=== PATIENT | female | born 1945 | race Caucasian/White ===

== ENCOUNTER 2017-12-09 14:17 | Emergency (ER) | payer MEDICARE, SELFPAY ==
[2017-12-09 14:19] VITALS: BP 162/78; PULSE 71; RESP 16; TEMP 36.1; O2SAT 98; BMI 29.1
[2017-12-09] MEDS: 0.9% Normal Saline 1,000 ML 1000 ML IV (14:34)
[2017-12-09] MEDS: Ondansetron 4 MG/2 ML Vial IV (14:35)
--- NOTE | 2017-12-09 15:16 | ED.DCSUM_ITS ---
- ER Visit Summary Date of Service: 12/09/17 Chief Complaint: Cramping abdominal pain with nausea History of Present Illness: The patient is a 72 F who states she developed abdominal cramping pain with nausea and vomiting ?1 Tuesday afternoon at work. She mixed chicken with pineapple in a sauce. Shortly after eating the chicken with pineapple she had cramping abdominal pain and vomited once. She states she remained nauseous the entire evening. she felt better had cottage cheese and bland foods. Today she felt better and went to work. When she had lunch she had increased nauseousness without vomiting. Last bowel movement was this morning and normal. She denies fever, chills night sweats. She denies dysuria, frequency, urgency or hematuria. She denies any cardiac or respiratory symptoms. Physical Examination: Blood pressure is elevated 162/78. HEENT exam is remarkable dry mucosa. Heart is regular without murmur, gallop or rub. S1 and S2 are normal. Lungs are clear to auscultation with good movement of air bilaterally. Abdomen soft nontender with no palpable pulsatile mass. There is no abdominal bruit. There is no skin lesions or evidence of trauma. There is no CVA tenderness noted. Neuro exam is nonfocal. Test Results: None Emergency Department Course and Treatment: IV was established and she was hydrated with normal saline. She was given Zofran for her nausea. She was reassessed at 07/15/2004. She reports improvement. She was given Bentyl for her cramping pain. She was reassessed at 1613. She is sitting up smiling in no distress. She is passed p.o. challenge. She reports her nausea and cramping pain is better. Treatment Plan: Prescription for Zofran and Bentyl Disposition: Discharged to home in stable and improved condition Impression: Cramping abdominal pain with nausea and vomiting This note was generated with [employer] dictation software. It may contain incorrect words, spelling, and punctuation that were not noted in review of the chart prior to signing ED Disposition - Plan for ED Patient: Disposition: Home or Assisted Living Chief Complaint: Abd Pain Instructions: ED Nausea Vomiting Prescriptions: Ondansetron [Zofran Odt] 4 mg PO Q8H PRN PRN #5 tab PRN Reason: Nausea Dicyclomine HCl [Bentyl] 20 mg PO TIDAC #10 cap Referrals: Care Physician,No Primary [Primary Care Provider] - Doctor,Your [STAFF PHYSICIAN] - 3-5 Days if not improving
[2017-12-09] MEDS: Dicyclomine 10 MG Capsule 20 MG PO (15:35)
[2017-12-09 16:42] VITALS: BP 154/86; PULSE 69; RESP 18; O2SAT 99
== END 2017-12-09 16:30 | disposition home or self-care (01) ==
PROVIDERS: Emergency Provider Emergency Medicine
DX: R10.9 Unspecified abdominal pain (principal); R11.2 Nausea with vomiting, unspecified; E66.9 Obesity, unspecified; E86.0 Dehydration; I10 Essential (primary) hypertension; E78.00 Pure hypercholesterolemia, unspecified; J44.9 Chronic obstructive pulmonary disease, unspecified; E03.9 Hypothyroidism, unspecified; Z68.29 Body mass index [BMI] 29.0-29.9, adult; Z79.899 Other long term (current) drug therapy
CPT/HCPCS: 96361; 96374; 99283; J7030; A4216; J2405

== ENCOUNTER → 2018-01-03 09:18 | Outpatient (CLI) | payer MEDICARE, OTHER, SELFPAY ==
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
== END ==
PROVIDERS: Visit Provider Anesthesiology Pain Medicine
DX: M54.2 Cervicalgia (principal)
CPT/HCPCS: 72040

== ENCOUNTER → 2018-02-28 13:08 | Outpatient (CLI) | payer MEDICARE, OTHER, SELFPAY ==
[2018-03-01 07:14] LABS: CREATININE FINGERSTICK 0.44 mg/dL (0.55-1.02)
== END ==
DX: R91.1 Solitary pulmonary nodule (principal)
CPT/HCPCS: 71260; Q9967

== ENCOUNTER 2018-03-13 18:09 | Emergency (ER) | payer MEDICARE, OTHER, SELFPAY ==
[2018-03-13 18:10] VITALS: BP 171/86; PULSE 75; RESP 18; TEMP 37.1; O2SAT 95; BMI 29.3
--- NOTE | 2018-03-13 18:28 | ED.VISSUMM ---
- ER Visit Summary Date of Service: 03/13/18 Chief Complaint: Bilateral ankle swelling History of Present Illness: The patient is a 72 F who has bilateral ankle swelling. She has had this for 3 days. 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 She used to wear ADRY hose but she think she is allergic to them so she has been wearing it. She has a rash on the lower parts of the legs were her socks were. She denies any chest pain or shortness of breath. She denies any history of any kidney problems in the past. Denies any fevers. She has been using hydrocortisone cream for the rash on her legs. She states that it is improving. Physical Examination: Vital signs reviewed. HEENT exam unremarkable. Heart is regular rate and rhythm without murmurs. Lungs are clear to auscultation. Abdomen is soft and nontender. Extremities reveal 1+ edema to the lower tibial area. Skin exam reveals areas of dermatitis around the ankles to the mid tibia area where the sock line demarcates the end. Neurologic exam normal. Test Results: [] Emergency Department Course and Treatment: The patient likely has edema from the heat as well as standing on her legs all day. I will give her 5 days of Lasix to help with the edema. She will keep her legs elevated and use ice. She will continue hydrocortisone cream. She was wondering what the substance was in the succinate her allergic. I told her that it is hard to tell when she needs to find a brand that will not irritate her skin. She will follow-up with her PCP next week Treatment Plan: [] Disposition: Discharge Impression: Pedal edema, dermatitis This note was generated with [employer] dictation software. It may contain incorrect words, spelling, and punctuation that were not noted in review of the chart prior to signing ED Disposition - Plan for ED Patient: Chief Complaint: Edema Referrals: [facility] Doctor,Out of [Primary Care Provider] -
--- NOTE | 2018-03-13 18:30 | ED.DEP ---
ED Disposition - Plan for ED Patient: Disposition: Home or Assisted Living Chief Complaint: Edema Instructions: ED Leg Swelling Bilateral Prescriptions: Furosemide [Lasix] 20 mg PO DAILY #4 tab Referrals: [facility] Doctor,Out of [Primary Care Provider] -
[2018-03-13] MEDS: Furosemide 20 MG Tablet PO (18:40)
== END 2018-03-13 18:59 | disposition home or self-care (01) ==
LOC: ED 18:52
PROVIDERS: Emergency Provider Emergency Medicine
DX: R60.9 Edema, unspecified (principal); L30.9 Dermatitis, unspecified; I10 Essential (primary) hypertension; E78.00 Pure hypercholesterolemia, unspecified; J45.909 Unspecified asthma, uncomplicated; E03.9 Hypothyroidism, unspecified
CPT/HCPCS: 99283

== ENCOUNTER 2018-07-18 12:35 | Outpatient (RCR) | payer MEDICARE, SELFPAY ==
--- NOTE | 2018-07-19 13:12 | HP.OTFCE_ITS ---
HP OT Functional Capacity Eval - Task Lift Floor (Occasional 1-33% of Day): 11 Floor (Frequent 34-66% of Day): Negligible Floor (Constant 67-100% of Day): Negligible Floor PDL: Sedentary Knee (Occasional 1-33% of Day): 11 Knee (Frequent 34-66% of Day): Negligible Knee (Constant 67-100% of Day): Negligible Knee PDL: Sedentary Waist (Occasional 1-33% of Day): 11 Waist (Frequent 34-66% of Day): Negligible Waist (Constant 67-100% of Day): Negligible Waist PDL: Sedentary Shoulder (Occasional 1-33% of Day): 11 Shoulder (Frequent 34-66% of Day): Negligible Shoulder (Constant 67-100% of Day): Negligible Shoulder PDL: Sedentary Overhead (Occasional 1-33% of Day): 6 Overhead (Frequent 34-66% of Day): Negligible Overhead (Constant 67-100% of Day): Negligible Overhead PDL: Sedentary Comments: Increased pain with all lifts lower back 04/19. - Work Activity/Posture Bending: Occasional Ability (1-33% of day) Squatting: Occasional Ability (1-33% of day) Kneeling: Occasional Ability (1-33% of day) Reaching out: Frequent Ability (34-66% of day) Reaching up: Frequent Ability (34-66% of day) Sitting: Frequent Ability (34-66% of day) Walking: Occasional Ability (1-33% of day) Standing: Occasional Ability (1-33% of day) - Reference Duration Sedentary Sedentary Light Light Light Medium Medium Medium Heavy Very Heavy Heavy Occasional (0-33% of day) Frequent (34-66% of day) Constant (67-100% of day) 10 # Negligible Negligible 15 # 8 # Negligible 20 # 10# Negli. 35 # 18 # 7 # 50 # 25 # 10 # 75 # 100 # >100 # 38 # 50 # >50 # 15 # 20 # >20 # - Patient Information Height: 5 ft 6 in Weight:: 77.111 kg Hand Dominance: Right - Medical History Medical History Including Restrictions: Pt states the following PMHx: spinal stenosis, unspecified bulged discs, HTN, high blood pressure, thyroid disorder, back sx lower back 2013, back spurs, arthritis in lower back, severe allergiess, asthma, bilateral carpel tunnel releases, pinched nerve in lower back. - Diagnoses Diagnoses: Pt states the following PMHx: spinal stenosis, lumbar bulged disc, HTN, high blood pressure, thyroid disorder, back sx lower back 2013, back spurs, arthritis in lower back, severe allergiess, asthma, bilateral carpel tunnel releases, pinched nerve in lower back. - Symptoms Symptoms: Pt reports: pain lower back aching, throbbing. - Pain Pain: Pt reports, lower back pain ranges from 8-10 . Pt states takes shots to decrease pain in lower back. Pt states has been taking shots to decrease pain in her lower back for years. Pt states takes pain pills 3x/day. - Work History Work History: Work history over the past 10 years= [employer] 2008-present. 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 She states she takes her breaks at the [employer] close to the doors where she works so she doesn't have to walk to the other end of the building where the break room is secondary to difficult and painful to walk all the way to the back without having to sit frequently to take pressure off her back. Pt works 3 days a wk. - ADLS ADLS: Pt lives alone in one [facility] ([facility]) apartment. No [address] eps to enter. Independent with BADLs/IADLs. Bathroom setup includes tub/shower combo, grab bars, HHS. RTS with handles. Drives. Laundry in different building, has to carry laundry basket short distance to building. Pt states uses small laundry basket and only carries smaller loads of laundry to laundromat. Pt states she completes all her meal prep and does her own cleaning, but it hurts her back to run sweeper and dust with extra time needed and many seated breaks needed. No animals to care for. - Physical Examination ROM: BUE WFL, BLE WFL Strength: BUE 4/5 BLE 3+/5, lower back pain 7/10 while completing BLE MMT. Right Gasoline Engine Assembler Strength Average: 47.00 Left Gasoline Engine Assembler Strength Average: 44.33 Right Lateral Pinch Average: 10.00 Left Lateral Pinch Average: 7.33 Right Tripod Pinch Average: 7.66 Left Tripod Pinch Average: 6.00 Sensation: Pt reports bilateral foot tingling ankles down to toes, gets worse around 5pm on daily. Fine Motor: No fine motor concerns per pt. Balance: No falls in the past three months. Pt reports has std canes, quad cane and walker avaialble if needed. Pt demo good righting reactions while standing during evaluation. No loss of balance noted. - Non Material Handling Activities Bending: Pt able to complete bending 3x, 10x with bending 7-8 inches from floor unable to bend all the way down to floor and unable to complete 10 fast seocndary to 9/10 pain lower back, pt had to sit after bending tasks. Squatting: Pt able to complete squats 3x and 5x holding onto desk for support with L hand. Pt increased pain to squat and unable to complete anymore squats secondary to pain in lower back. Kneeling: Pt able to complete partial kneeling 3x, 10x slow pace unable to bring knees down to floor, completed partial kneels while using R arm on desk for support. Declined to complete kneels 10x fast pace secondary to increased lower back pain. Reaching out/up: Pt able to reach out to left side while standing 3x, 10x, 10x fast without loss of balance or difficulty, pt able to reach out to right side while standing 3x, 10x, 10x fast without loss of balance or difficulty, pt able to reach up 3x, 10x, 10x fast pace while standing. Walking: Pt able to complete 2 minutes of the 15 minute walk test and had to sit secondary to pain. Pt states she can only walk short distances due to pain in lower back and has to sit frequently for only a short amount of time to take pressure off her back then she can get back up again. Standing: Pt only able to stand for 2-3 minutes at a time then had to sit. Sitting: Pt able to sit for 32 minutes without s/s of discomfort in beginning of evaluation. Climbing Stairs: Pt able to climb 5 steps up/down using one to two handrails unable to complete entire flight of steps secondary to pain. Had to take short seated rest break after steps due to lower back pain. - Dynamic Occasional Lifting Capacity Floor Lift: 11lb max Knee Lift: 11lb max Waist Lift: 11lb max Shoulder Lift: 11lb max Overhead Lift: 6lb max Carryinlb max Comments: Increased lower back pain with all lifts 10/10 pain.
== END 2018-07-18 19:00 | disposition home or self-care (01) ==
LOC: OT 12:35
PROVIDERS: Referring Provider Anesthesiology Pain Medicine; Visit Provider Anesthesiology Pain Medicine
DX: M54.9 Dorsalgia, unspecified (principal); M79.606 Pain in leg, unspecified
CPT/HCPCS: 97165; 97167

== ENCOUNTER 2018-09-04 08:52 | Emergency (ER) | payer MEDICARE, SELFPAY ==
[2018-09-04 08:53] VITALS: BP 117/59; PULSE 80; RESP 20; TEMP 37.4; O2SAT 96; BMI 29.2
--- NOTE | 2018-09-04 09:10 | RAD_ITS ---
STUDY: X-RAY CHEST REASON FOR EXAM: Female, 73 years old. Cough fever and headaches. TECHNIQUE: PA and lateral views of the chest. COMPARISON: Comparison is made with prior study dated June 02, 2016. FINDINGS: A loop recorder device is seen overlying the left cardiac border. Minimal increased markings are seen at the left lung base suggestive of atelectasis. Stable calcified old granulomatous disease. There is no demonstrated pleural abnormality. Normal size heart. Normal mediastinum and nasrin. Normal visualized pulmonary arteries. There is atherosclerotic calcification of the aortic arch with tortuosity. There are diffuse degenerative changes of the visualized thoracic spine. Normal visualized ribs, clavicles, and shoulders. There is no demonstrated abnormality of the visualized soft tissue structures of the upper abdomen. RAD/Chest PA and Lateral IMPRESSION: Mild increased markings at the left lung base suggestive of atelectasis. Electronically Signed: Gonzalo Jordan MD at 9:59 EST , Service support ,
--- NOTE | 2018-09-04 09:15 | ED.DCSUM_ITS ---
- ER Visit Summary Date of Service: 09/04/18 Chief Complaint: Sore throat and cough History of Present Illness: The patient is a 73 F 3 of hypothyroidism hypertension and asthma. Patient states since Tuesday she is had a sore throat and cough. States a proximal cough is productive but she has inspected the phlegm for color. She denies any nausea vomiting or diarrhea and she denies any fever. Physical Examination: Older female no acute distress. Vital signs are stable and afebrile. Temperature 994. Pulse ox 96% on room air no signs of hypoxia. HEENT exam moist weeks membranes. Posterior pharynx unremarkable. Neck nontender no lymphadenopathy. Lungs dry cough. No rales, rhonchi or wheezing. Equal and symmetrical. Heart regular rate and rhythm no murmur. Abdomen is soft and nontender. Normal bowel sounds no peritoneal signs. Patient is moving all 4 extremities. No edema. No cords. Neurologically she is awake and alert with no focal motor deficits. Back is nontender. Skin is unremarkable. Test Results: Chest x-ray 2 views show shows no acute abnormality read both of myself and the radiologist. Influenza screen was negative. Emergency Department Course and Treatment: Clinically looks good. Check a chest x-ray to evaluate for possible pneumonia and influenza screen. Patient doing well repeat exam at 10:14 AM. I went over test results of both her and the family. Treated symptomatically with Tylenol for fever. Fluids and rest. Follow-up if not improving or return if worse. Treatment Plan: Symptomatic treatment. Disposition: Discharge Impression: Viral respiratory infection This note was generated with [employer] dictation software. It may contain incorrect words, spelling, and punctuation that were not noted in review of the chart prior to signing ED Disposition - Plan for ED Patient: Referrals: [facility] Doctor,Out of [Primary Care Provider] -
--- NOTE | 2018-09-04 10:16 | ED.DEP ---
ED Disposition - Plan for ED Patient: Disposition: Home or Assisted Living Instructions: ED Upper Resp Infec No Abx Tx Referrals: [facility],Out of [Primary Care Provider] - 1 Week if not improving Additional Instructions: Plenty of fluids and rest. Tylenol for fever. Follow-up with your doctor if not improving return to ER feeling worse.
[2018-09-04 10:25] VITALS: PULSE 84; RESP 17; O2SAT 97
== END 2018-09-04 10:26 | disposition home or self-care (01) ==
PROVIDERS: Emergency Provider Emergency Medicine
DX: J06.9 Acute upper respiratory infection, unspecified (principal); I10 Essential (primary) hypertension; J45.909 Unspecified asthma, uncomplicated
CPT/HCPCS: 71046; 87804; 99282

== ENCOUNTER 2018-09-05 05:18 | Observation (INO) | payer MEDICARE, SELFPAY ==
[2018-09-04 08:53] VITALS: BMI 29.2
[2018-09-05] VITALS (17 sets, daily range): BP systolic 134–164; BP diastolic 55–98; PULSE 79–106; RESP 12–18; TEMP 36.6–37.3; O2SAT 96–100; BMI 29.8; BMI 29.2
--- NOTE | 2018-09-05 05:22 | RAD_ITS ---
STUDY: X-RAY CHEST REASON FOR EXAM: Female, 73 years old. Cough. TECHNIQUE: AP portable chest. COMPARISON: September 04, 2018. FINDINGS: The lungs are clear and expanded. There is no demonstrated pleural abnormality. Normal size heart. Normal mediastinum and nasrin. Normal visualized pulmonary arteries. Normal visualized aortic arch and descending thoracic aorta. special effects artist overlies left hemithorax. Normal visualized thoracic spine. Normal visualized ribs, clavicles, and shoulders. There is no demonstrated abnormality of the visualized soft tissue structures of the upper abdomen. RAD/Chest 1 View (Portable) IMPRESSION: No acute cardiopulmonary disease. Electronically Signed: Valdemar Perez MD at 6:18 EST , Service support ,
--- NOTE | 2018-09-05 05:22 | EKG12_ITS ---
Test Reason : SOB Blood Pressure : / mmHG Vent. Rate : 076 BPM Atrial Rate : 076 BPM P-R Int : 138 ms QRS Dur : 078 ms QT Int : 386 ms P-R-T Axes : 058 -18 034 degrees QTc Int : 434 ms Normal sinus rhythm Voltage criteria for left ventricular hypertrophy Nonspecific ST and T wave abnormality Abnormal ECG Confirmed by FELICIA SAUCEDA, CHERISE ([id number]), supervising editor news reel JOSEPH ESPINAL ([id number]) on 09/06/2018 10:10:22 AM Referred By: CLARITA Confirmed By:CHERISE DUARTE MD
--- NOTE | 2018-09-05 05:25 | ED.DCSUM_ITS ---
- ER Visit Summary Date of Service: 09/05/18 Chief Complaint: Cough, shortness of breath History of Present Illness: The patient is a 73 F with history of asthma who is not on oxygen at home presents to the emergency department with cough and shortness of breath. The patient was actually seen here yesterday morning. At that time, she was having scant cough and fever. She had an x-ray done. This was unremarkable. Her rapid flu was negative. Patient was counseled on supportive care. She states that since leaving, her shortness of breath is gotten worse. She feels like she cannot take a deep breath. She feels that she is having a difficult time getting around because of her dyspnea. She is been trying her inhalers with little improvement. She denies fevers. She has had some chest tightness. She cannot recall the last time that she was on prednisone for her breathing. She does not smoke. Physical Examination: Vital signs reviewed General: Well-nourished, well-developed Head: Normocephalic, atraumatic Eyes: Pupils equal and reactive, extraocular muscles intact Neck, supple, no lymphadenopathy Heart: Regular rate and rhythm Respiratory: No distress, diminished with end expiratory wheeze Abdomen: Soft, nontender, nondistended, no peritoneal signs Back: Nontender Extremities: Nontender, no edema, no cords Skin: Normal color no rash Neuro: Alert and oriented, no focal or lateralizing deficits Test Results: [] Emergency Department Course and Treatment: The patient symptoms do seem most consistent with an asthma exacerbation. She did have wheezing in all trivedi. IV was established. She was given fluids and Solu-Medrol. She was given nebulized breathing treatments. She still has persistent wheezing. The patient was more comfortable on oxygen. She states that she cannot ambulate without getting very short of breath and has been having chest tightness with this. I do feel that the patient will benefit from observation for continued breathing treatments and steroids. At this time, I do not see a clear indication for antibiotics. Patient was discussed with the hospitalist. Treatment Plan: [] Disposition: Admission Impression: 1. Acute asthma exacerbation with bronchospasm This note was generated with [employer] software. It may contain incorrect words, spelling, and punctuation that were not noted in review of the chart prior to signing ED Disposition - Plan for ED Patient: Referrals: [facility],Out of [Primary Care Provider] -
[2018-09-05] MEDS: Albuterol 2.5 MG/3 ML VIAL.NEB. INHALATION ×2 (05:31→05:40)
[2018-09-05] MEDS: Ipratropium/Albuterol Sulfate 3 ML AMPUL.NEB INHALATION ×4 (05:32→19:05)
[2018-09-05] MEDS: 0.9% Normal Saline 1,000 ML 150 ML IV (05:32)
[2018-09-05] MEDS: MethylPREDNISolone 125 MG/2 ML Vial IV (05:33)
[2018-09-05 05:42] LABS: Absolute Lymphocyte Count 0.58 X10^3/ul (0.83-4.51); Basophil# 0.02 X10^3/uL; Basophil% 0.3 % (0-1); Hematocrit 39.6 % (37-47); Lymphocyte # 0.58 X10^3/ul (4.0); Lymphocyte % 8.8 % (19-41); Mean Corp Hgb Conc 32.8 g/gl (32-36); Mean Corpuscular Hgb 33.9 pg (27.0-32.0); Mean Corpuscular Volume 103.4 fL (81-99); Mean Platelet Vol. 10.6 fl (6.2-12.0); Monocyte# 0.97 X10^3/uL; Monocyte% 14.7 % (0-10); Neutrophil % 75.9 % (47-70); Platelet Count 183 K/mm3 (150-450); RBC Distribution Width CV 12.9 % (11.6-14.6); RBC Distribution Width SD 48.2 fl (35.1-43.9); Red Blood Count 3.83 M/mm3 (4.2-5.4); White Blood Count 6.6 K/mm3 (4.4-11.0)
[2018-09-05 05:50] LABS: Differential Indicated SCAN CRITERIA MET; POSITIVE COUNT NO; POSITIVE DIFFERENTIAL YES; POSITIVE MORPHOLOGY NO
[2018-09-05 06:03] LABS: Anion Gap 11 (5-15); BUN 10 mg/dL (7-18); BUN/Creat Ratio 15.2 RATIO (10-20); Calcium,Total 8.2 mg/dL (8.5-10.1); Chloride 97 mmol/L (98-107); Creatinine, Serum 0.66 mg/dL (0.55-1.02); EST Glomerular Filtration Rate 93 mL/min (>60); Est Glom Filt Rate - Afr Amer 113 mL/min (>60); Estimated Creatinine Clearance 41.97 ml/min; Glucose 136 mg/dL (74-106); Potassium 3.7 mmol/L (3.5-5.1); Sodium Level 133 mmol/L (136-145)
--- NOTE | 2018-09-05 06:09 | PCM.HP.STD ---
Problem List (1) Acute asthma exacerbation Status: Acute History of Present Illness Date of Admission: 09/05/18 Chief Complaint: shortness of breath The patient is a 73 year old F with a significant history of asthma; hypothyroidism; seasonal allergies; hyperlipidemia; chronic back pain; arrhythmias and hypertension who presented to the emergency department because of progressively worsening shortness of breath that started 2 days ago. Patient was in the emergency department a day before presentation and was discharged with a diagnosis of viral illness. Associated with her symptoms is a congested cough with inability to expectorate. Because she has thick mucus she is unable to inhale her home Qvar. She reports chills. Associated with her symptoms is wheezing. The emergency department doctor on current visit reported that patient was wheezing. Influenza screen on a previous ED visits on 08/25/2018 was negative. Past Medical History Past Medical History (Chronic Problems): Chronic Problems Seasonal allergies (Chronic) Chronic low back pain (Chronic) Hypothyroidism (Chronic) HLD (hyperlipidemia) (Chronic) Benign hypertension (Chronic) Allergies acetaminophen [From Tylenol-Codeine #3] Allergy (Verified 09/04/18 08:54) Nausea codeine phosphate [From Tylenol-Codeine #3] Allergy (Verified 09/04/18 08:54) Nausea Home Medications: Ambulatory Orders Medication Instructions Recorded Montelukast [Singulair] 10 mg PO DAILY 07/12/14 Levothyroxine [Synthroid] 100 mcg PO DAILY 06/02/16 Metoprolol Tartrate [Lopressor 50 mg PO DAILY 06/02/16 (Beta Altaf)] Pravastatin Sodium 80 mg PO DAILY 09/26/16 Ascorbic Acid [Vitamin C] 500 mg PO DAILY@0800 05/06/17 Cetirizine HCl [Allergy Relief] 10 mg PO DAILY 05/06/17 Amlodipine [Norvasc] 5 mg PO DAILY 09/04/18 Gabapentin [Neurontin] 300 mg PO QHS 09/04/18 Hydrocodone/Acetaminophen 1 each PO DAILY 09/04/18 [Hydrocodon-Acetaminoph 7.5-325] Losartan Potassium [Cozaar] 75 mg PO DAILY 09/04/18 Omeprazole [Prilosec] 20 mg PO DAILY 09/04/18 Surgical History: appendectomy, hysterectomy, tonsillectomy Lives: Alone Smoking Status: Never smoker Alcohol: None - *Family History Maternal History Items: Heart Disease Paternal History Items: Heart Disease Review of Systems Constitutional: Reports: Chills. Denies: Fever, Weight Change HEENT: Denies: Head Aches, Sinus Congestion, Sinus Drainage Cardiovascular: Denies: Chest Pain, Palpitations Respiratory: Reports: Cough, Shortness of breath at rest. Denies: Sputum production Gastrointestinal: Reports: Abdominal Pain, Nausea. Denies: Vomiting Genitourinary: Denies: Dysuria Musculoskeletal: Denies: Joint Pain, Joint Tenderness Skin: Denies: Rash, Wounds Neurological: Denies: Numbness, Tingling, Focal weakness Psychiatric: Denies: Anxiety, Depression, Homicidal Ideations, Suicidal Ideations Hematologic/ Lymphatic: Denies: Easy Bruising, Easy Bleeding VTE Information - Inpt Only VTE Present on Admission: No VTE Mechan Device Prophylaxis: None VTE Pharm Prophylaxis ordered?: Yes Patient Problems: Active and Suspected Problems Acute asthma exacerbation (Acute) - Physical Exam General: Alert, Oriented x3, Cooperative HEENT: Atraumatic, PERRLA, EOMI, Normocephalic Neck: Supple, No JVD, Negative Carotid Bruits Lungs: Diminished Cardiovascular: Regular rate, No murmurs Abdomen: Bowel Sounds Present, Soft, Non Tender Extremities: No edema, Capillary Refill Less than 3 Seconds Skin: No rashes, No breakdown Musculoskeletal: No Tenderness to Palpation of Joints or Extremities Neurological: Neuro grossly intact Psych/Mental Status: Anxious Vital Signs Temp Pulse Resp Pulse Ox 97.8 F 95 12 96 09/05/18 05:19 09/05/18 05:40 09/05/18 05:40 09/05/18 05:19 Oxygen Delivery Method Room Air Weight: 78.8 kg Body Mass Index (BMI) 29.8 Finger Stick Blood Glucose 135 Laboratory Tests Past 24 Hrs 09/05/18 09/05/18 05:28 05:28 WBC 6.6 RBC 3.83 L Hgb 13.0 Hct 39.6 MCV 103.4 H MCH 33.9 H MCHC 32.8 RDW 12.9 RDW Differential 48.2 H Plt Count 183 MPV 10.6 Immature Gran % (Auto) 0.300 Neut % (Auto) 75.9 H Lymph % (Auto) 8.8 L [place] % (Auto) 14.7 H Eos % (Auto) 0.0 Baso % (Auto) 0.3 Absolute Neuts (auto) 5.0 Absolute Lymphs (auto) 0.58 L Total Counted Pending Sodium 133 L Potassium 3.7 Chloride 97 L Carbon Dioxide 25.0 Anion Gap 11 BUN 10 Creatinine 0.66 Estim Creat Clear Calc 41.97 Est GFR (MDRD) Af Amer 113 Est GFR (MDRD) Non-Af 93 BUN/Creatinine Ratio 15.2 Glucose 136 H Calcium 8.2 L Troponin I < 0.015 Assessment/Plan All Active Problems Acute asthma exacerbation (Acute) The patient is a 73 year old F with a significant history of asthma; hypothyroidism; seasonal allergies; hyperlipidemia; chronic back pain; arrhythmias and hypertension who presented to the emergency department because of progressively worsening shortness of breath consistent with likely asthma exacerbation. Asthma exacerbation CXR independently reviewed confirms no acute cardia pulmonary disease. Old records reviewed showed that influenza screen on 09/04/2018 at the emergency department was unremarkable. Scheduled DuoNeb Albuterol as needed Received Solu-Medrol 25 mg at the ED. We will continue Solu-Medrol. Mucinex ordered oxygen as needed Receive maintenance IV normal saline at emergency department. Because of chest congestion with difficulty to expectorate we will continue IV maintenance infusion. Seasonal allergies Cetirizine continued Hypertension On presentation her blood pressure was not within goal. Amlodipine: Losartan and metoprolol continued Given hydralazine ordered Dysrhythmia Patient has an implanted loop recorder which she says is not working. At this time will place on MedSur with telemetry GERD Prilosec continued Hypo-thyroidism Synthroid continue Chronic back pain: [place] and Neurontin continued Hyperlipidemia: pravastatin continued DVT prophylaxis Subcutaneous Lovenox ordered Code Visit OBSV E&M: 54995 Initial observation care L3
--- NOTE | 2018-09-05 06:45 | NURSING ---
[address] CROWE ASTHMA EXAC
[2018-09-05] MEDS: 0.9% Normal Saline 1,000 ML 100 ML IV (07:47)
[2018-09-05] MEDS: Levothyroxine 100 MCG Tablet PO (09:07)
[2018-09-05] MEDS: amLODIPine 5 MG Tablet PO (09:07)
[2018-09-05] MEDS: Enoxaparin 40 MG/0.4 ML Syringe SC (09:07)
[2018-09-05] MEDS: guaiFENesin 1,200 MG Tablet 1200 MG PO ×2 (09:07→21:52)
[2018-09-05] MEDS: Ascorbic Acid 500 MG Tablet PO (09:07)
[2018-09-05] MEDS: Losartan Potassium 25 MG Tablet 75 MG PO (10:14)
[2018-09-05] MEDS: Loratadine 10 MG Tablet PO (10:14)
[2018-09-05] MEDS: Pantoprazole Sodium 20 MG Tablet PO (10:15)
[2018-09-05] MEDS: Montelukast 10 MG Tablet PO (10:15)
[2018-09-05] MEDS: Metoprolol(XL)Succ 50 MG Tablet PO (10:36)
--- NOTE | 2018-09-05 12:25 | PCM.PROGNOTE ---
Patient Problems: Active and Suspected Problems Acute asthma exacerbation (Acute) Subjective: The patient is a 73-year-old female with a past medical history of asthma, hypothyroidism, seasonal allergies, hyperlipidemia, chronic back pain(on Gabapentin 300 mg at HS and also [place] TID), arrhythmias and hypertension who presented to the emergency department on 09/03/2018 with complaints of scant cough and fever. She had a chest x-ray at that time that were showed no infiltrates, pleural effusions or pulmonary vascular congestion. Rapid flu was negative and she was discharged home. She returned to the emergency department at [facility] on 09/05/2018 stating her shortness of breath had increased and she felt as though she could not take a deep breath. On physical examination by the emergency room physician the breath sounds were diminished with expiratory wheezing. She was treated with IV steroids and aerosolized bronchodilators and the hospitalist was called for admission. No signs of presentation to the emergency room were temperature 97.8, pulse rate 81, respiratory rate 14 and she was 96% saturated on room air. White blood cell count was normal at 6.6 and there were 76% neutrophils. Hemoglobin and platelets were within normal limits. Sodium was low at 133 and the BUN was 10 with a creatinine of 0.66. Troponin was less than 0.015. Chest x-ray once again showed no acute cardiopulmonary disease. She was admitted to the hospital for observations. Afebrile since admission Respiratory panel is pending 96-97% saturated on room air Respiratory panel is positive for influenza A, subtype H1 she is not having vomiting although she continues to c/o some mild nausea no chest pain - Physical Exam General: Alert, Oriented x3, Cooperative, Well developed, Well nourished, - - appears fatigued and ill HEENT: Atraumatic, PERRLA, EOMI, Normocephalic Oral: Dry Mucosa Neck: Supple, No Nodes Lungs: Clear to auscultation, Normal air movement, No rhonchi, No wheeze, No rales Cardiovascular: Regular rate, Regular Rhythm, Normal S1, Normal S2, No Gallop Abdomen: Bowel Sounds Present, Soft, Non Tender, Non-Distended Extremities: No clubbing, No cyanosis, No edema Skin: No rashes Neurological: Cranial nerves II-XII grossly intact, Neuro grossly intact Psych/Mental Status: Normal Affect, Appropriate Vital Signs Temp Pulse Resp BP Pulse Ox 97.9 F 106 H 16 162/83 H 97 09/05/18 11:23 09/05/18 11:23 09/05/18 11:23 09/05/18 11:23 09/05/18 11:23 Oxygen Flow Rate (L/min) 2 Oxygen Delivery Method Room Air Weight: 170 lb Body Mass Index (BMI) 29.2 Finger Stick Blood Glucose 135 Intake and Output for Last 24 Hours 09/03/18 09/04/18 09/05/18 23:59 23:59 23:59 Intake Total 1585 / 1585 Balance 1585 / 1585 Laboratory Tests Past 24 Hrs 09/05/18 09/05/18 05:28 05:28 WBC 6.6 RBC 3.83 L Hgb 13.0 Hct 39.6 MCV 103.4 H MCH 33.9 H MCHC 32.8 RDW 12.9 RDW Differential 48.2 H Plt Count 183 MPV 10.6 Immature Gran % (Auto) 0.300 Neut % (Auto) 75.9 H Lymph % (Auto) 8.8 L [place] % (Auto) 14.7 H Eos % (Auto) 0.0 Baso % (Auto) 0.3 Absolute Neuts (auto) 5.0 Absolute Lymphs (auto) 0.58 L Total Counted Not Reportable Sodium 133 L Potassium 3.7 Chloride 97 L Carbon Dioxide 25.0 Anion Gap 11 BUN 10 Creatinine 0.66 Estim Creat Clear Calc 41.97 Est GFR (MDRD) Af Amer 113 Est GFR (MDRD) Non-Af 93 BUN/Creatinine Ratio 15.2 Glucose 136 H Calcium 8.2 L Troponin I < 0.015 Medical Necessity - Tobacco Use Smoking Status: Never smoker Assessment/Plan All Active Problems Acute asthma exacerbation (Acute) Impressions 1. Viral URI secondary to influenza A 2. Acute exacerbation asthma secondary to viral URI Continue current orders Ambulatory pulse ox on room air prior to discharge Has been started on Tamiflu
[2018-09-05] MEDS: HYDROcodone Bitartrate/Apap 5/325 Tablet PO (12:55)
[2018-09-05] MEDS: Gabapentin 300 MG Capsule PO (21:52)
[2018-09-05] MEDS: Pravastatin 80 MG Tablet PO (21:52)
[2018-09-05] MEDS: 0.9% NaCl Peripheral Flush Adult/Peds IV (21:53)
[2018-09-05] MEDS: Oseltamivir Phosphate 30 MG Capsule PO (21:54)
[2018-09-06] VITALS (12 sets, daily range): BP systolic 125–153; BP diastolic 57–85; PULSE 61–82; RESP 11–18; TEMP 36.5–36.7; O2SAT 96–97
[2018-09-06] MEDS: 0.9% NaCl Peripheral Flush Adult/Peds IV ×2 (02:10→05:33)
[2018-09-06] MEDS: Ondansetron 4 MG/2 ML Vial IV (02:11)
[2018-09-06] MEDS: Levothyroxine 100 MCG Tablet PO (05:30)
[2018-09-06] MEDS: HYDROcodone Bitartrate/Apap 5/325 Tablet PO ×2 (05:30→14:26)
[2018-09-06] MEDS: Ipratropium/Albuterol Sulfate 3 ML AMPUL.NEB INHALATION ×2 (07:14→15:13)
[2018-09-06] MEDS: Loratadine 10 MG Tablet PO (09:54)
[2018-09-06] MEDS: Montelukast 10 MG Tablet PO (09:54)
[2018-09-06] MEDS: amLODIPine 5 MG Tablet PO (09:55)
[2018-09-06] MEDS: Metoprolol(XL)Succ 50 MG Tablet PO (09:55)
[2018-09-06] MEDS: Losartan Potassium 25 MG Tablet 75 MG PO (09:55)
[2018-09-06] MEDS: Ascorbic Acid 500 MG Tablet PO (09:55)
[2018-09-06] MEDS: Oseltamivir Phosphate 30 MG Capsule PO (09:55)
[2018-09-06] MEDS: Enoxaparin 40 MG/0.4 ML Syringe SC (09:55)
[2018-09-06] MEDS: guaiFENesin 1,200 MG Tablet 1200 MG PO (09:55)
[2018-09-06] MEDS: Pantoprazole Sodium 20 MG Tablet PO (09:56)
--- NOTE | 2018-09-06 14:37 | DCINST_ITS ---
- Discharge Diagnoses Current Active Problems: Current Active and Chronic Problems Acute asthma exacerbation (Acute) You will use the following diet at home:: Other - Resume previous diet Your food should be the consistency of: Regular Your liquids should be the consistency of: Regular/Thin Discharge Activity: - - Avoid exposure to any strong smells such as bleach, cleaning products, strong colognes or perfumes, paint fumes and smoke of any kind. Avoid sudden exposure to cold air because this can cause bronchospasm. You may want to cover your mouth when you go outside in the winter. Avoid exposure to anyone who is sick with a cough or sore throat. Return to work on:: 09/16/18 Call your doctor if you observe: Fever of 101 or Higher, Shortness of breath, Dizziness, Chest pain, - - increased cough, increasing shortness of breath Instructions: Preventing Common Respiratory Infections, Influenza Additional Instructions: 1. You have Influenza A and this is a viral infection. You have been started on an antiviral called Tamiflu. You have had 2 doses and will need to take 8 more doses......you take this medication twice a day until gone. 2. I recommend you use the Albuterol Aerosols every 4 hours while awake for the next 3-4 days and then change to every 4 hours as needed. If any fevers of 101 or greater mark if there has been an increase in the cough or a change in the character of the sputum call your PCP or return to the ED. It is not uncommon for people to develop a bacterial pneumonia after they have had the Fl u. 3. Get plenty of rest over the next week. After the next 4 days you will no longer be contagious. 4. OK to take Tylenol for low grade fevers. 3. OK to restart the QVAR inhaler. 4. Pending Tests on Discharge: none Allergies/Adverse Reactions: Allergies acetaminophen [From Tylenol-Codeine #3] Allergy (Verified 09/04/18 08:54) Nausea codeine phosphate [From Tylenol-Codeine #3] Allergy (Verified 09/04/18 08:54) Nausea Medications to take at Discharge Montelukast [Singulair] 10 mg PO DAILY 07/12/14 Levothyroxine [Synthroid] 100 mcg PO DAILY 06/02/16 Pravastatin Sodium 80 mg PO QHS 09/26/16 Ascorbic Acid [Vitamin C] 500 mg PO DAILY@0800 05/06/17 Cetirizine HCl [Allergy Relief] 10 mg PO DAILY 05/06/17 Amlodipine [Norvasc] 5 mg PO DAILY 09/04/18 Gabapentin [Neurontin] 300 mg PO QHS 09/04/18 Hydrocodone/Acetaminophen [Hydrocodone-Acetamin 7.5-325] 1 each PO TID 09/04/18 Losartan Potassium [Cozaar] 75 mg PO DAILY 09/04/18 Omeprazole [Prilosec] 20 mg PO DAILY 09/04/18 Metoprolol Succinate [Toprol Xl] 50 mg PO DAILY 09/05/18 Oseltamivir Phosphate [Tamiflu] 30 mg PO BID #8 capsule 09/06/18 The following prescriptions were given: Oseltamivir Phosphate [Tamiflu] 30 mg PO BID #8 capsule Primary Care Physician: [facility] Doctor,Out of [Primary Care Provider] - Please follow up with your Primary Care Physician in: 1 week Test Results: Test results from this visit will be discussed in further detail at your follow- up appointment, if applicable. Proposed Discharge Date: 09/06/18
--- NOTE | 2018-09-06 14:46 | NURSING ---
reviewed student nurse Carmen's charting for learning educational purposes by rahul walsh
--- NOTE | 2018-09-06 15:00 | DS.PCM_ITS ---
Discharge Date and Diagnosis - Problem List Patient Problems: Active and Suspected Problems Hyponatremia (Acute) Acute bronchitis (Acute) Influenza A virus subtype H1 present (Acute) Acute asthma exacerbation (Acute) Date of Admission: 09/05/18 Date of Discharge: 09/06/18 - Primary Discharge Diagnosis Active and Suspected Problems Acute viral bronchitis (Acute) Influenza A virus subtype H1 present (Acute) Acute asthma exacerbation (Acute) Hyponatremia (Acute) - Secondary Discharge Diagnosis Chronic Problems Seasonal allergies (Chronic) Chronic low back pain (Chronic) Hypothyroidism (Chronic) HLD (hyperlipidemia) (Chronic) Benign hypertension (Chronic) Hospital Course and Treatment Imaging Results: Clinical Impression(s) from Imaging Studies Chest X-Ray 09/05/18 05:22 IMPRESSION: No acute cardiopulmonary disease. Electronically Signed: Valdemar Perez MD at 6:18 EST , Service support , Microbiology 09/05/18 10:44 Mucosa - Nasopharyngeal Respiratory Panel (PCR) - Final Influenza A (Subtype H1) none Operations: None Procedures: None Summary of Care Provided: The patient is a 73-year-old female with a past medical history of asthma, hypothyroidism, seasonal allergies, hyperlipidemia, chronic back pain(on Gabapentin 300 mg at HS and also [place] TID), arrhythmias and hypertension who presented to the emergency department at [facility] on 09/03/2018 with complaints of cough and fever. She had a chest x-ray that showed no infiltrates, pleural effusions or pulmonary vascular congestion. Rapid flu was negative and she was discharged home. She returned to the emergency department at [facility] on 09/05/2018 stating her shortness of breath had increased and she felt as though she could not take a deep breath. On physical examination by the emergency room physician the breath sounds were diminished with expiratory wheezing. She was treated with IV steroids and aerosolized bronchodilators and the hospitalist was called for admission. Vital signs at presentation to the emergency room were temperature 97.8, pulse rate 81, respiratory rate 14 and she was 96% saturated on room air. White blood cell count was normal at 6.6 and there were 76% neutrophils. Hemoglobin and platelets were within normal limits. Sodium was low at 133 and the BUN was 10 with a creatinine of 0.66. Troponin was less than 0.015. Chest x-ray on 09/05 once again showed no acute cardiopulmonary disease. She was admitted to the hospital for observation and started on IV steroids, aerosolized bronchodilators and IV fluids. A respiratory panel was + for Influenza A subtype H1. She was started on On 09/06/2018 she was afebrile with stable vital signs. The pulse ox on room air was 97%. She denied chest pain and also denied shortness of breath. She had been seen by physical therapy and did well. When I entered her room she was standing up and doing exercises. She was discharged home with prescriptions for Prednisone and Tamiflu. She will use albuterol aerosols every 4 hours while awake for the next 3-4 days and then PRN. She will resume QVAR and Montelukast. she was instructed to stay home from work for 1 week and to follow up with her PCP the end of next week. - Physical Exam General: Alert, Oriented x3, Cooperative, Well developed, Well nourished, looks much better than at admission HEENT: Atraumatic, PERRLA, EOMI, Normocephalic Oral: Moist Mucosa Neck: Supple, No Nodes Lungs: Clear to auscultation, better air movement, No rhonchi, No wheeze, No rales Cardiovascular: Regular rate, Regular Rhythm, Normal S1, Normal S2, No Gallop Abdomen: Bowel Sounds Present, Soft, Non Tender, Non-Distended Extremities: No clubbing, No cyanosis, No edema Skin: No rashes Neurological: Cranial nerves II-XII grossly intact, Neuro grossly intact Psych/Mental Status: Normal Affect, Appropriate This note was generated with [employer]igg[employer] dictation software. It may contain incorrect words, spelling, and punctuation that were not noted in checking the note before signing. Patient Problems: Active and Suspected Problems Hyponatremia (Acute) Acute bronchitis (Acute) Influenza A virus subtype H1 present (Acute) Acute asthma exacerbation (Acute) - Physical Exam Vital Signs Temp Pulse Resp BP Pulse Ox 97.7 F L 78 12 140/72 H 97 09/06/18 13:21 09/06/18 13:21 09/06/18 13:21 09/06/18 13:21 09/06/18 13:21 Oxygen Flow Rate (L/min) 2 Oxygen Delivery Method Room Air Weight: 170 lb Body Mass Index (BMI) 29.2 Finger Stick Blood Glucose 135 Intake and Output for Last 24 Hours 09/04/18 09/05/18 09/06/18 23:59 23:59 23:59 Intake Total 1934 1610 / 1610 Output Total 0 / 0 Balance 1934 1610 / 1610 Microbiology Past 72 Hours 09/05/18 10:44 Respiratory Panel (PCR) - Final Mucosa - Nasopharyngeal Influenza A (Subtype H1) Discharge Activity: - - Avoid exposure to any strong smells such as bleach, cleaning products, strong colognes or perfumes, paint fumes and smoke of any kind. Avoid sudden exposure to cold air because this can cause bronchospasm. You may want to cover your mouth when you go outside in the winter. Avoid exposure to anyone who is sick with a cough or sore throat. Return to work on:: 09/16/18 Call your doctor if you observe: Fever of 101 or Higher, Shortness of breath, Dizziness, Chest pain, - - increased cough, increasing shortness of breath Home Medications: Medications to take at Discharge Montelukast [Singulair] 10 mg PO DAILY 07/12/14 Levothyroxine [Synthroid] 100 mcg PO DAILY 06/02/16 Pravastatin Sodium 80 mg PO QHS 09/26/16 Ascorbic Acid [Vitamin C] 500 mg PO DAILY@0800 05/06/17 Cetirizine HCl [Allergy Relief] 10 mg PO DAILY 05/06/17 Amlodipine [Norvasc] 5 mg PO DAILY 09/04/18 Gabapentin [Neurontin] 300 mg PO QHS 09/04/18 Hydrocodone/Acetaminophen [Hydrocodone-Acetamin 7.5-325] 1 each PO TID 09/04/18 Losartan Potassium [Cozaar] 75 mg PO DAILY 09/04/18 Omeprazole [Prilosec] 20 mg PO DAILY 09/04/18 Metoprolol Succinate [Toprol Xl] 50 mg PO DAILY 09/05/18 Oseltamivir Phosphate [Tamiflu] 30 mg PO BID #8 capsule 09/06/18 Prednisone 10 mg PO UD #30 tab 09/06/18 Following Prescrptions Were Given to Patient: Prednisone 10 mg PO UD #30 tab Oseltamivir Phosphate [Tamiflu] 30 mg PO BID #8 capsule Primary Care Physician: [facility] Doctor,Out of [Primary Care Provider] - Please follow up with your Primary Care Physician in: 1 week Patient Instructions: Preventing Common Respiratory Infections, Influenza Disposition: Home Minutes spent on discharge:: 30 Patient Condition:: Good Medical Necessity - Tobacco Use Smoking Status: Never smoker Tobacco Use: Non-smoker Meaningful Use Info Meaningful Use Diagnoses (Choose all that apply): None applicable Code Visit OBSV E&M: 41657 Observation care discharge
== END 2018-09-06 16:06 | disposition home or self-care (01) ==
LOC: ED 05:42 → MS3 06:53
PROVIDERS: Admitting Provider Hospitalist; Emergency Provider Emergency Medicine; Visit Provider Internal Medicine
DX: J10.1 Influenza due to other identified influenza virus with other respiratory manifestations (principal); J45.901 Unspecified asthma with (acute) exacerbation; Z23 Encounter for immunization; E03.9 Hypothyroidism, unspecified; E78.5 Hyperlipidemia, unspecified; G89.29 Other chronic pain; M54.9 Dorsalgia, unspecified; I10 Essential (primary) hypertension; I49.9 Cardiac arrhythmia, unspecified; Z79.899 Other long term (current) drug therapy; K21.9 Gastro-esophageal reflux disease without esophagitis; E87.1 Hypo-osmolality and hyponatremia; R94.31 Abnormal electrocardiogram [ECG] [EKG]
CPT/HCPCS: 71045; 80048; 84484; 85025; 87633; 93005; 94640; 96361; 96372; 96374; 96375; 96376; 97162; 97165; 97530; 99218; 99281; J7030; 90686; A4216; G0378; J2405

== ENCOUNTER → 2018-11-27 08:59 | Outpatient (CLI) | payer MEDICARE, SELFPAY ==
[2018-09-05 07:30] VITALS: BMI 29.2
[2018-11-27 10:10] LABS: Amphetamine Urine VISTA NEGATIVE (<1000 ng/mL); Barbiturate Urine VISTA NEGATIVE (< 200 ng/mL); Benzodiazepine Urine VISTA NEGATIVE (< 200 ng/mL); Cocaine Urine VISTA NEGATIVE (< 300 ng/mL); Ecstacy Urine VISTA NEGATIVE (< 500 ng/mL); Methadone Urine VISTA NEGATIVE (< 300 ng/mL); PCP Urine VISTA NEGATIVE (< 25 ng/mL); THC Urine VISTA NEGATIVE (< 50 ng/mL)
[2018-11-27 10:39] LABS: Vista UDS pH Range 6
== END ==
PROVIDERS: Referring Provider Anesthesiology Pain Medicine; Visit Provider Anesthesiology Pain Medicine
DX: F11.20 Opioid dependence, uncomplicated (principal)
CPT/HCPCS: 80307

== ENCOUNTER → 2019-01-01 09:51 | Outpatient (CLI) | payer MEDICARE, SELFPAY ==
[2018-09-05 07:30] VITALS: BMI 29.2
--- NOTE | 2019-01-01 09:57 | RAD_ITS ---
STUDY: X-RAY - LUMBAR SPINE REASON FOR EXAM: Female, 73 years old. Back pain radiating to both lower extremities. No known injury. TECHNIQUE: 3 view(s) of the lumbar spine were obtained. COMPARISON: None FINDINGS: Generalized osteopenia. Normal lumbar lordosis. There is no substantial scoliosis. There is a normal alignment of the vertebrae. Laminectomy changes at L4-5. Diffuse intervertebral disc space narrowing most marked L2-3, L3-4 and L5-S1 with osteophyte formation. Diffuse facet sclerosis. Marked vascular calcification. RAD/Lumbar Spine 2 or 3 Views IMPRESSION: Postsurgical changes with lumbar spondylosis as described. No acute finding. Electronically Signed: Shivam Strickland MD at 11:15 EDT , Service support ,
--- NOTE | 2019-01-12 14:49 | NURSING ---
attempted f/u phone call; message left with call back number.
== END ==
PROVIDERS: Referring Provider Anesthesiology Pain Medicine; Visit Provider Anesthesiology Pain Medicine
DX: M54.9 Dorsalgia, unspecified (principal)
CPT/HCPCS: 72100

== ENCOUNTER → 2019-02-20 15:13 | Outpatient (CLI) | payer MEDICARE, SELFPAY ==
[2018-09-05 07:30] VITALS: BMI 29.2
--- NOTE | 2019-02-20 15:17 | BI_ITS ---
MAMMOGRAPHY - BILATERAL SCREENING 3-D TOMOSYNTHESIS REASON FOR EXAM: Female, 73 years old. Bilateral Screening 3-D tomosynthesis PERTINENT HISTORY: No significant family history. TECHNIQUE: 2-D mammograms and 3-D Tomosynthesis of the breast (s) were performed. CAD was performed. COMPARISON: 04/06/2016, and 02/13/2015 FINDINGS: The breast composition is composed of scattered fibroglandular density. A medical technologist is noted on the left side obscuring portion of the breast parenchyma in the upper portion. Scattered benign calcifications are seen. No dense spiculated masses or suspicious microcalcifications are identified. No architectural distortion is identified. There is no skin thickening or retraction. There has been no significant change since the prior study. BI/SCREEN MAMM (CAD) W/WILL BILAT IMPRESSION: No mammographic signs of malignancy. Routine yearly mammograms recommended. ASSESSMENT CATEGORY: BIRADS Category 2: Benign. A letter regarding these results will be sent to the patient by the facility within 30 days. FOLLOW UP RECOMMENDATION: Yearly follow up mammogram recommended. (A) Approximately 10% of breast cancers are not detected by mammography. A normal mammogram should not delay biopsy of a clinically suspicious abnormality. Electronically Signed: Yordan Dugan MD at 11:16 EDT Tel [phone], Service support ,
== END ==
DX: Z12.31 Encounter for screening mammogram for malignant neoplasm of breast (principal)
CPT/HCPCS: 77063; 77067

== ENCOUNTER → 2019-03-06 08:04 | Outpatient (CLI) | payer MEDICARE, SELFPAY ==
[2018-09-05 07:30] VITALS: BMI 29.2
[2019-03-06 08:46] LABS: Mucous, Urine 0 SEEN /hpf (<or=2+); Red Blood Cells-Urine 0 SEEN /hpf (0-5)
[2019-03-06 09:33] LABS: Absolute Lymphocyte Count 1.86 X10^3/uL (0.83-4.51); Absolute Neutrophil Count 4.6 X10^3/uL (2.0-7.7); Basophil# 0.07 X10^3/uL; Basophil% 0.9 % (0-1); Eosinophil# 0.17 X10^3/uL; Eosinophils% 2.3 % (0-5); Hematocrit 41.2 % (37-47); Hemoglobin 13.8 g/dL (12.0-15.0); Lymphocyte # 1.86 X10^3/ul (4.0); Lymphocyte % 24.9 % (19-41); Mean Corp Hgb Conc 33.5 g/dL (32-36); Mean Corpuscular Volume 104.6 fL (81-99); Monocyte# 0.75 X10^3/uL; Monocyte% 10.1 % (0-10); NRBC Flagged by Analyzer 0 % (0-5); Neutrophil # 4.58 X10^3/uL (2.7-7.7); Neutrophil % 61.4 % (47-70); Platelet Count 233 K/mm3 (150-450); RBC Distribution Width CV 12.7 % (11.6-14.6); RBC Distribution Width SD 48.7 fl (35.1-43.9); Red Blood Count 3.94 M/mm3 (4.2-5.4); White Blood Count 7.5 K/mm3 (4.4-11.0)
[2019-03-06 09:35] LABS: Color, Urine Yellow (Yellow); Glucose, Dipstick Normal (Normal); Ketone-Dipstick Negative (Negative); Leukocyte Esterase-Dipstick 500 /ul (Negative); Nitrite-Dipstick Negative (Negative); Occult Blood-Urine 10 /ul (Negative); Protein-Dipstick 15 mg/dl (Negative); Urine Bilirubin Dipstick Negative (Negative); Urine Clarity Sl. Cloudy (Clear); Urine Urobilinogen Normal (Normal)
[2019-03-06 09:40] LABS: Bacteria 1+ /hpf (None Seen); Squamous Epithelial Cells - UA 0-5 SEEN /hpf (5-10); White Blood Cells 5-10 SEEN /hpf (0-5)
[2019-03-06 10:03] LABS: ALB/GLOB Ratio 0.9 RATIO (0.9-2.4); AST(SGOT) 15 U/L (15-37); Alanine Aminotransfer ALT/SGPT 27 U/L (13-56); Albumin, Serum 3.6 g/dL (3.2-5.0); Alkaline Phosphatase 85 U/L (45-117); Anion Gap 4 (5-15); BUN 10 mg/dL (7-18); BUN/Creat Ratio 16.9 RATIO (10-20); Calcium,Total 8.8 mg/dL (8.5-10.1); Chloride 102 mmol/L (98-107); Cholesterol 211 mg/dL (200); Creatinine, Serum 0.59 mg/dL (0.55-1.02); EST Glomerular Filtration Rate 105 mL/min (>60); Est Glom Filt Rate - Afr Amer 127 mL/min (>60); Globulin 3.8 g/dL (2.2-4.2); Glucose 86 mg/dL (74-106); High Density Lipoprotein 55 mg/dL; Iron 173 ug/dL (50-170); Potassium 3.9 mmol/L (3.5-5.1); Protein, Total 7.4 g/dL (6.4-8.2); Sodium Level 136 mmol/L (136-145); T4 Total, Thyroxin 10.2 ug/dL (4.8-13.9); Thyroid Stim Hormone (TSH) 6.22 uIU/mL (0.358-3.74); Triglycerides 130 mg/dL; Very Low Density Lipoprotein 26 mg/dL (5-40)
== END ==
DX: E11.9 Type 2 diabetes mellitus without complications (principal); E03.9 Hypothyroidism, unspecified; E78.2 Mixed hyperlipidemia; D64.9 Anemia, unspecified; N39.0 Urinary tract infection, site not specified; K52.9 Noninfective gastroenteritis and colitis, unspecified
CPT/HCPCS: 36415; 80053; 80061; 81001; 83540; 84436; 84443; 85025

== ENCOUNTER 2019-03-27 11:12 | Emergency (ER) | payer MEDICARE, SELFPAY ==
[2018-09-05 07:30] VITALS: BMI 29.2
[2019-03-27] VITALS (8 sets, daily range): BP systolic 191–209; BP diastolic 75–89; PULSE 60–67; RESP 16–22; TEMP 36.6; O2SAT 98–99; BMI 33.0
--- NOTE | 2019-03-27 11:24 | RAD_ITS ---
STUDY: X-RAY CHEST REASON FOR EXAM: Female, 73 years old. Chest pain. Dyspnea. TECHNIQUE: PA and lateral views of the chest. COMPARISON: Comparison is made with prior study dated September 05, 2018. FINDINGS: EKG electrodes are seen. A loop recording device is seen overlying the left lower hemithorax. The lungs are clear and expanded. There is no demonstrated pleural abnormality. Normal size heart. Normal mediastinum and nasrin. Normal visualized pulmonary arteries. There is atherosclerotic tortuosity of the aortic arch and descending thoracic aorta. There are diffuse degenerative changes of the visualized thoracic spine. Normal visualized ribs, clavicles, and shoulders. There is no demonstrated abnormality of the visualized soft tissue structures of the upper abdomen. RAD/Chest PA and Lateral IMPRESSION: No acute abnormality is seen. Electronically Signed: Gonzalo Jordan, at 12:29 EDT , Service support ,
--- NOTE | 2019-03-27 11:24 | EKG12_ITS ---
Test Reason : CP Blood Pressure : / mmHG Vent. Rate : 065 BPM Atrial Rate : 065 BPM P-R Int : 152 ms QRS Dur : 076 ms QT Int : 384 ms P-R-T Axes : 056 -17 010 degrees QTc Int : 399 ms Normal sinus rhythm Possible Left atrial enlargement Left ventricular hypertrophy Abnormal ECG Confirmed by DAPHNIE SAUCEDA, HANNAH ([id number]), editor farm journal DOROTEO HERNANDEZ ([id number]) on 03/30/2019 1:54:02 PM Referred By: JENNIFER
[2019-03-27 11:32] LABS: Absolute Lymphocyte Count 1.79 X10^3/uL (0.83-4.51); Basophil# 0.07 X10^3/uL; Basophil% 0.7 % (0-1); Eosinophil# 0.11 X10^3/uL; Eosinophils% 1.1 % (0-5); Hematocrit 41.5 % (37-47); Lymphocyte # 1.79 X10^3/ul (4.0); Lymphocyte % 18.3 % (19-41); Mean Corp Hgb Conc 33.7 g/dL (32-36); Mean Corpuscular Hgb 34.9 pg (27.0-32.0); Mean Corpuscular Volume 103.5 fL (81-99); Mean Platelet Vol. 11.2 fl (6.2-12.0); Monocyte# 0.75 X10^3/uL; Monocyte% 7.7 % (0-10); NRBC Flagged by Analyzer 0 % (0-5); Neutrophil # 7.02 X10^3/uL (2.7-7.7); Neutrophil % 71.7 % (47-70); Platelet Count 271 K/mm3 (150-450); RBC Distribution Width CV 12.9 % (11.6-14.6); RBC Distribution Width SD 49.2 fl (35.1-43.9); Red Blood Count 4.01 M/mm3 (4.2-5.4); White Blood Count 9.8 K/mm3 (4.4-11.0)
[2019-03-27] MEDS: Aspirin 81 MG TAB.CHEW 324 MG PO (11:34)
--- NOTE | 2019-03-27 11:37 | ED.VIS.GEN ---
History of Present Illness Chief Complaint: Chest Pain Informant: Patient Onset: Today Narrative: Presents with chest tightness since 6 AM this morning more than 5 hours ago. Symptoms subsiding. No radicular symptoms. States been having dyspnea is worse in the past few days with asthma history. 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 Freeman yesterday for follow-up, was told to monitor it with recheck appointment in a month. Denies any cough. Denies any recent travel, surgeries, or immobilizations. No history of PE or DVT. Denies tobacco history. Denies any wheezing. States since seeing pulmonology yesterday states her shortness of breath was slightly worsening throughout the night. She is taking her inhalers. No oxygen therapy. History of hypertension hypercholesterolemia. No diabetes history. No coronary stents or heart attacks in the past. Prior similar symptoms: Yes Past Medical History - Allergies and Home Meds Allergies/Adverse Reactions: Allergies acetaminophen [From Tylenol-Codeine #3] Allergy (Verified 03/27/19 11:18) Nausea codeine phosphate [From Tylenol-Codeine #3] Allergy (Verified 03/27/19 11:18) Nausea Primary Care Physician: [facility] Doctor,Out of [NON-STAFF] - Surgical History: appendectomy, hysterectomy, tonsillectomy Smoking Status: Never smoker - Family History Maternal Family History: Reports: Heart Disease Paternal Family History: Reports: Heart Disease Review of Systems General: Denies: Chills, Fever, Sweats Eyes: Denies: Visual changes - bilaterally, Diplopia ENT: Denies: Rhinorrhea, Sore throat Cardiovascular: Reports: Chest pain. Denies: Palpitations Respiratory: Reports: Dyspnea. Denies: Cough, Dyspnea on exertion Gastrointestinal: Denies: Abdominal pain, Nausea, Vomiting, Diarrhea, Melena, Hematochezia Genitourinary: Denies: Dysuria, Hematuria, Frequency Musculoskeletal: Denies: Back pain, Extremity Pain Skin: Denies: Rash, Wounds Neurological: Denies: Headache, Weakness, Numbness Physical Exam Vital Signs/Narrative: Vital Signs Temp Pulse Resp BP Pulse Ox 03/27/19 11:27 98 03/27/19 11:21 67 22 H 209/84 H 98 03/27/19 11:13 98 F 65 16 191/83 H 99 Inital Vital Signs reviewed: Yes General: Well nourished, Well developed, No Acute Distress Head: Normocephalic, Atraumatic Eyes: Perrl, EOMI ENT: Moist mucous membranes, No rhinorrhea Neck: Supple, Nontender Cardiovascular: Regular rate, Regular rhythm, No murmurs Respiratory: No distress, CTA bilaterally, Chest nontender Abdomen: Soft, Nontender, Nondistended, Normal bowel sounds Back: Nontender, Normal Inspection Extremities: Nontender, - - 1+ lower extremity edema bilaterally. Skin: Normal color, No rash Neurological: Alert, Oriented x3, Cranial nerves II-XII grossly intact, Normal Strength, Normal Sensation Psychological: Normal affect, Normal Mood Diagnostic/Tx/Re-eval Clinical Impression(s) from Imaging Studies Chest X-Ray 03/27/19 11:24 IMPRESSION: No acute abnormality is seen. Electronically Signed: Gonzalo Jordan, at 12:29 EDT , Service support , Abnormal Lab Results 03/27/19 03/27/19 03/27/19 11:26 11:26 11:26 WBC 9.8 RBC 4.01 L Hgb 14.0 Hct 41.5 MCV 103.5 H MCH 34.9 H MCHC 33.7 RDW Std Deviation 49.2 H RDW Coeff of Taran 12.9 Plt Count 271 MPV 11.2 Immature Gran % (Auto) 0.500 Neut % (Auto) 71.7 H Lymph % (Auto) 18.3 L [place] % (Auto) 7.7 Eos % (Auto) 1.1 Baso % (Auto) 0.7 Absolute Neuts (auto) 7.0 Absolute Lymphs (auto) 1.79 Nucleated RBC % 0 D-Dimer Quant (PE/DVT) Sodium 137 Potassium 4.5 Chloride 102 Carbon Dioxide 30.0 Anion Gap 5 BUN 7 Creatinine 0.74 Estim Creat Clear Calc 34.91 Est GFR (MDRD) Af Amer 98 Est GFR (MDRD) Non-Af 81 BUN/Creatinine Ratio 9.5 L Glucose 105 Calcium 9.4 Troponin I < 0.015 B-Natriuretic Peptide 72.2 03/27/19 03/27/19 11:26 12:25 WBC RBC Hgb Hct MCV MCH MCHC RDW Std Deviation RDW Coeff of Taran Plt Count MPV Immature Gran % (Auto) Neut % (Auto) Lymph % (Auto) [place] % (Auto) Eos % (Auto) Baso % (Auto) Absolute Neuts (auto) Absolute Lymphs (auto) Nucleated RBC % D-Dimer Quant (PE/DVT) Cancelled 0.29 Sodium Potassium Chloride Carbon Dioxide Anion Gap BUN Creatinine Estim Creat Clear Calc Est GFR (MDRD) Af Amer Est GFR (MDRD) Non-Af BUN/Creatinine Ratio Glucose Calcium Troponin I B-Natriuretic Peptide Patient EKG sinus rate of 65 nonspecific T waves inversion in leads III. Cardiac work-up was negative. Given aspirin, symptom-free on reevaluation. Heart score is a 3. For dyspnea, chest x-ray negative I did check a BNP with her lower extremity edema which was normal. With no complaints of cough, d-dimer obtained which also was negative. She was initially placed on oxygen for comfort however removed and was stable she is ambulate with a pulse ox which was also stable. With her asthma history reporting tightness, will place on steroids for 5 days. Strict signs and symptoms discussed with the patient to return otherwise follow-up as an outpatient. She did have a elevated blood pressure on arrival, she has blood pressure cuff at home for monitoring we will keep a log and follow-up with her PCP. Prior to discharge, I did receive a call back from Dr. Springer, agrees with steroids, she will be seen in the office for follow-up. - EKG Initial EKG Interpretation: Sinus Rhythm - Sinus rate of 65, no ST changes. Isolated T wave inversion in leads III. Artifact at baseline precordial leads. ED Disposition - Plan for ED Patient: Disposition: Home or Assisted Living Diagnosis: Atypical chest pain, Dyspnea, Elevated blood pressure reading with diagnosis of hypertension Instructions: CHEST PAIN, Uncertain Cause, ED Dyspnea Prescriptions: Prednisone [Deltasone] 40 mg PO DAILY 4 Days #8 tablet Referrals: [facility] Doctor,Out of [NON-STAFF] - Mathew Freeman MD [STAFF PHYSICIAN] - 1-2 Weeks Additional Instructions: Check your blood pressure in the morning at night and keep a log. Continue medications. Take steroids as prescribed. Follow-up with your PCP at Dr. Freeman.
[2019-03-27 11:51] LABS: Anion Gap 5 (5-15); BUN 7 mg/dL (7-18); BUN/Creat Ratio 9.5 RATIO (10-20); Calcium,Total 9.4 mg/dL (8.5-10.1); Chloride 102 mmol/L (98-107); Creatinine, Serum 0.74 mg/dL (0.55-1.02); EST Glomerular Filtration Rate 81 mL/min (>60); Est Glom Filt Rate - Afr Amer 98 mL/min (>60); Estimated Creatinine Clearance 34.91 ml/min; Glucose 105 mg/dL (74-106); Potassium 4.5 mmol/L (3.5-5.1); Sodium Level 137 mmol/L (136-145)
[2019-03-27 12:00] LABS: BNP,B-Type NATRIURETIC PEPTIDE 72.2 pg/mL (0-100)
[2019-03-27 12:44] LABS: D-Dimer Quantitative (DVT/PE) 0.29 FEU/ug/m (0.27-0.49)
[2019-03-27] MEDS: predniSONE 20 MG Tablet 40 MG PO (14:16)
== END 2019-03-27 14:17 | disposition home or self-care (01) ==
PROVIDERS: Emergency Provider Emergency Medicine
DX: R07.89 Other chest pain (principal); R06.00 Dyspnea, unspecified; I10 Essential (primary) hypertension; E78.00 Pure hypercholesterolemia, unspecified; J45.909 Unspecified asthma, uncomplicated; Z88.5 Allergy status to narcotic agent; Z88.6 Allergy status to analgesic agent; Z90.710 Acquired absence of both cervix and uterus
CPT/HCPCS: 71046; 80048; 83880; 84484; 85025; 85379; 93005; 99285; J7030; A4216

== ENCOUNTER → 2019-04-24 17:09 | Outpatient (CLI) | payer MEDICARE, SELFPAY ==
[2019-03-27 11:13] VITALS: BMI 33.0
[2019-04-24 17:29] LABS: Absolute Lymphocyte Count 2.28 X10^3/uL (0.83-4.51); Basophil# 0.08 X10^3/uL; Basophil% 0.6 % (0-1); Eosinophil# 0.18 X10^3/uL; Eosinophils% 1.4 % (0-5); Hemoglobin 13.5 g/dL (12.0-15.0); Lymphocyte # 2.28 X10^3/ul (4.0); Lymphocyte % 17.6 % (19-41); Mean Corp Hgb Conc 32.1 g/dL (32-36); Mean Corpuscular Hgb 34.3 pg (27.0-32.0); Mean Corpuscular Volume 106.6 fL (81-99); Monocyte# 1.36 X10^3/uL; Monocyte% 10.5 % (0-10); NRBC Flagged by Analyzer 0 % (0-5); Neutrophil # 8.96 X10^3/uL (2.7-7.7); Neutrophil % 69.1 % (47-70); Platelet Count 262 K/mm3 (150-450); RBC Distribution Width CV 13.3 % (11.6-14.6); RBC Distribution Width SD 52.3 fl (35.1-43.9); Red Blood Count 3.94 M/mm3 (4.2-5.4)
[2019-04-24 17:52] LABS: Vitamin D,25 Hydroxy 41.3 ng/mL (29.95-100.01)
[2019-04-24 17:54] LABS: ALB/GLOB Ratio 1.1 RATIO (0.9-2.4); AST(SGOT) 12 U/L (15-37); Alanine Aminotransfer ALT/SGPT 25 U/L (13-56); Albumin, Serum 3.9 g/dL (3.2-5.0); Alkaline Phosphatase 88 U/L (45-117); Anion Gap 5 (5-15); BUN 25 mg/dL (7-18); BUN/Creat Ratio 35.9 RATIO (10-20); Calcium,Total 9.4 mg/dL (8.5-10.1); Chloride 102 mmol/L (98-107); EST Glomerular Filtration Rate 87 mL/min (>60); Est Glom Filt Rate - Afr Amer 105 mL/min (>60); Globulin 3.7 g/dL (2.2-4.2); Glucose 110 mg/dL (74-106); Potassium 4.9 mmol/L (3.5-5.1); Protein, Total 7.6 g/dL (6.4-8.2); Sodium Level 137 mmol/L (136-145); Thyroid Stim Hormone (TSH) 5.17 uIU/mL (0.358-3.74)
== END ==
PROVIDERS: Visit Provider Family Medicine Geriatric Medicine
DX: I10 Essential (primary) hypertension (principal); E55.9 Vitamin D deficiency, unspecified
CPT/HCPCS: 36415; 80053; 82306; 84443; 85025

== ENCOUNTER → 2019-05-07 15:36 | Outpatient (CLI) | payer MEDICARE, SELFPAY ==
[2019-03-27 11:13] VITALS: BMI 33.0
[2019-05-07 18:46] LABS: M R Staph aureus DNA By PCR Negative (Negative); Probe Check PASS; Staph aureus DNA By PCR NEGATIVE (Negative)
== END ==
PROVIDERS: Visit Provider Family Medicine Geriatric Medicine
DX: B95.62 Methicillin resistant Staphylococcus aureus infection as the cause of diseases classified elsewhere (principal)
CPT/HCPCS: 87070; 87205; 87640

== ENCOUNTER → 2019-05-28 15:36 | Outpatient (CLI) | payer MEDICARE, SELFPAY ==
[2019-03-27 11:13] VITALS: BMI 33.0
== END ==
PROVIDERS: Referring Provider Otolaryngology Otolaryngology/Facial Plastic Surgery; Visit Provider Otolaryngology Otolaryngology/Facial Plastic Surgery
DX: J02.9 Acute pharyngitis, unspecified (principal)
CPT/HCPCS: 87070

== ENCOUNTER → 2019-06-04 16:47 | Outpatient (CLI) | payer MEDICARE, SELFPAY ==
[2019-03-27 11:13] VITALS: BMI 33.0
--- NOTE | 2019-06-04 16:55 | RAD_ITS ---
STUDY: X-RAY CHEST REASON FOR EXAM: Female, 73 years old. Cough TECHNIQUE: Two view of the chest were performed COMPARISON: 27 March 2019 FINDINGS: Lungs are clear. There is no pneumothorax, pulmonary edema, pleural effusions or cardiomegaly. Osseous structures are intact. There is no gas under the diaphragms. [ Loop recorder is implanted over the heart.] RAD/Chest PA and Lateral IMPRESSION: 1. No acute cardiorespiratory disease. [ ] Electronically Signed: Marifer Min, at 17:15 EST Tel , Service support ,
== END ==
PROVIDERS: Family Provider Family Medicine Geriatric Medicine; PCP Family Medicine Geriatric Medicine; Referring Provider Family Medicine Geriatric Medicine; Visit Provider Family Medicine Geriatric Medicine
DX: J41.0 Simple chronic bronchitis (principal); R68.83 Chills (without fever)
CPT/HCPCS: 71046; 87633

== ENCOUNTER → 2019-06-18 15:12 | Outpatient (CLI) | payer MEDICARE, SELFPAY ==
[2019-03-27 11:13] VITALS: BMI 33.0
--- NOTE | 2019-06-18 15:15 | RAD_ITS ---
STUDY: X-RAY CHEST REASON FOR EXAM: Female, 73 years old. Bronchitis and cough for 2 weeks. TECHNIQUE: PA and lateral views of the chest. COMPARISON: 06/04/2019. FINDINGS: There is mild right basilar atelectasis, stable. Remainder of the lungs are clear and expanded. There is no demonstrated pleural abnormality. Normal size heart. Normal mediastinum and nasrin. Normal visualized pulmonary arteries. There is atherosclerotic calcification of the aortic arch . There is demineralization of the osseous structures. There is degenerative osteoarthritis of the bilateral shoulders and spine. There is no demonstrated abnormality of the visualized soft tissue structures of the upper abdomen. RAD/Chest PA and Lateral IMPRESSION: No acute cardiopulmonary disease. Electronically Signed: Yoselin Paul MD at 21:26 EST , Service support ,
== END ==
PROVIDERS: Family Provider Family Medicine Geriatric Medicine; PCP Family Medicine Geriatric Medicine; Referring Provider Family Medicine Geriatric Medicine; Visit Provider Family Medicine Geriatric Medicine
DX: J41.0 Simple chronic bronchitis (principal)
CPT/HCPCS: 71046; 87633

== ENCOUNTER 2019-07-02 09:20 | Emergency (ER) | payer MEDICARE, SELFPAY ==
[2019-03-27 11:13] VITALS: BMI 33.0
[2019-07-02 09:21] VITALS: BP 166/87; PULSE 65; RESP 18; TEMP 36.7; O2SAT 99; BMI 29.0
--- NOTE | 2019-07-02 09:36 | CT_ITS ---
STUDY: CT BRAIN WITHOUT CONTRAST REASON FOR EXAM: Female, 73 years old. Fell 4 days ago hitting back of head, nausea, headache, balance issues. RADIATION DOSAGE (If Supplied By Facility): CTDIvol = ( 44.99 ) mGy, DLP = ( 779.24 ) mGycm TECHNIQUE: Transaxial CT imaging of the brain was performed without administration of intravenous contrast material. Individualized dose optimization techniques were used for this CT. COMPARISON: No relevant priors. FINDINGS: Normal soft tissue structures. Normal calvarium. Normal size ventricles and extra-axial spaces for the patient''s age. Normal white matter tracts of the cerebral hemispheres. There are small bilateral basal ganglia chronic lacunar infarcts. Normal brainstem. Normal cerebellum. There is no intracranial hemorrhage. There are no findings of an acute ischemic infarction. Small air-fluid levels in the bilateral maxillary sinuses. There is acute sinusitis in the left frontal and sphenoid sinus. There is marked opacification of the bilateral anterior ethmoid air cells. CT/Brain/Head without Contrast IMPRESSION: No intracranial hemorrhage. The calvarium is intact. Pansinusitis Electronically Signed: Viji Larson, at 10:19 EST Tel , Service support ,
[2019-07-02] MEDS: Ondansetron 8 MG Tablet PO (09:41)
--- NOTE | 2019-07-02 09:42 | ED.DCSUM_ITS ---
- ER Visit Summary Date of Service: 07/02/19 Chief Complaint: Recent fall with head injury History of Present Illness: The patient is a 73 F history of hypertension. Not on any blood thinners. Patient states she was in her closet on June 28. Lost her balance and fell backwards striking her head hard against the wall and floor. She denies any LOC. States she was not evaluated on that day or since that time. But she has developed headaches and nausea. No vomiting. No trouble moving her arms or legs. No numbness or tingling. Physical Examination: Early female no acute distress. Vital signs are stable afebrile. Initial blood pressure 166/87. H EENT exam unremarkable. Atraumatic. She is tender posterior scalp with no hematoma or laceration. Pupils round reactive to light. Extra motions are intact. No facial trauma. C-spine nontender. Trachea midline. Lungs clear to auscultation bilaterally. Heart regular rate and rhythm no murmur. Chest nontender. Abdomen soft nontender. Pelvic girdle intact. Nontender. No shortening or rotation. 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 5 out of 5. Normal dorsi plantar flexion. Able to flex and extend at elbows and shoulders wrist and hands. Also flexion- extension at hips and knees and ankles. No deformity. Back nontender. Neurologically the patient is awake and alert with no focal motor or sensory deficits. NIH is 0. GCS of 15. Test Results: CAT scan of the brain without contrast shows no acute abnormality. No bleed. No skull fracture. Read by radiologist and reviewed by me. Emergency Department Course and Treatment: Patient treated with p.o. Zofran for nausea. Due to her symptoms, fall and head injury a CAT scan to be obtained. Repeat exam doing well at 10:25 AM. Treatment Plan:. Zofran for nausea. Improving. Disposition: Dysuria Impression: Closed head injury This note was generated with [employer]™ dictation software. It may contain incorrect words, spelling, and punctuation that were not noted in review of the chart prior to signing ED Disposition - Plan for ED Patient: Referrals: Jaime Culver Chi, MD [Primary Care Provider] -
--- NOTE | 2019-07-02 10:27 | ED.DEP ---
ED Disposition - Plan for ED Patient: Disposition: Home or Assisted Living Instructions: CONCUSSION, No Wake Up Prescriptions: Ondansetron [Zofran Odt] 4 mg PO Q8H PRN PRN #7 tab PRN Reason: Nausea Prescription Printed Referrals: Jaime Culver Chi, MD [Primary Care Provider] - 1 Week if not improving Additional Instructions: Your CAT scan of your brain looks good today. Zofran as needed for nausea. Tylenol for pain. Follow-up with your doctor if not improving.
== END 2019-07-02 10:36 | disposition home or self-care (01) ==
PROVIDERS: Emergency Provider Emergency Medicine; Family Provider Family Medicine Geriatric Medicine; PCP Family Medicine Geriatric Medicine
DX: S09.90XA Unspecified injury of head, initial encounter (principal); W01.0XXA Fall on same level from slipping, tripping and stumbling without subsequent striking against object, initial encounter; I10 Essential (primary) hypertension
CPT/HCPCS: 70450; 99283

== ENCOUNTER 2019-07-09 06:21 | Observation (INO) | payer MEDICARE, SELFPAY ==
[2019-07-09] VITALS (12 sets, daily range): BP systolic 98–178; BP diastolic 60–82; PULSE 65–79; RESP 15–18; TEMP 36.6–37.3; O2SAT 93–97; BMI 29.6; BMI 28.9
--- NOTE | 2019-07-09 06:30 | EKG12_ITS ---
Test Reason : SYNCOPE Blood Pressure : / mmHG Vent. Rate : 064 BPM Atrial Rate : 064 BPM P-R Int : 156 ms QRS Dur : 084 ms QT Int : 400 ms P-R-T Axes : 052 -19 008 degrees QTc Int : 412 ms Normal sinus rhythm Voltage criteria for left ventricular hypertrophy Abnormal ECG Confirmed by FELICIA SAUCEDA, CHERISE ([id number]), clinical editor SAI WADE ([id number]) on 07/12/2019 11:04:58 AM Referred By: KWASI Confirmed By:CHERISE DUARTE MD
--- NOTE | 2019-07-09 06:31 | ED.VIS.GEN ---
History of Present Illness Chief Complaint: Syncope Informant: Patient Narrative: Patient stated she woke up this morning and felt very nauseated. Is been going on for last 4 mornings. It seems to clear throughout the day. She felt like she may vomit so she walked out to her kitchen. She got lightheaded and passed out. She did hit her head. She stated she is having some worsening soreness in her low back. She has chronic degenerative disc disease in her low back and feels like she may have exacerbated that pain. There is no radicular symptoms. Patient is on multiple different narcotics as well as a sleep bag. This could be contributing. She did strike her head on June 28 and had a negative CT at that time in the emergency department. She does not feel like she has postconcussive symptoms though. - Past Medical History (1) Acute asthma exacerbation Status: Acute (2) Acute bronchitis Status: Acute (3) Hyponatremia Status: Acute (4) Influenza A virus subtype H1 present Status: Acute (5) Benign hypertension Status: Chronic (6) Chronic low back pain Status: Chronic (7) HLD (hyperlipidemia) Status: Chronic (8) Hypothyroidism Status: Chronic (9) Seasonal allergies Status: Chronic Past Medical History - Allergies and Home Meds Allergies/Adverse Reactions: Allergies acetaminophen [From Tylenol-Codeine #3] Allergy (Verified 07/09/19 06:22) Nausea codeine phosphate [From Tylenol-Codeine #3] Allergy (Verified 07/09/19 06:22) Nausea Prior records reviewed: Yes Past Medical History: - - See problem list Surgical History: appendectomy, hysterectomy, tonsillectomy Smoking Status: Never smoker Alcohol: None Drugs: None - Family History Maternal Family History: Reports: Heart Disease Paternal Family History: Reports: Heart Disease Review of Systems General: Denies: Chills, Fever, Sweats Eyes: Denies: Visual changes - bilaterally, Diplopia ENT: Denies: Rhinorrhea, Sore throat Cardiovascular: Denies: Chest pain, Palpitations Respiratory: Denies: Dyspnea, Cough, Dyspnea on exertion Gastrointestinal: Reports: Nausea. Denies: Abdominal pain, Vomiting, Diarrhea, Melena, Hematochezia Genitourinary: Denies: Dysuria, Hematuria, Frequency Musculoskeletal: Reports: Back pain. Denies: Extremity Pain Skin: Denies: Rash, Wounds Neurological: Denies: Headache, Weakness, Numbness Physical Exam Vital Signs/Narrative: Vital Signs Temp Pulse Resp BP Pulse Ox 07/09/19 06:22 98 F 72 17 178/73 H 96 General: Well nourished, Well developed, No Acute Distress Head: Normocephalic, Atraumatic Eyes: Perrl, EOMI ENT: Moist mucous membranes, No rhinorrhea Neck: Supple, Nontender Cardiovascular: Regular rate, Regular rhythm, No murmurs Respiratory: No distress, CTA bilaterally, Chest nontender Abdomen: Soft, Nontender, Nondistended, Normal bowel sounds Back: Nontender, Normal Inspection Extremities: Nontender, No edema Skin: Normal color, No rash Neurological: Alert, Oriented x3, Cranial nerves II-XII grossly intact, Normal Strength, Normal Sensation Psychological: Normal affect, Normal Mood Diagnostic/Tx/Re-eval - Medical Decision Making Patient given IV fluids and Zofran. Lab work and EKG obtained EKG obtained shows normal sinus rhythm at a rate of 64 without acute ischemia or arrhythmia. Her shows a leukocytosis of 18,000 with left shift. Patient stated she has been feeling weak and fatigued with muscle aches. She did get a flu shot. She has had bronchitis symptoms for the last few days. Chest x-ray and urinalysis as well as influenza will be obtained. Signed out to Dr. Ross for further eval and dispo ED Disposition - Plan for ED Patient: Disposition: [facility] Diagnosis: Syncope, Chronic low back pain
[2019-07-09] MEDS: Ondansetron 4 MG/2 ML Vial IV (06:42)
[2019-07-09] MEDS: Acetaminophen 325 MG Tablet 650 MG PO ×2 (06:42→12:03)
[2019-07-09 06:44] LABS: Absolute Lymphocyte Count 1.69 X10^3/uL (0.83-4.51); Absolute Neutrophil Count 15.7 X10^3/uL (2.0-7.7); Basophil# 0.07 X10^3/uL; Basophil% 0.4 % (0-1); Eosinophil# 0.09 X10^3/uL; Eosinophils% 0.5 % (0-5); Hematocrit 41.5 % (37-47); Hemoglobin 13.9 g/dL (12.0-15.0); Lymphocyte # 1.69 X10^3/ul (4.0); Lymphocyte % 9.2 % (19-41); Mean Corp Hgb Conc 33.5 g/dL (32-36); Mean Corpuscular Hgb 34.2 pg (27.0-32.0); Mean Corpuscular Volume 102.2 fL (81-99); Mean Platelet Vol. 10.7 fl (6.2-12.0); Monocyte# 0.82 X10^3/uL; Monocyte% 4.4 % (0-10); NRBC Flagged by Analyzer 0 % (0-5); Neutrophil # 15.67 X10^3/uL (2.7-7.7); Neutrophil % 84.9 % (47-70); Platelet Count 264 K/mm3 (150-450); RBC Distribution Width CV 12.8 % (11.6-14.6); RBC Distribution Width SD 48.6 fl (35.1-43.9); Red Blood Count 4.06 M/mm3 (4.2-5.4); White Blood Count 18.5 K/mm3 (4.4-11.0)
--- NOTE | 2019-07-09 06:49 | RAD_ITS ---
STUDY: X-RAY CHEST REASON FOR EXAM: Female, 73 years old. SYNCOPE, LBP, NAUSEA TECHNIQUE: Frontal and lateral views of the chest. COMPARISON: None. FINDINGS: The lungs are underexpanded. There is no demonstrated pleural abnormality. Normal size heart. Normal mediastinum and nasrin. Normal visualized pulmonary arteries. There is atherosclerotic tortuosity of the aortic arch and descending thoracic aorta. Normal visualized thoracic spine. There is degenerative osteoarthritis of the bilateral shoulders. There is no demonstrated abnormality of the visualized soft tissue structures of the upper abdomen. RAD/Chest PA and Lateral IMPRESSION: Degenerative changes, as described above. No demonstrated acute cardiopulmonary process. Electronically Signed: Keli Felix, at 7:41 EST Tel , Service support ,
[2019-07-09 06:59] LABS: Anion Gap 8 (5-15); BUN 11 mg/dL (7-18); Calcium,Total 8.2 mg/dL (8.5-10.1); Chloride 98 mmol/L (98-107); Creatinine, Serum 0.73 mg/dL (0.55-1.02); EST Glomerular Filtration Rate 82 mL/min (>60); Est Glom Filt Rate - Afr Amer 99 mL/min (>60); Estimated Creatinine Clearance 41.97 ml/min; Glucose 119 mg/dL (74-106); Potassium 4.6 mmol/L (3.5-5.1); Sodium Level 128 mmol/L (136-145)
[2019-07-09 07:45] LABS: Bacteria 0 SEEN /hpf (None Seen); Mucous, Urine 0 SEEN /hpf (<or=2+); Red Blood Cells-Urine 0 SEEN /hpf (0-5)
[2019-07-09] MEDS: 0.9% Normal Saline 1,000 ML 150 ML IV (07:46)
[2019-07-09 07:47] LABS: Color, Urine Yellow (Yellow); Glucose, Dipstick Normal (Normal); Ketone-Dipstick Negative (Negative); Leukocyte Esterase-Dipstick Negative /ul (Negative); Nitrite-Dipstick Negative (Negative); Occult Blood-Urine Negative /ul (Negative); Protein-Dipstick 30 mg/dl (Negative); Urine Bilirubin Dipstick Negative (Negative); Urine Clarity Clear (Clear); Urine Urobilinogen Normal (Normal)
--- NOTE | 2019-07-09 07:48 | RAD_ITS ---
STUDY: X-RAY - LUMBAR SPINE REASON FOR EXAM: Female, 73 years old. fell -- LBP TECHNIQUE: 3 view(s) of the lumbar spine were obtained. COMPARISON: None FINDINGS: There is mild, grade 1 degenerative listhesis at L3-L4 and L2-L3. Moderate to severe diffuse spondylosis is identified. There is severe degenerative disc disease involving L2-L3 and L3-L4. There is no acute fracture lucency, cortical step-off or compression deformity/fracture. Moderate to severe bilateral facet arthrosis is identified throughout the mid and inferior lumbar spine and proximal sacrum. The bowel gas pattern appears unremarkable. Significant diffuse calcified plaque is identified without demonstration of definite aneurysm. The lung bases within the field of view appear unremarkable. RAD/Lumbar Spine 2 or 3 Views IMPRESSION: No evident acute osseous abnormality. Degenerative listhesis, spondylosis and degenerative disc disease as above. Moderate to severe bilateral facet arthrosis as above. Atherosclerotic peripheral vascular disease. Electronically Signed: Tim Reyes MD at 9:12 EST , Service support ,
[2019-07-09 07:54] LABS: Squamous Epithelial Cells - UA 0-5 SEEN /hpf (5-10); White Blood Cells 0-5 SEEN /hpf (0-5)
[2019-07-09] MEDS: proMETHazine 25 MG/ML Syringe 12.5 MG IV (07:56)
--- NOTE | 2019-07-09 07:56 | ED.VISSUMM ---
- ER Visit Summary Date of Service: 07/09/19 Chief Complaint: [Syncope, addendum to initial dictation by Dr. Lonny Valladares] History of Present Illness: The patient is a 73 F [presented with a syncopal episode this morning after waking up and feeling nauseated. Patient states that over the last 4 mornings she has been quite nauseated in the morning. Patient had a syncopal episode on June 28 as well but did not come to the ER for that however eventually she came in for continued headache and had a CT scan of her brain that was unremarkable and she was diagnosed with a concussion. Patient years ago used to have intermittent syncopal episodes but states that she has not had them for many years. She denies any chest pain or shortness of breath out of the ordinary. Her main complaint is nausea. Patient also complaining of pain in her lower back since the fall although she does have chronic back pain issues. Patient also relates history of being treated for bronchitis with cough for several weeks and had been on antibiotics at one point given to her by her primary care physician. Patient denies urinary symptoms.] Physical Examination: [HEENT-PERRLA, EOMI. Cranial nerves II through XII grossly intact. TMs clear. Mucous membranes moist. No adenopathy. Cardiovascular-regular rate and rhythm without murmur or ectopy Lungs-clear to auscultation, chest wall stable without crepitus or subcu emphysema Abdomen-normoactive bowel sounds, soft, nontender, no rebound or rigidity, no peritoneal signs. Back exam-patient has tenderness palpation over the lumbar spine diffusely. Negative straight leg raises. Deep tendon reflexes are +14 bilaterally at the patella Achilles. Extremities-intact ?4, normal range of motion, normal pulses, atraumatic] Test Results: [EKG obtained arrival shows sinus rhythm with a ventricular rate of 64 bpm. CBC with differential obtained showed an elevated white blood cell count of 18,000. Her chemistry showed a depressed sodium of 128. Chest x-ray was unremarkable. Influenza screen was negative. Urinalysis was unremarkable. X-rays of lumbar spine ordered and pending] Emergency Department Course and Treatment: [Patient was medicated with IV fluids and given Phenergan 12.5 mg IV for continued nausea. Patient had initially received Zofran for her nausea which did not seem to help her.] Treatment Plan: [Case was discussed with hospitalist will evaluate patient for admission] Disposition: [Admit] Impression: [Syncope Leukocytosis Hyponatremia] This note was generated with [employer] dictation software. It may contain incorrect words, spelling, and punctuation that were not noted in review of the chart prior to signing ED Disposition - Plan for ED Patient: Diagnosis: Syncope, Chronic low back pain Instructions: SYNCOPE, Vasovagal Prescriptions: Ondansetron [Zofran Odt] 4 mg PO Q8H PRN PRN #10 tab PRN Reason: Nausea Prescription Printed Referrals: Jaime Culver Chi, MD [Primary Care Provider] -
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
--- NOTE | 2019-07-09 10:40 | ECHOD_ITS ---
Reason For Study: SYNCOPE Procedure This was a 2D Doppler, Color Flow transthoracic echocardiogram. Technically difficult- pt supine for exam due to back /neck pain from fall. Exam performed portable in patient room. Left Ventricle Normal LV size. Mild concentric left ventricular hypertrophy. Left ventricular systolic function is normal. Stage 1 diastolic dysfunction. No regional wall motion abnormalities noted. Right Ventricle Normal right ventricle. Normal systolic function. Atria Normal left atrium. Normal right atrium. Mitral Valve Normal mitral valve. Tricuspid Valve The tricuspid valve is not well visualized. Mild tricuspid valve insufficiency. Pulmonary artery systolic pressure is 28 mmHg. Aortic Valve Normal aortic valve. Pulmonic Valve Normal pulmonic valve. Great Vessels Normal aortic root. The pulmonary artery is normal size. Inferior vena cava collapse with respiration. Pericardium/Pleural No pericardial effusion. MMode/2D Measurements & Calculations LVIDd: 4.2 cm IVSd: 1.2 cm Ao root diam: 3.1 cm LVIDs: 2.2 cm LVPWd: 1.2 cm RVDd: 3.3 cm FS: 47.0 % LAV(MOD-bp): 34.7 ml LA A4 area: 13.4 cm2 LA dimension(2D): 3.2 cm LAV(MOD-bp) Indexed: 19.0 ml/m2 LAV(MOD-sp2): 35.6 ml LAV(MOD-sp4): 31.3 ml RA A4 area: 11.4 cm2 Time Measurements MV dec time: 0.28 sec Doppler Measurements & Calculations MV E max jakub: 87.5 cm/sec Lat Peak E' Jakub: 5.6 cm/sec Med Peak E' Jakub: 5.7 cm/sec MV A max jakub: 121.4 cm/sec E/E' lat: 15.6 E/E' med: 15.2 MV E/A: 0.72 Ao V2 max: 169.3 cm/sec LV V1 max: 133.9 cm/sec PA V2 max: 86.5 cm/sec Ao max P.5 mmHg LV V1 max P.2 mmHg TR max jakub: 239.6 cm/sec TR max P.0 mmHg Interpretation Summary Normal LV size. Left ventricular systolic function is normal. Stage 1 diastolic dysfunction. Mild concentric left ventricular hypertrophy. Ordering Physician: Dusty rAana Referring Physician: JOSÉ ROBERTS CHI Performed By: Rain Hernandez RDCS, RVT
[2019-07-09] MEDS: NYSTATIN 500,000 UNIT/5 ML UDC 500000 UNIT PO ×3 (13:49→23:02)
[2019-07-09] MEDS: HYDROcodone Bitartrate/Apap 5/325 Tablet PO (18:15)
[2019-07-09] MEDS: guaiFENesin/Codeine 5 ML UDC 10 ML PO (18:16)
[2019-07-09] MEDS: Budesonide Respules 0.5 MG/2 ML AMPUL.NEB. INHALATION (19:02)
[2019-07-09] MEDS: Pravastatin 80 MG Tablet PO (23:02)
[2019-07-09] MEDS: Gabapentin 300 MG Capsule PO (23:02)
[2019-07-10 02:09] VITALS: PULSE 126
[2019-07-10 03:04] VITALS: PULSE 77
[2019-07-10 05:11] VITALS: BP 158/70; PULSE 77; RESP 15; TEMP 36.9; O2SAT 94
[2019-07-10] MEDS: Levothyroxine 100 MCG Tablet PO (05:37)
[2019-07-10] MEDS: HYDROcodone Bitartrate/Apap 5/325 Tablet PO (05:37)
[2019-07-10 07:01] VITALS: PULSE 67
[2019-07-10] MEDS: Budesonide Respules 0.5 MG/2 ML AMPUL.NEB. INHALATION (07:27)
[2019-07-10 08:07] LABS: Absolute Lymphocyte Count 1.55 X10^3/uL (0.83-4.51); Absolute Neutrophil Count 12.3 X10^3/uL (2.0-7.7); Basophil# 0.06 X10^3/uL; Basophil% 0.4 % (0-1); Eosinophils% 0.7 % (0-5); Hematocrit 37.8 % (37-47); Hemoglobin 12.5 g/dL (12.0-15.0); Lymphocyte # 1.55 X10^3/ul (4.0); Lymphocyte % 10.2 % (19-41); Mean Corp Hgb Conc 33.1 g/dL (32-36); Mean Corpuscular Hgb 34.8 pg (27.0-32.0); Mean Corpuscular Volume 105.3 fL (81-99); Mean Platelet Vol. 10.8 fl (6.2-12.0); Monocyte% 7.2 % (0-10); NRBC Flagged by Analyzer 0 % (0-5); Neutrophil # 12.34 X10^3/uL (2.7-7.7); Neutrophil % 80.9 % (47-70); Platelet Count 223 K/mm3 (150-450); RBC Distribution Width CV 13.2 % (11.6-14.6); RBC Distribution Width SD 50.8 fl (35.1-43.9); Red Blood Count 3.59 M/mm3 (4.2-5.4); White Blood Count 15.2 K/mm3 (4.4-11.0)
[2019-07-10 08:18] LABS: Anion Gap 5 (5-15); BUN 8 mg/dL (7-18); BUN/Creat Ratio 11.9 RATIO (10-20); Calcium,Total 8.8 mg/dL (8.5-10.1); Chloride 103 mmol/L (98-107); Creatinine, Serum 0.67 mg/dL (0.55-1.02); EST Glomerular Filtration Rate 91 mL/min (>60); Est Glom Filt Rate - Afr Amer 110 mL/min (>60); Estimated Creatinine Clearance 41.97 ml/min; Glucose 105 mg/dL (74-106); Potassium 3.9 mmol/L (3.5-5.1); Sodium Level 137 mmol/L (136-145)
[2019-07-10 09:11] VITALS: BP 146/75; BP 152/67; PULSE 101; PULSE 96; RESP 16; TEMP 36.1; O2SAT 94
[2019-07-10] MEDS: Losartan Potassium 50 MG Tablet 75 MG PO (09:22)
[2019-07-10 09:23] VITALS: PULSE 96
[2019-07-10] MEDS: amLODIPine 5 MG Tablet PO (09:23)
[2019-07-10] MEDS: Ascorbic Acid 500 MG Tablet PO (09:23)
[2019-07-10] MEDS: Metoprolol(XL)Succ 50 MG Tablet PO (09:23)
[2019-07-10] MEDS: NYSTATIN 500,000 UNIT/5 ML UDC 500000 UNIT PO (09:23)
[2019-07-10] MEDS: Loratadine 10 MG Tablet PO (09:23)
[2019-07-10] MEDS: Montelukast 10 MG Tablet PO (09:24)
--- NOTE | 2019-07-10 11:37 | DCINST_ITS ---
- Discharge Diagnoses Current Active Problems: Current Active and Chronic Problems (Last Updated 07/09/19 @ 10:09 by Dusty Arana DO) Chronic low back pain (Chronic) Syncope (Acute) You will use the following diet at home:: Cardiac Your food should be the consistency of: Regular Your liquids should be the consistency of: Regular/Thin Discharge Activity: Return to Normal Activity, - - Get up slowly from laying and sitting. Call your doctor if you observe: Fainting spells, - - dizziness Instructions: SYNCOPE, Vasovagal Allergies/Adverse Reactions: Allergies acetaminophen [From Tylenol-Codeine #3] Allergy (Verified 07/09/19 06:22) Nausea codeine phosphate [From Tylenol-Codeine #3] Allergy (Verified 07/09/19 06:22) Nausea Medications to take at Discharge Montelukast [Singulair] 10 mg PO DAILY 07/12/14 Levothyroxine [Synthroid] 100 mcg PO DAILY 06/02/16 Pravastatin Sodium 80 mg PO QHS 09/26/16 Ascorbic Acid [Vitamin C] 500 mg PO DAILY@0800 05/06/17 Cetirizine HCl [Allergy Relief] 10 mg PO DAILY 05/06/17 Amlodipine [Norvasc] 5 mg PO DAILY 09/04/18 Gabapentin [Neurontin] 300 mg PO QHS 09/04/18 Hydrocodone/Acetaminophen [Hydrocodone-Acetamin 7.5-325] 1 each PO TID PRN 09/04/18 Metoprolol Succinate [Toprol Xl] 50 mg PO DAILY 09/05/18 Beclomethasone Dipropionate [Qvar Redihaler] 2 puff INHALATION BID 03/27/19 Ondansetron [Zofran Odt] 4 mg PO Q8H PRN PRN #7 tab 07/02/19 Benzonatate 100 mg PO TID PRN PRN 07/09/19 Codeine Phosphate/Guaifenesin [Codeine-Guaifen 10-100 mg/5 ml] 10 ml PO Q4H PRN PRN 07/09/19 Ondansetron [Zofran Odt] 4 mg PO Q8H PRN PRN #10 tab 07/09/19 Nystatin 500,000 unit PO 4X/DAY #56 udc 07/10/19 The following prescriptions were given: Nystatin 500,000 unit PO 4X/DAY #56 udc Transmission Status: Pending to [id number] Ondansetron [Zofran Odt] 4 mg PO Q8H PRN PRN #10 tab PRN Reason: Nausea Prescription Printed Primary Care Physician: Jaime Culver Chi, MD [Primary Care Provider] - Within 2 Weeks Test Results: Test results from this visit will be discussed in further detail at your follow- up appointment, if applicable. Proposed Discharge Date: 07/10/19
--- NOTE | 2019-07-10 11:39 | DS.PCM_ITS ---
Discharge Date and Diagnosis - Problem List Patient Problems: Active and Suspected Problems (Last Updated 07/09/19 @ 10:09 by Dusty Arana DO) Syncope (Acute) Date of Admission: 07/09/19 Date of Discharge: 07/10/19 - Primary Discharge Diagnosis Active and Suspected Problems (Last Updated 07/09/19 @ 10:09 by Dusty Arana DO) Syncope (Acute) - Secondary Discharge Diagnosis Chronic Problems (Last Updated 07/09/19 @ 10:09 by Dusty Arana DO) Benign hypertension (Chronic) HLD (hyperlipidemia) (Chronic) Hypothyroidism (Chronic) Chronic low back pain (Chronic) Seasonal allergies (Chronic) Hospital Course and Treatment Imaging Results: Clinical Impression(s) from Imaging Studies Chest X-Ray 07/09/19 06:49 IMPRESSION: Degenerative changes, as described above. No demonstrated acute cardiopulmonary process. Electronically Signed: Keli Felix, at 7:41 EST Tel , Service support , Lumbar Spine X-Ray 07/09/19 07:48 IMPRESSION: No evident acute osseous abnormality. Degenerative listhesis, spondylosis and degenerative disc disease as above. Moderate to severe bilateral facet arthrosis as above. Atherosclerotic peripheral vascular disease. Electronically Signed: Tim Reyes MD at 9:12 EST , Service support , Operations: None Procedures: 2-D Echocardiogram Summary of Care Provided: The patient is a 73 year old F presents with syncope. Patient was getting out of bed and then started walking and then started feeling woozy and then went down and was out for a couple minutes before she came to. This is concerning as patient had episode where she was bent over in her closet was straight herself up she was bent over and then passed out and hit her head. Patient was brought in and evaluated. Echocardiogram was performed and was normal, telemetry showed no arrhythmia, and orthostatic vital signs were negative. Patient states that she recently has been discontinued on losartan though still was on her medication reconciliation form. Will discontinue that as it is already been discontinued. Work-up here is been unremarkable. Patient advised to get up slowly from laying or sitting before engaging in her normal routine. No additional recommendations at this time. Patient will be following up with outpatient physical therapy. [] Patient Problems: Active and Suspected Problems (Last Updated 07/09/19 @ 10:09 by Dusty Arana DO) Syncope (Acute) - Physical Exam Vitals/I&O's: Vital Signs Temp Pulse Resp BP Pulse Ox 36.1 C L 96 16 152/67 H 94 07/10/19 09:11 07/10/19 09:23 07/10/19 09:11 07/10/19 09:11 07/10/19 09:11 Oxygen Delivery Method Room Air Weight: 76.8 kg Body Mass Index (BMI) 28.9 Finger Stick Blood Glucose 135 Orthostatic Vital Signs Start: 07/09/19 13:54 Freq: q24h Status: Active Protocol: Activity Type Activity Date Activity User E-Sign Co-Sign Detail Recorded Client Recorded Date Recorded By Document 07/10/19 09:11 [id number] [id number] 07/10/19 09:15 HANK 07/10/19 09:11 Orthostatic Vitals Standing -Blood Pressure (90/60-120/80) 146/75 H -Extremity Use Left Arm -Pulse Rate (60-100) 101 H Sitting -Blood Pressure (90/60-120/80) 152/67 H -Extremity Use Left Arm -Pulse Rate (60-100) 96 Intake and Output for Last 24 Hours 07/08/19 07/09/19 07/10/19 23:59 23:59 23:59 Intake Total 1587.5 / 1587.5 0 / 0 Balance 1587.5 / 1587.5 0 / 0 General: Alert, Cooperative, No apparent distress HEENT: Atraumatic, Normocephalic Oral: Moist Mucosa, No Gingival or Mucosal Lesions/ Ulcerations Neck: No Nodes, Trachea Midline Lungs: Clear to auscultation, Normal air movement, No rhonchi, No wheeze, No rales Cardiovascular: Regular rate, Regular Rhythm, Normal S1, Normal S2, No murmurs Abdomen: Bowel Sounds Present, Soft, Non Tender, Non-Distended, No Hepato- splenomegaly Extremities: No edema, No Calf Tenderness Microbiology Past 72 Hours 07/09/19 07:02 Mucosa - Nose Influenza Types A,B Direct FA (RACH) - Final Laboratory Results 07/10/19 07:50: WBC 15.2 H, RBC 3.59 L, Hgb 12.5, Hct 37.8, MCV 105.3 H, MCH 34.8 H, MCHC 33.1, RDW Std Deviation 50.8 H, RDW Coeff of Taran 13.2, Plt Count 223, MPV 10.8, Immature Gran % (Auto) 0.600, Neut % (Auto) 80.9 H, Lymph % (Auto) 10.2 L, [place] % (Auto) 7.2, Eos % (Auto) 0.7, Baso % (Auto) 0.4, Absolute Neuts (auto) 12.3 H, Absolute Lymphs (auto) 1.55, Nucleated RBC % 0 07/10/19 07:50: Sodium 137, Potassium 3.9, Chloride 103, Carbon Dioxide 29.0, Anion Gap 5, BUN 8, Creatinine 0.67, Estim Creat Clear Calc 41.97, Est GFR (MDRD) Af Amer 110, Est GFR (MDRD) Non-Af 91, BUN/Creatinine Ratio 11.9, Glucose 105, Calcium 8.8 Current Medications Acetaminophen (Tylenol) 650 mg PO Q6H PRN PRN PRN Reason: Pain Score 1-3/Temp > 100.7 F Last Admin: 07/09/19 12:03 Dose: 650 mg Documented by: Hydrocodone Bitart/Acetaminophen ([place] 5mg-325mg) 1 tablet PO TID PRN PRN Reason: PAIN 1-04/19 Last Admin: 07/10/19 05:37 Dose: 1 tablet Documented by: Amlodipine Besylate (Norvasc) 5 mg PO DAILY [facility] Last Admin: 07/10/19 09:23 Dose: 5 mg Documented by: Ascorbic Acid (Vitamin C) 500 mg PO DAILY@0800 [facility] Last Admin: 07/10/19 09:23 Dose: 500 mg Documented by: Benzonatate (Tessalon Perle) 100 mg PO TID PRN PRN PRN Reason: COUGH Budesonide (Pulmicort Aerosol) 0.5 mg INHALATION Q12H.RT [facility] Last Admin: 07/10/19 07:27 Dose: 0.5 mg Documented by: Gabapentin (Neurontin) 300 mg PO QHS [facility] Last Admin: 07/09/19 23:02 Dose: 300 mg Documented by: Glucagon () 1 mg IM .X1 PRN PRN Reason: Hypoglycemia Guaifenesin/Codeine Phosphate (Robitussin Ac) 10 ml PO Q4H PRN PRN Last Admin: 07/09/19 18:16 Dose: 10 ml Documented by: Dextrose (Dextrose 10%-Water) 250 mls @ 999 mls/hr IV .Q16M PRN; Protocol PRN Reason: HYPOGLYCEMIA Levothyroxine Sodium (Synthroid) 100 mcg PO DAILY@0600 [facility] Last Admin: 07/10/19 05:37 Dose: 100 mcg Documented by: Loratadine (Claritin) 10 mg PO DAILY [facility] Last Admin: 07/10/19 09:23 Dose: 10 mg Documented by: Losartan Potassium (Cozaar) 75 mg PO DAILY [facility] Last Admin: 07/10/19 09:22 Dose: 75 mg Documented by: Metoprolol Succinate (Toprol Xl (Beta Altaf)) 50 mg PO DAILY [facility] Last Admin: 07/10/19 09:23 Dose: 50 mg Documented by: Montelukast Sodium (Singulair) 10 mg PO DAILY [facility] Last Admin: 07/10/19 09:24 Dose: 10 mg Documented by: Nutritional Formula (Lactose Free) (Ensure Enlive) 120 ml PO 4X/DAY [facility] Last Admin: 07/10/19 09:27 Dose: 120 ml Documented by: Nystatin (Nystatin) 500,000 unit PO 4X/DAY [facility] Last Admin: 07/10/19 09:23 Dose: 500,000 unit Documented by: Ondansetron HCl (Zofran Odt) 4 mg PO Q8H PRN PRN PRN Reason: NAUSEA Ondansetron HCl (Zofran) 4 mg IV Q8H PRN PRN PRN Reason: NAUSEA/VOMITING Pravastatin Sodium (Pravachol) 80 mg PO QHS [facility] Last Admin: 07/09/19 23:02 Dose: 80 mg Documented by: Discharge Diet: Low fat/ Low Cholesterol Discharge Activity: Return to Normal Activity, - - Get up slowly from laying and sitting. Call your doctor if you observe: Fainting spells, - - dizziness Home Medications: Medications to take at Discharge Montelukast [Singulair] 10 mg PO DAILY 07/12/14 Levothyroxine [Synthroid] 100 mcg PO DAILY 06/02/16 Pravastatin Sodium 80 mg PO QHS 09/26/16 Ascorbic Acid [Vitamin C] 500 mg PO DAILY@0800 05/06/17 Cetirizine HCl [Allergy Relief] 10 mg PO DAILY 05/06/17 Amlodipine [Norvasc] 5 mg PO DAILY 09/04/18 Gabapentin [Neurontin] 300 mg PO QHS 09/04/18 Hydrocodone/Acetaminophen [Hydrocodone-Acetamin 7.5-325] 1 each PO TID PRN 09/04/18 Metoprolol Succinate [Toprol Xl] 50 mg PO DAILY 09/05/18 Beclomethasone Dipropionate [Qvar Redihaler] 2 puff INHALATION BID 03/27/19 Ondansetron [Zofran Odt] 4 mg PO Q8H PRN PRN #7 tab 07/02/19 Benzonatate 100 mg PO TID PRN PRN 07/09/19 Codeine Phosphate/Guaifenesin [Codeine-Guaifen 10-100 mg/5 ml] 10 ml PO Q4H PRN PRN 07/09/19 Ondansetron [Zofran Odt] 4 mg PO Q8H PRN PRN #10 tab 07/09/19 Nystatin 500,000 unit PO 4X/DAY #56 udc 07/10/19 Following Prescrptions Were Given to Patient: Nystatin 500,000 unit PO 4X/DAY #56 udc Transmission Status: [id number] Ondansetron [Zofran Odt] 4 mg PO Q8H PRN PRN #10 tab PRN Reason: Nausea Prescription Printed Primary Care Physician: Jaime Culver Chi, MD [Primary Care Provider] - Within 2 Weeks Patient Instructions: SYNCOPE, Vasovagal Disposition: Home Minutes spent on discharge:: 28 Patient Condition:: Good Medical Necessity - Tobacco Use Smoking Status: Never smoker Meaningful Use Info Meaningful Use Diagnoses (Choose all that apply): None applicable Code Visit OBSV E&M: 31784 Observation care discharge
== END 2019-07-10 11:38 | disposition home or self-care (01) ==
LOC: ED 08:04 → PCU 12:07
PROVIDERS: Emergency Provider Emergency Medicine; Family Provider Family Medicine Geriatric Medicine; PCP Family Medicine Geriatric Medicine
DX: R55 Syncope and collapse (principal); R11.0 Nausea; M51.36 Other intervertebral disc degeneration, lumbar region; E78.5 Hyperlipidemia, unspecified; I10 Essential (primary) hypertension; E03.9 Hypothyroidism, unspecified; G89.29 Other chronic pain; D72.829 Elevated white blood cell count, unspecified; E87.1 Hypo-osmolality and hyponatremia; J45.909 Unspecified asthma, uncomplicated; G25.81 Restless legs syndrome; Z79.899 Other long term (current) drug therapy
CPT/HCPCS: 36415; 71046; 72100; 80048; 81001; 84484; 85025; 87804; 93005; 93306; 94640; 96361; 96374; 96375; 97161; 97166; 97802; 99218; 99285; J7030; A4216; G0378; J2405

== ENCOUNTER → 2019-07-24 14:41 | Outpatient (CLI) | payer MEDICARE, SELFPAY ==
[2019-03-27 11:13] VITALS: BMI 33.0
[2019-07-09 08:59] VITALS: BMI 28.9
[2019-07-24 15:10] LABS: Absolute Lymphocyte Count 1.25 X10^3/uL (0.83-4.51); Absolute Neutrophil Count 12.4 X10^3/uL (2.0-7.7); Basophil# 0.09 X10^3/uL; Basophil% 0.6 % (0-1); Lymphocyte # 1.25 X10^3/ul (4.0); Lymphocyte % 8.4 % (19-41); Mean Corp Hgb Conc 32.5 g/dL (32-36); Mean Corpuscular Hgb 34.3 pg (27.0-32.0); Mean Corpuscular Volume 105.5 fL (81-99); Mean Platelet Vol. 10.8 fl (6.2-12.0); Monocyte# 0.45 X10^3/uL; NRBC Flagged by Analyzer 0 % (0-5); Neutrophil # 12.42 X10^3/uL (2.7-7.7); Neutrophil % 83.5 % (47-70); Platelet Count 366 K/mm3 (150-450); RBC Distribution Width CV 13.1 % (11.6-14.6); RBC Distribution Width SD 50.4 fl (35.1-43.9); Red Blood Count 3.79 M/mm3 (4.2-5.4); White Blood Count 14.9 K/mm3 (4.4-11.0)
[2019-07-24 15:33] LABS: ALB/GLOB Ratio 0.9 RATIO (0.9-2.4); AST(SGOT) 16 U/L (15-37); Alanine Aminotransfer ALT/SGPT 41 U/L (13-56); Albumin, Serum 3.4 g/dL (3.2-5.0); Alkaline Phosphatase 97 U/L (45-117); Anion Gap 8 (5-15); BUN 16 mg/dL (7-18); BUN/Creat Ratio 17.2 RATIO (10-20); Chloride 105 mmol/L (98-107); Creatinine, Serum 0.93 mg/dL (0.55-1.02); EST Glomerular Filtration Rate 62 mL/min (>60); Est Glom Filt Rate - Afr Amer 75 mL/min (>60); Globulin 3.9 g/dL (2.2-4.2); Glucose 210 mg/dL (74-106); Protein, Total 7.3 g/dL (6.4-8.2); Sodium Level 137 mmol/L (136-145); Thyroid Stim Hormone (TSH) 1.53 uIU/mL (0.358-3.74); Vitamin D,25 Hydroxy 27.3 ng/mL (29.95-100.01)
[2019-07-26 10:13] LABS: Hemoglobin A1c 6.3 % (4.2-6.3)
== END ==
PROVIDERS: Visit Provider Family Medicine Geriatric Medicine
DX: E11.9 Type 2 diabetes mellitus without complications (principal); I10 Essential (primary) hypertension; E55.9 Vitamin D deficiency, unspecified; E03.9 Hypothyroidism, unspecified
CPT/HCPCS: 36415; 80053; 82306; 83036; 84443; 85025

== ENCOUNTER → 2019-07-30 16:03 | Outpatient (CLI) | payer MEDICARE, SELFPAY ==
[2019-07-09 08:59] VITALS: BMI 28.9
== END ==
PROVIDERS: PCP Family Medicine Geriatric Medicine; Referring Provider Family Medicine Geriatric Medicine; Visit Provider Family Medicine Geriatric Medicine
DX: R68.83 Chills (without fever) (principal)
CPT/HCPCS: 87633

== ENCOUNTER → 2019-08-08 12:47 | Outpatient (CLI) | payer MEDICARE, SELFPAY ==
[2019-07-09 08:59] VITALS: BMI 28.9
--- NOTE | 2019-08-08 12:51 | VDLE_ITS ---
Reason For Study: EDEMA RIGHT LEFT GSV is normal. GSV is normal. CFV is compressible, spontaneous, phasic, CFV is compressible, spontaneous, phasic, competent and demonstrates normal competent, and demonstrates normal augmentation. augmentation. FV is compressible, spontaneous, phasic, FV is compressible, spontaneous, phasic, competent and demonstrates normal competent and demonstrates normal augmentation. augmentation. POP V is compressible, spontaneous, phasic, POP V is compressible, spontaneous, phasic, competent and demonstrates normal competent and demonstrates normal augmentation. augmentation. PTV is compressible. T/P Trunk is compressible. RT PerV is compressible. PTV is compressible. Rt T/P Trunk not visualized due to bandages. LT PerV is compressible. Procedure Exam performed in department. A preliminary report was called and/or faxed to Dr Culver. Interpretation Summary Deep veins of the lower extremities are bilaterally patent and compressible segmentally. There is no evidence of deep vein thrombosis on either side. Valvular competence appears intact within the proximal deep venous systems bilaterally. The great saphenous veins appear bilaterally patent and compressible segmentally. The right tibio-peroneal trunk was not visualized due to the presence of bandages. Ordering Physician: Jaime Culver Referring Physician: JAIME CULVER CHI Performed By: Rain Hernandez, RDCS, RVT
== END ==
PROVIDERS: PCP Family Medicine Geriatric Medicine; Referring Provider Family Medicine Geriatric Medicine; Visit Provider Family Medicine Geriatric Medicine
DX: R60.0 Localized edema (principal)
CPT/HCPCS: 93970

== ENCOUNTER 2019-08-10 11:21 | Outpatient (RCR) | payer MEDICARE, SELFPAY ==
[2019-07-09 08:59] VITALS: BMI 28.9
[2019-08-10 08:26] VITALS: BP 195/87; PULSE 67; RESP 16; TEMP 36.2; BMI 28.9
--- NOTE | 2019-08-10 10:29 | HP.PCM_ITS ---
(1) Traumatic ulcer of right lower extremity with fat layer exposed Status: Acute Current Visit: Yes Code(s): L97.912 - Non-pressure chronic ulcer of unspecified part of right lower leg with fat layer exposed (2) Bilateral lower extremity edema Status: Acute Current Visit: Yes Code(s): R60.0 - Localized edema (3) Orthostatic hypotension Status: Chronic Current Visit: No Code(s): I95.1 - Orthostatic hypotension (4) Syncope Status: Chronic Current Visit: No Code(s): R55 - Syncope and collapse (5) Benign hypertension Status: Chronic Current Visit: No Code(s): I10 - Essential (primary) hypertension (6) HLD (hyperlipidemia) Status: Chronic Current Visit: No Code(s): E78.5 - Hyperlipidemia, unspecified History of Present Illness Date of Service: 08/10/19 Chief Complaint: right knee wounds History of Wound: Patient is a pleasant 74-year-old female who presents to the wound healing center today, 08/10/2019, for an initial evaluation of right knee wounds s/p traumatic fall. Patient reports an episode of orthostatic hypotension/dizziness on 08/01/2019 which resulted in a fall on cement, landing on her right knee. She was evaluated by her primary care provider, Dr. Culver, a few days later and was started on doxycycline due to concern for infection of right knee wounds. No culture was collected at that time, and no knee x-rays were ordered. She did have bilateral lower extremity venous Doppler studies ordered to evaluate for DVT, which were negative. Patient was instructed to use bacitracin ointment to right knee wounds and cover with Telfa daily. She tried wrapping her right knee with an Gulshan bandage, but was unable to tolerate the compression on her knee due to discomfort. Since her fall, patient has had swelling of her right knee and right lower extremity, as well as mild swelling in her left lower extremity. The patient reports she never has problems with swelling otherwise. The patient denies any fever, chills, nausea, vomiting, or diarrhea. Denies any increasing pain, redness, or purulent/foul-smelling drainage from affected area. Patient significant past medical history includes orthostatic hypotension, syncope, hypertension, hyperlipidemia, hypothyroidism, chronic low back pain, and asthma. She has not had any recent lab work collected, however she is a newer patient of Dr. Culver and anticipates upcoming lab work to be ordered by him. Past Medical History Past Medical History: Chronic Problems (Last Updated 07/09/19 @ 10:09 by Dusty Arana DO) Benign hypertension (Chronic) HLD (hyperlipidemia) (Chronic) Hypothyroidism (Chronic) Chronic low back pain (Chronic) Seasonal allergies (Chronic) Syncope (Chronic) Orthostatic hypotension (Chronic) Surgical History: appendectomy, hysterectomy, tonsillectomy Allergies/Adverse Reactions: Allergies acetaminophen [From Tylenol-Codeine #3] Allergy (Verified 07/09/19 06:22) Nausea codeine phosphate [From Tylenol-Codeine #3] Allergy (Verified 07/09/19 06:22) Nausea Home Medications: Ambulatory Orders Medication Instructions Recorded Montelukast [Singulair] 10 mg PO DAILY 07/12/14 Levothyroxine [Synthroid] 100 mcg PO DAILY 06/02/16 Cetirizine HCl [Allergy Relief] 10 mg PO DAILY 05/06/17 Gabapentin [Neurontin] 300 mg PO QHS 09/04/18 Hydrocodone/Acetaminophen 1 each PO TID PRN 09/04/18 [Hydrocodone-Acetamin 7.5-325] Metoprolol Succinate [Toprol Xl] 50 mg PO DAILY 09/05/18 Beclomethasone Dipropionate [Qvar 2 puff INHALATION BID 03/27/19 Redihaler] Benzonatate 100 mg PO TID PRN PRN 07/09/19 Cetirizine HCl [Zyrtec] 10 mg PO 08/10/19 Doxycycline Hyclate 100 mg PO BID 08/10/19 Varicella-Zoster Ge/As01b/Pf 50 mcg IM X1 08/10/19 [Shingrix Vial Kit] - Family History Maternal Heart Disease Paternal Heart Disease Smoking Status: Never smoker Review of Systems Constitutional: Denies: Anorexia, Chills, Fever, Weight Change Eyes: Denies: Pain, Vision Change HEENT: Denies: Difficulty Hearing, Difficulty Swallowing, Sinus Congestion Cardiovascular: Denies: Chest Pain, Palpitations Respiratory: Denies: Cough, Shortness of Breath Gastrointestinal: Denies: Abdominal Pain, Diarrhea, Nausea, Vomiting Genitourinary: Denies: Dysuria, Hematuria Musculoskeletal: Reports: Joint Pain - Right knee, Joint swelling - Right knee, Joint Tenderness - Right knee Skin: Reports: Wounds - Right knee s/p fall Neurological: Reports: Balance problems - Chronic orthostatic hypotension with syncope Endocrine: Denies: Heat/ Cold Intolerance, Polydipsia, Polyuria Hematologic/ Lymphatic: Denies: Easy Bruising, Easy Bleeding - Physical Exam Vital Signs Temp Pulse Resp BP 97.1 F L 67 16 195/87 H 08/10/19 08:26 08/10/19 08:26 08/10/19 08:26 08/10/19 08:26 General: Alert, Oriented x3, Cooperative, No apparent distress HEENT: Atraumatic, EOMI, Normocephalic Oral: Moist Mucosa Neck: Supple, No JVD, Trachea Midline Lungs: Clear to auscultation, Normal air movement, No rhonchi, No wheeze, No rales Cardiovascular: Regular rate, Regular Rhythm Abdomen: Bowel Sounds Present, Soft, Non Tender, Non-Distended Extremities: No clubbing, No cyanosis, Capillary Refill Less than 3 Seconds, Edema - 2+ pitting edema of right lower extremity; 1+ pitting edema of left lower extremity, Peripheral Pulses Normal, Tenderness - Tenderness to palpation of bilateral lower extremities Skin: Ulcer/ Wound - Traumatic ulcers to right knee x3, with subcutaneous layer exposed. Moderate amounts of slough and devitalized tissue removed from wound bed. Mild arminda-ulcer erythema and swelling. No foul-smelling or purulent drainage. No warmth to palpation. Moderate tenderness to palpation., - - Blister present on right dorsal foot, intact. Wound Measurements and Assessment WC - Nurse 1 - General Ulcer Measurement Start: 08/10/19 08:26 Freq: Status: Active Protocol: Activity Type Activity Date Activity User E-Sign Co-Sign Detail Recorded Client Recorded Date Recorded By Document 08/10/19 08:26 MW [id number] 08/10/19 08:45 MW 08/10/19 08:26 Wound Center Nurse 1 [Ulcer Assessment] #1 right knee cluster -Combined with other wound No -Current Size (cm) - Length 6.9 -Current Size (cm) - Width 6.4 -Current Size (cm) - Depth 0.1 -Total Square Cm 44.16 -Date of Last Picture (Recall this 08/10/19 field) -Photo Taken Yes -Epithelialization None Present -Tunneling No -Undermining/Tunneling No -Circular Undermining No -Exudate Amt Large -Exudate Type Serosanguineous -Wound Margin Flat & Intact -Granulation Amt None Present (0 %) -Granulation Quality N/A -Slough/Fibrin Yes -Necrosis Amt Large (67-100%) -Necrotic Tissue Type Adherent Slough -Structure Exposed N/A -Texture (Arminda-wound Skin Appearance) Assessed, Localized Edema -Moisture (Arminda-wound Skin Appearance No Abnormality, ) Assessed -Color (Arminda-wound Skin Appearance) Assessed,Rubor -Temperature (Arminda-wound Skin No Abnormality Appearance) (Pt Warm) -Tenderness on Palpation (Arminda-wound Yes Skin Appearance) -Ulcer Cleansing Rinsed/ Irrigated with Saline -Foul Odor after Cleansing No -Anesthetic Used 4% Lidocaine Solution [Edema Assessment] -Lower Limb Edema Present No -Right Calf (cm) 33.8 -Right Ankle (cm) 24.8 -Left Calf (cm) 32.1 -Point of Measurement (cm from the 22.2 medial instep) WC - Nurse 2 - General Ulcer CM Notes Start: 08/10/19 08:26 Freq: Status: Active Protocol: Activity Type Activity Date Activity User E-Sign Co-Sign Detail Recorded Client Recorded Date Recorded By Document 08/10/19 09:01 DV [id number] 08/10/19 09:20 DV 08/10/19 09:01 Wound Center Nurse 2 [Procedure/Treatment] #1 right knee cluster -Time 09:02 -Correct Patient Yes -Correct Side, Site, Position Yes -Correct Procedure Yes -Procedure Performed Yes -Type of Procedure Debridement -Clinical Debridement Subcutaneous -Post Debridement Size (cm) - Length 6.6 -Post Debridement Size (cm) - Width 7.2 -Post Debridement Size (cm) - Depth 0.1 -Total Square Cm 47.52 -Wound/Ulcer Outcome Not Healed -Ulcer Cleansing Rinsed/ Irrigated with Saline -Foul Odor after Cleansing No -Bioengineered Tissue No -Bleeding Controlled with Pressure -Offloading No -Treatment Response Procedure Tolerated Well [See Physician Procedure note for Specifics] Pain Scale: 0-10 Numeric [Pain] -Is Patient Pain Free? Yes Neurological: Tongue Deviation - To left, Sensory exam intact to light touch and pain, Coordination normal Psych/Mental Status: Normal Affect, Appropriate, Alert and oriented to time, place, person, mood and affect Debridement Note Post-Debridement Measurements/Treatment WC - Nurse 2 - General Ulcer CM Notes Start: 08/10/19 08:26 Freq: Status: Active Protocol: Activity Type Activity Date Activity User E-Sign Co-Sign Detail Recorded Client Recorded Date Recorded By Document 08/10/19 09:01 DV [id number] 08/10/19 09:20 DV 08/10/19 09:01 Wound Center Nurse 2 #1 right knee cluster -Time 09:02 -Correct Patient Yes -Correct Side, Site, Position Yes -Correct Procedure Yes -Procedure Performed Yes -Type of Procedure Debridement -Clinical Debridement Subcutaneous -Post Debridement Size (cm) - Length 6.6 -Post Debridement Size (cm) - Width 7.2 -Post Debridement Size (cm) - Depth 0.1 -Total Square Cm 47.52 -Wound/Ulcer Outcome Not Healed -Ulcer Cleansing Rinsed/ Irrigated with Saline -Foul Odor after Cleansing No -Bioengineered Tissue No -Bleeding Controlled with Pressure -Offloading No -Treatment Response Procedure Tolerated Well Pain Scale: 0-10 Numeric Is Patient Pain Free? Yes Wound debrided: Right knee cluster Laterality: Right Type of Debridement: Excisional debridement Anesthesia Used: 4% Lidocaine Solution Depth: in the subcutaneous layer Percentage of wound debrided: 100 Instrument Used: 5mm curette Tissue Removed: Slough and devitalized tissue Severity: Fat Layer Exposed Amount of bleeding with debridement: Mild Bleeding Controlled with: Compression and gauze Patient tolerated procedure well Assessment/Plan Active Problems (Last Updated 07/09/19 @ 10:09 by Dusty Arana DO) Traumatic ulcer of right lower extremity with fat layer exposed (Acute) Bilateral lower extremity edema (Acute) Assessment: Traumatic ulcer of RLE with fat layer exposed, acute. Bilateral lower extremity edema, acute Plan: Debridement performed today in clinic. Fibracol applied. At home wound- care instructions: Change Fibracol dressing daily. You may remove dressing to shower. Wash arminda-ulcer area with mild antibacterial soap and water, rinse well and pat dry. Replace with a clean dressing following shower. May use ice to right knee for pain and swelling. Limit application of ice to 20 minutes per application, followed by at least 20 minutes without. Be sure to wrap ice/ice pack in a towel before applying to knee. For any uncontrolled pain, contact primary care provider. Compression: Single-layer Tubigrip applied today in office. Off-loading: Patient instructed to keep feet elevated at or above waist level as much as possible. Avoid prolonged standing or dangling of legs. Diet: Patient encouraged to increase protein and vitamin C intake while taking caution to avoid high carbohydrate and/or sugar intake. Labs/cultures/imaging: Cultures ordered and collected today. Routine baseline labwork ordered. Patient encouraged to contact Dr. Culver's office to see if any additional labs should be ordered by Dr. Culver for his routine monitoring, to avoid having multiple blood draws. Follow-up: Return to clinic in 1 week for re-evaluation. Return sooner or report to the emergency room should symptoms worsen, or new symptoms arise. Note: [employer] speech recognition traffic engineering technician software was used to create portions of this document. Sound-alike and misspelled words, as well as other traffic engineering technician errors may be contained in the documentation. Code Visit Office Visits / Consults: 52180 OV L4 New 111xxx-113xx: [id number] Radhika subq tissue 20 sq cm/<
[2019-08-10 17:56] LABS: M R Staph aureus DNA By PCR Negative (Negative); Probe Check PASS; Staph aureus DNA By PCR NEGATIVE (Negative)
== END 2019-08-10 23:59 ==
LOC: WC 11:21
PROVIDERS: PCP Family Medicine Geriatric Medicine; Visit Provider Nurse Practitioner Family
DX: L97.812 Non-pressure chronic ulcer of other part of right lower leg with fat layer exposed (principal); R60.0 Localized edema; Z91.81 History of falling; I10 Essential (primary) hypertension; E78.5 Hyperlipidemia, unspecified; Z86.19 Personal history of other infectious and parasitic diseases; E03.9 Hypothyroidism, unspecified; G89.29 Other chronic pain; Z79.899 Other long term (current) drug therapy
CPT/HCPCS: 11042; 11045; 87070; 87075; 87077; 87186; 87205; 87640; 99213; G0463

== ENCOUNTER → 2019-08-21 15:01 | Outpatient (CLI) | payer MEDICARE, SELFPAY ==
[2019-08-17 09:52] VITALS: BMI 28.9
[2019-08-21 15:57] LABS: Hematocrit 38.9 % (37-47); Hemoglobin 12.4 g/dL (12.0-15.0); Mean Corp Hgb Conc 31.9 g/dL (32-36); Mean Corpuscular Hgb 33.7 pg (27.0-32.0); Mean Corpuscular Volume 105.7 fL (81-99); Mean Platelet Vol. 10.8 fl (6.2-12.0); Platelet Count 258 K/mm3 (150-450); RBC Distribution Width CV 13.8 % (11.6-14.6); RBC Distribution Width SD 53.7 fl (35.1-43.9); Red Blood Count 3.68 M/mm3 (4.2-5.4); White Blood Count 9.7 K/mm3 (4.4-11.0)
[2019-08-21 16:13] LABS: Erythrocyte Sedimentation Rate 18 mm/hr (0-30)
[2019-08-21 16:52] LABS: AST(SGOT) 17 U/L (15-37); Alanine Aminotransfer ALT/SGPT 32 U/L (13-56); Albumin, Serum 3.6 g/dL (3.2-5.0); Alkaline Phosphatase 79 U/L (45-117); Anion Gap 7 (5-15); BUN 15 mg/dL (7-18); BUN/Creat Ratio 19.4 RATIO (10-20); Chloride 104 mmol/L (98-107); Creatinine, Serum 0.78 mg/dL (0.55-1.02); EST Glomerular Filtration Rate 77 mL/min (>60); Est Glom Filt Rate - Afr Amer 93 mL/min (>60); Globulin 3.6 g/dL (2.2-4.2); Glucose 120 mg/dL (74-106); Potassium 3.8 mmol/L (3.5-5.1); Protein, Total 7.2 g/dL (6.4-8.2); Sodium Level 137 mmol/L (136-145)
== END ==
PROVIDERS: PCP Family Medicine Geriatric Medicine; Referring Provider Family Medicine Geriatric Medicine; Visit Provider Nurse Practitioner Family
DX: I10 Essential (primary) hypertension (principal); L97.819 Non-pressure chronic ulcer of other part of right lower leg with unspecified severity; R55 Syncope and collapse
CPT/HCPCS: 36415; 80053; 84134; 85027; 85652

== ENCOUNTER 2019-08-28 13:30 | Outpatient (RCR) | payer MEDICARE, SELFPAY ==
[2019-08-11 01:18] VITALS: BP 195/87; PULSE 67; RESP 16; TEMP 36.2
[2019-08-17 09:52] VITALS: BP 189/85; PULSE 78; RESP 18; TEMP 36.2; BMI 28.9
--- NOTE | 2019-08-17 11:06 | PN.PCM_ITS ---
(1) Traumatic ulcer of right lower extremity with fat layer exposed Status: Acute Current Visit: Yes Code(s): L97.912 - Non-pressure chronic ulcer of unspecified part of right lower leg with fat layer exposed (2) Bilateral lower extremity edema Status: Chronic Current Visit: Yes Code(s): R60.0 - Localized edema Type of Wound Date of Service: 08/17/19 Chief Complaint: right knee wounds History of Wound: Patient is a pleasant 74-year-old female who presents to the wound healing center 08/10/2019, for an initial evaluation of right knee wounds s/p traumatic fall. Patient reports an episode of orthostatic hypotension/dizziness on 08/01/2019 which resulted in a fall on cement, landing on her right knee. She was evaluated by her primary care provider, Dr. Culver, a few days later and was started on doxycycline due to concern for infection of right knee wounds. No culture was collected at that time, and no knee x-rays were ordered. She did have bilateral lower extremity venous Doppler studies ordered to evaluate for DVT, which were negative. Patient was instructed to use bacitracin ointment to right knee wounds and cover with Telfa daily. She tried wrapping her right knee with an NICK bandage, but was unable to tolerate the compression on her knee due to discomfort. Since her fall, patient has had swelling of her right knee and right lower extremity, as well as mild swelling in her left lower extremity. The patient reports she never has problems with swelling otherwise. The patient denies any fever, chills, nausea, vomiting, or diarrhea. Denies any increasing pain, redness, or purulent/foul-smelling drainage from affected area. Patient significant past medical history includes orthostatic hypotension, syncope, hypertension, hyperlipidemia, hypothyroidism, chronic low back pain, and asthma. She has not had any recent lab work collected, however she is a newer patient of Dr. Culver and anticipates upcoming lab work to be ordered by him. Progress of Wound: Improvement in size and appearance of right knee ulcers today. Patient was prescribed Keflex in addition to doxycycline by Dr. Culver, for increased pain in right knee. She is taking these medications as prescribed. Her wound cultures were positive for rare Staphylococcus epidermidis and rare Corynebacterium species, with negative anaerobic cultures. It is unclear whether she has been compliant with the proper use of well moistened Fibracol and Adaptic to right knee ulcers, as patient demonstrates much confusion at today's visit in regards to wound dressings. She states she is doing well, without fever or chills. She denies any increasing pain, swelling, redness, or foul-smelling/purulent drainage. She does feel her wound has been dry. - Physical Exam Vital Signs Temp Pulse Resp BP 97.1 F L 78 18 189/85 H 08/17/19 09:52 08/17/19 09:52 08/17/19 09:52 08/17/19 09:52 General: Alert, Cooperative, No apparent distress HEENT: Atraumatic, EOMI, Normocephalic Oral: Moist Mucosa Neck: Supple, Trachea Midline Lungs: Normal air movement Cardiovascular: Regular rate Extremities: No clubbing, No cyanosis, Capillary Refill Less than 3 Seconds, No Calf Tenderness, Edema - Trace peripheral edema of right lower extremity., Peripheral Pulses Normal Skin: Ulcer/ Wound - Traumatic ulcers to right knee x3, with subcutaneous layer exposed. Small amounts of slough and devitalized tissue removed from wound bed. Mild arminda-ulcer erythema. Swelling of right knee has greatly improved from last week. No foul-smelling or purulent drainage. No warmth to palpation. Mild tenderness on manipulation of ulcers. Wound Measurements and Assessment WC - Nurse 1 - General Ulcer Measurement Start: 08/17/19 09:52 Freq: Status: Active Protocol: Activity Type Activity Date Activity User E-Sign Co-Sign Detail Recorded Client Recorded Date Recorded By Document 08/17/19 09:52 [id number] 08/17/19 09:54 RB 08/17/19 09:52 Wound Center Nurse 1 [Ulcer Assessment] #1 right knee cluster -Combined with other wound No -Current Size (cm) - Length 6 -Current Size (cm) - Width 6 -Current Size (cm) - Depth 0.1 -Total Square Cm 36 -Tunneling No -Undermining/Tunneling No -Circular Undermining No -Exudate Amt None Present -Wound Margin Flat & Intact -Granulation Amt Small (1-33%) -Granulation Quality [place] -Slough/Fibrin Yes -Necrosis Amt Large (67-100%) -Necrotic Tissue Type Adherent Slough -Structure Exposed N/A -Texture (Arminda-wound Skin Appearance) Assessed -Moisture (Arminda-wound Skin Appearance Dry/Scaly ) -Color (Arminda-wound Skin Appearance) Assessed -Temperature (Arminda-wound Skin No Abnormality Appearance) (Pt Warm) -Tenderness on Palpation (Arminda-wound No Skin Appearance) -Ulcer Cleansing Wound Cleanser -Foul Odor after Cleansing No -Anesthetic Used 4% Lidocaine Solution WC - Nurse 2 - General Ulcer CM Notes Start: 08/17/19 09:52 Freq: Status: Active Protocol: Activity Type Activity Date Activity User E-Sign Co-Sign Detail Recorded Client Recorded Date Recorded By Document 08/17/19 10:57 DV [id number] 08/17/19 10:59 DV 08/17/19 10:57 Wound Center Nurse 2 [Procedure/Treatment] -Time 10:57 -Correct Patient Yes -Correct Side, Site, Position Yes -Correct Procedure Yes -Procedure Performed Yes -Type of Procedure Debridement -Clinical Debridement Subcutaneous -Post Debridement Size (cm) - Length 6.5 -Post Debridement Size (cm) - Width 7.0 -Post Debridement Size (cm) - Depth 0.1 -Total Square Cm 45.50 -Wound/Ulcer Outcome Not Healed -Ulcer Cleansing Rinsed/ Irrigated with Saline -Foul Odor after Cleansing No -Bioengineered Tissue No -Bleeding Controlled with Pressure -Offloading No -Treatment Response Procedure Tolerated Well [See Physician Procedure note for Specifics] Pain Scale: 0-10 Numeric [Pain] -Is Patient Pain Free? Yes Psych/Mental Status: Normal Affect, Appropriate Debridement Note Post-Debridement Measurements/Treatment WC - Nurse 2 - General Ulcer CM Notes Start: 08/17/19 09:52 Freq: Status: Active Protocol: Activity Type Activity Date Activity User E-Sign Co-Sign Detail Recorded Client Recorded Date Recorded By Document 08/17/19 10:57 DV [id number] 08/17/19 10:59 DV 08/17/19 10:57 Wound Center Nurse 2 #1 right knee cluster -Time 10:57 -Correct Patient Yes -Correct Side, Site, Position Yes -Correct Procedure Yes -Procedure Performed Yes -Type of Procedure Debridement -Clinical Debridement Subcutaneous -Post Debridement Size (cm) - Length 6.5 -Post Debridement Size (cm) - Width 7.0 -Post Debridement Size (cm) - Depth 0.1 -Total Square Cm 45.50 -Wound/Ulcer Outcome Not Healed -Ulcer Cleansing Rinsed/ Irrigated with Saline -Foul Odor after Cleansing No -Bioengineered Tissue No -Bleeding Controlled with Pressure -Offloading No -Treatment Response Procedure Tolerated Well Pain Scale: 0-10 Numeric Is Patient Pain Free? Yes Wound debrided: Right knee cluster Laterality: Right Type of Debridement: Excisional debridement Anesthesia Used: 4% Lidocaine Solution Depth: in the subcutaneous layer Percentage of wound debrided: 100 Instrument Used: 7mm curette Tissue Removed: Often devitalized tissue Severity: Fat Layer Exposed Amount of bleeding with debridement: Mild Bleeding Controlled with: Pressure Patient tolerated procedure well Assessment/Plan Active Problems (Last Updated 07/09/19 @ 10:09 by Dusty Arana DO) Traumatic ulcer of right lower extremity with fat layer exposed (Acute) Bilateral lower extremity edema (Chronic) Assessment: Traumatic ulcer of RLE with fat layer exposed, acute. Bilateral lower extremity edema, acute Plan: Debridement performed today in clinic. Well moistened Fibracol applied. Covered with Adaptic and gauze. At home wound-care instructions: Change Fibracol dressing daily. Moisten well with saline solution before applying. You may remove dressing to shower. Wash arminda-ulcer area with mild antibacterial soap and water, rinse well and pat dry. Replace with a clean dressing following shower. May use ice to right knee for pain and swelling. Limit application of ice to 20 minutes per application, followed by at least 20 minutes without. Be sure to wrap ice/ice pack in a towel before applying to knee. For any uncontrolled pain, contact primary care provider. Compression: Single-layer Tubigrip applied today in office. Continue use of single-layer Tubigrip daily. May remove while sleeping. Off-loading: Patient instructed to keep feet elevated at or above waist level as much as possible. Avoid prolonged standing or dangling of legs. Diet: Patient encouraged to increase protein and vitamin C intake while taking caution to avoid high carbohydrate and/or sugar intake. Labs/cultures/imaging: Culture results reviewed with patient. Cultures positive for rare Staphylococcus epidermidis, and rare Corynebacterium species, negative for anaerobic bacteria. Patient is currently on doxycycline and Ke flex prescribed by Dr. Culver. Complete antibiotics as prescribed. Routine baseline labwork reviewed from 07/24/2019: WBC 14.9, absolute neutrophils 12.4, glucose 210, A1c 6.3%, albumin 3.4 (see full report for furhter details). Follow-up: Return to clinic in 1 week for re-evaluation. Return sooner or report to the emergency room should symptoms worsen, or new symptoms arise. Note: [employer] speech recognition playground worker software was used to create portions of this document. Sound-alike and misspelled words, as well as other playground worker errors may be contained in the documentation. Code Visit 111xxx-113xx: [id number] Radhika subq tissue 20 sq cm/<
[2019-08-28 13:42] VITALS: BP 177/71; PULSE 69; RESP 18; TEMP 36.7; BMI 28.9
--- NOTE | 2019-08-28 14:36 | PCM.WC.PN ---
(1) Traumatic ulcer of right lower extremity with fat layer exposed Status: Resolved Current Visit: Yes Code(s): L97.912 - Non-pressure chronic ulcer of unspecified part of right lower leg with fat layer exposed (2) Bilateral lower extremity edema Status: Chronic Current Visit: Yes Code(s): R60.0 - Localized edema Type of Wound Date of Service: 08/28/19 Chief Complaint: right knee wounds History of Wound: Patient is a pleasant 74-year-old female who presents to the wound healing center 08/10/2019, for an initial evaluation of right knee wounds s/p traumatic fall. Patient reports an episode of orthostatic hypotension/dizziness on 08/01/2019 which resulted in a fall on cement, landing on her right knee. She was evaluated by her primary care provider, Dr. Culver, a few days later and was started on doxycycline due to concern for infection of right knee wounds. No culture was collected at that time, and no knee x-rays were ordered. She did have bilateral lower extremity venous Doppler studies ordered to evaluate for DVT, which were negative. Patient was instructed to use bacitracin ointment to right knee wounds and cover with Telfa daily. She tried wrapping her right knee with an NICK bandage, but was unable to tolerate the compression on her knee due to discomfort. Since her fall, patient has had swelling of her right knee and right lower extremity, as well as mild swelling in her left lower extremity. The patient reports she never has problems with swelling otherwise. The patient denies any fever, chills, nausea, vomiting, or diarrhea. Denies any increasing pain, redness, or purulent/foul-smelling drainage from affected area. Patient significant past medical history includes orthostatic hypotension, syncope, hypertension, hyperlipidemia, hypothyroidism, chronic low back pain, and asthma. She has not had any recent lab work collected, however she is a newer patient of Dr. Culver and anticipates upcoming lab work to be ordered by him. Progress of Wound: Right knee ulcerations are healed. Patient states she is doing well, without fever or chills. She denies any increasing pain, swelling, redness, or foul-smelling/purulent drainage. - Physical Exam Vital Signs Temp Pulse Resp BP 98.0 F 69 18 177/71 H 08/28/19 13:42 08/28/19 13:42 08/28/19 13:42 08/28/19 13:42 General: Alert, Cooperative, No apparent distress HEENT: Atraumatic, EOMI, Normocephalic Oral: Moist Mucosa Neck: Supple, Trachea Midline Lungs: Normal air movement Cardiovascular: Regular rate Extremities: No clubbing, No cyanosis, Capillary Refill Less than 3 Seconds, No Calf Tenderness, Edema - 1+ pitting edema of bilateral lower extremities, Peripheral Pulses Normal Skin: No rashes, No breakdown, Ulcer/ Wound - Traumatic ulcers of right knee x3 are healed. Wound Measurements and Assessment WC - Nurse 1 - General Ulcer Measurement Start: 08/17/19 09:52 Freq: Status: Active Protocol: Activity Type Activity Date Activity User E-Sign Co-Sign Detail Recorded Client Recorded Date Recorded By Document 08/28/19 13:42 BS [id number] 08/28/19 13:48 BS 08/28/19 13:42 Wound Center Nurse 1 [Ulcer Assessment] #1 right knee cluster -Combined with other wound No -Current Size (cm) - Length 0.1 -Current Size (cm) - Width 0.1 -Current Size (cm) - Depth 0.1 -Total Square Cm 0.01 -Date of Last Picture (Recall this 08/28/19 field) -Photo Taken Yes -Texture ([place]-wound Skin Appearance) No Abnormality, Assessed -Moisture ([place]-wound Skin Appearance No Abnormality, ) Assessed,Dry/ Scaly -Temperature ([place]-wound Skin No Abnormality Appearance) (Pt Warm) -Tenderness on Palpation ([place]-wound No Skin Appearance) -Ulcer Cleansing Rinsed/ Irrigated with Saline -Foul Odor after Cleansing No -Anesthetic Used 4% Lidocaine Solution WC - Nurse 2 - General Ulcer CM Notes Start: 08/17/19 09:52 Freq: Status: Active Protocol: Activity Type Activity Date Activity User E-Sign Co-Sign Detail Recorded Client Recorded Date Recorded By Document 08/28/19 14:05 DV [id number] 08/28/19 14:06 DV 08/28/19 14:05 Wound Center Nurse 2 [Procedure/Treatment] -Time 14:06 -Correct Patient Yes -Correct Side, Site, Position Yes -Correct Procedure No -Procedure Performed No -Post Debridement Size (cm) - Length 0 -Post Debridement Size (cm) - Width 0 -Post Debridement Size (cm) - Depth 0 -Total Square Cm 0 -Wound/Ulcer Outcome Healed- Epithelialized [See Physician Procedure note for Specifics] Pain Scale: 0-10 Numeric [Pain] -Is Patient Pain Free? Yes Musculoskeletal: No Tenderness to Palpation of Joints or Extremities Psych/Mental Status: Normal Affect, Appropriate Debridement Note Post-Debridement Measurements/Treatment WC - Nurse 2 - General Ulcer CM Notes Start: 08/17/19 09:52 Freq: Status: Active Protocol: Activity Type Activity Date Activity User E-Sign Co-Sign Detail Recorded Client Recorded Date Recorded By Document 08/17/19 10:57 DV [id number] 08/17/19 10:59 DV Document 08/28/19 14:05 DV [id number] 08/28/19 14:06 DV 08/17/19 08/28/19 10:57 14:05 Wound Center Nurse 2 #1 right knee cluster -Time 10:57 14:06 -Correct Patient Yes Yes -Correct Side, Site, Position Yes Yes -Correct Procedure Yes No -Procedure Performed Yes No -Type of Procedure Debridement -Clinical Debridement Subcutaneous -Post Debridement Size (cm) - Length 6.5 0 -Post Debridement Size (cm) - Width 7.0 0 -Post Debridement Size (cm) - Depth 0.1 0 -Total Square Cm 45.50 0 -Wound/Ulcer Outcome Not Healed Healed- Epithelialized -Ulcer Cleansing Rinsed/ Irrigated with Saline -Foul Odor after Cleansing No -Bioengineered Tissue No -Bleeding Controlled with Pressure -Offloading No -Treatment Response Procedure Tolerated Well Pain Scale: 0-10 Numeric Is Patient Pain Free? Yes Yes Assessment/Plan Active Problems (Last Updated 07/09/19 @ 10:09 by Dusty Arana DO) Bilateral lower extremity edema (Chronic) Assessment: Traumatic ulcer of RLE with fat layer exposed, acute--healed. Bilateral lower extremity edema, chronic Plan: Wounds to right knee are healed. Patient is discharged from the [facility]. She is encouraged to continue using daily compression stockings. If swelling in bilateral lower extremities persists, she is instructed to follow-up with her primary care provider. Note: [employer] speech recognition drier take off tender software was used to create portions of this document. Sound-alike and misspelled words, as well as other drier take off tender errors may be contained in the documentation. Code Visit Office Visits / Consults: [id number] OV L3 Est
== END 2019-09-08 23:59 ==
LOC: WC 13:30
PROVIDERS: PCP Family Medicine Geriatric Medicine; Visit Provider Nurse Practitioner Family
DX: L97.812 Non-pressure chronic ulcer of other part of right lower leg with fat layer exposed (principal); R60.0 Localized edema; Z91.81 History of falling; I10 Essential (primary) hypertension; E78.5 Hyperlipidemia, unspecified; J45.909 Unspecified asthma, uncomplicated
CPT/HCPCS: 11042; 11045; 99212; G0463

== ENCOUNTER 2019-09-05 05:34 | Day surgery (SDC) | payer MEDICARE, SELFPAY ==
[2019-08-17 09:52] VITALS: BMI 28.9
[2019-09-05] VITALS (11 sets, daily range): BP systolic 160–215; BP diastolic 70–86; PULSE 63–75; RESP 18–20; TEMP 36.5–37.3; O2SAT 92–97; BMI 29.7
[2019-09-05] MEDS: Lactated Ringers 1,000 ML 100 ML IV (06:44)
[2019-09-05] MEDS: Cefazolin 2 GM in 0.9% Normal Saline 100 ML IV (08:08)
--- NOTE | 2019-09-05 08:32 | SUR.PHASEI ---
ARRIVES TO PACU AFTER SURGERY CANCELLED DUE TO BP ELEVATED IN 200/100'S, RECEIVED FENTANYL 50 MCG IN O.R. PATIENT DENIES HEADACHE, BLURRED VISION, FEELS RELAXED, STATES HAS HAD NO SX AT HOME RECENTLY. DR MORALES ORDERED LABETALOL 10 IV X 1 TO BE GIVEN IN PACU.
== END 2019-09-05 09:44 | disposition home or self-care (01) ==
LOC: SDC 05:35 → AC 05:36
PROVIDERS: PCP Family Medicine Geriatric Medicine; Referring Provider Anesthesiology Pain Medicine; Visit Provider Anesthesiology Pain Medicine
PROC: (CPT 63685; principal; 2019-09-05 07:15)
DX: Z53.09 Procedure and treatment not carried out because of other contraindication (principal); I10 Essential (primary) hypertension; G89.4 Chronic pain syndrome; M46.1 Sacroiliitis, not elsewhere classified; M54.16 Radiculopathy, lumbar region; M54.17 Radiculopathy, lumbosacral region; M96.1 Postlaminectomy syndrome, not elsewhere classified; K21.9 Gastro-esophageal reflux disease without esophagitis; Z91.81 History of falling
CPT/HCPCS: J7120

== ENCOUNTER → 2019-09-19 16:48 | Outpatient (CLI) | payer MEDICARE, SELFPAY ==
[2019-09-05 06:15] VITALS: BMI 29.7
[2019-09-19 17:25] LABS: Amphetamine Urine VISTA NEGATIVE (<1000 ng/mL); Barbiturate Urine VISTA NEGATIVE (< 200 ng/mL); Benzodiazepine Urine VISTA NEGATIVE (< 200 ng/mL); Cocaine Urine VISTA NEGATIVE (< 300 ng/mL); Ecstacy Urine VISTA NEGATIVE (< 500 ng/mL); Methadone Urine VISTA NEGATIVE (< 300 ng/mL); PCP Urine VISTA NEGATIVE (< 25 ng/mL); THC Urine VISTA NEGATIVE (< 50 ng/mL); Vista UDS pH Range 6
== END ==
PROVIDERS: PCP Family Medicine Geriatric Medicine; Referring Provider Anesthesiology Pain Medicine; Visit Provider Anesthesiology Pain Medicine
DX: F11.20 Opioid dependence, uncomplicated (principal)
CPT/HCPCS: 80307

== ENCOUNTER → 2019-09-21 08:54 | Outpatient (CLI) | payer MEDICARE, SELFPAY ==
[2019-09-05 06:15] VITALS: BMI 29.7
[2019-09-21 10:52] LABS: AST(SGOT) 14 U/L (15-37); Alanine Aminotransfer ALT/SGPT 29 U/L (13-56); Albumin, Serum 3.6 g/dL (3.2-5.0); Alkaline Phosphatase 70 U/L (45-117); Anion Gap 8 (5-15); BUN 13 mg/dL (7-18); BUN/Creat Ratio 22.2 RATIO (10-20); Calcium,Total 8.9 mg/dL (8.5-10.1); Chloride 106 mmol/L (98-107); Cholesterol 262 mg/dL (200); Creatinine, Serum 0.59 mg/dL (0.55-1.02); EST Glomerular Filtration Rate 106 mL/min (>60); Est Glom Filt Rate - Afr Amer 128 mL/min (>60); Globulin 3.5 g/dL (2.2-4.2); Glucose 108 mg/dL (74-106); High Density Lipoprotein 46 mg/dL; Potassium 3.4 mmol/L (3.5-5.1); Protein, Total 7.1 g/dL (6.4-8.2); Sodium Level 140 mmol/L (136-145); Thyroid Stim Hormone (TSH) 3.67 uIU/mL (0.358-3.74); Triglycerides 172 mg/dL; Very Low Density Lipoprotein 34 mg/dL (5-40)
== END ==
PROVIDERS: PCP Family Medicine; Visit Provider Family Medicine
DX: E03.9 Hypothyroidism, unspecified (principal); I10 Essential (primary) hypertension
CPT/HCPCS: 36415; 80053; 80061; 84443

== ENCOUNTER → 2019-09-24 14:55 | Outpatient (CLI) | payer MEDICARE, SELFPAY ==
[2019-09-05 06:15] VITALS: BMI 29.7
--- NOTE | 2019-09-24 14:58 | RAD_ITS ---
STUDY: X-RAY - ABDOMEN/PELVIS REASON FOR EXAM: Female, 74 years old. ABD PAIN TECHNIQUE: AP supine and upright views of the abdomen and pelvis. COMPARISON: None. FINDINGS: Normal visualized lung bases. There is a moderate amount of colonic fecal material. No small bowel dilatation to suggest obstruction. There is no demonstrated free abdominal air. The visualized liver, spleen and kidneys are grossly normal in size and morphology. Normal soft tissue structures. There are diffuse degenerative changes of the visualized lumbar spine. RAD/Abd Inc Decub and/or Erect IMPRESSION: Moderate fecal debris otherwise nonspecific gas pattern. Electronically Signed: Yoselin Paul MD at 0:45 EDT , Service support ,
== END ==
PROVIDERS: PCP Family Medicine; Referring Provider Family Medicine Geriatric Medicine; Visit Provider Family Medicine Geriatric Medicine
DX: R10.9 Unspecified abdominal pain (principal)
CPT/HCPCS: 74019

== ENCOUNTER → 2019-10-23 13:50 | Outpatient (CLI) | payer MEDICARE, SELFPAY ==
[2019-09-05 06:15] VITALS: BMI 29.7
[2019-10-23 16:38] LABS: Absolute Lymphocyte Count 1.66 X10^3/uL (0.83-4.51); Absolute Neutrophil Count 8.6 X10^3/uL (2.0-7.7); Basophil# 0.06 X10^3/uL; Basophil% 0.5 % (0-1); Eosinophil# 0.17 X10^3/uL; Eosinophils% 1.4 % (0-5); Hematocrit 41.6 % (37-47); Hemoglobin 13.5 g/dL (12.0-15.0); Lymphocyte # 1.66 X10^3/ul (4.0); Lymphocyte % 13.9 % (19-41); Mean Corp Hgb Conc 32.5 g/dL (32-36); Mean Corpuscular Hgb 34.3 pg (27.0-32.0); Mean Corpuscular Volume 105.6 fL (81-99); Mean Platelet Vol. 11.6 fl (6.2-12.0); Monocyte# 1.38 X10^3/uL; Monocyte% 11.6 % (0-10); NRBC Flagged by Analyzer 0 % (0-5); Neutrophil # 8.57 X10^3/uL (2.7-7.7); Neutrophil % 71.8 % (47-70); Platelet Count 263 K/mm3 (150-450); RBC Distribution Width CV 12.8 % (11.6-14.6); RBC Distribution Width SD 50.2 fl (35.1-43.9); Red Blood Count 3.94 M/mm3 (4.2-5.4); White Blood Count 11.9 K/mm3 (4.4-11.0)
[2019-10-23 17:04] LABS: AST(SGOT) 24 U/L (15-37); Alanine Aminotransfer ALT/SGPT 40 U/L (13-56); Albumin, Serum 3.5 g/dL (3.2-5.0); Alkaline Phosphatase 77 U/L (45-117); Anion Gap 7 (5-15); BUN 13 mg/dL (7-18); BUN/Creat Ratio 17.2 RATIO (10-20); Calcium,Total 8.8 mg/dL (8.5-10.1); Chloride 98 mmol/L (98-107); Creatinine, Serum 0.76 mg/dL (0.55-1.02); EST Glomerular Filtration Rate 79 mL/min (>60); Est Glom Filt Rate - Afr Amer 96 mL/min (>60); Globulin 3.6 g/dL (2.2-4.2); Glucose 95 mg/dL (74-106); Potassium 3.9 mmol/L (3.5-5.1); Protein, Total 7.1 g/dL (6.4-8.2); Sodium Level 132 mmol/L (136-145); Thyroid Stim Hormone (TSH) 3.39 uIU/mL (0.358-3.74)
== END ==
PROVIDERS: PCP Family Medicine; Visit Provider Family Medicine Geriatric Medicine
DX: I10 Essential (primary) hypertension (principal)
CPT/HCPCS: 36415; 80053; 84443; 85025

== ENCOUNTER → 2019-11-12 14:49 | Outpatient (CLI) | payer MEDICARE, SELFPAY ==
[2019-09-05 06:15] VITALS: BMI 29.7
[2019-11-12 15:37] LABS: Absolute Lymphocyte Count 1.85 X10^3/uL (0.83-4.51); Absolute Neutrophil Count 8.4 X10^3/uL (2.0-7.7); Basophil# 0.06 X10^3/uL; Basophil% 0.5 % (0-1); Eosinophils% 1.7 % (0-5); Hematocrit 39.4 % (37-47); Lymphocyte # 1.85 X10^3/ul (4.0); Lymphocyte % 15.8 % (19-41); Mean Corpuscular Hgb 34.4 pg (27.0-32.0); Mean Corpuscular Volume 104.2 fL (81-99); Mean Platelet Vol. 10.7 fl (6.2-12.0); Monocyte# 1.15 X10^3/uL; Monocyte% 9.8 % (0-10); NRBC Flagged by Analyzer 0 % (0-5); Neutrophil # 8.36 X10^3/uL (2.7-7.7); Neutrophil % 71.3 % (47-70); Platelet Count 298 K/mm3 (150-450); RBC Distribution Width CV 12.6 % (11.6-14.6); RBC Distribution Width SD 48.5 fl (35.1-43.9); Red Blood Count 3.78 M/mm3 (4.2-5.4); White Blood Count 11.7 K/mm3 (4.4-11.0)
[2019-11-12 16:15] LABS: Anion Gap 5 (5-15); BUN 9 mg/dL (7-18); BUN/Creat Ratio 11.9 RATIO (10-20); Calcium,Total 8.7 mg/dL (8.5-10.1); Chloride 104 mmol/L (98-107); Creatinine, Serum 0.76 mg/dL (0.55-1.02); EST Glomerular Filtration Rate 79 mL/min (>60); Est Glom Filt Rate - Afr Amer 95 mL/min (>60); Glucose 105 mg/dL (74-106); Potassium 3.5 mmol/L (3.5-5.1); Sodium Level 139 mmol/L (136-145); Thyroid Stim Hormone (TSH) 4.86 uIU/mL (0.358-3.74)
== END ==
PROVIDERS: PCP Family Medicine Geriatric Medicine; Referring Provider Family Medicine Geriatric Medicine; Visit Provider Family Medicine Geriatric Medicine
DX: E03.9 Hypothyroidism, unspecified (principal); M79.609 Pain in unspecified limb; R60.9 Edema, unspecified
CPT/HCPCS: 36415; 80048; 84443; 85025

== ENCOUNTER → 2019-11-26 14:37 | Outpatient (CLI) | payer MEDICARE, SELFPAY ==
[2019-09-05 06:15] VITALS: BMI 29.7
[2019-11-26 16:46] LABS: Anion Gap 6 (5-15); BUN 20 mg/dL (7-18); BUN/Creat Ratio 20.2 RATIO (10-20); Chloride 103 mmol/L (98-107); Creatinine, Serum 0.99 mg/dL (0.55-1.02); EST Glomerular Filtration Rate 58 mL/min (>60); Est Glom Filt Rate - Afr Amer 70 mL/min (>60); Glucose 114 mg/dL (74-106); Potassium 4.1 mmol/L (3.5-5.1); Sodium Level 138 mmol/L (136-145)
== END ==
PROVIDERS: PCP Family Medicine Geriatric Medicine; Visit Provider Family Medicine Geriatric Medicine
DX: E87.6 Hypokalemia (principal)
CPT/HCPCS: 36415; 80048

== ENCOUNTER → 2019-12-07 12:09 | Outpatient (CLI) | payer MEDICARE, SELFPAY ==
[2019-09-05 06:15] VITALS: BMI 29.7
== END ==
PROVIDERS: PCP Family Medicine Geriatric Medicine; Visit Provider Internal Medicine Pulmonary Disease
DX: J45.909 Unspecified asthma, uncomplicated (principal); R05 Cough; R06.02 Shortness of breath
CPT/HCPCS: 87635; 87804; 94799; G2023; U0003

== ENCOUNTER → 2019-12-20 14:38 | Outpatient (CLI) | payer MEDICARE, SELFPAY ==
[2019-09-05 06:15] VITALS: BMI 29.7
[2019-12-20 15:43] LABS: Absolute Lymphocyte Count 2.32 X10^3/uL (0.83-4.51); Absolute Neutrophil Count 14.7 X10^3/uL (2.0-7.7); Basophil# 0.08 X10^3/uL; Basophil% 0.4 % (0-1); Eosinophil# 0.18 X10^3/uL; Eosinophils% 0.9 % (0-5); Hematocrit 41.4 % (37-47); Hemoglobin 13.3 g/dL (12.0-15.0); Lymphocyte # 2.32 X10^3/ul (4.0); Mean Corp Hgb Conc 32.1 g/dL (32-36); Mean Corpuscular Hgb 34.5 pg (27.0-32.0); Mean Corpuscular Volume 107.3 fL (81-99); Mean Platelet Vol. 11.4 fl (6.2-12.0); Monocyte# 1.72 X10^3/uL; Monocyte% 8.9 % (0-10); NRBC Flagged by Analyzer 0 % (0-5); Neutrophil # 14.74 X10^3/uL (2.7-7.7); Neutrophil % 76.6 % (47-70); POSITIVE DIFFERENTIAL YES; Platelet Count 281 K/mm3 (150-450); RBC Distribution Width SD 51.4 fl (35.1-43.9); Red Blood Count 3.86 M/mm3 (4.2-5.4); White Blood Count 19.3 K/mm3 (4.4-11.0)
--- NOTE | 2019-12-20 15:44 | CT_ITS ---
STUDY: CT ABDOMEN AND PELVIS WITH CONTRAST REASON FOR EXAM: Female, 74 years old. Umbilical pain RADIATION DOSAGE (If Supplied By Facility): CTDIvol = ( 19.34 ) mGy, DLP = ( 927.10 ) mGycm TECHNIQUE: CT images were obtained from the dome of the diaphragm to the symphysis pubis without oral contrast. Oral and amp; IV Gastrografin and amp; 100mL Isovue-300 was administered. Sagittal and coronal images were reconstructed. Individualized dose optimization techniques were used for this CT. COMPARISON: None. FINDINGS: There is advanced coronary artery disease with stents in the RCA. There is increased mediastinal fat. Otherwise inferior mediastinal contents are normal. The liver is fatty infiltrated without biliary dilation. Portal and hepatic veins are patent. Gallbladder is normal. Kidneys, adrenals, pancreas and spleen are normal. There is no intestinal obstruction. There is sigmoid diverticulosis without diverticulitis. Appendix is surgically removed. Uterus is surgically removed. Bladder is normal. BMI is severely elevated with intra-abdominal atherogenic lipomatosis. Osseous structures are intact with laminectomy decompression of L4-L5 and L5-S1 and age-related degenerative change with mild to moderate spondylotic thecal sac stenosis at L2-L3 and L3-L4. CT/Abdomen/Pelvis WITH Contrast IMPRESSION: 1. No acute abdominal findings. 2. Hepatic steatosis. Hepatology referral is advised. 3. Severe abdominal atherogenic lipomatosis. Bariatric referral is advised. 4. Severe coronary artery disease. Cardiology referral is advised. 5. Spondylotic thecal sac stenosis. Neurosurgical referral is advised. Electronically Signed: Marifer Min, at 18:47 EDT Tel , Service support ,
[2019-12-20 16:17] LABS: AST(SGOT) 20 U/L (15-37); Alanine Aminotransfer ALT/SGPT 37 U/L (13-56); Albumin, Serum 3.6 g/dL (3.2-5.0); Alkaline Phosphatase 76 U/L (45-117); Anion Gap 8 (5-15); BUN 22 mg/dL (7-18); BUN/Creat Ratio 25.3 RATIO (10-20); Calcium,Total 9.2 mg/dL (8.5-10.1); Chloride 102 mmol/L (98-107); Creatinine, Serum 0.87 mg/dL (0.55-1.02); EST Glomerular Filtration Rate 67 mL/min (>60); Est Glom Filt Rate - Afr Amer 81 mL/min (>60); Globulin 3.6 g/dL (2.2-4.2); Glucose 103 mg/dL (74-106); Protein, Total 7.2 g/dL (6.4-8.2); Sodium Level 138 mmol/L (136-145); Thyroid Stim Hormone (TSH) 0.39 uIU/mL (0.358-3.74)
[2019-12-20 16:26] LABS: Differential Indicated SCAN CRITERIA MET
[2019-12-20 16:57] LABS: Anisocytosis 1+; Macrocytosis 1+; Platelet Estimate ADEQUATE (ADEQ); Red Cell Morphology N CHROM NORMAL (NORM C&C)
[2019-12-21 11:48] LABS: Pathologist Review Reviewed
== END ==
PROVIDERS: PCP Family Medicine Geriatric Medicine; Referring Provider Family Medicine Geriatric Medicine; Visit Provider Family Medicine Geriatric Medicine
DX: E03.9 Hypothyroidism, unspecified (principal); R10.9 Unspecified abdominal pain
CPT/HCPCS: 36415; 74177; 80053; 84443; 85025; Q9967; A4216

== ENCOUNTER → 2020-01-21 13:58 | Outpatient (CLI) | payer MEDICARE, SELFPAY ==
[2019-09-05 06:15] VITALS: BMI 29.7
[2020-01-21 16:38] LABS: Absolute Lymphocyte Count 2.23 X10^3/uL (0.83-4.51); Absolute Neutrophil Count 11.3 X10^3/uL (2.0-7.7); Basophil# 0.11 X10^3/uL; Basophil% 0.7 % (0-1); Eosinophil# 0.13 X10^3/uL; Eosinophils% 0.9 % (0-5); Hematocrit 39.8 % (37-47); Hemoglobin 12.5 g/dL (12.0-15.0); Lymphocyte # 2.23 X10^3/ul (4.0); Lymphocyte % 14.6 % (19-41); Mean Corp Hgb Conc 31.4 g/dL (32-36); Mean Corpuscular Hgb 33.7 pg (27.0-32.0); Mean Corpuscular Volume 107.3 fL (81-99); Mean Platelet Vol. 11.9 fl (6.2-12.0); Monocyte# 1.32 X10^3/uL; Monocyte% 8.6 % (0-10); NRBC Flagged by Analyzer 0 % (0-5); Neutrophil # 11.26 X10^3/uL (2.7-7.7); Neutrophil % 73.6 % (47-70); Platelet Count 272 K/mm3 (150-450); RBC Distribution Width CV 13.3 % (11.6-14.6); RBC Distribution Width SD 52.2 fl (35.1-43.9); Red Blood Count 3.71 M/mm3 (4.2-5.4); White Blood Count 15.3 K/mm3 (4.4-11.0)
[2020-01-21 16:47] LABS: Vitamin D,25 Hydroxy 36.2 ng/mL
[2020-01-21 16:56] LABS: ALB/GLOB Ratio 0.9 RATIO (0.9-2.4); AST(SGOT) 16 U/L (15-37); Alanine Aminotransfer ALT/SGPT 35 U/L (13-56); Albumin, Serum 3.5 g/dL (3.2-5.0); Alkaline Phosphatase 96 U/L (45-117); Anion Gap 6 (5-15); BUN 17 mg/dL (7-18); Calcium,Total 8.6 mg/dL (8.5-10.1); Chloride 105 mmol/L (98-107); Creatinine, Serum 0.95 mg/dL (0.55-1.02); EST Glomerular Filtration Rate 61 mL/min (>60); Est Glom Filt Rate - Afr Amer 74 mL/min (>60); Globulin 3.8 g/dL (2.2-4.2); Glucose 156 mg/dL (74-106); Potassium 4.1 mmol/L (3.5-5.1); Protein, Total 7.3 g/dL (6.4-8.2); Sodium Level 140 mmol/L (136-145); Thyroid Stim Hormone (TSH) 0.35 uIU/mL (0.358-3.74)
== END ==
PROVIDERS: PCP Family Medicine Geriatric Medicine; Visit Provider Family Medicine Geriatric Medicine
DX: E55.9 Vitamin D deficiency, unspecified (principal); R53.83 Other fatigue
CPT/HCPCS: 36415; 80053; 82306; 84443; 85025

== ENCOUNTER 2020-02-22 11:34 | Day surgery (SDC) | payer MEDICARE, SELFPAY ==
[2019-09-05 06:15] VITALS: BMI 29.7
[2020-01-30 11:41] VITALS: BMI 29.3
[2020-02-22] VITALS (9 sets, daily range): BP systolic 137–198; BP diastolic 58–87; PULSE 66–77; RESP 15–18; TEMP 36.2–36.4; O2SAT 92–98; BMI 31.0
--- NOTE | 2020-02-22 07:28 | RAD_ITS ---
PROCEDURE: Spinal cord stimulator insertion. DATE OF EXAMINATION: 02/22/2020. INDICATION: Female, 74 years old. Back pain. FLUOROSCOPY TIME (if supplied): (110 seconds) minutes/seconds Intraoperative imaging provided for spinal cord stimulator insertion. RAD/Lumbar Spine 2 or 3 Views IMPRESSION: Intraoperative imaging provided for spinal cord stimulator insertion. Electronically Signed: Gonzalo Jordan, at 15:27 EDT , Service support ,
[2020-02-22] MEDS: Vancomycin IV 1,000 MG/200 ML BAG 200 MG IV (12:00)
[2020-02-22] MEDS: Lactated Ringers 1,000 ML 100 ML IV (12:20)
[2020-02-22] MEDS: Bupiv/Epi 0.25% 30 ML Vial (14:30)
== END 2020-02-22 16:53 | disposition home or self-care (01) ==
LOC: SDC 11:34 → AC 11:36
PROVIDERS: Anesthesiology; PCP Family Medicine Geriatric Medicine; Referring Provider Anesthesiology Pain Medicine; Visit Provider Anesthesiology Pain Medicine
PROC: (CPT 63685; principal; 2020-02-22 13:05)
DX: M54.16 Radiculopathy, lumbar region (principal); M96.1 Postlaminectomy syndrome, not elsewhere classified; M51.37 Other intervertebral disc degeneration, lumbosacral region; G89.4 Chronic pain syndrome; M51.36 Other intervertebral disc degeneration, lumbar region; K21.9 Gastro-esophageal reflux disease without esophagitis; I10 Essential (primary) hypertension; J45.909 Unspecified asthma, uncomplicated
CPT/HCPCS: 63685; 72100; 76000; 87635; 94799; J7120; J2405; U0003

== ENCOUNTER → 2020-02-28 16:46 | Outpatient (CLI) | payer MEDICARE, SELFPAY ==
[2020-02-22 12:10] VITALS: BMI 31.0
[2020-02-28 17:26] LABS: Absolute Lymphocyte Count 1.77 X10^3/uL (0.83-4.51); Absolute Neutrophil Count 10.2 X10^3/uL (2.0-7.7); Basophil# 0.09 X10^3/uL; Basophil% 0.7 % (0-1); Eosinophil# 0.41 X10^3/uL; Hemoglobin 12.2 g/dL (12.0-15.0); Lymphocyte # 1.77 X10^3/ul (4.0); Lymphocyte % 12.9 % (19-41); Mean Corpuscular Hgb 35.1 pg (27.0-32.0); Mean Corpuscular Volume 106.3 fL (81-99); Mean Platelet Vol. 11.5 fl (6.2-12.0); Monocyte# 1.15 X10^3/uL; Monocyte% 8.4 % (0-10); NRBC Flagged by Analyzer 0 % (0-5); Neutrophil # 10.21 X10^3/uL (2.7-7.7); Neutrophil % 74.2 % (47-70); Platelet Count 307 K/mm3 (150-450); RBC Distribution Width CV 13.5 % (11.6-14.6); RBC Distribution Width SD 53.1 fl (35.1-43.9); Red Blood Count 3.48 M/mm3 (4.2-5.4); White Blood Count 13.7 K/mm3 (4.4-11.0)
[2020-02-28 17:56] LABS: ALB/GLOB Ratio 0.9 RATIO (0.9-2.4); AST(SGOT) 23 U/L (15-37); Alanine Aminotransfer ALT/SGPT 37 U/L (13-56); Albumin, Serum 3.4 g/dL (3.2-5.0); Alkaline Phosphatase 88 U/L (45-117); Anion Gap 6 (5-15); BUN 11 mg/dL (7-18); BUN/Creat Ratio 12.7 RATIO (10-20); Calcium,Total 8.9 mg/dL (8.5-10.1); Chloride 100 mmol/L (98-107); Creatinine, Serum 0.87 mg/dL (0.55-1.02); EST Glomerular Filtration Rate 67 mL/min (>60); Est Glom Filt Rate - Afr Amer 82 mL/min (>60); Globulin 3.8 g/dL (2.2-4.2); Glucose 132 mg/dL (74-106); Potassium 3.9 mmol/L (3.5-5.1); Protein, Total 7.2 g/dL (6.4-8.2); Sodium Level 136 mmol/L (136-145)
== END ==
PROVIDERS: PCP Family Medicine Geriatric Medicine; Visit Provider Family Medicine Geriatric Medicine
DX: R60.9 Edema, unspecified (principal)
CPT/HCPCS: 36415; 80053; 85025

== ENCOUNTER → 2020-04-10 09:36 | Outpatient (CLI) | payer MEDICARE, SELFPAY ==
[2020-04-10 08:40] VITALS: BMI 31.4
[2020-04-10 09:53] LABS: Absolute Lymphocyte Count 1.87 X10^3/uL (0.83-4.51); Absolute Neutrophil Count 9.1 X10^3/uL (2.0-7.7); Basophil# 0.08 X10^3/uL; Basophil% 0.7 % (0-1); Eosinophil# 0.08 X10^3/uL; Eosinophils% 0.7 % (0-5); Hemoglobin 12.8 g/dL (12.0-15.0); Lymphocyte # 1.87 X10^3/ul (4.0); Lymphocyte % 15.2 % (19-41); Mean Corp Hgb Conc 32.8 g/dL (32-36); Mean Corpuscular Hgb 35.2 pg (27.0-32.0); Mean Corpuscular Volume 107.1 fL (81-99); Mean Platelet Vol. 10.8 fl (6.2-12.0); Monocyte# 0.94 X10^3/uL; Monocyte% 7.7 % (0-10); NRBC Flagged by Analyzer 0.2 % (0-5); Neutrophil # 9.11 X10^3/uL (2.7-7.7); Neutrophil % 74.2 % (47-70); Platelet Count 260 K/mm3 (150-450); RBC Distribution Width CV 13.3 % (11.6-14.6); RBC Distribution Width SD 52.9 fl (35.1-43.9); Red Blood Count 3.64 M/mm3 (4.2-5.4); White Blood Count 12.3 K/mm3 (4.4-11.0)
[2020-04-10 10:03] LABS: Prothrombin Time (Protime)PT. 12.3 SECONDS (11.7-14.9)
== END ==
PROVIDERS: PCP Family Medicine Geriatric Medicine; Referring Provider Surgery; Visit Provider Surgery
DX: R23.8 Other skin changes (principal); Z86.2 Personal history of diseases of the blood and blood-forming organs and certain disorders involving the immune mechanism
CPT/HCPCS: 36415; 85025; 85610; 85730

== ENCOUNTER → 2020-04-16 12:43 | Outpatient (CLI) | payer MEDICARE, SELFPAY ==
[2020-01-30 11:41] VITALS: BMI 29.3
[2020-04-10 08:40] VITALS: BMI 31.4
--- NOTE | 2020-04-16 12:43 | BI_ITS ---
MAMMOGRAPHY - BILATERAL SCREENING REASON FOR EXAM: Female, 74 years old. Routine annual screening examination. PERTINENT HISTORY: NO FM HX , BILAT BIOPSIES YEAR?, LT BREAST LOOP RECORDER SPINAL CORD SIMULATOR 02/2020 TECHNIQUE: Digital bilateral breast will (3D mammographic acquisition) in the CC and MLO projections. 2-D mediolateral oblique (MLO) and craniocaudad (CC) views of both breasts were obtained. CAD: Full Field Digital Mammography with Computer Added Detection was performed. COMPARISON: 02/20/2019 04/06/2016. FINDINGS: Breast Composition: The breasts are almost entirely fatty. There are no dominant masses or suspicious calcifications. No other significant abnormalities are identified. BI/SCREEN MAMM (CAD) W/WILL BILAT IMPRESSION: Stable bilateral screening mammogram. Yearly follow-up mammogram recommended. (A) ASSESSMENT CATEGORY: BIRADS Category 2: Benign. A letter regarding these results will be sent to the patient by the facility within 30 days. Approximately 10% of breast cancers are not detected by mammography. A normal mammogram should not delay biopsy of a clinically suspicious abnormality. [id number] Electronically Signed: Keli Felix, at 14:10 EDT Tel , Service support ,
== END ==
PROVIDERS: PCP Family Medicine Geriatric Medicine; Referring Provider Internal Medicine Hematology & Oncology; Visit Provider Internal Medicine Hematology & Oncology
DX: Z12.31 Encounter for screening mammogram for malignant neoplasm of breast (principal)
CPT/HCPCS: 77063; 77067

== ENCOUNTER → 2020-04-28 13:38 | Outpatient (CLI) | payer MEDICARE, SELFPAY ==
[2020-04-10 08:40] VITALS: BMI 31.4
[2020-04-28 16:31] LABS: Absolute Lymphocyte Count 1.92 X10^3/uL (0.83-4.51); Absolute Neutrophil Count 13.2 X10^3/uL (2.0-7.7); Basophil# 0.06 X10^3/uL; Basophil% 0.4 % (0-1); Eosinophil# 0.11 X10^3/uL; Eosinophils% 0.6 % (0-5); Hematocrit 40.8 % (37-47); Hemoglobin 12.9 g/dL (12.0-15.0); Lymphocyte # 1.92 X10^3/ul (4.0); Lymphocyte % 11.3 % (19-41); Mean Corp Hgb Conc 31.6 g/dL (32-36); Mean Corpuscular Hgb 34.2 pg (27.0-32.0); Mean Corpuscular Volume 108.2 fL (81-99); Mean Platelet Vol. 11.5 fl (6.2-12.0); Monocyte# 1.57 X10^3/uL; Monocyte% 9.2 % (0-10); NRBC Flagged by Analyzer 0 % (0-5); Neutrophil # 13.18 X10^3/uL (2.7-7.7); Neutrophil % 77.4 % (47-70); POSITIVE DIFFERENTIAL YES; Platelet Count 300 K/mm3 (150-450); RBC Distribution Width SD 55.6 fl (35.1-43.9); Red Blood Count 3.77 M/mm3 (4.2-5.4)
[2020-04-28 16:57] LABS: ALB/GLOB Ratio 0.8 RATIO (0.9-2.4); AST(SGOT) 20 U/L (15-37); Alanine Aminotransfer ALT/SGPT 45 U/L (13-56); Albumin, Serum 3.4 g/dL (3.2-5.0); Alkaline Phosphatase 131 U/L (45-117); Anion Gap 8 (5-15); BUN 27 mg/dL (7-18); BUN/Creat Ratio 19.7 RATIO (10-20); Calcium,Total 8.9 mg/dL (8.5-10.1); Chloride 99 mmol/L (98-107); Creatinine, Serum 1.37 mg/dL (0.55-1.02); EST Glomerular Filtration Rate 40 mL/min (>60); Est Glom Filt Rate - Afr Amer 48 mL/min (>60); Globulin 4.1 g/dL (2.2-4.2); Glucose 168 mg/dL (74-106); Protein, Total 7.5 g/dL (6.4-8.2); Sodium Level 137 mmol/L (136-145); Thyroid Stim Hormone (TSH) 0.98 uIU/mL (0.358-3.74)
[2020-04-28 17:17] LABS: Differential Indicated SCAN CRITERIA MET
[2020-04-28 17:21] LABS: Anisocytosis 1+; Macrocytosis 1+; Platelet Estimate ADEQUATE (ADEQ); Red Cell Morphology N CHROM NORMAL (NORM C&C)
[2020-04-29 13:05] LABS: Pathologist Review Reviewed
== END ==
PROVIDERS: PCP Family Medicine Geriatric Medicine; Visit Provider Family Medicine Geriatric Medicine
DX: I10 Essential (primary) hypertension (principal); E55.9 Vitamin D deficiency, unspecified
CPT/HCPCS: 36415; 80053; 82306; 84443; 85025

== ENCOUNTER 2020-05-03 11:27 | Emergency (ER) | payer MEDICARE, SELFPAY ==
[2020-04-10 08:40] VITALS: BMI 31.4
[2020-05-03 11:28] VITALS: BP 196/92; PULSE 79; RESP 15; TEMP 36.4; O2SAT 97
--- NOTE | 2020-05-03 11:47 | ED.DCSUM_ITS ---
History of Present Illness Chief Complaint: Back Informant: Patient Onset: Days Context: Gradual Onset Timing: Continuous Current Severity: Moderate Maximum Severity: Moderate Narrative: The patient is a 74-year-old female with medical history significant for chronic back pain the presents to the emergency department with persistent pain. The patient does follow with Dr. Mccarthy. She had injections last week. She states usually, it will control her pain for 3 months. She states she has had no relief since the injections. She states if she stands for a long period of time, she gets tightness across her low back. She states from time to time, it will radiate to both legs, but that is not new for her. She does ambulate a cane. She does have history of prior back surgery and does have nerve stimulator in place. She has taken her home [place] with little improvement. She denies any trouble urinating or moving her bowels. Prior similar symptoms: Yes Recent Illness/Hospitalization: No Past Medical History - Allergies and Home Meds Allergies/Adverse Reactions: Allergies clindamycin Allergy (Mild, Verified 05/03/20 11:31) rash acetaminophen [From Tylenol-Codeine #3] Adverse Reaction (Severe, Verified 05/03/20 11:31) Nausea codeine phosphate [From Tylenol-Codeine #3] Adverse Reaction (Severe, Verified 05/03/20 11:31) Nausea Primary Care Physician: Jaime Culver Chi, MD [Primary Care Provider] - Prior records reviewed: Yes Past Medical History: - - Hypertension, hyperlipidemia, chronic back pain Surgical History: appendectomy, hysterectomy, tonsillectomy Smoking Status: Never smoker - Family History Maternal Family History: Family History (Last Updated 04/10/20 @ 09:08 by Marga So) Mother Heart valve disorder Hypertension Heart disease Father Pneumococcal pneumonia CVA (cerebral vascular accident) Heart disease Myocardial infarction Family History: Reports: Heart Disease Paternal Family History: Family History (Last Updated 04/10/20 @ 09:08 by Marga So) Mother Heart valve disorder Hypertension Heart disease Father Pneumococcal pneumonia CVA (cerebral vascular accident) Heart disease Myocardial infarction Family History: Reports: Heart Disease Review of Systems General: Denies: Chills, Fever, Sweats Eyes: Denies: Visual changes - bilaterally, Diplopia ENT: Denies: Rhinorrhea, Sore throat Cardiovascular: Denies: Chest pain, Palpitations Respiratory: Denies: Dyspnea, Cough, Dyspnea on exertion Gastrointestinal: Denies: Abdominal pain, Nausea, Vomiting, Diarrhea, Melena, Hematochezia Genitourinary: Denies: Dysuria, Hematuria, Frequency Musculoskeletal: Reports: Back pain. Denies: Extremity Pain Skin: Denies: Rash, Wounds Neurological: Denies: Headache, Weakness, Numbness Physical Exam Vital Signs/Narrative: Vital Signs Temp Pulse Resp BP Pulse Ox 05/03/20 11:28 97.5 F L 79 15 196/92 H 97 Inital Vital Signs reviewed: Yes General: Well nourished, Well developed, No Acute Distress Head: Normocephalic, Atraumatic Eyes: Perrl, EOMI ENT: Moist mucous membranes, No rhinorrhea Neck: Supple, Nontender Cardiovascular: Regular rate, Regular rhythm, No murmurs Respiratory: No distress, CTA bilaterally, Chest nontender Abdomen: Soft, Nontender, Nondistended, Normal bowel sounds Back: Normal Inspection. Negative for: CVA tenderness, Spinal tenderness Extremities: Nontender, No edema Skin: Normal color, No rash Neurological: Alert, Oriented x3, Cranial nerves II-XII grossly intact, Normal Strength, Normal Sensation Psychological: Normal affect, Normal Mood Diagnostic/Tx/Re-eval - Medical Decision Making The patient presents with exacerbation of low back pain. She has normal strength and reflexes of the lower extremity. She is had no trauma. Family was concerned for compression fracture. X-rays were obtained. It does show degenerative change, but unchanged from prior x-ray. Patient was treated with IM analgesics and was feeling improved. She is already established with pain management. I will add topical lidocaine patch to help with her pain. At this point, I do feel that she is safe for outpatient follow-up. She is comfortable with this plan of care. Impression 1. Exacerbation of chronic low back pain ED Disposition - Plan for ED Patient: Instructions: ED Back Pain Acute or Chronic Prescriptions: Lidocaine/Menthol [Lidall 4%-1% Patch] 1 ea TP DAILY #5 adh..patch Prescription Printed Referrals: Jaime Culver Chi, MD [Primary Care Provider] -
[2020-05-03] MEDS: morphine 10 MG/ML Syringe 6 MG SC (11:50)
--- NOTE | 2020-05-03 11:55 | RAD_ITS ---
STUDY: X-RAY - LUMBAR SPINE REASON FOR EXAM: Female, 74 years old. PT C/O BACK PAIN FOR MONTHS OR LONGER. PT HAD A INJECTION 3 WEEKS AGO BUT PT STATES IT DIDN''T HELP. PAIN STIMULATOR PUT IN SEVERAL YRS AGO FOR PAIN. TECHNIQUE: 3 view(s) of the lumbar spine were obtained. COMPARISON: 07/09/2019 FINDINGS: Normal lumbar lordosis. There is no substantial scoliosis. There is a normal alignment of the vertebrae. Degenerative changes of the vertebral bodies with spurring at the endplates. Narrowing of the L2-3 and L3-4 disc space heights with vacuum phenomenon. Laminectomy of L4 and L5. The soft tissue structures are unremarkable. Calcified aorta. A stimulator is noted with electrodes extending into the lower thoracic region. RAD/Lumbar Spine 2 or 3 Views IMPRESSION: Degenerative and postsurgical changes changes of the lumbar spine, similar to previous study. Electronically Signed: Eulalio Veloz DO at 12:59 EDT Tel [phone], Service support ,
== END 2020-05-03 13:15 | disposition home or self-care (01) ==
PROVIDERS: Emergency Provider Emergency Medicine; PCP Family Medicine Geriatric Medicine
DX: M54.5 Low back pain (principal); G89.29 Other chronic pain; E78.5 Hyperlipidemia, unspecified; I10 Essential (primary) hypertension; M51.36 Other intervertebral disc degeneration, lumbar region; Z82.3 Family history of stroke; Z82.49 Family history of ischemic heart disease and other diseases of the circulatory system; Z88.5 Allergy status to narcotic agent; Z88.6 Allergy status to analgesic agent; Z90.710 Acquired absence of both cervix and uterus
CPT/HCPCS: 72100; 96372; 99281

== ENCOUNTER 2020-05-04 10:36 | Emergency (ER) | payer MEDICARE, SELFPAY ==
[2020-05-04 10:37] VITALS: BP 179/104; PULSE 78; RESP 17; TEMP 36.4; O2SAT 100
--- NOTE | 2020-05-04 11:03 | CT_ITS ---
STUDY: CT LUMBAR SPINE WITHOUT CONTRAST REASON FOR EXAM: Female, 74 years old. BACK PAIN WITH PRIOR SURGERY AND STIMULATOR RADIATION DOSAGE (If Supplied By Facility): CTDIvol = ( 20.89 ) mGy, DLP = ( 638.35 ) mGycm TECHNIQUE: The patient was scanned in a multi detector CT scanner. High resolution transaxial imaging was performed. Images were obtained from to . Sagittal and coronal images were reconstructed. Individualized dose optimization techniques were used for this CT. COMPARISON: X-ray lumbar spine 05/03/2020, MRI of the lumbar spine 12/23/2015 FINDINGS: Normal lumbar lordosis. There is no substantial scoliosis. Vertebral body height is maintained. There has been prior lower lumbar L4-L5 laminectomy. L1-2: Disc height is maintained. There is a posterior disc osteophyte complex minimally deforming the ventral thecal sac but no evidence of significant central or foraminal encroachment. L2-3: Marked disc height loss with endplate sclerosis anterior and posterior marginal osteophytes and vacuum disc phenomena noted. Broad disc bulge noted. There is minimal flattening of the ventral aspect of the thecal sac. There is no evidence of significant central canal stenosis. There is mild encroachment upon the neural foramina bilaterally secondary to disc osteophyte complex. L3-4: Prominent disc height loss with anterior and posterior marginal osteophytes present as well as vacuum disc phenomena and. It appears on sagittal imaging that disc does descend ventral to the thecal sac at this level posterior to the posterior margin of the L4 vertebral body indicating a disc herniation. This appears central and slightly asymmetric to the right. Refer to axial images 48 through 50 series 3. Also refer to sagittal image #42 series 602. Disc osteophyte complex as well as mild bilateral facet arthropathy and ligamentum flavum hypertrophy also contribute to create moderately severe central canal stenosis with AP diameter of the thecal sac measured as approximately 0.6 cm, image #45 series 3. There is bilateral lateral recess stenosis. There is mild to moderate bilateral neural foraminal encroachment greater on the right. L4-5: Moderate disc height loss is noted with broad disc bulge as well as marginal osteophytes. There has been prior posterior laminectomy. There is mild to moderate bilateral facet arthropathy. There is bilateral lateral recess stenosis. There is no evidence of significant central canal stenosis. There is moderate encroachment upon the neural foramina bilaterally. L5-S1: Marked disc height loss is noted with marginal osteophytes. There is been prior laminectomy. There is moderate bilateral facet arthropathy. There is bilateral lateral recess stenosis. There is no evidence of significant central canal stenosis. There is mild to moderate bilateral neural foraminal encroachment. Atherosclerosis of the aorta and iliac arteries noted. CT/Spine Lumbar without Contrast IMPRESSION: Degenerative spondylosis as described. The most significant level of abnormality appears at L3-L4 where there appears to be a disc herniation and there is multifactorial central canal stenosis. See above. This appears to be more prominent than that seen on MRI 01/22/2016 Electronically Signed: Pamella Corona MD at 11:54 EDT , Service support ,
--- NOTE | 2020-05-04 11:04 | ED.DCSUM_ITS ---
History of Present Illness Chief Complaint: Back Informant: Patient Narrative: 74-year-old female presenting with acute on chronic back pain. She was seen yesterday and had lumbar spine x-ray which was negative for acute findings. She states that when she was given morphine yesterday her pain was improved however it is now come back. She is having trouble with ambulation. She has no loss of bladder or bowel control. She has no saddle paresthesias. He denies any new trauma. She states that the [place] her pain management doctor gives her is not helping. - Past Medical History (1) Benign hypertension Status: Chronic (2) Chronic low back pain Status: Chronic (3) HLD (hyperlipidemia) Status: Chronic Past Medical History - Allergies and Home Meds Allergies/Adverse Reactions: Allergies clindamycin Allergy (Mild, Verified 05/04/20 10:36) rash acetaminophen [From Tylenol-Codeine #3] Adverse Reaction (Severe, Verified 05/04/20 10:36) Nausea codeine phosphate [From Tylenol-Codeine #3] Adverse Reaction (Severe, Verified 05/04/20 10:36) Nausea Primary Care Physician: Jaime Culver Chi, MD [Primary Care Provider] - Prior records reviewed: Yes Past Medical History: - - Reviewed in problem list Surgical History: appendectomy, hysterectomy, tonsillectomy Lives: With Family Smoking Status: Never smoker Alcohol: None Drugs: None - Family History Maternal Family History: Family History (Last Updated 04/10/20 @ 09:08 by Marga So) Mother Heart valve disorder Hypertension Heart disease Father Pneumococcal pneumonia CVA (cerebral vascular accident) Heart disease Myocardial infarction Family History: Reports: Heart Disease Paternal Family History: Family History (Last Updated 04/10/20 @ 09:08 by Marga oS) Mother Heart valve disorder Hypertension Heart disease Father Pneumococcal pneumonia CVA (cerebral vascular accident) Heart disease Myocardial infarction Family History: Reports: Heart Disease Review of Systems General: Denies: Chills, Fever, Sweats Eyes: Denies: Visual changes - bilaterally, Diplopia ENT: Denies: Rhinorrhea, Sore throat Cardiovascular: Denies: Chest pain, Palpitations Respiratory: Denies: Dyspnea, Cough, Dyspnea on exertion Gastrointestinal: Denies: Abdominal pain, Nausea, Vomiting, Diarrhea, Melena, Hematochezia Genitourinary: Denies: Dysuria, Hematuria, Frequency Musculoskeletal: Reports: Back pain. Denies: Swelling, Extremity Pain Skin: Denies: Rash, Wounds Neurological: Denies: Headache, Weakness, Parasthesia, Numbness, -, - Physical Exam Vital Signs/Narrative: Vital Signs Temp Pulse Resp BP Pulse Ox 05/04/20 10:37 97.6 F L 78 17 179/104 H 100 General: Obese, No Acute Distress Head: Normocephalic, Atraumatic Eyes: Perrl, EOMI Cardiovascular: Regular rate, Regular rhythm Respiratory: No distress, CTA bilaterally Back: - - Neurolyse tenderness to palpation of the lumbar paraspinal musculature. There is no obvious midline deformity or step-off. Skin: Normal color, No rash Neurological: Alert, Oriented x3 Psychological: Normal affect, Normal Mood Diagnostic/Tx/Re-eval Clinical Impression(s) from Imaging Studies Lumbar Spine CT 05/04/20 11:03 IMPRESSION: Degenerative spondylosis as described. The most significant level of abnormality appears at L3-L4 where there appears to be a disc herniation and there is multifactorial central canal stenosis. See above. This appears to be more prominent than that seen on MRI 01/22/2016 Electronically Signed: Pamella Corona MD at 11:54 EDT , Service support , - Medical Decision Making Patient presents with acute on chronic back pain. She had an x-ray performed yesterday which was negative. I spoke with her pain management doctor about changing her medication until she can follow-up with the spinal specialist that her primary care is going to be sending her to. Did request a CT of the lumbar spine did show degenerative changes worsening L3-L4. He request that she follow-up closely but was amenable to giving her more medication. I did prescribe her some Percocet. Patient is given return precautions. She is counseled to call her electrostatic paint operator today. Patient stable for discharge at this time. Impression: 1. Acute exacerbation of chronic back pain ED Disposition - Plan for ED Patient: Disposition: Home or Assisted Living Instructions: ED LUMBAR RADICULOPATHY Prescriptions: Oxycodone HCl/Acetaminophen [Percocet 5/325] 1 tab PO Q6H PRN PRN 3 Days #12 tab PRN Reason: Pain Prescription Printed Referrals: Jaime Culver Chi, MD [Primary Care Provider] -
[2020-05-04] MEDS: Morphine 4 MG/ML Syringe IM (11:17)
[2020-05-04 12:08] VITALS: BP 192/98; PULSE 74; RESP 16
[2020-05-04 13:20] VITALS: BP 210/96
== END 2020-05-04 13:22 | disposition home or self-care (01) ==
PROVIDERS: Emergency Provider Student in an Organized Health Care Education/Training Program; PCP Family Medicine Geriatric Medicine
DX: M54.9 Dorsalgia, unspecified (principal); G89.29 Other chronic pain; E78.5 Hyperlipidemia, unspecified; I10 Essential (primary) hypertension; M48.061 Spinal stenosis, lumbar region without neurogenic claudication; Z82.3 Family history of stroke; Z82.49 Family history of ischemic heart disease and other diseases of the circulatory system; Z88.5 Allergy status to narcotic agent; Z88.6 Allergy status to analgesic agent; Z90.710 Acquired absence of both cervix and uterus
CPT/HCPCS: 72131; 96372; 99281

== ENCOUNTER 2020-05-19 14:24 | Observation (INO) | payer MEDICARE, SELFPAY ==
[2020-05-19 14:26] VITALS: BP 181/99; PULSE 81; RESP 20; TEMP 36.3; BMI 30.9
--- NOTE | 2020-05-19 16:14 | ED.VIS.GEN ---
History of Present Illness Chief Complaint: Back Informant: Patient Narrative: Patient presents the emergency department for intractable chronic back pain. Patient has been seeing Dr. Tee for pain management. To months ago she has spinal cord stimulator which helped for a while. She has subsequently turned it off. She followed up with spine surgery locally and supposed to have an MRI tomorrow. She states that she has been essentially bedbound for the past several weeks. Reportedly Dr. Mccarthy would like the patient admitted, we will call and talk with him directly. She denies any fevers. No rashes. No new symptoms just continued pain. She notes pain across diffusely across the low back and into the left hip. - Past Medical History (1) Hyponatremia Status: Chronic (2) Benign hypertension Status: Chronic (3) Chronic low back pain Status: Chronic (4) HLD (hyperlipidemia) Status: Chronic (5) Hypothyroidism Status: Chronic Past Medical History - Allergies and Home Meds Allergies/Adverse Reactions: Allergies clindamycin Allergy (Mild, Verified 05/19/20 16:34) rash acetaminophen [From Tylenol-Codeine #3] Adverse Reaction (Severe, Verified 05/19/20 16:34) Nausea codeine phosphate [From Tylenol-Codeine #3] Adverse Reaction (Severe, Verified 05/19/20 16:34) Nausea Primary Care Physician: Jaime Culver Chi, MD [Primary Care Provider] - Surgical History: appendectomy, hysterectomy, tonsillectomy Smoking Status: Never smoker - Family History Maternal Family History: Family History (Last Updated 04/10/20 @ 09:08 by Marga So) Mother Heart valve disorder Hypertension Heart disease Father Pneumococcal pneumonia CVA (cerebral vascular accident) Heart disease Myocardial infarction Family History: Reports: Heart Disease Paternal Family History: Family History (Last Updated 04/10/20 @ 09:08 by Marga So) Mother Heart valve disorder Hypertension Heart disease Father Pneumococcal pneumonia CVA (cerebral vascular accident) Heart disease Myocardial infarction Family History: Reports: Heart Disease Review of Systems General: Denies: Chills, Fever, Sweats Eyes: Denies: Visual changes - bilaterally, Diplopia ENT: Denies: Rhinorrhea, Sore throat Cardiovascular: Denies: Chest pain, Palpitations Respiratory: Denies: Dyspnea, Cough, Dyspnea on exertion Gastrointestinal: Denies: Abdominal pain, Nausea, Vomiting, Diarrhea, Melena, Hematochezia Genitourinary: Denies: Dysuria, Hematuria, Frequency Musculoskeletal: Reports: Back pain. Denies: Extremity Pain Skin: Denies: Rash, Wounds Neurological: Denies: Headache, Weakness, Numbness Physical Exam Vital Signs/Narrative: Vital Signs Temp Pulse Resp BP 05/19/20 14:26 97.3 F L 81 20 H 181/99 H Inital Vital Signs reviewed: Yes General: Well nourished, Well developed, Obese, No Acute Distress Head: Normocephalic, Atraumatic Eyes: Perrl, EOMI ENT: Moist mucous membranes, No rhinorrhea Neck: Supple, Nontender Cardiovascular: Regular rate, Regular rhythm, No murmurs Respiratory: No distress, CTA bilaterally, Chest nontender Abdomen: Soft, Nontender, Nondistended, Normal bowel sounds Back: - - Diffuse tenderness to palpation. There are no skin changes to suggest underlying abscess/infection. Extremities: Nontender, Edema Skin: Normal color, No rash Neurological: Alert, Oriented x3, Cranial nerves II-XII grossly intact, Normal Strength, Normal Sensation, Normal DTR. Negative for: Normal Gait - antalgic Psychological: Normal affect, Normal Mood Diagnostic/Tx/Re-eval - Medical Decision Making Chart was reviewed. I spoke with Dr. Mccarthy. Patient received morphine and Zofran. She has a chronic leukocytosis that has been evaluated by oncology. Plan after discussion with hospitalist and social work is to admit under observation with physical therapy eval tomorrow to get certified to go to the TCU. ED Disposition - Plan for ED Patient: Disposition: Acute Care Hospital [facility] Diagnosis: Intractable back pain Referrals: Jaime Culver Chi, MD [Primary Care Provider] -
[2020-05-19 16:26] LABS: Absolute Lymphocyte Count 1.84 X10^3/uL (0.83-4.51); Basophil# 0.08 X10^3/uL; Basophil% 0.5 % (0-1); Eosinophil# 0.06 X10^3/uL; Eosinophils% 0.4 % (0-5); Hematocrit 41.4 % (37-47); Hemoglobin 13.4 g/dL (12.0-15.0); Lymphocyte # 1.84 X10^3/ul (4.0); Lymphocyte % 11.4 % (19-41); Mean Corp Hgb Conc 32.4 g/dL (32-36); Mean Corpuscular Hgb 34.6 pg (27.0-32.0); Mean Platelet Vol. 10.7 fl (6.2-12.0); Monocyte# 0.98 X10^3/uL; Monocyte% 6.1 % (0-10); NRBC Flagged by Analyzer 0 % (0-5); Neutrophil # 12.95 X10^3/uL (2.7-7.7); Neutrophil % 80.4 % (47-70); Platelet Count 311 K/mm3 (150-450); Red Blood Count 3.87 M/mm3 (4.2-5.4); White Blood Count 16.1 K/mm3 (4.4-11.0)
[2020-05-19] MEDS: Ondansetron 4 MG/2 ML Vial IV (16:34)
[2020-05-19] MEDS: Morphine 4 MG/ML Syringe IV (16:34)
[2020-05-19 16:39] VITALS: BP 134/60; PULSE 86; RESP 16; O2SAT 98
[2020-05-19 16:40] LABS: ALB/GLOB Ratio 0.9 RATIO (0.9-2.4); AST(SGOT) 18 U/L (15-37); Alanine Aminotransfer ALT/SGPT 41 U/L (13-56); Albumin, Serum 3.4 g/dL (3.2-5.0); Alkaline Phosphatase 228 U/L (45-117); Anion Gap 7 (5-15); BUN 15 mg/dL (7-18); BUN/Creat Ratio 14.7 RATIO (10-20); Calcium,Total 9.1 mg/dL (8.5-10.1); Chloride 101 mmol/L (98-107); Creatinine, Serum 1.02 mg/dL (0.55-1.02); EST Glomerular Filtration Rate 56 mL/min (>60); Est Glom Filt Rate - Afr Amer 68 mL/min (>60); Estimated Creatinine Clearance 40.52 ml/min; Globulin 3.9 g/dL (2.2-4.2); Glucose 194 mg/dL (74-106); Potassium 3.8 mmol/L (3.5-5.1); Protein, Total 7.3 g/dL (6.4-8.2); Sodium Level 135 mmol/L (136-145)
[2020-05-19 17:47] LABS: Mucous, Urine 0 SEEN /hpf (<or=2+); Red Blood Cells-Urine 0 SEEN /hpf (0-5)
--- NOTE | 2020-05-19 17:56 | CM.ED ---
Social Work Consult: senior care placement Informant: Dr. Haynes Chief Complaint: Patient reports to be unable to care for self for the past month due to intractable back pain. Marital/Social History: . Advanced Care Planning: Patient daughter, Gabrielle Ruiz is HCPOA. Patient HCPOA documents are on patient echart. PCP: Dr. Culver Living Situation: Lives alone at [facility]. 1-story apartment with no steps to enter. Transportation: Prior to the past month patient drove self. Patient family has now been assisting with transportation. PLOF: Independent. DME: [facility]. Pharmacy: [place], [place] Support/Resources: Family. Family unable to meet patient needs in the community or provide 24hr care for patient in the home. Education/Employment: Retired. Denies any issues with comprehension or understanding. Mental Health Treatment/History: Reports history of some Anxiety. Denies current mental health services. No history of inpatient psychiatric placement. Denies suicidal thoughts/plans/intents or history of. Abuse Issues: Denies. Substance Abuse/Use: Denies Mental Status Exam: A&Ox3 Appearance/General Behavior: Clean. Calm. Appropriate. Mood/Affect: Pleasant. Engaged in assessment Communication Pattern: Responds to questions. Judgement: Good Assessment: Met with patient in room. Introduced self and social media marketing manager role. Patient agreeable to speak with this social media marketing manager. Patient reports plan to get to the TCU. Patient states I need therapy to get stronger. Patient educated on pre-cert process. Patient reports to have been independent prior to this past month. Patient states I need to get back to running around. Patient aware that unable to obtain pre-cert with patient insurance from the emergency room. This social media marketing manager educated patient that there is no way to confirm that pre-cert will be able to be obtained. Patient voices understanding. Patient with no questions. Updated Dr. Haynes on above. PLAN: Transition to acute care setting for assisted placement. Verenice BRANTLEY, ZULLY
--- NOTE | 2020-05-19 17:58 | PCM.HP.STD ---
<Mali Granados HYDRAULIC BARKER OPERATOR - Last Filed: 05/19/20 18:13> Problem List (1) Intractable back pain Status: Acute (2) Benign hypertension Status: Chronic (3) HLD (hyperlipidemia) Status: Chronic (4) Hypothyroidism Status: Chronic (5) Chronic low back pain Status: Chronic (6) Seasonal allergies Status: Chronic (7) Influenza A virus subtype H1 present Status: Resolved (8) Hyponatremia Status: Chronic (9) Traumatic ulcer of right lower extremity with fat layer exposed Status: Resolved (10) Orthostatic hypotension Status: Chronic (11) Bilateral lower extremity edema Status: Chronic (12) Macrocytosis Status: Chronic History of Present Illness Date of Admission: 05/19/20 Chief Complaint: Back pain with debility. The patient is a 74 year old F who presents emergency room due to acute on chronic back pain with debility. Patient states she has been following with Dr. Camacho for chronic back pain with history of dorsal column stimulator March 2020. She also receives back injections. Over the past 2 to 4 weeks her lower back pain has worsened and she states she is now bedbound with the exception of getting up to go to the bathroom. She was referred to Dr. Orta for evaluation who suspects spinal stenosis at L4-L5 however this is based on CT scan and patient has not had MRI. She reports pain radiation down her left leg. She denies loss of bowel or bladder function. She denies recent fall. Patient states Dr. Camacho's office was attempting to get patient to TCU for therapy however this was unable to be completed as an outpatient. She has a past medical history of hypertension, hyperlipidemia, hypothyroidism, restless leg syndrome. Past Medical History Past Medical History (Chronic Problems): Chronic Problems (Last Updated 04/10/20 @ 09:07 by Marga So) Benign hypertension (Chronic) HLD (hyperlipidemia) (Chronic) Hypothyroidism (Chronic) Chronic low back pain (Chronic) Seasonal allergies (Chronic) Hyponatremia (Chronic) Orthostatic hypotension (Chronic) Bilateral lower extremity edema (Chronic) Macrocytosis (Chronic) Medical History: Medical History (Last Updated 04/10/20 @ 09:07 by Marga So) Asthma J45.909 B12 deficiency E53.8 Cataract H26.9 Cataracts, bilateral H26.9 GERD (gastroesophageal reflux disease) K21.9 History of colon polyps Z86.010 Hyperlipidemia E78.5 RLS (restless legs syndrome) G25.81 Chronic back pain M54.9, G89.29 HTN (hypertension) I10 Allergies clindamycin Allergy (Mild, Verified 05/19/20 16:34) rash acetaminophen [From Tylenol-Codeine #3] Adverse Reaction (Severe, Verified 05/19/20 16:34) Nausea codeine phosphate [From Tylenol-Codeine #3] Adverse Reaction (Severe, Verified 05/19/20 16:34) Nausea Home Medications: Ambulatory Orders Medication Instructions Recorded Levothyroxine [Synthroid] 112 mcg PO DAILY 06/02/16 Hydrocodone/Acetaminophen 0.5 tab PO TID PRN 09/04/18 [Hydrocodone-Acetamin 7.5-325] Cetirizine HCl [Zyrtec] 10 mg PO DAILY 08/10/19 Famotidine [Pepcid] 40 mg PO DAILY 09/03/19 Amlodipine [Norvasc] 10 mg PO DAILY 01/30/20 Ipratropium [place] 0.06% 1 spray NASAL BID 01/30/20 [ATROVENT NASAL SPRAY (g)] Potassium Chloride [K-Dur] 20 meq PO DAILY 01/30/20 Ropinirole HCl [Requip] 1 mg PO QHS 01/30/20 Fluticasone/Vilanterol [Breo 1 ea IH DAILY 04/22/20 Ellipta Inhaler] Furosemide [Lasix] 40 mg PO DAILY 05/03/20 Tizanidine HCl [Zanaflex] 40 mg PO QHS 05/03/20 buprenorphine 10 mcg/hour weekly 1 patch TRANSDERMAL MO ea 05/12/20 transdermal patch montelukast 10 mg tablet 10 tab PO DAILY 05/12/20 olmesartan 20 mg tablet 20 ea PO DAILY 05/12/20 Metoprolol Succinate [Toprol Xl] 50 mg PO DAILY 05/19/20 Pravastatin Sodium 80 mg PO QHS 05/19/20 Surgical History: Surgical History (Last Reviewed 05/19/20 @ 18:03 by Mali Granados HYDRAULIC BARKER OPERATOR, HYDRAULIC BARKER OPERATOR-C) History of appendectomy Z90.49 History of bilateral carpal tunnel release Z98.890 History of carpal tunnel release Z98.890 History of colonoscopy Onset Date: ~2012 Z98.890 History of hysterectomy Z90.710 History of loop recorder Z98.890 Hx of tonsillectomy Z90.89 history of pain stimulator Surgical History: appendectomy, hysterectomy, tonsillectomy Psychiatric 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 psych hx CARPET 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 CARPET MECHANIC history Lives: Alone Smoking Status: Never smoker Alcohol: None Drugs: None - *Family History Maternal Family History: Family History (Last Updated 04/10/20 @ 09:08 by Marga So) Mother Heart valve disorder Hypertension Heart disease Father Pneumococcal pneumonia CVA (cerebral vascular accident) Heart disease Myocardial infarction History Items: Heart Disease Paternal Family History: Family History (Last Updated 04/10/20 @ 09:08 by Marga So) Mother Heart valve disorder Hypertension Heart disease Father Pneumococcal pneumonia CVA (cerebral vascular accident) Heart disease Myocardial infarction History Items: Heart Disease Review of Systems Constitutional: Denies: Chills, Fever, Weight Change HEENT: Denies: Head Aches, Sinus Congestion, Sinus Drainage Cardiovascular: Denies: Chest Pain, Palpitations Respiratory: Denies: Cough, Shortness of breath at rest, Sputum production Gastrointestinal: Denies: Abdominal Pain, Nausea, Vomiting Genitourinary: Denies: Dysuria Musculoskeletal: Reports: Back Pain. Denies: Joint Pain, Joint Tenderness Skin: Denies: Rash, Wounds Neurological: Denies: Numbness, Tingling, Focal weakness Psychiatric: Denies: Anxiety, Depression, Homicidal Ideations, Suicidal Ideations Hematologic/ Lymphatic: Denies: Easy Bruising, Easy Bleeding VTE Information - Inpt Only VTE Present on Admission: No VTE Mechan Device Prophylaxis: None VTE Pharm Prophylaxis ordered?: Yes Patient Problems: Active and Suspected Problems (Last Updated 04/10/20 @ 09:07 by Marga So) Intractable back pain (Acute) - Physical Exam Vitals/I&O's: Vital Signs Temp Pulse Resp BP Pulse Ox 97.3 F L 86 16 134/60 H 98 05/19/20 14:26 05/19/20 16:39 05/19/20 16:39 05/19/20 16:39 05/19/20 16:39 Oxygen Delivery Method Room Air Weight: 180 lb Body Mass Index (BMI) 30.9 Finger Stick Blood Glucose 135 General: Alert, Oriented x3, Cooperative HEENT: Atraumatic, PERRLA, EOMI, Normocephalic Neck: Supple, No JVD, Negative Carotid Bruits Lungs: Clear to auscultation, Normal air movement Cardiovascular: Regular rate, No murmurs Abdomen: Bowel Sounds Present, Soft, Non Tender Extremities: No clubbing, No cyanosis, No edema, Capillary Refill Less than 3 Seconds, Tenderness - Lumbar back area Skin: No rashes, No breakdown Musculoskeletal: No Tenderness to Palpation of Joints or Extremities Neurological: Cranial nerves II-XII grossly intact, Neuro grossly intact Psych/Mental Status: Normal Affect, Appropriate Laboratory Results 05/19/20 16:15: WBC 16.1 H, RBC 3.87 L, Hgb 13.4, Hct 41.4, MCV 107.0 H, MCH 34.6 H, MCHC 32.4, RDW Std Deviation 55.0 H, RDW Coeff of Taran 14.0, Plt Count 311, MPV 10.7, Immature Gran % (Auto) 1.200 H, Neut % (Auto) 80.4 H, Lymph % (Auto) 11.4 L, Glenn % (Auto) 6.1, Eos % (Auto) 0.4, Baso % (Auto) 0.5, Absolute Neuts (auto) 13.0 H, Absolute Lymphs (auto) 1.84, Nucleated RBC % 0 05/19/20 16:15: Sodium 135 L, Potassium 3.8, Chloride 101, Carbon Dioxide 27.0, Anion Gap 7, BUN 15, Creatinine 1.02, Estim Creat Clear Calc 40.52, Est GFR (MDRD) Af Amer 68, Est GFR (MDRD) Non-Af 56 L, BUN/Creatinine Ratio 14.7, Glucose 194 H, Calcium 9.1, Total Bilirubin 0.70, AST 18, ALT 41, Alkaline Phosphatase 228 H, Total Protein 7.3, Albumin 3.4, Globulin 3.9, Albumin/Globulin Ratio 0.9 05/19/20 17:35: Urine Color Pending, Urine Clarity Pending, Urine pH Pending, Ur Specific [place] Pending, Urine Protein Pending, Urine Glucose (UA) Pending, Urine Ketones Pending, Urine Occult Blood Pending, Urine Nitrite Pending, Urine Bilirubin Pending, Urine Urobilinogen Pending, Ur Leukocyte Esterase Pending, Urine RBC Pending, Urine WBC Pending, Ur Squamous Epith Cells Pending, Urine Bacteria Pending, Urine Mucus Pending Assessment/Plan All Active Problems (Last Updated 04/10/20 @ 09:07 by Marga So) Intractable back pain (Acute) Traumatic ulcer of right lower extremity with fat layer exposed (Resolved) Influenza A virus subtype H1 present (Resolved) 1. Acute on chronic back pain, spinal stenosis-with associated debility. Obtain MRI of lumbar spine. Consult Dr. Orta who patient has been following with on an outpatient basis. As needed pain regimen. PT/OT. Social work has already been involved and plan for TCU pending pre-CERT. Fall precautions. 2. Hypertension-stable, continue amlodipine, Lasix, metoprolol. 3. Hyperlipidemia-continue statin. 4. Hypothyroidism-continue Synthroid regimen. 5. Restless leg syndrome-continue Requip. 6. Chronic leukocytosis-follows with hematology for surveillance. Appears stable. DVT prophylaxis- Lovenox sc Discharge planning: TCU pending pre-cert This patient was seen by LEANN Jiang under the supervision of Dr. Arana. <Dusty Arana - Last Filed: 05/19/20 20:13> History of Present Illness The patient is a 74 year old F presents with worsening back pain. Patient essentially been bedbound for the past month unable to get up. Patient states that whenever she gets up pain radiates down her medial legs. She denies any bowel or bladder incontinence. Pain was just too unbearable and so she presented to the emergency room. Patient being evaluated by spine surgery and plan was for her to have an outpatient MRI. [] Past Medical History Medical History: Medical History (Last Reviewed 05/19/20 @ 20:[address] Dusty Arana, DO) Asthma J45.909 B12 deficiency E53.8 Cataract H26.9 Cataracts, bilateral H26.9 GERD (gastroesophageal reflux disease) K21.9 History of colon polyps Z86.010 Hyperlipidemia E78.5 RLS (restless legs syndrome) G25.81 Chronic back pain M54.9, G89.29 HTN (hypertension) I10 Allergies clindamycin Allergy (Mild, Verified 05/19/20 16:34) rash acetaminophen [From Tylenol-Codeine #3] Adverse Reaction (Severe, Verified 05/19/20 16:34) Nausea codeine phosphate [From Tylenol-Codeine #3] Adverse Reaction (Severe, Verified 05/19/20 16:34) Nausea Surgical History: Surgical History (Last Reviewed 05/19/20 @ 20:[address] 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 Dusty Arana DO) Mother Heart valve disorder Hypertension Heart disease Father Pneumococcal pneumonia CVA (cerebral vascular accident) Heart disease Myocardial infarction Paternal Family History: Family History (Last Reviewed 05/19/20 @ 20:[address] Dusty Arana DO) Mother Heart valve disorder Hypertension Heart disease Father Pneumococcal pneumonia CVA (cerebral vascular accident) Heart disease Myocardial infarction Review of Systems Constitutional: Denies: Chills, Fever, Weight Change HEENT: Denies: Head Aches, Sinus Congestion, Sinus Drainage Cardiovascular: Denies: Chest Pain, Palpitations Respiratory: Denies: Cough, Shortness of breath at rest, Sputum production Gastrointestinal: Denies: Abdominal Pain, Nausea, Vomiting Genitourinary: Denies: Dysuria Musculoskeletal: Reports: Back Pain. Denies: Joint Pain, Joint Tenderness Skin: Denies: Rash, Wounds Neurological: Denies: Focal weakness, Numbness, Tingling Psychiatric: Denies: Anxiety, Depression, Homicidal Ideations, Suicidal Ideations Hematologic/ Lymphatic: Denies: Easy Bruising, Easy Bleeding Comment: All review of systems were negative except as mentioned above in the history of present illness and the other review of systems. VTE Information - Inpt Only VTE Present on Admission: No VTE Mechan Device Prophylaxis: None VTE Pharm Prophylaxis ordered?: Yes - Physical Exam Vitals/I&O's: Vital Signs Temp Pulse Resp BP Pulse Ox 36.6 C 86 22 H 124/79 H 97 05/19/20 18:20 05/19/20 18:20 05/19/20 18:20 05/19/20 18:20 05/19/20 18:20 Oxygen Delivery Method Room Air Weight: 81.647 kg Body Mass Index (BMI) 30.9 Finger Stick Blood Glucose 135 General: Alert, Cooperative HEENT: Atraumatic, Normocephalic Lungs: Clear to auscultation, Normal air movement Cardiovascular: Regular rate, No murmurs Abdomen: Bowel Sounds Present, Soft, Non Tender Extremities: No edema Skin: No rashes, No breakdown Neurological: - - Muscle strength out of 5 in the lower extremities. Sensation intact in lower extremities. Psych/Mental Status: Normal Affect, Appropriate Laboratory Results 05/19/20 16:15: WBC 16.1 H, RBC 3.87 L, Hgb 13.4, Hct 41.4, MCV 107.0 H, MCH 34.6 H, MCHC 32.4, RDW Std Deviation 55.0 H, RDW Coeff of Taran 14.0, Plt Count 311, MPV 10.7, Immature Gran % (Auto) 1.200 H, Neut % (Auto) 80.4 H, Lymph % (Auto) 11.4 L, Glenn % (Auto) 6.1, Eos % (Auto) 0.4, Baso % (Auto) 0.5, Absolute Neuts (auto) 13.0 H, Absolute Lymphs (auto) 1.84, Nucleated RBC % 0 05/19/20 16:15: Sodium 135 L, Potassium 3.8, Chloride 101, Carbon Dioxide 27.0, Anion Gap 7, BUN 15, Creatinine 1.02, Estim Creat Clear Calc 40.52, Est GFR (MDRD) Af Amer 68, Est GFR (MDRD) Non-Af 56 L, BUN/Creatinine Ratio 14.7, Glucose 194 H, Calcium 9.1, Total Bilirubin 0.70, AST 18, ALT 41, Alkaline Phosphatase 228 H, Total Protein 7.3, Albumin 3.4, Globulin 3.9, Albumin/Globulin Ratio 0.9 05/19/20 17:35: Urine Color Yellow, Urine Clarity Sl. Cloudy, Urine pH 5.0, Ur Specific [place] 1.015, Urine Protein 30 H, Urine Glucose (UA) Normal, Urine Ketones Negative, Urine Occult Blood Negative, Urine Nitrite Negative, Urine Bilirubin Negative, Urine Urobilinogen Normal, Ur Leukocyte Esterase 100 H, Urine RBC 0 SEEN, Urine WBC 5-10 SEEN, Ur Squamous Epith Cells 5-10 SEEN, Urine Bacteria 1+, Urine Mucus 0 SEEN Current Medications Acetaminophen (Acetaminophen 325 Mg Tablet) 650 mg PO Q6H PRN PRN PRN Reason: Pain Score 1-10/Temp > 100.7 F Amlodipine Besylate (Amlodipine 10 Mg Tablet) 10 mg PO DAILY DICK Cyclobenzaprine HCl (Cyclobenzaprine Hcl 10 Mg Tablet) 5 mg PO TID PRN PRN PRN Reason: back spasm Enoxaparin Sodium (Enoxaparin 40 Mg/0.4 Ml Syringe) 40 mg SC DAILY [facility] Famotidine (Famotidine 20 Mg Tablet) 40 mg PO DAILY DICK Furosemide (Furosemide 40 Mg Tablet) 40 mg PO DAILY [facility] Sodium Chloride () 250 mls @ 15 mls/hr IV .[id number] PRN PRN Reason: Saline Flush Sodium Chloride () 250 mls @ 15 mls/hr IV .[id number] PRN PRN Reason: Additional IVPB Infusion Levothyroxine Sodium (Levothyroxine 112 Mcg Tablet) 112 mcg PO DAILY@0600 [facility] Losartan Potassium (Losartan Potassium 50 Mg Tablet) 50 mg PO DAILY [facility] Metoprolol Succinate (Metoprolol(Xl)Succ 50 Mg Tablet) 50 mg PO DAILY [facility] Morphine Sulfate (Morphine 2 Mg/Ml Syringe) 2 mg IV Q3H PRN PRN PRN Reason: Pain Score 6-10 Last Admin: 05/19/20 20:02 Dose: 2 mg Documented by: Non-Formulary Medication (Buprenorphine) 1 patch transdermal MO [facility] Ondansetron HCl (Ondansetron 4 Mg/2 Ml Vial) 4 mg IV Q8H PRN PRN PRN Reason: NAUSEA/VOMITING Potassium Chloride (Potassium Chloride 20 Meq Tablet) 20 meq PO DAILY [facility] Pramipexole Dihydrochloride (Pramipexole Di-Hcl 0.5 Mg Tablet) 0.5 mg PO QHS [facility] Pravastatin Sodium (Pravastatin 80 Mg Tablet) 80 mg PO QHS [facility] Sodium Chloride (0.9% Saline Lock 10 Ml Syringe) 10 - 40 ml IV UD PRN PRN Reason: SALINE FLUSH Last Admin: 05/19/20 20:02 Dose: 10 ml Documented by: Assessment/Plan Patient seen and examined independently. Data reviewed. I agree with the above note by the nurse practitioner. 1. Acute on chronic back pain. 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 Disc herniation noted at L3-L4 with multifactorial central canal stenosis. Noted to be more prominent than an MRI from 2016. No clinical concerns for cauda equina at this time. Will order an MRI for the patient. And patient very anxious about having the MRI. Explained that we can give her a dose of lorazepam. She was very insistent on being knocked out. Told her that that would not be happening given that we do not have conscious sedation available for MRIs at this time. We can give her dose of lorazepam prior to her procedure. Then she will need to follow-up with spine surgery as outpatient. Patient told that she would not be having any surgeries here during this hospitalization. 2. Debility: Secondary to above. PT OT evaluate and treat. Plan for nursing home facility upon discharge patient would not be able to adequately care for herself given her increased back pain. OBSV E&M: 25703 Initial observation care L3
[2020-05-19 18:10] LABS: Color, Urine Yellow (Yellow); Glucose, Dipstick Normal (Normal); Ketone-Dipstick Negative (Negative); Leukocyte Esterase-Dipstick 100 /ul (Negative); Nitrite-Dipstick Negative (Negative); Occult Blood-Urine Negative /ul (Negative); Protein-Dipstick 30 mg/dl (Negative); Specific Gravity, Urine 1.015 (1.002-1.030); Urine Bilirubin Dipstick Negative (Negative); Urine Clarity Sl. Cloudy (Clear); Urine Urobilinogen Normal (Normal)
[2020-05-19 18:20] VITALS: BP 124/79; PULSE 86; RESP 22; TEMP 36.6; O2SAT 97
[2020-05-19 18:38] VITALS: BMI 30.9
[2020-05-19 18:45] VITALS: BMI 81.6
[2020-05-19 19:02] LABS: Bacteria 1+ /hpf (None Seen); Squamous Epithelial Cells - UA 5-10 SEEN /hpf (5-10); White Blood Cells 5-10 SEEN /hpf (0-5)
[2020-05-19] MEDS: Morphine 2 MG/ML Syringe IV (20:02)
[2020-05-19] MEDS: 0.9% Saline Lock 10 ML Syringe IV (20:02)
[2020-05-19 20:07] VITALS: BP 155/73; PULSE 82; RESP 17; TEMP 36.6; O2SAT 98
[2020-05-19] MEDS: Pramipexole Di-HCl 0.5 MG Tablet PO (22:49)
[2020-05-19] MEDS: Pravastatin 80 MG Tablet PO (22:49)
[2020-05-20] MEDS: Morphine 2 MG/ML Syringe IV (00:31)
[2020-05-20] MEDS: 0.9% Saline Lock 10 ML Syringe IV ×2 (00:32→14:48)
[2020-05-20 03:01] VITALS: BP 136/74; PULSE 80; RESP 18; TEMP 36.9; O2SAT 97
[2020-05-20] MEDS: Levothyroxine 112 MCG Tablet PO (05:48)
[2020-05-20] MEDS: Acetaminophen 325 MG Tablet 650 MG PO (05:50)
[2020-05-20] MEDS: cycloBENZAPRine HCl 10 MG Tablet 5 MG PO (05:51)
--- NOTE | 2020-05-20 07:47 | PN_ITS ---
Patient Problems: Active and Suspected Problems (Last Reviewed 05/19/20 @ 20:[address] Dusty Arana, DO) Intractable back pain (Acute) Subjective: Patient overnight with ongoing discomfort to her lumbar spine, worse when she attempts to sit down or lay in the bed, walking in her room with cane. Discussed presentation with patient and amenable to broadening of her regimen including lidocaine patches, low-dose 3 times daily gabapentin, scheduled low- dose Toradol x5 doses only given age and renal function, Medrol Dosepak with c ontinued planned MRI. Patient understands also waiting neurosurgery evaluation. Patient denies fevers, chills, nausea, emesis, abdominal pain, chest pain or dyspnea. Objective: Physical Examination: General: awake, alert, oriented x 3 and cooperative, fully walking in the bathroom, attempted to have her sit down to perform exam and noted discomfort, severe, rated 8 out of 10 in severity, up eventually walking the room with a cane despite severe discomfort. Skin: normal color, turgor, no icterus, cyanosis. HEENT: AT/NC, EOMI, PERRLA, mildly dry MM. Lungs: CTA bilaterally, moderate effort, mild decrease BL bases, no rales, ronchi or wheezing. Heart: Regular rate and rhythm; no gallop, rub audible. Abdomen: soft, NTTP, ND, normal BS. Extremities: no cyanosis, clubbing, or edema. Neurological: patient awake, alert, oriented as noted; cognitive function appears baseline intact; pupils equally reactive to light and accomodation; cranial nerves II-XII grossly normal, moving all 4 extremities, still notes ongoing severe lumbar back discomfort, no specific spinal discomfort with palpation of paraspinal, strength at least moderately global decreased but difficult assessment. Psychiatric: affect appears normal, no acute evidence of depressive or anxiety feelings. Vitals/I&O's: Vital Signs Temp Pulse Resp BP Pulse Ox 98.4 F 80 18 136/74 H 97 05/20/20 03:01 05/20/20 03:01 05/20/20 03:01 05/20/20 03:01 05/20/20 03:01 Oxygen Delivery Method Room Air Weight: 180 lb Body Mass Index (BMI) 30.9 Finger Stick Blood Glucose 135 Intake and Output for Last 24 Hours 05/18/20 05/19/20 05/20/20 23:59 23:59 23:59 Intake Total 825 / 825 Balance 825 / 825 Laboratory Results 05/19/20 16:15: WBC 16.1 H, RBC 3.87 L, Hgb 13.4, Hct 41.4, MCV 107.0 H, MCH 34.6 H, MCHC 32.4, RDW Std Deviation 55.0 H, RDW Coeff of [place]an 14.0, Plt Count 311, MPV 10.7, Immature Gran % (Auto) 1.200 H, Neut % (Auto) 80.4 H, Lymph % (Auto) 11.4 L, [place] % (Auto) 6.1, Eos % (Auto) 0.4, Baso % (Auto) 0.5, Absolute Neuts (auto) 13.0 H, Absolute Lymphs (auto) 1.84, Nucleated RBC % 0 05/19/20 16:15: Sodium 135 L, Potassium 3.8, Chloride 101, Carbon Dioxide 27.0, Anion Gap 7, BUN 15, Creatinine 1.02, Estim Creat Clear Calc 40.52, Est GFR (MDRD) Af Amer 68, Est GFR (MDRD) Non-Af 56 L, BUN/Creatinine Ratio 14.7, Glucose 194 H, Calcium 9.1, Total Bilirubin 0.70, AST 18, ALT 41, Alkaline Phosphatase 228 H, Total Protein 7.3, Albumin 3.4, Globulin 3.9, Albumin/Globulin Ratio 0.9 05/19/20 16:15: Magnesium Pending 05/19/20 17:35: Urine Color Yellow, Urine Clarity Sl. Cloudy, Urine pH 5.0, Ur Specific [place] 1.015, Urine Protein 30 H, Urine Glucose (UA) Normal, Urine Ketones Negative, Urine Occult Blood Negative, Urine Nitrite Negative, Urine Bilirubin Negative, Urine Urobilinogen Normal, Ur Leukocyte Esterase 100 H, Urine RBC 0 SEEN, Urine WBC 5-10 SEEN, Ur Squamous Epith Cells 5-10 SEEN, Urine Bacteria 1+, Urine Mucus 0 SEEN Current Medications Acetaminophen (Acetaminophen 325 Mg Tablet) 650 mg PO Q6H PRN PRN PRN Reason: Pain Score 1-10/Temp > 100.7 F Last Admin: 05/20/20 05:50 Dose: 650 mg Documented by: Amlodipine Besylate (Amlodipine 10 Mg Tablet) 10 mg PO DAILY DICK Cyclobenzaprine HCl (Cyclobenzaprine Hcl 10 Mg Tablet) 5 mg PO TID PRN PRN PRN Reason: back spasm Last Admin: 05/20/20 05:51 Dose: 5 mg Documented by: Enoxaparin Sodium (Enoxaparin 40 Mg/0.4 Ml Syringe) 40 mg SC DAILY [facility] Famotidine (Famotidine 20 Mg Tablet) 40 mg PO DAILY [facility] Furosemide (Furosemide 40 Mg Tablet) 40 mg PO DAILY [facility] Gabapentin (Gabapentin 100 Mg Capsule) 100 mg PO TIDCM DICK Sodium Chloride () 250 mls @ 15 mls/hr IV .[id number] PRN PRN Reason: Saline Flush Sodium Chloride () 250 mls @ 15 mls/hr IV .[id number] PRN PRN Reason: Additional IVPB Infusion Ketorolac Tromethamine (Ketorolac 15 Mg/Ml Vial) 15 mg IV Q8 [facility] Stop: 05/21/20 14:01 Levothyroxine Sodium (Levothyroxine 112 Mcg Tablet) 112 mcg PO DAILY@0600 [facility] Last Admin: 05/20/20 05:48 Dose: 112 mcg Documented by: Lidocaine (Lidocaine 5% Patch) 2 patch TOPICAL DAILY [facility]; Protocol Lorazepam (Lorazepam 1 Mg Tablet) 1 mg PO X1 PRN PRN Reason: ANXIETY Losartan Potassium (Losartan Potassium 50 Mg Tablet) 50 mg PO DAILY [facility] Methylprednisolone (Methylprednisolone Dosepak 4 Mg Box) 4 mg PO UD [facility] Metoprolol Succinate (Metoprolol(Xl)Succ 50 Mg Tablet) 50 mg PO DAILY [facility] Morphine Sulfate (Morphine 2 Mg/Ml Syringe) 2 mg IV Q3H PRN PRN PRN Reason: Pain Score 6-10 Last Admin: 05/20/20 00:31 Dose: 2 mg Documented by: Non-Formulary Medication (Buprenorphine) 1 patch transdermal MO [facility] Ondansetron HCl (Ondansetron 4 Mg/2 Ml Vial) 4 mg IV Q8H PRN PRN PRN Reason: NAUSEA/VOMITING Potassium Chloride (Potassium Chloride 20 Meq Tablet) 20 meq PO DAILY [facility] Pramipexole Dihydrochloride (Pramipexole Di-Hcl 0.5 Mg Tablet) 0.5 mg PO QHS [facility] Last Admin: 05/19/20 22:49 Dose: 0.5 mg Documented by: Pravastatin Sodium (Pravastatin 80 Mg Tablet) 80 mg PO QHS [facility] Last Admin: 05/19/20 22:49 Dose: 80 mg Documented by: Sodium Chloride (0.9% Saline Lock 10 Ml Syringe) 10 - 40 ml IV UD PRN PRN Reason: SALINE FLUSH Last Admin: 05/20/20 00:32 Dose: 10 ml Documented by: Medical Necessity - Tobacco Use Smoking Status: Never smoker Assessment/Plan All Active Problems (Last Reviewed 05/19/20 @ 20:[address] Dusty Arana, DO) Intractable back pain (Acute) Traumatic ulcer of right lower extremity with fat layer exposed (Resolved) Influenza A virus subtype H1 present (Resolved) The patient is a 74 y/o F w/ PMHx: HTN, HLD, Chronic anemia, Hypothyroidism, As thma, Obesity, GERD with history of PUD, Chronic pain syndrome (back pain) on chronic pain regimen who presents to the [facility] ED on 05/19/20 with history of worsening intractable lumbar back pain with ongoing injections outpatient, more severe discomfort over the last 2 to 4 weeks with evaluation per Dr. Orta, neurosurgery secondary to suspected spinal stenosis awaiting imaging. 1. Acute on Chronic Intractable Lumbar Back Pain: Patient mated to MS, maintain on fall precautions, frequent positioning, po/IV pain regimen, initiate [employer] if oral/IV PRN regimen not sufficiency, home tizanidine regimen, anti-emetics, bowel regimen, will add given severity of ongoing pain low-dose gabapentin, scheduled low-dose Toradol x5 doses only, lidocaine patches in addition to Medrol Dosepak. MRI lumbar spine obtained w/ noted worsening degenerative disc disease at L3/L4 and L4/L5 with suspected bilateral sacral scotty insufficiency fractures. Neurosurgery consultation performed with noted intention for de compression at the level L3-4 given worsening findings on imaging and increased ability approximately 1 week prior to current presentation outpatient. PT and OT for discharge planning with currently plan for TCU if felt appropriate. 2. Hypertension: Continue home regimen including Norvasc, Lasix, metoprolol, olmesartan with hold parameters, PRN hydralazine. 3. Hyperlipidemia: Continue home statin regimen. 4. RLS: We will continue patient home nightly Requip regimen. 5. Chronic asthma: We will continue patient home Breo inhalation regimen, as needed albuterol, encourage head of bed and I-S. 6. Allergic rhinitis: We will continue patient home Zyrtec, Atrovent, Singulair regimen. 7. Hypothyroidism: Continue home synthroid regimen. 8. GERD with history of PUD: We will continue patient home famotidine regimen. 9. DVT prophylaxis: SCDs, Lovenox. 10. CODE status: DNR-CCA, no intubation status. OBSV E&M: 12341 Subsequent observation care L3
[2020-05-20 07:49] LABS: Magnesium 2.1 mg/dL (1.6-2.6)
[2020-05-20] MEDS: Ketorolac 15 MG/ML Vial IV ×2 (08:37→14:48)
[2020-05-20] MEDS: Gabapentin 100 MG Capsule PO ×3 (08:40→16:07)
[2020-05-20 08:42] VITALS: BP 190/86; PULSE 82
[2020-05-20] MEDS: amLODIPine 10 MG Tablet PO (08:42)
[2020-05-20] MEDS: Metoprolol(XL)Succ 50 MG Tablet PO (08:42)
[2020-05-20] MEDS: Losartan Potassium 50 MG Tablet PO (08:42)
[2020-05-20] MEDS: Lidocaine 5% Patch 2 PATCH TOPICAL (08:51)
[2020-05-20] MEDS: LORazepam 1 MG Tablet PO ×2 (08:51→11:51)
[2020-05-20 08:56] VITALS: BP 190/80; PULSE 82; RESP 18; TEMP 37.2; O2SAT 97
[2020-05-20] MEDS: MethylPREDNISolone DosePak 4 MG BOX PO ×2 (09:02→16:07)
--- NOTE | 2020-05-20 09:55 | CASEMGMT ---
Addendum entered by Christina Gonzalez 05/20/20 14:19: SW in to speak with pt. SW introduced self and role at [facility]. Pt is alert and orientated. Pt states that she will be having back surgery next week, wishes to discharge home instead of going to TCU at this time. Pt asked about HHC. SW informed pt that this worker will relay message to ANITA CAMARA. RN CM updated. Original Note: Social Work Note VENICE reviewed notes. Pt wanting [facility] TCU. VENICE placed a call to Rhianna in TCU. Rhianna states TCU is able to accept pt and will submit for pre-cert once PT/OT works with pt. Plan: TCU pending pre-cert Christina Gonzalez INSURANCE ACCOUNT SPECIALIST, DIRECTOR GIFT
[2020-05-20] MEDS: Enoxaparin 40 MG/0.4 ML Syringe SC (11:51)
[2020-05-20] MEDS: Famotidine 20 MG Tablet 40 MG PO (11:51)
--- NOTE | 2020-05-20 12:00 | MRI_ITS ---
STUDY: MRI LUMBAR SPINE WITHOUT CONTRAST REASON FOR EXAM: Female, 74 years old. back pain, stenosis, left leg radiculopathy -- Pt had spinal cord neurostimulator in 2019 TECHNIQUE: Standardized fat and water weighted pulse sequences were obtained in the sagittal and axial planes. COMPARISON: CT 05/04/2020, MRI 01/22/2016 FINDINGS: T12-L1: Normal endplates. Normal disc height, hydration and morphology. Normal bilateral facet joints. Normal central canal and bilateral lateral recesses. Normal bilateral intervertebral neural foramina. Normal lumbar lordosis. There is no substantial scoliosis. Normal conus medullaris that terminates at the T12/L1. L1-2: No change in the small right paracentral disc protrusion which produces mild spinal stenosis but no neural foraminal stenosis. L2-3: Mild bilateral facet hypertrophy with fluid in the facet joints consistent with instability and moderate ligament flavum hypertrophy. No change in the 2 mm retrolisthesis of L2 on L3 with enlargement of the broad disc protrusion which is now moderate in size and produces moderate spinal stenosis with moderate bilateral lateral recess stenosis with abutment of the L3 nerve roots bilaterally and mild bilateral neural foraminal stenosis. L3-4: Moderate bilateral facet hypertrophy with fluid in the facet joints consistent with instability and moderate ligament flavum hypertrophy. No change in the 2 mm retrolisthesis of L3 on L4. Enlargement of the broad disc protrusion which is now large in size which produces severe spinal stenosis with severe bilateral lateral recess stenosis with effacement of the L4 nerve roots bilaterally and moderate bilateral neural foraminal stenosis. L4-5: Status post posterior decompression. Mild bilateral facet hypertrophy with fluid in the facet joints consistent with instability. Enlargement of the broad disc protrusion which is now moderate in size as well as interval development of a large superiorly extending right paracentral disc extrusion which extends superiorly nearly to the L3-L4 disc space with moderate spinal stenosis, moderate right lateral recess stenosis with abutment of the right L4 nerve root and moderate bilateral neural foraminal stenosis with abutment of the exiting L4 nerve roots bilaterally. L5-S1: Status post posterior decompression. Ankylosis of the disc space with no change in the mild broad disc protrusion which produces mild spinal stenosis and mild bilateral neural foraminal stenosis. Areas of marrow edema within the sacral ala bilaterally worrisome for insufficiency fractures. Correlation with dedicated MRI of the pelvis may be useful. Normal visualized paraspinous soft tissue structures. MRI/Spine Lumbar (Routine) IMPRESSION: 1. Worsening degenerative disc disease at L3/L4 and L4/L5 as described above. 2. Suspect bilateral sacral ala insufficiency fractures in correlation with pelvic MRI may be useful. Electronically Signed: Max Feliciano MD at 13:31 EST Tel , Service support ,
[2020-05-20] MEDS: Furosemide 40 MG Tablet PO (12:57)
--- NOTE | 2020-05-20 14:08 | PCM.CONS.B ---
- Consult Date of Consult: 05/20/20 - Reason for Consult This consultation on Kyleigh Strickland. Kyleigh is well familiar to me as I have seen her in the office just 8 days ago. She has had pain in her low back and mostly down her left leg and with a little on her right leg for many many months. Pain has gradually been getting worse. She was scheduled to have an MRI scan of the lumbar spine today but she went to the emergency room last night she was admitted the MRI scan was indeed done today. She denies any bowel or bladder dysfunction. She denies history of unexplained weight loss no fever sweats or chills. She denies lower extremity weakness per se. She describes perfect neurogenic claudication with ambulation. It is easier for her to sit than it is to stand. On examination she has 3+ patellar reflexes bilaterally. She has 1+ Achilles reflexes bilaterally. She has excellent motor strength of all the major muscle groups of both lower extremities. She has no specific dysesthesias. She has no long tract signs. Clonus is absent and Babinski's are downgoing. I reviewed the MRI scan that was done today. It demonstrates that she has severe stenosis at the L3-4 level with a concomitant herniation on the right side that went behind the L4 vertebral body. Our plan is to schedule her for surgical intervention to decompress her at the L3-4 level.
--- NOTE | 2020-05-20 15:18 | CASEMGMT ---
RN CM in to discuss discharge planning. Patient states she would like to go home, denies [facility] for nursing or therapy at this time, states she will wait till after her outpatient surgery with Dr. Orta. Patient denied further questions or concerns at this time.
--- NOTE | 2020-05-20 15:28 | DCINST_ITS ---
- Discharge Diagnoses Current Active Problems: Current Active and Chronic Problems (Last Reviewed 05/19/20 @ 20:[address] Dusty Arana, DO) 1. Acute on Chronic Intractable Lumbar Back Pain secondary to worsening degenerative disc disease at L3/L4 and L4/L5 with suspected bilateral sacral scotty insufficiency fractures and worsening severe stenosis. 2. Hypertension 3. Hyperlipidemia 4. RLS 5. Chronic asthma 6. Allergic rhinitis 7. Hypothyroidism 8. GERD with history of PUD You will use the following diet at home:: Cardiac Your food should be the consistency of: Regular Your liquids should be the consistency of: Regular/Thin Discharge Activity: May not drive while taking narcotic pain medications., - - Advise continued cane usage, fall precautions especially given sedative regimen usage. May resume sexual activity in: - - Avoid until clinically improved and cleared per your neursurgeon. Call your doctor if you observe: Fever of 101 or Higher, Inability to urinate, Inability to have a bowel movement, Shortness of breath, Dizziness, Fainting spells, Chest pain, Uncontrolled pain Instructions: Relieving Back Pain Allergies/Adverse Reactions: Allergies clindamycin Allergy (Mild, Verified 05/19/20 16:34) rash acetaminophen [From Tylenol-Codeine #3] Adverse Reaction (Severe, Verified 05/19/20 16:34) Nausea codeine phosphate [From Tylenol-Codeine #3] Adverse Reaction (Severe, Verified 05/19/20 16:34) Nausea Medications to take at Discharge Levothyroxine [Synthroid] 112 mcg PO DAILY 06/02/16 Hydrocodone/Acetaminophen [Hydrocodone-Acetamin 7.5-325] 0.5 tab PO TID PRN 09/04/18 Cetirizine HCl [Zyrtec] 10 mg PO DAILY 08/10/19 Famotidine [Pepcid] 40 mg PO DAILY 09/03/19 Amlodipine [Norvasc] 10 mg PO DAILY 01/30/20 Ipratropium [place] 0.06% [ATROVENT NASAL SPRAY] 1 spray NASAL BID 01/30/20 Potassium Chloride [K-Dur] 20 meq PO DAILY 01/30/20 Ropinirole HCl [Requip] 1 mg PO QHS 01/30/20 Fluticasone/Vilanterol [Breo Ellipta 100-25 Mcg INH] 1 ea IH DAILY 04/22/20 Furosemide [Lasix] 40 mg PO DAILY 05/03/20 buprenorphine 10 mcg/hour weekly transdermal patch 1 patch TRANSDERMAL MO ea 05/12/20 montelukast 10 mg tablet 10 tab PO DAILY 05/12/20 olmesartan 20 mg tablet 20 ea PO DAILY 05/12/20 Metoprolol Succinate [Toprol Xl] 50 mg PO DAILY 05/19/20 Pravastatin Sodium 80 mg PO QHS 05/19/20 Gabapentin [Neurontin] 100 mg PO TIDCM 7 Days #21 cap 05/20/20 Lidocaine [Lidoderm Patch] 2 patch TOPICAL DAILY 7 Days #14 patch 05/20/20 MethylPREDNISolone DosePak [Medrol DosePak] 4 mg PO UD #1 box 05/20/20 cycloBENZAPRine HCl [Flexeril] 5 mg PO TID PRN PRN 7 Days #21 tab 05/20/20 The following prescriptions were given: cycloBENZAPRine HCl [Flexeril] 5 mg PO TID PRN PRN 7 Days #21 tab PRN Reason: Back muscle strain Transmission Status: Pending to [id number] Lidocaine [Lidoderm Patch] 2 patch TOPICAL DAILY 7 Days #14 patch Transmission Status: Pending to [id number] MethylPREDNISolone DosePak [Medrol DosePak] 4 mg PO UD #1 box Transmission Status: Pending to [id number] Gabapentin [Neurontin] 100 mg PO TIDCM 7 Days #21 cap Transmission Status: Pending to [id number] Primary Care Physician: Jaime Culver Chi, MD [Primary Care Provider] - Please follow up with your Primary Care Physician in: Please follow-up within 3- 5 days to review admission. Test Results: Test results from this visit will be discussed in further detail at your follow- up appointment, if applicable. Please Follow Up With: Fitz Orta DO When: Please follow-up per Dr. Orta request, timeline per his discretion. Proposed Discharge Date: 05/20/20
--- NOTE | 2020-05-20 15:31 | PCM.DC.SUM ---
Discharge Date and Diagnosis - Problem List Patient Problems: Active and Suspected Problems (Last Reviewed 05/19/20 @ 20:[address] Dusty Arana DO) Intractable back pain (Acute) Date of Admission: 05/19/20 Date of Discharge: 05/20/20 - Primary Discharge Diagnosis Acute Problems: Active Problems (Last Reviewed 05/19/20 @ 20:[address] Dusty Arana DO) 1. Acute on Chronic Intractable Lumbar Back Pain secondary to worsening degenerative disc disease at L3/L4 and L4/L5 with suspected bilateral sacral scotty insufficiency fractures and worsening severe stenosis. 2. Hypertension 3. Hyperlipidemia 4. RLS 5. Chronic asthma 6. Allergic rhinitis 7. Hypothyroidism 8. GERD with history of PUD - Secondary Discharge Diagnosis Chronic Problems: Chronic Problems (Last Reviewed 05/19/20 @ 20:[address] Dusty Arana DO) Benign hypertension (Chronic) HLD (hyperlipidemia) (Chronic) Hypothyroidism (Chronic) Chronic low back pain (Chronic) Seasonal allergies (Chronic) Hyponatremia (Chronic) Orthostatic hypotension (Chronic) Bilateral lower extremity edema (Chronic) Macrocytosis (Chronic) Hospital Course and Treatment Imaging Results: 05/20/20 12:00 Spine Lumbar (Routine) [MRI] Urgent Dr. Fitz Orta, Neurosurgery Operations: None Procedures: None Summary of Care Provided: The patient is a 74 y/o F w/ PMHx: HTN, HLD, Chronic anemia, Hypothyroidism, Asthma, Obesity, GERD with history of PUD, Chronic pain syndrome (back pain) on chronic pain regimen who presented to the [facility] ED on 05/19/20 with history of worsening intractable lumbar back pain with ongoing injections outpatient, more severe discomfort over the last 2 to 4 weeks with evaluation per Dr. Orta, neurosurgery secondary to suspected spinal stenosis awaiting imaging. Patient admitted to [facility], maintain on fall precautions, frequent positioning, po/IV pain regimen, initiate RN CLINICAL if oral/IV PRN regimen not sufficiency, home tizanidine regimen, anti-emetics, bowel regimen, will add given severity of ongoing pain low-dose gabapentin, scheduled low-dose Toradol x5 doses only, lidocaine patches in addition to Medrol Dosepak. MRI lumbar spine obtained w/ noted worsening degenerative disc disease at L3/L4 and L4/L5 with suspected bilateral sacral scotty insufficiency fractures. Neurosurgery consultation performed with noted intention for decompression at the level L3-4 given worsening findings on imaging and increased ability approximately 1 week prior to current presentation outpatient. Patient declined any home therapies as she clinically improves and felt herself appropriate for discharge home. Patient discharged home in improved condition with continued regimen including lidocaine patches, gabapentin low-dose, transition from high-dose tizanidine to low-dose 3 times daily as needed Flexeril, Medrol Dosepak with follow-up discharge evaluation with her PCP as well as neurosurgery, Dr. Orta for planning for operative intervention per his discretion. Patient Problems: Active and Suspected Problems (Last Reviewed 05/19/20 @ 20:[address] Dusty Arana, DO) Intractable back pain (Acute) - Physical Exam Vitals/I&O's: Vital Signs Temp Pulse Resp BP Pulse Ox 98.9 F 82 18 190/80 H 97 05/20/20 08:56 05/20/20 08:56 05/20/20 08:56 05/20/20 08:56 05/20/20 08:56 Oxygen Delivery Method Room Air Weight: 180 lb Body Mass Index (BMI) 30.9 Finger Stick Blood Glucose 135 Intake and Output for Last 24 Hours 05/18/20 05/19/20 05/20/20 23:59 23:59 23:59 Intake Total 1625 / 1625 Balance 1625 / 1625 Laboratory Results 05/19/20 16:15: WBC 16.1 H, RBC 3.87 L, Hgb 13.4, Hct 41.4, MCV 107.0 H, MCH 34.6 H, MCHC 32.4, RDW Std Deviation 55.0 H, RDW Coeff of [place]an 14.0, Plt Count 311, MPV 10.7, Immature Gran % (Auto) 1.200 H, Neut % (Auto) 80.4 H, Lymph % (Auto) 11.4 L, [place] % (Auto) 6.1, Eos % (Auto) 0.4, Baso % (Auto) 0.5, Absolute Neuts (auto) 13.0 H, Absolute Lymphs (auto) 1.84, Nucleated RBC % 0 05/19/20 16:15: Sodium 135 L, Potassium 3.8, Chloride 101, Carbon Dioxide 27.0, Anion Gap 7, BUN 15, Creatinine 1.02, Estim Creat Clear Calc 40.52, Est GFR (MDRD) Af Amer 68, Est GFR (MDRD) Non-Af 56 L, BUN/Creatinine Ratio 14.7, Glucose 194 H, Calcium 9.1, Total Bilirubin 0.70, AST 18, ALT 41, Alkaline Phosphatase 228 H, Total Protein 7.3, Albumin 3.4, Globulin 3.9, Albumin/Globulin Ratio 0.9 05/19/20 16:15: Magnesium 2.1 05/19/20 17:35: Urine Color Yellow, Urine Clarity Sl. Cloudy, Urine pH 5.0, Ur Specific [place] 1.015, Urine Protein 30 H, Urine Glucose (UA) Normal, Urine Ketones Negative, Urine Occult Blood Negative, Urine Nitrite Negative, Urine Bilirubin Negative, Urine Urobilinogen Normal, Ur Leukocyte Esterase 100 H, Urine RBC 0 SEEN, Urine WBC 5-10 SEEN, Ur Squamous Epith Cells 5-10 SEEN, Urine Bacteria 1+, Urine Mucus 0 SEEN Current Medications Acetaminophen (Acetaminophen 325 Mg Tablet) 650 mg PO Q6H PRN PRN PRN Reason: Pain Score 1-10/Temp > 100.7 F Last Admin: 05/20/20 05:50 Dose: 650 mg Documented by: Albuterol Sulfate (Albuterol 2.5 Mg/3 Ml Vial.Neb.) 2.5 mg INHALATION Q6HWA.RT [facility] Albuterol Sulfate (Albuterol 2.5 Mg/3 Ml Vial.Neb.) 2.5 mg INHALATION Q2H PRN PRN PRN Reason: Dyspnea, wheezing Amlodipine Besylate (Amlodipine 10 Mg Tablet) 10 mg PO DAILY [facility] Last Admin: 05/20/20 08:42 Dose: 10 mg Documented by: Cyclobenzaprine HCl (Cyclobenzaprine Hcl 10 Mg Tablet) 5 mg PO TID PRN PRN PRN Reason: back spasm Last Admin: 05/20/20 05:51 Dose: 5 mg Documented by: Enoxaparin Sodium (Enoxaparin 40 Mg/0.4 Ml Syringe) 40 mg SC DAILY [facility] Last Admin: 05/20/20 11:51 Dose: 40 mg Documented by: Famotidine (Famotidine 20 Mg Tablet) 40 mg PO DAILY [facility] Last Admin: 05/20/20 11:51 Dose: 40 mg Documented by: Furosemide (Furosemide 40 Mg Tablet) 40 mg PO DAILY [facility] Last Admin: 05/20/20 12:57 Dose: 40 mg Documented by: Gabapentin (Gabapentin 100 Mg Capsule) 100 mg PO TIDCM [facility] Last Admin: 05/20/20 12:56 Dose: 100 mg Documented by: Sodium Chloride () 250 mls @ 15 mls/hr IV .[id number] PRN PRN Reason: Saline Flush Sodium Chloride () 250 mls @ 15 mls/hr IV .[id number] PRN PRN Reason: Additional IVPB Infusion Ipratropium [place] (Ipratropium [place] 0.06% Nasal [place]) 1 spray NASAL BID [facility] Ketorolac Tromethamine (Ketorolac 15 Mg/Ml Vial) 15 mg IV Q8 [facility] Stop: 05/21/20 14:01 Last Admin: 05/20/20 14:48 Dose: 15 mg Documented by: Levothyroxine Sodium (Levothyroxine 112 Mcg Tablet) 112 mcg PO DAILY@0600 [facility] Last Admin: 05/20/20 05:48 Dose: 112 mcg Documented by: Lidocaine (Lidocaine 5% Patch) 2 patch TOPICAL DAILY [facility]; Protocol Last Admin: 05/20/20 08:51 Dose: 2 patch Documented by: Loratadine (Loratadine 10 Mg Tablet) 10 mg PO DAILY [facility] Lorazepam (Lorazepam 1 Mg Tablet) 1 mg PO X1 PRN PRN Reason: ANXIETY Last Admin: 05/20/20 08:51 Dose: 1 mg Documented by: Losartan Potassium (Losartan Potassium 50 Mg Tablet) 50 mg PO DAILY [facility] Last Admin: 05/20/20 08:42 Dose: 50 mg Documented by: Methylprednisolone (Methylprednisolone Dosepak 4 Mg Box) 12 mg PO 1200 [facility]; Taper Stop: 05/25/20 04:59 Last Admin: 05/20/20 09:02 Dose: 12 mg Documented by: Metoprolol Succinate (Metoprolol(Xl)Succ 50 Mg Tablet) 50 mg PO DAILY [facility] Last Admin: 05/20/20 08:42 Dose: 50 mg Documented by: Montelukast Sodium (Montelukast 10 Mg Tablet) 10 mg PO DAILY [facility] Morphine Sulfate (Morphine 2 Mg/Ml Syringe) 2 mg IV Q3H PRN PRN PRN Reason: Pain Score 6-10 Last Admin: 05/20/20 00:31 Dose: 2 mg Documented by: Ondansetron HCl (Ondansetron 4 Mg/2 Ml Vial) 4 mg IV Q8H PRN PRN PRN Reason: NAUSEA/VOMITING Potassium Chloride (Potassium Chloride 20 Meq Tablet) 20 meq PO DAILY [facility] Last Admin: 05/20/20 11:52 Dose: 20 meq Documented by: Pramipexole Dihydrochloride (Pramipexole Di-Hcl 0.5 Mg Tablet) 0.5 mg PO QHS [facility] Last Admin: 05/19/20 22:49 Dose: 0.5 mg Documented by: Pravastatin Sodium (Pravastatin 80 Mg Tablet) 80 mg PO QHS [facility] Last Admin: 05/19/20 22:49 Dose: 80 mg Documented by: Sodium Chloride (0.9% Saline Lock 10 Ml Syringe) 10 - 40 ml IV UD PRN PRN Reason: SALINE FLUSH Last Admin: 05/20/20 14:48 Dose: 10 ml Documented by: Discharge Activity: May not drive while taking narcotic pain medications., - - Advise continued cane usage, fall precautions especially given sedative regimen usage. May resume sexual activity in: - - Avoid until clinically improved and cleared per your neursurgeon. Call your doctor if you observe: Fever of 101 or Higher, Inability to urinate, Inability to have a bowel movement, Shortness of breath, Dizziness, Fainting spells, Chest pain, Uncontrolled pain Home Medications: Medications to take at Discharge Levothyroxine [Synthroid] 112 mcg PO DAILY 06/02/16 Hydrocodone/Acetaminophen [Hydrocodone-Acetamin 7.5-325] 0.5 tab PO TID PRN 09/04/18 Cetirizine HCl [Zyrtec] 10 mg PO DAILY 08/10/19 Famotidine [Pepcid] 40 mg PO DAILY 09/03/19 Amlodipine [Norvasc] 10 mg PO DAILY 01/30/20 Ipratropium [place] 0.06% [ATROVENT NASAL SPRAY] 1 spray NASAL BID 01/30/20 Potassium Chloride [K-Dur] 20 meq PO DAILY 01/30/20 Ropinirole HCl [Requip] 1 mg PO QHS 01/30/20 Fluticasone/Vilanterol [Breo Ellipta 100-25 Mcg INH] 1 ea IH DAILY 04/22/20 Furosemide [Lasix] 40 mg PO DAILY 05/03/20 buprenorphine 10 mcg/hour weekly transdermal patch 1 patch TRANSDERMAL MO ea 05/12/20 montelukast 10 mg tablet 10 tab PO DAILY 05/12/20 olmesartan 20 mg tablet 20 ea PO DAILY 05/12/20 Metoprolol Succinate [Toprol Xl] 50 mg PO DAILY 05/19/20 Pravastatin Sodium 80 mg PO QHS 05/19/20 Gabapentin [Neurontin] 100 mg PO TIDCM 7 Days #21 cap 05/20/20 Lidocaine [Lidoderm Patch] 2 patch TOPICAL DAILY 7 Days #14 patch 05/20/20 MethylPREDNISolone DosePak [Medrol DosePak] 4 mg PO UD #1 box 05/20/20 cycloBENZAPRine HCl [Flexeril] 5 mg PO TID PRN PRN 7 Days #21 tab 05/20/20 Following Prescriptions Were Given to Patient: cycloBENZAPRine HCl [Flexeril] 5 mg PO TID PRN PRN 7 Days #21 tab PRN Reason: Back muscle strain Transmission Status: Pending to [id number] Lidocaine [Lidoderm Patch] 2 patch TOPICAL DAILY 7 Days #14 patch Transmission Status: Pending to [id number] MethylPREDNISolone DosePak [Medrol DosePak] 4 mg PO UD #1 box Transmission Status: Pending to [id number] Gabapentin [Neurontin] 100 mg PO TIDCM 7 Days #21 cap Transmission Status: Pending to [id number] Primary Care Physician: Jaime Culver Chi, MD [Primary Care Provider] - Please follow up with your Primary Care Physician in: Please follow-up within 3-5 days to review admission. Please Follow Up With: Fitz Orta, DO When: Please follow-up per Dr. Orta request, timeline per his discretion. Patient Instructions: Relieving Back Pain Disposition: Home Minutes spent on discharge:: 35 Patient Condition:: Fair Medical Necessity - Tobacco Use Smoking Status: Never smoker Meaningful Use Info Meaningful Use Diagnoses (Choose all that apply): None applicable OBSV E&M: [id number] Observation care discharge
[2020-05-20 16:02] VITALS: BP 158/82; PULSE 89; RESP 18; TEMP 36.9; O2SAT 98
--- NOTE | 2020-05-20 16:35 | CASEMGMT ---
Social Work Note SW back in to speak with pt. Pt confirms that she wishes to discharge home at this time. VENICE placed a call to Rhianna in TCU and updated her pt is stating she wants to return home. Rhianna states understanding. 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
== END 2020-05-20 16:55 | disposition home or self-care (01) ==
LOC: ED 17:31 → MS3 19:11
PROVIDERS: Emergency Provider Emergency Medicine; PCP Family Medicine Geriatric Medicine; Visit Provider Family Medicine
DX: M51.36 Other intervertebral disc degeneration, lumbar region (principal); I10 Essential (primary) hypertension; E78.5 Hyperlipidemia, unspecified; K21.9 Gastro-esophageal reflux disease without esophagitis; E03.9 Hypothyroidism, unspecified; J45.909 Unspecified asthma, uncomplicated; G25.81 Restless legs syndrome; Z87.11 Personal history of peptic ulcer disease; M48.061 Spinal stenosis, lumbar region without neurogenic claudication; Z79.899 Other long term (current) drug therapy; Z74.01 Bed confinement status; E87.1 Hypo-osmolality and hyponatremia; D72.829 Elevated white blood cell count, unspecified; G89.4 Chronic pain syndrome
CPT/HCPCS: 72148; 80053; 81001; 83735; 85025; 96372; 96374; 96375; 96376; 97162; 97166; 99218; 99284; A4216; G0378; J2405

== ENCOUNTER 2020-05-21 18:03 | Inpatient (IN) | payer MEDICARE, SELFPAY ==
[2020-05-21 18:10] VITALS: BP 166/88; PULSE 86; RESP 22; TEMP 36.2; O2SAT 96
--- NOTE | 2020-05-21 19:20 | HP.PCM_ITS ---
Problem List (1) Debility Status: Acute (2) Intractable low back pain Status: Acute (3) Lumbar spinal stenosis Status: Acute (4) Bilateral sacral insufficiency fracture with delayed healing Status: Acute (5) Hypertension Status: Chronic (6) Restless leg syndrome Status: Chronic (7) Vitamin B12 deficiency Status: Chronic (8) Allergic rhinitis Status: Chronic (9) GERD (gastroesophageal reflux disease) Status: Chronic (10) Asthma Status: Chronic (11) HLD (hyperlipidemia) Status: Chronic (12) Hypothyroidism Status: Chronic History of Present Illness Date of Admission: 05/21/20 Chief Complaint: Here for rehabilitation, strengthening, L3-4 decompression surgery, further rehabilitation afterwards. 05/19/20 The patient is a 74 year old Female with below past medical history presented to [facility] Emergency Department for back pain. Dr. Camacho managing back pain, spinal cord stimulator helpful temporarily. Patient bedbound x 4 weeks secondary to back pain. Needs admission for [facility] facility rehabilitation. 05/19/20 Admit to Hospital. PT/OT, MRI lumbosacral spine, consult Dr. Orta for low back pain. 05/20/20 MRI lumbosacral spine showed worsening lumbar spinal stenosis. Bilateral sacral ala insufficiency fractures. 05/20/20 Dr. Orta recommends L3-4 decompression surgery. 05/20/20 Patient discharged home per patient request, she may have been conf used. 05/21/20 Patient failed discharge home alone. 05/21/20 Admit to TCU with debility, here for rehabilitation, strengthening, L3- 4 decompression surgery, then further rehabilitation, prior to going home. Past Medical History Past Medical History (Chronic Problems): Chronic Problems (Last Reviewed 05/19/20 @ 20:[address] Dusty Arana DO) Hypertension (Chronic) Restless leg syndrome (Chronic) Vitamin B12 deficiency (Chronic) Allergic rhinitis (Chronic) GERD (gastroesophageal reflux disease) (Chronic) Asthma (Chronic) Benign hypertension (Chronic) HLD (hyperlipidemia) (Chronic) Hypothyroidism (Chronic) Chronic low back pain (Chronic) Seasonal allergies (Chronic) Hyponatremia (Chronic) Orthostatic hypotension (Chronic) Bilateral lower extremity edema (Chronic) Macrocytosis (Chronic) Medical History: Medical History (Last Reviewed 05/19/20 @ 20:[address] Dusty Arana DO) Asthma J45.909 B12 deficiency E53.8 Cataract H26.9 Cataracts, bilateral H26.9 GERD (gastroesophageal reflux disease) K21.9 History of colon polyps Z86.010 Hyperlipidemia E78.5 RLS (restless legs syndrome) G25.81 Chronic back pain M54.9, G89.29 HTN (hypertension) I10 Allergies clindamycin Allergy (Mild, Verified 05/19/20 16:34) rash acetaminophen [From Tylenol-Codeine #3] Adverse Reaction (Severe, Verified 05/19/20 16:34) Nausea codeine phosphate [From Tylenol-Codeine #3] Adverse Reaction (Severe, Verified 05/19/20 16:34) Nausea Home Medications: Ambulatory Orders Medication Instructions Recorded Levothyroxine [Synthroid] 112 mcg PO DAILY 06/02/16 Hydrocodone/Acetaminophen 0.5 tab PO TID PRN 09/04/18 [Hydrocodone-Acetamin 7.5-325] Cetirizine HCl [Zyrtec] 10 mg PO DAILY 08/10/19 Famotidine [Pepcid] 40 mg PO DAILY 09/03/19 Amlodipine [Norvasc] 10 mg PO DAILY 01/30/20 Ipratropium [place] 0.06% 1 spray NASAL BID 01/30/20 [ATROVENT NASAL SPRAY] Potassium Chloride [K-Dur] 20 meq PO DAILY 01/30/20 Ropinirole HCl [Requip] 1 mg PO QHS 01/30/20 Fluticasone/Vilanterol [Breo 1 ea IH DAILY 04/22/20 Ellipta 100-25 Mcg INH] Furosemide [Lasix] 40 mg PO DAILY 05/03/20 buprenorphine 10 mcg/hour weekly 1 patch TRANSDERMAL MO ea 05/12/20 transdermal patch montelukast 10 mg tablet 10 tab PO DAILY 05/12/20 olmesartan 20 mg tablet 20 ea PO DAILY 05/12/20 Metoprolol Succinate [Toprol Xl] 50 mg PO DAILY 05/19/20 Pravastatin Sodium 80 mg PO QHS 05/19/20 Gabapentin [Neurontin] 100 mg PO TIDCM 7 Days #21 cap 05/20/20 Lidocaine [Lidoderm Patch] 2 patch TOPICAL DAILY 7 Days #14 05/20/20 patch MethylPREDNISolone DosePak [Medrol 4 mg PO UD #1 box 05/20/20 DosePak] cycloBENZAPRine HCl [Flexeril] 5 mg PO TID PRN PRN 7 Days #21 tab 05/20/20 Surgical History: Surgical History (Last Reviewed 05/19/20 @ 20:[address] Dusty Arana DO) History of appendectomy Z90.49 History of bilateral carpal tunnel release Z98.890 History of carpal tunnel release Z98.890 History of colonoscopy Onset Date: ~2012 Z98.890 History of hysterectomy Z90.710 History of loop recorder Z98.890 Hx of tonsillectomy Z90.89 history of pain stimulator Surgical History: appendectomy, cataract, hysterectomy, tonsillectomy, - - Tooth extraction, Left shoulder arthroscopic surgery, bilateral carpal tunnel release, Loop recorder, spinal cord stimulator. 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 Dusty Arana DO) Mother Heart valve disorder Hypertension Heart disease Father Pneumococcal pneumonia CVA (cerebral vascular accident) Heart disease Myocardial infarction History Items: Heart Disease Paternal Family History: Family History (Last Reviewed 05/19/20 @ 20:[address] Dusty Arana DO) Mother Heart valve disorder Hypertension Heart disease Father Pneumococcal pneumonia CVA (cerebral vascular accident) Heart disease Myocardial infarction History Items: Heart Disease Review of Systems Constitutional: Denies: Chills, Fever, Weight Change HEENT: Denies: Head Aches, Sinus Congestion, Sinus Drainage Cardiovascular: Denies: Chest Pain, Palpitations Respiratory: Denies: Cough, Shortness of breath at rest, Sputum production Gastrointestinal: Denies: Abdominal Pain, Nausea, Vomiting Genitourinary: Denies: Dysuria Musculoskeletal: Denies: Joint Pain, Joint Tenderness Skin: Denies: Rash, Wounds Neurological: Denies: Numbness, Tingling, Focal weakness Psychiatric: Denies: Anxiety, Depression, Homicidal Ideations, Suicidal Ideations Hematologic/ Lymphatic: Denies: Easy Bruising, Easy Bleeding VTE Information - Inpt Only VTE Present on Admission: No VTE Mechan Device Prophylaxis: Knee High ADRY Hose VTE Pharm Prophylaxis ordered?: Yes Patient Problems: Active and Suspected Problems (Last Reviewed 05/19/20 @ 20:[address] Dusty Joshi ri, DO) Debility (Acute) Intractable low back pain (Acute) Lumbar spinal stenosis (Acute) Bilateral sacral insufficiency fracture with delayed healing (Acute) - Physical Exam Vitals/I&O's: Vital Signs Temp Pulse Resp BP Pulse Ox 97.1 F L 86 22 H 166/88 H 96 05/21/20 18:10 05/21/20 18:10 05/21/20 18:10 05/21/20 18:10 05/21/20 18:10 Oxygen Delivery Method Room Air Weight: 79.492 kg Body Mass Index (BMI) 30.0 Finger Stick Blood Glucose 135 General: Alert, Oriented x3, Cooperative HEENT: Atraumatic, PERRLA, EOMI, Normocephalic Neck: Supple, No JVD, Negative Carotid Bruits Lungs: Clear to auscultation, Normal air movement Cardiovascular: Regular rate, No murmurs Abdomen: Bowel Sounds Present, Soft, Non Tender Extremities: No edema, Capillary Refill Less than 3 Seconds Skin: No rashes, No breakdown Musculoskeletal: No Tenderness to Palpation of Joints or Extremities Neurological: Cranial nerves II-XII grossly intact Psych/Mental Status: Normal Affect, Appropriate Assessment/Plan All Active Problems (Last Reviewed 05/19/20 @ 20:[address] Dusty Arana, DO) Intractable back pain (Acute) Debility (Acute) Intractable low back pain (Acute) Lumbar spinal stenosis (Acute) Bilateral sacral insufficiency fracture with delayed healing (Acute) Traumatic ulcer of right lower extremity with fat layer exposed (Resolved) Influenza A virus subtype H1 present (Resolved) 74 year old female with below past medical history hospitalized for intractable low back pain, worsening lumbar spinal stenosis, admitted to TCU with debility, here for rehabilitation, strengthening, L3-4 decompression surgery, further rehabilitation, prior to discharge home alone. * Debility - PT/OT. * Pain - Tylenol 1000MG Q8H, Tramadol 50MG Q6H PRN pain (1-5), Oxycodone 5MG Q4H PRN pain (6-10) * Bowel - Miralax 17GM daily, Senna/colace 2 tablets BID, MOM 30ML daily PRN, Dulcolax 10MG NE daily PRN. * Adult immunization - Administer Prevnar 13, Pneumovax 23, Fluzone as appropriate. * DVT prophylaxis - Lovenox 30MG SC daily. * Allergic rhinitis - Atrovent nasal spray 1 spray each nostril BID. * GERD - Pantoprazole 40MG daily. * Asthma - Fluticasone/Salmeterol 232-14 1 puff twice daily, Singulair 10MG daily. * Hypertension - Metoprolol succinate 50MG daily, Olmesartan 20MG daily, Amlodipine 10MG daily. * Restless Leg Syndrome - Ropinirole 1MG QHS. * Hypothyroidism - Levothyroxine 100MCG daily. * Lumbar spinal stenosis - Dr. Orta to schedule L3-4 decompression surgery. * Muscle spasm - Baclofen 10MG QHS.
[2020-05-21] MEDS: oxyCODONE 5 MG Tablet PO (21:02)
[2020-05-21] MEDS: MethylPREDNISolone DosePak 4 MG BOX PO (22:26)
[2020-05-21] MEDS: Baclofen 10 MG Tablet PO (22:26)
[2020-05-21] MEDS: Acetaminophen 500 MG Tablet 1000 MG PO (22:28)
[2020-05-21] MEDS: Pramipexole Di-HCl 1 MG Tablet PO (22:28)
[2020-05-22 05:51] VITALS: BP 163/84; PULSE 91; RESP 18; TEMP 36.6; O2SAT 95
[2020-05-22] MEDS: Polyethylene Glycol 3350 17 GM PACKET PO (05:55)
[2020-05-22 05:57] VITALS: BP 163/84; PULSE 91
[2020-05-22] MEDS: Enoxaparin 30 MG/0.3 ML Syringe SC (05:57)
[2020-05-22] MEDS: Metoprolol(XL)Succ 50 MG Tablet PO (05:57)
[2020-05-22] MEDS: amLODIPine 10 MG Tablet PO (05:57)
[2020-05-22] MEDS: Losartan Potassium 50 MG Tablet PO (05:58)
[2020-05-22] MEDS: Senna/Docusate Sodium 1 Tablet 2 TABLET PO (05:58)
[2020-05-22] MEDS: Levothyroxine 100 MCG Tablet PO (05:58)
[2020-05-22] MEDS: Ipratropium Bromide 0.06% NASAL SPRAY 2 SPRAY NASAL ×2 (05:58→16:25)
[2020-05-22] MEDS: Acetaminophen 500 MG Tablet 1000 MG PO ×3 (05:58→21:21)
[2020-05-22] MEDS: Pantoprazole Sodium 40 MG Tablet PO (05:58)
[2020-05-22 06:04] LABS: Absolute Lymphocyte Count 0.83 X10^3/uL (0.83-4.51); Absolute Neutrophil Count 11.3 X10^3/uL (2.0-7.7); Basophil# 0.01 X10^3/uL; Basophil% 0.1 % (0-1); Hematocrit 36.2 % (37-47); Hemoglobin 12.1 g/dL (12.0-15.0); Lymphocyte # 0.83 X10^3/ul (4.0); Lymphocyte % 6.4 % (19-41); Mean Corp Hgb Conc 33.4 g/dL (32-36); Mean Corpuscular Volume 104.6 fL (81-99); Mean Platelet Vol. 11.2 fl (6.2-12.0); Monocyte% 4.7 % (0-10); NRBC Flagged by Analyzer 0 % (0-5); Neutrophil # 11.32 X10^3/uL (2.7-7.7); Neutrophil % 87.7 % (47-70); Platelet Count 268 K/mm3 (150-450); RBC Distribution Width CV 13.7 % (11.6-14.6); RBC Distribution Width SD 52.4 fl (35.1-43.9); Red Blood Count 3.46 M/mm3 (4.2-5.4); White Blood Count 12.9 K/mm3 (4.4-11.0)
[2020-05-22] MEDS: Albuterol 2.5 MG/3 ML VIAL.NEB. INHALATION (06:05)
[2020-05-22 06:35] LABS: Anion Gap 4 (5-15); BUN 19 mg/dL (7-18); BUN/Creat Ratio 21.3 RATIO (10-20); Calcium,Total 9.1 mg/dL (8.5-10.1); Chloride 101 mmol/L (98-107); Creatinine, Serum 0.89 mg/dL (0.55-1.02); EST Glomerular Filtration Rate 65 mL/min (>60); Est Glom Filt Rate - Afr Amer 79 mL/min (>60); Estimated Creatinine Clearance 46.44 ml/min; Glucose 179 mg/dL (74-106); Potassium 4.4 mmol/L (3.5-5.1); Sodium Level 133 mmol/L (136-145)
[2020-05-22] MEDS: Tuberculin,Purif.prot.deriv. 50 TU/ML Vial 5 ML ID (09:06)
[2020-05-22] MEDS: oxyCODONE 5 MG Tablet PO ×3 (09:23→21:20)
--- NOTE | 2020-05-22 11:54 | CASEMGMT ---
Social Work Discussed code status with pt. Pt confirmed wishes are full code. MOLST form reviewed, communication given to dr, and placed in chart. 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
[2020-05-22 13:47] VITALS: BP 157/67; PULSE 83; RESP 16; TEMP 36.6; O2SAT 98
--- NOTE | 2020-05-22 14:38 | PCM.PN.RX ---
<David Verdini - Last Filed: 05/22/20 14:38> Progress Note - Pharmacy Subjective: TCU Admission Objective: Allergies clindamycin Allergy (Mild, Verified 05/19/20 16:34) rash acetaminophen [From Tylenol-Codeine #3] Adverse Reaction (Severe, Verified 05/19/20 16:34) Nausea codeine phosphate [From Tylenol-Codeine #3] Adverse Reaction (Severe, Verified 05/19/20 16:34) Nausea Current Medications Generic Name Dose Route Start Last Admin Trade Name Freq PRN Reason Stop Dose Admin Acetaminophen 1,000 mg 05/21/20 22:00 05/22/20 13:39 Acetaminophen 500 Mg Tablet PO 1,000 mg Q8 DICK Administration Albuterol Sulfate 2.5 mg 05/21/20 19:35 05/22/20 06:05 Albuterol 2.5 Mg/3 Ml Vial.Neb. INHALATION 2.5 mg Q2H PRN PRN Administration WHEEZING Amlodipine Besylate 10 mg 05/22/20 06:00 05/22/20 05:57 Amlodipine 10 Mg Tablet PO 10 mg DAILY DICK Administration Baclofen 10 mg 05/21/20 22:00 05/21/20 22:26 Baclofen 10 Mg Tablet PO 10 mg QHS DICK Administration Bisacodyl 10 mg 05/21/20 19:40 Bisacodyl 10 Mg Suppository RECTAL DAILY PRN Constipation Enoxaparin Sodium 30 mg 05/22/20 06:00 05/22/20 05:57 Enoxaparin 30 Mg/0.3 Ml Syringe SC 30 mg DAILY@0600 DICK Administration Ipratropium [place] 2 spray 05/22/20 06:00 05/22/20 05:58 Ipratropium [place] 0.06% Nasal [place] NASAL 2 spray BID DICK Administration Levothyroxine Sodium 100 mcg 05/22/20 06:00 05/22/20 05:58 Levothyroxine 100 Mcg Tablet PO 100 mcg DAILY@0600 DICK Administration Losartan Potassium 50 mg 05/22/20 06:00 05/22/20 05:58 Losartan Potassium 50 Mg Tablet PO 50 mg DAILY DICK Administration Magnesium Hydroxide 30 ml 05/21/20 19:39 Magnesium Hydroxide 30 Ml Udc PO DAILY PRN Constipation Metoprolol Succinate 50 mg 05/22/20 06:00 05/22/20 05:57 Metoprolol(Xl)Succ 50 Mg Tablet PO 50 mg DAILY DICK Administration Montelukast Sodium 10 mg 05/22/20 17:00 Montelukast 10 Mg Tablet PO DAILY@1700 [facility] Multi-Ingredient Cream 1 applic 05/22/20 06:00 05/22/20 06:00 Mineral Oil/Petrolatum,White Jar TOPICAL 1 applicatio DAILY DICK Administration Protocol Nutritional Formula (Lactose Free) 120 ml 05/22/20 07:45 05/22/20 13:41 Ensure Enlive 120 Ml Liquid PO 120 ml TIDCM [facility] Administration Oxycodone HCl 5 mg 05/21/20 19:39 05/22/20 09:23 Oxycodone 5 Mg Tablet PO 5 mg Q4H PRN PRN Administration Pain Score 6-10 Pantoprazole Sodium 40 mg 05/22/20 06:00 05/22/20 05:58 Pantoprazole Sodium 40 Mg Tablet PO 40 mg DAILY DICK Administration Polyethylene Glycol 17 gm 05/22/20 06:00 05/22/20 05:55 Polyethylene Glycol 3350 17 Gm Packet PO 17 gm DAILY [facility] Administration Pramipexole Dihydrochloride 1 mg 05/21/20 22:00 05/21/20 22:28 Pramipexole Di-Hcl 1 Mg Tablet PO 1 mg QHS [facility] Administration Fluticasone/Salmeterol 1 puff 05/22/20 18:00 Fluticasone/Salmeterol 232-14 Inhaler IH BID DICK Senna/Docusate Sodium 2 tablet 05/22/20 06:00 05/22/20 05:58 Senna/Docusate Sodium 1 Tablet PO 2 tablet BID DICK Administration Simethicone 80 mg 05/22/20 08:45 05/22/20 13:39 Simethicone 80 Mg Tablet PO 80 mg TIDPC [facility] Administration Tramadol HCl 50 mg 05/21/20 19:38 Tramadol 50 Mg Tablet PO Q6H PRN PRN Pain Score 1-5 Tuberculin PPD 5 tu 05/29/20 10:00 Tuberculin,Purif.Prot.Deriv. 50 Tu/Ml Vial ID 05/29/20 10:01 X1 ONE Problem List (Last Reviewed 05/19/20 @ 20:[address] Dusty Arana, DO) Debility (Acute) Intractable low back pain (Acute) Lumbar spinal stenosis (Acute) Bilateral sacral insufficiency fracture with delayed healing (Acute) Hypertension (Chronic) Restless leg syndrome (Chronic) Vitamin B12 deficiency (Chronic) Allergic rhinitis (Chronic) GERD (gastroesophageal reflux disease) (Chronic) Asthma (Chronic) HLD (hyperlipidemia) (Chronic) Hypothyroidism (Chronic) Vital Signs Temp Pulse Resp BP Pulse Ox 97.8 F 83 16 157/67 H 98 05/22/20 13:47 05/22/20 13:47 05/22/20 13:47 05/22/20 13:47 05/22/20 13:47 Oxygen Delivery Method Room Air Weight: 79.492 kg Body Mass Index (BMI) 30.0 Finger Stick Blood Glucose 135 Sodium 133 mmol/L (136-145) L 05/22/20 05:08 Potassium 4.4 mmol/L (3.5-5.1) 05/22/20 05:08 Chloride 101 mmol/L (98-107) 05/22/20 05:08 Carbon Dioxide 28.0 mmol/L (21.0-32.0) 05/22/20 05:08 Anion Gap 4 (5-15) L 05/22/20 05:08 BUN 19 mg/dL (7-18) H 05/22/20 05:08 Creatinine 0.89 mg/dL (0.55-1.02) 05/22/20 05:08 Est GFR (MDRD) Af Amer 79 mL/min (>60) 05/22/20 05:08 Est GFR (MDRD) Non-Af 65 mL/min (>60) 05/22/20 05:08 BUN/Creatinine Ratio 21.3 RATIO (10-20) H 05/22/20 05:08 Glucose 179 mg/dL (74-106) H 05/22/20 05:08 Assessment/Plan: 1. Pain: acetaminophen 1000mg PO Q8H, tramadol 50mg PO Q6H PRN pain 1-5/10 and oxycodone 5mg PO Q4H PRN pain 6-10/10. Please continue to monitor for increased pain and PRN usage. 2. DVT prophylaxis: enoxaparin 40mg SC daily. Please continue to monitor for S/S of bleeding/DVT, hemoglobin (last 12.1g/dL), platelets (last 268,000), and renal function (dose increased due to improved CrCl of 46mL/min). 3. Hypertension: metoprolol succinate 50mg PO daily, losartan 50mg PO daily, and amlodipine 10mg PO daily. Please continue to monitor renal function, BP (last 157/67), HR (last 83), and swelling. 4. Allergic rhinits: ipratropium nasal spray 2 sprays in each nostril BID. Please continue to monitor for allergy symptoms. 5. GERD: pantoprazole 40mg PO daily. Please continue to monitor for S/S of GERD. 6. Asthma: fluticasone/salmeterol 232/14mcg 1 inhalation BID, montelukast 10mg PO daily, and albuterol nebulized solution 2.5mg Q2H PRN wheezing. Please rinse out mouth with water and spit after giving each dose of Advair to prevent thrush. Please continue to monitor for S/S of asthma and PRN usage. 7. Restless leg syndrome: pramipexole 1mg PO QHS. Please continue to monitor for S/S of restless legs. 8. Hypothyroidism: levothyroxine 100mcg PO daily. Please continue to monitor for S/S of hypo/hyperthyroidism and TSH levels. 9. Muscle spasms: baclofen 10mg PO QHS. Please continue to monitor for muscle spasms and drowsiness. Psychotropic Medications: None Unnecessary Medications: None Bowel Regimen: Miralax 17gm PO daily, senna/docusate 2T PO BID, MOM 30mL PO daily PRN constipation, and bisacodyl 10mg UT daily PRN constipation. Please continue to monitor for constipation, diarrhea, and PRN usage. Date of Note:: 05/22/20 - Provider Comments Provider responsibility: Provider responsible to enter orders to implement recommendations <Jaime Culver Chi - Last Filed: 05/22/20 17:49> Progress Note - Pharmacy Subjective: [] Objective: Allergies clindamycin Allergy (Mild, Verified 05/19/20 16:34) rash acetaminophen [From Tylenol-Codeine #3] Adverse Reaction (Severe, Verified 05/19/20 16:34) Nausea codeine phosphate [From Tylenol-Codeine #3] Adverse Reaction (Severe, Verified 05/19/20 16:34) Nausea Current Medications Generic Name Dose Route Start Last Admin Trade Name Freq PRN Reason Stop Dose Admin Acetaminophen 1,000 mg 05/21/20 22:00 05/22/20 13:39 Acetaminophen 500 Mg Tablet PO 1,000 mg Q8 DICK Administration Albuterol Sulfate 2.5 mg 05/21/20 19:35 05/22/20 06:05 Albuterol 2.5 Mg/3 Ml Vial.Neb. INHALATION 2.5 mg Q2H PRN PRN Administration WHEEZING Amlodipine Besylate 10 mg 05/22/20 06:00 05/22/20 05:57 Amlodipine 10 Mg Tablet PO 10 mg DAILY DICK Administration Baclofen 10 mg 05/21/20 22:00 05/21/20 22:26 Baclofen 10 Mg Tablet PO 10 mg QHS DICK Administration Bisacodyl 10 mg 05/21/20 19:40 Bisacodyl 10 Mg Suppository RECTAL DAILY PRN Constipation Enoxaparin Sodium 40 mg 05/23/20 06:00 Enoxaparin 40 Mg/0.4 Ml Syringe SC DAILY@0600 [facility] Ipratropium [place] 2 spray 05/22/20 06:00 05/22/20 16:25 Ipratropium [place] 0.06% Nasal [place] NASAL 2 spray BID DICK Administration Levothyroxine Sodium 100 mcg 05/22/20 06:00 05/22/20 05:58 Levothyroxine 100 Mcg Tablet PO 100 mcg DAILY@0600 [facility] Administration Losartan Potassium 50 mg 05/22/20 06:00 05/22/20 05:58 Losartan Potassium 50 Mg Tablet PO 50 mg DAILY DICK Administration Magnesium Hydroxide 30 ml 05/21/20 19:39 Magnesium Hydroxide 30 Ml Udc PO DAILY PRN Constipation Metoprolol Succinate 50 mg 05/22/20 06:00 05/22/20 05:57 Metoprolol(Xl)Succ 50 Mg Tablet PO 50 mg DAILY DICK Administration Montelukast Sodium 10 mg 05/22/20 17:00 05/22/20 16:26 Montelukast 10 Mg Tablet PO 10 mg DAILY@1700 [facility] Administration Multi-Ingredient Cream 1 applic 05/22/20 06:00 05/22/20 06:00 Mineral Oil/Petrolatum,White Jar TOPICAL 1 applicatio DAILY DICK Administration Protocol Nutritional Formula (Lactose Free) 120 ml 05/22/20 07:45 05/22/20 16:29 Ensure Enlive 120 Ml Liquid PO 120 ml TIDCM DICK Administration Oxycodone HCl 5 mg 05/21/20 19:39 05/22/20 16:23 Oxycodone 5 Mg Tablet PO 5 mg Q4H PRN PRN Administration Pain Score 6-10 Pantoprazole Sodium 40 mg 05/22/20 06:00 05/22/20 05:58 Pantoprazole Sodium 40 Mg Tablet PO 40 mg DAILY DICK Administration Polyethylene Glycol 17 gm 05/22/20 06:00 05/22/20 05:55 Polyethylene Glycol 3350 17 Gm Packet PO 17 gm DAILY DICK Administration Pramipexole Dihydrochloride 1 mg 05/21/20 22:00 05/21/20 22:28 Pramipexole Di-Hcl 1 Mg Tablet PO 1 mg QHS DICK Administration Fluticasone/Salmeterol 1 puff 05/22/20 18:00 05/22/20 16:26 Fluticasone/Salmeterol 232-14 Inhaler IH 1 puff BID DICK Administration Senna/Docusate Sodium 2 tablet 05/22/20 06:00 05/22/20 16:24 Senna/Docusate Sodium 1 Tablet PO Not Given BID DICK Simethicone 80 mg 05/22/20 08:45 05/22/20 16:26 Simethicone 80 Mg Tablet PO 80 mg TIDPC DICK Administration Tramadol HCl 50 mg 05/21/20 19:38 Tramadol 50 Mg Tablet PO Q6H PRN PRN Pain Score 1-5 Tuberculin PPD 5 tu 05/29/20 10:00 Tuberculin,Purif.Prot.Deriv. 50 Tu/Ml Vial ID 05/29/20 10:01 X1 ONE Problem List (Last Reviewed 05/19/20 @ 20:[address] Dusty Arana, DO) Debility (Acute) Intractable low back pain (Acute) Lumbar spinal stenosis (Acute) Bilateral sacral insufficiency fracture with delayed healing (Acute) Hypertension (Chronic) Restless leg syndrome (Chronic) Vitamin B12 deficiency (Chronic) Allergic rhinitis (Chronic) GERD (gastroesophageal reflux disease) (Chronic) Asthma (Chronic) HLD (hyperlipidemia) (Chronic) Hypothyroidism (Chronic) Vital Signs Temp Pulse Resp BP Pulse Ox 97.8 F 83 16 157/67 H 98 05/22/20 13:47 05/22/20 13:47 05/22/20 13:47 05/22/20 13:47 05/22/20 13:47 Oxygen Delivery Method Room Air Weight: 79.5 kg Body Mass Index (BMI) 30.0 Finger Stick Blood Glucose 135 Sodium 133 mmol/L (136-145) L 05/22/20 05:08 Potassium 4.4 mmol/L (3.5-5.1) 05/22/20 05:08 Chloride 101 mmol/L (98-107) 05/22/20 05:08 Carbon Dioxide 28.0 mmol/L (21.0-32.0) 05/22/20 05:08 Anion Gap 4 (5-15) L 05/22/20 05:08 BUN 19 mg/dL (7-18) H 05/22/20 05:08 Creatinine 0.89 mg/dL (0.55-1.02) 05/22/20 05:08 Est GFR (MDRD) Af Amer 79 mL/min (>60) 05/22/20 05:08 Est GFR (MDRD) Non-Af 65 mL/min (>60) 05/22/20 05:08 BUN/Creatinine Ratio 21.3 RATIO (10-20) H 05/22/20 05:08 Glucose 179 mg/dL (74-106) H 05/22/20 05:08 Assessment/Plan: Psychotropic Medications: Unnecessary Medications: Bowel Regimen: - Provider Comments Provider responsibility: Provider responsible to enter orders to implement recommendations Provider Comments to Recommendations by Pharmacy: Agree
--- NOTE | 2020-05-22 15:08 | NURSING ---
Talked with pt's daughter October about bringing in dentures, glasses and some clothing, daughter also said she would bring in remote for spinal stimulator
[2020-05-22] MEDS: Fluticasone/Salmeterol 232-14 Inhaler 1 PUFF IH (16:26)
[2020-05-22] MEDS: Montelukast 10 MG Tablet PO (16:26)
[2020-05-22] MEDS: Baclofen 10 MG Tablet PO (21:21)
[2020-05-22] MEDS: Pramipexole Di-HCl 1 MG Tablet PO (21:22)
--- NOTE | 2020-05-22 22:27 | NURSING ---
Back and upper chest area red and slightly warm to touch, pt states has sensitive skin and has rashes occasionally. states will have daughter bring her own gowns from home, tc to housekeeping to inquire if we had linen for sensitive skin, reported we do not
--- NOTE | 2020-05-23 03:22 | NURSING ---
Noted Bupranorphine 10 mcg patch to right shoulder, pt states it is for pain and this is my 3rd one, i change it every tuesday message left for Dr Culver
[2020-05-23 06:40] VITALS: BP 201/93; PULSE 82; RESP 17; TEMP 36.6
[2020-05-23] MEDS: oxyCODONE 5 MG Tablet PO ×4 (06:44→22:24)
[2020-05-23] MEDS: Fluticasone/Salmeterol 232-14 Inhaler 1 PUFF IH ×2 (06:46→17:11)
[2020-05-23] MEDS: Ipratropium Bromide 0.06% NASAL SPRAY 2 SPRAY NASAL ×2 (06:46→17:11)
[2020-05-23] MEDS: Enoxaparin 40 MG/0.4 ML Syringe SC (06:47)
[2020-05-23 06:48] VITALS: BP 201/93; PULSE 82
[2020-05-23] MEDS: Levothyroxine 100 MCG Tablet PO (06:48)
[2020-05-23] MEDS: Metoprolol(XL)Succ 50 MG Tablet PO (06:48)
[2020-05-23] MEDS: amLODIPine 10 MG Tablet PO (06:48)
[2020-05-23] MEDS: Pantoprazole Sodium 40 MG Tablet PO (06:48)
[2020-05-23] MEDS: Acetaminophen 500 MG Tablet 1000 MG PO ×3 (06:48→22:13)
[2020-05-23] MEDS: Losartan Potassium 50 MG Tablet PO (06:49)
[2020-05-23 08:34] VITALS: BP 152/76; PULSE 87
[2020-05-23] MEDS: hydrALAZINE 10 MG Tablet PO (08:34)
[2020-05-23 08:37] VITALS: BP 152/76; PULSE 87
--- NOTE | 2020-05-23 09:56 | NURSING ---
Butrans patch removed from LT shoulder and a duragesic patch placed on RT upper arm. wasted butrans patch in RX destroyer, witnessed by ANITA Reese.
[2020-05-23 13:42] VITALS: BP 163/75; PULSE 93; RESP 17; TEMP 36.4; O2SAT 96
[2020-05-23 13:45] VITALS: PULSE 96; RESP 18; O2SAT 97
--- NOTE | 2020-05-23 15:45 | NURSING ---
this nurse caught pt up walking in room. explained to pt about using the call light if need any thing. pt stated she under stood. therapy did state they will allow pt to sit on side of bed on own. reported to rn
--- NOTE | 2020-05-23 15:54 | NURSING ---
Resident and daughter, October, notified of staff testing positive for COVID.
[2020-05-23] MEDS: Montelukast 10 MG Tablet PO (17:11)
[2020-05-23] MEDS: Baclofen 10 MG Tablet PO (22:14)
[2020-05-23] MEDS: Pramipexole Di-HCl 1 MG Tablet PO (22:14)
[2020-05-24 06:23] VITALS: BP 161/80; PULSE 80; RESP 16; TEMP 36; O2SAT 97
[2020-05-24] MEDS: Enoxaparin 40 MG/0.4 ML Syringe SC (06:26)
[2020-05-24] MEDS: Fluticasone/Salmeterol 232-14 Inhaler 1 PUFF IH ×2 (06:26→17:30)
[2020-05-24 06:27] VITALS: BP 161/80; PULSE 80
[2020-05-24] MEDS: Pantoprazole Sodium 40 MG Tablet PO (06:27)
[2020-05-24] MEDS: Levothyroxine 100 MCG Tablet PO (06:27)
[2020-05-24] MEDS: Losartan Potassium 50 MG Tablet PO (06:27)
[2020-05-24] MEDS: Acetaminophen 500 MG Tablet 1000 MG PO ×3 (06:27→21:01)
[2020-05-24] MEDS: Metoprolol(XL)Succ 50 MG Tablet PO (06:27)
[2020-05-24] MEDS: amLODIPine 10 MG Tablet PO (06:28)
[2020-05-24] MEDS: Ipratropium Bromide 0.06% NASAL SPRAY 2 SPRAY NASAL ×2 (06:29→09:00)
[2020-05-24] MEDS: oxyCODONE 5 MG Tablet PO ×2 (13:17→19:36)
[2020-05-24 16:20] VITALS: BP 144/80; PULSE 89; RESP 20; TEMP 36.4; O2SAT 97
[2020-05-24] MEDS: Montelukast 10 MG Tablet PO (17:35)
[2020-05-24] MEDS: Pramipexole Di-HCl 1 MG Tablet PO (21:01)
[2020-05-24] MEDS: Baclofen 10 MG Tablet PO (21:01)
[2020-05-25] VITALS (7 sets, daily range): BP systolic 137–183; BP diastolic 77–86; PULSE 88–92; RESP 16–18; TEMP 36.1–36.6; O2SAT 93–97
[2020-05-25] MEDS: oxyCODONE 5 MG Tablet PO ×4 (02:31→21:28)
[2020-05-25] MEDS: Ipratropium Bromide 0.06% NASAL SPRAY 2 SPRAY NASAL ×2 (02:32→17:25)
[2020-05-25] MEDS: Albuterol 2.5 MG/3 ML VIAL.NEB. INHALATION ×2 (02:43→21:40)
[2020-05-25] MEDS: Enoxaparin 40 MG/0.4 ML Syringe SC (06:39)
[2020-05-25] MEDS: Fluticasone/Salmeterol 232-14 Inhaler 1 PUFF IH ×2 (06:39→17:25)
[2020-05-25] MEDS: Ondansetron ODT 4 MG Tablet PO (06:53)
--- NOTE | 2020-05-25 06:56 | NURSING ---
0627- patient c/o nausea. eating saltines and gilson rona. unable to take AM medications at this time. Dr. Culver made aware and new orders received for zofran x1. Zofran ODT administered and pt immediately had a medium emesis. Pill observed in emesis. Pharmacy notified and new tablet sent to floor and administered (see MAR).
[2020-05-25] MEDS: amLODIPine 10 MG Tablet PO (07:57)
[2020-05-25] MEDS: Pantoprazole Sodium 40 MG Tablet PO (07:59)
[2020-05-25] MEDS: Levothyroxine 100 MCG Tablet PO (07:59)
[2020-05-25] MEDS: Metoprolol(XL)Succ 50 MG Tablet PO (08:01)
[2020-05-25] MEDS: Losartan Potassium 50 MG Tablet PO (08:01)
[2020-05-25] MEDS: Acetaminophen 500 MG Tablet 1000 MG PO ×3 (08:02→21:30)
[2020-05-25] MEDS: Montelukast 10 MG Tablet PO (17:25)
[2020-05-25] MEDS: Senna/Docusate Sodium 1 Tablet 2 TABLET PO (17:26)
[2020-05-25] MEDS: Pramipexole Di-HCl 1 MG Tablet PO (21:30)
[2020-05-25] MEDS: Baclofen 10 MG Tablet PO (21:30)
--- NOTE | 2020-05-26 01:00 | NURSING ---
Pt c/o of pain
[2020-05-26 03:11] VITALS: BP 169/98; PULSE 96; RESP 18; TEMP 36.2; O2SAT 95
[2020-05-26] MEDS: Ondansetron ODT 4 MG Tablet PO (06:04)
[2020-05-26] MEDS: Ipratropium Bromide 0.06% NASAL SPRAY 2 SPRAY NASAL ×2 (06:04→17:06)
[2020-05-26] MEDS: Fluticasone/Salmeterol 232-14 Inhaler 1 PUFF IH ×2 (06:06→17:06)
[2020-05-26] MEDS: Enoxaparin 40 MG/0.4 ML Syringe SC (06:07)
[2020-05-26] MEDS: Pantoprazole Sodium 40 MG Tablet PO ×2 (06:09→08:22)
[2020-05-26] MEDS: Levothyroxine 100 MCG Tablet PO (06:09)
[2020-05-26 06:40] VITALS: PULSE 89; RESP 16
[2020-05-26] MEDS: Albuterol 2.5 MG/3 ML VIAL.NEB. INHALATION (06:40)
[2020-05-26] MEDS: Polyethylene Glycol 3350 17 GM PACKET PO (08:13)
[2020-05-26 08:14] VITALS: PULSE 106
[2020-05-26] MEDS: Metoprolol(XL)Succ 50 MG Tablet PO (08:14)
[2020-05-26] MEDS: amLODIPine 10 MG Tablet PO (08:14)
[2020-05-26] MEDS: Senna/Docusate Sodium 1 Tablet 2 TABLET PO ×2 (08:15→17:07)
[2020-05-26] MEDS: Acetaminophen 500 MG Tablet 1000 MG PO ×3 (08:16→20:40)
[2020-05-26] MEDS: Losartan Potassium 50 MG Tablet PO (08:22)
[2020-05-26] MEDS: Loratadine 10 MG Tablet PO (10:00)
--- NOTE | 2020-05-26 10:11 | NURSING ---
pt c/o n/v & emesis qAMx3 days. stuffiness, says she gets allergy shots 2x week. dr parra updated, new order for claritin. New duragesic patch applied to LT upper arm.
[2020-05-26] MEDS: oxyCODONE 5 MG Tablet PO ×2 (13:00→14:18)
[2020-05-26 13:03] VITALS: BP 162/86; PULSE 101; RESP 16; TEMP 36.1; O2SAT 96
--- NOTE | 2020-05-26 13:30 | NURSING ---
Pt c/o of pain BP 162/86 pulse 101. Pt received PRN 5 mg oxyir Pt had no pain relief. Dr. Culver called and increased Oxyir to 10mg gave pt another 5 mg. Pt states she has relief with the Oxyir but it doesn't last long. Retook Pt BP 152/78. Will continue to monitor. Call light within reach.
[2020-05-26 14:04] VITALS: BP 152/78; PULSE 91
[2020-05-26] MEDS: Montelukast 10 MG Tablet PO (17:07)
[2020-05-26] MEDS: Baclofen 10 MG Tablet PO (20:39)
[2020-05-26] MEDS: Pramipexole Di-HCl 1 MG Tablet PO (20:41)
[2020-05-27] MEDS: oxyCODONE 5 MG Tablet 10 MG PO ×3 (02:19→20:40)
[2020-05-27 02:22] VITALS: BP 174/79; PULSE 80; RESP 18; TEMP 36.6; O2SAT 96
--- NOTE | 2020-05-27 02:24 | NURSING ---
Pain Duragesic noted to left deltoid.
[2020-05-27 02:27] VITALS: PULSE 90; RESP 16
[2020-05-27] MEDS: Albuterol 2.5 MG/3 ML VIAL.NEB. INHALATION (02:27)
[2020-05-27] MEDS: Loratadine 10 MG Tablet PO (06:14)
[2020-05-27] MEDS: Levothyroxine 100 MCG Tablet PO (06:14)
[2020-05-27] MEDS: Ipratropium Bromide 0.06% NASAL SPRAY 2 SPRAY NASAL ×2 (06:14→17:41)
[2020-05-27] MEDS: Fluticasone/Salmeterol 232-14 Inhaler 1 PUFF IH ×2 (06:15→17:39)
[2020-05-27] MEDS: Enoxaparin 40 MG/0.4 ML Syringe SC (06:15)
[2020-05-27] MEDS: Polyethylene Glycol 3350 17 GM PACKET PO (08:23)
[2020-05-27] MEDS: Senna/Docusate Sodium 1 Tablet 2 TABLET PO ×2 (08:24→17:39)
[2020-05-27] MEDS: Pantoprazole Sodium 40 MG Tablet PO (08:24)
[2020-05-27] MEDS: Acetaminophen 500 MG Tablet 1000 MG PO ×3 (08:24→20:41)
[2020-05-27 08:25] VITALS: PULSE 64
[2020-05-27] MEDS: Metoprolol(XL)Succ 50 MG Tablet PO (08:25)
[2020-05-27] MEDS: amLODIPine 10 MG Tablet PO (08:25)
[2020-05-27] MEDS: Losartan Potassium 50 MG Tablet PO (08:30)
[2020-05-27 13:15] VITALS: PULSE 92; RESP 18; O2SAT 97
[2020-05-27 13:36] VITALS: BP 139/68; PULSE 87; RESP 16; TEMP 36.4; O2SAT 95
--- NOTE | 2020-05-27 14:36 | NURSING ---
duragesic intact to LT upper arm
[2020-05-27] MEDS: Montelukast 10 MG Tablet PO (17:44)
[2020-05-27] MEDS: Baclofen 10 MG Tablet PO (20:42)
[2020-05-27] MEDS: Pramipexole Di-HCl 1 MG Tablet PO (21:50)
--- NOTE | 2020-05-27 21:52 | NURSING ---
Duragesic patch intact to lt deltoid.
[2020-05-28 05:55] VITALS: BP 185/88; PULSE 88; RESP 18; TEMP 36.1; O2SAT 98
[2020-05-28] MEDS: Enoxaparin 40 MG/0.4 ML Syringe SC (06:00)
[2020-05-28] MEDS: Fluticasone/Salmeterol 232-14 Inhaler 1 PUFF IH ×2 (06:01→18:13)
[2020-05-28] MEDS: Loratadine 10 MG Tablet PO (06:01)
[2020-05-28] MEDS: Acetaminophen 500 MG Tablet 1000 MG PO ×3 (06:01→21:30)
[2020-05-28] MEDS: Levothyroxine 100 MCG Tablet PO (06:01)
[2020-05-28] MEDS: oxyCODONE 5 MG Tablet 10 MG PO ×3 (06:02→23:38)
[2020-05-28] MEDS: Ipratropium Bromide 0.06% NASAL SPRAY 2 SPRAY NASAL ×2 (06:03→18:13)
[2020-05-28 08:50] VITALS: BP 130/66; PULSE 84
[2020-05-28] MEDS: Pantoprazole Sodium 40 MG Tablet PO (08:50)
[2020-05-28] MEDS: Metoprolol(XL)Succ 50 MG Tablet PO (08:50)
[2020-05-28] MEDS: Losartan Potassium 50 MG Tablet PO (08:50)
[2020-05-28] MEDS: amLODIPine 10 MG Tablet PO (08:51)
[2020-05-28 08:52] VITALS: BP 130/66; PULSE 84
--- NOTE | 2020-05-28 11:20 | CASEMGMT ---
Social Work IDT met with patient and dtr via conference call for care plan meeting. Discussed patient's progress in therapy. Pt is SBA for bed mobility, tx, ambulating with FWW 60-80ft, using 2# wts for LE exercises. Pt is supervised for bathing/dressing, standing at the sink for oral care and grooming, supervised for toileting. Pt is on a regular, mech soft diet, receiving ensure but will discontinue due to weight gain, and pt's appetite has improved. Pt is out of isolation 06/04, pain meds were increased. Explained [employer] insurance with [employer] 05/27, and continued stay is not guaranteed. Pt will return home alone with support from dtr. Pt has f/u appt with Dr. Orta this date for pre-op surgery that is scheduled for 06/12. C.M. from insurance is inquiring about estimated DC 05/31. Dtr and pt would like to see pt remain in TCU until surgery for pt to return for therapy after surgery. Explained insurance will not approve that time for surgery 06/12, however, encouraged pt to explain situation to Dr. Orta and request to schedule surgery sooner - possibly 06/02. Pt agreeable and would prefer that plan. When pt does DC, pt requesting FWW and continued therapy, HHC vs OP. Dtr to purchase extended tub bench and hip kit. SW to assist with referrals. Will continue to follow. Patience Messer, LARRY CAR OPERATOR SLUBBER OPERATOR
--- NOTE | 2020-05-28 12:40 | NURSING ---
RANDYNPORTED VIA W/C TO 'S OFFICE FOR 1330 APPOINTMENT.
--- NOTE | 2020-05-28 14:48 | CASEMGMT ---
Social Work Patient returned from 's appt and surgery rescheduled due to 06/17 d/t being out of town. Notified insurance and they issued LCD 05/30, DC 05/31. Notified pt whom agrees. Pt would like outpatient therapy at [facility]. Dtr can transport. Referral made for PT/OT. Referred to [facility] for FWW. Plan: DC home 05/31 with [facility] PT/OT, [employer] - FWW Patience Messer, FERCHO MORANW
[2020-05-28 16:28] VITALS: BP 135/70; PULSE 79; RESP 16; TEMP 35.8; O2SAT 98
[2020-05-28] MEDS: Montelukast 10 MG Tablet PO (16:55)
[2020-05-28] MEDS: Senna/Docusate Sodium 1 Tablet 2 TABLET PO (18:12)
--- NOTE | 2020-05-28 19:38 | DCINST_ITS ---
- Discharge Diagnoses Current Active Problems: Current Active and Chronic Problems (Last Reviewed 05/19/20 @ 20:[address] Dusty Arana, DO) Debility (Acute) Intractable low back pain (Acute) Lumbar spinal stenosis (Acute) Bilateral sacral insufficiency fracture with delayed healing (Acute) Hypertension (Chronic) Restless leg syndrome (Chronic) Vitamin B12 deficiency (Chronic) Allergic rhinitis (Chronic) GERD (gastroesophageal reflux disease) (Chronic) Asthma (Chronic) HLD (hyperlipidemia) (Chronic) Hypothyroidism (Chronic) You will use the following diet at home:: No restrictions, Regular Your food should be the consistency of: Regular Your liquids should be the consistency of: Regular/Thin Discharge Activity: Return to Normal Activity, May Shower, Use Walker Weight Bearing Status: Weight bearing as tolerated Call your doctor if you observe: Fever of 101 or Higher, Inability to urinate, Inability to have a bowel movement, Shortness of breath, Chest pain, Uncontrolled pain Allergies/Adverse Reactions: Allergies clindamycin Allergy (Mild, Verified 05/28/20 13:25) rash acetaminophen [From Tylenol-Codeine #3] Adverse Reaction (Severe, Verified 05/28/20 13:25) Nausea codeine phosphate [From Tylenol-Codeine #3] Adverse Reaction (Severe, Verified 05/28/20 13:25) Nausea Medications to take at Discharge Hydrocodone/Acetaminophen [Hydrocodone-Acetamin 7.5-325] 0.5 tab PO TID PRN 09/04/18 Cetirizine HCl [Zyrtec] 10 mg PO DAILY 08/10/19 Amlodipine [Norvasc] 10 mg PO DAILY 01/30/20 Ipratropium [place] 0.06% [ATROVENT NASAL SPRAY] 1 spray NASAL BID 01/30/20 Ropinirole HCl [Requip] 1 mg PO QHS 01/30/20 Fluticasone/Vilanterol [Breo Ellipta 100-25 Mcg INH] 1 ea IH DAILY 04/22/20 buprenorphine 10 mcg/hour weekly transdermal patch 1 patch TRANSDERMAL MO ea 05/12/20 montelukast 10 mg tablet 10 tab PO DAILY 05/12/20 olmesartan 20 mg tablet 20 ea PO DAILY 05/12/20 Metoprolol Succinate [Toprol Xl] 50 mg PO DAILY 05/19/20 Acetaminophen [Tylenol] 1,000 mg PO Q8@0800,1400,2200 tablet 05/28/20 Amlodipine [Norvasc] 10 mg PO DAILY@0800 tablet 05/28/20 Baclofen [Lioresal] 10 mg PO QHS #30 tab 05/28/20 Ipratropium [place] 0.06% [ATROVENT NASAL SPRAY] 2 spray NASAL BID nasal.sry 05/28/20 Levothyroxine [Synthroid] 100 mcg PO DAILY@0600 tablet 05/28/20 Metoprolol(XL)Succ [Toprol Xl (Beta Altaf)] 50 mg PO DAILY@0800 tablet 05/28/20 Mineral Oil/Petrolatum,White [Eucerin] 1 applic TOPICAL DAILY jar 05/28/20 Montelukast [Singulair] 10 mg PO DAILY@1700 tablet 05/28/20 Pantoprazole Sodium [Protonix] 40 mg PO DAILY@0800 #30 tab 05/28/20 The following prescriptions were given: Baclofen [Lioresal] 10 mg PO QHS #30 tab Transmission Status: Pending to [facility]/pharmacy #[id number] Pantoprazole Sodium [Protonix] 40 mg PO DAILY@0800 #30 tab Transmission Status: Pending to [facility]/pharmacy #[id number] Primary Care Physician: Jaime Culver Chi, MD [Primary Care Provider] - Please follow up with your Primary Care Physician in: 1 week. Test Results: Test results from this visit will be discussed in further detail at your follow- up appointment, if applicable. Please Follow Up With: Dr. Orta When: Pre-op appointment Please Follow Up With: Dr. Orta When: Pre op paperwork Proposed Discharge Date: 05/31/20
--- NOTE | 2020-05-28 19:39 | PCM.DC.SUM ---
Discharge Date and Diagnosis - Problem List Patient Problems: Active and Suspected Problems (Last Reviewed 05/19/20 @ 20:[address] Dusty Arana DO) Debility (Acute) Intractable low back pain (Acute) Lumbar spinal stenosis (Acute) Bilateral sacral insufficiency fracture with delayed healing (Acute) Date of Admission: 05/21/20 Date of Discharge: 05/31/20 - Primary Discharge Diagnosis Acute Problems: Active Problems (Last Reviewed 05/19/20 @ 20:[address] Dusty Arana DO) Debility (Acute) Intractable low back pain (Acute) Lumbar spinal stenosis (Acute) Bilateral sacral insufficiency fracture with delayed healing (Acute) - Secondary Discharge Diagnosis Chronic Problems: Chronic Problems (Last Reviewed 05/19/20 @ 20:[address] Dusty Arana DO) Hypertension (Chronic) Restless leg syndrome (Chronic) Vitamin B12 deficiency (Chronic) Allergic rhinitis (Chronic) GERD (gastroesophageal reflux disease) (Chronic) Asthma (Chronic) Benign hypertension (Chronic) HLD (hyperlipidemia) (Chronic) Hypothyroidism (Chronic) Chronic low back pain (Chronic) Seasonal allergies (Chronic) Hyponatremia (Chronic) Orthostatic hypotension (Chronic) Bilateral lower extremity edema (Chronic) Macrocytosis (Chronic) Hospital Course and Treatment Imaging Results: 05/21/20 18:13 Diet: Regular - General Food consistency:: Mechanical (Minced/Moist) Liquid Consistency:: Regular/Thin Operations: None Procedures: None Summary of Care Provided: The patient is a 74 year old Female with below past medical history hospitalized for intractable low back pain, worsening lumbar spinal stenosis, admitted to TCU with debility, here for rehabilitation, strengthening, L3-4 decompression surgery, further rehabilitation, prior to discharge home alone. Discharge home alone, [facility] PT/OT, [employer] Front Wheeled Walker. Patient Problems: Active and Suspected Problems (Last Reviewed 05/19/20 @ 20:[address] Dusty Arana DO) Debility (Acute) Intractable low back pain (Acute) Lumbar spinal stenosis (Acute) Bilateral sacral insufficiency fracture with delayed healing (Acute) - Physical Exam Vitals/I&O's: Vital Signs Temp Pulse Resp BP Pulse Ox 96.4 F L 79 16 135/70 H 98 05/28/20 16:28 05/28/20 16:28 05/28/20 16:28 05/28/20 16:28 05/28/20 16:28 Oxygen Delivery Method Room Air Weight: 83.053 kg Body Mass Index (BMI) 30.0 Finger Stick Blood Glucose 135 Intake and Output for Last 24 Hours 05/26/20 05/27/20 05/28/20 23:59 23:59 23:59 Intake Total 480 / 480 1080 / 1080 670 / 670 Balance 480 / 480 1080 / 1080 670 / 670 Current Medications Acetaminophen (Acetaminophen 500 Mg Tablet) 1,000 mg PO Q8@0800,1400,2200 [facility] Last Admin: 05/28/20 14:37 Dose: 1,000 mg Documented by: Albuterol Sulfate (Albuterol 2.5 Mg/3 Ml Vial.Neb.) 2.5 mg INHALATION Q2H PRN PRN PRN Reason: WHEEZING Last Admin: 05/27/20 02:27 Dose: 2.5 mg Documented by: Amlodipine Besylate (Amlodipine 10 Mg Tablet) 10 mg PO DAILY@0800 [facility] Last Admin: 05/28/20 08:51 Dose: 10 mg Documented by: Baclofen (Baclofen 10 Mg Tablet) 10 mg PO QHS [facility] Last Admin: 05/27/20 20:42 Dose: 10 mg Documented by: Bisacodyl (Bisacodyl 10 Mg Suppository) 10 mg RECTAL DAILY PRN PRN Reason: Constipation Enoxaparin Sodium (Enoxaparin 40 Mg/0.4 Ml Syringe) 40 mg SC DAILY@0600 [facility] Last Admin: 05/28/20 06:00 Dose: 40 mg Documented by: Fentanyl (Fentanyl 12 Mcg Patch) 12 mcg TRANSDERM. Q3D [facility] Last Admin: 05/26/20 10:00 Dose: 12 mcg Documented by: Hydrocortisone (Hydrocortisone 2.5% Crm) 1 applic TOPICAL TID PRN PRN; Protocol PRN Reason: RASH/TOPICAL IRRITATION Ipratropium [place] (Ipratropium [place] 0.06% Nasal [place]) 2 spray NASAL BID [facility] Last Admin: 05/28/20 18:13 Dose: 2 spray Documented by: Levothyroxine Sodium (Levothyroxine 100 Mcg Tablet) 100 mcg PO DAILY@0600 [facility] Last Admin: 05/28/20 06:01 Dose: 100 mcg Documented by: Loratadine (Loratadine 10 Mg Tablet) 10 mg PO DAILY [facility] Last Admin: 05/28/20 06:01 Dose: 10 mg Documented by: Losartan Potassium (Losartan Potassium 50 Mg Tablet) 50 mg PO DAILY@0800 [facility] Last Admin: 05/28/20 08:50 Dose: 50 mg Documented by: Magnesium Hydroxide (Magnesium Hydroxide 30 Ml Udc) 30 ml PO DAILY PRN PRN Reason: Constipation Metoprolol Succinate (Metoprolol(Xl)Succ 50 Mg Tablet) 50 mg PO DAILY@0800 [facility] Last Admin: 05/28/20 08:50 Dose: 50 mg Documented by: Montelukast Sodium (Montelukast 10 Mg Tablet) 10 mg PO DAILY@1700 [facility] Last Admin: 05/28/20 16:55 Dose: 10 mg Documented by: Multi-Ingredient Cream (Mineral Oil/Petrolatum,White Jar) 1 applic TOPICAL DAILY [facility]; Protocol Last Admin: 05/28/20 06:04 Dose: 1 applicatio Documented by: Oxycodone HCl (Oxycodone 5 Mg Tablet) 10 mg PO Q4H PRN PRN PRN Reason: Pain Score 6-10 Last Admin: 05/28/20 12:18 Dose: 10 mg Documented by: Pantoprazole Sodium (Pantoprazole Sodium 40 Mg Tablet) 40 mg PO DAILY@0800 [facility] Last Admin: 05/28/20 08:50 Dose: 40 mg Documented by: Polyethylene Glycol (Polyethylene Glycol 3350 17 Gm Packet) 17 gm PO DAILY@0800 [facility] Last Admin: 05/28/20 12:13 Dose: Not Given Documented by: Pramipexole Dihydrochloride (Pramipexole Di-Hcl 1 Mg Tablet) 1 mg PO QHS [facility] Last Admin: 05/27/20 21:50 Dose: 1 mg Documented by: Fluticasone/Salmeterol (Fluticasone/Salmeterol 232-14 Inhaler) 1 puff IH BID [facility] Last Admin: 05/28/20 18:13 Dose: 1 puff Documented by: Senna/Docusate Sodium (Senna/Docusate Sodium 1 Tablet) 2 tablet PO BID@0800,1800 [facility] Last Admin: 05/28/20 18:12 Dose: 2 tablet Documented by: Simethicone (Simethicone 80 Mg Tablet) 80 mg PO TIDPC [facility] Last Admin: 05/28/20 18:12 Dose: 80 mg Documented by: Tramadol HCl (Tramadol 50 Mg Tablet) 50 mg PO Q6H PRN PRN PRN Reason: Pain Score 1-5 Tuberculin PPD (Tuberculin,Purif.Prot.Deriv. 50 Tu/Ml Vial) 5 tu ID X1 ONE Stop: 05/29/20 10:01 Discharge Diet: No Restrictions Discharge Activity: Return to Normal Activity, May Shower, Use Walker Weight Bearing Status: Weight bearing as tolerated Call your doctor if you observe: Fever of 101 or Higher, Inability to urinate, Inability to have a bowel movement, Shortness of breath, Chest pain, Uncontrolled pain Home Medications: Medications to take at Discharge Hydrocodone/Acetaminophen [Hydrocodone-Acetamin 7.5-325] 0.5 tab PO TID PRN 09/04/18 Cetirizine HCl [Zyrtec] 10 mg PO DAILY 08/10/19 Amlodipine [Norvasc] 10 mg PO DAILY 01/30/20 Ipratropium [place] 0.06% [ATROVENT NASAL SPRAY] 1 spray NASAL BID 01/30/20 Ropinirole HCl [Requip] 1 mg PO QHS 01/30/20 Fluticasone/Vilanterol [Breo Ellipta 100-25 Mcg INH] 1 ea IH DAILY 04/22/20 buprenorphine 10 mcg/hour weekly transdermal patch 1 patch TRANSDERMAL MO ea 05/12/20 montelukast 10 mg tablet 10 tab PO DAILY 05/12/20 olmesartan 20 mg tablet 20 ea PO DAILY 05/12/20 Metoprolol Succinate [Toprol Xl] 50 mg PO DAILY 05/19/20 Acetaminophen [Tylenol] 1,000 mg PO Q8@0800,1400,2200 tablet 05/28/20 Amlodipine [Norvasc] 10 mg PO DAILY@0800 tablet 05/28/20 Baclofen [Lioresal] 10 mg PO QHS #30 tab 05/28/20 Ipratropium [place] 0.06% [ATROVENT NASAL SPRAY] 2 spray NASAL BID nasal.sry 05/28/20 Levothyroxine [Synthroid] 100 mcg PO DAILY@0600 tablet 05/28/20 Metoprolol(XL)Succ [Toprol Xl (Beta Altaf)] 50 mg PO DAILY@0800 tablet 05/28/20 Mineral Oil/Petrolatum,White [Eucerin] 1 applic TOPICAL DAILY jar 05/28/20 Montelukast [Singulair] 10 mg PO DAILY@1700 tablet 05/28/20 Pantoprazole Sodium [Protonix] 40 mg PO DAILY@0800 #30 tab 05/28/20 Following Prescriptions Were Given to Patient: Baclofen [Lioresal] 10 mg PO QHS #30 tab Transmission Status: Pending to [id number] Pantoprazole Sodium [Protonix] 40 mg PO DAILY@0800 #30 tab Transmission Status: Pending to [id number] Primary Care Physician: Jaime Culver Chi, MD [Primary Care Provider] - Please follow up with your Primary Care Physician in: 1 week. Please Follow Up With: Dr. Orta When: Pre-op appointment Please Follow Up With: Dr. Orta When: Pre op paperwork Disposition: Home Minutes spent on discharge:: 30 Patient Condition:: Stable Medical Necessity - Tobacco Use Smoking Status: Never smoker Tobacco Use: Non-smoker Meaningful Use Info Meaningful Use Diagnoses (Choose all that apply): None applicable
[2020-05-28 21:22] VITALS: PULSE 87; RESP 18; O2SAT 97
[2020-05-28] MEDS: Baclofen 10 MG Tablet PO (21:30)
[2020-05-28] MEDS: Pramipexole Di-HCl 1 MG Tablet PO (21:30)
--- NOTE | 2020-05-28 23:59 | NURSING ---
Dr. Culver notified of patient having +3 pitted edema to bilateral pedal. New orders given for Gulshan Wraps.
[2020-05-29] VITALS (7 sets, daily range): BP systolic 131–155; BP diastolic 71–104; PULSE 84–102; RESP 17–20; TEMP 35.8–36.6; O2SAT 94–98
[2020-05-29] MEDS: Albuterol 2.5 MG/3 ML VIAL.NEB. INHALATION (00:04)
[2020-05-29] MEDS: oxyCODONE 5 MG Tablet 10 MG PO ×3 (04:54→17:23)
[2020-05-29] MEDS: Ipratropium Bromide 0.06% NASAL SPRAY 2 SPRAY NASAL ×2 (04:55→17:25)
[2020-05-29] MEDS: Fluticasone/Salmeterol 232-14 Inhaler 1 PUFF IH ×2 (04:55→17:24)
[2020-05-29] MEDS: Levothyroxine 100 MCG Tablet PO (04:56)
[2020-05-29] MEDS: Loratadine 10 MG Tablet PO (04:56)
[2020-05-29] MEDS: Enoxaparin 40 MG/0.4 ML Syringe SC (04:58)
[2020-05-29 06:06] LABS: Absolute Lymphocyte Count 1.83 X10^3/uL (0.83-4.51); Absolute Neutrophil Count 8.3 X10^3/uL (2.0-7.7); Basophil# 0.05 X10^3/uL; Basophil% 0.4 % (0-1); Eosinophil# 0.09 X10^3/uL; Eosinophils% 0.8 % (0-5); Hematocrit 40.8 % (37-47); Hemoglobin 13.2 g/dL (12.0-15.0); Lymphocyte # 1.83 X10^3/ul (4.0); Lymphocyte % 15.9 % (19-41); Mean Corp Hgb Conc 32.4 g/dL (32-36); Mean Corpuscular Hgb 34.6 pg (27.0-32.0); Mean Corpuscular Volume 106.8 fL (81-99); Mean Platelet Vol. 11.3 fl (6.2-12.0); Monocyte# 0.97 X10^3/uL; Monocyte% 8.4 % (0-10); NRBC Flagged by Analyzer 0 % (0-5); Neutrophil # 8.26 X10^3/uL (2.7-7.7); Neutrophil % 71.9 % (47-70); Platelet Count 291 K/mm3 (150-450); RBC Distribution Width SD 55.7 fl (35.1-43.9); Red Blood Count 3.82 M/mm3 (4.2-5.4); White Blood Count 11.5 K/mm3 (4.4-11.0)
[2020-05-29 06:27] LABS: Anion Gap 8 (5-15); BUN 17 mg/dL (7-18); BUN/Creat Ratio 19.4 RATIO (10-20); Calcium,Total 9.1 mg/dL (8.5-10.1); Chloride 93 mmol/L (98-107); Creatinine, Serum 0.88 mg/dL (0.55-1.02); EST Glomerular Filtration Rate 67 mL/min (>60); Est Glom Filt Rate - Afr Amer 81 mL/min (>60); Estimated Creatinine Clearance 46.96 ml/min; Glucose 156 mg/dL (74-106); Potassium 3.5 mmol/L (3.5-5.1); Sodium Level 129 mmol/L (136-145)
[2020-05-29] MEDS: traMADol 50 MG Tablet PO (07:57)
[2020-05-29] MEDS: Polyethylene Glycol 3350 17 GM PACKET PO (08:01)
[2020-05-29] MEDS: Losartan Potassium 50 MG Tablet PO (08:01)
[2020-05-29] MEDS: amLODIPine 10 MG Tablet PO (08:02)
[2020-05-29] MEDS: Pantoprazole Sodium 40 MG Tablet PO (08:02)
[2020-05-29] MEDS: Acetaminophen 500 MG Tablet 1000 MG PO ×3 (08:03→21:43)
[2020-05-29] MEDS: Metoprolol(XL)Succ 50 MG Tablet PO (08:03)
[2020-05-29] MEDS: Senna/Docusate Sodium 1 Tablet 2 TABLET PO ×2 (08:08→17:26)
[2020-05-29] MEDS: Tuberculin,Purif.prot.deriv. 50 TU/ML Vial 5 ML ID (11:24)
[2020-05-29 11:32] LABS: Osmolality, Serum 285 mOsm/KG (280-301)
[2020-05-29 11:35] LABS: Magnesium 2.2 mg/dL (1.6-2.6)
[2020-05-29 14:50] LABS: Urine Sodium 6 mmol/L (Not Establ.)
[2020-05-29 16:02] LABS: Osmolality, Urine 287 mOsm/KG
[2020-05-29] MEDS: Montelukast 10 MG Tablet PO (17:26)
[2020-05-29] MEDS: Pramipexole Di-HCl 1 MG Tablet PO (21:43)
[2020-05-29] MEDS: Baclofen 10 MG Tablet PO (21:43)
[2020-05-29 22:33] LABS: Bacteria 0 SEEN /hpf (None Seen); Mucous, Urine 0 SEEN /hpf (<or=2+); Red Blood Cells-Urine 0 SEEN /hpf (0-5); Squamous Epithelial Cells - UA 0 SEEN /hpf (5-10); White Blood Cells 0 SEEN /hpf (0-5)
[2020-05-29 22:34] LABS: Color, Urine Yellow (Yellow); Glucose, Dipstick Normal (Normal); Ketone-Dipstick Negative (Negative); Leukocyte Esterase-Dipstick Negative /ul (Negative); Nitrite-Dipstick Negative (Negative); Occult Blood-Urine 10 /ul (Negative); Protein-Dipstick 15 mg/dl (Negative); Urine Bilirubin Dipstick Negative (Negative); Urine Clarity Clear (Clear); Urine Urobilinogen Normal (Normal)
[2020-05-30 05:13] VITALS: BP 148/79; PULSE 86; RESP 18; TEMP 36.7; O2SAT 96
[2020-05-30] MEDS: Ipratropium Bromide 0.06% NASAL SPRAY 2 SPRAY NASAL ×2 (05:18→17:52)
[2020-05-30] MEDS: Fluticasone/Salmeterol 232-14 Inhaler 1 PUFF IH ×2 (05:18→17:52)
[2020-05-30] MEDS: Loratadine 10 MG Tablet PO (05:19)
[2020-05-30] MEDS: Levothyroxine 100 MCG Tablet PO (05:19)
[2020-05-30] MEDS: oxyCODONE 5 MG Tablet 10 MG PO ×4 (05:19→21:18)
[2020-05-30] MEDS: Enoxaparin 40 MG/0.4 ML Syringe SC (05:20)
--- NOTE | 2020-05-30 06:59 | MDS.RN ---
Information for the mds was obtained from review of the clinical record, interview of resident, staff, and direct observation of resident's care.
[2020-05-30 08:11] VITALS: PULSE 86
[2020-05-30] MEDS: Losartan Potassium 50 MG Tablet PO (08:11)
[2020-05-30] MEDS: amLODIPine 10 MG Tablet PO (08:11)
[2020-05-30] MEDS: Metoprolol(XL)Succ 50 MG Tablet PO (08:11)
[2020-05-30] MEDS: Pantoprazole Sodium 40 MG Tablet PO (08:11)
[2020-05-30] MEDS: Senna/Docusate Sodium 1 Tablet 2 TABLET PO ×2 (08:11→17:58)
[2020-05-30] MEDS: Polyethylene Glycol 3350 17 GM PACKET PO (08:11)
[2020-05-30] MEDS: Acetaminophen 500 MG Tablet 1000 MG PO ×3 (08:12→21:20)
--- NOTE | 2020-05-30 10:03 | MDS.RN ---
completed mds pain interview for ANSHUL 05/31/20.
[2020-05-30] MEDS: Furosemide 40 MG Tablet PO (13:31)
--- NOTE | 2020-05-30 15:14 | CASEMGMT ---
Social Work Spoke with pt whom is requesting to have HHC instead of OP. Cancelled [facility]. Referred to [facility] PT/OT/SN. Pt appreciative. Patience Messer, [facility]
[2020-05-30 15:36] VITALS: BP 132/83; PULSE 87; RESP 18; TEMP 35.9; O2SAT 96
[2020-05-30] MEDS: Montelukast 10 MG Tablet PO (17:57)
--- NOTE | 2020-05-30 18:04 | NURSING ---
Pt c/o of anxious feeling d/t going home tomorrow. She is also worried about her feet being so swollen. Let her know that we did press cutter her Lasix and it does take time to work. Dr. Culver made aware ordered 1x dose of Ativan. Will continue to monitor.
[2020-05-30] MEDS: LORazepam 0.5 MG Tablet PO (18:41)
[2020-05-30] MEDS: Pramipexole Di-HCl 1 MG Tablet PO (21:21)
[2020-05-30] MEDS: Baclofen 10 MG Tablet PO (21:21)
[2020-05-31 06:12] VITALS: BP 142/65; PULSE 78; RESP 16; TEMP 36.4; O2SAT 99
[2020-05-31] MEDS: Enoxaparin 40 MG/0.4 ML Syringe SC (06:16)
[2020-05-31] MEDS: Acetaminophen 500 MG Tablet 1000 MG PO (06:17)
[2020-05-31] MEDS: Fluticasone/Salmeterol 232-14 Inhaler 1 PUFF IH (06:17)
[2020-05-31] MEDS: Loratadine 10 MG Tablet PO (06:18)
[2020-05-31] MEDS: Ipratropium Bromide 0.06% NASAL SPRAY 2 SPRAY NASAL (06:19)
[2020-05-31] MEDS: Furosemide 40 MG Tablet PO (06:26)
[2020-05-31] MEDS: Levothyroxine 100 MCG Tablet PO (06:27)
[2020-05-31 09:07] VITALS: BP 151/77; PULSE 91; RESP 18; TEMP 36.6; O2SAT 97
[2020-05-31] MEDS: Losartan Potassium 50 MG Tablet PO (09:10)
[2020-05-31 09:11] VITALS: BP 151/77; PULSE 91
[2020-05-31] MEDS: Metoprolol(XL)Succ 50 MG Tablet PO (09:11)
[2020-05-31] MEDS: Senna/Docusate Sodium 1 Tablet 2 TABLET PO (09:11)
[2020-05-31] MEDS: Pantoprazole Sodium 40 MG Tablet PO (09:12)
[2020-05-31] MEDS: amLODIPine 10 MG Tablet PO (09:12)
[2020-05-31] MEDS: oxyCODONE 5 MG Tablet 10 MG PO (09:15)
[2020-05-31 09:59] VITALS: PULSE 95; RESP 18; O2SAT 96
== END 2020-05-31 10:52 | disposition home health service (06) | DRG 560 ==
PROVIDERS: Orthopaedic Surgery; Admitting Provider Family Medicine Geriatric Medicine; PCP Family Medicine Geriatric Medicine; Visit Provider Family Medicine Geriatric Medicine
DX: Z47.89 Encounter for other orthopedic aftercare (principal); E87.1 Hypo-osmolality and hyponatremia; M48.061 Spinal stenosis, lumbar region without neurogenic claudication; G25.81 Restless legs syndrome; J45.909 Unspecified asthma, uncomplicated; K21.9 Gastro-esophageal reflux disease without esophagitis; E03.9 Hypothyroidism, unspecified; I10 Essential (primary) hypertension; E78.5 Hyperlipidemia, unspecified; G89.29 Other chronic pain; Z23 Encounter for immunization
CPT/HCPCS: 36415; 80048; 81001; 83735; 83930; 83935; 84300; 85025; 87081; 87426; 87635; 90732; 94640; 97110; 97116; 97162; 97166; 97530; 97535; 97802; G0009; U0002

== ENCOUNTER 2020-06-07 08:53 | Emergency (ER) | payer MEDICARE, SELFPAY ==
[2020-06-07 08:53] VITALS: BP 186/96; PULSE 100; RESP 20; TEMP 36.6; O2SAT 99; BMI 31.7
--- NOTE | 2020-06-07 09:10 | RAD_ITS ---
STUDY: X-RAY CHEST REASON FOR EXAM: Female, 74 years old. Chest pain, leg edema TECHNIQUE: Single AP portable view of the chest. COMPARISON: 07/09/2019 FINDINGS: Leads overlying the lower thoracic spine 3 of complication The lungs are clear and expanded. There is no demonstrated pleural abnormality. Normal size heart. Normal mediastinum and nasrin. Normal visualized pulmonary arteries. Normal visualized aortic arch and descending thoracic aorta. There are diffuse degenerative changes of the visualized thoracic spine. Normal visualized ribs, clavicles, and shoulders. There is no demonstrated abnormality of the visualized soft tissue structures of the upper abdomen. RAD/Chest 1 View (Portable) IMPRESSION: No acute pulmonary process Electronically Signed: Angelo Mccauley MD at 10:15 EST , Service support ,
--- NOTE | 2020-06-07 09:10 | EKG12_ITS ---
Test Reason : DYSRHYTHMIA Blood Pressure : / mmHG Vent. Rate : 094 BPM Atrial Rate : 094 BPM P-R Int : 136 ms QRS Dur : 080 ms QT Int : 350 ms P-R-T Axes : 058 -28 047 degrees QTc Int : 437 ms Sinus rhythm with Premature atrial complexes Possible Left atrial enlargement Left ventricular hypertrophy Abnormal ECG Confirmed by CHRIS SAUCEDA, MARQUES ([id number]), editor newspaper DOROTEO HERNANDEZ ([id number]) on 06/10/2020 9:12:41 AM Referred By: YARI Confirmed By:MARQUES PEREZ MD
[2020-06-07 09:25] LABS: Absolute Lymphocyte Count 1.71 X10^3/uL (0.83-4.51); Absolute Neutrophil Count 6.2 X10^3/uL (2.0-7.7); Basophil# 0.05 X10^3/uL; Basophil% 0.6 % (0-1); Eosinophils% 1.1 % (0-5); Hematocrit 39.1 % (37-47); Hemoglobin 12.7 g/dL (12.0-15.0); Lymphocyte # 1.71 X10^3/ul (4.0); Lymphocyte % 19.1 % (19-41); Mean Corp Hgb Conc 32.5 g/dL (32-36); Mean Corpuscular Hgb 34.8 pg (27.0-32.0); Mean Corpuscular Volume 107.1 fL (81-99); Mean Platelet Vol. 10.5 fl (6.2-12.0); Monocyte# 0.79 X10^3/uL; Monocyte% 8.8 % (0-10); NRBC Flagged by Analyzer 0 % (0-5); Neutrophil % 69.3 % (47-70); Platelet Count 282 K/mm3 (150-450); RBC Distribution Width CV 14.2 % (11.6-14.6); RBC Distribution Width SD 56.1 fl (35.1-43.9); Red Blood Count 3.65 M/mm3 (4.2-5.4)
[2020-06-07 09:43] LABS: BNP,B-Type NATRIURETIC PEPTIDE 36.8 pg/mL (0-100)
[2020-06-07 09:45] LABS: Mucous, Urine 0 SEEN /hpf (<or=2+); Red Blood Cells-Urine 0 SEEN /hpf (0-5)
[2020-06-07 09:46] LABS: AST(SGOT) 18 U/L (15-37); Alanine Aminotransfer ALT/SGPT 41 U/L (13-56); Albumin, Serum 3.5 g/dL (3.2-5.0); Alkaline Phosphatase 129 U/L (45-117); Anion Gap 10 (5-15); BUN 9 mg/dL (7-18); BUN/Creat Ratio 10.2 RATIO (10-20); Calcium,Total 8.9 mg/dL (8.5-10.1); Chloride 101 mmol/L (98-107); Creatinine, Serum 0.88 mg/dL (0.55-1.02); EST Glomerular Filtration Rate 66 mL/min (>60); Est Glom Filt Rate - Afr Amer 80 mL/min (>60); Estimated Creatinine Clearance 46.96 ml/min; Globulin 3.5 g/dL (2.2-4.2); Glucose 166 mg/dL (74-106); Potassium 3.5 mmol/L (3.5-5.1); Sodium Level 135 mmol/L (136-145)
[2020-06-07 09:53] LABS: Color, Urine Yellow (Yellow); Glucose, Dipstick Normal (Normal); Ketone-Dipstick Negative (Negative); Leukocyte Esterase-Dipstick 500 /ul (Negative); Nitrite-Dipstick Negative (Negative); Occult Blood-Urine Negative /ul (Negative); Protein-Dipstick Negative (Negative); Urine Bilirubin Dipstick Negative (Negative); Urine Clarity Clear (Clear); Urine Urobilinogen Normal (Normal); Urine pH 6.5 (5.0 - 8.0)
--- NOTE | 2020-06-07 09:56 | ED.VISSUMM ---
- ER Visit Summary Date of Service: 06/07/20 Chief Complaint: Bilateral lower extremity edema History of Present Illness: The patient is a 74 F who presents with bilateral lower extremity edema that has been getting worse over the past week. Patient states her primary care physician started her on Lasix. Patient states this has not been helping with the swelling. Patient states she has aching and sharp pain in both lower extremities. Patient states nothing makes it better and nothing makes it worse. Patient denies any fevers or chills. Patient denies any change in urination. Patient does admit to some chronic low back pain that has gotten worse. Physical Examination: Vital signs are stable except for an elevated blood pressure of 186/96. Patient is afebrile. Patient is in no acute distress. Oral mucosa is pink and moist. Neck is supple. Trachea is midline. There is no JVD. Heart was regular rate and rhythm. Lungs were slightly diminished in the bases bilaterally. There is good respiratory effort noted. Abdomen is soft. Bowel sounds are normal. There is no tenderness. Cranial nerves II through XII are intact. There are no focal motor or sensory deficits noted. Extremities are intact. There is 2+ edema of the lower extremities bilaterally. There is no calf tenderness. There is some mild erythema over the anterior aspect of the lower legs bilaterally. Test Results: EKG shows a normal sinus rhythm with a rate of 94. There is left ventricular hypertrophy noted. There are no acute ST or T wave changes. This was interpreted by myself. Portable 1 view chest x-ray was obtained. On my interpretation, lung trivedi are clear. There is normal cardiac silhouette. Bony thorax is normal. There is no acute process noted. Radiologist also interpreted the x-ray and agrees. CBC and comprehensive metabolic profile were obtained and were essentially within normal limits. Urinalysis does not show any evidence of urinary tract infection. Troponin was normal. BNP was normal. Emergency Department Course and Treatment: Patient was advised of her findings. Patient was instructed to keep her legs elevated. Patient was instructed to do active motions with her ankles and knees to improve lymphatic flow. Patient was instructed to follow-up with her primary care physician in 3 to 5 days for further evaluation. Patient understood and was agreeable with the plan. All questions were answered. Disposition: Discharge home Impression: 1. Peripheral edema This note was generated with [employer] software. It may contain incorrect words, spelling, and punctuation that were not noted in review of the chart prior to signing ED Disposition - Plan for ED Patient: Disposition: Home or Assisted Living Diagnosis: Peripheral edema Instructions: ED Peripheral Edema, Bilateral Referrals: Jaime Culver Chi, MD [Primary Care Provider] - 3-5 Days
[2020-06-07 10:16] LABS: Bacteria 1+ /hpf (None Seen); Squamous Epithelial Cells - UA 0-5 SEEN /hpf (5-10); White Blood Cells 0-5 SEEN /hpf (0-5)
[2020-06-07 10:46] VITALS: BP 123/72; PULSE 84; RESP 16; O2SAT 97
--- NOTE | 2020-06-07 10:46 | ED.RN ---
IV DC'ED, CATHETER INTACT, SMALL GAUZE DRESSING PLACED. DISCHARGE INSTRUCTIONS GIVEN TO AND REVIEWED WITH PATIENT, PATIENT DENIES QUESTIONS OR CONCERNS AND VOICES UNDERSTANDING OF DISCHARGE INSTRUCTIONS. PT AMBULATES OUT OF ROOM WITHOUT DIFFICULTY.
== END 2020-06-07 10:47 | disposition home or self-care (01) ==
PROVIDERS: Emergency Provider Emergency Medicine; PCP Family Medicine Geriatric Medicine
DX: R60.0 Localized edema (principal); I51.7 Cardiomegaly; M54.9 Dorsalgia, unspecified; G89.29 Other chronic pain; E78.00 Pure hypercholesterolemia, unspecified; K21.9 Gastro-esophageal reflux disease without esophagitis; E03.9 Hypothyroidism, unspecified; I10 Essential (primary) hypertension; J45.909 Unspecified asthma, uncomplicated; G25.81 Restless legs syndrome
CPT/HCPCS: 71045; 80053; 81001; 83880; 84484; 85025; 93005; 99285; J7030; A4216

== ENCOUNTER → 2020-06-10 10:56 | Outpatient (CLI) | payer MEDICARE, SELFPAY ==
[2020-06-07 08:53] VITALS: BMI 31.7
[2020-06-10 11:51] LABS: Anion Gap 6 (5-15); BUN 15 mg/dL (7-18); BUN/Creat Ratio 17.6 RATIO (10-20); Calcium,Total 8.9 mg/dL (8.5-10.1); Chloride 103 mmol/L (98-107); Creatinine, Serum 0.85 mg/dL (0.55-1.02); EST Glomerular Filtration Rate 69 mL/min (>60); Est Glom Filt Rate - Afr Amer 83 mL/min (>60); Glucose 158 mg/dL (74-106); Potassium 3.4 mmol/L (3.5-5.1); Sodium Level 137 mmol/L (136-145)
== END ==
PROVIDERS: PCP Family Medicine Geriatric Medicine; Referring Provider Family Medicine Geriatric Medicine; Visit Provider Family Medicine Geriatric Medicine
DX: E87.1 Hypo-osmolality and hyponatremia (principal)
CPT/HCPCS: 36415; 80048

== ENCOUNTER 2020-06-17 14:48 | Observation (INO) | payer MEDICARE, SELFPAY ==
[2020-05-29 11:57] LABS: HIV - WCH Non-Reactive (Nonreactive)
--- NOTE | 2020-05-29 13:16 | EKG12_ITS ---
Test Reason : PRE OP Blood Pressure : / mmHG Vent. Rate : 081 BPM Atrial Rate : 081 BPM P-R Int : 134 ms QRS Dur : 080 ms QT Int : 364 ms P-R-T Axes : 065 -28 074 degrees QTc Int : 422 ms Normal sinus rhythm Left ventricular hypertrophy Abnormal ECG Confirmed by CHRIS SAUCEDA, MARQUES ([id number]), graphic editor DOROETO HERNANDEZ ([id number]) on 05/30/2020 11:01:30 AM Referred By: Confirmed By:MARQUES PEREZ MD
[2020-05-30 12:11] LABS: HEPATITIS B SURFACE AG Negative (Negative); Hepatitis A AB, Total Negative (Negative); Hepatitis A IgM Antibody Negative (Negative); Hepatitis B Core AB IgM Negative (Negative); Hepatitis B Core Ab Total Negative (Negative); Hepatitis C Ab <0.1 s/co ratio (0.0-0.9)
[2020-05-30 16:41] LABS: Hep B Surface Antibodies Non Reactive (.)
[2020-06-17] VITALS (10 sets, daily range): BP systolic 138–185; BP diastolic 59–109; PULSE 73–84; RESP 16–18; TEMP 36.1–37.1; O2SAT 97–100; BMI 31.7
[2020-06-17] MEDS: Acetaminophen 500 MG Tablet 1000 MG PO (10:55)
[2020-06-17] MEDS: Insulin Lispro 100 UNIT/ML INSULN.PEN SC (10:57)
[2020-06-17] MEDS: Lactated Ringers 1,000 ML 100 ML IV ×3 (11:09→15:47)
--- NOTE | 2020-06-17 11:16 | HP_ITS ---
Intake Intake Visit Reasons: Lumbar pain Chief Complaint: back pain Accompanied by: Self Is patient in pain?: Yes Pain scale (1-10): 8 Allergies clindamycin Allergy (Mild, Verified 06/09/20 10:06) rash acetaminophen [From Tylenol-Codeine #3] Adverse Reaction (Severe, Verified 06/09/20 10:06) Nausea codeine phosphate [From Tylenol-Codeine #3] Adverse Reaction (Severe, Verified 06/09/20 10:06) Nausea Medications Hydrocodone/Acetaminophen [Hydrocodone-Acetamin 7.5-325] 0.5 tab PO TID PRN 09/04/18 [History Confirmed 06/09/20] Metoprolol Succinate [Toprol Xl] 50 mg PO DAILY 05/19/20 [History Confirmed 06/09/20] Acetaminophen [Tylenol] 1,000 mg PO PRN PRN 06/02/20 [History Confirmed 06/09/20] Albuterol IH (ProAir) [Proair Hfa (SP)Vent Pts] 1 - 2 puff INHALATION Q6H PRN PRN 06/02/20 [History Confirmed 06/09/20] Fluticasone/Vilanterol [Breo Ellipta 200-25 Mcg INH] 1 ea IH DAILY 06/02/20 [History Confirmed 06/09/20] Potassium Citrate [Urocit-K] 20 meq PO DAILY 06/02/20 [History Confirmed 06/09/20] Cetirizine HCl [Zyrtec] 10 mg PO DAILY 06/07/20 [History Confirmed 06/09/20] Famotidine 40 mg PO DAILY 06/07/20 [History Confirmed 06/09/20] furosemide 40 mg tablet tab PO 06/09/20 [History Confirmed 06/09/20] levothyroxine 125 mcg tablet 125 mcg PO DAILY tab 06/09/20 [History Confirmed 06/09/20] [facility] Medical History (Updated 06/08/20 @ 00:00 by Maikel De La Cruz) Asthma (Acute) B12 deficiency (Acute) Cataract (Acute) Cataracts, bilateral (Acute) GERD (gastroesophageal reflux disease) (Acute) History of colon polyps (Acute) Hyperlipidemia (Acute) RLS (restless legs syndrome) (Acute) Chronic back pain (Chronic) HTN (hypertension) (Chronic) Surgical History History of appendectomy (Acute) History of bilateral carpal tunnel release (Acute) History of carpal tunnel release (Acute) History of colonoscopy (Acute ~2012) History of hysterectomy (Acute) History of loop recorder (Acute) Hx of tonsillectomy (Acute) history of pain stimulator (Acute) Family History Mother Heart valve disorder Hypertension Heart disease Father Pneumococcal pneumonia CVA (cerebral vascular accident) Heart disease Myocardial infarction Social History (Updated 06/09/20 @ 10:[address] Fitz Orta DO) Smoking Status: Never smoker HPI Lumbar pain: Surgical H&P: Yes Details: Parts of this documentation were recorded by a scribe, this documentation accurately reflects the service provided and the decisions made by me, Dr. Fitz Orta DO 06/09/20 1001. KYLEIGH BAUMAN is a 74 year old F here today for to sign surgery consent. Patient's surgery is scheduled for 06/17/2020. Kyleigh is here for her preop visit. She is scheduled for surgery on the eighth a week from tomorrow. She is scheduled for a decompression laminectomy at the L3- 4 level. Her pain is mainly on the left leg. I discussed the surgery at length with her how it would be done what to expect postoperatively etc. We also spoke of possible risks and complications associated with this type of surgery including possibility of coma paralysis infection meningitis failed to relieve his symptoms blood clot in the legs blood clot in the lungs microinfarction stroke dural leak among others. She understood these possible risks and complications she voluntarily signed the operative permit. I will see her again at surgery next week. Coding Level of Care Code Off vis,est,level 2 Time Spent (min) 20
[2020-06-17 11:25] LABS: Bedside Glucose 219 mg/dL (70-110)
--- NOTE | 2020-06-17 12:00 | RAD_ITS ---
STUDY: X-RAY - LUMBAR SPINE REASON FOR EXAM: Female, 74 years old. LAMINECTOMY, LUMBAR DECOMPRESSION L3-L4 TECHNIQUE: Single lateral view(s) of the lumbar spine was obtained. COMPARISON: None FINDINGS: Intraoperative image. The metallic surgical instrument is seen overlying the posterior aspect of the L3-L4 level. RAD/Spine 1 View Any Level IMPRESSION: The metallic surgical instrument is overlying the posterior aspect of the L3-L4 disc space level. Electronically Signed: Gonzalo Jordan, at 15:51 EST , Service support ,
[2020-06-17] MEDS: Cefazolin 2 GM in 0.9% Normal Saline 100 ML IV (12:07)
[2020-06-17] MEDS: THROMBIN (RECOMBINANT) 20,000 UNIT VIAL 20000 UNIT TOPICAL (13:37)
--- NOTE | 2020-06-17 15:00 | OP.PCM_ITS ---
Report of Operation Description of Surgical Findings:: Preoperative diagnosis: This L3-4 Postoperative diagnoses: The same Procedure: Decompression laminectomy L3-4 Surgeon: Dr. You Gamez assist: Shaun from the OR Anesthesia: [facility] Estimated blood loss: Less than 30 cc Drains: Medium Hemovac Complications: None Patient was taken to the OR where she was placed under general endotracheal anesthesia. Romero catheter was inserted. Neuro monitoring establish proper needle placements. Patient was then placed in the prone position on the [place] frame. After appropriate positioning with care to protect her bony prominences her breasts her ulnar nerves of both elbows her brachial plexus and her facial features the back was prepped and draped standard fashion. I then made a longitudinal incision centered over L3-4 above her old surgery site. Subcutaneous tissues were incised the length of skin incision. I then elevated. Paravertebral muscles of the lamina of L3 first on the left side. An intraoperative x-ray was taken with a marker in place to assure that we were indeed at the proper level which we were. And elevated the paravertebral muscles off of the L3 lamina on the right side all the way out over the facet. The super slide retractors were then put in place. Using double-action rongeurs I removed the spinous process of the L3 vertebra. I then thinned it out with a double-action rongeurs on each lamina. I then released the ligamentum flavum off the underside of the lamina of L3 on both sides and then began my laminectomy using the 45 degree Kerrison rongeurs of different sizes to perform the laminotomy bilaterally. I then opened the midline ligamentum flavum and began removing it with a 45 degree Kerrison rongeurs all the way out to the lateral recesses on both sides. Using the of Kerrison there also opened the right side which was her predominant pain and performed SLAP foraminotomies with a 45 degree Kerrison rongeurs. Her preoperative symptoms were all anterior thigh pain suggesting that it was the L4 nerve roots involved and not L5. Noted to go any further would have been fruitless as the ligamentum flavum below was completely adhered to the dura from the old surgery no doubt. However the decompression was completely accomplished at L3-4 thorough irrigation was c arried out every 10 to 15 minutes in the course of the case. Bleeders were controlled with bipolar cautery and thrombin-soaked Gelfoam. A last thorough irrigation was carried out I then placed the amniotic membrane directly over the dura to prevent adhesions. Gelfoam was placed over the top of that a medium Hemovac drain was inserted and closure was begun I closed the lumbar fascia using [id number]-[id number] suture with #1 Vicryl followed by closure of subcutaneous tissues with 2-0 Vicryl in interrupted fashion and skin was approximated using skin clips sterile dressings were then applied. She was then recovered in the OR she was moved to her hospital bed and taken to recovery in satisfactory condition. The end of operative summary on Kyleigh Strickland.
[2020-06-17 15:51] LABS: Bedside Glucose 153 mg/dL (70-110)
--- NOTE | 2020-06-17 16:52 | PCM.PROGNOTE ---
<DarwinMali [employer]SEKEEPING/LAUNDRY - Last Filed: 06/17/20 17:51> Subjective: Patient seen and examined. Underwent decompression laminectomy L3-L4. Hospitalist services consulted for medical management. Patient complains of postoperative back pain. Denies other symptoms or complaints. - Physical Exam Vitals/I&O's: Vital Signs Temp Pulse Resp BP Pulse Ox 97.0 F L 74 18 177/81 H 100 06/17/20 16:17 06/17/20 16:17 06/17/20 16:17 06/17/20 16:17 06/17/20 16:17 Oxygen Flow Rate (L/min) 6 Oxygen Delivery Method Simple Mask Weight: 184 lb 11.958 oz Body Mass Index (BMI) 31.7 Finger Stick Blood Glucose 135 Intake and Output for Last 24 Hours 06/15/20 06/16/20 06/17/20 23:59 23:59 23:59 Intake Total 5 / 2215 Output Total 90 / 90 Balance 2124 / 2124 General: Alert, Oriented x3, Cooperative HEENT: Atraumatic, PERRLA, EOMI, Normocephalic Neck: Supple, No JVD, Negative Carotid Bruits Lungs: Clear to auscultation, Normal air movement Cardiovascular: Regular rate, No murmurs Abdomen: Bowel Sounds Present, Soft, Non Tender Extremities: No clubbing, No cyanosis, No edema, Capillary Refill Less than 3 Seconds Skin: - - Postop dressing intact Musculoskeletal: No Tenderness to Palpation of Joints or Extremities Neurological: Cranial nerves II-XII grossly intact, Neuro grossly intact Psych/Mental Status: Normal Affect, Appropriate Laboratory Results 06/17/20 10:39: POC Glucose 219 H 06/17/20 15:42: POC Glucose 153 H Current Medications Diazepam (Diazepam 5 Mg Tablet) 5 mg PO Q6H PRN PRN PRN Reason: Muscle Spasms Enteral Nutritional Formula (Ensure Surgery 237 Ml Liquid) 237 ml PO TIDCM [facility] Famotidine (Famotidine 20 Mg Tablet) 20 mg PO BID [facility] Lactated Ringer's () 1,000 mls @ 100 mls/hr IV .Q10H [facility] Last Admin: 06/17/20 15:47 Dose: 100 mls/hr Documented by: Cefazolin Sodium () 1 gm in 50 mls @ 100 mls/hr IV Q8H [facility] Insulin Human Lispro (Insulin Lispro 100 Unit/Ml Insuln.Pen) 1 - 6 unit SC Q4H PRN PRN; Protocol PRN Reason: BG>/= 180, SEE PROTOCOL Last Admin: 06/17/20 10:57 Dose: 2 u Documented by: Morphine Sulfate (Morphine 4 Mg/Ml Syringe) 2 - 4 mg IV Q2H PRN PRN PRN Reason: Pain Score 6-10 Ondansetron HCl (Ondansetron 4 Mg/2 Ml Vial) 4 mg IV Q8H PRN PRN PRN Reason: NAUSEA Senna/Docusate Sodium (Senna/Docusate Sodium 1 Tablet) 2 tablet PO BID [facility] Sodium Chloride (0.9% Nacl Peripheral Flush Adult/Peds) 5 - 15 ml IV UD PRN PRN Reason: SALINE FLUSH Zolpidem Tartrate (Zolpidem Tartrate 5 Mg Tablet) 5 mg PO QHS PRN PRN PRN Reason: INSOMNIA Medical Necessity - Tobacco Use Smoking Status: Never smoker Assessment/Plan All Active Problems (Last Reviewed 05/19/20 @ 20:[address] Dusty Arana, DO) Intractable back pain (Acute) Debility (Acute) Intractable low back pain (Acute) Lumbar spinal stenosis (Acute) Bilateral sacral insufficiency fracture with delayed healing (Acute) Traumatic ulcer of right lower extremity with fat layer exposed (Resolved) Influenza A virus subtype H1 present (Resolved) 1. Chronic back pain, lumbar spinal stenosis-status post decompression laminectomy L3-L4 06/17/2020- management per surgery. PT/OT. PRN pain management. CM consult for DC planning. 2. Hypertension-blood pressure currently elevated, possibly secondary to pain postoperatively. Previously on amlodipine, Lasix, metoprolol. Per home med list, it appears she is only taking metoprolol currently. States her medications were cut down at recent discharge from TCU. Will add amlodipine. Monitor BP. 3. Hyperlipidemia-no longer on statin. 4. Hypothyroidism-continue Synthroid regimen. DVT prophylaxis- SCDs This patient was seen by LEANN Jiang under the supervision of Dr. Hodgson. <Jennifer Hodgson - Last Filed: 06/17/20 20:21> - Physical Exam Vitals/I&O's: Vital Signs Temp Pulse Resp BP Pulse Ox 98.2 F 74 18 142/76 H 98 06/17/20 18:45 06/17/20 18:45 06/17/20 18:45 06/17/20 18:45 06/17/20 18:45 Oxygen Flow Rate (L/min) 6 Oxygen Delivery Method Room Air Weight: 83.8 kg Body Mass Index (BMI) 31.7 Finger Stick Blood Glucose 135 Intake and Output for Last 24 Hours 06/15/20 06/16/20 06/17/20 23:59 23:59 23:59 Intake Total 2715 / 2715 Output Total 490 / 490 Balance 2225 / 2225 Laboratory Results 06/17/20 10:39: POC Glucose 219 H 06/17/20 15:42: POC Glucose 153 H Current Medications Amlodipine Besylate (Amlodipine 10 Mg Tablet) 10 mg PO DAILY [facility] Last Admin: 06/17/20 17:57 Dose: 10 mg Documented by: Diazepam (Diazepam 5 Mg Tablet) 5 mg PO Q6H PRN PRN PRN Reason: Muscle Spasms Last Admin: 06/17/20 17:57 Dose: 5 mg Documented by: Enteral Nutritional Formula (Ensure Surgery 237 Ml Liquid) 237 ml PO TIDCM [facility] Last Admin: 06/17/20 18:01 Dose: 237 ml Documented by: Famotidine (Famotidine 20 Mg Tablet) 20 mg PO BID [facility] Lactated Ringer's () 1,000 mls @ 100 mls/hr IV .Q10H [facility] Last Admin: 06/17/20 15:47 Dose: 100 mls/hr Documented by: Cefazolin Sodium () 1 gm in 50 mls @ 100 mls/hr IV Q8H [facility] Stop: 06/18/20 04:29 Insulin Human Lispro (Insulin Lispro 100 Unit/Ml Insuln.Pen) 1 - 6 unit SC Q4H PRN PRN; Protocol PRN Reason: BG>/= 180, SEE PROTOCOL Last Admin: 06/17/20 10:57 Dose: 2 u Documented by: Levothyroxine Sodium (Levothyroxine 125 Mcg Tablet) 125 mcg PO DAILY@0600 [facility] Metoprolol Succinate (Metoprolol(Xl)Succ 50 Mg Tablet) 50 mg PO DAILY [facility] Morphine Sulfate (Morphine 4 Mg/Ml Syringe) 2 - 4 mg IV Q2H PRN PRN PRN Reason: Pain Score 6-10 Last Admin: 06/17/20 17:57 Dose: 4 mg Documented by: Ondansetron HCl (Ondansetron 4 Mg/2 Ml Vial) 4 mg IV Q8H PRN PRN PRN Reason: NAUSEA Senna/Docusate Sodium (Senna/Docusate Sodium 1 Tablet) 2 tablet PO BID [facility] Sodium Chloride (0.9% Nacl Peripheral Flush Adult/Peds) 5 - 15 ml IV UD PRN PRN Reason: SALINE FLUSH Last Admin: 06/17/20 17:57 Dose: 10 ml Documented by: Sodium Chloride (0.9% Saline Lock 10 Ml Syringe) 10 - 40 ml IV UD PRN PRN Reason: SALINE FLUSH Zolpidem Tartrate (Zolpidem Tartrate 5 Mg Tablet) 5 mg PO QHS PRN PRN PRN Reason: INSOMNIA Assessment/Plan This patient was seen in conjunction with Mali Granados NP. I have independently interviewed and examined the patient and reviewed pertinent historical, laboratory, and other data. Please refer to her note for patient's presentation, findings, and recommendations. Consult for postop medical management 74-year-old patient with past medical history of chronic low back pain, hypertension, hyperlipidemia, restless leg syndrome, hypothyroidism who is in the immediate postop period for laminectomy of L3-L4 on 06/17/20. Patient was seen and examined. She complains of pain in her low back. Denied any tingling or numbness in her lower extremity. Denied any dizziness or palpitations or chest pain. No immediate concerns per nursing Vitals reviewed, blood pressure slightly elevated likely secondary to pain Physical Exam: Gen: In pain, not pale, not jaundiced, alert oriented x3 CVS:HS I +II, regular, no murmurs RESP: Diminished at lung bases GI: BS present and normal, nontender, no palpable organs EXT:No edema Labs reviewed: ASSESSMENT: 1. Postop day #0 status post decompression laminectomy L3-L4 2. Elevated blood pressure secondary to pain 3. Hyperlipidemia 4. Hypothyroidism Meds reviewed Plan: Continue with pain control Surgical management by primary team Continue to monitor blood pressure, continue on metoprolol, amlodipine and Lasix Encourage use of incentive spirometer Inpatient E&M: 79044 Subs Hosp L2
[2020-06-17] MEDS: 0.9% NaCl Peripheral Flush Adult/Peds IV (17:57)
[2020-06-17] MEDS: amLODIPine 10 MG Tablet PO (17:57)
[2020-06-17] MEDS: diazePAM 5 MG Tablet PO (17:57)
[2020-06-17] MEDS: Morphine 4 MG/ML Syringe IV ×2 (17:57→20:14)
[2020-06-17] MEDS: Ensure Surgery 237 ML LIQUID PO (18:01)
[2020-06-17] MEDS: Cefazolin 1 GM/50 ML BAG IV (20:14)
[2020-06-17] MEDS: Famotidine 20 MG Tablet PO (20:16)
[2020-06-17] MEDS: Senna/Docusate Sodium 1 Tablet 2 TABLET PO (20:17)
[2020-06-18 00:45] VITALS: BMI 31.7
[2020-06-18] MEDS: Lactated Ringers 1,000 ML 100 ML IV (01:48)
[2020-06-18] MEDS: diazePAM 5 MG Tablet PO (01:48)
[2020-06-18 03:30] VITALS: BP 150/72; PULSE 86; RESP 18; TEMP 36.7; O2SAT 96
[2020-06-18] MEDS: Cefazolin 1 GM/50 ML BAG IV (04:41)
[2020-06-18 04:45] VITALS: BMI 31.7
[2020-06-18] MEDS: Levothyroxine 125 MCG Tablet PO (04:47)
[2020-06-18] MEDS: Ensure Surgery 237 ML LIQUID PO ×2 (07:49→11:18)
--- NOTE | 2020-06-18 08:23 | PN_ITS ---
Subjective: Chief complaint: Follow-up after consultation for postoperative medical management. Patient seen and examined. No acute events overnight. Apart from mild back pain when she moves, no other complaints. Back pain is well controlled. Her vital signs are stable. - Physical Exam Vitals/I&O's: Vital Signs Temp Pulse Resp BP Pulse Ox 98.0 F 86 18 150/72 H 96 06/18/20 03:30 06/18/20 03:30 06/18/20 03:30 06/18/20 03:30 06/18/20 03:30 Oxygen Flow Rate (L/min) 6 Oxygen Delivery Method Room Air Weight: 184 lb 11.958 oz Body Mass Index (BMI) 31.7 Finger Stick Blood Glucose 135 Intake and Output for Last 24 Hours 06/16/20 06/17/20 06/18/20 23:59 23:59 23:59 Intake Total 3210 / 3810 1736.67 / 1736.67 Output Total 490 / 1290 1215 / 1215 Balance 2720 / 2520 521.67 / 521.67 General: Alert, Oriented x3, Cooperative, No apparent distress HEENT: Atraumatic, PERRLA, EOMI, Normocephalic Oral: Moist Mucosa, No Gingival or Mucosal Lesions/ Ulcerations Neck: Supple, No JVD, Negative Carotid Bruits, Trachea Midline, Thyroid Normal Size and Texture Lungs: Clear to auscultation, Normal air movement, No rhonchi, No wheeze, No rales, Diminished Cardiovascular: Regular rate, Regular Rhythm, Normal S1, Normal S2, No murmurs Abdomen: Bowel Sounds Present, Soft, Non Tender, Non-Distended, No Hepato- splenomegaly Extremities: No clubbing, No cyanosis, No edema Skin: No rashes, No breakdown Lymphatic: No Cervical, Supraclavicular, or Inguinal Adenopathy Neurological: Cranial nerves II-XII grossly intact, Neuro grossly intact Psych/Mental Status: Normal Affect, Appropriate, Alert and oriented to time, place, person, mood and affect Laboratory Results 06/17/20 10:39: POC Glucose 219 H 06/17/20 15:42: POC Glucose 153 H Current Medications Hydrocodone Bitart/Acetaminophen (Hydrocodone/Apap 7.5-325/15ml 15 Ml Udc) 7.5 ml PO Q4H PRN PRN PRN Reason: Pain Score 1-10 Amlodipine Besylate (Amlodipine 10 Mg Tablet) 10 mg PO DAILY [facility] Last Admin: 06/17/20 17:57 Dose: 10 mg Documented by: Diazepam (Diazepam 5 Mg Tablet) 5 mg PO Q6H PRN PRN PRN Reason: Muscle Spasms Last Admin: 06/18/20 01:48 Dose: 5 mg Documented by: Enteral Nutritional Formula (Ensure Surgery 237 Ml Liquid) 237 ml PO TIDCM [facility] Last Admin: 06/18/20 07:49 Dose: 237 ml Documented by: Famotidine (Famotidine 20 Mg Tablet) 20 mg PO BID [facility] Last Admin: 06/17/20 20:16 Dose: 20 mg Documented by: Insulin Human Lispro (Insulin Lispro 100 Unit/Ml Insuln.Pen) 1 - 6 unit SC Q4H PRN PRN; Protocol PRN Reason: BG>/= 180, SEE PROTOCOL Last Admin: 06/17/20 10:57 Dose: 2 u Documented by: Levothyroxine Sodium (Levothyroxine 125 Mcg Tablet) 125 mcg PO DAILY@0600 [facility] Last Admin: 06/18/20 04:47 Dose: 125 mcg Documented by: Metoprolol Succinate (Metoprolol(Xl)Succ 50 Mg Tablet) 50 mg PO DAILY [facility] Morphine Sulfate (Morphine 4 Mg/Ml Syringe) 2 - 4 mg IV Q2H PRN PRN PRN Reason: Pain Score 6-10 Last Admin: 06/17/20 20:14 Dose: 4 mg Documented by: Ondansetron HCl (Ondansetron 4 Mg/2 Ml Vial) 4 mg IV Q8H PRN PRN PRN Reason: NAUSEA Senna/Docusate Sodium (Senna/Docusate Sodium 1 Tablet) 2 tablet PO BID [facility] Last Admin: 06/17/20 20:17 Dose: 2 tablet Documented by: Sodium Chloride (0.9% Nacl Peripheral Flush Adult/Peds) 5 - 15 ml IV UD PRN PRN Reason: SALINE FLUSH Last Admin: 06/17/20 17:57 Dose: 10 ml Documented by: Sodium Chloride (0.9% Saline Lock 10 Ml Syringe) 10 - 40 ml IV UD PRN PRN Reason: SALINE FLUSH Zolpidem Tartrate (Zolpidem Tartrate 5 Mg Tablet) 5 mg PO QHS PRN PRN PRN Reason: INSOMNIA Medical Necessity - Tobacco Use Smoking Status: Never smoker Assessment/Plan All Active Problems (Last Reviewed 05/19/20 @ 20:[address] Dusty Arana, DO) Debility (Acute) Intractable low back pain (Acute) Lumbar spinal stenosis (Acute) Bilateral sacral insufficiency fracture with delayed healing (Acute) This is a 74 years old female patient underwent decompression laminectomy of L3- L4 and I am seeing this patient in consultation for postoperative medical management. #1 status post decompression appendectomy of L3-L4: This was done for lumbar spinal stenosis/chronic back pain, postoperative day 1. She is on IV morphine and [place] as needed for pain. Her pain is well controlled. Her vital signs are stable. Routine blood work was unremarkable. Spine surgery on the case for management. Plan for PT OT. #2 hyperglycemia: Without history of diabetes. Blood sugar was 219 yesterday and 153. She had hemoglobin A1c done on July, and it was 6.3%. Plan: Check hemoglobin A1c, Accu-Cheks, sliding scale. #3 hypertension: Blood pressure stable, continue Norvasc and metoprolol. #4 hyperlipidemia: Currently, she is not on statins. #5 hypothyroidism: Stable, continue levothyroxine. #6 DVT prophylaxis: SCDs. This note was generated with [employer] dictation software. It may contain incorrect words, spelling, and punctuation that were not noted in checking the note before signing. Inpatient E&M: 30718 Subs Hosp L2
[2020-06-18 08:45] VITALS: BMI 31.7
[2020-06-18] MEDS: Senna/Docusate Sodium 1 Tablet 2 TABLET PO ×2 (08:53→21:05)
[2020-06-18] MEDS: Famotidine 20 MG Tablet PO ×2 (08:53→21:04)
[2020-06-18 08:56] VITALS: BP 153/74; PULSE 89
[2020-06-18] MEDS: amLODIPine 10 MG Tablet PO (08:56)
[2020-06-18] MEDS: Metoprolol(XL)Succ 50 MG Tablet PO (08:56)
[2020-06-18 09:30] VITALS: BP 153/74; PULSE 84; RESP 18; TEMP 36.3; O2SAT 96
[2020-06-18 09:51] LABS: Hemoglobin A1c 6.7 % (3.8-5.6)
--- NOTE | 2020-06-18 11:00 | CASEMGMT ---
ANITA CAMARA Face to Face with patient for initial transition planning/care coordination assessment. RN JAX introduced self and role at [facility]. Patient sitting in chair, alert and oriented. Patient willing to participate in assessment and is able to answer all questions appropriately. Care providers, pharmacy, and demographics verified. Patient wishes to discharge to TCU, ANITA CAMARA updated that currently there are no beds at this time. Patient may possible go home pending how she progresses with therapy. Patient states she has no further needs or concerns at this time. CM to follow for discharge planning needs that may arise. PCP: [facility] Specialists: You, spinal surgeon; Pete, pulmonology; Lashonda, ENT Preferred Pharmacy: [facility] Insurance: Melty Prescription Benefit: yes Living Will/HPOA: yes, daughter Octoberton LNOK: daughter Living Arrangements: Patient lives alone in a single story home with no steps to enter the home. Patient states she is independent and has lady who helps with cleaning and showering. Transportation: Daughter DME/HHC: Patient states she has shower chair, cane, walker, and grab bars at home. Patient has previously been to TCU in the past. Disposition Plan: TBD TCU vs HHC pending course of treatment. Christina BAH, RN, CM
[2020-06-18] MEDS: HYDROCODONE/APAP 7.5-325/15ML 15 ML UDC 7.5 ML PO (11:13)
[2020-06-18 11:26] LABS: Bedside Glucose 202 mg/dL (70-110)
[2020-06-18 12:45] VITALS: BMI 31.7
[2020-06-18] MEDS: Mag Hydrox/Al Hydrox/Simeth 30 ML UDC PO (12:58)
--- NOTE | 2020-06-18 13:44 | CASEMGMT ---
Addendum entered by Christina Gonzalez 06/18/20 16:02: SW spoke with physician. Pt will discharge tomorrow. SW updated physician pt is wanting TCU. SW placed a call to Rhianna in TCU and left message pt will be ready for discharge tomorrow. Plan: TCU pending pre-cert Original Note: Social Work Note SW updated that pt is interested in TCU at discharge. VENICE placed a call to Rhianna in TCU. TCU has no beds until Tuesday. VENICE provided referral. VENICE then received another call from Rhianna in TCU stating she may have a discharge today, could possibly take pt before Tuesday. SW to speak with physician. Plan: Likely TCU pending pre-cert Christina Gonzalez [employer], DIRECTOR SALES SUPPORT
[2020-06-18] MEDS: Ondansetron 4 MG/2 ML Vial IV ×2 (14:09→20:55)
[2020-06-18] MEDS: Morphine 4 MG/ML Syringe IV (14:11)
[2020-06-18] MEDS: Bisacodyl 10 MG Suppository RECTAL (15:12)
--- NOTE | 2020-06-18 16:04 | PCM.PN.BLA ---
Progress Note Kyleigh is seen on rounds on postop day #1. Doing fairly well regarding her back. Resting is dry her Hemovac is in place and it will be removed tomorrow. Over 50 cc out last night. Not been walking with assistance and her leg pain is all gone. This of course is the reason she had her surgery was for neurogenic claudication. Logically she is intact in both lower extremities. No dysesthesias. Having some abdominal issues now with cramping in her abdomen. She has been given a laxative and she is on the toilet now but still not able to go. Jenelle Juan to please contact the hospitalist for any further orders regarding this issue. Spine surgery progress is good. Tomorrow we will probably transfer her to the transitional care unit after I remove her Hemovac and change her dressing.
--- NOTE | 2020-06-18 16:15 | CASEMGMT ---
ANITA CAMARA in to discuss SHAH form with patient. RN JAX explained SHAH form, patient voiced understanding. Patient signed SHAH form and original filed in chart. Patient provided with copy of signed SHAH form. Patient had no further questions or concerns at this time.
[2020-06-18 16:22] VITALS: BP 139/73; PULSE 84; RESP 18; TEMP 37.1; O2SAT 96
[2020-06-18 16:25] LABS: Bedside Glucose 182 mg/dL (70-110)
[2020-06-18 16:45] VITALS: BMI 31.7
[2020-06-18] MEDS: Polyethylene Glycol 3350 17 GM PACKET PO ×2 (17:50→21:07)
[2020-06-18] MEDS: 0.9% NaCl Peripheral Flush Adult/Peds IV (20:55)
[2020-06-18 21:00] VITALS: BMI 31.7
[2020-06-18 21:02] VITALS: BP 147/66; PULSE 72; RESP 18; TEMP 36.6; O2SAT 99
[2020-06-18] MEDS: Zolpidem Tartrate 5 MG Tablet PO (21:04)
[2020-06-18 21:20] LABS: Bedside Glucose 170 mg/dL (70-110)
--- NOTE | 2020-06-18 21:30 | RAD_ITS ---
STUDY: X-RAY - ABDOMEN/PELVIS REASON FOR EXAM: Female, 74 years old. ABDOMINAL PAIN;VOMITTING,NAUSEA. POST OP LAMINECTOMY, LUMBAR DECOMPRESSION L3-4 TECHNIQUE: Flat and portable decubitus COMPARISON: None. FINDINGS: Normal visualized lung bases. There is mild ileus without definitive evidence for small bowel obstruction. There is no demonstrated free abdominal air. The visualized liver, spleen and kidneys are grossly normal in size and morphology. There are surgical clips overlying the right mid to lower abdomen.. Dorsal stimulator is noted within the thoracic spine. RAD/Abd Decub and/or Erect(Portabl IMPRESSION: Findings most consistent with ileus.. No evidence for small bowel obstruction or pneumoperitoneum Electronically Signed: Jean Carlos Marcano MD at 22:04 EST , Service support ,
[2020-06-19 01:05] VITALS: BP 156/89; PULSE 102; RESP 18; TEMP 36.4; O2SAT 97
[2020-06-19 02:05] VITALS: BP 154/65; PULSE 77; RESP 17; TEMP 37.1; O2SAT 97
[2020-06-19] MEDS: 0.45% Normal Saline 1,000 ML 100 ML IV ×2 (02:19→11:57)
[2020-06-19] MEDS: Levothyroxine 125 MCG Tablet PO (06:18)
[2020-06-19 06:25] LABS: Bedside Glucose 129 mg/dL (70-110)
[2020-06-19] MEDS: HYDROCODONE/APAP 7.5-325/15ML 15 ML UDC 7.5 ML PO ×2 (06:25→11:05)
[2020-06-19 08:01] VITALS: BP 145/75; PULSE 73; RESP 18; TEMP 36.8; O2SAT 98
[2020-06-19] MEDS: Ensure Surgery 237 ML LIQUID PO ×3 (08:02→16:07)
--- NOTE | 2020-06-19 08:21 | PN_ITS ---
Subjective: Chief complaint: Follow-up after consultation for postoperative medical management. Patient seen and examined. No acute events overnight. Yesterday evening, she had abdominal distention, bloating and discomfort. Today, she is feeling better. She is passing gas, no bowel movement. Denied nausea or vomiting. Back pain is doing fine, controlled. Her vital signs are stable. - Physical Exam Vitals/I&O's: Vital Signs Temp Pulse Resp BP Pulse Ox 98.2 F 73 18 145/75 H 98 06/19/20 08:01 06/19/20 08:01 06/19/20 08:01 06/19/20 08:01 06/19/20 08:01 Oxygen Flow Rate (L/min) 6 Oxygen Delivery Method Room Air Weight: 184 lb 11.958 oz Body Mass Index (BMI) 31.7 Finger Stick Blood Glucose 135 Intake and Output for Last 24 Hours 06/17/20 06/18/20 06/19/20 23:59 23:59 23:59 Intake Total 3210 / 3810 3486.67 / 3946.67 460 / 460 Output Total 490 / 1290 1615 / 2045 430 / 430 Balance 2720 / 2520 1871.67 / 1901.67 30 / 30 General: Alert, Oriented x3, Cooperative, No apparent distress HEENT: Atraumatic, PERRLA, EOMI, Normocephalic Oral: Moist Mucosa, No Gingival or Mucosal Lesions/ Ulcerations Neck: Supple, No JVD, Negative Carotid Bruits, Trachea Midline, Thyroid Normal Size and Texture Lungs: Clear to auscultation, Normal air movement, No rhonchi, No wheeze, No rales Cardiovascular: Regular rate, Regular Rhythm, Normal S1, Normal S2, PMI Normal Abdomen: Bowel Sounds Present, Soft, Non Tender, Non-Distended, No Hepato-splenomegaly, Obese Extremities: No clubbing, No cyanosis, No edema Skin: No rashes, No breakdown Lymphatic: No Cervical, Supraclavicular, or Inguinal Adenopathy Neurological: Cranial nerves II-XII grossly intact, Neuro grossly intact Psych/Mental Status: Normal Affect, Appropriate, Alert and oriented to time, place, person, mood and affect Laboratory Results 06/18/20 09:16: Hemoglobin A1c 6.7 H 06/18/20 11:15: POC Glucose 202 H 06/18/20 16:20: POC Glucose 182 H 06/18/20 21:13: POC Glucose 170 H 06/19/20 06:18: POC Glucose 129 H Current Medications Hydrocodone Bitart/Acetaminophen (Hydrocodone/Apap 7.5-325/15ml 15 Ml Udc) 7.5 ml PO Q4H PRN PRN PRN Reason: Pain Score 1-10 Last Admin: 06/19/20 06:25 Dose: 7.5 ml Documented by: Amlodipine Besylate (Amlodipine 10 Mg Tablet) 10 mg PO DAILY [facility] Last Admin: 06/18/20 08:56 Dose: 10 mg Documented by: Diazepam (Diazepam 5 Mg Tablet) 5 mg PO Q6H PRN PRN PRN Reason: Muscle Spasms Last Admin: 06/18/20 01:48 Dose: 5 mg Documented by: Enteral Nutritional Formula (Ensure Surgery 237 Ml Liquid) 237 ml PO TIDCM [facility] Last Admin: 06/19/20 08:02 Dose: 237 ml Documented by: Famotidine (Famotidine 20 Mg Tablet) 20 mg PO BID [facility] Last Admin: 06/18/20 21:04 Dose: 20 mg Documented by: Sodium Chloride () 1,000 mls @ 100 mls/hr IV .Q10H [facility] Last Admin: 06/19/20 02:19 Dose: 100 mls/hr Documented by: Insulin Human Lispro (Insulin Lispro 100 Unit/Ml Insuln.Pen) 0 unit SC Q6 [facility]; Protocol Last Admin: 06/19/20 06:19 Dose: Not Given Documented by: Levothyroxine Sodium (Levothyroxine 125 Mcg Tablet) 125 mcg PO DAILY@0600 [facility] Last Admin: 06/19/20 06:18 Dose: 125 mcg Documented by: Metformin HCl ([facility] Hcl 500 Mg [facility]) [facility] Metoprolol Succinate (Metoprolol(Xl)Succ 50 Mg Tablet) 50 mg PO DAILY [facility] Last Admin: 06/18/20 08:56 Dose: 50 mg Documented by: Morphine Sulfate (Morphine 4 Mg/Ml Syringe) 2 - 4 mg IV Q2H PRN PRN PRN Reason: Pain Score 6-10 Last Admin: 06/18/20 14:11 Dose: 4 mg Documented by: Ondansetron HCl (Ondansetron 4 Mg/2 Ml Vial) 4 mg IV Q6H PRN PRN PRN Reason: NAUSEA/VOMITING Last Admin: 06/18/20 20:55 Dose: 4 mg Documented by: Polyethylene Glycol (Polyethylene Glycol 3350 17 Gm Packet) 17 gm PO BID [facility] Last Admin: 06/18/20 21:07 Dose: 17 gm Documented by: Senna/Docusate Sodium (Senna/Docusate Sodium 1 Tablet) 2 tablet PO BID [facility] Last Admin: 06/18/20 21:05 Dose: 2 tablet Documented by: Simethicone (Simethicone 80 Mg Tablet) 80 mg PO BID [facility] Last Admin: 06/18/20 21:07 Dose: 80 mg Documented by: Sodium Chloride (0.9% Nacl Peripheral Flush Adult/Peds) 5 - 15 ml IV UD PRN PRN Reason: SALINE FLUSH Last Admin: 06/18/20 20:55 Dose: 10 ml Documented by: Sodium Chloride (0.9% Saline Lock 10 Ml Syringe) 10 - 40 ml IV UD PRN PRN Reason: SALINE FLUSH Zolpidem Tartrate (Zolpidem Tartrate 5 Mg Tablet) 5 mg PO QHS PRN PRN PRN Reason: INSOMNIA Last Admin: 06/18/20 21:04 Dose: 5 mg Documented by: Medical Necessity - Tobacco Use Smoking Status: Never smoker Assessment/Plan All Active Problems (Last Reviewed 05/19/20 @ 20:[address] Dusty Arana, ) Debility (Acute) Intractable low back pain (Acute) Lumbar spinal stenosis (Acute) Bilateral sacral insufficiency fracture with delayed healing (Acute) This is a 74 years old female patient underwent decompression laminectomy of L3- L4 and I am seeing this patient in consultation for postoperative medical management. #1 status post decompression appendectomy of L3-L4: This was done for lumbar spinal stenosis/chronic back pain, postoperative day 2. Remained on IV morphine and hydrocodone as needed for pain. Her pain is well controlled. Her vital signs are stable. Routine blood work was unremarkable. Spine surgery on the case for management. Plan for PT OT, ambulate. #2 Newly diagnosed type 2 diabetes mellitus: Hemoglobin A1c was 6.7%. Blood sugar has been in the range of 1 50-2 100s. Plan to start her on metformin 500 g p.o. twice daily, nutrition consult, diabetic education. #3 hypertension: Blood pressure stable, continue Norvasc and metoprolol. #4 hyperlipidemia: Currently, she is not on statins. #5 hypothyroidism: Stable, continue levothyroxine. #6 DVT prophylaxis: SCDs. This note was generated with [employer] software. It may contain incorrect words, spelling, and punctuation that were not noted in checking the note before signing. Inpatient E&M: 68938 Subs Hosp L2
--- NOTE | 2020-06-19 08:42 | CASEMGMT ---
Addendum entered by Christina Gonzalez 06/19/20 16:06: VENICE placed green sheet on the chart in the event pre-cert is obtained. SW leaving for the day. VENICE placed a call to Rhianna in TCU and left message to call [facility] in the event pre-cert is obtained. Plan: TCU pending pre-cert [facility] Velazquez Addendum entered by Christina Gonzalez 06/19/20 15:21: VENICE in to speak with pt. VENICE introduced self and role at [facility]. Pt is alert and orientated. SW updated pt that TCU has a bed for pt, SW is just waiting for pre-cert. Pt states understanding. Plan: TCU pending pre-cert Original Note: Social Work Note SW received message from Rhianna in TCU stating she submitted pre-cert today. Rhianna states pt will need another COVID test. Plan: TCU pending pre-cert LA Velazquez
[2020-06-19 09:13] VITALS: PULSE 73
[2020-06-19] MEDS: Metoprolol(XL)Succ 50 MG Tablet PO (09:13)
[2020-06-19] MEDS: Famotidine 20 MG Tablet PO (09:13)
[2020-06-19] MEDS: amLODIPine 10 MG Tablet PO (09:13)
[2020-06-19] MEDS: Senna/Docusate Sodium 1 Tablet 2 TABLET PO (09:13)
[2020-06-19] MEDS: Polyethylene Glycol 3350 17 GM PACKET PO (09:17)
[2020-06-19] MEDS: metFORMIN HCl 500 MG Tablet PO ×2 (11:05→16:07)
[2020-06-19 12:01] LABS: Bedside Glucose 217 mg/dL (70-110)
[2020-06-19 12:05] LABS: Probe Check PASS; Specimen Processing Control PASS
[2020-06-19 14:40] VITALS: BP 159/81; PULSE 86; RESP 16; TEMP 36.8; O2SAT 97
[2020-06-19 15:15] VITALS: PULSE 85; RESP 20
[2020-06-19] MEDS: Albuterol 2.5 MG/3 ML VIAL.NEB. INHALATION (15:15)
[2020-06-19 16:36] LABS: Bedside Glucose 188 mg/dL (70-110)
== END 2020-06-19 17:45 | disposition skilled nursing facility (03) ==
LOC: MS3 20:13
PROVIDERS: Hospitalist; Admitting Provider Orthopaedic Surgery; PCP Family Medicine Geriatric Medicine; Referring Provider Orthopaedic Surgery; Visit Provider Orthopaedic Surgery
PROC: (CPT 63030; principal; 2020-06-17 11:30)
DX: M48.061 Spinal stenosis, lumbar region without neurogenic claudication (principal); I10 Essential (primary) hypertension; E78.5 Hyperlipidemia, unspecified; K21.9 Gastro-esophageal reflux disease without esophagitis; J45.909 Unspecified asthma, uncomplicated; Z79.899 Other long term (current) drug therapy; Z79.51 Long term (current) use of inhaled steroids; G25.81 Restless legs syndrome; G89.29 Other chronic pain; E03.9 Hypothyroidism, unspecified; R94.31 Abnormal electrocardiogram [ECG] [EKG]; Z86.010 Personal history of colon polyps; Z86.2 Personal history of diseases of the blood and blood-forming organs and certain disorders involving the immune mechanism
CPT/HCPCS: 00670; 63047; 36415; 72020; 74019; 82962; 83036; 86703; 86704; 86705; 86706; 86708; 86709; 86803; 87340; 87426; 87635; 93005; 94640; 96361; 96365; 96366; 96375; 96376; 97162; 97165; 97530; 99218; 99251; C9803; J7120; A4216; G0378; G0379; G0463; J2405; U0002

== ENCOUNTER 2020-06-19 18:25 | Inpatient (IN) | payer MEDICARE, SELFPAY ==
[2020-06-17 11:09] VITALS: BMI 31.7
--- NOTE | 2020-06-19 19:58 | HP.PCM_ITS ---
Problem List (1) Hypertension Status: Chronic (2) Diabetes mellitus Status: Chronic (3) Debility Status: Acute (4) Lumbar spinal stenosis Status: Chronic (5) Asthma Status: Chronic (6) Hypothyroidism Status: Chronic History of Present Illness Date of Admission: 06/19/20 Chief Complaint: Here for rehabilitation, strengthening, prior to discharge home alone. The patient is a 74 year old Female with past medical history significant for lumbar spinal stenosis. 06/17/20 Orthopedics spine performed decompression laminectomy L3-4. 06/18/20 X-ray abdomen showed ileus. IV Morphine, Hydrocodone for pain. PT/OT for [facility]. Metformin 500MG BID for new onset Type 2 Diabetes Mellitus, A1c 6.7%. 06/19/20 Admit to TCU with debility, here for rehabilitation, strengthening, prior to discharge home alone. Past Medical History Past Medical History (Chronic Problems): Chronic Problems (Last Reviewed 05/19/20 @ 20:[address] Dusty Arana, DO) Hypertension (Chronic) Diabetes mellitus (Chronic) Lumbar spinal stenosis (Chronic) Restless leg syndrome (Chronic) Vitamin B12 deficiency (Chronic) Allergic rhinitis (Chronic) GERD (gastroesophageal reflux disease) (Chronic) Asthma (Chronic) Benign hypertension (Chronic) HLD (hyperlipidemia) (Chronic) Hypothyroidism (Chronic) Chronic low back pain (Chronic) Seasonal allergies (Chronic) Orthostatic hypotension (Chronic) Medical History: Medical History (Last Reviewed 05/19/20 @ 20:[address] Dusty Arana, DO) Asthma J45.909 B12 deficiency E53.8 Cataract H26.9 Cataracts, bilateral H26.9 GERD (gastroesophageal reflux disease) K21.9 History of colon polyps Z86.010 Hyperlipidemia E78.5 RLS (restless legs syndrome) G25.81 Chronic back pain M54.9, G89.29 HTN (hypertension) I10 Allergies clindamycin Allergy (Mild, Verified 06/09/20 10:06) rash acetaminophen [From Tylenol-Codeine #3] Adverse Reaction (Severe, Verified 06/09/20 10:06) Nausea codeine phosphate [From Tylenol-Codeine #3] Adverse Reaction (Severe, Verified 06/09/20 10:06) Nausea Home Medications: Ambulatory Orders Medication Instructions Recorded Hydrocodone/Acetaminophen 0.5 tab PO TID PRN 09/04/18 [Hydrocodone-Acetamin 7.5-325] Metoprolol Succinate [Toprol Xl] 50 mg PO DAILY 05/19/20 Acetaminophen [Tylenol] 1,000 mg PO PRN PRN 06/02/20 Albuterol IH (ProAir) [Proair Hfa 1 - 2 puff INHALATION Q6H PRN PRN 06/02/20 (SP)Vent Pts] levothyroxine 125 mcg tablet 125 mcg PO DAILY tab 06/09/20 Fluticasone/Vilanterol [Breo 1 ea IH DAILY 06/17/20 Ellipta Inhaler] metFORMIN HCl [Glucophage] 500 mg PO BIDCM 06/19/20 Surgical History: Surgical History (Last Reviewed 05/19/20 @ 20:[address] Dusty Arana DO) History of appendectomy Z90.49 History of bilateral carpal tunnel release Z98.890 History of carpal tunnel release Z98.890 History of colonoscopy Onset Date: ~2012 Z98.890 History of hysterectomy Z90.710 History of loop recorder Z98.890 Hx of tonsillectomy Z90.89 history of pain stimulator Surgical History: appendectomy, cataract, hysterectomy, tonsillectomy, - - Tooth extraction, Left shoulder arthroscopic surgery, bilateral carpal tunnel release, Loop recorder, spinal cord stimulator. 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 Dusty Arana DO) Mother Heart valve disorder Hypertension Heart disease Father Pneumococcal pneumonia CVA (cerebral vascular accident) Heart disease Myocardial infarction History Items: Heart Disease Paternal Family History: Family History (Last Reviewed 05/19/20 @ 20:[address] Dusty Arana DO) Mother Heart valve disorder Hypertension Heart disease Father Pneumococcal pneumonia CVA (cerebral vascular accident) Heart disease Myocardial infarction History Items: Heart Disease Review of Systems Constitutional: Denies: Chills, Fever, Weight Change HEENT: Denies: Head Aches, Sinus Congestion, Sinus Drainage Cardiovascular: Denies: Chest Pain, Palpitations Respiratory: Denies: Cough, Shortness of breath at rest, Sputum production Gastrointestinal: Denies: Abdominal Pain, Nausea, Vomiting Genitourinary: Denies: Dysuria Musculoskeletal: Denies: Joint Pain, Joint Tenderness Skin: Denies: Rash, Wounds Neurological: Denies: Numbness, Tingling, Focal weakness Psychiatric: Denies: Anxiety, Depression, Homicidal Ideations, Suicidal Ideations Hematologic/ Lymphatic: Denies: Easy Bruising, Easy Bleeding VTE Information - Inpt Only VTE Present on Admission: No VTE Mechan Device Prophylaxis: Knee High ADRY Hose VTE Pharm Prophylaxis ordered?: Yes Patient Problems: Active and Suspected Problems (Last Reviewed 05/19/20 @ 20:[address] Dusty Arana, DO) Debility (Acute) - Physical Exam Vitals/I&O's: Body Mass Index (BMI) 31.7 Finger Stick Blood Glucose 135 General: Alert, Oriented x3, Cooperative HEENT: Atraumatic, PERRLA, EOMI, Normocephalic Neck: Supple, No JVD, Negative Carotid Bruits Lungs: Clear to auscultation, Normal air movement Cardiovascular: Regular rate, No murmurs Abdomen: Bowel Sounds Present, Soft, Non Tender Extremities: No edema, Capillary Refill Less than 3 Seconds Skin: No rashes, No breakdown Musculoskeletal: No Tenderness to Palpation of Joints or Extremities Neurological: Cranial nerves II-XII grossly intact Psych/Mental Status: Normal Affect, Appropriate Current Medications Acetaminophen (Acetaminophen 500 Mg Tablet) 1,000 mg PO PRN PRN PRN Reason: Pain 1-10 or Fever Albuterol Sulfate (Albuterol Ih 8.5 Gm (Proair) Inhaler (200 Puffs)) 1 - 2 puff INHALATION Q6H PRN PRN PRN Reason: SOB &/OR WHEEZING Levothyroxine Sodium (Levothyroxine 125 Mcg Tablet) 125 mcg PO DAILY DICK Metformin HCl (Metformin Hcl 500 Mg Tablet) 500 mg PO BIDCM [facility] Metoprolol Succinate (Metoprolol(Xl)Succ 50 Mg Tablet) 50 mg PO DAILY [facility] Non-Formulary Medication (Fluticasone/Vilanterol) 1 ea IH DAILY [facility] Non-Formulary Medication (Hydrocodone/Acetaminophen [Hydrocodone-Acetamin 7.5- 325]) 0.5 tab PO TID PRN PRN Reason: Pain Score 1-10 Tuberculin PPD (Tuberculin,Purif.Prot.Deriv. 50 Tu/Ml Vial) 5 tu ID X1 ONE Stop: 06/20/20 10:01 Tuberculin PPD (Tuberculin,Purif.Prot.Deriv. 50 Tu/Ml Vial) 5 tu ID X1 ONE Stop: 06/27/20 10:01 Assessment/Plan All Active Problems (Last Reviewed 05/19/20 @ 20:[address] Dusty Arana, DO) Debility (Acute) Intractable low back pain (Acute) Bilateral sacral insufficiency fracture with delayed healing (Acute) 74 year old female with below past medical history hospitalized for decompression laminectomy L3-4 06/17/20, postoperative course complicated by new onset Type 2 Diabetes Mellitus, admitted to TCU with debility, here fo rehabilitation, strengthening, prior to discharge home alone. * Debility - PT/OT. * Pain - Tylenol 1000MG Q6H PRN pain (1-3), Oxycodone 2.5MG Q4H PRN pain (4-10). * Bowel - Miralax 17GM daily, Senna/colace 1 tablet BID, MOM 30ML daily PRN, Dulcolax 10MG MI daily PRN. * Adult immunization - Administer Prevnar 13, Pneumovax 23, Fluzone as appropriate. * DVT prophylaxis - Lovenox 40MG SC daily. * Asthma - Breo 1 puff daily (Or [facility] formulary equivalent), Albuterol 2 puffs Q4H PRN. * Hypothyroidism - Levothyroxine 125MCG daily. * Diabetes Mellitus II - A1c 6.7, stop Metformin, monitor blood sugars. * Hypertension - Metoprolol succinate 50MG daily.
[2020-06-19 21:36] VITALS: BMI 31.7
[2020-06-19 21:42] VITALS: BMI 31.8
[2020-06-19] MEDS: Acetaminophen 500 MG Tablet 1000 MG PO (22:10)
[2020-06-19 23:01] LABS: Bedside Glucose 149 mg/dL (70-110)
[2020-06-20 04:33] VITALS: BP 167/84; PULSE 81; RESP 18; TEMP 36.2; O2SAT 96
[2020-06-20] MEDS: Enoxaparin 40 MG/0.4 ML Syringe SC (04:39)
[2020-06-20] MEDS: Polyethylene Glycol 3350 17 GM PACKET PO (04:39)
[2020-06-20] MEDS: Levothyroxine 125 MCG Tablet PO (04:40)
[2020-06-20] MEDS: Senna/Docusate Sodium 1 Tablet PO ×2 (04:40→17:29)
[2020-06-20 04:42] VITALS: BP 167/84; PULSE 81
[2020-06-20] MEDS: Metoprolol(XL)Succ 50 MG Tablet PO (04:42)
[2020-06-20] MEDS: Acetaminophen 500 MG Tablet 1000 MG PO (04:43)
[2020-06-20 05:46] LABS: Absolute Lymphocyte Count 1.67 X10^3/uL (0.83-4.51); Absolute Neutrophil Count 8.4 X10^3/uL (2.0-7.7); Basophil# 0.03 X10^3/uL; Basophil% 0.3 % (0-1); Eosinophil# 0.07 X10^3/uL; Eosinophils% 0.6 % (0-5); Hematocrit 34.8 % (37-47); Hemoglobin 11.3 g/dL (12.0-15.0); Lymphocyte # 1.67 X10^3/ul (4.0); Lymphocyte % 14.6 % (19-41); Mean Corp Hgb Conc 32.5 g/dL (32-36); Mean Corpuscular Hgb 35.4 pg (27.0-32.0); Mean Corpuscular Volume 109.1 fL (81-99); Monocyte# 1.22 X10^3/uL; Monocyte% 10.7 % (0-10); NRBC Flagged by Analyzer 0 % (0-5); Neutrophil # 8.37 X10^3/uL (2.7-7.7); Neutrophil % 73.1 % (47-70); Platelet Count 270 K/mm3 (150-450); RBC Distribution Width CV 13.8 % (11.6-14.6); RBC Distribution Width SD 56.1 fl (35.1-43.9); Red Blood Count 3.19 M/mm3 (4.2-5.4); White Blood Count 11.4 K/mm3 (4.4-11.0)
[2020-06-20 06:13] LABS: Anion Gap 6 (5-15); BUN 15 mg/dL (7-18); Calcium,Total 8.5 mg/dL (8.5-10.1); Chloride 100 mmol/L (98-107); Creatinine, Serum 0.56 mg/dL (0.55-1.02); EST Glomerular Filtration Rate 113 mL/min (>60); Est Glom Filt Rate - Afr Amer 136 mL/min (>60); Estimated Creatinine Clearance 41.33 ml/min; Glucose 143 mg/dL (74-106); Potassium 3.5 mmol/L (3.5-5.1); Sodium Level 135 mmol/L (136-145)
[2020-06-20 06:31] LABS: Bedside Glucose 133 mg/dL (70-110)
[2020-06-20 07:15] VITALS: O2SAT 95
[2020-06-20] MEDS: oxyCODONE 5 MG Tablet 2.5 MG PO ×2 (09:03→14:37)
[2020-06-20] MEDS: Fluticasone/Salmeterol 232-14 Inhaler 1 PUFF IH ×2 (09:34→17:29)
[2020-06-20 11:06] LABS: Bedside Glucose 127 mg/dL (70-110)
[2020-06-20] MEDS: Tuberculin,Purif.prot.deriv. 50 TU/ML Vial 5 ML ID (11:14)
--- NOTE | 2020-06-20 11:31 | CASEMGMT ---
Social Work Discussed code status with pt. Pt confirmed full code. No changes to MOLST form. Pt has hired assistance every other day to assist with ADLs and IADLs. The goal is for pt to return home with assistance. FERCHO Harper
--- NOTE | 2020-06-20 12:49 | RAD_ITS ---
STUDY: X-RAY - ABDOMEN/PELVIS REASON FOR EXAM: Female, 74 years old. Abdominal pain/constipation. TECHNIQUE: Single AP view of the abdomen / pelvis. COMPARISON: Comparison is made with prior study dated 06/18/2020. FINDINGS: Gas is seen throughout the colon. The visualized liver, spleen and kidneys are grossly normal in size and morphology. Normal soft tissue structures. There are diffuse degenerative changes of the visualized lumbar spine. RAD/Abdomen Single View IMPRESSION: Gas is seen throughout the colon. Electronically Signed: Gonzalo Jordan, at 14:09 EST , Service support ,
--- NOTE | 2020-06-20 12:53 | NURSING ---
Patient complaining of severe abdominal pain. Dr. Culver gave orders for KUB and milk of magnesia. Patient down to x ray at this time with staff member via wheelchair.
[2020-06-20] MEDS: Magnesium Hydroxide 30 ML UDC PO (13:57)
[2020-06-20 13:59] VITALS: PULSE 91; RESP 22; O2SAT 98
[2020-06-20 14:13] VITALS: BP 218/91; PULSE 91; RESP 24; TEMP 36.9; O2SAT 98
[2020-06-20 16:45] LABS: Bedside Glucose 158 mg/dL (70-110)
[2020-06-20 22:01] LABS: Bedside Glucose 143 mg/dL (70-110)
[2020-06-21] MEDS: Acetaminophen 500 MG Tablet 1000 MG PO ×3 (01:52→20:58)
[2020-06-21 05:59] VITALS: BP 164/84; PULSE 79; RESP 18; TEMP 36.3; O2SAT 95
[2020-06-21] MEDS: Fluticasone/Salmeterol 232-14 Inhaler 1 PUFF IH ×2 (06:02→16:12)
[2020-06-21 06:03] VITALS: BP 164/84; PULSE 79
[2020-06-21] MEDS: Metoprolol(XL)Succ 50 MG Tablet PO (06:03)
[2020-06-21] MEDS: Enoxaparin 40 MG/0.4 ML Syringe SC (06:03)
[2020-06-21] MEDS: Levothyroxine 125 MCG Tablet PO (06:03)
[2020-06-21 06:35] LABS: Bedside Glucose 132 mg/dL (70-110)
[2020-06-21] MEDS: Bisacodyl 10 MG Suppository RECTAL (08:26)
--- NOTE | 2020-06-21 08:30 | NURSING ---
pt c/o not spilling anything on floor but slippers have had to be changed couple time. This nurse assessed legs and noted clear fluid leaking from RT LE, ABD and NICK wraps applied.
--- NOTE | 2020-06-21 08:37 | NURSING ---
Addendum entered by Mali Seo 06/21/20 12:56: Pt ambulated in room with this nurse, denies ABD pain at this time. Has been up to BSC several times to try and have a bowel movement, cont to monitor. Original Note: PT C/O ABD PAIN THIS AM. BOWEL SOUNDS HYPERACTIVE. DR ROBERTS UPDATED, NEW ORDER TO GIVE ANOTHER PRN MILK OF MAG AND ADMINISTER ANOTHER SSEX1. RECTAL SUPPOSITORY GIVEN AT THIS TIME, AWAITING PHARMACY TO SEND UP MILK OF MAG- NONE AVAILABLE IN [facility]. PT NOT WANTING SSE, THAT IS SO MEAN, I DONT DO WELL WITH THOSE
[2020-06-21] MEDS: Magnesium Hydroxide 30 ML UDC PO (08:59)
[2020-06-21] MEDS: 0.9% Normal Saline 1,000 ML 75 ML IV ×2 (09:44→22:27)
[2020-06-21 11:25] LABS: Bedside Glucose 127 mg/dL (70-110)
--- NOTE | 2020-06-21 15:33 | NURSING ---
SSE given with XL results, pt reports feeling better, denies ABD pain
[2020-06-21] MEDS: Senna/Docusate Sodium 1 Tablet PO (16:12)
[2020-06-21 16:45] VITALS: BP 163/98; PULSE 89; RESP 18; TEMP 36; O2SAT 95
[2020-06-21 17:26] LABS: Bedside Glucose 150 mg/dL (70-110)
[2020-06-21 21:50] LABS: Bedside Glucose 137 mg/dL (70-110)
[2020-06-22 05:51] VITALS: BP 181/75; PULSE 83; RESP 16; TEMP 36.8; O2SAT 98
[2020-06-22] MEDS: Polyethylene Glycol 3350 17 GM PACKET PO (05:55)
[2020-06-22 05:57] VITALS: BP 181/75; PULSE 83
[2020-06-22] MEDS: Metoprolol(XL)Succ 50 MG Tablet PO (05:57)
[2020-06-22] MEDS: Levothyroxine 125 MCG Tablet PO (05:57)
[2020-06-22] MEDS: Enoxaparin 40 MG/0.4 ML Syringe SC (05:57)
[2020-06-22] MEDS: Fluticasone/Salmeterol 232-14 Inhaler 1 PUFF IH ×2 (05:58→16:24)
[2020-06-22] MEDS: Senna/Docusate Sodium 1 Tablet PO ×2 (05:58→16:24)
[2020-06-22 06:26] LABS: Bedside Glucose 126 mg/dL (70-110)
[2020-06-22 11:05] LABS: Bedside Glucose 124 mg/dL (70-110)
[2020-06-22] MEDS: 0.9% Normal Saline 1,000 ML 75 ML IV (12:01)
--- NOTE | 2020-06-22 13:01 | NURSING ---
Addendum entered by Mali Seo 06/22/20 15:22: MOM and SSE given, pt's belching has stopped. Original Note: dr parra notified of pt with frequent belching, BS hypoactive on RT and hyperactive LT, abd slightly firm and bloated. new order to administer Milk of mag and SSE x1. pt did not eat clear liquid lunch either.
[2020-06-22] MEDS: Magnesium Hydroxide 30 ML UDC PO (13:21)
[2020-06-22] MEDS: Furosemide 40 MG/4 ML Vial IV (13:21)
[2020-06-22] MEDS: 0.9% Saline Lock 10 ML Syringe IV (13:21)
[2020-06-22 14:56] VITALS: BP 166/93; PULSE 80; RESP 18; TEMP 36.5; O2SAT 97
[2020-06-22] MEDS: Acetaminophen 500 MG Tablet 1000 MG PO ×2 (16:28→22:45)
[2020-06-22 17:20] LABS: Bedside Glucose 158 mg/dL (70-110)
[2020-06-22 21:26] LABS: Bedside Glucose 128 mg/dL (70-110)
--- NOTE | 2020-06-22 22:12 | NURSING ---
TC from daughter requesting info re pt obtaining several enemas, wanted to know can she had a surgery for this instead because these enemas are making her very weak, explained reasons for enemas and results, also notified of new medication changes including stopping iv fluids, states understands
[2020-06-22] MEDS: MELATONIN 10 MG TABLET PO (22:34)
--- NOTE | 2020-06-22 23:40 | NURSING ---
Clear fluid cont to leak from lower ext, no open areas noted, ble elevated at all times, pt laid down for sleep, began belching , c.o epegatric discomfort, given sprite, cont to belch, pt states feels anxious and wants to sit up in chair for night, states gets panicky in bed,
--- NOTE | 2020-06-23 03:44 | NURSING ---
Up to br, states cant sleep in bed, transfered to bed, c/o claustrophobia, voiced concern with belching, stomack pain and passing flauts, , clear-yellow fluids from scott lower ext, encouraged to keep feet elevated, feet elevated and chux placed to absorb fluids, bottom heel portion of foot red and non blancable, requesting to talk with Dr Culver, message left
[2020-06-23 05:01] VITALS: BP 173/82; PULSE 78; RESP 18; TEMP 37; O2SAT 97
[2020-06-23 05:05] VITALS: BP 173/82; PULSE 78
[2020-06-23] MEDS: Polyethylene Glycol 3350 17 GM PACKET PO (05:05)
[2020-06-23] MEDS: Senna/Docusate Sodium 1 Tablet PO ×2 (05:05→16:59)
[2020-06-23] MEDS: Metoprolol(XL)Succ 50 MG Tablet PO (05:05)
[2020-06-23] MEDS: Enoxaparin 40 MG/0.4 ML Syringe SC (05:05)
[2020-06-23] MEDS: Levothyroxine 125 MCG Tablet PO (05:05)
[2020-06-23] MEDS: Acetaminophen 500 MG Tablet 1000 MG PO (05:05)
[2020-06-23] MEDS: Fluticasone/Salmeterol 232-14 Inhaler 1 PUFF IH ×2 (05:06→16:59)
[2020-06-23 06:26] LABS: Bedside Glucose 146 mg/dL (70-110)
[2020-06-23 11:31] LABS: Bedside Glucose 128 mg/dL (70-110)
--- NOTE | 2020-06-23 11:34 | PCM.PN.RX ---
<ManuelRemedios M - Last Filed: 06/23/20 11:34> Progress Note - Pharmacy Subjective: TCU ADMISSION Objective: Allergies clindamycin Allergy (Mild, Verified 06/09/20 10:06) rash acetaminophen [From Tylenol-Codeine #3] Adverse Reaction (Severe, Verified 06/09/20 10:06) Nausea codeine phosphate [From Tylenol-Codeine #3] Adverse Reaction (Severe, Verified 06/09/20 10:06) Nausea Current Medications Generic Name Dose Route Start Last Admin Trade Name Freq PRN Reason Stop Dose Admin Acetaminophen 1,000 mg 06/19/20 20:10 06/23/20 05:05 Acetaminophen 500 Mg Tablet PO 1,000 mg Q6H PRN Administration Pain Score 1-3 Albuterol Sulfate 2 puff 06/19/20 20:10 06/22/20 15:37 Albuterol Ih 8.5 Gm (Proair) Inhaler (200 Puffs) INHALATION 2 puff Q4H PRN Administration SOB &/OR WHEEZING Bisacodyl 10 mg 06/19/20 20:09 06/21/20 08:26 Bisacodyl 10 Mg Suppository RECTAL 10 mg DAILY PRN Administration Constipation Enoxaparin Sodium 40 mg 06/20/20 06:00 06/23/20 05:05 Enoxaparin 40 Mg/0.4 Ml Syringe SC 40 mg DAILY@0600 DICK Administration Levothyroxine Sodium 125 mcg 06/20/20 06:00 06/23/20 05:05 Levothyroxine 125 Mcg Tablet PO 125 mcg DAILY DICK Administration Magnesium Hydroxide 30 ml 06/19/20 20:09 06/22/20 13:21 Magnesium Hydroxide 30 Ml Udc PO 30 ml DAILY PRN Administration Constipation Melatonin 10 mg 06/22/20 22:00 06/22/20 22:34 Melatonin 10 Mg Tablet PO 10 mg QHS DICK Administration Metoprolol Succinate 50 mg 06/20/20 06:00 06/23/20 05:05 Metoprolol(Xl)Succ 50 Mg Tablet PO 50 mg DAILY DICK Administration Oxycodone HCl 2.5 mg 06/20/20 08:13 06/20/20 14:37 Oxycodone 5 Mg Tablet PO 2.5 mg Q4H PRN PRN Administration Pain Score 4-10 Polyethylene Glycol 17 gm 06/20/20 06:00 06/23/20 05:05 Polyethylene Glycol 3350 17 Gm Packet PO 17 gm DAILY DICK Administration Fluticasone/Salmeterol 1 puff 06/20/20 07:00 06/23/20 05:06 Fluticasone/Salmeterol 232-14 Inhaler IH 1 puff Q12 DICK Administration Senna/Docusate Sodium 1 tablet 06/20/20 06:00 06/23/20 05:05 Senna/Docusate Sodium 1 Tablet PO 1 tablet BID DICK Administration Simethicone 80 mg 06/23/20 09:00 06/23/20 10:03 Simethicone 80 Mg Tablet PO 06/28/20 09:01 80 mg PCHS DICK Administration Sodium Chloride 10 - 40 ml 06/21/20 09:01 06/22/20 13:21 0.9% Saline Lock 10 Ml Syringe IV 20 ml UD PRN Administration SALINE FLUSH Tuberculin PPD 5 tu 06/27/20 10:00 Tuberculin,Purif.Prot.Deriv. 50 Tu/Ml Vial ID 06/27/20 10:01 X1 ONE Problem List (Last Reviewed 05/19/20 @ 20:[address] Dusty Arana, DO) Hypertension (Chronic) Diabetes mellitus (Chronic) Debility (Acute) Lumbar spinal stenosis (Chronic) Asthma (Chronic) Hypothyroidism (Chronic) Vital Signs Temp Pulse Resp BP Pulse Ox 98.6 F 78 18 173/82 H 97 06/23/20 05:01 06/23/20 05:05 06/23/20 05:01 06/23/20 05:05 06/23/20 05:01 Oxygen Delivery Method Room Air Weight: 83.9 kg Body Mass Index (BMI) 31.7 Finger Stick Blood Glucose 135 Sodium 135 mmol/L (136-145) L 06/20/20 05:10 Potassium 3.5 mmol/L (3.5-5.1) 06/20/20 05:10 Chloride 100 mmol/L (98-107) 06/20/20 05:10 Carbon Dioxide 29.0 mmol/L (21.0-32.0) 06/20/20 05:10 Anion Gap 6 (5-15) 06/20/20 05:10 BUN 15 mg/dL (7-18) 06/20/20 05:10 Creatinine 0.56 mg/dL (0.55-1.02) 06/20/20 05:10 Est GFR (MDRD) Af Amer 136 mL/min (>60) 06/20/20 05:10 Est GFR (MDRD) Non-Af 113 mL/min (>60) 06/20/20 05:10 BUN/Creatinine Ratio 27.0 RATIO (10-20) H 06/20/20 05:10 Glucose 143 mg/dL (74-106) H 06/20/20 05:10 Assessment/Plan: 1. Pain: Tylenol 1000mg PO Q6h PRN Pain 1-09/17, Oxycodone 2.5mg PO Q4h PRN pain 4-04/19. Please continue to monitor for increased/decreased S/S pain, PRN medication usage. 2. Hypertension: Toprol XL 50mg PO QHS. Please continue to monitor BP, pulse. 3. Hypothyroidism: Synthroid 125mcg PO Daily. Please continue to monitor TSH levels as clinically indicated. 4. Asthma: AirDuo 232/14 1 puff INH BID, Proair 2 puff Q4h PRN SOB/Wheezing. Please continue to monitor for S/S asthma exacerbation/progression of disease, RR, SOB, PRN medication usage. 5. Abdominal Pain/ Gas: Simethicone 80mg PO PCHS. Please continue to monitor for medication effectiveness. 6. Insomnia: Melatonin 10mg PO QHS. Please continue to monitor for medication effectiveness. If medication not taking effect, can try to administer 2hrs prior to bedtime. Psychotropic Medications: None Unnecessary Medications: None Bowel Regimen: Miralax 17g PO Daily, Senna/Docusate 1 tab PO BID, Dulcolax 10mg [place] Daily PRN, MOM 30mL PO Daily PRN. Please continue to monitor for increased/decreased S/S constipation and/or diarrhea. Date of Note:: 06/23/20 - Provider Comments Provider responsibility: Provider responsible to enter orders to implement recommendations <Jaime Culver Chi - Last Filed: 06/23/20 12:20> Progress Note - Pharmacy Subjective: [] Objective: Allergies clindamycin Allergy (Mild, Verified 06/09/20 10:06) rash acetaminophen [From Tylenol-Codeine #3] Adverse Reaction (Severe, Verified 06/09/20 10:06) Nausea codeine phosphate [From Tylenol-Codeine #3] Adverse Reaction (Severe, Verified 06/09/20 10:06) Nausea Current Medications Generic Name Dose Route Start Last Admin Trade Name Freq PRN Reason Stop Dose Admin Acetaminophen 1,000 mg 06/19/20 20:10 06/23/20 05:05 Acetaminophen 500 Mg Tablet PO 1,000 mg Q6H PRN Administration Pain Score 1-3 Albuterol Sulfate 2 puff 06/19/20 20:10 06/22/20 15:37 Albuterol Ih 8.5 Gm (Proair) Inhaler (200 Puffs) INHALATION 2 puff Q4H PRN Administration SOB &/OR WHEEZING Bisacodyl 10 mg 06/19/20 20:09 06/21/20 08:26 Bisacodyl 10 Mg Suppository RECTAL 10 mg DAILY PRN Administration Constipation Enoxaparin Sodium 40 mg 06/20/20 06:00 06/23/20 05:05 Enoxaparin 40 Mg/0.4 Ml Syringe SC 40 mg DAILY@0600 DICK Administration Levothyroxine Sodium 125 mcg 06/20/20 06:00 06/23/20 05:05 Levothyroxine 125 Mcg Tablet PO 125 mcg DAILY DICK Administration Magnesium Hydroxide 30 ml 06/19/20 20:09 06/22/20 13:21 Magnesium Hydroxide 30 Ml Udc PO 30 ml DAILY PRN Administration Constipation Melatonin 10 mg 06/22/20 22:00 06/22/20 22:34 Melatonin 10 Mg Tablet PO 10 mg QHS DICK Administration Metoprolol Succinate 50 mg 06/20/20 06:00 06/23/20 05:05 Metoprolol(Xl)Succ 50 Mg Tablet PO 50 mg DAILY DICK Administration Oxycodone HCl 2.5 mg 06/20/20 08:13 06/20/20 14:37 Oxycodone 5 Mg Tablet PO 2.5 mg Q4H PRN PRN Administration Pain Score 4-10 Polyethylene Glycol 17 gm 06/20/20 06:00 06/23/20 05:05 Polyethylene Glycol 3350 17 Gm Packet PO 17 gm DAILY DICK Administration Fluticasone/Salmeterol 1 puff 06/20/20 07:00 06/23/20 05:06 Fluticasone/Salmeterol 232-14 Inhaler IH 1 puff Q12 DICK Administration Senna/Docusate Sodium 1 tablet 06/20/20 06:00 06/23/20 05:05 Senna/Docusate Sodium 1 Tablet PO 1 tablet BID DICK Administration Simethicone 80 mg 06/23/20 09:00 06/23/20 10:03 Simethicone 80 Mg Tablet PO 06/28/20 09:01 80 mg PCHS DIKC Administration Sodium Chloride 10 - 40 ml 06/21/20 09:01 06/22/20 13:21 0.9% Saline Lock 10 Ml Syringe IV 20 ml UD PRN Administration SALINE FLUSH Tuberculin PPD 5 tu 06/27/20 10:00 Tuberculin,Purif.Prot.Deriv. 50 Tu/Ml Vial ID 06/27/20 10:01 X1 ONE Problem List (Last Reviewed 05/19/20 @ 20:[address] Dusty Arana, DO) Hypertension (Chronic) Diabetes mellitus (Chronic) Debility (Acute) Lumbar spinal stenosis (Chronic) Asthma (Chronic) Hypothyroidism (Chronic) Vital Signs Temp Pulse Resp BP Pulse Ox 98.6 F 78 18 173/82 H 97 06/23/20 05:01 06/23/20 05:05 06/23/20 05:01 06/23/20 05:05 06/23/20 05:01 Oxygen Delivery Method Room Air Weight: 83.9 kg Body Mass Index (BMI) 31.7 Finger Stick Blood Glucose 135 Sodium 135 mmol/L (136-145) L 06/20/20 05:10 Potassium 3.5 mmol/L (3.5-5.1) 06/20/20 05:10 Chloride 100 mmol/L (98-107) 06/20/20 05:10 Carbon Dioxide 29.0 mmol/L (21.0-32.0) 06/20/20 05:10 Anion Gap 6 (5-15) 06/20/20 05:10 BUN 15 mg/dL (7-18) 06/20/20 05:10 Creatinine 0.56 mg/dL (0.55-1.02) 06/20/20 05:10 Est GFR (MDRD) Af Amer 136 mL/min (>60) 06/20/20 05:10 Est GFR (MDRD) Non-Af 113 mL/min (>60) 06/20/20 05:10 BUN/Creatinine Ratio 27.0 RATIO (10-20) H 06/20/20 05:10 Glucose 143 mg/dL (74-106) H 06/20/20 05:10 Assessment/Plan: Psychotropic Medications: Unnecessary Medications: Bowel Regimen: - Provider Comments Provider responsibility: Provider responsible to enter orders to implement recommendations Provider Comments to Recommendations by Pharmacy: Agree
[2020-06-23 15:12] VITALS: BP 152/62; PULSE 75; RESP 16; TEMP 36.5; O2SAT 96
[2020-06-23 16:36] LABS: Bedside Glucose 129 mg/dL (70-110)
[2020-06-23 21:35] LABS: Bedside Glucose 131 mg/dL (70-110)
[2020-06-23] MEDS: MELATONIN 10 MG TABLET PO (21:45)
[2020-06-24 04:51] VITALS: BP 169/74; PULSE 71; RESP 18; TEMP 36.2; O2SAT 93
[2020-06-24] MEDS: Levothyroxine 125 MCG Tablet PO (04:54)
[2020-06-24] MEDS: Polyethylene Glycol 3350 17 GM PACKET PO (04:54)
[2020-06-24] MEDS: Enoxaparin 40 MG/0.4 ML Syringe SC (04:54)
[2020-06-24 04:55] VITALS: BP 169/74; PULSE 71
[2020-06-24] MEDS: Metoprolol(XL)Succ 50 MG Tablet PO (04:55)
[2020-06-24] MEDS: Senna/Docusate Sodium 1 Tablet PO (04:55)
[2020-06-24] MEDS: Fluticasone/Salmeterol 232-14 Inhaler 1 PUFF IH ×2 (04:56→18:06)
[2020-06-24 06:20] LABS: Bedside Glucose 135 mg/dL (70-110)
[2020-06-24 10:00] VITALS: RESP 18
[2020-06-24 11:01] LABS: Bedside Glucose 122 mg/dL (70-110)
[2020-06-24 14:17] VITALS: BP 190/83; PULSE 83; RESP 16; TEMP 36.6; O2SAT 96
--- NOTE | 2020-06-24 15:47 | CHAPLAIN ---
Type of Pastoral Visit _x__ Initial Visit ___ Follow-up Visit ___ On-call Visit ___ General Patient Visit ___ Spiritual Assessment ___ Family Conference ___ Bereavement ___ Rapid Response ___ Code Blue ___ Other (describe below) Pastoral Care Referral From _x__ Patient ___ Family ___ Nurse ___ Physician ___ Orthopedic Shoes Salesperson ___ Hide And Skin Colerer ___ Other (describe below) Sacrament/Intervention _x__ Active listening ___ Anointing ___ Adventist ___ Bereavement ___ Communion _x__ Adwoa exploration ___ ___ Life review _x__ Prayer ___ Reconciliation ___ Sacrament of Sick _x__ Supportive presence ___ Wedding ___ Other (describe below) Pastoral Comments patient speaks of going home soon and is looking forward to that as she feels much better now
--- NOTE | 2020-06-24 16:21 | CASEMGMT ---
Notified pt last covered day is 06/26/20, and can discharge 06/27/20. Pt states would like to leave on the . NOMNC issued and signed, faxed back to [facility]. Copy given to pt and placed on chart. ZULLY Wilson
[2020-06-24 17:10] LABS: Bedside Glucose 129 mg/dL (70-110)
[2020-06-24] MEDS: 0.9% Saline Lock 10 ML Syringe IV (18:07)
--- NOTE | 2020-06-24 18:20 | NURSING ---
patient's IV occluded, IV removed, angio cath tip intact. 2x2 applied and secured with tape, pt tolerated well.
[2020-06-24] MEDS: MELATONIN 10 MG TABLET PO (21:23)
[2020-06-24 21:26] LABS: Bedside Glucose 126 mg/dL (70-110)
[2020-06-25 05:36] VITALS: BP 173/81; PULSE 74; RESP 18; TEMP 36.6; O2SAT 97
[2020-06-25] MEDS: Fluticasone/Salmeterol 232-14 Inhaler 1 PUFF IH ×2 (05:42→16:30)
[2020-06-25] MEDS: Levothyroxine 125 MCG Tablet PO (05:42)
[2020-06-25 05:43] VITALS: PULSE 74
[2020-06-25] MEDS: oxyCODONE 5 MG Tablet 2.5 MG PO (05:43)
[2020-06-25] MEDS: Metoprolol(XL)Succ 50 MG Tablet PO (05:43)
[2020-06-25] MEDS: Enoxaparin 40 MG/0.4 ML Syringe SC (05:45)
[2020-06-25 06:26] LABS: Bedside Glucose 131 mg/dL (70-110)
--- NOTE | 2020-06-25 08:51 | DCINST_ITS ---
- Discharge Diagnoses Current Active Problems: Current Active and Chronic Problems (Last Reviewed 05/19/20 @ 20:[address] Dusty Arana, DO) Hypertension (Chronic) Diabetes mellitus (Chronic) Debility (Acute) Lumbar spinal stenosis (Chronic) Asthma (Chronic) Hypothyroidism (Chronic) You will use the following diet at home:: No restrictions, Regular Your food should be the consistency of: Regular Your liquids should be the consistency of: Regular/Thin Discharge Activity: Return to Normal Activity, May Shower, Use Walker Weight Bearing Status: Weight bearing as tolerated Call your doctor if you observe: Fever of 101 or Higher, Inability to urinate, Inability to have a bowel movement, Shortness of breath, Chest pain, Uncontrolled pain Allergies/Adverse Reactions: Allergies clindamycin Allergy (Mild, Verified 06/09/20 10:06) rash acetaminophen [From Tylenol-Codeine #3] Adverse Reaction (Severe, Verified 06/09/20 10:06) Nausea codeine phosphate [From Tylenol-Codeine #3] Adverse Reaction (Severe, Verified 06/09/20 10:06) Nausea Medications to take at Discharge Metoprolol Succinate [Toprol Xl] 50 mg PO DAILY 05/19/20 Albuterol IH (ProAir) [Proair Hfa] 1 - 2 puff INHALATION Q6H PRN PRN 06/02/20 levothyroxine 125 mcg tablet 125 mcg PO DAILY tab 06/09/20 Fluticasone/Vilanterol [Breo Ellipta 100-25 Mcg INH] 1 ea IH DAILY 06/17/20 Acetaminophen [Tylenol] 1,000 mg PO Q6H PRN tablet 06/25/20 Oxycodone [Oxyir] 2.5 mg PO Q4H PRN PRN #9 tablet 06/25/20 Senna/Docusate Sodium [Senokot-S] 1 tab PO BID #60 tab 06/25/20 The following prescriptions were given: Oxycodone [Oxyir] 2.5 mg PO Q4H PRN PRN #9 tablet PRN Reason: Pain Score 4-10 Transmission Status: Received by [id number] Senna/Docusate Sodium [Senokot-S] 1 tab PO BID #60 tab Transmission Status: Pending to [id number] Primary Care Physician: Jaime Culver Chi, MD [Primary Care Provider] - Please follow up with your Primary Care Physician in: 1 week. Test Results: Test results from this visit will be discussed in further detail at your follow- up appointment, if applicable. Please Follow Up With: Fitz Orta DO When: 2 weeks Proposed Discharge Date: 06/26/20
--- NOTE | 2020-06-25 08:52 | PCM.DC.SUM ---
Discharge Date and Diagnosis - Problem List Patient Problems: Active and Suspected Problems (Last Reviewed 05/19/20 @ 20:[address] Dusty Arana DO) Debility (Acute) Date of Admission: 06/19/20 Date of Discharge: 06/26/20 - Primary Discharge Diagnosis Acute Problems: Active Problems (Last Reviewed 05/19/20 @ 20:[address] Dusty Arana DO) Debility (Acute) - Secondary Discharge Diagnosis Chronic Problems: Chronic Problems (Last Reviewed 05/19/20 @ 20:[address] Dusty Arana DO) Hypertension (Chronic) Diabetes mellitus (Chronic) Lumbar spinal stenosis (Chronic) Restless leg syndrome (Chronic) Vitamin B12 deficiency (Chronic) Allergic rhinitis (Chronic) GERD (gastroesophageal reflux disease) (Chronic) Asthma (Chronic) Benign hypertension (Chronic) HLD (hyperlipidemia) (Chronic) Hypothyroidism (Chronic) Chronic low back pain (Chronic) Seasonal allergies (Chronic) Orthostatic hypotension (Chronic) Hospital Course and Treatment Imaging Results: 06/24/20 08:06 Diet: Regular - General Dietary Modifications:: Consistent Carbohydrate Is pt able to select menu?: Yes Clinical Impression(s) from Imaging Studies KUB X-Ray 06/20/20 12:49 IMPRESSION: Gas is seen throughout the colon. Electronically Signed: Gonzalo Jordan, at 14:09 EST , Service support , Labs (Last 48 Hours) 06/23/20 06/23/20 06/23/20 11:22 16:23 21:27 POC Glucose 128 H 129 H 131 H 06/24/20 06/24/20 06/24/20 06:11 10:45 17:03 POC Glucose 135 H 122 H 129 H 06/24/20 06/25/20 21:14 06:11 POC Glucose 126 H 131 H Operations: None Procedures: None Summary of Care Provided: The patient is a 74 year old Female with below past medical history hospitalized for decompression laminectomy L3-4 06/17/20, postoperative course complicated by new onset Type 2 Diabetes Mellitus, admitted to TCU with debility, here fo rehabilitation, strengthening, prior to discharge home alone. [facility], [facility]. Patient Problems: Active and Suspected Problems (Last Reviewed 05/19/20 @ 20:[address] Dusty Arana DO) Debility (Acute) - Physical Exam Vitals/I&O's: Vital Signs Temp Pulse Resp BP Pulse Ox 97.8 F 74 18 173/81 H 97 06/25/20 05:36 06/25/20 05:43 06/25/20 05:36 06/25/20 05:36 06/25/20 05:36 Oxygen Delivery Method Room Air Weight: 84.17 kg Body Mass Index (BMI) 31.7 Finger Stick Blood Glucose 135 Intake and Output for Last 24 Hours 06/23/20 06/24/20 06/25/20 23:59 23:59 23:59 Intake Total 1180 / 1180 1160 / 1160 120 / 120 Balance 1180 / 1180 1160 / 1160 120 / 120 Laboratory Results 06/24/20 10:45: POC Glucose 122 H 06/24/20 17:03: POC Glucose 129 H 06/24/20 21:14: POC Glucose 126 H 06/25/20 06:11: POC Glucose 131 H Current Medications Acetaminophen (Acetaminophen 500 Mg Tablet) 1,000 mg PO Q6H PRN PRN Reason: Pain Score 1-3 Last Admin: 06/23/20 05:05 Dose: 1,000 mg Documented by: Albuterol Sulfate (Albuterol Ih 8.5 Gm (Proair) Inhaler (200 Puffs)) 2 puff INHALATION Q4H PRN PRN Reason: SOB &/OR WHEEZING Last Admin: 06/24/20 07:58 Dose: 2 puff Documented by: Bisacodyl (Bisacodyl 10 Mg Suppository) 10 mg RECTAL DAILY PRN PRN Reason: Constipation Last Admin: 06/21/20 08:26 Dose: 10 mg Documented by: Enoxaparin Sodium (Enoxaparin 40 Mg/0.4 Ml Syringe) 40 mg SC DAILY@0600 [facility] Last Admin: 06/25/20 05:45 Dose: 40 mg Documented by: Levothyroxine Sodium (Levothyroxine 125 Mcg Tablet) 125 mcg PO DAILY [facility] Last Admin: 06/25/20 05:42 Dose: 125 mcg Documented by: Magnesium Hydroxide (Magnesium Hydroxide 30 Ml Udc) 30 ml PO DAILY PRN PRN Reason: Constipation Last Admin: 06/22/20 13:21 Dose: 30 ml Documented by: Melatonin (Melatonin 10 Mg Tablet) 10 mg PO QHS [facility] Last Admin: 06/24/20 21:23 Dose: 10 mg Documented by: Metoprolol Succinate (Metoprolol(Xl)Succ 50 Mg Tablet) 50 mg PO DAILY [facility] Last Admin: 06/25/20 05:43 Dose: 50 mg Documented by: Oxycodone HCl (Oxycodone 5 Mg Tablet) 2.5 mg PO Q4H PRN PRN PRN Reason: Pain Score 4-10 Last Admin: 06/25/20 05:43 Dose: 2.5 mg Documented by: Polyethylene Glycol (Polyethylene Glycol 3350 17 Gm Packet) 17 gm PO DAILY [facility] Last Admin: 06/25/20 05:45 Dose: Not Given Documented by: Fluticasone/Salmeterol (Fluticasone/Salmeterol 232-14 Inhaler) 1 puff IH Q12 [facility] Last Admin: 06/25/20 05:42 Dose: 1 puff Documented by: Senna/Docusate Sodium (Senna/Docusate Sodium 1 Tablet) 1 tablet PO BID [facility] Last Admin: 06/25/20 05:46 Dose: Not Given Documented by: Simethicone (Simethicone 80 Mg Tablet) 80 mg PO [facility] Stop: 06/28/20 09:01 Last Admin: 06/24/20 20:17 Dose: 80 mg Documented by: Sodium Chloride (0.9% Saline Lock 10 Ml Syringe) 10 - 40 ml IV UD PRN PRN Reason: SALINE FLUSH Last Admin: 06/24/20 18:07 Dose: 10 ml Documented by: Tuberculin PPD (Tuberculin,Purif.Prot.Deriv. 50 Tu/Ml Vial) 5 tu ID X1 ONE Stop: 06/27/20 10:01 Discharge Diet: No Restrictions Discharge Activity: Return to Normal Activity, May Shower, Use Walker Weight Bearing Status: Weight bearing as tolerated Call your doctor if you observe: Fever of 101 or Higher, Inability to urinate, Inability to have a bowel movement, Shortness of breath, Chest pain, Uncontrolled pain Home Medications: Medications to take at Discharge Metoprolol Succinate [Toprol Xl] 50 mg PO DAILY 05/19/20 Albuterol IH (ProAir) [Proair Hfa] 1 - 2 puff INHALATION Q6H PRN PRN 06/02/20 levothyroxine 125 mcg tablet 125 mcg PO DAILY tab 06/09/20 Fluticasone/Vilanterol [Breo Ellipta 100-25 Mcg INH] 1 ea IH DAILY 06/17/20 Acetaminophen [Tylenol] 1,000 mg PO Q6H PRN tablet 06/25/20 Oxycodone [Oxyir] 2.5 mg PO Q4H PRN PRN #9 tablet 06/25/20 Senna/Docusate Sodium [Senokot-S] 1 tab PO BID #60 tab 06/25/20 Following Prescriptions Were Given to Patient: Oxycodone [Oxyir] 2.5 mg PO Q4H PRN PRN #9 tablet PRN Reason: Pain Score 4-10 Transmission Status: Received by [id number] Senna/Docusate Sodium [Senokot-S] 1 tab PO BID #60 tab Transmission Status: Pending to [id number] Primary Care Physician: Jaime Culver Chi, MD [Primary Care Provider] - Please follow up with your Primary Care Physician in: 1 week. Please Follow Up With: Fitz Orta DO When: 2 weeks Disposition: Home with Home Health Patient Condition:: Stable Medical Necessity - Tobacco Use Smoking Status: Never smoker Tobacco Use: Non-smoker Meaningful Use Info Meaningful Use Diagnoses (Choose all that apply): None applicable
[2020-06-25 10:51] LABS: Bedside Glucose 176 mg/dL (70-110)
--- NOTE | 2020-06-25 12:50 | CASEMGMT ---
Social Work Followed up with pt on DC plans. IDT agreeable to DC 06/26. Pt agreeable to [facility] - referral made for PT/OT/SN. She will restart nonskilled TRANSCRIPTIONIST services and MOW. No DME needs. Dtr to transport. Plan: DC home 06/26 alone with [facility] PT/OT/SN, nonskilled HHC, MOW, no DME FERCHO Harper ELEVATOR OPERATOR
[2020-06-25 14:34] VITALS: BP 146/76; PULSE 77; RESP 18; TEMP 37.6; O2SAT 95
--- NOTE | 2020-06-25 14:53 | CASEMGMT ---
Social Work IDT met with patient and dtr via conference call for care plan meeting. Discussed patient's progress in therapy. Pt is Vasiliy for tx and ambulating 150ft with FWW. Vasiliy for bed mobility. Using 2.5# wts for LE exercises. Pt is Vasiliy for all ADLS. Pt is set to DC home 06/26 with [facility] PT/OT/SN, provided MOW resources, no DME needs. Dtr to transport. FERCHO Harper CHEF DE CUISINE
[2020-06-25] MEDS: Senna/Docusate Sodium 1 Tablet PO (16:31)
[2020-06-25 17:00] LABS: Bedside Glucose 150 mg/dL (70-110)
[2020-06-25 21:26] LABS: Bedside Glucose 153 mg/dL (70-110)
[2020-06-25] MEDS: MELATONIN 10 MG TABLET PO (21:40)
[2020-06-26 06:26] LABS: Bedside Glucose 120 mg/dL (70-110)
[2020-06-26 06:35] VITALS: BP 163/75; PULSE 87; RESP 16; TEMP 36.7; O2SAT 94
[2020-06-26] MEDS: Enoxaparin 40 MG/0.4 ML Syringe SC (06:39)
[2020-06-26] MEDS: Fluticasone/Salmeterol 232-14 Inhaler 1 PUFF IH (06:39)
[2020-06-26] MEDS: Levothyroxine 125 MCG Tablet PO (06:39)
[2020-06-26 06:40] VITALS: BP 163/75; PULSE 87
[2020-06-26] MEDS: Metoprolol(XL)Succ 50 MG Tablet PO (06:40)
[2020-06-26] MEDS: Polyethylene Glycol 3350 17 GM PACKET PO (06:41)
[2020-06-26] MEDS: Senna/Docusate Sodium 1 Tablet PO (06:41)
[2020-06-26 08:52] VITALS: BP 162/86; PULSE 83; RESP 18; TEMP 36.9; O2SAT 94
[2020-06-26 09:17] VITALS: PULSE 85; RESP 18; O2SAT 96
[2020-06-26 10:35] LABS: Bedside Glucose 151 mg/dL (70-110)
--- NOTE | 2020-07-01 12:29 | MDS.RN ---
Information for the mds was obtained from review of the clinical record, interview of resident, staff, and direct observation of resident's care.
== END 2020-06-26 11:15 | disposition home health service (06) | DRG 561 ==
PROVIDERS: Admitting Provider Family Medicine Geriatric Medicine; PCP Family Medicine Geriatric Medicine; Visit Provider Family Medicine Geriatric Medicine
DX: Z47.89 Encounter for other orthopedic aftercare (principal); M48.061 Spinal stenosis, lumbar region without neurogenic claudication; K21.9 Gastro-esophageal reflux disease without esophagitis; E11.9 Type 2 diabetes mellitus without complications; E78.5 Hyperlipidemia, unspecified; J45.909 Unspecified asthma, uncomplicated; I10 Essential (primary) hypertension; G25.81 Restless legs syndrome; G89.29 Other chronic pain; E03.9 Hypothyroidism, unspecified
CPT/HCPCS: 74018; 80048; 82962; 85025; 87635; 97110; 97116; 97162; 97166; 97530; 97535; 97802; 97803; J7030; A4216; J1940; U0003

== ENCOUNTER → 2020-08-04 17:19 | Outpatient (CLI) | payer MEDICARE, SELFPAY | PROVIDERS: PCP Family Medicine Geriatric Medicine; Referring Provider Otolaryngology; Visit Provider Otolaryngology | DX: Z11.59 Encounter for screening for other viral diseases (principal) | CPT/HCPCS: 87635; C9803; U0003 ==

== ENCOUNTER → 2020-08-12 11:25 | Outpatient (CLI) | payer MEDICARE, SELFPAY | PROVIDERS: PCP Family Medicine Geriatric Medicine; Referring Provider Otolaryngology; Visit Provider Otolaryngology | DX: R05 Cough (principal) ==

== ENCOUNTER → 2020-09-09 10:44 | Outpatient (CLI) | payer MEDICARE, SELFPAY ==
--- NOTE | 2020-09-09 10:47 | RAD_ITS ---
STUDY: X-RAY CHEST REASON FOR EXAM: Female, 75 years old. COUGH X 6 WEEKS TECHNIQUE: PA and lateral views of the chest. COMPARISON: Comparison is made with prior study dated 06/07/2020. FINDINGS: Stable 8.9 mm calcified granuloma in the right lung apex. No other abnormality seen. There is no demonstrated pleural abnormality. Normal size heart. A loop recording device is seen overlying the left cardiac border. Normal mediastinum and nasrin. Normal visualized pulmonary arteries. There is atherosclerotic tortuosity of the aortic arch and descending thoracic aorta. There are diffuse degenerative changes of the visualized thoracic spine. Electrodes from a spinal cord stimulator are seen. The tip is at the T7-T8 level. Normal visualized ribs, clavicles, and shoulders. There is no demonstrated abnormality of the visualized soft tissue structures of the upper abdomen. RAD/Chest PA and Lateral IMPRESSION: Stable examination. No acute abnormality is seen. Electronically Signed: Gonzalo Jordan MD at 13:46 EST , Service support ,
== END ==
PROVIDERS: PCP Family Medicine Geriatric Medicine; Visit Provider Otolaryngology
DX: R05 Cough (principal)
CPT/HCPCS: 71046

== ENCOUNTER → 2020-09-18 15:03 | Outpatient (CLI) | payer MEDICARE, SELFPAY | PROVIDERS: PCP Family Medicine Geriatric Medicine; Referring Provider Otolaryngology; Visit Provider Otolaryngology | DX: J02.9 Acute pharyngitis, unspecified (principal) | CPT/HCPCS: 87070 ==

== ENCOUNTER → 2020-09-18 15:04 | Outpatient (CLI) | payer MEDICARE, SELFPAY | PROVIDERS: PCP Family Medicine Geriatric Medicine; Visit Provider Otolaryngology | DX: Z11.59 Encounter for screening for other viral diseases (principal); Z03.818 Encounter for observation for suspected exposure to other biological agents ruled out | CPT/HCPCS: 87070; 87635; C9803; U0002 ==

== ENCOUNTER → 2020-09-29 14:08 | Outpatient (CLI) | payer MEDICARE, SELFPAY ==
--- NOTE | 2020-09-29 14:21 | RAD_ITS ---
INDICATION: LOW BACK PAIN EXAMINATION/TECHNIQUE: X-RAY - XR Spine Lumbar 2 or 3 Views COMPARISON: 05/03/2020. FINDINGS: Normal lumbar lordosis. There is no substantial scoliosis. Mild, grade 1 degenerative listhesis at L3-L4 and L2-L3. Degenerative changes of the vertebral bodies with spurring at the endplates. Narrowing of the L2-3, L3-4 and L5-S1 disc space heights. Laminectomy of L4 and L5. Moderate multilevel facet arthropathy. The soft tissue structures are unremarkable. Calcified aorta. A stimulator is noted with electrodes extending into the lower thoracic region. RAD/Lumbar Spine 2 or 3 Views IMPRESSION: No acute abnormalities. Postsurgical changes and multilevel lumbar spondylosis. Electronically Signed: Pavan Seo MD at 22:47 EDT Tel , Service support ,
== END ==
PROVIDERS: PCP Family Medicine Geriatric Medicine; Referring Provider Family Medicine Geriatric Medicine; Visit Provider Family Medicine Geriatric Medicine
DX: N39.0 Urinary tract infection, site not specified (principal); M54.5 Low back pain
CPT/HCPCS: 72100; 87086; 87088

== ENCOUNTER → 2020-10-08 09:43 | Outpatient (CLI) | payer MEDICARE, SELFPAY ==
[2020-10-08 10:35] LABS: Absolute Lymphocyte Count 2.58 X10^3/uL (0.83-4.51); Absolute Neutrophil Count 8.4 X10^3/uL (2.0-7.7); Basophil% 0.8 % (0-1); Hematocrit 40.2 % (37-47); Hemoglobin 13.1 g/dL (12.0-15.0); Lymphocyte # 2.58 X10^3/ul (4.0); Lymphocyte % 19.4 % (19-41); Mean Corp Hgb Conc 32.6 g/dL (32-36); Mean Corpuscular Hgb 34.7 pg (27.0-32.0); Mean Corpuscular Volume 106.3 fL (81-99); Mean Platelet Vol. 11.5 fl (6.2-12.0); Monocyte# 1.25 X10^3/uL; Monocyte% 9.4 % (0-10); NRBC Flagged by Analyzer 0 % (0-5); Neutrophil # 8.41 X10^3/uL (2.7-7.7); Neutrophil % 63.4 % (47-70); Platelet Count 275 K/mm3 (150-450); RBC Distribution Width CV 13.7 % (11.6-14.6); RBC Distribution Width SD 54.4 fl (35.1-43.9); Red Blood Count 3.78 M/mm3 (4.2-5.4); White Blood Count 13.3 K/mm3 (4.4-11.0)
[2020-10-08 10:53] LABS: ALB/GLOB Ratio 0.9 RATIO (0.9-2.4); AST(SGOT) 16 U/L (15-37); Alanine Aminotransfer ALT/SGPT 42 U/L (13-56); Albumin, Serum 3.3 g/dL (3.2-5.0); Alkaline Phosphatase 96 U/L (45-117); Anion Gap 5 (5-15); BUN 18 mg/dL (7-18); BUN/Creat Ratio 23.9 RATIO (10-20); Calcium,Total 9.3 mg/dL (8.5-10.1); Chloride 104 mmol/L (98-107); Creatinine, Serum 0.75 mg/dL (0.55-1.02); EST Glomerular Filtration Rate 79 mL/min (>60); Est Glom Filt Rate - Afr Amer 96 mL/min (>60); Globulin 3.6 g/dL (2.2-4.2); Glucose 112 mg/dL (74-106); Potassium 3.8 mmol/L (3.5-5.1); Protein, Total 6.9 g/dL (6.4-8.2); Sodium Level 138 mmol/L (136-145)
== END ==
PROVIDERS: PCP Family Medicine Geriatric Medicine; Visit Provider Family Medicine Geriatric Medicine
DX: R10.9 Unspecified abdominal pain (principal); N39.0 Urinary tract infection, site not specified
CPT/HCPCS: 36415; 80053; 85025; 87086

== ENCOUNTER → 2020-10-08 09:57 | Outpatient (CLI) | payer MEDICARE, SELFPAY ==
--- NOTE | 2020-10-08 10:00 | CT_ITS ---
STUDY: CT ABDOMEN AND PELVIS WITH CONTRAST REASON FOR EXAM: Female, 75 years old. Abdominal pain. History of diverticulitis. RADIATION DOSAGE (If Supplied By Facility): CTDIvol = ( 14.46 ) mGy, DLP = ( 883.40 ) mGycm TECHNIQUE: Transaxial images were obtained from the dome of the diaphragm to the symphysis pubis with oral contrast. 100 ml of ISOVUE-300 contrast was administered. Sagittal and coronal images were reconstructed. Individualized dose optimization techniques were used for this CT. COMPARISON: 12/20/19 FINDINGS: The visualized lung bases are clear. There are coronary artery calcifications noted. There are no calcified gallstones present. The liver is low in density, consistent with fatty infiltration. The spleen is normal in size. The pancreas is within normal limits. The adrenal glands are within normal limits. There are no renal or ureteral stones. There is no hydronephrosis. There are no focal renal lesions. Normal visualized stomach. There is no bowel obstruction or inflammation. There is a large amount of stool in the colon, consistent with constipation. The appendix is not visualized, but there are no findings to suggest acute appendicitis. The aorta is normal in caliber. There are atherosclerotic calcifications noted in the aorta and its branches. The patient is status post hysterectomy. There is no abdominal or pelvic free air, free fluid, fluid collection or lymphadenopathy. There are no destructive osseous lesions. There are stable degenerative changes noted in the spine. CT/Abdomen/Pelvis WITH Contrast IMPRESSION: No bowel obstruction or inflammation. Constipation. Normal kidneys. No hydronephrosis. No calcified gallstones present. Atherosclerosis and coronary artery disease. Electronically Signed: Tyson Unger MD at 12:30 EDT Tel , Service support ,
== END ==
PROVIDERS: PCP Family Medicine Geriatric Medicine; Referring Provider Family Medicine Geriatric Medicine; Visit Provider Family Medicine Geriatric Medicine
DX: R10.9 Unspecified abdominal pain (principal); N39.0 Urinary tract infection, site not specified
CPT/HCPCS: 36415; 74177; 80053; 85025; 87086; 87088; Q9967

== ENCOUNTER → 2020-10-28 13:13 | Outpatient (CLI) | payer MEDICARE, SELFPAY ==
[2020-10-28 15:55] LABS: Absolute Lymphocyte Count 2.16 X10^3/uL (0.83-4.51); Absolute Neutrophil Count 11.3 X10^3/uL (2.0-7.7); Basophil# 0.08 X10^3/uL; Basophil% 0.5 % (0-1); Eosinophils% 1.3 % (0-5); Hematocrit 39.6 % (37-47); Hemoglobin 12.9 g/dL (12.0-15.0); Lymphocyte # 2.16 X10^3/ul (0.83-4.51); Lymphocyte % 13.9 % (19-41); Mean Corp Hgb Conc 32.6 g/dL (32-36); Mean Corpuscular Hgb 34.3 pg (27.0-32.0); Mean Corpuscular Volume 105.3 fL (81-99); Mean Platelet Vol. 11.7 fl (6.2-12.0); Monocyte# 1.61 X10^3/uL; Monocyte% 10.4 % (0-10); NRBC Flagged by Analyzer 0 % (0-5); Neutrophil # 11.26 X10^3/uL (2.7-7.7); Neutrophil % 72.4 % (47-70); POSITIVE DIFFERENTIAL YES; Platelet Count 299 K/mm3 (150-450); RBC Distribution Width CV 14.6 % (11.6-14.6); RBC Distribution Width SD 56.7 fl (35.1-43.9); Red Blood Count 3.76 M/mm3 (4.2-5.4); White Blood Count 15.5 K/mm3 (4.4-11.0)
[2020-10-28 16:06] LABS: Differential Indicated SCAN CRITERIA MET
[2020-10-28 16:14] LABS: Vitamin D,25 Hydroxy 25.3 ng/mL
[2020-10-28 16:35] LABS: Differential Comment SCANNED
[2020-10-28 16:40] LABS: ALB/GLOB Ratio 0.9 RATIO (0.9-2.4); AST(SGOT) 22 U/L (15-37); Alanine Aminotransfer ALT/SGPT 41 U/L (13-56); Albumin, Serum 3.5 g/dL (3.2-5.0); Alkaline Phosphatase 100 U/L (45-117); Anion Gap 6 (5-15); BUN 14 mg/dL (7-18); BUN/Creat Ratio 15.9 RATIO (10-20); Calcium,Total 9.2 mg/dL (8.5-10.1); Chloride 102 mmol/L (98-107); Creatinine, Serum 0.88 mg/dL (0.55-1.02); EST Glomerular Filtration Rate 66 mL/min (>60); Est Glom Filt Rate - Afr Amer 80 mL/min (>60); Globulin 3.7 g/dL (2.2-4.2); Glucose 94 mg/dL (74-106); Potassium 4.4 mmol/L (3.5-5.1); Protein, Total 7.2 g/dL (6.4-8.2); Sodium Level 137 mmol/L (136-145); Thyroid Stim Hormone (TSH) 4.21 uIU/mL (0.358-3.74)
[2020-10-29 13:17] LABS: Pathologist Review Reviewed
== END ==
PROVIDERS: PCP Family Medicine Geriatric Medicine; Visit Provider Family Medicine Geriatric Medicine
DX: E55.9 Vitamin D deficiency, unspecified (principal); I10 Essential (primary) hypertension
CPT/HCPCS: 36415; 80053; 82306; 84443; 85025

== ENCOUNTER → 2020-11-26 06:49 | Outpatient (CLI) | payer MEDICARE, SELFPAY ==
--- NOTE | 2020-11-26 07:02 | RAD_ITS ---
STUDY: X-RAY CHEST REASON FOR EXAM: Female, 75 years old. Shortness of breath TECHNIQUE: Frontal and lateral views of the chest COMPARISON: 09/09/20 FINDINGS: The lungs are clear. There are no pleural effusions. There is no pneumothorax. The heart is normal in size. The visualized osseous structures are within normal limits. There is a spinal stimulator electrode in place. RAD/Chest PA and Lateral IMPRESSION: No acute thoracic pathology. Electronically Signed: Tyson Unger MD at 8:17 EDT Tel , Service support ,
[2020-11-26 07:09] LABS: Absolute Lymphocyte Count 1.72 X10^3/uL (0.83-4.51); Absolute Neutrophil Count 9.4 X10^3/uL (2.0-7.7); Basophil# 0.08 X10^3/uL; Basophil% 0.6 % (0-1); Eosinophil# 0.07 X10^3/uL; Eosinophils% 0.6 % (0-5); Hematocrit 38.6 % (37-47); Hemoglobin 12.5 g/dL (12.0-15.0); Lymphocyte # 1.72 X10^3/ul (0.83-4.51); Mean Corp Hgb Conc 32.4 g/dL (32-36); Mean Corpuscular Hgb 34.3 pg (27.0-32.0); Mean Platelet Vol. 11.1 fl (6.2-12.0); Monocyte# 0.84 X10^3/uL; Monocyte% 6.8 % (0-10); NRBC Flagged by Analyzer 0 % (0-5); Neutrophil # 9.43 X10^3/uL (2.7-7.7); Neutrophil % 76.5 % (47-70); Platelet Count 299 K/mm3 (150-450); RBC Distribution Width CV 14.6 % (11.6-14.6); RBC Distribution Width SD 57.5 fl (35.1-43.9); Red Blood Count 3.64 M/mm3 (4.2-5.4); White Blood Count 12.3 K/mm3 (4.4-11.0)
[2020-11-26 07:48] LABS: ALB/GLOB Ratio 0.8 RATIO (0.9-2.4); AST(SGOT) 22 U/L (15-37); Alanine Aminotransfer ALT/SGPT 48 U/L (13-56); Albumin, Serum 3.1 g/dL (3.2-5.0); Alkaline Phosphatase 96 U/L (45-117); Anion Gap 8 (5-15); BUN 16 mg/dL (7-18); BUN/Creat Ratio 17.9 RATIO (10-20); Calcium,Total 8.9 mg/dL (8.5-10.1); Chloride 103 mmol/L (98-107); Creatinine, Serum 0.89 mg/dL (0.55-1.02); EST Glomerular Filtration Rate 65 mL/min (>60); Est Glom Filt Rate - Afr Amer 79 mL/min (>60); Globulin 3.9 g/dL (2.2-4.2); Glucose 174 mg/dL (74-106); Potassium 4.3 mmol/L (3.5-5.1); Sodium Level 135 mmol/L (136-145)
[2020-11-26 10:33] LABS: BNP,B-Type NATRIURETIC PEPTIDE 64.2 pg/mL (0-100)
== END ==
PROVIDERS: PCP Family Medicine Geriatric Medicine; Referring Provider Family Medicine Geriatric Medicine; Visit Provider Family Medicine Geriatric Medicine
DX: R63.8 Other symptoms and signs concerning food and fluid intake (principal); R53.1 Weakness; R06.02 Shortness of breath
CPT/HCPCS: 36415; 71046; 80053; 83880; 85025

== ENCOUNTER → 2020-11-26 15:21 | Outpatient (CLI) | payer MEDICARE, SELFPAY | PROVIDERS: PCP Family Medicine Geriatric Medicine; Referring Provider Family Medicine Geriatric Medicine; Visit Provider Family Medicine Geriatric Medicine | DX: R68.83 Chills (without fever) (principal) | CPT/HCPCS: 87635; C9803; U0002 ==

== ENCOUNTER → 2020-12-03 15:32 | Outpatient (CLI) | payer MEDICARE, SELFPAY ==
[2020-12-03 16:20] LABS: Anion Gap 12 (5-15); BUN 29 mg/dL (7-18); BUN/Creat Ratio 21.2 RATIO (10-20); Calcium,Total 8.9 mg/dL (8.5-10.1); Chloride 98 mmol/L (98-107); Creatinine, Serum 1.37 mg/dL (0.55-1.02); EST Glomerular Filtration Rate 40 mL/min (>60); Est Glom Filt Rate - Afr Amer 48 mL/min (>60); Glucose 401 mg/dL (74-106); Potassium 4.4 mmol/L (3.5-5.1); Sodium Level 135 mmol/L (136-145)
== END ==
PROVIDERS: PCP Family Medicine Geriatric Medicine; Visit Provider Family Medicine Geriatric Medicine
DX: I10 Essential (primary) hypertension (principal)
CPT/HCPCS: 36415; 80048

== ENCOUNTER → 2020-12-17 10:57 | Outpatient (CLI) | payer MEDICARE, SELFPAY ==
[2020-12-17 13:11] LABS: Thyroid Stim Hormone (TSH) 6.65 uIU/mL (0.358-3.74)
== END ==
PROVIDERS: PCP Family Medicine Geriatric Medicine; Visit Provider Family Medicine Geriatric Medicine
DX: E03.9 Hypothyroidism, unspecified (principal)
CPT/HCPCS: 36415; 84443

== ENCOUNTER 2020-12-27 10:31 | Observation (INO) | payer MEDICARE, SELFPAY ==
[2020-12-27] VITALS (7 sets, daily range): BP systolic 151–197; BP diastolic 70–80; PULSE 72–84; RESP 16–19; TEMP 36.6–36.9; O2SAT 95–97; BMI 35.0; BMI 32.2
--- NOTE | 2020-12-27 10:46 | RAD_ITS ---
STUDY: X-RAY - PELVIS AND RIGHT HIP REASON FOR EXAM: Female, 75 years old. Injury/Pain TECHNIQUE: 4 views of the pelvis and hip. COMPARISON: None. FINDINGS: Bilaterally device overlying the right femoral neck and hip markedly limiting the examination. Normal visualized soft tissue structures. Generative changes in the lower lumbar spine. No evidence of acute fracture. The joints are within normal limits. No evidence of dislocation. Vascular calcifications. RAD/HIP, UNI W/ Pelvis 2-3 Views IMPRESSION: Somewhat limited examination. No demonstrated acute fracture. Electronically Signed: Fernie Espinosa MD at 12:23 EDT Tel , Service support ,
--- NOTE | 2020-12-27 10:48 | EDS_ITS ---
HPI History of Present Illness Chief Complaint: Lower Extremity Injury Informant: patient Onset/Context/Timing Onset: Today Context: Sudden Onset Timing: Continuous Quality of Pain: Sharp Location: Right hip Worsened by: Movement, coughing Relieved by: Rest Associated Symptoms Associated Symptoms: Negative for Parasthesia and Weakness Narrative Narrative: Patient presents with right hip pain that began this morning. Patient states he began suddenly this morning. Patient denies any trauma or injury. Patient states the pain is worse with movement. Patient states the pain is also worse with coughing. Patient states the pain is better with rest. Patient denies any paresthesias or weakness. Patient states the pain radiates down the anterior part of her right leg to her foot. Patient denies any fevers or chills. PFSH PFS Medical History Asthma B12 deficiency Cataract Cataracts, bilateral Chronic back pain Diabetes GERD (gastroesophageal reflux disease) History of colon polyps HTN (hypertension) Hyperlipidemia RLS (restless legs syndrome) Home Medications metoprolol succinate 50 mg PO DAILY 05/19/20 [History Last Taken 12/26/20] albuterol sulfate 1 - 2 puff INHALATION Q6H PRN PRN 06/02/20 [History Last Taken 12/26/20] levothyroxine 125 mcg tablet 125 mcg PO DAILY tab 06/09/20 [History Last Taken 12/26/20] fluticasone furoate-vilanterol 1 ea IH DAILY 06/17/20 [History Last Taken 12/26/20] oxycodone 2.5 mg PO Q4H PRN PRN #9 tab 06/25/20 [Rx Last Taken 12/26/20] sennosides-docusate sodium 1 tab PO BID #60 tab 06/25/20 [Rx Last Taken 12/26/20] ascorbic acid (vitamin C) [Vitamin C] 1 g PO DAILY 12/27/20 [History Last Taken 12/26/20] metformin 500 mg PO DAILY 12/27/20 [History Last Taken 12/26/20] pz-rr-jvjyl-lutein-herbal 293 [Alive Women's 50 Plus] 1 tab PO DAILY 12/27/20 [History Last Taken 12/26/20] Allergy/AdvReac Type Severity Reaction Status Date / Time clindamycin Allergy Mild rash Verified 12/27/20 10:38 codeine phosphate AdvReac Severe Nausea Verified 12/27/20 10:38 [From Tylenol-Codeine #3] Family History Mother Heart valve disorder Hypertension Heart disease Father Pneumococcal pneumonia CVA (cerebral vascular accident) Heart disease Myocardial infarction Surgical History History of appendectomy History of bilateral carpal tunnel release History of carpal tunnel release History of colonoscopy (~2012) History of hysterectomy History of loop recorder history of pain stimulator Hx of tonsillectomy Social History (Updated 12/27/20 @ 18:13 by Riya Rain) household members: none housing: apartment number of children: 2 financial difficulty paying for basics: not applicable service: No current occupational status: retired current occupational exposures/hazards: No pets and animals: No leisure activities: exercise and volunteer work Smoking Status: Never smoker ROS ROS ED Constitutional Constitutional ED: Denies chills or fever(s) Eyes Eyes: Denies blurry vision or change in vision ENT ENT ED: Denies rhinorrhea or sore throat Cardiovascular Cardiovascular: Denies chest pain or palpitations Respiratory/Chest Respiratory/Chest: Denies cough or dyspnea Gastrointestinal Gastrointestinal: Denies nausea or vomiting Genitourinary Genitourinary ED: Denies dysuria or hematuria Musculoskeletal Musculoskeletal: Denies back pain or neck pain Integumentary Denies abscess or rash Neurologic Neurologic: Denies headache(s) or weakness Allergic/Immunologic Allergic/Immunologic ED: Denies mouth swelling or urticaria EXAM Physical Exam Const Vital Signs: 12/27/20 10:32 12/27/20 13:02 12/27/20 16:26 Temperature 98.5 F 98.2 F Temperature Source Oral Temporal Pulse Rate 72 76 83 Respiratory Rate 18 16 19 H Blood Pressure 175/70 H 193/75 H 197/80 H Blood Pressure Mean 105 114 119 Pulse Ox 97 96 Oxygen Delivery Method Room Air Room Air Positive well nourished, well developed and obese General Appearance ED: well developed Nutritional Appearance: obese HEENT Reports moist mucous membranes Neck full ROM and supple Resp normal respiratory effort and clear to auscultation bilaterally Cardio regular rate and regular rhythm GI non-tender and non-distended Auscultation: normoactive bowel sounds Palpation: soft Extremity Extremity Narrative: There is mild tenderness of the anterior aspect of the right hip. There is no bony crepitance or step-off. There is good passive range of motion. Active range of motion was limited in all motion secondary to pain. There is no calf tenderness. Sensation was intact to light touch bilaterally in the lower extremities. Strength 5/5 bilaterally in the lower extremities. Pedal pulses are equal bilaterally. Neuro oriented x3, CN's II-XII intact bilaterally, moves all extremities and no sensory deficits noted Sensorium / Orientation: alert Motor Exam: strength 5/5 throughout Psych mental status grossly normal MDM MDM MDM Narrative Medical decision making narrative: Patient was given an injection of morphine here. X-rays of the right hip were obtained. There are 5 views. On my interpretation, there is no acute fracture or dislocation. There are no degenerative changes. Radiologist also interpreted the x-rays and agrees. Patient was able to ambulate to the bathroom without difficulty. Patient will be discharged home. Patient was instructed to use ice to the area. Patient was instructed to follow-up with her primary care physician in 5 to 7 days. Patient was instructed to continue her pain medications as previously prescribed. Patient understood and was agreeable with the plan. All questions were answered. The patient got home and was unable to ambulate due to the pain. Patient return to the emergency department. Case was discussed with the hospitalist. She will admit the patient for rehab. She requested having a CT scan of the hip performed. This was ordered. There is no acute fracture. Patient and family understand and were agreeable with the plan. All questions were answered. Radiography Diagnostic Testing: Radiology Impression Hip/Pelvis X-Ray 12/27/20 10:46 IMPRESSION: Somewhat limited examination. No demonstrated acute fracture. Electronically Signed: Fernie Espinosa MD at 12:23 EDT Tel , Service support , Lower Extremity CT 12/27/20 16:30 IMPRESSION: 1. Normal right hip. 2. Advanced atherosclerosis. Electronically Signed: Marifer Min MD at 18:22 EDT Tel , Service support , Treatment and Re-Evaluation Vital Sign Attestation:: Vital signs were reviewed prior to admission. They are stable. Discharge Plan Dx/Rx/DC Orders Clinical Impression: Strain of muscle of right hip Disposition Disposition: Acute Care Hospital [facility] Discharge Date/Time: 12/27/20 17:21
[2020-12-27] MEDS: Morphine 4 MG/ML Syringe IM (11:28)
[2020-12-27] MEDS: oxyCODONE 5 MG Tablet PO ×2 (13:06→20:43)
--- NOTE | 2020-12-27 14:30 | ED.RN ---
PT RETURNED TO ED AT 1400. PT STATES SHE WAS UNABLE TO MAKE IT THROUGH THE DRIVE HOME D/T THE PAIN BEING SO BAD. PT IS IN A RESTING IN A WHEELCHAIR IN THE WAITING ROOM UNTIL A ROOM BECOMES AVAILABLE. VITAL 169/88 , 86, 16, 95% RA, 98.6 TA.
--- NOTE | 2020-12-27 15:50 | HP.PCM.HOS_ITS ---
HPI - General General Date of Admission: 12/27/20 HPI Narrative JERRELL BAUMAN, is a 75 F with a PMH with a PMh as outlined who presents to the ED with a complaint of right hip pain which started on the morning of admission, and was worse with movement and relieved by rest. Pain radiated down the anterior part of his right leg to her foot. Xrays of the right hip was negative for any fracture. SHe was initially discharged home but came back to the ED because she couldnt ambulate well at home. She does have a history of chronic back pain. Vitals were unremarkable, excpet for an elevated BP of 175/70 at time of admission. She is being admitted to be managed for intractable right hip pain. [facility] Medical History Asthma B12 deficiency Cataract Cataracts, bilateral Chronic back pain Diabetes GERD (gastroesophageal reflux disease) History of colon polyps HTN (hypertension) Hyperlipidemia RLS (restless legs syndrome) Home Medications metoprolol succinate 50 mg PO DAILY 05/19/20 [History Last Taken 12/26/20] albuterol sulfate 1 - 2 puff INHALATION Q6H PRN PRN 06/02/20 [History Last Taken 12/26/20] levothyroxine 125 mcg tablet 125 mcg PO DAILY tab 06/09/20 [History Last Taken 12/26/20] fluticasone furoate-vilanterol 1 ea IH DAILY 06/17/20 [History Last Taken 12/26/20] oxycodone 2.5 mg PO Q4H PRN PRN #9 tab 06/25/20 [Rx Last Taken 12/26/20] sennosides-docusate sodium 1 tab PO BID #60 tab 06/25/20 [Rx Last Taken 12/09 02/28] ascorbic acid (vitamin C) [Vitamin C] 1 g PO DAILY 12/27/20 [History Last Taken 12/26/20] metformin 500 mg PO DAILY 12/27/20 [History Last Taken 12/26/20] hm-wf-dbdwc-lutein-herbal 293 [Alive Women's 50 Plus] 1 tab PO DAILY 12/27/20 [History Last Taken 12/26/20] Allergy/AdvReac Type Severity Reaction Status Date / Time clindamycin Allergy Mild rash Verified 12/27/20 10:38 codeine phosphate AdvReac Severe Nausea Verified 12/27/20 10:38 [From Tylenol-Codeine #3] Family History Mother Heart valve disorder Hypertension Heart disease Father Pneumococcal pneumonia CVA (cerebral vascular accident) Heart disease Myocardial infarction Surgical History History of appendectomy History of bilateral carpal tunnel release History of carpal tunnel release History of colonoscopy (~2012) History of hysterectomy History of loop recorder history of pain stimulator Hx of tonsillectomy Social History (Updated 12/27/20 @ 18:13 by Riya Rain) household members: none housing: apartment number of children: 2 financial difficulty paying for basics: not applicable service: No current occupational status: retired current occupational exposures/hazards: No pets and animals: No leisure activities: exercise and volunteer work Smoking Status: Never smoker ROS Constitutional Constitutional: Reports weakness; Denies anorexia, change in weight, chills, fatigue or fever(s) Eyes Eyes: Denies discharge from eye(s) or double vision ENT HEENT: Denies dysphagia Cardiovascular Cardiovascular: Denies chest pain, dyspnea on exertion, edema, lightheadedness or orthopnea Respiratory/Chest Respiratory/Chest: Denies cough, dyspnea, excessive phlegm production, productive cough, shortness of breath at rest or shortness of breath with exertion Gastrointestinal Gastrointestinal: Denies abdominal pain or coffee ground emesis Genitourinary Genitourinary: Denies burning urination Musculoskeletal Musculoskeletal: Reports joint pain; Denies arthralgias, back pain, joint swelling, myalgias or neck pain Neurologic Neurologic: Denies abnormal gait, focal weakness or numbness Psychiatric Psychiatric: Denies anxiety or depression Endocrine Endocrinology: Denies change in body appearance Hematologic/Lymphatic Hematologic/Lymphatic: Denies anemia Vital Signs Vital Signs Vital Signs: 12/27/20 10:32 12/27/20 13:02 Temperature 98.5 F Temperature Source Oral Pulse Rate 72 76 Respiratory Rate 18 16 Blood Pressure 175/70 H 193/75 H Blood Pressure Mean 105 114 Pulse Ox 97 Oxygen Delivery Method Room Air Weight Weight: 205 lb 4.006 oz Body Mass Index (BMI) 35.0 Physical Exam Const alert and oriented x3 General Appearance: cooperative HEENT normocephalic, head/scalp atraumatic and hearing grossly normal bilaterally Eyes PERRL, EOMs intact bilaterally and conjunctivae normal Neck no lymphadenopathy and supple Resp normal respiratory effort, no retractions, no use of accessory muscles and clear to auscultation bilaterally Cardio regular rate, regular rhythm, S1 normal heart sound, S2 normal heart sound and no murmurs GI normal to inspection, nondistended, normoactive bowel sounds, soft to palpation, non-tender and non-distended Extremity normal to inspection, full ROM and no clubbing, cyanosis or edema Peripheral Pulses: Yes pulses 2+ throughout Skin no rashes or lesions noted Neuro oriented x3 and moves all extremities Sensorium / Orientation: alert Psych affect normal Results Lab / Micro Data Result Diagrams: 12/28/20 05:10 12/28/20 05:10 Micro: Microbiology 12/27/20 11:30 SARS-CoV-2 Antigen (Rapid) - Final Mucosa - Nose Radiology Impression Hip/Pelvis X-Ray 12/27/20 10:46 IMPRESSION: Somewhat limited examination. No demonstrated acute fracture. Electronically Signed: Fernie Espinosa MD at 12:23 EDT Tel , Service support , Assessment & Plan Assessment/Plan (1) Strain of muscle of right hip: PLAN: #Debility due to right hip pain * Pain appears to be radiculopathy as radiates down her right hip front of her right leg. She does have a history of lumbar stenosis * Admit to [facility] * Consult PT OT. Fall precautions. * P.o. Tylenol, p.o. oxycodone and IV morphine prn for pain * xray of the right hip showed no acute pathology; due to persistent pain, will get CT of the right hip * #Hypertension: BP elevated, likely due to pain. continue home BP meds- metoprolol. IV hydralazine prn #Hypothyroidism: On Synthroid DVT prophylaxis: Lovenox CODE STATUS: Full code. * Patient and daughter counseled about differences between full code, DNR CCA and DNR CCA. Patient elects to be full code. Total figm-dr-vidp time 16 minutes. Charges/Coding Visit Charges OBSV E&M: 67171 Initial observation care L2 Procedures Hospitalists Procedures: 40435 Advncd Care Plan 30 Min
--- NOTE | 2020-12-27 16:30 | CT_ITS ---
STUDY: CT BILATERAL HIPS T PELVIS REASON FOR EXAM: Female, 75 years old. Right hip pain RADIATION DOSAGE (If Supplied By Facility): CTDIvol = ( 28.88 ) mGy, DLP = ( 800.35 ) mGycm TECHNIQUE: Transaxial imaging of the pelvis and bilateral hips was performed with oral contrast, and without intravenous administration of contrast material. Individualized dose optimization techniques were used for this CT. COMPARISON: None. FINDINGS: The bones of the pelvis are intact and located. The hip is intact and located. Periarticular soft tissues are normal. There is extensive vascular atherosclerotic calcified plaque. CT/Extremity Lower without Contra IMPRESSION: 1. Normal right hip. 2. Advanced atherosclerosis. Electronically Signed: Marifer Min MD at 18:22 EDT Tel , Service support ,
[2020-12-27] MEDS: Morphine 4 MG/ML Syringe IV (17:15)
[2020-12-27 20:21] LABS: Bedside Glucose 229 mg/dL (70-110)
[2020-12-27] MEDS: Albuterol 2.5 MG/3 ML VIAL.NEB. INHALATION ×2 (20:43→22:46)
[2020-12-27] MEDS: Insulin Lispro 100 UNIT/ML INSULN.PEN SC (20:46)
[2020-12-27] MEDS: Senna/Docusate Sodium 1 Tablet PO (20:48)
[2020-12-28] VITALS (9 sets, daily range): BP systolic 125–166; BP diastolic 58–88; PULSE 70–96; RESP 16–20; TEMP 36.5–37.1; O2SAT 93–98
[2020-12-28] MEDS: oxyCODONE 5 MG Tablet PO ×4 (01:07→20:52)
[2020-12-28 06:13] LABS: Absolute Lymphocyte Count 1.41 X10^3/uL (0.83-4.51); Absolute Neutrophil Count 6.6 X10^3/uL (2.0-7.7); Basophil# 0.07 X10^3/uL; Basophil% 0.8 % (0-1); Eosinophil# 0.11 X10^3/uL; Eosinophils% 1.2 % (0-5); Hematocrit 34.6 % (37-47); Hemoglobin 11.2 g/dL (12.0-15.0); Lymphocyte # 1.41 X10^3/ul (0.83-4.51); Lymphocyte % 15.3 % (19-41); Mean Corp Hgb Conc 32.4 g/dL (32-36); Mean Corpuscular Hgb 34.7 pg (27.0-32.0); Mean Corpuscular Volume 107.1 fL (81-99); Mean Platelet Vol. 11.2 fl (6.2-12.0); Monocyte# 0.94 X10^3/uL; Monocyte% 10.2 % (0-10); NRBC Flagged by Analyzer 0 % (0-5); Neutrophil # 6.56 X10^3/uL (2.7-7.7); Neutrophil % 71.4 % (47-70); Platelet Count 268 K/mm3 (150-450); RBC Distribution Width CV 13.9 % (11.6-14.6); RBC Distribution Width SD 54.7 fl (35.1-43.9); Red Blood Count 3.23 M/mm3 (4.2-5.4); White Blood Count 9.2 K/mm3 (4.4-11.0)
[2020-12-28] MEDS: Levothyroxine 125 MCG Tablet PO (06:16)
[2020-12-28 06:21] LABS: Bedside Glucose 132 mg/dL (70-110)
[2020-12-28] MEDS: Albuterol 2.5 MG/3 ML VIAL.NEB. INHALATION ×3 (06:31→19:33)
[2020-12-28] MEDS: Budesonide Respules 0.5 MG/2 ML AMPUL.NEB. INHALATION ×2 (06:31→19:33)
[2020-12-28 06:39] LABS: Anion Gap 7 (5-15); BUN 18 mg/dL (7-18); BUN/Creat Ratio 22.8 RATIO (10-20); Calcium,Total 8.6 mg/dL (8.5-10.1); Chloride 103 mmol/L (98-107); Creatinine, Serum 0.79 mg/dL (0.55-1.02); EST Glomerular Filtration Rate 75 mL/min (>60); Est Glom Filt Rate - Afr Amer 91 mL/min (>60); Estimated Creatinine Clearance 40.68 ml/min; Glucose 144 mg/dL (74-106); Potassium 4.1 mmol/L (3.5-5.1); Sodium Level 136 mmol/L (136-145)
--- NOTE | 2020-12-28 07:35 | PN.HOSP_ITS ---
Subjective Subjective Patient seen and examined. She still complains of pain in her right leg and request for muscle relaxants. Review systems otherwise negative. She has remained hemodynamically stable. Objective Data Objective Data Vital Signs: Vital Signs Temp Pulse Resp BP Pulse Ox 97.7 F L 76 20 H 154/64 H 98 12/28/20 02:50 12/28/20 07:06 12/28/20 07:06 12/28/20 02:50 12/28/20 07:06 Oxygen Delivery Method Room Air Weight: 187 lb 9.814 oz Body Mass Index (BMI) 32.2 Intake & Output: Intake and Output for Last 24 Hours 12/26/20 12/27/20 12/28/20 23:59 23:59 23:59 Intake Total 650 / 650 Balance 650 / 650 Lab / Micro Data Result Diagrams: 12/28/20 05:10 12/28/20 05:10 Labs: Laboratory Results - last 24 hr 12/27/20 12/28/20 12/28/20 20:13 05:10 05:10 WBC 9.2 RBC 3.23 L Hgb 11.2 L Hct 34.6 L MCV 107.1 H MCH 34.7 H MCHC 32.4 RDW Std Deviation 54.7 H RDW Coeff of Taran 13.9 Plt Count 268 MPV 11.2 Immature Gran % (Auto) 1.100 H Neut % (Auto) 71.4 H Lymph % (Auto) 15.3 L [place] % (Auto) 10.2 H Eos % (Auto) 1.2 Baso % (Auto) 0.8 Absolute Neuts (auto) 6.6 Absolute Lymphs (auto) 1.41 Nucleated RBC % 0 Sodium 136 Potassium 4.1 Chloride 103 Carbon Dioxide 26.0 Anion Gap 7 BUN 18 Creatinine 0.79 Estim Creat Clear Calc 40.68 Est GFR (MDRD) Af Amer 91 Est GFR (MDRD) Non-Af 75 BUN/Creatinine Ratio 22.8 H Glucose 144 H Calcium 8.6 POC Glucose 229 H 12/28/20 06:12 WBC RBC Hgb Hct MCV MCH MCHC RDW Std Deviation RDW Coeff of Taran Plt Count MPV Immature Gran % (Auto) Neut % (Auto) Lymph % (Auto) [place] % (Auto) Eos % (Auto) Baso % (Auto) Absolute Neuts (auto) Absolute Lymphs (auto) Nucleated RBC % Sodium Potassium Chloride Carbon Dioxide Anion Gap BUN Creatinine Estim Creat Clear Calc Est GFR (MDRD) Af Amer Est GFR (MDRD) Non-Af BUN/Creatinine Ratio Glucose Calcium POC Glucose 132 H Micro: Microbiology 12/27/20 11:30 Mucosa - Nose SARS-CoV-2 Antigen (Rapid) - Final Radiography Diagnostic Testing: Radiology Impression Hip/Pelvis X-Ray 12/27/20 10:46 IMPRESSION: Somewhat limited examination. No demonstrated acute fracture. Electronically Signed: Fernie Espinosa MD at 12:23 EDT Tel , Service support , Lower Extremity CT 12/27/20 16:30 IMPRESSION: 1. Normal right hip. 2. Advanced atherosclerosis. Electronically Signed: Marifer Min MD at 18:22 EDT Tel , Service support , Physical Exam Const alert and oriented x3 General Appearance: cooperative HEENT normocephalic, head/scalp atraumatic and hearing grossly normal bilaterally Eyes PERRL, EOMs intact bilaterally and conjunctivae normal Neck no lymphadenopathy and supple Resp normal respiratory effort, no retractions, no use of accessory muscles and clear to auscultation bilaterally Cardio regular rate, regular rhythm, S1 normal heart sound, S2 normal heart sound and no murmurs GI normal to inspection, nondistended, normoactive bowel sounds, soft to palpation, non-tender and non-distended Extremity normal to inspection, full ROM and no clubbing, cyanosis or edema Skin no rashes or lesions noted Neuro oriented x3 and moves all extremities Sensorium / Orientation: alert Psych affect normal Assessment & Plan Assessment/Plan (1) Strain of muscle of right hip: PLAN: #Debility due to right hip pain * CT of the RLE was negative for any evidence of fracture. Likely due to radiculopathy from lumbar spinal stenosis * PT/OT on board. * fall precautions * start on zanaflex for muscle spasms. * P.o. Tylenol, p.o. oxycodone and IV morphine prn for pain * #Hypertension: on metoprolol. BP is now in the 150s. IV hydralazine prn #Hypothyroidism: On Synthroid DVT prophylaxis: Lovenox Disposition: wants to be placed for therapy to get her strength back before she goes home. Case management to facilitate discharge planning Charges/Coding Visit Charges OBSV E&M: 88296 Subsequent observation care L2
[2020-12-28] MEDS: Multivitamins,Ther W-Minerals Tablet 1 TABLET PO (07:55)
[2020-12-28] MEDS: Senna/Docusate Sodium 1 Tablet PO ×2 (10:36→20:46)
[2020-12-28] MEDS: Ascorbic Acid 500 MG Tablet 1000 MG PO (10:36)
[2020-12-28] MEDS: Metoprolol(XL)Succ 50 MG Tablet PO (10:37)
[2020-12-28] MEDS: Enoxaparin 40 MG/0.4 ML Syringe SC (10:37)
[2020-12-28] MEDS: Insulin Lispro 100 UNIT/ML INSULN.PEN SC ×2 (11:33→20:46)
[2020-12-28 11:41] LABS: Bedside Glucose 182 mg/dL (70-110)
[2020-12-28 17:30] LABS: Bedside Glucose 125 mg/dL (70-110)
[2020-12-28 21:01] LABS: Bedside Glucose 212 mg/dL (70-110)
[2020-12-28] MEDS: tiZANidine HCl 2 MG Tablet 4 MG PO (22:38)
[2020-12-29 02:24] VITALS: BP 137/66; PULSE 64; RESP 17; TEMP 36.5; O2SAT 96
[2020-12-29] MEDS: Levothyroxine 125 MCG Tablet PO (06:30)
[2020-12-29] MEDS: tiZANidine HCl 2 MG Tablet 4 MG PO ×2 (06:32→15:48)
[2020-12-29 06:40] LABS: Bedside Glucose 125 mg/dL (70-110)
[2020-12-29 07:03] LABS: Absolute Lymphocyte Count 1.71 X10^3/uL (0.83-4.51); Absolute Neutrophil Count 6.5 X10^3/uL (2.0-7.7); Basophil# 0.09 X10^3/uL; Basophil% 0.9 % (0-1); Eosinophil# 0.18 X10^3/uL; Eosinophils% 1.9 % (0-5); Hematocrit 37.5 % (37-47); Hemoglobin 12.2 g/dL (12.0-15.0); Lymphocyte # 1.71 X10^3/ul (0.83-4.51); Mean Corp Hgb Conc 32.5 g/dL (32-36); Mean Corpuscular Hgb 35.1 pg (27.0-32.0); Mean Corpuscular Volume 107.8 fL (81-99); Mean Platelet Vol. 11.3 fl (6.2-12.0); Monocyte# 0.91 X10^3/uL; Monocyte% 9.6 % (0-10); NRBC Flagged by Analyzer 0 % (0-5); Neutrophil # 6.48 X10^3/uL (2.7-7.7); Neutrophil % 68.3 % (47-70); Platelet Count 267 K/mm3 (150-450); RBC Distribution Width CV 13.5 % (11.6-14.6); RBC Distribution Width SD 53.5 fl (35.1-43.9); Red Blood Count 3.48 M/mm3 (4.2-5.4); White Blood Count 9.5 K/mm3 (4.4-11.0)
[2020-12-29 07:29] LABS: Anion Gap 8 (5-15); BUN 15 mg/dL (7-18); BUN/Creat Ratio 17.7 RATIO (10-20); Calcium,Total 8.5 mg/dL (8.5-10.1); Chloride 99 mmol/L (98-107); Creatinine, Serum 0.85 mg/dL (0.55-1.02); EST Glomerular Filtration Rate 69 mL/min (>60); Est Glom Filt Rate - Afr Amer 83 mL/min (>60); Estimated Creatinine Clearance 47.86 ml/min; Glucose 126 mg/dL (74-106); Potassium 3.9 mmol/L (3.5-5.1); Sodium Level 133 mmol/L (136-145)
[2020-12-29] MEDS: oxyCODONE 5 MG Tablet PO ×3 (08:13→17:06)
[2020-12-29 08:21] VITALS: BP 144/73; PULSE 59; RESP 18; TEMP 36.3; O2SAT 98
[2020-12-29] MEDS: Multivitamins,Ther W-Minerals Tablet 1 TABLET PO (08:24)
[2020-12-29 08:25] VITALS: BP 144/73; PULSE 59
[2020-12-29] MEDS: Metoprolol(XL)Succ 50 MG Tablet PO (08:25)
[2020-12-29] MEDS: Ascorbic Acid 500 MG Tablet 1000 MG PO (08:25)
[2020-12-29] MEDS: Senna/Docusate Sodium 1 Tablet PO (08:25)
[2020-12-29] MEDS: Furosemide 40 MG Tablet PO (08:27)
--- NOTE | 2020-12-29 10:50 | NURSING ---
PT STATES PAIN OK AT THE MOMENT. LONG I'M NOT MOVING
[2020-12-29] MEDS: Enoxaparin 40 MG/0.4 ML Syringe SC (10:57)
--- NOTE | 2020-12-29 11:10 | CASEMGMT ---
ANITA CM in to discuss SHAH form with patient. RN CM explained SHAH form, patient voiced understanding. Pt signed form and filed in chart. Pt provided with a copy of signed SHAH form. Patient had no further questions or concerns at this time.
--- NOTE | 2020-12-29 11:12 | NURSING ---
PT VERY PAINFUL. NO PRNS DUE @ THIS TIME. COTEXT TO DR HALL FOR ANY ADDITIONAL ORDERS.
--- NOTE | 2020-12-29 11:57 | CASEMGMT ---
SW spoke w/pt at the bedside, in regard to [facility] placement for rehab. Pt agreeable to rehab in SNF. SW provided list of group home facilities in pt's preferred geographic area, that takes pt's insurance and can manage pt's medical care; list also includes quality and resource use data. Pt would like to go to TCU. SW spoke w/Rhianna in TCU, they can take pt and will start precert, SW let pt know. SW will continue to follow. Plan: TCU pending precert. ZULLY Wilson
[2020-12-29] MEDS: Albuterol 2.5 MG/3 ML VIAL.NEB. INHALATION (12:09)
[2020-12-29] MEDS: Budesonide Respules 0.5 MG/2 ML AMPUL.NEB. INHALATION (12:09)
[2020-12-29 12:11] LABS: Bedside Glucose 98 mg/dL (70-110)
[2020-12-29] MEDS: Gabapentin 300 MG Capsule PO ×2 (12:26→17:05)
[2020-12-29 12:56] VITALS: PULSE 71; RESP 18
--- NOTE | 2020-12-29 13:50 | PCM.PN.HOSP ---
Subjective Subjective Patient states she is having consistent right posterior hip pain. She is currently ambulating with a walker but states at home she typically walks without an assistive device. She is having ongoing pain in that region and states her pain is not controlled as well as she thinks it could be. Objective Data Objective Data Vital Signs: Vital Signs Temp Pulse Resp BP Pulse Ox 97.3 F L 71 18 144/73 H 98 12/29/20 08:21 12/29/20 12:56 12/29/20 12:56 12/29/20 08:25 12/29/20 08:21 Oxygen Delivery Method Room Air Weight: 85.1 kg Body Mass Index (BMI) 32.2 Intake & Output: Intake and Output for Last 24 Hours 12/27/20 12/28/20 12/29/20 23:59 23:59 23:59 Intake Total 1050 / 1050 700 / 700 Balance 1050 / 1050 700 / 700 Lab / Micro Data Result Diagrams: 12/29/20 06:05 12/29/20 06:05 Labs: Laboratory Results - last 24 hr 12/28/20 12/28/20 12/29/20 17:11 20:43 06:05 WBC 9.5 RBC 3.48 L Hgb 12.2 Hct 37.5 MCV 107.8 H MCH 35.1 H MCHC 32.5 RDW Std Deviation 53.5 H RDW Coeff of Taran 13.5 Plt Count 267 MPV 11.3 Immature Gran % (Auto) 1.300 H Neut % (Auto) 68.3 Lymph % (Auto) 18.0 L [place] % (Auto) 9.6 Eos % (Auto) 1.9 Baso % (Auto) 0.9 Absolute Neuts (auto) 6.5 Absolute Lymphs (auto) 1.71 Nucleated RBC % 0 Sodium Potassium Chloride Carbon Dioxide Anion Gap BUN Creatinine Estim Creat Clear Calc Est GFR (MDRD) Af Amer Est GFR (MDRD) Non-Af BUN/Creatinine Ratio Glucose Calcium POC Glucose 125 H 212 H 12/29/20 12/29/20 12/29/20 06:05 06:29 11:42 WBC RBC Hgb Hct MCV MCH MCHC RDW Std Deviation RDW Coeff of Taran Plt Count MPV Immature Gran % (Auto) Neut % (Auto) Lymph % (Auto) [place] % (Auto) Eos % (Auto) Baso % (Auto) Absolute Neuts (auto) Absolute Lymphs (auto) Nucleated RBC % Sodium 133 L Potassium 3.9 Chloride 99 Carbon Dioxide 26.0 Anion Gap 8 BUN 15 Creatinine 0.85 Estim Creat Clear Calc 47.86 Est GFR (MDRD) Af Amer 83 Est GFR (MDRD) Non-Af 69 BUN/Creatinine Ratio 17.7 Glucose 126 H Calcium 8.5 POC Glucose 125 H 98 Micro: Microbiology 12/27/20 11:30 Mucosa - Nose SARS-CoV-2 Antigen (Rapid) - Final Physical Exam Const alert, oriented x3 and no apparent distress Constitutional Narrative: Older white female, ambulating back with a walker from the bathroom to the chair, appears to be in mild discomfort, very pleasant Exam Limitations: no limitations HEENT head/scalp atraumatic Head and Scalp: normocephalic Eyes PERRL and EOMs intact bilaterally Neck supple Neck Narrative: Trachea midline Resp normal respiratory effort, no retractions, no use of accessory muscles and clear to auscultation bilaterally Cardio regular rate, regular rhythm, S1 normal heart sound, S2 normal heart sound, no murmurs, no rub, no gallops, no clicks and no JVD GI normal to inspection, nondistended, normoactive bowel sounds, soft to palpation, non-tender and non-distended Extremity normal to inspection and no clubbing, cyanosis or edema Skin no rashes or lesions noted, no wounds, skin turgor normal, no jaundice, no petechiae and no mottling Neuro oriented x3 Neuro Narrative: Reflexes are symmetrical bilaterally decreased strength right lower extremity secondary to pain Sensorium / Orientation: awake and alert Psych affect normal Psych Narrative: Very pleasant Assessment & Plan Assessment/Plan (1) Intractable low back pain: (2) Lumbar spinal stenosis: (3) Chronic low back pain: (4) Bilateral sacral insufficiency fracture with delayed healing: (5) Hypertension: (6) Hypothyroidism: PLAN: Intractable low back pain secondary to radiculopathy -Pain has consistently been in the right leg -Continue narcotics as needed -Continue muscle relaxant -Add gabapentin -Add Decadron 4 mg daily x5 days -Patient had recent decompression laminectomy at L3-L4 on 06/17/2020 -consider lumbar MRI if pain does not improve -Patient will need follow-up with Dr. Orta as an outpatient -CT and x-ray are unimpressive -Continue PT/OT DM-2 -A1c obtained on 06/18/2021 was 6.7 -May need sliding scale with Decadron -Check a.m. BMP -Add Accu-Cheks -Metformin is currently on hold Hypertension -Continue metoprolol 50 mg daily -Continue Lasix 40 mg daily -Continue as needed hydralazine Hypothyroidism -Continue Synthroid DVT prophylaxis -Enoxaparin 40 mg daily CODE STATUS -Full code Charges/Coding Visit Charges Inpatient E&M: 73532 Subs Hosp L2
[2020-12-29 14:30] VITALS: BP 187/65; PULSE 81; RESP 18; TEMP 36.6; O2SAT 97
--- NOTE | 2020-12-29 15:58 | DS.PCM_ITS ---
Providers Date of Admission: 12/27/20 Primary Care Physician: Dr. Jaime Culver MD Reason For Visit: DEBILITY DUE TO RIGHT HIP PAIN Diagnosis Discharge Diagnosis (1) Intractable low back pain: Status: Acute Code(s): M54.5 - Low back pain (2) Lumbar spinal stenosis: Status: Chronic Code(s): M48.061 - Spinal stenosis, lumbar region without neurogenic claudication (3) Chronic low back pain: Status: Chronic Code(s): M54.5 - Low back pain; G89.29 - Other chronic pain (4) Bilateral sacral insufficiency fracture with delayed healing: Status: Acute Code(s): M84.48XG - Pathological fracture, other site, subsequent encounter for fracture with delayed healing (5) Hypertension: Status: Chronic Code(s): I10 - Essential (primary) hypertension (6) Hypothyroidism: Status: Chronic Code(s): E03.9 - Hypothyroidism, unspecified Medications at Discharge Home Medications metoprolol succinate 50 mg PO DAILY 05/19/20 albuterol sulfate 1 - 2 puff INHALATION Q6H PRN PRN 06/02/20 levothyroxine 125 mcg tablet 125 mcg PO DAILY tab 06/09/20 fluticasone furoate-vilanterol 1 ea IH DAILY 06/17/20 sennosides-docusate sodium 1 tab PO BID #60 tab 06/25/20 Alive Women's 50 Plus 1 tab PO DAILY 12/27/20 ascorbic acid (vitamin C) 1 g PO DAILY 12/27/20 metformin 500 mg PO DAILY 12/27/20 furosemide [Lasix] 40 mg PO DAILY 12/28/20 dexamethasone 4 mg PO BREAKFAST #0 tab 12/29/20 enoxaparin 40 mg SUBCUT DAILY #0 ml 12/29/20 gabapentin 300 mg PO TIDCM #0 cap 12/29/20 insulin lispro [Humalog KwikPen Insulin] See Protocol SUBCUT ACHS #0 ml 12/29/20 oxycodone 5 mg PO Q4H PRN PRN #0 tab 12/29/20 tizanidine 4 mg PO Q8H PRN PRN #0 tab 12/29/20 Hospital Course Operations None Summary of Care Provided Minutes Spent on Discharge: 41 Hospital Course: Mrs. Strickland is a 75-year-old white female who presented to the emergency department was from hospital on 12/27/2020 with a chief complaint of posterior right hip pain which started the morning of admission. At that time she reported that her pain was worse with movement and was relieved by rest. The pain radiated down the anterior part of her right leg to her foot. X-rays were negative for any signs of fracture. She initially was discharged home but came back to the emergency department because she could not ambulate well and take care of her self at home. She does have a history of chronic low back pain for which a decompression laminectomy was performed in 2019 for left-sided pain. A CT of her hip and pelvis was performed and showed no remarkable abnormality at the hip joint. PT and OT saw the patient and recommended further rehab as an inpatient. She is currently ambulating with walker and ambulates independently at home. For pain she has been placed on oxycodone, a muscle relaxant, gabapentin, and a 5-day course of Decadron which was started today. If her pain is persistent I would recommend an MRI of her lumbar spine given her previous spinal surgery. Her blood sugars may be elevated after discharge with the Decadron. Depending on Accu-Cheks I would consider initiating a sliding scale in the TCU if her blood sugars are elevated. Weight / BMI Weight Weight: 85.1 kg Body Mass Index (BMI) 32.2 ABG / Lab / Microbiology Data Result Diagrams: 12/29/20 06:05 12/29/20 06:05 Laboratory: Laboratory Results - last 24 hr 12/28/20 12/28/20 12/29/20 17:11 20:43 06:05 WBC 9.5 RBC 3.48 L Hgb 12.2 Hct 37.5 MCV 107.8 H MCH 35.1 H MCHC 32.5 RDW Std Deviation 53.5 H RDW Coeff of Taran 13.5 Plt Count 267 MPV 11.3 Immature Gran % (Auto) 1.300 H Neut % (Auto) 68.3 Lymph % (Auto) 18.0 L [place] % (Auto) 9.6 Eos % (Auto) 1.9 Baso % (Auto) 0.9 Absolute Neuts (auto) 6.5 Absolute Lymphs (auto) 1.71 Nucleated RBC % 0 Sodium Potassium Chloride Carbon Dioxide Anion Gap BUN Creatinine Estim Creat Clear Calc Est GFR (MDRD) Af Amer Est GFR (MDRD) Non-Af BUN/Creatinine Ratio Glucose Calcium POC Glucose 125 H 212 H 12/29/20 12/29/20 12/29/20 06:05 06:29 11:42 WBC RBC Hgb Hct MCV MCH MCHC RDW Std Deviation RDW Coeff of Taran Plt Count MPV Immature Gran % (Auto) Neut % (Auto) Lymph % (Auto) [place] % (Auto) Eos % (Auto) Baso % (Auto) Absolute Neuts (auto) Absolute Lymphs (auto) Nucleated RBC % Sodium 133 L Potassium 3.9 Chloride 99 Carbon Dioxide 26.0 Anion Gap 8 BUN 15 Creatinine 0.85 Estim Creat Clear Calc 47.86 Est GFR (MDRD) Af Amer 83 Est GFR (MDRD) Non-Af 69 BUN/Creatinine Ratio 17.7 Glucose 126 H Calcium 8.5 POC Glucose 125 H 98 Microbiology: Microbiology 12/27/20 11:30 Mucosa - Nose SARS-CoV-2 Antigen (Rapid) - Final D/C Instructions Discharge Diet: Low fat / Low cholesterol and 1800 Calorie Control Diet Discharge Activity: Return to Normal Activity and Use Walker Meaningful Use Info Meaningful Use Diagnoses (Choose all that apply): None applicable Discharge Plan Admission Admit Date/Time: 12/27/20 16:05 Primary Reason for Your Visit: Intractable right posterior hip pain Attending Provider: Sallie Lebron Primary Care Provider: Jaime Culver Chi Instructions Patient Instructions: ED Hip Strain Discharge Orders/Prescriptions Prescriptions: New dexamethasone 4 mg Tablet 4 mg PO BREAKFAST Qty: 0 RF: 0 gabapentin 300 mg Capsule 300 mg PO TIDCM Qty: 0 RF: 0 insulin lispro [Humalog KwikPen Insulin] 100 unit/mL Insulin Pen See Protocol unit subcut ACHS Qty: 0 RF: 0 tizanidine 2 mg Tablet 4 mg PO Q8H PRN PRN (Reason: Muscle Spasm) Qty: 0 RF: 0 oxycodone 5 mg Tablet 5 mg PO Q4H PRN PRN (Reason: Pain Score 4-5) Qty: 0 RF: 0 enoxaparin 40 mg/0.4 mL Syringe 40 mg subcut DAILY Qty: 0 RF: 0 Continued levothyroxine 125 mcg tablet 125 mcg PO DAILY RF: 0 metoprolol succinate 50 MG tablet extended release 24 hr 50 mg PO DAILY RF: 0 albuterol sulfate 1 PUFF inhaler 1 - 2 puff INHALATION Q6H PRN PRN (Reason: Sob &/Or Wheezing) RF: 0 fluticasone furoate-vilanterol 1 EACH blister with device 1 ea IH DAILY RF: 0 sennosides-docusate sodium 1 TABLET tablet 1 tab PO BID Qty: 60 RF: 0 ascorbic acid (vitamin C) 1,000 mg Tablet,Chewable 1 g PO DAILY RF: 0 Alive Women's 50 Plus 120 mcg-150 mcg -37.5 mg Tablet,Chewable 1 tab PO DAILY RF: 0 metformin 500 mg Tablet Extended Release 24 Hr 500 mg PO DAILY RF: 0 furosemide [Lasix] 40 mg Tablet 40 mg PO DAILY RF: 0 Discontinued oxycodone 5 MG tablet 2.5 mg PO Q4H PRN PRN (Reason: Pain Score 4-10) Qty: 9 RF: 0 Referrals / Follow Up: Jaime Culver Chi, MD [Primary Care Provider] - 3-5 Days Disposition Disposition (needs filled in before D/C Order can be placed): Care Home Facility Charges/Coding Visit Charges Inpatient E&M: 45985 Disch Hosp
--- NOTE | 2020-12-29 16:00 | CASEMGMT ---
Social Work Note VENICE received call from Rhianna with TCU stating pre-cert has been obtained and pt can discharge to TCU today. VENICE updated pt. VENICE updated physician. Plan: TCU today Christina Gonzalez MSW, [employer]OPER
--- NOTE | 2020-12-29 16:12 | TREXTCAR_ITS ---
Diet 12/27/20 18:08 Diet: Cardiac - Heart Healthy Food consistency:: Regular Liquid Consistency:: Regular/Thin Wound(s) R elbow: Wound Type: Skin Tear Problem/Diagnosis (1) Intractable low back pain: Status: Acute (2) Lumbar spinal stenosis: Status: Chronic (3) Chronic low back pain: Status: Chronic (4) Bilateral sacral insufficiency fracture with delayed healing: Status: Acute (5) Hypertension: Status: Chronic (6) Hypothyroidism: Status: Chronic Allergies/Procedures Done in Hospital Allergies clindamycin Allergy (Mild, Verified 12/27/20 10:38) rash codeine phosphate [From Tylenol-Codeine #3] Adverse Reaction (Severe, Verified 12/27/20 10:38) Nausea Type of Care/Length of Stay Estimated LOS: Convalescent Care Less Than 30 days Type of Care Needed: Skilled Rehab Potential: Good Prognosis: Good Additional Orders/Day of Discharge Day of Discharge: 12/29/20 Discharge Plan Admission Admit Date/Time: 12/27/20 16:05 Primary Reason for Your Visit: Intractable right posterior hip pain Attending Provider: Sallie Lebron Primary Care Provider: Jaime Culver Chi Instructions Patient Instructions: ED Hip Strain Discharge Orders/Prescriptions Prescriptions: New dexamethasone 4 mg Tablet 4 mg PO BREAKFAST Qty: 0 RF: 0 gabapentin 300 mg Capsule 300 mg PO TIDCM Qty: 0 RF: 0 insulin lispro [Humalog KwikPen Insulin] 100 unit/mL Insulin Pen See Protocol unit subcut ACHS Qty: 0 RF: 0 tizanidine 2 mg Tablet 4 mg PO Q8H PRN PRN (Reason: Muscle Spasm) Qty: 0 RF: 0 oxycodone 5 mg Tablet 5 mg PO Q4H PRN PRN (Reason: Pain Score 4-5) Qty: 0 RF: 0 enoxaparin 40 mg/0.4 mL Syringe 40 mg subcut DAILY Qty: 0 RF: 0 Continued levothyroxine 125 mcg tablet 125 mcg PO DAILY RF: 0 metoprolol succinate 50 MG tablet extended release 24 hr 50 mg PO DAILY RF: 0 albuterol sulfate 1 PUFF inhaler 1 - 2 puff INHALATION Q6H PRN PRN (Reason: Sob &/Or Wheezing) RF: 0 fluticasone furoate-vilanterol 1 EACH blister with device 1 ea IH DAILY RF: 0 sennosides-docusate sodium 1 TABLET tablet 1 tab PO BID Qty: 60 RF: 0 ascorbic acid (vitamin C) 1,000 mg Tablet,Chewable 1 g PO DAILY RF: 0 Alive Women's 50 Plus 120 mcg-150 mcg -37.5 mg Tablet,Chewable 1 tab PO DAILY RF: 0 metformin 500 mg Tablet Extended Release 24 Hr 500 mg PO DAILY RF: 0 furosemide [Lasix] 40 mg Tablet 40 mg PO DAILY RF: 0 Discontinued oxycodone 5 MG tablet 2.5 mg PO Q4H PRN PRN (Reason: Pain Score 4-10) Qty: 9 RF: 0 Referrals / Follow Up: Jaime Culver Chi, MD [Primary Care Provider] - 3-5 Days Disposition Disposition (needs filled in before D/C Order can be placed): Assisted Facility
[2020-12-29] MEDS: Insulin Lispro 100 UNIT/ML INSULN.PEN SC (16:53)
[2020-12-29 17:01] LABS: Bedside Glucose 189 mg/dL (70-110)
[2020-12-29] MEDS: dexAMETHasone 4 MG Tablet PO ×2 (17:05)
--- NOTE | 2020-12-29 17:16 | NURSING ---
REPORT CALLED TO ANITA BOB ON TCU
--- NOTE | 2020-12-29 18:46 | NURSING ---
LATE ENTRY - 1829 - PT TO TCU VIA BED
== END 2020-12-29 18:28 | disposition skilled nursing facility (03) ==
LOC: ED 12:37 → MS3 22:39
PROVIDERS: Admitting Provider Student in an Organized Health Care Education/Training Program; Emergency Provider Emergency Medicine; PCP Family Medicine Geriatric Medicine; Visit Provider Internal Medicine
DX: M25.551 Pain in right hip (principal); E78.5 Hyperlipidemia, unspecified; K21.9 Gastro-esophageal reflux disease without esophagitis; E11.36 Type 2 diabetes mellitus with diabetic cataract; J45.909 Unspecified asthma, uncomplicated; I10 Essential (primary) hypertension; G25.81 Restless legs syndrome; G89.29 Other chronic pain; E03.9 Hypothyroidism, unspecified; M48.061 Spinal stenosis, lumbar region without neurogenic claudication; Z79.899 Other long term (current) drug therapy; Z79.51 Long term (current) use of inhaled steroids; Z79.84 Long term (current) use of oral hypoglycemic drugs
CPT/HCPCS: 36415; 73502; 73700; 80048; 82962; 85025; 87426; 94640; 96372; 96374; 97110; 97162; 97165; 97530; 97535; 99218; 99285; A4216; G0378

== ENCOUNTER 2020-12-29 18:41 | Inpatient (IN) | payer MEDICARE, SELFPAY ==
[2020-12-27 17:43] VITALS: BMI 32.2
[2020-12-29 18:47] VITALS: BP 132/60; PULSE 81; RESP 18; TEMP 36.5; O2SAT 95; BMI 32.5
--- NOTE | 2020-12-29 19:46 | HP.PCM_ITS ---
HPI - General General Date of Admission: 12/29/20 HPI Narrative 12/27/2020 JERRELL BAUMAN, is a 75 Female who presents to [facility] Emergency Department with lower extremity injury. Right hip pain, suddenly this morning. No trauma, pain worse with movement, pain worse with coughing. Right hip pain radiates to right leg, right foot. Morphine given. X-ray right hip, negative for fracture, negative dislocation. Patient discharged home, unable to walk, came back to ED. 12/27/2020 Admit to Hospital. PT/OT for debility. Oxycodone, Morphine IV for pain. Hydralazine IV as needed for elevated blood pressure. 12/27/2020 CT right hip normal. 12/28/2020 Zanaflex added for muscle spasm. 12/29/2020 Walking with walker, but usually walks unassisted at home. Patient feels her pain is not well controlled. Add Gabapentin, Add Decadron. consider MRI LS spine if no improvement. 12/29/2020 Admit to TCU with debility, here for rehabilitation, strengthening, prior to discharge home alone. [facility] Medical History Asthma B12 deficiency Cataract Cataracts, bilateral Chronic back pain Diabetes GERD (gastroesophageal reflux disease) History of colon polyps HTN (hypertension) Hyperlipidemia RLS (restless legs syndrome) Home Medications metoprolol succinate 50 mg PO DAILY 05/19/20 [History Last Taken 12/26/20] albuterol sulfate 1 - 2 puff INHALATION Q6H PRN PRN 06/02/20 [History Last Taken 12/26/20] levothyroxine 125 mcg tablet 125 mcg PO DAILY tab 06/09/20 [History Last Taken 12/26/20] fluticasone furoate-vilanterol 1 ea IH DAILY 06/17/20 [History Last Taken 12/26/20] Alive Women's 50 Plus 1 tab PO DAILY 12/27/20 [History Last Taken 12/26/20] ascorbic acid (vitamin C) 1 g PO DAILY 12/27/20 [History Last Taken 12/26/20] metformin 500 mg PO DAILY 12/27/20 [History Last Taken 12/26/20] furosemide [Lasix] 40 mg PO DAILY 12/28/20 [History Last Taken Unknown] dexamethasone 4 mg PO BREAKFAST 12/29/20 [History Last Taken Unknown] enoxaparin 40 mg SUBCUT DAILY 12/29/20 [History Last Taken Unknown] gabapentin 300 mg PO TIDCM 12/29/20 [History Last Taken Unknown] insulin lispro [Humalog KwikPen Insulin] See Protocol SUBCUT ACHS 12/29/20 [History Last Taken Unknown] oxycodone 5 mg PO Q4H PRN PRN #0 tab 12/29/20 [Rx Last Taken Unknown] sennosides-docusate sodium 1 tablet PO BID 12/29/20 [History Last Taken Unknown] tizanidine 4 mg PO Q8H PRN PRN #0 tab 12/29/20 [Rx Last Taken Unknown] Allergy/AdvReac Type Severity Reaction Status Date / Time clindamycin Allergy Mild rash Verified 12/27/20 10:38 codeine phosphate AdvReac Severe Nausea Verified 12/27/20 10:38 [From Tylenol-Codeine #3] Family History Mother Heart valve disorder Hypertension Heart disease Father Pneumococcal pneumonia CVA (cerebral vascular accident) Heart disease Myocardial infarction Surgical History History of appendectomy History of bilateral carpal tunnel release History of carpal tunnel release History of colonoscopy (~2012) History of hysterectomy History of loop recorder history of pain stimulator Hx of tonsillectomy Social History household members: none housing: apartment number of children: 2 current occupational status: retired current occupational exposures/hazards: No pets and animals: No leisure activities: exercise and volunteer work Smoking Status: Never smoker ROS Constitutional Constitutional: Denies chills, fever(s) or weight gain ENT HEENT: Denies headache(s), nasal congestion or nasal discharge Cardiovascular Cardiovascular: Denies chest pain or palpitations Respiratory/Chest Respiratory/Chest: Denies cough, excessive phlegm production or shortness of breath with exertion Gastrointestinal Gastrointestinal: Denies abdominal pain, nausea or vomiting Genitourinary Genitourinary: Denies dysuria Musculoskeletal Musculoskeletal: Denies joint pain or joint swelling Integumentary Integumentary: Denies rash or wounds Neurologic Neurologic: Denies focal weakness, numbness or tingling Psychiatric Psychiatric: Reports auditory hallucinations; Denies anxiety, depression, homicidal ideation or suicidal ideation Vital Signs Vital Signs Vital Signs: 12/29/20 18:47 Temperature 97.7 F L Temperature Source Temporal Pulse Rate 81 Pulse Rhythm Regular Pulse Strength Normal (2+) Respiratory Rate 18 Respiratory Effort Normal Non-Labored Respiratory Depth Normal Respiratory Pattern Normal Blood Pressure 132/60 H Blood Pressure Mean 84 Pulse Ox 95 Oxygen Delivery Method Room Air Weight Weight: 86.1 kg Body Mass Index (BMI) 32.5 Physical Exam Const alert and oriented x3 General Appearance: cooperative HEENT normocephalic Eyes PERRL and EOMs intact bilaterally Neck supple, no JVD and no carotid bruits Resp normal respiratory effort, normal air movement and clear to auscultation bilaterally Cardio regular rate and regular rhythm GI normal to inspection, nondistended, normoactive bowel sounds, non-tender and non-distended Extremity normal capillary refill General Extremity: Negative for edema Skin no rashes or lesions noted General Skin Exam: no breakdown Psych affect normal Appearance: appropriate Results Lab / Micro Data Result Diagrams: 12/30/20 05:15 12/30/20 05:15 Assessment & Plan Assessment/Plan (1) Debility: (2) Right lumbar radiculopathy: (3) Lumbar spinal stenosis: (4) Muscle spasm: (5) Diabetes mellitus: (6) Hypertension: (7) Hypothyroidism: (8) Asthma: PLAN: 75 year old female with below past medical history hospitalized for right sciatic pain secondary to lumbar spinal stenosis, admitted to TCU with debility, here for rehabilitation, strengthening, prior to discharge home alone. * Debility - PT/OT. * Pain - Tylenol 1000MG Q6H PRN pain (1-3), Oxycodone 5MG Q4H PRN pain (4-10). * Bowel - Miralax 17GM daily, Senna/colace 2 tablets BID, Dulcolax 10MG daily PRN. * Adult immunization - Administer Prevnar 13, Pneumovax 23, Fluzone, COVID19 vaccine as appropriate. * DVT prophylaxis - Lovenox 40MG SC daily. * Asthma - Wixela 250/50 1 puff Q12H, Albuterol 1-2 puff Q6H PRN. * Edema - Lasix 40MG daily. * Right lumbar radiculopathy - Gabapentin 300MG TIDCM, order MRI LS spine, consider Dr. Orta as needed. * Hypothyroidism - Levothyroxine 125MCG daily. * Diabetes Mellitus II - Metformin 500MG QAM. * Hypertension - Metoprolol succinate 50MG daily. * Lumbar spinal stenosis - Medrol dose pack, Naproxen 500MG BID with food. * GERD - Add Pantoprazole 40MG daily for stomach protection. * Muscle spasm - Rx Baclofen 10MG TID.
--- NOTE | 2020-12-29 19:49 | NURSING ---
Patient is having her daughter bring her Vaccine card in from [facility]
[2020-12-29] MEDS: oxyCODONE 5 MG Tablet PO (21:31)
[2020-12-29] MEDS: Baclofen 10 MG Tablet PO (21:31)
[2020-12-29] MEDS: MethylPREDNISolone DosePak 4 MG BOX PO (21:32)
[2020-12-30 05:13] VITALS: BP 173/61; PULSE 83; RESP 16; TEMP 36.1; O2SAT 93
[2020-12-30 05:21] VITALS: PULSE 83
[2020-12-30] MEDS: oxyCODONE 5 MG Tablet PO ×3 (05:21→15:19)
[2020-12-30] MEDS: Metoprolol(XL)Succ 50 MG Tablet PO (05:21)
[2020-12-30] MEDS: Levothyroxine 125 MCG Tablet PO (05:21)
[2020-12-30] MEDS: Pantoprazole Sodium 40 MG Tablet PO (05:21)
[2020-12-30] MEDS: Enoxaparin 40 MG/0.4 ML Syringe SC (05:22)
[2020-12-30] MEDS: Baclofen 10 MG Tablet PO ×3 (05:24→22:19)
[2020-12-30] MEDS: Furosemide 40 MG Tablet PO (05:24)
[2020-12-30] MEDS: Fluticasone Propion/Salmeterol 250-50 Inhaler 1 PUFF INHALATION ×2 (05:25→16:53)
[2020-12-30 05:51] LABS: Absolute Lymphocyte Count 0.99 X10^3/uL (0.83-4.51); Absolute Neutrophil Count 11.4 X10^3/uL (2.0-7.7); Basophil# 0.03 X10^3/uL; Basophil% 0.2 % (0-1); Hematocrit 36.3 % (37-47); Hemoglobin 12.4 g/dL (12.0-15.0); Lymphocyte # 0.99 X10^3/ul (0.83-4.51); Lymphocyte % 7.8 % (19-41); Mean Corp Hgb Conc 34.2 g/dL (32-36); Mean Corpuscular Volume 102.5 fL (81-99); Mean Platelet Vol. 11.3 fl (6.2-12.0); Monocyte# 0.14 X10^3/uL; Monocyte% 1.1 % (0-10); NRBC Flagged by Analyzer 0 % (0-5); Neutrophil # 11.39 X10^3/uL (2.7-7.7); Neutrophil % 89.5 % (47-70); Platelet Count 285 K/mm3 (150-450); RBC Distribution Width SD 49.3 fl (35.1-43.9); Red Blood Count 3.54 M/mm3 (4.2-5.4); White Blood Count 12.7 K/mm3 (4.4-11.0)
[2020-12-30 06:06] LABS: Anion Gap 9 (5-15); BUN 16 mg/dL (7-18); BUN/Creat Ratio 17.9 RATIO (10-20); Calcium,Total 8.5 mg/dL (8.5-10.1); Chloride 95 mmol/L (98-107); Creatinine, Serum 0.89 mg/dL (0.55-1.02); EST Glomerular Filtration Rate 65 mL/min (>60); Est Glom Filt Rate - Afr Amer 79 mL/min (>60); Estimated Creatinine Clearance 45.71 ml/min; Glucose 247 mg/dL (74-106); Potassium 4.1 mmol/L (3.5-5.1); Sodium Level 131 mmol/L (136-145)
[2020-12-30 08:38] LABS: Bedside Glucose 233 mg/dL (70-110)
[2020-12-30 08:38] LABS: Bedside Glucose 241 mg/dL (70-110)
[2020-12-30] MEDS: MethylPREDNISolone DosePak 4 MG BOX PO ×4 (09:29→22:20)
[2020-12-30] MEDS: metFORMIN (XR) 500 MG Tablet PO (09:29)
[2020-12-30] MEDS: Naproxen 500 MG Tablet PO ×2 (09:30→16:54)
[2020-12-30] MEDS: Gabapentin 300 MG Capsule PO ×3 (09:30→16:54)
[2020-12-30] MEDS: diazePAM 5 MG Tablet PO (09:34)
--- NOTE | 2020-12-30 09:42 | NURSING ---
Addendum entered by Samreen Trevino 12/30/20 10:57: Faxed clinical information to [facility] ( fax # ) for pending precert. Case # [id number] Original Note: Dr. Culver ordered MRI of Lumbar Spine need a precert Samreen has started Precert.
[2020-12-30 10:50] LABS: Bedside Glucose 249 mg/dL (70-110)
[2020-12-30] MEDS: Tuberculin,Purif.prot.deriv. 50 TU/ML Vial 0.1 ML ID (12:20)
--- NOTE | 2020-12-30 12:39 | NURSING ---
pt family brought in documentation of covid vaccines x2, placed copy in chart.
[2020-12-30 13:00] VITALS: PULSE 89; RESP 18; O2SAT 96
[2020-12-30 15:32] VITALS: BP 193/64; PULSE 81; RESP 16; TEMP 36.1; O2SAT 96
--- NOTE | 2020-12-30 15:59 | NURSING ---
Pt feeling very anxious about having a MRI done new order for Valium 10mg given prior to MRI. Also updated Dr. Culver on Blood pressure 193/64. Will continue to monitor blood pressure.
[2020-12-30 16:31] LABS: Bedside Glucose 213 mg/dL (70-110)
--- NOTE | 2020-12-30 16:35 | NURSING ---
Resident and daughter notified of resident testing positive for COVID.
[2020-12-30 22:21] LABS: Bedside Glucose 246 mg/dL (70-110)
[2020-12-30 22:48] VITALS: PULSE 84; RESP 18
[2020-12-30] MEDS: Albuterol 2.5 MG/3 ML VIAL.NEB. INHALATION (22:48)
[2020-12-31] MEDS: oxyCODONE 5 MG Tablet PO ×2 (03:34→10:55)
[2020-12-31 06:28] VITALS: BP 170/92; PULSE 71; RESP 18; TEMP 35.5; O2SAT 95
[2020-12-31 06:31] LABS: Bedside Glucose 234 mg/dL (70-110)
[2020-12-31] MEDS: Acetaminophen 500 MG Tablet 1000 MG PO (06:31)
[2020-12-31 06:32] VITALS: PULSE 71
[2020-12-31] MEDS: Gabapentin 300 MG Capsule PO ×3 (06:32→17:51)
[2020-12-31] MEDS: Enoxaparin 40 MG/0.4 ML Syringe SC (06:32)
[2020-12-31] MEDS: Pantoprazole Sodium 40 MG Tablet PO (06:32)
[2020-12-31] MEDS: Levothyroxine 125 MCG Tablet PO (06:32)
[2020-12-31] MEDS: Furosemide 40 MG Tablet PO (06:32)
[2020-12-31] MEDS: Metoprolol(XL)Succ 50 MG Tablet PO (06:32)
[2020-12-31] MEDS: Baclofen 10 MG Tablet PO ×3 (06:32→20:39)
[2020-12-31] MEDS: Fluticasone Propion/Salmeterol 250-50 Inhaler 1 PUFF INHALATION (06:33)
[2020-12-31] MEDS: metFORMIN (XR) 500 MG Tablet PO (08:04)
[2020-12-31] MEDS: Naproxen 500 MG Tablet PO ×2 (08:05→17:51)
[2020-12-31] MEDS: MethylPREDNISolone DosePak 4 MG BOX PO ×4 (08:05→20:39)
[2020-12-31 10:46] LABS: Bedside Glucose 307 mg/dL (70-110)
[2020-12-31 12:19] LABS: Bacteria 0 SEEN /hpf (None Seen); Mucous, Urine 0 SEEN /hpf (<or=2+); Red Blood Cells-Urine 0 SEEN /hpf (0-5); White Blood Cells 0 SEEN /hpf (0-5)
[2020-12-31 12:20] LABS: Color, Urine Straw (Yellow); Glucose, Dipstick Normal (Normal); Ketone-Dipstick Negative (Negative); Leukocyte Esterase-Dipstick Negative /ul (Negative); Nitrite-Dipstick Negative (Negative); Occult Blood-Urine Negative /ul (Negative); Protein-Dipstick Negative (Negative); Urine Bilirubin Dipstick Negative (Negative); Urine Clarity Clear (Clear); Urine Urobilinogen Normal (Normal)
[2020-12-31 12:24] LABS: Squamous Epithelial Cells - UA 0-5 SEEN /hpf (5-10)
[2020-12-31 14:00] VITALS: PULSE 79; RESP 16; TEMP 36.1; O2SAT 97
--- NOTE | 2020-12-31 15:21 | PCM.PN.RX ---
Progress Note - Pharmacy Subjective: TCU Admission Objective: Allergies clindamycin Allergy (Mild, Verified 12/27/20 10:38) rash codeine phosphate [From Tylenol-Codeine #3] Adverse Reaction (Severe, Verified 12/27/20 10:38) Nausea Current Medications Generic Name Dose Route Start Last Admin Trade Name Freq PRN Reason Stop Dose Admin Acetaminophen 1,000 mg 12/29/20 20:00 12/31/20 06:31 Acetaminophen 500 Mg Tablet PO 1,000 mg Q6H PRN PRN Administration Pain Score 1-3 Albuterol Sulfate 2.5 mg 12/30/20 22:00 12/30/20 22:48 Albuterol 2.5 Mg/3 Ml Vial.Neb. INHALATION 2.5 mg QHS DICK Administration Baclofen 10 mg 12/29/20 22:00 12/31/20 13:46 Baclofen 10 Mg Tablet PO 10 mg TID DICK Administration Bisacodyl 10 mg 12/29/20 20:00 Bisacodyl 5 Mg Tablet PO DAILY PRN Constipation Diazepam 10 mg 12/30/20 15:55 Diazepam 5 Mg Tablet PO X1 PRN ANXIETY Enoxaparin Sodium 40 mg 12/30/20 06:00 12/31/20 06:32 Enoxaparin 40 Mg/0.4 Ml Syringe SC 40 mg DAILY DICK Administration Furosemide 40 mg 12/30/20 06:00 12/31/20 06:32 Furosemide 40 Mg Tablet PO 40 mg DAILY DICK Administration Gabapentin 300 mg 12/30/20 07:45 12/31/20 12:49 Gabapentin 300 Mg Capsule PO 300 mg TIDCM DICK Administration Levothyroxine Sodium 125 mcg 12/30/20 06:00 12/31/20 06:32 Levothyroxine 125 Mcg Tablet PO 125 mcg DAILY DICK Administration Metformin HCl 500 mg 12/30/20 08:00 12/31/20 08:04 Metformin (Xr) 500 Mg Tablet PO 500 mg BREAKFAST DICK Administration Methylprednisolone 4 mg 12/29/20 22:00 12/31/20 12:48 Methylprednisolone Dosepak 4 Mg Box PO 01/03/21 08:59 4 mg 0800,1200,1700,2200 DICK Administration Taper Metoprolol Succinate 50 mg 12/30/20 06:00 12/31/20 06:32 Metoprolol(Xl)Succ 50 Mg Tablet PO 50 mg DAILY DICK Administration Naproxen 500 mg 12/30/20 08:00 12/31/20 08:05 Naproxen 500 Mg Tablet PO 01/06/21 08:01 500 mg BIDCM DICK Administration Oxycodone HCl 5 mg 12/29/20 18:54 12/31/20 10:55 Oxycodone 5 Mg Tablet PO 5 mg Q4H PRN PRN Administration Pain Score 4-10 Pantoprazole Sodium 40 mg 12/30/20 06:00 12/31/20 06:32 Pantoprazole Sodium 40 Mg Tablet PO 40 mg DAILY DICK Administration Polyethylene Glycol 17 gm 12/30/20 06:00 12/31/20 06:29 Polyethylene Glycol 3350 17 Gm Packet PO Not Given DAILY DICK Senna/Docusate Sodium 2 tablet 12/30/20 06:00 12/31/20 06:29 Senna/Docusate Sodium 1 Tablet PO Not Given BID DICK Tuberculin PPD 0.1 ml 01/06/21 10:00 Tuberculin,Purif.Prot.Deriv. 50 Tu/Ml Vial ID 01/06/21 10:01 X1 ONE Problem List (Last Reviewed 12/29/20 @ 19:[address] Jaime Culver MD) Asthma (Acute) Hypothyroidism (Acute) Hypertension (Chronic) Diabetes mellitus (Acute) Muscle spasm (Acute) Lumbar spinal stenosis (Acute) Right lumbar radiculopathy (Acute) Debility (Acute) Vital Signs Temp Pulse Resp BP Pulse Ox 97.0 F L 79 16 170/92 H 97 12/31/20 14:00 12/31/20 14:00 12/31/20 14:00 12/31/20 06:28 12/31/20 14:00 Oxygen Delivery Method Room Air Weight: 86 kg Body Mass Index (BMI) 32.5 Sodium 131 mmol/L (136-145) L 12/30/20 05:15 Potassium 4.1 mmol/L (3.5-5.1) 12/30/20 05:15 Chloride 95 mmol/L (98-107) L 12/30/20 05:15 Carbon Dioxide 27.0 mmol/L (21.0-32.0) 12/30/20 05:15 Anion Gap 9 (5-15) 12/30/20 05:15 BUN 16 mg/dL (7-18) 12/30/20 05:15 Creatinine 0.89 mg/dL (0.55-1.02) 12/30/20 05:15 Est GFR (MDRD) Af Amer 79 mL/min (>60) 12/30/20 05:15 Est GFR (MDRD) Non-Af 65 mL/min (>60) 12/30/20 05:15 BUN/Creatinine Ratio 17.9 RATIO (10-20) 12/30/20 05:15 Glucose 247 mg/dL (74-106) H 12/30/20 05:15 Assessment/Plan: 1. Pain: acetaminophen 1000mg PO Q6H PRN pain 1-3/10 and oxycodone 5mg PO Q4H PRN pain 4-10/10. Please continue to monitor for increased pain, PRN usage, constipation, and respiratory depression. 2. Lumbar spine stenosis: Medrol dose pack thru 01/03/21 and naproxen 500mg PO BIDCM thru 01/06/21. Please continue to monitor for increased blood glucose, insomnia, weight gain and bleeding. 3. Right lumbar radiculopathy: gabapentin 300mg PO TIDCM and diazepam 10mg PO x1 PRN anxiety prior to MRI. Please continue to monitor for confusion and renal function. 4. DVT prophylaxis: enoxaparin 40mg SC daily. Please continue to monitor for S/S of bleeding, hemoglobin (last 12.4g/dL), platelets (last 285,000) and renal function. 5. Muscle spasm: baclofen 10mg PO TID. Please continue to monitor for muscle spasms and drowsiness. 6. Asthma: Wixela 250/50mg 1 inhalation Q12H and albuterol nebulized solution 2.5mg inhalation QHS. Please continue to monitor HR as patient is on both long acting and short acting beta agonist. Thanks. 7. Edema: furosemide 40mg PO daily. Please continue to monitor potassium (last 4.1mmol/L) and renal function. 8. Hypothyroidism: levothyroxine 125mcg PO daily. Please continue to monitor TSH (last 12/17/20) and for S/S of hypo/hyperthyroidism. 9. Diabetes Mellitus: metformin XR 500mg PO breakfast. Please continue to monitor hemoglobin A1c (last 6.7%), renal function, and blood glucose (last 307mg/dL). 10. Hypertension: metoprolol succinate 50mg PO daily. Please continue to monitor HR (last 79) and BP (last 170/92). 11. GERD: pantoprazole 40mg PO daily. Please continue to monitor for S/S of GERD and diarrhea. Psychotropic Medications: None Unnecessary Medications: None *Bowel Regimen: Miralax 17gm PO daily, senna/docusate 2T PO BID and bisacodyl 10mg PO daily PRN constipation. Please consider changing Miralax and senna/docusate to PRN constipation. Patient has refused 2/2 doses of Miralax and 3/3 doses of senna/docusate. Thanks. Date of Note:: 12/31/20
[2020-12-31 16:36] LABS: Bedside Glucose 256 mg/dL (70-110)
[2020-12-31 17:08] VITALS: BP 185/53
[2020-12-31] MEDS: diazePAM 5 MG Tablet 10 MG PO (17:50)
[2020-12-31] MEDS: Losartan Potassium 100 MG Tablet PO (20:38)
[2020-12-31 21:51] LABS: Bedside Glucose 163 mg/dL (70-110)
[2020-12-31 21:59] VITALS: PULSE 80; RESP 16; O2SAT 97
[2020-12-31] MEDS: Albuterol 2.5 MG/3 ML VIAL.NEB. INHALATION (22:01)
[2021-01-01] MEDS: oxyCODONE 5 MG Tablet PO ×4 (02:34→18:58)
[2021-01-01] MEDS: Acetaminophen 500 MG Tablet 1000 MG PO ×2 (04:58→21:19)
[2021-01-01 05:00] VITALS: BP 176/68; PULSE 68
[2021-01-01] MEDS: Metoprolol(XL)Succ 50 MG Tablet PO (05:00)
[2021-01-01] MEDS: Losartan Potassium 100 MG Tablet PO (05:00)
[2021-01-01] MEDS: Furosemide 40 MG Tablet PO (05:00)
[2021-01-01] MEDS: Pantoprazole Sodium 40 MG Tablet PO (05:01)
[2021-01-01] MEDS: Levothyroxine 125 MCG Tablet PO (05:01)
[2021-01-01] MEDS: Enoxaparin 40 MG/0.4 ML Syringe SC (05:01)
[2021-01-01] MEDS: Baclofen 10 MG Tablet PO ×3 (05:01→21:23)
[2021-01-01] MEDS: FLUTICASONE/VILANTEROL 1 EACH BLST.W.DEV INHALATION (05:06)
[2021-01-01 05:08] VITALS: BP 176/68; PULSE 68; RESP 18; TEMP 36.6; O2SAT 94
[2021-01-01 06:25] LABS: Bedside Glucose 233 mg/dL (70-110)
[2021-01-01] MEDS: Gabapentin 300 MG Capsule PO ×3 (06:35→17:14)
[2021-01-01] MEDS: MethylPREDNISolone DosePak 4 MG BOX PO ×3 (08:43→21:23)
[2021-01-01] MEDS: Naproxen 500 MG Tablet PO ×2 (08:43→17:14)
[2021-01-01] MEDS: metFORMIN (XR) 500 MG Tablet PO (08:44)
[2021-01-01 10:00] VITALS: PULSE 69; RESP 18; O2SAT 97
[2021-01-01 11:15] LABS: Bedside Glucose 207 mg/dL (70-110)
[2021-01-01 13:58] VITALS: BP 149/56; PULSE 63; RESP 16; TEMP 36.1; O2SAT 94
--- NOTE | 2021-01-01 14:11 | NURSING ---
Dr. Camacho's Office was called and this nurse spoke with Brittni to update on need for pain management consult, Brittni stated Dr. Camacho would be in later this evening to see pt.
[2021-01-01 16:56] LABS: Bedside Glucose 173 mg/dL (70-110)
[2021-01-01] MEDS: Senna/Docusate Sodium 1 Tablet 2 TABLET PO (17:14)
--- NOTE | 2021-01-01 17:58 | NURSING ---
Pt states that Dr. Culver prescribed her an ATB for bronchitis before admission but was unable to take the ATB because she was then admitted to the hospital, pt has moist/rattling cough, N.O. Doxycycline.
[2021-01-01] MEDS: Doxycycline 100 MG CAPSULE PO (18:48)
--- NOTE | 2021-01-01 18:54 | NURSING ---
Dr. Camacho to unit and placed orders for medication to be administered for procedure tomorrow.
--- NOTE | 2021-01-01 19:06 | NURSING ---
Dr. Camacho in today to access pt, Dr. Malagon is to come in tomorrow to perform trigger point injection to right hip, N.O. hold lovenox until after procedure, 0.25% marcaine, 40mg Kenalog at beside for Dr. Malagon.
[2021-01-01 21:21] LABS: Bedside Glucose 279 mg/dL (70-110)
[2021-01-01] MEDS: Albuterol 2.5 MG/3 ML VIAL.NEB. INHALATION ×2 (21:25→22:17)
[2021-01-01 22:17] VITALS: PULSE 78; RESP 20
[2021-01-02 05:00] VITALS: BP 159/69; PULSE 67; RESP 18; O2SAT 95
[2021-01-02 06:21] LABS: Bedside Glucose 193 mg/dL (70-110)
[2021-01-02 06:34] VITALS: BP 159/69; PULSE 67
[2021-01-02] MEDS: Pantoprazole Sodium 40 MG Tablet PO (06:34)
[2021-01-02] MEDS: FLUTICASONE/VILANTEROL 1 EACH BLST.W.DEV INHALATION (06:34)
[2021-01-02] MEDS: Losartan Potassium 100 MG Tablet PO (06:34)
[2021-01-02] MEDS: Metoprolol(XL)Succ 50 MG Tablet PO (06:34)
[2021-01-02] MEDS: Furosemide 40 MG Tablet PO (06:34)
[2021-01-02] MEDS: Baclofen 10 MG Tablet PO ×3 (06:34→20:05)
[2021-01-02] MEDS: Doxycycline 100 MG CAPSULE PO ×2 (06:35→16:48)
[2021-01-02] MEDS: Gabapentin 300 MG Capsule PO ×3 (06:35→16:49)
[2021-01-02] MEDS: Senna/Docusate Sodium 1 Tablet 2 TABLET PO (06:35)
[2021-01-02] MEDS: Levothyroxine 125 MCG Tablet PO (06:35)
[2021-01-02] MEDS: metFORMIN (XR) 500 MG Tablet PO (08:17)
[2021-01-02] MEDS: MethylPREDNISolone DosePak 4 MG BOX PO ×2 (08:17→20:05)
[2021-01-02] MEDS: Naproxen 500 MG Tablet PO ×2 (08:17→16:48)
--- NOTE | 2021-01-02 08:57 | CASEMGMT ---
BIMS and PHQ9 Interviews completed on this date for MDS assessment. LA Henriquez
[2021-01-02 10:41] LABS: Bedside Glucose 389 mg/dL (70-110)
[2021-01-02] MEDS: oxyCODONE 5 MG Tablet PO ×2 (11:59→20:07)
[2021-01-02 12:10] LABS: Bedside Glucose 293 mg/dL (70-110)
--- NOTE | 2021-01-02 13:02 | CASEMGMT ---
Social Work Pt continued stay approved by insurance with NRD 01/05 and expected LCD given at that time. Pt updated and is understanding. Pt states she feels she will be able to return home when LCD is issued. LA Henriquez
[2021-01-02] MEDS: Insulin Lispro 100 UNIT/ML INSULN.PEN SC (13:45)
[2021-01-02 13:48] VITALS: BP 149/69; PULSE 84; RESP 16; TEMP 36.5; O2SAT 95
--- NOTE | 2021-01-02 15:30 | OP.PCM_ITS ---
Problems Associated Problem List Diagnoses (1) Muscle tenderness: (2) Lumbar spinal stenosis: (3) Right lumbar radiculopathy: (4) Intractable low back pain: (5) Lumbar spinal stenosis: (6) Strain of muscle of right hip: (7) Muscle tension pain: Report of Operation Date of Procedure: 01/02/21 Pre-Operative Diagnosis: m79.10 m25.551 Trigger point injection in the paraspinal muscular area in the right gluteal muscle, right pyriformis and right posterior hip region. Post-Operative Diagnosis: Same Surgery/Procedure Performed:: Trigger point injection to the right paraspinal/lumbosacral region, right gluteal muscle, right pyriformis muscle and right posterior hip region. Description of Surgical Findings:: Under sterile condition, patient is in the left lateral decubitus, used Betadine for sterilization, I have identified the area of 4 trigger points in the right lateral hip, right posterior hip region and right paraspinal lumbosacral region, identified most painful trigger point, injected 4 points with solution of Marcaine 0.5 concentration and preservative- free dexamethasone, injected 2.0 mL at each trigger points, total points injected is 4., Patient rated the procedure well, reported 50% reduction of the pain postprocedure. Also provided orders for Toradol 30 mg intramuscular injection and Norflex 60 mg intramuscular injection. Surgeon: Alberto Malagon Type of Anesthesia: None Description of Procedure: As above
[2021-01-02] MEDS: Triamcinolone Acetonide 40 MG/ML Vial INTRAARTIC (15:54)
[2021-01-02] MEDS: Bupivacaine 0.25% 30 ML Vial INFILT (15:54)
[2021-01-02 15:56] LABS: Bedside Glucose 263 mg/dL (70-110)
--- NOTE | 2021-01-02 15:56 | NURSING ---
Dr Malagon here and administered steroid injections via Rt hip.
[2021-01-02] MEDS: Orphenadrine 60 MG/2 ML Ampul IM (16:48)
[2021-01-02] MEDS: Ketorolac 30 MG/ML Syringe IM (17:27)
[2021-01-02 21:26] LABS: Bedside Glucose 422 mg/dL (70-110)
[2021-01-02 21:46] VITALS: PULSE 68; RESP 16; O2SAT 97
[2021-01-02 22:16] VITALS: PULSE 76; RESP 12
--- NOTE | 2021-01-02 22:21 | NURSING ---
Paged Dr. Culver w/ immediate return phone call. Updated blood sugar 422. Telephone order read back for Humalog 10 units x1 dose.
[2021-01-02] MEDS: Insulin Lispro 100 UNIT/ML INSULN.PEN 10 UNIT SC (22:55)
[2021-01-03 00:21] LABS: Bedside Glucose 333 mg/dL (70-110)
[2021-01-03 05:00] VITALS: BP 199/78; PULSE 96; RESP 18; TEMP 36.6; O2SAT 97
[2021-01-03 05:13] VITALS: BP 199/78; PULSE 96
[2021-01-03] MEDS: Baclofen 10 MG Tablet PO ×3 (05:13→20:27)
[2021-01-03] MEDS: FLUTICASONE/VILANTEROL 1 EACH BLST.W.DEV INHALATION (05:13)
[2021-01-03] MEDS: Metoprolol(XL)Succ 50 MG Tablet PO (05:13)
[2021-01-03] MEDS: Enoxaparin 40 MG/0.4 ML Syringe SC (05:13)
[2021-01-03] MEDS: Levothyroxine 125 MCG Tablet PO (05:14)
[2021-01-03] MEDS: Pantoprazole Sodium 40 MG Tablet PO (05:14)
[2021-01-03] MEDS: Doxycycline 100 MG CAPSULE PO ×2 (05:14→17:08)
[2021-01-03] MEDS: Furosemide 40 MG Tablet PO (05:14)
[2021-01-03] MEDS: Gabapentin 300 MG Capsule PO ×3 (05:14→17:08)
[2021-01-03] MEDS: Losartan Potassium 100 MG Tablet PO (05:14)
[2021-01-03] MEDS: oxyCODONE 5 MG Tablet PO (05:15)
[2021-01-03 06:26] LABS: Bedside Glucose 224 mg/dL (70-110)
--- NOTE | 2021-01-03 07:41 | NURSING ---
HS SUGAR CHECK 01/02 422, RN AWARE, DR ROBERTS ORDERED 1X DOSE HUMALOG 10U, GIVEN, RECHECKED AT 333.
[2021-01-03] MEDS: Naproxen 500 MG Tablet PO ×2 (08:42→17:08)
[2021-01-03] MEDS: metFORMIN (XR) 500 MG Tablet PO (08:42)
[2021-01-03] MEDS: MethylPREDNISolone DosePak 4 MG BOX PO (08:42)
[2021-01-03] MEDS: cloNIDine HCl 0.1 MG Tablet PO (10:55)
[2021-01-03 10:56] LABS: Bedside Glucose 217 mg/dL (70-110)
[2021-01-03 10:57] VITALS: BP 137/53; PULSE 66
[2021-01-03] MEDS: Insulin Lispro 100 UNIT/ML INSULN.PEN SC ×2 (11:04→17:08)
[2021-01-03 14:33] VITALS: BP 161/82; PULSE 73; RESP 18; TEMP 36.2; O2SAT 97
[2021-01-03 16:06] LABS: Bedside Glucose 251 mg/dL (70-110)
[2021-01-03 17:17] VITALS: BP 152/65; PULSE 62
[2021-01-03 17:36] VITALS: PULSE 68; RESP 18; O2SAT 98
[2021-01-03] MEDS: Albuterol 2.5 MG/3 ML VIAL.NEB. INHALATION (17:37)
[2021-01-03 21:20] LABS: Bedside Glucose 284 mg/dL (70-110)
[2021-01-04 05:00] VITALS: BP 135/62; PULSE 63; RESP 16; TEMP 36.1; O2SAT 97
[2021-01-04 05:40] VITALS: BP 135/62; PULSE 63
[2021-01-04] MEDS: Baclofen 10 MG Tablet PO ×2 (05:40→13:01)
[2021-01-04] MEDS: Doxycycline 100 MG CAPSULE PO ×2 (05:40→17:07)
[2021-01-04] MEDS: Pantoprazole Sodium 40 MG Tablet PO (05:40)
[2021-01-04] MEDS: Furosemide 40 MG Tablet PO (05:40)
[2021-01-04] MEDS: Metoprolol(XL)Succ 50 MG Tablet PO (05:40)
[2021-01-04] MEDS: Losartan Potassium 100 MG Tablet PO (05:40)
[2021-01-04] MEDS: Levothyroxine 125 MCG Tablet PO (05:40)
[2021-01-04] MEDS: FLUTICASONE/VILANTEROL 1 EACH BLST.W.DEV INHALATION (05:41)
[2021-01-04] MEDS: Enoxaparin 40 MG/0.4 ML Syringe SC (05:41)
[2021-01-04 06:31] LABS: Bedside Glucose 148 mg/dL (70-110)
[2021-01-04] MEDS: Insulin Lispro 100 UNIT/ML INSULN.PEN SC ×3 (07:55→17:06)
[2021-01-04] MEDS: metFORMIN (XR) 500 MG Tablet PO (07:56)
[2021-01-04] MEDS: Gabapentin 300 MG Capsule PO ×3 (07:56→17:07)
[2021-01-04] MEDS: Naproxen 500 MG Tablet PO ×2 (07:56→17:07)
[2021-01-04] MEDS: Menthol/Lanolin/Calamine/Znox 113 GM Tube 1 APPLIC TOPICAL ×2 (07:56→17:09)
[2021-01-04 11:10] LABS: Bedside Glucose 153 mg/dL (70-110)
[2021-01-04 13:46] VITALS: PULSE 68; RESP 16
[2021-01-04] MEDS: Albuterol 2.5 MG/3 ML VIAL.NEB. INHALATION (13:46)
[2021-01-04 13:52] VITALS: BP 117/63; PULSE 65; RESP 20; TEMP 36.2; O2SAT 96
--- NOTE | 2021-01-04 15:03 | RAD_ITS ---
STUDY: X-RAY - ABDOMEN/PELVIS REASON FOR EXAM: Female, 75 years old. Nausea TECHNIQUE: Two AP supine views of the abdomen and pelvis. COMPARISON: None. FINDINGS: Normal visualized lung bases. There is an unremarkable bowel gas pattern. There is no demonstrated free abdominal air. Right gluteal electronic device posterior epidural lead terminating in the thoracic spine noted. Normal soft tissue structures. There are diffuse degenerative changes of the visualized lumbar spine. RAD/Abdomen Single View IMPRESSION: No visualized acute process Electronically Signed: Juanpablo Sidhu MD at 16:19 EDT , Service support ,
--- NOTE | 2021-01-04 15:08 | NURSING ---
Addendum entered by Lindsey Barber 01/04/21 18:03: Pt still c/o nausea, Dr. Culver updated on continued symptoms, KUB and U/A results, N.O. zofran 4mg PRN Q6H Original Note: Pt c/o nausea and upset stomach that seems to be in middle of abdomen around umbilicus, gingerale and crackers given but were ineffective, VS WNL. Pt began vomiting and reports multiple bowel movements today that are formed and not loose, pt wipes and flushes toilet before staff enters room so staff cannot confirm. Bowel sounds hyperactive, denies pain to palpation, Dr. Culver updated and N.O. KUB and U/A C&S
[2021-01-04 15:40] LABS: Bacteria 0 SEEN /hpf (None Seen); Mucous, Urine 0 SEEN /hpf (<or=2+); Red Blood Cells-Urine 0 SEEN /hpf (0-5); White Blood Cells 0 SEEN /hpf (0-5)
[2021-01-04 15:45] LABS: Color, Urine Yellow (Yellow); Glucose, Dipstick Normal (Normal); Ketone-Dipstick Negative (Negative); Leukocyte Esterase-Dipstick Negative /ul (Negative); Nitrite-Dipstick Negative (Negative); Occult Blood-Urine Negative /ul (Negative); Protein-Dipstick Negative (Negative); Urine Bilirubin Dipstick Negative (Negative); Urine Clarity Sl. Cloudy (Clear); Urine Urobilinogen Normal (Normal)
[2021-01-04 16:00] LABS: Squamous Epithelial Cells - UA 0-5 SEEN /hpf (5-10)
[2021-01-04 16:40] LABS: Bedside Glucose 145 mg/dL (70-110)
[2021-01-04] MEDS: Ondansetron ODT 4 MG Tablet PO (19:04)
[2021-01-04 21:16] LABS: Bedside Glucose 152 mg/dL (70-110)
--- NOTE | 2021-01-04 21:30 | NURSING ---
Patient continues to feel nauseous. Patient refused HS baclofen.
--- NOTE | 2021-01-05 01:04 | NURSING ---
Taken to the bathroom x1 assist using wheeled walker. Upon arrival back to bathroom, pt completed an unassisted transfer. Reports voiding, no bm, but is passing gas. Denies any nausea at this time, only hip pain. Assisted positioning LEs into bed. Call light w/ in reach.
[2021-01-05 05:00] VITALS: BP 133/52; PULSE 68; RESP 16; TEMP 36.2; O2SAT 96
[2021-01-05 05:55] VITALS: PULSE 68
[2021-01-05] MEDS: Metoprolol(XL)Succ 50 MG Tablet PO (05:55)
[2021-01-05] MEDS: Levothyroxine 125 MCG Tablet PO (05:55)
[2021-01-05] MEDS: FLUTICASONE/VILANTEROL 1 EACH BLST.W.DEV INHALATION (05:55)
[2021-01-05] MEDS: Pantoprazole Sodium 40 MG Tablet PO (05:55)
[2021-01-05] MEDS: Doxycycline 100 MG CAPSULE PO ×2 (05:56→17:42)
[2021-01-05] MEDS: oxyCODONE 5 MG Tablet PO ×2 (05:56→14:52)
[2021-01-05] MEDS: Losartan Potassium 100 MG Tablet PO (05:56)
[2021-01-05] MEDS: Furosemide 40 MG Tablet PO (05:56)
[2021-01-05] MEDS: Baclofen 10 MG Tablet PO ×3 (05:56→22:17)
[2021-01-05] MEDS: Enoxaparin 40 MG/0.4 ML Syringe SC (05:57)
[2021-01-05] MEDS: Menthol/Lanolin/Calamine/Znox 113 GM Tube 1 APPLIC TOPICAL ×2 (05:58→17:44)
[2021-01-05 06:15] LABS: Bedside Glucose 118 mg/dL (70-110)
[2021-01-05] MEDS: Naproxen 500 MG Tablet PO ×2 (07:54→17:42)
[2021-01-05] MEDS: Gabapentin 300 MG Capsule PO ×3 (07:54→17:42)
[2021-01-05] MEDS: Insulin Lispro 100 UNIT/ML INSULN.PEN SC ×2 (07:54→12:13)
[2021-01-05] MEDS: metFORMIN (XR) 500 MG Tablet PO (07:54)
[2021-01-05 12:06] LABS: Bedside Glucose 132 mg/dL (70-110)
[2021-01-05] MEDS: Ondansetron ODT 4 MG Tablet PO (12:16)
--- NOTE | 2021-01-05 14:25 | CASEMGMT ---
Social Work Met with patient in room. This pediatric social worker communicated to patient that continued stay has been declined by insurance with last cover day being 12/28/20 and patient to discharge or financial responsibility to begin on 01/08/2021. Patient plans to discharge to home alone on 01/08/2021. Patient reports to be able to notify family and declines this pediatric social worker contacting family. This pediatric social worker communicated that physical and occupational therapy are recommending for patient to have continued services through home health. Patient is agreeable to recommendation and request for home health services to be set up through [facility] ([facility] Patient reports that patient daughter will provide transportation to home. Patient denies any durable medical equipment needs. Patient with no further questions. [facility] Voicemail left inquiring about referral for PT/OT. Order entered. Proposed discharge date: 01/08/2021 Disposition: Home alone with daughter to check in on and home health services. Verenice BRANTLEY, ZULLY
[2021-01-05 14:50] VITALS: BP 115/49; PULSE 63; RESP 16; TEMP 36.1; O2SAT 96
[2021-01-05] MEDS: Acetaminophen 500 MG Tablet 1000 MG PO (14:53)
[2021-01-05 16:11] LABS: Bedside Glucose 159 mg/dL (70-110)
--- NOTE | 2021-01-05 18:45 | PCM.DC.SUM ---
Providers Date of Admission: 12/29/20 Primary Care Physician: Dr. Jaime Culver MD Consultations 01/01/21 08:19 Consult: Pain Management Routine Consulting Provider: Harshad Camacho Reason for Consult: Lumbar spinal stenosis, right lumbar radiculopathy, MRI done. EMERGENT Consult: No MD Notified: Yes Date Notified: 01/01/21 Time Notified: 08:20 Method of Notification: phone call Reason For Visit: DEBILITY & BACK PAIN Diagnosis Discharge Diagnosis (1) Muscle tenderness: Status: Acute Code(s): M79.10 - Myalgia, unspecified site (2) Lumbar spinal stenosis: Status: Acute Code(s): M48.061 - Spinal stenosis, lumbar region without neurogenic claudication (3) Right lumbar radiculopathy: Status: Acute Code(s): M54.16 - Radiculopathy, lumbar region (4) Intractable low back pain: Status: Acute Code(s): M54.5 - Low back pain (5) Lumbar spinal stenosis: Status: Chronic Code(s): M48.061 - Spinal stenosis, lumbar region without neurogenic claudication (6) Strain of muscle of right hip: Status: Acute Code(s): S76.011A - Strain of muscle, fascia and tendon of right hip, initial encounter (7) Muscle tension pain: Status: Acute Code(s): M79.10 - Myalgia, unspecified site Medications at Discharge Home Medications metoprolol succinate 50 mg PO DAILY 05/19/20 albuterol sulfate 1 - 2 puff INHALATION Q6H PRN PRN 06/02/20 levothyroxine 125 mcg tablet 125 mcg PO DAILY tab 06/09/20 fluticasone furoate-vilanterol 1 ea IH DAILY 06/17/20 Alive Women's 50 Plus 1 tab PO DAILY 12/27/20 ascorbic acid (vitamin C) 1 g PO DAILY 12/27/20 metformin 500 mg PO DAILY 12/27/20 furosemide [Lasix] 40 mg PO DAILY 12/28/20 dexamethasone 4 mg PO BREAKFAST 12/29/20 enoxaparin 40 mg SUBCUT DAILY 12/29/20 insulin lispro [Humalog KwikPen Insulin] See Protocol SUBCUT ACHS 12/29/20 tizanidine 4 mg PO Q8H PRN PRN #0 tab 12/29/20 acetaminophen 1,000 mg PO Q6H PRN PRN #0 tab 01/05/21 baclofen 10 mg PO TID 30 Days #90 tab 01/05/21 gabapentin 300 mg PO TIDCM 30 Days #90 cap 01/05/21 Hospital Course Operations None Procedures - (Trigger point injections.) Summary of Care Provided Minutes Spent on Discharge: 35 Hospital Course: 75 year old female with below past medical history hospitalized for right sciatic pain secondary to lumbar spinal stenosis, admitted to TCU with debility, here for rehabilitation, strengthening, prior to discharge home alone. Discharge home alone with daughter support 01/08/2021, [facility] PT/OT. Physical Exam Const alert and oriented x3 General Appearance: cooperative HEENT normocephalic Eyes PERRL and EOMs intact bilaterally Neck supple, no JVD and no carotid bruits Resp normal respiratory effort, normal air movement and clear to auscultation bilaterally Cardio regular rate and regular rhythm GI normal to inspection, nondistended, normoactive bowel sounds, non-tender and non-distended Extremity normal capillary refill General Extremity: Negative for edema Skin no rashes or lesions noted General Skin Exam: no breakdown Psych affect normal Appearance: appropriate Weight / BMI Weight Weight: 86 kg Body Mass Index (BMI) 32.5 ABG / Lab / Microbiology Data Result Diagrams: 12/30/20 05:15 12/30/20 05:15 Laboratory: Laboratory Results - last 24 hr 01/04/21 01/05/21 01/05/21 21:01 06:07 12:01 POC Glucose 152 H 118 H 132 H 01/05/21 15:57 POC Glucose 159 H Microbiology: Microbiology 01/04/21 15:28 Urine Culture - Preliminary Urine Catheter - Catheter Culture exhibits no growth. Microbiology 01/04/21 15:28 Urine Catheter - Catheter Urine Culture - Preliminary Culture exhibits no growth. 12/31/20 12:10 Urine, Catheterized Urine Culture - Final Culture exhibits no growth. 12/31/20 11:20 Interface Orders SARS-CoV-2 Antigen (Rapid) - Final D/C Instructions Discharge Diet: No restrictions Discharge Activity: Return to Normal Activity, May Shower and Use Walker Weight Bearing Status: Weight bearing as tolerated Call your doctor if you observe: Fever of 101 or Higher, Inability to urinate, Inability to have a bowel movement, Shortness of breath, Dizziness, Fainting spells, Swelling in the ankles, Chest pain and Uncontrolled pain Additional Instructions: Discharge home alone with daughter support 01/08/2021, [facility] PT/OT. Please Follow Up With: Jaime Culver Chi, MD (PCP) When: 1 week. Meaningful Use Info Meaningful Use Diagnoses (Choose all that apply): None applicable Discharge Plan Admission Admit Date/Time: 12/29/20 18:41 Primary Reason for Your Visit: Debility Attending Provider: Jaime Culver Chi Primary Care Provider: Jaime Culver Chi Consulting Providers: Harshad Camacho Instructions Additional Instructions / Restrictions: Discharge home alone with daughter support 01/08/2021, [facility] PT/OT. Discharge Orders/Prescriptions Prescriptions: New acetaminophen 500 mg Tablet 1,000 mg PO Q6H PRN PRN (Reason: Pain Score 1-3) Qty: 0 RF: 0 baclofen 10 mg Tablet 10 mg PO TID 30 Days Qty: 90 RF: 0 Continued levothyroxine 125 mcg tablet 125 mcg PO DAILY RF: 0 metoprolol succinate 50 MG tablet extended release 24 hr 50 mg PO DAILY RF: 0 fluticasone furoate-vilanterol 1 EACH blister with device 1 ea IH DAILY RF: 0 metformin 500 mg Tablet Extended Release 24 Hr 500 mg PO DAILY RF: 0 furosemide [Lasix] 40 mg Tablet 40 mg PO DAILY RF: 0 gabapentin 300 mg capsule 300 mg PO TIDCM 30 Days Qty: 90 RF: 0 Discontinued oxycodone 5 mg Tablet 5 mg PO Q4H PRN PRN (Reason: Pain Score 4-5) Qty: 0 RF: 0 sennosides-docusate sodium 1 TABLET tablet 1 tablet PO BID RF: 0 No Action albuterol sulfate 1 PUFF inhaler 1 - 2 puff INHALATION Q6H PRN PRN (Reason: Sob &/Or Wheezing) RF: 0 ascorbic acid (vitamin C) 1,000 mg Tablet,Chewable 1 g PO DAILY RF: 0 Alive Women's 50 Plus 120 mcg-150 mcg -37.5 mg Tablet,Chewable 1 tab PO DAILY RF: 0 tizanidine 2 mg Tablet 4 mg PO Q8H PRN PRN (Reason: Muscle Spasm) Qty: 0 RF: 0 dexamethasone 4 mg tablet 4 mg PO BREAKFAST RF: 0 enoxaparin 40 mg/0.4 mL syringe 40 mg subcut DAILY RF: 0 insulin lispro [Humalog KwikPen Insulin] 100 unit/mL insulin pen See Protocol unit subcut ACHS RF: 0 Referrals / Follow Up: Jaime Culver Chi, MD [Primary Care Provider] - Disposition Disposition (needs filled in before D/C Order can be placed): Home, Self Care
[2021-01-05] MEDS: Albuterol 2.5 MG/3 ML VIAL.NEB. INHALATION (19:49)
[2021-01-05 19:50] VITALS: PULSE 70; RESP 16
[2021-01-05 21:20] LABS: Bedside Glucose 189 mg/dL (70-110)
[2021-01-06 05:00] VITALS: BP 146/50; PULSE 71; RESP 18; TEMP 36.5; O2SAT 99
[2021-01-06 05:54] LABS: Absolute Lymphocyte Count 1.72 X10^3/uL (0.83-4.51); Absolute Neutrophil Count 14.6 X10^3/uL (2.0-7.7); Basophil# 0.06 X10^3/uL; Basophil% 0.3 % (0-1); Eosinophil# 0.41 X10^3/uL; Eosinophils% 2.2 % (0-5); Hematocrit 34.7 % (37-47); Hemoglobin 11.7 g/dL (12.0-15.0); Lymphocyte # 1.72 X10^3/ul (0.83-4.51); Lymphocyte % 9.2 % (19-41); Mean Corp Hgb Conc 33.7 g/dL (32-36); Mean Corpuscular Hgb 35.1 pg (27.0-32.0); Mean Corpuscular Volume 104.2 fL (81-99); Mean Platelet Vol. 11.9 fl (6.2-12.0); Monocyte# 1.32 X10^3/uL; NRBC Flagged by Analyzer 0 % (0-5); Neutrophil # 14.57 X10^3/uL (2.7-7.7); Neutrophil % 77.8 % (47-70); Platelet Count 229 K/mm3 (150-450); RBC Distribution Width CV 13.2 % (11.6-14.6); RBC Distribution Width SD 50.3 fl (35.1-43.9); Red Blood Count 3.33 M/mm3 (4.2-5.4); White Blood Count 18.7 K/mm3 (4.4-11.0)
[2021-01-06 06:26] LABS: Anion Gap 8 (5-15); BUN 38 mg/dL (7-18); BUN/Creat Ratio 40.3 RATIO (10-20); Calcium,Total 8.2 mg/dL (8.5-10.1); Chloride 95 mmol/L (98-107); Creatinine, Serum 0.94 mg/dL (0.55-1.02); EST Glomerular Filtration Rate 61 mL/min (>60); Est Glom Filt Rate - Afr Amer 74 mL/min (>60); Estimated Creatinine Clearance 43.28 ml/min; Glucose 143 mg/dL (74-106); Potassium 4.4 mmol/L (3.5-5.1); Sodium Level 131 mmol/L (136-145)
[2021-01-06 06:31] LABS: Bedside Glucose 140 mg/dL (70-110)
[2021-01-06] MEDS: Pantoprazole Sodium 40 MG Tablet PO (06:38)
[2021-01-06 06:39] VITALS: PULSE 71
[2021-01-06] MEDS: Furosemide 40 MG Tablet PO (06:39)
[2021-01-06] MEDS: Levothyroxine 125 MCG Tablet PO (06:39)
[2021-01-06] MEDS: Baclofen 10 MG Tablet PO ×3 (06:39→21:01)
[2021-01-06] MEDS: FLUTICASONE/VILANTEROL 1 EACH BLST.W.DEV INHALATION (06:39)
[2021-01-06] MEDS: Doxycycline 100 MG CAPSULE PO ×2 (06:39→17:24)
[2021-01-06] MEDS: Losartan Potassium 100 MG Tablet PO (06:39)
[2021-01-06] MEDS: Metoprolol(XL)Succ 50 MG Tablet PO (06:39)
[2021-01-06] MEDS: Enoxaparin 40 MG/0.4 ML Syringe SC (06:40)
[2021-01-06] MEDS: Menthol/Lanolin/Calamine/Znox 113 GM Tube 1 APPLIC TOPICAL ×2 (06:42→17:24)
[2021-01-06] MEDS: Gabapentin 300 MG Capsule PO ×3 (07:50→17:24)
[2021-01-06] MEDS: Naproxen 500 MG Tablet PO (07:50)
[2021-01-06] MEDS: metFORMIN (XR) 500 MG Tablet PO (07:51)
[2021-01-06] MEDS: Ondansetron ODT 4 MG Tablet PO (09:13)
[2021-01-06] MEDS: Tuberculin,Purif.prot.deriv. 50 TU/ML Vial 0.1 ML ID (09:21)
[2021-01-06 11:06] LABS: Bedside Glucose 142 mg/dL (70-110)
--- NOTE | 2021-01-06 13:02 | CASEMGMT ---
Social Work Met with patient in room per patient request. Patient request list of private duty aides and inquired about possible option for patient to have a home health aide to assist with showers. This social work assistant educated patient that a home health aide could be set up to assist with showers through insurance and will update order for a home health aide. Patient thanked this social work assistant and has no further questions. Patient provided with private duty home health aide list. Telephone call to [facility] Brenna ARNETT. Home Health aide added to order. Proposed discharge date: 01/08/2021. Verenice BRANTLEY, ZULLY
[2021-01-06] MEDS: oxyCODONE 5 MG Tablet PO ×2 (13:11→20:03)
--- NOTE | 2021-01-06 13:41 | NURSING ---
Up to bathroom 3-4 times today with diarrhea per resident. Therapy reports large loose stool for them while working in therapy. Resident reports abdominal tenderness and is requesting something for loose stool. ANITA Stinson updated and will notify Dr Culver.
[2021-01-06 15:05] VITALS: BP 122/53; PULSE 74; RESP 18; TEMP 36.7; O2SAT 96
[2021-01-06 18:36] LABS: Bedside Glucose 167 mg/dL (70-110)
[2021-01-06 19:33] VITALS: PULSE 73; RESP 16; O2SAT 96
[2021-01-06] MEDS: Albuterol 2.5 MG/3 ML VIAL.NEB. INHALATION (19:33)
[2021-01-06 21:25] LABS: Bedside Glucose 194 mg/dL (70-110)
[2021-01-07] MEDS: Enoxaparin 40 MG/0.4 ML Syringe SC (06:15)
[2021-01-07] MEDS: Pantoprazole Sodium 40 MG Tablet PO (06:15)
[2021-01-07] MEDS: Furosemide 40 MG Tablet PO ×2 (06:15→08:19)
[2021-01-07] MEDS: Baclofen 10 MG Tablet PO ×3 (06:16→20:25)
[2021-01-07] MEDS: Losartan Potassium 100 MG Tablet PO (06:16)
[2021-01-07] MEDS: Levothyroxine 125 MCG Tablet PO (06:16)
[2021-01-07 06:19] VITALS: BP 149/52; PULSE 76
[2021-01-07] MEDS: FLUTICASONE/VILANTEROL 1 EACH BLST.W.DEV INHALATION (06:19)
[2021-01-07] MEDS: Metoprolol(XL)Succ 50 MG Tablet PO (06:19)
[2021-01-07 06:20] VITALS: BP 149/52; PULSE 79; RESP 20; TEMP 36.1; O2SAT 95
[2021-01-07] MEDS: Menthol/Lanolin/Calamine/Znox 113 GM Tube 1 APPLIC TOPICAL ×2 (06:21→18:03)
[2021-01-07 06:36] LABS: Bedside Glucose 175 mg/dL (70-110)
[2021-01-07] MEDS: Gabapentin 300 MG Capsule PO ×3 (08:16→18:03)
[2021-01-07] MEDS: metFORMIN (XR) 500 MG Tablet PO (08:16)
[2021-01-07] MEDS: oxyCODONE 5 MG Tablet PO ×3 (08:19→20:25)
[2021-01-07 10:50] LABS: Bedside Glucose 288 mg/dL (70-110)
[2021-01-07 10:55] LABS: Bedside Glucose 256 mg/dL (70-110)
--- NOTE | 2021-01-07 11:00 | CASEMGMT ---
Social Work Plan of care meeting held. Patient present. Patient daughter, October present via conference call. Patient was to discharge to home tomorrow with home health services. Patient now with change in medical status and concerned about discharge to home as patient lives alone and is now not able to manage on own due to hip/back pain after injection. Patient inquired about other discharge options. This outreach and education social worker broached topic of half-way placement for patient in the event that insurance will not provide further coverage due to change in medical status. Patient reports to be unable to afford half-way and is interested in Medicaid application being completed. Patient provided with list of nursing facility in relationship to patient geographical region. Patient first choice is the [facility] and second choice is [facility]. Per nursing staff patient is able to have another injection tomorrow but only after patient has been discharged for skilled unit. This outreach and education social worker did communicate to patient that a request to patient insurance for continued stay approval has been made but there is no guarantee that insurance will provide further time/care for patient at a skilled level. Will continue to follow. Medicaid application completed with patient and faxed to local [employer]. Telephone call to the [facility]. Unable to accept pending medicaid. Telephone call to Linnea Gonsales. Linnea reports to be able to review clinicals. Clinical information faxed. Transfer to extended care form initiated. Proposed discharge date: 01/08/2021 pending insurance providing further converge. Disposition: Extended Care Facility. Will continue to follow. Verenice BRANTLEY, ZULLY
--- NOTE | 2021-01-07 11:08 | NURSING ---
Pt's BS [address] Culver updated and new order for Humalog 10 units x1 dose.
[2021-01-07] MEDS: Insulin Lispro 100 UNIT/ML INSULN.PEN 10 UNIT SC (11:21)
--- NOTE | 2021-01-07 11:30 | NURSING ---
Pt c/o of pain stating she cannot go home tomorrow, she does not feel safe due to her pain level. Dr. Camacho contacted and stated he could do an injection as an outpatient tomorrow at 2:15 after pt is discharged from TCU
--- NOTE | 2021-01-07 14:37 | PCM.TXEXTCAR ---
Diet 12/29/20 19:31 Diet: Cardiac - Heart Healthy Food consistency:: Regular Liquid Consistency:: Regular/Thin Is pt able to select menu?: Yes Routine Orders/Code Status Suppository Type: Dulcolax 10mg Suppository Frequency: Daily PRN Code Status: Full Code Wound(s) Right elbow: Wound Type: Skin Tear Dressing Change: adaptic Right forearm: Wound Type: Skin Tear Dressing Change: Adaptic and DSD coccyx: Wound Type: shearing Dressing Change: cal Therapies Weight Bearing: Weight bearing as tolerated Extremity Affected:: Bilateral Lower Problem/Diagnosis (1) Muscle tenderness: Status: Acute (2) Lumbar spinal stenosis: Status: Acute (3) Right lumbar radiculopathy: Status: Acute (4) Intractable low back pain: Status: Acute (5) Lumbar spinal stenosis: Status: Chronic (6) Strain of muscle of right hip: Status: Acute (7) Muscle tension pain: Status: Acute Allergies/Procedures Done in Hospital Allergies clindamycin Allergy (Mild, Verified 12/27/20 10:38) rash codeine phosphate [From Tylenol-Codeine #3] Adverse Reaction (Severe, Verified 12/27/20 10:38) Nausea Procedures: None Type of Care/Length of Stay Estimated LOS: Convalescent Care Less Than 30 days Type of Care Needed: Intermediate Rehab Potential: Fair Prognosis: Fair Additional Orders/Day of Discharge Day of Discharge: 01/08/21 Dietary and Speech Recommendations Dietitian Recommendations/Changes: Continue cardiac diet as ordered; will monitor PO intake and blood sugars and add CHO restriction if indicated Obtain current wt Follow Up Care Please Follow Up With: Jaime Culver Chi, MD (PCP) When: After [facility]. Discharge Plan Admission Admit Date/Time: 12/29/20 18:41 Primary Reason for Your Visit: Debility Attending Provider: Jaime Culver Chi Primary Care Provider: Jaime Culver Chi Consulting Providers: Harshad Camacho Instructions Additional Instructions / Restrictions: Discharge home alone with daughter support 01/08/2021, [facility] PT/OT. Discharge Orders/Prescriptions Prescriptions: New acetaminophen 500 mg Tablet 1,000 mg PO Q6H PRN PRN (Reason: Pain Score 1-3) Qty: 0 RF: 0 baclofen 10 mg Tablet 10 mg PO TID 30 Days Qty: 90 RF: 0 Continued levothyroxine 125 mcg tablet 125 mcg PO DAILY RF: 0 metoprolol succinate 50 MG tablet extended release 24 hr 50 mg PO DAILY RF: 0 fluticasone furoate-vilanterol 1 EACH blister with device 1 ea IH DAILY RF: 0 metformin 500 mg Tablet Extended Release 24 Hr 500 mg PO DAILY RF: 0 furosemide [Lasix] 40 mg Tablet 40 mg PO DAILY RF: 0 gabapentin 300 mg capsule 300 mg PO TIDCM 30 Days Qty: 90 RF: 0 Discontinued oxycodone 5 mg Tablet 5 mg PO Q4H PRN PRN (Reason: Pain Score 4-5) Qty: 0 RF: 0 sennosides-docusate sodium 1 TABLET tablet 1 tablet PO BID RF: 0 No Action albuterol sulfate 1 PUFF inhaler 1 - 2 puff INHALATION Q6H PRN PRN (Reason: Sob &/Or Wheezing) RF: 0 ascorbic acid (vitamin C) 1,000 mg Tablet,Chewable 1 g PO DAILY RF: 0 Alive Women's 50 Plus 120 mcg-150 mcg -37.5 mg Tablet,Chewable 1 tab PO DAILY RF: 0 tizanidine 2 mg Tablet 4 mg PO Q8H PRN PRN (Reason: Muscle Spasm) Qty: 0 RF: 0 dexamethasone 4 mg tablet 4 mg PO BREAKFAST RF: 0 enoxaparin 40 mg/0.4 mL syringe 40 mg subcut DAILY RF: 0 insulin lispro [Humalog KwikPen Insulin] 100 unit/mL insulin pen See Protocol unit subcut ACHS RF: 0 Referrals / Follow Up: Jaime Culver Chi, MD [Primary Care Provider] - Disposition Disposition (needs filled in before D/C Order can be placed): Home, Self Care
--- NOTE | 2021-01-07 14:46 | CASEMGMT ---
Social Work Telephone call from [facility]. Patient has been accepted. Currently waiting for NATHALIA pending number to be able to submit for Level of Care. Will continue to follow. Verenice BRANTLEY, ZULLY
[2021-01-07 15:03] VITALS: BP 129/71; PULSE 72; RESP 20; TEMP 36.8; O2SAT 96
[2021-01-07 16:56] LABS: Bedside Glucose 144 mg/dL (70-110)
[2021-01-07] MEDS: Albuterol 2.5 MG/3 ML VIAL.NEB. INHALATION (19:52)
[2021-01-07 19:53] VITALS: PULSE 68; RESP 16; O2SAT 96
[2021-01-07 21:21] LABS: Bedside Glucose 252 mg/dL (70-110)
[2021-01-08] MEDS: oxyCODONE 5 MG Tablet PO (03:28)
[2021-01-08 05:00] VITALS: BP 143/53; PULSE 70; RESP 16; TEMP 36.5; O2SAT 98
[2021-01-08 06:25] LABS: Bedside Glucose 171 mg/dL (70-110)
[2021-01-08 06:26] VITALS: PULSE 70
[2021-01-08] MEDS: Levothyroxine 125 MCG Tablet PO (06:26)
[2021-01-08] MEDS: Pantoprazole Sodium 40 MG Tablet PO (06:26)
[2021-01-08] MEDS: FLUTICASONE/VILANTEROL 1 EACH BLST.W.DEV INHALATION (06:26)
[2021-01-08] MEDS: Furosemide 40 MG Tablet PO (06:26)
[2021-01-08] MEDS: Metoprolol(XL)Succ 50 MG Tablet PO (06:26)
[2021-01-08] MEDS: Losartan Potassium 100 MG Tablet PO (06:27)
[2021-01-08] MEDS: Baclofen 10 MG Tablet PO (06:27)
[2021-01-08] MEDS: Menthol/Lanolin/Calamine/Znox 113 GM Tube 1 APPLIC TOPICAL (06:32)
[2021-01-08 06:38] VITALS: PULSE 74; O2SAT 98
[2021-01-08] MEDS: metFORMIN (XR) 500 MG Tablet PO (08:13)
[2021-01-08] MEDS: Gabapentin 300 MG Capsule PO (08:13)
--- NOTE | 2021-01-08 08:58 | MDS.RN ---
Information for the mds was obtained from review of the clinical record, interview of resident, staff, and direct observation of resident's care.
[2021-01-08 11:00] LABS: Bedside Glucose 188 mg/dL (70-110)
--- NOTE | 2021-01-08 11:23 | CASEMGMT ---
Social Work Have yet to receive medicaid pending number from job and family services. Telephone call to Harika FIGUEROA. Voicemail left. Will continue to follow. Will need pending number in order to process LOC to allow for discharge today. Verenice BRANTLEY, FABRICIO-S
--- NOTE | 2021-01-08 12:23 | CASEMGMT ---
Social Work Telephone call to [employer] [facility], [place]. Medicaid pending number obtained: [id number]. Level of Care submitted to [facility]. Proposed discharge date: 01/08/2021 to [facility]. Will continue to follow. Verenice BRANTLEY, ZULLY
[2021-01-08 13:33] VITALS: BP 139/50; PULSE 72; RESP 17; TEMP 36.3; O2SAT 96
--- NOTE | 2021-01-08 15:14 | CASEMGMT ---
Social Work Level of care obtained. [place] [facility]. Telephone call to [facility], transportation set up for 01/08/2021 @ 5:30pm. [place] [facility] and patient updated on transportation time/date. All agreeable to plan. Proposed discharge date: 01/08/2021 Verenice BRANTLEY, MAGDAS
== END 2021-01-08 15:00 | disposition home or self-care (01) | DRG 552 ==
PROVIDERS: Admitting Provider Family Medicine Geriatric Medicine; PCP Family Medicine Geriatric Medicine; Visit Provider Family Medicine Geriatric Medicine
DX: M48.061 Spinal stenosis, lumbar region without neurogenic claudication (principal); E03.9 Hypothyroidism, unspecified; E11.9 Type 2 diabetes mellitus without complications; I10 Essential (primary) hypertension; Z23 Encounter for immunization; K21.9 Gastro-esophageal reflux disease without esophagitis; M54.16 Radiculopathy, lumbar region; J45.909 Unspecified asthma, uncomplicated; E78.5 Hyperlipidemia, unspecified; Z79.899 Other long term (current) drug therapy; Z79.84 Long term (current) use of oral hypoglycemic drugs; G25.81 Restless legs syndrome; M79.10 Myalgia, unspecified site; M25.551 Pain in right hip; G89.4 Chronic pain syndrome
CPT/HCPCS: 36415; 74018; 80048; 81001; 82962; 85025; 87086; 87426; 87635; 94640; 97110; 97116; 97162; 97166; 97530; 97535; 97802; G0009; U0005; 90670; U0003

== ENCOUNTER → 2020-12-31 13:39 | Outpatient (CLI) | payer MEDICARE, SELFPAY ==
[2020-12-29 18:47] VITALS: BMI 32.5
--- NOTE | 2020-12-31 14:06 | MRI_ITS ---
STUDY: MRI LUMBAR SPINE WITHOUT CONTRAST REASON FOR EXAM: Female, 75 years old. RIGHT LUMBAR RADICULOPATHY TECHNIQUE: Standardized fat and water weighted pulse sequences were obtained in the sagittal and axial planes. COMPARISON: None FINDINGS: T12-L1: Disc desiccation and mild decreased disc space with no significant spinal canal narrowing or foraminal narrowing. Normal lumbar lordosis. There is no substantial scoliosis. Normal conus medullaris that terminates at the T12/L1 level. L1-2: Disc desiccation and decreased disc space with minimal broad-based disc bulge. No significant spinal canal narrowing or foraminal narrowing. L2-3: Degenerative disc changes and broad-based circumferential disc bulge with compounding facet arthropathy and ligamentum flavum hypertrophy resulting in moderate to severe spinal canal narrowing at this level. No significant foraminal narrowing is evident. L3-4: Degenerative disc changes and broad-based disc bulge is present with compounding facet arthropathy resulting in mild spinal canal narrowing at this level. There is moderate to severe bilateral foraminal narrowing due to facet arthropathy. L4-5: Disc desiccation and decreased disc space with broad-based disc bulge resulting in moderate bilateral foraminal narrowing without significant spinal canal narrowing. L5-S1: Degenerative disc space loss and effusion with degenerative broad-based disc bulge without significant spinal canal narrowing or foraminal narrowing. Normal visualized sacral ala. Normal visualized paraspinous soft tissue structures. MRI/Spine Lumbar (Routine) IMPRESSION: 1. L2-3 degenerative changes resulting in moderate to severe spinal canal narrowing, clinically correlate for descending L3 radiculopathy. 2. L3-4 degenerative changes resulting in moderate severe bilateral foraminal narrowing. Additional degenerative changes as above. Electronically Signed: Deshawn Phoenix DO at 20:43 EDT , Service support ,
== END ==
PROVIDERS: PCP Family Medicine Geriatric Medicine; Visit Provider Family Medicine Geriatric Medicine
DX: M54.16 Radiculopathy, lumbar region (principal); M48.02 Spinal stenosis, cervical region; Z98.890 Other specified postprocedural states
CPT/HCPCS: 72148

== ENCOUNTER → 2021-01-14 05:00 | Outpatient (REF) | payer MEDICARE, SELFPAY ==
[2020-12-29 18:47] VITALS: BMI 32.5
[2021-01-14 08:55] LABS: Hematocrit 35.7 % (37-47); Hemoglobin 11.9 g/dL (12.0-15.0); Mean Corp Hgb Conc 33.3 g/dL (32-36); Mean Corpuscular Hgb 34.5 pg (27.0-32.0); Mean Corpuscular Volume 103.5 fL (81-99); Mean Platelet Vol. 11.5 fl (6.2-12.0); Platelet Count 289 K/mm3 (150-450); RBC Distribution Width CV 12.9 % (11.6-14.6); RBC Distribution Width SD 48.7 fl (35.1-43.9); Red Blood Count 3.45 M/mm3 (4.2-5.4); White Blood Count 20.6 K/mm3 (4.4-11.0)
[2021-01-14 09:13] LABS: Anion Gap 8 (5-15); BUN 27 mg/dL (7-18); BUN/Creat Ratio 33.5 RATIO (10-20); Calcium,Total 8.4 mg/dL (8.5-10.1); Chloride 94 mmol/L (98-107); Creatinine, Serum 0.81 mg/dL (0.55-1.02); EST Glomerular Filtration Rate 73 mL/min (>60); Est Glom Filt Rate - Afr Amer 88 mL/min (>60); Glucose 151 mg/dL (74-106); Sodium Level 133 mmol/L (136-145)
== END ==
LOC: OLS.WHLEAS 05:00
PROVIDERS: PCP Family Medicine Geriatric Medicine; Referring Provider Family Medicine; Visit Provider Family Medicine
DX: E11.9 Type 2 diabetes mellitus without complications (principal); M54.16 Radiculopathy, lumbar region; K21.9 Gastro-esophageal reflux disease without esophagitis; M48.061 Spinal stenosis, lumbar region without neurogenic claudication; M54.41 Lumbago with sciatica, right side; S76.011D Strain of muscle, fascia and tendon of right hip, subsequent encounter
CPT/HCPCS: 36415; 80048; 85027

== ENCOUNTER → 2021-01-15 19:00 | Outpatient (REF) | payer MEDICARE, SELFPAY ==
[2020-12-29 18:47] VITALS: BMI 32.5
[2021-01-16 07:17] LABS: Color, Urine Straw (Yellow); Glucose, Dipstick 1000 mg/dl (Normal); Ketone-Dipstick Negative (Negative); Leukocyte Esterase-Dipstick Negative /ul (Negative); Nitrite-Dipstick Negative (Negative); Occult Blood-Urine Negative /ul (Negative); Protein-Dipstick Negative (Negative); Urine Bilirubin Dipstick Negative (Negative); Urine Clarity Clear (Clear); Urine Urobilinogen Normal (Normal)
[2021-01-19 18:30] VITALS: BMI 32.7
== END ==
LOC: OLS.WHLEAS 19:00
PROVIDERS: PCP Family Medicine Geriatric Medicine; Visit Provider Family Medicine
DX: E11.9 Type 2 diabetes mellitus without complications (principal); M54.16 Radiculopathy, lumbar region; K21.9 Gastro-esophageal reflux disease without esophagitis; M48.061 Spinal stenosis, lumbar region without neurogenic claudication; M54.41 Lumbago with sciatica, right side; S76.011D Strain of muscle, fascia and tendon of right hip, subsequent encounter; Z79.899 Other long term (current) drug therapy
CPT/HCPCS: 81002; 87086; 87088

== ENCOUNTER → 2021-01-19 05:00 | Outpatient (REF) | payer MEDICARE, SELFPAY ==
[2020-12-29 18:47] VITALS: BMI 32.5
[2021-01-19 08:33] LABS: Potassium 3.8 mmol/L (3.5-5.1)
[2021-01-19 08:45] LABS: Absolute Lymphocyte Count 1.47 X10^3/uL (0.83-4.51); Absolute Neutrophil Count 15.8 X10^3/uL (2.0-7.7); Basophil# 0.06 X10^3/uL; Basophil% 0.3 % (0-1); Eosinophil# 0.39 X10^3/uL; Hematocrit 34.8 % (37-47); Hemoglobin 11.4 g/dL (12.0-15.0); Lymphocyte # 1.47 X10^3/ul (0.83-4.51); Lymphocyte % 7.6 % (19-41); Mean Corp Hgb Conc 32.8 g/dL (32-36); Mean Corpuscular Hgb 34.9 pg (27.0-32.0); Mean Corpuscular Volume 106.4 fL (81-99); Mean Platelet Vol. 11.9 fl (6.2-12.0); Monocyte# 1.23 X10^3/uL; Monocyte% 6.4 % (0-10); NRBC Flagged by Analyzer 0 % (0-5); Neutrophil # 15.77 X10^3/uL (2.7-7.7); Neutrophil % 81.9 % (47-70); Platelet Count 198 K/mm3 (150-450); RBC Distribution Width CV 12.9 % (11.6-14.6); RBC Distribution Width SD 50.4 fl (35.1-43.9); Red Blood Count 3.27 M/mm3 (4.2-5.4); White Blood Count 19.3 K/mm3 (4.4-11.0)
== END ==
LOC: OLS.WHLEAS 05:00
PROVIDERS: PCP Family Medicine Geriatric Medicine; Referring Provider Family Medicine; Visit Provider Family Medicine
DX: E87.6 Hypokalemia (principal); M54.16 Radiculopathy, lumbar region; K21.9 Gastro-esophageal reflux disease without esophagitis; M48.061 Spinal stenosis, lumbar region without neurogenic claudication; M54.41 Lumbago with sciatica, right side; S76.011D Strain of muscle, fascia and tendon of right hip, subsequent encounter
CPT/HCPCS: 36415; 84132; 85025

== ENCOUNTER 2021-01-19 13:54 | Inpatient (IN) | payer MEDICARE, SELFPAY ==
[2021-01-19] VITALS (7 sets, daily range): BP systolic 155–180; BP diastolic 72–89; PULSE 83–96; RESP 16–18; TEMP 36.2–37.1; O2SAT 92–95; BMI 32.5; BMI 32.7
--- NOTE | 2021-01-19 15:18 | CT_ITS ---
STUDY: CT PELVIS WITHOUT CONTRAST REASON FOR EXAM: Female, 75 years old. Abnormal XR, eval for frx RADIATION DOSAGE (If Supplied By Facility): CTDIvol = ( 30.60 ) mGy, DLP = ( 1510.01 ) mGycm TECHNIQUE: Transaxial imaging of the pelvis was performed with oral contrast, and without intravenous administration of contrast material. Individualized dose optimization techniques were used for this CT. COMPARISON: X-ray 01/19/2021. FINDINGS: Acute, minimally impacted subcapital fracture of the right femoral neck with mild varus angulation. No displacement. No additional fracture. Degenerative changes of the lower lumbar spine. Bladder is well distended. No free fluid in the pelvis. Mild sigmoid diverticulosis, no acute diverticulitis. CT/Pelvis without IV Contrast IMPRESSION: 1. Acute subcapital fracture of the right femoral neck with mild varus angulation. Electronically Signed: Mindy Szymanski MD at 16:50 EDT Tel , Service support ,
--- NOTE | 2021-01-19 15:47 | RAD_ITS ---
STUDY: X-RAY - RIGHT KNEE REASON FOR EXAM: Female, 75 years old. Pain TECHNIQUE: 2 view(s) of the knee. COMPARISON: None. FINDINGS: Normal visualized distal femur. Normal visualized proximal tibia and fibula. Normal proximal tibiofibular articulation. There is mild degenerative arthrosis of the medial femorotibial compartment. Normal lateral femorotibial compartment. Normal patellofemoral articulation. The soft tissue structures are unremarkable. RAD/Knee 1 or 2 Views IMPRESSION: Degenerative arthrosis. Electronically Signed: Gonzalo Jordan MD at 15:59 EDT , Service support ,
--- NOTE | 2021-01-19 15:47 | EDS_ITS ---
HPI History of Present Illness Chief Complaint: Lower Extremity Injury Informant: patient Narrative Narrative: Patient is a 75-year-old female who presents to the emergency department for nontraumatic right hip pain. She states that she was walking up steps when she developed significant pain approximately 2 to 3 weeks ago. She was unable to ambulate so she was sent to a senior care. She had repeat x-rays performed today which showed a suspicion of a fracture of her right femur. She was sent in for CT scan and work-up. Patient states she has not been able to bear any weight on the right leg over the past few weeks. She describes the pain is excruciating when she attempts this. She has been on Tylenol and Martelle at the senior care. The majority the pain is in the right hip and into the right proximal thigh. She denies any weakness or loss of sensation in the leg. She denies any abdominal pain or back pain. No systemic symptoms but any fever/chills. [facility] Medical History (Updated 01/19/21 @ 21:[address] Justin King, ) Asthma B12 deficiency Cataract Cataracts, bilateral Chronic back pain Diabetes GERD (gastroesophageal reflux disease) History of colon polyps HTN (hypertension) Hyperlipidemia Kidney disease Muscle tenderness Non-smoker RLS (restless legs syndrome) Home Medications metoprolol succinate 50 mg PO DAILY 05/19/20 [History Last Taken 01/19/21] albuterol sulfate 1 - 2 puff INHALATION Q6H PRN PRN 06/02/20 [History Last Taken 12/26/20] levothyroxine 125 mcg tablet 125 mcg PO DAILY tab 06/09/20 [History Last Taken 01/19/21] fluticasone furoate-vilanterol 1 ea IH DAILY 06/17/20 [History Last Taken 01/19/21] Alive Women's 50 Plus 1 tab PO DAILY 12/27/20 [History Last Taken 01/19/21] ascorbic acid (vitamin C) 1 g PO DAILY 12/27/20 [History Last Taken 01/19/21] metformin 500 mg PO DAILY 12/27/20 [History Last Taken 01/19/21] furosemide [Lasix] 40 mg PO DAILY 12/28/20 [History Last Taken Unknown] insulin lispro [Humalog KwikPen Insulin] See Protocol SUBCUT ACHS 12/29/20 [History Last Taken 01/19/21] tizanidine 4 mg PO Q8H PRN PRN #0 tab 12/29/20 [Rx Last Taken Unknown] acetaminophen 1,000 mg PO Q6H PRN PRN #0 tab 01/05/21 [Rx Last Taken Unknown] gabapentin 300 mg PO TIDCM 30 Days #90 cap 01/05/21 [Rx Last Taken 01/19/21] baclofen 10 mg PO TID 01/19/21 [History Last Taken 01/19/21] oxycodone-acetaminophen 1 tab PO TID PRN PRN 01/19/21 [History Last Taken Unknown] potassium chloride [K-Dur] 20 meq PO DAILY 01/19/21 [History Last Taken 01/19/21] sennosides-docusate sodium [Senna Plus] 1 tab PO DAILY PRN PRN 01/19/21 [History Last Taken Unknown] Allergy/AdvReac Type Severity Reaction Status Date / Time clindamycin Allergy Mild rash Verified 01/19/21 13:54 codeine phosphate AdvReac Severe Nausea Verified 01/19/21 13:54 [From Tylenol-Codeine #3] Family History Mother Heart valve disorder Hypertension Heart disease Father Pneumococcal pneumonia CVA (cerebral vascular accident) Heart disease Myocardial infarction Surgical History History of appendectomy History of bilateral carpal tunnel release History of carpal tunnel release History of colonoscopy (~2012) History of hysterectomy History of loop recorder history of pain stimulator Hx of tonsillectomy Social History household members: none housing: apartment number of children: 2 current occupational status: retired current occupational exposures/hazards: No pets and animals: No leisure activities: exercise and volunteer work Smoking Status: Never smoker ROS ROS ED Constitutional Constitutional ED: Denies chills or fever(s) Eyes Eyes: Denies change in vision ENT ENT ED: Denies epistaxis or rhinorrhea Cardiovascular Cardiovascular: Denies chest pain or palpitations Respiratory/Chest Respiratory/Chest: Denies cough, dyspnea or dyspnea on exertion Gastrointestinal Gastrointestinal: Denies abdominal pain, diarrhea, nausea or vomiting Genitourinary Genitourinary ED: Denies dysuria, hematuria or urinary frequency Musculoskeletal Musculoskeletal: Reports arthralgias; Denies back pain or neck pain Integumentary Denies rash Neurologic Neurologic: Denies dizziness, headache(s) or weakness EXAM Physical Exam Const Vital Signs: 01/19/21 13:54 01/19/21 17:00 Temperature 98.7 F Temperature Source Temporal Pulse Rate 96 87 Respiratory Rate 16 16 Blood Pressure 155/89 H 180/82 H Blood Pressure Mean 111 114 Pulse Ox 92 95 Oxygen Delivery Method Room Air Room Air Positive well nourished and well developed General Appearance ED: well developed and NAD HEENT Reports normocephalic, head/scalp atraumatic and moist mucous membranes Eyes PERRL and EOMs intact bilaterally Neck supple Resp normal respiratory effort and clear to auscultation bilaterally Auscultation: Negative for rales, rhonchi or wheezes Cardio regular rate, regular rhythm and no murmurs GI normal to inspection, nondistended, normoactive bowel sounds and non-tender Palpation: soft; Negative for guarding or rebound tenderness present Extremity Extremity Narrative: Bilateral lower extremity edema. There is tenderness to the proximal thigh and right hip. Neurovascularly intact. Neuro no sensory deficits noted Sensorium / Orientation: alert Motor Exam: strength 5/5 throughout Psych mental status grossly normal Skin no rashes or lesions noted MDM MDM MDM Narrative Medical decision making narrative: Patient presents to the ED for right hip pain has been going on for the past 2 weeks. She had an outpatient x-ray performed today which was suspicious for fracture and recommended CT scan. Will obtain this image. CT scan was significant for the subcapital fracture of the right hip. I did speak with Dr. Johnny Fisher. Will bring into the hospital for further evaluation and management. Basic lab work and EKG being obtained for preop evaluation for hospitalist but will admit at this time. Lab work came back with elevated leukocytosis. This will need further evaluation as an inpatient. Lab Data Labs: Laboratory Results - last 24 hr 01/19/21 01/19/21 17:10 17:10 WBC 19.9 H RBC 3.66 L Hgb 12.6 Hct 38.1 MCV 104.1 H MCH 34.4 H MCHC 33.1 RDW Std Deviation 49.7 H RDW Coeff of Taran 12.9 Plt Count 227 MPV 11.4 Immature Gran % (Auto) 1.700 H Neut % (Auto) 83.2 H Lymph % (Auto) 7.0 L Early % (Auto) 6.4 Eos % (Auto) 1.4 Baso % (Auto) 0.3 Absolute Neuts (auto) 16.5 H Absolute Lymphs (auto) 1.40 Nucleated RBC % 0 Sodium 133 L Potassium 4.0 Chloride 96 L Carbon Dioxide 30.0 Anion Gap 7 BUN 14 Creatinine 0.71 Estim Creat Clear Calc 40.68 Est GFR (MDRD) Af Amer 103 Est GFR (MDRD) Non-Af 85 BUN/Creatinine Ratio 19.8 Glucose 156 H Calcium 8.4 L Radiography Diagnostic Testing: Radiology Impression Pelvis CT 01/19/21 15:18 IMPRESSION: 1. Acute subcapital fracture of the right femoral neck with mild varus angulation. Electronically Signed: Mindy Szymanski MD at 16:50 EDT Tel , Service support , Knee X-Ray 01/19/21 15:47 IMPRESSION: Degenerative arthrosis. Electronically Signed: Gonzalo Jordan MD at 15:59 EDT , Service support , Discharge Plan Dx/Rx/DC Orders Clinical Impression: Closed femur fracture, Leukocytosis Disposition Disposition: Acute Care Hospital [facility] Discharge Date/Time: 01/19/21 18:06
[2021-01-19] MEDS: Morphine 4 MG/ML Syringe IM (16:18)
--- NOTE | 2021-01-19 17:16 | EKG12_ITS ---
Test Reason : BROKE HIP Blood Pressure : / mmHG Vent. Rate : 087 BPM Atrial Rate : 087 BPM P-R Int : 132 ms QRS Dur : 084 ms QT Int : 374 ms P-R-T Axes : 070 -13 076 degrees QTc Int : 450 ms Normal sinus rhythm Possible Left atrial enlargement Left ventricular hypertrophy Poor R wave progression Abnormal ECG Confirmed by FELICIA SAUCEDA, CHERISE ([id number]), commercial production editor DOROTEO HERNANDEZ ([id number]) on 01/21/2021 9:24:50 AM Referred By: SERVANDO Confirmed By:CHERISE DUARTE MD
--- NOTE | 2021-01-19 17:24 | HP.PCM.HOS_ITS ---
[facility] - General General Date of Admission: 01/19/21 Date of Service: 01/19/21 Chief Complaint: Right hip pain HPI Narrative JERRELL BAUMAN, is a 75 F who presents with right hip pain. Patient symptoms started 3 weeks prior to her admission. She had apparently undergone work-up without any identifiable cause. Patient symptoms started while she was walking she did develop pain in the right hip however imaging studies was negative for fracture. Patient was undergoing evaluation as an extended care facility. She was seen and evaluated by Dr. Orta with spine surgery as a result of patient not being able to bear weight. CT performed demonstrated Acute subcapital fracture of the right femoral neck with mild varus angulation. Admitted to regular nursing floor after orthopedic surgeon on-call Dr. Rodriguezut been notified. [facility] Medical History (Updated 01/19/21 @ 18:34 by Denisha Quigley) Asthma B12 deficiency Cataract Cataracts, bilateral Chronic back pain Diabetes GERD (gastroesophageal reflux disease) History of colon polyps HTN (hypertension) Hyperlipidemia Kidney disease Muscle tenderness Non-smoker RLS (restless legs syndrome) Home Medications metoprolol succinate 50 mg PO DAILY 05/19/20 [History Last Taken 12/26/20] albuterol sulfate 1 - 2 puff INHALATION Q6H PRN PRN 06/02/20 [History Last Taken 12/26/20] levothyroxine 125 mcg tablet 125 mcg PO DAILY tab 06/09/20 [History Last Taken 12/26/20] fluticasone furoate-vilanterol 1 ea IH DAILY 06/17/20 [History Last Taken 12/26/20] Alive Women's 50 Plus 1 tab PO DAILY 12/27/20 [History Last Taken 12/26/20] ascorbic acid (vitamin C) 1 g PO DAILY 12/27/20 [History Last Taken 12/26/20] metformin 500 mg PO DAILY 12/27/20 [History Last Taken 12/26/20] furosemide [Lasix] 40 mg PO DAILY 12/28/20 [History Last Taken Unknown] dexamethasone 4 mg PO BREAKFAST 12/29/20 [History Last Taken Unknown] enoxaparin 40 mg SUBCUT DAILY 12/29/20 [History Last Taken Unknown] insulin lispro [Humalog KwikPen Insulin] See Protocol SUBCUT ACHS 12/29/20 [History Last Taken Unknown] tizanidine 4 mg PO Q8H PRN PRN #0 tab 12/29/20 [Rx Last Taken Unknown] acetaminophen 1,000 mg PO Q6H PRN PRN #0 tab 01/05/21 [Rx Last Taken Unknown] baclofen 10 mg PO TID 30 Days #90 tab 01/05/21 [Rx Last Taken Unknown] gabapentin 300 mg PO TIDCM 30 Days #90 cap 01/05/21 [Rx Last Taken Unknown] Allergy/AdvReac Type Severity Reaction Status Date / Time clindamycin Allergy Mild rash Verified 01/19/21 13:54 codeine phosphate AdvReac Severe Nausea Verified 01/19/21 13:54 [From Tylenol-Codeine #3] Family History Mother Heart valve disorder Hypertension Heart disease Father Pneumococcal pneumonia CVA (cerebral vascular accident) Heart disease Myocardial infarction Surgical History History of appendectomy History of bilateral carpal tunnel release History of carpal tunnel release History of colonoscopy (~2012) History of hysterectomy History of loop recorder history of pain stimulator Hx of tonsillectomy Social History household members: none housing: apartment number of children: 2 current occupational status: retired current occupational exposures/hazards: No pets and animals: No leisure activities: exercise and volunteer work Smoking Status: Never smoker ROS ROS Narrative GENERAL: denies fever, chills, HEENT: denies headache, RESPIRATORY: denies cough, sputum production, CARDIAC: denies chest pain, palpitations, GASTROINTESTINAL: denies abdominal pain, GENITOURINARY: denies dysuria, urgency, EXTREMITY: denies swelling MUSCULOSKELETAL: Right hip pain NEUROLOGIC: denies focal numbness, HEMATOLOGIC: denies easy bruising INTEGUMENT: denies rashes PSYCHIATRIC: denies suicidal or homicidal ideation Vital Signs Vital Signs Vital Signs: 01/19/21 13:54 01/19/21 17:00 01/19/21 17:21 Temperature 98.7 F 98.7 F Temperature Source Temporal Temporal Pulse Rate 96 87 87 Respiratory Rate 16 16 16 Blood Pressure 155/89 H 180/82 H 180/82 H Blood Pressure Mean 111 114 114 Pulse Ox 92 95 95 Oxygen Delivery Method Room Air Room Air Room Air Weight Weight: 86.183 kg Body Mass Index (BMI) 32.5 Physical Exam Narrative GENERAL: cooperative HEENT: Atraumatic; EYES; Anicteric, Normal Conjunctiva NECK; supple, normal thyroid, RESPIRATORY: Diminished to auscultation CARDIOVASCULAR: Regular S1 S2, GI: soft, normoactive bowel sounds, : No Renal angle tenderness; EXTREMITIES: No edema, no clubbing, MUSCULOSKELETAL: Right lower extremity externally rotated NEURO: Awake; no lateralizing signs. SKIN: No Rash PSYCH; Flat affect Results Lab / Micro Data Result Diagrams: 01/19/21 17:10 01/19/21 17:[address] 01/19/21 15:18 IMPRESSION: 1. Acute subcapital fracture of the right femoral neck with mild varus angulation. Electronically Signed: Mindy Szymanski MD at 16:50 EDT Tel , Service support , Knee X-Ray 01/19/21 15:47 IMPRESSION: Degenerative arthrosis. Electronically Signed: Gonzalo Jordan MD at 15:59 EDT , Service support , Assessment & Plan Assessment/Plan (1) Subcapital fracture of right hip: QUALIFIERS: Encounter type: initial encounter Fracture type: closed Qualified Code(s): S72.011A - Unspecified intracapsular fracture of right femur, initial encounter for closed fracture (2) Asthma: (3) Muscle tenderness: (4) Hypothyroidism: (5) Hypertension: (6) HLD (hyperlipidemia): PLAN: Patient is a 75-year-old lady who presented with a 3-week history of hip pain imaging studies obtained on admission demonstrated Acute subcapital fracture of the right femoral neck with mild varus angulation 1. Right hip pain secondary to right femoral neck fracture ?Imaging studies obtained on admission demonstrated Acute subcapital fracture of the right femoral neck with mild varus angulation. Patient has been admitted to regular nursing floor managed with immobilization, pain management with consultation placed to Dr. Russo with orthopedic surgery ?Patient diagnostic data reviewed. Patient perioperative surgical risk using the ACS NSQIP was estimated to be 8.3 compared to an average risk for his age being 12.0.. Will recommend proceeding with surgery without any further intervention 2. Diabetes mellitus type II -patient's oral hypoglycemics held. Placed on long acting insulin, Accu-Cheks a.c. and at bedtime and covered with sliding scale insulin 3. Hypertension - Blood pressure controlled, home medications continued with dose adjustment as needed 4. Hypothyroidism - Patient is on levothyroxine home dose continued 5. Mild intermittent asthma ?Aerosol treatment as needed 6. DVT prophylaxis ?Patient was on enoxaparin from the ECF plan is to hold and resume after surgery 7. Obesity with BMI of 32.6 ?Weight loss advised 8. Leukocytosis ?May be stress-induced patient currently does not have any evidence of infection Advance planning; did discuss with the patient regarding advanced directives as well as CODE STATUS. Did explain the various scenarios involved ( FULL CODE, DNR CCA, DNR CCA with no intubation, and DNR CC and what each meant) patient elected to be full code with CPR and intubation if needed. Order was placed. Time spent on discussion 18 minutes. Charges/Coding Visit Charges Inpatient E&M: 87481 Init Hosp L3 Procedures Hospitalists Procedures: 59901 Advncd Care Plan 30 Min
[2021-01-19 17:31] LABS: Anion Gap 7 (5-15); BUN 14 mg/dL (7-18); BUN/Creat Ratio 19.8 RATIO (10-20); Calcium,Total 8.4 mg/dL (8.5-10.1); Chloride 96 mmol/L (98-107); Creatinine, Serum 0.71 mg/dL (0.55-1.02); EST Glomerular Filtration Rate 85 mL/min (>60); Est Glom Filt Rate - Afr Amer 103 mL/min (>60); Estimated Creatinine Clearance 40.68 ml/min; Glucose 156 mg/dL (74-106); Sodium Level 133 mmol/L (136-145)
[2021-01-19 17:37] LABS: Absolute Neutrophil Count 16.5 X10^3/uL (2.0-7.7); Basophil# 0.06 X10^3/uL; Basophil% 0.3 % (0-1); Eosinophil# 0.28 X10^3/uL; Eosinophils% 1.4 % (0-5); Hematocrit 38.1 % (37-47); Hemoglobin 12.6 g/dL (12.0-15.0); Mean Corp Hgb Conc 33.1 g/dL (32-36); Mean Corpuscular Hgb 34.4 pg (27.0-32.0); Mean Corpuscular Volume 104.1 fL (81-99); Mean Platelet Vol. 11.4 fl (6.2-12.0); Monocyte# 1.28 X10^3/uL; Monocyte% 6.4 % (0-10); NRBC Flagged by Analyzer 0 % (0-5); Neutrophil # 16.51 X10^3/uL (2.7-7.7); Neutrophil % 83.2 % (47-70); Platelet Count 227 K/mm3 (150-450); RBC Distribution Width CV 12.9 % (11.6-14.6); RBC Distribution Width SD 49.7 fl (35.1-43.9); Red Blood Count 3.66 M/mm3 (4.2-5.4); White Blood Count 19.9 K/mm3 (4.4-11.0)
--- NOTE | 2021-01-19 18:49 | EKG12_ITS ---
Test Reason : PRE-OP Blood Pressure : / mmHG Vent. Rate : 085 BPM Atrial Rate : 085 BPM P-R Int : 128 ms QRS Dur : 080 ms QT Int : 368 ms P-R-T Axes : 065 -18 069 degrees QTc Int : 437 ms Normal sinus rhythm Voltage criteria for left ventricular hypertrophy Abnormal ECG Confirmed by FELICIA SAUCEDA, CHERISE ([id number]), graphics editor DOROTEO HERNANDEZ ([id number]) on 01/21/2021 11:54:03 AM Referred By: MANJINDER Confirmed By:CHERISE DUARTE MD
--- NOTE | 2021-01-19 19:00 | RAD_ITS ---
STUDY: X-RAY CHEST REASON FOR EXAM: Female, 75 years old. Pre-operative; cough TECHNIQUE: Single AP portable view of the chest. COMPARISON: Comparison is made with prior study of 11/26/2020. FINDINGS: EKG electrodes are seen. There is elevation of the right hemidiaphragm. Mild increased markings at the left lung base suggestive of left basilar atelectasis. There is no demonstrated pleural abnormality. Normal size heart. A loop recorder device is seen overlying the left hemithorax. Electrodes from a spinal stimulator device are seen with the tip at the T7-T8 level. Normal mediastinum and nasrin. Normal visualized pulmonary arteries. Normal visualized aortic arch and descending thoracic aorta. There are diffuse degenerative changes of the visualized thoracic spine. Normal visualized ribs, clavicles, and shoulders. There is no demonstrated abnormality of the visualized soft tissue structures of the upper abdomen. RAD/Chest 1 View (Portable) IMPRESSION: Mild degree of increased markings at the left lung base suggestive of left basilar atelectasis. Electronically Signed: Gonzalo Jordan MD at 8:46 EDT , Service support ,
[2021-01-19] MEDS: HYDROmorphone 1 MG/ML Syringe IV (19:56)
[2021-01-19] MEDS: 0.9% Saline Lock 10 ML Syringe IV ×2 (19:57→21:40)
[2021-01-19] MEDS: Albuterol 2.5 MG/3 ML VIAL.NEB. INHALATION (20:29)
[2021-01-19] MEDS: Budesonide Respules 0.5 MG/2 ML AMPUL.NEB. INHALATION (20:29)
[2021-01-19] MEDS: Baclofen 10 MG Tablet PO (21:40)
[2021-01-19] MEDS: Insulin Lispro 100 UNIT/ML INSULN.PEN SC (21:41)
[2021-01-19] MEDS: 0.9% Normal Saline 1,000 ML 75 ML IV (21:41)
[2021-01-19 21:51] LABS: Bedside Glucose 197 mg/dL (70-110)
[2021-01-20] VITALS (7 sets, daily range): BP systolic 142–168; BP diastolic 64–90; PULSE 68–97; RESP 16–18; TEMP 36.5–37.3; O2SAT 90–96; BMI 32.7
[2021-01-20] MEDS: HYDROmorphone 1 MG/ML Syringe IV (02:59)
[2021-01-20 06:12] LABS: Absolute Neutrophil Count 13.4 X10^3/uL (2.0-7.7); Basophil# 0.05 X10^3/uL; Basophil% 0.3 % (0-1); Eosinophil# 0.34 X10^3/uL; Eosinophils% 2.1 % (0-5); Hematocrit 34.2 % (37-47); Hemoglobin 11.1 g/dL (12.0-15.0); Lymphocyte % 7.4 % (19-41); Mean Corp Hgb Conc 32.5 g/dL (32-36); Mean Corpuscular Hgb 34.5 pg (27.0-32.0); Mean Corpuscular Volume 106.2 fL (81-99); Mean Platelet Vol. 11.6 fl (6.2-12.0); Monocyte# 1.03 X10^3/uL; Monocyte% 6.4 % (0-10); NRBC Flagged by Analyzer 0 % (0-5); Neutrophil # 13.37 X10^3/uL (2.7-7.7); Neutrophil % 82.4 % (47-70); Platelet Count 206 K/mm3 (150-450); RBC Distribution Width CV 12.8 % (11.6-14.6); RBC Distribution Width SD 50.2 fl (35.1-43.9); Red Blood Count 3.22 M/mm3 (4.2-5.4); White Blood Count 16.2 K/mm3 (4.4-11.0)
[2021-01-20] MEDS: Levothyroxine 125 MCG Tablet PO (06:30)
[2021-01-20] MEDS: Baclofen 10 MG Tablet PO ×3 (06:30→21:16)
[2021-01-20] MEDS: Insulin Lispro 100 UNIT/ML INSULN.PEN SC ×3 (06:30→21:16)
[2021-01-20 06:50] LABS: Bedside Glucose 187 mg/dL (70-110)
[2021-01-20 06:58] LABS: Anion Gap 6 (5-15); BUN 14 mg/dL (7-18); Calcium,Total 8.2 mg/dL (8.5-10.1); Chloride 100 mmol/L (98-107); Creatinine, Serum 0.58 mg/dL (0.55-1.02); EST Glomerular Filtration Rate 106 mL/min (>60); Est Glom Filt Rate - Afr Amer 128 mL/min (>60); Estimated Creatinine Clearance 40.68 ml/min; Glucose 169 mg/dL (74-106); Magnesium 1.8 mg/dL (1.6-2.6); Sodium Level 135 mmol/L (136-145)
[2021-01-20] MEDS: Albuterol 2.5 MG/3 ML VIAL.NEB. INHALATION ×4 (07:08→21:05)
[2021-01-20] MEDS: Budesonide Respules 0.5 MG/2 ML AMPUL.NEB. INHALATION ×2 (07:08→21:05)
--- NOTE | 2021-01-20 07:17 | PCM.PN.HOSP ---
Subjective Subjective Patient is a 75-year-old lady who presented with a 3-week history of hip pain imaging studies obtained on admission demonstrated Acute subcapital fracture of the right femoral neck with mild varus angulation Objective Data Objective Data Vital Signs: Vital Signs Temp Pulse Resp BP Pulse Ox 98 F 80 16 146/64 H 95 01/20/21 03:00 01/20/21 03:00 01/20/21 03:00 01/20/21 03:00 01/20/21 03:00 Oxygen Delivery Method Room Air Weight: 86.4 kg Body Mass Index (BMI) 32.7 Intake & Output: Intake and Output for Last 24 Hours 01/18/21 01/19/21 01/20/21 23:59 23:59 23:59 Output Total 750 / 750 Balance -750 / -750 Lab / Micro Data Result Diagrams: 01/20/21 05:48 01/20/21 05:48 Labs: Laboratory Results - last 24 hr 01/19/21 17:10: WBC 19.9 H, RBC 3.66 L, Hgb 12.6, Hct 38.1, MCV 104.1 H, MCH 34.4 H, MCHC 33.1, RDW Std Deviation 49.7 H, RDW Coeff of Taran 12.9, Plt Count 227, MPV 11.4, Immature Gran % (Auto) 1.700 H, Neut % (Auto) 83.2 H, Lymph % (Auto) 7.0 L, [place] % (Auto) 6.4, Eos % (Auto) 1.4, Baso % (Auto) 0.3, Absolute Neuts (auto) 16.5 H, Absolute Lymphs (auto) 1.40, Nucleated RBC % 0 01/19/21 17:10: Sodium 133 L, Potassium 4.0, Chloride 96 L, Carbon Dioxide 30.0, Anion Gap 7, BUN 14, Creatinine 0.71, Estim Creat Clear Calc 40.68, Est GFR (MDRD) Af Amer 103, Est GFR (MDRD) Non-Af 85, BUN/Creatinine Ratio 19.8, Glucose 156 H, Calcium 8.4 L 01/19/21 21:35: POC Glucose 197 H 01/20/21 05:48: WBC 16.2 H, RBC 3.22 L, Hgb 11.1 L, Hct 34.2 L, MCV 106.2 H, MCH 34.5 H, MCHC 32.5, RDW Std Deviation 50.2 H, RDW Coeff of Taran 12.8, Plt Count 206, MPV 11.6, Immature Gran % (Auto) 1.400 H, Neut % (Auto) 82.4 H, Lymph % (Auto) 7.4 L, [place] % (Auto) 6.4, Eos % (Auto) 2.1, Baso % (Auto) 0.3, Absolute Neuts (auto) 13.4 H, Absolute Lymphs (auto) 1.20, Nucleated RBC % 0 01/20/21 05:48: Sodium 135 L, Potassium 4.0, Chloride 100, Carbon Dioxide 29.0, Anion Gap 6, BUN 14, Creatinine 0.58, Estim Creat Clear Calc 40.68, Est GFR (MDRD) Af Amer 128, Est GFR (MDRD) Non-Af 106, BUN/Creatinine Ratio 24.0 H, Glucose 169 H, Calcium 8.2 L, Magnesium 1.8 01/20/21 06:28: POC Glucose 187 H Radiography Diagnostic Testing: Radiology Impression Pelvis CT 01/19/21 15:18 IMPRESSION: 1. Acute subcapital fracture of the right femoral neck with mild varus angulation. Electronically Signed: Mindy Szymanski MD at 16:50 EDT Tel , Service support , Knee X-Ray 01/19/21 15:47 IMPRESSION: Degenerative arthrosis. Electronically Signed: Gonzalo Jordan MD at 15:59 EDT , Service support , Physical Exam Narrative GENERAL: cooperative HEENT: Atraumatic; EYES; Anicteric, Normal Conjunctiva NECK; supple, normal thyroid, RESPIRATORY: Diminished to auscultation CARDIOVASCULAR: Regular S1 S2, GI: soft, normoactive bowel sounds, : No Renal angle tenderness; EXTREMITIES: No edema, no clubbing, MUSCULOSKELETAL: Right lower extremity externally rotated NEURO: Awake; no lateralizing signs. SKIN: No Rash PSYCH; Flat affect Assessment & Plan Assessment/Plan (1) Subcapital fracture of right hip: QUALIFIERS: Encounter type: initial encounter Fracture type: closed Qualified Code(s): S72.011A - Unspecified intracapsular fracture of right femur, initial encounter for closed fracture (2) Asthma: (3) Muscle tenderness: (4) Hypothyroidism: (5) Hypertension: (6) HLD (hyperlipidemia): PLAN: Patient is a 75-year-old lady who presented with a 3-week history of hip pain imaging studies obtained on admission demonstrated Acute subcapital fracture of the right femoral neck with mild varus angulation 1. Right hip pain secondary to right femoral neck fracture ?Imaging studies obtained on admission demonstrated Acute subcapital fracture of the right femoral neck with mild varus angulation. Patient has been admitted to regular nursing floor managed with immobilization, pain management with consultation placed to Dr. Russo with orthopedic surgery ?Patient diagnostic data reviewed. Patient perioperative surgical risk using the ACS NSQIP was estimated to be 8.3 compared to an average risk for his age being 12.0.. Will recommend proceeding with surgery without any further intervention -01/20/2021; patient's pain is controlled. Awaiting for orthopedic consultation. 2. Diabetes mellitus type II -patient's oral hypoglycemics held. Placed on long acting insulin, Accu-Cheks a.c. and at bedtime and covered with sliding scale insulin 3. Hypertension - Blood pressure controlled, home medications continued with dose adjustment as needed 4. Hypothyroidism - Patient is on levothyroxine home dose continued 5. Mild intermittent asthma ?Aerosol treatment as needed 6. DVT prophylaxis ?Patient was on enoxaparin from the ECF plan is to hold and resume after surgery 7. Obesity with BMI of 32.6 ?Weight loss advised 8. Leukocytosis ?May be stress-induced patient currently does not have any evidence of infection -01/20/2021. Chest x-ray obtained was negative for pneumonia ordered urinalysis as well Charges/Coding Visit Charges Inpatient E&M: 36827 Subs Hosp L2
[2021-01-20] MEDS: Metoprolol(XL)Succ 50 MG Tablet PO (08:57)
[2021-01-20] MEDS: Furosemide 40 MG Tablet PO (08:57)
[2021-01-20] MEDS: Potassium Chloride Oral Tablet 20 MEQ PO (08:57)
[2021-01-20] MEDS: Gabapentin 300 MG Capsule PO ×3 (08:57→17:12)
[2021-01-20] MEDS: oxyCODONE 5 MG Tablet PO ×3 (08:57→21:15)
[2021-01-20] MEDS: Senna/Docusate Sodium 1 Tablet PO (08:59)
--- NOTE | 2021-01-20 10:38 | CASEMGMT ---
Addendum entered by Salina Lacey 01/20/21 11:48: VENICE spoke with Linnea at [facility]. She said that since patient is there [facility] may be willing to approve patient on a one time contract since [facility] is not in network. Salina REGALADO Original Note: Patient was in TCU and was discharged to [facility] on pending Medicaid 01-08-21. VENICE sent updates to [facility]. VENICE will follow for d/c planning. However, she has [facility] and [facility] is not in network for skilled. Salina REGALADO
[2021-01-20 11:59] LABS: Bacteria 0 SEEN /hpf (None Seen); Mucous, Urine 0 SEEN /hpf (<or=2+); Squamous Epithelial Cells - UA 0 SEEN /hpf (5-10)
[2021-01-20 12:03] LABS: Color, Urine Yellow (Yellow); Glucose, Dipstick Normal (Normal); Ketone-Dipstick Negative (Negative); Leukocyte Esterase-Dipstick 25 /ul (Negative); Nitrite-Dipstick Negative (Negative); Occult Blood-Urine 10 /ul (Negative); Protein-Dipstick Negative (Negative); Urine Bilirubin Dipstick Negative (Negative); Urine Clarity Clear (Clear); Urine Urobilinogen Normal (Normal); Urine pH 6.5 (5.0 - 8.0)
[2021-01-20 12:17] LABS: Red Blood Cells-Urine 0-5 SEEN /hpf (0-5); White Blood Cells 0-5 SEEN /hpf (0-5)
[2021-01-20] MEDS: Enoxaparin 40 MG/0.4 ML Syringe SC (14:12)
[2021-01-20 17:20] LABS: Bedside Glucose 209 mg/dL (70-110)
[2021-01-20 21:11] LABS: Bedside Glucose 263 mg/dL (70-110)
[2021-01-21] VITALS (19 sets, daily range): BP systolic 113–196; BP diastolic 45–99; PULSE 74–98; RESP 14–20; TEMP 36.4–37.3; O2SAT 93–98; BMI 32.7
[2021-01-21] MEDS: hydrALAZINE 20 MG/ML Vial 10 MG IV (02:56)
--- NOTE | 2021-01-21 06:33 | NURSING ---
Received phone call from Dr. Russo. Pt to be NPO for surgery today.
[2021-01-21] MEDS: Insulin Lispro 100 UNIT/ML INSULN.PEN SC ×2 (06:44→21:54)
[2021-01-21 06:51] LABS: Bedside Glucose 173 mg/dL (70-110)
[2021-01-21] MEDS: Albuterol 2.5 MG/3 ML VIAL.NEB. INHALATION ×2 (06:59→19:46)
[2021-01-21] MEDS: Budesonide Respules 0.5 MG/2 ML AMPUL.NEB. INHALATION ×2 (06:59→19:46)
[2021-01-21 07:18] LABS: Absolute Lymphocyte Count 1.34 X10^3/uL (0.83-4.51); Absolute Neutrophil Count 14.3 X10^3/uL (2.0-7.7); Basophil# 0.04 X10^3/uL; Basophil% 0.2 % (0-1); Eosinophils% 1.1 % (0-5); Hematocrit 34.9 % (37-47); Hemoglobin 11.6 g/dL (12.0-15.0); Lymphocyte # 1.34 X10^3/ul (0.83-4.51); Lymphocyte % 7.7 % (19-41); Mean Corp Hgb Conc 33.2 g/dL (32-36); Mean Corpuscular Hgb 34.7 pg (27.0-32.0); Mean Corpuscular Volume 104.5 fL (81-99); Mean Platelet Vol. 11.5 fl (6.2-12.0); Monocyte# 1.37 X10^3/uL; Monocyte% 7.8 % (0-10); NRBC Flagged by Analyzer 0 % (0-5); Neutrophil # 14.25 X10^3/uL (2.7-7.7); Neutrophil % 81.7 % (47-70); Platelet Count 247 K/mm3 (150-450); RBC Distribution Width CV 12.9 % (11.6-14.6); RBC Distribution Width SD 49.5 fl (35.1-43.9); Red Blood Count 3.34 M/mm3 (4.2-5.4); White Blood Count 17.5 K/mm3 (4.4-11.0)
[2021-01-21] MEDS: HYDROmorphone 1 MG/ML Syringe IV (07:32)
[2021-01-21] MEDS: 0.9% Saline Lock 10 ML Syringe IV (07:32)
[2021-01-21 07:38] LABS: Anion Gap 7 (5-15); BUN 14 mg/dL (7-18); BUN/Creat Ratio 24.3 RATIO (10-20); Calcium,Total 8.4 mg/dL (8.5-10.1); Chloride 98 mmol/L (98-107); Creatinine, Serum 0.58 mg/dL (0.55-1.02); EST Glomerular Filtration Rate 108 mL/min (>60); Est Glom Filt Rate - Afr Amer 131 mL/min (>60); Estimated Creatinine Clearance 40.68 ml/min; Glucose 165 mg/dL (74-106); Potassium 3.7 mmol/L (3.5-5.1); Sodium Level 133 mmol/L (136-145)
[2021-01-21 07:40] LABS: Hemoglobin A1c 7.7 % (3.8-5.6)
[2021-01-21] MEDS: Metoprolol(XL)Succ 50 MG Tablet PO (07:42)
[2021-01-21 07:53] LABS: Thyroid Stim Hormone (TSH) 2.66 uIU/mL (0.358-3.74)
[2021-01-21 11:11] LABS: Bedside Glucose 158 mg/dL (70-110)
--- NOTE | 2021-01-21 12:00 | CON.PCM_ITS ---
Assessment & Plan Assessment/Plan (1) Subcapital fracture of right hip: QUALIFIERS: Encounter type: initial encounter Fracture type: closed Qualified Code(s): S72.011A - Unspecified intracapsular fracture of right femur, initial encounter for closed fracture PLAN: Patient has a displaced right femoral neck fracture in varus alignment. She is a community ambulator normally. She has spent the last 3 w eeks in a [place] [facility]. She does have multiple medical comorbidities. However life expectancy remains greater than 5 years. At this time I discussed the patient treatment options include nonoperative treatment, pin fixation and partial versus total replacement. I recommended total replacement based on patient's activity level as well as her coincide and osteoarthritis on radiographic examination. I do not appreciate any bone lesions on CT scan however we will send the specimen to evaluate for bony lesions as she does not have a history of traumatic injury. Risk and benefits of the procedure discussed patient occluding but not limited to blood loss, DVTs, PEs, nervous damage, infection, the risk of anesthesia include loss of life. We also discussed dislocations, leg length discrepancies. I did explain to the patient that risk of dislocation with total replacement is higher than partial replacement. Patient and her daughter were at bedside and agree to proceed with the treatment plan. She is n.p.o. Antibiotics ordered on-call to the operating room. We will proceed with surgery today. HPI Consult Data Date of Consult: 01/21/21 HPI Narrative Reason for Consultation: Right hip pain HPI Narrative: JERRELL BAUMAN, is a 75 F who presents severe right hip pain and inability to bear weight. Patient has been treated by Dr. Orta the local rail specialist for back pain. She reports this pain is completely different than her previous back pain where she had a decompression in June 2020. Patient reports that she did have some antecedent hip pain but 3 weeks ago she woke up in the morning had severe right hip pain. Patient reports the severity of the hip pain has gotten to the point where she did have some posterior hip injections by Dr. Malagon the local pain specialist. These reports were reviewed. Patient had x-rays in December 2020 no x-rays were appreciated. Patient does have a pain stimulator that obscures the right femur. For the last 3 weeks she has been [place] [facility] as she is unable to bear weight receiving fpc. However prior to that patient was a community ambulator without the assistance of walker or cane. She denies any falls to initiate the pain. Her pain is in her groin and anterior thigh and radiates down to her knee. She denies any radiation down to her toes or numbness and tingling associated with this. She has severe chronic asthma and did receive some breathing treatments prior to me examining her. [facility] Medical History (Updated 01/19/21 @ 21:[address] Justin King, DO) Asthma B12 deficiency Cataract Cataracts, bilateral Chronic back pain Diabetes GERD (gastroesophageal reflux disease) History of colon polyps HTN (hypertension) Hyperlipidemia Kidney disease Muscle tenderness Non-smoker RLS (restless legs syndrome) Home Medications metoprolol succinate 50 mg PO DAILY 05/19/20 [History Last Taken 01/19/21] albuterol sulfate 1 - 2 puff INHALATION Q6H PRN PRN 06/02/20 [History Last Taken 12/26/20] levothyroxine 125 mcg tablet 125 mcg PO DAILY tab 06/09/20 [History Last Taken 01/19/21] fluticasone furoate-vilanterol 1 ea IH DAILY 06/17/20 [History Last Taken 01/19/21] Alive Women's 50 Plus 1 tab PO DAILY 12/27/20 [History Last Taken 01/19/21] ascorbic acid (vitamin C) 1 g PO DAILY 12/27/20 [History Last Taken 01/19/21] metformin 500 mg PO DAILY 12/27/20 [History Last Taken 01/19/21] furosemide [Lasix] 40 mg PO DAILY 12/28/20 [History Last Taken Unknown] insulin lispro [Humalog KwikPen Insulin] See Protocol SUBCUT ACHS 12/29/20 [History Last Taken 01/19/21] tizanidine 4 mg PO Q8H PRN PRN #0 tab 12/29/20 [Rx Last Taken Unknown] acetaminophen 1,000 mg PO Q6H PRN PRN #0 tab 01/05/21 [Rx Last Taken Unknown] gabapentin 300 mg PO TIDCM 30 Days #90 cap 01/05/21 [Rx Last Taken 01/19/21] baclofen 10 mg PO TID 01/19/21 [History Last Taken 01/19/21] oxycodone-acetaminophen 1 tab PO TID PRN PRN 01/19/21 [History Last Taken Unknown] potassium chloride [K-Dur] 20 meq PO DAILY 01/19/21 [History Last Taken 01/19/21] sennosides-docusate sodium [Senna Plus] 1 tab PO DAILY PRN PRN 01/19/21 [History Last Taken Unknown] Allergy/AdvReac Type Severity Reaction Status Date / Time clindamycin Allergy Mild rash Verified 01/19/21 13:54 codeine phosphate AdvReac Severe Nausea Verified 01/19/21 13:54 [From Tylenol-Codeine #3] Family History Mother Heart valve disorder Hypertension Heart disease Father Pneumococcal pneumonia CVA (cerebral vascular accident) Heart disease Myocardial infarction Surgical History History of appendectomy History of bilateral carpal tunnel release History of carpal tunnel release History of colonoscopy (~2012) History of hysterectomy History of loop recorder history of pain stimulator Hx of tonsillectomy Social History household members: none housing: apartment number of children: 2 current occupational status: retired current occupational exposures/hazards: No pets and animals: No leisure activities: exercise and volunteer work Smoking Status: Never smoker ROS ROS Narrative 14 point review of systems outside of what is mentioned in the HPI is negative Physical Exam Narrative Alert and oriented x3. HEENT normocephalic Eyes PERRL Neck no JVD Resp normal respiratory effort Cardio Negative for diaphoretic GI non-distended GI Narrative: Ecchymosis from insulin injections Extremity Extremity Narrative: Right lower extremity: Skin clean, dry, and intact. Limb is shortened and externally rotated Motor is intact dorsiflexion, EHL and plantar flexion. Sensation is intact to light touch saphenous, tod,l superficial peroneal, deep peroneal and tibial distributions. Calves are soft and supple. Lab / Micro Data Result Diagrams: 01/21/21 06:50 01/21/21 06:50 Labs: Laboratory Results - last 24 hr 01/20/21 11:50: Urine Color Yellow, Urine Clarity Clear, Urine pH 6.5, Ur Specific Stout 1.010, Urine Protein Negative, Urine Glucose (UA) Normal, Urine Ketones Negative, Urine Occult Blood 10 H, Urine Nitrite Negative, Urine Bilirubin Negative, Urine Urobilinogen Normal, Ur Leukocyte Esterase 25 H, Urine RBC 0-5 SEEN, Urine WBC 0-5 SEEN, Ur Squamous Epith Cells 0 SEEN, Urine Bacteria 0 SEEN, Urine Mucus 0 SEEN 01/20/21 17:09: POC Glucose 209 H 01/20/21 21:04: POC Glucose 263 H 01/21/21 06:42: POC Glucose 173 H 01/21/21 06:50: WBC 17.5 H, RBC 3.34 L, Hgb 11.6 L, Hct 34.9 L, MCV 104.5 H, MCH 34.7 H, MCHC 33.2, RDW Std Deviation 49.5 H, RDW Coeff of Taran 12.9, Plt Count 247, MPV 11.5, Immature Gran % (Auto) 1.500 H, Neut % (Auto) 81.7 H, Lymph % (Auto) 7.7 L, [place] % (Auto) 7.8, Eos % (Auto) 1.1, Baso % (Auto) 0.2, Absolute Neuts (auto) 14.3 H, Absolute Lymphs (auto) 1.34, Nucleated RBC % 0 01/21/21 06:50: Sodium 133 L, Potassium 3.7, Chloride 98, Carbon Dioxide 28.0, Anion Gap 7, BUN 14, Creatinine 0.58, Estim Creat Clear Calc 40.68, Est GFR (MDRD) Af Amer 131, Est GFR (MDRD) Non-Af 108, BUN/Creatinine Ratio 24.3 H, Glucose 165 H, Calcium 8.4 L 01/21/21 06:50: TSH 2.66 01/21/21 06:50: Hemoglobin A1c 7.7 H 01/21/21 06:50: Blood Type O POSITIVE, Antibody Screen NEGATIVE 01/21/21 10:58: POC Glucose 158 H Radiology Impression Chest X-Ray 01/19/21 19:00 IMPRESSION: Mild degree of increased markings at the left lung base suggestive of left basilar atelectasis. Electronically Signed: Gonzalo Jordan MD at 8:46 EDT , Service support ,
[2021-01-21] MEDS: Ipratropium/Albuterol Sulfate 3 ML AMPUL.NEB INHALATION (12:23)
--- NOTE | 2021-01-21 13:00 | BON_PTH ---
PATIENT: JERRELL BAUMAN LOC: MS3 U#:[id number] AGE/SX: 75/F [place] [facility] [place]: Dr. Sallie Lebron DO : 1945 BED: 1 DIS: 01/23/2021 SPEC #: [id number] RECD: 01/22/21 06:33 STATUS: GIOVANNI REQ #: [id number] ANTHONY: 01/21/21 13:[address]: Tyson Lomax DEPT: SURGICAL PATHOLOGY RECD BY: Neha Reeves ENTERED: 01/22/21 08:29 SP TYPE: Bone OTHR DR: MD Dr. Sallie Evangelista DO Dr. Michael Knapic, DO Dr. Tai Chi Kwok, MD Tissues: Femoral region, NOS Procedures: Decalcification bone/plaque Surgery Specimen Level IV Comments: @ Ordering doctor for DEC edited from to DR.SWIDME Gurrola by JAE at 01/22/21 1000 @ Ordering doctor for SUV edited from to DR.SWIDME Gurrola by JAE at 01/22/21 1000 @ Submitting doctor edited from to DR.SWIDME Gurrola by JAE at 01/22/21 1000 HEADER OPERATION: Total hip anterior approach PRE-OP DIAGNOSIS: Subcapital fracture of right hip TISSUE SUBMITTED: Fractured head right hip MICROSCOPIC DIAGNOSIS Right hip, total hip replacement/resection: Femoral head and detached pieces of bone with focal area of hemorrhage, callous formation and reactive changes. Negative for malignancy. CRISTEL:laurie 01/26/2021 MICROSCOPIC DESCRIPTION Slides are reviewed. GROSS DESCRIPTION Received is one container labeled with the patient's name and designated fractured head right hip. The specimen consists of a gandhi femoral head measuring 4 x 4 x 3.5 cm. The articular surface is smooth. Resection margin is irregular and hemorrhagic. Also present in the specimen container is a portion of bone, consistent with portion of femoral neck, measuring 3.5 x 3 x 1.2 cm. Also present in the container are detached pieces of bone measuring in aggregate 3.5 x 3 x 0.5 cm. No soft tissue is identified. Labor Representative sections are submitted in three cassettes after decalcification as follows: 1 - detached pieces of bone, 2 - piece of bone consistent with femoral neck, 3 - femoral head. / CRISTEL:laurie 01/22/21 TC:5 [facility]: [id number], [id number]
[2021-01-21] MEDS: 0.9% Normal Saline 1,000 ML 100 ML IV (13:15)
[2021-01-21] MEDS: Cefazolin 2 GM in 0.9% Normal Saline 100 ML IV (13:18)
--- NOTE | 2021-01-21 13:55 | RAD_ITS ---
STUDY: X-RAY - PELVIS AND RIGHT HIP REASON FOR EXAM: Female, 75 years old. PAIN -- *HEMIARTHROPLASTY VS TOT. HIP ANTERIOR* TECHNIQUE: 1 views of the pelvis and hip. COMPARISON: None. FINDINGS: Intraoperative imaging provided for right total hip replacement. There is good alignment. RAD/Hip 1 view with Pelvis IMPRESSION: Intraoperative imaging provided for right total hip replacement. There is good alignment. Electronically Signed: Gonzalo Jordan MD at 15:22 EDT , Service support ,
--- NOTE | 2021-01-21 14:45 | PCM.OPRPT ---
Report of Operation Date of Procedure: 01/21/21 Pre-Operative Diagnosis: Right hip primary osteoarthritis Post-Operative Diagnosis: Right hip primary osteoarthritis Surgery/Procedure Performed:: Right minimally invasive direct anterior total hip replacement Description of Surgical Findings:: Stable hip with equal leg length Surgeon: Tyson Lomax correspondence review clerk: Tanner French Type of Anesthesia: Spinal Special Medications: 2 g Ancef, 1 g TXA at incision, 1 g TXA closure, 10 mg Decadron, joint cocktail (5 mg Duramorph, 30 mL of 0.5% Ropivicaine, 1000 units of epinephrine, 30 mg of Toradol) Specimen's removed: Bony cuts, femoral head and fracture site Estimated Blood Loss (mL): 200 Fluids Replaced: 600 ml crystalloid Description of Procedure: Components used: 1. Accolade 2 Providence femoral stem size 3 127? 2. Providence trident 2 acetabular shell size 48 mm 3. Victorino X3 polyethylene d 4. Victorino Biolox delta 36mm, -2.5mm femoral head Brief history operative indications: 75 yo f who failed conservative measures for their hip osteoarthritis. X-rays were consistent with osteoarthritis including joint space narrowing, osteophyte formation and subchondral cysts. Total hip replacement was discussed with the patient with risks and benefits including but not limited to blood loss, DVTs, PEs, neurovascular damage, dislocation, general risks of anesthesia including loss of life. Patient demonstrated an understanding medical clearance is obtained the patient was consented for surgery. Procedure: On the date of procedure the patient's right hip was marked in the preoperative area. Patient was then taken back to the operating room where anesthesia assumed control of the C-spine and airway and administered anesthetic. Patient was transferred to the operating table and placed in the supine position. The hips were placed at the break of the bed and a sacral bump was placed. The right lower extremity was then prepped out in a sterile fashion using chlorhexidine while the surgeon scrubbed. The PA was vital in the positioning of the patient. Upon reentering the room the right lower extremity was draped in the standard orthopedic fashion and the incision was marked. A timeout was called and everyone agreed upon the side, the site, the procedure be performed, antibody given, and patient's identity. At this time incision was made through skin, subcutaneous tissue, and fat down to fascia. The fascia was then incised and the TFL was retracted laterally. A retractor was placed on the lateral border of the femoral neck. Attention was directed to the inferior portion of the approach and all crossing vessels were identified and appropriately coagulated. A retractor was then placed on the medial portion of the femoral neck. The anterior capsule was then cleared of all soft tissue and then H shaped capsulotomy was made. The retractors were then placed inside the capsule. The femoral neck was identified and a cleanup cut was made. At this time a power corkscrew was used to remove the femoral head. Attention was then turned toward the acetabulum where the soft tissues were appropriately retracted and the acetabulum was sequentially reamed to 48 mm. A 48 mm cup was then selected and impacted into place. Acetabular liner was impacted into place and locking mechanism was verified. The position of the acetabular cup was then verified under live fluoroscopy. Attention was then turned to the femur. Soft tissue releases on the medial and lateral femoral neck were appropriately done, the leg was externally rotated and lateralized. A Santoyo retractor was placed medially and proximally to the greater trochanter this allowed appropriate visualization and exposure of the femoral canal. Rongeour was then used to remove excess lateral bone. A canal finder and entry broach were used to open the proximal canal. Once we verified we were down the femoral canal we subsequently broached up to a size 3 femur. The appropriate neck was placed in the previously selected head was trialed with a -2.5 mm neck. Traction was pulled and the hip was reduced with internal rotation. Once it was appropriately reduced and stability was checked. There was minimal shuck, equal leg lengths and appropriate stability with hyperextension and external rotation as well as with 90? flexion and internal rotation. Fluoroscopy was then also used to verify the position of the components and leg lengths using the contralateral side for comparison. The trial components were then dislocated the proximal femur was again exposed and the components were removed from the wound. The final components were verified and opened. The wound was copiously irrigated out with normal saline. The acetabulum was checked for any residual debris. The final components were placed and impacted. Traction and internal rotation were again used to reduce the hip. After adequate reduction the hip remained stable with appropriate leg lengths. The final components were once again checked with live fluoroscopy and were found to be satisfactory. The wound was then copiously irrigated with normal saline once more, and hemostasis was obtained. Closure was then done using #1 Vicryl runner to close the fascia. A 2-0 vicryl interuppted sutures were used to close the subcutaneous skin. A 3-0 Monocryl and Steri-Strips were used for final skin closure. A Silverlon dressing was placed. Patient was awakened by anesthesia and transferred to the [facility]. Patient was then transferred to the PACU for recovery. Postoperative plan: Patient will get 24 hours postop antibiotics. Patient will get in-house physical therapy and will be weight-bear as tolerated. Patient will follow up in office in 2 weeks for a wound check and x-rays. Xarelto 10 mg daily for DVT prophylaxis due to history of limited mobility prior to presentation for 2 weeks followed by aspirin 81 mg twice daily for 2 weeks. During the course of the procedure the physician director of corporate strategy (PE) played a vital role. Their intimate knowledge of my steps in the procedure aided in safe and expedient completion of the procedure. The PE played a vital rolls in positioning particularly in obtaining the appropriate positioning of the sacral bump. The PE was also vital in the retraction of soft tissues during the exposure and especially the femoral work as this is a vital part of the procedure to prevent complications and fractures. The PE was also vital and protecting soft tissues during times of bony cuts and reaming. He also played a vital role in closure with my direct supervision. The PE was also important during reduction and dislocation of the joint and trials intraoperatively. Complications No intraoperative complications Admit VTE Documentation VTE Present on Admission: No VTE Mechan Device Prophylaxis: SCD's and Thigh High ADRY Hose VTE Pharm Prophylaxis ordered?: Yes
--- NOTE | 2021-01-21 15:32 | RAD_ITS ---
STUDY: X-RAY - PELVIS AND RIGHT HIP REASON FOR EXAM: Female, 75 years old. Post Op -- TECHNIQUE: 2 views of the pelvis and hip. COMPARISON: None. FINDINGS: There is normal bowel gas pattern. There is a stimulator device in the soft tissues on the right with leads extending superiorly. There are atherosclerotic vascular calcifications. There is postoperative change in the right lateral soft tissues. Normal bilateral iliac wings, sacroiliac joints and visualized sacrum. Normal bilateral superior and inferior pubic rami. Normal pubic symphysis. Normal bilateral ischial tuberosities. There is right hip replacement. Alignment is near-anatomic.. RAD/Hip Min 2 Views (Portable) IMPRESSION: Right hip replacement. Electronically Signed: Douglas Bauman MD at 16:55 EDT , Service support ,
[2021-01-21 16:40] LABS: Bedside Glucose 250 mg/dL (70-110)
--- NOTE | 2021-01-21 17:21 | PCM.PN.HOSP ---
Subjective Subjective Patient states she is feeling okay other than her right hip pain. Tells me she is going to surgery at about noon. She indicates to me she is living at home but lives alone. I did talk to case management and they states she comes from a nursing facility where she has been since her most recent admission. Objective Data Objective Data Vital Signs: Vital Signs Temp Pulse Resp BP Pulse Ox 98.7 F 86 18 125/66 H 93 01/21/21 16:31 01/21/21 16:45 01/21/21 16:45 01/21/21 16:45 01/21/21 16:45 Oxygen Flow Rate (L/min) 2 Oxygen Delivery Method Nasal Cannula Weight: 86.4 kg Body Mass Index (BMI) 32.7 Intake & Output: Intake and Output for Last 24 Hours 01/19/21 01/20/21 01/21/21 23:59 23:59 23:59 Intake Total 873.75 / 1173.75 630 / 630 Output Total 1950 / 2300 1000 / 1000 Balance -1076.25 / -1126.25 -370 / -370 Lab / Micro Data Result Diagrams: 01/21/21 06:50 01/21/21 06:50 Labs: Laboratory Results - last 24 hr 01/20/21 21:04: POC Glucose 263 H 01/21/21 06:42: POC Glucose 173 H 01/21/21 06:50: WBC 17.5 H, RBC 3.34 L, Hgb 11.6 L, Hct 34.9 L, MCV 104.5 H, MCH 34.7 H, MCHC 33.2, RDW Std Deviation 49.5 H, RDW Coeff of Taran 12.9, Plt Count 247, MPV 11.5, Immature Gran % (Auto) 1.500 H, Neut % (Auto) 81.7 H, Lymph % (Auto) 7.7 L, [place] % (Auto) 7.8, Eos % (Auto) 1.1, Baso % (Auto) 0.2, Absolute Neuts (auto) 14.3 H, Absolute Lymphs (auto) 1.34, Nucleated RBC % 0 01/21/21 06:50: Sodium 133 L, Potassium 3.7, Chloride 98, Carbon Dioxide 28.0, Anion Gap 7, BUN 14, Creatinine 0.58, Estim Creat Clear Calc 40.68, Est GFR (MDRD) Af Amer 131, Est GFR (MDRD) Non-Af 108, BUN/Creatinine Ratio 24.3 H, Glucose 165 H, Calcium 8.4 L 01/21/21 06:50: TSH 2.66 01/21/21 06:50: Hemoglobin A1c 7.7 H 01/21/21 06:50: Blood Type O POSITIVE, Antibody Screen NEGATIVE 01/21/21 10:58: POC Glucose 158 H 01/21/21 15:55: POC Glucose 250 H Radiography Diagnostic Testing: Radiology Impression Chest X-Ray 01/19/21 19:00 IMPRESSION: Mild degree of increased markings at the left lung base suggestive of left basilar atelectasis. Electronically Signed: Gonzalo Jordan MD at 8:46 EDT , Service support , Hip/Pelvis X-Ray 01/21/21 13:55 IMPRESSION: Intraoperative imaging provided for right total hip replacement. There is good alignment. Electronically Signed: Gonzalo Jordan MD at 15:22 EDT , Service support , Hip X-Ray 01/21/21 15:32 IMPRESSION: Right hip replacement. Electronically Signed: Douglas Bauman MD at 16:55 EDT , Service support , Physical Exam Const alert, oriented x3 and no apparent distress Constitutional Narrative: Obese older white female, sitting up in bed, appears comfortable at this time, watching television Exam Limitations: no limitations Resp normal respiratory effort, no retractions, no use of accessory muscles and clear to auscultation bilaterally Auscultation: Negative for crackles, rales, rhonchi or wheezes Cardio regular rate, regular rhythm, S1 normal heart sound, S2 normal heart sound, no murmurs, no rub, no gallops, no clicks and no JVD GI normal to inspection, nondistended, normoactive bowel sounds, soft to palpation, non-tender, non-distended and hepatosplenomegaly Palpation: Negative for tender, guarding or hernia Extremity normal to inspection Extremity Narrative: Bilateral lower extremity 2+ edema-patient reports chronic, right lower extremity is shortened and externally rotated General Extremity: edema Peripheral Pulses: Yes pulses 2+ throughout Skin no rashes or lesions noted Neuro oriented x3 and CN's II-XII intact bilaterally Sensorium / Orientation: awake, alert, oriented to person, oriented to place and oriented to time Psych affect normal Assessment & Plan Assessment/Plan (1) Subcapital fracture of right hip: QUALIFIERS: Encounter type: initial encounter Fracture type: closed Qualified Code(s): S72.011A - Unspecified intracapsular fracture of right femur, initial encounter for closed fracture (2) Debility: PLAN: Right femoral neck fracture -OR today per orthopedic surgery -PT is/OT with weightbearing recommendations in the postoperative period -Continue pain management with current regimen -Bowel regimen -Plan is for return to SNF at discharge Leukocytosis -Suspect reactive -Repeat CBC in a.m. Mild chronic anemia -Hemoglobin is stable from 11-12 -Suspect slight drop with surgery and hemodilution from intraoperative fluids -Repeat CBC in a.m. Mild hyponatremia -Sodium 133 -Appears to be chronic and with an baseline range -Continue to monitor -BMP in a.m. DM-2 -Uncontrolled -Hemoglobin A1c 7.7 -Continue Accu-Cheks -Would expect blood sugars to be elevated in the immediate postoperative period secondary to stress -Carb controlled diet -Hold home oral medications -Continue sliding scale Thrush -Start nystatin oral Hypertension -Continue metoprolol XL 50 mg daily -Continue as needed medication -Hold home Lasix Hypothyroidism -Continue levothyroxine COPD -Continue inhalers Chronic low back pain -Continue Zanaflex -Continue gabapentin -Continue baclofen Obesity -BMI 32.6 -Advised weight loss -Complicates overall medical treatment, prognosis, and outcomes DVT prophylaxis -Xarelto per orthopedic surgery CODE STATUS -Full code Charges/Coding Visit Charges Inpatient E&M: 93638 Subs Hosp L2
[2021-01-21] MEDS: Gabapentin 300 MG Capsule PO (18:24)
[2021-01-21] MEDS: Senna/Docusate Sodium 1 Tablet 2 TABLET PO (21:52)
[2021-01-21] MEDS: Acetaminophen 500 MG Tablet 1000 MG PO (21:53)
[2021-01-21] MEDS: NYSTATIN 500,000 UNIT/5 ML UDC 500000 UNIT PO (21:54)
[2021-01-21] MEDS: Baclofen 10 MG Tablet PO (21:54)
[2021-01-21 22:00] LABS: Bedside Glucose 331 mg/dL (70-110)
[2021-01-21] MEDS: MELATONIN 3 MG TABLET PO (22:00)
[2021-01-21] MEDS: oxyCODONE 5 MG Tablet PO (22:00)
[2021-01-21] MEDS: Cefazolin 1 GM/50 ML BAG IV (22:00)
[2021-01-22] VITALS (10 sets, daily range): BP systolic 118–161; BP diastolic 59–95; PULSE 68–91; RESP 16–21; TEMP 36.4–37.1; O2SAT 94–98
[2021-01-22] MEDS: Cefazolin 1 GM/50 ML BAG IV (03:49)
[2021-01-22] MEDS: Levothyroxine 125 MCG Tablet PO (05:33)
[2021-01-22] MEDS: Rivaroxaban 10 MG Tablet PO (05:33)
[2021-01-22] MEDS: Baclofen 10 MG Tablet PO ×3 (05:34→21:20)
[2021-01-22] MEDS: Acetaminophen 500 MG Tablet 1000 MG PO ×3 (05:34→21:19)
[2021-01-22] MEDS: Nystatin Powder 15gm Bottle 1 APPLIC TOPICAL ×3 (05:35→21:20)
[2021-01-22 05:57] LABS: Absolute Neutrophil Count 14.7 X10^3/uL (2.0-7.7); Basophil# 0.03 X10^3/uL; Basophil% 0.2 % (0-1); Lymphocyte % 4.2 % (19-41); Mean Corp Hgb Conc 32.3 g/dL (32-36); Mean Corpuscular Hgb 34.8 pg (27.0-32.0); Mean Platelet Vol. 11.2 fl (6.2-12.0); Monocyte# 0.97 X10^3/uL; Monocyte% 5.8 % (0-10); NRBC Flagged by Analyzer 0 % (0-5); Neutrophil # 14.71 X10^3/uL (2.7-7.7); Platelet Count 220 K/mm3 (150-450); RBC Distribution Width CV 12.9 % (11.6-14.6); RBC Distribution Width SD 51.7 fl (35.1-43.9); Red Blood Count 2.87 M/mm3 (4.2-5.4); White Blood Count 16.7 K/mm3 (4.4-11.0)
[2021-01-22] MEDS: Insulin Lispro 100 UNIT/ML INSULN.PEN SC ×4 (06:45→21:22)
[2021-01-22 06:46] LABS: Anion Gap 7 (5-15); BUN 22 mg/dL (7-18); BUN/Creat Ratio 23.8 RATIO (10-20); Calcium,Total 7.7 mg/dL (8.5-10.1); Chloride 96 mmol/L (98-107); Creatinine, Serum 0.92 mg/dL (0.55-1.02); EST Glomerular Filtration Rate 63 mL/min (>60); Est Glom Filt Rate - Afr Amer 76 mL/min (>60); Estimated Creatinine Clearance 44.22 ml/min; Glucose 247 mg/dL (74-106); Potassium 4.5 mmol/L (3.5-5.1); Sodium Level 130 mmol/L (136-145)
[2021-01-22 07:00] LABS: Bedside Glucose 239 mg/dL (70-110)
[2021-01-22] MEDS: Budesonide Respules 0.5 MG/2 ML AMPUL.NEB. INHALATION ×2 (07:18→19:16)
[2021-01-22] MEDS: Albuterol 2.5 MG/3 ML VIAL.NEB. INHALATION ×2 (07:18→19:16)
[2021-01-22] MEDS: Potassium Chloride Oral Tablet 20 MEQ PO (08:16)
[2021-01-22] MEDS: Gabapentin 300 MG Capsule PO ×3 (08:16→17:07)
--- NOTE | 2021-01-22 08:22 | CASEMGMT ---
Social Work Note Per remote advisor questions, pt has complete both HCPOA and LW and provided copies to [facility]. SW reviewed chart, both HCPOA and LW are on file. Christina Gonzalez PROVIDER NETWORK MGR, [employer] CLEAN[employer] HAND
[2021-01-22] MEDS: NYSTATIN 500,000 UNIT/5 ML UDC 500000 UNIT PO ×4 (09:22→21:20)
[2021-01-22] MEDS: oxyCODONE 5 MG Tablet PO ×2 (09:23→17:47)
[2021-01-22] MEDS: Polyethylene Glycol 3350 17 GM PACKET PO (09:23)
[2021-01-22] MEDS: Metoprolol(XL)Succ 50 MG Tablet PO (09:23)
[2021-01-22] MEDS: Senna/Docusate Sodium 1 Tablet 2 TABLET PO ×2 (09:24→21:20)
--- NOTE | 2021-01-22 09:39 | CASEMGMT ---
ANITA CAMARA NOTE: Pt screened with [facility] Palliative Care Screening Tool for strata 3, pt did not meet criteria. Mindy PLASENCIAN RN CM
--- NOTE | 2021-01-22 10:15 | CASEMGMT ---
Addendum entered by Christina Gonzalez 01/22/21 10:28: VENICE placed a call to Linnea at [facility] and updated her. Original Note: Social Work Note SW received call from Rhianna with TCU stating [facility] is able to accept pt back. SW reviewed chart. 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 Pt will need Skilled rehabilitation again at discharge and [facility] skilled side is not in network with pt's insurance. SW in to speak with pt. SW introduced self and role at [facility]. Pt is alert and orientated x3. Pt confirms she was at [facility] and then at [facility]. SW spoke with pt about how pt is going to need skilled care again and [facility] skilled is not in network with pt's insurance. Patient was provided a list of SNF providers including quality and resource use data and consistent with the patient?s preferred geographic region, medical needs, and insurance network. Pt states preferred provider is to go to [facility] TCU again for short term rehabilitation. VENICE explained that pre-cert will be needed again. Pt asked how her stuff will get to TCU from [facility]. SW asked pt if her daughter will be able to help and pt states her daughter will be able to assist. VENICE placed a call to Rhianna with TCU and updated her that pt is agreeable to TCU. Rhianna to submit for pre-cert once PT/OT works with pt. Plan: TCU pending pre-cert Christina Gonzalez SUPERVISOR PAIRING AND INSPECTING, CORPORATE HUMAN RESOURCES MANAGER
--- NOTE | 2021-01-22 10:22 | PN.ORTHO_ITS ---
Subjective Subjective The patient was sitting in bed upon examination. Patient denies any chest pain, shortness of breath, dizziness, lightheadedness, nausea or vomiting, or calf pain. Pain is controlled on medications. No adverse overnight events. Patient states her postoperative right hip feels much better today. She has not worked with physical therapy at this time. Patient had ongoing hip pain several weeks prior to the fracture. She was at custodial facility. Per director of social services, plan will be for patient to go back to the transitional care unit once medically stable. From an orthopedic standpoint patient appears to be doing well today. Objective Data Objective Data Vital Signs: Vital Signs Temp Pulse Resp BP Pulse Ox 97.5 F L 80 18 144/61 H 97 01/22/21 09:13 01/22/21 09:23 01/22/21 09:13 01/22/21 09:13 01/22/21 09:13 Oxygen Flow Rate (L/min) 1 Oxygen Delivery Method Nasal Cannula Weight: 86.4 kg Body Mass Index (BMI) 32.7 Intake & Output: Intake and Output for Last 24 Hours 01/20/21 01/21/21 01/22/21 23:59 23:59 23:59 Intake Total 873.75 / 1173.75 1637 / 2037 539.25 / 539.25 Output Total 1950 / 2300 1000 / 1200 500 / 500 Balance -1076.25 / -1126.25 637 / 837 39.25 / 39.25 Lab / Micro Data Result Diagrams: 01/22/21 05:44 01/22/21 05:44 Labs: Laboratory Results - last 24 hr 01/21/21 10:58: POC Glucose 158 H 01/21/21 15:55: POC Glucose 250 H 01/21/21 21:50: POC Glucose 331 H 01/22/21 05:44: WBC 16.7 H, RBC 2.87 L, Hgb 10.0 L, Hct 31.0 L, MCV 108.0 H, MCH 34.8 H, MCHC 32.3, RDW Std Deviation 51.7 H, RDW Coeff of Taran 12.9, Plt Count 220, MPV 11.2, Immature Gran % (Auto) 1.800 H, Neut % (Auto) 88.0 H, Lymph % (Auto) 4.2 L, [place] % (Auto) 5.8, Eos % (Auto) 0.0, Baso % (Auto) 0.2, Absolute Neuts (auto) 14.7 H, Absolute Lymphs (auto) 0.70 L, Nucleated RBC % 0 01/22/21 05:44: Sodium 130 L, Potassium 4.5, Chloride 96 L, Carbon Dioxide 27.0, Anion Gap 7, BUN 22 H, Creatinine 0.92, Estim Creat Clear Calc 44.22, Est GFR (MDRD) Af Amer 76, Est GFR (MDRD) Non-Af 63, BUN/Creatinine Ratio 23.8 H, Glucose 247 H, Calcium 7.7 L 01/22/21 06:43: POC Glucose 239 H Radiography Diagnostic Testing: Radiology Impression Hip/Pelvis X-Ray 01/21/21 13:55 IMPRESSION: Intraoperative imaging provided for right total hip replacement. There is good alignment. Electronically Signed: Gonzalo Jordan MD at 15:22 EDT , Service support , Hip X-Ray 01/21/21 15:32 IMPRESSION: Right hip replacement. Electronically Signed: Douglas Bauman MD at 16:55 EDT , Service support , Physical Exam Narrative Vital signs stable and afebrile. Patient is able to plantarflex and dorsiflex actively. Swelling in bilateral lower legs. There is ecchymosis surrounding the abdomen and right hip. Sensation is intact to light touch to saphenous, sural, superficial and deep peroneal, and tibial distribution. Dressing is clean dry and intact. Negative Homans bilaterally, negative signs and symptoms of DVT. Const alert, oriented x3 and no apparent distress Assessment & Plan Assessment/Plan (1) Subcapital fracture of right hip: QUALIFIERS: Encounter type: initial encounter Fracture type: closed Qualified Code(s): S72.011A - Unspecified intracapsular fracture of right femur, initial encounter for closed fracture PLAN: 1. S/P right direct anterior total hip arthroplasty POD #1 2. Continue Pain Medications: Tylenol and oxycodone 3. DVT Prophylaxis: Xarelto 2 weeks postoperatively followed by an additional 2 weeks of aspirin 81 mg twice daily 4. PT/OT: Weightbearing as tolerated with walker. Patient reports prior to the hip problems she was only utilizing a cane occasionally. 5. H & H: 10.0/31.0, asymptomatic. Acute on chronic anemia 6. Reactive leukocytosis: Currently 16.7, afebrile. Patient did receive Decadron intraoperatively 7. Continue postoperative medical management per medicine 8. Encouraged Incentive Spirometry 9. Disposition: Orthopedically patient is stable. She will require custodial facility and the plan is for patient to go to the transitional care unit once medically stable. Patient will be weightbearing as tolerated with walker. Due to patient's limited mobility she will be placed on Xarelto for 2 weeks postoperatively followed by aspirin 81 mg twice daily for an additional 2 weeks. Continue with Tylenol and oxycodone for pain control. Dressing should remain on for 5 days postoperatively with removal on January 26, 2021. Patient can shower with the dressing but no submerging underwater for 6 weeks postoperatively. No driving for 6 weeks postoperatively. Continue with ice and elevation. Patient will require 2-week follow-up with [facility] for incision check and x-rays of the right hip. This was discussed with director of social services and appointment will be established. Okay for discharge to custodial facility from an orthopedic standpoint once patient is medically stable. Please contact orthopedics with any concerns or questions. Appreciate consult.
[2021-01-22 12:10] LABS: Bedside Glucose 265 mg/dL (70-110)
--- NOTE | 2021-01-22 13:47 | PCM.PN.HOSP ---
Subjective Subjective Patient states she is doing well. Did well with surgery yesterday. Indicates her thrush is better today. Asks if she will be able to get out of bed today. Objective Data Objective Data Vital Signs: Vital Signs Temp Pulse Resp BP Pulse Ox 97.5 F L 87 21 H 144/61 H 97 01/22/21 09:13 01/22/21 13:26 01/22/21 13:26 01/22/21 09:13 01/22/21 09:13 Oxygen Flow Rate (L/min) 2 Oxygen Delivery Method Nasal Cannula Weight: 86.4 kg Body Mass Index (BMI) 32.7 Intake & Output: Intake and Output for Last 24 Hours 01/20/21 01/21/21 01/22/21 23:59 23:59 23:59 Intake Total 873.75 / 1173.75 1637 / 2037 1089.25 / 1089.25 Output Total 1950 / 2300 1000 / 1200 800 / 800 Balance -1076.25 / -1126.25 637 / 837 289.25 / 289.25 Lab / Micro Data Result Diagrams: 01/22/21 05:44 01/22/21 05:44 Labs: Laboratory Results - last 24 hr 01/21/21 15:55: POC Glucose 250 H 01/21/21 21:50: POC Glucose 331 H 01/22/21 05:44: WBC 16.7 H, RBC 2.87 L, Hgb 10.0 L, Hct 31.0 L, MCV 108.0 H, MCH 34.8 H, MCHC 32.3, RDW Std Deviation 51.7 H, RDW Coeff of Taran 12.9, Plt Count 220, MPV 11.2, Immature Gran % (Auto) 1.800 H, Neut % (Auto) 88.0 H, Lymph % (Auto) 4.2 L, [place] % (Auto) 5.8, Eos % (Auto) 0.0, Baso % (Auto) 0.2, Absolute Neuts (auto) 14.7 H, Absolute Lymphs (auto) 0.70 L, Nucleated RBC % 0 01/22/21 05:44: Sodium 130 L, Potassium 4.5, Chloride 96 L, Carbon Dioxide 27.0, Anion Gap 7, BUN 22 H, Creatinine 0.92, Estim Creat Clear Calc 44.22, Est GFR (MDRD) Af Amer 76, Est GFR (MDRD) Non-Af 63, BUN/Creatinine Ratio 23.8 H, Glucose 247 H, Calcium 7.7 L 01/22/21 06:43: POC Glucose 239 H 01/22/21 11:35: POC Glucose 265 H Radiography Diagnostic Testing: Radiology Impression Hip/Pelvis X-Ray 01/21/21 13:55 IMPRESSION: Intraoperative imaging provided for right total hip replacement. There is good alignment. Electronically Signed: Gonzalo Jordan MD at 15:22 EDT , Service support , Hip X-Ray 01/21/21 15:32 IMPRESSION: Right hip replacement. Electronically Signed: Douglas Bauman MD at 16:55 EDT , Service support , Physical Exam Const alert, oriented x3 and no apparent distress Constitutional Narrative: Elderly white female sitting up in bed, appears comfortable, nursing at bedside, nontoxic HEENT head/scalp atraumatic and moist oral mucous membranes HEENT Narrative: Thrush improved Head and Scalp: normocephalic Resp normal respiratory effort, no retractions, no use of accessory muscles and clear to auscultation bilaterally Cardio regular rate, regular rhythm, S1 normal heart sound, S2 normal heart sound, no murmurs, no rub, no gallops, no clicks and no JVD GI normal to inspection, nondistended, normoactive bowel sounds, soft to palpation, non-tender, non-distended and hepatosplenomegaly Extremity normal to inspection Extremity Narrative: Trace bilateral lower extremity edema, no cyanosis or clubbing General Extremity: edema Peripheral Pulses: Yes pulses 2+ throughout Neuro oriented x3 Sensorium / Orientation: awake and alert Assessment & Plan Assessment/Plan (1) Subcapital fracture of right hip: QUALIFIERS: Encounter type: initial encounter Fracture type: closed Qualified Code(s): S72.011A - Unspecified intracapsular fracture of right femur, initial encounter for closed fracture (2) Benign hypertension: (3) HLD (hyperlipidemia): (4) Hypothyroidism: PLAN: Right femoral neck fracture status post right minimally invasive anterior total hip replacement -Postop day 1 -Weightbearing as tolerated -Apixaban for 4 weeks followed by aspirin 81 mg for DVT prophylaxis -Okay for dressing removal on 01/26/2021 -No submerging surgical wound for 6 weeks -We will need 2-week follow-up with was to orthopedics -Continue pain management with current regimen -Bowel regimen -Plan is for return to SNF at discharge probably tomorrow Leukocytosis -Suspect reactive -Improved today -Repeat CBC in a.m. Mild chronic anemia -Hemoglobin is stable from 11-12 -Slight drop in hemoglobin to 10 with intraoperative fluids and surgical blood loss -Repeat CBC in a.m. Mild hyponatremia -Sodium 130 -Appears to be chronic -Slightly lower with hydration in the OR -Continue to monitor -BMP in a.m. DM-2 -Uncontrolled -Blood sugars are elevated postoperatively but today but were better controlled yesterday -Continue to trend with no changes at this time -Hemoglobin A1c 7.7 -Continue Accu-Cheks -Would expect blood sugars to be elevated in the immediate postoperative period secondary to stress -Carb controlled diet -Hold home oral medications -Continue sliding scale Thrush -Continue nystatin oral Hypertension -Continue metoprolol XL 50 mg daily -Continue as needed medication -Continue to hold home Lasix Hypothyroidism -Continue levothyroxine COPD -Continue inhalers Chronic low back pain -Continue Zanaflex -Continue gabapentin -Continue baclofen Obesity -BMI 32.6 -Advised weight loss -Complicates overall medical treatment, prognosis, and outcomes DVT prophylaxis -Elijah per orthopedic surgery CODE STATUS -Full code Charges/Coding Visit Charges Inpatient E&M: 48380 Subs Hosp L2
[2021-01-22 17:40] LABS: Bedside Glucose 200 mg/dL (70-110)
[2021-01-22 21:31] LABS: Bedside Glucose 283 mg/dL (70-110)
[2021-01-23] VITALS (7 sets, daily range): BP systolic 134–156; BP diastolic 60–75; PULSE 69–95; RESP 16–18; TEMP 36.4–36.7; O2SAT 95–98
[2021-01-23] MEDS: Acetaminophen 500 MG Tablet 1000 MG PO ×2 (06:41→13:22)
[2021-01-23] MEDS: Levothyroxine 125 MCG Tablet PO (06:41)
[2021-01-23] MEDS: Rivaroxaban 10 MG Tablet PO (06:41)
[2021-01-23] MEDS: Baclofen 10 MG Tablet PO ×2 (06:41→13:22)
[2021-01-23] MEDS: Insulin Lispro 100 UNIT/ML INSULN.PEN SC ×2 (06:46→11:14)
[2021-01-23 06:56] LABS: Bedside Glucose 200 mg/dL (70-110)
[2021-01-23] MEDS: Budesonide Respules 0.5 MG/2 ML AMPUL.NEB. INHALATION (07:01)
[2021-01-23] MEDS: Albuterol 2.5 MG/3 ML VIAL.NEB. INHALATION ×2 (07:01→12:53)
[2021-01-23 07:13] LABS: Absolute Lymphocyte Count 1.58 X10^3/uL (0.83-4.51); Absolute Neutrophil Count 12.1 X10^3/uL (2.0-7.7); Basophil# 0.03 X10^3/uL; Basophil% 0.2 % (0-1); Eosinophil# 0.07 X10^3/uL; Eosinophils% 0.5 % (0-5); Hematocrit 30.9 % (37-47); Lymphocyte # 1.58 X10^3/ul (0.83-4.51); Lymphocyte % 10.3 % (19-41); Mean Corp Hgb Conc 32.4 g/dL (32-36); Mean Corpuscular Hgb 34.2 pg (27.0-32.0); Mean Corpuscular Volume 105.8 fL (81-99); Mean Platelet Vol. 11.4 fl (6.2-12.0); Monocyte# 1.17 X10^3/uL; Monocyte% 7.7 % (0-10); NRBC Flagged by Analyzer 0 % (0-5); Neutrophil % 79.1 % (47-70); Platelet Count 234 K/mm3 (150-450); RBC Distribution Width CV 12.8 % (11.6-14.6); RBC Distribution Width SD 49.5 fl (35.1-43.9); Red Blood Count 2.92 M/mm3 (4.2-5.4); White Blood Count 15.3 K/mm3 (4.4-11.0)
[2021-01-23 07:32] LABS: Anion Gap 6 (5-15); BUN 21 mg/dL (7-18); BUN/Creat Ratio 26.2 RATIO (10-20); Calcium,Total 7.9 mg/dL (8.5-10.1); Chloride 100 mmol/L (98-107); EST Glomerular Filtration Rate 74 mL/min (>60); Est Glom Filt Rate - Afr Amer 89 mL/min (>60); Estimated Creatinine Clearance 50.85 ml/min; Glucose 219 mg/dL (74-106); Potassium 4.5 mmol/L (3.5-5.1); Sodium Level 133 mmol/L (136-145)
[2021-01-23] MEDS: Gabapentin 300 MG Capsule PO ×2 (07:51→11:15)
[2021-01-23] MEDS: Potassium Chloride Oral Tablet 20 MEQ PO (07:51)
[2021-01-23] MEDS: Polyethylene Glycol 3350 17 GM PACKET PO (09:28)
[2021-01-23] MEDS: Nystatin Powder 15gm Bottle 1 APPLIC TOPICAL (09:28)
[2021-01-23] MEDS: NYSTATIN 500,000 UNIT/5 ML UDC 500000 UNIT PO ×2 (09:29→13:22)
[2021-01-23] MEDS: Senna/Docusate Sodium 1 Tablet 2 TABLET PO (09:29)
[2021-01-23] MEDS: Metoprolol(XL)Succ 50 MG Tablet PO (09:29)
[2021-01-23] MEDS: oxyCODONE 5 MG Tablet PO ×2 (09:32→15:32)
--- NOTE | 2021-01-23 10:11 | CASEMGMT ---
Social Work Note VENICE received message from Rhianna with TCU stating pre-cert has been obtained, pt can discharge to TCU today. VENICE updated physician. SW in to speak with pt. SW updated pt that pre-cert was obtained for TCU, pt to discharge to TCU today. Pt states understanding, states she is able to call her daughter to update her. Plan: TCU today Christina Gonzalez REGULATORY COMPLIANCE SPECIALIST, TRAFFIC SIGNAL SUPERVISOR MAINTENANCE
[2021-01-23 11:21] LABS: Bedside Glucose 322 mg/dL (70-110)
--- NOTE | 2021-01-23 13:44 | DS.PCM_ITS ---
Providers Date of Admission: 01/19/21 Primary Care Physician: Dr. Jaime Culver MD Consultations 01/19/21 18:49 Consult: Orthopedics Routine Consulting Provider: Ang Russo Reason for Consult: HIP FRACTURE EMERGENT Consult: No MD Notified: Yes Date Notified: 01/19/21 Time Notified: 18:33 Method of Notification: BY ED Reason For Visit: HIP FRACTURE Diagnosis Discharge Diagnosis (1) Subcapital fracture of right hip: Status: Acute Code(s): S72.011A - Unspecified intracapsular fracture of right femur, initial encounter for closed fracture Qualifiers: Encounter type: initial encounter Fracture type: closed Qualified Code(s): S72.011A - Unspecified intracapsular fracture of right femur, initial encounter for closed fracture Medications at Discharge Home Medications metoprolol succinate 50 mg PO DAILY 05/19/20 albuterol sulfate 1 - 2 puff INHALATION Q6H PRN PRN 06/02/20 levothyroxine 125 mcg tablet 125 mcg PO DAILY tab 06/09/20 fluticasone furoate-vilanterol 1 ea IH DAILY 06/17/20 Alive Women's 50 Plus 1 tab PO DAILY 12/27/20 ascorbic acid (vitamin C) 1 g PO DAILY 12/27/20 metformin 500 mg PO DAILY 12/27/20 furosemide [Lasix] 40 mg PO DAILY 12/28/20 insulin lispro [Humalog KwikPen Insulin] See Protocol SUBCUT ACHS 12/29/20 tizanidine 4 mg PO Q8H PRN PRN #0 tab 12/29/20 acetaminophen 1,000 mg PO Q6H PRN PRN #0 tab 01/05/21 gabapentin 300 mg PO TIDCM 30 Days #90 cap 01/05/21 baclofen 10 mg PO TID 01/19/21 oxycodone-acetaminophen 1 tab PO TID PRN PRN 01/19/21 potassium chloride 20 meq PO DAILY 01/19/21 sennosides-docusate sodium [Senna Plus] 1 tab PO DAILY PRN PRN 01/19/21 nystatin [Nyamyc] 1 applic TOPICAL BID #0 g 01/23/21 oxycodone 5 mg PO Q4H PRN PRN 7 Days #30 tab 01/23/21 polyethylene glycol 3350 17 g PO DAILY #0 ea 01/23/21 rivaroxaban [Xarelto] 10 mg PO DAILY@0600 #0 tab 01/23/21 Hospital Course Operations total hip replacement Procedures None Summary of Care Provided Minutes Spent on Discharge: 39 Hospital Course: Mrs. Strickland is a 75-year-old white female who presented to the emergency department from an [facility] with right hip pain. Her symptoms started approximately 3 weeks prior to admission. She had evidently undergone a work-up without any identifiable cause at that time. Her symptoms started while she was walking. She has undergone evaluation from spine surgery as a result of not being able to bear weight. A CT of her right hip was performed and showed an acute subcapital fracture of the right femoral neck with mild varus angulation. At baseline she was able to ambulate normally in the community. A total hip arthroplasty was recommended based on her functional status at baseline and the patient was taken to the OR on 01/21/2021 by orthopedic surgery. She tolerated the procedure well. Of note she has had a persistently high white count during her hospitalization. No identifiable infection has been noted and she did receive intraoperative Decadron. Orthopedic surgery would like her to be on Xarelto for 2 weeks in the postoperative period followed by 2 weeks of aspirin twice daily. She is able to be weightbearing as tolerated with a walker. We will continue Tylenol and oxycodone for pain. She remains on a bowel regimen. Her dressing can be removed on January 26, 2021. She may shower with the dressing but not submerge the surgical incision for 6 weeks. She may not drive for 6 weeks. She will need a 2-week follow-up with [facility] and this has been addressed with case management to establish an appointment. She did very well in the postoperative period and is stable for discharge to the TCU for continued rehab with the intent to discharge home when she is able. We did not address her increased blood sugars as she did receive Decadron in the OR but titration of her diabetic medications may be required. Discharge diagnoses: Right femoral intracapsular fracture status post total hip arthroplasty Leukocytosis Chronic anemia Chronic hyponatremia DM-2 Thrush Hypertension Hypothyroidism COPD Chronic low back pain Obesity Physical Exam Narrative Patient reports she is feeling well. Happy she is able to go to TCU. Const alert, oriented x3 and no apparent distress Constitutional Narrative: Elderly white female sitting up in bed, appears comfortable, nontoxic, denies pain General Appearance: cooperative, comfortable, well kempt and well developed Exam Limitations: no limitations HEENT normocephalic, head/scalp atraumatic and moist oral mucous membranes Eyes PERRL, EOMs intact bilaterally and conjunctivae normal Neck supple and no JVD Neck Narrative: Trachea midline Resp normal respiratory effort, no retractions, no use of accessory muscles and clear to auscultation bilaterally Auscultation: Negative for crackles, rales, rhonchi or wheezes Cardio regular rate, regular rhythm, S1 normal heart sound, S2 normal heart sound, no murmurs, no rub, no gallops, no clicks and no JVD GI normal to inspection, nondistended, normoactive bowel sounds, soft to palpation, non-tender, non-distended and hepatosplenomegaly Palpation: Negative for tender, guarding or hernia Extremity normal to inspection Extremity Narrative: Trace bilateral lower extremity edema, no cyanosis or clubbing, polar ice on right hip, excellent cap refill General Extremity: edema Skin no rashes or lesions noted Neuro oriented x3 and CN's II-XII intact bilaterally Sensorium / Orientation: awake, alert, oriented to person, oriented to place and oriented to time Psych affect normal Psych Narrative: Extremely pleasant Weight / BMI Weight Weight: 86.4 kg Body Mass Index (BMI) 32.7 ABG / Lab / Microbiology Data Result Diagrams: 01/23/21 06:14 01/23/21 06:14 Laboratory: Laboratory Results - last 24 hr 01/22/21 17:05: POC Glucose 200 H 01/22/21 21:21: POC Glucose 283 H 01/23/21 06:14: WBC 15.3 H, RBC 2.92 L, Hgb 10.0 L, Hct 30.9 L, MCV 105.8 H, MCH 34.2 H, MCHC 32.4, RDW Std Deviation 49.5 H, RDW Coeff of Taran 12.8, Plt Count 234, MPV 11.4, Immature Gran % (Auto) 2.200 H, Neut % (Auto) 79.1 H, Lymph % (Auto) 10.3 L, [place] % (Auto) 7.7, Eos % (Auto) 0.5, Baso % (Auto) 0.2, Absolute Neuts (auto) 12.1 H, Absolute Lymphs (auto) 1.58, Nucleated RBC % 0 01/23/21 06:14: Sodium 133 L, Potassium 4.5, Chloride 100, Carbon Dioxide 27.0, Anion Gap 6, BUN 21 H, Creatinine 0.80, Estim Creat Clear Calc 50.85, Est GFR (MDRD) Af Amer 89, Est GFR (MDRD) Non-Af 74, BUN/Creatinine Ratio 26.2 H, Glucose 219 H, Calcium 7.9 L 01/23/21 06:46: POC Glucose 200 H 01/23/21 11:10: POC Glucose 322 H Microbiology: Microbiology 01/23/21 10:25 Mucosa - Nose SARS-CoV-2 Antigen (Rapid) - Final D/C Instructions Discharge Diet: Low fat / Low cholesterol and 1800 Calorie Control Diet Discharge Activity: May Not Drive and May Shower Weight Bearing Status: Weight bearing as tolerated Keep extremity elevated above heart level: Operative Extremity Meaningful Use Info Meaningful Use Diagnoses (Choose all that apply): None applicable Discharge Plan Admission Admit Date/Time: 01/19/21 17:12 Primary Reason for Your Visit: Right hip fracture Attending Provider: Sallie Lebron Primary Care Provider: Jaime Culver Chi Consulting Providers: Ang Russo Instructions Additional Instructions / Restrictions: Mepilex dressing should remain on for 5 days postoperatively. Okay to shower and get wet. No submerging underwater for 6 weeks postoperatively. Once Mepilex dressing has been removed please utilize gauze pad or washcloth tucking under the skin of the abdomen and incision. Please do not use tape over the hip. Continue physical therapy for strengthening and range of motion. No dr shin for 6 weeks postoperatively. Patient will follow-up in 2 weeks with orthopedics for x-rays on arrival. Discharge Orders/Prescriptions Prescriptions: New polyethylene glycol 3350 17 gram Powder In Packet 17 g PO DAILY Qty: 0 RF: 0 nystatin [Nyamyc] 100,000 unit/gram Powder 1 applic topical BID Qty: 0 RF: 0 oxycodone 5 mg Tablet 5 mg PO Q4H PRN PRN (Reason: Pain Score 4-5) 7 Days Qty: 30 RF: 0 Xarelto 10 mg Tablet 10 mg PO DAILY@0600 Qty: 0 RF: 0 Continued levothyroxine 125 mcg tablet 125 mcg PO DAILY RF: 0 metoprolol succinate 50 MG tablet extended release 24 hr 50 mg PO DAILY RF: 0 albuterol sulfate 1 PUFF inhaler 1 - 2 puff INHALATION Q6H PRN PRN (Reason: Sob &/Or Wheezing) RF: 0 fluticasone furoate-vilanterol 1 EACH blister with device 1 ea IH DAILY RF: 0 ascorbic acid (vitamin C) 1,000 mg Tablet,Chewable 1 g PO DAILY RF: 0 Alive Women's 50 Plus 120 mcg-150 mcg -37.5 mg Tablet,Chewable 1 tab PO DAILY RF: 0 metformin 500 mg Tablet Extended Release 24 Hr 500 mg PO DAILY RF: 0 furosemide [Lasix] 40 mg Tablet 40 mg PO DAILY RF: 0 tizanidine 2 mg Tablet 4 mg PO Q8H PRN PRN (Reason: Muscle Spasm) Qty: 0 RF: 0 insulin lispro [Humalog KwikPen Insulin] 100 unit/mL insulin pen See Protocol unit subcut ACHS RF: 0 acetaminophen 500 mg Tablet 1,000 mg PO Q6H PRN PRN (Reason: Pain Score 1-3) Qty: 0 RF: 0 gabapentin 300 mg capsule 300 mg PO TIDCM 30 Days Qty: 90 RF: 0 sennosides-docusate sodium [Senna Plus] 8.6-50 mg tablet 1 tab PO DAILY PRN PRN (Reason: Constipation) RF: 0 oxycodone-acetaminophen 5-325 mg tablet 1 tab PO TID PRN PRN (Reason: Pain) RF: 0 potassium chloride 20 mEq Tablet,Er Particles/Crystals 20 meq PO DAILY RF: 0 baclofen 10 mg tablet 10 mg PO TID RF: 0 Referrals / Follow Up: Tyson Lomax MD [STAFF PHYSICIAN] - Within 2 Weeks (Follow-up right hip fracture) Jaime Culver Chi, MD [Primary Care Provider] - See Referral Note (Dr. Culver will see you at TCU) Disposition Disposition (needs filled in before D/C Order can be placed): Detention Facility Charges/Coding Visit Charges Inpatient E&M: 61457 SNF Disch >30 Min
--- NOTE | 2021-01-23 14:03 | TREXTCAR_ITS ---
Diet 01/21/21 18:58 Diet: Consistent Carb - Calorie Controlled Is pt able to select menu?: Yes Diet Comments: PLEASE SEND 120ML GLUCERNA W/EACH MEAL How many daily calories?: 1800 calorie Routine Orders/Code Status Suppository Frequency: Daily PRN O2 Frequency: PRN Keep PO Greater than or Equal to (%): 92 Routine Lab Work: CBC and BMP Code Status: Full Code Wound(s) rt elbow: Wound Type: Skin Tear RIGHT HIP: Wound Type: Surgical Incision Therapies Weight Bearing: Weight bearing as tolerated Extremity Affected:: Right Lower Physical Therapy: Eval and Treat Occupational Therapy: Eval and Treat Problem/Diagnosis (1) Subcapital fracture of right hip: Status: Acute Allergies/Procedures Done in Hospital Allergies clindamycin Allergy (Mild, Verified 01/19/21 13:54) rash codeine phosphate [From Tylenol-Codeine #3] Adverse Reaction (Severe, Verified 01/19/21 13:54) Nausea Procedures: None Type of Care/Length of Stay Estimated LOS: Convalescent Care Less Than 30 days Type of Care Needed: Skilled Rehab Potential: Good Prognosis: Good Additional Orders/Day of Discharge Day of Discharge: 01/23/21 Dietary and Speech Recommendations Dietitian Recommendations/Changes: Suggest advance diet post-op to 1800 calorie; carbohydrate-controlled; cardiac. Diet education as pt willing and as indicated prior to d/c. ONS only if PO fails at meals, will defer for now. Discharge Plan Admission Admit Date/Time: 01/19/21 17:12 Primary Reason for Your Visit: Right hip fracture Attending Provider: Sallie Lebron Primary Care Provider: Jaime Culver Chi Consulting Providers: Ang Russo Instructions Additional Instructions / Restrictions: Mepilex dressing should remain on for 5 days postoperatively. Okay to shower and get wet. No submerging underwater for 6 weeks postoperatively. Once Mepilex dressing has been removed please utilize gauze pad or washcloth tucking under the skin of the abdomen and incision. Please do not use tape over the hip. Continue physical therapy for strengthening and range of motion. No driving for 6 weeks postoperatively. Patient will follow-up in 2 weeks with orthopedics for x-rays on arrival. Discharge Orders/Prescriptions Prescriptions: New polyethylene glycol 3350 17 gram Powder In Packet 17 g PO DAILY Qty: 0 RF: 0 nystatin [Nyamyc] 100,000 unit/gram Powder 1 applic topical BID Qty: 0 RF: 0 oxycodone 5 mg Tablet 5 mg PO Q4H PRN PRN (Reason: Pain Score 4-5) 7 Days Qty: 30 RF: 0 Xarelto 10 mg Tablet 10 mg PO DAILY@0600 Qty: 0 RF: 0 Continued levothyroxine 125 mcg tablet 125 mcg PO DAILY RF: 0 metoprolol succinate 50 MG tablet extended release 24 hr 50 mg PO DAILY RF: 0 albuterol sulfate 1 PUFF inhaler 1 - 2 puff INHALATION Q6H PRN PRN (Reason: Sob &/Or Wheezing) RF: 0 fluticasone furoate-vilanterol 1 EACH blister with device 1 ea IH DAILY RF: 0 ascorbic acid (vitamin C) 1,000 mg Tablet,Chewable 1 g PO DAILY RF: 0 Alive Women's 50 Plus 120 mcg-150 mcg -37.5 mg Tablet,Chewable 1 tab PO DAILY RF: 0 metformin 500 mg Tablet Extended Release 24 Hr 500 mg PO DAILY RF: 0 furosemide [Lasix] 40 mg Tablet 40 mg PO DAILY RF: 0 tizanidine 2 mg Tablet 4 mg PO Q8H PRN PRN (Reason: Muscle Spasm) Qty: 0 RF: 0 insulin lispro [Humalog KwikPen Insulin] 100 unit/mL insulin pen See Protocol unit subcut ACHS RF: 0 acetaminophen 500 mg Tablet 1,000 mg PO Q6H PRN PRN (Reason: Pain Score 1-3) Qty: 0 RF: 0 gabapentin 300 mg capsule 300 mg PO TIDCM 30 Days Qty: 90 RF: 0 sennosides-docusate sodium [Senna Plus] 8.6-50 mg tablet 1 tab PO DAILY PRN PRN (Reason: Constipation) RF: 0 oxycodone-acetaminophen 5-325 mg tablet 1 tab PO TID PRN PRN (Reason: Pain) RF: 0 potassium chloride 20 mEq Tablet,Er Particles/Crystals 20 meq PO DAILY RF: 0 baclofen 10 mg tablet 10 mg PO TID RF: 0 Referrals / Follow Up: Tyson Lomax MD [STAFF PHYSICIAN] - Within 2 Weeks (Follow-up right hip fracture) Jaime Culver Chi, MD [Primary Care Provider] - See Referral Note (Dr. Culver will see you at TCU) Disposition Disposition (needs filled in before D/C Order can be placed): Group Home Facility
== END 2021-01-23 17:15 | disposition skilled nursing facility (03) | DRG 522 ==
LOC: ED 15:47 → PCU 17:47 → MS3 01-21 17:02
PROVIDERS: Anesthesiology; Specialist; Admitting Provider Internal Medicine; Emergency Provider Emergency Medicine; PCP Family Medicine Geriatric Medicine; Visit Provider Internal Medicine
PROC: 0SRR0JZ Replacement of Right Hip Joint, Femoral Surface with Synthetic Substitute, Open Approach (ICD-10-PCS; CPT 27284; principal; 2021-01-21 12:35)
DX: S72.011A Unspecified intracapsular fracture of right femur, initial encounter for closed fracture (principal); E87.1 Hypo-osmolality and hyponatremia; M16.11 Unilateral primary osteoarthritis, right hip; E11.9 Type 2 diabetes mellitus without complications; I10 Essential (primary) hypertension; E03.9 Hypothyroidism, unspecified; E66.9 Obesity, unspecified; J45.20 Mild intermittent asthma, uncomplicated; Z68.32 Body mass index [BMI] 32.0-32.9, adult; Z66 Do not resuscitate; E78.5 Hyperlipidemia, unspecified; D64.9 Anemia, unspecified; B37.9 Candidiasis, unspecified; J44.9 Chronic obstructive pulmonary disease, unspecified; M54.5 Low back pain; G89.29 Other chronic pain; Z96.649 Presence of unspecified artificial hip joint; D72.829 Elevated white blood cell count, unspecified; G25.81 Restless legs syndrome; I25.2 Old myocardial infarction; Z86.73 Personal history of transient ischemic attack (TIA), and cerebral infarction without residual deficits; Z87.19 Personal history of other diseases of the digestive system; Z90.710 Acquired absence of both cervix and uterus; Z90.49 Acquired absence of other specified parts of digestive tract
CPT/HCPCS: 36415; 71045; 72192; 73501; 73502; 73560; 76000; 80048; 81001; 82962; 83036; 83735; 84443; 85025; 86850; 86900; 86901; 87426; 88305; 88307; 88311; 93005; 94640; 97110; 97162; 97166; 97530; 97535; 99251; 99284; C1776; J7030; J7050; A4216; G0463; J2405

== ENCOUNTER 2021-01-23 17:30 | Inpatient (IN) | payer MEDICARE, SELFPAY ==
[2021-01-21 10:53] VITALS: BMI 32.7
[2021-01-23 17:57] VITALS: BP 148/54; PULSE 90; RESP 18; TEMP 36.3; O2SAT 92
[2021-01-23 19:51] VITALS: PULSE 84; RESP 16; O2SAT 99
--- NOTE | 2021-01-23 20:02 | HP.PCM_ITS ---
HPI - General General Date of Admission: 01/23/21 HPI Narrative 01/19/2021 JERRELL BAUMAN, is a 75 Female who presents to [facility] Emergency Department with lower extremity injury. 01/19/2021 EKG normal sinus rhythm, possible left atrial enlargement, left ventricular hypertrophy, poor R wave progression. Right hip pain, X-ray showed right femur fracture. Unable to bear weight right leg for several weeks. CT right hip showed right hip fracture. 01/19/2021 Admit to Hospital. Prepare for surgery. 01/20/2021 Hold oral hypoglycemics. 01/21/2021 Dr. Lomax performed right minimally invasive direct anterior total hip replacement. 01/22/2021 Did well with surgery, Thrush improved. Weight bearing as tolerated. Eliquis x 4 weeks, followed by aspirin 81MG for DVT prophylaxis. Pain management. Monitor hyponatremia. Hemoglobin 7.7. Nystatin oral for thrush. 01/23/2021 Admit to TCU with debility, here for rehabilitation, strengthening, prior to discharge home alone. [facility] Medical History (Updated 01/23/21 @ 20:[address] Jaime Culver MD) Asthma B12 deficiency Cataract Cataracts, bilateral Chronic back pain Diabetes GERD (gastroesophageal reflux disease) History of colon polyps HTN (hypertension) Hyperlipidemia Kidney disease Muscle tenderness Non-smoker RLS (restless legs syndrome) Home Medications metoprolol succinate 50 mg PO DAILY 05/19/20 [History Last Taken 01/19/21] albuterol sulfate 1 - 2 puff INHALATION Q6H PRN PRN 06/02/20 [History Last Taken 12/26/20] levothyroxine 125 mcg tablet 125 mcg PO DAILY tab 06/09/20 [History Last Taken 01/19/21] fluticasone furoate-vilanterol 1 ea IH DAILY 06/17/20 [History Last Taken 01/19/21] Alive Women's 50 Plus 1 tab PO DAILY 12/27/20 [History Last Taken 01/19/21] ascorbic acid (vitamin C) 1 g PO DAILY 12/27/20 [History Last Taken 01/19/21] metformin 500 mg PO DAILY 12/27/20 [History Last Taken 01/19/21] furosemide [Lasix] 40 mg PO DAILY 12/28/20 [History Last Taken Unknown] insulin lispro [Humalog KwikPen Insulin] See Protocol SUBCUT ACHS 12/29/20 [History Last Taken 01/19/21] tizanidine 4 mg PO Q8H PRN PRN #0 tab 12/29/20 [Rx Last Taken Unknown] acetaminophen 1,000 mg PO Q6H PRN PRN #0 tab 01/05/21 [Rx Last Taken Unknown] gabapentin 300 mg PO TIDCM 30 Days #90 cap 01/05/21 [Rx Last Taken 01/19/21] baclofen 10 mg PO TID 01/19/21 [History Last Taken 01/19/21] oxycodone-acetaminophen 1 tab PO TID PRN PRN 01/19/21 [History Last Taken Unknown] potassium chloride 20 meq PO DAILY 01/19/21 [History Last Taken 01/19/21] sennosides-docusate sodium [Senna Plus] 1 tab PO DAILY PRN PRN 01/19/21 [History Last Taken Unknown] nystatin [Nyamyc] 1 applic TOPICAL BID 01/23/21 [History Last Taken Unknown] oxycodone 5 mg PO Q4H PRN PRN 7 Days #30 tab 01/23/21 [Rx Last Taken Unknown] polyethylene glycol 3350 17 g PO DAILY 01/23/21 [History Last Taken Unknown] rivaroxaban [Xarelto] 10 mg PO DAILY@0600 01/23/21 [History Last Taken Unknown] Allergy/AdvReac Type Severity Reaction Status Date / Time clindamycin Allergy Mild rash Verified 01/19/21 13:54 codeine phosphate AdvReac Severe Nausea Verified 01/19/21 13:54 [From Tylenol-Codeine #3] Family History Mother Heart valve disorder Hypertension Heart disease Father Pneumococcal pneumonia CVA (cerebral vascular accident) Heart disease Myocardial infarction Surgical History (Updated 01/23/21 @ 20:[address] Jaime Culver MD) History of appendectomy History of bilateral carpal tunnel release History of carpal tunnel release History of colonoscopy (~2012) History of hysterectomy History of loop recorder history of pain stimulator History of total right hip replacement Hx of tonsillectomy Social History household members: none housing: apartment number of children: 2 current occupational status: retired current occupational exposures/hazards: No pets and animals: No leisure activities: exercise and volunteer work Smoking Status: Never smoker ROS Constitutional Constitutional: Denies chills, fever(s) or weight gain ENT HEENT: Denies headache(s), nasal congestion or nasal discharge Cardiovascular Cardiovascular: Denies chest pain or palpitations Respiratory/Chest Respiratory/Chest: Denies cough, excessive phlegm production or shortness of breath with exertion Gastrointestinal Gastrointestinal: Denies abdominal pain, nausea or vomiting Genitourinary Genitourinary: Denies dysuria Musculoskeletal Musculoskeletal: Denies joint pain or joint swelling Integumentary Integumentary: Denies rash or wounds Neurologic Neurologic: Denies focal weakness, numbness or tingling Psychiatric Psychiatric: Reports auditory hallucinations; Denies anxiety, depression, homicidal ideation or suicidal ideation Vital Signs Vital Signs Vital Signs: 01/23/21 17:57 Temperature 97.4 F L Temperature Source Temporal Pulse Rate 90 Respiratory Rate 18 Blood Pressure 148/54 H Blood Pressure Mean 85 Blood Pressure Source Monitor Blood Pressure Position Semi-Fowlers Blood Pressure Location Left Arm Pulse Ox 92 Oxygen Delivery Method Room Air Weight Body Mass Index (BMI) 32.7 Physical Exam Const alert and oriented x3 General Appearance: cooperative HEENT normocephalic Eyes PERRL and EOMs intact bilaterally Neck supple, no JVD and no carotid bruits Resp normal respiratory effort, normal air movement and clear to auscultation bilaterally Cardio regular rate and regular rhythm GI normal to inspection, nondistended, normoactive bowel sounds, non-tender and non-distended Extremity normal capillary refill General Extremity: Negative for edema Skin no rashes or lesions noted General Skin Exam: no breakdown Psych affect normal Appearance: appropriate Assessment & Plan Assessment/Plan (1) Debility: (2) Closed right hip fracture: (3) Hyponatremia: (4) Asthma: (5) Vitamin B12 deficiency: (6) Diabetes mellitus: (7) Gastroesophageal reflux disease: (8) Hypertension: (9) Hyperlipidemia: (10) Restless leg syndrome: PLAN: 75 year old female with below past medical history hospitalized for right hip fracture, underwent right total hip replacement 01/21/[address] Lomax, complicated by thrush, admitted to TCU with debility, here for rehabilitation, strengthening, prior to discharge home alone. * Debility - PT/OT. * Pain - Tylenol 1000MG Q6H PRN pain (1-3), Oxycodone 5MG Q4H PRN pain (4-10) * Bowel - Miralax 17GM daily, Senna/colace 2 tablets BID, Dulcolax 10MG daily PRN. * Adult immunization - Administer Prevnar 13, Pneumovax 23, Fluzone, COVID19 vaccine as appropriate. * DVT prophylaxis - Xarelto 10MG daily. * Asthma - Budesonide 0.5MG inhaled Q12H, Albuterol 2.5MG nebulized Q6H, 2.5MG nebulized Q6H PRN. * Muscle spasm - Baclofen 10MG TID. * Edema - Lasix 40MG daily. * Neuropathic pain - Gabapentin 300MG TID. * Hypothyroidism - Levothyroxine 125MCG daily. * Diabetes Mellitus II - Metformin XR 500MG daily. * Hypertension - Metoprolol succinate 50MG daily. * Tinea Corporis - Nystatin powder topical BID. * Hypokalemia - KCL ER 20MEQ daily.
[2021-01-23] MEDS: Baclofen 10 MG Tablet PO (20:41)
[2021-01-23] MEDS: oxyCODONE 5 MG Tablet PO (20:41)
[2021-01-24] MEDS: Acetaminophen 500 MG Tablet 1000 MG PO (03:20)
[2021-01-24] MEDS: oxyCODONE 5 MG Tablet PO ×3 (03:20→21:01)
[2021-01-24 05:06] VITALS: BP 122/64; PULSE 74; RESP 16; TEMP 35.6; O2SAT 96
[2021-01-24] MEDS: Potassium Chloride Oral Tablet 20 MEQ PO (05:09)
[2021-01-24] MEDS: Baclofen 10 MG Tablet PO ×3 (05:10→21:01)
[2021-01-24] MEDS: Furosemide 40 MG Tablet PO (05:10)
[2021-01-24] MEDS: Nystatin Powder 15gm Bottle 1 APPLIC TOPICAL ×2 (05:10→16:53)
[2021-01-24] MEDS: Polyethylene Glycol 3350 17 GM PACKET PO (05:10)
[2021-01-24 05:11] VITALS: BP 122/64; PULSE 74
[2021-01-24] MEDS: Senna/Docusate Sodium 1 Tablet 2 TABLET PO (05:11)
[2021-01-24] MEDS: Levothyroxine 125 MCG Tablet PO (05:11)
[2021-01-24] MEDS: Rivaroxaban 10 MG Tablet PO (05:11)
[2021-01-24] MEDS: Metoprolol(XL)Succ 50 MG Tablet PO (05:11)
[2021-01-24 06:30] VITALS: PULSE 74; RESP 16; O2SAT 98
[2021-01-24] MEDS: Albuterol 2.5 MG/3 ML VIAL.NEB. INHALATION ×2 (06:30→20:32)
[2021-01-24] MEDS: Budesonide Respules 0.5 MG/2 ML AMPUL.NEB. INHALATION ×2 (06:30→20:32)
[2021-01-24 08:09] LABS: Hematocrit 33.1 % (37-47); Hemoglobin 10.7 g/dL (12.0-15.0); Mean Corp Hgb Conc 32.3 g/dL (32-36); Mean Corpuscular Hgb 34.7 pg (27.0-32.0); Mean Corpuscular Volume 107.5 fL (81-99); Mean Platelet Vol. 11.6 fl (6.2-12.0); POSITIVE COUNT YES; POSITIVE MORPHOLOGY YES; Platelet Count 268 K/mm3 (150-450); RBC Distribution Width SD 51.3 fl (35.1-43.9); Red Blood Count 3.08 M/mm3 (4.2-5.4); White Blood Count 13.2 K/mm3 (4.4-11.0)
[2021-01-24 08:13] LABS: Differential Indicated MANUAL DIFF
[2021-01-24 08:33] LABS: Anion Gap 10 (5-15); BUN 15 mg/dL (7-18); Calcium,Total 8.6 mg/dL (8.5-10.1); Chloride 98 mmol/L (98-107); Creatinine, Serum 0.75 mg/dL (0.55-1.02); EST Glomerular Filtration Rate 80 mL/min (>60); Est Glom Filt Rate - Afr Amer 96 mL/min (>60); Glucose 216 mg/dL (74-106); Potassium 4.5 mmol/L (3.5-5.1); Sodium Level 134 mmol/L (136-145)
[2021-01-24 08:39] LABS: Eosinophil 5 % (0-5); Lymphocyte 20 % (19-41); Metamyelocyte 2 % (0-1); Monocyte 7 % (0-10); Myelocyte 2 % (0-0); Neutrophil-Band 2 % (0-5); Neutrophil-Segmented 62 % (47-70); Platelet Estimate ADEQUATE (ADEQ); Red Cell Morphology NORM C+C NORMAL (NORM C&C); Total Cells Counted 100 (MANUAL DIFF)
[2021-01-24 08:40] LABS: Absolute Neutrophil Count 8.4 X10^3/uL (2.0-7.7)
[2021-01-24 08:41] LABS: Absolute Lymphocyte Count 2.64 X10^3/uL (0.83-4.51)
[2021-01-24] MEDS: metFORMIN (XR) 500 MG Tablet PO (08:46)
[2021-01-24] MEDS: Gabapentin 300 MG Capsule PO ×3 (08:46→16:52)
[2021-01-24] MEDS: Tuberculin,Purif.prot.deriv. 50 TU/ML Vial 0.1 ML ID (10:03)
[2021-01-24 14:16] VITALS: BP 166/73; PULSE 80; RESP 20; TEMP 36.3; O2SAT 93
[2021-01-24 16:38] VITALS: BMI 33.5
[2021-01-24 20:32] VITALS: PULSE 55; RESP 18
--- NOTE | 2021-01-24 21:09 | NURSING ---
Pt c/o nausea this evening, states she did not eat much dinner because of it, denies chest pain, n/t to arms/legs, denies jaw pain. States she started a new med for muscle relaxer, side effects reviewed with pt. Encouraged pt to eat crackers and drink gilson rona before taking meds, crackers and gilson rona given before oxy and baclofen given. Note left for Dr. Culver to address, will continue to monitor.
[2021-01-25] VITALS (8 sets, daily range): BP systolic 140–157; BP diastolic 73–85; PULSE 52–94; RESP 16–22; TEMP 35.9–36.8; O2SAT 93–94
[2021-01-25 00:25] LABS: Bedside Glucose 194 mg/dL (70-110)
[2021-01-25] MEDS: Albuterol 2.5 MG/3 ML VIAL.NEB. INHALATION ×4 (03:42→20:15)
[2021-01-25] MEDS: oxyCODONE 5 MG Tablet PO ×2 (04:37→12:09)
[2021-01-25] MEDS: Polyethylene Glycol 3350 17 GM PACKET PO (04:37)
[2021-01-25] MEDS: Levothyroxine 125 MCG Tablet PO (04:38)
[2021-01-25] MEDS: Metoprolol(XL)Succ 50 MG Tablet PO (04:38)
[2021-01-25] MEDS: Rivaroxaban 10 MG Tablet PO (04:38)
[2021-01-25] MEDS: Furosemide 40 MG Tablet PO (04:39)
[2021-01-25] MEDS: Nystatin Powder 15gm Bottle 1 APPLIC TOPICAL ×2 (04:40→17:30)
[2021-01-25 06:36] LABS: Bedside Glucose 188 mg/dL (70-110)
[2021-01-25] MEDS: Gabapentin 300 MG Capsule PO ×3 (07:54→18:16)
[2021-01-25] MEDS: metFORMIN (XR) 500 MG Tablet PO (07:54)
[2021-01-25] MEDS: Baclofen 10 MG Tablet PO ×3 (07:55→18:16)
[2021-01-25] MEDS: Potassium Chloride Oral Tablet 20 MEQ PO (07:55)
[2021-01-25] MEDS: Budesonide Respules 0.5 MG/2 ML AMPUL.NEB. INHALATION ×2 (08:00→20:15)
--- NOTE | 2021-01-25 22:00 | NURSING ---
NICK wraps removed from legs. Patient feels edema is getting worse, appears worse on assessment. She says her legs are sore from the fluid. Updated Dr. Culver, order to change lasix to 40mg BID and BMP on 01/27.
[2021-01-26] VITALS (8 sets, daily range): BP systolic 92–164; BP diastolic 63–68; PULSE 80–94; RESP 16–22; TEMP 35.9–36.7; O2SAT 93–97
[2021-01-26] MEDS: oxyCODONE 5 MG Tablet PO ×3 (02:28→21:04)
[2021-01-26] MEDS: Acetaminophen 500 MG Tablet 1000 MG PO (02:51)
[2021-01-26 06:16] LABS: Bedside Glucose 183 mg/dL (70-110)
[2021-01-26] MEDS: Nystatin Powder 15gm Bottle 1 APPLIC TOPICAL ×2 (06:37→17:10)
[2021-01-26] MEDS: Furosemide 40 MG Tablet PO ×2 (06:37→17:11)
[2021-01-26] MEDS: Senna/Docusate Sodium 1 Tablet 2 TABLET PO (06:37)
[2021-01-26] MEDS: Rivaroxaban 10 MG Tablet PO (06:38)
[2021-01-26] MEDS: Metoprolol(XL)Succ 50 MG Tablet PO (06:39)
[2021-01-26] MEDS: Levothyroxine 125 MCG Tablet PO (06:39)
[2021-01-26] MEDS: Albuterol 2.5 MG/3 ML VIAL.NEB. INHALATION ×3 (06:43→19:15)
[2021-01-26] MEDS: Budesonide Respules 0.5 MG/2 ML AMPUL.NEB. INHALATION ×2 (06:43→19:15)
[2021-01-26] MEDS: Gabapentin 300 MG Capsule PO ×3 (08:22→17:11)
[2021-01-26] MEDS: Baclofen 10 MG Tablet PO ×3 (08:22→17:11)
[2021-01-26] MEDS: metFORMIN (XR) 500 MG Tablet PO (08:23)
[2021-01-26] MEDS: Potassium Chloride Oral Tablet 20 MEQ PO (08:23)
[2021-01-26] MEDS: Menthol/Lanolin/Calamine/Znox 113 GM Tube 1 APPLIC TOPICAL ×3 (09:44→20:37)
--- NOTE | 2021-01-26 11:24 | NURSING ---
ASSISTANT THERAPY AIDE REPORTED NEGATIVE FOR DVT IN LEFT ARM.
--- NOTE | 2021-01-26 12:02 | PHA.CONS_ITS ---
Progress Note - Pharmacy Subjective: TCU Admission Objective: Allergies clindamycin Allergy (Mild, Verified 01/19/21 13:54) rash codeine phosphate [From Tylenol-Codeine #3] Adverse Reaction (Severe, Verified 01/19/21 13:54) Nausea Current Medications Generic Name Dose Route Start Last Admin Trade Name Freq PRN Reason Stop Dose Admin Acetaminophen 1,000 mg 01/23/21 18:05 01/26/21 02:51 Acetaminophen 500 Mg Tablet PO 1,000 mg Q6H PRN PRN Administration Pain Score 1-3 Albuterol Sulfate 2.5 mg 01/23/21 18:14 01/25/21 03:42 Albuterol 2.5 Mg/3 Ml Vial.Neb. INHALATION 2.5 mg Q6H PRN PRN Administration Sob &/Or Wheezing Albuterol Sulfate 2.5 mg 01/23/21 18:30 01/26/21 06:43 Albuterol 2.5 Mg/3 Ml Vial.Neb. INHALATION 2.5 mg Q6HWA.RT DICK Administration Baclofen 10 mg 01/25/21 07:45 01/26/21 11:26 Baclofen 10 Mg Tablet PO 10 mg TIDCM DICK Administration Bisacodyl 10 mg 01/23/21 20:19 Bisacodyl 5 Mg Tablet PO DAILY PRN CONSTIPATION Budesonide 0.5 mg 01/23/21 18:30 01/26/21 06:43 Budesonide Respules 0.5 Mg/2 Ml Ampul.Neb. INHALATION 0.5 mg Q12H.RT DICK Administration Calamine/Phenol 1 applic 01/26/21 08:10 01/26/21 09:44 Menthol/Lanolin/Calamine/Znox 113 Gm Tube TOPICAL 1 applic TID DICK Administration Protocol Furosemide 40 mg 01/26/21 06:00 01/26/21 06:37 Furosemide 40 Mg Tablet PO 40 mg BID DICK Administration Gabapentin 300 mg 01/24/21 07:45 01/26/21 11:26 Gabapentin 300 Mg Capsule PO 300 mg TIDCM DICK Administration Levothyroxine Sodium 125 mcg 01/24/21 06:00 01/26/21 06:39 Levothyroxine 125 Mcg Tablet PO 125 mcg DAILY DICK Administration Metformin HCl 500 mg 01/24/21 08:00 01/26/21 08:23 Metformin (Xr) 500 Mg Tablet PO 500 mg DAILYCM DICK Administration Metoprolol Succinate 50 mg 01/24/21 06:00 01/26/21 06:39 Metoprolol(Xl)Succ 50 Mg Tablet PO 50 mg DAILY DICK Administration Nystatin 1 applic 01/24/21 06:00 01/26/21 06:37 Nystatin Powder 15gm Bottle TOPICAL 1 applic BID DICK Administration Protocol Oxycodone HCl 5 mg 01/23/21 20:20 01/26/21 11:28 Oxycodone 5 Mg Tablet PO 5 mg Q4H PRN PRN Administration Pain Score 4-10 Polyethylene Glycol 17 gm 01/24/21 06:00 01/26/21 06:37 Polyethylene Glycol 3350 17 Gm Packet PO Not Given DAILY [facility] Potassium Chloride 20 meq 01/25/21 08:00 01/26/21 08:23 Potassium Chloride Oral Tablet 20 Meq PO 20 meq DAILYCM DICK Administration Rivaroxaban 10 mg 01/24/21 06:00 01/26/21 06:38 Rivaroxaban 10 Mg Tablet PO 10 mg DAILY@0600 DICK Administration Senna/Docusate Sodium 2 tablet 01/24/21 06:00 01/26/21 06:37 Senna/Docusate Sodium 1 Tablet PO 2 tablet BID DICK Administration Tuberculin PPD 0.1 ml 01/31/21 10:00 Tuberculin,Purif.Prot.Deriv. 50 Tu/Ml Vial ID 01/31/21 10:01 X1 ONE Problem List (Last Reviewed 01/23/21 @ 20:[address] Jaime Culver MD) Restless leg syndrome (Acute) Hyperlipidemia (Acute) Hypertension (Chronic) Gastroesophageal reflux disease (Acute) Diabetes mellitus (Acute) Vitamin B12 deficiency (Acute) Asthma (Acute) Hyponatremia (Acute) Closed right hip fracture (Acute) Debility (Acute) Vital Signs Temp Pulse Resp BP Pulse Ox 96.7 F L 86 20 H 147/63 H 93 01/26/21 05:00 01/26/21 06:43 01/26/21 06:43 01/26/21 05:00 01/26/21 06:43 Oxygen Delivery Method Room Air Weight: 88.5 kg Body Mass Index (BMI) 33.5 Sodium 134 mmol/L (136-145) L 01/24/21 07:44 Potassium 4.5 mmol/L (3.5-5.1) 01/24/21 07:44 Chloride 98 mmol/L (98-107) 01/24/21 07:44 Carbon Dioxide 26.0 mmol/L (21.0-32.0) 01/24/21 07:44 Anion Gap 10 (5-15) 01/24/21 07:44 BUN 15 mg/dL (7-18) 01/24/21 07:44 Creatinine 0.75 mg/dL (0.55-1.02) 01/24/21 07:44 Est GFR (MDRD) Af Amer 96 mL/min (>60) 01/24/21 07:44 Est GFR (MDRD) Non-Af 80 mL/min (>60) 01/24/21 07:44 BUN/Creatinine Ratio 20.0 RATIO (10-20) 01/24/21 07:44 Glucose 216 mg/dL (74-106) H 01/24/21 07:44 Assessment/Plan: 1. Pain: acetaminophen 1000mg PO Q6H PRN pain 1-3/10 and oxycodone 5mg PO Q4H PRN pain 4-10/10. Please continue to monitor for increased pain, PRN usage, constipation and respiratory depression. 2. DVT prophylaxis: rivaroxaban 10mg PO daily. Please continue to monitor for S/S of bleeding/DVT and hemoglobin (last 13.2g/dL). 3. Asthma: budesonide 0.5mg inhalation Q12H.RT and albuterol 2.5mg inhalation Q6HWA.RT and Q6H PRN SOB/wheezing. Please continue to monitor for asthma, PRN usage, and HR. 4. Muscle spasm: baclofen 10mg PO TIDCM. Please continue to monitor for muscle spasms and drowsiness. 5. Neuropathic pain: gabapentin 300mg PO TID. Please continue to monitor for pain and renal function. 6. Hypothyroidism: levothyroxine 125mcg PO daily. Please continue to monitor for S/S of hypo/hyperthyroidism and TSH (last 01/21/21). 7. Diabetes mellitus II: metformin XR 500mg PO DAILYCM. Please continue to monitor renal function, hemoglobin A1c (last 7.7% 01/21/21) and glucose (last 183mg/dL). 8. Hypertension: metoprolol succinate 50mg PO daily. Please continue to monitor HR (last 94) and BP (last 92/67). 9. Hypokalemia: potassium chloride 20mEq PO daily. Please continue to monitor potassium (last 4.2mmol/L). 10. Edema (per nursing note): furosemide 40mg PO BID. Please continue to monitor potassium, renal function and edema. Psychotropic Medications: None Unnecessary Medications: None *Bowel Regimen: Miralax 17gm PO daily, senna/docusate 2T PO BID, and bisacodyl 10mg PO daily PRN constipation. Patient has refused 3/5 doses of senna/docusate. Please consider changing senna/docusate to BID PRN constipation.Thanks. Please continue to monitor for S/S of constipation and PRN usage. * Hypokalemia - KCL ER 20MEQ daily. Date of Note:: 01/26/21
[2021-01-26 13:08] LABS: Pathologist Review Reviewed
[2021-01-27] VITALS (7 sets, daily range): BP systolic 155–157; BP diastolic 57–72; PULSE 82–104; RESP 16–22; TEMP 36.2–36.6; O2SAT 92–97
[2021-01-27] MEDS: oxyCODONE 5 MG Tablet PO ×3 (01:57→20:31)
[2021-01-27] MEDS: Menthol/Lanolin/Calamine/Znox 113 GM Tube 1 APPLIC TOPICAL ×3 (05:56→20:26)
[2021-01-27] MEDS: Nystatin Powder 15gm Bottle 1 APPLIC TOPICAL ×2 (05:56→17:46)
[2021-01-27] MEDS: Levothyroxine 125 MCG Tablet PO (05:57)
[2021-01-27] MEDS: Metoprolol(XL)Succ 50 MG Tablet PO (05:57)
[2021-01-27] MEDS: Furosemide 40 MG Tablet PO ×2 (05:58→17:45)
[2021-01-27] MEDS: Rivaroxaban 10 MG Tablet PO (06:13)
[2021-01-27] MEDS: Budesonide Respules 0.5 MG/2 ML AMPUL.NEB. INHALATION ×2 (06:45→20:14)
[2021-01-27] MEDS: Albuterol 2.5 MG/3 ML VIAL.NEB. INHALATION ×3 (06:45→20:14)
--- NOTE | 2021-01-27 08:00 | RAD_ITS ---
STUDY: X-RAY CHEST REASON FOR EXAM: Female, 75 years old. Bibasilar crackles. TECHNIQUE: PA and lateral views of the chest. COMPARISON: Comparison is made with prior chest radiograph dated 01/19/2021. FINDINGS: There is elevation of the right hemidiaphragm. There is evidence of increased linear markings at the lung bases with areas of confluence worsened left lower lobe suggestive of either underlying atelectasis and/or early infiltrates. There is a 9.4 mm well-defined nodule in the medial right upper lobe. This was not well-seen on prior study. Normal size heart. A loop recorder device is seen overlying the left cardiac border. Normal mediastinum and nasrin. Normal visualized pulmonary arteries. Normal visualized aortic arch and descending thoracic aorta. There are diffuse degenerative changes of the visualized thoracic spine. Electrodes from a TENS unit are seen. Normal visualized ribs, clavicles, and shoulders. There is no demonstrated abnormality of the visualized soft tissue structures of the upper abdomen. RAD/Chest PA and Lateral IMPRESSION: Increased markings at the lung bases worse on the left side suggestive bibasilar atelectasis. 9.4 mm well-defined nodule in the medial right upper lobe. This was not well seen on prior study. Electronically Signed: Gonzalo Jordan MD at 12:43 EDT , Service support ,
[2021-01-27 08:16] LABS: Anion Gap 8 (5-15); BUN 10 mg/dL (7-18); BUN/Creat Ratio 15.5 RATIO (10-20); Calcium,Total 8.3 mg/dL (8.5-10.1); Chloride 95 mmol/L (98-107); Creatinine, Serum 0.65 mg/dL (0.55-1.02); EST Glomerular Filtration Rate 94 mL/min (>60); Est Glom Filt Rate - Afr Amer 114 mL/min (>60); Estimated Creatinine Clearance 40.68 ml/min; Glucose 186 mg/dL (74-106); Potassium 3.8 mmol/L (3.5-5.1); Sodium Level 133 mmol/L (136-145)
[2021-01-27] MEDS: Baclofen 10 MG Tablet PO ×3 (08:25→17:45)
[2021-01-27] MEDS: metFORMIN (XR) 500 MG Tablet PO (08:25)
[2021-01-27] MEDS: Potassium Chloride Oral Tablet 20 MEQ PO (08:25)
[2021-01-27] MEDS: Gabapentin 300 MG Capsule PO ×3 (08:25→17:45)
--- NOTE | 2021-01-27 14:24 | CASEMGMT ---
Social Work Brief interview for mental status (BIMS) and resident mood interview (PHQ-9) completed on this day. Verenice BRANTLEY, MAGDAS
[2021-01-27] MEDS: Senna/Docusate Sodium 1 Tablet 2 TABLET PO (17:45)
[2021-01-28] VITALS (7 sets, daily range): BP systolic 148–175; BP diastolic 52–66; PULSE 83–92; RESP 17–22; TEMP 36.6; O2SAT 93–95
[2021-01-28] MEDS: Menthol/Lanolin/Calamine/Znox 113 GM Tube 1 APPLIC TOPICAL ×3 (05:04→21:14)
[2021-01-28] MEDS: Polyethylene Glycol 3350 17 GM PACKET PO (05:05)
[2021-01-28] MEDS: Metoprolol(XL)Succ 50 MG Tablet PO (05:07)
[2021-01-28] MEDS: Rivaroxaban 10 MG Tablet PO (05:07)
[2021-01-28] MEDS: Baclofen 10 MG Tablet PO ×3 (05:07→17:11)
[2021-01-28] MEDS: Levothyroxine 125 MCG Tablet PO (05:07)
[2021-01-28] MEDS: Gabapentin 300 MG Capsule PO ×3 (05:07→17:11)
[2021-01-28] MEDS: Furosemide 40 MG Tablet PO ×2 (05:07→17:11)
[2021-01-28] MEDS: Nystatin Powder 15gm Bottle 1 APPLIC TOPICAL ×2 (05:08→17:12)
[2021-01-28] MEDS: Senna/Docusate Sodium 1 Tablet 2 TABLET PO (05:08)
[2021-01-28 06:26] LABS: Bedside Glucose 182 mg/dL (70-110)
[2021-01-28] MEDS: metFORMIN (XR) 500 MG Tablet PO (08:16)
[2021-01-28] MEDS: Potassium Chloride Oral Tablet 20 MEQ PO (08:16)
--- NOTE | 2021-01-28 11:00 | CASEMGMT ---
Social Work Plan of care meeting held. Patient present. Patient daughter present via speaker phone. Patient to continue with further care and treatment on the Transitional Care Unit. Patient with insurance update due on 02/03/2021. Patient aware that continued stay approval is not guaranteed. Patient plans to discharge to home at time of discharge. Patient daughter is unable to physically assist patient but is able to assist with transportation. Will continue to follow. Verenice BRANTLEY, FABRICIO-S
--- NOTE | 2021-01-28 11:04 | NURSING ---
Jessica called and precert started for CT of chest without contrast for ICD 10 code R91.8. , they are requesting clinical information be faxed to [phone]
[2021-01-28] MEDS: Albuterol 2.5 MG/3 ML VIAL.NEB. INHALATION ×2 (12:15→19:05)
[2021-01-28] MEDS: oxyCODONE 5 MG Tablet PO ×2 (13:22→21:13)
[2021-01-28] MEDS: Budesonide Respules 0.5 MG/2 ML AMPUL.NEB. INHALATION (19:05)
[2021-01-28] MEDS: guaiFENesin 600 MG Tablet PO (21:14)
[2021-01-28] MEDS: Doxycycline 100 MG CAPSULE PO (21:14)
--- NOTE | 2021-01-28 21:25 | NURSING ---
Patient complaining of increased shortness of breath with exertion, having cough over last few days, says she's having thick green sputum that is difficult to cough up. Crackles heard in lung bases, sats 92% on RA. Updated Dr. Culver, order for mucinex and doxycycline x7 days. Updated patient and updated October, patient's daughter, at patient request.
[2021-01-29] MEDS: oxyCODONE 5 MG Tablet PO ×2 (03:44→22:00)
[2021-01-29 05:00] VITALS: BP 150/78; PULSE 83; RESP 16; TEMP 36.9; O2SAT 93
[2021-01-29 06:31] LABS: Bedside Glucose 173 mg/dL (70-110)
[2021-01-29] MEDS: Menthol/Lanolin/Calamine/Znox 113 GM Tube 1 APPLIC TOPICAL ×3 (06:48→20:51)
[2021-01-29 06:49] VITALS: PULSE 83
[2021-01-29] MEDS: Levothyroxine 125 MCG Tablet PO (06:49)
[2021-01-29] MEDS: Nystatin Powder 15gm Bottle 1 APPLIC TOPICAL ×2 (06:49→17:58)
[2021-01-29] MEDS: Doxycycline 100 MG CAPSULE PO ×2 (06:49→17:57)
[2021-01-29] MEDS: Furosemide 40 MG Tablet PO (06:49)
[2021-01-29] MEDS: Metoprolol(XL)Succ 50 MG Tablet PO (06:49)
[2021-01-29] MEDS: Rivaroxaban 10 MG Tablet PO (06:50)
[2021-01-29] MEDS: guaiFENesin 600 MG Tablet PO ×2 (06:52→17:57)
[2021-01-29] MEDS: metFORMIN (XR) 500 MG Tablet PO (08:16)
[2021-01-29] MEDS: Gabapentin 300 MG Capsule PO ×3 (08:16→17:56)
[2021-01-29] MEDS: Potassium Chloride Oral Tablet 20 MEQ PO (08:17)
[2021-01-29] MEDS: Baclofen 10 MG Tablet PO ×3 (08:17→17:56)
[2021-01-29 10:00] VITALS: PULSE 94; RESP 18
[2021-01-29] MEDS: Acetaminophen 500 MG Tablet 1000 MG PO (12:23)
[2021-01-29 13:15] VITALS: PULSE 95; RESP 18; O2SAT 96
[2021-01-29] MEDS: Budesonide Respules 0.5 MG/2 ML AMPUL.NEB. INHALATION (13:15)
[2021-01-29] MEDS: Albuterol 2.5 MG/3 ML VIAL.NEB. INHALATION ×2 (13:15→19:34)
[2021-01-29] MEDS: Furosemide 40 MG/4 ML Vial IV (15:23)
[2021-01-29 16:36] VITALS: BP 126/60; PULSE 82; RESP 16; TEMP 36.6; O2SAT 92
[2021-01-29 19:34] VITALS: PULSE 87; RESP 18; O2SAT 95
[2021-01-30] VITALS (7 sets, daily range): BP systolic 130–175; BP diastolic 53–62; PULSE 74–88; RESP 16–18; TEMP 36.2; O2SAT 92–96
[2021-01-30 06:26] LABS: Bedside Glucose 162 mg/dL (70-110)
[2021-01-30] MEDS: Doxycycline 100 MG CAPSULE PO ×2 (06:45→17:07)
[2021-01-30] MEDS: Menthol/Lanolin/Calamine/Znox 113 GM Tube 1 APPLIC TOPICAL ×3 (06:45→20:57)
[2021-01-30] MEDS: Furosemide 40 MG/4 ML Vial IV ×2 (06:48→13:46)
[2021-01-30] MEDS: guaiFENesin 600 MG Tablet PO ×2 (06:48→17:07)
[2021-01-30] MEDS: Levothyroxine 125 MCG Tablet PO (06:49)
[2021-01-30] MEDS: Nystatin Powder 15gm Bottle 1 APPLIC TOPICAL ×2 (06:49→17:08)
[2021-01-30] MEDS: Metoprolol(XL)Succ 50 MG Tablet PO (06:49)
[2021-01-30] MEDS: Rivaroxaban 10 MG Tablet PO (06:50)
[2021-01-30] MEDS: Budesonide Respules 0.5 MG/2 ML AMPUL.NEB. INHALATION ×2 (07:25→19:15)
[2021-01-30] MEDS: Albuterol 2.5 MG/3 ML VIAL.NEB. INHALATION ×3 (07:25→19:15)
--- NOTE | 2021-01-30 08:12 | CPS ---
PT PERFORMING PEP THERAPY AND INCENTIVE SPIROMETRY ON OWN
[2021-01-30] MEDS: metFORMIN (XR) 500 MG Tablet PO (08:42)
[2021-01-30] MEDS: Gabapentin 300 MG Capsule PO ×3 (08:42→17:08)
[2021-01-30] MEDS: Potassium Chloride Oral Tablet 20 MEQ PO (08:42)
[2021-01-30] MEDS: Baclofen 10 MG Tablet PO ×3 (08:42→17:08)
--- NOTE | 2021-01-30 11:36 | NURSING ---
justin called to follow-up on pre-cert for CT chest, case #[id number]. approval code [id number]. will fax order to radiology to schedule.
[2021-01-30] MEDS: Acetaminophen 500 MG Tablet 1000 MG PO (12:02)
[2021-01-30] MEDS: 0.9% Saline Lock 10 ML Syringe IV (13:46)
[2021-01-30] MEDS: oxyCODONE 5 MG Tablet PO (21:06)
--- NOTE | 2021-01-30 21:10 | NURSING ---
DRESSING CHANGED TO RIGHT HIP PER ORDER, TOLERATED WELL. NO REDNESS/HEAT/EDEMA/DRAINAGE. STERI-STRIPS INTACT. NO DISTRESS OBSERVED OR REPORTED. CALL LIGHT IN REACH.
[2021-01-31] VITALS (7 sets, daily range): BP systolic 132–145; BP diastolic 61–67; PULSE 74–85; RESP 16–20; TEMP 36.4; O2SAT 93–98
[2021-01-31] MEDS: oxyCODONE 5 MG Tablet PO (04:33)
[2021-01-31] MEDS: Levothyroxine 125 MCG Tablet PO (05:12)
[2021-01-31] MEDS: Doxycycline 100 MG CAPSULE PO ×2 (05:12→17:12)
[2021-01-31] MEDS: Metoprolol(XL)Succ 50 MG Tablet PO (05:12)
[2021-01-31] MEDS: Rivaroxaban 10 MG Tablet PO (05:13)
[2021-01-31] MEDS: guaiFENesin 600 MG Tablet PO ×2 (05:13→17:12)
[2021-01-31] MEDS: Nystatin Powder 15gm Bottle 1 APPLIC TOPICAL ×2 (05:13→17:15)
[2021-01-31] MEDS: Furosemide 40 MG/4 ML Vial IV ×2 (05:14→14:44)
[2021-01-31] MEDS: Menthol/Lanolin/Calamine/Znox 113 GM Tube 1 APPLIC TOPICAL ×3 (05:14→21:29)
[2021-01-31 06:40] LABS: Bedside Glucose 185 mg/dL (70-110)
[2021-01-31] MEDS: Albuterol 2.5 MG/3 ML VIAL.NEB. INHALATION ×3 (07:42→19:16)
[2021-01-31] MEDS: Budesonide Respules 0.5 MG/2 ML AMPUL.NEB. INHALATION ×2 (07:42→19:15)
[2021-01-31] MEDS: Potassium Chloride Oral Tablet 20 MEQ PO ×2 (07:59→17:12)
[2021-01-31] MEDS: metFORMIN (XR) 500 MG Tablet PO (07:59)
[2021-01-31] MEDS: Baclofen 10 MG Tablet PO ×3 (07:59→17:12)
[2021-01-31] MEDS: Gabapentin 300 MG Capsule PO ×3 (07:59→17:13)
[2021-01-31 08:08] LABS: Absolute Lymphocyte Count 1.74 X10^3/uL (0.83-4.51); Absolute Neutrophil Count 7.5 X10^3/uL (2.0-7.7); Basophil# 0.06 X10^3/uL; Basophil% 0.6 % (0-1); Eosinophil# 0.19 X10^3/uL; Eosinophils% 1.8 % (0-5); Hematocrit 34.2 % (37-47); Lymphocyte # 1.74 X10^3/ul (0.83-4.51); Lymphocyte % 16.3 % (19-41); Mean Corp Hgb Conc 32.2 g/dL (32-36); Mean Corpuscular Hgb 34.4 pg (27.0-32.0); Mean Corpuscular Volume 106.9 fL (81-99); Mean Platelet Vol. 10.7 fl (6.2-12.0); Monocyte# 0.96 X10^3/uL; NRBC Flagged by Analyzer 0 % (0-5); Neutrophil # 7.47 X10^3/uL (2.7-7.7); Platelet Count 400 K/mm3 (150-450); RBC Distribution Width CV 13.3 % (11.6-14.6); RBC Distribution Width SD 51.3 fl (35.1-43.9); White Blood Count 10.7 K/mm3 (4.4-11.0)
[2021-01-31 08:33] LABS: Anion Gap 7 (5-15); BUN 9 mg/dL (7-18); BUN/Creat Ratio 14.4 RATIO (10-20); Calcium,Total 8.3 mg/dL (8.5-10.1); Chloride 93 mmol/L (98-107); Creatinine, Serum 0.62 mg/dL (0.55-1.02); EST Glomerular Filtration Rate 98 mL/min (>60); Est Glom Filt Rate - Afr Amer 119 mL/min (>60); Estimated Creatinine Clearance 40.68 ml/min; Glucose 195 mg/dL (74-106); Potassium 3.3 mmol/L (3.5-5.1); Sodium Level 130 mmol/L (136-145)
[2021-01-31 11:36] LABS: Bedside Glucose 166 mg/dL (70-110)
[2021-01-31] MEDS: Acetaminophen 500 MG Tablet 1000 MG PO (11:41)
[2021-01-31] MEDS: Tuberculin,Purif.prot.deriv. 50 TU/ML Vial 0.1 ML ID (11:41)
[2021-01-31] MEDS: 0.9% Saline Lock 10 ML Syringe IV (14:44)
[2021-01-31] MEDS: Cefdinir 300 MG Capsule PO (17:12)
[2021-02-01] VITALS (8 sets, daily range): BP systolic 133–141; BP diastolic 55–61; PULSE 74–87; RESP 14–18; TEMP 36.4; O2SAT 91–97
[2021-02-01] MEDS: oxyCODONE 5 MG Tablet PO ×2 (01:12→20:45)
[2021-02-01] MEDS: Acetaminophen 500 MG Tablet 1000 MG PO ×2 (05:03→18:28)
[2021-02-01] MEDS: Cefdinir 300 MG Capsule PO ×2 (05:04→17:06)
[2021-02-01] MEDS: guaiFENesin 600 MG Tablet PO ×2 (05:04→17:05)
[2021-02-01] MEDS: Doxycycline 100 MG CAPSULE PO ×2 (05:04→17:05)
[2021-02-01] MEDS: Rivaroxaban 10 MG Tablet PO (05:04)
[2021-02-01] MEDS: Metoprolol(XL)Succ 50 MG Tablet PO (05:04)
[2021-02-01] MEDS: Levothyroxine 125 MCG Tablet PO (05:04)
[2021-02-01] MEDS: Menthol/Lanolin/Calamine/Znox 113 GM Tube 1 APPLIC TOPICAL ×3 (05:05→20:46)
[2021-02-01] MEDS: Nystatin Powder 15gm Bottle 1 APPLIC TOPICAL ×2 (05:05→17:06)
[2021-02-01] MEDS: Furosemide 40 MG/4 ML Vial IV ×2 (05:06→13:56)
[2021-02-01 06:31] LABS: Bedside Glucose 143 mg/dL (70-110)
[2021-02-01] MEDS: Albuterol 2.5 MG/3 ML VIAL.NEB. INHALATION ×4 (07:11→18:56)
[2021-02-01] MEDS: Budesonide Respules 0.5 MG/2 ML AMPUL.NEB. INHALATION ×2 (07:11→18:56)
[2021-02-01] MEDS: Potassium Chloride Oral Tablet 20 MEQ PO ×2 (08:12→17:06)
[2021-02-01] MEDS: Baclofen 10 MG Tablet PO ×3 (08:12→17:06)
[2021-02-01] MEDS: Gabapentin 300 MG Capsule PO ×3 (08:12→17:06)
[2021-02-01] MEDS: metFORMIN (XR) 500 MG Tablet PO (08:12)
[2021-02-01] MEDS: 0.9% Saline Lock 10 ML Syringe IV (13:56)
[2021-02-02] MEDS: Menthol/Lanolin/Calamine/Znox 113 GM Tube 1 APPLIC TOPICAL ×3 (05:10→21:34)
[2021-02-02] MEDS: Doxycycline 100 MG CAPSULE PO ×2 (05:10→17:03)
[2021-02-02] MEDS: Cefdinir 300 MG Capsule PO ×2 (05:11→17:03)
[2021-02-02] MEDS: guaiFENesin 600 MG Tablet PO ×2 (05:11→17:03)
[2021-02-02] MEDS: Nystatin Powder 15gm Bottle 1 APPLIC TOPICAL ×2 (05:11→17:04)
[2021-02-02 05:12] VITALS: BP 151/73; PULSE 79
[2021-02-02] MEDS: Levothyroxine 125 MCG Tablet PO (05:12)
[2021-02-02] MEDS: Metoprolol(XL)Succ 50 MG Tablet PO (05:12)
[2021-02-02] MEDS: Furosemide 40 MG/4 ML Vial IV ×2 (05:14→14:31)
[2021-02-02] MEDS: Rivaroxaban 10 MG Tablet PO (05:14)
[2021-02-02 05:41] LABS: Anion Gap 7 (5-15); BUN 9 mg/dL (7-18); BUN/Creat Ratio 16.5 RATIO (10-20); Calcium,Total 8.3 mg/dL (8.5-10.1); Chloride 95 mmol/L (98-107); Creatinine, Serum 0.55 mg/dL (0.55-1.02); EST Glomerular Filtration Rate 115 mL/min (>60); Est Glom Filt Rate - Afr Amer 139 mL/min (>60); Estimated Creatinine Clearance 40.68 ml/min; Glucose 147 mg/dL (74-106); Potassium 3.5 mmol/L (3.5-5.1); Sodium Level 133 mmol/L (136-145)
[2021-02-02 06:17] VITALS: BP 151/73; PULSE 79; RESP 14; TEMP 36.2; O2SAT 93
[2021-02-02 06:20] LABS: Bedside Glucose 218 mg/dL (70-110)
[2021-02-02 07:00] VITALS: PULSE 74; RESP 18
[2021-02-02] MEDS: Albuterol 2.5 MG/3 ML VIAL.NEB. INHALATION ×2 (07:00→19:28)
[2021-02-02] MEDS: Budesonide Respules 0.5 MG/2 ML AMPUL.NEB. INHALATION ×2 (07:00→19:28)
[2021-02-02] MEDS: metFORMIN (XR) 500 MG Tablet PO (08:19)
[2021-02-02] MEDS: Baclofen 10 MG Tablet PO ×3 (08:19→17:03)
[2021-02-02] MEDS: Potassium Chloride Oral Tablet 20 MEQ PO ×2 (08:19→17:03)
[2021-02-02] MEDS: Gabapentin 300 MG Capsule PO ×3 (08:20→17:03)
[2021-02-02] MEDS: Acetaminophen 500 MG Tablet 1000 MG PO (11:30)
[2021-02-02 12:39] VITALS: O2SAT 94
[2021-02-02 13:23] VITALS: BP 121/53; PULSE 83; RESP 16; TEMP 36.6; O2SAT 97
[2021-02-02] MEDS: 0.9% Saline Lock 10 ML Syringe IV (14:31)
[2021-02-02 19:28] VITALS: PULSE 80; RESP 20
[2021-02-02] MEDS: oxyCODONE 5 MG Tablet PO (21:34)
[2021-02-03] MEDS: oxyCODONE 5 MG Tablet PO ×2 (03:35→19:46)
[2021-02-03] MEDS: Furosemide 40 MG/4 ML Vial IV (05:07)
[2021-02-03] MEDS: 0.9% Saline Lock 10 ML Syringe IV ×2 (05:07→12:45)
[2021-02-03] MEDS: Menthol/Lanolin/Calamine/Znox 113 GM Tube 1 APPLIC TOPICAL ×3 (05:09→19:46)
[2021-02-03] MEDS: Nystatin Powder 15gm Bottle 1 APPLIC TOPICAL ×2 (05:10→17:05)
[2021-02-03] MEDS: Levothyroxine 125 MCG Tablet PO (05:10)
[2021-02-03] MEDS: Senna/Docusate Sodium 1 Tablet 2 TABLET PO (05:10)
[2021-02-03 05:11] VITALS: BP 127/72; PULSE 81
[2021-02-03] MEDS: Cefdinir 300 MG Capsule PO ×2 (05:11→17:01)
[2021-02-03] MEDS: Doxycycline 100 MG CAPSULE PO ×2 (05:11→17:02)
[2021-02-03] MEDS: Rivaroxaban 10 MG Tablet PO (05:11)
[2021-02-03] MEDS: guaiFENesin 600 MG Tablet PO ×2 (05:11→17:02)
[2021-02-03] MEDS: Metoprolol(XL)Succ 50 MG Tablet PO (05:11)
[2021-02-03 05:16] VITALS: BP 127/72; PULSE 81; RESP 18; TEMP 35.9; O2SAT 92
[2021-02-03 06:31] LABS: Bedside Glucose 204 mg/dL (70-110)
[2021-02-03] MEDS: Baclofen 10 MG Tablet PO ×3 (08:24→17:02)
[2021-02-03] MEDS: Gabapentin 300 MG Capsule PO ×3 (08:24→17:02)
[2021-02-03] MEDS: metFORMIN (XR) 500 MG Tablet PO (08:24)
[2021-02-03] MEDS: Potassium Chloride Oral Tablet 20 MEQ PO ×2 (08:24→17:01)
--- NOTE | 2021-02-03 09:01 | MDS.RN ---
Information for the mds was obtained from review of the clinical record, interview of resident, staff, and direct observation of resident's care.
--- NOTE | 2021-02-03 09:31 | NURSING ---
Addendum entered by Christina Mckeon 02/03/21 14:09: R' UPDATED ON NEW ORDER TO INCREASE LASIX. AGREEABLE. Original Note: Pt on IV lasixs 4omg BID still having significant +3 pitting edema to BLE feet pt states it feels like I'm walking on balloons. Pt wearing ishmael wraps and keeping legs elevated in chair. Dr. Culver updated and new order to increase Lasix to 80mg BID.
--- NOTE | 2021-02-03 09:35 | NURSING ---
Pt states she has increased amounts of gas on her stomach and has been belching more then normal. Updated Dr. Culver new order for Mylicon entered.
[2021-02-03] MEDS: Furosemide 100 MG/10 ML Vial 80 MG IV (12:45)
[2021-02-03 13:10] VITALS: PULSE 94; RESP 16
[2021-02-03] MEDS: Albuterol 2.5 MG/3 ML VIAL.NEB. INHALATION ×2 (13:10→18:41)
[2021-02-03 13:28] VITALS: BP 140/73; PULSE 89; RESP 17; TEMP 36.2; O2SAT 94
[2021-02-03] MEDS: Budesonide Respules 0.5 MG/2 ML AMPUL.NEB. INHALATION (18:40)
[2021-02-03 18:41] VITALS: PULSE 90; RESP 16
[2021-02-03 20:00] VITALS: RESP 16
[2021-02-04] MEDS: oxyCODONE 5 MG Tablet PO ×2 (02:36→21:21)
[2021-02-04 05:00] VITALS: BP 143/47; PULSE 77; RESP 14; TEMP 36.3; O2SAT 97
[2021-02-04] MEDS: Rivaroxaban 10 MG Tablet PO (05:28)
[2021-02-04] MEDS: Polyethylene Glycol 3350 17 GM PACKET PO (05:28)
[2021-02-04] MEDS: Cefdinir 300 MG Capsule PO ×2 (05:28→21:24)
[2021-02-04 05:29] VITALS: BP 143/47; PULSE 77
[2021-02-04] MEDS: Furosemide 100 MG/10 ML Vial 80 MG IV ×2 (05:29→14:53)
[2021-02-04] MEDS: Metoprolol(XL)Succ 50 MG Tablet PO (05:29)
[2021-02-04] MEDS: Levothyroxine 125 MCG Tablet PO (05:29)
[2021-02-04] MEDS: guaiFENesin 600 MG Tablet PO (05:29)
[2021-02-04] MEDS: Doxycycline 100 MG CAPSULE PO ×2 (05:30→21:23)
[2021-02-04] MEDS: Nystatin Powder 15gm Bottle 1 APPLIC TOPICAL ×2 (05:31→18:04)
[2021-02-04] MEDS: Menthol/Lanolin/Calamine/Znox 113 GM Tube 1 APPLIC TOPICAL ×3 (05:31→21:24)
[2021-02-04 06:40] LABS: Bedside Glucose 171 mg/dL (70-110)
--- NOTE | 2021-02-04 08:42 | NURSING ---
Addendum entered by Belkis Gutierrez 02/04/21 12:23: Able to eat some of her lunch. Is not wanting to take any pills at this time. States i dont want to upset my stomach further. Pills held and will continue to monitor. Addendum entered by Belkis Shyla Brenda 02/04/21 11:33: up in chair and eating lunch. States her stomach is feeling a little better. She is able to eat some chicken noodle soup. Original Note: pt sick to stomach, took early AM meds and got sick and vomited x2 liquid emesis per pt report. holding 0800 meds at this time until stomach settles. pt did take simethicone hoping it helps stomach. pt sitting in recliner chair. call light in reach.
[2021-02-04 13:35] VITALS: BP 138/71; PULSE 78; RESP 16; TEMP 36.9; O2SAT 95
[2021-02-04] MEDS: 0.9% Saline Lock 10 ML Syringe IV (14:55)
[2021-02-04] MEDS: Ondansetron ODT 4 MG Tablet 8 MG PO (17:30)
--- NOTE | 2021-02-04 18:05 | NURSING ---
Continues to feel nauseas. Unable to eat supper at this time or give pills. Resident requesting to take pills later. Zofran given about 30 minutes ago.
[2021-02-04] MEDS: Budesonide Respules 0.5 MG/2 ML AMPUL.NEB. INHALATION (20:05)
[2021-02-04] MEDS: Albuterol 2.5 MG/3 ML VIAL.NEB. INHALATION (20:05)
[2021-02-04 20:06] VITALS: PULSE 76; RESP 16; O2SAT 94
[2021-02-05] MEDS: Acetaminophen 500 MG Tablet 1000 MG PO (01:54)
--- NOTE | 2021-02-05 02:44 | NURSING ---
Pt. requests to discuss plan of care sometime today with Dr. Culver r/t continued pedal edema despite increased lasix. Written communication left for related to patient request.
[2021-02-05] MEDS: oxyCODONE 5 MG Tablet PO (03:01)
[2021-02-05] MEDS: Menthol/Lanolin/Calamine/Znox 113 GM Tube 1 APPLIC TOPICAL ×3 (04:44→20:20)
[2021-02-05] MEDS: 0.9% Saline Lock 10 ML Syringe IV ×2 (04:45→14:45)
[2021-02-05] MEDS: Nystatin Powder 15gm Bottle 1 APPLIC TOPICAL ×2 (04:45→18:33)
[2021-02-05] MEDS: Rivaroxaban 10 MG Tablet PO (04:46)
[2021-02-05] MEDS: Levothyroxine 125 MCG Tablet PO (04:46)
[2021-02-05] MEDS: Furosemide 100 MG/10 ML Vial 80 MG IV ×2 (04:47→14:44)
[2021-02-05 04:48] VITALS: BP 129/72; PULSE 72; RESP 18; TEMP 36.6; O2SAT 93
[2021-02-05 05:57] LABS: Anion Gap 7 (5-15); BUN 11 mg/dL (7-18); Calcium,Total 7.9 mg/dL (8.5-10.1); Chloride 88 mmol/L (98-107); Creatinine, Serum 0.74 mg/dL (0.55-1.02); EST Glomerular Filtration Rate 81 mL/min (>60); Est Glom Filt Rate - Afr Amer 99 mL/min (>60); Estimated Creatinine Clearance 40.68 ml/min; Glucose 149 mg/dL (74-106); Potassium 3.1 mmol/L (3.5-5.1); Sodium Level 128 mmol/L (136-145)
[2021-02-05 06:25] LABS: Bedside Glucose 148 mg/dL (70-110)
[2021-02-05 07:21] VITALS: PULSE 68; RESP 16; O2SAT 95
[2021-02-05] MEDS: Albuterol 2.5 MG/3 ML VIAL.NEB. INHALATION ×2 (07:21→18:56)
[2021-02-05] MEDS: Budesonide Respules 0.5 MG/2 ML AMPUL.NEB. INHALATION ×2 (07:22→18:56)
[2021-02-05] MEDS: Ondansetron ODT 4 MG Tablet 8 MG PO (07:50)
[2021-02-05] MEDS: Polyethylene Glycol 3350 17 GM PACKET PO (08:58)
[2021-02-05] MEDS: Potassium Chloride Oral Tablet 20 MEQ 40 MEQ PO ×2 (09:13→17:44)
[2021-02-05] MEDS: LORazepam 0.5 MG Tablet 0.25 MG PO (09:17)
--- NOTE | 2021-02-05 10:15 | RAD_ITS ---
History: Nausea Abdomen: Findings: AP supine view of the abdomen demonstrates mild distention of the small bowel consistent with ileus. No pathologic calcification or organomegaly. Psoas muscle margins are well delineated. Intraspinal stimulator wires extend to the thoracic level. Prominent disc degeneration noted within the lumbar spine. The L4 and L5 laminectomy. IMPRESSION: Mild nonspecific small bowel ileus. at 1149 Reported and signed by: Kvng Flores MD Electronically Signed: Kvng Flores MD at 11:48 EDT Tel , Service support , RAD/Abdomen Single View
--- NOTE | 2021-02-05 10:24 | NURSING ---
Pt c/o of increased nausea. Pt unable to take meds d/t nausea tried to take her potassium and vomited back up. Pt States she can not do this anymore. Dr. Culver updated new order 25mg IM Phenergan KUB and Urinalysis entered.
[2021-02-05] MEDS: proMETHazine 25 MG/ML Syringe IM (10:39)
[2021-02-05 11:20] LABS: Bacteria 0 SEEN /hpf (None Seen); Mucous, Urine 0 SEEN /hpf (<or=2+); Red Blood Cells-Urine 0 SEEN /hpf (0-5); Squamous Epithelial Cells - UA 0 SEEN /hpf (5-10); White Blood Cells 0 SEEN /hpf (0-5)
[2021-02-05 11:29] LABS: Color, Urine Yellow (Yellow); Glucose, Dipstick Normal (Normal); Ketone-Dipstick Negative (Negative); Leukocyte Esterase-Dipstick Negative /ul (Negative); Nitrite-Dipstick Negative (Negative); Occult Blood-Urine Negative /ul (Negative); Protein-Dipstick Negative (Negative); Specific Gravity, Urine 1.015 (1.002-1.030); Urine Bilirubin Dipstick Negative (Negative); Urine Clarity Clear (Clear); Urine Urobilinogen Normal (Normal); Urine pH 6.5 (5.0 - 8.0)
[2021-02-05 11:41] VITALS: BP 170/66; PULSE 82
[2021-02-05] MEDS: Metoprolol(XL)Succ 50 MG Tablet PO (11:41)
[2021-02-05] MEDS: Cefdinir 300 MG Capsule PO ×2 (11:41→20:20)
[2021-02-05] MEDS: Gabapentin 100 MG Capsule 200 MG PO ×2 (12:30→18:31)
[2021-02-05 13:44] VITALS: BP 144/76; PULSE 84; RESP 17; TEMP 36.3; O2SAT 93
--- NOTE | 2021-02-05 14:00 | NURSING ---
Updated Dr. Culver on X-ray results no new orders at this time.
--- NOTE | 2021-02-05 16:38 | CASEMGMT ---
Social Work SW met with pt and explained NRD is 02/09/21 and continued stay is not guaranteed. Pt is hopeful that she will be able to return home alone at time of discharge. SW inquired about a Plan B in the event pt is unable to live alone, as her dgt is unable to provide any assistance. Pt states that she had applied for Medicaid while she was at [place] but had not heard back if she was eligible. This will determine plan. SW sent email to [facility] inquiring about medicaid status and will await response. LA Henriquez
[2021-02-05] MEDS: Senna/Docusate Sodium 1 Tablet 2 TABLET PO (18:33)
[2021-02-05 18:56] VITALS: PULSE 88; RESP 16; O2SAT 92
[2021-02-05] MEDS: guaiFENesin 600 MG Tablet PO (20:20)
[2021-02-05] MEDS: Baclofen 10 MG Tablet PO (20:20)
[2021-02-06] VITALS (7 sets, daily range): BP systolic 150–156; BP diastolic 46–67; PULSE 74–92; RESP 16–18; TEMP 36–36.6; O2SAT 89–98
[2021-02-06] MEDS: Nystatin Powder 15gm Bottle 1 APPLIC TOPICAL ×2 (05:49→16:58)
[2021-02-06] MEDS: Menthol/Lanolin/Calamine/Znox 113 GM Tube 1 APPLIC TOPICAL ×3 (05:49→21:29)
[2021-02-06] MEDS: Furosemide 100 MG/10 ML Vial 80 MG IV ×2 (05:49→15:08)
[2021-02-06] MEDS: Rivaroxaban 10 MG Tablet PO (05:50)
[2021-02-06] MEDS: Levothyroxine 125 MCG Tablet PO (05:50)
[2021-02-06 06:25] LABS: Bedside Glucose 167 mg/dL (70-110)
[2021-02-06] MEDS: Albuterol 2.5 MG/3 ML VIAL.NEB. INHALATION ×3 (07:09→18:47)
[2021-02-06] MEDS: Budesonide Respules 0.5 MG/2 ML AMPUL.NEB. INHALATION ×2 (07:09→18:47)
[2021-02-06] MEDS: Cefdinir 300 MG Capsule PO ×2 (08:03→21:29)
[2021-02-06] MEDS: metFORMIN (XR) 500 MG Tablet PO (08:04)
[2021-02-06] MEDS: Baclofen 10 MG Tablet PO ×3 (08:04→16:57)
[2021-02-06] MEDS: guaiFENesin 600 MG Tablet PO ×2 (08:04→21:29)
[2021-02-06] MEDS: Polyethylene Glycol 3350 17 GM PACKET PO (08:04)
[2021-02-06] MEDS: Gabapentin 100 MG Capsule 200 MG PO ×3 (08:04→16:57)
[2021-02-06] MEDS: Potassium Chloride Oral Tablet 20 MEQ 40 MEQ PO ×2 (08:04→16:57)
[2021-02-06] MEDS: Metoprolol(XL)Succ 50 MG Tablet PO (08:04)
[2021-02-06] MEDS: oxyCODONE 5 MG Tablet PO (08:08)
[2021-02-06] MEDS: 0.9% Saline Lock 10 ML Syringe IV (15:08)
[2021-02-06] MEDS: Senna/Docusate Sodium 1 Tablet 2 TABLET PO (16:57)
[2021-02-07] VITALS (7 sets, daily range): BP systolic 149–156; BP diastolic 74; PULSE 78–90; RESP 16–20; TEMP 35.9–36.2; O2SAT 90–97
[2021-02-07] MEDS: Levothyroxine 125 MCG Tablet PO (04:49)
[2021-02-07] MEDS: Rivaroxaban 10 MG Tablet PO (04:49)
[2021-02-07] MEDS: Furosemide 100 MG/10 ML Vial 80 MG IV ×2 (04:50→13:33)
[2021-02-07] MEDS: Menthol/Lanolin/Calamine/Znox 113 GM Tube 1 APPLIC TOPICAL ×3 (04:50→23:37)
[2021-02-07] MEDS: 0.9% Saline Lock 10 ML Syringe IV (04:52)
[2021-02-07] MEDS: Nystatin Powder 15gm Bottle 1 APPLIC TOPICAL ×2 (05:02→13:38)
[2021-02-07 06:50] LABS: Bedside Glucose 159 mg/dL (70-110)
[2021-02-07] MEDS: Budesonide Respules 0.5 MG/2 ML AMPUL.NEB. INHALATION ×2 (07:43→19:28)
[2021-02-07] MEDS: Albuterol 2.5 MG/3 ML VIAL.NEB. INHALATION ×3 (07:43→19:28)
[2021-02-07] MEDS: Gabapentin 100 MG Capsule 200 MG PO ×3 (08:50→17:08)
[2021-02-07] MEDS: Baclofen 10 MG Tablet PO ×3 (08:50→17:08)
[2021-02-07 08:51] LABS: Absolute Lymphocyte Count 1.69 X10^3/uL (0.83-4.51); Absolute Neutrophil Count 7.6 X10^3/uL (2.0-7.7); Basophil# 0.05 X10^3/uL; Basophil% 0.5 % (0-1); Eosinophil# 0.16 X10^3/uL; Eosinophils% 1.5 % (0-5); Hematocrit 37.8 % (37-47); Hemoglobin 12.2 g/dL (12.0-15.0); Lymphocyte # 1.69 X10^3/ul (0.83-4.51); Mean Corp Hgb Conc 32.3 g/dL (32-36); Mean Corpuscular Volume 105.3 fL (81-99); Mean Platelet Vol. 10.6 fl (6.2-12.0); Monocyte# 0.92 X10^3/uL; Monocyte% 8.7 % (0-10); NRBC Flagged by Analyzer 0 % (0-5); Neutrophil # 7.59 X10^3/uL (2.7-7.7); Neutrophil % 71.6 % (47-70); Platelet Count 469 K/mm3 (150-450); RBC Distribution Width CV 13.5 % (11.6-14.6); Red Blood Count 3.59 M/mm3 (4.2-5.4); White Blood Count 10.6 K/mm3 (4.4-11.0)
[2021-02-07] MEDS: metFORMIN (XR) 500 MG Tablet PO (08:51)
[2021-02-07] MEDS: guaiFENesin 600 MG Tablet PO ×2 (08:51→19:53)
[2021-02-07] MEDS: Polyethylene Glycol 3350 17 GM PACKET PO (08:52)
[2021-02-07] MEDS: Metoprolol(XL)Succ 50 MG Tablet PO (08:52)
[2021-02-07] MEDS: Potassium Chloride Oral Tablet 20 MEQ 40 MEQ PO ×3 (08:52→17:08)
[2021-02-07] MEDS: Cefdinir 300 MG Capsule PO ×2 (08:53→19:53)
[2021-02-07] MEDS: oxyCODONE 5 MG Tablet PO (08:58)
[2021-02-07 09:15] LABS: Anion Gap 8 (5-15); BUN 9 mg/dL (7-18); BUN/Creat Ratio 10.8 RATIO (10-20); Calcium,Total 8.6 mg/dL (8.5-10.1); Chloride 95 mmol/L (98-107); Creatinine, Serum 0.83 mg/dL (0.55-1.02); EST Glomerular Filtration Rate 71 mL/min (>60); Est Glom Filt Rate - Afr Amer 86 mL/min (>60); Estimated Creatinine Clearance 49.02 ml/min; Glucose 147 mg/dL (74-106); Potassium 3.3 mmol/L (3.5-5.1); Sodium Level 133 mmol/L (136-145)
[2021-02-08] VITALS (7 sets, daily range): BP systolic 134–153; BP diastolic 67–79; PULSE 80–91; RESP 12–20; TEMP 36.2–36.4; O2SAT 92–97
--- NOTE | 2021-02-08 05:29 | NURSING ---
general technician informs this nurse that pt reports shortness of breath. Vitals obtained and recorded. In no acute distress. HOB elevated affording some relief. Phone call placed to respiratory therapy reporting pt's request for a breathing tx.
[2021-02-08] MEDS: Albuterol 2.5 MG/3 ML VIAL.NEB. INHALATION ×2 (05:35→18:37)
[2021-02-08] MEDS: Rivaroxaban 10 MG Tablet PO (05:58)
[2021-02-08] MEDS: Levothyroxine 125 MCG Tablet PO (05:58)
[2021-02-08] MEDS: Nystatin Powder 15gm Bottle 1 APPLIC TOPICAL ×2 (05:59→17:30)
[2021-02-08] MEDS: Menthol/Lanolin/Calamine/Znox 113 GM Tube 1 APPLIC TOPICAL ×3 (05:59→20:53)
[2021-02-08] MEDS: Furosemide 100 MG/10 ML Vial 80 MG IV ×2 (06:01→14:30)
[2021-02-08] MEDS: 0.9% Saline Lock 10 ML Syringe IV ×2 (06:02→14:29)
[2021-02-08 06:24] LABS: Anion Gap 6 (5-15); BUN 11 mg/dL (7-18); BUN/Creat Ratio 17.7 RATIO (10-20); Calcium,Total 8.5 mg/dL (8.5-10.1); Chloride 99 mmol/L (98-107); Creatinine, Serum 0.62 mg/dL (0.55-1.02); EST Glomerular Filtration Rate 99 mL/min (>60); Est Glom Filt Rate - Afr Amer 119 mL/min (>60); Estimated Creatinine Clearance 40.68 ml/min; Glucose 142 mg/dL (74-106); Potassium 3.8 mmol/L (3.5-5.1); Sodium Level 134 mmol/L (136-145)
[2021-02-08 06:41] LABS: Bedside Glucose 150 mg/dL (70-110)
[2021-02-08] MEDS: Budesonide Respules 0.5 MG/2 ML AMPUL.NEB. INHALATION ×3 (08:00→18:37)
[2021-02-08] MEDS: Cefdinir 300 MG Capsule PO ×2 (08:16→20:54)
[2021-02-08] MEDS: Metoprolol(XL)Succ 50 MG Tablet PO (08:16)
[2021-02-08] MEDS: guaiFENesin 600 MG Tablet PO ×2 (08:16→20:53)
[2021-02-08] MEDS: metFORMIN (XR) 500 MG Tablet PO (08:16)
[2021-02-08] MEDS: Gabapentin 100 MG Capsule 200 MG PO ×3 (08:17→17:31)
[2021-02-08] MEDS: Polyethylene Glycol 3350 17 GM PACKET PO (08:17)
[2021-02-08] MEDS: Potassium Chloride Oral Tablet 20 MEQ 40 MEQ PO ×2 (08:17→17:30)
[2021-02-08] MEDS: Baclofen 10 MG Tablet PO ×3 (08:17→17:30)
[2021-02-08] MEDS: oxyCODONE 5 MG Tablet PO ×2 (10:27→20:53)
[2021-02-08] MEDS: NYSTATIN 500,000 UNIT/5 ML UDC 500000 UNIT PO ×2 (17:30→20:54)
[2021-02-08] MEDS: Acetaminophen 500 MG Tablet 1000 MG PO (17:33)
[2021-02-09 04:51] VITALS: BP 154/58; PULSE 80; RESP 16; TEMP 36.8; O2SAT 98
[2021-02-09] MEDS: 0.9% Saline Lock 10 ML Syringe IV ×2 (04:53→14:14)
[2021-02-09] MEDS: Nystatin Powder 15gm Bottle 1 APPLIC TOPICAL ×2 (04:53→17:52)
[2021-02-09] MEDS: Menthol/Lanolin/Calamine/Znox 113 GM Tube 1 APPLIC TOPICAL ×3 (04:53→20:02)
[2021-02-09] MEDS: NYSTATIN 500,000 UNIT/5 ML UDC 500000 UNIT PO ×4 (04:54→20:02)
[2021-02-09] MEDS: Levothyroxine 125 MCG Tablet PO (04:54)
[2021-02-09] MEDS: Rivaroxaban 10 MG Tablet PO (04:55)
[2021-02-09] MEDS: Furosemide 100 MG/10 ML Vial 80 MG IV ×2 (04:55→14:14)
[2021-02-09 06:46] LABS: Bedside Glucose 180 mg/dL (70-110)
[2021-02-09 08:08] VITALS: PULSE 80
[2021-02-09] MEDS: Cefdinir 300 MG Capsule PO ×2 (08:08→20:02)
[2021-02-09] MEDS: Baclofen 10 MG Tablet PO ×3 (08:08→17:52)
[2021-02-09] MEDS: Gabapentin 100 MG Capsule 200 MG PO ×3 (08:08→17:52)
[2021-02-09] MEDS: metFORMIN (XR) 500 MG Tablet PO (08:08)
[2021-02-09] MEDS: Metoprolol(XL)Succ 50 MG Tablet PO (08:08)
[2021-02-09] MEDS: guaiFENesin 600 MG Tablet PO ×2 (08:08→20:02)
[2021-02-09] MEDS: Polyethylene Glycol 3350 17 GM PACKET PO (08:08)
[2021-02-09] MEDS: Potassium Chloride Oral Tablet 20 MEQ 40 MEQ PO ×2 (08:24→17:51)
[2021-02-09 13:20] VITALS: RESP 18
[2021-02-09] MEDS: Budesonide Respules 0.5 MG/2 ML AMPUL.NEB. INHALATION (13:20)
[2021-02-09] MEDS: Albuterol 2.5 MG/3 ML VIAL.NEB. INHALATION ×2 (13:20→19:50)
[2021-02-09 14:16] VITALS: BP 171/87; PULSE 86; RESP 16; TEMP 36.8; O2SAT 95
[2021-02-09] MEDS: Senna/Docusate Sodium 1 Tablet 2 TABLET PO (17:51)
[2021-02-09 19:50] VITALS: PULSE 84; RESP 18; O2SAT 95
[2021-02-09] MEDS: MELATONIN 10 MG TABLET PO (20:54)
[2021-02-09] MEDS: oxyCODONE 5 MG Tablet PO (20:54)
[2021-02-09 23:16] VITALS: PULSE 83; RESP 14; O2SAT 98
[2021-02-10] MEDS: Menthol/Lanolin/Calamine/Znox 113 GM Tube 1 APPLIC TOPICAL ×3 (05:34→20:59)
[2021-02-10] MEDS: Nystatin Powder 15gm Bottle 1 APPLIC TOPICAL ×2 (05:35→17:34)
[2021-02-10] MEDS: Rivaroxaban 10 MG Tablet PO (05:35)
[2021-02-10] MEDS: Levothyroxine 125 MCG Tablet PO (05:35)
[2021-02-10] MEDS: Furosemide 100 MG/10 ML Vial 80 MG IV ×2 (05:35→14:59)
[2021-02-10] MEDS: NYSTATIN 500,000 UNIT/5 ML UDC 500000 UNIT PO ×4 (05:35→20:59)
[2021-02-10 06:30] LABS: Bedside Glucose 182 mg/dL (70-110)
[2021-02-10 07:09] VITALS: PULSE 82; RESP 20
[2021-02-10] MEDS: Budesonide Respules 0.5 MG/2 ML AMPUL.NEB. INHALATION ×2 (07:10→19:10)
[2021-02-10] MEDS: Albuterol 2.5 MG/3 ML VIAL.NEB. INHALATION ×3 (07:10→19:10)
[2021-02-10 07:34] VITALS: BP 158/92; PULSE 81; RESP 12; TEMP 36.3; O2SAT 93
[2021-02-10] MEDS: Baclofen 10 MG Tablet PO ×3 (08:17→17:33)
[2021-02-10] MEDS: metFORMIN (XR) 500 MG Tablet PO (08:17)
[2021-02-10] MEDS: Gabapentin 100 MG Capsule 200 MG PO ×3 (08:17→17:32)
[2021-02-10] MEDS: Polyethylene Glycol 3350 17 GM PACKET PO (08:18)
[2021-02-10] MEDS: Potassium Chloride Oral Tablet 20 MEQ 40 MEQ PO ×2 (08:18→17:32)
[2021-02-10] MEDS: guaiFENesin 600 MG Tablet PO ×2 (08:20→20:58)
[2021-02-10 08:21] VITALS: PULSE 81
[2021-02-10] MEDS: Metoprolol(XL)Succ 50 MG Tablet PO (08:21)
[2021-02-10] MEDS: Ondansetron ODT 4 MG Tablet 8 MG PO ×2 (08:33→21:10)
[2021-02-10] MEDS: Cefdinir 300 MG Capsule PO ×2 (12:18→20:58)
[2021-02-10 13:17] VITALS: PULSE 84; RESP 20
[2021-02-10 14:25] VITALS: BP 158/73; PULSE 90; RESP 17; TEMP 36.1; O2SAT 93
[2021-02-10] MEDS: 0.9% Saline Lock 10 ML Syringe IV (14:59)
--- NOTE | 2021-02-10 16:00 | CASEMGMT ---
Social Work SW spoke with Love from [facility] and pt does not qualify for Medicaid. NRD for insurance is 02/13 with expectations that NOMNC will be issued at that time which would indicate possible discharge on Friday 02/16. SW met with pt and explained the above. Relayed recommendations from [facility] about ways to spend down to then qualify for Medicaid. Pt states she will not be doing that. SW provided pt with written contact information to [facility] and encouraged her to followup if she has further questions. Pt feels if she is able to stay in TCU until Tuesday she will be ready to return home alone. SW inquired about home health services and pt is agreeable to this and would like to use [facility] which she has utilized in the past. Referral made to Brenna at [facility] for PT/OT/SN/RIG BUILDER HELPER/SW. Will await determination if they can accept. Pt has needed DME. Pt requested SW update her daughter. Phone call to pt dgt and relayed the above information. All questions answered. Dgt is agreeable with pt returning home and states she can provide transportation. VENICE will continue to follow. LA Henriquez
[2021-02-10 19:10] VITALS: PULSE 82; RESP 20; O2SAT 95
[2021-02-11] VITALS (7 sets, daily range): BP systolic 139–160; BP diastolic 68–80; PULSE 63–110; RESP 16–18; TEMP 35.9–36.2; O2SAT 93–96
[2021-02-11] MEDS: Levothyroxine 125 MCG Tablet PO (05:55)
[2021-02-11] MEDS: Nystatin Powder 15gm Bottle 1 APPLIC TOPICAL ×2 (05:55→17:46)
[2021-02-11] MEDS: NYSTATIN 500,000 UNIT/5 ML UDC 500000 UNIT PO ×4 (05:55→20:34)
[2021-02-11] MEDS: Rivaroxaban 10 MG Tablet PO (05:55)
[2021-02-11] MEDS: Menthol/Lanolin/Calamine/Znox 113 GM Tube 1 APPLIC TOPICAL ×3 (05:56→20:35)
[2021-02-11] MEDS: Furosemide 100 MG/10 ML Vial 80 MG IV ×2 (05:58→13:25)
[2021-02-11] MEDS: 0.9% Saline Lock 10 ML Syringe IV ×2 (06:01→13:27)
[2021-02-11 06:36] LABS: Bedside Glucose 165 mg/dL (70-110)
[2021-02-11] MEDS: Polyethylene Glycol 3350 17 GM PACKET PO (08:21)
[2021-02-11] MEDS: Baclofen 10 MG Tablet PO ×3 (08:22→17:42)
[2021-02-11] MEDS: Gabapentin 100 MG Capsule 200 MG PO ×3 (08:22→17:42)
[2021-02-11] MEDS: metFORMIN (XR) 500 MG Tablet PO (08:23)
[2021-02-11] MEDS: Metoprolol(XL)Succ 50 MG Tablet PO (08:23)
[2021-02-11] MEDS: Cefdinir 300 MG Capsule PO ×2 (08:23→20:35)
[2021-02-11] MEDS: Potassium Chloride Oral Tablet 20 MEQ 40 MEQ PO ×2 (08:23→17:42)
[2021-02-11] MEDS: guaiFENesin 600 MG Tablet PO ×2 (08:23→20:35)
--- NOTE | 2021-02-11 10:59 | CASEMGMT ---
Social Work Referral made to [facility] for PT/OT/SN/ENGINE TEST CELL TECHNICIAN/SW and they are able to accept pt at time of discharge. LA Henriquez
[2021-02-11] MEDS: Albuterol 2.5 MG/3 ML VIAL.NEB. INHALATION ×2 (13:23→19:35)
[2021-02-11] MEDS: Acetaminophen 500 MG Tablet 1000 MG PO (18:36)
[2021-02-11] MEDS: Budesonide Respules 0.5 MG/2 ML AMPUL.NEB. INHALATION (19:35)
[2021-02-11] MEDS: oxyCODONE 5 MG Tablet PO (20:32)
[2021-02-12] VITALS (7 sets, daily range): BP systolic 149–172; BP diastolic 66–71; PULSE 77–90; RESP 12–22; TEMP 35.9; O2SAT 93–96
[2021-02-12] MEDS: Albuterol 2.5 MG/3 ML VIAL.NEB. INHALATION ×4 (04:24→18:54)
[2021-02-12] MEDS: Menthol/Lanolin/Calamine/Znox 113 GM Tube 1 APPLIC TOPICAL ×3 (04:41→21:05)
[2021-02-12] MEDS: Nystatin Powder 15gm Bottle 1 APPLIC TOPICAL ×2 (04:42→17:07)
[2021-02-12] MEDS: NYSTATIN 500,000 UNIT/5 ML UDC 500000 UNIT PO ×4 (04:43→21:06)
[2021-02-12] MEDS: Levothyroxine 125 MCG Tablet PO (04:43)
[2021-02-12] MEDS: Rivaroxaban 10 MG Tablet PO (04:43)
[2021-02-12] MEDS: Furosemide 100 MG/10 ML Vial 80 MG IV ×2 (04:43→14:48)
[2021-02-12] MEDS: 0.9% Saline Lock 10 ML Syringe IV ×2 (04:44→14:47)
[2021-02-12 06:26] LABS: Bedside Glucose 235 mg/dL (70-110)
[2021-02-12] MEDS: Budesonide Respules 0.5 MG/2 ML AMPUL.NEB. INHALATION ×2 (07:51→18:54)
[2021-02-12] MEDS: Metoprolol(XL)Succ 50 MG Tablet PO (08:19)
[2021-02-12] MEDS: Baclofen 10 MG Tablet PO ×3 (08:19→17:06)
[2021-02-12] MEDS: Potassium Chloride Oral Tablet 20 MEQ 40 MEQ PO ×2 (08:20→17:06)
[2021-02-12] MEDS: Polyethylene Glycol 3350 17 GM PACKET PO (08:20)
[2021-02-12] MEDS: Gabapentin 100 MG Capsule 200 MG PO ×2 (08:20→11:58)
[2021-02-12] MEDS: metFORMIN (XR) 500 MG Tablet PO (08:20)
[2021-02-12] MEDS: guaiFENesin Dm 10 ML UDC PO ×2 (08:27→21:04)
[2021-02-12] MEDS: Acetaminophen 500 MG Tablet 1000 MG PO (11:32)
[2021-02-12] MEDS: Gabapentin 100 MG Capsule PO (17:12)
[2021-02-12] MEDS: oxyCODONE 5 MG Tablet PO (21:04)
[2021-02-13] VITALS (8 sets, daily range): BP systolic 136–156; BP diastolic 58–64; PULSE 64–85; RESP 14–20; TEMP 35.9–36.1; O2SAT 93–97
[2021-02-13] MEDS: NYSTATIN 500,000 UNIT/5 ML UDC 500000 UNIT PO ×4 (04:43→20:35)
[2021-02-13] MEDS: Furosemide 80 MG Tablet PO ×2 (04:43→12:20)
[2021-02-13] MEDS: Levothyroxine 125 MCG Tablet PO (04:43)
[2021-02-13] MEDS: 0.9% Saline Lock 10 ML Syringe IV (04:43)
[2021-02-13] MEDS: Rivaroxaban 10 MG Tablet PO (04:43)
[2021-02-13] MEDS: Menthol/Lanolin/Calamine/Znox 113 GM Tube 1 APPLIC TOPICAL ×3 (04:44→20:34)
[2021-02-13] MEDS: Nystatin Powder 15gm Bottle 1 APPLIC TOPICAL ×2 (04:44→16:49)
[2021-02-13] MEDS: Albuterol 2.5 MG/3 ML VIAL.NEB. INHALATION ×4 (05:00→19:15)
[2021-02-13 06:21] LABS: Bedside Glucose 210 mg/dL (70-110)
[2021-02-13] MEDS: guaiFENesin Dm 10 ML UDC PO ×2 (06:29→14:55)
[2021-02-13] MEDS: Budesonide Respules 0.5 MG/2 ML AMPUL.NEB. INHALATION ×2 (06:32→19:15)
[2021-02-13] MEDS: Baclofen 10 MG Tablet PO ×3 (09:35→16:44)
[2021-02-13] MEDS: Senna/Docusate Sodium 1 Tablet 2 TABLET PO (09:36)
[2021-02-13] MEDS: Polyethylene Glycol 3350 17 GM PACKET PO (09:36)
[2021-02-13] MEDS: Potassium Chloride Oral Tablet 20 MEQ 40 MEQ PO ×2 (09:36→16:40)
[2021-02-13] MEDS: Metoprolol(XL)Succ 50 MG Tablet PO (09:37)
[2021-02-13] MEDS: metFORMIN (XR) 500 MG Tablet PO (09:38)
[2021-02-13] MEDS: Gabapentin 100 MG Capsule PO ×3 (09:43→16:43)
--- NOTE | 2021-02-13 12:03 | CASEMGMT ---
Social Work Pt has been denied continued stay with insurance and NOMNC issued. Pt notified and agreeable to discharge home on Tuesday02/16/21. Pt will be returning home alone and receiving [facility] PT/OT/SN/SHOWROOM MANAGER/SW. Pt has all needed DME. Pt dgt aware and will transport pt home. Plan: D/C 02/16/21 home alone, home health PT/OT/SN/SHOWROOM MANAGER/SW LA Henriquez
--- NOTE | 2021-02-13 14:18 | PCM.DC.SUM ---
Providers Date of Admission: 01/23/21 Primary Care Physician: Dr. Jaime Culver MD Reason For Visit: RIGHT HIP FRACTURE Diagnosis Discharge Diagnosis (1) Debility: Status: Acute Code(s): R53.81 - Other malaise (2) Closed right hip fracture: Status: Acute Code(s): S72.001A - Fracture of unspecified part of neck of right femur, initial encounter for closed fracture (3) Hyponatremia: Status: Acute Code(s): E87.1 - Hypo-osmolality and hyponatremia (4) Asthma: Status: Acute Code(s): J45.909 - Unspecified asthma, uncomplicated (5) Vitamin B12 deficiency: Status: Acute Code(s): E53.8 - Deficiency of other specified B group vitamins (6) Diabetes mellitus: Status: Acute Code(s): E11.9 - Type 2 diabetes mellitus without complications (7) Gastroesophageal reflux disease: Status: Acute Code(s): K21.9 - Gastro-esophageal reflux disease without esophagitis (8) Hypertension: Status: Chronic Code(s): I10 - Essential (primary) hypertension (9) Hyperlipidemia: Status: Acute Code(s): E78.5 - Hyperlipidemia, unspecified (10) Restless leg syndrome: Status: Acute Code(s): G25.81 - Restless legs syndrome Medications at Discharge Home Medications metoprolol succinate 50 mg PO DAILY 05/19/20 albuterol sulfate 1 - 2 puff INHALATION Q6H PRN PRN 06/02/20 levothyroxine 125 mcg tablet 125 mcg PO DAILY tab 06/09/20 fluticasone furoate-vilanterol 1 ea IH DAILY 06/17/20 metformin 500 mg PO DAILY 12/27/20 Xarelto 10 mg PO DAILY@0600 21 Days #21 tab 02/13/21 acetaminophen 1,000 mg PO Q6H PRN PRN #0 tab 02/13/21 baclofen 10 mg PO TID 30 Days #90 tab 02/13/21 furosemide 80 mg PO BIDLX 30 Days #60 tab 02/13/21 potassium chloride [Klor-Con M20] 40 meq PO BIDCM 30 Days #120 tab 02/13/21 Hospital Course Operations total hip replacement (Right.) Procedures None Summary of Care Provided Minutes Spent on Discharge: 35 Hospital Course: 75 year old female with below past medical history hospitalized for right hip fracture, underwent right total hip replacement 01/21/[address] Lomax, complicated by thrush, admitted to TCU with debility, here for rehabilitation, strengthening, prior to discharge home alone. Discharge home alone 02/16/2021, Home health PT/OT/SN/PARTS DELIVERY DRIVER/SW. Physical Exam Const alert and oriented x3 General Appearance: cooperative HEENT normocephalic Eyes PERRL and EOMs intact bilaterally Neck supple, no JVD and no carotid bruits Resp normal respiratory effort, normal air movement and clear to auscultation bilaterally Cardio regular rate and regular rhythm GI normal to inspection, nondistended, normoactive bowel sounds, non-tender and non-distended Extremity normal capillary refill General Extremity: Negative for edema Skin no rashes or lesions noted General Skin Exam: no breakdown Psych affect normal Appearance: appropriate Medical Records Data Medical Nutrition Assessment Dietitian: Nutrition Therapy Diagnosis Start: 02/04/21 15:24 Freq: Status: Active Protocol: Document 02/04/21 15:25 [facility] (Rec: 02/04/21 15:25 [facility] [id number]) Nutrition Malnutrition Evidence of Malnutrition Exists No Clinical Problem Altered Nutrient-Related Laboratory Values Etiology related to endocrine dysfunction Signs/Symptoms as evidenced by blood glucose 147 and HgbA1C 7.7% Status Active Problem Unintended Weight Gain Etiology related to limited activity, suspected excessive energy intake, issues with edema Signs/Symptoms as evidenced by BMI 32.0 Status Active Problem Recommendation Dietitian Recommendations/Changes Will continue consistent carbohydrate; cardiac diet. Weight / BMI Weight Weight: 80.484 kg Body Mass Index (BMI) 33.5 ABG / Lab / Microbiology Data Result Diagrams: 02/07/21 07:04 02/08/21 05:19 Laboratory: Laboratory Results - last 24 hr 02/13/21 06:08: POC Glucose 210 H Microbiology: Microbiology 02/05/21 11:05 Urine, Catheterized Urine Culture - Final Culture exhibits no growth. D/C Instructions Discharge Diet: 6 Cup Fluid Restriction and 2000 mg Sodium Diet Discharge Activity: Return to Normal Activity Weight Bearing Status: Weight bearing as tolerated Call your doctor if you observe: Fever of 101 or Higher, Inability to urinate, Inability to have a bowel movement, Shortness of breath, Dizziness, Fainting spells, Chest pain and Uncontrolled pain Additional Instructions: Discharge home alone 02/16/2021, Home health PT/OT/SN/PARTS DELIVERY DRIVER/SW. Please Follow Up With: Jaime Culver Chi, MD When: 1 week. Meaningful Use Info Meaningful Use Diagnoses (Choose all that apply): None applicable Discharge Plan Admission Admit Date/Time: 01/23/21 17:30 Primary Reason for Your Visit: Debility. Attending Provider: Jaime Culver Chi Primary Care Provider: Jaime Culver Chi Instructions Additional Instructions / Restrictions: [facility] Physical and Occupational Therapy, Nursing Home, Home Health Aid, Records Management Specialist Discharge Orders/Prescriptions Prescriptions: New acetaminophen 500 mg Tablet 1,000 mg PO Q6H PRN PRN (Reason: Pain Score 1-3) Qty: 0 RF: 0 potassium chloride [Klor-Con M20] 20 mEq Tablet,Er Particles/Crystals 40 meq PO BIDCM 30 Days Qty: 120 RF: 0 furosemide 80 mg Tablet 80 mg PO BIDLX 30 Days Qty: 60 RF: 0 Continued levothyroxine 125 mcg tablet 125 mcg PO DAILY RF: 0 metoprolol succinate 50 MG tablet extended release 24 hr 50 mg PO DAILY RF: 0 albuterol sulfate 1 PUFF inhaler 1 - 2 puff INHALATION Q6H PRN PRN (Reason: Sob &/Or Wheezing) RF: 0 fluticasone furoate-vilanterol 1 EACH blister with device 1 ea IH DAILY RF: 0 metformin 500 mg Tablet Extended Release 24 Hr 500 mg PO DAILY RF: 0 baclofen 10 mg tablet 10 mg PO TID 30 Days Qty: 90 RF: 0 Xarelto 10 mg tablet 10 mg PO DAILY@0600 21 Days Qty: 21 RF: 0 Discontinued ascorbic acid (vitamin C) 1,000 mg Tablet,Chewable 1 g PO DAILY RF: 0 Alive Women's 50 Plus 120 mcg-150 mcg -37.5 mg Tablet,Chewable 1 tab PO DAILY RF: 0 furosemide [Lasix] 40 mg Tablet 40 mg PO DAILY RF: 0 tizanidine 2 mg Tablet 4 mg PO Q8H PRN PRN (Reason: Muscle Spasm) Qty: 0 RF: 0 insulin lispro [Humalog KwikPen Insulin] 100 unit/mL insulin pen See Protocol unit subcut ACHS RF: 0 acetaminophen 500 mg Tablet 1,000 mg PO Q6H PRN PRN (Reason: Pain Score 1-3) Qty: 0 RF: 0 gabapentin 300 mg capsule 300 mg PO TIDCM 30 Days Qty: 90 RF: 0 sennosides-docusate sodium [Senna Plus] 8.6-50 mg tablet 1 tab PO DAILY PRN PRN (Reason: Constipation) RF: 0 oxycodone-acetaminophen 5-325 mg tablet 1 tab PO TID PRN PRN (Reason: Pain) RF: 0 potassium chloride 20 mEq Tablet,Er Particles/Crystals 20 meq PO DAILY RF: 0 oxycodone 5 mg Tablet 5 mg PO Q4H PRN PRN (Reason: Pain Score 4-5) 7 Days Qty: 30 RF: 0 polyethylene glycol 3350 17 gram powder in packet 17 g PO DAILY RF: 0 nystatin [Nyamyc] 100,000 unit/gram powder 1 applic topical BID RF: 0 Referrals / Follow Up: Jaime Culver Chi, MD [Primary Care Provider] - Within 1 Week Disposition Disposition (needs filled in before D/C Order can be placed): Home Health Service
--- NOTE | 2021-02-13 14:23 | CASEMGMT ---
BIMS and PHQ9 interviews completed on this date for MDS assessment. LA Henriquez
[2021-02-13] MEDS: Acetaminophen 500 MG Tablet 1000 MG PO (14:55)
[2021-02-13] MEDS: MethylPREDNISolone DosePak 4 MG BOX 8 MG PO ×2 (16:40→20:35)
[2021-02-13] MEDS: Ondansetron ODT 4 MG Tablet 8 MG PO (19:57)
[2021-02-13] MEDS: oxyCODONE 5 MG Tablet PO (20:53)
[2021-02-14 05:00] VITALS: BP 141/62; PULSE 83; RESP 18; TEMP 36.6; O2SAT 95
[2021-02-14 06:21] LABS: Bedside Glucose 291 mg/dL (70-110)
[2021-02-14] MEDS: Rivaroxaban 10 MG Tablet PO (06:55)
[2021-02-14] MEDS: Levothyroxine 125 MCG Tablet PO (06:55)
[2021-02-14] MEDS: Furosemide 80 MG Tablet PO ×2 (06:55→12:19)
[2021-02-14] MEDS: NYSTATIN 500,000 UNIT/5 ML UDC 500000 UNIT PO ×4 (06:55→20:03)
[2021-02-14] MEDS: guaiFENesin Dm 10 ML UDC PO ×2 (06:58→20:01)
[2021-02-14 07:33] LABS: Absolute Neutrophil Count 10.1 X10^3/uL (2.0-7.7); Basophil# 0.04 X10^3/uL; Basophil% 0.3 % (0-1); Hematocrit 37.1 % (37-47); Lymphocyte % 10.7 % (19-41); Mean Corp Hgb Conc 32.3 g/dL (32-36); Mean Corpuscular Hgb 33.6 pg (27.0-32.0); Mean Corpuscular Volume 103.9 fL (81-99); Mean Platelet Vol. 10.5 fl (6.2-12.0); Monocyte# 0.42 X10^3/uL; Monocyte% 3.5 % (0-10); NRBC Flagged by Analyzer 0 % (0-5); Neutrophil # 10.05 X10^3/uL (2.7-7.7); Neutrophil % 83.1 % (47-70); Platelet Count 450 K/mm3 (150-450); RBC Distribution Width CV 13.1 % (11.6-14.6); RBC Distribution Width SD 49.8 fl (35.1-43.9); Red Blood Count 3.57 M/mm3 (4.2-5.4); White Blood Count 12.1 K/mm3 (4.4-11.0)
[2021-02-14 07:54] LABS: Anion Gap 8 (5-15); BUN 13 mg/dL (7-18); BUN/Creat Ratio 13.4 RATIO (10-20); Chloride 93 mmol/L (98-107); Creatinine, Serum 0.97 mg/dL (0.55-1.02); EST Glomerular Filtration Rate 59 mL/min (>60); Est Glom Filt Rate - Afr Amer 71 mL/min (>60); Estimated Creatinine Clearance 41.94 ml/min; Glucose 293 mg/dL (74-106); Potassium 4.7 mmol/L (3.5-5.1); Sodium Level 129 mmol/L (136-145)
[2021-02-14 09:44] VITALS: PULSE 80
[2021-02-14] MEDS: Gabapentin 100 MG Capsule PO ×3 (09:44→17:07)
[2021-02-14] MEDS: Polyethylene Glycol 3350 17 GM PACKET PO (09:44)
[2021-02-14] MEDS: Senna/Docusate Sodium 1 Tablet 2 TABLET PO ×2 (09:44→17:08)
[2021-02-14] MEDS: Metoprolol(XL)Succ 50 MG Tablet PO (09:44)
[2021-02-14] MEDS: metFORMIN (XR) 500 MG Tablet PO (09:44)
[2021-02-14] MEDS: Potassium Chloride Oral Tablet 20 MEQ 40 MEQ PO ×2 (09:44→17:06)
[2021-02-14] MEDS: MethylPREDNISolone DosePak 4 MG BOX 8 MG PO ×4 (09:45→20:03)
[2021-02-14] MEDS: Baclofen 10 MG Tablet PO ×3 (09:45→17:07)
[2021-02-14 12:00] VITALS: PULSE 88; RESP 16
[2021-02-14] MEDS: Albuterol 2.5 MG/3 ML VIAL.NEB. INHALATION ×2 (12:00→19:15)
[2021-02-14 14:46] VITALS: BP 152/100; PULSE 100; RESP 16; TEMP 36.3; O2SAT 94
[2021-02-14] MEDS: Menthol/Lanolin/Calamine/Znox 113 GM Tube 1 APPLIC TOPICAL ×2 (17:05→20:02)
[2021-02-14] MEDS: Nystatin Powder 15gm Bottle 1 APPLIC TOPICAL (17:08)
[2021-02-14] MEDS: Budesonide Respules 0.5 MG/2 ML AMPUL.NEB. INHALATION (19:15)
[2021-02-14] MEDS: oxyCODONE 5 MG Tablet PO (20:01)
[2021-02-15] VITALS (9 sets, daily range): BP systolic 155–190; BP diastolic 67–102; PULSE 72–91; RESP 16–18; TEMP 35.3–36.4; O2SAT 92–95
[2021-02-15] MEDS: Furosemide 80 MG Tablet PO ×2 (05:23→13:19)
[2021-02-15] MEDS: Levothyroxine 125 MCG Tablet PO (05:23)
[2021-02-15] MEDS: Menthol/Lanolin/Calamine/Znox 113 GM Tube 1 APPLIC TOPICAL ×3 (05:24→20:36)
[2021-02-15] MEDS: Rivaroxaban 10 MG Tablet PO (05:24)
[2021-02-15] MEDS: NYSTATIN 500,000 UNIT/5 ML UDC 500000 UNIT PO ×4 (05:24→20:34)
[2021-02-15] MEDS: Metoprolol(XL)Succ 50 MG Tablet PO (05:40)
--- NOTE | 2021-02-15 05:43 | NURSING ---
Patient w/ elevated BP this AM, 190/102 with pulse in 80s. She has a headache, denies any other symptoms. Notified Dr. Culver, order to give 0800 dose of Toprol now and DC steroids.
[2021-02-15 06:26] LABS: Bedside Glucose 308 mg/dL (70-110)
[2021-02-15] MEDS: Albuterol 2.5 MG/3 ML VIAL.NEB. INHALATION ×3 (07:30→19:20)
[2021-02-15] MEDS: Budesonide Respules 0.5 MG/2 ML AMPUL.NEB. INHALATION ×2 (07:30→19:21)
[2021-02-15] MEDS: Polyethylene Glycol 3350 17 GM PACKET PO (08:41)
[2021-02-15] MEDS: Potassium Chloride Oral Tablet 20 MEQ 40 MEQ PO ×2 (08:41→17:36)
[2021-02-15] MEDS: Senna/Docusate Sodium 1 Tablet 2 TABLET PO (08:41)
[2021-02-15] MEDS: Baclofen 10 MG Tablet PO ×3 (08:41→17:37)
[2021-02-15] MEDS: metFORMIN (XR) 500 MG Tablet PO (08:41)
[2021-02-15] MEDS: Gabapentin 100 MG Capsule PO ×3 (08:42→17:36)
[2021-02-15 10:51] LABS: Bedside Glucose 395 mg/dL (70-110)
[2021-02-15] MEDS: Insulin Lispro 100 UNIT/ML INSULN.PEN SC ×2 (12:16→17:35)
[2021-02-15] MEDS: guaiFENesin Dm 10 ML UDC PO ×2 (14:39→20:34)
[2021-02-15 16:01] LABS: Bedside Glucose 238 mg/dL (70-110)
[2021-02-15] MEDS: Nystatin Powder 15gm Bottle 1 APPLIC TOPICAL (17:37)
[2021-02-15] MEDS: oxyCODONE 5 MG Tablet PO (20:35)
[2021-02-15 21:41] LABS: Bedside Glucose 275 mg/dL (70-110)
[2021-02-16 05:00] VITALS: BP 172/74; PULSE 83; RESP 18; TEMP 36.3; O2SAT 93
[2021-02-16] MEDS: Albuterol 2.5 MG/3 ML VIAL.NEB. INHALATION ×3 (05:05→12:42)
[2021-02-16 05:10] VITALS: PULSE 78; RESP 16
[2021-02-16] MEDS: Furosemide 80 MG Tablet PO (05:17)
[2021-02-16] MEDS: NYSTATIN 500,000 UNIT/5 ML UDC 500000 UNIT PO ×2 (05:17→12:09)
[2021-02-16] MEDS: Rivaroxaban 10 MG Tablet PO (05:17)
[2021-02-16] MEDS: Menthol/Lanolin/Calamine/Znox 113 GM Tube 1 APPLIC TOPICAL (05:17)
[2021-02-16] MEDS: Levothyroxine 125 MCG Tablet PO (05:18)
[2021-02-16] MEDS: Nystatin Powder 15gm Bottle 1 APPLIC TOPICAL (05:18)
[2021-02-16 06:36] LABS: Bedside Glucose 191 mg/dL (70-110)
[2021-02-16] MEDS: Budesonide Respules 0.5 MG/2 ML AMPUL.NEB. INHALATION (06:53)
[2021-02-16 06:55] VITALS: PULSE 100; RESP 18; O2SAT 91
[2021-02-16 08:01] VITALS: BP 172/74; PULSE 100
[2021-02-16] MEDS: Metoprolol(XL)Succ 50 MG Tablet PO (08:01)
[2021-02-16] MEDS: Gabapentin 100 MG Capsule PO ×2 (08:02→12:12)
[2021-02-16] MEDS: metFORMIN (XR) 500 MG Tablet PO (08:02)
[2021-02-16] MEDS: Baclofen 10 MG Tablet PO ×2 (08:02→12:12)
[2021-02-16] MEDS: Potassium Chloride Oral Tablet 20 MEQ 40 MEQ PO (08:02)
[2021-02-16] MEDS: Insulin Lispro 100 UNIT/ML INSULN.PEN SC ×2 (08:02→12:10)
[2021-02-16] MEDS: Ondansetron ODT 4 MG Tablet 8 MG PO (08:08)
[2021-02-16] MEDS: guaiFENesin Dm 10 ML UDC PO (10:55)
[2021-02-16 11:00] LABS: Bedside Glucose 171 mg/dL (70-110)
[2021-02-16 12:40] VITALS: PULSE 100; RESP 18; O2SAT 98
[2021-02-16 13:35] VITALS: BP 160/70; PULSE 98; RESP 18; TEMP 36.5; O2SAT 94
--- NOTE | 2021-02-16 13:40 | NURSING ---
Resident requesting not to take Lasix now. She states she will take at home when she picks up her prescriptions. Assisted down to car.
== END 2021-02-16 13:45 | disposition home health service (06) | DRG 560 ==
PROVIDERS: Admitting Provider Family Medicine Geriatric Medicine; PCP Family Medicine Geriatric Medicine; Visit Provider Family Medicine Geriatric Medicine
DX: S72.001D Fracture of unspecified part of neck of right femur, subsequent encounter for closed fracture with routine healing (principal); B37.0 Candidal stomatitis; E87.1 Hypo-osmolality and hyponatremia; X58.XXXD Exposure to other specified factors, subsequent encounter; J45.909 Unspecified asthma, uncomplicated; K21.9 Gastro-esophageal reflux disease without esophagitis; I10 Essential (primary) hypertension; E78.5 Hyperlipidemia, unspecified; E03.9 Hypothyroidism, unspecified; E87.6 Hypokalemia; B35.4 Tinea corporis; E11.40 Type 2 diabetes mellitus with diabetic neuropathy, unspecified; G25.81 Restless legs syndrome; G89.29 Other chronic pain; Z86.010 Personal history of colon polyps; Z79.899 Other long term (current) drug therapy; Z79.4 Long term (current) use of insulin; Z96.641 Presence of right artificial hip joint
CPT/HCPCS: 36415; 71046; 74018; 80048; 81001; 82962; 85025; 87086; 87635; 94640; 94668; 97110; 97116; 97162; 97165; 97530; 97535; 97802; U0005; A4216; J1940; U0003

== ENCOUNTER → 2021-01-26 08:42 | Outpatient (CLI) | payer MEDICARE, SELFPAY ==
[2021-01-24 16:38] VITALS: BMI 33.5
--- NOTE | 2021-01-26 09:08 | VDUE_ITS ---
Reason For Study: LUE swelling Left Proximal Left jugular vein is spontaneous, widely patent, phasic, with no intraluminal echogenicity noted. Left Arm Left axillary vein is spontaneous, patent, phasic, competent, compressible and demonstrates augmentation. Left brachial vein is compressible. Left cephalic vein is compressible. Left basilic vein is compressible. Left Lower Arm Left radial vein is compressible. Left ulnar vein is compressible. Patient Safety Preliminary report given to patient's RN. VL/Venous Duplex US, Unilateral Interpretation Summary Deep veins of the left upper extremity are patent and compressible segmentally. There is no evidence of deep vein thrombosis. The superficial veins of the left upper extremity, the basilic and cephalic veins, are patent and compressible. There is no evidence of left upper extremit y superficial thrombophlebitis involving the veins imaged. Ordering Physician: Jaime Culver Referring Physician: Jaime Culver Chi Performed By: Jeannette Joseph, RDCS, RVT ?
== END ==
PROVIDERS: PCP Family Medicine Geriatric Medicine; Referring Provider Family Medicine Geriatric Medicine; Visit Provider Family Medicine Geriatric Medicine
DX: M79.89 Other specified soft tissue disorders (principal)
CPT/HCPCS: 93971

== ENCOUNTER → 2021-01-30 11:54 | Outpatient (CLI) | payer MEDICARE, SELFPAY ==
[2021-01-24 16:38] VITALS: BMI 33.5
--- NOTE | 2021-01-30 11:56 | CT_ITS ---
STUDY: CT CHEST WITHOUT CONTRAST REASON FOR EXAM: Female, 75 years old. Possible 9.4 mm nodule in the medial right upper lobe. RADIATION DOSAGE (If Supplied By Facility): CTDIvol = ( 17.84 ) mGy, DLP = ( 614.39 ) mGycm TECHNIQUE: Transaxial imaging was performed without the administration of intravenous contrast material. Multiplanar coronal and sagittal images were reformatted. Individualized dose optimization techniques were used for this CT. COMPARISON: Comparison is made with prior chest radiograph dated 01/27/[address] scan of the chest dated 02/28/2018. FINDINGS: No nodule is seen in the right upper lobe. Patchy infiltrates are seen in both lower lobes more prominent on the left side. These are in a peripheral distribution. Radiographic follow-up is recommended. Focal nodular infiltrate is also seen in the anterior medial aspect of the right lower lobe. There is no demonstrated pleural abnormality. There are calcifications of the coronary arteries. Calcification of the mitral valve annulus. A left-sided pacemaker is seen. There are multiple small lymph nodes within the mediastinum, which are normal in size and morphology most compatible with reactive lymph hyperplasia. Normal hilar regions. Normal unenhanced pulmonary arteries. There is atherosclerotic calcification of the aortic arch with tortuosity and elongation of the aortic arch and descending thoracic aorta. There are multi-level degenerative changes of the thoracic spine. There is no demonstrated abnormality of the visualized upper abdomen. CT/Chest without Contrast IMPRESSION: Patchy bibasilar infiltrates more prominent on the left side as well as in the anterior aspect of the right lower lobe. Radiographic follow-up is recommended. Electronically Signed: Gonzalo Jordan MD at 13:01 EDT , Service support ,
== END ==
PROVIDERS: PCP Family Medicine Geriatric Medicine; Referring Provider Family Medicine Geriatric Medicine; Visit Provider Family Medicine Geriatric Medicine
DX: R91.1 Solitary pulmonary nodule (principal)
CPT/HCPCS: 71250

== ENCOUNTER → 2021-02-18 11:14 | Outpatient (CLI) | payer MEDICARE, SELFPAY ==
[2021-01-24 16:38] VITALS: BMI 33.5
--- NOTE | 2021-02-18 12:26 | RAD_ITS ---
STUDY: X-RAY - ABDOMEN/PELVIS REASON FOR EXAM: Female, 75 years old. NAUSEA TECHNIQUE: AP supine and upright views of the abdomen and pelvis. COMPARISON: None. FINDINGS: Normal visualized lung bases. There is an unremarkable bowel gas pattern. There is no demonstrated free abdominal air. The visualized liver, spleen and kidneys are grossly normal in size and morphology. Normal soft tissue structures. Status post right hip arthroplasty. RAD/Abd Inc Decub and/or Erect IMPRESSION: Normal x-ray examination of the abdomen and pelvis. Electronically Signed: Max Feliciano MD at 16:51 EDT Tel , Service support ,
[2021-02-18 12:40] LABS: Absolute Lymphocyte Count 2.64 X10^3/uL (0.83-4.51); Absolute Neutrophil Count 12.7 X10^3/uL (2.0-7.7); Basophil# 0.11 X10^3/uL; Basophil% 0.6 % (0-1); Eosinophils% 1.2 % (0-5); Hematocrit 37.7 % (37-47); Hemoglobin 12.1 g/dL (12.0-15.0); Lymphocyte # 2.64 X10^3/ul (0.83-4.51); Lymphocyte % 15.2 % (19-41); Mean Corp Hgb Conc 32.1 g/dL (32-36); Mean Corpuscular Hgb 32.8 pg (27.0-32.0); Mean Corpuscular Volume 102.2 fL (81-99); Mean Platelet Vol. 10.6 fl (6.2-12.0); Monocyte# 1.18 X10^3/uL; Monocyte% 6.8 % (0-10); NRBC Flagged by Analyzer 0 % (0-5); Neutrophil # 12.73 X10^3/uL (2.7-7.7); Neutrophil % 73.3 % (47-70); Platelet Count 423 K/mm3 (150-450); RBC Distribution Width CV 13.4 % (11.6-14.6); RBC Distribution Width SD 50.3 fl (35.1-43.9); Red Blood Count 3.69 M/mm3 (4.2-5.4); White Blood Count 17.4 K/mm3 (4.4-11.0)
[2021-02-18 13:21] LABS: Vitamin D,25 Hydroxy 40.9 ng/mL
[2021-02-18 13:25] LABS: ALB/GLOB Ratio 0.8 RATIO (0.9-2.4); AST(SGOT) 27 U/L (15-37); Alanine Aminotransfer ALT/SGPT 40 U/L (13-56); Albumin, Serum 3.3 g/dL (3.2-5.0); Alkaline Phosphatase 108 U/L (45-117); Anion Gap 11 (5-15); BUN 25 mg/dL (7-18); BUN/Creat Ratio 17.5 RATIO (10-20); Calcium,Total 8.9 mg/dL (8.5-10.1); Chloride 85 mmol/L (98-107); Creatinine, Serum 1.43 mg/dL (0.55-1.02); EST Glomerular Filtration Rate 38 mL/min (>60); Est Glom Filt Rate - Afr Amer 46 mL/min (>60); Globulin 4.1 g/dL (2.2-4.2); Glucose 155 mg/dL (74-106); Potassium 3.8 mmol/L (3.5-5.1); Protein, Total 7.4 g/dL (6.4-8.2); Sodium Level 126 mmol/L (136-145)
== END ==
LOC: POLAB3 11:15 → RAD 12:25
PROVIDERS: PCP Family Medicine Geriatric Medicine; Referring Provider Family Medicine Geriatric Medicine; Visit Provider Family Medicine Geriatric Medicine
DX: E03.9 Hypothyroidism, unspecified (principal); E11.65 Type 2 diabetes mellitus with hyperglycemia; E55.9 Vitamin D deficiency, unspecified; I10 Essential (primary) hypertension; R11.0 Nausea; N39.0 Urinary tract infection, site not specified
CPT/HCPCS: 36415; 74019; 80053; 82306; 84443; 85025; 87086; 87088

== ENCOUNTER → 2021-02-19 10:09 | Outpatient (CLI) | payer MEDICARE, SELFPAY ==
[2021-01-24 16:38] VITALS: BMI 33.5
[2021-02-19 10:55] LABS: Anion Gap 5 (5-15); BUN 22 mg/dL (7-18); BUN/Creat Ratio 19.5 RATIO (10-20); Calcium,Total 8.8 mg/dL (8.5-10.1); Chloride 92 mmol/L (98-107); Creatinine, Serum 1.13 mg/dL (0.55-1.02); EST Glomerular Filtration Rate 50 mL/min (>60); Est Glom Filt Rate - Afr Amer 60 mL/min (>60); Glucose 159 mg/dL (74-106); Potassium 3.3 mmol/L (3.5-5.1); Sodium Level 131 mmol/L (136-145)
== END ==
PROVIDERS: PCP Family Medicine Geriatric Medicine; Referring Provider Family Medicine Geriatric Medicine; Visit Provider Family Medicine Geriatric Medicine
DX: E87.1 Hypo-osmolality and hyponatremia (principal)
CPT/HCPCS: 36415; 80048

== ENCOUNTER → 2021-02-25 09:41 | Outpatient (CLI) | payer MEDICARE, SELFPAY ==
[2021-02-25 13:05] LABS: Anion Gap 8 (5-15); BUN 8 mg/dL (7-18); BUN/Creat Ratio 11.6 RATIO (10-20); Calcium,Total 8.9 mg/dL (8.5-10.1); Chloride 102 mmol/L (98-107); Creatinine, Serum 0.69 mg/dL (0.55-1.02); EST Glomerular Filtration Rate 88 mL/min (>60); Est Glom Filt Rate - Afr Amer 106 mL/min (>60); Glucose 151 mg/dL (74-106); Potassium 3.9 mmol/L (3.5-5.1); Sodium Level 138 mmol/L (136-145)
== END ==
PROVIDERS: PCP Family Medicine Geriatric Medicine; Visit Provider Family Medicine Geriatric Medicine
DX: E87.1 Hypo-osmolality and hyponatremia (principal)
CPT/HCPCS: 36415; 80048

== ENCOUNTER → 2021-03-02 16:35 | Outpatient (CLI) | payer MEDICARE, SELFPAY ==
[2021-03-02 17:25] LABS: Anion Gap 6 (5-15); BUN 10 mg/dL (7-18); BUN/Creat Ratio 12.8 RATIO (10-20); Calcium,Total 8.7 mg/dL (8.5-10.1); Chloride 102 mmol/L (98-107); Creatinine, Serum 0.78 mg/dL (0.55-1.02); EST Glomerular Filtration Rate 76 mL/min (>60); Est Glom Filt Rate - Afr Amer 92 mL/min (>60); Glucose 131 mg/dL (74-106); Potassium 3.3 mmol/L (3.5-5.1); Sodium Level 138 mmol/L (136-145)
== END ==
PROVIDERS: PCP Family Medicine Geriatric Medicine; Visit Provider Family Medicine Geriatric Medicine
DX: I10 Essential (primary) hypertension (principal)
CPT/HCPCS: 36415; 80048

== ENCOUNTER 2021-03-05 13:19 | Emergency (ER) | payer MEDICARE, SELFPAY ==
[2021-03-05 13:20] VITALS: BP 92/60; PULSE 72; RESP 18; TEMP 35.8; O2SAT 98; BMI 32.1
[2021-03-05 14:10] VITALS: BP 159/84; PULSE 76; RESP 15; TEMP 36.8; O2SAT 99
--- NOTE | 2021-03-05 14:23 | CT_ITS ---
STUDY: CT ABDOMEN AND PELVIS WITH CONTRAST REASON FOR EXAM: Female, 75 years old. Nausea and vomiting. RADIATION DOSAGE (If Supplied By Facility): CTDIvol = ( 21.96 ) mGy, DLP = ( 887.14 ) mGycm TECHNIQUE: Transaxial images were obtained from the dome of the diaphragm to the symphysis pubis with oral contrast. 100mL Isovue-300 was administered. Sagittal and coronal images were reconstructed. Individualized dose optimization techniques were used for this CT. COMPARISON: Abdomen in, 02/18/2021. CT of the abdomen and pelvis, 10/08/2020. FINDINGS: Dependent changes at both lung bases. The visualized portions of the heart are within normal limits. Extensive coronary artery calcifications. Mild fatty infiltration of the liver without focal mass. Normal gallbladder and extrahepatic biliary system. Normal spleen. Normal pancreas. Normal bilateral adrenal glands. Normal right kidney. Normal left kidney. Normal visualized ureters. Normal visualized stomach. Normal small intestine. Normal colon. There is non-visualization of the appendix. There is diffuse atherosclerotic calcification of the abdominal aorta, without a demonstrated aneurysm. Normal inferior vena cava. Normal retroperitoneum. The urinary bladder is poorly distended but otherwise grossly unremarkable. Unremarkable vaginal cuff. There are phleboliths in pelvis without lymphadenopathy. No free air or free fluid is seen within the peritoneal cavity. Normal abdominal wall. No osseous changes. CT/Abdomen/Pelvis WITH Contrast IMPRESSION: No acute intra-abdominal or pelvic process. There is no major interval change when compared to prior study Electronically Signed: Miguel Angel Nava DO at 16:20 EDT Tel [phone], Service support ,
--- NOTE | 2021-03-05 14:31 | EX.ED.DYSGE1 ---
HPI History of Present Illness Chief Complaint: Nausea/Vomiting/Diarrhea Informant: patient Onset/Context/Timing Onset: Days (2) Context: Gradual Onset Timing: Continuous Quality: Vomiting Worsened by: Nothing Relieved by: Nothing Narrative Narrative: Patient presents with nausea, vomiting, and diarrhea that began 2 days ago. Patient states she has only been able to keep down soda crackers. Patient denies any hematemesis or coffee-ground emesis. Patient states she started having diarrhea yesterday. Patient denies any melena or hematochezia. Patient dates her diarrhea is watery. Patient states she has been taking Pepto-Bismol with minimal relief. Patient denies any dysuria or hematuria. Patient denies any abdominal pain. Patient denies any fevers but admits to some subjective chills. Patient does admit to a cough with some clear sputum. Patient states she has had her COVID-19 vaccine. [facility] Medical History Asthma Asthma B12 deficiency Benign hypertension Cataract Cataracts, bilateral Chronic back pain Debility Diabetes GERD (gastroesophageal reflux disease) History of colon polyps HLD (hyperlipidemia) HTN (hypertension) Hyperlipidemia Hypertension Hypothyroidism Hypothyroidism Kidney disease Muscle tenderness Non-smoker RLS (restless legs syndrome) Home Medications metoprolol succinate 50 mg PO DAILY 05/19/20 [History Last Taken 01/19/21] albuterol sulfate 1 - 2 puff INHALATION Q6H PRN PRN 06/02/20 [History Last Taken 12/26/20] levothyroxine 125 mcg tablet 125 mcg PO DAILY tab 06/09/20 [History Last Taken 01/19/21] fluticasone furoate-vilanterol 1 ea IH DAILY 06/17/20 [History Last Taken 01/19/21] metformin 500 mg PO DAILY 12/27/20 [History Last Taken 01/19/21] Xarelto 10 mg PO DAILY@0600 21 Days #21 tab 02/13/21 [Rx Last Taken Unknown] acetaminophen 1,000 mg PO Q6H PRN PRN #0 tab 02/13/21 [Rx Last Taken Unknown] baclofen 10 mg PO TID 30 Days #90 tab 02/13/21 [Rx Last Taken 01/19/21] furosemide 80 mg PO BIDLX 30 Days #60 tab 02/13/21 [Rx Last Taken Unknown] potassium chloride [Klor-Con M20] 40 meq PO BIDCM 30 Days #120 tab 02/13/21 [Rx Last Taken Unknown] ondansetron 4 mg PO Q8H PRN PRN #10 tab 03/05/21 [Rx Last Taken Unknown] Allergy/AdvReac Type Severity Reaction Status Date / Time clindamycin Allergy Mild rash Verified 03/05/21 13:22 codeine phosphate AdvReac Severe Nausea Verified 03/05/21 13:22 [From Tylenol-Codeine #3] Family History Mother Heart valve disorder Hypertension Heart disease Father Pneumococcal pneumonia CVA (cerebral vascular accident) Heart disease Myocardial infarction Surgical History History of appendectomy History of bilateral carpal tunnel release History of carpal tunnel release History of colonoscopy (~2012) History of hysterectomy History of loop recorder history of pain stimulator History of total right hip replacement Hx of tonsillectomy Social History household members: none housing: apartment number of children: 2 current occupational status: retired current occupational exposures/hazards: No pets and animals: No leisure activities: exercise and volunteer work Smoking Status: Never smoker ROS ROS ED Constitutional Constitutional ED: Denies chills or fever(s) Eyes Eyes: Denies blurry vision or change in vision ENT ENT ED: Denies rhinorrhea or sore throat Cardiovascular Cardiovascular: Denies chest pain or palpitations Respiratory/Chest Respiratory/Chest: Reports cough and sputum; Denies dyspnea Gastrointestinal Gastrointestinal: Reports diarrhea, nausea and vomiting; Denies abdominal pain or melena Genitourinary Genitourinary ED: Denies dysuria or hematuria Musculoskeletal Musculoskeletal: Denies back pain or neck pain Integumentary Denies abscess or rash Neurologic Neurologic: Denies headache(s) or weakness Allergic/Immunologic Allergic/Immunologic ED: Denies mouth swelling or urticaria EXAM Physical Exam Const Vital Signs: 03/05/21 13:20 03/05/21 14:10 03/05/21 15:11 Temperature 96.5 F L 98.2 F 97.9 F Temperature Source Temporal Oral Oral Pulse Rate 72 76 98 Respiratory Rate 18 15 18 Blood Pressure 92/60 159/84 H 124/91 H Blood Pressure Mean 70 109 102 Pulse Ox 98 99 96 Oxygen Delivery Method Room Air Room Air Room Air 03/05/21 17:18 Temperature Temperature Source Pulse Rate 81 Respiratory Rate 19 H Blood Pressure 172/85 H Blood Pressure Mean 114 Pulse Ox 97 Oxygen Delivery Method Room Air Positive well nourished and well developed General Appearance ED: well developed HEENT Reports moist mucous membranes Neck supple and no JVD Resp normal respiratory effort and clear to auscultation bilaterally Cardio regular rate, regular rhythm and no murmurs GI normal to inspection, nondistended, normoactive bowel sounds and non-tender Palpation: soft Extremity normal to inspection General Extremety ED: Negative for edema or tenderness General Extremity: Negative for edema Neuro oriented x3, CN's II-XII intact bilaterally and no sensory deficits noted Sensorium / Orientation: alert Motor Exam: strength 5/5 throughout Psych mental status grossly normal Skin no rashes or lesions noted MDM MDM MDM Narrative Medical decision making narrative: Patient was given IV fluids and Zofran initially. Patient was given a dose of loperamide. CBC was within normal limits. Comprehensive metabolic profile was essentially within normal limits. Urinalysis does not show any evidence of urinary tract infection. CT scan of the abdomen pelvis was obtained. There is no acute abnormality noted. This was interpreted by the radiologist and reviewed by myself. COVID-19 rapid antigen was obtained and was negative. Patient was still complaining of diarrhea on reevaluation. Patient was advised of her findings. Patient was given a prescription for Zofran. Patient was instructed to use Imodium [id number] as needed for diarrhea. Patient was instructed to follow-up with her primary care physician in 3 to 5 days. Patient understood and was agreeable with the plan. All questions were answered. Lab Data Attestation: I reviewed the patient's lab results. Labs: Laboratory Results - last 24 hr 03/05/21 03/05/21 03/05/21 14:06 14:06 15:30 WBC 10.4 RBC 3.90 L Hgb 12.8 Hct 40.4 MCV 103.6 H MCH 32.8 H MCHC 31.7 L RDW Std Deviation 53.9 H RDW Coeff of Taran 14.0 Plt Count 420 MPV 10.6 Immature Gran % (Auto) 0.600 Neut % (Auto) 72.3 H Lymph % (Auto) 15.8 L Barnwell % (Auto) 8.4 Eos % (Auto) 1.9 Baso % (Auto) 1.0 Absolute Neuts (auto) 7.5 Absolute Lymphs (auto) 1.64 Nucleated RBC % 0 Sodium 137 Potassium 3.4 L Chloride 101 Carbon Dioxide 28.0 Anion Gap 8 BUN 8 Creatinine 0.74 Estim Creat Clear Calc 40.68 Est GFR (MDRD) Af Amer 98 Est GFR (MDRD) Non-Af 81 BUN/Creatinine Ratio 10.8 Glucose 131 H Calcium 9.3 Total Bilirubin 0.40 AST 19 ALT 27 Alkaline Phosphatase 87 Total Protein 7.5 Albumin 3.3 Globulin 4.2 Albumin/Globulin Ratio 0.8 L Urine Color Yellow Urine Clarity Sl. Cloudy Urine pH 6.0 Ur Specific [place] 1.010 Urine Protein Negative Urine Glucose (UA) Normal Urine Ketones Negative Urine Occult Blood Negative Urine Nitrite Negative Urine Bilirubin Negative Urine Urobilinogen Normal Ur Leukocyte Esterase 25 H Urine RBC 0 SEEN Urine WBC 0-5 SEEN Ur Squamous Epith Cells 10-25 SEEN Urine Bacteria 0 SEEN Urine Mucus 0 SEEN Radiography Diagnostic Testing: Radiology Impression Abdomen/Pelvis CT 03/05/21 14:23 IMPRESSION: No acute intra-abdominal or pelvic process. There is no major interval change when compared to prior study Electronically Signed: Miguel Angel Nava DO at 16:20 EDT Tel [phone], Service support , Discharge Plan Triage Chief Complaint: Nausea/Vomiting/Diarrhea ED Provider: Dusty Gann Dx/Rx/DC Orders Clinical Impression: Nausea vomiting and diarrhea Instructions: ED Diet for Vomiting or ..., ED Gastroenteritis, Viral (Adult) Prescriptions: New ondansetron [ondansetron] 4 MG tablet 4 mg PO Q8H PRN PRN (Reason: Nausea) Qty: 10 RF: 0 No Action levothyroxine 125 mcg tablet 125 mcg PO DAILY RF: 0 metoprolol succinate 50 MG tablet extended release 24 hr 50 mg PO DAILY RF: 0 albuterol sulfate 1 PUFF inhaler 1 - 2 puff INHALATION Q6H PRN PRN (Reason: Sob &/Or Wheezing) RF: 0 fluticasone furoate-vilanterol 1 EACH blister with device 1 ea IH DAILY RF: 0 metformin 500 mg Tablet Extended Release 24 Hr 500 mg PO DAILY RF: 0 acetaminophen 500 mg Tablet 1,000 mg PO Q6H PRN PRN (Reason: Pain Score 1-3) Qty: 0 RF: 0 potassium chloride [Klor-Con M20] 20 mEq Tablet,Er Particles/Crystals 40 meq PO BIDCM 30 Days Qty: 120 RF: 0 furosemide 80 mg Tablet 80 mg PO BIDLX 30 Days Qty: 60 RF: 0 baclofen 10 mg tablet 10 mg PO TID 30 Days Qty: 90 RF: 0 Xarelto 10 mg tablet 10 mg PO DAILY@0600 21 Days Qty: 21 RF: 0 Primary Care Provider: Jaime Culver Chi Referrals: Jaime Culver Chi, MD [Primary Care Provider] - 3-5 Days Disposition Disposition: Home, Self Care
[2021-03-05 14:33] LABS: Absolute Lymphocyte Count 1.64 X10^3/uL (0.83-4.51); Absolute Neutrophil Count 7.5 X10^3/uL (2.0-7.7); Eosinophils% 1.9 % (0-5); Hematocrit 40.4 % (37-47); Hemoglobin 12.8 g/dL (12.0-15.0); Lymphocyte # 1.64 X10^3/ul (0.83-4.51); Lymphocyte % 15.8 % (19-41); Mean Corp Hgb Conc 31.7 g/dL (32-36); Mean Corpuscular Hgb 32.8 pg (27.0-32.0); Mean Corpuscular Volume 103.6 fL (81-99); Mean Platelet Vol. 10.6 fl (6.2-12.0); Monocyte# 0.87 X10^3/uL; Monocyte% 8.4 % (0-10); NRBC Flagged by Analyzer 0 % (0-5); Neutrophil # 7.51 X10^3/uL (2.7-7.7); Neutrophil % 72.3 % (47-70); Platelet Count 420 K/mm3 (150-450); RBC Distribution Width SD 53.9 fl (35.1-43.9); White Blood Count 10.4 K/mm3 (4.4-11.0)
[2021-03-05] MEDS: Ondansetron 4 MG/2 ML Vial IV (14:37)
[2021-03-05 14:46] LABS: ALB/GLOB Ratio 0.8 RATIO (0.9-2.4); AST(SGOT) 19 U/L (15-37); Alanine Aminotransfer ALT/SGPT 27 U/L (13-56); Albumin, Serum 3.3 g/dL (3.2-5.0); Alkaline Phosphatase 87 U/L (45-117); Anion Gap 8 (5-15); BUN 8 mg/dL (7-18); BUN/Creat Ratio 10.8 RATIO (10-20); Calcium,Total 9.3 mg/dL (8.5-10.1); Chloride 101 mmol/L (98-107); Creatinine, Serum 0.74 mg/dL (0.55-1.02); EST Glomerular Filtration Rate 81 mL/min (>60); Est Glom Filt Rate - Afr Amer 98 mL/min (>60); Estimated Creatinine Clearance 40.68 ml/min; Globulin 4.2 g/dL (2.2-4.2); Glucose 131 mg/dL (74-106); Potassium 3.4 mmol/L (3.5-5.1); Protein, Total 7.5 g/dL (6.4-8.2); Sodium Level 137 mmol/L (136-145)
[2021-03-05 15:11] VITALS: BP 124/91; PULSE 98; RESP 18; TEMP 36.6; O2SAT 96
[2021-03-05 15:31] LABS: Bacteria 0 SEEN /hpf (None Seen); Mucous, Urine 0 SEEN /hpf (<or=2+); Red Blood Cells-Urine 0 SEEN /hpf (0-5)
[2021-03-05 15:35] LABS: Color, Urine Yellow (Yellow); Glucose, Dipstick Normal (Normal); Ketone-Dipstick Negative (Negative); Leukocyte Esterase-Dipstick 25 /ul (Negative); Nitrite-Dipstick Negative (Negative); Occult Blood-Urine Negative /ul (Negative); Protein-Dipstick Negative (Negative); Urine Bilirubin Dipstick Negative (Negative); Urine Clarity Sl. Cloudy (Clear); Urine Urobilinogen Normal (Normal)
[2021-03-05 15:41] LABS: Squamous Epithelial Cells - UA 10-25 SEEN /hpf (5-10); White Blood Cells 0-5 SEEN /hpf (0-5)
[2021-03-05] MEDS: Loperamide 2 MG Capsule PO (16:55)
[2021-03-05 17:18] VITALS: BP 172/85; PULSE 81; RESP 19; O2SAT 97
[2021-03-05 17:46] VITALS: BP 123/79; PULSE 84; RESP 20; O2SAT 97
--- NOTE | 2021-03-05 17:46 | ED.RN ---
THIS NURSE REVIEWED D/C INSTRUCTIONS WITH PT. PT VERBALIZED UNDERSTANDING OF INSTRUCTIONS. IV D/C. IV CATHETER INTACT. PT TOLERATED WELL. PT DENIES FURTHER NEEDS OR QUESTIONS AT THIS TIME.
== END 2021-03-05 17:47 | disposition home or self-care (01) ==
PROVIDERS: Emergency Provider Emergency Medicine; PCP Family Medicine Geriatric Medicine
DX: R11.2 Nausea with vomiting, unspecified (principal); R19.7 Diarrhea, unspecified; K21.9 Gastro-esophageal reflux disease without esophagitis; E78.5 Hyperlipidemia, unspecified; I10 Essential (primary) hypertension; E03.9 Hypothyroidism, unspecified; M54.9 Dorsalgia, unspecified; G89.29 Other chronic pain; E11.36 Type 2 diabetes mellitus with diabetic cataract; J45.909 Unspecified asthma, uncomplicated; Z79.01 Long term (current) use of anticoagulants; Z79.84 Long term (current) use of oral hypoglycemic drugs; Z87.19 Personal history of other diseases of the digestive system
CPT/HCPCS: 74177; 80053; 81001; 85025; 87426; 96361; 96374; 99285; J7040; Q9967; A4216; J2405

== ENCOUNTER → 2021-03-19 10:43 | Outpatient (CLI) | payer MEDICARE, SELFPAY ==
[2021-03-19 11:13] LABS: Absolute Lymphocyte Count 1.47 X10^3/uL (0.83-4.51); Absolute Neutrophil Count 6.2 X10^3/uL (2.0-7.7); Basophil# 0.09 X10^3/uL; Eosinophil# 0.24 X10^3/uL; Eosinophils% 2.7 % (0-5); Hematocrit 36.9 % (37-47); Hemoglobin 11.3 g/dL (12.0-15.0); Lymphocyte # 1.47 X10^3/ul (0.83-4.51); Lymphocyte % 16.5 % (19-41); Mean Corp Hgb Conc 30.6 g/dL (32-36); Mean Corpuscular Hgb 32.3 pg (27.0-32.0); Mean Corpuscular Volume 105.4 fL (81-99); Mean Platelet Vol. 10.6 fl (6.2-12.0); Monocyte# 0.82 X10^3/uL; Monocyte% 9.2 % (0-10); NRBC Flagged by Analyzer 0 % (0-5); Neutrophil # 6.22 X10^3/uL (2.7-7.7); Platelet Count 383 K/mm3 (150-450); RBC Distribution Width CV 13.8 % (11.6-14.6); RBC Distribution Width SD 52.9 fl (35.1-43.9); White Blood Count 8.9 K/mm3 (4.4-11.0)
[2021-03-19 11:38] LABS: Anion Gap 5 (5-15); BUN 15 mg/dL (7-18); BUN/Creat Ratio 22.1 RATIO (10-20); Calcium,Total 8.9 mg/dL (8.5-10.1); Chloride 105 mmol/L (98-107); Creatinine, Serum 0.68 mg/dL (0.55-1.02); EST Glomerular Filtration Rate 89 mL/min (>60); Est Glom Filt Rate - Afr Amer 108 mL/min (>60); Glucose 161 mg/dL (74-106); Potassium 4.5 mmol/L (3.5-5.1); Sodium Level 138 mmol/L (136-145)
== END ==
PROVIDERS: PCP Family Medicine Geriatric Medicine; Referring Provider Family Medicine Geriatric Medicine; Visit Provider Family Medicine Geriatric Medicine
DX: R60.9 Edema, unspecified (principal)
CPT/HCPCS: 36415; 80048; 85025

== ENCOUNTER → 2021-03-24 08:54 | Outpatient (CLI) | payer MEDICARE, SELFPAY ==
[2021-03-24 10:42] LABS: Anion Gap 5 (5-15); BUN 14 mg/dL (7-18); BUN/Creat Ratio 15.8 RATIO (10-20); Calcium,Total 9.9 mg/dL (8.5-10.1); Chloride 103 mmol/L (98-107); Creatinine, Serum 0.89 mg/dL (0.55-1.02); EST Glomerular Filtration Rate 66 mL/min (>60); Est Glom Filt Rate - Afr Amer 79 mL/min (>60); Glucose 168 mg/dL (74-106); Potassium 4.8 mmol/L (3.5-5.1); Sodium Level 137 mmol/L (136-145)
== END ==
PROVIDERS: PCP Family Medicine Geriatric Medicine; Referring Provider Family Medicine Geriatric Medicine; Visit Provider Family Medicine Geriatric Medicine
DX: R60.9 Edema, unspecified (principal)
CPT/HCPCS: 36415; 80048

== ENCOUNTER → 2021-04-17 11:39 | Outpatient (CLI) | payer MEDICARE, SELFPAY ==
[2021-04-17 15:16] LABS: Absolute Lymphocyte Count 1.85 X10^3/uL (0.83-4.51); Absolute Neutrophil Count 9.2 X10^3/uL (2.0-7.7); Basophil# 0.08 X10^3/uL; Basophil% 0.6 % (0-1); Eosinophil# 0.26 X10^3/uL; Eosinophils% 2.1 % (0-5); Hematocrit 42.2 % (37-47); Lymphocyte # 1.85 X10^3/ul (0.83-4.51); Lymphocyte % 14.6 % (19-41); Mean Corp Hgb Conc 30.8 g/dL (32-36); Mean Corpuscular Hgb 31.3 pg (27.0-32.0); Mean Corpuscular Volume 101.4 fL (81-99); Mean Platelet Vol. 12.1 fl (6.2-12.0); Monocyte# 1.12 X10^3/uL; Monocyte% 8.9 % (0-10); NRBC Flagged by Analyzer 0 % (0-5); Neutrophil # 9.22 X10^3/uL (2.7-7.7); Platelet Count 319 K/mm3 (150-450); RBC Distribution Width CV 15.1 % (11.6-14.6); RBC Distribution Width SD 56.3 fl (35.1-43.9); Red Blood Count 4.16 M/mm3 (4.2-5.4); White Blood Count 12.6 K/mm3 (4.4-11.0)
[2021-04-17 15:37] LABS: Anion Gap 6 (5-15); BUN 29 mg/dL (7-18); BUN/Creat Ratio 27.9 RATIO (10-20); Calcium,Total 9.7 mg/dL (8.5-10.1); Chloride 103 mmol/L (98-107); Cholesterol 270 mg/dL (200); Creatinine, Serum 1.04 mg/dL (0.55-1.02); EST Glomerular Filtration Rate 55 mL/min (>60); Est Glom Filt Rate - Afr Amer 66 mL/min (>60); Glucose 120 mg/dL (74-106); High Density Lipoprotein 42 mg/dL; Potassium 4.8 mmol/L (3.5-5.1); Sodium Level 136 mmol/L (136-145); Thyroid Stim Hormone (TSH) 1.26 uIU/mL (0.358-3.74); Triglycerides 222 mg/dL; Very Low Density Lipoprotein 44 mg/dL (5-40)
[2021-04-17 15:40] LABS: Hemoglobin A1c 7.3 % (3.8-5.6)
== END ==
PROVIDERS: PCP Family Medicine; Referring Provider Family Medicine; Visit Provider Family Medicine
DX: E11.9 Type 2 diabetes mellitus without complications (principal); R53.83 Other fatigue
CPT/HCPCS: 36415; 80048; 80061; 83036; 84443; 85025

== ENCOUNTER → 2021-05-15 17:23 | Outpatient (CLI) | payer MEDICARE, SELFPAY ==
--- NOTE | 2021-05-15 17:42 | MRI_ITS ---
STUDY: MRI LEFT SHOULDER REASON FOR EXAM: Female, 75 years old. IMPINGEMENT SYNDROME,LIMITED ROM TECHNIQUE: Standardized fat and water weighted pulse sequences were obtained in all 3 orthogonal planes. COMPARISON: None. FINDINGS: There are large full-thickness tears of the supraspinatus and infraspinatus tendons. The supraspinatus tendon is retracted to the level of the biceps labral complex, 4.63 cm from the greater tuberosity. The humeral head is high riding abutting the undersurface of the acromium. A small to moderate size glenohumeral joint effusion is also present. Normal subscapularis tendon. Normal teres minor tendon. There is moderate muscular atrophy of the supraspinatus muscle. There is moderate muscular atrophy of the infraspinatus muscle. Normal subscapularis muscle. Normal teres minor muscle. Normal humeral head and visualized proximal humerus. Normal biceps labral complex. Normal intracapsular long biceps tendon. There is labral degeneration with blunting of the natividad, but there is no demonstrated discrete labral tear. Normal capsulo- ligamentous complex. Normal rotator interval. There is mild osteoarthritis of the acromioclavicular articulation. There is a Type II morphology (curved), with a neutral orientation. There is fluid distention of the subacromial-subdeltoid bursa, which communicates with the glenohumeral joint, through a rotator cuff tear. Normal visualized coracohumeral and coracoacromial ligaments. Normal quadrilateral space. Normal axillary space. Normal deltoid muscle. Normal trapezius muscle. MRI/Upper Ext Joint Only(Routine) IMPRESSION: 1. There are large full-thickness tears of the supraspinatus and infraspinatus tendons. The supraspinatus tendon is retracted to the level of the biceps labral complex, 4.63 cm from the greater tuberosity. The humeral head is high riding abutting the undersurface of the acromium. A small to moderate size glenohumeral joint effusion is also present. Electronically Signed: Juanpablo Sidhu MD at 23:54 EDT , Service support ,
== END ==
PROVIDERS: PCP Family Medicine; Referring Provider Physician Assistant Surgical; Visit Provider Physician Assistant Surgical
DX: M75.42 Impingement syndrome of left shoulder (principal)
CPT/HCPCS: 73221

== ENCOUNTER 2021-05-29 15:59 | Inpatient (IN) | payer MEDICARE, SELFPAY ==
[2021-05-29 16:00] VITALS: BP 200/73; PULSE 80; RESP 16; TEMP 36.4; O2SAT 96
--- NOTE | 2021-05-29 17:14 | EDS_ITS ---
HPI History of Present Illness Chief Complaint: Wound Detail of Chief Complaint: Wound to right ankle Informant: patient Narrative Narrative: Patient presents to the emergency department with a wound to her right ankle that she has from an injury that occurred about 10 days ago. Patient has been seeing her primary care physician Dr. Oscar Adhikari who initially repaired the wound with sutures and then remove the sutures. Patient was started on doxycycline 3 days ago for concern about infection. Today was seen in the office and she continues to have drainage from the wound and increased pain and increased erythema there was concern that she would need admitted for IV antibiotics. Patient denies any fevers or chills or sweats. Patient is a diabetic. Patient states that initially she injured the ankle when she was taking some sort of a heater out that she dropped and it scraped against the medial aspect of her ankle. Prior similar symptoms: No PFSH PFSH Medical History Asthma Asthma B12 deficiency Benign hypertension Cataract Cataracts, bilateral Chronic back pain Debility Diabetes GERD (gastroesophageal reflux disease) History of colon polyps HLD (hyperlipidemia) HTN (hypertension) Hyperlipidemia Hypertension Hypothyroidism Hypothyroidism Kidney disease Muscle tenderness Non-smoker RLS (restless legs syndrome) Home Medications metoprolol succinate 50 mg PO DAILY 05/19/20 [History Last Taken 01/19/21] albuterol sulfate 1 - 2 puff INHALATION Q6H PRN PRN 06/02/20 [History Last Taken 12/26/20] levothyroxine 125 mcg tablet 125 mcg PO DAILY tab 06/09/20 [History Last Taken 01/19/21] fluticasone furoate-vilanterol 1 ea IH DAILY 06/17/20 [History Last Taken 01/19/21] metformin 500 mg PO DAILY 12/27/20 [History Last Taken 01/19/21] Xarelto 10 mg PO DAILY@0600 21 Days #21 tab 02/13/21 [Rx Last Taken Unknown] acetaminophen 1,000 mg PO Q6H PRN PRN #0 tab 02/13/21 [Rx Last Taken Unknown] baclofen 10 mg PO TID 30 Days #90 tab 02/13/21 [Rx Last Taken 01/19/21] furosemide 80 mg PO BIDLX 30 Days #60 tab 02/13/21 [Rx Last Taken Unknown] potassium chloride [Klor-Con M20] 40 meq PO BIDCM 30 Days #120 tab 02/13/21 [Rx Last Taken Unknown] ondansetron 4 mg PO Q8H PRN PRN #10 tab 03/05/21 [Rx Last Taken Unknown] Allergy/AdvReac Type Severity Reaction Status Date / Time clindamycin Allergy Mild rash Verified 05/29/21 16:02 codeine phosphate AdvReac Severe Nausea Verified 05/29/21 16:02 [From Tylenol-Codeine #3] Family History Mother Heart valve disorder Hypertension Heart disease Father Pneumococcal pneumonia CVA (cerebral vascular accident) Heart disease Myocardial infarction Surgical History History of appendectomy History of bilateral carpal tunnel release History of carpal tunnel release History of colonoscopy (~2012) History of hysterectomy History of loop recorder history of pain stimulator History of total right hip replacement Hx of tonsillectomy Social History household members: none housing: apartment number of children: 2 current occupational status: retired current occupational exposures/hazards: No pets and animals: No leisure activities: exercise and volunteer work Smoking Status: Never smoker ROS ROS ED Constitutional Constitutional ED: Reports systems reviewed and no addt'l complaints, except as documented; Denies body ache(s), change in weight or chills Eyes Eyes: Denies acute decrease in peripheral vision, change in vision, double vision or loss of vision ENT ENT ED: Reports none; Denies ear pain, lip swelling, loss taste/smell, neck pain, otalgia or sore throat Cardiovascular Cardiovascular: Reports none; Denies abdominal pain, chest pain with activity, leg edema, lightheadedness, palpitations, rapid heart rate or syncope Respiratory/Chest Respiratory/Chest: Reports none; Denies change in mental status, dry cough, dyspnea, hemoptysis, shortness of breath at rest or shortness of breath with exe rtion Gastrointestinal Gastrointestinal: Reports none; Denies abdominal pain, change in stool character , diarrhea, hematemesis, hematochezia, melena, rectal bleeding or vomiting Genitourinary Genitourinary ED: Reports none; Denies abdominal discomfort, anuria, dysuria, genital pain or polyuria Musculoskeletal Musculoskeletal: Reports none and other Details: Wound to right ankle ; Denies arthralgias, back pain, difficulty walking, extremity pain, muscle weakness or myalgias Integumentary Reports none; Denies abscess or rash Neurologic Neurologic: Reports none; Denies abnormal gait, confusion, focal weakness, frequent falls, headache(s), loss of vision, numbness, paresthesias, radicular pain, vertigo or weakness Psychiatric Psychiatric: Reports systems reviewed and no addt'l complaints, except as documented and none; Denies behavioral changes, confusion, difficulty concentrating, hallucinations, suicidal ideation, tactile hallucinations or visual hallucinations Endocrine Endocrinology: Denies none, cold intolerance, excessive sweating, fatigue or heat intolerance Hematologic/Lymphatic Hematologic/Lymphatic: Reports none; Denies anemia, easy bleeding or easy bruising Allergic/Immunologic Allergic/Immunologic ED: Denies as per HPI, none, lip swelling, mouth swelling, throat swelling, tongue swelling or hives EXAM Physical Exam Const Vital Signs: 05/29/21 16:00 05/29/21 19:06 Temperature 97.6 F L Temperature Source Temporal Pulse Rate 80 Respiratory Rate 16 Blood Pressure 200/73 H 188/75 H Blood Pressure Mean 115 112 Pulse Ox 96 95 Oxygen Delivery Method Room Air Positive well nourished and well developed General Appearance ED: well developed and NAD HEENT Reports TM's clear and moist mucous membranes normocephalic and atraumatic; Negative for trauma or tenderness Tympanic Membrane ED: Yes TM's clear Eyes PERRL and EOMs intact bilaterally General Eye ED: Negative for pale conjunctiva or scleral icterus Neck no lymphadenopathy, supple and no JVD General: Negative for tenderness Chest Wall inspection of chest normal and palpation of chest normal Chest: Negative for tenderness Resp normal respiratory effort and clear to auscultation bilaterally Effort and Inspection: Negative for respiratory distress or pain with movement Auscultation: Negative for rhonchi, wheezes or diminished lung sounds Cardio regular rate, regular rhythm, S1 normal heart sound, S2 normal heart sound and no murmurs Peripheral Pulses: pulses 2+ throughout GI normal to inspection, nondistended, normoactive bowel sounds, soft to palpation, non-tender, non-distended and no masses Back/Spine no CVA tenderness and no thoracic nor lumbar tenderness Extremity normal to inspection Extremity Narrative: There is a V-shaped wound to the medial aspect of the right ankle measuring approximately 5 cm in total length. There is granulation tissue within the wound but small amount of blood oozing from it. Wound is very tender to palpation and somewhat boggy. There is some faint surrounding erythema and cellulitic changes extending proximally towards the knee. Neurovascular intact distally. General Extremety ED: Negative for edema General Extremity: Negative for edema Neuro oriented x3, CN's II-XII intact bilaterally, no sensory deficits noted and gait normal Sensorium / Orientation: awake, alert, oriented to person, oriented to place and oriented to time Motor Exam: strength 5/5 throughout and strength abnormal Psych mental status grossly normal Skin no rashes or lesions noted and no wounds MDM MDM MDM Narrative Medical decision making narrative: IV line established on arrival. Patient was started empirically on Unasyn and vancomycin IV. Wound culture was ordered. Patient was noted to have an elevated white blood cell count of 13.8 and a normal lactate of 1.3. X-ray was obtained and I do not appreciate any foreign body or osseous destruction over the wound. Case will be discussed with hospitalist evaluate patient for admission for wound infection with failed outpatient therapy. Lab Data Attestation: I reviewed the patient's lab results. Labs: Laboratory Results - last 24 hr 05/29/21 05/29/21 05/29/21 17:25 17:25 17:25 WBC 13.8 H RBC 3.68 L Hgb 12.1 Hct 37.0 MCV 100.5 H MCH 32.9 H MCHC 32.7 RDW Std Deviation 60.1 H RDW Coeff of Taran 16.2 H Plt Count 220 MPV 11.2 Immature Gran % (Auto) 0.500 Neut % (Auto) 74.2 H Lymph % (Auto) 14.3 L Stewart % (Auto) 8.8 Eos % (Auto) 1.6 Baso % (Auto) 0.6 Absolute Neuts (auto) 10.2 H Absolute Lymphs (auto) 1.98 Nucleated RBC % 0 Sodium 139 Potassium 3.5 Chloride 105 Carbon Dioxide 28.0 Anion Gap 6 BUN 17 Creatinine 0.92 Estim Creat Clear Calc 44.22 Est GFR (MDRD) Af Amer 76 Est GFR (MDRD) Non-Af 63 BUN/Creatinine Ratio 18.5 Glucose 128 H Lactic Acid 1.3 Calcium 8.8 Radiography Diagnostic Testing: Clinical Impression(s) from Imaging Studies Ankle X-Ray 05/29/21 17:42 IMPRESSION: Soft tissue swelling without foreign body. There is no underlying acute osseous or articular abnormality. Electronically Signed: Miguel Angel Nava DO at 18:42 EST Tel [phone], Service support , Three-view x-rays of left ankle obtained interpreted by myself of soft tissue swelling over the medial portion of the ankle without evidence of foreign body or osseous destruction. Discharge Plan Dx/Rx/DC Orders Clinical Impression: Cellulitis of right ankle Disposition Disposition: Acute Care Hospital [facility]
[2021-05-29 17:33] LABS: Absolute Lymphocyte Count 1.98 X10^3/uL (0.83-4.51); Absolute Neutrophil Count 10.2 X10^3/uL (2.0-7.7); Basophil# 0.08 X10^3/uL; Basophil% 0.6 % (0-1); Eosinophil# 0.22 X10^3/uL; Eosinophils% 1.6 % (0-5); Hemoglobin 12.1 g/dL (12.0-15.0); Lymphocyte # 1.98 X10^3/ul (0.83-4.51); Lymphocyte % 14.3 % (19-41); Mean Corp Hgb Conc 32.7 g/dL (32-36); Mean Corpuscular Hgb 32.9 pg (27.0-32.0); Mean Corpuscular Volume 100.5 fL (81-99); Mean Platelet Vol. 11.2 fl (6.2-12.0); Monocyte# 1.21 X10^3/uL; Monocyte% 8.8 % (0-10); NRBC Flagged by Analyzer 0 % (0-5); Neutrophil # 10.24 X10^3/uL (2.7-7.7); Neutrophil % 74.2 % (47-70); Platelet Count 220 K/mm3 (150-450); RBC Distribution Width CV 16.2 % (11.6-14.6); RBC Distribution Width SD 60.1 fl (35.1-43.9); Red Blood Count 3.68 M/mm3 (4.2-5.4); White Blood Count 13.8 K/mm3 (4.4-11.0)
--- NOTE | 2021-05-29 17:42 | RAD_ITS ---
STUDY: X-RAY - RIGHT ANKLE REASON FOR EXAM: Female, 75 years old. Persistent bleeding from ankle wound. Laceration to the right ankle 10 days ago. Sutures removed 3 days ago. Increasing pain. TECHNIQUE: 3 view(s) of the ankle. COMPARISON: None. FINDINGS: Normal visualized distal tibia and fibula. Normal medial and lateral malleoli. Normal tibiotalar articulation and ankle mortise. Normal visualized talus. There is a plantar spur along the underside but otherwise normal calcaneus. The visualized subtalar, talonavicular, calcaneocuboid and tarsal articulations are normal. Mild generalized soft tissue swelling over the ankle. There are vascular calcifications along the plantar aspect of the foot. RAD/Ankle min 3 Views IMPRESSION: Soft tissue swelling without foreign body. There is no underlying acute osseous or articular abnormality. Electronically Signed: Miguel Angel Nava DO at 18:42 EST Tel [phone], Service support ,
[2021-05-29 17:56] LABS: Anion Gap 6 (5-15); BUN 17 mg/dL (7-18); BUN/Creat Ratio 18.5 RATIO (10-20); Calcium,Total 8.8 mg/dL (8.5-10.1); Chloride 105 mmol/L (98-107); Creatinine, Serum 0.92 mg/dL (0.55-1.02); EST Glomerular Filtration Rate 63 mL/min (>60); Est Glom Filt Rate - Afr Amer 76 mL/min (>60); Estimated Creatinine Clearance 44.22 ml/min; Glucose 128 mg/dL (74-106); Potassium 3.5 mmol/L (3.5-5.1); Sodium Level 139 mmol/L (136-145)
[2021-05-29 18:18] LABS: Lactic Acid 1.3 mmol/L (0.4-1.9)
--- NOTE | 2021-05-29 18:59 | PCM.HP.STD ---
HPI - General General Date of Admission: 05/29/21 Date of Service: 05/29/21 Chief Complaint: R Ankle wound, recent laceration, not healing. HPI Narrative The patient is a 75 y/o F w/ PMHx: Obesity, Asthma, HTN, HLD, Hypothyroidism, RLS, GERD, Diabetes mellitus type II, Chronic anemia/B12 deficiency who presents to the [facility] ED on 05/29/21 with history of laceration to her ankle ~ 10 days prior with sutures outpatient per PCP with doxycycline started ~ 3 days prior with worsening redness, pain, edema, difficulty ambulating with increasing fatigue and malaise prompting referral to the ED. She currently notes her pain is primarily with ambulation at times or with any palpation of the wound itself, rated 10 out of 10 with these attempts or intervention. She specifically denies any recent fevers or chills associated with his onset work-up in the ED included T 91.6, heart rate 80, BP 200/73, respiratory rate 16, 96% on room air, CBC with WC 13.8, hemoglobin 12.1, platelet 220 with left shift, BMP with glucose 128 otherwise not marked appearing, lactic acid 1.3, plain film of the right ankle with soft tissue swelling without any foreign body with no underlying acute osseous or articular abnormality. In the ED patient ministered Unasyn and vancomycin. [facility] Medical History (Updated 05/29/21 @ 18:[address] Magan Carroll, ) Asthma Asthma B12 deficiency Benign hypertension Cataract Cataracts, bilateral Chronic back pain Debility Diabetes GERD (gastroesophageal reflux disease) History of colon polyps HLD (hyperlipidemia) HTN (hypertension) Hyperlipidemia Hypertension Hypothyroidism Hypothyroidism Kidney disease Muscle tenderness Non-smoker RLS (restless legs syndrome) Home Medications metoprolol succinate 50 mg PO DAILY 05/19/20 [History Last Taken 01/19/21] albuterol sulfate 1 - 2 puff INHALATION Q6H PRN PRN 06/02/20 [History Last Taken 12/26/20] levothyroxine 125 mcg tablet 125 mcg PO DAILY tab 06/09/20 [History Last Taken 01/19/21] fluticasone furoate-vilanterol 1 ea IH DAILY 06/17/20 [History Last Taken 01/19/21] metformin 500 mg PO DAILY 12/27/20 [History Last Taken 01/19/21] acetaminophen 1,000 mg PO Q6H PRN PRN #0 tab 02/13/21 [Rx Last Taken Unknown] baclofen 10 mg PO TID 30 Days #90 tab 02/13/21 [Rx Last Taken 01/19/21] furosemide 80 mg PO BIDLX 30 Days #60 tab 02/13/21 [Rx Last Taken Unknown] potassium chloride [Klor-Con M20] 40 meq PO BIDCM 30 Days #120 tab 02/13/21 [Rx Last Taken Unknown] cetirizine mg 05/29/21 [History Last Taken Unknown] mirtazapine mg 05/29/21 [History Last Taken Unknown] olmesartan 05/29/21 [History Last Taken Unknown] pantoprazole PO 05/29/21 [History Last Taken Unknown] Allergy/AdvReac Type Severity Reaction Status Date / Time clindamycin Allergy Mild rash Verified 05/29/21 16:02 codeine phosphate AdvReac Severe Nausea Verified 05/29/21 16:02 [From Tylenol-Codeine #3] Family History Mother Heart valve disorder Hypertension Heart disease Father Pneumococcal pneumonia CVA (cerebral vascular accident) Heart disease Myocardial infarction Surgical History (Updated 05/29/21 @ 19:[address] Melida Stewart MD) History of appendectomy History of bilateral carpal tunnel release History of carpal tunnel release History of colonoscopy (~2012) History of hysterectomy History of loop recorder history of pain stimulator History of total right hip replacement Hx of tonsillectomy Status post right hip replacement Social History household members: none housing: apartment number of children: 2 current occupational status: retired current occupational exposures/hazards: No pets and animals: No leisure activities: exercise and volunteer work Smoking Status: Never smoker ROS ROS Narrative Admission Review of Systems: CONSTITUTIONAL: No weight loss, fever, chills, + weakness or fatigue. HEENT: Eyes: No visual loss, blurred vision, double vision or yellow sclerae. Ears, Nose, Throat: No hearing loss, sneezing, congestion, runny nose or sore throat. SKIN: + Right ankle laceration following injury, purulent discharge, periwound erythema. CARDIOVASCULAR: No chest pain, chest pressure or chest discomfort, palpitations, edema, orthopnea, syncopal events. RESPIRATORY: No shortness of breath, cough or sputum, wheezing, hemoptysis. GASTROINTESTINAL: No anorexia, nausea, vomiting or diarrhea, abdominal pain, melena, BRBPR. GENITOURINARY: No dysuria, frequency, urgency or retention. NEUROLOGICAL: No headache, dizziness, syncope, paralysis, ataxia, numbness or tingling in the extremities, focal weakness, change in bowel or bladder control, seizure. MUSCULOSKELETAL: + muscle, back pain, joint pain or stiffness. HEMATOLOGIC: + anemia, bleeding or bruising. LYMPHATICS: No enlarged nodes. No history of splenectomy. PSYCHIATRIC: + history of depression or anxiety. ENDOCRINOLOGIC: No reports of sweating, cold or heat intolerance. No polyuria or polydipsia. ALLERGIES: + history of asthma, hives, eczema or rhinitis. Vital Signs Vital Signs Vital Signs: 05/29/21 16:00 Temperature 97.6 F L Temperature Source Temporal Pulse Rate 80 Respiratory Rate 16 Blood Pressure 200/73 H Blood Pressure Mean 115 Pulse Ox 96 Oxygen Delivery Method Room Air Weight Weight: 175 lb Body Mass Index (BMI) 30.0 Physical Exam Narrative Physical Examination: General: Awake, alert, oriented x 3 and cooperative, seated upright in the ED bed in no apparent distress. Skin: Normal color, normal turgor, no icterus, no cyanosis except noted right medial upper ankle region laceration with nonhealing wound purulent discharge, periwound erythema, warm to touch surrounding and mildly edematous. HEENT: AT/NC, EOMI, PERRLA, MMM, no carotid bruits or JVD noted. Lungs: Mildly decreased, greater bases, appropriate effort, no rales, ronchi or wheezing. Heart: Regular rate and rhythm; no gallop, rub audible. Abdomen: Soft, obese, NTTP, ND, normal BS, no HSM. Extremities: No cyanosis, no clubbing, see skin above. Neurological: Patient awake, alert, oriented as noted, cognitive function intact; pupils equally reactive to light and accommodation, cranial nerves II-XII grossly normal, moving all 4 extremities although reticent for the right lower extremity given acute wound, strength accordingly moderately global decrease. Psychiatric: Affect appears mildly fatigued and uncomfortable, no acute evidence of depressive or anxiety feelings. Results Lab / Micro Data Result Diagrams: 05/29/21 17:25 05/29/21 17:25 Labs: Laboratory Results - last 24 hr 05/29/21 17:25: WBC 13.8 H, RBC 3.68 L, Hgb 12.1, Hct 37.0, MCV 100.5 H, MCH 32.9 H, MCHC 32.7, RDW Std Deviation 60.1 H, RDW Coeff of Taran 16.2 H, Plt Count 220, MPV 11.2, Immature Gran % (Auto) 0.500, Neut % (Auto) 74.2 H, Lymph % (Auto) 14.3 L, [place] % (Auto) 8.8, Eos % (Auto) 1.6, Baso % (Auto) 0.6, Absolute Neuts (auto) 10.2 H, Absolute Lymphs (auto) 1.98, Nucleated RBC % 0 05/29/21 17:25: Sodium 139, Potassium 3.5, Chloride 105, Carbon Dioxide 28.0, Anion Gap 6, BUN 17, Creatinine 0.92, Estim Creat Clear Calc 44.22, Est GFR (MDRD) Af Amer 76, Est GFR (MDRD) Non-Af 63, BUN/Creatinine Ratio 18.5, Glucose 128 H, Calcium 8.8 05/29/21 17:25: Lactic Acid 1.3 Radiology Impression Ankle X-Ray 05/29/21 17:42 IMPRESSION: Soft tissue swelling without foreign body. There is no underlying acute osseous or articular abnormality. Electronically Signed: Miguel Angel Nava DO at 18:42 EST Tel [phone], Service support , Assessment & Plan Assessment/Plan (1) Cellulitis of right ankle: PLAN: The patient is a 75 y/o F w/ PMHx: Obesity, Asthma, HTN, HLD, Hypothyroidism, RLS, GERD, Diabetes mellitus type II, Chronic anemia/B12 deficiency who presents to the [facility] ED on 05/29/21 with history of laceration to her ankle ~ 10 days prior with sutures outpatient per PCP with doxycycline started ~ 3 days prior with worsening redness, pain, edema, difficulty ambulating with increasing fatigue and malaise prompting referral to the ED. 1. RLE Ankle Wound s/p laceration with Acute Cellulitis, Failed outpatient management/abx therapy: Will admit to [facility], maintain on IV vancomycin and zosyn pending ED Wound Cx and will also obtain Wound MRSA PCR, plan repeat CBC in AM, continue affected extremity elevation above heart when seated and in bed, monitor erythema outline with VS checks, podiatry consulted and pending, NPO after midnight in case of intervention needs with podiatry, PRN pain regimen, fall precautions, PT/OT/CM consultations for discharge planning. 2. Diabetes mellitus type II: Hemoglobin A1c requested, nutrition consult for education and teaching given above #1, hold oral home regimen, ADA diet, accu checks w/ ISS. 3. Chronic back pain, DDD: We will continue patient home baclofen regimen, frequent position changes encouraged, fall precautions. 4. Hypertension: Continue home regimen including Lasix, metoprolol noted currently on list. BP in the ED elevated and noted on previous admission patient had also additionally been on Norvasc and olmesartan, awaiting clarification. Given significantly elevated blood pressure may necessitate re-addition. PRN hydralazine. 5. Hyperlipidemia: Currently not on statin per list, will await clarification, defer to outpatient. 6. RLS: Patient previously on Requip regimen, currently not on list, possibly secondary to baclofen transition. 7. Chronic asthma: Hold home inhalers, transition to ATC budesonide therapy as well as PRN albuterol, encourage head of bed and I-S. 8. Allergic rhinitis: We will continue patient home Zyrtec, Atrovent, Singulair regimen once clarified. 9. Hypothyroidism: Continue home synthroid regimen. 10. GERD with history of PUD: We will continue patient home famotidine regimen. 11. DVT prophylaxis: SCDs, hold chemoprophylaxis 12. CODE status: Discussed CODE status at length including difference between FULL code, DNR-CCA and DNR-CC status. Following discussions about the differences in these status, requested DNR-CCA, no intubation status. Advanced Care Planning Face to Face Time: 16 minutes. Charges/Coding Visit Charges Inpatient E&M: 60849 Init Hosp L3 Procedures Hospitalists Procedures: 34752 Advncd Care Plan 30 Min
[2021-05-29 19:06] VITALS: BP 188/75; O2SAT 95
[2021-05-29 19:31] VITALS: BP 188/78; PULSE 75; RESP 18; TEMP 36.4; O2SAT 97
[2021-05-29 19:36] LABS: Erythrocyte Sedimentation Rate 28 mm/hr (0-30)
[2021-05-29 19:55] LABS: CRP 3.64 mg/L (0.0-3.0); Magnesium 1.7 mg/dL (1.6-2.6)
[2021-05-29 20:43] VITALS: BMI 29.5
[2021-05-29 20:45] VITALS: BP 167/57; PULSE 80; RESP 16; TEMP 36.8; O2SAT 96
[2021-05-29] MEDS: 0.9% Normal Saline 1,000 ML 100 ML IV (22:45)
[2021-05-29] MEDS: 0.9% Saline Lock 10 ML Syringe IV (22:45)
[2021-05-29] MEDS: Famotidine 20 MG Tablet PO (22:48)
--- NOTE | 2021-05-29 23:11 | PCM.RX.CS ---
Consult Pharmacy has been consulted to manage selected antiobiotic: Vancomycin Type of Consult: New start Labs: Sodium 139 mmol/L (136-145) 05/29/21 17:25 Potassium 3.5 mmol/L (3.5-5.1) 05/29/21 17:25 Chloride 105 mmol/L (98-107) 05/29/21 17:25 Carbon Dioxide 28.0 mmol/L (21.0-32.0) 05/29/21 17:25 Anion Gap 6 (5-15) 05/29/21 17:25 BUN 17 mg/dL (7-18) 05/29/21 17:25 Creatinine 0.92 mg/dL (0.55-1.02) 05/29/21 17:25 Est GFR (MDRD) Af Amer 76 mL/min (>60) 05/29/21 17:25 Est GFR (MDRD) Non-Af 63 mL/min (>60) 05/29/21 17:25 BUN/Creatinine Ratio 18.5 RATIO (10-20) 05/29/21 17:25 Glucose 128 mg/dL (74-106) H 05/29/21 17:25 Weight used for dosin kg Estimated Creatinine Clearance: 51.8 Goal Trough: 15-20 mcg/mL Pharmacy Plan for Drug Dosing: Pharmacy Service will continue to monitor and adjust dosing as required. Medications Vancomycin HCl 750 mg/ Sodium (Chloride) 265 mls @ 250 mls/hr IV Q12H DICK Discontinued Medications Vancomycin HCl 1,250 mg/ (Sodium Chloride) 275 mls @ 167 mls/hr IV X1 ONE Stop: 05/29/21 19:38 Last Admin: 05/29/21 18:31 Dose: 167 mls/hr Documented by: Follow-Up Labs: Trough Vancomycin Labs to be done on [date and time ordered]: 05/31 @ 0600
[2021-05-29] MEDS: Insulin Lispro 100 UNIT/ML INSULN.PEN SC (23:23)
[2021-05-29] MEDS: MELATONIN 3 MG TABLET PO (23:41)
[2021-05-29] MEDS: Acetaminophen 325 MG Tablet 650 MG PO (23:41)
[2021-05-29] MEDS: oxyCODONE 5 MG Tablet PO (23:41)
[2021-05-30] VITALS (12 sets, daily range): BP systolic 126–162; BP diastolic 50–82; PULSE 71–88; RESP 12–22; TEMP 36.5–36.8; O2SAT 94–98
[2021-05-30 00:30] LABS: Bedside Glucose 194 mg/dL (70-110)
[2021-05-30] MEDS: FLUCONAZOLE 150 MG TABLET PO (00:58)
[2021-05-30] MEDS: hydrALAZINE 20 MG/ML Vial 10 MG IV ×2 (03:17→15:12)
[2021-05-30] MEDS: Albuterol 2.5 MG/3 ML VIAL.NEB. INHALATION ×2 (03:35→16:26)
--- NOTE | 2021-05-30 05:00 | EKG12_ITS ---
Test Reason : PRE OP Blood Pressure : / mmHG Vent. Rate : 082 BPM Atrial Rate : 082 BPM P-R Int : 150 ms QRS Dur : 094 ms QT Int : 394 ms P-R-T Axes : 065 -16 020 degrees QTc Int : 460 ms Normal sinus rhythm Left ventricular hypertrophy with repolarization abnormality Abnormal ECG When compared with ECG of 19-JAN-2021 20:29, No significant change was found Confirmed by CHRIS SAUCEDA, MARQUES ([id number]), editorial project manager DOROTEO HERNANDEZ ([id number]) on 06/02/2021 1:59:12 PM Referred By: ESHA Confirmed By:MARQUES PEREZ MD
[2021-05-30] MEDS: Levothyroxine 125 MCG Tablet PO (05:30)
[2021-05-30] MEDS: 0.9% Saline Lock 10 ML Syringe IV ×3 (05:50→15:13)
[2021-05-30 06:45] LABS: Bedside Glucose 120 mg/dL (70-110)
[2021-05-30] MEDS: Budesonide Respules 0.5 MG/2 ML AMPUL.NEB. INHALATION ×2 (06:52→19:40)
--- NOTE | 2021-05-30 07:45 | CON.PCM_ITS ---
Assessment & Plan Assessment/Plan (1) Non-pressure chronic ulcer of unspecified part of right lower leg with fat layer exposed: (2) Cellulitis of right lower limb: (3) Localized edema: (4) Diabetes mellitus: PLAN: I reviewed and discussed her case today. It appears she had a prior laceration now that is infected. She started on Unasyn and vancomycin. She has leukocytosis at time of admission which is now resolved. She remains afebrile with vital signs stable. There is apparent clinical cellulitis without purulence or deep tissue involvement. I would like to see how she responds to IV antibiotics and do not recommend surgical intervention today. The ulcer was debrided and a wound care plan was initiated. Debridement was performed today below. The following work up and care recommendations were made: Dressing: Hydrogel and gauze Wash: Soap and water Tissue growth optimization: Offload/edema management: To reduce edema with Gulshan wrap and elevation Vascular: She has palpable pulses Infection: Cultures were obtained including aerobic, anaerobic and MRSA PCR with results pending. She is currently on broad-spectrum antibiotics and these will be adjusted according to the culture results. Pain: Pain medication ordered Host factors: Her multiple comorbidities are noted. Medical management per hospitalist services noted and appreciated. Nutritional supplementation will also be ordered to optimize healing. Procedure- Location: right lower leg Grade: 1 Excisional debridement performed Anesthesia: 5% lidocaine plain Debridement layer: subcutaneous Amount of debridement: 100% Instrumentation used: 15 blade Tissue debrided: fibrous, devitalized subcutaneous, biofilm, slough Exposed tissue: fat layer Bleeding: mild Hemostasis controlled: pressure The patient tolerated the procedure well I answered all the patient's questions. Thank you for the consultation. I will continue to follow her while in house. Estrella Guerrero DPM, [facility] [phone] HPI Consult Data Date of Consult: 05/30/21 HPI Narrative Reason for Consultation: Right leg wound with infection HPI Narrative: JERRELL BAUMAN, is a 75 F with significant past medical history of obesity, diabetes, asthma, hypertension, hyperlipidemia, hypothyroidism, restless leg syndrome, GERD, chronic anemia and vitamin B12 deficiency sustained a skin tear to her lower leg about 10 days ago in which she presented to her primary care physician who tried to repair this with sutures. Doxycycline was started at that time. Subsequently about 3 days ago this became worse with redness pain and swelling. She denies having any known foreign body. She developed fatigue and had difficulty walking. She presented to the emergency room with infected wound and diffuse erythema to the right leg. She denies rest paresthesias or claudication or prior lower extremity wound. [facility] Medical History (Updated 05/30/21 @ 09:[address] Estrella Guerrero, [place]) Anxiety Asthma Asthma B12 deficiency Benign hypertension Bleeding tendency Cataract Cataracts, bilateral Chronic back pain Chronic pain Debility Diabetes GERD (gastroesophageal reflux disease) High cholesterol History of colon polyps History of stress test HLD (hyperlipidemia) HTN (hypertension) Hyperlipidemia Hypertension Hypothyroidism Hypothyroidism Injury of head and neck Kidney disease Muscle tenderness Non-smoker Post-menopausal RLS (restless legs syndrome) Scarlet fever Home Medications metoprolol succinate 50 mg PO DAILY 05/19/20 [History Last Taken 01/19/21] albuterol sulfate 1 - 2 puff INHALATION Q6H PRN PRN 06/02/20 [History Last Taken 12/26/20] levothyroxine 125 mcg tablet 125 mcg PO DAILY tab 06/09/20 [History Last Taken 01/19/21] fluticasone furoate-vilanterol 1 ea IH DAILY 06/17/20 [History Last Taken 01/19/21] metformin 500 mg PO DAILY 12/27/20 [History Last Taken 01/19/21] acetaminophen 1,000 mg PO Q6H PRN PRN #0 tab 02/13/21 [Rx Last Taken Unknown] baclofen 10 mg PO QHS 05/29/21 [History Last Taken Unknown] cetirizine 10 mg PO DAILY 05/29/21 [History Last Taken Unknown] furosemide 40 mg PO DAILY 05/29/21 [History Last Taken Unknown] mirtazapine 15 mg PO QHS 05/29/21 [History Last Taken Unknown] olmesartan 20 mg PO DAILY 05/29/21 [History Last Taken Unknown] pantoprazole 40 mg PO DAILY 05/29/21 [History Last Taken Unknown] potassium chloride [Klor-Con M20] 40 meq PO DAILY 05/29/21 [History Last Taken Unknown] Allergy/AdvReac Type Severity Reaction Status Date / Time clindamycin Allergy Mild rash Verified 05/29/21 16:02 codeine phosphate AdvReac Severe Nausea Verified 05/29/21 16:02 [From Tylenol-Codeine #3] Family History Mother Heart valve disorder Hypertension Heart disease Father Pneumococcal pneumonia CVA (cerebral vascular accident) Heart disease Myocardial infarction Surgical History (Updated 05/29/21 @ 19:[address] Melida Stewart MD) History of appendectomy History of bilateral carpal tunnel release History of carpal tunnel release History of colonoscopy (~2012) History of hysterectomy History of loop recorder history of pain stimulator History of total right hip replacement Hx of tonsillectomy Status post right hip replacement Social History household members: none housing: apartment number of children: 2 current occupational status: retired current occupational exposures/hazards: No pets and animals: No leisure activities: exercise and volunteer work Smoking Status: Never smoker ROS Constitutional Constitutional: Reports fatigue; Denies chills or fever(s) Cardiovascular Cardiovascular: Denies chest pain Respiratory/Chest Respiratory/Chest: Denies dyspnea Gastrointestinal Gastrointestinal: Denies diarrhea or vomiting Musculoskeletal Musculoskeletal: Denies numbness or tingling Integumentary Integumentary: Reports erythema and wounds Neurologic Neurologic: Reports restless legs Psychiatric Psychiatric: Reports depression Hematologic/Lymphatic Hematologic/Lymphatic: Reports anemia and easy bleeding Allergic/Immunologic Allergic/Immunologic: Reports asthma Physical Exam Const alert and oriented x3 General Appearance: cooperative HEENT normocephalic Extremity Extremity Narrative: Calf tenderness with wound palpation 2 out of 4 PT and DP pulses bilateral Muscle wasting noted Lower extremity edema with telangiectasias bilateral General Extremity: edema and no tenderness to palpation of joints or extremities; Negative for cyanosis Skin Skin Narrative: There is an ulcer skin discontinuity to the medial lower right leg that is consistent with her prior skin tear with a predebridement measurement of 2.3 x 1.4 x 0.1 cm and post debridement 2.4 x 1.5 x 0.1 cm. There is a granular and fibrous base. There is no deep probing, necrosis, odor or purulence on expression. The erythema is extending in a diffuse manner to the medial and posterior leg extending several inches in each direction. There is no adjacent bogginess or fluctuance on palpation. The compartments of this limb remain soft to palpate Neuro Neuro Narrative: Epicritic sensation is intact via light touch to bilateral lower extremities Psych cooperative and affect normal Lab / Micro Data Result Diagrams: 05/30/21 07:40 05/30/21 07:40 Labs: Laboratory Results - last 24 hr 05/29/21 17:25: WBC 13.8 H, RBC 3.68 L, Hgb 12.1, Hct 37.0, MCV 100.5 H, MCH 32.9 H, MCHC 32.7, RDW Std Deviation 60.1 H, RDW Coeff of Taran 16.2 H, Plt Count 220, MPV 11.2, Immature Gran % (Auto) 0.500, Neut % (Auto) 74.2 H, Lymph % (Auto) 14.3 L, Garrett % (Auto) 8.8, Eos % (Auto) 1.6, Baso % (Auto) 0.6, Absolute Neuts (auto) 10.2 H, Absolute Lymphs (auto) 1.98, Nucleated RBC % 0 05/29/21 17:25: Sodium 139, Potassium 3.5, Chloride 105, Carbon Dioxide 28.0, Anion Gap 6, BUN 17, Creatinine 0.92, Estim Creat Clear Calc 44.22, Est GFR (MDRD) Af Amer 76, Est GFR (MDRD) Non-Af 63, BUN/Creatinine Ratio 18.5, Glucose 128 H, Calcium 8.8 05/29/21 17:25: Lactic Acid 1.3 05/29/21 17:25: ESR 28 05/29/21 17:25: Magnesium 1.7, C-React Prot Ext Range 3.64 H 05/29/21 23:12: POC Glucose 194 H 05/30/21 06:35: POC Glucose 120 H Radiology Impression Ankle X-Ray 05/29/21 17:42 IMPRESSION: Soft tissue swelling without foreign body. There is no underlying acute osseous or articular abnormality. Electronically Signed: Miguel Angel aNva DO at 18:42 EST Tel [phone], Service support ,
[2021-05-30 08:24] LABS: Absolute Neutrophil Count 6.1 X10^3/uL (2.0-7.7); Basophil# 0.06 X10^3/uL; Basophil% 0.7 % (0-1); Eosinophil# 0.17 X10^3/uL; Eosinophils% 1.9 % (0-5); Hematocrit 35.7 % (37-47); Hemoglobin 11.4 g/dL (12.0-15.0); Lymphocyte % 20.3 % (19-41); Mean Corp Hgb Conc 31.9 g/dL (32-36); Mean Corpuscular Hgb 31.7 pg (27.0-32.0); Mean Corpuscular Volume 99.2 fL (81-99); Mean Platelet Vol. 11.5 fl (6.2-12.0); Monocyte# 0.71 X10^3/uL; NRBC Flagged by Analyzer 0 % (0-5); Neutrophil # 6.08 X10^3/uL (2.7-7.7); Neutrophil % 68.6 % (47-70); Platelet Count 224 K/mm3 (150-450); RBC Distribution Width CV 16.3 % (11.6-14.6); RBC Distribution Width SD 59.5 fl (35.1-43.9); White Blood Count 8.9 K/mm3 (4.4-11.0)
[2021-05-30 08:34] LABS: Prothrombin Time (Protime)PT. 12.5 SECONDS (11.7-14.9)
[2021-05-30 08:35] LABS: Partial Thromboplast Time 27.9 Seconds (24.1-36.2)
[2021-05-30 08:44] LABS: ALB/GLOB Ratio 0.7 RATIO (0.9-2.4); AST(SGOT) 15 U/L (15-37); Alanine Aminotransfer ALT/SGPT 26 U/L (13-56); Albumin, Serum 2.6 g/dL (3.2-5.0); Alkaline Phosphatase 76 U/L (45-117); Anion Gap 4 (5-15); BUN 13 mg/dL (7-18); BUN/Creat Ratio 17.2 RATIO (10-20); Bilirubin, Direct 0.16 mg/dL (0.00-0.30); Calcium,Total 8.3 mg/dL (8.5-10.1); Chloride 109 mmol/L (98-107); Creatinine, Serum 0.76 mg/dL (0.55-1.02); EST Glomerular Filtration Rate 79 mL/min (>60); Est Glom Filt Rate - Afr Amer 95 mL/min (>60); Estimated Creatinine Clearance 40.68 ml/min; Globulin 3.5 g/dL (2.2-4.2); Glucose 124 mg/dL (74-106); Potassium 3.3 mmol/L (3.5-5.1); Protein, Total 6.1 g/dL (6.4-8.2); Sodium Level 142 mmol/L (136-145); Thyroid Stim Hormone (TSH) 0.83 uIU/mL (0.358-3.74)
[2021-05-30] MEDS: Morphine 2 MG/ML Syringe IV ×2 (08:46→20:04)
[2021-05-30 08:54] LABS: Hemoglobin A1c 7.2 % (3.8-5.6)
[2021-05-30] MEDS: 0.9% Normal Saline 1,000 ML 100 ML IV ×2 (10:34→21:57)
[2021-05-30] MEDS: Metoprolol(XL)Succ 50 MG Tablet PO (10:35)
[2021-05-30] MEDS: Furosemide 80 MG Tablet PO ×2 (10:35→18:05)
[2021-05-30] MEDS: Famotidine 20 MG Tablet PO ×2 (10:35→22:00)
--- NOTE | 2021-05-30 11:27 | CASEMGMT ---
ANITA CAMARA assessment: Face to Face with patient for initial transition planning/care coordination assessment. ANITA CAMARA introduced self and role at [facility], pt voices understanding and consents to assessment. Pt is sitting up in bed in no distress on room air. Pt is A/Ox4 and answers all questions appropriately. Care providers, pharmacy, and demographics verified. Presentation: Sent by PCP for persistent bleeding to right ankle wound Admitting dx: Right ankle wound, cellulitis PCP: Onofre Specialists: Lash[place], ENT; anita Freeman Preferred Pharmacy: [facility] Insurance: [employer] Prescription Benefit: [employer] Living Will/HPOA: Pt has LW/HPOA and is aware that they are on file at [facility]. Pt's daughter, Gabrielle Ruiz, is HPOA. LNOK: Gabrielle Ruiz, daughter/HPOA Living Arrangements: Pt lives alone in 1 story apartment with no steps and states no concerns at home. Pt is independent with ADL's. Transportation: Pt drives self and states no transportation concerns. DME/HHC: Pt has the following DME: cane, WW, rollator, grab bars, and shower chair. Pt states no need for any further DME. Pt has had HHC in past and has been to [facility] s/p hip fx. Pt states no concerns with going home at time of discharge. Pt is retired. Pt states does not smoke cigarettes or drink ETOH. Pt voices no further concerns/needs. CM to follow for any further discharge planning/needs. Advised pt to ask for CM if any further questions/concerns/needs arise, voices understanding. Pt Goal: Home Plan[place] ANITA CAMARA
--- NOTE | 2021-05-30 11:34 | PCM.PN.HOSP ---
Documented by User: Bettie Batres NP-C 05/30/21 12:25 Subjective Subjective Patient seen and examined. Patient states that she is having increased amount of pain due to Dr. Guerrero just debriding the wound. Nurse at bedside, pain medication administered. Objective Data Objective Data Vital Signs: Vital Signs Temp Pulse Resp BP Pulse Ox 98.2 F 81 18 152/82 H 98 05/30/21 08:39 05/30/21 10:35 05/30/21 08:39 05/30/21 10:35 05/30/21 08:39 Oxygen Delivery Method Room Air Weight: 171 lb 15.369 oz Body Mass Index (BMI) 29.5 Intake & Output: Intake and Output for Last 24 Hours 05/28/21 05/29/21 05/30/21 23:59 23:59 23:59 Intake Total 389.5 / 1549.5 1930.67 / 1930.67 Balance 389.5 / 1549.5 1930.67 / 1930.67 Lab / Micro Data Result Diagrams: 05/30/21 07:40 05/30/21 07:40 Labs: Laboratory Results - last 24 hr 05/29/21 17:25: WBC 13.8 H, RBC 3.68 L, Hgb 12.1, Hct 37.0, MCV 100.5 H, MCH 32.9 H, MCHC 32.7, RDW Std Deviation 60.1 H, RDW Coeff of Taran 16.2 H, Plt Count 220, MPV 11.2, Immature Gran % (Auto) 0.500, Neut % (Auto) 74.2 H, Lymph % (Auto) 14.3 L, Marshall % (Auto) 8.8, Eos % (Auto) 1.6, Baso % (Auto) 0.6, Absolute Neuts (auto) 10.2 H, Absolute Lymphs (auto) 1.98, Nucleated RBC % 0 05/29/21 17:25: Sodium 139, Potassium 3.5, Chloride 105, Carbon Dioxide 28.0, Anion Gap 6, BUN 17, Creatinine 0.92, Estim Creat Clear Calc 44.22, Est GFR (MDRD) Af Amer 76, Est GFR (MDRD) Non-Af 63, BUN/Creatinine Ratio 18.5, Glucose 128 H, Calcium 8.8 05/29/21 17:25: Lactic Acid 1.3 05/29/21 17:25: ESR 28 05/29/21 17:25: Magnesium 1.7, C-React Prot Ext Range 3.64 H 05/29/21 23:12: POC Glucose 194 H 05/30/21 06:35: POC Glucose 120 H 05/30/21 07:40: WBC 8.9, RBC 3.60 L, Hgb 11.4 L, Hct 35.7 L, MCV 99.2 H, MCH 31.7, MCHC 31.9 L, RDW Std Deviation 59.5 H, RDW Coeff of Taran 16.3 H, Plt Count 224, MPV 11.5, Immature Gran % (Auto) 0.500, Neut % (Auto) 68.6, Lymph % (Auto) 20.3, Marshall % (Auto) 8.0, Eos % (Auto) 1.9, Baso % (Auto) 0.7, Absolute Neuts (auto) 6.1, Absolute Lymphs (auto) 1.80, Nucleated RBC % 0 05/30/21 07:40: Sodium 142, Potassium 3.3 L, Chloride 109 H, Carbon Dioxide 29.0, Anion Gap 4 L, BUN 13, Creatinine 0.76, Estim Creat Clear Calc 40.68, Est GFR (MDRD) Af Amer 95, Est GFR (MDRD) Non-Af 79, BUN/Creatinine Ratio 17.2, Glucose 124 H, Calcium 8.3 L, Total Bilirubin 0.60, Direct Bilirubin 0.16, AST 15, ALT 26, Alkaline Phosphatase 76, Total Protein 6.1 L, Albumin 2.6 L, Globulin 3.5, Albumin/Globulin Ratio 0.7 L, TSH 0.83 05/30/21 07:40: Hemoglobin A1c 7.2 H 05/30/21 07:40: PT 12.5, INR 1.0, APTT 27.9 Radiography Diagnostic Testing: Radiology Impression Ankle X-Ray 05/29/21 17:42 IMPRESSION: Soft tissue swelling without foreign body. There is no underlying acute osseous or articular abnormality. Electronically Signed: Miguel Angel Nava DO at 18:42 EST Tel [phone], Service support , Physical Exam Const alert, oriented x3 and no apparent distress HEENT head/scalp atraumatic Head and Scalp: normocephalic Eyes conjunctivae normal and no scleral icterus Neck full ROM and supple Resp normal respiratory effort, normal air movement and clear to auscultation bilaterally Effort and Inspection: able to speak in complete sentences and symmetric chest movement Cardio regular rate, regular rhythm, S1 normal heart sound and S2 normal heart sound GI normal to inspection, nondistended, normoactive bowel sounds, soft to palpation and non-tender Extremity normal to inspection, full ROM and no clubbing, cyanosis or edema Skin no rashes or lesions noted, no wounds and skin turgor normal Neuro oriented x3, moves all extremities, no focal motor deficits and no sensory deficits noted Sensorium / Orientation: awake and alert Psych affect normal Assessment & Plan Assessment/Plan (1) Cellulitis of right lower limb: PLAN: 1. Cellulitis of the right ankle secondary to laceration -Patient failed outpatient treatment with doxycycline, currently on IV vanc and zosyn -Wound cultures pending -CBC and BMP daily -Elevate right lower extremity -Podiatry following -PT and OT to eval and treat -No surgical intervention planned at this time 2. Diabetes mellitus type 2 -AC at bedtime blood sugars are sliding scale insulin ordered -Diabetic diet ordered -Hemoglobin A1c 7.2 3. Hypertension -Continue patient's current home medication regimen including metoprolol, Lasix, olmesartan -Vital signs per protocol -As needed hydralazine ordered We will continue patient's home medication regimen for chronic diseases including hyperlipidemia, chronic back pain, chronic asthma, hypothyroidism, GERD. DVT prophylaxis-SCDs This patient was seen by LEANN Gutierrez under the supervision of Dr. Berrios. Documented by User: Dr. Karis Berrios MD 05/30/21 16:53 Objective Data Lab / Micro Data Result Diagrams: 05/30/21 07:40 05/30/21 07:40 Charges/Coding Addendum Addendum: Patient seen by Bettie NORIEGA under my supervision Patient seen and examined. She was admitted with complaint of right ankle laceration and resultant wound which had failed outpatient treatment after she had sutures put in by her PCP and was also started on doxycycline. She has had worsening redness and edema as well as difficulty ambulation so she came into the ED. She has been managed for cellulitis of the right lower extremity. Patient seen and examined. Her pain was well controlled. She had no active complaints. She was awaiting evaluation by podiatry. Review of systems otherwise negative. She has remained hemodynamically stable. O/E: Const alert, oriented x3 and no apparent distress HEENT head/scalp atraumatic Head and Scalp: normocephalic Eyes conjunctivae normal and no scleral icterus Neck full ROM and supple Resp normal respiratory effort, normal air movement and clear to auscultation bilaterally Cardio regular rate, regular rhythm, S1 normal heart sound and S2 normal heart sound GI normal to inspection, nondistended, normoactive bowel sounds, soft to palpation and non-tender Extremity normal to inspection, full ROM and no clubbing, cyanosis or edema Skin right ankle wrapped in bandage. Neuro oriented x3, moves all extremities, no focal motor deficits and no sensory deficits noted Sensorium / Orientation: awake and alert Psych affect normal Patient on IV vancomycin and Zosyn. We will continue this. Wound cultures pending. Podiatry evaluated patient and she had bedside debridement done today. PT OT on board. Fall precautions. Continue diabetes medications and insulin sliding scale. Checks AC at bedtime. Rest as per Bettie NORIEGA's note, which I have reviewed and endorsed Visit Charges Inpatient E&M: 21640 Subs Hosp L2
[2021-05-30 12:25] LABS: Bedside Glucose 224 mg/dL (70-110)
[2021-05-30] MEDS: Insulin Lispro 100 UNIT/ML INSULN.PEN SC ×2 (13:18→22:27)
[2021-05-30] MEDS: Juven (unflavored) Packet 1 PACKET PO (16:30)
[2021-05-30] MEDS: Acetaminophen 325 MG Tablet 650 MG PO ×2 (16:42→22:55)
[2021-05-30 16:56] LABS: Bedside Glucose 122 mg/dL (70-110)
[2021-05-30 22:35] LABS: Bedside Glucose 151 mg/dL (70-110)
[2021-05-31] VITALS (8 sets, daily range): BP systolic 124–154; BP diastolic 54–99; PULSE 70–87; RESP 15–20; TEMP 36.5–36.8; O2SAT 93–97
[2021-05-31 06:14] LABS: Absolute Lymphocyte Count 1.69 X10^3/uL (0.83-4.51); Absolute Neutrophil Count 5.2 X10^3/uL (2.0-7.7); Basophil# 0.05 X10^3/uL; Basophil% 0.6 % (0-1); Eosinophil# 0.22 X10^3/uL; Eosinophils% 2.7 % (0-5); Hematocrit 35.3 % (37-47); Hemoglobin 11.4 g/dL (12.0-15.0); Lymphocyte # 1.69 X10^3/ul (0.83-4.51); Mean Corp Hgb Conc 32.3 g/dL (32-36); Mean Corpuscular Hgb 31.8 pg (27.0-32.0); Mean Corpuscular Volume 98.3 fL (81-99); Mean Platelet Vol. 11.4 fl (6.2-12.0); Monocyte# 0.79 X10^3/uL; Monocyte% 9.8 % (0-10); NRBC Flagged by Analyzer 0 % (0-5); Neutrophil # 5.24 X10^3/uL (2.7-7.7); Neutrophil % 65.3 % (47-70); Platelet Count 243 K/mm3 (150-450); RBC Distribution Width CV 16.6 % (11.6-14.6); RBC Distribution Width SD 60.5 fl (35.1-43.9); Red Blood Count 3.59 M/mm3 (4.2-5.4)
[2021-05-31] MEDS: Levothyroxine 125 MCG Tablet PO (06:20)
--- NOTE | 2021-05-31 06:36 | PN_ITS ---
Subjective Subjective This 75-year-old female was seen bedside this morning for follow-up of right lower extremity wound secondary to an initial skin tear with cellulitis. She still has continued pain. She denies fever, chill, nausea, vomiting, odor or new streaking. Objective Data Objective Data Vital Signs: Vital Signs Temp Pulse Resp BP Pulse Ox 97.7 F L 73 15 124/68 H 94 05/31/21 03:00 05/31/21 03:00 05/31/21 03:00 05/31/21 03:00 05/31/21 03:00 Oxygen Delivery Method Room Air Weight: 76.4 kg Body Mass Index (BMI) 29.5 Intake & Output: Intake and Output for Last 24 Hours 05/29/21 05/30/21 05/31/21 23:59 23:59 23:59 Intake Total 389.5 / 1549.5 4660.67 / 4860.67 250 / 250 Balance 389.5 / 1549.5 4660.67 / 4860.67 250 / 250 Lab / Micro Data Result Diagrams: 05/31/21 06:00 05/31/21 06:00 Labs: Laboratory Results - last 24 hr 05/30/21 06:35: POC Glucose 120 H 05/30/21 07:40: WBC 8.9, RBC 3.60 L, Hgb 11.4 L, Hct 35.7 L, MCV 99.2 H, MCH 31.7, MCHC 31.9 L, RDW Std Deviation 59.5 H, RDW Coeff of Taran 16.3 H, Plt Count 224, MPV 11.5, Immature Gran % (Auto) 0.500, Neut % (Auto) 68.6, Lymph % (Auto) 20.3, Upton % (Auto) 8.0, Eos % (Auto) 1.9, Baso % (Auto) 0.7, Absolute Neuts (auto) 6.1, Absolute Lymphs (auto) 1.80, Nucleated RBC % 0 05/30/21 07:40: Sodium 142, Potassium 3.3 L, Chloride 109 H, Carbon Dioxide 29.0, Anion Gap 4 L, BUN 13, Creatinine 0.76, Estim Creat Clear Calc 40.68, Est GFR (MDRD) Af Amer 95, Est GFR (MDRD) Non-Af 79, BUN/Creatinine Ratio 17.2, Glucose 124 H, Calcium 8.3 L, Total Bilirubin 0.60, Direct Bilirubin 0.16, AST 15, ALT 26, Alkaline Phosphatase 76, Total Protein 6.1 L, Albumin 2.6 L, Globulin 3.5, Albumin/Globulin Ratio 0.7 L, TSH 0.83 05/30/21 07:40: Hemoglobin A1c 7.2 H 05/30/21 07:40: PT 12.5, INR 1.0, APTT 27.9 05/30/21 12:21: POC Glucose 224 H 05/30/21 16:24: POC Glucose 122 H 05/30/21 22:26: POC Glucose 151 H 05/31/21 06:00: WBC 8.0, RBC 3.59 L, Hgb 11.4 L, Hct 35.3 L, MCV 98.3, MCH 31.8, MCHC 32.3, RDW Std Deviation 60.5 H, RDW Coeff of Taran 16.6 H, Plt Count 243, MPV 11.4, Immature Gran % (Auto) 0.600, Neut % (Auto) 65.3, Lymph % (Auto) 21.0, Upton % (Auto) 9.8, Eos % (Auto) 2.7, Baso % (Auto) 0.6, Absolute Neuts (auto) 5. 2, Absolute Lymphs (auto) 1.69, Nucleated RBC % 0 Micro: Microbiology 05/29/21 17:20 Skin - Leg Gram Stain - Final 05/29/21 17:20 Skin - Leg Wound Culture - Preliminary Mixed Culture Physical Exam Const alert and oriented x3 General Appearance: cooperative HEENT normocephalic Extremity Extremity Narrative: Calf tenderness with wound palpation 2 out of 4 PT and DP pulses bilateral Muscle wasting noted Lower extremity edema with telangiectasias bilateral General Extremity: edema and no tenderness to palpation of joints or extremities; Negative for cyanosis Skin Skin Narrative: There is an ulcer skin discontinuity to the medial lower right leg that is consistent with her prior skin tear with improved granulation tissue base. There is no deep probing, necrosis, odor or purulence on expression. The erythema is extending in a diffuse manner to the medial and posterior leg extending several inches in each direction. This has decreased intensity and does not extend as far proximal compared to yesterday. There is no adjacent bogginess or fluctuance on palpation. This is less tender with palpation compared to yesterday however still painful to touch. The compartments of this limb remain soft to palpate General Skin Exam: Negative for erythema Neuro Neuro Narrative: Epicritic sensation is intact via light touch to bilateral lower extremities Psych cooperative and affect normal Assessment & Plan Assessment/Plan (1) Non-pressure chronic ulcer of unspecified part of right lower leg with fat layer exposed: (2) Cellulitis of right lower limb: (3) Localized edema: (4) Diabetes mellitus: PLAN: I reviewed and discussed her case today. It appears she had a prior laceration now that is infected. She started on Unasyn and vancomycin. She has leukocytosis at time of admission which is now resolved (13.8 to 8). She remains afebrile with vital signs stable. There is apparent clinical cellulitis without purulence or deep tissue involvement. Her ulcer was debrided yesterday and has improvement in the quality of the base tissue. There is mild improvement noted today. No abscess suspected or need for surgical intervention. The following work up and care recommendations were made: Dressing: Hydrogel and gauze. This was changed this morning. Wash: Soap and water Offload/edema management: To reduce edema with Gulshan wrap and elevation Vascular: She has palpable pulses. I recommend venous Doppler with reflux evaluation in the outpatient setting to assess for venous insufficiency which may be contributing to some of her edema and will affect her healing potential. Infection: Cultures were obtained. She is currently on broad-spectrum antibiotics (vancomycin and Zosyn), and these will be adjusted according to the culture results. There are mixed bacterial growth findings so far and the final is pending. Pain: Pain medication ordered Host factors: Her multiple comorbidities are noted. Medical management per hospitalist services noted and appreciated. Nutritional supplementation was ordered to optimize healing. I answered all the patient's questions. Please call if questions. Estrella Guerrero DPM, [facility] [phone]
[2021-05-31 06:39] LABS: Anion Gap 3 (5-15); BUN 17 mg/dL (7-18); BUN/Creat Ratio 17.2 RATIO (10-20); Calcium,Total 8.3 mg/dL (8.5-10.1); Chloride 104 mmol/L (98-107); Creatinine, Serum 0.99 mg/dL (0.55-1.02); EST Glomerular Filtration Rate 58 mL/min (>60); Est Glom Filt Rate - Afr Amer 70 mL/min (>60); Estimated Creatinine Clearance 41.09 ml/min; Glucose 130 mg/dL (74-106); Potassium 3.3 mmol/L (3.5-5.1); Sodium Level 140 mmol/L (136-145)
[2021-05-31 06:42] LABS: Vancomycin, Trough Level 14.7 ug/mL (5.0-15.0)
[2021-05-31] MEDS: oxyCODONE 5 MG Tablet PO ×3 (06:54→20:27)
[2021-05-31 06:56] LABS: Bedside Glucose 138 mg/dL (70-110)
--- NOTE | 2021-05-31 08:08 | PCM.RX.CS ---
Consult Pharmacy has been consulted to manage selected antiobiotic: Vancomycin Type of Consult: Follow-up Labs: Sodium 140 mmol/L (136-145) 05/31/21 06:00 Potassium 3.3 mmol/L (3.5-5.1) L 05/31/21 06:00 Chloride 104 mmol/L (98-107) 05/31/21 06:00 Carbon Dioxide 33.0 mmol/L (21.0-32.0) H 05/31/21 06:00 Anion Gap 3 (5-15) L 05/31/21 06:00 BUN 17 mg/dL (7-18) 05/31/21 06:00 Creatinine 0.99 mg/dL (0.55-1.02) 05/31/21 06:00 Est GFR (MDRD) Af Amer 70 mL/min (>60) 05/31/21 06:00 Est GFR (MDRD) Non-Af 58 mL/min (>60) L 05/31/21 06:00 BUN/Creatinine Ratio 17.2 RATIO (10-20) 05/31/21 06:00 Glucose 130 mg/dL (74-106) H 05/31/21 06:00 Vancomycin Trough 14.7 ug/mL (5.0-15.0) 05/31/21 06:00 Microbiology: Microbiology 05/29/21 17:20 Skin - Leg Gram Stain - Final 05/29/21 17:20 Skin - Leg Wound Culture - Preliminary Mixed Culture Pharmacy Plan for Drug Dosing: VANCOMYCIN LEVEL RECEIVED Current Vancomycin Dose: 750mg q12h (0630,1830) Number of Doses Received: 1250mg x1, 750mg x2 Vancomycin Level: 14.7 Hours Since Last Dose: 11 Renal Function: SrCr 0.99 Renal Function Trend: SrCr increasing Lab/Micro: Vancomycin Plan/Comments: Trough resulted within the the ordered goal trough range of 15-20. recommend continuing current dose of 750mg q12h and checking trough before the 4th dose. Pending Level: 06/02/21 at 0600 Pharmacy Service will continue to monitor and adjust dosing as required. Follow-Up Labs: Trough Vancomycin - 06/02/21 at 0600
[2021-05-31] MEDS: Juven (unflavored) Packet 1 PACKET PO ×2 (08:19→16:38)
[2021-05-31] MEDS: Potassium Chloride Oral Tablet 20 MEQ 40 MEQ PO (08:23)
[2021-05-31] MEDS: 0.9% Normal Saline 1,000 ML 100 ML IV ×2 (09:33→18:53)
[2021-05-31] MEDS: Furosemide 80 MG Tablet PO ×2 (10:23→18:23)
[2021-05-31] MEDS: Metoprolol(XL)Succ 50 MG Tablet PO (10:23)
[2021-05-31] MEDS: Famotidine 20 MG Tablet PO ×2 (10:23→21:45)
[2021-05-31] MEDS: Losartan Potassium 50 MG Tablet PO (10:25)
[2021-05-31] MEDS: 0.9% Saline Lock 10 ML Syringe IV (10:34)
[2021-05-31] MEDS: Morphine 2 MG/ML Syringe IV (10:34)
--- NOTE | 2021-05-31 10:55 | PCM.PN.HOSP ---
Documented by User: LEANN Gutierrez 05/31/21 11:06 Subjective Subjective Patient seen and examined. Patient reporting increased pain to to right lower extremity. Patient has received pain medication and states that it has improved but continues to have 6-[address] Berrios also at bedside, will reevaluate pain medication regimen. Objective Data Objective Data Vital Signs: Vital Signs Temp Pulse Resp BP Pulse Ox 98.0 F 79 18 140/99 H 97 05/31/21 10:18 05/31/21 10:23 05/31/21 10:18 05/31/21 10:23 05/31/21 10:18 Oxygen Delivery Method Room Air Weight: 168 lb 6.931 oz Body Mass Index (BMI) 29.5 Intake & Output: Intake and Output for Last 24 Hours 05/29/21 05/30/21 05/31/21 23:59 23:59 23:59 Intake Total 389.5 / 1549.5 4660.67 / 4860.67 1615 / 1615 Balance 389.5 / 1549.5 4660.67 / 4860.67 1615 / 1615 Lab / Micro Data Result Diagrams: 05/31/21 06:00 05/31/21 06:00 Labs: Laboratory Results - last 24 hr 05/30/21 12:21: POC Glucose 224 H 05/30/21 16:24: POC Glucose 122 H 05/30/21 22:26: POC Glucose 151 H 05/31/21 06:00: Vancomycin Trough 14.7 05/31/21 06:00: WBC 8.0, RBC 3.59 L, Hgb 11.4 L, Hct 35.3 L, MCV 98.3, MCH 31.8, MCHC 32.3, RDW Std Deviation 60.5 H, RDW Coeff of Taran 16.6 H, Plt Count 243, MPV 11.4, Immature Gran % (Auto) 0.600, Neut % (Auto) 65.3, Lymph % (Auto) 21.0, [place] % (Auto) 9.8, Eos % (Auto) 2.7, Baso % (Auto) 0.6, Absolute Neuts (auto) 5.2, Absolute Lymphs (auto) 1.69, Nucleated RBC % 0 05/31/21 06:00: Sodium 140, Potassium 3.3 L, Chloride 104, Carbon Dioxide 33.0 H, Anion Gap 3 L, BUN 17, Creatinine 0.99, Estim Creat Clear Calc 41.09, Est GFR (MDRD) Af Amer 70, Est GFR (MDRD) Non-Af 58 L, BUN/Creatinine Ratio 17.2, Glucose 130 H, Calcium 8.3 L 05/31/21 06:33: POC Glucose 138 H Micro: Microbiology 05/29/21 17:20 Skin - Leg Gram Stain - Final 05/29/21 17:20 Skin - Leg Wound Culture - Preliminary GNR Poss Pseudomonas sp Gram negative tuan Staphylococcus aureus Physical Exam Const alert, oriented x3 and no apparent distress HEENT head/scalp atraumatic Eyes conjunctivae normal and no scleral icterus Neck full ROM and supple Resp normal respiratory effort, normal air movement and clear to auscultation bilaterally Effort and Inspection: able to speak in complete sentences and symmetric chest movement Cardio regular rate, regular rhythm, S1 normal heart sound and S2 normal heart sound GI normal to inspection, nondistended, normoactive bowel sounds, soft to palpation and non-tender Extremity normal to inspection and full ROM Extremity Narrative: Dressing to right lower extremity changed this a.m. by Dr. Guerrero, wound not visualized. Dressing dry and intact Peripheral Pulses: Yes pulses 2+ throughout Skin no rashes or lesions noted and skin turgor normal Skin Narrative: Wound to right lower extremity not visualized, dressing changed by Dr. Guerrero, dry and intact Neuro oriented x3, moves all extremities, no focal motor deficits and no sensory deficits noted Sensorium / Orientation: awake and alert Psych affect normal Assessment & Plan Assessment/Plan (1) Cellulitis of right lower limb: PLAN: 1. Cellulitis of the right ankle secondary to laceration -Patient failed outpatient treatment with doxycycline, currently on IV vanc and zosyn -Wound cultures pending -CBC and BMP daily -Elevate right lower extremity -Podiatry following -PT and OT to eval and treat -Per Dr. Guerrero's note no surgical intervention planned at this time. Recommendations given for outpatient venous Doppler with reflux evaluation for venous insufficiency due to patient's increased edema and pain. 2. Diabetes mellitus type 2 -AC at bedtime blood sugars are sliding scale insulin ordered -Diabetic diet ordered -Hemoglobin A1c 7.2 3. Hypertension -Continue patient's current home medication regimen including metoprolol, Lasix, olmesartan -Vital signs per protocol -As needed hydralazine ordered We will continue patient's home medication regimen for chronic diseases including hyperlipidemia, chronic back pain, chronic asthma, hypothyroidism, GERD. DVT prophylaxis-SCDs This patient was seen by LEANN Gutierrez under the supervision of Dr. Berrios. Documented by User: Dr. Karis Berrios MD 05/31/21 15:27 Objective Data Lab / Micro Data Result Diagrams: 05/31/21 06:00 05/31/21 06:00 Charges/Coding Addendum Addendum: Patient seen by Bettie NORIEGA under my supervision Patient seen and examined. She complained of increased pain in her RLE. Review of systems otherwise negative. She has remained hemodynamically stable. O/E: Const alert, oriented x3 and no apparent distress HEENT head/scalp atraumatic Head and Scalp: normocephalic Eyes conjunctivae normal and no scleral icterus Neck full ROM and supple Resp normal respiratory effort, normal air movement and clear to auscultation bilaterally Cardio regular rate, regular rhythm, S1 normal heart sound and S2 normal heart sound GI normal to inspection, nondistended, normoactive bowel sounds, soft to palpation and non-tender Extremity normal to inspection, full ROM and no clubbing, cyanosis or edema Skin dressing over RLE at johnson level Neuro oriented x3, moves all extremities, no focal motor deficits and no sensory deficits noted Sensorium / Orientation: awake and alert Psych affect normal She remains on IV vancomycin and zosyn. PT./OT on board. She will benefit from vascular studies as she is complaining of severe RLE pain, to ensure that she has patent arteries. Podiatry on board. Venous duplex with reflux evaluation ordered for venous insufficiency on outpatient basis. Cultures pending. WBC has trended down to 8. Potassium is 3.3. Will replace and trend. Lovenox for DVT prophylaxis Rest as per Bettie Knoble WAITER/WAITRESS [employer]-C's note, which I have reviewed and endorsed. Visit Charges Inpatient E&M: 70379 Subs Hosp L2
[2021-05-31 12:46] LABS: Bedside Glucose 129 mg/dL (70-110)
[2021-05-31] MEDS: Albuterol 2.5 MG/3 ML VIAL.NEB. INHALATION (13:52)
[2021-05-31 16:35] LABS: Bedside Glucose 170 mg/dL (70-110)
[2021-05-31] MEDS: Insulin Lispro 100 UNIT/ML INSULN.PEN SC ×2 (16:43→21:45)
[2021-05-31] MEDS: Budesonide Respules 0.5 MG/2 ML AMPUL.NEB. INHALATION (19:27)
[2021-05-31] MEDS: Acetaminophen 325 MG Tablet 650 MG PO (20:27)
[2021-05-31 22:00] LABS: Bedside Glucose 160 mg/dL (70-110)
[2021-06-01 02:10] VITALS: BP 121/75; PULSE 61; RESP 16; TEMP 36.5; O2SAT 96
[2021-06-01] MEDS: 0.9% Normal Saline 1,000 ML 100 ML IV (05:46)
[2021-06-01] MEDS: Levothyroxine 125 MCG Tablet PO (05:46)
[2021-06-01 06:37] LABS: Absolute Lymphocyte Count 1.93 X10^3/uL (0.83-4.51); Basophil# 0.07 X10^3/uL; Basophil% 0.7 % (0-1); Eosinophil# 0.38 X10^3/uL; Hematocrit 36.1 % (37-47); Hemoglobin 11.4 g/dL (12.0-15.0); Lymphocyte # 1.93 X10^3/ul (0.83-4.51); Lymphocyte % 20.3 % (19-41); Mean Corp Hgb Conc 31.6 g/dL (32-36); Mean Corpuscular Hgb 31.9 pg (27.0-32.0); Mean Corpuscular Volume 101.1 fL (81-99); Mean Platelet Vol. 11.7 fl (6.2-12.0); Monocyte# 1.04 X10^3/uL; Monocyte% 10.9 % (0-10); NRBC Flagged by Analyzer 0 % (0-5); Neutrophil # 6.02 X10^3/uL (2.7-7.7); Neutrophil % 63.5 % (47-70); Platelet Count 246 K/mm3 (150-450); RBC Distribution Width CV 16.9 % (11.6-14.6); RBC Distribution Width SD 63.3 fl (35.1-43.9); Red Blood Count 3.57 M/mm3 (4.2-5.4); White Blood Count 9.5 K/mm3 (4.4-11.0)
[2021-06-01 06:40] LABS: Bedside Glucose 105 mg/dL (70-110)
[2021-06-01 06:57] LABS: Anion Gap 6 (5-15); BUN 31 mg/dL (7-18); BUN/Creat Ratio 27.2 RATIO (10-20); Calcium,Total 8.7 mg/dL (8.5-10.1); Chloride 101 mmol/L (98-107); Creatinine, Serum 1.14 mg/dL (0.55-1.02); EST Glomerular Filtration Rate 49 mL/min (>60); Est Glom Filt Rate - Afr Amer 59 mL/min (>60); Estimated Creatinine Clearance 35.69 ml/min; Glucose 117 mg/dL (74-106); Potassium 3.7 mmol/L (3.5-5.1); Sodium Level 139 mmol/L (136-145)
[2021-06-01 07:02] VITALS: O2SAT 94
[2021-06-01] MEDS: Juven (unflavored) Packet 1 PACKET PO (07:18)
[2021-06-01 07:34] VITALS: BP 132/80; PULSE 64; RESP 16; TEMP 36.6; O2SAT 97
--- NOTE | 2021-06-01 07:40 | PN_ITS ---
Subjective Subjective Patient was seen this morning for right ankle wound. She is resting comfortably in bed with no new complaints. She is asking when can she go home. Objective Data Objective Data Vital Signs: Vital Signs Temp Pulse Resp BP Pulse Ox 97.8 F 64 16 132/80 H 97 06/01/21 07:34 06/01/21 07:34 06/01/21 07:34 06/01/21 07:34 06/01/21 07:34 Oxygen Delivery Method Room Air Weight: 76.8 kg Body Mass Index (BMI) 29.5 Intake & Output: Intake and Output for Last 24 Hours 05/30/21 05/31/21 06/01/21 23:59 23:59 23:59 Intake Total 4660.67 / 4860.67 3808.09 / 3808.09 1316.66 / 1316.66 Output Total 500 / 500 Balance 4660.67 / 4860.67 3808.09 / 3808.09 816.66 / 816.66 Lab / Micro Data Result Diagrams: 06/01/21 05:45 06/01/21 05:45 Labs: Laboratory Results - last 24 hr 05/31/21 12:11: POC Glucose 129 H 05/31/21 16:29: POC Glucose 170 H 05/31/21 21:44: POC Glucose 160 H 06/01/21 05:45: WBC 9.5, RBC 3.57 L, Hgb 11.4 L, Hct 36.1 L, MCV 101.1 H, MCH 31.9, MCHC 31.6 L, RDW Std Deviation 63.3 H, RDW Coeff of Taran 16.9 H, Plt Count 246, MPV 11.7, Immature Gran % (Auto) 0.600, Neut % (Auto) 63.5, Lymph % (Auto) 20.3, [place] % (Auto) 10.9 H, Eos % (Auto) 4.0, Baso % (Auto) 0.7, Absolute Neuts (auto) 6.0, Absolute Lymphs (auto) 1.93, Nucleated RBC % 0 06/01/21 05:45: Sodium 139, Potassium 3.7, Chloride 101, Carbon Dioxide 32.0, Anion Gap 6, BUN 31 H, Creatinine 1.14 H, Estim Creat Clear Calc 35.69, Est GFR (MDRD) Af Amer 59 L, Est GFR (MDRD) Non-Af 49 L, BUN/Creatinine Ratio 27.2 H, Glucose 117 H, Calcium 8.7 06/01/21 06:35: POC Glucose 105 Micro: Microbiology 05/29/21 17:20 Skin - Leg Gram Stain - Final 05/29/21 17:20 Skin - Leg Wound Culture - Preliminary GNR Poss Pseudomonas sp Gram negative tuan Staphylococcus aureus Physical Exam Const alert and oriented x3 General Appearance: cooperative HEENT normocephalic Extremity Extremity Narrative: 2 out of 4 PT and DP pulses bilateral Muscle wasting noted minimal lower extremity edemam there are with telangiectasias bilateral General Extremity: no tenderness to palpation of joints or extremities; Negative for cyanosis Skin Skin Narrative: There is an ulcer skin discontinuity to the medial lower right leg that is consistent with her prior skin tear down to subcutaneous tissue, there is no deep probing, odor or purulence on expression. There is minimal erythema around the wound, otherwise no erythema or cellulitis to the right lower extremity. there is no adjacent bogginess or fluctuance on palpation. The compartments of this limb remain soft to palpate to right LE. No evidence of DVT bilateral leg. Neuro Neuro Narrative: Epicritic sensation is intact via light touch to bilateral lower extremities Psych cooperative and affect normal Assessment & Plan Assessment/Plan (1) Non-pressure chronic ulcer of unspecified part of right lower leg with fat layer exposed: (2) Cellulitis of right lower limb: (3) Localized edema: (4) Diabetes mellitus: PLAN: Evaluation performed. Reviewed diagnostic data. The right ankle wound is healing and infection significantly improved. Reviewed culture results - finals were pending upon review this morning. Dressing: Hydrogel and gauze. This was changed this morning. Wash: Soap and water Offload/edema management: To reduce edema with Gulshan wrap and elevation Vascular: She has palpable pulses, but did order LEAS for further evaluation. Also a venous Doppler with reflux evaluation in the outpatient setting to assess for venous insufficiency which may be contributing to some of her edema and will affect her healing potential. Infection: Cultures were obtained. She is currently on broad-spectrum antibiotics (vancomycin and Zosyn), and these will be adjusted according to the culture results. Pain: Pain medication ordered Host factors: Her multiple comorbidities are noted. Medical management per hospitalist services noted and appreciated. Nutritional supplementation was ordered to optimize healing. I answered all the patient's questions. Please call if questions. Also patient would benefit from home health for dressing changes. Patient to follow up with us at [facility] or [facility] upon discharge.
--- NOTE | 2021-06-01 08:29 | PCS.PANDOC ---
PANDEMIC DOCUMENTATION INITIATED: Date: 02/23/2021 Time: 190
--- NOTE | 2021-06-01 08:29 | WOUNDNOTE ---
wound photo: right medial lower leg
[2021-06-01 09:27] VITALS: BP 132/80; PULSE 64
[2021-06-01] MEDS: Metoprolol(XL)Succ 50 MG Tablet PO (09:27)
[2021-06-01] MEDS: Famotidine 20 MG Tablet PO (09:27)
[2021-06-01] MEDS: Losartan Potassium 50 MG Tablet PO (09:27)
[2021-06-01] MEDS: Furosemide 80 MG Tablet PO (09:27)
--- NOTE | 2021-06-01 10:29 | PCM.DC ---
Discharge Instructions Diet Discharge Diet: No restrictions Activity Discharge Activity: Return to Normal Activity Weight Bearing Status: Weight bearing as tolerated Dressing / Incision Call your doctor if you observe: Fever of 101 or Higher, Numbness or Tingling, Shortness of breath, Dizziness, Chest pain, Increased palpitations (irregular heartbeat) and Calf discomfort Follow Up Care Please Follow Up With: Primary care provider When: Within the next two weeks. Test Results: Test results from this visit will be discussed in further detail at your follow-up appointment, if applicable. Discharge Plan Admission Admit Date/Time: 05/29/21 19:06 Primary Reason for Your Visit: Cellulitis. Attending Provider: Sallie Lebron Primary Care Provider: Oscar Adhikari Consulting Providers: Estrella Guerrero Instructions Additional Instructions / Restrictions: Change dressing daily with hydrogel and gauze. Cover with additional gauze, Dennis roll and Gulshan wrap (started on the foot and and on the proximal leg). Wash with antibacterial soap and water each day with dressing change. Do not soak the leg. Keep pressure directly off of the wound. Weight-bear as tolerated. Obtain a venous Doppler with reflux evaluation test in the outpatient setting. Discharge Orders/Prescriptions Prescriptions: New levofloxacin 750 mg tablet 750 mg PO Q24H Qty: 8 RF: 0 Continued levothyroxine 125 mcg tablet 125 mcg PO DAILY RF: 0 metoprolol succinate 50 MG tablet extended release 24 hr 50 mg PO DAILY RF: 0 albuterol sulfate 1 PUFF inhaler 1 - 2 puff INHALATION Q6H PRN PRN (Reason: Sob &/Or Wheezing) RF: 0 fluticasone furoate-vilanterol 1 EACH blister with device 1 ea IH DAILY RF: 0 metformin 500 mg Tablet Extended Release 24 Hr 500 mg PO DAILY RF: 0 acetaminophen 500 mg Tablet 1,000 mg PO Q6H PRN PRN (Reason: Pain Score 1-3) Qty: 0 RF: 0 cetirizine 10 mg tablet 10 mg PO DAILY RF: 0 pantoprazole 40 mg tablet,delayed release (DR/EC) 40 mg PO DAILY RF: 0 mirtazapine 15 mg tablet 15 mg PO QHS RF: 0 olmesartan 20 mg tablet 20 mg PO DAILY RF: 0 potassium chloride [Klor-Con M20] 20 mEq tablet,ER particles/crystals 40 meq PO DAILY RF: 0 furosemide 80 mg tablet 40 mg PO DAILY RF: 0 baclofen 10 mg tablet 10 mg PO QHS RF: 0 Referrals / Follow Up: Estrella Guerrero DPM [STAFF PHYSICIAN] - In 1 Week (Follow-up either at the [facility] ([phone]), or at the wound healing center with any of the providers ([phone]).) Oscar Adhikari MD [Primary Care Provider] - Within 2 Weeks Disposition Disposition (needs filled in before D/C Order can be placed): Home, Self Care
--- NOTE | 2021-06-01 11:39 | PHA.DC.MR ---
Pharmacy Service has performed discharge medication reconciliation for this patient. The patient's discharge medication list was reviewed for discrepancies and discrepancies were resolved. Patient in contact precautions, did not clinical mental health counselor. Home Medications metoprolol succinate 50 mg PO DAILY 05/19/20 albuterol sulfate 1 - 2 puff INHALATION Q6H PRN PRN 06/02/20 levothyroxine 125 mcg tablet 125 mcg PO DAILY tab 06/09/20 fluticasone furoate-vilanterol 1 ea IH DAILY 06/17/20 metformin 500 mg PO DAILY 12/27/20 acetaminophen 1,000 mg PO Q6H PRN PRN #0 tab 02/13/21 baclofen 10 mg PO QHS 05/29/21 cetirizine 10 mg PO DAILY 05/29/21 furosemide 40 mg PO DAILY 05/29/21 mirtazapine 15 mg PO QHS 05/29/21 olmesartan 20 mg PO DAILY 05/29/21 pantoprazole 40 mg PO DAILY 05/29/21 potassium chloride [Klor-Con M20] 40 meq PO DAILY 05/29/21 levofloxacin 750 mg PO Q24H #8 tab 06/01/21
[2021-06-01] MEDS: oxyCODONE 5 MG Tablet PO (11:46)
--- NOTE | 2021-06-01 12:16 | DS.PCM_ITS ---
Documented by User: Andrew DOW 06/01/21 12:24 Providers Date of Admission: 05/29/21 Primary Care Physician: Dr. Oscar Adhikari MD Consultations 05/29/21 21:26 Consult: Podiatry Routine Consulting Provider: Estrella Guerrero Reason for Consult: R ankle laceration, infected EMERGENT Consult: No MD Notified: Yes Date Notified: 05/29/21 Time Notified: 19:10 Method of Notification: cortext 06/01/21 08:44 Consult: Onc/Wound/manager media relations Routine Comment: Reason for Consult:: right lower leg wound Reason For Visit: R ANKLE WOUND, CELLULITIS Diagnosis Discharge Diagnosis (1) Non-pressure chronic ulcer of unspecified part of right lower leg with fat layer exposed: Status: Chronic Code(s): L97.912 - Non-pressure chronic ulcer of unspecified part of right lower leg with fat layer exposed (2) Cellulitis of right lower limb: Status: Acute Code(s): L03.115 - Cellulitis of right lower limb (3) Localized edema: Status: Acute Code(s): R60.0 - Localized edema (4) Diabetes mellitus: Status: Chronic Code(s): E11.9 - Type 2 diabetes mellitus without complications Medications at Discharge Home Medications metoprolol succinate 50 mg PO DAILY 05/19/20 albuterol sulfate 1 - 2 puff INHALATION Q6H PRN PRN 06/02/20 levothyroxine 125 mcg tablet 125 mcg PO DAILY tab 06/09/20 fluticasone furoate-vilanterol 1 ea IH DAILY 06/17/20 metformin 500 mg PO DAILY 12/27/20 acetaminophen 1,000 mg PO Q6H PRN PRN #0 tab 02/13/21 baclofen 10 mg PO QHS 05/29/21 cetirizine 10 mg PO DAILY 05/29/21 furosemide 40 mg PO DAILY 05/29/21 mirtazapine 15 mg PO QHS 05/29/21 olmesartan 20 mg PO DAILY 05/29/21 pantoprazole 40 mg PO DAILY 05/29/21 potassium chloride [Klor-Con M20] 40 meq PO DAILY 05/29/21 levofloxacin 750 mg PO Q24H #8 tab 06/01/21 Hospital Course Summary of Care Provided Minutes Spent on Discharge: 35 Hospital Course: Patient is a 75-year-old female who was admitted to the hospital on 05/29/2021 for management of right lower extremity cellulitis. Patient was initiated on vancomycin and Zosyn empirically. Podiatry was consulted and the right lower extremity ulcer was debrided with with appropriate bandaging. No surgery was indicated throughout admission. Cultures grew Pseudomonas and Staphylococcus with sensitivities to levofloxacin. Patient will be discharged on 8-day course of Levaquin and is to follow-up with podiatry within 1 week and primary care provider within the next 2 weeks. All other home medications were continued. Patient seen by Andrew Rollins PA-C, under the supervision of Dr. Lebron. Physical Exam Narrative Patient is a 75-year-old female comfortably resting in a chair, alert and orient x3. Patient reports that leg pain and swelling from admission are greatly improved. Denies development of new symptoms overnight. Does not appear in acute distress. Const alert, oriented x3 and no apparent distress HEENT normocephalic, head/scalp atraumatic and hearing grossly normal bilaterally Eyes PERRL, EOMs intact bilaterally and conjunctivae normal Neck no lymphadenopathy, supple and no JVD Resp normal respiratory effort, no retractions, no use of accessory muscles and clear to auscultation bilaterally Cardio regular rate, regular rhythm, no murmurs and no JVD GI normal to inspection, nondistended, normoactive bowel sounds, soft to palpation and non-tender Extremity normal to inspection, full ROM and no clubbing, cyanosis or edema Skin no rashes or lesions noted, no wounds and skin turgor normal Neuro CN's II-XII intact bilaterally Psych affect normal Weight / BMI Weight Weight: 169 lb 5.04 oz Body Mass Index (BMI) 29.5 ABG / Lab / Microbiology Data Result Diagrams: 06/01/21 05:45 06/01/21 05:45 Laboratory: Laboratory Results - last 24 hr 05/31/21 12:11: POC Glucose 129 H 05/31/21 16:29: POC Glucose 170 H 05/31/21 21:44: POC Glucose 160 H 06/01/21 05:45: WBC 9.5, RBC 3.57 L, Hgb 11.4 L, Hct 36.1 L, MCV 101.1 H, MCH 31.9, MCHC 31.6 L, RDW Std Deviation 63.3 H, RDW Coeff of Taran 16.9 H, Plt Count 246, MPV 11.7, Immature Gran % (Auto) 0.600, Neut % (Auto) 63.5, Lymph % (Auto) 20.3, Camp % (Auto) 10.9 H, Eos % (Auto) 4.0, Baso % (Auto) 0.7, Absolute Neuts (auto) 6.0, Absolute Lymphs (auto) 1.93, Nucleated RBC % 0 06/01/21 05:45: Sodium 139, Potassium 3.7, Chloride 101, Carbon Dioxide 32.0, Anion Gap 6, BUN 31 H, Creatinine 1.14 H, Estim Creat Clear Calc 35.69, Est GFR (MDRD) Af Amer 59 L, Est GFR (MDRD) Non-Af 49 L, BUN/Creatinine Ratio 27.2 H, Glucose 117 H, Calcium 8.7 06/01/21 06:35: POC Glucose 105 Microbiology: Microbiology 05/29/21 17:20 Skin - Leg Gram Stain - Final 05/29/21 17:20 Skin - Leg Wound Culture - Final Pseudomonas aeroginosa Staphylococcus aureus D/C Instructions Discharge Diet: No restrictions Weight Bearing Status: Weight bearing as tolerated Call your doctor if you observe: Fever of 101 or Higher, Numbness or Tingling, Shortness of breath, Dizziness, Chest pain, Increased palpitations (irregular heartbeat) and Calf discomfort Please Follow Up With: Primary care provider When: Within the next two weeks. Meaningful Use Info Meaningful Use Diagnoses (Choose all that apply): None applicable Discharge Plan Admission Admit Date/Time: 05/29/21 19:06 Primary Reason for Your Visit: Cellulitis. Attending Provider: Sallie Lebron Primary Care Provider: Oscar Adhikari Consulting Providers: Estrella Guerrero Instructions Additional Instructions / Restrictions: Change dressing daily with hydrogel and gauze. Cover with additional gauze, Dennis roll and Gulshan wrap (started on the foot and and on the proximal leg). Wash with antibacterial soap and water each day with dressing change. Do not soak the leg. Keep pressure directly off of the wound. Weight-bear as tolerated. Obtain a venous Doppler with reflux evaluation test in the outpatient setting. Discharge Orders/Prescriptions Prescriptions: New levofloxacin 750 mg tablet 750 mg PO Q24H Qty: 8 RF: 0 Continued levothyroxine 125 mcg tablet 125 mcg PO DAILY RF: 0 metoprolol succinate 50 MG tablet extended release 24 hr 50 mg PO DAILY RF: 0 albuterol sulfate 1 PUFF inhaler 1 - 2 puff INHALATION Q6H PRN PRN (Reason: Sob &/Or Wheezing) RF: 0 fluticasone furoate-vilanterol 1 EACH blister with device 1 ea IH DAILY RF: 0 metformin 500 mg Tablet Extended Release 24 Hr 500 mg PO DAILY RF: 0 acetaminophen 500 mg Tablet 1,000 mg PO Q6H PRN PRN (Reason: Pain Score 1-3) Qty: 0 RF: 0 cetirizine 10 mg tablet 10 mg PO DAILY RF: 0 pantoprazole 40 mg tablet,delayed release (DR/EC) 40 mg PO DAILY RF: 0 mirtazapine 15 mg tablet 15 mg PO QHS RF: 0 olmesartan 20 mg tablet 20 mg PO DAILY RF: 0 potassium chloride [Klor-Con M20] 20 mEq tablet,ER particles/crystals 40 meq PO DAILY RF: 0 furosemide 80 mg tablet 40 mg PO DAILY RF: 0 baclofen 10 mg tablet 10 mg PO QHS RF: 0 Referrals / Follow Up: Estrella Guerrero DPM [STAFF PHYSICIAN] - 06/08/21 1:30 pm (Follow-up either at the [facility] Center ([phone]), or at the wound healing center with any of the providers ([phone]). Please arrive to your apt at 1pm to fill out new pt forms, bring id, insurance card, and wear a mask) Oscar Adhikari MD [Primary Care Provider] - 06/12/21 8:10 am Disposition Disposition (needs filled in before D/C Order can be placed): Home, Self Care Documented by User: Dr. Sallie Lebron DO 06/01/21 14:03 Providers Date of Admission: 05/29/21 Reason For Visit: R ANKLE WOUND, CELLULITIS Medications at Discharge Home Medications metoprolol succinate 50 mg PO DAILY 05/19/20 albuterol sulfate 1 - 2 puff INHALATION Q6H PRN PRN 06/02/20 levothyroxine 125 mcg tablet 125 mcg PO DAILY tab 06/09/20 fluticasone furoate-vilanterol 1 ea IH DAILY 06/17/20 metformin 500 mg PO DAILY 12/27/20 acetaminophen 1,000 mg PO Q6H PRN PRN #0 tab 02/13/21 baclofen 10 mg PO QHS 05/29/21 cetirizine 10 mg PO DAILY 05/29/21 furosemide 40 mg PO DAILY 05/29/21 mirtazapine 15 mg PO QHS 05/29/21 olmesartan 20 mg PO DAILY 05/29/21 pantoprazole 40 mg PO DAILY 05/29/21 potassium chloride [Klor-Con M20] 40 meq PO DAILY 05/29/21 levofloxacin 750 mg PO Q24H #8 tab 06/01/21 Hospital Course Procedures - (Bedside I&D of right foot) Summary of Care Provided Minutes Spent on Discharge: 41 Hospital Course: Mrs. Strickland is a 75-year-old white female presented to the emergency department at [facility] on 05/29/2021 with a right ankle wound status post recent laceration. On admission she reported that approximately 10 days prior to presentation she had sutures placed by her outpatient PCP and doxycycline was started. She report approximately 3 days prior to presenting she had worsening redness, pain, edema, and difficulty ambulating with increasing fatigue and malaise that prompted her visit to the emergency department. Upon admission her pain was primarily with ambulation or with palpation of the surrounding area. On admission she denied any recent fever or chills associated with the symptoms. Overall her work-up in the emergency department was fairly unremarkable other than a mild leukocytosis with a left shift. Her lactic acid was normal on admission and a plain film of her right ankle showed soft tissue swelling without any foreign body or underlying acute osseous abnormalities. The emergency department she was given antibiotics and was admitted to the medical floor. She was started on vancomycin and Zosyn after admission and podiatry was consulted. Podiatry evaluated the patient on 05/30/2021 at which time an I&D of the right ankle was performed with cultures being sent. Dressings were also placed at that time. Her dressings were maintained during her hospitalization and she was maintained on IV antibiotics until identification and sensitivities were determined on the day of discharge. Her wound culture grew Pseudomonas and staph aureus. The staph aureus was MSSA and she was therefore discharged with Levaquin to continue her anticoagulation. Her hemoglobin and A1c was assessed during her hospitalization and found to be 7.2. This appears to be slowly trending down as compared to previous within the last 12 months. The case was discussed with podiatry prior to discharge and they will follow up with her at the wound center. She was instructed in maintaining her dressings at home and instructions for dressing changes were given. She was discharged home with a prescription for Levaquin on 06/01/2021. No other medication changes were made. She is to follow-up with her primary care physician in 1 to 2 weeks. Discharge diagnoses: Infected right ankle wound-MSSA, Pseudomonas DM-2 Chronic low back pain/DDD Hypertension Hyperlipidemia Restless leg syndrome Asthma Allergic rhinitis Hypothyroidism GERD History of PUD Cataracts History of colon polyps Anxiety Physical Exam Const alert, oriented x3 and no apparent distress Constitutional Narrative: Overweight white female sitting up in bed, appears comfortable, nontoxic, very pleasant General Appearance: cooperative, comfortable, well kempt and well developed Orientation / Consciousness: awake Exam Limitations: no limitations Nutritional Appearance: overweight HEENT normocephalic, head/scalp atraumatic and moist oral mucous membranes HEENT Narrative: Mildly hard of hearing, no thrush, dentition is fair, Mallampati 2 Eyes PERRL, EOMs intact bilaterally and conjunctivae normal Eyes Narrative: No scleral icterus Neck no lymphadenopathy, supple and no JVD Neck Narrative: Trachea midline, no thyroid enlargement Resp normal respiratory effort, no retractions, no use of accessory muscles and clear to auscultation bilaterally Auscultation: Negative for crackles, rales, rhonchi or wheezes Cardio regular rate, regular rhythm, S1 normal heart sound, S2 normal heart sound, no murmurs, no rub, no gallops, no clicks and no JVD GI normal to inspection, nondistended, normoactive bowel sounds, soft to palpation, non-tender and non-distended Extremity Extremity Narrative: Right lower extremity with Gulshan bandage in place, toes with good cap refill at 2+ bilaterally, no wounds noted distally, no significant edema, clubbing, or cyanosis Skin no rashes or lesions noted, skin turgor normal and no jaundice Skin Narrative: Wound as noted per documentation although the dressing was intact and I did not visualize it directly at this time Neuro oriented x3, CN's II-XII intact bilaterally, moves all extremities and no focal motor deficits Sensorium / Orientation: awake and alert Speech: speech normal Psych affect normal ABG / Lab / Microbiology Data Result Diagrams: 06/01/21 05:45 06/01/21 05:45 Discharge Plan Admission Admit Date/Time: 05/29/21 19:06 Primary Reason for Your Visit: Cellulitis. Attending Provider: Sallie Lebron Primary Care Provider: Oscar Adhikari Consulting Providers: Estrella Guerrero Instructions Additional Instructions / Restrictions: Change dressing daily with hydrogel and gauze. Cover with additional gauze, Dennis roll and Gulshan wrap (started on the foot and and on the proximal leg). Wash with antibacterial soap and water each day with dressing change. Do not soak the leg. Keep pressure directly off of the wound. Weight-bear as tolerated. Obtain a venous Doppler with reflux evaluation test in the outpatient setting. Discharge Orders/Prescriptions Prescriptions: New levofloxacin 750 mg tablet 750 mg PO Q24H Qty: 8 RF: 0 Continued levothyroxine 125 mcg tablet 125 mcg PO DAILY RF: 0 metoprolol succinate 50 MG tablet extended release 24 hr 50 mg PO DAILY RF: 0 albuterol sulfate 1 PUFF inhaler 1 - 2 puff INHALATION Q6H PRN PRN (Reason: Sob &/Or Wheezing) RF: 0 fluticasone furoate-vilanterol 1 EACH blister with device 1 ea IH DAILY RF: 0 metformin 500 mg Tablet Extended Release 24 Hr 500 mg PO DAILY RF: 0 acetaminophen 500 mg Tablet 1,000 mg PO Q6H PRN PRN (Reason: Pain Score 1-3) Qty: 0 RF: 0 cetirizine 10 mg tablet 10 mg PO DAILY RF: 0 pantoprazole 40 mg tablet,delayed release (DR/EC) 40 mg PO DAILY RF: 0 mirtazapine 15 mg tablet 15 mg PO QHS RF: 0 olmesartan 20 mg tablet 20 mg PO DAILY RF: 0 potassium chloride [Klor-Con M20] 20 mEq tablet,ER particles/crystals 40 meq PO DAILY RF: 0 furosemide 80 mg tablet 40 mg PO DAILY RF: 0 baclofen 10 mg tablet 10 mg PO QHS RF: 0 Referrals / Follow Up: Estrella Guerrero DPM [STAFF PHYSICIAN] - 06/08/21 1:30 pm (Follow-up either at the foot and ankle Center ([phone]), or at the wound healing center with any of the providers ([phone]). Please arrive to your apt at 1pm to fill out new pt forms, bring id, insurance card, and wear a mask) Oscar Adhikari MD [Primary Care Provider] - 06/12/21 8:10 am Disposition Disposition (needs filled in before D/C Order can be placed): Home, Self Care Charges/Coding Visit Charges Inpatient E&M: 13668 Disch Hosp
--- NOTE | 2021-06-01 12:35 | CASEMGMT ---
RN CM in to pt room per request of Pretty beasley as pt states she needed to be set up with [facility]. Asked pt if she is homebound or has a difficult time leaving the home, pt states she drives and go out whenever I want. She states she does not currently use an AD. Asked pt if she can do her dressing change and reach her leg and she states Oh yes, I can. Made pt aware that she would not qualify for [facility] at this time. Pt states Oh I just talked myself out of that. Made pt aware that her dc instructions give her the instructions for wound care and that she will follow up with Dr. Guerrero either at the wound center or the office. Pt states she would like to go to the wound center. She is aware that the nurse will review the dc instructions with her. She denies further questions or concerns at this time.
[2021-06-01 13:10] VITALS: BP 132/80; PULSE 64; RESP 16; TEMP 36.6; O2SAT 97
[2021-06-01 16:55] LABS: Bedside Glucose 127 mg/dL (70-110)
== END 2021-06-01 13:23 | disposition home or self-care (01) | DRG 571 ==
LOC: ED 18:47 → MS3 19:36
PROVIDERS: Anesthesiology; Nurse Practitioner Family; Student in an Organized Health Care Education/Training Program; Admitting Provider Family Medicine; Emergency Provider Emergency Medicine; PCP Family Medicine; Visit Provider Internal Medicine
DX: L03.115 Cellulitis of right lower limb (principal); L97.812 Non-pressure chronic ulcer of other part of right lower leg with fat layer exposed; J45.909 Unspecified asthma, uncomplicated; I10 Essential (primary) hypertension; E78.5 Hyperlipidemia, unspecified; E03.9 Hypothyroidism, unspecified; K21.9 Gastro-esophageal reflux disease without esophagitis; A49.01 Methicillin susceptible Staphylococcus aureus infection, unspecified site; G89.29 Other chronic pain; M54.50 Low back pain, unspecified; G25.81 Restless legs syndrome; Z66 Do not resuscitate; F41.9 Anxiety disorder, unspecified; S91.011D Laceration without foreign body, right ankle, subsequent encounter; I25.2 Old myocardial infarction; Z86.73 Personal history of transient ischemic attack (TIA), and cerebral infarction without residual deficits; Z87.11 Personal history of peptic ulcer disease; Z87.19 Personal history of other diseases of the digestive system; Z96.641 Presence of right artificial hip joint; Z90.710 Acquired absence of both cervix and uterus; E11.36 Type 2 diabetes mellitus with diabetic cataract; H26.9 Unspecified cataract
CPT/HCPCS: 36415; 73610; 80048; 80053; 80202; 82248; 82962; 83036; 83605; 83735; 84443; 85025; 85610; 85652; 85730; 86140; 87070; 87077; 87184; 87186; 87205; 93005; 94640; 97162; 97165; 97802; 99251; 99284; J7030; J7050; A4216; G0463; J0295

== ENCOUNTER → 2021-06-05 10:42 | Outpatient (CLI) | payer MEDICARE, SELFPAY ==
--- NOTE | 2021-06-05 11:00 | BI_ITS ---
MAMMOGRAPHY - BILATERAL SCREENING REASON FOR EXAM: Female, 75 years old. Routine annual screening examination. PERTINENT HISTORY: Non-contributory. History of prior bilateral excisional breast biopsies. TECHNIQUE: Digital bilateral breast will (3D mammographic acquisition) in the CC and MLO projections. 2-D mediolateral oblique (MLO) and craniocaudad (CC) views of both breasts were obtained. CAD: Full Field Digital Mammography with Computer Added Detection was performed. COMPARISON: Comparison is made with prior study dated 04/16/2029 02/20/2019. FINDINGS: Breast Composition: The breasts are almost entirely fatty. There are no dominant masses or suspicious calcifications. Loop recording device is once again seen in the upper deep slightly medial aspect of the left breast. Stable densely calcified nodule in the upper slightly medial aspect of the left breast. No other significant abnormalities are identified. There has been no significant change since the prior study. BI/SCRN MAMM (CAD)W/WILL BILAT IMPRESSION: Stable bilateral screening mammogram. Yearly follow-up mammogram recommended. (A) ASSESSMENT CATEGORY: BIRADS Category 2: Benign. A letter regarding these results will be sent to the patient by the facility within 30 days. Approximately 10% of breast cancers are not detected by mammography. A normal mammogram should not delay biopsy of a clinically suspicious abnormality. [id number] Electronically Signed: Gonzalo Jordan MD at 9:59 EST , Service support ,
== END ==
PROVIDERS: PCP Family Medicine; Referring Provider Obstetrics & Gynecology; Visit Provider Obstetrics & Gynecology
DX: Z12.31 Encounter for screening mammogram for malignant neoplasm of breast (principal)
CPT/HCPCS: 77063; 77067

== ENCOUNTER → 2021-06-19 13:22 | Outpatient (CLI) | payer MEDICARE, SELFPAY ==
--- NOTE | 2021-06-19 13:26 | CT_ITS ---
STUDY: CT SCAN SHOULDER LEFT REASON FOR EXAM: Female, 75 years old. Shoulder pain. TRUE SITE protocol for shoulder replacement. RADIATION DOSAGE (If Supplied By Facility): CTDIvol = ( 31.16 ) mGy, DLP = ( 779.59 ) mGycm. Individualized dose optimization techniques were used for this CT.? TECHNIQUE: Multiple axial tomographic images of the left shoulder were obtained without intravenous contrast demonstration. Coronal and sagittal reconstruction was obtained as well. COMPARISON: None. FINDINGS: Mild degree of the osteoarthritis of the glenohumeral joint. There is decreased distance between the acromion and the humeral head in keeping with rotator cuff disease. There is evidence of degenerative changes of the left glenohumeral joint. Multilevel degenerative changes of the thoracic spine. CT/Extremity Upper without Contra IMPRESSION: Decreased distance between the humeral head and the acromion in keeping with rotator cuff pathology. Degenerative changes of the left acromioclavicular joint. Electronically Signed: Gonzalo Jordan MD at 14:18 EST , Service support ,
== END ==
PROVIDERS: PCP Family Medicine; Referring Provider Specialist; Visit Provider Specialist
DX: M19.112 Post-traumatic osteoarthritis, left shoulder (principal)
CPT/HCPCS: 73200

== ENCOUNTER → 2021-06-24 08:27 | Outpatient (CLI) | payer MEDICARE, SELFPAY | PROVIDERS: PCP Family Medicine; Referring Provider Family Medicine; Visit Provider Family Medicine | DX: Z20.822 Contact with and (suspected) exposure to COVID-19 (principal) | CPT/HCPCS: 87635; U0005; U0003 ==

== ENCOUNTER → 2021-07-08 15:12 | Outpatient (CLI) | payer MEDICARE, SELFPAY | PROVIDERS: PCP Family Medicine; Visit Provider Family Medicine | DX: Z20.822 Contact with and (suspected) exposure to COVID-19 (principal) | CPT/HCPCS: 87635; U0005; U0003 ==

== ENCOUNTER 2021-07-29 14:41 | Inpatient (IN) | payer MEDICARE, SELFPAY ==
[2021-07-20 10:40] LABS: Absolute Lymphocyte Count 1.75 X10^3/uL (0.83-4.51); Absolute Neutrophil Count 6.4 X10^3/uL (2.0-7.7); Basophil# 0.12 X10^3/uL; Basophil% 1.2 % (0-1); Hemoglobin 11.6 g/dL (12.0-15.0); Lymphocyte # 1.75 X10^3/ul (0.83-4.51); Lymphocyte % 17.4 % (19-41); Mean Corp Hgb Conc 32.2 g/dL (32-36); Mean Corpuscular Hgb 32.2 pg (27.0-32.0); Mean Platelet Vol. 10.7 fl (6.2-12.0); Monocyte# 1.07 X10^3/uL; Monocyte% 10.6 % (0-10); NRBC Flagged by Analyzer 0 % (0-5); Neutrophil # 6.42 X10^3/uL (2.7-7.7); Neutrophil % 63.8 % (47-70); Platelet Count 312 K/mm3 (150-450); RBC Distribution Width CV 13.6 % (11.6-14.6); RBC Distribution Width SD 50.1 fl (35.1-43.9); White Blood Count 10.1 K/mm3 (4.4-11.0)
[2021-07-20 10:47] LABS: International Normalized Ratio 1.1; Prothrombin Time (Protime)PT. 13.1 SECONDS (11.7-14.9)
[2021-07-20 10:48] LABS: Partial Thromboplast Time 29.2 Seconds (24.1-36.2)
[2021-07-20 11:35] LABS: AST(SGOT) 17 U/L (15-37); Alanine Aminotransfer ALT/SGPT 27 U/L (13-56); Albumin, Serum 3.1 g/dL (3.2-5.0); Alkaline Phosphatase 78 U/L (45-117); Bilirubin, Direct 0.16 mg/dL (0.00-0.30); Globulin 4.2 g/dL (2.2-4.2); Magnesium 1.7 mg/dL (1.6-2.6); Protein, Total 7.3 g/dL (6.4-8.2); Thyroid Stim Hormone (TSH) 0.71 uIU/mL (0.358-3.74)
[2021-07-20 11:48] LABS: Anion Gap 7 (5-15); BUN 16 mg/dL (7-18); Calcium,Total 9.4 mg/dL (8.5-10.1); Chloride 98 mmol/L (98-107); EST Glomerular Filtration Rate 74 mL/min (>60); Est Glom Filt Rate - Afr Amer 89 mL/min (>60); Glucose 118 mg/dL (74-106); Potassium 4.4 mmol/L (3.5-5.1); Sodium Level 133 mmol/L (136-145)
[2021-07-20 13:30] LABS: Hemoglobin A1c 6.6 % (3.8-5.6)
--- NOTE | 2021-07-21 14:10 | RAD_ITS ---
STUDY: XR Chest 2 Views 07/21/2021 2:01 PM REASON FOR EXAM: Female, 76 years old. PREOP COMPARISON: 01/27/2021 TECHNIQUE: XR Chest 2 Views FINDINGS: There is no demonstrated pleural abnormality. Loop recorder noted. Metallic leads in the spinal canal may suggest spinal stimulator leads. Normal heart size. Normal mediastinum. Normal nasrin. Prominent appearing increased interstitial lung markings. Normal visualized pulmonary arteries. There is atherosclerotic calcification of the aortic arch with tortuosity. There are diffuse degenerative changes of the visualized thoracic spine. There is degenerative osteoarthritis of the bilateral shoulders. There is no demonstrated abnormality of the visualized soft tissue structures of the upper abdomen. RAD/Chest PA and Lateral IMPRESSION: There are no acute findings. Electronically Signed: Jesús Hayden MD at 16:57 EST , Service support ,
[2021-07-29] VITALS (12 sets, daily range): BP systolic 116–167; BP diastolic 38–72; PULSE 65–76; RESP 16–20; TEMP 35.7–36.7; O2SAT 95–100; BMI 28.3; BMI 31.6
[2021-07-29 09:46] LABS: Bedside Glucose 223 mg/dL (70-110)
[2021-07-29] MEDS: Lactated Ringers 1,000 ML 999 ML IV ×2 (09:49→14:03)
[2021-07-29] MEDS: Gabapentin 600 MG Tablet PO (09:50)
[2021-07-29] MEDS: Acetaminophen 500 MG Tablet 1000 MG PO ×3 (09:50→23:07)
[2021-07-29] MEDS: Celecoxib 200 MG Capsule 400 MG PO (09:50)
[2021-07-29] MEDS: Insulin Lispro 100 UNIT/ML INSULN.PEN SC ×2 (09:56→21:49)
[2021-07-29] MEDS: Cefazolin 2 GM in 0.9% Normal Saline 100 ML IV (11:25)
[2021-07-29] MEDS: TXA 1000mg in NS100 100ml (IVPB at Incision) 660 MG IV (11:30)
[2021-07-29] MEDS: Lactated Ringers 1,000 ML 125 ML IV (12:00)
--- NOTE | 2021-07-29 12:36 | OP.PCM_ITS ---
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 Pilot reunion glenoid baseplate 2. Victorino reunion 36 mm, eccentric 2 mm Glenosphere 3. Victorino reunion 36mm, 4mm humeral liner 4. Victorino reunion reverse TSA humeral adapter tray 2mm 5. Victorino reunion humeral stem primary press-fit 11mm size Brief history/Operative indications: 76 yo f with history of left shoulder pain and cuff tear arthropathy. Patient failed conservative measures as mentioned in the H&P. After discussion of risk and benefits of reverse total shoulder replacement including but not limited to blood loss, DVTs, PEs, nerve vessel damage, infection, general risk of anesthesia including loss of life, instability and stiffness patient demonstrating understanding wish to proceed was able to sign informed consent. Medical clearance was obtained. Procedure: On the date of the procedure, patient's left upper extremity was marked in the preoperative area. Patient was taken back to the operating room where they were placed on the table in the supine position. Anesthesia assumed control of the C-spine and airway, then administered anesthetic. All bony prominences were identified well-padded, the head was secured and the patient was placed in the beachchair position at about 35? inclination. Anesthesia remained in control of the C-spine airway throughout the remainder of the procedure. Patient was then appropriately fastened to the table and the left upper extremity was prepped in a sterile fashion. The surgeons then scrubbed. Upon reentering the room, the left upper extremity was draped in a sterile fashion and the incision was marked out. Timeout was called, everyone agreed upon the side, the site, the procedure to be performed, patient identity and antibiotics given. Incision was taken down through skin and subcutaneous tissue, fat down to fascia. The stripe of the deltopectoral interval and cephalic vein were identified and blunt dissection was used to retract the deltoid. The cephalic vein was retracted laterally. Clavipectoral fascia was then incised and a cobra retractor was placed in the wound. The proximal one third of the pectoralis major insertion was released. Pectoralis tendon insertion was used to tenodesed the biceps tendon which was identified in the bicipital groove. Tenodesis was done with #1 Vicryl. Proximally we followed the biceps tendon after transecting it into the rotator interval. The rotator interval was split and the arm was externally rotated. The split was 1 cm medial to the bicipital groove. Subscapularis tendon was released. We released down the anterior portion of the humeral head and a marlow elevator was used to r elease the inferior portion of the humeral head. The arm was externally rotated and the shoulder was dislocated. The humeral head was then cut at its natural retroversion. Once his humeral head cut was made humerus was retracted out of the way and the glenoid was exposed. After exposing the glenoid, the labrum and the remaining proximal biceps were debrided. At this time we are able to view t he entire outer edge of the glenoid. A central pin was placed we sequentially reamed over this central pin to 36 mm. Once this was completed the central screw was measured and found to be. The glenoid baseplate was screwed into place. Wound was closely irrigated out with normal saline we then drilled sequentially for 2 screws. Screws were placed superiorly and inferiorly and tightened down the screws. Once the screws were appropriately tightened into place the glenoid baseplate was compressed against the exposed subchondral bone. A 36 mm glenosphere was impacted into place engaging the [place] taper. Attention was then turned towards the humerus. The humerus was again externally rotated exposing the proximal portion of the humerus. Central canal finder was then used to open up the canal. We reamed to a 11mm reamer. We then broached to a 11mm stem. We trialed the 4mm liner, with the 2mm humeral baseplate. We obtained an adequate reduction at this time with a nice stable shoulder. Good internal rotation to the gluteus, forward elevation to 140?, external rotation to 20?. Final components were then assembled on the back table, trials were removed and the wound was copiously irrigated with normal saline after dislocating the shoulder. Once the final components were assembled they were impacted into place. Shoulder was then reduced and found to be stable with good range of motion. Subscapularis tendon was repaired using #2 FiberWire. The wound was with chlorhexidine solution then copiously irrigated out with a 1 L normal saline lavage. The deltopectoral fascia was then closed using #1 Vicryl skin was closed using 2-0 Vicryl interrupted sutures and final skin closure was done with 3-0 Monocryl. Steri-Strips are placed for final skin closure. Sterile dressing was placed patient was then placed in a sling and awakened by anesthesia. Patient was then transferred to the PACU for recovery. Postoperative plan: Patient will be admitted to the hospital overnight. They will get physical therapy starting in 2 weeks with normal postoperative regimen. Patient will be placed on aspirin 81 mg twice daily for DVT prophylaxis. The first postoperative appointment will be in 2 weeks for wound check and initiation of phase 1 physical therapy. During the course of the procedure the physician assistant administrator played a vital role. His intimate knowledge of my steps in the procedure aided in safe and expedient completion of the procedure. The PA played a vital rolls in positioning particularly in obtaining the appropriate beach chair position and securing the patient's body and head to the table. The PA was also vital in the retraction of soft tissues during the exposure and especially the glenoid work as this is a vital part of the procedure to prevent neurovascular damage. the PA was also vital and protecting soft tissues during times of bony cuts and reaming. He also played a vital role in closure with my direct supervision. The PA was also important during reduction and dislocation of the joint and trials intraoperatively. Admit VTE Documentation VTE Present on Admission: No VTE Mechan Device Prophylaxis: SCD's VTE Pharm Prophylaxis ordered?: Yes
[2021-07-29] MEDS: TXA 1000mg in NS100 100ml (IVPB at Closure) 660 MG IV (12:40)
--- NOTE | 2021-07-29 13:30 | RAD_ITS ---
STUDY: X-RAY - LEFT SHOULDER REASON FOR EXAM: Female, 76 years old. Post op -- AP and Lateral X-Ray of operative shoulder in PACU TECHNIQUE: 2 view(s) of the shoulder. COMPARISON: None. FINDINGS: The patient is status post left shoulder replacement. There is good alignment. Increased markings at the left lung base suggestive of left basilar atelectasis and/or infiltrate with blunting of the left costophrenic angle. RAD/Shoulder min 2 Views IMPRESSION: Status post left shoulder replacement. There is good alignment. Increased markings at the left lung base with blunting of the left costophrenic angle. Electronically Signed: Gonzalo Jordan MD at 14:10 EST , Service support ,
[2021-07-29 14:11] LABS: Bedside Glucose 105 mg/dL (70-110)
--- NOTE | 2021-07-29 14:54 | PCM.PN.HOSP ---
Documented by User: LEANN Gutierrez 07/29/21 15:08 Subjective Subjective Seen and examined. Patient lying in bed no distress noted. Sling intact to left shoulder. Objective Data Objective Data Vital Signs: Vital Signs Temp Pulse Resp BP Pulse Ox 96.2 F L 71 16 146/61 H 100 07/29/21 14:29 07/29/21 14:29 07/29/21 14:29 07/29/21 14:29 07/29/21 14:29 Oxygen Flow Rate (L/min) 4 Oxygen Delivery Method Nasal Cannula Weight: 165 lb 5.547 oz Body Mass Index (BMI) 28.3 Intake & Output: Intake and Output for Last 24 Hours 07/27/21 07/28/21 07/29/21 23:59 23:59 23:59 Intake Total 2709.5 / 2709.5 Balance 2709.5 / 2709.5 Lab / Micro Data Result Diagrams: 07/20/21 10:16 07/20/21 10:16 Labs: Laboratory Results - last 24 hr 07/29/21 09:28: POC Glucose 223 H 07/29/21 14:05: POC Glucose 105 Micro: Microbiology 07/20/21 10:16 Swab (Method) Nasal Screen MRSA/MSSA - Final Radiography Diagnostic Testing: Radiology Impression Shoulder X-Ray 07/29/21 13:30 IMPRESSION: Status post left shoulder replacement. There is good alignment. Increased markings at the left lung base with blunting of the left costophrenic angle. Electronically Signed: Gonzalo Jordan MD at 14:10 EST , Service support , Physical Exam Const alert, oriented x3 and no apparent distress HEENT head/scalp atraumatic Head and Scalp: normocephalic Eyes conjunctivae normal and no scleral icterus Neck supple General: trachea midline Resp normal respiratory effort, normal air movement and clear to auscultation bilaterally Effort and Inspection: able to speak in complete sentences and symmetric chest movement Cardio regular rate, regular rhythm, S1 normal heart sound and S2 normal heart sound GI normal to inspection, nondistended, normoactive bowel sounds, soft to palpation and non-tender Extremity General Extremity: normal exam except as noted Left Upper Extremity: shoulder joint Shoulder Joint Exam - Left: inspection (Sling in place, dressing dry and intact), palpation (Nontender), ROM (Tested due to surgery) and neurovascular exam (Intact) Skin no rashes or lesions noted and skin turgor normal Neuro moves all extremities, no focal motor deficits and no sensory deficits noted Sensorium / Orientation: awake and alert Speech: speech normal Psych affect normal Assessment & Plan Assessment/Plan (1) Hyperlipidemia: QUALIFIERS: Hyperlipidemia type: mixed hyperlipidemia Qualified Code(s): E78.2 - Mixed hyperlipidemia (2) Hypertension: QUALIFIERS: Hypertension type: primary hypertension Qualified Code(s): I10 - Essential (primary) hypertension (3) Gastroesophageal reflux disease: QUALIFIERS: Esophagitis presence: without esophagitis Qualified Code(s): K21.9 - Gastro-esophageal reflux disease without esophagitis (4) Diabetes mellitus: QUALIFIERS: Diabetes mellitus complication status: without complication Diabetes mellitus skilled nursing insulin use: without terminal computer operator use Diabetes mellitus type: type 2 Qualified Code(s): E11.9 - Type 2 diabetes mellitus without complications (5) Asthma: QUALIFIERS: Asthma complication type: uncomplicated Asthma persistence: unspecified Asthma severity: unspecified severity Qualified Code(s): J45.909 - Unspecified asthma, uncomplicated PLAN: 1. Primary hypertension -Continue home medication regimen including Lasix, metoprolol, olmesartan. -Vital signs per protocol, currently stable 2. Hyperlipidemia -Patient not currently on statin 3. GERD -Continue pantoprazole 4. Diabetes mellitus type 2 -Continue home medication regimen including metformin -ACHS blood sugars with sliding scale insulin ordered -Hemoglobin A1c 6.6 on 07/20/2021 5. Asthma -Stable -Continue patient's home medication regimen including as needed albuterol, routine budesonide 6. Chronic anemia -Continue iron supplementation -CBC daily while admitted -Preop labs shows patient at baseline 11.6 7. Left reverse total shoulder -Postop day 0 -Pain medication regimen per Ortho -Maintain sling per Ortho recommendations -PT and OT following DVT prophylaxis-SCDs This patient was seen by Bettie Batres NP-C under the supervision of Dr. Acevedo. 13 minutes spent in clinical coordination of patient's plan of care. Documented by User: Dr. Mg Acevedo MD 07/29/21 18:01 Subjective Subjective Patient had left reverse total shoulder replacement by Dr. Lomax today under general anesthesia. Denies any pain over left shoulder. Patient is spontaneously voided urine 1 time and wants to go bathroom for urination. Denies any chest pain, shortness of breath. Objective Data Lab / Micro Data Result Diagrams: 07/20/21 10:16 07/20/21 10:16 Physical Exam Narrative Physical exam General: Alert, Oriented x3, Cooperative HEENT: Atraumatic, PERRLA, EOMI, Normocephalic Oral: No Gingival or Mucosal Lesions/ Ulcerations Neck: Supple, No JVD, Negative Carotid Bruits Lungs: Air entry diminished in bilateral lung bases. No crepitation/rhonchi Cardiovascular: Regular rate, Regular Rhythm, Normal S1, Normal S2, No murmurs Abdomen: Bowel Sounds Present, Soft, Non Tender, Non-Distended : No renal angle tenderness. No suprapubic tenderness. Extremities: Left shoulder. Upper extremity under U-sling. No ankle edema, Capillary Refill Less than 3 Seconds Skin: No rashes, No breakdown Musculoskeletal: No Tenderness to Palpation of Joints or Extremities. Nail capillary blood flow and left radial pulse palpable. Neurological: Cranial nerves II-XII grossly intact, DTR 2+/4 and Symmetrical, Neuro grossly intact Psych/Mental Status: Normal Affect, Appropriate. Assessment & Plan Assessment/Plan (1) Hypertension: PLAN: This patient was seen in conjunction with SANDI Alexandre. I have independently interviewed and examined the patient and reviewed pertinent history, examination findings, laboratory and plan of management. I have reviewed the note and agree with the documented findings with the few additional points. In brief, patient is admitted under Dr. Lomax service for left reverse total shoulder replacement on 07/29/2021. Patient spontaneously voided urine once and wants to go to bathroom now. No chest pain, shortness of breath, tachypnea. No abdominal pain. Patient has history of asthma but not in exacerbation. Continue home budesonide inhaler and albuterol as needed for wheezing/shortness of breath. Diabetes mellitus type 2: A1c 6.6 on 07/20/2021. Glucose 118 on 07/20/2021. Accu-Chek before meals and at bedtime and cover with Humalog sliding scale. BP: Blood pressure is usually controlled in May and earlier today. Most recent 167/72. Continue home antihypertensive medication. Other comorbidities as listed above. Home medication reconciliation done. I have discussed my assessment with SANDI Alexandre and orders have been reviewed. Charges/Coding Visit Charges Office Visits / Consults: [id number] IP Consult L3
[2021-07-29] MEDS: Ferrous Sulfate 325 MG Tablet PO (17:05)
[2021-07-29] MEDS: Aspirin 81 MG TAB.CHEW PO (17:05)
[2021-07-29 17:06] LABS: Bedside Glucose 87 mg/dL (70-110)
[2021-07-29] MEDS: Ensure Surgery 237 ML LIQUID PO (17:08)
[2021-07-29] MEDS: Albuterol 2.5 MG/3 ML VIAL.NEB. INHALATION (19:24)
[2021-07-29] MEDS: Budesonide Respules 0.5 MG/2 ML AMPUL.NEB. INHALATION (19:25)
[2021-07-29] MEDS: Cefazolin 1 GM/50 ML BAG IV (19:46)
[2021-07-29] MEDS: Senna/Docusate Sodium 1 Tablet 2 TABLET PO (21:50)
[2021-07-29] MEDS: Mirtazapine 15 MG Tablet PO (21:51)
[2021-07-29] MEDS: HYDROcodone Bitartrate/Apap 5/325 Tablet PO (21:53)
[2021-07-29 22:15] LABS: Bedside Glucose 196 mg/dL (70-110)
[2021-07-30] VITALS (11 sets, daily range): BP systolic 104–175; BP diastolic 52–99; PULSE 66–78; RESP 16–18; TEMP 36.3–36.9; O2SAT 93–100
[2021-07-30] MEDS: traMADol 50 MG Tablet PO ×2 (00:19→06:21)
[2021-07-30] MEDS: Cefazolin 1 GM/50 ML BAG IV (03:41)
[2021-07-30 04:22] LABS: Hematocrit 35.2 % (37-47); Hemoglobin 11.2 g/dL (12.0-15.0); Mean Corp Hgb Conc 31.8 g/dL (32-36); Mean Corpuscular Hgb 32.7 pg (27.0-32.0); Mean Corpuscular Volume 102.6 fL (81-99); Mean Platelet Vol. 10.7 fl (6.2-12.0); Platelet Count 259 K/mm3 (150-450); RBC Distribution Width CV 13.6 % (11.6-14.6); RBC Distribution Width SD 51.7 fl (35.1-43.9); Red Blood Count 3.43 M/mm3 (4.2-5.4); White Blood Count 14.6 K/mm3 (4.4-11.0)
[2021-07-30 04:45] LABS: Anion Gap 5 (5-15); BUN 20 mg/dL (7-18); BUN/Creat Ratio 24.8 RATIO (10-20); Calcium,Total 8.2 mg/dL (8.5-10.1); Chloride 105 mmol/L (98-107); EST Glomerular Filtration Rate 73 mL/min (>60); Est Glom Filt Rate - Afr Amer 89 mL/min (>60); Estimated Creatinine Clearance 50.05 ml/min; Glucose 122 mg/dL (74-106); Potassium 4.4 mmol/L (3.5-5.1); Sodium Level 135 mmol/L (136-145)
[2021-07-30] MEDS: Acetaminophen 500 MG Tablet 1000 MG PO ×2 (05:39→15:33)
[2021-07-30] MEDS: Levothyroxine 125 MCG Tablet PO (05:39)
[2021-07-30 06:31] LABS: Bedside Glucose 130 mg/dL (70-110)
[2021-07-30] MEDS: Albuterol 2.5 MG/3 ML VIAL.NEB. INHALATION ×3 (07:19→19:54)
[2021-07-30] MEDS: Budesonide Respules 0.5 MG/2 ML AMPUL.NEB. INHALATION ×2 (07:19→19:54)
[2021-07-30] MEDS: Ondansetron 4 MG/2 ML Vial IV ×3 (08:00→21:07)
--- NOTE | 2021-07-30 08:11 | NURSING ---
staff emergency called. maddie mayers reports pt had seizure like activity, hr dropped in the 30s and pts speech became slurred. patel pa notified as he was on the unit. emergency line called and requested hospitalist be paged to 216. bp 140/64, hr 67. blood sugar 141. ray came to room followed by dr enrique. dr matthew is currently in room as well.
--- NOTE | 2021-07-30 08:18 | EKG12_ITS ---
Test Reason : SEIZURE Blood Pressure : / mmHG Vent. Rate : 066 BPM Atrial Rate : 066 BPM P-R Int : 128 ms QRS Dur : 078 ms QT Int : 414 ms P-R-T Axes : 009 -22 015 degrees QTc Int : 434 ms Normal sinus rhythm Voltage criteria for left ventricular hypertrophy Abnormal ECG Confirmed by FELICIA SAUCEDA, CHERISE ([id number]), marketing editor DOROTEO HERNANDEZ ([id number]) on 07/31/2021 9:18:43 AM Referred By: Tyson Lomax Confirmed By:CHERISE DUARTE MD
[2021-07-30] MEDS: oxyCODONE 5 MG Tablet PO (08:34)
[2021-07-30] MEDS: Ferrous Sulfate 325 MG Tablet PO ×2 (08:35→16:19)
[2021-07-30] MEDS: Aspirin 81 MG TAB.CHEW PO (08:35)
[2021-07-30] MEDS: metFORMIN (XR) 500 MG Tablet PO (08:35)
[2021-07-30] MEDS: Folic Acid 1 MG Tablet PO (08:35)
[2021-07-30 08:46] LABS: Bedside Glucose 141 mg/dL (70-110)
--- NOTE | 2021-07-30 08:51 | NURSING ---
pt has since admitted that she has previously had symptoms as mentioned after surgery
[2021-07-30] MEDS: Ensure Surgery 237 ML LIQUID PO ×3 (09:29→16:19)
--- NOTE | 2021-07-30 09:39 | NURSING ---
Daughter contacted in regards to staff emergency this AM with the seizure like activity, unresponsive period and tremors/HR dropping to 30 BPM. Daughter said should would be coming in this AM to visit. EKG was obtained. Patient back to normal baseline.
--- NOTE | 2021-07-30 10:05 | PCM.PN.ORT ---
Subjective Subjective The patient was sitting in bedside chair upon examination. Patient denies any chest pain, shortness of breath, dizziness, lightheadedness, nausea or vomiting, or calf pain. This morning patient had episode of seizure-like symptoms with shaking of her body with a drop in heart rate. Nursing was present when this occurred. Patient was reporting increased pain in her left shoulder. Medicine was involved with management. EKG was ordered. Patient's symptoms resolved after approximately 20 to 30 minutes. Patient did eventually acknowledge that this has happened in the past from surgeries. She is also followed by Dr. Camacho for chronic pain medication. She is on [place] chronically. Patient had tramadol ordered postoperatively. Patient currently denies any numbness and tingling in the left upper extremity. [place] and tramadol were both stopped. While in the hospital she will be placed on oxycodone 5 mg as well as extra strength Tylenol. Plan will be for resumption of her [place] at discharge. Nursing also reports the daughter stated this morning that she is not able to take care of her mother and patient will need assistance postoperatively and possible placement. Case was discussed with web content & social media manager/case management. They are involved with appropriate discharge planning. Objective Data Objective Data Vital Signs: Vital Signs Temp Pulse Resp BP Pulse Ox 98.1 F 66 16 117/57 L 93 07/30/21 09:49 07/30/21 09:49 07/30/21 09:49 07/30/21 09:49 07/30/21 09:49 Oxygen Flow Rate (L/min) 2 Oxygen Delivery Method Room Air Weight: 83.7 kg Body Mass Index (BMI) 31.6 Intake & Output: Intake and Output for Last 24 Hours 07/28/21 07/29/21 07/30/21 23:59 23:59 23:59 Intake Total 3759.5 / 4559.5 850 / 850 Output Total 1900 / 1900 Balance 3759.5 / 2659.5 -1050 / -1050 Lab / Micro Data Result Diagrams: 07/30/21 04:16 07/30/21 04:16 Labs: Laboratory Results - last 24 hr 07/29/21 14:05: POC Glucose 105 07/29/21 16:35: POC Glucose 87 07/29/21 21:48: POC Glucose 196 H 07/30/21 04:16: WBC 14.6 H, RBC 3.43 L, Hgb 11.2 L, Hct 35.2 L, MCV 102.6 H, MCH 32.7 H, MCHC 31.8 L, RDW Std Deviation 51.7 H, RDW Coeff of Taran 13.6, Plt Count 259, MPV 10.7 07/30/21 04:16: Sodium 135 L, Potassium 4.4, Chloride 105, Carbon Dioxide 25.0, Anion Gap 5, BUN 20 H, Creatinine 0.80, Estim Creat Clear Calc 50.05, Est GFR (MDRD) Af Amer 89, Est GFR (MDRD) Non-Af 73, BUN/Creatinine Ratio 24.8 H, Glucose 122 H, Calcium 8.2 L 07/30/21 06:23: POC Glucose 130 H 07/30/21 08:08: POC Glucose 141 H Micro: Microbiology 07/20/21 10:16 Swab (Method) Nasal Screen MRSA/MSSA - Final Radiography Diagnostic Testing: Radiology Impression Shoulder X-Ray 07/29/21 13:30 IMPRESSION: Status post left shoulder replacement. There is good alignment. Increased markings at the left lung base with blunting of the left costophrenic angle. Electronically Signed: Gonzalo Jordan MD at 14:10 EST , Service support , Physical Exam Narrative Vital signs stable, afebrile Dressing is clean, dry, intact Ultra-sling fitting appropriately Sensation intact to axillary, radial, median, and ulnar distribution Motor intact to AIN, PIN, and ulnar nerve Const alert, oriented x3 and no apparent distress Assessment & Plan Assessment/Plan (1) Status post reverse total arthroplasty of left shoulder: PLAN: 1. S/P left reverse total shoulder arthroplasty POD #1 2. Continue Pain Medications: Patient's tramadol and [place] were stopped. Discussed with medicine. Oxycodone 5 mg was placed and will continue with Tylenol. Plan will be at discharge for patient to go back on her [place] per pain management. 3. DVT Prophylaxis: Take 81 mg aspirin twice daily for 4 weeks postoperatively for DVT prophylaxis 4. PT/OT: Continue with UltraSling at all times except to come out for range of motion exercises of the elbow and pendulum exercise 3 times daily. No range of motion of the postoperative shoulder until outpatient physical therapy begins. Outpatient physical therapy will begin 2 weeks postoperatively after follow-up with [facility] with x-rays and incision check. 5. H & H: 11.2/35.2, asymptomatic. Postoperative anemia secondary to acute blood loss from surgery without any intra operative complications. 6. Reactive leukocytosis: Currently 14.6, afebrile. 7. Continue postoperative medical management per medicine: Case was discussed in detail with the hospitalist. Due to patient's episode this morning we would like to monitor her today and plan will be for possible discharge tomorrow. Case management involved with appropriate discharge planning. 8. Encouraged Incentive Spirometry 9. Disposition: Patient will require additional stay due to episode this morning. We will continue to monitor her throughout the day. She will be assessed by physical therapy and Occupational Therapy. Patient's daughter states that she is not able to take care of her at home and patient does live by herself. Patient will require postoperative discharge planning in which case management/web content & social media manager is involved. I have reviewed the [place] Automated Rx Reporting System (OARRS) report for this patient for refill pattern and other prescriber involvement as part of the appropriate surveillance for the provision of acute and chronic controlled medications. The report was requested and reviewed on the date of this entry and was considered in the prescribing process.
--- NOTE | 2021-07-30 10:53 | CASEMGMT ---
Social Work Nursing reports that dgt called in this morning and states she cannot take care of pt at home. VENICE met with pt and dgt and introduced self and role of SW. SW inquired about d/c plan and Pt and dgt stating that pt will not go to a care home. SW inquired if pt would be returning home and then pt states she will need to go to rehab for a few days before she returns home. SW provided pt with a list of SNF providers including quality and resource use data and consistent with the patient's preferred geographic region medical needs and insurance network. SW explained [employer] insurance coverage of SNF. Pt and dgt stating they would like pt to go to TCU. SW explained that they may not have a bed available and pt will need a backup plan. VENICE informed them that SW will make referral to TCU but in the mean time a plan B will need to be discussed. VENICE left VM with Rhianna in TCU with referral and will follow up with pt once determination is made. LA Henriquez
[2021-07-30] MEDS: Losartan Potassium 50 MG Tablet PO (11:15)
[2021-07-30] MEDS: Pantoprazole Sodium 40 MG Tablet PO (11:16)
[2021-07-30] MEDS: Furosemide 40 MG Tablet PO (11:16)
[2021-07-30] MEDS: Famotidine 20 MG Tablet PO (11:16)
[2021-07-30] MEDS: Senna/Docusate Sodium 1 Tablet 2 TABLET PO (11:16)
[2021-07-30] MEDS: Potassium Chloride Oral Tablet 20 MEQ PO (11:16)
[2021-07-30] MEDS: Metoprolol(XL)Succ 50 MG Tablet PO (11:18)
[2021-07-30] MEDS: Insulin Lispro 100 UNIT/ML INSULN.PEN SC ×2 (11:29→21:08)
[2021-07-30 11:50] LABS: Bedside Glucose 241 mg/dL (70-110)
[2021-07-30] MEDS: 0.9% Saline Lock 10 ML Syringe IV ×3 (13:31→21:07)
[2021-07-30] MEDS: Morphine 2 MG/ML Syringe IV (13:31)
--- NOTE | 2021-07-30 13:35 | PN.HOSP_ITS ---
Documented by User: Andrew DOW 07/30/21 13:49 Subjective Subjective Patient is a 76-year-old female comfortably resting in a chair, alert and orient x3. Patient was observed having some rhythmic jerks from nursing staff, patient reports that this is normal for her after surgery and relates it to the a nesthesia. Denies development of any symptoms overnight. Does not appear in acute distress. Objective Data Objective Data Vital Signs: Vital Signs Temp Pulse Resp BP Pulse Ox 98.1 F 74 16 117/57 L 93 07/30/21 09:49 07/30/21 11:18 07/30/21 09:49 07/30/21 09:49 07/30/21 09:49 Oxygen Flow Rate (L/min) 2 Oxygen Delivery Method Room Air Weight: 184 lb 8.43 oz Body Mass Index (BMI) 31.6 Intake & Output: Intake and Output for Last 24 Hours 07/28/21 07/29/21 07/30/21 23:59 23:59 23:59 Intake Total 3759.5 / 4559.5 850 / 850 Output Total 1900 / 1900 Balance 3759.5 / 2659.5 -1050 / -1050 Lab / Micro Data Result Diagrams: 07/30/21 04:16 07/30/21 04:16 Labs: Laboratory Results - last 24 hr 07/29/21 14:05: POC Glucose 105 07/29/21 16:35: POC Glucose 87 07/29/21 21:48: POC Glucose 196 H 07/30/21 04:16: WBC 14.6 H, RBC 3.43 L, Hgb 11.2 L, Hct 35.2 L, MCV 102.6 H, MCH 32.7 H, MCHC 31.8 L, RDW Std Deviation 51.7 H, RDW Coeff of Taran 13.6, Plt Count 259, MPV 10.7 07/30/21 04:16: Sodium 135 L, Potassium 4.4, Chloride 105, Carbon Dioxide 25.0, Anion Gap 5, BUN 20 H, Creatinine 0.80, Estim Creat Clear Calc 50.05, Est GFR (MDRD) Af Amer 89, Est GFR (MDRD) Non-Af 73, BUN/Creatinine Ratio 24.8 H, G lucose 122 H, Calcium 8.2 L 07/30/21 06:23: POC Glucose 130 H 07/30/21 08:08: POC Glucose 141 H 07/30/21 11:27: POC Glucose 241 H Micro: Microbiology 07/20/21 10:16 Swab (Method) Nasal Screen MRSA/MSSA - Final Radiography Diagnostic Testing: Radiology Impression Shoulder X-Ray 07/29/21 13:30 IMPRESSION: Status post left shoulder replacement. There is good alignment. Increased markings at the left lung base with blunting of the left costophrenic angle. Electronically Signed: Gonzalo Jordan MD at 14:10 EST , Service support , Physical Exam Const alert, oriented x3 and no apparent distress HEENT head/scalp atraumatic and moist oral mucous membranes Head and Scalp: normocephalic Eyes PERRL, EOMs intact bilaterally and conjunctivae normal Neck no lymphadenopathy, supple and no JVD Resp normal respiratory effort, no retractions and no use of accessory muscles Cardio regular rate, regular rhythm and no JVD GI normal to inspection, nondistended, normoactive bowel sounds, soft to palpation and non-tender Extremity normal to inspection, full ROM and no clubbing, cyanosis or edema Skin no rashes or lesions noted, no wounds and skin turgor normal Neuro CN's II-XII intact bilaterally Psych affect normal Assessment & Plan Assessment/Plan (1) Hyperlipidemia: QUALIFIERS: Hyperlipidemia type: mixed hyperlipidemia Qualified Code(s): E78.2 - Mixed hyperlipidemia (2) Hypertension: QUALIFIERS: Hypertension type: primary hypertension Qualified Code(s): I10 - Essential (primary) hypertension (3) Gastroesophageal reflux disease: QUALIFIERS: Esophagitis presence: without esophagitis Qualified Code(s): K21.9 - Gastro-esophageal reflux disease without esophagitis (4) Diabetes mellitus: (5) Asthma: PLAN: Patient is a 76-year-old female who presents to the hospital medic ine service on consult from orthopedics who admitted patient for reverse total arthroplasty of left shoulder. 1) HTN Stable, continue home Lasix, metoprolol and olmesartan. 2) GERD Continue PPI. 3) DM2 Continue metformin, continue Accu-Cheks sliding scale insulin. 4) asthma Not in acute exacerbation. Continue scheduled budesonide and albuterol as needed. 5) chronic anemia Currently 11.2, stable from admission, continue iron supplementation. 6) left shoulder osteoarthritis Status post left reverse total shoulder arthroplasty, POD 1. Management per orthopedics. 7) nonspecific jerking On evaluation patient was observed having rhythmic jerking. Patient reports that this is normal for her after surgery and has been told this is related to her anesthesia in the past. Patient does not have any seizure history. No postictal period observed. Will observe overnight and will plan on discharge on 07/31. DVT prophylaxis - SCDs Patient seen by Andrew Rollins PA-C, under the supervision of Dr. Bro. Time spent on patient care: 10 minutes. Documented by User: Dr. Jennifer Bro MD 07/30/21 16:01 Objective Data Lab / Micro Data Result Diagrams: 07/30/21 04:16 07/30/21 04:16 Charges/Coding Addendum Addendum: This patient was seen in conjunction with VICTOR M Cornejo. I have independently interviewed and examined the patient and reviewed pertinent historical, laboratory, and other data. Please refer to VICTOR M Cornejo's note for his patient's presentation, findings, and recommendations. I have reviewed and his note and concur with his documentation Patient was seen and examined. Early on the morning, she was observed to have jerking movement of her extremities, with heart rate dipping down to the 30s. Patient had not received her [place] since 9 PM. She was on tramadol. She denied feeling anxious. Vitals otherwise were stable. Blood sugar was normal. EKG showed normal sinus rhythm, QTC was 436. She complained of nausea. Was given Zofran. Temp Pulse Resp BP Pulse Ox 98.1 F 74 16 117/57 L 93 Physical Exam: Gen: Appears comfortable, not pale, not jaundiced CVS:HS I +II, regular, no murmurs RESP: Diminished at lung bases GI: BS present and normal, soft, nontender, no palpable organs EXT:No edema, left shoulder in a sling KUB: Large amount of 2 ASSESSMENT: 1. Postop day #1 status post reverse total arthroplasty of the left shoulder 2. Hypertension 3. GERD 4. Type II DM 5. Asthma Constipation Plan: Continue on scheduled Tylenol, oxycodone as needed DC tramadol Stool softeners, soapsuds enema PT and OT to evaluate and treat Repeat blood work in a.m. Visit Charges Inpatient E&M: 62416 [facility] Hosp L3
--- NOTE | 2021-07-30 14:28 | CASEMGMT ---
Social Work Phone call to Rhianna in TCU and they are able to accept pt tomorrow pending insurance precert. SW met with pt and notified and pt is appreciative. Pt states she will notify her dgt. Plan: TCU, on Tuesday, pending insurance [place]
--- NOTE | 2021-07-30 14:55 | RAD_ITS ---
STUDY: X-RAY - ABDOMEN/PELVIS REASON FOR EXAM: Female, 76 years old. Emesis, concern for ileus TECHNIQUE: Single AP view of the abdomen / pelvis. COMPARISON: None. FINDINGS: Mild increased markings at the right lung base suggestive of either atelectasis and/or scarring. There is a moderate amount of colonic fecal material. The visualized liver, spleen and kidneys are grossly normal in size and morphology. Normal soft tissue structures. There are diffuse degenerative changes of the visualized lumbar spine. Pain stimulator device is seen. RAD/Abdomen Single View (Portable) IMPRESSION: Large amount of fecal material is seen throughout the colon. Electronically Signed: Gonzalo Jordan MD at 15:16 EST , Service support ,
--- NOTE | 2021-07-30 15:05 | CASEMGMT ---
RN JAX NOTE: Intro role of CM to patient and [facility] form explained re: Observation status for treatment of left reverse total shoulder arthroplasty. Explained hospitalization will be paid per her insurance policy for Outpatient billing and condition will continue to be evaluated for Inpt necessity. Also let pt know that [facility] sends paper in the billing packet with their phone number if questions arise. Discussed Pharmacy section of [facility] form and self administered medication guideline. Pt verbalizes understanding and does not have further questions. Form signed, copy made and placed in chart, and original given to pt. Mindy BAH RN CM
[2021-07-30 16:26] LABS: Bedside Glucose 120 mg/dL (70-110)
[2021-07-30 21:21] LABS: Bedside Glucose 215 mg/dL (70-110)
[2021-07-31] VITALS (17 sets, daily range): BP systolic 75–171; BP diastolic 40–85; PULSE 76–114; RESP 16–22; TEMP 35.8–37.3; O2SAT 89–99
--- NOTE | 2021-07-31 01:02 | RAD_ITS ---
HISTORY: altered mental status EXAMINATION/TECHNIQUE: XR Chest 1 View: COMPARISON: CT chest January 30, 2021 FINDINGS: LINES/DEVICES: Left chest loop recorder. Intrathecal nerve stimulator. Overlying telemetry leads. Left shoulder arthroplasty. LUNGS: Mild linear subsegmental atelectasis in the lower lungs. No airspace consolidation. Unremarkable interstitium. No effusion. No pneumothorax. MEDIASTINUM: No cardiomegaly. Aortic atherosclersosis. MUSCULOSKELETAL: No acute osseous finding. 1 cm dense calcification inferior to the right clavicle better seen on prior CT. RAD/Chest 1 View (Portable) IMPRESSION: Mild basilar atelectasis. No other evidence of acute cardiopulmonary process. at 0238 Reported and signed by: Dayday Cerda MD Electronically Signed: Dayday Cerda MD at 2:37 EST Tel , Service support ,
--- NOTE | 2021-07-31 01:02 | RAD_ITS ---
HISTORY: Diarrhea EXAMINATION/TECHNIQUE: XR Abdomen 1 View: COMPARISON: March 05, 2021 CT abdomen pelvis FINDINGS: LINES AND TUBES: Intrathecal nerve stimulator. Right hip arthroplasty. BOWEL GAS PATTERN: Non-obstructive. No bowel or stomach distention. FREE AIR: None visualized. ORGANOMEGALY: Not seen. CALCIFICATIONS: Few pelvic phleboliths. LOWER CHEST: No focal consolidation. BONES AND SOFT TISSUES: No acute pathology. Moderate lumbar spondylosis. RAD/Abdomen Single View (Portable) IMPRESSION: No acute finding at 0242 Reported and signed by: Dayday Cerda MD Electronically Signed: Dayday Cerda MD at 2:41 EST Tel , Service support ,
--- NOTE | 2021-07-31 01:08 | PCM.PN.BLA ---
Progress Note Called to the bedside because patient was having hypotension with systolic blood pressure in the 70s. Also reportedly patient was confused. An order was given for normal saline 1 L to go at wide open. Patient was then examined at bedside. Per nurse patient had a loose bowel movement after an enema earlier in the day. Patient was being changed at the time that hospitalist entered into patient room. Loose greenish bowel movements on the floor. Per nurse patient vomited and there is concern about aspiration. On examination patient is alert and appears confused. Vomitus around lips of mouth Heart sounds S1, S2 present LCTA Abdomen, bowel sounds present, non tender non distended. Impression Hypotension Delirium Plan Normal Saline as ordered CBC and BMP stat Telemetry monitoring Check lactic acid CXR stat; kub stat. If still hypotensive after one liter will give full 30ml/kg bolus DC lasix; metoprolol and potassium
[2021-07-31 01:25] LABS: Absolute Neutrophil Count 14.8 X10^3/uL (2.0-7.7); Basophil# 0.04 X10^3/uL; Basophil% 0.2 % (0-1); Eosinophil# 0.26 X10^3/uL; Eosinophils% 1.6 % (0-5); Hematocrit 40.8 % (37-47); Hemoglobin 12.8 g/dL (12.0-15.0); Lymphocyte % 4.3 % (19-41); Mean Corp Hgb Conc 31.4 g/dL (32-36); Mean Corpuscular Hgb 32.4 pg (27.0-32.0); Mean Corpuscular Volume 103.3 fL (81-99); Mean Platelet Vol. 10.9 fl (6.2-12.0); Monocyte# 0.63 X10^3/uL; Monocyte% 3.8 % (0-10); NRBC Flagged by Analyzer 0 % (0-5); Neutrophil # 14.75 X10^3/uL (2.7-7.7); Neutrophil % 89.6 % (47-70); Platelet Count 304 K/mm3 (150-450); RBC Distribution Width CV 13.7 % (11.6-14.6); RBC Distribution Width SD 52.1 fl (35.1-43.9); Red Blood Count 3.95 M/mm3 (4.2-5.4); White Blood Count 16.5 K/mm3 (4.4-11.0)
[2021-07-31 01:41] LABS: Anion Gap 6 (5-15); BUN 28 mg/dL (7-18); BUN/Creat Ratio 26.9 RATIO (10-20); Calcium,Total 9.3 mg/dL (8.5-10.1); Chloride 103 mmol/L (98-107); Creatinine, Serum 1.04 mg/dL (0.55-1.02); EST Glomerular Filtration Rate 55 mL/min (>60); Est Glom Filt Rate - Afr Amer 66 mL/min (>60); Glucose 144 mg/dL (74-106); Potassium 4.7 mmol/L (3.5-5.1); Sodium Level 134 mmol/L (136-145)
[2021-07-31] MEDS: 0.9% Normal Saline 1,000 ML 999 ML IV (01:45)
[2021-07-31 05:23] LABS: Reflex Lactate? Y
[2021-07-31 05:46] LABS: Absolute Lymphocyte Count 0.97 X10^3/uL (0.83-4.51); Absolute Neutrophil Count 15.9 X10^3/uL (2.0-7.7); Basophil# 0.08 X10^3/uL; Basophil% 0.4 % (0-1); Eosinophil# 0.38 X10^3/uL; Hemoglobin 10.9 g/dL (12.0-15.0); Lymphocyte # 0.97 X10^3/ul (0.83-4.51); Mean Corp Hgb Conc 31.1 g/dL (32-36); Mean Corpuscular Hgb 32.4 pg (27.0-32.0); Mean Corpuscular Volume 104.2 fL (81-99); Mean Platelet Vol. 10.9 fl (6.2-12.0); Monocyte# 1.73 X10^3/uL; NRBC Flagged by Analyzer 0 % (0-5); Neutrophil # 15.94 X10^3/uL (2.7-7.7); POSITIVE DIFFERENTIAL YES; Platelet Count 271 K/mm3 (150-450); RBC Distribution Width CV 13.8 % (11.6-14.6); RBC Distribution Width SD 52.8 fl (35.1-43.9); Red Blood Count 3.36 M/mm3 (4.2-5.4); White Blood Count 19.2 K/mm3 (4.4-11.0)
[2021-07-31 05:53] LABS: Differential Indicated SCAN CRITERIA MET
[2021-07-31 06:15] LABS: Differential Comment SCANNED
[2021-07-31 06:16] LABS: Anion Gap 6 (5-15); BUN 27 mg/dL (7-18); BUN/Creat Ratio 27.4 RATIO (10-20); Calcium,Total 8.6 mg/dL (8.5-10.1); Chloride 103 mmol/L (98-107); Creatinine, Serum 0.98 mg/dL (0.55-1.02); EST Glomerular Filtration Rate 58 mL/min (>60); Est Glom Filt Rate - Afr Amer 70 mL/min (>60); Estimated Creatinine Clearance 40.85 ml/min; Glucose 153 mg/dL (74-106); Potassium 4.3 mmol/L (3.5-5.1); Sodium Level 134 mmol/L (136-145)
[2021-07-31 06:26] LABS: Lactic Acid 1.5 mmol/L (0.4-1.9)
--- NOTE | 2021-07-31 06:49 | PN.ORTHO_ITS ---
Subjective Subjective The patient was sitting in bed upon examination. Patient denies any chest pain, shortness of breath, dizziness, lightheadedness, nausea or vomiting, or calf pain. Pain is controlled on medications. Nursing states overnight patient had episode of hypotension with tachycardia. She also had bowel movement over the floor. Medicine overnight ran multiple tests including KUB, chest x-ray, blood cultures, urinalysis. We are waiting on blood cultures. Patient's white blood cell count continues to increase. Plan is for patient to possibly go to the transitional care unit today with pre-CERT trying to get obtained. Patient also had episode on postoperative day #1 with seizure-like activity with shaking and drop in heart rate. EKG was ordered yesterday. Medicine has been involved assisting with patient. Patient has also been on nasal oxygen. She is on telemetry and currently in normal sinus rhythm. Objective Data Objective Data Vital Signs: Vital Signs Temp Pulse Resp BP Pulse Ox 98.1 F 87 16 138/74 H 99 07/31/21 04:00 07/31/21 04:00 07/31/21 04:00 07/31/21 04:00 07/31/21 04:00 Oxygen Flow Rate (L/min) 4 Oxygen Delivery Method Nasal Cannula Weight: 83.7 kg Body Mass Index (BMI) 31.6 Intake & Output: Intake and Output for Last 24 Hours 07/29/21 07/30/21 07/31/21 23:59 23:59 23:59 Intake Total 3759.5 / 4559.5 850 / 850 1000 / 1000 Output Total 2150 / 2150 Balance 3759.5 / 2659.5 -1300 / -1300 1000 / 1000 Lab / Micro Data Result Diagrams: 07/31/21 05:20 07/31/21 05:20 Labs: Laboratory Results - last 24 hr 07/30/21 08:08: POC Glucose 141 H 07/30/21 11:27: POC Glucose 241 H 07/30/21 16:15: POC Glucose 120 H 07/30/21 20:58: POC Glucose 215 H 07/31/21 01:19: WBC 16.5 H, RBC 3.95 L, Hgb 12.8, Hct 40.8, MCV 103.3 H, MCH 32.4 H, MCHC 31.4 L, RDW Std Deviation 52.1 H, RDW Coeff of Taran 13.7, Plt Count 304, MPV 10.9, Immature Gran % (Auto) 0.500, Neut % (Auto) 89.6 H, Lymph % (Auto) 4.3 L, [place] % (Auto) 3.8, Eos % (Auto) 1.6, Baso % (Auto) 0.2, Absolute Neuts (auto) 14.8 H, Absolute Lymphs (auto) 0.70 L, Nucleated RBC % 0 07/31/21 01:19: Sodium 134 L, Potassium 4.7, Chloride 103, Carbon Dioxide 25.0, Anion Gap 6, BUN 28 H, Creatinine 1.04 H, Estim Creat Clear Calc 38.50, Est GFR (MDRD) Af Amer 66, Est GFR (MDRD) Non-Af 55 L, BUN/Creatinine Ratio 26.9 H, Glucose 144 H, Calcium 9.3 07/31/21 01:19: Lactic Acid 2.0 07/31/21 05:20: WBC 19.2 H, RBC 3.36 L, Hgb 10.9 L, Hct 35.0 L, MCV 104.2 H, MCH 32.4 H, MCHC 31.1 L, RDW Std Deviation 52.8 H, RDW Coeff of Taran 13.8, Plt Count 271, MPV 10.9, Immature Gran % (Auto) 0.600, Neut % (Auto) 83.0 H, Lymph % (Auto) 5.0 L, [place] % (Auto) 9.0, Eos % (Auto) 2.0, Baso % (Auto) 0.4, Absolute Neuts (auto) 15.9 H, Absolute Lymphs (auto) 0.97, Nucleated RBC % 0, Differential Comment SCANNED, Diff Path Review November07/31/21 05:20: Sodium 134 L, Potassium 4.3, Chloride 103, Carbon Dioxide 25.0, Anion Gap 6, BUN 27 H, Creatinine 0.98, Estim Creat Clear Calc 40.85, Est GFR (MDRD) Af Amer 70, Est GFR (MDRD) Non-Af 58 L, BUN/Creatinine Ratio 27.4 H, Glucose 153 H, Calcium 8.6 07/31/21 05:20: Lactic Acid 1.5 Micro: Microbiology 07/20/21 10:16 Swab (Method) Nasal Screen MRSA/MSSA - Final Radiography Diagnostic Testing: Radiology Impression KUB X-Ray 07/30/21 14:55 IMPRESSION: Large amount of fecal material is seen throughout the colon. Electronically Signed: Gonzaol Jordan MD at 15:16 EST , Service support , Chest X-Ray 07/31/21 01:02 IMPRESSION: Mild basilar atelectasis. No other evidence of acute cardiopulmonary process. at 0238 Reported and signed by: Dayday Cerda MD Electronically Signed: Dayday Cerda MD at 2:37 EST Tel , Service support , KUB X-Ray 07/31/21 01:02 IMPRESSION: No acute finding at 0242 Reported and signed by: Dayday Cerda MD Electronically Signed: Dayday Cerda MD at 2:41 EST Tel , Service support , Physical Exam Narrative Vital signs stable, afebrile Dressing is clean, dry, intact Ultra-sling fitting appropriately Sensation intact to axillary, radial, median, and ulnar distribution Motor intact to AIN, PIN, and ulnar nerve Const alert, oriented x3 and no apparent distress Assessment & Plan Assessment/Plan (1) Status post reverse total arthroplasty of left shoulder: PLAN: 1. S/P left reverse total shoulder arthroplasty POD #2 2. Continue Pain Medications: Patient's tramadol and [place] were stopped. Discussed with medicine. Oxycodone 5 mg was placed and will continue with Tylenol. Plan will be at discharge for patient to go back on her [place] per pain management. 3. DVT Prophylaxis: Take 81 mg aspirin twice daily for 4 weeks postoperatively for DVT prophylaxis 4. PT/OT: Continue with UltraSling at all times except to come out for range of motion exercises of the elbow and pendulum exercise 3 times daily. No range of motion of the postoperative shoulder until outpatient physical therapy begins. Outpatient physical therapy will begin 2 weeks postoperatively after follow-up with [facility] with x-rays and incision check. 5. H & H: 10.9/35.0, asymptomatic. Postoperative anemia secondary to acute blood loss from surgery without any intra operative complications. Patient has been given bolus. 6. Reactive leukocytosis: Patient's white blood cell count increased to 19.2 7. Continue postoperative medical management per medicine: I would like medicine to evaluate the patient this morning. She had difficulties overnight with multitude of testing ordered. They are currently doing straight cath for urinary cultures. We are waiting on blood cultures. Patient has been on telemetry and currently in normal sinus rhythm. She is also on nasal oxygen. I would like and appreciate input on medical care at this time. 8. Encouraged Incentive Spirometry 9. Disposition: I would like input from medicine this morning once they have been able to evaluate the patient and go through her chart and testing. I am uncertain of why she is having these symptoms the past 2 days. Her shoulder appears to be doing well. She does have pain in the shoulder which is controlled on medications. The plan is for patient to go to the transitional care unit once pre-CERT has been obtained. However I would not place any discharge at this time until we get clearance and input from medicine. Case was discussed with Dr. Tyson Lomax. I have reviewed the [place] Automated Rx Reporting System (OARRS) report for this patient for refill pattern and other prescriber involvement as part of the appropriate surveillance for the provision of acute and chronic controlled medications. The report was requested and reviewed on the date of this entry and was considered in the prescribing process.
[2021-07-31] MEDS: Albuterol 2.5 MG/3 ML VIAL.NEB. INHALATION (07:31)
[2021-07-31] MEDS: Budesonide Respules 0.5 MG/2 ML AMPUL.NEB. INHALATION ×2 (07:31→19:45)
[2021-07-31] MEDS: Ondansetron 4 MG/2 ML Vial IV (08:13)
[2021-07-31 08:32] LABS: Bacteria 0 SEEN /hpf (None Seen); Mucous, Urine 0 SEEN /hpf (<or=2+); Red Blood Cells-Urine 0 SEEN /hpf (0-5); Squamous Epithelial Cells - UA 0 SEEN /hpf (5-10); White Blood Cells 0 SEEN /hpf (0-5)
[2021-07-31 08:34] LABS: Color, Urine Yellow (Yellow); Glucose, Dipstick Normal (Normal); Ketone-Dipstick Negative (Negative); Leukocyte Esterase-Dipstick Negative /ul (Negative); Nitrite-Dipstick Negative (Negative); Occult Blood-Urine Negative /ul (Negative); Protein-Dipstick Negative (Negative); Specific Gravity, Urine 1.015 (1.002-1.030); Urine Bilirubin Dipstick Negative (Negative); Urine Clarity Clear (Clear); Urine Urobilinogen Normal (Normal)
--- NOTE | 2021-07-31 09:06 | PCS.PANDOC ---
PANDEMIC DOCUMENTATION INITIATED: Date: 02/23/2021 Time: 190
[2021-07-31] MEDS: 0.9% Normal Saline 1,000 ML 125 ML IV ×2 (09:40→17:27)
--- NOTE | 2021-07-31 11:05 | CASEMGMT ---
Social Work SW spoke with physician and pt is not medically ready for discharge today. VENICE spoke with Rhianna in TCU. Precert has been obtained. Pt can be admitted to TCU when medically ready. Pt and dgt updated. Green sheet on chart for weekend discharge. Plan: TCU, when medically ready [place]
--- NOTE | 2021-07-31 11:21 | PN.HOSP_ITS ---
Documented by User: Andrew DOW 07/31/21 11:33 Subjective Subjective Patient is a 76-year-old female lying in bed, alert and orient x3. Patient reports feeling overall weak from her episode of iatrogenic diarrhea last evening. Reports feeling ongoing suprapubic l pain. Objective Data Objective Data Vital Signs: Vital Signs Temp Pulse Resp BP Pulse Ox 98.3 F 80 18 155/77 H 99 07/31/21 10:00 07/31/21 10:59 07/31/21 10:19 07/31/21 10:00 07/31/21 10:19 Oxygen Flow Rate (L/min) 2 Oxygen Delivery Method Nasal Cannula Weight: 184 lb 8.43 oz Body Mass Index (BMI) 31.6 Intake & Output: Intake and Output for Last 24 Hours 07/29/21 07/30/21 07/31/21 23:59 23:59 23:59 Intake Total 3759.5 / 4559.5 850 / 850 1120 / 1120 Output Total 2150 / 2150 Balance 3759.5 / 2659.5 -1300 / -1300 1120 / 1120 Lab / Micro Data Result Diagrams: 07/31/21 05:20 07/31/21 05:20 Labs: Laboratory Results - last 24 hr 07/30/21 11:27: POC Glucose 241 H 07/30/21 16:15: POC Glucose 120 H 07/30/21 20:58: POC Glucose 215 H 07/31/21 01:19: WBC 16.5 H, RBC 3.95 L, Hgb 12.8, Hct 40.8, MCV 103.3 H, MCH 32.4 H, MCHC 31.4 L, RDW Std Deviation 52.1 H, RDW Coeff of Taran 13.7, Plt Count 304, MPV 10.9, Immature Gran % (Auto) 0.500, Neut % (Auto) 89.6 H, Lymph % (Auto) 4.3 L, [place] % (Auto) 3.8, Eos % (Auto) 1.6, Baso % (Auto) 0.2, Absolute Neuts (auto) 14.8 H, Absolute Lymphs (auto) 0.70 L, Nucleated RBC % 0 07/31/21 01:19: Sodium 134 L, Potassium 4.7, Chloride 103, Carbon Dioxide 25.0, Anion Gap 6, BUN 28 H, Creatinine 1.04 H, Estim Creat Clear Calc 38.50, Est GFR (MDRD) Af Amer 66, Est GFR (MDRD) Non-Af 55 L, BUN/Creatinine Ratio 26.9 H, Glucose 144 H, Calcium 9.3 07/31/21 01:19: Lactic Acid 2.0 07/31/21 02:00: Urine Color Yellow, Urine Clarity Clear, Urine pH 6.0, Ur Specific [place] 1.015, Urine Protein Negative, Urine Glucose (UA) Normal, Urine Ketones Negative, Urine Occult Blood Negative, Urine Nitrite Negative, Urine Bilirubin Negative, Urine Urobilinogen Normal, Ur Leukocyte Esterase Negative, Urine RBC 0 SEEN, Urine WBC 0 SEEN, Ur Squamous Epith Cells 0 SEEN, Urine Bacteria 0 SEEN, Urine Mucus 0 SEEN 07/31/21 05:20: WBC 19.2 H, RBC 3.36 L, Hgb 10.9 L, Hct 35.0 L, MCV 104.2 H, MCH 32.4 H, MCHC 31.1 L, RDW Std Deviation 52.8 H, RDW Coeff of Taran 13.8, Plt Count 271, MPV 10.9, Immature Gran % (Auto) 0.600, Neut % (Auto) 83.0 H, Lymph % (Auto) 5.0 L, [place] % (Auto) 9.0, Eos % (Auto) 2.0, Baso % (Auto) 0.4, Absolute Neuts (auto) 15.9 H, Absolute Lymphs (auto) 0.97, Nucleated RBC % 0, Differential Comment SCANNED, Diff Path Review November07/31/21 05:20: Sodium 134 L, Potassium 4.3, Chloride 103, Carbon Dioxide 25.0, Anion Gap 6, BUN 27 H, Creatinine 0.98, Estim Creat Clear Calc 40.85, Est GFR (MDRD) Af Amer 70, Est GFR (MDRD) Non-Af 58 L, BUN/Creatinine Ratio 27.4 H, Glucose 153 H, Calcium 8.6 07/31/21 05:20: Lactic Acid 1.5 07/31/21 07:15: COVID-19 (PRIYANKA) Not Detected Micro: Microbiology 07/20/21 10:16 Swab (Method) Nasal Screen MRSA/MSSA - Final Radiography Diagnostic Testing: Radiology Impression KUB X-Ray 07/30/21 14:55 IMPRESSION: Large amount of fecal material is seen throughout the colon. Electronically Signed: Gonzalo Jordan MD at 15:16 EST , Service support , Chest X-Ray 07/31/21 01:02 IMPRESSION: Mild basilar atelectasis. No other evidence of acute cardiopulmonary process. at 0238 Reported and signed by: Dayday Cerda MD Electronically Signed: Dayday Cerda MD at 2:37 EST Tel , Service support , KUB X-Ray 07/31/21 01:02 IMPRESSION: No acute finding at 0242 Reported and signed by: Dayday Cerda MD Electronically Signed: Dayday Cerda MD at 2:41 EST Tel , Service support , Physical Exam Const alert and oriented x3 HEENT head/scalp atraumatic and moist oral mucous membranes Head and Scalp: normocephalic Eyes PERRL, EOMs intact bilaterally and conjunctivae normal Neck no lymphadenopathy, supple and no JVD Resp normal respiratory effort, no retractions and no use of accessory muscles Cardio regular rate, regular rhythm, no murmurs and no JVD GI normal to inspection, nondistended, normoactive bowel sounds and soft to palpation Palpation: tender suprapubic Extremity normal to inspection, full ROM and no clubbing, cyanosis or edema Skin no rashes or lesions noted, no wounds and skin turgor normal Neuro CN's II-XII intact bilaterally Psych affect normal Assessment & Plan Assessment/Plan (1) GERD (gastroesophageal reflux disease): (2) Asthma: (3) Hypertension: (4) Diabetes mellitus: (5) Hyperlipidemia: QUALIFIERS: Hyperlipidemia type: mixed hyperlipidemia Qualified Code(s): E78.2 - Mixed hyperlipidemia PLAN: Patient is a 76-year-old female who presents to the [facility] on consult from orthopedics who admitted patient for reverse total arthroplasty of left shoulder. 1) Orthostatic hypotension Patient presents with positive orthostatic vitals. Likely secondary to iatrogenic diarrhea which was a result of a tapwater enema and senna administration which was administered due to positive KUB x-ray which showed large amounts of fecal matter. We will continue fluids, place patient on n.p.o. diet and observe overnight. 2) constipation Resolved. KUB x-ray obtained on 07/30/2021 demonstrated large amounts of fecal matter, enema and senna ordered as above. Patient now has nonspecific abdominal pain, we will continue to monitor overnight. 3) nonspecific jerking During evaluation on 07/30/2021 patient was observed having rhythmic jerking. Patient reports that this is normal for her after surgery and has been told this is related to her anesthesia in the past. Patient does not have any seizure history. No postictal period observed. Patient has not had any additional episodes since initial one. 4) HTN Stable, continue home Lasix, metoprolol and olmesartan. 5) GERD Continue PPI. 6) DM2 Continue metformin, continue Accu-Cheks sliding scale insulin. 7) asthma Not in acute exacerbation. Continue scheduled budesonide and albuterol as needed. 8) chronic anemia Currently 11.2, stable from admission, continue iron supplementation. 9) left shoulder osteoarthritis Status post left reverse total shoulder arthroplasty, POD 2. Management per o rthopedics. DVT prophylaxis - SCDs Patient seen by Andrew oRllins PA-C, under the supervision of Dr. Bro. Time spent on patient care: 8 minutes. Documented by User: Dr. Jennifer Bro MD 07/31/21 12:25 Objective Data Lab / Micro Data Result Diagrams: 07/31/21 05:20 07/31/21 05:20 Charges/Coding Addendum Addendum: This patient was seen in conjunction with VICTOR M Cornejo. I have independently interviewed and examined the patient and reviewed pertinent historical, laboratory, and other data. Please refer to VICTOR M Cornejo's note for his patient's presentation, findings, and recommendations. I have reviewed and his note and concur with his documentation Patient was seen and examined. She had a large bowel movement during the night. She subsequently complains of dizziness, was hypotensive, looks like she was going to pass out. She received IV fluid boluses. Vitals have since been stable with patient on strict bedrest Orthostatic vitals positive this morning. Patient complains of lower abdominal pain. Temp Pulse Resp BP Pulse Ox 98.3 F 80 18 155/77 H 99 Physical Exam: Gen: Appears uncomfortable, pale, not jaundiced CVS:HS I +II, regular, no murmurs RESP: Diminished at lung bases GI: BS present and normal, soft, nontender, no palpable organs EXT:No edema, left shoulder in a sling KUB: Large amount of stool, repeat is unremarkable ASSESSMENT: 1. Orthostatic hypotension 2. POD #2 status post reverse total arthroplasty of the left shoulder 3. Hypertension 4. GERD 5. Type II DM 6. Asthma 7. Constipation Plan: Continue IV fluid Repeat orthostatics in a.m. Hold blood pressure medication Treat nausea as needed NPO, then transitional diet if able Hold metformin, ISS with accuchecks IV PPI BID Time spent coordinating patient's care, discussing with nursing, discussing with subspecialists: 35 minutes Visit Charges Inpatient E&M: 17469 Subs Hosp L2
[2021-07-31 11:41] LABS: Bedside Glucose 144 mg/dL (70-110)
[2021-07-31] MEDS: Acetaminophen 500 MG Tablet 1000 MG PO ×2 (14:15→20:44)
[2021-07-31 14:46] LABS: Bedside Glucose 144 mg/dL (70-110)
[2021-07-31] MEDS: Insulin Lispro 100 UNIT/ML INSULN.PEN SC ×2 (17:02→20:39)
[2021-07-31 17:11] LABS: Bedside Glucose 153 mg/dL (70-110)
[2021-07-31] MEDS: Aspirin 81 MG TAB.CHEW PO (17:24)
[2021-07-31] MEDS: Ferrous Sulfate 325 MG Tablet PO (17:24)
[2021-07-31] MEDS: Ensure Surgery 237 ML LIQUID PO (17:27)
[2021-07-31 20:41] LABS: Bedside Glucose 223 mg/dL (70-110)
[2021-07-31] MEDS: Mirtazapine 15 MG Tablet PO (20:44)
--- NOTE | 2021-07-31 21:12 | NURSING ---
pt resting in bed with eyes closed. pt phone rang, pt sat up and began reaching for phone and asking staff for assistance to locate phone. Phone stopped ringing before staff for give phone to pt. Pt laid back in bed closed eyes and would not respond to this nurse questions. call light within reach will continue to monitor.
[2021-08-01] VITALS (16 sets, daily range): BP systolic 115–215; BP diastolic 59–95; PULSE 70–100; RESP 14–18; TEMP 36–37.2; O2SAT 95–100
[2021-08-01] MEDS: 0.9% Normal Saline 1,000 ML 125 ML IV (01:57)
[2021-08-01] MEDS: Acetaminophen 500 MG Tablet 1000 MG PO ×3 (05:36→21:48)
[2021-08-01] MEDS: Levothyroxine 125 MCG Tablet PO (05:37)
[2021-08-01 07:01] LABS: Absolute Lymphocyte Count 1.07 X10^3/uL (0.83-4.51); Absolute Neutrophil Count 13.2 X10^3/uL (2.0-7.7); Basophil# 0.06 X10^3/uL; Basophil% 0.4 % (0-1); Eosinophils% 1.9 % (0-5); Hematocrit 33.1 % (37-47); Hemoglobin 10.6 g/dL (12.0-15.0); Lymphocyte # 1.07 X10^3/ul (0.83-4.51); Lymphocyte % 6.7 % (19-41); Mean Corpuscular Hgb 33.1 pg (27.0-32.0); Mean Corpuscular Volume 103.4 fL (81-99); Mean Platelet Vol. 11.3 fl (6.2-12.0); Monocyte# 1.18 X10^3/uL; Monocyte% 7.4 % (0-10); NRBC Flagged by Analyzer 0 % (0-5); Neutrophil # 13.22 X10^3/uL (2.7-7.7); Neutrophil % 83.1 % (47-70); Platelet Count 260 K/mm3 (150-450); RBC Distribution Width CV 13.8 % (11.6-14.6); RBC Distribution Width SD 52.6 fl (35.1-43.9); White Blood Count 15.9 K/mm3 (4.4-11.0)
[2021-08-01 07:23] LABS: ALB/GLOB Ratio 0.6 RATIO (0.9-2.4); AST(SGOT) 13 U/L (15-37); Alanine Aminotransfer ALT/SGPT 18 U/L (13-56); Albumin, Serum 2.2 g/dL (3.2-5.0); Alkaline Phosphatase 77 U/L (45-117); Anion Gap 4 (5-15); BUN 12 mg/dL (7-18); BUN/Creat Ratio 19.7 RATIO (10-20); Calcium,Total 8.4 mg/dL (8.5-10.1); Chloride 108 mmol/L (98-107); Creatinine, Serum 0.61 mg/dL (0.55-1.02); EST Glomerular Filtration Rate 101 mL/min (>60); Est Glom Filt Rate - Afr Amer 122 mL/min (>60); Estimated Creatinine Clearance 40.04 ml/min; Globulin 3.7 g/dL (2.2-4.2); Glucose 150 mg/dL (74-106); Potassium 4.4 mmol/L (3.5-5.1); Protein, Total 5.9 g/dL (6.4-8.2); Sodium Level 136 mmol/L (136-145)
[2021-08-01] MEDS: Budesonide Respules 0.5 MG/2 ML AMPUL.NEB. INHALATION ×2 (07:26→20:05)
[2021-08-01 08:10] LABS: Hemoglobin A1c 6.6 % (3.8-5.6)
[2021-08-01] MEDS: Aspirin 81 MG TAB.CHEW PO ×2 (08:50→17:25)
[2021-08-01] MEDS: Folic Acid 1 MG Tablet PO (08:51)
[2021-08-01] MEDS: metFORMIN HCl 500 MG Tablet PO (08:56)
[2021-08-01] MEDS: Ferrous Sulfate 325 MG Tablet PO ×2 (09:38→17:27)
[2021-08-01] MEDS: Ensure Surgery 237 ML LIQUID PO ×2 (09:38→17:24)
[2021-08-01] MEDS: Metoprolol(XL)Succ 50 MG Tablet PO (09:58)
[2021-08-01] MEDS: Loperamide 2 MG Capsule PO (10:57)
[2021-08-01] MEDS: Insulin Lispro 100 UNIT/ML INSULN.PEN SC ×2 (11:08→21:49)
[2021-08-01 11:16] LABS: Bedside Glucose 202 mg/dL (70-110)
[2021-08-01 11:35] LABS: Bedside Glucose 141 mg/dL (70-110)
--- NOTE | 2021-08-01 12:18 | PCM.PN.HOSP ---
Documented by User: Andrew DOW 08/01/21 14:07 Subjective Subjective Patient is a 76-year-old female comfortably resting in bed, alert oriented x3. Patient reports improvement in weakness and dizziness from yesterday, denies any new episodes of jerking. Denies development of any new symptoms overnight. Does not appear in acute distress. Objective Data Objective Data Vital Signs: Vital Signs Temp Pulse Resp BP Pulse Ox 98.4 F 96 18 191/80 H 100 08/01/21 11:12 08/01/21 11:12 08/01/21 11:12 08/01/21 11:12 08/01/21 11:12 Oxygen Flow Rate (L/min) 2 Oxygen Delivery Method Room Air Weight: 184 lb 8.43 oz Body Mass Index (BMI) 31.6 Intake & Output: Intake and Output for Last 24 Hours 07/30/21 07/31/21 08/01/21 23:59 23:59 23:59 Intake Total 850 / 850 2783.75 / 2783.75 1639.17 / 1639.17 Output Total 2150 / 2150 Balance -1300 / -1300 2783.75 / 2783.75 1639.17 / 1639.17 Lab / Micro Data Result Diagrams: 08/01/21 06:35 08/01/21 06:35 Labs: Laboratory Results - last 24 hr 07/31/21 08:10: POC Glucose 144 H 07/31/21 16:59: POC Glucose 153 H 07/31/21 20:31: POC Glucose 223 H 08/01/21 06:35: WBC 15.9 H, RBC 3.20 L, Hgb 10.6 L, Hct 33.1 L, MCV 103.4 H, MCH 33.1 H, MCHC 32.0, RDW Std Deviation 52.6 H, RDW Coeff of Taran 13.8, Plt Count 260, MPV 11.3, Immature Gran % (Auto) 0.500, Neut % (Auto) 83.1 H, Lymph % (Auto) 6.7 L, [place] % (Auto) 7.4, Eos % (Auto) 1.9, Baso % (Auto) 0.4, Absolute Neuts (auto) 13.2 H, Absolute Lymphs (auto) 1.07, Nucleated RBC % 0 08/01/21 06:35: Sodium 136, Potassium 4.4, Chloride 108 H, Carbon Dioxide 24.0, Anion Gap 4 L, BUN 12, Creatinine 0.61, Estim Creat Clear Calc 40.04, Est GFR (MDRD) Af Amer 122, Est GFR (MDRD) Non-Af 101, BUN/Creatinine Ratio 19.7, Glucose 150 H, Calcium 8.4 L, Total Bilirubin 0.70, AST 13 L, ALT 18, Alkaline Phosphatase 77, Total Protein 5.9 L, Albumin 2.2 L, Globulin 3.7, Albumin/Globulin Ratio 0.6 L 08/01/21 06:35: Hemoglobin A1c 6.6 H 08/01/21 07:00: POC Glucose 141 H 08/01/21 11:07: POC Glucose 202 H Micro: Microbiology 07/31/21 02:00 Urine, Catheterized Urine Culture - Preliminary Culture exhibits no growth. 07/20/21 10:16 Swab (Method) Nasal Screen MRSA/MSSA - Final Physical Exam Const alert, oriented x3 and no apparent distress HEENT head/scalp atraumatic and moist oral mucous membranes Head and Scalp: normocephalic Eyes PERRL, EOMs intact bilaterally and conjunctivae normal Neck no lymphadenopathy, supple and no JVD Resp normal respiratory effort, no retractions and no use of accessory muscles Cardio regular rate, regular rhythm and no JVD GI normal to inspection, nondistended, normoactive bowel sounds, soft to palpation and non-tender Extremity normal to inspection, full ROM and no clubbing, cyanosis or edema Skin no rashes or lesions noted, no wounds and skin turgor normal Neuro CN's II-XII intact bilaterally Psych affect normal Assessment & Plan Assessment/Plan (1) GERD (gastroesophageal reflux disease): (2) Asthma: (3) Hypertension: (4) Diabetes mellitus: (5) Hyperlipidemia: QUALIFIERS: Hyperlipidemia type: mixed hyperlipidemia Qualified Code(s): E78.2 - Mixed hyperlipidemia PLAN: Patient is a 76-year-old female who presents to the hospital medicine service on consult from orthopedics who admitted patient for reverse total arthroplasty of left shoulder. 1) Orthostatic hypotension Resolved. Patient presents with positive orthostatic vitals. Likely secondary to iatrogenic diarrhea which was a result of a tapwater enema and senna administration which was administered due to positive KUB x-ray which showed large amounts of fecal matter. Treated with fluids and patient reports no dizziness or lightheadedness overnight. 2) constipation Resolved. KUB x-ray obtained on 07/30/2021 demonstrated large amounts of fecal matter, enema and senna ordered as above. 3) nonspecific jerking During evaluation on 07/30/2021 patient was observed having rhythmic jerking. Patient reports that this is normal for her after surgery and has been told this is related to her anesthesia in the past. Patient does not have any seizure history. No postictal period observed. Patient has not had any additional episodes since initial one. 4) HTN Elevated this morning as blood pressure meds had been withheld overnight and she had been given fluids as well. Blood pressure did respond after giving 1 dose of metoprolol. Do suspect that this will improve once she has been discharged. Continue home BP regimen. 5) GERD Continue PPI. 6) DM2 Continue metformin, continue Accu-Cheks sliding scale insulin. 7) asthma Not in acute exacerbation. Continue scheduled budesonide and albuterol as needed. 8) chronic anemia Currently 11.2, stable from admission, continue iron supplementation. 9) left shoulder osteoarthritis Status post left reverse total shoulder arthroplasty, POD 2. Management per orthopedics. DVT prophylaxis - SCDs Patient seen by Andrew Rollins PA-C, under the supervision of Dr. Bro. Time spent on patient care: 7 minutes. Documented by User: Dr. Jennifer Bro MD 08/01/21 15:25 Objective Data Lab / Micro Data Result Diagrams: 08/01/21 06:35 08/01/21 06:35 Charges/Coding Addendum Addendum: This patient was seen in conjunction with VICTOR M Cornejo. I have independently interviewed and examined the patient and reviewed pertinent historical, laboratory, and other data. Please refer to VICTORM Cornejo's note for his patient's presentation, findings, and recommendations. I have reviewed and his note and concur with his documentation Patient was seen and examined. Complains of multiple bowel movements throughout the night. Imodium to be given. Blood pressure is also elevated. Temp Pulse Resp BP Pulse Ox 98.4 F 96 18 191/80 H 100 Physical Exam: Gen: Appears uncomfortable, pale, not jaundiced CVS:HS I +II, regular, no murmurs RESP: Diminished at lung bases GI: BS present and normal, soft, nontender, no palpable organs EXT:No edema, left shoulder in a sling KUB: Large amount of stool, repeat is unremarkable ASSESSMENT: 1. Orthostatic hypotension 2. POD #2 status post reverse total arthroplasty of the left shoulder 3. Hypertension 4. GERD 5. Type II DM 6. Asthma 7. Constipation Plan: Continue IV fluid Resume blood pressure medication Imodium as needed Hold metformin, ISS with accuchecks IV PPI BID Time spent coordinating patient's care, discussing with nursing, discussing with subspecialists: 18 minutes Visit Charges Inpatient E&M: 36241 Subs Hosp L2
[2021-08-01] MEDS: Ondansetron 4 MG/2 ML Vial IV (12:54)
[2021-08-01] MEDS: 0.9% Saline Lock 10 ML Syringe IV ×4 (12:54→22:12)
--- NOTE | 2021-08-01 13:04 | PCM.PN.ORT ---
Subjective Subjective 76-year-old female who has had postanesthesia complications since her left reverse total shoulder replacement 3 days ago continues to improve medically. Her orthostatic hypotension has resolved at this point she is hypertensive. We are reintroducing her blood pressure medications and medicine feels confident this will help bring her blood pressure back down. They have cleared her for discharge to transitional care unit today. Overall she is continuing to do well. She has some continued nausea. She has not had any shaking episodes. Her dizziness is improved today. She is taking minimal pain medications. Denies any chest pain or shortness of breath. Objective Data Objective Data Vital Signs: Vital Signs Temp Pulse Resp BP Pulse Ox 98.4 F 94 18 191/80 H 100 08/01/21 11:12 08/01/21 12:00 08/01/21 11:12 08/01/21 11:12 08/01/21 11:12 Oxygen Flow Rate (L/min) 2 Oxygen Delivery Method Room Air Weight: 184 lb 8.43 oz Body Mass Index (BMI) 31.6 Intake & Output: Intake and Output for Last 24 Hours 07/30/21 07/31/21 08/01/21 23:59 23:59 23:59 Intake Total 850 / 850 2783.75 / 2783.75 1639.17 / 1639.17 Output Total 2150 / 2150 Balance -1300 / -1300 2783.75 / 2783.75 1639.17 / 1639.17 Lab / Micro Data Result Diagrams: 08/01/21 06:35 08/01/21 06:35 Labs: Laboratory Results - last 24 hr 07/31/21 08:10: POC Glucose 144 H 07/31/21 16:59: POC Glucose 153 H 07/31/21 20:31: POC Glucose 223 H 08/01/21 06:35: WBC 15.9 H, RBC 3.20 L, Hgb 10.6 L, Hct 33.1 L, MCV 103.4 H, MCH 33.1 H, MCHC 32.0, RDW Std Deviation 52.6 H, RDW Coeff of Taran 13.8, Plt Count 260, MPV 11.3, Immature Gran % (Auto) 0.500, Neut % (Auto) 83.1 H, Lymph % (Auto) 6.7 L, [place] % (Auto) 7.4, Eos % (Auto) 1.9, Baso % (Auto) 0.4, Absolute Neuts (auto) 13.2 H, Absolute Lymphs (auto) 1.07, Nucleated RBC % 0 08/01/21 06:35: Sodium 136, Potassium 4.4, Chloride 108 H, Carbon Dioxide 24.0, Anion Gap 4 L, BUN 12, Creatinine 0.61, Estim Creat Clear Calc 40.04, Est GFR (MDRD) Af Amer 122, Est GFR (MDRD) Non-Af 101, BUN/Creatinine Ratio 19.7, Glucose 150 H, Calcium 8.4 L, Total Bilirubin 0.70, AST 13 L, ALT 18, Alkaline Phosphatase 77, Total Protein 5.9 L, Albumin 2.2 L, Globulin 3.7, Albumin/Globulin Ratio 0.6 L 08/01/21 06:35: Hemoglobin A1c 6.6 H 08/01/21 07:00: POC Glucose 141 H 08/01/21 11:07: POC Glucose 202 H Micro: Microbiology 07/31/21 02:00 Urine, Catheterized Urine Culture - Preliminary Culture exhibits no growth. 07/20/21 10:16 Swab (Method) Nasal Screen MRSA/MSSA - Final Physical Exam Const alert, oriented x3 and no apparent distress Extremity Extremity Narrative: Left upper extremity: Incision is clean dry and intact. Mild surrounding ecchymosis. Positive thumbs up, okay sign and cross his fingers. Sensations intact light touch axillary/R/M/U. 2+ radial pulse. Arm is in sling. Neuro oriented x3 Assessment & Plan Assessment/Plan (1) Status post reverse total arthroplasty of left shoulder: PLAN: 1. S/P left reverse total shoulder arthroplasty POD #3 2. Continue Pain Medications: Patient's tramadol and [employer] were stopped. Discussed with medicine. Oxycodone 5 mg was placed and will continue with Tylenol. At this time patient is requiring minimal narcotics. We will discharge her with oxycodone to go to the transitional care unit. Upon discharge from transitional care unit she should be transferred back to her [employer] if well tolerated. 3. DVT Prophylaxis: Take 81 mg aspirin twice daily for 4 weeks postoperatively for DVT prophylaxis 4. PT/OT: Continue with UltraSling at all times except to come out for range of motion exercises of the elbow and pendulum exercise 3 times daily. No range of motion of the postoperative shoulder until outpatient physical therapy begins. Outpatient physical therapy will begin 2 weeks postoperatively after follow-up with [facility] with x-rays and incision check. 5. H & H: 10.6/33.1, asymptomatic. Postoperative anemia secondary to acute blood loss from surgery without any intra operative complications. Hemoglobin has remained stable postoperatively 6. Reactive leukocytosis: Patient's white blood cell count increased to 16.9 today continues to trend down. 7. Continue postoperative medical management per medicine: Patient does have some mild nausea which will be managed medically at the TCU. Her blood pressure is elevated at this point however, medicine feels she is appropriate to be discharged to transitional care unit where she will be under continued medical care as we reintroduce her blood pressure medications. Her blood pressure is responded well to reintroduction of medications this morning. 8. Encouraged Incentive Spirometry 9. Constipation: Patient did report yesterday that she had not had a bowel movement for multiple days prior to her surgery. Postoperatively she had significant constipation. She was given stool softeners and enema and had large release of stool. This is resolved. Overall she is doing well. 10. Jerking/seizure type movements: Appears to be resolved likely postanesthetic response. 11. Disposition: Patient shoulder is doing well. She is done well orthopedically since surgery. Case was discussed with medicine. They feel confident that her blood pressure will continue to resolve as she is reviewed to reduce to her blood pressure medications. She has been cleared for discharge to the transitional care unit. She does have pain in the shoulder which is controlled on medications. Patient's dressing can be removed on postop day five which will be Thursday 08/03. [facility] Office:
--- NOTE | 2021-08-01 13:18 | TREXTCAR_ITS ---
Diet 08/01/21 10:22 Diet: Transitional Is pt able to select menu?: Yes Routine Orders/Code Status Code Status: Full Code Wound(s) LEFT SHOULDER: Wound Type: Surgical Incision Suggestions for Active Care Change Position every (hours): 2 Hours to sit in a chair: 3 Times a day to sit in chair: 3 Therapies Weight Bearing: Non weight bearing (Left upper extremity) Extremity Affected:: Left Upper Physical Therapy: Eval and Treat Occupational Therapy: Eval and Treat Problem/Diagnosis (1) Status post reverse total arthroplasty of left shoulder: Status: Acute Comment: Okay to remove dressing on postoperative day 5. If incision is dry patient can continue to shower. Okay to leave open to air if incision is dry. If incision is not dry please replace with silver Mepilex dressing. Allergies/Procedures Done in Hospital Allergies clindamycin Allergy (Mild, Verified 07/29/21 09:11) rash codeine phosphate [From Tylenol-Codeine #3] Adverse Reaction (Severe, Verified 07/29/21 09:11) Nausea Procedures: - (Left reverse total shoulder replacement) Type of Care/Length of Stay Estimated LOS: Convalescent Care Less Than 30 days Type of Care Needed: Skilled Rehab Potential: Fair Prognosis: Fair Additional Orders/Day of Discharge Day of Discharge: 08/01/21 Follow Up Care Please follow up with your Primary Care Physician in: 1 week from discharge from TCU Please Follow Up With: Tanner French PA-C When: August 12, 2021 at 1330. Already scheduled Discharge Plan Admission Admit Date/Time: 07/31/21 09:53 Primary Reason for Your Visit: SATINDER Attending Provider: Tyson Lomax Primary Care Provider: Oscar Adhikari Consulting Providers: Amber Matias ; Jennifer Bro ; Aashish Calle ; Saeid Marroquin ; Lonny Clarke Discharge Orders/Prescriptions Prescriptions: New acetaminophen 500 mg Tablet 1,000 mg PO Q8 Qty: 0 RF: 0 aspirin 81 mg Tablet,Chewable 81 mg PO 0800,1700 Qty: 0 RF: 0 oxycodone 5 mg Tablet 5 mg PO Q6H PRN PRN (Reason: Pain Score 6-10) 7 Days Qty: 60 RF: 0 ondansetron HCl (PF) 4 mg/2 mL Solution 4 mg IV Q6H PRN PRN (Reason: Nausea) Qty: 0 RF: 0 Ensure Surgery 0.08-1.4 gram-kcal/mL Liquid 237 ml PO TIDCM Qty: 0 RF: 0 Continued levothyroxine 125 mcg tablet 125 mcg PO DAILY RF: 0 metoprolol succinate 50 MG tablet extended release 24 hr 50 mg PO DAILY RF: 0 albuterol sulfate 1 PUFF inhaler 1 - 2 puff INHALATION Q6H PRN PRN (Reason: Sob &/Or Wheezing) RF: 0 metformin 500 mg Tablet Extended Release 24 Hr 500 mg PO DAILY RF: 0 cetirizine 10 mg tablet 10 mg PO DAILY PRN (Reason: Allergy Symptoms) RF: 0 pantoprazole 40 mg tablet,delayed release (DR/EC) 40 mg PO DAILY RF: 0 mirtazapine 15 mg tablet 15 mg PO QHS RF: 0 olmesartan 20 mg tablet 20 mg PO DAILY RF: 0 potassium chloride [Klor-Con M20] 20 mEq tablet,ER particles/crystals 20 meq PO DAILY RF: 0 furosemide 80 mg tablet 40 mg PO DAILY RF: 0 Breo Ellipta 100-25 mcg/dose Blister With Device 1 inh INHALATION DAILY RF: 0 ferrous sulfate 325 mg (65 mg iron) Tablet 325 mg PO BID RF: 0 folic acid 1 mg Tablet 1 mg PO DAILY RF: 0 Discontinued acetaminophen 500 mg Tablet 1,000 mg PO Q6H PRN PRN (Reason: Pain Score 1-3) Qty: 0 RF: 0 hydrocodone-acetaminophen 7.5-325 mg Tablet 1 tab PO BID RF: 0 Referrals / Follow Up: Oscar Adhikari MD [Primary Care Provider] - Disposition Disposition (needs filled in before D/C Order can be placed): [facility]
--- NOTE | 2021-08-01 15:45 | CM.ED ---
VENICE Note Referral Source: Optical Laboratory Technician Referral Reason: Patient is calling out regarding financial POA Jennifer from [employer] advised that patient is calling out as her daughter is her POA and her daughter told her she withdrew money from patient's account. VENICE met with patient. She said that her daughter called and told her she had withdrawn money from the account. Patient said that her daughter is financial POA and she has no one else to be financial POA. SW encouraged patient to write down list of people she knows and that may trigger her about a person who could be Financial POA. Patient said that her daughter is also not truthful. SW provided patient with the number for [employer]. However, it was after 12:00 and they close at noon on Tuesday.Patient requested medication to calm down. SW was advised that patients daughter came to visit. Jennifer had called and asked patient if she wanted to visit and patient said yes. VENICE met with patient after her daughter left. Patient said that she told her daughter not to withdraw money from her account anymore. SW asked what patient had said and patient said not too much. Patient said that on Tuesday she will call the bank and set it up that her daughter can't withdraw money unless patient is contacted. She also said that she will set it up so she can check her balance by calling on the phone. VENICE advised patient did not go to TCU as her blood pressure was high. Maylin CANCHOLA
[2021-08-01 16:11] LABS: Bedside Glucose 144 mg/dL (70-110)
[2021-08-01] MEDS: Losartan Potassium 50 MG Tablet PO (16:38)
[2021-08-01] MEDS: proCHLORPERazine 10 MG/2 ML Vial 5 MG IV (18:13)
[2021-08-01] MEDS: Albuterol 2.5 MG/3 ML VIAL.NEB. INHALATION (20:05)
[2021-08-01 20:11] LABS: Bedside Glucose 210 mg/dL (70-110)
[2021-08-01] MEDS: Mirtazapine 15 MG Tablet PO (21:48)
[2021-08-02] VITALS (9 sets, daily range): BP systolic 146–173; BP diastolic 55–73; PULSE 74–88; RESP 14–18; TEMP 35.9–37; O2SAT 96–99
[2021-08-02 05:03] LABS: Absolute Lymphocyte Count 1.31 X10^3/uL (0.83-4.51); Absolute Neutrophil Count 11.6 X10^3/uL (2.0-7.7); Basophil# 0.04 X10^3/uL; Basophil% 0.3 % (0-1); Eosinophil# 0.31 X10^3/uL; Eosinophils% 2.2 % (0-5); Hematocrit 30.4 % (37-47); Hemoglobin 9.9 g/dL (12.0-15.0); Lymphocyte # 1.31 X10^3/ul (0.83-4.51); Lymphocyte % 9.2 % (19-41); Mean Corp Hgb Conc 32.6 g/dL (32-36); Mean Corpuscular Hgb 32.8 pg (27.0-32.0); Mean Corpuscular Volume 100.7 fL (81-99); NRBC Flagged by Analyzer 0 % (0-5); Neutrophil # 11.56 X10^3/uL (2.7-7.7); Neutrophil % 80.8 % (47-70); Platelet Count 257 K/mm3 (150-450); RBC Distribution Width CV 13.9 % (11.6-14.6); RBC Distribution Width SD 51.8 fl (35.1-43.9); Red Blood Count 3.02 M/mm3 (4.2-5.4); White Blood Count 14.3 K/mm3 (4.4-11.0)
[2021-08-02] MEDS: Acetaminophen 500 MG Tablet 1000 MG PO (05:03)
[2021-08-02] MEDS: Levothyroxine 125 MCG Tablet PO (05:04)
[2021-08-02 05:10] LABS: Bedside Glucose 136 mg/dL (70-110)
[2021-08-02 05:29] LABS: ALB/GLOB Ratio 0.5 RATIO (0.9-2.4); AST(SGOT) 12 U/L (15-37); Alanine Aminotransfer ALT/SGPT 23 U/L (13-56); Alkaline Phosphatase 80 U/L (45-117); Anion Gap 6 (5-15); BUN 12 mg/dL (7-18); BUN/Creat Ratio 19.4 RATIO (10-20); Calcium,Total 8.3 mg/dL (8.5-10.1); Chloride 108 mmol/L (98-107); Creatinine, Serum 0.62 mg/dL (0.55-1.02); EST Glomerular Filtration Rate 99 mL/min (>60); Est Glom Filt Rate - Afr Amer 120 mL/min (>60); Estimated Creatinine Clearance 40.04 ml/min; Globulin 3.7 g/dL (2.2-4.2); Glucose 127 mg/dL (74-106); Potassium 4.1 mmol/L (3.5-5.1); Protein, Total 5.7 g/dL (6.4-8.2); Sodium Level 136 mmol/L (136-145)
[2021-08-02] MEDS: Budesonide Respules 0.5 MG/2 ML AMPUL.NEB. INHALATION (07:57)
[2021-08-02] MEDS: Losartan Potassium 50 MG Tablet PO (08:33)
[2021-08-02] MEDS: Ferrous Sulfate 325 MG Tablet PO (08:34)
[2021-08-02] MEDS: Folic Acid 1 MG Tablet PO (08:34)
[2021-08-02] MEDS: metFORMIN HCl 500 MG Tablet PO (08:35)
[2021-08-02] MEDS: Aspirin 81 MG TAB.CHEW PO (08:36)
[2021-08-02] MEDS: Metoprolol(XL)Succ 50 MG Tablet PO (08:39)
[2021-08-02] MEDS: Ensure Surgery 237 ML LIQUID PO (08:39)
--- NOTE | 2021-08-02 10:22 | PN.HOSP_ITS ---
Documented by User: Andrew DOW 08/02/21 10:32 Subjective Subjective Patient is a 76-year-old female comfortably resting in a chair, alert and orient x3. Patient denies any lightheadedness or dizziness, and reports that her nausea, vomiting and diarrhea are much improved from yesterday. Patient denies development of any new symptoms overnight. Does not appear in acute distress. Objective Data Objective Data Vital Signs: Vital Signs Temp Pulse Resp BP Pulse Ox 98.6 F 78 18 173/65 H 96 08/02/21 07:33 08/02/21 08:39 08/02/21 07:58 08/02/21 07:33 08/02/21 07:58 Oxygen Flow Rate (L/min) 97 Oxygen Delivery Method Room Air Weight: 184 lb 8.43 oz Body Mass Index (BMI) 31.6 Intake & Output: Intake and Output for Last 24 Hours 07/31/21 08/01/21 08/02/21 23:59 23:59 23:59 Intake Total 2783.75 / 2783.75 1749.17 / 1749.17 Balance 2783.75 / 2783.75 1749.17 / 1749.17 Lab / Micro Data Result Diagrams: 08/02/21 04:52 08/02/21 04:52 Labs: Laboratory Results - last 24 hr 08/01/21 07:00: POC Glucose 141 H 08/01/21 11:07: POC Glucose 202 H 08/01/21 16:01: POC Glucose 144 H 08/01/21 20:01: POC Glucose 210 H 08/02/21 04:52: WBC 14.3 H, RBC 3.02 L, Hgb 9.9 L, Hct 30.4 L, MCV 100.7 H, MCH 32.8 H, MCHC 32.6, RDW Std Deviation 51.8 H, RDW Coeff of Taran 13.9, Plt Count 257, MPV 11.0, Immature Gran % (Auto) 0.500, Neut % (Auto) 80.8 H, Lymph % (Auto) 9.2 L, Petroleum % (Auto) 7.0, Eos % (Auto) 2.2, Baso % (Auto) 0.3, Absolute Neuts (auto) 11.6 H, Absolute Lymphs (auto) 1.31, Nucleated RBC % 0 08/02/21 04:52: Sodium 136, Potassium 4.1, Chloride 108 H, Carbon Dioxide 22.0, Anion Gap 6, BUN 12, Creatinine 0.62, Estim Creat Clear Calc 40.04, Est GFR (MDRD) Af Amer 120, Est GFR (MDRD) Non-Af 99, BUN/Creatinine Ratio 19.4, Glucose 127 H, Calcium 8.3 L, Total Bilirubin 0.40, AST 12 L, ALT 23, Alkaline Phosphatase 80, Total Protein 5.7 L, Albumin 2.0 L, Globulin 3.7, Albumin/Globulin Ratio 0.5 L 08/02/21 04:57: POC Glucose 136 H Micro: Microbiology 07/31/21 03:00 Blood Culture (Wb) - Anticubital Left Blood Culture - Preliminary No growth in 48 hours. 07/31/21 03:15 Blood Culture (Wb) - Anticubital Left Blood Culture - Preliminary No growth in 48 hours. 07/31/21 02:00 Urine, Catheterized Urine Culture - Final Culture exhibits no growth. 07/20/21 10:16 Swab (Method) Nasal Screen MRSA/MSSA - Final Physical Exam Const alert, oriented x3 and no apparent distress HEENT head/scalp atraumatic and moist oral mucous membranes Head and Scalp: normocephalic Eyes PERRL, EOMs intact bilaterally and conjunctivae normal Neck no lymphadenopathy, supple and no JVD Resp normal respiratory effort, no retractions, no use of accessory muscles and clear to auscultation bilaterally Cardio regular rate, regular rhythm, no murmurs and no JVD GI normal to inspection, nondistended, normoactive bowel sounds, soft to palpation and non-tender Extremity normal to inspection, full ROM and no clubbing, cyanosis or edema Skin no rashes or lesions noted, no wounds and skin turgor normal Neuro CN's II-XII intact bilaterally Psych affect normal Assessment & Plan Assessment/Plan (1) Nausea vomiting and diarrhea: (2) Hyperlipidemia: QUALIFIERS: Hyperlipidemia type: mixed hyperlipidemia Qualified Code(s): E78.2 - Mixed hyperlipidemia (3) Hypertension: QUALIFIERS: Hypertension type: primary hypertension Qualified Code(s): I10 - Essential (primary) hypertension (4) Gastroesophageal reflux disease: QUALIFIERS: Esophagitis presence: without esophagitis Qualified Code(s): K21.9 - Gastro-esophageal reflux disease without esophagitis (5) Diabetes mellitus: QUALIFIERS: Diabetes mellitus complication status: without complication Diabetes mellitus 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 Patient is medically cleared for discharge to TCU, will defer management to orthopedics who is primary. 1) Orthostatic hypotension Resolved. Patient presents with positive orthostatic vitals. Likely secondary to iatrogenic diarrhea which was a result of a tapwater enema and senna administration which was administered due to constipation and large amounts of fecal matter seen on KUB x-ray. Treated with fluids and patient reports no dizziness or lightheadedness overnight. 2) constipation Resolved. KUB x-ray obtained on 07/30/2021 demonstrated large amounts of fecal matter, enema and senna ordered as above. 3) Nausea, vomiting and diarrhea Resolved. Patient had several episodes of N/V/D on 08/01. Unclear etiology, attempted to get stool samples however samples were contaminated and were unable to be obtained. This morning, patient reported significant improvement in her N/V/D and reported that it is controlled on Imodium. Doubt infectious etiology, as patient symptoms and white have improved without any antibiotics, and bart ent's vital signs remain stable/afebrile. 3) nonspecific jerking During evaluation on 07/30/2021 patient was observed having rhythmic jerking. Patient reports that this is normal for her after surgery and has been told this is related to her anesthesia in the past. Patient does not have any seizure history. No postictal period observed. Patient has not had any additional episodes since initial one. 4) HTN Elevated, but improved as home BP regimen is being recontinued. Recommend continuing home BP regimen and follow-up with primary care provider. 5) GERD Continue PPI. 6) DM2 Continue home diabetic regimen. 7) asthma Not in acute exacerbation. Continue scheduled budesonide and albuterol as needed. 8) chronic anemia Currently 9.9, stable from admission, continue iron supplementation. 9) left shoulder osteoarthritis Status post left reverse total shoulder arthroplasty, POD 3. Management per orthopedics. DVT prophylaxis - SCDs Patient seen by Andrew Rollins PA-C, under the supervision of Dr. Bro. Time spent on patient care: 7 minutes. Documented by User: Dr. Jennifer Bro MD 08/02/21 12:49 Objective Data Lab / Micro Data Result Diagrams: 08/02/21 04:52 08/02/21 04:52 Charges/Coding Addendum Addendum: This patient was seen in conjunction with VICTOR M Cornejo. I have independently interviewed and examined the patient and reviewed pertinent histor ical, laboratory, and other data. Please refer to VICTOR M Cornejo's note for his patient's presentation, findings, and recommendations. I have reviewed and his note and concur with his documentation Patient was seen and examined. She has had only one bowel movement overnight. She denied any nausea or abdominal discomfort. BP is improved. Temp Pulse Resp BP Pulse Ox 98.6 F 78 18 173/65 H 96 Physical Exam: Gen: Appears uncomfortable, pale, not jaundiced CVS:HS I +II, regular, no murmurs RESP: Diminished at lung bases GI: BS present and normal, soft, nontender, no palpable organs EXT:No edema, left shoulder in a sling KUB: Large amount of stool, repeat is unremarkable ASSESSMENT: 1. Orthostatic hypotension, resolved 2. POD #4 status post reverse total arthroplasty of the left shoulder 3. Hypertension, improved, will continue to improve 4. GERD 5. Type II DM 6. Asthma 7. Constipation, resolved 8. Diarrhea, post laxatives Plan: Discontinue IV Continue metoprolol po Resume metformin at discharge Visit Charges Inpatient E&M: 07212 Subs Hosp L2
[2021-08-02] MEDS: Insulin Lispro 100 UNIT/ML INSULN.PEN SC (11:14)
--- NOTE | 2021-08-02 11:20 | PN.ORTHO_ITS ---
Subjective Subjective 76-year-old female postop day 4 from left reverse total shoulder replacement. Patient had numerous medical issues postoperatively. She also has limited support at home. Plan is for discharge to transitional care unit upon leaving the hospital. She continues to improve with minimal nausea today. Her diarrhea has responded to Imodium. They have been unable to obtain an uncontaminated stool specimen however her white count continues to trend down without additional antibiotic treatment and her diarrhea shows improvement with more formed stools today per nursing. Medicine service has seen and evaluated her and feel she is medically stable for discharge to transitional care unit where she will have medical management. Patient in general denies any chest pain or shortness of breath. Overall she feels she is doing well. She reports minimal pain. She is taking only Tylenol for her pain over the last 48 hours. Objective Data Objective Data Vital Signs: Vital Signs Temp Pulse Resp BP Pulse Ox 98.6 F 78 18 173/65 H 96 08/02/21 07:33 08/02/21 08:39 08/02/21 07:58 08/02/21 07:33 08/02/21 07:58 Oxygen Flow Rate (L/min) 97 Oxygen Delivery Method Room Air Weight: 184 lb 8.43 oz Body Mass Index (BMI) 31.6 Intake & Output: Intake and Output for Last 24 Hours 07/31/21 08/01/21 08/02/21 23:59 23:59 23:59 Intake Total 2783.75 / 2783.75 1749.17 / 1749.17 Balance 2783.75 / 2783.75 1749.17 / 1749.17 Lab / Micro Data Result Diagrams: 08/02/21 04:52 08/02/21 04:52 Labs: Laboratory Results - last 24 hr 08/01/21 07:00: POC Glucose 141 H 08/01/21 16:01: POC Glucose 144 H 08/01/21 20:01: POC Glucose 210 H 08/02/21 04:52: WBC 14.3 H, RBC 3.02 L, Hgb 9.9 L, Hct 30.4 L, MCV 100.7 H, MCH 32.8 H, MCHC 32.6, RDW Std Deviation 51.8 H, RDW Coeff of Taran 13.9, Plt Count 257, MPV 11.0, Immature Gran % (Auto) 0.500, Neut % (Auto) 80.8 H, Lymph % (Auto) 9.2 L, Wilkin % (Auto) 7.0, Eos % (Auto) 2.2, Baso % (Auto) 0.3, Absolute Neuts (auto) 11.6 H, Absolute Lymphs (auto) 1.31, Nucleated RBC % 0 08/02/21 04:52: Sodium 136, Potassium 4.1, Chloride 108 H, Carbon Dioxide 22.0, Anion Gap 6, BUN 12, Creatinine 0.62, Estim Creat Clear Calc 40.04, Est GFR (MDRD) Af Amer 120, Est GFR (MDRD) Non-Af 99, BUN/Creatinine Ratio 19.4, Glucose 127 H, Calcium 8.3 L, Total Bilirubin 0.40, AST 12 L, ALT 23, Alkaline Phosphata se 80, Total Protein 5.7 L, Albumin 2.0 L, Globulin 3.7, Albumin/Globulin Ratio 0.5 L 08/02/21 04:57: POC Glucose 136 H Micro: Microbiology 07/31/21 03:00 Blood Culture (Wb) - Anticubital Left Blood Culture - Prelimi nary No growth in 48 hours. 07/31/21 03:15 Blood Culture (Wb) - Anticubital Left Blood Culture - Preliminary No growth in 48 hours. 07/31/21 02:00 Urine, Catheterized Urine Culture - Final Culture exhibits no growth. 07/20/21 10:16 Swab (Method) Nasal Screen MRSA/MSSA - Final Physical Exam Const alert, oriented x3 and no apparent distress Extremity Extremity Narrative: Left upper extremity: Dressings clean dry and intact. Motor: Thumbs up, okay sign, cross his fingers. Sensations intact light touch axillary/R/M/U. Digits are warm and pink with brisk cap refill. Moderate ecchymosis postsurgical. Assessment & Plan Assessment/Plan (1) Status post reverse total arthroplasty of left shoulder: PLAN: 1. S/P left reverse total shoulder arthroplasty POD #4 2. Continue Pain Medications: Patient is doing well overall on Tylenol and reports minimal pain today. Oxycodone prescription was written for discharge she does get chronic [place] which which she will need to be transition to upon discharge from the transitional care unit 3. DVT Prophylaxis: Take 81 mg aspirin twice daily for 4 weeks postoperatively for DVT prophylaxis 4. PT/OT: Continue with UltraSling at all times except to come out for range of motion exercises of the elbow and pendulum exercise 3 times daily. No range of motion of the postoperative shoulder until physical therapy begins. Physical therapy protocol begins at 2 weeks postoperative. Patient should get occupational therapy at transitional care unit for ADLs as well as physical therapy for mobility. Patient should be expected to keep her postoperative visit at 2 weeks postop for follow-up with [facility] with x-rays and incision check. 5. H & H: 9.9/30.4, asymptomatic. Postoperative anemia secondary to acute blood loss from surgery without any intra operative complications. Hemoglobin has remained stable postoperatively 6. Reactive leukocytosis: Patient's white blood cell count continues to trend down. 7. Continue postoperative medical management per medicine: Patient's nausea has largely resolved. She has had no further shaking episodes. Her stools are more formed. At this point medicine feels she is stable for discharge from medical standpoint. 8. Encouraged Incentive Spirometry 9. Constipation: Patient did report postsurgically that she had not had a bowel movement for multiple days prior to her surgery. Postoperatively she had significant constipation. She was given stool softeners and enema and had large release of stool. This is resolved. Overall she is doing well. 10. Jerking/seizure type movements: Appears to be resolved likely postanesthetic response. 11. Disposition: Patient shoulder is doing well. She is done well orthopedically since surgery. Case was discussed with medicine. They feel confident that her blood pressure will continue to resolve as she is reviewed to reduce to her blood pressure medications. She has been cleared for discharge to the transitional care unit. She does have pain in the shoulder which is controlled on medications. Patient's dressing can be removed on postop day five which will be Thursday 08/03. [facility] Office:
[2021-08-02 11:26] LABS: Bedside Glucose 172 mg/dL (70-110)
--- NOTE | 2021-08-02 11:26 | PCM.DC.SUM ---
Providers Date of Admission: 07/31/21 Primary Care Physician: Dr. Oscar Adhikari MD Consultations 07/29/21 11:37 Consult: Hospitalist Routine Consulting Provider: [facility] Reason for Consult: post op med management EMERGENT Consult: No MD Notified: Yes Date Notified: 07/29/21 Time Notified: 14:00 Method of Notification: Verbal Reason For Visit: LT TOTAL SHOULDER REVERSE Diagnosis Discharge Diagnosis (1) Status post reverse total arthroplasty of left shoulder: Status: Acute Code(s): Z96.612 - Presence of left artificial shoulder joint (2) Other acute postprocedural pain: Status: Acute Code(s): G89.18 - Other acute postprocedural pain (3) Orthostatic hypotension: Status: Chronic Code(s): I95.1 - Orthostatic hypotension (4) Debility: Status: Acute Code(s): R53.81 - Other malaise (5) Hypertension: Status: Chronic Code(s): I10 - Essential (primary) hypertension (6) Diabetes mellitus: Status: Acute Code(s): E11.9 - Type 2 diabetes mellitus without complications Qualifiers: Diabetes mellitus type: type 2 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 Diabetes mellitus complication status: without complication Qualified Code(s): E11.9 - Type 2 diabetes mellitus without complications (7) Nausea vomiting and diarrhea: Status: Acute Code(s): R11.2 - Nausea with vomiting, unspecified; R19.7 - Diarrhea, unspecified Medications at Discharge Home Medications metoprolol succinate 50 mg PO DAILY 05/19/20 albuterol sulfate 1 - 2 puff INHALATION Q6H PRN PRN 06/02/20 levothyroxine 125 mcg tablet 125 mcg PO DAILY tab 06/09/20 metformin 500 mg PO DAILY 12/27/20 cetirizine 10 mg PO DAILY PRN 05/29/21 furosemide 40 mg PO DAILY 05/29/21 mirtazapine 15 mg PO QHS 05/29/21 olmesartan 20 mg PO DAILY 05/29/21 pantoprazole 40 mg PO DAILY 05/29/21 potassium chloride [Klor-Con M20] 20 meq PO DAILY 05/29/21 Breo Ellipta 1 inh INHALATION DAILY 07/15/21 ferrous sulfate 325 mg PO BID 07/29/21 folic acid 1 mg PO DAILY 07/29/21 acetaminophen 1,000 mg PO Q8 #0 tab 08/01/21 aspirin 81 mg PO 0800,1700 #0 tab 08/01/21 nut.tx.comp. immune systm,reg [Ensure Surgery] 237 ml PO TIDCM #0 ml 08/01/21 ondansetron HCl (PF) 4 mg IV Q6H PRN PRN #0 ml 08/01/21 oxycodone 5 mg PO Q6H PRN PRN 7 Days #60 tab 08/01/21 loperamide 2 mg PO Q6H PRN PRN #0 cap 08/02/21 Hospital Course Operations - (Left reverse total shoulder arthroplasty) Procedures None Summary of Care Provided Hospital Course: Patient was admitted to the hospital postoperatively on July 29, 2020 after a left reverse total shoulder arthroplasty. Medicine was consulted on admission. Postoperatively patient had a episode of shaking which she reports is consistent with other post anesthesia events. This resolved and no further medical management was needed. However she continued to have weakness she also had issues with help at home and was found to need additional care and increased level of care upon discharge. At that point planning was proceeded to discharge patient to a transitional care facility prior to going home. Patient proceeded well orthopedically however medically she had nausea vomiting and diarrhea. These have slowly improved over the last couple of days. Yesterday she was felt to be ready to go home however, after initially appearing well in the morning she had additional diarrhea and continued nausea. She was kept an additional day. She responded well to Imodium. We were unable to obtain an none contaminated stool specimen but patient has clinically responded to supportive care without antibiotics it was felt that this was unlikely to be an infectious etiology per the medicine service. Patient was eventually cleared by medicine for discharge. She has insurance approval for discharge to transitional care unit where she will be discharged today. Physical Exam Const alert and oriented x3 Extremity Extremity Narrative: Left upper extremity: Dressing is clean dry and intact. Neurovascular intact distally. Postoperative ecchymosis. Weight / BMI Weight Weight: 184 lb 8.43 oz Body Mass Index (BMI) 31.6 ABG / Lab / Microbiology Data Result Diagrams: 08/02/21 04:52 08/02/21 04:52 Laboratory: Laboratory Results - last 24 hr 08/01/21 07:00: POC Glucose 141 H 08/01/21 16:01: POC Glucose 144 H 08/01/21 20:01: POC Glucose 210 H 08/02/21 04:52: WBC 14.3 H, RBC 3.02 L, Hgb 9.9 L, Hct 30.4 L, MCV 100.7 H, MCH 32.8 H, MCHC 32.6, RDW Std Deviation 51.8 H, RDW Coeff of Taran 13.9, Plt Count 257, MPV 11.0, Immature Gran % (Auto) 0.500, Neut % (Auto) 80.8 H, Lymph % (Auto) 9.2 L, Sully % (Auto) 7.0, Eos % (Auto) 2.2, Baso % (Auto) 0.3, Absolute Neuts (auto) 11.6 H, Absolute Lymphs (auto) 1.31, Nucleated RBC % 0 08/02/21 04:52: Sodium 136, Potassium 4.1, Chloride 108 H, Carbon Dioxide 22.0, Anion Gap 6, BUN 12, Creatinine 0.62, Estim Creat Clear Calc 40.04, Est GFR (MDRD) Af Amer 120, Est GFR (MDRD) Non-Af 99, BUN/Creatinine Ratio 19.4, Glucose 127 H, Calcium 8.3 L, Total Bilirubin 0.40, AST 12 L, ALT 23, Alkaline Phosphatase 80, Total Protein 5.7 L, Albumin 2.0 L, Globulin 3.7, Albumin/Globulin Ratio 0.5 L 08/02/21 04:57: POC Glucose 136 H 08/02/21 11:11: POC Glucose 172 H Microbiology: Microbiology 07/31/21 03:00 Blood Culture (Wb) - Anticubital Left Blood Culture - Preliminary No growth in 48 hours. 07/31/21 03:15 Blood Culture (Wb) - Anticubital Left Blood Culture - Preliminary No growth in 48 hours. 07/31/21 02:00 Urine, Catheterized Urine Culture - Final Culture exhibits no growth. 07/20/21 10:16 Swab (Method) Nasal Screen MRSA/MSSA - Final D/C Instructions Please Follow Up With: Tanner French PA-C Meaningful Use Info Meaningful Use Diagnoses (Choose all that apply): None applicable Discharge Plan Admission Admit Date/Time: 07/31/21 09:53 Primary Reason for Your Visit: LRTSA Attending Provider: Tyson Lomax Primary Care Provider: Oscar Adhikari Consulting Providers: Amber Matias ; Jennifer rBo ; Aashish Calle ; Saeid Marroquin ; Lonny Clarke Discharge Orders/Prescriptions Prescriptions: New acetaminophen 500 mg Tablet 1,000 mg PO Q8 Qty: 0 RF: 0 aspirin 81 mg Tablet,Chewable 81 mg PO 0800,1700 Qty: 0 RF: 0 oxycodone 5 mg Tablet 5 mg PO Q6H PRN PRN (Reason: Pain Score 6-10) 7 Days Qty: 60 RF: 0 ondansetron HCl (PF) 4 mg/2 mL Solution 4 mg IV Q6H PRN PRN (Reason: Nausea) Qty: 0 RF: 0 Ensure Surgery 0.08-1.4 gram-kcal/mL Liquid 237 ml PO TIDCM Qty: 0 RF: 0 loperamide 2 mg Capsule 2 mg PO Q6H PRN PRN (Reason: Dirrhea) Qty: 0 RF: 0 Continued levothyroxine 125 mcg tablet 125 mcg PO DAILY RF: 0 metoprolol succinate 50 MG tablet extended release 24 hr 50 mg PO DAILY RF: 0 albuterol sulfate 1 PUFF inhaler 1 - 2 puff INHALATION Q6H PRN PRN (Reason: Sob &/Or Wheezing) RF: 0 metformin 500 mg Tablet Extended Release 24 Hr 500 mg PO DAILY RF: 0 cetirizine 10 mg tablet 10 mg PO DAILY PRN (Reason: Allergy Symptoms) RF: 0 pantoprazole 40 mg tablet,delayed release (DR/EC) 40 mg PO DAILY RF: 0 mirtazapine 15 mg tablet 15 mg PO QHS RF: 0 olmesartan 20 mg tablet 20 mg PO DAILY RF: 0 potassium chloride [Klor-Con M20] 20 mEq tablet,ER particles/crystals 20 meq PO DAILY RF: 0 furosemide 80 mg tablet 40 mg PO DAILY RF: 0 Breo Ellipta 100-25 mcg/dose Blister With Device 1 inh INHALATION DAILY RF: 0 ferrous sulfate 325 mg (65 mg iron) Tablet 325 mg PO BID RF: 0 folic acid 1 mg Tablet 1 mg PO DAILY RF: 0 Discontinued acetaminophen 500 mg Tablet 1,000 mg PO Q6H PRN PRN (Reason: Pain Score 1-3) Qty: 0 RF: 0 hydrocodone-acetaminophen 7.5-325 mg Tablet 1 tab PO BID RF: 0 Referrals / Follow Up: Oscar Adhikari MD [Primary Care Provider] - Disposition Disposition (needs filled in before D/C Order can be placed): Acute Care [facility]
[2021-08-03 09:13] LABS: Pathologist Review Reviewed
== END 2021-08-02 13:35 | DRG 483 ==
LOC: MS2 17:55
PROVIDERS: Anesthesiology; Hospitalist; Internal Medicine; Admitting Provider Specialist; PCP Family Medicine; Referring Provider Specialist; Visit Provider Specialist
PROC: 0RRK00Z Replacement of Left Shoulder Joint with Reverse Ball and Socket Synthetic Substitute, Open Approach (ICD-10-PCS; CPT 23472; principal; 2021-07-29 10:45)
DX: M19.012 Primary osteoarthritis, left shoulder (principal); D62 Acute posthemorrhagic anemia; E11.9 Type 2 diabetes mellitus without complications; E78.2 Mixed hyperlipidemia; D64.9 Anemia, unspecified; G89.29 Other chronic pain; I10 Essential (primary) hypertension; K21.9 Gastro-esophageal reflux disease without esophagitis; J45.909 Unspecified asthma, uncomplicated; I95.1 Orthostatic hypotension; K59.00 Constipation, unspecified; R19.7 Diarrhea, unspecified; Z79.84 Long term (current) use of oral hypoglycemic drugs; Z79.51 Long term (current) use of inhaled steroids
CPT/HCPCS: 36415; 71045; 71046; 73030; 74018; 80048; 80053; 80076; 81001; 82962; 83036; 83605; 83735; 84443; 85025; 85027; 85610; 85730; 87040; 87081; 87086; 87635; 93005; 94640; 97110; 97116; 97162; 97166; 97530; 97535; 99251; C1776; J7030; J7050; J7120; A4216; G0463; J2405; U0003; U0005

== ENCOUNTER 2021-08-02 13:42 | Inpatient (IN) | payer MEDICARE, SELFPAY ==
[2021-08-02 14:15] VITALS: BP 147/80; PULSE 94; RESP 16; TEMP 36.2; O2SAT 99; BMI 29.0
[2021-08-02 14:51] VITALS: BP 147/80; PULSE 94; RESP 16; TEMP 36.2; O2SAT 99
--- NOTE | 2021-08-02 15:32 | HP.PCM_ITS ---
HPI - General General Date of Admission: 08/02/21 HPI Narrative JERRELL BUAMAN, is a 76 Female who presents with followin07/29/2021 Dr. Lomax performed left reverse total shoulder replacement. 07/29/2021 Left shoulder sling post op. Metoprolol, Olmesartan for hypertension. Lasix for edema. Pantoprazole for GERD. Metformin, sliding scale insulin for Diabetes Mellitus II. Breo, albuterol for asthma. Iron for chronic anemia. 07/30/2021 Shaking episode resolved, not seizure. 07/31/2021 Weak, diarrhea, suprapubic pain. IV fluids for orthostatic hypotension. Fecal impaction resolved with soap suds enema, senna. 08/01/2021 Weak, dizzy yesterday. Blood pressure elevated today secondary to blood pressure medications held 1 day prior. 08/02/2021 Admit to TCU with debility, here for rehabilitation, strengthening, prior to discharge home alone. [facility] Medical History Anxiety Asthma Asthma B12 deficiency Bleeding tendency Cataracts, bilateral Chronic back pain Chronic pain Diabetes Easy bruising GERD (gastroesophageal reflux disease) High cholesterol History of colon polyps History of echocardiogram History of edema History of rheumatic fever History of stress test HLD (hyperlipidemia) HTN (hypertension) Hyperlipidemia Injury of head and neck Leg cramps Localized edema Muscle tenderness Non-smoker Post-menopausal RLS (restless legs syndrome) Shortness of breath on exertion Thyroid disease Wears dentures Wears glasses Home Medications metoprolol succinate 50 mg PO DAILY 05/19/20 [History Last Taken 07/29/21] albuterol sulfate 1 - 2 puff INHALATION Q6H PRN PRN 06/02/20 [History Last Taken 12/26/20] levothyroxine 125 mcg tablet 125 mcg PO DAILY tab 06/09/20 [History Last Taken 07/29/21] metformin 500 mg PO DAILY 12/27/20 [History Last Taken 01/19/21] cetirizine 10 mg PO DAILY PRN 05/29/21 [History Last Taken Unknown] furosemide 40 mg PO DAILY 05/29/21 [History Last Taken Unknown] mirtazapine 15 mg PO QHS 05/29/21 [History Last Taken Unknown] olmesartan 20 mg PO DAILY 05/29/21 [History Last Taken 07/29/21] pantoprazole 40 mg PO DAILY 05/29/21 [History Last Taken 07/29/21] potassium chloride [Klor-Con M20] 20 meq PO DAILY 05/29/21 [History Last Taken Unknown] Breo Ellipta 1 inh INHALATION DAILY 07/15/21 [History Last Taken Unknown] ferrous sulfate 325 mg PO BID 07/29/21 [History Last Taken Unknown] folic acid 1 mg PO DAILY 07/29/21 [History Last Taken Unknown] ondansetron HCl (PF) 4 mg IV Q6H PRN PRN #0 ml 08/01/21 [Rx Last Taken Unknown] oxycodone 5 mg PO Q6H PRN PRN 7 Days #60 tab 08/01/21 [Rx Last Taken Unknown] acetaminophen 1,000 mg PO Q8 08/02/21 [History Last Taken Unknown] aspirin 81 mg PO 0800,1700 08/02/21 [History Last Taken Unknown] loperamide 2 mg PO Q6H PRN PRN #0 cap 08/02/21 [Rx Last Taken Unknown] nut.tx.comp. immune systm,reg [Ensure Surgery] 237 ml PO TIDCM 08/02/21 [History Last Taken Unknown] Allergy/AdvReac Type Severity Reaction Status Date / Time clindamycin Allergy Mild rash Verified 07/29/21 09:11 codeine phosphate AdvReac Severe Nausea Verified 07/29/21 09:11 [From Tylenol-Codeine #3] Family History Mother Heart valve disorder Hypertension Heart disease Father Pneumococcal pneumonia CVA (cerebral vascular accident) Heart disease Myocardial infarction Surgical History History of appendectomy History of bilateral carpal tunnel release History of cardiac catheterization History of carpal tunnel release History of colonoscopy (~2012) History of hysterectomy History of loop recorder history of pain stimulator History of total right hip replacement Hx of decompressive lumbar laminectomy Hx of lumbar discectomy Hx of tonsillectomy Hx of total hip arthroplasty Status post reverse total arthroplasty of left shoulder Social History household members: none housing: apartment number of children: 2 current occupational status: retired current occupational exposures/hazards: No pets and animals: No leisure activities: exercise and volunteer work Smoking Status: Never smoker ROS Constitutional Constitutional: Denies chills, fever(s) or weight gain ENT HEENT: Denies headache(s), nasal congestion or nasal discharge Cardiovascular Cardiovascular: Denies chest pain or palpitations Respiratory/Chest Respiratory/Chest: Denies cough, excessive phlegm production or shortness of breath with exertion Gastrointestinal Gastrointestinal: Denies abdominal pain, nausea or vomiting Genitourinary Genitourinary: Denies dysuria Musculoskeletal Musculoskeletal: Denies joint pain or joint swelling Integumentary Integumentary: Denies rash or wounds Neurologic Neurologic: Denies focal weakness, numbness or tingling Psychiatric Psychiatric: Denies anxiety, auditory hallucinations, depression, homicidal ideation or suicidal ideation Vital Signs Vital Signs Vital Signs: 08/02/21 14:15 08/02/21 14:51 Temperature 97.2 F L 97.2 F L Temperature Source Temporal Temporal Pulse Rate 94 94 Pulse Rhythm Regular Pulse Strength Normal (2+) Respiratory Rate 16 16 Respiratory Effort Normal Non-Labored Respiratory Depth Normal Respiratory Pattern Normal Blood Pressure 147/80 H 147/80 H Blood Pressure Mean 102 102 Blood Pressure Source Monitor Monitor Blood Pressure Position Sitting Sitting Blood Pressure Location Right Arm Right Arm Pulse Ox 99 99 Oxygen Delivery Method Room Air Room Air Weight Weight: 77.111 kg Body Mass Index (BMI) 29.0 Physical Exam Const alert and oriented x3 General Appearance: cooperative HEENT normocephalic Eyes PERRL and EOMs intact bilaterally Neck supple, no JVD and no carotid bruits Resp normal respiratory effort, normal air movement and clear to auscultation bilaterally Cardio regular rate and regular rhythm GI normal to inspection, nondistended, normoactive bowel sounds, non-tender and non-distended Extremity normal capillary refill Extremity Narrative: Left upper extremity immobilizer. General Extremity: Negative for edema Skin no rashes or lesions noted General Skin Exam: no breakdown Psych affect normal Appearance: appropriate Results Lab / Micro Data Result Diagrams: 08/03/21 05:14 08/03/21 05:14 Assessment & Plan Assessment/Plan (1) Debility: (2) Osteoarthritis of left shoulder: (3) Orthostatic hypotension: (4) Fecal impaction of colon: (5) Hypertension: (6) Osteoarthritis: (7) Asthma: (8) Hyperlipidemia: (9) Diabetes mellitus: (10) Hypokalemia: (11) Hypothyroidism: (12) Appetite loss: PLAN: 76 year old female with below past medical history hospitalized for reverse left total shoulder replacement 07/29/[address] Lomax, complicated by orthostatic hypotension, fecal impaction of colon, admitted to TCU with debility, here for rehabilitation, strengthening, prior to discharge home alone. * Debility - PT/OT. * Pain - Tylenol 1000mg q8, Oxycodone 5mg q6h prn pain (6-10). * Bowel - Miralax 17gm daily, Senna/colace 2 tablets twice daily, Dulcolax 10mg daily prn. * Adult immunization - Administer prevnar 13, pneumovax 23, fluzone, covid19 vaccine as appropriate. * DVT prophylaxis - Hold, anemia. * Asthma - Breo 1 puff daily, Albuterol 1-2 puffs q6h prn. * CV prophylaxis - Aspirin 81mg daily. * Allergic rhinitis - Cetirizine 10mg daily prn. * Nutrition - Ensure Compact 118ml po tidcm. * Iron deficiency anemia - Ferrous sulfate 325mg bid. * Folate deficiency - Folic acid 1mg daily. * Edema - Lasix 40mg daily. * Hypothyroidism - Levothyroxine 125mcg daily. * Diabetes Mellitus II - Metformin XR 500mg daily. * Hypertension - Metoprolol succinate 50mg daily, Olmesartan 20mg daily. * Appetite loss - Mirtazapine 15mg qhs, stable chronic halfway use, GDR not recommended. * Chronic nausea - Zofran 4mg iv q6h prn.
[2021-08-02] MEDS: Fluticasone/Salmeterol 232-14 Inhaler 1 PUFF INHALATION (17:27)
[2021-08-02] MEDS: Aspirin 81 MG TAB.CHEW PO (17:31)
[2021-08-02] MEDS: Senna/Docusate Sodium 1 Tablet 2 TABLET PO (17:31)
[2021-08-02] MEDS: Ferrous Sulfate 325 MG Tablet PO (17:31)
[2021-08-02] MEDS: Acetaminophen 500 MG Tablet 1000 MG PO (22:16)
[2021-08-02] MEDS: Mirtazapine 15 MG Tablet PO (22:18)
[2021-08-03 05:18] VITALS: BP 142/59; PULSE 75
[2021-08-03] MEDS: Levothyroxine 125 MCG Tablet PO (05:18)
[2021-08-03] MEDS: Acetaminophen 500 MG Tablet 1000 MG PO ×3 (05:18→20:23)
[2021-08-03] MEDS: Metoprolol(XL)Succ 50 MG Tablet PO (05:18)
[2021-08-03] MEDS: Losartan Potassium 50 MG Tablet PO (05:19)
[2021-08-03] MEDS: Pantoprazole Sodium 40 MG Tablet PO (05:19)
[2021-08-03] MEDS: Furosemide 40 MG Tablet PO (05:19)
[2021-08-03] MEDS: Fluticasone/Salmeterol 232-14 Inhaler 1 PUFF INHALATION ×2 (05:19→17:45)
[2021-08-03 06:03] LABS: Absolute Neutrophil Count 7.8 X10^3/uL (2.0-7.7); Basophil# 0.08 X10^3/uL; Basophil% 0.7 % (0-1); Eosinophils% 3.5 % (0-5); Hemoglobin 10.2 g/dL (12.0-15.0); Mean Corp Hgb Conc 31.9 g/dL (32-36); Mean Corpuscular Hgb 32.1 pg (27.0-32.0); Mean Corpuscular Volume 100.6 fL (81-99); Mean Platelet Vol. 11.3 fl (6.2-12.0); Monocyte# 1.15 X10^3/uL; Monocyte% 10.2 % (0-10); NRBC Flagged by Analyzer 0 % (0-5); Neutrophil # 7.84 X10^3/uL (2.7-7.7); Neutrophil % 69.3 % (47-70); Platelet Count 312 K/mm3 (150-450); RBC Distribution Width CV 13.7 % (11.6-14.6); RBC Distribution Width SD 50.4 fl (35.1-43.9); Red Blood Count 3.18 M/mm3 (4.2-5.4); White Blood Count 11.3 K/mm3 (4.4-11.0)
[2021-08-03 06:52] LABS: Anion Gap 7 (5-15); BUN 16 mg/dL (7-18); BUN/Creat Ratio 23.4 RATIO (10-20); Calcium,Total 8.7 mg/dL (8.5-10.1); Chloride 104 mmol/L (98-107); Creatinine, Serum 0.68 mg/dL (0.55-1.02); EST Glomerular Filtration Rate 88 mL/min (>60); Est Glom Filt Rate - Afr Amer 107 mL/min (>60); Estimated Creatinine Clearance 40.04 ml/min; Glucose 125 mg/dL (74-106); Potassium 3.7 mmol/L (3.5-5.1); Sodium Level 135 mmol/L (136-145)
[2021-08-03] MEDS: Potassium Chloride Oral Tablet 20 MEQ PO (08:38)
[2021-08-03] MEDS: Aspirin 81 MG TAB.CHEW PO ×2 (08:38→17:45)
[2021-08-03] MEDS: Folic Acid 1 MG Tablet PO (08:38)
[2021-08-03] MEDS: metFORMIN (XR) 500 MG Tablet PO (08:38)
[2021-08-03] MEDS: Ferrous Sulfate 325 MG Tablet PO ×2 (08:38→17:45)
[2021-08-03] MEDS: Tuberculin,Purif.prot.deriv. 50 TU/ML Vial 0.1 ML ID (10:32)
--- NOTE | 2021-08-03 11:33 | CASEMGMT ---
Social Work Met with patient for initial assessment. Confirmed full code and completed MOLST form. MOLST communicated to Dr and placed in chart. Explained [employer] insurance with NRD 08/06 and continued stay is not guaranteed with each review. The goal is for pt to [facility], [facility]. [facility] and has since moved to [place], [place]. Updated address in pt chart. SW continue to follow to assist with DC plan. FERCHO HarperW
[2021-08-03] MEDS: oxyCODONE 5 MG Tablet PO ×2 (13:22→23:45)
[2021-08-03 14:00] VITALS: BP 160/59; PULSE 74; RESP 18; TEMP 36.4; O2SAT 95
[2021-08-03 14:19] VITALS: PULSE 74; RESP 18; O2SAT 95
[2021-08-03] MEDS: Albuterol Sulfate 8 gm Inhaler (60 puffs) 1 PUFF INHALATION (14:30)
[2021-08-03] MEDS: Senna/Docusate Sodium 1 Tablet 2 TABLET PO (17:45)
[2021-08-03] MEDS: Mirtazapine 15 MG Tablet PO (20:25)
[2021-08-04] MEDS: Acetaminophen 500 MG Tablet 1000 MG PO ×3 (05:05→21:57)
[2021-08-04] MEDS: Senna/Docusate Sodium 1 Tablet 2 TABLET PO ×2 (05:05→17:53)
[2021-08-04] MEDS: Albuterol Sulfate 8 gm Inhaler (60 puffs) 1 PUFF INHALATION ×2 (05:05→14:50)
[2021-08-04] MEDS: Furosemide 40 MG Tablet PO (05:05)
[2021-08-04] MEDS: Polyethylene Glycol 3350 17 GM PACKET PO (05:05)
[2021-08-04] MEDS: Pantoprazole Sodium 40 MG Tablet PO (05:06)
[2021-08-04] MEDS: Losartan Potassium 50 MG Tablet PO (05:06)
[2021-08-04] MEDS: Levothyroxine 125 MCG Tablet PO (05:06)
[2021-08-04 05:07] VITALS: BP 168/63; PULSE 68
[2021-08-04] MEDS: Fluticasone/Salmeterol 232-14 Inhaler 1 PUFF INHALATION ×2 (05:07→17:53)
[2021-08-04] MEDS: Metoprolol(XL)Succ 50 MG Tablet PO (05:07)
[2021-08-04] MEDS: oxyCODONE 5 MG Tablet PO ×3 (07:35→20:22)
--- NOTE | 2021-08-04 07:38 | NURSING ---
Dressing removed from left shoulder per order. Steris in tact, and dry. Patient tolerated well.
[2021-08-04] MEDS: Potassium Chloride Oral Tablet 20 MEQ PO (08:14)
[2021-08-04] MEDS: metFORMIN (XR) 500 MG Tablet PO (08:14)
[2021-08-04] MEDS: Ferrous Sulfate 325 MG Tablet PO ×2 (08:14→17:53)
[2021-08-04] MEDS: Aspirin 81 MG TAB.CHEW PO ×2 (08:14→17:53)
[2021-08-04] MEDS: Folic Acid 1 MG Tablet PO (08:14)
--- NOTE | 2021-08-04 13:17 | PCM.PN.RX ---
Progress Note - Pharmacy Subjective: [] TCU Admission Objective: Allergies clindamycin Allergy (Mild, Verified 07/29/21 09:11) rash codeine phosphate [From Tylenol-Codeine #3] Adverse Reaction (Severe, Verified 07/29/21 09:11) Nausea Current Medications Generic Name Dose Route Start Last Admin Trade Name Freq PRN Reason Stop Dose Admin Acetaminophen 1,000 mg 08/02/21 22:00 08/04/21 13:14 Acetaminophen 500 Mg Tablet PO 1,000 mg Q8 DICK Administration Albuterol Sulfate 1 puff 08/02/21 16:02 08/04/21 05:05 Albuterol Sulfate 8 Gm Inhaler (60 Puffs) INHALATION 1 puff Q6H PRN PRN Administration Sob &/Or Wheezing Aspirin 81 mg 08/02/21 17:00 08/04/21 08:14 Aspirin 81 Mg Tab.Chew PO 81 mg BIDCM DICK Administration Bisacodyl 10 mg 08/02/21 15:45 Bisacodyl 5 Mg Tablet PO DAILY PRN CONSTIPATION Ferrous Sulfate 325 mg 08/02/21 17:00 08/04/21 08:14 Ferrous Sulfate 325 Mg Tablet PO 325 mg BIDCM DICK Administration Folic Acid 1 mg 08/03/21 08:00 08/04/21 08:14 Folic Acid 1 Mg Tablet PO 1 mg DAILYCM DICK Administration Furosemide 40 mg 08/03/21 06:00 08/04/21 05:05 Furosemide 40 Mg Tablet PO 40 mg DAILY DICK Administration Levothyroxine Sodium 125 mcg 08/03/21 06:00 08/04/21 05:06 Levothyroxine 125 Mcg Tablet PO 125 mcg DAILY DICK Administration Loratadine 10 mg 08/02/21 16:03 Loratadine 10 Mg Tablet PO DAILY PRN ALLERGIES Losartan Potassium 50 mg 08/03/21 06:00 08/04/21 05:06 Losartan Potassium 50 Mg Tablet PO 50 mg DAILY DICK Administration Metformin HCl 500 mg 08/03/21 08:00 08/04/21 08:14 Metformin (Xr) 500 Mg Tablet PO 500 mg DAILYCM DICK Administration Metoprolol Succinate 50 mg 08/03/21 06:00 08/04/21 05:07 Metoprolol(Xl)Succ 50 Mg Tablet PO 50 mg DAILY DICK Administration Mirtazapine 15 mg 08/02/21 22:00 08/03/21 20:25 Mirtazapine 15 Mg Tablet PO 15 mg QHS DICK Administration Ondansetron HCl 4 mg 08/02/21 14:41 Ondansetron 4 Mg/2 Ml Vial IV Q6H PRN PRN Nausea Oxycodone HCl 5 mg 08/02/21 14:41 08/04/21 07:35 Oxycodone 5 Mg Tablet PO 5 mg Q6H PRN PRN Administration Pain Score 6-10 Pantoprazole Sodium 40 mg 08/03/21 06:00 08/04/21 05:06 Pantoprazole Sodium 40 Mg Tablet PO 40 mg DAILY DICK Administration Polyethylene Glycol 17 gm 08/03/21 06:00 08/04/21 05:05 Polyethylene Glycol 3350 17 Gm Packet PO 17 gm DAILY DICK Administration Potassium Chloride 20 meq 08/03/21 08:00 08/04/21 08:14 Potassium Chloride Oral Tablet 20 Meq PO 20 meq DAILYCM DICK Administration Fluticasone/Salmeterol 1 puff 08/02/21 18:00 08/04/21 05:07 Fluticasone/Salmeterol 232-14 Inhaler INHALATION 1 puff Q12 DICK Administration Senna/Docusate Sodium 2 tablet 08/02/21 18:00 08/04/21 05:05 Senna/Docusate Sodium 1 Tablet PO 2 tablet BID DICK Administration Sodium Chloride 10 - 40 ml 08/02/21 14:37 0.9% Saline Lock 10 Ml Syringe IV UD PRN SALINE FLUSH Tuberculin PPD 0.1 ml 08/10/21 10:00 Tuberculin,Purif.Prot.Deriv. 50 Tu/Ml Vial ID 08/10/21 10:01 X1 ONE Problem List (Last Reviewed 08/02/21 @ 15:[address] Jaime Culver MD) Appetite loss (Acute) Hypothyroidism (Acute) Hypokalemia (Acute) Diabetes mellitus (Acute) Hyperlipidemia (Acute) Asthma (Acute) Osteoarthritis (Acute) Hypertension (Chronic) Fecal impaction of colon (Acute) Orthostatic hypotension (Acute) Osteoarthritis of left shoulder (Acute) Debility (Acute) Vital Signs Temp Pulse Resp BP Pulse Ox 97.6 F L 68 18 168/63 H 95 08/03/21 14:00 08/04/21 05:07 08/03/21 14:19 08/04/21 05:07 08/03/21 14:19 Oxygen Delivery Method Room Air Weight: 77.111 kg Body Mass Index (BMI) 29.0 Sodium 135 mmol/L (136-145) L 08/03/21 05:14 Potassium 3.7 mmol/L (3.5-5.1) 08/03/21 05:14 Chloride 104 mmol/L (98-107) 08/03/21 05:14 Carbon Dioxide 24.0 mmol/L (21.0-32.0) 08/03/21 05:14 Anion Gap 7 (5-15) 08/03/21 05:14 BUN 16 mg/dL (7-18) 08/03/21 05:14 Creatinine 0.68 mg/dL (0.55-1.02) 08/03/21 05:14 Est GFR (MDRD) Af Amer 107 mL/min (>60) 08/03/21 05:14 Est GFR (MDRD) Non-Af 88 mL/min (>60) 08/03/21 05:14 BUN/Creatinine Ratio 23.4 RATIO (10-20) H 08/03/21 05:14 Glucose 125 mg/dL (74-106) H 08/03/21 05:14 Assessment/Plan: 1) Pain: Acetaminophen 1000mg po q8h scheduled, Oxycodone 5mg po q6h prn for pain 6-10. Please continue to monitor prn usage and for signs/symptoms of increased pain. 2) Allergic Rhinitis: Loratadine 10mg po daily prn for allergies. Please continue to monitor prn usage and for signs/symptoms of allergic rhinitis. 3) Hypothyroidism: Levothyroxine 125mcg po daily. Pts last TSH was 0.71 which was on 07/20/21. Please continue to monitor 4) GERD: Pantoprazole 40mg po daily. Please continue to monitor for signs/symptoms of GERD 5) Edema: Furosemide 40mg po daily, Postassium Chloride 20meq po daily with meals. Pts Na is 135 and K+ is 3.7. Please continue to monitor labs. Please continue to monitor for signs/symptoms of swelling. *6) Diabetes: Metformin XR 500mg po daily with meals. Pts A1C is 6.6, SrCr is 0.68, and LFTs are within normal limits. Please continue to monitor labs. --pt has a listed medical diagnosis of Diabetes and Hyperlipidemia and is not on a Statin. Please consider adding a Statin to the pts medication profile. Thanks 7) Hypertension: Losartan 50mg po daily, Metoprolol Succinate 50mg po daily. Pts K+ is 3.7, SrCr is 0.68, and BUN is 16. Please continue to monitor labs. Pts average blood pressure over the last 5 readings is 152.8/68.2. Please continue to monitor. 8) CV Prophylaxis: Aspirin 81mg po bid with food. Please continue to monitor for signs/symptoms of bruising/bleeding as well as dvt. Thanks 9) Asthma: Albuterol Inhaler 1 puff every 6 hours as needed for shortness of breath and/or wheezing, Fluticasone/Salmeterol 1 puff every 12 hours. Please continue to monitor prn usage. To date there has been 2 doses of Albuterol used. Please continue to ensure that pt rinses mouth and gargles after Fluticasone/Salmeterol use to reduce the chances of oral thrush. Thanks Psychotropic Medications: Mirtazapine 15mg po qhs for appetite enhancement. See physicians note about GDR. Unnecessary Medications: *Bowel Regimen: Bisacodyl 10mg po daily prn for constipation, Miralax 17gm po daily, Senna/Docusate 2 tablets po bid. Please continue to monitor prn usage and for signs/symptoms of constipation/diarrhea. --Per Dieticians note from 08/03/21, pt is complaining of diarrhea. Please re evaluate continue need of scheduled Miralax and Senna/Docusate Date of Note:: 08/04/21
[2021-08-04 16:15] VITALS: BP 116/53; PULSE 73; RESP 18; TEMP 36.6; O2SAT 92
[2021-08-04] MEDS: Mirtazapine 15 MG Tablet PO (21:57)
[2021-08-04 22:10] VITALS: PULSE 77; RESP 16; O2SAT 97
[2021-08-05] MEDS: oxyCODONE 5 MG Tablet PO ×3 (02:40→21:57)
[2021-08-05] MEDS: Losartan Potassium 50 MG Tablet PO (05:11)
[2021-08-05] MEDS: Fluticasone/Salmeterol 232-14 Inhaler 1 PUFF INHALATION ×2 (05:11→17:05)
[2021-08-05] MEDS: Polyethylene Glycol 3350 17 GM PACKET PO (05:11)
[2021-08-05 05:12] VITALS: BP 174/53; PULSE 68
[2021-08-05] MEDS: Pantoprazole Sodium 40 MG Tablet PO (05:12)
[2021-08-05] MEDS: Acetaminophen 500 MG Tablet 1000 MG PO ×3 (05:12→20:55)
[2021-08-05] MEDS: Metoprolol(XL)Succ 50 MG Tablet PO (05:12)
[2021-08-05] MEDS: Furosemide 40 MG Tablet PO (05:13)
[2021-08-05] MEDS: Levothyroxine 125 MCG Tablet PO (05:13)
[2021-08-05] MEDS: Senna/Docusate Sodium 1 Tablet 2 TABLET PO ×2 (05:13→17:06)
--- NOTE | 2021-08-05 05:44 | NURSING ---
Pt. reports emesis at this time. States I came back from the bathroom and then threw up in the trash can. Emesis bag provided. No acute distress observed or reported. Patient requests 0600 medications be changed to later in the morning stating it's easier on my stomach, that's how I did it last time I was here. Patient also requests for IV Zofran to be changed to oral and routine before meals. Declines IV placement at this time. Patient reports nausea subsided at this time. Patient also reports poor appetite and nausea at meal times. Written communication left for Dr. Culver regarding patient request.
[2021-08-05] MEDS: Potassium Chloride Oral Tablet 20 MEQ PO (08:42)
[2021-08-05] MEDS: Folic Acid 1 MG Tablet PO (08:42)
[2021-08-05] MEDS: Aspirin 81 MG TAB.CHEW PO ×2 (08:42→17:06)
[2021-08-05] MEDS: metFORMIN (XR) 500 MG Tablet PO (08:42)
[2021-08-05] MEDS: Ferrous Sulfate 325 MG Tablet PO ×2 (08:42→17:07)
--- NOTE | 2021-08-05 09:23 | CASEMGMT ---
Social Work IDT met with patient and dtr via conference call for care plan meeting. Discussed patient's progress in PT/OT/ST and nursing. Pt progressing well. Pt is NWBS for LUE which interferes with ability to do ADLs. Pt does live at home alone. Pt has f/u appt with 08/12. Will see how healing is going and if any increase in WBS or change in therapy instructions. Explained [employer] insurance with NRD 08/06 and continued stay is not guaranteed with each review. Inquired about DC plan. Pt has outstanding bill at [facility] as her Medicaid was not approved. Explained pt will need assistance to return home until able to use arm and going to another facility would be private pay. Dtr is on disability and cannot assist selling underwriter. Encouraged to discuss with dtr alternative DC options and SW to assist as well. The goal is for pt to remain in TCU at least until f/u appt to see if WBS will increase for therapy continuing rehabing pt. Pt agreeable. SW to continue to follow. Patience Messer, [employer] NURSING RESIDENT
[2021-08-05] MEDS: Ondansetron ODT 4 MG Tablet 8 MG PO ×2 (11:17→17:07)
[2021-08-05 11:21] VITALS: PULSE 72; RESP 18
[2021-08-05] MEDS: Albuterol 2.5 MG/3 ML VIAL.NEB. INHALATION ×2 (11:22→15:15)
[2021-08-05 13:10] VITALS: BP 154/51; PULSE 80; RESP 20; TEMP 36.2; O2SAT 96
[2021-08-05 15:15] VITALS: PULSE 81; RESP 16
[2021-08-05 20:00] VITALS: BP 139/45; PULSE 58; RESP 20
[2021-08-05] MEDS: Mirtazapine 15 MG Tablet PO (20:55)
[2021-08-05] MEDS: NYSTATIN 500,000 UNIT/5 ML UDC 500000 UNIT PO (20:55)
[2021-08-06] MEDS: Ondansetron ODT 4 MG Tablet 8 MG PO ×3 (06:16→16:48)
[2021-08-06 06:18] VITALS: BP 176/70; PULSE 77
[2021-08-06] MEDS: Metoprolol(XL)Succ 50 MG Tablet PO (06:18)
[2021-08-06] MEDS: Levothyroxine 125 MCG Tablet PO (06:18)
[2021-08-06] MEDS: Losartan Potassium 50 MG Tablet PO (06:18)
[2021-08-06] MEDS: oxyCODONE 5 MG Tablet PO ×2 (06:19→12:37)
[2021-08-06] MEDS: Pantoprazole Sodium 40 MG Tablet PO (06:19)
[2021-08-06] MEDS: Furosemide 40 MG Tablet PO (06:19)
[2021-08-06 06:50] LABS: Bedside Glucose 123 mg/dL (70-110)
[2021-08-06] MEDS: Aspirin 81 MG TAB.CHEW PO ×2 (08:37→16:48)
[2021-08-06] MEDS: Ferrous Sulfate 325 MG Tablet PO ×2 (08:38→16:48)
[2021-08-06] MEDS: Senna/Docusate Sodium 1 Tablet 2 TABLET PO (08:40)
[2021-08-06] MEDS: Potassium Chloride Oral Tablet 20 MEQ PO (08:40)
[2021-08-06] MEDS: Folic Acid 1 MG Tablet PO (08:40)
[2021-08-06] MEDS: metFORMIN (XR) 500 MG Tablet PO (08:40)
[2021-08-06] MEDS: Fluticasone/Salmeterol 232-14 Inhaler 1 PUFF INHALATION ×2 (08:41→16:48)
[2021-08-06 08:42] VITALS: BP 142/49; PULSE 87
[2021-08-06] MEDS: Baclofen 10 MG Tablet PO (11:20)
[2021-08-06] MEDS: NYSTATIN 500,000 UNIT/5 ML UDC 500000 UNIT PO ×2 (11:20→16:48)
[2021-08-06] MEDS: Acetaminophen 500 MG Tablet 1000 MG PO (13:12)
[2021-08-06 14:00] VITALS: BP 95/63; PULSE 74; RESP 18; TEMP 35.6; O2SAT 95
--- NOTE | 2021-08-06 14:01 | NURSING ---
Addendum entered by Christina Mckeon 08/06/21 17:28: KUB ORDERED. Original Note: R' C/O ABD CRAMPING AND DIARRHEA TODAY. SHE STATES ZOFRAN WAS EFFECTIVE WITH NAUSEA SHE'S BEEN HAVING. SHE IS REQUESTING KUB. SHE HAD ONE ON 07/31 REGARDING DIARRHEA. WILL UPDATE DR ROBERTS
[2021-08-06 19:16] LABS: Bedside Glucose 252 mg/dL (70-110)
--- NOTE | 2021-08-06 19:23 | NURSING ---
notified DR parra d/t pt abdominal pain, pt diaphoretic, warm blanket applied to abdomen. pt reports not passing gas, but alot of nausea today. zofran effective until pt ate baked potato and carrots at supper. new order to send to ER. report called Mitchell in ER, he will call us when they have a room ready. will pass on in report.
--- NOTE | 2021-08-06 19:24 | NURSING ---
Pt's call light nikkiing, this nurse answered and saw pt hunched over in pain yelling out, stating she has been vomiting and had diarrhea since she ate dinner. Pt described emesis as brown but had baked potato and carrots for dinner. Cold and diaphoretic with sweat beading off face and extremities. Pt is diabetic BS checked and was 252. BP 91/40, HR 52. Other staff called to this room and pt assisted into bed.
--- NOTE | 2021-08-06 20:05 | RAD_ITS ---
STUDY: X-RAY - ABDOMEN/PELVIS REASON FOR EXAM: Female, 76 years old. abdominal pain/diarrhea TECHNIQUE: KUB COMPARISON: 07/31/2021. FINDINGS: Lung bases are clear. There is a non-obstructive bowel gas pattern. There is no organomegaly. Atherosclerotic calcification of the splenic artery. Degenerative changes of the lumbar spine. Neurostimulator unit is present. Soft tissues and bony structures are otherwise unremarkable. RAD/Abdomen Single View IMPRESSION: No acute findings. Electronically Signed: Mindy Szymanski MD at 20:53 EST Reading Location ID and State: [id number] / Tel , Service support ,
--- NOTE | 2021-08-06 23:49 | NURSING ---
2034: Pt states abdominal pain is 10/10 directly over umbilicus. Pt states she had a bm earlier and was nauseous. Pt is awaiting a bed in ER to be evaluated. Call from xray and ER at 2029. Pt transported to Xray first and then to ER for evaluation.
--- NOTE | 2021-08-07 09:18 | CASEMGMT ---
Addendum entered by Patience Messer 08/07/21 15:41: Collaborated with acute SW, Bernadine, to determine pt's wishes and needs. Pt is reviewing SNF list. Pt completed Medicaid application - provided to this worker. Pt provided SW names of insurance claims specialist that manages life insurance policy, another life insurance policy company [employer], and home. This worker contact insurance claims specialist - Sebastián Barnett ([phone]), he confirmed he handles pt's policy through [employer]. He will contact them Thursday 08/10 when open, to provide this worker with policy information. Left message with other [employer] [phone], requesting a return phone call. Spoke with [facility] in [place], [place] [phone], and they have no record of the pt. Will update pt and continue to assist. Addendum entered by Patience Messer 08/07/21 09:54: JFS stated pt did not meet LTC qualifications at that time and was over eligibility standard for base Medicaid. Suggested to resubmit application to reevaluate. JFS stated LTC qualifications are 30 days. Pt owes $2100 to [facility] and they report she has been making monthly payments. Will discuss with pt once returns to unit or provide hand off to acute SW. Original Note: Social Work Communication sent to [facility] JFS to inquire about reason for denial for Medicaid in February 2021. It is recommended pt DC to a SNF for continued stay for NW[employer]. Will continue to follow. FERCHO HarperW
[2021-08-07 15:56] VITALS: BP 150/56; PULSE 78; RESP 18; TEMP 36.7; O2SAT 98
--- NOTE | 2021-08-07 16:02 | NURSING ---
Brought back to unit. Alert and oriented and abdomen feel better. Ice to Lt shoulder. SLing in place. Up in chair. NICK wraps to Bilateral legs for swelling and legs elevated.
[2021-08-07] MEDS: oxyCODONE 5 MG Tablet PO (16:47)
[2021-08-07] MEDS: NYSTATIN 500,000 UNIT/5 ML UDC 500000 UNIT PO ×2 (16:47→22:21)
[2021-08-07] MEDS: Aspirin 81 MG TAB.CHEW PO (16:48)
[2021-08-07] MEDS: Fluticasone/Salmeterol 232-14 Inhaler 1 PUFF INHALATION (16:48)
[2021-08-07] MEDS: Ondansetron ODT 4 MG Tablet 8 MG PO (16:48)
[2021-08-07] MEDS: Senna/Docusate Sodium 1 Tablet 2 TABLET PO (16:48)
[2021-08-07] MEDS: Ferrous Sulfate 325 MG Tablet PO (16:48)
[2021-08-07] MEDS: Cefdinir 300 MG Capsule PO (20:10)
[2021-08-07 20:33] VITALS: PULSE 80; RESP 18
[2021-08-07] MEDS: Albuterol 2.5 MG/3 ML VIAL.NEB. INHALATION (20:33)
[2021-08-07] MEDS: Mirtazapine 15 MG Tablet PO (22:21)
[2021-08-07] MEDS: Acetaminophen 500 MG Tablet 1000 MG PO (22:21)
[2021-08-08] MEDS: 0.9% Saline Lock 10 ML Syringe IV (05:30)
[2021-08-08] MEDS: oxyCODONE 5 MG Tablet PO ×3 (05:42→21:39)
[2021-08-08] MEDS: Levothyroxine 125 MCG Tablet PO (06:00)
[2021-08-08] MEDS: Polyethylene Glycol 3350 17 GM PACKET PO (06:00)
[2021-08-08] MEDS: Acetaminophen 500 MG Tablet 1000 MG PO ×3 (06:00→22:00)
[2021-08-08] MEDS: Losartan Potassium 100 MG Tablet PO (06:00)
[2021-08-08] MEDS: Pantoprazole Sodium 40 MG Tablet PO (06:00)
[2021-08-08] MEDS: NYSTATIN 500,000 UNIT/5 ML UDC 500000 UNIT PO ×4 (06:00→22:00)
[2021-08-08] MEDS: Cefdinir 300 MG Capsule PO ×2 (06:00→18:00)
[2021-08-08] MEDS: Ondansetron ODT 4 MG Tablet 8 MG PO ×3 (06:45→16:45)
[2021-08-08] MEDS: Potassium Chloride Oral Tablet 20 MEQ PO (08:00)
[2021-08-08] MEDS: Ferrous Sulfate 325 MG Tablet PO ×2 (08:00→17:00)
[2021-08-08] MEDS: metFORMIN (XR) 500 MG Tablet PO (08:00)
[2021-08-08] MEDS: Folic Acid 1 MG Tablet PO (08:00)
[2021-08-08] MEDS: Senna/Docusate Sodium 1 Tablet 2 TABLET PO (08:00)
[2021-08-08] MEDS: Aspirin 81 MG TAB.CHEW PO ×2 (08:00→17:00)
[2021-08-08] MEDS: Fluticasone/Salmeterol 232-14 Inhaler 1 PUFF INHALATION ×2 (08:00→18:00)
[2021-08-08 19:06] LABS: Anion Gap 7 (5-15); BUN 10 mg/dL (7-18); BUN/Creat Ratio 13.3 RATIO (10-20); Chloride 103 mmol/L (98-107); Creatinine, Serum 0.75 mg/dL (0.55-1.02); EST Glomerular Filtration Rate 79 mL/min (>60); Est Glom Filt Rate - Afr Amer 96 mL/min (>60); Estimated Creatinine Clearance 40.04 ml/min; Glucose 124 mg/dL (74-106); Potassium 4.1 mmol/L (3.5-5.1); Sodium Level 134 mmol/L (136-145)
[2021-08-08 19:24] LABS: Bedside Glucose 137 mg/dL (70-110)
[2021-08-08 22:00] VITALS: PULSE 69; RESP 14; O2SAT 96
[2021-08-08] MEDS: Mirtazapine 15 MG Tablet PO (22:00)
[2021-08-09] MEDS: Polyethylene Glycol 3350 17 GM PACKET PO (05:30)
[2021-08-09] MEDS: Cefdinir 300 MG Capsule PO ×2 (05:31→16:33)
[2021-08-09 05:32] VITALS: BP 157/76; PULSE 67
[2021-08-09] MEDS: Metoprolol(XL)Succ 100 MG Tablet PO ×2 (05:32→09:57)
[2021-08-09] MEDS: Levothyroxine 125 MCG Tablet PO (05:32)
[2021-08-09] MEDS: Acetaminophen 500 MG Tablet 1000 MG PO ×3 (05:33→21:39)
[2021-08-09] MEDS: Pantoprazole Sodium 40 MG Tablet PO (05:33)
[2021-08-09] MEDS: Losartan Potassium 100 MG Tablet PO (05:33)
[2021-08-09] MEDS: Ondansetron ODT 4 MG Tablet 8 MG PO ×3 (05:34→16:33)
[2021-08-09 06:11] LABS: Bedside Glucose 114 mg/dL (70-110)
[2021-08-09] MEDS: Fluticasone/Salmeterol 232-14 Inhaler 1 PUFF INHALATION ×2 (08:34→16:33)
[2021-08-09] MEDS: metFORMIN (XR) 500 MG Tablet PO (08:35)
[2021-08-09] MEDS: Ferrous Sulfate 325 MG Tablet PO ×2 (08:35→16:33)
[2021-08-09] MEDS: Folic Acid 1 MG Tablet PO (08:35)
[2021-08-09] MEDS: Potassium Chloride Oral Tablet 20 MEQ PO (08:35)
[2021-08-09] MEDS: Aspirin 81 MG TAB.CHEW PO (08:35)
[2021-08-09] MEDS: oxyCODONE 5 MG Tablet PO ×2 (08:38→21:25)
[2021-08-09 09:57] VITALS: BP 181/77; PULSE 71
--- NOTE | 2021-08-09 10:53 | NS ---
Res on full liquid diet d/t diarrhea, diverticulitis per ANITA Samson. Full liquid menu options limited given lactose intolerance. Will puree chicken noodle soup to full liquid consistency since res cannot have tomato soup (contains dairy). Shereen Segundo MS, RDN, LD
[2021-08-09] MEDS: NYSTATIN 500,000 UNIT/5 ML UDC 500000 UNIT PO ×3 (11:00→21:38)
[2021-08-09 13:35] VITALS: BP 149/60; PULSE 68; RESP 18; TEMP 36.6; O2SAT 95
[2021-08-09 13:36] VITALS: PULSE 68; RESP 18; O2SAT 95
[2021-08-09] MEDS: Mirtazapine 15 MG Tablet PO (21:39)
--- NOTE | 2021-08-10 02:37 | NURSING ---
unable to chart on patients scheduled HS dose of tylenol. Due to the way down time doses were charted on 08/09 computer would not allow another dose to be given.
[2021-08-10 05:27] LABS: Absolute Lymphocyte Count 1.33 X10^3/uL (0.83-4.51); Absolute Neutrophil Count 7.9 X10^3/uL (2.0-7.7); Basophil# 0.07 X10^3/uL; Basophil% 0.6 % (0-1); Eosinophil# 0.69 X10^3/uL; Eosinophils% 6.1 % (0-5); Hematocrit 33.2 % (37-47); Hemoglobin 10.6 g/dL (12.0-15.0); Lymphocyte # 1.33 X10^3/ul (0.83-4.51); Lymphocyte % 11.8 % (19-41); Mean Corp Hgb Conc 31.9 g/dL (32-36); Mean Corpuscular Hgb 32.2 pg (27.0-32.0); Mean Corpuscular Volume 100.9 fL (81-99); Mean Platelet Vol. 10.6 fl (6.2-12.0); Monocyte# 0.84 X10^3/uL; Monocyte% 7.4 % (0-10); NRBC Flagged by Analyzer 0 % (0-5); Neutrophil # 7.89 X10^3/uL (2.7-7.7); Neutrophil % 69.9 % (47-70); Platelet Count 384 K/mm3 (150-450); RBC Distribution Width CV 13.3 % (11.6-14.6); RBC Distribution Width SD 50.1 fl (35.1-43.9); Red Blood Count 3.29 M/mm3 (4.2-5.4); White Blood Count 11.3 K/mm3 (4.4-11.0)
[2021-08-10] MEDS: Levothyroxine 125 MCG Tablet PO (05:30)
[2021-08-10] MEDS: Cefdinir 300 MG Capsule PO ×2 (05:30→18:38)
[2021-08-10] MEDS: Losartan Potassium 100 MG Tablet PO (05:30)
[2021-08-10] MEDS: Acetaminophen 500 MG Tablet 1000 MG PO ×3 (05:31→21:00)
[2021-08-10] MEDS: Pantoprazole Sodium 40 MG Tablet PO (05:32)
[2021-08-10] MEDS: Polyethylene Glycol 3350 17 GM PACKET PO (05:33)
[2021-08-10] MEDS: Ondansetron ODT 4 MG Tablet 8 MG PO ×3 (05:34→15:50)
[2021-08-10 05:35] VITALS: BP 170/68; PULSE 68
[2021-08-10] MEDS: NYSTATIN 500,000 UNIT/5 ML UDC 500000 UNIT PO ×4 (05:35→20:59)
[2021-08-10] MEDS: Metoprolol(XL)Succ 100 MG Tablet PO (05:35)
[2021-08-10 05:55] LABS: Anion Gap 6 (5-15); BUN 13 mg/dL (7-18); BUN/Creat Ratio 15.9 RATIO (10-20); Calcium,Total 8.8 mg/dL (8.5-10.1); Chloride 100 mmol/L (98-107); Creatinine, Serum 0.82 mg/dL (0.55-1.02); EST Glomerular Filtration Rate 72 mL/min (>60); Est Glom Filt Rate - Afr Amer 87 mL/min (>60); Estimated Creatinine Clearance 48.83 ml/min; Glucose 136 mg/dL (74-106); Potassium 4.5 mmol/L (3.5-5.1); Sodium Level 129 mmol/L (136-145)
[2021-08-10] MEDS: Furosemide 40 MG Tablet PO (06:05)
[2021-08-10 06:31] LABS: Bedside Glucose 116 mg/dL (70-110)
[2021-08-10] MEDS: Potassium Chloride Oral Tablet 20 MEQ PO (08:18)
[2021-08-10] MEDS: Fluticasone/Salmeterol 232-14 Inhaler 1 PUFF INHALATION ×2 (08:18→18:38)
[2021-08-10] MEDS: Aspirin 81 MG TAB.CHEW PO ×3 (08:19→18:38)
[2021-08-10] MEDS: metFORMIN (XR) 500 MG Tablet PO (08:19)
[2021-08-10] MEDS: Senna/Docusate Sodium 1 Tablet 2 TABLET PO ×2 (08:19→18:38)
[2021-08-10] MEDS: Ferrous Sulfate 325 MG Tablet PO ×2 (08:19→18:38)
[2021-08-10] MEDS: Folic Acid 1 MG Tablet PO (08:19)
[2021-08-10] MEDS: Tuberculin,Purif.prot.deriv. 50 TU/ML Vial 0.1 ML ID (10:46)
--- NOTE | 2021-08-10 11:57 | CASEMGMT ---
Addendum entered by Patience Messer 08/11/21 15:22: Referrals to SNF made yesterday. Left messages to follow up. Will await outcomes. Followed up with pt and her phone calls. She confirmed she does not have any arrangements made at the home. She does have another life insurance policy through [employer] worth about $7,000 and they are sending her the paperwork to get that liquidated. Pt did agree to turn one policy over to the home. Pt to call home and coordinate arrangements with payment from life insurance policy. Original Note: Social Work Received return call from [employer] and unable to speak to this worker without pt authorization. Spoke with pt about followed up on findings from 08/07. Pt states she is certain she has a record at the home and [employer] [facility]. SW suggested for her to contact both places to gather further information. Provided contact information of both and questions to ask. Pt did provide choices of SNF: [facility] and [facility]. Referrals to be made. SW to continue to follow. Patience Messer, FERCHO MORANW
[2021-08-10] MEDS: oxyCODONE 5 MG Tablet PO (15:55)
[2021-08-10 16:24] VITALS: BP 142/63; PULSE 62; RESP 18; TEMP 36.9; O2SAT 100
[2021-08-10] MEDS: Mirtazapine 15 MG Tablet PO (21:01)
[2021-08-11] MEDS: Acetaminophen 500 MG Tablet 1000 MG PO ×3 (06:21→22:02)
[2021-08-11] MEDS: Ondansetron ODT 4 MG Tablet 8 MG PO ×3 (06:22→16:48)
[2021-08-11] MEDS: 0.9% Saline Lock 10 ML Syringe IV ×2 (06:26→12:53)
[2021-08-11] MEDS: Pantoprazole Sodium 40 MG Tablet PO (06:26)
[2021-08-11] MEDS: Levothyroxine 125 MCG Tablet PO (06:26)
[2021-08-11 06:27] VITALS: BP 155/64; PULSE 69
[2021-08-11] MEDS: Losartan Potassium 100 MG Tablet PO (06:27)
[2021-08-11] MEDS: Cefdinir 300 MG Capsule PO ×2 (06:27→16:50)
[2021-08-11] MEDS: NYSTATIN 500,000 UNIT/5 ML UDC 500000 UNIT PO ×4 (06:27→22:01)
[2021-08-11] MEDS: Metoprolol(XL)Succ 100 MG Tablet PO (06:27)
[2021-08-11 06:41] LABS: Bedside Glucose 109 mg/dL (70-110)
[2021-08-11] MEDS: Ferrous Sulfate 325 MG Tablet PO ×2 (08:31→16:49)
[2021-08-11] MEDS: Folic Acid 1 MG Tablet PO (08:32)
[2021-08-11] MEDS: Aspirin 81 MG TAB.CHEW PO ×2 (08:32→16:51)
[2021-08-11] MEDS: Senna/Docusate Sodium 1 Tablet 2 TABLET PO ×2 (08:32→16:50)
[2021-08-11] MEDS: metFORMIN (XR) 500 MG Tablet PO (08:32)
[2021-08-11] MEDS: Potassium Chloride Oral Tablet 20 MEQ PO (08:32)
[2021-08-11] MEDS: Fluticasone/Salmeterol 232-14 Inhaler 1 PUFF INHALATION ×2 (08:32→16:51)
[2021-08-11] MEDS: Furosemide 40 MG Tablet PO (08:57)
--- NOTE | 2021-08-11 08:58 | NURSING ---
Spoke with pharmacist Lenin, he stated that he spoke with Dr. Culver this am and Dr. Culver wants to continue the Lasix and that he accidentally ordered a duplicate.
[2021-08-11 13:50] VITALS: BP 127/52; PULSE 72; RESP 16; TEMP 36.3; O2SAT 96
--- NOTE | 2021-08-11 16:24 | NURSING ---
Resident and daughter, October, notified of staff member testing positive for COVID.
[2021-08-11] MEDS: oxyCODONE 5 MG Tablet PO (16:54)
[2021-08-11] MEDS: Loratadine 10 MG Tablet PO (16:59)
--- NOTE | 2021-08-11 17:56 | NURSING ---
R ' C/O SORE THROAT, NASAL CONGESTION, COUGH. UPDATED DR ROBERTS- N.Kenji. TEST FOR COVID. ADMINISTERED CLARITIN BC SHE THOUGH IT MIGHT BE ALLERGIES
[2021-08-11 21:00] VITALS: PULSE 73; RESP 16; O2SAT 99
[2021-08-11] MEDS: Mirtazapine 15 MG Tablet PO (22:02)
[2021-08-12] MEDS: 0.9% Saline Lock 10 ML Syringe IV ×2 (06:07→16:17)
[2021-08-12] MEDS: Acetaminophen 500 MG Tablet 1000 MG PO ×3 (06:09→21:04)
[2021-08-12] MEDS: Levothyroxine 125 MCG Tablet PO (06:10)
[2021-08-12] MEDS: Losartan Potassium 100 MG Tablet PO (06:10)
[2021-08-12] MEDS: NYSTATIN 500,000 UNIT/5 ML UDC 500000 UNIT PO ×4 (06:10→21:04)
[2021-08-12] MEDS: Ondansetron ODT 4 MG Tablet 8 MG PO ×3 (06:10→16:11)
[2021-08-12] MEDS: Pantoprazole Sodium 40 MG Tablet PO (06:10)
[2021-08-12] MEDS: Cefdinir 300 MG Capsule PO (06:10)
[2021-08-12] MEDS: Furosemide 40 MG Tablet PO (06:10)
[2021-08-12 06:23] VITALS: BP 169/76; PULSE 80
[2021-08-12] MEDS: Metoprolol(XL)Succ 100 MG Tablet PO (06:23)
[2021-08-12 06:40] LABS: Bedside Glucose 107 mg/dL (70-110)
[2021-08-12] MEDS: Potassium Chloride Oral Tablet 20 MEQ PO (08:08)
[2021-08-12] MEDS: Folic Acid 1 MG Tablet PO (08:08)
[2021-08-12] MEDS: Ferrous Sulfate 325 MG Tablet PO ×2 (08:08→16:12)
[2021-08-12] MEDS: Aspirin 81 MG TAB.CHEW PO ×2 (08:08→16:11)
[2021-08-12] MEDS: metFORMIN (XR) 500 MG Tablet PO (08:08)
[2021-08-12] MEDS: Fluticasone/Salmeterol 232-14 Inhaler 1 PUFF INHALATION ×2 (08:09→16:13)
--- NOTE | 2021-08-12 10:25 | NURSING ---
pt had large amount of liquid emsis this am, vomited all 0800 medications.
[2021-08-12 13:33] VITALS: BP 171/95; PULSE 74; RESP 18; TEMP 35.9; O2SAT 98
--- NOTE | 2021-08-12 15:24 | CASEMGMT ---
Addendum entered by Patience Messer 08/13/21 14:34: [facility] accepted, but cannot provide therapy because they are not in network with [facility]. Pt understands. CC are requiring payment up front for 14 days. Spoke with pt and she cannot pay privately without the insurance policy and agreeable to go to [facility]. Updated her that insurance NRD 08/17 and to anticipate a DC 08/20. Pt understands. Updated [facility] and [facility] of pt choice. Addendum entered by Patience Messer 08/12/21 16:42: Patient also requested referral to [facility]. Referral made. She has contacted the home and they will be working with her to get her arrangements paid for through her life insurance policy. Original Note: Social Work Left another message with CC. Spoke with pt requesting additional SNFs as insurance update is tomorrow. Pt chooses [facility]. Referral made. Emailed JFS to inquire about [facility] pending number. Will continue to follow. FERCHO Harper
[2021-08-12] MEDS: Loratadine 10 MG Tablet PO (16:11)
[2021-08-12] MEDS: Fluticasone 0.05% 1 SPRAY NASAL.SRY NASAL (17:54)
[2021-08-12] MEDS: Baclofen 10 MG Tablet PO (21:04)
[2021-08-12] MEDS: Mirtazapine 15 MG Tablet PO (21:06)
[2021-08-13] MEDS: oxyCODONE 5 MG Tablet PO ×2 (02:41→18:02)
[2021-08-13] MEDS: Ondansetron ODT 4 MG Tablet 8 MG PO ×3 (04:31→17:37)
[2021-08-13] MEDS: Acetaminophen 500 MG Tablet 1000 MG PO ×3 (04:34→21:25)
[2021-08-13] MEDS: Pantoprazole Sodium 40 MG Tablet PO (04:34)
[2021-08-13] MEDS: Losartan Potassium 100 MG Tablet PO (04:35)
[2021-08-13] MEDS: Levothyroxine 125 MCG Tablet PO (04:35)
[2021-08-13] MEDS: Furosemide 40 MG Tablet PO (04:35)
[2021-08-13 04:36] VITALS: BP 182/67; PULSE 68
[2021-08-13] MEDS: Metoprolol(XL)Succ 100 MG Tablet PO (04:36)
[2021-08-13] MEDS: NYSTATIN 500,000 UNIT/5 ML UDC 500000 UNIT PO ×4 (04:36→21:24)
[2021-08-13] MEDS: Fluticasone 0.05% 1 SPRAY NASAL.SRY NASAL ×2 (04:42→17:39)
[2021-08-13] MEDS: 0.9% Saline Lock 10 ML Syringe IV ×2 (04:43→11:03)
[2021-08-13 06:15] LABS: Bedside Glucose 149 mg/dL (70-110)
[2021-08-13] MEDS: Aspirin 81 MG TAB.CHEW PO ×2 (09:11→17:37)
[2021-08-13] MEDS: Folic Acid 1 MG Tablet PO (09:11)
[2021-08-13] MEDS: Ferrous Sulfate 325 MG Tablet PO ×2 (09:11→17:38)
[2021-08-13] MEDS: metFORMIN (XR) 500 MG Tablet PO (09:11)
[2021-08-13] MEDS: Potassium Chloride Oral Tablet 20 MEQ PO (09:11)
[2021-08-13] MEDS: Fluticasone/Salmeterol 232-14 Inhaler 1 PUFF INHALATION ×2 (09:12→17:38)
--- NOTE | 2021-08-13 12:58 | MDS.RN ---
Information for the mds was obtained from review of the clinical record, interview of resident, staff, and direct observation of resident's care. Information systems, billing dept, and [facility] aware PDPM codes not generating with finalized mds assessment. '
--- NOTE | 2021-08-13 13:43 | NURSING ---
Patient and daughter, October notified that a patient on the unit has tested positive for covid.
[2021-08-13 14:00] VITALS: BP 157/79; PULSE 64; RESP 16; TEMP 36.2; O2SAT 98
[2021-08-13] MEDS: Mirtazapine 15 MG Tablet PO (21:27)
[2021-08-14] MEDS: Ondansetron ODT 4 MG Tablet 8 MG PO ×3 (06:05→17:24)
[2021-08-14 06:31] LABS: Bedside Glucose 123 mg/dL (70-110)
[2021-08-14 06:42] VITALS: BP 153/65; PULSE 110
[2021-08-14] MEDS: Polyethylene Glycol 3350 17 GM PACKET PO (06:42)
[2021-08-14] MEDS: Pantoprazole Sodium 40 MG Tablet PO (06:42)
[2021-08-14] MEDS: Metoprolol(XL)Succ 100 MG Tablet PO (06:42)
[2021-08-14] MEDS: NYSTATIN 500,000 UNIT/5 ML UDC 500000 UNIT PO ×4 (06:42→19:43)
[2021-08-14] MEDS: Acetaminophen 500 MG Tablet 1000 MG PO ×3 (06:43→19:44)
[2021-08-14] MEDS: Levothyroxine 125 MCG Tablet PO (06:43)
[2021-08-14] MEDS: Losartan Potassium 100 MG Tablet PO (06:44)
[2021-08-14] MEDS: Furosemide 40 MG Tablet PO (06:44)
[2021-08-14] MEDS: Fluticasone 0.05% 1 SPRAY NASAL.SRY NASAL ×2 (06:48→17:25)
--- NOTE | 2021-08-14 08:06 | DS.PCM_ITS ---
Providers Date of Admission: 08/02/21 Primary Care Physician: Dr. Oscar Adhikari MD Reason For Visit: LEFT TOTAL SHOULDER Diagnosis Discharge Diagnosis (1) Debility: Status: Acute Code(s): R53.81 - Other malaise (2) Osteoarthritis of left shoulder: Status: Acute Code(s): M19.012 - Primary osteoarthritis, left shoulder (3) Orthostatic hypotension: Status: Acute Code(s): I95.1 - Orthostatic hypotension (4) Fecal impaction of colon: Status: Acute Code(s): K56.41 - Fecal impaction (5) Hypertension: Status: Chronic Code(s): I10 - Essential (primary) hypertension Qualifiers: Hypertension type: primary hypertension Qualified Code(s): I10 - Essential (primary) hypertension (6) Osteoarthritis: Status: Acute Code(s): M19.90 - Unspecified osteoarthritis, unspecified site (7) Asthma: Status: Acute Code(s): J45.909 - Unspecified asthma, uncomplicated (8) Hyperlipidemia: Status: Acute Code(s): E78.5 - Hyperlipidemia, unspecified Qualifiers: Hyperlipidemia type: unspecified Qualified Code(s): E78.5 - Hyperlipidemia, unspecified (9) Diabetes mellitus: Status: Acute Code(s): E11.9 - Type 2 diabetes mellitus without complications Qualifiers: Diabetes mellitus type: type 2 Diabetes mellitus retirement insulin use: without retirement use Diabetes mellitus complication status: without complication Qualified Code(s): E11.9 - Type 2 diabetes mellitus without complications (10) Hypokalemia: Status: Acute Code(s): E87.6 - Hypokalemia (11) Hypothyroidism: Status: Acute Code(s): E03.9 - Hypothyroidism, unspecified (12) Appetite loss: Status: Acute Code(s): R63.0 - Anorexia Medications at Discharge Home Medications metoprolol succinate 100 mg PO DAILY 05/19/20 levothyroxine 125 mcg tablet 125 mcg PO DAILY tab 06/09/20 metformin 500 mg PO DAILY 12/27/20 cetirizine 10 mg PO DAILY PRN 05/29/21 furosemide 40 mg PO DAILY 05/29/21 mirtazapine 15 mg PO QHS 05/29/21 pantoprazole 40 mg PO DAILY 05/29/21 potassium chloride [Klor-Con M20] 20 meq PO DAILY 05/29/21 Breo Ellipta 1 inh INHALATION BID 07/15/21 ferrous sulfate 325 mg PO BID 07/29/21 folic acid 1 mg PO DAILY 07/29/21 acetaminophen 1,000 mg PO Q8 08/02/21 aspirin 81 mg PO 0800,1700 08/02/21 baclofen 10 mg PO TID PRN #0 tab 08/14/21 bisacodyl 10 mg PO DAILY PRN #0 tab 08/14/21 fluticasone propionate 1 spray NASAL BID #0 g 08/14/21 losartan 100 mg PO DAILY #0 tab 08/14/21 ondansetron 8 mg PO TIDAC #0 tab 08/14/21 oxycodone 5 mg PO Q6H PRN PRN 3 Days #12 tab 08/14/21 polyethylene glycol 3350 17 g PO DAILY #0 ea 08/14/21 sennosides-docusate sodium [Stool Softener-Stimulant Laxat] 2 tab PO 0800,1800 #0 tab 08/14/21 Hospital Course Operations - (Reverse left total shoulder replacement.) Procedures None Summary of Care Provided Minutes Spent on Discharge: 35 Hospital Course: 76 year old female with below past medical history hospitalized for reverse left total shoulder replacement 07/29/[address] Lomax, complicated by orthostatic hypotension, fecal impaction of colon, admitted to TCU with debility, here for rehabilitation, strengthening, prior to discharge home alone. 08/06/2021 Resident observed in Hospital for diarrhea, urinary tract infection. Discharge to [facility] 08/20/2021. Physical Exam Const alert and oriented x3 General Appearance: cooperative HEENT normocephalic Eyes PERRL and EOMs intact bilaterally Neck supple, no JVD and no carotid bruits Resp normal respiratory effort, normal air movement and clear to auscultation bilater ally Cardio regular rate and regular rhythm GI normal to inspection, nondistended, normoactive bowel sounds, non-tender and non-distended Extremity normal capillary refill Extremity Narrative: Left upper extremity immobilizer. General Extremity: Negative for edema Skin no rashes or lesions noted General Skin Exam: no breakdown Psych affect normal Appearance: appropriate Weight / BMI Weight Weight: 80.014 kg Body Mass Index (BMI) 29.0 ABG / Lab / Microbiology Data Result Diagrams: 08/10/21 05:12 08/10/21 05:12 Laboratory: Laboratory Results - last 24 hr 08/14/21 06:15: POC Glucose 123 H Microbiology: Microbiology 08/13/21 12:05 Nasal Secretion SARS-CoV-2 Antigen (Rapid) - Final 08/11/21 18:00 Nasal Secretion SARS-CoV-2 Antigen (Rapid) - Final 08/06/21 14:31 Nasal Secretion SARS-CoV-2 Antigen (Rapid) - Final D/C Instructions Discharge Diet: No restrictions Discharge Activity: Return to Normal Activity, May Shower and Use Walker Weight Bearing Status: No weight bearing (Left upper extremity.) Call your doctor if you observe: Fever of 101 or Higher, Inability to urinate, Inability to have a bowel movement, Shortness of breath, Dizziness, Fainting spells, Swelling in the ankles, Chest pain and Uncontrolled pain Additional Instructions: Discharge to [facility] 08/20/2021. Please Follow Up With: Tanner French PA-C Meaningful Use Info Meaningful Use Diagnoses (Choose all that apply): None applicable Discharge Plan Admission Admit Date/Time: 08/02/21 13:42 Primary Reason for Your Visit: Debility. Attending Provider: Jaime Culver Chi Primary Care Provider: Oscar Adhikari Instructions Additional Instructions / Restrictions: Discharge to [facility] 08/20/2021. Discharge Orders/Prescriptions Prescriptions: New oxycodone 5 mg Tablet 5 mg PO Q6H PRN PRN (Reason: Pain Score 6-10) 3 Days Qty: 12 RF: 0 baclofen 10 mg Tablet 10 mg PO TID PRN (Reason: Muscle Spasm) Qty: 0 RF: 0 bisacodyl 5 mg Tablet,Delayed Release (Dr/Ec) 10 mg PO DAILY PRN (Reason: CONSTIPATION) Qty: 0 RF: 0 fluticasone propionate 50 mcg/actuation [place],Suspension 1 spray NASAL BID Qty: 0 RF: 0 losartan 100 mg Tablet 100 mg PO DAILY Qty: 0 RF: 0 ondansetron 4 mg Tablet,Disintegrating 8 mg PO TIDAC Qty: 0 RF: 0 polyethylene glycol 3350 17 gram Powder In Packet 17 g PO DAILY Qty: 0 RF: 0 sennosides-docusate sodium [Stool Softener-Stimulant Laxat] 8.6-50 mg Tablet 2 tab PO 0800,1800 Qty: 0 RF: 0 Continued levothyroxine 125 mcg tablet 125 mcg PO DAILY RF: 0 metoprolol succinate 50 MG tablet extended release 24 hr 100 mg PO DAILY RF: 0 metformin 500 mg Tablet Extended Release 24 Hr 500 mg PO DAILY RF: 0 cetirizine 10 mg tablet 10 mg PO DAILY PRN (Reason: Allergy Symptoms) RF: 0 pantoprazole 40 mg tablet,delayed release (DR/EC) 40 mg PO DAILY RF: 0 mirtazapine 15 mg tablet 15 mg PO QHS RF: 0 potassium chloride [Klor-Con M20] 20 mEq tablet,ER particles/crystals 20 meq PO DAILY RF: 0 furosemide 80 mg tablet 40 mg PO DAILY RF: 0 Breo Ellipta 100-25 mcg/dose Blister With Device 1 inh INHALATION BID RF: 0 ferrous sulfate 325 mg (65 mg iron) Tablet 325 mg PO BID RF: 0 folic acid 1 mg Tablet 1 mg PO DAILY RF: 0 acetaminophen 500 mg tablet 1,000 mg PO Q8 RF: 0 aspirin 81 mg tablet,chewable 81 mg PO 0800,1700 RF: 0 Discontinued albuterol sulfate 1 PUFF inhaler 1 - 2 puff INHALATION Q6H PRN PRN (Reason: Sob &/Or Wheezing) RF: 0 oxycodone 5 mg Tablet 5 mg PO Q6H PRN PRN (Reason: Pain Score 6-10) 7 Days Qty: 60 RF: 0 ondansetron HCl (PF) 4 mg/2 mL Solution 4 mg IV Q6H PRN PRN (Reason: Nausea) Qty: 0 RF: 0 loperamide 2 mg Capsule 2 mg PO Q6H PRN PRN (Reason: Dirrhea) Qty: 0 RF: 0 fluticasone propionate [Flonase] 50 mcg/actuation [place],Suspension 1 spray INTRANASAL DAILY RF: 0 polyethylene glycol 3350 [Miralax] 17 gram Powder In Packet 17 g PO DAILY RF: 0 nystatin 500,000 unit Tablet 500,000 unit PO 4X/DAY RF: 0 baclofen 10 mg Tablet 10 mg PO TID PRN (Reason: muscle spasms) RF: 0 losartan 100 mg Tablet 100 mg PO DAILY RF: 0 cefdinir 300 mg capsule 300 mg PO BID Qty: 10 RF: 0 Referrals / Follow Up: Oscar Adhikari MD [Primary Care Provider] - Disposition Disposition (needs filled in before D/C Order can be placed): NonSkilled NH/Intermed Care
--- NOTE | 2021-08-14 08:15 | PCM.TXEXTCAR ---
Diet 08/12/21 17:07 Diet: Transitional Dietary Modifications:: Lactose Controlled Type of Dietary Supplement:: Ensure Clear Is pt able to select menu?: Yes Diet Comments: 8 oz ES clear w/ meals, ok for pureed chicken noodle soup Routine Orders/Code Status Suppository Type: Dulcolax 10mg Suppository Frequency: Daily PRN Code Status: Full Code Wound(s) left shoulder: Wound Type: Surgical Incision Dressing Change: surgical mepilex 07/31 left thumb: Wound Type: cracked from dryness Rt thumb: Wound Type: scabbed over crack in skin Therapies Weight Bearing: Non weight bearing (Left upper extremity.) Problem/Diagnosis (1) Debility: Status: Acute (2) Osteoarthritis of left shoulder: Status: Acute (3) Orthostatic hypotension: Status: Acute (4) Fecal impaction of colon: Status: Acute (5) Hypertension: Status: Chronic (6) Osteoarthritis: Status: Acute (7) Asthma: Status: Acute (8) Hyperlipidemia: Status: Acute (9) Diabetes mellitus: Status: Acute (10) Hypokalemia: Status: Acute (11) Hypothyroidism: Status: Acute (12) Appetite loss: Status: Acute Allergies/Procedures Done in Hospital Allergies clindamycin Allergy (Mild, Verified 08/06/21 20:20) rash codeine phosphate [From Tylenol-Codeine #3] Adverse Reaction (Severe, Verified 08/06/21 20:20) Nausea Procedures: - (Reverse left total shoulder replacement.) Type of Care/Length of Stay Estimated LOS: More Than 30 Days Type of Care Needed: Intermediate Rehab Potential: Good Prognosis: Good Additional Orders/Day of Discharge Day of Discharge: 08/20/21 Dietary and Speech Recommendations Dietitian Recommendations/Changes: As medically able, rec diet as tolerated to liberal Regular / avoid dairy products and small portions. Will provide ensure clear w/ meals tid Follow Up Care Please Follow Up With: Tanner French PADesmond Discharge Plan Admission Admit Date/Time: 08/02/21 13:42 Primary Reason for Your Visit: Debility. Attending Provider: Jaime Culver Chi Primary Care Provider: Oscar Adhikari Instructions Additional Instructions / Restrictions: Discharge to [facility] 08/20/2021. Discharge Orders/Prescriptions Prescriptions: New oxycodone 5 mg Tablet 5 mg PO Q6H PRN PRN (Reason: Pain Score 6-10) 3 Days Qty: 12 RF: 0 baclofen 10 mg Tablet 10 mg PO TID PRN (Reason: Muscle Spasm) Qty: 0 RF: 0 bisacodyl 5 mg Tablet,Delayed Release (Dr/Ec) 10 mg PO DAILY PRN (Reason: CONSTIPATION) Qty: 0 RF: 0 fluticasone propionate 50 mcg/actuation [place],Suspension 1 spray NASAL BID Qty: 0 RF: 0 losartan 100 mg Tablet 100 mg PO DAILY Qty: 0 RF: 0 ondansetron 4 mg Tablet,Disintegrating 8 mg PO TIDAC Qty: 0 RF: 0 polyethylene glycol 3350 17 gram Powder In Packet 17 g PO DAILY Qty: 0 RF: 0 sennosides-docusate sodium [Stool Softener-Stimulant Laxat] 8.6-50 mg Tablet 2 tab PO 0800,1800 Qty: 0 RF: 0 Continued levothyroxine 125 mcg tablet 125 mcg PO DAILY RF: 0 metoprolol succinate 50 MG tablet extended release 24 hr 100 mg PO DAILY RF: 0 metformin 500 mg Tablet Extended Release 24 Hr 500 mg PO DAILY RF: 0 cetirizine 10 mg tablet 10 mg PO DAILY PRN (Reason: Allergy Symptoms) RF: 0 pantoprazole 40 mg tablet,delayed release (DR/EC) 40 mg PO DAILY RF: 0 mirtazapine 15 mg tablet 15 mg PO QHS RF: 0 potassium chloride [Klor-Con M20] 20 mEq tablet,ER particles/crystals 20 meq PO DAILY RF: 0 furosemide 80 mg tablet 40 mg PO DAILY RF: 0 Breo Ellipta 100-25 mcg/dose Blister With Device 1 inh INHALATION BID RF: 0 ferrous sulfate 325 mg (65 mg iron) Tablet 325 mg PO BID RF: 0 folic acid 1 mg Tablet 1 mg PO DAILY RF: 0 acetaminophen 500 mg tablet 1,000 mg PO Q8 RF: 0 aspirin 81 mg tablet,chewable 81 mg PO 0800,1700 RF: 0 Discontinued albuterol sulfate 1 PUFF inhaler 1 - 2 puff INHALATION Q6H PRN PRN (Reason: Sob &/Or Wheezing) RF: 0 oxycodone 5 mg Tablet 5 mg PO Q6H PRN PRN (Reason: Pain Score 6-10) 7 Days Qty: 60 RF: 0 ondansetron HCl (PF) 4 mg/2 mL Solution 4 mg IV Q6H PRN PRN (Reason: Nausea) Qty: 0 RF: 0 loperamide 2 mg Capsule 2 mg PO Q6H PRN PRN (Reason: Dirrhea) Qty: 0 RF: 0 fluticasone propionate [Flonase] 50 mcg/actuation [place],Suspension 1 spray INTRANASAL DAILY RF: 0 polyethylene glycol 3350 [Miralax] 17 gram Powder In Packet 17 g PO DAILY RF: 0 nystatin 500,000 unit Tablet 500,000 unit PO 4X/DAY RF: 0 baclofen 10 mg Tablet 10 mg PO TID PRN (Reason: muscle spasms) RF: 0 losartan 100 mg Tablet 100 mg PO DAILY RF: 0 cefdinir 300 mg capsule 300 mg PO BID Qty: 10 RF: 0 Referrals / Follow Up: Oscar Adhikari MD [Primary Care Provider] - Disposition Disposition (needs filled in before D/C Order can be placed): NonSkilled NH/Intermed Care
[2021-08-14] MEDS: Potassium Chloride Oral Tablet 20 MEQ PO (08:28)
[2021-08-14] MEDS: Ferrous Sulfate 325 MG Tablet PO ×2 (08:28→17:24)
[2021-08-14] MEDS: Folic Acid 1 MG Tablet PO (08:28)
[2021-08-14] MEDS: Aspirin 81 MG TAB.CHEW PO ×2 (08:28→17:24)
[2021-08-14] MEDS: metFORMIN (XR) 500 MG Tablet PO (08:28)
[2021-08-14] MEDS: Fluticasone/Salmeterol 232-14 Inhaler 1 PUFF INHALATION ×2 (08:29→17:25)
[2021-08-14 09:57] VITALS: BP 131/61; PULSE 65; RESP 16; TEMP 36.4; O2SAT 96
[2021-08-14 10:00] VITALS: PULSE 65; RESP 16
--- NOTE | 2021-08-14 13:50 | RAD_ITS ---
STUDY: X-RAY - ABDOMEN/PELVIS REASON FOR EXAM: Female, 76 years old. Nausea/vomiting TECHNIQUE: AP supine and upright views of the abdomen and pelvis. COMPARISON: Comparison is made with prior study dated 08/06/2021. FINDINGS: Stable elevation of the right hemidiaphragm. There is an unremarkable bowel gas pattern. The visualized liver, spleen and kidneys are grossly normal in size and morphology. Normal soft tissue structures. There are diffuse degenerative changes of the visualized lumbar spine. The patient is status post right total hip replacement. A left-sided TENS unit is seen. The tip of the electrodes is at the T8 level. RAD/Abd Decub and/or Erect(Portabl IMPRESSION: Nonspecific gas bowel pattern. Electronically Signed: Gonzalo Jordan MD at 15:32 EST ,
[2021-08-14] MEDS: 0.9% Saline Lock 10 ML Syringe IV (14:49)
[2021-08-14] MEDS: 0.9% Normal Saline 1,000 ML 75 ML IV (14:49)
[2021-08-14 14:53] LABS: Bacteria 0 SEEN /hpf (None Seen); Mucous, Urine 0 SEEN /hpf (<or=2+); Red Blood Cells-Urine 0 SEEN /hpf (0-5); Squamous Epithelial Cells - UA 0 SEEN /hpf (5-10); White Blood Cells 0 SEEN /hpf (0-5)
[2021-08-14 14:57] LABS: Color, Urine Yellow (Yellow); Glucose, Dipstick Normal (Normal); Ketone-Dipstick Negative (Negative); Leukocyte Esterase-Dipstick Negative /ul (Negative); Nitrite-Dipstick Negative (Negative); Occult Blood-Urine Negative /ul (Negative); Protein-Dipstick Negative (Negative); Urine Bilirubin Dipstick Negative (Negative); Urine Clarity Clear (Clear); Urine Urobilinogen Normal (Normal)
[2021-08-14] MEDS: Mirtazapine 15 MG Tablet PO (19:44)
[2021-08-14] MEDS: oxyCODONE 5 MG Tablet PO (21:33)
[2021-08-15 06:25] LABS: Bedside Glucose 105 mg/dL (70-110)
[2021-08-15] MEDS: 0.9% Normal Saline 1,000 ML 75 ML IV ×2 (06:28→16:59)
[2021-08-15 06:29] VITALS: BP 140/60; PULSE 61
[2021-08-15] MEDS: Furosemide 40 MG Tablet PO (06:29)
[2021-08-15] MEDS: Acetaminophen 500 MG Tablet 1000 MG PO ×3 (06:29→21:10)
[2021-08-15] MEDS: Metoprolol(XL)Succ 100 MG Tablet PO (06:29)
[2021-08-15] MEDS: Losartan Potassium 100 MG Tablet PO (06:29)
[2021-08-15] MEDS: Pantoprazole Sodium 40 MG Tablet PO (06:30)
[2021-08-15] MEDS: NYSTATIN 500,000 UNIT/5 ML UDC 500000 UNIT PO ×4 (06:30→21:10)
[2021-08-15] MEDS: Polyethylene Glycol 3350 17 GM PACKET PO (06:30)
[2021-08-15] MEDS: Levothyroxine 125 MCG Tablet PO (06:30)
[2021-08-15] MEDS: Ondansetron ODT 4 MG Tablet 8 MG PO ×3 (06:31→16:51)
[2021-08-15] MEDS: Fluticasone 0.05% 1 SPRAY NASAL.SRY NASAL ×2 (06:31→16:55)
[2021-08-15] MEDS: Aspirin 81 MG TAB.CHEW PO ×2 (08:40→16:52)
[2021-08-15] MEDS: Folic Acid 1 MG Tablet PO (08:40)
[2021-08-15] MEDS: Ferrous Sulfate 325 MG Tablet PO ×2 (08:40→16:52)
[2021-08-15] MEDS: metFORMIN (XR) 500 MG Tablet PO (08:41)
[2021-08-15] MEDS: Potassium Chloride Oral Tablet 20 MEQ PO (08:41)
[2021-08-15] MEDS: Senna/Docusate Sodium 1 Tablet 2 TABLET PO (08:42)
[2021-08-15] MEDS: Fluticasone/Salmeterol 232-14 Inhaler 1 PUFF INHALATION ×2 (08:44→16:56)
[2021-08-15 14:00] VITALS: BP 139/63; PULSE 66; RESP 16; TEMP 36.2; O2SAT 98
[2021-08-15] MEDS: Loratadine 10 MG Tablet PO (16:59)
[2021-08-15] MEDS: oxyCODONE 5 MG Tablet PO (19:35)
[2021-08-15 19:42] VITALS: PULSE 63; RESP 14; O2SAT 96
[2021-08-15] MEDS: Baclofen 10 MG Tablet PO (21:10)
[2021-08-15] MEDS: Mirtazapine 15 MG Tablet PO (21:10)
[2021-08-16 06:41] LABS: Bedside Glucose 114 mg/dL (70-110)
[2021-08-16] MEDS: 0.9% Normal Saline 1,000 ML 75 ML IV ×2 (06:42→18:45)
[2021-08-16] MEDS: Ondansetron ODT 4 MG Tablet 8 MG PO ×3 (06:43→16:55)
[2021-08-16] MEDS: Losartan Potassium 100 MG Tablet PO (06:48)
[2021-08-16] MEDS: Pantoprazole Sodium 40 MG Tablet PO (06:48)
[2021-08-16] MEDS: Acetaminophen 500 MG Tablet 1000 MG PO ×3 (06:48→21:46)
[2021-08-16] MEDS: Levothyroxine 125 MCG Tablet PO (06:48)
[2021-08-16] MEDS: Furosemide 40 MG Tablet PO (06:48)
[2021-08-16 06:49] VITALS: BP 186/70; PULSE 66
[2021-08-16] MEDS: Metoprolol(XL)Succ 100 MG Tablet PO (06:49)
[2021-08-16] MEDS: Fluticasone 0.05% 1 SPRAY NASAL.SRY NASAL ×2 (06:51→16:57)
[2021-08-16] MEDS: Fluticasone/Salmeterol 232-14 Inhaler 1 PUFF INHALATION ×2 (08:38→16:57)
[2021-08-16] MEDS: Aspirin 81 MG TAB.CHEW PO ×2 (08:39→16:56)
[2021-08-16] MEDS: Folic Acid 1 MG Tablet PO (08:40)
[2021-08-16] MEDS: metFORMIN (XR) 500 MG Tablet PO (08:40)
[2021-08-16] MEDS: Ferrous Sulfate 325 MG Tablet PO ×2 (08:40→16:57)
[2021-08-16] MEDS: Potassium Chloride Oral Tablet 20 MEQ PO (08:41)
[2021-08-16 14:00] VITALS: BP 115/55; PULSE 68; RESP 16; TEMP 36.2; O2SAT 96
[2021-08-16] MEDS: oxyCODONE 5 MG Tablet PO (18:48)
[2021-08-16] MEDS: Mirtazapine 15 MG Tablet PO (21:46)
[2021-08-16] MEDS: Baclofen 10 MG Tablet PO (21:46)
[2021-08-16 22:00] VITALS: RESP 16
[2021-08-17] MEDS: Ondansetron ODT 4 MG Tablet 8 MG PO ×3 (05:31→17:56)
[2021-08-17] MEDS: Fluticasone 0.05% 1 SPRAY NASAL.SRY NASAL ×2 (05:31→17:58)
[2021-08-17 05:33] VITALS: BP 172/56; PULSE 60
[2021-08-17] MEDS: Metoprolol(XL)Succ 100 MG Tablet PO (05:33)
[2021-08-17] MEDS: Furosemide 40 MG Tablet PO (05:33)
[2021-08-17] MEDS: Acetaminophen 500 MG Tablet 1000 MG PO ×3 (05:33→21:38)
[2021-08-17] MEDS: Pantoprazole Sodium 40 MG Tablet PO (05:33)
[2021-08-17] MEDS: Losartan Potassium 100 MG Tablet PO (05:34)
[2021-08-17] MEDS: Levothyroxine 125 MCG Tablet PO (05:34)
[2021-08-17 06:04] LABS: Absolute Lymphocyte Count 1.84 X10^3/uL (0.83-4.51); Absolute Neutrophil Count 5.2 X10^3/uL (2.0-7.7); Basophil# 0.08 X10^3/uL; Basophil% 0.9 % (0-1); Eosinophil# 0.41 X10^3/uL; Eosinophils% 4.9 % (0-5); Hematocrit 32.1 % (37-47); Hemoglobin 10.5 g/dL (12.0-15.0); Lymphocyte # 1.84 X10^3/ul (0.83-4.51); Lymphocyte % 21.8 % (19-41); Mean Corp Hgb Conc 32.7 g/dL (32-36); Mean Corpuscular Hgb 32.8 pg (27.0-32.0); Mean Corpuscular Volume 100.3 fL (81-99); Mean Platelet Vol. 10.6 fl (6.2-12.0); Monocyte# 0.78 X10^3/uL; Monocyte% 9.2 % (0-10); NRBC Flagged by Analyzer 0 % (0-5); Neutrophil % 61.5 % (47-70); Platelet Count 458 K/mm3 (150-450); RBC Distribution Width CV 13.5 % (11.6-14.6); RBC Distribution Width SD 50.1 fl (35.1-43.9); White Blood Count 8.5 K/mm3 (4.4-11.0)
[2021-08-17 06:13] LABS: Anion Gap 6 (5-15); BUN 12 mg/dL (7-18); Calcium,Total 8.8 mg/dL (8.5-10.1); Chloride 101 mmol/L (98-107); Creatinine, Serum 0.86 mg/dL (0.55-1.02); EST Glomerular Filtration Rate 68 mL/min (>60); Est Glom Filt Rate - Afr Amer 83 mL/min (>60); Estimated Creatinine Clearance 46.56 ml/min; Glucose 102 mg/dL (74-106); Potassium 4.4 mmol/L (3.5-5.1); Sodium Level 130 mmol/L (136-145)
[2021-08-17 06:31] LABS: Bedside Glucose 121 mg/dL (70-110)
[2021-08-17] MEDS: Potassium Chloride Oral Tablet 20 MEQ PO (08:03)
[2021-08-17] MEDS: Aspirin 81 MG TAB.CHEW PO ×2 (08:04→17:58)
[2021-08-17] MEDS: metFORMIN (XR) 500 MG Tablet PO (08:04)
[2021-08-17] MEDS: Folic Acid 1 MG Tablet PO (08:04)
[2021-08-17] MEDS: Ferrous Sulfate 325 MG Tablet PO ×2 (08:04→17:58)
[2021-08-17] MEDS: Polyethylene Glycol 3350 17 GM PACKET PO (08:05)
[2021-08-17] MEDS: Fluticasone/Salmeterol 232-14 Inhaler 1 PUFF INHALATION ×2 (08:05→17:59)
[2021-08-17 14:00] VITALS: BP 157/75; PULSE 71; RESP 16; TEMP 36.5; O2SAT 98
[2021-08-17] MEDS: Baclofen 10 MG Tablet PO (16:19)
[2021-08-17] MEDS: oxyCODONE 5 MG Tablet PO (21:38)
[2021-08-17] MEDS: Mirtazapine 15 MG Tablet PO (21:39)
[2021-08-18] MEDS: Fluticasone 0.05% 1 SPRAY NASAL.SRY NASAL ×2 (05:35→18:02)
[2021-08-18] MEDS: Losartan Potassium 100 MG Tablet PO (05:36)
[2021-08-18] MEDS: Furosemide 40 MG Tablet PO (05:36)
[2021-08-18] MEDS: Ondansetron ODT 4 MG Tablet 8 MG PO ×3 (05:36→18:01)
[2021-08-18] MEDS: Acetaminophen 500 MG Tablet 1000 MG PO ×3 (05:36→20:20)
[2021-08-18 05:37] VITALS: BP 134/58; PULSE 66
[2021-08-18] MEDS: Pantoprazole Sodium 40 MG Tablet PO (05:37)
[2021-08-18] MEDS: Metoprolol(XL)Succ 100 MG Tablet PO (05:37)
[2021-08-18] MEDS: Levothyroxine 125 MCG Tablet PO (05:37)
[2021-08-18 06:26] LABS: Bedside Glucose 106 mg/dL (70-110)
[2021-08-18] MEDS: Ferrous Sulfate 325 MG Tablet PO ×2 (08:30→18:01)
[2021-08-18] MEDS: Folic Acid 1 MG Tablet PO (08:30)
[2021-08-18] MEDS: metFORMIN (XR) 500 MG Tablet PO (08:30)
[2021-08-18] MEDS: Fluticasone/Salmeterol 232-14 Inhaler 1 PUFF INHALATION ×2 (08:30→18:02)
[2021-08-18] MEDS: Aspirin 81 MG TAB.CHEW PO ×2 (08:30→18:01)
[2021-08-18] MEDS: Potassium Chloride Oral Tablet 20 MEQ PO (08:30)
[2021-08-18 13:40] VITALS: BP 133/54; PULSE 67; RESP 18; TEMP 36.7; O2SAT 96
[2021-08-18] MEDS: 0.9% Saline Lock 10 ML Syringe IV (18:03)
[2021-08-18] MEDS: Mirtazapine 15 MG Tablet PO (20:20)
[2021-08-18] MEDS: oxyCODONE 5 MG Tablet PO (20:21)
[2021-08-18 22:42] VITALS: PULSE 65; RESP 14
[2021-08-19] MEDS: Fluticasone 0.05% 1 SPRAY NASAL.SRY NASAL ×2 (05:15→17:20)
[2021-08-19] MEDS: Ondansetron ODT 4 MG Tablet 8 MG PO ×3 (05:16→17:26)
[2021-08-19] MEDS: Acetaminophen 500 MG Tablet 1000 MG PO ×3 (05:17→22:05)
[2021-08-19 05:18] VITALS: BP 153/68; PULSE 61
[2021-08-19] MEDS: Pantoprazole Sodium 40 MG Tablet PO (05:18)
[2021-08-19] MEDS: Losartan Potassium 100 MG Tablet PO (05:18)
[2021-08-19] MEDS: Metoprolol(XL)Succ 100 MG Tablet PO (05:18)
[2021-08-19] MEDS: Levothyroxine 125 MCG Tablet PO (05:18)
[2021-08-19] MEDS: Furosemide 40 MG Tablet PO (05:18)
[2021-08-19 06:31] LABS: Bedside Glucose 113 mg/dL (70-110)
[2021-08-19] MEDS: Polyethylene Glycol 3350 17 GM PACKET PO (08:14)
[2021-08-19] MEDS: Potassium Chloride Oral Tablet 20 MEQ PO (08:15)
[2021-08-19] MEDS: Aspirin 81 MG TAB.CHEW PO ×2 (08:15→17:26)
[2021-08-19] MEDS: Folic Acid 1 MG Tablet PO (08:15)
[2021-08-19] MEDS: Ferrous Sulfate 325 MG Tablet PO ×2 (08:16→17:26)
[2021-08-19] MEDS: Fluticasone/Salmeterol 232-14 Inhaler 1 PUFF INHALATION ×2 (08:16→17:27)
[2021-08-19] MEDS: metFORMIN (XR) 500 MG Tablet PO (08:16)
--- NOTE | 2021-08-19 09:42 | CASEMGMT ---
Social Work PHQ-9(0) and BIMS(15) completed this date. ZULLY Wilson
--- NOTE | 2021-08-19 11:29 | CASEMGMT ---
Addendum entered by Patience Messer 08/19/21 11:36: Canceled transport. Original Note: Social Work Pt requesting to see this worker. Spoke with pt and she is now requesting to DC home vs SNF. Inquired about help at home and safety concerns. Pt states she can do all of her tasks on her own despite [facility] LUE and dtr can help as needed. IDT agreeable to home. Updated Filomena Pointmarisabel. Referred to [facility] PT/OT/SW/GONZ[facility]ES. No DME needs. Dtr to transport pt. Updated plan: DC home alone 08/20, [facility] PT/OT/SW/[facility]ONZALES. Patience Messer, [employer]
[2021-08-19 15:37] VITALS: BP 155/59; PULSE 68; RESP 16; TEMP 37; O2SAT 95
[2021-08-19] MEDS: oxyCODONE 5 MG Tablet PO (20:00)
[2021-08-19] MEDS: Mirtazapine 15 MG Tablet PO (22:05)
[2021-08-20] MEDS: Fluticasone 0.05% 1 SPRAY NASAL.SRY NASAL (06:18)
[2021-08-20] MEDS: Ondansetron ODT 4 MG Tablet 8 MG PO ×2 (06:20→11:27)
[2021-08-20] MEDS: Furosemide 40 MG Tablet PO (06:20)
[2021-08-20] MEDS: Levothyroxine 125 MCG Tablet PO (06:20)
[2021-08-20] MEDS: Pantoprazole Sodium 40 MG Tablet PO (06:20)
[2021-08-20] MEDS: Polyethylene Glycol 3350 17 GM PACKET PO (06:20)
[2021-08-20] MEDS: Losartan Potassium 100 MG Tablet PO (06:20)
[2021-08-20] MEDS: Acetaminophen 500 MG Tablet 1000 MG PO ×2 (06:20→13:06)
[2021-08-20 06:26] VITALS: BP 160/80; PULSE 66
[2021-08-20] MEDS: Metoprolol(XL)Succ 100 MG Tablet PO (06:26)
[2021-08-20 06:40] LABS: Bedside Glucose 114 mg/dL (70-110)
[2021-08-20] MEDS: Fluticasone/Salmeterol 232-14 Inhaler 1 PUFF INHALATION (07:54)
[2021-08-20] MEDS: Potassium Chloride Oral Tablet 20 MEQ PO (07:55)
[2021-08-20] MEDS: Aspirin 81 MG TAB.CHEW PO (07:55)
[2021-08-20] MEDS: metFORMIN (XR) 500 MG Tablet PO (07:55)
[2021-08-20] MEDS: Ferrous Sulfate 325 MG Tablet PO (07:55)
[2021-08-20] MEDS: Folic Acid 1 MG Tablet PO (07:55)
[2021-08-20 13:42] VITALS: BP 150/73; PULSE 71; RESP 16; TEMP 36; O2SAT 97
[2021-08-20 15:12] VITALS: BP 162/79; PULSE 71; RESP 18; TEMP 36; O2SAT 97
--- NOTE | 2021-08-20 15:44 | NURSING ---
pt aware that dr did not want her to have prescription for losartan, baclofen or zofran. aware to fu with pcp
== END 2021-08-20 15:25 | disposition home health service (06) | DRG 561 ==
PROVIDERS: Admitting Provider Family Medicine Geriatric Medicine; PCP Family Medicine; Visit Provider Family Medicine Geriatric Medicine
DX: Z47.1 Aftercare following joint replacement surgery (principal); D50.9 Iron deficiency anemia, unspecified; E11.9 Type 2 diabetes mellitus without complications; E03.9 Hypothyroidism, unspecified; E78.5 Hyperlipidemia, unspecified; K21.9 Gastro-esophageal reflux disease without esophagitis; J45.909 Unspecified asthma, uncomplicated; I10 Essential (primary) hypertension; M19.012 Primary osteoarthritis, left shoulder; F41.9 Anxiety disorder, unspecified; E87.6 Hypokalemia; G89.29 Other chronic pain; Z79.84 Long term (current) use of oral hypoglycemic drugs; Z96.612 Presence of left artificial shoulder joint; Z79.899 Other long term (current) drug therapy; Z79.82 Long term (current) use of aspirin
CPT/HCPCS: 36415; 74018; 74019; 80048; 81001; 82962; 85025; 87086; 87426; 94640; 97110; 97116; 97162; 97166; 97530; 97535; 97802; J7030; A4216

== ENCOUNTER 2021-08-06 20:16 | Observation (INO) | payer MEDICARE, SELFPAY ==
[2021-08-06 20:17] VITALS: BP 159/70; PULSE 63; RESP 18; TEMP 36.3; O2SAT 99; BMI 31.1
--- NOTE | 2021-08-06 20:53 | ED.VIS.GI ---
HPI HPI - GI History of Present Illness Chief Complaint: Abd Pain Informant: patient Narrative Narrative: Sent down from TCU for mid abdominal pain after eating dinner. Vomited x2 no hematemesis. Been having diarrhea for 4 days 3 to 4-day had 3 after dinner today nonbloody. History of appendectomy partial hysterectomy in the past. Status post left reverse shoulder replacement 8 days ago recovering at TCU. She is on oxycodone. Denies fever or urine symptoms. [facility] Medical History Anxiety Asthma Asthma B12 deficiency Bleeding tendency Cataracts, bilateral Chronic back pain Chronic pain Diabetes Easy bruising GERD (gastroesophageal reflux disease) High cholesterol History of colon polyps History of echocardiogram History of edema History of rheumatic fever History of stress test HLD (hyperlipidemia) HTN (hypertension) Hyperlipidemia Injury of head and neck Leg cramps Localized edema Muscle tenderness Non-smoker Post-menopausal RLS (restless legs syndrome) Shortness of breath on exertion Thyroid disease Wears dentures Wears glasses Home Medications metoprolol succinate 50 mg PO DAILY 05/19/20 [History Last Taken 07/29/21] albuterol sulfate 1 - 2 puff INHALATION Q6H PRN PRN 06/02/20 [History Last Taken 12/26/20] levothyroxine 125 mcg tablet 125 mcg PO DAILY tab 06/09/20 [History Last Taken 07/29/21] metformin 500 mg PO DAILY 12/27/20 [History Last Taken 01/19/21] cetirizine 10 mg PO DAILY PRN 05/29/21 [History Last Taken Unknown] furosemide 40 mg PO DAILY 05/29/21 [History Last Taken Unknown] mirtazapine 15 mg PO QHS 05/29/21 [History Last Taken Unknown] olmesartan 20 mg PO DAILY 05/29/21 [History Last Taken 07/29/21] pantoprazole 40 mg PO DAILY 05/29/21 [History Last Taken 07/29/21] potassium chloride [Klor-Con M20] 20 meq PO DAILY 05/29/21 [History Last Taken Unknown] Breo Ellipta 1 inh INHALATION DAILY 07/15/21 [History Last Taken Unknown] ferrous sulfate 325 mg PO BID 07/29/21 [History Last Taken Unknown] folic acid 1 mg PO DAILY 07/29/21 [History Last Taken Unknown] ondansetron HCl (PF) 4 mg IV Q6H PRN PRN #0 ml 08/01/21 [Rx Last Taken Unknown] oxycodone 5 mg PO Q6H PRN PRN 7 Days #60 tab 08/01/21 [Rx Last Taken Unknown] acetaminophen 1,000 mg PO Q8 08/02/21 [History Last Taken Unknown] aspirin 81 mg PO 0800,1700 08/02/21 [History Last Taken Unknown] loperamide 2 mg PO Q6H PRN PRN #0 cap 08/02/21 [Rx Last Taken Unknown] nut.tx.comp. immune systm,reg [Ensure Surgery] 237 ml PO TIDCM 08/02/21 [History Last Taken Unknown] Allergy/AdvReac Type Severity Reaction Status Date / Time clindamycin Allergy Mild rash Verified 08/06/21 20:20 codeine phosphate AdvReac Severe Nausea Verified 08/06/21 20:20 [From Tylenol-Codeine #3] Family History Mother Heart valve disorder Hypertension Heart disease Father Pneumococcal pneumonia CVA (cerebral vascular accident) Heart disease Myocardial infarction Surgical History History of appendectomy History of bilateral carpal tunnel release History of cardiac catheterization History of carpal tunnel release History of colonoscopy (~2012) History of hysterectomy History of loop recorder history of pain stimulator History of total right hip replacement Hx of decompressive lumbar laminectomy Hx of lumbar discectomy Hx of tonsillectomy Hx of total hip arthroplasty Status post reverse total arthroplasty of left shoulder Social History household members: none housing: apartment number of children: 2 current occupational status: retired current occupational exposures/hazards: No pets and animals: No leisure activities: exercise and volunteer work Smoking Status: Never smoker ROS ROS ED Constitutional Constitutional ED: Denies chills, fever(s) or sweats Eyes Eyes: Denies change in vision ENT ENT ED: Denies dysphagia or sore throat Cardiovascular Cardiovascular: Denies chest pain, leg edema, palpitations or racing heartbeat Respiratory/Chest Respiratory/Chest: Denies cough, dyspnea or dyspnea on exertion Gastrointestinal Gastrointestinal: Reports abdominal pain, diarrhea, nausea and vomiting Genitourinary Genitourinary ED: Denies dysuria, hematuria or urinary frequency Musculoskeletal Musculoskeletal: Denies back pain, extremity pain or neck pain Integumentary Denies rash or wounds Neurologic Neurologic: Denies headache(s), paresthesias or weakness EXAM Physical Exam Const Vital Signs: 08/06/21 20:17 Temperature 97.3 F L Temperature Source Oral Pulse Rate 63 Respiratory Rate 18 Blood Pressure 159/70 H Blood Pressure Mean 99 Pulse Ox 99 Oxygen Delivery Method Room Air Positive well nourished and well developed General Appearance ED: well developed and NAD HEENT Reports moist mucous membranes normocephalic and atraumatic Eyes PERRL, EOMs intact bilaterally and conjunctivae normal General Eye ED: Yes normal appearance of both eyes Neck no lymphadenopathy and supple General: Negative for tenderness Chest Wall Chest: Negative for tenderness Resp normal respiratory effort and normal air movement Effort and Inspection: symmetric chest movement; Negative for respiratory distress Cardio regular rate, regular rhythm and no murmurs Peripheral Pulses: pulses 2+ throughout GI normal to inspection, nondistended, normoactive bowel sounds GI Narrative: Mid abdominal tenderness without guarding or rebound. Negative Riley's McBurney's tenderness. Auscultation: normoactive bowel sounds Palpation: Negative for guarding or rebound tenderness present Back/Spine no CVA tenderness and no thoracic nor lumbar tenderness Extremity normal to inspection General Extremety ED: Negative for edema or tenderness General Extremity: Negative for edema Neuro oriented x3 and no sensory deficits noted Sensorium / Orientation: awake and alert Skin no rashes or lesions noted and no wounds MDM MDM MDM Narrative Medical decision making narrative: Patient tender mid abdomen however no guarding or rebound. Presents with acute vomiting she has had diarrhea for the last 4 days. Abdominal labs were ordered, she given IV fluids Zofran Pepcid on reevaluation clinically was improving. With lab work white count returned at 17.9 normal lipase and liver enzymes. Creatinine 1.13. Sodium 126. Potassium 4.2. CT scan ordered due to the leukocytosis returning no acute process in the abdomen pelvis. With her vomiting possibly secondary to her hyponatremia I do feel she will benefit from hospitalization. I did add a urine test to the leukocytosis if she is not symptomatic. Chest x-ray obtained 1 view reviewed by myself shows no acute process. I spoke with hospitalist Dr. Stewart for admission. I did add a Covid test due to her vomiting and diarrhea. Lab Data Attestation: I reviewed the patient's lab results. Labs: Laboratory Results - last 24 hr 08/06/21 08/06/21 20:57 20:57 WBC 17.9 H RBC 3.46 L Hgb 11.7 L Hct 34.4 L MCV 99.4 H MCH 33.8 H MCHC 34.0 D RDW Std Deviation 49.1 H RDW Coeff of Taran 13.5 Plt Count 389 MPV 10.7 Neut % (Auto) Not Reportable Absolute Neuts (auto) 13.6 H Absolute Lymphs (auto) 1.79 Total Counted 100 Neutrophils % (Manual) 70 Band Neutrophils % 6 H Lymphocytes % (Manual) 10 L Monocytes % (Manual) 6 Eosinophils % (Manual) 4 Metamyelocytes % 2 H Myelocytes % 2 H Diff Path Review May foll Platelet Estimate ADEQUATE RBC Morphology N CHROM Anisocytosis 1+ Macrocytosis 1+ Sodium 126 L Potassium 4.2 Chloride 93 L Carbon Dioxide 23.0 Anion Gap 10 BUN 22 H Creatinine 1.13 H Estim Creat Clear Calc 35.43 Est GFR (MDRD) Af Amer 60 Est GFR (MDRD) Non-Af 50 L BUN/Creatinine Ratio 19.5 Glucose 207 H Calcium 8.6 Total Bilirubin 0.20 AST 25 ALT 34 Alkaline Phosphatase 117 Total Protein 6.8 Albumin 2.5 L Globulin 4.3 H Albumin/Globulin Ratio 0.6 L Lipase 96 Radiography Diagnostic Testing: Clinical Impression(s) from Imaging Studies Abdomen/Pelvis CT 08/06/21 21:42 IMPRESSION: No acute findings. Diverticulosis, no acute diverticulitis. Electronically Signed: Mindy Szymanski MD at 22:31 EST Reading Location ID and State: Vikash Archer MD Tel , Service support , Chest X-Ray 08/06/21 22:50 IMPRESSION: No acute findings. Electronically Signed: Mindy Szymanski MD at 23:23 EST Reading Location ID and State: Vikash Archer MD Tel , Service support , Discharge Plan Dx/Rx/DC Orders Clinical Impression: Acute hyponatremia, Vomiting and diarrhea, Abdominal pain Disposition Disposition: Acute Care Hospital [facility] Discharge Date/Time: 08/06/21 23:56
[2021-08-06] MEDS: 0.9% Normal Saline 1,000 ML 1000 ML IV (21:02)
[2021-08-06] MEDS: Ondansetron 4 MG/2 ML Vial IV (21:02)
[2021-08-06 21:07] LABS: Hematocrit 34.4 % (37-47); Hemoglobin 11.7 g/dL (12.0-15.0); Mean Corpuscular Hgb 33.8 pg (27.0-32.0); Mean Corpuscular Volume 99.4 fL (81-99); Mean Platelet Vol. 10.7 fl (6.2-12.0); POSITIVE COUNT YES; POSITIVE MORPHOLOGY YES; Platelet Count 389 K/mm3 (150-450); RBC Distribution Width CV 13.5 % (11.6-14.6); RBC Distribution Width SD 49.1 fl (35.1-43.9); Red Blood Count 3.46 M/mm3 (4.2-5.4); White Blood Count 17.9 K/mm3 (4.4-11.0)
[2021-08-06 21:12] LABS: Differential Indicated MANUAL DIFF
[2021-08-06] MEDS: Famotidine 200 MG/20 ML MDV 20 MG in 0.9% Normal Saline (Pres. free 8 ML 300 MG IV (21:19)
[2021-08-06 21:42] LABS: Eosinophil 4 % (0-5); Lymphocyte 10 % (19-41); Metamyelocyte 2 % (0-1); Monocyte 6 % (0-10); Myelocyte 2 % (0-0); Neutrophil-Band 6 % (0-5); Neutrophil-Segmented 70 % (47-70); Total Cells Counted 100 (MANUAL DIFF)
--- NOTE | 2021-08-06 21:42 | CT_ITS ---
EXAM: CT ABDOMEN AND PELVIS WITHOUT INTRAVENOUS CONTRAST CLINICAL INDICATION: abd pain TECHNIQUE: Helically acquired images were obtained of the abdomen and pelvis without intravenous contrast. This CT exam was performed using one or more of the following dose reduction techniques: automated exposure control, adjustment of the mA and/or kV according to patient size, and/or use of iterative reconstruction technique. This report was created using [employer] report generation technology. COMPARISON: 10/08/2020. FINDINGS: LOWER THORAX: Bibasilar atelectasis. No cardiomegaly. No significant pericardial effusion. ABDOMEN: LIVER: Unremarkable. Homogeneous. GALLBLADDER AND BILE DUCTS: Unremarkable. No calcified gallstones. No gallbladder distention or wall edema. No intra- or extrahepatic biliary ductal dilation. PANCREAS: Unremarkable. No focal cystic mass. SPLEEN: Unremarkable. Normal size without focal cystic or solid mass. ADRENALS: Unremarkable. No nodules. KIDNEYS AND URETERS: Unremarkable. Normal renal size and position. No hydronephrosis. STOMACH AND BOWEL: Diverticulosis, no acute diverticulitis. No stomach or bowel distention. PELVIS: APPENDIX: No evidence of acute appendicitis. BLADDER: Unremarkable. REPRODUCTIVE: Unremarkable as visualized. No mass. ABDOMEN and PELVIS: INTRAPERITONEAL SPACE: Unremarkable. No ascites or other fluid collection. No free air. BONES/JOINTS: Degenerative changes of the lumbar spine. Right hip replacement. SOFT TISSUES: Unremarkable. No discrete abdominal or pelvic wall hernia. VASCULATURE: Unremarkable. Abdominal aorta is normal in caliber. LYMPH NODES: Unremarkable. No enlarged lymph nodes. CT/Abdomen/Pelvis without Cont IMPRESSION: No acute findings. Diverticulosis, no acute diverticulitis. Electronically Signed: Mindy Szymanski MD at 22:31 EST Reading Location ID and State: [id number] / Tel , Service support ,
[2021-08-06 21:45] LABS: Absolute Lymphocyte Count 1.79 X10^3/uL (0.83-4.51); Absolute Neutrophil Count 13.6 X10^3/uL (2.0-7.7)
[2021-08-06 21:46] LABS: ALB/GLOB Ratio 0.6 RATIO (0.9-2.4); AST(SGOT) 25 U/L (15-37); Alanine Aminotransfer ALT/SGPT 34 U/L (13-56); Albumin, Serum 2.5 g/dL (3.2-5.0); Alkaline Phosphatase 117 U/L (45-117); Anion Gap 10 (5-15); Anisocytosis 1+; BUN 22 mg/dL (7-18); BUN/Creat Ratio 19.5 RATIO (10-20); Calcium,Total 8.6 mg/dL (8.5-10.1); Chloride 93 mmol/L (98-107); Creatinine, Serum 1.13 mg/dL (0.55-1.02); EST Glomerular Filtration Rate 50 mL/min (>60); Est Glom Filt Rate - Afr Amer 60 mL/min (>60); Estimated Creatinine Clearance 35.43 ml/min; Globulin 4.3 g/dL (2.2-4.2); Glucose 207 mg/dL (74-106); Lipase 96 U/L (73-393); Macrocytosis 1+; Platelet Estimate ADEQUATE (ADEQ); Potassium 4.2 mmol/L (3.5-5.1); Protein, Total 6.8 g/dL (6.4-8.2); Red Cell Morphology N CHROM NORMAL (NORM C&C); Sodium Level 126 mmol/L (136-145)
--- NOTE | 2021-08-06 22:50 | RAD_ITS ---
STUDY: X-RAY CHEST REASON FOR EXAM: Female, 76 years old. leukocytosis TECHNIQUE: Single AP portable view of the chest. COMPARISON: 07/31/2021. FINDINGS: The lungs are clear and expanded. There is no demonstrated pleural abnormality. Normal size heart. Normal mediastinum and nasrin. Normal visualized pulmonary arteries. Normal visualized aortic arch and descending thoracic aorta. Reverse left shoulder arthroplasty. Neurostimulator unit and loop recorder are noted. Soft tissue calcification projected over the right lung apex. RAD/Chest 1 View (Portable) IMPRESSION: No acute findings. Electronically Signed: Mindy Szymanski MD at 23:23 EST Reading Location ID and State: [id number] / Tel , Service support ,
[2021-08-06 23:11] VITALS: BP 179/72; PULSE 70; RESP 15; TEMP 36.3; O2SAT 99
--- NOTE | 2021-08-06 23:15 | PCM.HP.STD ---
Documented by User: LEANN Gutierrez 08/06/21 23:33 HPI - General General Date of Admission: 08/06/21 Date of Service: 08/06/21 Chief Complaint: Abdominal Pain HPI Narrative JERRELL BAUMAN, is a 76 F who presents with complaints of abdominal pain, nausea, vomiting, and diarrhea. Patient reports the diarrhea has been ongoing x4 days with 3-4 episodes of diarrhea per day and has not been bloody or dark in appearance.. Today after dinner patient vomited twice and was sent to the ER from TCU. Upon evaluation in the ER it was noted that patient was hyponatremic, likely from GI loss. Patient has a medical history that includes diabetes mellitus type 2, hyperlipidemia, asthma, hypothyroidism, osteoarthritis, GERD. [facility] Medical History Anxiety Asthma Asthma B12 deficiency Bleeding tendency Cataracts, bilateral Chronic back pain Chronic pain Diabetes Easy bruising GERD (gastroesophageal reflux disease) High cholesterol History of colon polyps History of echocardiogram History of edema History of rheumatic fever History of stress test HLD (hyperlipidemia) HTN (hypertension) Hyperlipidemia Injury of head and neck Leg cramps Localized edema Muscle tenderness Non-smoker Post-menopausal RLS (restless legs syndrome) Shortness of breath on exertion Thyroid disease Wears dentures Wears glasses Home Medications metoprolol succinate 50 mg PO DAILY 05/19/20 [History Last Taken 07/29/21] albuterol sulfate 1 - 2 puff INHALATION Q6H PRN PRN 06/02/20 [History Last Taken 12/26/20] levothyroxine 125 mcg tablet 125 mcg PO DAILY tab 06/09/20 [History Last Taken 07/29/21] metformin 500 mg PO DAILY 12/27/20 [History Last Taken 01/19/21] cetirizine 10 mg PO DAILY PRN 05/29/21 [History Last Taken Unknown] furosemide 40 mg PO DAILY 05/29/21 [History Last Taken Unknown] mirtazapine 15 mg PO QHS 05/29/21 [History Last Taken Unknown] olmesartan 20 mg PO DAILY 05/29/21 [History Last Taken 07/29/21] pantoprazole 40 mg PO DAILY 05/29/21 [History Last Taken 07/29/21] potassium chloride [Klor-Con M20] 20 meq PO DAILY 05/29/21 [History Last Taken Unknown] Breo Ellipta 1 inh INHALATION DAILY 07/15/21 [History Last Taken Unknown] ferrous sulfate 325 mg PO BID 07/29/21 [History Last Taken Unknown] folic acid 1 mg PO DAILY 07/29/21 [History Last Taken Unknown] ondansetron HCl (PF) 4 mg IV Q6H PRN PRN #0 ml 08/01/21 [Rx Last Taken Unknown] oxycodone 5 mg PO Q6H PRN PRN 7 Days #60 tab 08/01/21 [Rx Last Taken Unknown] acetaminophen 1,000 mg PO Q8 08/02/21 [History Last Taken Unknown] aspirin 81 mg PO 0800,1700 08/02/21 [History Last Taken Unknown] loperamide 2 mg PO Q6H PRN PRN #0 cap 08/02/21 [Rx Last Taken Unknown] nut.tx.comp. immune systm,reg [Ensure Surgery] 237 ml PO TIDCM 08/02/21 [History Last Taken Unknown] Allergy/AdvReac Type Severity Reaction Status Date / Time clindamycin Allergy Mild rash Verified 08/06/21 20:20 codeine phosphate AdvReac Severe Nausea Verified 08/06/21 20:20 [From Tylenol-Codeine #3] Family History Mother Heart valve disorder Hypertension Heart disease Father Pneumococcal pneumonia CVA (cerebral vascular accident) Heart disease Myocardial infarction Surgical History History of appendectomy History of bilateral carpal tunnel release History of cardiac catheterization History of carpal tunnel release History of colonoscopy (~2012) History of hysterectomy History of loop recorder history of pain stimulator History of total right hip replacement Hx of decompressive lumbar laminectomy Hx of lumbar discectomy Hx of tonsillectomy Hx of total hip arthroplasty Status post reverse total arthroplasty of left shoulder Social History household members: none housing: apartment number of children: 2 current occupational status: retired current occupational exposures/hazards: No pets and animals: No leisure activities: exercise and volunteer work Smoking Status: Never smoker ROS Constitutional Constitutional: Reports malaise and weakness; Denies anorexia, chills, fatigue or fever(s) Cardiovascular Cardiovascular: Denies chest pain, edema, palpitations or syncope Respiratory/Chest Respiratory/Chest: Denies cough, shortness of breath at rest, shortness of breath with exertion or wheezing Gastrointestinal Gastrointestinal: Reports abdominal pain, diarrhea, nausea and vomiting; Denies constipation, hematemesis or melena Genitourinary Genitourinary: Denies dysuria Musculoskeletal Musculoskeletal: Denies back pain, extremity pain, joint pain or joint stiffness Integumentary Integumentary: Denies dry skin Neurologic Neurologic: Denies abnormal gait, abnormal speech, confusion or dizziness Psychiatric Psychiatric: Denies anxiety or depression Endocrine Endocrinology: Denies change in body appearance Hematologic/Lymphatic Hematologic/Lymphatic: Denies anemia, easy bleeding or easy bruising Vital Signs Vital Signs Vital Signs: 08/06/21 20:17 08/06/21 23:11 Temperature 97.3 F L 97.4 F L Temperature Source Oral Temporal Pulse Rate 63 70 Respiratory Rate 18 15 Blood Pressure 159/70 H 179/72 H Blood Pressure Mean 99 107 Pulse Ox 99 99 Oxygen Delivery Method Room Air Room Air Weight Weight: 181 lb 10.574 oz Body Mass Index (BMI) 31.1 Physical Exam Const oriented x3 General Appearance: cooperative and lethargic HEENT normocephalic and head/scalp atraumatic Eyes conjunctivae normal and no scleral icterus Neck supple General: trachea midline Lymph Lymphatic: no lymphadenopathy noted Resp normal respiratory effort, normal air movement and clear to auscultation bilaterally Effort and Inspection: able to speak in complete sentences and symmetric chest movement Cardio regular rate, regular rhythm, S1 normal heart sound, S2 normal heart sound and peripheral pulses 2+ throughout GI normal to inspection, nondistended, normoactive bowel sounds and soft to palpation Palpation: tender epigastric Extremity normal capillary refill and no clubbing, cyanosis or edema General Extremity: no tenderness to palpation of joints or extremities Skin General Skin Exam: no breakdown and turgor normal Lesions: no lesions Rashes: no rashes Neuro moves all extremities, no focal motor deficits and no sensory deficits noted Motor Exam: general weakness Psych thought process normal, cooperative and affect normal Appearance: appropriate Results Lab / Micro Data Result Diagrams: 08/06/21 20:57 08/06/21 20:57 Labs: Laboratory Results - last 24 hr 08/06/21 20:57: WBC 17.9 H, RBC 3.46 L, Hgb 11.7 L, Hct 34.4 L, MCV 99.4 H, MCH 33.8 H, MCHC 34.0 D, RDW Std Deviation 49.1 H, RDW Coeff of Taran 13.5, Plt Count 389, MPV 10.7, Neut % (Auto) Not Reportable, Absolute Neuts (auto) 13.6 H, Absolute Lymphs (auto) 1.79, Total Counted 100, Neutrophils % (Manual) 70, Band Neutrophils % 6 H, Lymphocytes % (Manual) 10 L, Monocytes % (Manual) 6, Eosinophils % (Manual) 4, Metamyelocytes % 2 H, Myelocytes % 2 H, Diff Path Review November, Platelet Estimate ADEQUATE, RBC Morphology N CHROM, Anisocytosis 1+, Macrocytosis 1+ 08/06/21 20:57: Sodium 126 L, Potassium 4.2, Chloride 93 L, Carbon Dioxide 23.0, Anion Gap 10, BUN 22 H, Creatinine 1.13 H, Estim Creat Clear Calc 35.43, Est GFR (MDRD) Af Amer 60, Est GFR (MDRD) Non-Af 50 L, BUN/Creatinine Ratio 19.5, Glucose 207 H, Calcium 8.6, Total Bilirubin 0.20, AST 25, ALT 34, Alkaline Phosphatase 117, Total Protein 6.8, Albumin 2.5 L, Globulin 4.3 H, Albumin/Globulin Ratio 0.6 L, Lipase 96 Radiology Impression Abdomen/Pelvis CT 08/06/21 21:42 IMPRESSION: No acute findings. Diverticulosis, no acute diverticulitis. Electronically Signed: Mindy Szymanski MD at 22:31 EST Reading Location ID and State: [id number] / Tel , Service support , Assessment & Plan Assessment/Plan (1) Diabetes mellitus: QUALIFIERS: Diabetes mellitus complication status: without complication Diabetes mellitus middle or intermediate school principal insulin use: without middle or intermediate school principal use Diabetes mellitus type: type 2 Qualified Code(s): E11.9 - Type 2 diabetes mellitus without complications (2) Hyperlipidemia: QUALIFIERS: Hyperlipidemia type: unspecified Qualified Code(s): E78.5 - Hyperlipidemia, unspecified (3) Hypertension: QUALIFIERS: Hypertension type: primary hypertension Qualified Code(s): I10 - Essential (primary) hypertension PLAN: 1. Abdominal pain -Admit to [facility] -CT abdomen pelvis shows diverticulosis and cysts in no acute diverticulitis. Chest x-ray negative for acute findings -Clear liquid diet -C. difficile, enteric pathogen, COVID-19 pending -CBC CMP daily -PT and OT to eval and treat -As needed Zofran, Compazine ordered -PPI ordered twice daily 2. Hypertension -Patient currently hypertensive 179/72 -continue patient's home medication regimen including metoprolol and olmesartan -Vital signs per protocol -As needed hydralazine ordered 3. Diabetes mellitus type 2 -Will hold Metformin at this time due to elevated BUN and creatinine -AC at bedtime blood sugars with sliding scale insulin ordered 4. Hyperlipidemia -Patient not currently on statin 5. Asthma -Continue patient's home medication regimen -As needed albuterol nebulizer treatments ordered 6. Hypothyroidism -Continue levothyroxine DVT prophylaxis-subcu Lovenox This patient was seen by LEANN Gutierrez under the supervision of Dr. Stewart. 28 minutes spent in clinical coordination of patient's plan of care. Documented by User: Dr. Melida Stewart MD 08/07/21 00:14 HPI - General General Date of Admission: 08/06/21 [facility] Medical History Anxiety Asthma Asthma B12 deficiency Bleeding tendency Cataracts, bilateral Chronic back pain Chronic pain Diabetes Easy bruising GERD (gastroesophageal reflux disease) High cholesterol History of colon polyps History of echocardiogram History of edema History of rheumatic fever History of stress test HLD (hyperlipidemia) HTN (hypertension) Hyperlipidemia Injury of head and neck Leg cramps Localized edema Muscle tenderness Non-smoker Post-menopausal RLS (restless legs syndrome) Shortness of breath on exertion Thyroid disease Wears dentures Wears glasses Home Medications metoprolol succinate 50 mg PO DAILY 05/19/20 [History Last Taken 07/29/21] albuterol sulfate 1 - 2 puff INHALATION Q6H PRN PRN 06/02/20 [History Last Taken 12/26/20] levothyroxine 125 mcg tablet 125 mcg PO DAILY tab 06/09/20 [History Last Taken 07/29/21] metformin 500 mg PO DAILY 12/27/20 [History Last Taken 01/19/21] cetirizine 10 mg PO DAILY PRN 05/29/21 [History Last Taken Unknown] furosemide 40 mg PO DAILY 05/29/21 [History Last Taken Unknown] mirtazapine 15 mg PO QHS 05/29/21 [History Last Taken Unknown] olmesartan 20 mg PO DAILY 05/29/21 [History Last Taken 07/29/21] pantoprazole 40 mg PO DAILY 05/29/21 [History Last Taken 07/29/21] potassium chloride [Klor-Con M20] 20 meq PO DAILY 05/29/21 [History Last Taken Unknown] Breo Ellipta 1 inh INHALATION DAILY 07/15/21 [History Last Taken Unknown] ferrous sulfate 325 mg PO BID 07/29/21 [History Last Taken Unknown] folic acid 1 mg PO DAILY 07/29/21 [History Last Taken Unknown] ondansetron HCl (PF) 4 mg IV Q6H PRN PRN #0 ml 08/01/21 [Rx Last Taken Unknown] oxycodone 5 mg PO Q6H PRN PRN 7 Days #60 tab 08/01/21 [Rx Last Taken Unknown] acetaminophen 1,000 mg PO Q8 08/02/21 [History Last Taken Unknown] aspirin 81 mg PO 0800,1700 08/02/21 [History Last Taken Unknown] loperamide 2 mg PO Q6H PRN PRN #0 cap 08/02/21 [Rx Last Taken Unknown] nut.tx.comp. immune systm,reg [Ensure Surgery] 237 ml PO TIDCM 08/02/21 [History Last Taken Unknown] Allergy/AdvReac Type Severity Reaction Status Date / Time clindamycin Allergy Mild rash Verified 08/06/21 20:20 codeine phosphate AdvReac Severe Nausea Verified 08/06/21 20:20 [From Tylenol-Codeine #3] Family History Mother Heart valve disorder Hypertension Heart disease Father Pneumococcal pneumonia CVA (cerebral vascular accident) Heart disease Myocardial infarction Surgical History History of appendectomy History of bilateral carpal tunnel release History of cardiac catheterization History of carpal tunnel release History of colonoscopy (~2012) History of hysterectomy History of loop recorder history of pain stimulator History of total right hip replacement Hx of decompressive lumbar laminectomy Hx of lumbar discectomy Hx of tonsillectomy Hx of total hip arthroplasty Status post reverse total arthroplasty of left shoulder Social History household members: none housing: apartment number of children: 2 current occupational status: retired current occupational exposures/hazards: No pets and animals: No leisure activities: exercise and volunteer work Smoking Status: Never smoker Results Lab / Micro Data Result Diagrams: 08/06/21 20:57 08/06/21 20:57
--- NOTE | 2021-08-06 23:33 | ED.RN ---
daughter updated on pt condition
[2021-08-06 23:41] LABS: Mucous, Urine 0 SEEN /hpf (<or=2+)
[2021-08-06 23:45] LABS: Color, Urine Yellow (Yellow); Glucose, Dipstick Normal (Normal); Ketone-Dipstick Negative (Negative); Leukocyte Esterase-Dipstick 500 /ul (Negative); Nitrite-Dipstick Negative (Negative); Occult Blood-Urine 250 /ul (Negative); Protein-Dipstick 15 mg/dl (Negative); Specific Gravity, Urine 1.015 (1.002-1.030); Urine Bilirubin Dipstick Negative (Negative); Urine Clarity Clear (Clear); Urine Urobilinogen Normal (Normal)
[2021-08-07] VITALS (8 sets, daily range): BP systolic 133–182; BP diastolic 44–82; PULSE 79–88; RESP 16–18; TEMP 36.4–37.5; O2SAT 95–100; BMI 29.5
[2021-08-07 00:03] LABS: Bacteria 2+ /hpf (None Seen); Red Blood Cells-Urine 10-25 SEEN /hpf (0-5); Squamous Epithelial Cells - UA 0-5 SEEN /hpf (5-10); White Blood Cells 10-25 SEEN /hpf (0-5)
[2021-08-07] MEDS: Ceftriaxone 1 GM/50 ML BAG IV (00:46)
[2021-08-07] MEDS: 0.9% Saline Lock 10 ML Syringe IV (00:46)
[2021-08-07] MEDS: 0.9% Normal Saline 1,000 ML 125 ML IV ×2 (00:46→08:46)
[2021-08-07 05:55] LABS: Basophil# 0.11 X10^3/uL; Eosinophil# 0.61 X10^3/uL; Hematocrit 30.4 % (37-47); Hemoglobin 9.9 g/dL (12.0-15.0); Mean Corp Hgb Conc 32.6 g/dL (32-36); Mean Corpuscular Hgb 32.6 pg (27.0-32.0); Mean Platelet Vol. 10.8 fl (6.2-12.0); Monocyte# 1.19 X10^3/uL; NRBC Flagged by Analyzer 0 % (0-5); POSITIVE COUNT YES; POSITIVE MORPHOLOGY YES; Platelet Count 342 K/mm3 (150-450); RBC Distribution Width CV 13.3 % (11.6-14.6); Red Blood Count 3.04 M/mm3 (4.2-5.4); White Blood Count 13.9 K/mm3 (4.4-11.0)
[2021-08-07 06:06] LABS: Differential Indicated SCAN CRITERIA MET
[2021-08-07 06:39] LABS: ALB/GLOB Ratio 0.5 RATIO (0.9-2.4); AST(SGOT) 15 U/L (15-37); Alanine Aminotransfer ALT/SGPT 25 U/L (13-56); Alkaline Phosphatase 89 U/L (45-117); Anion Gap 7 (5-15); BUN 14 mg/dL (7-18); BUN/Creat Ratio 18.1 RATIO (10-20); Chloride 102 mmol/L (98-107); Creatinine, Serum 0.78 mg/dL (0.55-1.02); EST Glomerular Filtration Rate 77 mL/min (>60); Est Glom Filt Rate - Afr Amer 93 mL/min (>60); Estimated Creatinine Clearance 40.04 ml/min; Globulin 3.7 g/dL (2.2-4.2); Glucose 106 mg/dL (74-106); Protein, Total 5.7 g/dL (6.4-8.2); Sodium Level 130 mmol/L (136-145)
[2021-08-07] MEDS: Levothyroxine 125 MCG Tablet PO (06:40)
[2021-08-07 06:41] LABS: Scan Smear per Review Criteria MANUAL DIFF
[2021-08-07 06:48] LABS: Eosinophil 4 % (0-5); Lymphocyte 11 % (19-41); Metamyelocyte 3 % (0-1); Monocyte 8 % (0-10); Myelocyte 2 % (0-0); Neutrophil-Band 1 % (0-5); Neutrophil-Segmented 71 % (47-70); Total Cells Counted 100 (MANUAL DIFF)
[2021-08-07 06:49] LABS: Absolute Lymphocyte Count 1.53 X10^3/uL (0.83-4.51); Absolute Neutrophil Count 70.7 X10^3/uL (2.0-7.7); Lymphocyte # 1.53 X10^3/ul (0.83-4.51)
[2021-08-07 06:50] LABS: Platelet Estimate ADEQUATE (ADEQ); Red Cell Morphology NORM C+C NORMAL (NORM C&C)
[2021-08-07 06:56] LABS: Bedside Glucose 117 mg/dL (70-110)
[2021-08-07] MEDS: Budesonide Respules 0.5 MG/2 ML AMPUL.NEB. INHALATION (07:19)
[2021-08-07] MEDS: Albuterol 2.5 MG/3 ML VIAL.NEB. INHALATION ×2 (07:20→12:30)
--- NOTE | 2021-08-07 08:43 | CASEMGMT ---
Addendum entered by Christina Gonzalez 08/07/21 10:05: VENICE received call from [facility] with TCU stating if pt discharges back to TCU today before 7:00pm, pre-cert is not needed. If pt doesn't discharge today before 7:00pm pre-cert will be needed and pt will not be able to discharge back to TCU until Tuesday (if pre-cert is obtained). Original Note: Social Work Note SW reviewed chart, pt is listed as coming from [facility] TCU. VENICE placed a call to [facility] with TCU and left message regarding pt. SW waiting for call back. Christina Gonzalez WORKERS COMPENSATION CLAIMS ASSISTANT, JOURNEYMAN PAINTER
[2021-08-07] MEDS: Losartan Potassium 50 MG Tablet PO (08:45)
[2021-08-07] MEDS: Aspirin 81 MG TAB.CHEW PO (08:45)
[2021-08-07] MEDS: Metoprolol(XL)Succ 50 MG Tablet PO (08:45)
[2021-08-07] MEDS: Enoxaparin 40 MG/0.4 ML Syringe SC (08:45)
[2021-08-07] MEDS: Pantoprazole Sodium 40 MG Tablet PO (08:45)
[2021-08-07] MEDS: Ferrous Sulfate 325 MG Tablet PO (08:45)
[2021-08-07] MEDS: oxyCODONE 5 MG Tablet PO (10:37)
--- NOTE | 2021-08-07 10:52 | CASEMGMT ---
Social Work SW met with pt to confirm discharge plan. Pt does intend to return to TCU when discharged from hospital. SW and pt spoke about prison plans. Pt stating she does not think she can return home. SW and pt discussed prison ECF placement and Medicaid eligibility. VENICE collaborated with TCU VENICE Morin and updated on pt plans and discussion surrounding resources. Patience to assist with discharge planning from TCU. Pt aware and appreciative of assistance from VENICE. Plan: Return to TCU [place] [facility]
[2021-08-07 11:15] LABS: Bedside Glucose 149 mg/dL (70-110)
--- NOTE | 2021-08-07 12:02 | CASEMGMT ---
Social Work SW assisted pt in completing Medicaid application and application given to DAINA Morin LSW
[2021-08-07 12:22] LABS: Pathologist Review Reviewed
[2021-08-07 12:36] LABS: Sodium Level 129 mmol/L (136-145)
[2021-08-07 12:45] LABS: Pathologist Review Reviewed
--- NOTE | 2021-08-07 13:19 | DS.PCM_ITS ---
Providers Date of Admission: 08/06/21 Primary Care Physician: Dr. Oscar Adhikari MD Reason For Visit: GASTROENTERITIS, HYPONATREMIA Diagnosis Discharge Diagnosis (1) Diabetes mellitus: Status: Acute Code(s): E11.9 - Type 2 diabetes mellitus without complications Qualifiers: Diabetes mellitus type: type 2 Diabetes mellitus terminal system operator insulin use: without terminal system operator use Diabetes mellitus complication status: without complication Qualified Code(s): E11.9 - Type 2 diabetes mellitus without complications (2) Hyperlipidemia: Status: Acute Code(s): E78.5 - Hyperlipidemia, unspecified Qualifiers: Hyperlipidemia type: unspecified Qualified Code(s): E78.5 - Hyperlipidemia, unspecified (3) Hypertension: Status: Chronic Code(s): I10 - Essential (primary) hypertension Qualifiers: Hypertension type: primary hypertension Qualified Code(s): I10 - Essential (primary) hypertension Medications at Discharge Home Medications metoprolol succinate 100 mg PO DAILY 05/19/20 albuterol sulfate 1 - 2 puff INHALATION Q6H PRN PRN 06/02/20 levothyroxine 125 mcg tablet 125 mcg PO DAILY tab 06/09/20 metformin 500 mg PO DAILY 12/27/20 cetirizine 10 mg PO DAILY PRN 05/29/21 furosemide 40 mg PO DAILY 05/29/21 mirtazapine 15 mg PO QHS 05/29/21 pantoprazole 40 mg PO DAILY 05/29/21 potassium chloride [Klor-Con M20] 20 meq PO DAILY 05/29/21 Breo Ellipta 1 inh INHALATION BID 07/15/21 ferrous sulfate 325 mg PO BID 07/29/21 folic acid 1 mg PO DAILY 07/29/21 ondansetron HCl (PF) 4 mg IV Q6H PRN PRN #0 ml 08/01/21 oxycodone 5 mg PO Q6H PRN PRN 7 Days #60 tab 08/01/21 acetaminophen 1,000 mg PO Q8 08/02/21 aspirin 81 mg PO 0800,1700 08/02/21 loperamide 2 mg PO Q6H PRN PRN #0 cap 08/02/21 baclofen 10 mg PO TID PRN 08/07/21 cefdinir 300 mg PO BID #10 cap 08/07/21 losartan 100 mg PO DAILY 08/07/21 nystatin 500,000 unit PO 4X/DAY 08/07/21 polyethylene glycol 3350 [Miralax] 17 g PO DAILY 08/07/21 Hospital Course Operations None Procedures None Summary of Care Provided Minutes Spent on Discharge: 45 Hospital Course: Patient is a 75-year-old female with an extensive past medical history as outlined was admitted through the ED on 08/06/2021 with a complaint of several days of nausea, decreased intake abdominal cramping and epigastric discomfort as well as diarrhea. Patient had recently had a recent versus left total shoulder surgery. On admission, his sodium was 126 and urinalysis showed 2+ bacteria. She was admitted and managed for dehydration due to diarrhea as well as UTI. She was also managed for hyponatremia. She was hydrated with IV fluids. Sodium came up to 130. Patient felt much better and diarrhea resolved. CT of the abdomen showed diverticulosis but not diverticulitis. She was started on IV Rocephin for UTI. Patient remained stable and was discharged back to TCU on 08/07/2021. She was discharged on p.o. cefdinir 300 mg twice daily for 5 days to treat UTI. Patient does have a follow-up BMP in 1 day to follow- up on sodium levels. Patient seen and examined prior to discharge. She had no active complaints and felt much better. Her abdominal pain had improved and her diarrhea had resolved. Review of systems otherwise negative. Labs and vitals reviewed. Home medication reviewed and reconciled. Physical Exam Const alert, oriented x3 and no apparent distress General Appearance: cooperative, comfortable and well kempt Orientation / Consciousness: awake, oriented to person and oriented to place Exam Limitations: no limitations HEENT normocephalic, head/scalp atraumatic, hearing grossly normal bilaterally and moist oral mucous membranes Eyes PERRL, EOMs intact bilaterally and conjunctivae normal Neck no lymphadenopathy, supple and no JVD Resp normal respiratory effort, no retractions, no use of accessory muscles and clear to auscultation bilaterally Cardio regular rate, regular rhythm, S1 normal heart sound, S2 normal heart sound and no murmurs GI normal to inspection, nondistended, normoactive bowel sounds, soft to palpation, non-tender and non-distended Extremity normal to inspection and no clubbing, cyanosis or edema Extremity Narrative: LUE in sling Skin no rashes or lesions noted and no wounds Neuro oriented x3, CN's II-XII intact bilaterally and moves all extremities Sensorium / Orientation: awake and alert Psych affect normal Weight / BMI Weight Weight: 172 lb 6.424 oz Body Mass Index (BMI) 29.5 ABG / Lab / Microbiology Data Result Diagrams: 08/07/21 05:37 08/07/21 12:18 Laboratory: Laboratory Results - last 24 hr 08/06/21 20:57: WBC 17.9 H, RBC 3.46 L, Hgb 11.7 L, Hct 34.4 L, MCV 99.4 H, MCH 33.8 H, MCHC 34.0 D, RDW Std Deviation 49.1 H, RDW Coeff of Taran 13.5, Plt Count 389, MPV 10.7, Neut % (Auto) Not Reportable, Absolute Neuts (auto) 13.6 H, Absolute Lymphs (auto) 1.79, Total Counted 100, Neutrophils % (Manual) 70, Band Neutrophils % 6 H, Lymphocytes % (Manual) 10 L, Monocytes % (Manual) 6, Eosinophils % (Manual) 4, Metamyelocytes % 2 H, Myelocytes % 2 H, Diff Path R andrésw Reviewed, Platelet Estimate ADEQUATE, RBC Morphology N CHROM, Anisocytosis 1+, Macrocytosis 1+ 08/06/21 20:57: Sodium 126 L, Potassium 4.2, Chloride 93 L, Carbon Dioxide 23.0, Anion Gap 10, BUN 22 H, Creatinine 1.13 H, Estim Creat Clear Calc 35.43, Est GFR (MDRD) Af Amer 60, Est GFR (MDRD) Non-Af 50 L, BUN/Creatinine Ratio 19.5, Glucose 207 H, Calcium 8.6, Total Bilirubin 0.20, AST 25, ALT 34, Alkaline Phosphatase 117, Total Protein 6.8, Albumin 2.5 L, Globulin 4.3 H, Al bumin/Globulin Ratio 0.6 L, Lipase 96 08/06/21 23:22: Urine Color Yellow, Urine Clarity Clear, Urine pH 6.0, Ur Specific [place] 1.015, Urine Protein 15 H, Urine Glucose (UA) Normal, Urine Ketones Negative, Urine Occult Blood 250 H, Urine Nitrite Negative, Urine Bilirubin Negative, Urine Urobilinogen Normal, Ur Leukocyte Esterase 500 H, Urine RBC 10-25 SEEN, Urine WBC 10-25 SEEN, Ur Squamous Epith Cells 0-5 SEEN, Urine Bacteria 2+, Urine Mucus 0 SEEN 08/07/21 05:37: WBC 13.9 H, RBC 3.04 L, Hgb 9.9 L, Hct 30.4 L, MCV 100.0 H, MCH 32.6 H, MCHC 32.6, RDW Std Deviation 49.0 H, RDW Coeff of Taran 13.3, Plt Count 342, MPV 10.8, Immature Gran % (Auto) COMMUNITY RESOURCE OFFICER, Neut % (Auto) COMMUNITY RESOURCE OFFICER, Lymph % (Auto) COMMUNITY RESOURCE OFFICER, [place] % (Auto) COMMUNITY RESOURCE OFFICER, Eos % (Auto) COMMUNITY RESOURCE OFFICER, Baso % (Auto) COMMUNITY RESOURCE OFFICER, Absolute Neuts (auto) 70.7 H, Absolute Lymphs (auto) 1.53, Total Counted 100, Neutrophils % (Manual) 71 H, Band Neutrophils % 1, Lymphocytes % (Manual) 11 L, Monocytes % (Manual) 8, Eosinophils % (Manual) 4, Metamyelocytes % 3 H, Myelocytes % 2 H, Nucleated RBC % 0, Diff Path Review Reviewed, Platelet Estimate ADEQUATE, RBC Morphology NORM C+C 08/07/21 05:37: Sodium 130 L, Potassium 4.0, Chloride 102, Carbon Dioxide 21.0, Anion Gap 7, BUN 14, Creatinine 0.78, Estim Creat Clear Calc 40.04, Est GFR (MDRD) Af Amer 93, Est GFR (MDRD) Non-Af 77, BUN/Creatinine Ratio 18.1, Glucose 106, Calcium 8.0 L, Total Bilirubin 0.30, AST 15, ALT 25, Alkaline Phosphatase 89, Total Protein 5.7 L, Albumin 2.0 L, Globulin 3.7, Albumin/Globulin Ratio 0.5 L 08/07/21 06:32: POC Glucose 117 H 08/07/21 11:10: POC Glucose 149 H 08/07/21 12:18: Sodium 129 L Microbiology: Microbiology 08/06/21 22:50 Nasal Secretion SARS-CoV-2 Antigen (Rapid) - Final Radiography Diagnostic Testing: Radiology Impression Abdomen/Pelvis CT 08/06/21 21:42 IMPRESSION: No acute findings. Diverticulosis, no acute diverticulitis. Electronically Signed: Mindy Szymanski MD at 22:31 EST Reading Location ID and State: [id number] / Tel , Service support , Chest X-Ray 08/06/21 22:50 IMPRESSION: No acute findings. Electronically Signed: Mindy Szymanski MD at 23:23 EST Reading Location ID and State: [id number] / Tel , Service support , D/C Instructions Discharge Diet: Low fat / Low cholesterol Discharge Activity: Return to Normal Activity Weight Bearing Status: Weight bearing as tolerated Call your doctor if you observe: Fever of 101 or Higher, Shortness of breath, Swelling in the ankles and Increased palpitations (irregular heartbeat) Meaningful Use Info Meaningful Use Diagnoses (Choose all that apply): None applicable Discharge Plan Admission Admit Date/Time: 08/06/21 23:02 Primary Reason for Your Visit: diarrhea, hyponatremia Attending Provider: Karis Berrios Primary Care Provider: Oscar Adhikari Instructions Patient Instructions: Hyponatremia Dc, ED CYSTITIS Female Adult Additional Instructions / Restrictions: please hold furosemide for the weekend; check sodium level tomorrow. Once sodium levels have corrected, furosemide can be resumed Discharge Orders/Prescriptions Prescriptions: New cefdinir 300 mg capsule 300 mg PO BID Qty: 10 RF: 0 Continued levothyroxine 125 mcg tablet 125 mcg PO DAILY RF: 0 metoprolol succinate 50 MG tablet extended release 24 hr 100 mg PO DAILY RF: 0 albuterol sulfate 1 PUFF inhaler 1 - 2 puff INHALATION Q6H PRN PRN (Reason: Sob &/Or Wheezing) RF: 0 metformin 500 mg Tablet Extended Release 24 Hr 500 mg PO DAILY RF: 0 cetirizine 10 mg tablet 10 mg PO DAILY PRN (Reason: Allergy Symptoms) RF: 0 pantoprazole 40 mg tablet,delayed release (DR/EC) 40 mg PO DAILY RF: 0 mirtazapine 15 mg tablet 15 mg PO QHS RF: 0 potassium chloride [Klor-Con M20] 20 mEq tablet,ER particles/crystals 20 meq PO DAILY RF: 0 furosemide 80 mg tablet 40 mg PO DAILY RF: 0 Breo Ellipta 100-25 mcg/dose Blister With Device 1 inh INHALATION BID RF: 0 ferrous sulfate 325 mg (65 mg iron) Tablet 325 mg PO BID RF: 0 folic acid 1 mg Tablet 1 mg PO DAILY RF: 0 oxycodone 5 mg Tablet 5 mg PO Q6H PRN PRN (Reason: Pain Score 6-10) 7 Days Qty: 60 RF: 0 ondansetron HCl (PF) 4 mg/2 mL Solution 4 mg IV Q6H PRN PRN (Reason: Nausea) Qty: 0 RF: 0 loperamide 2 mg Capsule 2 mg PO Q6H PRN PRN (Reason: Dirrhea) Qty: 0 RF: 0 acetaminophen 500 mg tablet 1,000 mg PO Q8 RF: 0 aspirin 81 mg tablet,chewable 81 mg PO 0800,1700 RF: 0 polyethylene glycol 3350 [Miralax] 17 gram Powder In Packet 17 g PO DAILY RF: 0 nystatin 500,000 unit Tablet 500,000 unit PO 4X/DAY RF: 0 baclofen 10 mg Tablet 10 mg PO TID PRN (Reason: muscle spasms) RF: 0 losartan 100 mg Tablet 100 mg PO DAILY RF: 0 Referrals / Follow Up: Oscar Adhikari MD [Primary Care Provider] - Within 2 Weeks Disposition Disposition (needs filled in before D/C Order can be placed): Custodial Facility Charges/Coding Visit Charges OBSV E&M: 86919 Observation care discharge
--- NOTE | 2021-08-07 13:52 | PCM.TXEXTCAR ---
Diet 08/07/21 08:31 Diet: Full Liquid Is pt able to select menu?: Yes Diet Comments: patient is lactose intolerant Routine Orders/Code Status Enema Type: Fleetz Enema Frequency: Daily PRN Suppository Type: Dulcolax 10mg Suppository Frequency: Daily PRN Therapies Weight Bearing: Weight bearing as tolerated Physical Therapy: Eval and Treat Occupational Therapy: Eval and Treat Problem/Diagnosis (1) Diabetes mellitus: Status: Acute (2) Hyperlipidemia: Status: Acute (3) Hypertension: Status: Chronic Allergies/Procedures Done in Hospital Allergies clindamycin Allergy (Mild, Verified 08/06/21 20:20) rash codeine phosphate [From Tylenol-Codeine #3] Adverse Reaction (Severe, Verified 08/06/21 20:20) Nausea Procedures: None Type of Care/Length of Stay Estimated LOS: Convalescent Care Less Than 30 days Type of Care Needed: Skilled Rehab Potential: Good Prognosis: Good Additional Orders/Day of Discharge Day of Discharge: 08/07/21 Discharge Plan Admission Admit Date/Time: 08/06/21 23:02 Primary Reason for Your Visit: diarrhea, hyponatremia Attending Provider: Karis Berrios Primary Care Provider: Oscar Adhikari Instructions Patient Instructions: Hyponatremia Dc, ED CYSTITIS Female Adult Additional Instructions / Restrictions: please hold furosemide for the weekend; check BMP tomorrow to assess sodium levels. Once sodium levels have corrected, furosemide can be resumed Discharge Orders/Prescriptions Prescriptions: New cefdinir 300 mg capsule 300 mg PO BID Qty: 10 RF: 0 Continued levothyroxine 125 mcg tablet 125 mcg PO DAILY RF: 0 metoprolol succinate 50 MG tablet extended release 24 hr 100 mg PO DAILY RF: 0 albuterol sulfate 1 PUFF inhaler 1 - 2 puff INHALATION Q6H PRN PRN (Reason: Sob &/Or Wheezing) RF: 0 metformin 500 mg Tablet Extended Release 24 Hr 500 mg PO DAILY RF: 0 cetirizine 10 mg tablet 10 mg PO DAILY PRN (Reason: Allergy Symptoms) RF: 0 pantoprazole 40 mg tablet,delayed release (DR/EC) 40 mg PO DAILY RF: 0 mirtazapine 15 mg tablet 15 mg PO QHS RF: 0 potassium chloride [Klor-Con M20] 20 mEq tablet,ER particles/crystals 20 meq PO DAILY RF: 0 furosemide 80 mg tablet 40 mg PO DAILY RF: 0 Breo Ellipta 100-25 mcg/dose Blister With Device 1 inh INHALATION BID RF: 0 ferrous sulfate 325 mg (65 mg iron) Tablet 325 mg PO BID RF: 0 folic acid 1 mg Tablet 1 mg PO DAILY RF: 0 oxycodone 5 mg Tablet 5 mg PO Q6H PRN PRN (Reason: Pain Score 6-10) 7 Days Qty: 60 RF: 0 ondansetron HCl (PF) 4 mg/2 mL Solution 4 mg IV Q6H PRN PRN (Reason: Nausea) Qty: 0 RF: 0 loperamide 2 mg Capsule 2 mg PO Q6H PRN PRN (Reason: Dirrhea) Qty: 0 RF: 0 acetaminophen 500 mg tablet 1,000 mg PO Q8 RF: 0 aspirin 81 mg tablet,chewable 81 mg PO 0800,1700 RF: 0 polyethylene glycol 3350 [Miralax] 17 gram Powder In Packet 17 g PO DAILY RF: 0 nystatin 500,000 unit Tablet 500,000 unit PO 4X/DAY RF: 0 baclofen 10 mg Tablet 10 mg PO TID PRN (Reason: muscle spasms) RF: 0 losartan 100 mg Tablet 100 mg PO DAILY RF: 0 Referrals / Follow Up: Oscar Adhikari MD [Primary Care Provider] - Within 2 Weeks Disposition Disposition (needs filled in before D/C Order can be placed): Senior Living Facility
--- NOTE | 2021-08-07 15:14 | NURSING ---
Report called to Mary Ann in TCU.
== END 2021-08-07 15:41 | disposition skilled nursing facility (03) ==
LOC: ED 22:49 → MS3 23:23
PROVIDERS: Admitting Provider Family Medicine; Emergency Provider Emergency Medicine; PCP Family Medicine; Visit Provider Student in an Organized Health Care Education/Training Program
DX: E86.0 Dehydration (principal); E11.22 Type 2 diabetes mellitus with diabetic chronic kidney disease; N18.30 Chronic kidney disease, stage 3 unspecified; I12.9 Hypertensive chronic kidney disease with stage 1 through stage 4 chronic kidney disease, or unspecified chronic kidney disease; E03.9 Hypothyroidism, unspecified; Z79.84 Long term (current) use of oral hypoglycemic drugs; N39.0 Urinary tract infection, site not specified; K52.9 Noninfective gastroenteritis and colitis, unspecified; K57.90 Diverticulosis of intestine, part unspecified, without perforation or abscess without bleeding; E87.1 Hypo-osmolality and hyponatremia; K21.9 Gastro-esophageal reflux disease without esophagitis; M19.90 Unspecified osteoarthritis, unspecified site; E66.9 Obesity, unspecified; G89.29 Other chronic pain; G25.81 Restless legs syndrome; J45.909 Unspecified asthma, uncomplicated; E78.5 Hyperlipidemia, unspecified; Z68.31 Body mass index [BMI] 31.0-31.9, adult; Z79.899 Other long term (current) drug therapy; Z79.82 Long term (current) use of aspirin; Z79.51 Long term (current) use of inhaled steroids; Z98.890 Other specified postprocedural states; Z96.612 Presence of left artificial shoulder joint
CPT/HCPCS: 36415; 71045; 74176; 80053; 81001; 82962; 83690; 84295; 85025; 87086; 87088; 87186; 87426; 94640; 96361; 96365; 96372; 96375; 97162; 97166; 99218; 99251; 99284; J7030; A4216; G0378; G0463; J2405; J3490

== ENCOUNTER 2021-09-25 16:56 | Outpatient (CLI) | payer MEDICARE, SELFPAY ==
--- NOTE | 2021-09-25 16:59 | RAD_ITS ---
EXAM: XR LEFT TIBIA AND FIBULA, 2 VIEWS CLINICAL INDICATION: CONTUSION WOUND WITH SWELLING AND REDNESS TO ANTERIOR MID/DISTAL LEG S/P FALL ON STAIRS x2 WEEKS AGO TECHNIQUE: Frontal and lateral views of the left tibia and fibula. This report was created using [employer] report generation technology. COMPARISON: None. FINDINGS: BONES/JOINTS: Unremarkable. No acute fracture. No subluxation. Normal alignment. Preservation of the joint space. No sclerotic or destructive changes observed. SOFT TISSUES: Soft tissue swelling around the ankle. No radiopaque foreign body. VASCULATURE: There are atherosclerotic vascular calcifications. RAD/Tibia & Fibula 2 Views IMPRESSION: Soft tissue swelling around the ankle. Electronically Signed: Jesús Hayden MD at 20:26 EDT Reading Location ID and State: [facility] / [place] , Service support ,
== END 2021-09-25 23:59 | disposition home or self-care (01) ==
LOC: MTRAD 16:57
PROVIDERS: PCP Family Medicine; Referring Provider Family Medicine; Visit Provider Family Medicine
DX: M25.472 Effusion, left ankle (principal); S80.12XS Contusion of left lower leg, sequela
CPT/HCPCS: 73590

== ENCOUNTER 2021-10-08 15:07 | Outpatient (CLI) | payer MEDICARE, SELFPAY ==
[2021-10-08 17:01] LABS: Amphetamine Urine VISTA NEGATIVE (<1000 ng/mL); Barbiturate Urine VISTA NEGATIVE (< 200 ng/mL); Benzodiazepine Urine VISTA NEGATIVE (< 200 ng/mL); Cocaine Urine VISTA NEGATIVE (< 300 ng/mL); Ecstacy Urine VISTA NEGATIVE (< 500 ng/mL); Methadone Urine VISTA NEGATIVE (< 300 ng/mL); PCP Urine VISTA NEGATIVE (< 25 ng/mL); THC Urine VISTA NEGATIVE (< 50 ng/mL); Vista UDS pH Range 6
== END 2021-10-08 23:59 | disposition home or self-care (01) ==
LOC: LAB 15:08
PROVIDERS: PCP Family Medicine; Visit Provider Anesthesiology Pain Medicine
DX: F11.20 Opioid dependence, uncomplicated (principal)
CPT/HCPCS: 80307

== ENCOUNTER → 2021-11-18 | Outpatient (CLI) | payer MEDICARE, SELFPAY | END | disposition home or self-care (01) | LOC: LABSPEC 12:31 | PROVIDERS: PCP Family Medicine; Referring Provider Family Medicine; Visit Provider Family Medicine | DX: J40 Bronchitis, not specified as acute or chronic (principal); J06.9 Acute upper respiratory infection, unspecified | CPT/HCPCS: 87635; 87804; 87807; U0003; U0005 ==

== ENCOUNTER → 2021-11-21 | Outpatient (CLI) | payer MEDICARE, SELFPAY ==
--- NOTE | 2021-11-21 08:06 | RAD_ITS ---
STUDY: X-RAY CHEST REASON FOR EXAM: Female, 76 years old. chest congestion TECHNIQUE: XR Chest 2 Views COMPARISON: 08.06.21 FINDINGS: There is no demonstrated pleural abnormality. Total left shoulder arthroplasty. Loop recorder noted. Metallic leads in the spinal canal may suggest spinal stimulator leads. Normal size heart. Normal mediastinum and nasrin. Normal visualized pulmonary arteries. There is atherosclerotic calcification of the aortic arch with tortuosity. There are diffuse degenerative changes of the visualized thoracic spine. There is degenerative osteoarthritis of the bilateral shoulders. There is no demonstrated abnormality of the visualized soft tissue structures of the upper abdomen. RAD/Chest PA and Lateral IMPRESSION: There are no acute findings. Electronically Signed: Jesús Hayden MD at 8:39 EDT ,
[2021-11-21 09:19] LABS: Hematocrit 35.4 % (37-47); Hemoglobin 11.5 g/dL (12.0-15.0); Mean Corp Hgb Conc 32.5 g/dL (32-36); Mean Corpuscular Hgb 33.6 pg (27.0-32.0); Mean Corpuscular Volume 103.5 fL (81-99); Mean Platelet Vol. 11.1 fl (6.2-12.0); Platelet Count 308 K/mm3 (150-450); RBC Distribution Width CV 13.2 % (11.6-14.6); RBC Distribution Width SD 49.8 fl (35.1-43.9); Red Blood Count 3.42 M/mm3 (4.2-5.4); White Blood Count 15.8 K/mm3 (4.4-11.0)
[2021-11-21 10:05] LABS: Anion Gap 9 (5-15); BUN 18 mg/dL (7-18); BUN/Creat Ratio 15.7 RATIO (10-20); Calcium,Total 9.1 mg/dL (8.5-10.1); Chloride 102 mmol/L (98-107); Creatinine, Serum 1.15 mg/dL (0.55-1.02); EST Glomerular Filtration Rate 49 mL/min (>60); Est Glom Filt Rate - Afr Amer 59 mL/min (>60); Glucose 295 mg/dL (74-106); Potassium 4.2 mmol/L (3.5-5.1); Sodium Level 136 mmol/L (136-145)
== END | disposition home or self-care (01) ==
LOC: RAD 07:56
PROVIDERS: PCP Family Medicine; Referring Provider Family Medicine; Visit Provider Family Medicine
DX: J40 Bronchitis, not specified as acute or chronic (principal)
CPT/HCPCS: 36415; 71046; 80048; 85027

== ENCOUNTER 2021-11-29 17:08 | Observation (INO) | payer MEDICARE, SELFPAY ==
[2021-11-29 17:08] VITALS: BP 128/64; PULSE 86; RESP 16; TEMP 36.4; O2SAT 98; BMI 29.2
[2021-11-29 18:45] VITALS: PULSE 88; RESP 17
[2021-11-29 18:57] LABS: Absolute Lymphocyte Count 1.55 X10^3/uL (0.83-4.51); Absolute Neutrophil Count 12.2 X10^3/uL (2.0-7.7); Basophil% 0.6 % (0-1); Eosinophil# 0.28 X10^3/uL; Eosinophils% 1.8 % (0-5); Hematocrit 37.7 % (37-47); Hemoglobin 12.7 g/dL (12.0-15.0); Lymphocyte # 1.55 X10^3/ul (0.83-4.51); Lymphocyte % 9.9 % (19-41); Mean Corp Hgb Conc 33.7 g/dL (32-36); Mean Corpuscular Hgb 33.6 pg (27.0-32.0); Mean Corpuscular Volume 99.7 fL (81-99); Mean Platelet Vol. 10.9 fl (6.2-12.0); Monocyte# 1.06 X10^3/uL; Monocyte% 6.8 % (0-10); NRBC Flagged by Analyzer 0 % (0-5); Neutrophil # 12.17 X10^3/uL (2.7-7.7); Neutrophil % 77.5 % (47-70); Platelet Count 321 K/mm3 (150-450); RBC Distribution Width CV 12.8 % (11.6-14.6); Red Blood Count 3.78 M/mm3 (4.2-5.4); White Blood Count 15.7 K/mm3 (4.4-11.0)
--- NOTE | 2021-11-29 19:05 | RAD_ITS ---
STUDY: X-RAY CHEST REASON FOR EXAM: Female, 76 years old. sob TECHNIQUE: Single frontal view COMPARISON: 11/21/2021 FINDINGS: Minimal left lower lobe fibrosis. Right lung clear. There is no demonstrated pleural abnormality. Normal size heart. Normal mediastinum and nasrin. Normal visualized pulmonary arteries. Normal visualized aortic arch and descending thoracic aorta. Spinal stimulator projects over the thoracic spine extending cephalad to the T8 level. Status post left shoulder reverse arthroplasty. There is no demonstrated abnormality of the visualized soft tissue structures of the upper abdomen. RAD/Chest 1 View (Portable) IMPRESSION: Stable findings. Minimal left lower lobe fibrosis. Spinal stimulator. Left shoulder reverse arthroplasty. Electronically Signed: Kishan Barr MD, SERVANDO at 19:45 EDT ,
[2021-11-29 19:15] LABS: ALB/GLOB Ratio 0.7 RATIO (0.9-2.4); AST(SGOT) 31 U/L (15-37); Alanine Aminotransfer ALT/SGPT 40 U/L (13-56); Alkaline Phosphatase 96 U/L (45-117); Anion Gap 9 (5-15); BUN 25 mg/dL (7-18); BUN/Creat Ratio 15.5 RATIO (10-20); Chloride 92 mmol/L (98-107); Creatinine, Serum 1.61 mg/dL (0.55-1.02); EST Glomerular Filtration Rate 33 mL/min (>60); Est Glom Filt Rate - Afr Amer 40 mL/min (>60); Estimated Creatinine Clearance 24.87 ml/min; Globulin 4.1 g/dL (2.2-4.2); Glucose 294 mg/dL (74-106); Potassium 4.6 mmol/L (3.5-5.1); Protein, Total 7.1 g/dL (6.4-8.2); Sodium Level 126 mmol/L (136-145); Troponin-I HS 6 pg/mL (3.0-54.0)
--- NOTE | 2021-11-29 21:00 | EDS_ITS ---
HPI History of Present Illness Chief Complaint: Weakness Narrative Narrative: Patient presents with generalized weakness, cough congestion and a sore throat. This is been ongoing for a few days but it is progressively getting worse. She also has some difficulty swallowing recently. She has been on antibiotics for the upper respiratory infection. No fever or chills. [facility] Medical History Anxiety Asthma Asthma B12 deficiency Bleeding tendency Cataracts, bilateral Chronic back pain Chronic pain Diabetes Easy bruising GERD (gastroesophageal reflux disease) High cholesterol History of colon polyps History of echocardiogram History of edema History of rheumatic fever History of stress test HLD (hyperlipidemia) HTN (hypertension) Hyperlipidemia Injury of head and neck Leg cramps Localized edema Muscle tenderness Non-smoker Post-menopausal RLS (restless legs syndrome) Shortness of breath on exertion Thyroid disease Wears dentures Wears glasses Home Medications metoprolol succinate 50 mg PO DAILY 05/19/20 [History Last Taken 08/06/21] levothyroxine 125 mcg tablet 125 mcg PO DAILY tab 06/09/20 [History Last Taken 08/06/21] metformin 500 mg PO DAILY 12/27/20 [History Last Taken 08/06/21] cetirizine 10 mg PO DAILY PRN 05/29/21 [History Last Taken Unknown] furosemide 40 mg PO DAILY 05/29/21 [History Last Taken 08/06/21] potassium chloride [Klor-Con M20] 20 meq PO DAILY 05/29/21 [History Last Taken 08/06/21] Breo Ellipta 1 inh INHALATION DAILY 07/15/21 [History Last Taken 08/06/21] ferrous sulfate 325 mg PO BID 07/29/21 [History Last Taken 08/06/21] losartan 100 mg PO DAILY #0 tab 08/14/21 [Rx Last Taken Unknown] albuterol sulfate 2 puff INHALATION Q6H PRN 11/29/21 [History Last Taken Unknown] amlodipine 5 mg PO QHS 11/29/21 [History Last Taken Unknown] cholecalciferol (vitamin D3) [Vitamin D3] 25 mcg PO DAILY 11/29/21 [History Last Taken Unknown] famotidine 40 mg PO DAILY 11/29/21 [History Last Taken Unknown] hydrocodone-acetaminophen 1 tab PO BID PRN 11/29/21 [History Last Taken Unknown] mirtazapine 7.5 mg PO QHS 11/29/21 [History Last Taken Unknown] olmesartan 20 mg PO DAILY 11/29/21 [History Last Taken Unknown] ropinirole 1 mg PO DAILY 11/29/21 [History Last Taken Unknown] rosuvastatin 5 mg PO QHS 11/29/21 [History Last Taken Unknown] triamcinolone acetonide [Nasacort] 1 spray INTRANASAL QHS 11/29/21 [History Last Taken Unknown] zinc 50 mg PO DAILY 11/29/21 [History Last Taken Unknown] Allergy/AdvReac Type Severity Reaction Status Date / Time clindamycin Allergy Mild rash Verified 11/29/21 17:11 codeine phosphate AdvReac Severe Nausea Verified 11/29/21 17:11 [From Tylenol-Codeine #3] Family History Mother Heart valve disorder Hypertension Heart disease Father Pneumococcal pneumonia CVA (cerebral vascular accident) Heart disease Myocardial infarction Surgical History History of appendectomy History of bilateral carpal tunnel release History of cardiac catheterization History of carpal tunnel release History of colonoscopy (~2012) History of hysterectomy History of loop recorder history of pain stimulator History of total right hip replacement Hx of decompressive lumbar laminectomy Hx of lumbar discectomy Hx of tonsillectomy Hx of total hip arthroplasty Status post reverse total arthroplasty of left shoulder Social History household members: none housing: apartment number of children: 2 current occupational status: retired current occupational exposures/hazards: No pets and animals: No leisure activities: exercise and volunteer work Smoking Status: Never smoker ROS ROS ED ROS Narrative Past medical history: Reviewed, it is extensive I reviewed with the patient and daughter at the bedside as well as in [facility]. Medications: Reviewed Social history: Noncontributory Review of systems: All systems negative except as indicated General: No fever. Generalized weakness Eyes: No visual changes ENT: Sore throat and upper airway congestion Neck: No neck pain Cardiovascular: No chest pain Respiratory: No shortness of breath or cough Gastrointestinal: No abdominal pain, nausea vomiting or diarrhea Genitourinary: No dysuria Musculoskeletal: Denies myalgias no difficulty with ambulation Skin: No rash Neurological: No memory loss, confusion or any focal weakness Psych: No recent behavioral changes Hematologic: No easy bleeding or easy bruising EXAM Physical Exam Narrative Exam Narrative: Physical exam General: Patient appears chronically ill, she does not appear in significant current distress Head: Normocephalic, Atraumatic Eyes: Conjunctiva not pale ENT: Slightly dry mucous membranes. She has oral thrush including posterior oropharynx. Neck: Supple, Nontender, No lymphadenopathy Cardiovascular: Regular rate, Regular rhythm Respiratory: No distress, CTA bilaterally Abdomen: Soft, Nontender, Nondistended Back: Nontender, Normal Inspection. Negative for: CVA tenderness Extremities: Nontender, No edema Skin: Normal color, No rash Neurological: Alert, Normal Strength, Normal Sensation Psychological: Normal affect Const Vital Signs: 11/29/21 17:08 11/29/21 18:45 Temperature 97.5 F L Temperature Source Temporal Pulse Rate 86 88 Respiratory Rate 16 17 Respiratory Effort Normal Non-Labored Respiratory Pattern Normal Blood Pressure 128/64 H Blood Pressure Mean 85 Pulse Ox 98 Oxygen Delivery Method Room Air Room Air MDM MDM MDM Narrative Medical decision making narrative: Patient is found to have hyponatremia, I treated her thrush, I will admit her for her weakness Lab Data Labs: Laboratory Results - last 24 hr 11/29/21 11/29/21 11/29/21 18:45 18:45 18:45 WBC 15.7 H RBC 3.78 L Hgb 12.7 Hct 37.7 MCV 99.7 H MCH 33.6 H MCHC 33.7 RDW Std Deviation 47.0 H RDW Coeff of Taran 12.8 Plt Count 321 MPV 10.9 Immature Gran % (Auto) 3.400 H Neut % (Auto) 77.5 H Lymph % (Auto) 9.9 L [place] % (Auto) 6.8 Eos % (Auto) 1.8 Baso % (Auto) 0.6 Absolute Neuts (auto) 12.2 H Absolute Lymphs (auto) 1.55 Nucleated RBC % 0 Sodium 126 L Potassium 4.6 Chloride 92 L Carbon Dioxide 25.0 Anion Gap 9 BUN 25 H Creatinine 1.61 H Estim Creat Clear Calc 24.87 Est GFR (MDRD) Af Amer 40 L Est GFR (MDRD) Non-Af 33 L BUN/Creatinine Ratio 15.5 Glucose 294 H Calcium 9.0 Total Bilirubin 0.50 AST 31 ALT 40 Alkaline Phosphatase 96 Troponin I High Sens 6 B-Natriuretic Peptide 9.0 Total Protein 7.1 Albumin 3.0 L Globulin 4.1 Albumin/Globulin Ratio 0.7 L Radiography Diagnostic Testing: Clinical Impression(s) from Imaging Studies Chest X-Ray 11/29/21 19:05 IMPRESSION: Stable findings. Minimal left lower lobe fibrosis. Spinal stimulator. Left shoulder reverse arthroplasty. Electronically Signed: Kishan Barr MD, SERVANDO at 19:45 EDT , Chest x-ray read by me and radiologist does not show any acute pathology Discharge Plan Triage Chief Complaint: Weakness ED Provider: Oscar Trotter Dx/Rx/DC Orders Clinical Impression: Acute hyponatremia, Oral thrush Prescriptions: No Action levothyroxine 125 mcg tablet 125 mcg PO DAILY RF: 0 metoprolol succinate 50 MG tablet extended release 24 hr 50 mg PO DAILY RF: 0 metformin 500 mg Tablet Extended Release 24 Hr 500 mg PO DAILY RF: 0 cetirizine 10 mg tablet 10 mg PO DAILY PRN (Reason: Allergy Symptoms) RF: 0 potassium chloride [Klor-Con M20] 20 mEq tablet,ER particles/crystals 20 meq PO DAILY RF: 0 furosemide 80 mg tablet 40 mg PO DAILY RF: 0 Breo Ellipta 100-25 mcg/dose Blister With Device 1 inh INHALATION DAILY RF: 0 ferrous sulfate 325 mg (65 mg iron) Tablet 325 mg PO BID RF: 0 losartan 100 mg Tablet 100 mg PO DAILY Qty: 0 RF: 0 ropinirole 1 mg tablet 1 mg PO DAILY RF: 0 hydrocodone-acetaminophen 5-325 mg tablet 1 tab PO BID PRN (Reason: Pain) RF: 0 famotidine 40 mg tablet 40 mg PO DAILY RF: 0 amlodipine 5 mg tablet 5 mg PO QHS RF: 0 triamcinolone acetonide [Nasacort] 55 mcg Aerosol,[place] 1 spray INTRANASAL QHS RF: 0 zinc 50 mg Tablet 50 mg PO DAILY RF: 0 albuterol sulfate 90 mcg/actuation HFA aerosol inhaler 2 puff INHALATION Q6H PRN (Reason: sob) RF: 0 olmesartan 20 mg tablet 20 mg PO DAILY RF: 0 rosuvastatin 5 mg tablet 5 mg PO QHS RF: 0 mirtazapine 7.5 mg tablet 7.5 mg PO QHS RF: 0 cholecalciferol (vitamin D3) [Vitamin D3] 25 mcg (1,000 unit) Tablet 25 mcg PO DAILY RF: 0 Primary Care Provider: Oscar Adhikari Referrals: Oscar Adhikari MD [Primary Care Provider] - Disposition Disposition: Acute Care Hospital [facility]
[2021-11-29] MEDS: Fluconazole 100 MG Tablet 150 MG PO (21:12)
[2021-11-29 21:14] VITALS: BP 129/76; PULSE 76; RESP 18; TEMP 36.7; O2SAT 96
--- NOTE | 2021-11-29 21:42 | PCM.HP.STD ---
HPI - General General Date of Admission: 11/29/21 Date of Service: 11/29/21 Chief Complaint: Generalized weakness HPI Narrative JERRELL BAUMAN, is a 76 F who presents to the emergency room at [facility] after being brought in with complaints of generalized weakness. Patient states this is been going on for several days. Labs were obtained on the patient, CBC was remarkable for a white blood cell count of 15.7, chemistry profile was abnormal for sodium of 126 and a chloride of 92, BUN is 25 and creatinine is 1.61. Patient's glucose was 294. Chest x-ray showed minimal left lower lobe fibrosis and the presence of a spinal stimulator as well as an old left shoulder reverse arthroplasty. Patient will be placed in observation status on MedSurg, she will be given IV fluids and her Lasix will be held, labs will be repeated tomorrow, she will be seen by PT and OT. [facility] Medical History Anxiety Asthma Asthma B12 deficiency Bleeding tendency Cataracts, bilateral Chronic back pain Chronic pain Diabetes Easy bruising GERD (gastroesophageal reflux disease) High cholesterol History of colon polyps History of echocardiogram History of edema History of rheumatic fever History of stress test HLD (hyperlipidemia) HTN (hypertension) Hyperlipidemia Injury of head and neck Leg cramps Localized edema Muscle tenderness Non-smoker Post-menopausal RLS (restless legs syndrome) Shortness of breath on exertion Thyroid disease Wears dentures Wears glasses Home Medications metoprolol succinate 50 mg PO DAILY 05/19/20 [History Last Taken 08/06/21] levothyroxine 125 mcg tablet 125 mcg PO DAILY tab 06/09/20 [History Last Taken 08/06/21] metformin 500 mg PO DAILY 12/27/20 [History Last Taken 08/06/21] cetirizine 10 mg PO DAILY PRN 05/29/21 [History Last Taken Unknown] furosemide 40 mg PO DAILY 05/29/21 [History Last Taken 08/06/21] potassium chloride [Klor-Con M20] 20 meq PO DAILY 05/29/21 [History Last Taken 08/06/21] Breo Ellipta 1 inh INHALATION DAILY 07/15/21 [History Last Taken 08/06/21] ferrous sulfate 325 mg PO BID 07/29/21 [History Last Taken 08/06/21] losartan 100 mg PO DAILY #0 tab 02/04/22 [Rx Last Taken Unknown] albuterol sulfate 2 puff INHALATION Q6H PRN 11/29/21 [History Last Taken Unknown] amlodipine 5 mg PO QHS 11/29/21 [History Last Taken Unknown] cholecalciferol (vitamin D3) [Vitamin D3] 25 mcg PO DAILY 11/29/21 [History Last Taken Unknown] famotidine 40 mg PO DAILY 11/29/21 [History Last Taken Unknown] hydrocodone-acetaminophen 1 tab PO BID PRN 11/29/21 [History Last Taken Unknown] mirtazapine 7.5 mg PO QHS 11/29/21 [History Last Taken Unknown] olmesartan 20 mg PO DAILY 11/29/21 [History Last Taken Unknown] ropinirole 1 mg PO DAILY 11/29/21 [History Last Taken Unknown] rosuvastatin 5 mg PO QHS 11/29/21 [History Last Taken Unknown] triamcinolone acetonide [Nasacort] 1 spray INTRANASAL QHS 11/29/21 [History Last Taken Unknown] zinc 50 mg PO DAILY 11/29/21 [History Last Taken Unknown] Allergy/AdvReac Type Severity Reaction Status Date / Time clindamycin Allergy Mild rash Verified 11/29/21 17:11 codeine phosphate AdvReac Severe Nausea Verified 11/29/21 17:11 [From Tylenol-Codeine #3] Family History Mother Heart valve disorder Hypertension Heart disease Father Pneumococcal pneumonia CVA (cerebral vascular accident) Heart disease Myocardial infarction Surgical History History of appendectomy History of bilateral carpal tunnel release History of cardiac catheterization History of carpal tunnel release History of colonoscopy (~2012) History of hysterectomy History of loop recorder history of pain stimulator History of total right hip replacement Hx of decompressive lumbar laminectomy Hx of lumbar discectomy Hx of tonsillectomy Hx of total hip arthroplasty Status post reverse total arthroplasty of left shoulder Social History household members: none housing: apartment number of children: 2 current occupational status: retired current occupational exposures/hazards: No pets and animals: No leisure activities: exercise and volunteer work Smoking Status: Never smoker ROS Constitutional Constitutional: Reports fatigue and weakness; Denies anorexia, change in weight, fever(s) or night sweats Eyes Eyes: Denies blurry vision, change in vision, discharge from eye(s) or eye pain ENT HEENT: Denies abnormal hearing, dysphagia or ear pain Cardiovascular Cardiovascular: Denies chest pain, claudication, dyspnea on exertion, edema, lightheadedness, orthopnea or palpitations Respiratory/Chest Respiratory/Chest: Denies cough, dyspnea, excessive phlegm production, hemoptysis, productive cough, shortness of breath at rest or shortness of breath with exertion Gastrointestinal Gastrointestinal: Reports nausea; Denies abdominal pain, coffee ground emesis, constipation, diarrhea, dyspepsia, hematemesis, hematochezia, melena or vomiting Genitourinary Genitourinary: Denies burning urination, difficulty urinating, dysuria, hematuria, urinary frequency, urinary hesitancy, urinary incontinence or urinary urgency Musculoskeletal Musculoskeletal: Denies back pain, joint pain, joint stiffness, joint swelling, myalgias or neck pain Neurologic Neurologic: Denies abnormal gait, abnormal speech, confusion, dizziness, focal weakness, headache(s), loss of vision, numbness, other visual disturbances, paresthesias, syncope or tingling Psychiatric Psychiatric: Denies anxiety, cognitive impairment, depression, irritability, mood swings or suicidal ideation Endocrine Endocrinology: Denies change in body appearance, cold intolerance, excessive sweating, heat intolerance, polydipsia or polyuria Hematologic/Lymphatic Hematologic/Lymphatic: Denies none, anemia, easy bleeding, easy bruising or lymphadenopathy Allergic/Immunologic Allergic/Immunologic: Denies rhinitis, urticaria, eczemia or asthma Vital Signs Vital Signs Vital Signs: 11/29/21 17:08 11/29/21 18:45 11/29/21 21:14 Temperature 97.5 F L 98.0 F Temperature Source Temporal Oral Pulse Rate 86 88 76 Respiratory Rate 16 17 18 Respiratory Effort Normal Non-Labored Respiratory Pattern Normal Blood Pressure 128/64 H 129/76 H Blood Pressure Mean 85 93 Pulse Ox 98 96 Oxygen Delivery Method Room Air Room Air Room Air Weight Weight: 77.111 kg Body Mass Index (BMI) 29.2 Physical Exam Const alert, oriented x3, no apparent distress, average body habitus and healthy appearing General Appearance: cooperative, well kempt and well developed Orientation / Consciousness: awake, oriented to person, oriented to place and oriented to time HEENT normocephalic, head/scalp atraumatic and hearing grossly normal bilaterally HEENT Narrative: Patient has some whiteness of her hard palate and white areas on her tongue along with associated redness of the tongue Eyes PERRL, EOMs intact bilaterally and conjunctivae normal Neck nuchal rigidity, supple, no JVD, thyroid normal and no carotid bruits General: trachea midline Resp normal respiratory effort, no retractions, no use of accessory muscles and clear to auscultation bilaterally Auscultation: Negative for rales, rhonchi or wheezes Cardio regular rate, regular rhythm, S1 normal heart sound, S2 normal heart sound, no murmurs, no rub and no gallops GI normal to inspection, nondistended, normoactive bowel sounds, soft to palpation, non-tender and non-distended Extremity no clubbing, cyanosis or edema Skin no rashes or lesions noted General Skin Exam: no breakdown Neuro oriented x3, CN's II-XII intact bilaterally, no focal motor deficits and no sensory deficits noted Sensorium / Orientation: awake and alert Speech: speech normal Psych affect normal Results Lab / Micro Data Result Diagrams: 11/29/21 18:45 11/29/21 18:45 Labs: Laboratory Results - last 24 hr 11/29/21 18:45: WBC 15.7 H, RBC 3.78 L, Hgb 12.7, Hct 37.7, MCV 99.7 H, MCH 33.6 H, MCHC 33.7, RDW Std Deviation 47.0 H, RDW Coeff of Taran 12.8, Plt Count 321, MPV 10.9, Immature Gran % (Auto) 3.400 H, Neut % (Auto) 77.5 H, Lymph % (Auto) 9.9 L, [place] % (Auto) 6.8, Eos % (Auto) 1.8, Baso % (Auto) 0.6, Absolute Neuts (auto) 12.2 H, Absolute Lymphs (auto) 1.55, Nucleated RBC % 0 11/29/21 18:45: Sodium 126 L, Potassium 4.6, Chloride 92 L, Carbon Dioxide 25.0, Anion Gap 9, BUN 25 H, Creatinine 1.61 H, Estim Creat Clear Calc 24.87, Est GFR (MDRD) Af Amer 40 L, Est GFR (MDRD) Non-Af 33 L, BUN/Creatinine Ratio 15.5, Glucose 294 H, Calcium 9.0, Total Bilirubin 0.50, AST 31, ALT 40, Alkaline Phosphatase 96, Troponin I High Sens 6, Total Protein 7.1, Albumin 3.0 L, Globulin 4.1, Albumin/Globulin Ratio 0.7 L 11/29/21 18:45: B-Natriuretic Peptide 9.0 Micro: Microbiology 11/29/21 18:45 Nasal Secretion SARS-CoV-2 & FLU Antigen (Rapid) - Final Radiology Impression Chest X-Ray 11/29/21 19:05 IMPRESSION: Stable findings. Minimal left lower lobe fibrosis. Spinal stimulator. Left shoulder reverse arthroplasty. Electronically Signed: Kishan Barr MD, SERVANDO at 19:45 EDT , Assessment & Plan Assessment/Plan (1) Acute hyponatremia: PLAN: 1. Generalized weakness-secondary to hyponatremia-patient will be placed into observation status on MedSur, she will have IV fluids administered, labs will be monitored, she will be seen by PT and OT. #2 hyponatremia-probably from a combination of Lasix usage and excessive water intake at home-patient states that she drinks water all day long. Labs will be monitored while she was in the hospital here, again she will be given normal saline. #3 thrush-patient will be placed on nystatin swish and swallow, patient is using a Breo inhaler as an outpatient, her diabetes is not well controlled also. #4 type 2 diabetes- not well controlled, blood sugars will be monitored, sliding scale insulin will be given as needed #5 asthma-patient's steroid inhaler will be held during her stay in the hospital, she can resume Breo as an outpatient. #6 hyperlipidemia-patient is on a statin, this will be held during her hospitalization since she is probably only going to be here overnight #7 essential hypertension-patient will remain on her present blood pressure medicines with the exception of her Lasix. #8 chronic lower extremity edema-patient is currently wearing compression stockings at this time, she does not have any evidence of edema in her legs, I do not think she needs her Lasix, this will not be continued while she is in the hospital. It probably should be held when she goes home. Charges/Coding Visit Charges OBSV E&M: 85859 Initial observation care L3
[2021-11-29 22:11] VITALS: BMI 29.9
[2021-11-29 22:20] VITALS: BP 135/48; PULSE 80; RESP 16; TEMP 36.6; O2SAT 98
[2021-11-29] MEDS: 0.9% Saline Lock 10 ML Syringe IV (22:30)
[2021-11-29] MEDS: 0.9% Normal Saline 1,000 ML 100 ML IV (22:30)
[2021-11-29] MEDS: Mirtazapine 15 MG Tablet 7.5 MG PO (23:23)
[2021-11-29] MEDS: NYSTATIN 500,000 UNIT/5 ML UDC 500000 UNIT PO (23:24)
[2021-11-29] MEDS: Heparin Injection (Vial) 5,000 UNIT/ML VIAL 5000 UNIT SC (23:24)
[2021-11-29] MEDS: amLODIPine 5 MG Tablet PO (23:24)
[2021-11-29] MEDS: Insulin Lispro 100 UNIT/ML INSULN.PEN SC (23:29)
[2021-11-29 23:35] LABS: Bedside Glucose 291 mg/dL (74-106)
[2021-11-30] VITALS (10 sets, daily range): BP systolic 114–151; BP diastolic 40–73; PULSE 74–96; RESP 16–20; TEMP 36.5–36.9; O2SAT 95–99
[2021-11-30] MEDS: HYDROcodone Bitartrate/Apap 5/325 Tablet PO (03:02)
[2021-11-30 06:29] LABS: Absolute Lymphocyte Count 1.74 X10^3/uL (0.83-4.51); Absolute Neutrophil Count 8.1 X10^3/uL (2.0-7.7); Basophil% 0.8 % (0-1); Eosinophil# 0.32 X10^3/uL; Eosinophils% 2.7 % (0-5); Hemoglobin 11.3 g/dL (12.0-15.0); Lymphocyte # 1.74 X10^3/ul (0.83-4.51); Lymphocyte % 14.7 % (19-41); Mean Corp Hgb Conc 33.2 g/dL (32-36); Mean Corpuscular Hgb 33.6 pg (27.0-32.0); Mean Corpuscular Volume 101.2 fL (81-99); Mean Platelet Vol. 11.3 fl (6.2-12.0); Monocyte# 1.14 X10^3/uL; Monocyte% 9.6 % (0-10); NRBC Flagged by Analyzer 0 % (0-5); Neutrophil # 8.11 X10^3/uL (2.7-7.7); Neutrophil % 68.3 % (47-70); Platelet Count 278 K/mm3 (150-450); RBC Distribution Width CV 12.9 % (11.6-14.6); RBC Distribution Width SD 47.6 fl (35.1-43.9); Red Blood Count 3.36 M/mm3 (4.2-5.4); White Blood Count 11.9 K/mm3 (4.4-11.0)
[2021-11-30] MEDS: Levothyroxine 125 MCG Tablet PO (06:32)
[2021-11-30] MEDS: Insulin Lispro 100 UNIT/ML INSULN.PEN SC ×4 (06:35→21:49)
[2021-11-30 06:40] LABS: Bedside Glucose 236 mg/dL (74-106)
[2021-11-30 06:52] LABS: Anion Gap 8 (5-15); BUN 20 mg/dL (7-18); BUN/Creat Ratio 17.1 RATIO (10-20); Calcium,Total 8.5 mg/dL (8.5-10.1); Chloride 100 mmol/L (98-107); Creatinine, Serum 1.17 mg/dL (0.55-1.02); EST Glomerular Filtration Rate 48 mL/min (>60); Est Glom Filt Rate - Afr Amer 58 mL/min (>60); Estimated Creatinine Clearance 32.78 ml/min; Glucose 248 mg/dL (74-106); Magnesium 1.7 mg/dL (1.6-2.6); Potassium 4.2 mmol/L (3.5-5.1); Sodium Level 131 mmol/L (136-145)
--- NOTE | 2021-11-30 07:32 | PN.HOSP_ITS ---
Subjective Subjective Feels better. Had some bradycardia this AM and felt unwell. Objective Data Objective Data Vital Signs: Vital Signs Temp Pulse Resp BP Pulse Ox 36.5 C L 74 16 151/73 H 95 11/30/21 03:05 11/30/21 06:03 11/30/21 03:05 11/30/21 03:05 11/30/21 03:05 Oxygen Delivery Method Room Air Weight: 76.702 kg Body Mass Index (BMI) 29.9 Intake & Output: Intake and Output for Last 24 Hours 11/28/21 11/29/21 11/30/21 23:59 23:59 23:59 Intake Total 500 / 500 Balance 500 / 500 Lab / Micro Data Result Diagrams: 11/30/21 05:49 11/30/21 05:49 Labs: Laboratory Results - last 24 hr 11/29/21 18:45: WBC 15.7 H, RBC 3.78 L, Hgb 12.7, Hct 37.7, MCV 99.7 H, MCH 33.6 H, MCHC 33.7, RDW Std Deviation 47.0 H, RDW Coeff of Taran 12.8, Plt Count 321, MPV 10.9, Immature Gran % (Auto) 3.400 H, Neut % (Auto) 77.5 H, Lymph % (Auto) 9.9 L, [place] % (Auto) 6.8, Eos % (Auto) 1.8, Baso % (Auto) 0.6, Absolute Neuts (auto) 12.2 H, Absolute Lymphs (auto) 1.55, Nucleated RBC % 0 11/29/21 18:45: Sodium 126 L, Potassium 4.6, Chloride 92 L, Carbon Dioxide 25.0, Anion Gap 9, BUN 25 H, Creatinine 1.61 H, Estim Creat Clear Calc 24.87, Est GFR (MDRD) Af Amer 40 L, Est GFR (MDRD) Non-Af 33 L, BUN/Creatinine Ratio 15.5, Glucose 294 H, Calcium 9.0, Total Bilirubin 0.50, AST 31, ALT 40, Alkaline Phosphatase 96, Troponin I High Sens 6, Total Protein 7.1, Albumin 3.0 L, Globulin 4.1, Albumin/Globulin Ratio 0.7 L 11/29/21 18:45: B-Natriuretic Peptide 9.0 11/29/21 23:22: POC Glucose 291 H 11/30/21 05:49: WBC 11.9 H, RBC 3.36 L, Hgb 11.3 L, Hct 34.0 L, MCV 101.2 H, MCH 33.6 H, MCHC 33.2, RDW Std Deviation 47.6 H, RDW Coeff of [place]an 12.9, Plt Count 278, MPV 11.3, Immature Gran % (Auto) 3.900 H, Neut % (Auto) 68.3, Lymph % (Auto) 14.7 L, [place] % (Auto) 9.6, Eos % (Auto) 2.7, Baso % (Auto) 0.8, Absolute Neuts (auto) 8.1 H, Absolute Lymphs (auto) 1.74, Nucleated RBC % 0 11/30/21 05:49: Sodium 131 L, Potassium 4.2, Chloride 100, Carbon Dioxide 23.0, Anion Gap 8, BUN 20 H, Creatinine 1.17 H, Estim Creat Clear Calc 32.78, Est GFR (MDRD) Af Amer 58 L, Est GFR (MDRD) Non-Af 48 L, BUN/Creatinine Ratio 17.1, Glucose 248 H, Calcium 8.5, Magnesium 1.7 11/30/21 06:34: POC Glucose 236 H Micro: Microbiology 11/29/21 18:45 Nasal Secretion SARS-CoV-2 & FLU Antigen (Rapid) - Final Radiography Diagnostic Testing: Radiology Impression Chest X-Ray 11/29/21 19:05 IMPRESSION: Stable findings. Minimal left lower lobe fibrosis. Spinal stimulator. Left shoulder reverse arthroplasty. Electronically Signed: Kishan Barr MD, SERVANDO at 19:45 EDT , Physical Exam Narrative tele transient noted bradycardia possible 3rd degree HB HEENT head/scalp atraumatic Head and Scalp: normocephalic Resp normal respiratory effort, no retractions and no use of accessory muscles Cardio regular rate, regular rhythm, S1 normal heart sound and S2 normal heart sound GI normal to inspection, nondistended, normoactive bowel sounds, soft to palpation, non-tender and non-distended Extremity normal to inspection Skin no rashes or lesions noted Assessment & Plan Assessment/Plan (1) Acute hyponatremia: (2) YASMANY (acute kidney injury): PLAN: 1. Generalized weakness * likely multifactorial, though I would not completely place this on hyponatrem ia * PT OT E+T 2 hyponatremia * improved * probably from a combination of Lasix usage and excessive water intake at home- patient states that she drinks water all day long. * HLIV 3. YASMANY * resolved * likely due to overdiuresis * baseline 0.86 from 08/17/2021 * HLIV * continue to hold furosemide 4. thrush * patient will be placed on nystatin swish and swallow, * complicated by use of Breo inhaler as an outpatient and poorly controlled diabetes 5. type 2 diabetes * not well controlled, blood sugars will be monitored, sliding scale insulin will be given as needed * a1c pending * add glargine * metformin held give YASMANY 6. Bradycardia * transient * appeared 3rd degree HB * hold BB * check echo 7. Chronic conditions: * asthma-patient's steroid inhaler will be held during her stay in the hospital, she can resume Breo as an outpatient. * hyperlipidemia-patient is on a statin, this will be held during her hospi talization since she is probably only going to be here overnight * essential hypertension-patient will remain on her present blood pressure medicines with the exception of her Lasix. * chronic lower extremity edema-patient is currently wearing compression stockings at this time, she does not have any evidence of edema in her legs, I do not think she needs her Lasix, this will not be continued while she is in the hospital. It probably should be held when she goes home. 8. VTE prophylaxis: SQ heparin Charges/Coding Visit Charges Inpatient E&M: 02192 Subs Hosp L2
[2021-11-30 08:26] LABS: Hemoglobin A1c 8.5 % (3.8-5.6)
[2021-11-30] MEDS: 0.9% Normal Saline 1,000 ML 100 ML IV (08:54)
[2021-11-30] MEDS: NYSTATIN 500,000 UNIT/5 ML UDC 500000 UNIT PO ×4 (09:08→21:44)
[2021-11-30] MEDS: Pramipexole Di-HCl 0.5 MG Tablet PO (09:08)
[2021-11-30] MEDS: Famotidine 20 MG Tablet 40 MG PO (09:09)
[2021-11-30] MEDS: Heparin Injection (Vial) 5,000 UNIT/ML VIAL 5000 UNIT SC ×2 (09:09→21:38)
[2021-11-30] MEDS: Insulin Glargine-YFGN 100 UNIT/ML Pen 12 UNIT SC (11:28)
[2021-11-30 11:55] LABS: Bedside Glucose 207 mg/dL (74-106)
--- NOTE | 2021-11-30 13:42 | ECHOD_ITS ---
Reason For Study: BRADYCARDIA Procedure This was a 2D Doppler, Color Flow transthoracic echocardiogram. Exam performed in department. Left Ventricle Normal LV size. Left ventricular systolic function is normal. The estimated ejection fraction is 60 %. Stage 1 diastolic dysfunction. No regional wall motion abnormalities noted. Right Ventricle Normal RV size. Normal systolic function. Atria Normal left atrium. Normal right atrium. Mitral Valve Normal mitral valve. Tricuspid Valve Normal tricuspid valve. Aortic Valve Trisinus/trileaflet aortic valve. Pulmonic Valve Normal pulmonic valve. Great Vessels Normal aortic root. The pulmonary artery is normal size. Normal inferior vena cava. Pericardium/Pleural No pericardial effusion. MMode/2D Measurements & Calculations LVIDd: 4.3 cm IVSd: 1.3 cm Ao root diam: 2.8 cm LVIDs: 2.4 cm LVPWd: 1.0 cm FS: 44.4 % LAV(MOD-sp4): 32.2 ml LVAd ap4: 22.9 cm2 SV(MOD-sp4): 43.8 ml LVLd ap4: 7.1 cm EDV(MOD-sp4): 62.3 ml EDV(sp4-el): 62.7 ml LVAs ap4: 10.1 cm2 LVLs ap4: 4.7 cm ESV(MOD-sp4): 18.5 ml ESV(sp4-el): 18.3 ml EF(MOD-sp4): 70.2 % EF(sp4-el): 70.9 % SV(sp4-el): 44.5 ml LA A4 area: 14.3 cm2 LA dimension(2D): 3.4 cm RA A4 area: 11.0 cm2 Doppler Measurements & Calculations MV E max jakub: 90.6 cm/sec Lat Peak E' Jakub: 61.6 cm/sec Med Peak E' Jakub: 5.7 cm/sec MV A max jakub: 130.5 cm/sec E/E' lat: 1.5 E/E' med: 15.8 MV E/A: 0.69 Ao V2 max: 172.4 cm/sec PA V2 max: 123.3 cm/sec Ao max P.9 mmHg ECHO/Echo Complete Interpretation Summary Normal LV size. Left ventricular systolic function is normal. The estimated ejection fraction is 60 %. Stage 1 diastolic dysfunction. Trisinus/trileaflet aortic valve. Ordering Physician: Dusty Arana Referring Physician: Oscar Adhikari Performed By: Coby Samano RCS
[2021-11-30] MEDS: CLARIFY ORDER 1 EACH NOTE (14:27)
[2021-11-30 16:45] LABS: Bedside Glucose 249 mg/dL (74-106)
[2021-11-30] MEDS: Albuterol 2.5 MG/3 ML VIAL.NEB. INHALATION (20:34)
[2021-11-30] MEDS: Mirtazapine 15 MG Tablet 7.5 MG PO (21:42)
[2021-11-30] MEDS: amLODIPine 5 MG Tablet PO (21:43)
[2021-11-30 21:56] LABS: Bedside Glucose 222 mg/dL (74-106)
[2021-12-01 01:50] VITALS: PULSE 88
[2021-12-01 03:00] VITALS: BP 129/54; PULSE 82; RESP 16; TEMP 37; O2SAT 94
[2021-12-01 05:26] LABS: Anion Gap 8 (5-15); BUN 12 mg/dL (7-18); BUN/Creat Ratio 13.9 RATIO (10-20); Calcium,Total 8.7 mg/dL (8.5-10.1); Chloride 103 mmol/L (98-107); Creatinine, Serum 0.87 mg/dL (0.55-1.02); EST Glomerular Filtration Rate 67 mL/min (>60); Est Glom Filt Rate - Afr Amer 81 mL/min (>60); Estimated Creatinine Clearance 44.08 ml/min; Glucose 176 mg/dL (74-106); Potassium 4.1 mmol/L (3.5-5.1); Sodium Level 135 mmol/L (136-145)
[2021-12-01 05:51] VITALS: PULSE 89
[2021-12-01] MEDS: Insulin Lispro 100 UNIT/ML INSULN.PEN SC ×2 (06:34→11:42)
[2021-12-01] MEDS: Levothyroxine 125 MCG Tablet PO (06:34)
[2021-12-01 06:46] LABS: Bedside Glucose 194 mg/dL (74-106)
--- NOTE | 2021-12-01 07:03 | PN.HOSP_ITS ---
Subjective Subjective Feels better. Objective Data Objective Data Vital Signs: Vital Signs Temp Pulse Resp BP Pulse Ox 37.0 C 89 16 129/54 H 94 12/01/21 03:00 12/01/21 05:51 12/01/21 03:00 12/01/21 03:00 12/01/21 03:00 Oxygen Delivery Method Room Air Weight: 76.702 kg Body Mass Index (BMI) 29.9 Intake & Output: Intake and Output for Last 24 Hours 11/29/21 11/30/21 12/01/21 23:59 23:59 23:59 Intake Total 500 / 500 1260 / 1260 Balance 500 / 500 1260 / 1260 Lab / Micro Data Result Diagrams: 11/30/21 05:49 12/01/21 03:43 Labs: Laboratory Results - last 24 hr 11/30/21 05:49: Hemoglobin A1c 8.5 H 11/30/21 11:23: POC Glucose 207 H 11/30/21 16:29: POC Glucose 249 H 11/30/21 21:47: POC Glucose 222 H 12/01/21 03:43: Sodium 135 L, Potassium 4.1, Chloride 103, Carbon Dioxide 24.0, Anion Gap 8, BUN 12, Creatinine 0.87, Estim Creat Clear Calc 44.08, Est GFR (MDRD) Af Amer 81, Est GFR (MDRD) Non-Af 67, BUN/Creatinine Ratio 13.9, Glucose 176 H, Calcium 8.7 12/01/21 06:32: POC Glucose 194 H Micro: Microbiology 11/29/21 18:45 Nasal Secretion SARS-CoV-2 & FLU Antigen (Rapid) - Final Radiography Diagnostic Testing: Radiology Impression Echocardiogram 11/30/21 13:42 Interpretation Summary Normal LV size. Left ventricular systolic function is normal. The estimated ejection fraction is 60 %. Stage 1 diastolic dysfunction. Trisinus/trileaflet aortic valve. Ordering Physician: Dusty Arana Referring Physician: Oscar Adhikari Performed By: Coby Samano RCS Physical Exam Narrative No further bradycardia on tele. Resp normal respiratory effort, no retractions, no use of accessory muscles and clear to auscultation bilaterally Cardio regular rate, regular rhythm, S1 normal heart sound and S2 normal heart sound GI normal to inspection, nondistended, normoactive bowel sounds, soft to palpation, non-tender and non-distended Extremity normal to inspection Assessment & Plan Assessment/Plan (1) Acute hyponatremia: (2) YASMANY (acute kidney injury): PLAN: 1. Generalized weakness * likely multifactorial, though I would not completely place this on hy ponatremia * PT OT E+T 2 hyponatremia * improved * probably from a combination of Lasix usage and excessive water intake at home- patient states that she drinks water all day long. * HLIV 3. YASMANY * resolved * likely due to overdiuresis * baseline 0.86 from 08/17/2021 * HLIV * continue to hold furosemide 4. thrush * patient will be placed on nystatin swish and swallow, * complicated by use of Breo inhaler as an outpatient and poorly controlled diabetes 5. type 2 diabetes * not well controlled, blood sugars will be monitored, sliding scale insulin will be given as needed * a1c pending * add glargine * metformin held give YASMANY 6. Bradycardia * transient * upon further review, the event appeared to be a 2nd degree HB Wenckebach * hold BB * Echo shows EF of 60% with stage 1 DD. 7. Chronic conditions: * asthma-patient's steroid inhaler will be held during her stay in the hospital, she can resume Breo as an outpatient. * hyperlipidemia-patient is on a statin, this will be held during her hospitalization since she is probably only going to be here overnight * essential hypertension-patient will remain on her present blood pressure medicines with the exception of her Lasix. * chronic lower extremity edema-patient is currently wearing compression stockings at this time, she does not have any evidence of edema in her legs, I do not think she needs her Lasix, this will not be continued while she is in the hospital. It probably should be held when she goes home. 8. VTE prophylaxis: SQ heparin DC home today with [facility].
[2021-12-01 08:25] VITALS: PULSE 100
[2021-12-01 08:35] VITALS: BP 131/59; PULSE 96; RESP 16; TEMP 37.1; O2SAT 96
--- NOTE | 2021-12-01 09:22 | PCM.DC ---
Discharge Instructions Diet Discharge Diet: 1999 Calorie Control Diet Activity Discharge Activity: Return to Normal Activity Weight Bearing Status: Weight bearing as tolerated Dressing / Incision Call your doctor if you observe: Chest pain Follow Up Care Test Results: Test results from this visit will be discussed in further detail at your follow-up appointment, if applicable. Discharge Plan Admission Admit Date/Time: 11/29/21 21:57 Primary Reason for Your Visit: hyponatremia Attending Provider: Dusty Arana Primary Care Provider: Oscar Adhikari Consulting Providers: Kishan Torres Discharge Orders/Prescriptions Prescriptions: New nystatin 100,000 unit/mL Suspension 500,000 unit PO 4X/DAY 7 Days Qty: 140 RF: 0 Continued levothyroxine 125 mcg tablet 125 mcg PO DAILY RF: 0 cetirizine 10 mg tablet 10 mg PO DAILY PRN (Reason: Allergy Symptoms) RF: 0 Breo Ellipta 100-25 mcg/dose Blister With Device 1 inh INHALATION DAILY RF: 0 ferrous sulfate 325 mg (65 mg iron) Tablet 325 mg PO BID RF: 0 losartan 100 mg Tablet 100 mg PO DAILY Qty: 0 RF: 0 ropinirole 1 mg tablet 1 mg PO DAILY RF: 0 hydrocodone-acetaminophen 5-325 mg tablet 1 tab PO BID PRN (Reason: Pain) RF: 0 famotidine 40 mg tablet 40 mg PO DAILY RF: 0 amlodipine 5 mg tablet 5 mg PO QHS RF: 0 triamcinolone acetonide [Nasacort] 55 mcg Aerosol,[place] 1 spray INTRANASAL QHS RF: 0 zinc 50 mg Tablet 50 mg PO DAILY RF: 0 albuterol sulfate 90 mcg/actuation HFA aerosol inhaler 2 puff INHALATION Q6H PRN (Reason: sob) RF: 0 olmesartan 20 mg tablet 20 mg PO DAILY RF: 0 rosuvastatin 5 mg tablet 5 mg PO QHS RF: 0 mirtazapine 7.5 mg tablet 7.5 mg PO QHS RF: 0 cholecalciferol (vitamin D3) [Vitamin D3] 25 mcg (1,000 unit) Tablet 25 mcg PO DAILY RF: 0 Changed metformin 500 mg Tablet Extended Release 24 Hr 500 mg PO BIDCM Qty: 60 RF: 0 Discontinued metoprolol succinate 50 MG tablet extended release 24 hr 50 mg PO DAILY RF: 0 potassium chloride [Klor-Con M20] 20 mEq tablet,ER particles/crystals 20 meq PO DAILY RF: 0 furosemide 80 mg tablet 40 mg PO DAILY RF: 0 Referrals / Follow Up: Oscar Adhikari MD [Primary Care Provider] - Within 1 Week Disposition Disposition (needs filled in before D/C Order can be placed): Home Health Service
[2021-12-01] MEDS: Famotidine 20 MG Tablet 40 MG PO (09:33)
[2021-12-01] MEDS: Losartan Potassium 50 MG Tablet PO (09:33)
--- NOTE | 2021-12-01 09:33 | DS.PCM_ITS ---
Providers Date of Admission: 11/29/21 Primary Care Physician: Dr. Oscar Adhikari MD Reason For Visit: HYPONATREMIA-GENERALIZED WEAKNESS Diagnosis Discharge Diagnosis (1) Acute hyponatremia: Status: Acute Code(s): E87.1 - Hypo-osmolality and hyponatremia (2) YASMANY (acute kidney injury): Status: Acute Code(s): N17.9 - Acute kidney failure, unspecified (3) Bradycardia: Status: Acute Code(s): R00.1 - Bradycardia, unspecified Medications at Discharge Home Medications levothyroxine 125 mcg tablet 125 mcg PO DAILY tab 06/09/20 cetirizine 10 mg PO DAILY PRN 05/29/21 Breo Ellipta 1 inh INHALATION DAILY 07/15/21 ferrous sulfate 325 mg PO BID 07/29/21 losartan 100 mg PO DAILY #0 tab 08/14/21 albuterol sulfate 2 puff INHALATION Q6H PRN 11/29/21 amlodipine 5 mg PO QHS 11/29/21 cholecalciferol (vitamin D3) [Vitamin D3] 25 mcg PO DAILY 11/29/21 famotidine 40 mg PO DAILY 11/29/21 hydrocodone-acetaminophen 1 tab PO BID PRN 11/29/21 mirtazapine 7.5 mg PO QHS 11/29/21 olmesartan 20 mg PO DAILY 11/29/21 ropinirole 1 mg PO DAILY 11/29/21 rosuvastatin 5 mg PO QHS 11/29/21 triamcinolone acetonide [Nasacort] 1 spray INTRANASAL QHS 11/29/21 zinc 50 mg PO DAILY 11/29/21 metformin 500 mg PO BIDCM #60 tab 12/01/21 nystatin 500,000 unit PO 4X/DAY 7 Days #140 ml 12/01/21 Hospital Course Operations None Procedures 2-D Echocardiogram Summary of Care Provided Minutes Spent on Discharge: 32 Hospital Course: 1. Generalized weakness * likely multifactorial, though I would not completely place this on hyponatremia * PT OT E+T * Home health care 2 hyponatremia * improved * probably from a combination of Lasix usage and excessive water intake at home- patient states that she drinks water all day long. * Hold furosemide 3. YASMANY * resolved * likely due to overdiuresis * baseline 0.86 from 08/17/2021 * continue to hold furosemide 4. thrush * patient will be placed on nystatin swish and swallow, * complicated by use of Breo inhaler as an outpatient and poorly controlled diabetes 5. type 2 diabetes * not well controlled, blood sugars will be monitored, sliding scale insulin will be given as needed * a1c 8.5 * resume metformin and increase to BID 6. Bradycardia * transient * upon further review, the event appeared to be a 2nd degree HB Wenckebach * hold metoprolol * Echo shows EF of 60% with stage 1 DD. 7. Chronic conditions: * asthma-patient's steroid inhaler will be held during her stay in the hospital, she can resume Breo as an outpatient. * hyperlipidemia-patient is on a statin, this will be held during her hospitalization since she is probably only going to be here overnight * essential hypertension-patient will remain on her present blood pressure medicines with the exception of her Lasix. * chronic lower extremity edema-patient is currently wearing compression stocki ngs at this time, she does not have any evidence of edema in her legs, I do not think she needs her Lasix, this will not be continued while she is in the hospital. It probably should be held when she goes home. Weight / BMI Weight Weight: 76.702 kg Body Mass Index (BMI) 29.9 ABG / Lab / Microbiology Data Result Diagrams: 11/30/21 05:49 12/01/21 03:43 Laboratory: Laboratory Results - last 24 hr 11/30/21 11:23: POC Glucose 207 H 11/30/21 16:29: POC Glucose 249 H 11/30/21 21:47: POC Glucose 222 H 12/01/21 03:43: Sodium 135 L, Potassium 4.1, Chloride 103, Carbon Dioxide 24.0, Anion Gap 8, BUN 12, Creatinine 0.87, Estim Creat Clear Calc 44.08, Est GFR (MDRD) Af Amer 81, Est GFR (MDRD) Non-Af 67, BUN/Creatinine Ratio 13.9, Glucose 176 H, Calcium 8.7 12/01/21 06:32: POC Glucose 194 H Microbiology: Microbiology 11/29/21 18:45 Nasal Secretion SARS-CoV-2 & FLU Antigen (Rapid) - Final Radiography Diagnostic Testing: Radiology Impression Echocardiogram 11/30/21 13:42 Interpretation Summary Normal LV size. Left ventricular systolic function is normal. The estimated ejection fraction is 60 %. Stage 1 diastolic dysfunction. Trisinus/trileaflet aortic valve. Ordering Physician: Dusty Arana Referring Physician: Oscar Adhikari Performed By: Coby Samano RCS D/C Instructions Discharge Diet: 2000 Calorie Control Diet Weight Bearing Status: Weight bearing as tolerated Call your doctor if you observe: Chest pain Meaningful Use Info Meaningful Use Diagnoses (Choose all that apply): None applicable Discharge Plan Admission Admit Date/Time: 11/29/21 21:57 Primary Reason for Your Visit: hyponatremia Attending Provider: Dusty Arana Primary Care Provider: Oscar Adhikari Consulting Providers: Kishan Torres Discharge Orders/Prescriptions Prescriptions: New nystatin 100,000 unit/mL Suspension 500,000 unit PO 4X/DAY 7 Days Qty: 140 RF: 0 Continued levothyroxine 125 mcg tablet 125 mcg PO DAILY RF: 0 cetirizine 10 mg tablet 10 mg PO DAILY PRN (Reason: Allergy Symptoms) RF: 0 Breo Ellipta 100-25 mcg/dose Blister With Device 1 inh INHALATION DAILY RF: 0 ferrous sulfate 325 mg (65 mg iron) Tablet 325 mg PO BID RF: 0 losartan 100 mg Tablet 100 mg PO DAILY Qty: 0 RF: 0 ropinirole 1 mg tablet 1 mg PO DAILY RF: 0 hydrocodone-acetaminophen 5-325 mg tablet 1 tab PO BID PRN (Reason: Pain) RF: 0 famotidine 40 mg tablet 40 mg PO DAILY RF: 0 amlodipine 5 mg tablet 5 mg PO QHS RF: 0 triamcinolone acetonide [Nasacort] 55 mcg Aerosol,[place] 1 spray INTRANASAL QHS RF: 0 zinc 50 mg Tablet 50 mg PO DAILY RF: 0 albuterol sulfate 90 mcg/actuation HFA aerosol inhaler 2 puff INHALATION Q6H PRN (Reason: sob) RF: 0 olmesartan 20 mg tablet 20 mg PO DAILY RF: 0 rosuvastatin 5 mg tablet 5 mg PO QHS RF: 0 mirtazapine 7.5 mg tablet 7.5 mg PO QHS RF: 0 cholecalciferol (vitamin D3) [Vitamin D3] 25 mcg (1,000 unit) Tablet 25 mcg PO DAILY RF: 0 Changed metformin 500 mg Tablet Extended Release 24 Hr 500 mg PO BIDCM Qty: 60 RF: 0 Discontinued metoprolol succinate 50 MG tablet extended release 24 hr 50 mg PO DAILY RF: 0 potassium chloride [Klor-Con M20] 20 mEq tablet,ER particles/crystals 20 meq PO DAILY RF: 0 furosemide 80 mg tablet 40 mg PO DAILY RF: 0 Referrals / Follow Up: Oscar Adhikari MD [Primary Care Provider] - Within 1 Week Disposition Disposition (needs filled in before D/C Order can be placed): Home Health Service Charges/Coding Visit Charges Inpatient E&M: 46562 Disch Hosp
[2021-12-01] MEDS: Insulin Glargine-YFGN 100 UNIT/ML Pen 12 UNIT SC (09:34)
[2021-12-01] MEDS: Heparin Injection (Vial) 5,000 UNIT/ML VIAL 5000 UNIT SC (09:34)
[2021-12-01] MEDS: Pramipexole Di-HCl 0.5 MG Tablet PO (09:37)
[2021-12-01] MEDS: NYSTATIN 500,000 UNIT/5 ML UDC 500000 UNIT PO (09:37)
--- NOTE | 2021-12-01 09:51 | CASEMGMT ---
Addendum entered by Glory Gaffney 12/01/21 15:39: Late entry for 11/30/2021 RN CM in to discuss SHAH form with patient. RN JAX explained SHAH form, patient voiced understanding. Pt signed form and filed in chart. Pt provided with a copy of signed SHAH form. Patient had no further questions or concerns at this time. Original Note: Provided pt with [facility] and list of other medic alert providers per her request.
[2021-12-01 10:01] LABS: Bedside Glucose 302 mg/dL (74-106)
[2021-12-01 11:46] LABS: Bedside Glucose 250 mg/dL (74-106)
[2021-12-01 12:09] VITALS: BP 147/76; PULSE 98; TEMP 37; O2SAT 97
== END 2021-12-01 12:25 | disposition home health service (06) ==
LOC: ED 21:05 → MS3 22:19
PROVIDERS: Admitting Provider Internal Medicine; Emergency Provider Emergency Medicine; PCP Family Medicine
DX: N17.9 Acute kidney failure, unspecified (principal); E11.9 Type 2 diabetes mellitus without complications; E07.9 Disorder of thyroid, unspecified; E87.1 Hypo-osmolality and hyponatremia; R00.1 Bradycardia, unspecified; J02.9 Acute pharyngitis, unspecified; B37.0 Candidal stomatitis; E78.5 Hyperlipidemia, unspecified; Z79.84 Long term (current) use of oral hypoglycemic drugs; I10 Essential (primary) hypertension; Z79.899 Other long term (current) drug therapy; Z79.890 Hormone replacement therapy; J45.909 Unspecified asthma, uncomplicated; K21.9 Gastro-esophageal reflux disease without esophagitis; R60.0 Localized edema; R06.02 Shortness of breath
CPT/HCPCS: 36415; 71045; 80048; 80053; 82962; 83036; 83735; 83880; 84484; 85025; 87428; 93005; 93306; 94640; 96360; 96361; 96372; 97162; 97166; 97530; 99218; 99284; J7030; Q9957; A4216; G0378

== ENCOUNTER → 2021-12-16 | Outpatient (CLI) | payer MEDICARE, SELFPAY ==
--- NOTE | 2021-12-16 14:47 | RAD_ITS ---
STUDY: X-RAY CHEST REASON FOR EXAM: Female, 76 years old. COUGH TECHNIQUE: XR Chest 2 Views COMPARISON: 11.29.21 FINDINGS: There is no demonstrated pleural abnormality. Total left shoulder arthroplasty. Loop recorder noted. Metallic leads in the spinal canal may suggest spinal stimulator leads. Normal size heart. Normal mediastinum and nasrin. Normal visualized pulmonary arteries. There is atherosclerotic calcification of the aortic arch with tortuosity. There are diffuse degenerative changes of the visualized thoracic spine. There is degenerative osteoarthritis of the bilateral shoulders. There is no demonstrated abnormality of the visualized soft tissue structures of the upper abdomen. RAD/Chest PA and Lateral IMPRESSION: There are no acute findings. Electronically Signed: Jesús Hayden MD at 15:01 EDT ,
[2021-12-16 17:54] LABS: Hematocrit 36.2 % (37-47); Hemoglobin 11.7 g/dL (12.0-15.0); Mean Corp Hgb Conc 32.3 g/dL (32-36); Mean Corpuscular Hgb 33.4 pg (27.0-32.0); Mean Corpuscular Volume 103.4 fL (81-99); Mean Platelet Vol. 11.3 fl (6.2-12.0); Platelet Count 302 K/mm3 (150-450); RBC Distribution Width CV 13.9 % (11.6-14.6); RBC Distribution Width SD 52.8 fl (35.1-43.9); White Blood Count 19.3 K/mm3 (4.4-11.0)
== END | disposition home or self-care (01) ==
PROVIDERS: PCP Family Medicine; Referring Provider Family Medicine; Visit Provider Family Medicine
DX: R05.9 Cough, unspecified (principal)
CPT/HCPCS: 36415; 71046; 85027

== ENCOUNTER → 2022-05-10 | Outpatient (CLI) | payer MEDICARE, SELFPAY ==
--- NOTE | 2022-05-10 15:43 | MRI_ITS ---
EXAM: MR RIGHT UPPER EXTREMITY WITHOUT INTRAVENOUS CONTRAST, SHOULDER CLINICAL INDICATION: RT SHOULDER BICIPITAL TENDINITIS,OSTEOARTHRITIS,SYNOVITIS TECHNIQUE: Multiplanar and multisequence MR images of the right shoulder without intravenous contrast. This report was created using [employer] report Multigig technology. COMPARISON: None. FINDINGS: Full thickness full width tearing of the supraspinatus and infraspinatus tendons with retraction of the thickened torn fibers to at least the level of the joint line. Subscapularis and teres minor tendons are intact. Long head biceps tendon is not well seen within the bicipital groove. Cannot exclude tear or disruption with retraction. Moderate to severe hypertrophic degenerative changes of the acromioclavicular joint with mass effect on the overlying soft tissues. No concerning marrow signal alterations. Diffuse deltoid muscle edema. No abnormal fluid collections. Question focal chondral or chondral labral defect at the base of the the anterior superior labrum. This can be better assessed with MR arthrography. No other definite labral tearing. Atrophy of the supraspinatus and infraspinatus muscles indicate chronic nature of the full thickness tear involving the supraspinatus and infraspinatus tendon. MRI/Upper Ext Joint Only(Routine) IMPRESSION: 1. Full thickness full width tearing of the supraspinatus and infraspinatus tendons with retraction of the thickened torn fibers to at least the level of the joint line. 2. Long head biceps tendon is not well seen within the bicipital groove. Cannot exclude tear or disruption with retraction. 3. Moderate to severe hypertrophic degenerative changes of the acromioclavicular joint with mass effect on the overlying soft tissues. 4. Question focal chondral or chondral labral defect at the base of the the anterior superior labrum. This can be better assessed with MR arthrography. Electronically Signed: Saeid Ann MD at 3:19 EDT ,
== END | disposition home or self-care (01) ==
LOC: MRI 15:31
PROVIDERS: PCP Family Medicine; Visit Provider Specialist
DX: M75.21 Bicipital tendinitis, right shoulder (principal); M19.011 Primary osteoarthritis, right shoulder; M65.811 Other synovitis and tenosynovitis, right shoulder
CPT/HCPCS: 73221

== ENCOUNTER → 2022-05-26 | Outpatient (CLI) | payer MEDICARE, SELFPAY ==
--- NOTE | 2022-05-26 13:47 | CT_ITS ---
EXAM: CT RIGHT UPPER EXTREMITY WITHOUT INTRAVENOUS CONTRAST CLINICAL INDICATION: OSTEOARTHRITIS TECHNIQUE: Helically acquired images were obtained of the right upper extremity without intravenous contrast. 2-D reformats were performed by the technologist. CTDIvol = ( 19.26 ) mGy, DLP = ( 480.37 ) mGycm This CT exam was performed using one or more of the following dose reduction techniques: automated exposure control, adjustment of the mA and/or kV according to patient size, and/or use of iterative reconstruction technique. This report was created using [email or web address] report POPSUGAR technology. COMPARISON: May 10, 2022 FINDINGS: Evidence of glenohumeral instability with anterior subluxation of the humeral head relative to glenoid and widening of the posterior aspect of the glenohumeral articulation. Multilevel spine degenerative changes. Moderate to severe hypertrophic degenerative changes of acromioclavicular joint. Prominent atherosclerotic calcifications of the distal common carotid artery/carotid bulb region. No suspicious soft tissue masses or fluid collections. CT/Extremity Upper without Contra IMPRESSION: 1. Evidence of glenohumeral instability with anterior subluxation of the humeral head relative to glenoid and widening of the posterior aspect of the glenohumeral articulation. 2. Moderate to severe hypertrophic degenerative changes of the acromioclavicular joint. Electronically Signed: Saeid Ann MD at 22:17 EST ,
--- NOTE | 2022-06-23 12:17 | HP.PCM_ITS ---
HPI - General HPI Narrative History and Physical? Patient Name: Kyleigh Strickland : 1945 From:? ANAIS ANDRES PA-C? DATE OF SURGERY:? 07/06/2022 SCHEDULED PROCEDURE: right reverse total shoulder arthroplasty HISTORY OF PRESENT ILLNESS: Patient is a 76-year-old female with a chief complaint of right shoulder pain. She is right hand dominant. Patient complains of aching pain with 2 week duration with no known injury. The pain is 9 on a scale of 10. The pain is increased with overhead motion. The pain is located over the anterior shoulder. She denies numbness and tingling. The patient states that the pain does awaken them at night. Activity modification include a reduced ability to perform normal activity without pain including getting dressed. The patient does perceive that the affected arm is limited in motion compared to the contralateral side. Previous treatments include [id number] medications at home and supplements as well as activity modifications, cortisone injections and physical therapy.? REVIEW OF SYSTEMS: Review Of Systems: Constitutional: Denies anorexia, anxiety, change in appetite, fever and weight change,hard of hearing, and vision problems. Cardiovasular: Denies chest pain, heart murmur, irregular heartbeat and peripheral vascular disease. Respiratory: Reports asthma, but denies cough, pneumonia, sleep apnea, shortness of breath, tuberculosis and wheezing. Gastrointestinal: Denies constipation, diarrhea, heartburn, nausea, bloody stools and vomiting, and difficulty swallowing. Genitourinary: . (F Genital Sx) Denies incontinence. Musculoskeletal: Reports pain, trouble walking and weakness, but denies leg swelling and limp. Skin: Denies Raynaud's, history of shingles and tattoo. Neurological: Denies ambulatory dysfunction, dizziness, numbness/tingling and tremor. Psychiatric: Denies anxiety, depression, insomnia, mental illness and stress. Hematologic/Lymphatic: Denies anemia, bleeding/bruising tendency and past transfusion. Reviewed, no changes. PAST MEDICAL HISTORY: Advance Care Plan: Other Directive, LIVING WILL Effective Date: 04/01/2021 Other Directive, POA Effective Date: 04/01/2021 Past Medical History: Medical Problems: High Blood Pressure, Arthritis, Asthma, Hypercholesterolemia, Diabetes Accidents: Fracture - LT ANKLE? Fracture - (01/2021) RT HIP FX Surgical Hx: Appendectomy, Hysterectomy, LT CTR, RT CTR Facet Rhizotomy - (11/12/2010) CAR @ [facility] Shoulder Arthroscopy LT - (10/14/2005) [email or web address] Hip Replacement RT - (01/21/2021) SAW @ [facility] Left Reverse Shoulder Replacement - (07/29/2021) SAW @ [facility] Anesthesia Complications: Nausea, Vomiting Assistive Devices: Glasses, Dentures Reviewed, no changes. SOCIAL HISTORY: Social History: Marital: .Occupation: Retired.Work Status: Retired.Hand Dominance: Right- handed. Personal Habits:? Cigarette Use: Never.Smokeless Tobacco: Never Used Smokeless Tobacco.E-Cigarette Use: Never used.Alcohol: Occasionally.Drug Use: Denies Use.Enjoy Exercising: Exercises 1-3 X/Week. Reviewed and updated. VITALS: Ht: 64 Wt: 168lb Wt k.205 BMI: 28.8 ALLERGIES: tylenol with cod Codeine Phosphate? MEDICATIONS: Ativan 1 mg 1 tab by mouth 1/2 hour prior to mri, [place] 5-325 mg 1 by mouth every 6 hours, Cetirizine HCL 10 mg daily, Metformin HCL ER 500 mg daily, Breo Ellipta 100-25 mcg/Inh daily, Levothyroxine Sodium 125 mcg daily, Albuterol Sulfate HFA 108 (90 Base) mcg/Act every 6 hours as needed, Multi Vitamin Daily? 1/day by mouth, Mirtazapine 7.5 mg 1 by mouth every day, Olmesartan Medoxomil 20 mg 1po qday, Amlodipine Besylate 5 mg 1 by mouth every day, Zinc 50 mg 1 PO qdaily, Triamcinolone Acetonide 55 mcg/Act 2 sprays each nostril daily as needed, Rosuvastatin Calcium 5 mg 1 by mouth every day, Fluticasone Nasal [place]? as directed, Famotidine 40 mg 1 by mouth every day, Vitamin D3 25 mcg (1000 Ut) 2 by mouth every day, Losartan Potassium 100 mg 1 by mouth every day, Nystatin 303002 Unit/ML swish 5 milliliters in mouth for several minutes, then swallow (or expectorate) 4 times d, Ropinirole HCL 1 mg 1 PO qdaily PRE-OP EXAM:? General appearance:NORMAL? ? ? Other: Eyes: Conjunctivae and lids: NORMAL? Pupils: ERR Ears, Nose, Mouth, and Throat: NORMAL? Other: Inspection of lips, teeth and gums: NORMAL? ?Other: Neck: Examination of neck: no masses noted. Respiratory: Assessment of respiratory effort: NORMAL? ?Other: ?Auscultation of lungs: clear to auscultation no wheezes, rhonchi or rales. Cardiovascular:? Auscultation of heart: regular rate and rhythm, no murmurs, gallops or rubs. Exam of carotid arteries: NORMAL? ?Other: Gastrointestinal:? Exam of abdomen: soft, nontender, nondistended bowel sounds present. Lymphatic:? Palpation of nodes in neck:? NORMAL? ? ?Other: ? Palpation of nodes in Axillae: NORMAL? ?Other: Neurological: see below Psychiatric:? Orientation to time, place and person: NORMAL? ? ?Other: ?Mood and affect: NORMAL? ?Other: PHYSICAL EXAMINATION: ?Exam: Const: Appears healthy.? No signs of apparent distress present.? Alert and oriented x 3.? Musculo: Shoulders: ?Insp/Palp: Right shoulder: pain along biceps tendon and coracoid process. Crepitus with motion. Positive Speed's test. Positive Neer's and Horton'. Forward elevation 125 degrees actively, passively to 140 degrees on the right, 140 degrees on the left, external rotation 20 degrees on the left, neutral on the right, internal rotation to gluteus on the left, belt line on the right. Supraspinatus strength 5/5 bilaterally. Internal rotation 5/5, 4/5 external rotation bilaterally?? Skin: Skin is warm and dry.? Neuro: Sensation to light touch is intact in the left upper extremity axillary, upper extremity median, upper extremity radial, upper extremity ulnar nerve distribution. Sensation to light touch is intact in the right upper extremity axillary, upper extremity median, upper extremity radial and upper extremity ulnar nerve distribution.? ? IMAGING STUDIES: 3 views of the right shoulder true AP, scapula-Y, and axillary views reviewed reveal no acute fractures or bony lesions.? Well aligned glenohumeral joint.? Well aligned, clavicular joint.? There is evidence of subacromial impingement with sclerosis on the undersurface of the acromion and lateral greater tuberosity.? Additionally there is evidence of mild glenohumeral joint space narrowing consistent with glenohumeral arthritis. IMPRESSION: 1. rotator cuff insufficiency with osteoarthritis.? 2. High Blood Pressure 3. Arthritis, 4. Asthma 5. Hypercholesterolemia 6.? Diabetes PLAN: Patient denies history of DVT or PE, open wounds or sores over the body, no allergies to antibiotics and no current antibiotic use. No current dental issues Aspirin 81 twice a day ?2 weeks for DVT prophylaxis postoperatively At this time patient has consented to proceed with a right reverse total shoulder arthroplasty.? Dr. Lomax did discuss and review with the patient all treatment options including surgical versus nonsurgical options.? Patient does wish to proceed with the above-stated procedure.? Potential risk, benefits, and complications of the procedure were discussed in detail including but not limited to , infection, nerve and blood vessel damage, persistent pain, numbness, tingling, paresthesias, blood clot, pulmonary embolism, and requirement for possible further surgery.? The patient expressed full understanding and has no further questions for the doctor.? Patient does agree to proceed with the above-stated procedure and has signed the surgery consent form. I have reviewed the [place] Automated Rx Reporting System (OARRS) report for this patient for refill pattern and other prescriber involvement as part of the appropriate surveillance for the provision of acute and chronic controlled medications.? The report was requested and reviewed on the date of this entry and was considered in the prescribing process. Discussed with the patient the risks associated with the COVID-19 virus including the risk of exposure while at the hospital.? The patient was reassured local hospitals have low infection rates and taken all necessary precautions to limit patient exposure to COVID-19.? Limiting the patient's time in the hospital may decrease their exposure to COVID-19.? The patient was notified that we will need to comply with any screening or testing the hospital wishes to perform and that surgery may be delayed for any positive test results. ___? I have re-examined the patient.? There are no clinical changes since date of exam. ___? See progress notes for changes. ___? Dictated on admission [facility] Medical History Allergic rhinitis Anxiety Asthma B12 deficiency Bilateral sacral insufficiency fracture with delayed healing Bleeding tendency Bradycardia Cataracts, bilateral Chronic back pain Chronic low back pain Chronic pain Debility Diabetes mellitus Easy bruising Essential hypertension Gastroesophageal reflux disease History of colon polyps History of edema History of rheumatic fever Hyperlipidemia Hypothyroidism Injury of head and neck Intractable low back pain Leg cramps Leukocytosis Localized edema Lumbar spinal stenosis Muscle tenderness Non-smoker Osteoarthritis Other acute postprocedural pain Post-menopausal Restless leg syndrome Right lumbar radiculopathy RLS (restless legs syndrome) Seasonal allergies Shortness of breath on exertion Strain of muscle of right hip Thyroid disease Type 2 diabetes mellitus Vasovagal syncope Vitamin B12 deficiency Wears dentures Wears glasses Home Medications cetirizine 10 mg tablet 10 mg PO DAILY PRN Allergy Symptoms 05/29/21 [History Last Taken Unknown] fluticasone furoate 100 mcg-vilanterol 25 mcg/dose inhalation powder (Breo Ellipta) 1 inh inhalation DAILY SOB 07/15/21 [History Last Taken 08/06/21] ferrous sulfate 325 mg (65 mg iron) tablet 325 mg PO BID Supplement 07/29/21 [History Last Taken 08/06/21] albuterol sulfate 90 mcg/actuation aerosol inhaler 2 puff inhalation Q6H PRN sob 11/29/21 [History Last Taken Unknown] cholecalciferol (vitamin D3) 25 mcg (1,000 unit) tablet (Vitamin D3) 25 mcg PO DAILY 11/29/21 [History Last Taken Unknown] famotidine 40 mg tablet 40 mg PO DAILY 11/29/21 [History Last Taken Unknown] hydrocodone-acetaminophen 5-325mg 5mg-325mg 1 tab PO BID PRN Pain 11/29/21 [History Last Taken Unknown] mirtazapine 7.5 mg tablet 7.5 mg PO QHS 11/29/21 [History Last Taken Unknown] olmesartan 20 mg tablet 20 mg PO DAILY 11/29/21 [History Last Taken Unknown] ropinirole 1 mg tablet 1 mg PO DAILY 11/29/21 [History Last Taken Unknown] rosuvastatin 5 mg tablet 5 mg PO QHS 11/29/21 [History Last Taken Unknown] triamcinolone acetonide 55 mcg nasal spray aerosol (Nasacort) 1 spray intranasal QHS 11/29/21 [History Last Taken Unknown] zinc 50 mg tablet 50 mg PO DAILY 11/29/21 [History Last Taken Unknown] metformin 500 mg tablet,extended release 24 hr 500 mg PO BIDCM Glucose #60 tabs 12/01/21 [Rx Last Taken Unknown] amlodipine 10 mg tablet 10 mg PO QHS #90 tabs 03/24/22 [Rx Last Taken Unknown] levothyroxine 137 mcg capsule 137 mcg PO DAILY 03/24/22 [History Last Taken Unknown] Allergy/AdvReac Type Severity Reaction Status Date / Time clindamycin Allergy Mild rash Verified 03/24/22 10:31 codeine phosphate AdvReac Severe Nausea Verified 03/24/22 10:31 [From Tylenol-Codeine #3] Family History Mother Heart valve disorder Hypertension Heart disease Father Pneumococcal pneumonia CVA (cerebral vascular accident) Heart disease Myocardial infarction Surgical History History of appendectomy History of bilateral carpal tunnel release History of cardiac catheterization History of carpal tunnel release History of colonoscopy (2012) History of hysterectomy History of loop recorder (2012) history of pain stimulator History of total right hip replacement Hx of decompressive lumbar laminectomy Hx of lumbar discectomy Hx of tonsillectomy Hx of total hip arthroplasty Status post reverse total arthroplasty of left shoulder Social History household members: none housing: apartment number of children: 2 current occupational status: retired current occupational exposures/hazards: No pets and animals: No leisure activities: exercise and volunteer work Smoking Status: Never smoker
== END | disposition home or self-care (01) ==
LOC: CT 13:45
PROVIDERS: PCP Family Medicine; Visit Provider Specialist
DX: M19.011 Primary osteoarthritis, right shoulder (principal)
CPT/HCPCS: 73200

== ENCOUNTER → 2022-06-28 | Outpatient (CLI) | payer MEDICARE, SELFPAY ==
[2022-06-28 18:20] LABS: Amphetamine Urine VISTA NEGATIVE (<1000 ng/mL); Barbiturate Urine VISTA NEGATIVE (< 200 ng/mL); Benzodiazepine Urine VISTA NEGATIVE (< 200 ng/mL); Cocaine Urine VISTA NEGATIVE (< 300 ng/mL); Ecstacy Urine VISTA NEGATIVE (< 500 ng/mL); Methadone Urine VISTA NEGATIVE (< 300 ng/mL); PCP Urine VISTA NEGATIVE (< 25 ng/mL); THC Urine VISTA NEGATIVE (< 50 ng/mL); Vista UDS pH Range 4
== END | disposition home or self-care (01) ==
LOC: LAB 13:48
PROVIDERS: PCP Family Medicine; Referring Provider Anesthesiology Pain Medicine; Visit Provider Anesthesiology Pain Medicine
DX: F11.20 Opioid dependence, uncomplicated (principal)
CPT/HCPCS: 80307

== ENCOUNTER → 2022-07-30 | Outpatient (CLI) | payer MEDICARE, SELFPAY ==
[2022-07-30 15:31] LABS: Hematocrit 40.3 % (37-47); Hemoglobin 12.8 g/dL (12.0-15.0); Mean Corp Hgb Conc 31.8 g/dL (32-36); Mean Corpuscular Hgb 33.9 pg (27.0-32.0); Mean Corpuscular Volume 106.6 fL (81-99); Mean Platelet Vol. 11.1 fl (6.2-12.0); Platelet Count 356 K/mm3 (150-450); RBC Distribution Width CV 12.9 % (11.6-14.6); RBC Distribution Width SD 50.7 fl (35.1-43.9); Red Blood Count 3.78 M/mm3 (4.2-5.4); White Blood Count 10.2 K/mm3 (4.4-11.0)
== END | disposition home or self-care (01) ==
PROVIDERS: PCP Family Medicine; Visit Provider Internal Medicine Pulmonary Disease
DX: R05.9 Cough, unspecified (principal); R06.02 Shortness of breath; J45.909 Unspecified asthma, uncomplicated
CPT/HCPCS: 36415; 85027

== ENCOUNTER → 2022-08-25 | Outpatient (CLI) | payer MEDICARE, SELFPAY ==
[2022-08-25 17:51] LABS: Absolute Lymphocyte Count 1.67 X10^3/uL (0.83-4.51); Absolute Neutrophil Count 11.2 X10^3/uL (2.0-7.7); Basophil# 0.11 X10^3/uL; Basophil% 0.8 % (0-1); Eosinophil# 0.54 X10^3/uL; Eosinophils% 3.7 % (0-5); Hematocrit 39.4 % (37-47); Hemoglobin 12.7 g/dL (12.0-15.0); Lymphocyte # 1.67 X10^3/ul (0.83-4.51); Lymphocyte % 11.4 % (19-41); Mean Corp Hgb Conc 32.2 g/dL (32-36); Mean Corpuscular Hgb 33.5 pg (27.0-32.0); Mean Platelet Vol. 12.2 fl (6.2-12.0); Monocyte% 6.9 % (0-10); NRBC Flagged by Analyzer 0 % (0-5); Neutrophil # 11.18 X10^3/uL (2.7-7.7); Neutrophil % 76.6 % (47-70); Platelet Count 298 K/mm3 (150-450); RBC Distribution Width CV 12.7 % (11.6-14.6); RBC Distribution Width SD 48.4 fl (35.1-43.9); Red Blood Count 3.79 M/mm3 (4.2-5.4); White Blood Count 14.6 K/mm3 (4.4-11.0)
[2022-08-25 18:04] LABS: Erythrocyte Sedimentation Rate 22 mm/hr (0-30)
[2022-08-25 18:58] LABS: Vitamin B12 334 pg/mL (211-911)
[2022-08-25 19:13] LABS: ALB/GLOB Ratio 0.9 RATIO (0.9-2.4); AST(SGOT) 22 U/L (15-37); Alanine Aminotransfer ALT/SGPT 23 U/L (13-56); Albumin, Serum 3.3 g/dL (3.2-5.0); Alkaline Phosphatase 88 U/L (45-117); Anion Gap 10 (5-15); BUN 14 mg/dL (7-18); BUN/Creat Ratio 12.1 RATIO (10-20); Calcium,Total 9.4 mg/dL (8.5-10.1); Chloride 100 mmol/L (98-107); Creatinine, Serum 1.16 mg/dL (0.55-1.02); EST Glomerular Filtration Rate 48 mL/min (>60); Est Glom Filt Rate - Afr Amer 58 mL/min (>60); Globulin 3.8 g/dL (2.2-4.2); Glucose 119 mg/dL (74-106); Potassium 3.8 mmol/L (3.5-5.1); Protein, Total 7.1 g/dL (6.4-8.2); Sodium Level 137 mmol/L (136-145)
== END | disposition home or self-care (01) ==
LOC: MFPLAB 15:47
PROVIDERS: PCP Family Medicine; Visit Provider Family Medicine
DX: R53.1 Weakness (principal); E03.9 Hypothyroidism, unspecified; E53.8 Deficiency of other specified B group vitamins; R53.83 Other fatigue
CPT/HCPCS: 36415; 80053; 82607; 84443; 85025; 85652

== ENCOUNTER → 2023-01-10 | Outpatient (CLI) | payer MEDICARE, SELFPAY ==
[2023-01-10 16:52] LABS: Absolute Neutrophil Count 6.9 X10^3/uL (2.0-7.7); Basophil# 0.08 X10^3/uL; Basophil% 0.8 % (0-1); Eosinophil# 0.42 X10^3/uL; Eosinophils% 4.1 % (0-5); Hematocrit 37.1 % (37-47); Hemoglobin 11.8 g/dL (12.0-15.0); Lymphocyte % 17.5 % (19-41); Mean Corp Hgb Conc 31.8 g/dL (32-36); Mean Corpuscular Hgb 33.5 pg (27.0-32.0); Mean Corpuscular Volume 105.4 fL (81-99); Mean Platelet Vol. 11.8 fl (6.2-12.0); Monocyte# 1.06 X10^3/uL; Monocyte% 10.3 % (0-10); NRBC Flagged by Analyzer 0 % (0-5); Neutrophil # 6.87 X10^3/uL (2.7-7.7); Neutrophil % 66.6 % (47-70); Platelet Count 314 K/mm3 (150-450); RBC Distribution Width CV 12.5 % (11.6-14.6); RBC Distribution Width SD 48.7 fl (35.1-43.9); Red Blood Count 3.52 M/mm3 (4.2-5.4); White Blood Count 10.3 K/mm3 (4.4-11.0)
[2023-01-10 17:08] LABS: Vitamin B12 228 pg/mL (211-911); Vitamin D,25 Hydroxy 36.4 ng/mL
[2023-01-10 17:11] LABS: Hemoglobin A1c 5.7 % (3.8-5.6)
[2023-01-10 17:14] LABS: Microalbumin,Random Urine 11.5 mg/L (NO RANGE EST.); Microalbumin:Creatinine Ratio 15.9 mg/g CRE (<30 mg/g CRE)
[2023-01-10 17:20] LABS: AST(SGOT) 24 U/L (15-37); Alanine Aminotransfer ALT/SGPT 34 U/L (13-56); Albumin, Serum 3.7 g/dL (3.2-5.0); Alkaline Phosphatase 99 U/L (45-117); Anion Gap 3 (5-15); BUN 13 mg/dL (7-18); BUN/Creat Ratio 13.8 RATIO (10-20); Calcium,Total 9.7 mg/dL (8.5-10.1); Chloride 105 mmol/L (98-107); Cholesterol 150 mg/dL (200); Creatinine, Serum 0.94 mg/dL (0.55-1.02); EST Glomerular Filtration Rate 61 mL/min (>60); Est Glom Filt Rate - Afr Amer 73 mL/min (>60); Globulin 3.6 g/dL (2.2-4.2); Glucose 95 mg/dL (74-106); High Density Lipoprotein 34 mg/dL; Potassium 5.2 mmol/L (3.5-5.1); Protein, Total 7.3 g/dL (6.4-8.2); Sodium Level 132 mmol/L (136-145); Thyroid Stim Hormone (TSH) 0.09 uIU/mL (0.358-3.74); Triglycerides 235 mg/dL; Very Low Density Lipoprotein 47 mg/dL (5-40)
== END | disposition home or self-care (01) ==
LOC: BIMLAB 14:53
PROVIDERS: PCP Internal Medicine; Referring Provider Internal Medicine; Visit Provider Internal Medicine
DX: E78.5 Hyperlipidemia, unspecified (principal); E11.9 Type 2 diabetes mellitus without complications; I10 Essential (primary) hypertension; D75.89 Other specified diseases of blood and blood-forming organs; E55.9 Vitamin D deficiency, unspecified
CPT/HCPCS: 36415; 80053; 80061; 82043; 82306; 82570; 82607; 82746; 83036; 84443; 85025

== ENCOUNTER → 2023-01-18 | Outpatient (CLI) | payer MEDICARE, SELFPAY ==
[2023-01-18 12:53] LABS: Anion Gap 6 (5-15); BUN 25 mg/dL (7-18); BUN/Creat Ratio 25.9 RATIO (10-20); Calcium,Total 9.5 mg/dL (8.5-10.1); Chloride 111 mmol/L (98-107); Creatinine, Serum 0.97 mg/dL (0.55-1.02); EST Glomerular Filtration Rate 59 mL/min (>60); Est Glom Filt Rate - Afr Amer 72 mL/min (>60); Glucose 101 mg/dL (74-106); Potassium 4.3 mmol/L (3.5-5.1); Sodium Level 139 mmol/L (136-145)
== END | disposition home or self-care (01) ==
LOC: BIMLAB 08:48
PROVIDERS: PCP Internal Medicine; Visit Provider Internal Medicine
DX: I10 Essential (primary) hypertension (principal)
CPT/HCPCS: 36415; 80048

== ENCOUNTER → 2023-04-13 | Outpatient (CLI) | payer MEDICARE, SELFPAY ==
[2023-04-13 18:16] LABS: Thyroid Stim Hormone (TSH) 0.74 uIU/mL (0.358-3.74)
== END | disposition home or self-care (01) ==
LOC: BIMLAB 14:32
PROVIDERS: PCP Internal Medicine; Referring Provider Internal Medicine; Visit Provider Internal Medicine
DX: E03.9 Hypothyroidism, unspecified (principal)
CPT/HCPCS: 36415; 84443

== ENCOUNTER → 2023-04-28 | Outpatient (CLI) | payer MEDICARE, SELFPAY ==
[2023-04-28 16:46] LABS: Absolute Lymphocyte Count 2.03 X10^3/uL (0.83-4.51); Absolute Neutrophil Count 8.6 X10^3/uL (2.0-7.7); Basophil# 0.12 X10^3/uL; Eosinophil# 0.22 X10^3/uL; Eosinophils% 1.8 % (0-5); Hematocrit 37.1 % (37-47); Hemoglobin 11.4 g/dL (12.0-15.0); Lymphocyte # 2.03 X10^3/ul (0.83-4.51); Lymphocyte % 16.9 % (19-41); Mean Corp Hgb Conc 30.7 g/dL (32-36); Mean Corpuscular Hgb 33.3 pg (27.0-32.0); Mean Corpuscular Volume 108.5 fL (81-99); Mean Platelet Vol. 11.1 fl (6.2-12.0); Monocyte# 0.95 X10^3/uL; Monocyte% 7.9 % (0-10); NRBC Flagged by Analyzer 0 % (0-5); Neutrophil # 8.63 X10^3/uL (2.7-7.7); Neutrophil % 71.7 % (47-70); Platelet Count 278 K/mm3 (150-450); RBC Distribution Width SD 55.8 fl (35.1-43.9); Red Blood Count 3.42 M/mm3 (4.2-5.4)
[2023-04-28 17:24] LABS: Anion Gap 6 (5-15); BUN 22 mg/dL (7-18); BUN/Creat Ratio 21.4 RATIO (10-20); Calcium,Total 9.2 mg/dL (8.5-10.1); Chloride 107 mmol/L (98-107); Creatinine, Serum 1.03 mg/dL (0.55-1.02); EST Glomerular Filtration Rate 55 mL/min (>60); Est Glom Filt Rate - Afr Amer 66 mL/min (>60); Glucose 155 mg/dL (74-106); Potassium 4.6 mmol/L (3.5-5.1); Sodium Level 139 mmol/L (136-145); Thyroid Stim Hormone (TSH) 2.27 uIU/mL (0.358-3.74)
[2023-04-29 07:47] LABS: Vitamin B12 362 pg/mL (211-911)
== END | disposition home or self-care (01) ==
LOC: BIMLAB 15:59
PROVIDERS: PCP Internal Medicine; Referring Provider Internal Medicine; Visit Provider Internal Medicine
DX: R20.2 Paresthesia of skin (principal)
CPT/HCPCS: 36415; 80048; 82607; 84443; 85025

== ENCOUNTER → 2023-05-26 | Outpatient (CLI) | payer MEDICARE, SELFPAY ==
[2023-05-26 16:52] LABS: Amphetamine Urine VISTA NEGATIVE (<1000 ng/mL); Barbiturate Urine VISTA NEGATIVE (< 200 ng/mL); Benzodiazepine Urine VISTA NEGATIVE (< 200 ng/mL); Cocaine Urine VISTA NEGATIVE (< 300 ng/mL); Ecstacy Urine VISTA NEGATIVE (< 500 ng/mL); Methadone Urine VISTA NEGATIVE (< 300 ng/mL); PCP Urine VISTA NEGATIVE (< 25 ng/mL); THC Urine VISTA NEGATIVE (< 50 ng/mL); Vista UDS pH Range 6
== END | disposition home or self-care (01) ==
LOC: LAB 15:02
PROVIDERS: PCP Internal Medicine; Referring Provider Anesthesiology Pain Medicine; Visit Provider Anesthesiology Pain Medicine
DX: F11.23 Opioid dependence with withdrawal (principal)
CPT/HCPCS: 80307

== ENCOUNTER → 2023-06-06 | Outpatient (CLI) | payer MEDICARE, SELFPAY ==
[2023-06-06 15:09] LABS: Erythrocyte Sedimentation Rate 17 mm/hr (0-30)
[2023-06-06 15:11] LABS: Absolute Lymphocyte Count 1.82 X10^3/uL (0.83-4.51); Absolute Neutrophil Count 8.3 X10^3/uL (2.0-7.7); Basophil# 0.09 X10^3/uL; Basophil% 0.8 % (0-1); Eosinophil# 0.37 X10^3/uL; Eosinophils% 3.1 % (0-5); Hematocrit 39.2 % (37-47); Hemoglobin 12.8 g/dL (12.0-15.0); Lymphocyte # 1.82 X10^3/ul (0.83-4.51); Lymphocyte % 15.3 % (19-41); Mean Corp Hgb Conc 32.7 g/dL (32-36); Mean Corpuscular Hgb 34.6 pg (27.0-32.0); Mean Corpuscular Volume 105.9 fL (81-99); Monocyte# 1.23 X10^3/uL; Monocyte% 10.3 % (0-10); NRBC Flagged by Analyzer 0 % (0-5); Neutrophil # 8.28 X10^3/uL (2.7-7.7); Neutrophil % 69.6 % (47-70); Platelet Count 315 K/mm3 (150-450); RBC Distribution Width CV 13.2 % (11.6-14.6); RBC Distribution Width SD 51.8 fl (35.1-43.9); White Blood Count 11.9 K/mm3 (4.4-11.0)
[2023-06-06 15:38] LABS: CRP 5.01 mg/L (0.0-3.0)
== END | disposition home or self-care (01) ==
LOC: LAB 14:38
PROVIDERS: PCP Internal Medicine; Referring Provider Physician Assistant Surgical; Visit Provider Physician Assistant Surgical
DX: S40.012D Contusion of left shoulder, subsequent encounter (principal)
CPT/HCPCS: 36415; 85025; 85652; 86140

== ENCOUNTER → 2023-06-24 | Outpatient (CLI) | payer MEDICARE, SELFPAY ==
[2023-06-24 09:14] LABS: Erythrocyte Sedimentation Rate 13 mm/hr (0-30)
[2023-06-24 09:19] LABS: Hemoglobin A1c 5.7 % (3.8-5.6)
[2023-06-24 09:50] LABS: ALB/GLOB Ratio 0.8 RATIO (0.9-2.4); AST(SGOT) 20 U/L (15-37); Alanine Aminotransfer ALT/SGPT 23 U/L (13-56); Albumin, Serum 3.3 g/dL (3.2-5.0); Alkaline Phosphatase 80 U/L (45-117); Anion Gap 4 (5-15); BUN 20 mg/dL (7-18); BUN/Creat Ratio 21.8 RATIO (10-20); Calcium,Total 9.7 mg/dL (8.5-10.1); Chloride 104 mmol/L (98-107); Creatinine, Serum 0.92 mg/dL (0.55-1.02); EST Glomerular Filtration Rate 63 mL/min (>60); Est Glom Filt Rate - Afr Amer 76 mL/min (>60); Globulin 3.9 g/dL (2.2-4.2); Glucose 100 mg/dL (74-106); Potassium 4.2 mmol/L (3.5-5.1); Protein, Total 7.2 g/dL (6.4-8.2); Sodium Level 138 mmol/L (136-145); Thyroid Stim Hormone (TSH) 0.33 uIU/mL (0.358-3.74)
[2023-06-24 13:58] LABS: Absolute Lymphocyte Count 2.17 X10^3/uL (0.83-4.51); Absolute Neutrophil Count 5.5 X10^3/uL (2.0-7.7); Basophil# 0.18 X10^3/uL; Basophil% 1.8 % (0-1); Eosinophil# 0.58 X10^3/uL; Eosinophils% 5.9 % (0-5); Hematocrit 39.6 % (37-47); Hemoglobin 12.7 g/dL (12.0-15.0); Lymphocyte # 2.17 X10^3/ul (0.83-4.51); Lymphocyte % 22.1 % (19-41); Mean Corp Hgb Conc 32.1 g/dL (32-36); Mean Corpuscular Hgb 33.5 pg (27.0-32.0); Mean Corpuscular Volume 104.5 fL (81-99); Mean Platelet Vol. 11.6 fl (6.2-12.0); Monocyte# 1.31 X10^3/uL; Monocyte% 13.3 % (0-10); NRBC Flagged by Analyzer 0 % (0-5); Neutrophil # 5.53 X10^3/uL (2.7-7.7); Neutrophil % 56.3 % (47-70); Platelet Count 331 K/mm3 (150-450); RBC Distribution Width CV 12.6 % (11.6-14.6); RBC Distribution Width SD 49.1 fl (35.1-43.9); Red Blood Count 3.79 M/mm3 (4.2-5.4); White Blood Count 9.8 K/mm3 (4.4-11.0)
== END | disposition home or self-care (01) ==
LOC: LAB 08:03
PROVIDERS: PCP Internal Medicine; Referring Provider Physician Assistant; Visit Provider Physician Assistant
DX: E03.9 Hypothyroidism, unspecified (principal); E11.9 Type 2 diabetes mellitus without complications; R11.2 Nausea with vomiting, unspecified
CPT/HCPCS: 36415; 80053; 83036; 84443; 85025; 85652

== ENCOUNTER → 2023-06-29 | Outpatient (CLI) | payer MEDICARE, SELFPAY ==
--- NOTE | 2023-06-29 09:34 | US_ITS ---
STUDY: ABDOMINAL ULTRASOUND REASON FOR EXAM: Female, 77 years old. nausea and vomiting TECHNIQUE: Transabdominal ultrasound was performed with real-time and static zuluaga scale imaging. TECHNICAL QUALITY: Adequate. COMPARISON: None. FINDINGS: Liver: The liver measures 17.4 cm. There is increased echogenicity consistent with fatty infiltration. The bile ducts are within normal limits. There is hepatic color flow. The direction of portal flow is hepatopetal. There is no demonstrated mass lesion. Gallbladder: Normal distended gallbladder. The gallbladder wall measures 1.4 mm. There is a negative sonographic Riley''s sign. There is no pericholecystic fluid. There are no gallstones. Common Bile Duct (C.B.D.): The common bile duct measures 5.1 mm. Pancreas: Normal size of the head, body and tail of the pancreas. There is increased echogenicity of the pancreas. There is no demonstrated pancreatic mass or cyst. Spleen: Normal size of the spleen. The spleen measures 7.1 cm x 3.5 cm x 3.1 cm. Right Kidney: Normal size of the right kidney. The right kidney measures 11.1 cm x 5 cm x 4.8 cm. Normal renal cortex. The right cortex measures 1.4 cm. There is no demonstrated renal mass or cyst. There is no right hydronephrosis. Left Kidney: Normal size of the left kidney. The left kidney measures 12.2 cm x 4.7 cm x 5.6 cm. Normal renal cortex. The left cortex measures 1.0 cm. There is no demonstrated renal mass or cyst. There is no left hydronephrosis. Aorta: Atherosclerotic calcific plaques. I.V.C.: The IVC is patent. There is no ascites. US/Abdomen Complete IMPRESSION: Normal abdominal ultrasound examination. Electronically Signed: Gonzalo Jordan MD at 15:08 EST ,
== END | disposition home or self-care (01) ==
PROVIDERS: PCP Internal Medicine; Referring Provider Physician Assistant; Visit Provider Physician Assistant
DX: R11.2 Nausea with vomiting, unspecified (principal)
CPT/HCPCS: 76700

== ENCOUNTER → 2023-07-13 | Outpatient (CLI) | payer MEDICARE, SELFPAY ==
[2023-07-13 17:19] LABS: T4 Total, Thyroxin 14.8 ug/dL (4.8-13.9); Thyroid Stim Hormone (TSH) 0.55 uIU/mL (0.358-3.74)
[2023-07-18 10:07] LABS: T3 Reverse 31.7 ng/dL (9.2-24.1)
== END | disposition home or self-care (01) ==
LOC: BIMLAB 15:00
PROVIDERS: PCP Internal Medicine; Referring Provider Physician Assistant; Visit Provider Physician Assistant
DX: E78.5 Hyperlipidemia, unspecified (principal); E03.9 Hypothyroidism, unspecified
CPT/HCPCS: 36415; 84436; 84443; 84482

== ENCOUNTER → 2023-08-01 | Outpatient (CLI) | payer MEDICARE, SELFPAY ==
--- OUTSIDE RECORDS SUMMARY | 2023-08-01 16:08 | XMS RPT_ITS | CCD ---
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 27.12 kg/m? Physical Exam Vitals and nursing note reviewed. Constitutional: General: She is not in acute distress. Appearance: Normal appearance. She is not toxic-appearing. Cardiovascular: Rate and Rhythm: Normal rate and regular rhythm. Pulmonary: Effort: Pulmonary effort is normal. Breath sounds: Normal breath sounds. Skin: General: Skin is warm and dry. Findings: Wound present. Comments: Small open wound with white/yellow center noted to right johnson. Mild amount of surrounding erythema. No lymphatic streaking. No fluctuance or abscess. No active drainage. Bilateral 1+ LE edema, baseline per patient. No calf tenderness. Neurological: Mental Status: She is alert. Assessment and Plan ASSESSMENT/PLAN: 1. Skin infection - ICD9: 686.9, ICD10: L08.9 - Begin treatment with doxycycline and mupirocin - No lymphangetic streaking, this was defined for patient to watch for and to seek medical care immediately if appears - ABSCESS AND WOUND CULTURE WITH GRAM STAIN -Advised if no improvement in 3 to 5 days, follow-up with PCP. -Given wound care instructions. Keep wound clean and dry. -Pulse ox 94% initial. Rechecked, 95%. Lungs clear. No chest pain or shortness of breath. No URI symptoms. Diagnosis and treatment plan were discussed and questions were answered (more content not included)... [facility] 06-20-2023 Hospital Discharg e instructions Patient Education 06/20/2023 13:52:14 Skin Avulsion Skin Tear (Skin Avulsion) A skin avulsion is a tearing of the top layer of skin. This commonly happens after a fall or other injury. It also tends to be more common in older people, or those taking blood thinners or steroids for long periods of time. Home care These guidelines will help you care for your wound at home: Keep the wound clean and dry for the first 24 to 48 hours, or as your healthcare provider advises. If there is a dressing or bandage, change it when it gets wet or dirty. Otherwise, leave it on for the first 24 hours, then change it once a day or as often as the doctor says. If stitches or wagner were used, check the wound every day. After taking off the dressing, wash the area gently with soap and water. Clean as close to the stitches as you can. Avoid washing or rubbing the stitches directly. After 3 days you can keep the bandages off the wound, unless told otherwise, or there is continued drainage. Allow the wound to be open to the air. Keep a thin layer of antibiotic ointment on the cut. This will keep the wound clean, make it easier to remove the stitches, and reduce scarring. If your wound is oozing, you can put a nonstick dressing over it. Then, reapply the bandage or dressing as you were told. You can shower as usual after the first 24 hours, but don't soak the area in water (no baths or swimming) until the stitches or wagner are taken out. If surgical tape was used, keep the area clean and dry. If it becomes wet, blot it dry with a clean towel. If skin glue was used, don't put any creams, lotions, or antibiotic ointments on it. These can dissolve the glue. Usually the glue will flake off in about 5 to 10 days by itself. Try to resist picking it off before that so the wound doesn't open up. When it gets wet, pat it dry. Here is some information about medicine: You may use [id number] medicine such as acetaminophen or ibuprofen to control pain, unless another pain medicine was given. If you have chronic liver or kidney disease or ever had a stomach ulcer or gastrointestinal bleeding, talk with your doctor before using these medicines. If you were given antibiotics, take them until they are all used up. It is important to finish the antibiotics even if the wound looks better. This will ensure that the infection has cleared. Follow-up care Follow up with your healthcare provider, or as advised. Watch for any signs of infection, such as increasing redness, swelling, or pus coming out. If this happens, don't wait for your scheduled visit. Instead, see a doctor sooner. Stitches or wagner are usually taken out within 5 to 14 days. This varies depending on what part of your body they are on, and the type of wound. The doctor will tell you how long stitches should be left in. If surgical tape was used, it is usually left on for 7 to 10 days. You can remove surgical tape after that unless you were told otherwise. If you try to remove it, and it is too hard, soaking can help. Surgical tape strips will eventually fall off on their own. If the edges of the cut pull apart, stop removing the tape or strips and follow up with your doctor As mentioned above, skin glue will flake off by itself in 5 to 10 days, so you don't need to pull it off. If any X-rays were done, you will be notified of any changes that may affect your care. When to seek medical advice Call your healthcare provider right away if any of these occur: Increasing pain in the wound Redness, swelling, or pus coming from the wound Fever of 100.4 F (38 C) or higher, or as directed by your healthcare provider Sutures or wagner come apart or fall out before your next appointment and the wound edges look as if they will re-open Surgical tape closures fall off before 7 days, and the wound edges look as if they will re-open Bleeding not controlled by direct pressure 2413-1286 [employer] [address] [place] [address], [place] [address]. All rights reserved. This information is not intended as a substitute for professional medical care. Always follow your healthcare professional's instructions. Follow Up Care 06/20/2023 13:22:32 With:DIONNE MAGAÑA MD Address: [facility] [address] [place] [address] [id number] When:2-4 days [facility] 06-20-2023 Note Discharge Instructions Thank you for allowing [facility] to assist you with your healthcare needs. The following is important discharge information regarding your hospital visit. Diagnosis from Today's Visit Avulsion of skin Leg laceration What to Do Next Instructions from Your Care Team No qualifying data available. Post Acute Orders No qualifying data available. You Need to Schedule the Following Appointments Follow Up with DIONNE MAGAÑA MD When Within 2-4 days Where: [facility] [address] [place] [address]- Allergies NKA Medications Please ask your primary doctor or pharmacist before taking any other medication not listed, including over the counter drugs, herbal medications, vitamins and or supplements as they may interact with your home medications. What How Much When Instructions Last Dose Unchanged albuterol (Albuterol (Eqv-ProAir HFA) 90 mcg/ inh inhalation aerosol) INHALE 2 puffs by mouth up to four times daily as needed for Shortness of breath or wheezing Unchanged amLODIPine (amLODIPine 10 mg oral tablet) TAKE 1 TABLET BY MOUTH EVERY DAY AT BEDTIME Unchanged ascorbic acid (Vitamin C 1000 mg oral tablet) 1 tab(s) by mouth Once a day Unchanged aspirin (aspirin 81 mg oral delayed release tablet) 1 tab(s) by mouth Two (2) times a day Duration: 30 Days Take 81 mg aspirin twice daily with food for 4 weeks postoperatively for DVT prophylaxis. Unchanged baclofen (baclofen 20 mg oral tablet) 1 tab(s) by mouth Three (3) times a day Unchanged benzonatate (benzonatate 100 mg oral capsule) TAKE 1 CAPSULE THREE TIMES DAILY NEEDED Unchanged cetirizine (cetirizine 10 mg oral tablet) 1 tab(s) by mouth Two (2) times a day Unchanged cholecalciferol (Vitamin D3 25 mcg (1000 intl units) oral capsule) 1 cap by mouth Every day Unchanged famotidine (famotidine 40 mg oral tablet) Take 1 tablet by mouth daily Unchanged ferrous sulfate (FeroSul 325 mg (65 mg elemental iron) oral tablet) TAKE 1 TABLET by mouth daily Unchanged fluticasone-vilanterol (Breo Ellipta 200 mcg-25 mcg/ inh inhalation powder) Inhale 1 puff by mouth daily with good oral care Unchanged gabapentin (gabapentin 300 mg oral capsule) 1 cap by mouth Three (3) times a day Unchanged levothyroxine (levothyroxine 137 mcg (0.137 mg) oral tablet) TAKE 1 TABLET BY MOUTH EVERY DAY Unchanged meloxicam (Mobic 7.5 mg oral tablet) 1 tab(s) by mouth Twice daily with meals Do not take any other nonsteroidal anti-inflammatories while on meloxicam/ Mobic Unchanged metFORMIN (metFORMIN 500 mg oral tablet (IR)) 1 tab(s) by mouth Two (2) times a day Unchanged metoprolol (metoprolol succinate 50 mg oral tablet, extended release) 1 tab(s) by mouth Once a day Unchanged mirtazapine (mirtazapine 7.5 mg oral tablet) TAKE 1/ 2 (ONE-HALF) TO 1 (ONE) TABLET AT BEDTIME Unchanged montelukast (montelukast 10 mg oral tablet) 1 tab(s) by mouth Once a day Unchanged olmesartan (olmesartan 20 mg oral tablet) TAKE 1 TABLET BY MOUTH DAILY Unchanged pantoprazole (pantoprazole 40 mg oral enteric coated tablet) TAKE 1 TABLET BY MOUTH DAILY Unchanged rOPINIRole (rOPINIRole 0.5 mg oral tablet) TAKE 1 TO 2 TABLETS AT BEDTIME Unchanged rosuvastatin (rosuvastatin 5 mg oral tablet) TAKE 1 TABLET BY MOUTH AT BEDTIME Unchanged vitamin E (vitamin E 1000 intl units oral capsule) 1 cap by mouth Once a day Please take this list to your next doctor s visit. Bring all medications you take, including over the counter medications, herbals and other supplements with you to your doctor s visit. Patients and families are reminded to discard old lists and to update any records with all medication providers or retail pharmacies. Education Materials Skin Tear (Skin Avulsion) A skin avulsion is a tearing of the top layer of skin. This commonly happens after a fall or other injury. It also tends to be more common in older people, or those taking blood thinners or steroids for long periods of time. Home care These guidelines will help you care for your wound at home: Keep the wound clean and dry for the first 24 to 48 hours, or as your healthcare provider advises. If there is a dressing or bandage, change it when it gets wet or dirty. Otherwise, leave it on for the first 24 hours, then change it once a day or as often as the doctor says. If stitches or wagner were used, check the wound every day. After taking off the dressing, wash the area gently with soap and water. Clean as close to the stitches as you can. Avoid washing or rubbing the stitches directly. After 3 days you can keep the bandages off the wound, unless told otherwise, or there is continued drainage. Allow the wound to be open to the air. Keep a thin layer of antibiotic ointment on the cut. This will keep the wound clean, make it easier to remove the stitches, and reduce scarring. If your wound is oozing, you can put a nonstick dressing over it. Then, reapply the bandage or dressing as you were told. You can shower as usual after the first 24 hours, but don't soak the area in water (no baths or swimming) until the stitches or wagner are taken out. If surgical tape was used, keep the area clean and dry. If it becomes wet, blot it dry with a clean towel. If skin glue was used, don't put any creams, lotions, or antibiotic ointments on it. These can dissolve the glue. Usually the glue will flake off in about 5 to 10 days by itself. Try to resist picking it off before that so the wound doesn't open up. When it gets wet, pat it dry. Here is some information about medicine: You may use pwkr-gzt-yfdepxp medicine such as acetaminophen or ibuprofen to control pain, unless another pain medicine was given. If you have chronic liver or kidney disease or ever had a stomach ulcer or gastrointestinal bleeding, talk with your doctor before using these medicines. If you were given antibiotics, take them until they are all used up. It is important to finish the antibiotics even if the wound looks better. This will ensure that the infection has cleared. Follow-up care Follow up with your healthcare provider, or as advised. Watch for any signs of infection, such as increasing redness, swelling, or pus coming out. If this happens, don't wait for your scheduled visit. Instead, see a doctor sooner. Stitches or wagner are usually taken out within 5 to 14 days. This varies depending on what part of your body they are on, and the type of wound. The doctor will tell you how long stitches should be left in. If surgical tape was used, it is usually left on for 7 to 10 days. You can remove surgical tape after that unless you were told otherwise. If you try to remove it, and it is too hard, soaking can help. Surgical tape strips will eventually fall off on their own. If the edges of the cut pull apart, stop removing the tape or strips and follow up with your doctor As mentioned above, skin glue will flake off by itself in 5 to 10 days, so you don't need to pull it off. If any X-rays were done, you will be notified of any changes that may affect your care. When to seek medical advice Call your healthcare provider right away if any of these occur: Increasing pain in the wound Redness, swelling, or pus coming from the wound Fever of 100.4 F (38 C) or higher, or as directed by your healthcare provider Sutures or wagner come apart or fall out before your next appointment and the wound edges look as if they will re-open Surgical tape closures fall off before 7 days, and the wound edges look as if they will re-open Bleeding not controlled by direct pressure [id number] [employer] [address] [place] [address], [place] [address]. All rights reserved. This information is not intended as a substitute for professional medical care. Always follow your healthcare professional's instructions. Additional Information VACCINATE! IT SAVES LIVES! Members of the community who have not yet received the COVID-19 vaccine and would like to receive it can visit one of [facility] vaccine clinics. There are many vaccine clinic locations within the [facility]. For locations and available times, please visit [email or web address] It is important to note that some COVID mobile vaccine clinics are held outdoors and may be canceled in rainy or stormy conditions. To learn more about pediatric vaccinations (ages 5-11), we invite you to visit the [employer] webpage. [email or web address] To learn more about the COVID-19 vaccine, we invite you to visit the CDC website for a list of frequently asked questions. https://www.cdc.gov/coronavirus/2 019-ncov/vaccines/faq.html [facility] Patient Portal Access Instructions: Stay connected with your healthcare team and access your personal medical information anytime with the [facility] Patient Portal. If you would like a full copy of your medical records please contact the [facility] Medical Records Department Tuesday through Tuesday between 8a.m. and 4:30p.m. Please follow the directions below to access the portal: 1.Access the email account you provided upon registration to the hospital.2.Look for an invitation email from [facility].3.Open the email and access the invitation link: Accept Invitation to [facility].Fill in the required trivedi to create your account. Sign into www.[employer] with your username and password that you created in the above steps to stay up to date. You can then view a summary of results, a summary of your visits, and the ability to download your summaries to your computer or send the information securely to a physician. Remember that your healthcare information is confidential, so carefully consider who you will allow to register on the [facility] Patient Portal for access to your information. You can also access the [facility] Patient Portal on the [employer] ellis. Simply click on Health Records under Health Data and then click on the [employer] [facility] logo. HOW TO SAFELY DISPOSE OF PRESCRIPTION MEDICATIONS Please use one of the following methods to safely dispose of your unused medications. 1.Use a drug disposal kit: the drug disposal pouch allows you to safely discard your old and unused drugs. Ask your nurse to give you one when you are discharged.2.Visit a local take-back location: Many local pharmacies and police departments have programs that collect old and unwanted prescription drugs. Call your local pharmacy or go to http://[employer].PlanHQ/2A0Rz9v to find one close to you.3.Make use of household items: Use cat litter or old coffee grounds to dispose medications if other options are not available. Mix your drugs with these household products, seal them in an airtight container and throw it into the garbage. Call [facility]: [phone] to be sure your drugs can be disposed of in this way. Some medicines may require a different approach.4.Never flush your medications down the toilet. IF YOU HAVE BEEN PRESCRIBED AN OPIOIDS FOR PAIN If you have been prescribed an opioid (such as hydrocodone, oxycodone or morphine), it is critical to understand the possible side effects and risks of opioid pain medications. Even when taken as directed, opioids can have several side effects including: Tolerance, meaning you might need to take more of a medication for the same pain relief. Nausea, vomiting and/or constipation. Sleepiness, dizziness, dry mouth, confusion, depression or itching. Physical dependence, meaning you have withdrawal symptoms when a medication is stopped ? this can develop within a few days. KNOW YOUR RESPONSIBILITIES It is important to know exactly how much and how often to take the opioid pain medications you are prescribed. Never take opioids in higher amounts or more often than prescribed. Do not combine opioids with alcohol or other drugs that cause drowsiness, such as benzodiazepines, also known as benzos, including diazepam and alprazolam, muscle relaxants or sleep aids. Never sell or share prescription opioids. This is illegal. Store opioids in a secure place and out of reach of others (including children, family, friends and visitors). The last page(s) of this document has been signed and retained as a CHART COPY Signatures Patient Education Materials Skin Avulsion Medication Leaflets My discharge plan and instructions have been reviewed and explained to me and IMITUL NANCY D understand my current condition and have read and understand these discharge instructions. I have received a written copy of the plan/instructions. If I have questions, I am aware that I should contact my doctor. Patient/Community Health Planning Director Signature: Date/Time: Relationship to Patient: ____ Witness Name/Signature: Date/Time: [facility] 06-16-2023 Miscellaneous Notes Still unable to reach patient so left message for patient with results and recommendations.Sarah Bradford LPN Left a message for pt to call the office and ask to speak to a nurse. Mindy Singletary LPN Left message for patient to call back and ask to talk to a triage nurse. Doreen Dobson ----- Message from Giovana Gill APRN.SPINNER TENDER sent at 06/15/2023 7:26 AM EST ----- Urine culture did not show clear evidence of infection, however it appears sample may have been contaminated with skin bacteria during collection. If not improving, recommend follow up with PCP. Giovana Gill CNP documented in this encounter [facility] 06-14-2023 Miscellaneous Notes Patient returned call and went over results, notes from express care provider with understanding. Left message for patient to return call. Suzanne Galeana LPN ----- Message from Giovana Gill APRN.SPINNER TENDER sent at 06/14/2023 7:14 AM EST ----- Please advise patient the COVID and flu test was negative. documented in this encounter [facility] 06-13-2023 Note HNO ID: [id number] Author: Chito Moura APRN.SPINNER TENDER Service: ? Author Type: Nurse Practitioner Type: Progress Notes Filed: 06/13/2023 5:23 PM Note Text: Subjective HPI HPI Jerrell Strickland is a 77 year old female who presents today for CC of nausea, fever, body aches. This started 5-6 days ago. Has tried otc medication for relief. Symptoms are worsened by nothing. Risk factors no sick exposures. Tolerating fluids/solids. .Patient presents with: Flu Like Symptoms: X 5-6 days PAST MEDICAL HISTORY Diagnosis Date Asthma Hyperlipidemia Hypertension Hypothyroidism Syncope PAST SURGICAL HISTORY Procedure Laterality Date APPENDECTOMY HYSTERECTOMY HX partial- done in [place] LAMINECTOMY W/O FFD 07/12 VERT SEG LUMBAR 2010 PAST SURGICAL HISTORY OF left shoulder- rotator cuff repair PAST SURGICAL HISTORY OF 2013 loop recorder implant- has had in since 2012 PAST SURGICAL HISTORY OF Right 11/21/2015 right middle finger ganglion excision and nail plate removal REVISE MEDIAN N/CARPAL TUNNEL SURG bilateral CTR TONSILLECTOMY HX ALLERGIES Acetaminophen-Codeine and Seasonal Allergies MEDICATIONS rOPINIRole (REQUIP) 0.5 mg tablet Take 0.5-1 mg by mouth daily at bedtime. amLODIPine (NORVASC) 10 mg tablet Take 10 mg by mouth daily at bedtime. VITAMIN B-12 1,000 mcg TbER Take 1 tablet by mouth every afternoon. meloxicam (MOBIC) 15 mg tablet Take 1 tablet by mouth every afternoon. BREO ELLIPTA 200-25 mcg/dose inhaler Inhale 1 puff by mouth daily with good oral care gabapentin 300 mg Tb24 Take 300 mg by mouth daily at bedtime. HYDROcodone-Acetaminophen (VICODIN ES) 7.5-300 mg tab Take 7.5-325 tablets by mouth every 6 hours as needed. CALCIUM CARB/VIT D3/MINERALS (CALCIUM 600 + MINERALS ORAL) Take by mouth once daily. MULTIVITAMIN ORAL Take by mouth once daily. ascorbic acid (VITAMIN C) 500 mg tablet Take 500 mg by mouth once daily. metoprolol succinate ER (TOPROL XL) 50 mg 24 hr tablet Take 50 mg by mouth once daily. Levothyroxine 50 mcg cap Take by mouth once daily. fluticasone-salmeterol (ADVAIR) 250-50 mcg/dose dsdv Inhale 1 Puff as instructed twice daily. omeprazole (PRILOSEC) 20 mg capsule Take 20 mg by mouth once daily. pravastatin (PRAVACHOL) 80 mg tablet Take 80 mg by mouth once daily. montelukast (SINGULAIR) 10 mg tablet Take 10 mg by mouth daily at bedtime. Cetirizine 10 mg cap Take by mouth daily at bedtime. hydrochlorothiazide (HYDRODIURIL, ESIDRIX) 25 mg tablet Take 25 mg by mouth once daily. fluconazole (DIFLUCAN) 100 mg tablet Take 100 mg by mouth once daily. (Patient not taking: Reported on 01/31/2023) FAMILY HISTORY Problem Relation Age of Onset Heart Mother Heart Father Hypertension Mother Hypertension Father Heart Sister Social History Tobacco Use Smoking status: Never Smokeless tobacco: Never Substance Use Topics Alcohol use: No Drug use: No Review of Systems Constitutional: Positive for fever and malaise/fatigue. HENT: Negative for congestion, ear pain, nosebleeds and sore throat. Respiratory: Negative for cough, shortness of breath and wheezing. Cardiovascular: Negative for chest pain. Gastrointestinal: Positive for nausea. Negative for abdominal pain, diarrhea and vomiting. Musculoskeletal: Negative for neck pain. Skin: Negative for itching and rash. Neurological: Negative for dizziness. Objective Blood pressure 137/67, pulse 89, temperature 37.4 ?C (99.3 ?F), temperature source Right Tympanic, resp. rate 16, weight 74 kg (163 lb 3.2 oz), SpO2 96%. Physical Exam Constitutional: General: She is not in acute distress. Appearance: Normal appearance. She is not toxic-appearing or diaphoretic. HENT: Head: Normocephalic and atraumatic. Right Ear: Hearing, tympanic membrane, ear canal and external ear normal. Left Ear: Hearing, tympanic membrane, ear canal and external ear normal. Nose: Nose normal. Mouth/Throat: Pharynx: Uvula midline. No pharyngeal swelling, oropharyngeal exudate, posterior oropharyngeal erythema or uvula swelling. Eyes: General: Lids are normal. No scleral icterus. Right eye: No discharge. Left eye: No discharge. Conjunctiva/sclera: Conjunctivae normal. Pupils: Pupils are equal, round, and reactive to light. Neck: Trachea: Trachea normal. Cardiovascular: Rate and Rhythm: Normal rate and regular rhythm. Heart sounds: Normal heart sounds. Pulmonary: Effort: Pulmonary effort is normal. Breath sounds: Normal breath sounds. Abdominal: General: Bowel sounds are normal. Palpations: Abdomen is soft. Tenderness: There is no abdominal tenderness. Musculoskeletal: Cervical back: Normal range of motion and neck supple. Lymphadenopathy: Cervical: No cervical adenopathy. Right cervical: No superficial cervical adenopathy. Left cervical: No superficial cervical adenopathy. Skin: General: Skin is warm and dry. Findings: No rash. Neurological: Ment (more content not included)... [facility] 06-13-2023 Miscellaneous Notes Addended by: ALEX CARTWRIGHT on: 06/13/2023 07:05 PM Modules accepted: Orders documented in this encounter [facility] 06-13-2023 History of Presen t illness Narrative Subjective HPI HPI Jerrell Strickland is a 77 year old female who presents today for CC of nausea, fever, body aches. This started 5-6 days ago. Has tried otc medication for relief. Symptoms are worsened by nothing. Risk factors no sick exposures. Tolerating fluids/solids. .Patient presents with: Flu Like Symptoms: X 5-6 days PAST MEDICAL HISTORY Diagnosis Date Asthma Hyperlipidemia Hypertension Hypothyroidism Syncope PAST SURGICAL HISTORY Procedure Laterality Date APPENDECTOMY HYSTERECTOMY HX partial- done in [place] LAMINECTOMY W/O FFD 07/12 VERT SEG LUMBAR 2010 PAST SURGICAL HISTORY OF left shoulder- rotator cuff repair PAST SURGICAL HISTORY OF 2013 loop recorder implant- has had in since 2013 PAST SURGICAL HISTORY OF Right 11/21/2015 right middle finger ganglion excision and nail plate removal REVISE MEDIAN N/CARPAL TUNNEL SURG bilateral CTR TONSILLECTOMY HX ALLERGIES Acetaminophen-Codeine and Seasonal Allergies MEDICATIONS rOPINIRole (REQUIP) 0.5 mg tablet Take 0.5-1 mg by mouth daily at bedtime. amLODIPine (NORVASC) 10 mg tablet Take 10 mg by mouth daily at bedtime. VITAMIN B-12 1,000 mcg TbER Take 1 tablet by mouth every afternoon. meloxicam (MOBIC) 15 mg tablet Take 1 tablet by mouth every afternoon. BREO ELLIPTA 200-25 mcg/dose inhaler Inhale 1 puff by mouth daily with good oral care gabapentin 300 mg Tb24 Take 300 mg by mouth daily at bedtime. HYDROcodone-Acetaminophen (VICODIN ES) 7.5-300 mg tab Take 7.5-325 tablets by mouth every 6 hours as needed. CALCIUM CARB/VIT D3/MINERALS (CALCIUM 600 + MINERALS ORAL) Take by mouth once daily. MULTIVITAMIN ORAL Take by mouth once daily. ascorbic acid (VITAMIN C) 500 mg tablet Take 500 mg by mouth once daily. metoprolol succinate ER (TOPROL XL) 50 mg 24 hr tablet Take 50 mg by mouth once daily. Levothyroxine 50 mcg cap Take by mouth once daily. fluticasone-salmeterol (ADVAIR) 250-50 mcg/dose dsdv Inhale 1 Puff as instructed twice daily. omeprazole (PRILOSEC) 20 mg capsule Take 20 mg by mouth once daily. pravastatin (PRAVACHOL) 80 mg tablet Take 80 mg by mouth once daily. montelukast (SINGULAIR) 10 mg tablet Take 10 mg by mouth daily at bedtime. Cetirizine 10 mg cap Take by mouth daily at bedtime. hydrochlorothiazide (HYDRODIURIL, ESIDRIX) 25 mg tablet Take 25 mg by mouth once daily. fluconazole (DIFLUCAN) 100 mg tablet Take 100 mg by mouth once daily. (Patient not taking: Reported on 01/31/2023) FAMILY HISTORY Problem Relation Age of Onset Heart Mother Heart Father Hypertension Mother Hypertension Father Heart Sister Social History Tobacco Use Smoking status: Never Smokeless tobacco: Never Substance Use Topics Alcohol use: No Drug use: No Review of Systems Constitutional: Positive for fever and malaise/fatigue. HENT: Negative for congestion, ear pain, nosebleeds and sore throat. Respiratory: Negative for cough, shortness of breath and wheezing. Cardiovascular: Negative for chest pain. Gastrointestinal: Positive for nausea. Negative for abdominal pain, diarrhea and vomiting. Musculoskeletal: Negative for neck pain. Skin: Negative for itching and rash. Neurological: Negative for dizziness. Objective Blood pressure 137/67, pulse 89, temperature 37.4 C (99.3 F), temperature source Right Tympanic, resp. rate 16, weight 74 kg (163 lb 3.2 oz), SpO2 96%. Physical Exam Constitutional: General: She is not in acute distress. Appearance: Normal appearance. She is not toxic-appearing or diaphoretic. HENT: Head: Normocephalic and atraumatic. Right Ear: Hearing, tympanic membrane, ear canal and external ear normal. Left Ear: Hearing, tympanic membrane, ear canal and external ear normal. Nose: Nose normal. Mouth/Throat: Pharynx: Uvula midline. No pharyngeal swelling, oropharyngeal exudate, posterior oropharyngeal erythema or uvula swelling. Eyes: General: Lids are normal. No scleral icterus. Right eye: No discharge. Left eye: No discharge. Conjunctiva/sclera: Conjunctivae normal. Pupils: Pupils are equal, round, and reactive to light. Neck: Trachea: Trachea normal. Cardiovascular: Rate and Rhythm: Normal rate and regular rhythm. Heart sounds: Normal heart sounds. Pulmonary: Effort: Pulmonary effort is normal. Breath sounds: Normal breath sounds. Abdominal: General: Bowel sounds are normal. Palpations: Abdomen is soft. Tenderness: There is no abdominal tenderness. Musculoskeletal: Cervical back: Normal range of motion and neck supple. Lymphadenopathy: Cervical: No cervical adenopathy. Right cervical: No superficial cervical adenopathy. Left cervical: No superficial cervical adenopathy. Skin: General: Skin is warm and dry. Findings: No rash. Neurological: Mental Status: She is alert and oriented to person, place, and time. ASSESSMENT/PLAN: 1. FUO (fever of unknown origin) - ICD9: 780.60, ICD10: R50.9 (primary diagnosis) Unclear etiology, viral illness suspected Push fluids Brat diet discussed. F/u with pcp No lab at time of exam. Urgent f/u for worsening s/s. - ALERE STREP A TEST (AG) - UA DIP, URINE (POC) - COVID & INFLUENZA A/B NAAT, ROUTINE 2. Viral syndrome - ICD9: 079.99, ICD10: B34.9 - Discussed viral etiology and rationale for treatment. - Symptomatic treatment with prn analgesia - Supportive care with fluids and rest - Follow up in 3-5 days if symptoms persist or sooner if worsening of symptoms - COVID & INFLUENZA A/B NAAT, ROUTINE Chito Moura APRN.SPINNER TENDER documented in this encounter [facility] 02-15-2023 Note HNO ID: [id number] Author: Mali Jesus APRN.SATISH Service: ? Author Type: Nurse Practitioner Type: Progress Notes Filed: 02/15/2023 1:54 PM Note Text: This note was created using NoteWriter. Subjective Jerrell Strickland is a 77 year old female. 77 year old female with PMH HTN, hyperlipidemia, asthma, thyroid presents for wound. Acute onset 8 weeks ago (Although at first she states one month ago) States she was bit left forearm by her puppy Hes better now, but sure was a biter In fact patient was seen here last month for finger infection related to bites from her puppy She was placed on Augmentin, then switched to Doxy related to wound culture She states her finger is better However, her left forearm, which she was NEVER seen for--- just still seems to be the same Denies fever or chills Denies drainage Denies swelling. Denies reduced or limited ROM. Denies following up with her PCP The history is provided by the patient and a relative. No supervisor finishing was used. Animal Bite The incident occurred more than 2 days ago. The incident occurred at home. There is an injury to the Left forearm. The pain is mild. It is unlikely that a foreign body is present. Pertinent negatives include no chest pain, no fussiness, no numbness, no visual disturbance, no abdominal pain, no bowel incontinence, no bladder incontinence, no headaches, no hearing loss, no inability to bear weight, no pain when bearing weight, no focal weakness, no decreased responsiveness, no seizures, no tingling, no weakness, no cough, no difficulty breathing and no memory loss. There have been no prior injuries to these areas. She is Right-handed. Her tetanus status is UTD. She has been Behaving normally. Recently, medical care has been given at this facility. Services received include medications given and tests performed. PAST MEDICAL HISTORY Diagnosis Date Asthma Hyperlipidemia Hypertension Hypothyroidism Syncope PAST SURGICAL HISTORY Procedure Laterality Date APPENDECTOMY HYSTERECTOMY HX partial- done in [place] LAMINECTOMY W/O FFD 07/12 VERT SEG LUMBAR 2010 PAST SURGICAL HISTORY OF left shoulder- rotator cuff repair PAST SURGICAL HISTORY OF 2013 loop recorder implant- has had in since 2012 PAST SURGICAL HISTORY OF Right 11/21/2015 right middle finger ganglion excision and nail plate removal REVISE MEDIAN N/CARPAL TUNNEL SURG bilateral CTR TONSILLECTOMY HX ALLERGIES Acetaminophen-Codeine and Seasonal Allergies MEDICATIONS rOPINIRole (REQUIP) 0.5 mg tablet Take 0.5-1 mg by mouth daily at bedtime. amLODIPine (NORVASC) 10 mg tablet Take 10 mg by mouth daily at bedtime. VITAMIN B-12 1,000 mcg TbER Take 1 tablet by mouth every afternoon. meloxicam (MOBIC) 15 mg tablet Take 1 tablet by mouth every afternoon. BREO ELLIPTA 200-25 mcg/dose inhaler Inhale 1 puff by mouth daily with good oral care gabapentin 300 mg Tb24 Take 300 mg by mouth daily at bedtime. HYDROcodone-Acetaminophen (VICODIN ES) 7.5-300 mg tab Take 7.5-325 tablets by mouth every 6 hours as needed. CALCIUM CARB/VIT D3/MINERALS (CALCIUM 600 + MINERALS ORAL) Take by mouth once daily. MULTIVITAMIN ORAL Take by mouth once daily. ascorbic acid (VITAMIN C) 500 mg tablet Take 500 mg by mouth once daily. metoprolol succinate ER (TOPROL XL) 50 mg 24 hr tablet Take 50 mg by mouth once daily. Levothyroxine 50 mcg cap Take by mouth once daily. fluticasone-salmeterol (ADVAIR) 250-50 mcg/dose dsdv Inhale 1 Puff as instructed twice daily. omeprazole (PRILOSEC) 20 mg capsule Take 20 mg by mouth once daily. pravastatin (PRAVACHOL) 80 mg tablet Take 80 mg by mouth once daily. montelukast (SINGULAIR) 10 mg tablet Take 10 mg by mouth daily at bedtime. Cetirizine 10 mg cap Take by mouth daily at bedtime. hydrochlorothiazide (HYDRODIURIL, ESIDRIX) 25 mg tablet Take 25 mg by mouth once daily. mupirocin (BACTROBAN) 2 % cream Apply 1 application to affected area three times daily for 10 days. Location: left warm fluconazole (DIFLUCAN) 100 mg tablet Take 100 mg by mouth once daily. (Patient not taking: Reported on 01/31/2023) FAMILY HISTORY Problem Relation Age of Onset Heart Mother Heart Father Hypertension Mother Hypertension Father Heart Sister Social History Tobacco Use Smoking status: Never Smokeless tobacco: Never Substance Use Topics Alcohol use: No Drug use: No Review of Systems Constitutional: Negative for decreased responsiveness. HENT: Negative for hearing loss. Eyes: Negative for visual disturbance. Respiratory: Negative for cough. Cardiovascular: Negative for chest pain. Gastrointestinal: Negative for abdominal pain and bowel incontinence. Genitourinary: Negative for bladder incontinence. Musculoskeletal: Negative for arthralgias and back pain. Skin: Positive for wound. Negative for color change, pallor and rash. Neurological: Negative for tingling, focal weakness, (more content not included)... [facility] 02-15-2023 History of Presen t illness Narrative This note was created using Tã Em Bériter. Subjective Jerrell Strickland is a 77 year old female. 77 year old female with PMH HTN, hyperlipidemia, asthma, thyroid presents for wound. Acute onset 8 weeks ago (Although at first she states one month ago) States she was bit left forearm by her puppy Hes better now, but sure was a biter In fact patient was seen here last month for finger infection related to bites from her puppy She was placed on Augmentin, then switched to Doxy related to wound culture She states her finger is better However, her left forearm, which she was NEVER seen for--- just still seems to be the same Denies fever or chills Denies drainage Denies swelling. Denies reduced or limited ROM. Denies following up with her PCP The history is provided by the patient and a relative. No supervisor finishing was used. Animal Bite The incident occurred more than 2 days ago. The incident occurred at home. There is an injury to the Left forearm. The pain is mild. It is unlikely that a foreign body is present. Pertinent negatives include no chest pain, no fussiness, no numbness, no visual disturbance, no abdominal pain, no bowel incontinence, no bladder incontinence, no headaches, no hearing loss, no inability to bear weight, no pain when bearing weight, no focal weakness, no decreased responsiveness, no seizures, no tingling, no weakness, no cough, no difficulty breathing and no memory loss. There have been no prior injuries to these areas. She is Right-handed. Her tetanus status is UTD. She has been Behaving normally. Recently, medical care has been given at this facility. Services received include medications given and tests performed. PAST MEDICAL HISTORY Diagnosis Date Asthma Hyperlipidemia Hypertension Hypothyroidism Syncope PAST SURGICAL HISTORY Procedure Laterality Date APPENDECTOMY HYSTERECTOMY HX partial- done in [place] LAMINECTOMY W/O FFD 07/12 VERT SEG LUMBAR 2010 PAST SURGICAL HISTORY OF left shoulder- rotator cuff repair PAST SURGICAL HISTORY OF 2012 loop recorder implant- has had in since 2012 PAST SURGICAL HISTORY OF Right 11/21/2015 right middle finger ganglion excision and nail plate removal REVISE MEDIAN N/CARPAL TUNNEL SURG bilateral CTR TONSILLECTOMY HX ALLERGIES Acetaminophen-Codeine and Seasonal Allergies MEDICATIONS rOPINIRole (REQUIP) 0.5 mg tablet Take 0.5-1 mg by mouth daily at bedtime. amLODIPine (NORVASC) 10 mg tablet Take 10 mg by mouth daily at bedtime. VITAMIN B-12 1,000 mcg TbER Take 1 tablet by mouth every afternoon. meloxicam (MOBIC) 15 mg tablet Take 1 tablet by mouth every afternoon. BREO ELLIPTA 200-25 mcg/dose inhaler Inhale 1 puff by mouth daily with good oral care gabapentin 300 mg Tb24 Take 300 mg by mouth daily at bedtime. HYDROcodone-Acetaminophen (VICODIN ES) 7.5-300 mg tab Take 7.5-325 tablets by mouth every 6 hours as needed. CALCIUM CARB/VIT D3/MINERALS (CALCIUM 600 + MINERALS ORAL) Take by mouth once daily. MULTIVITAMIN ORAL Take by mouth once daily. ascorbic acid (VITAMIN C) 500 mg tablet Take 500 mg by mouth once daily. metoprolol succinate ER (TOPROL XL) 50 mg 24 hr tablet Take 50 mg by mouth once daily. Levothyroxine 50 mcg cap Take by mouth once daily. fluticasone-salmeterol (ADVAIR) 250-50 mcg/dose dsdv Inhale 1 Puff as instructed twice daily. omeprazole (PRILOSEC) 20 mg capsule Take 20 mg by mouth once daily. pravastatin (PRAVACHOL) 80 mg tablet Take 80 mg by mouth once daily. montelukast (SINGULAIR) 10 mg tablet Take 10 mg by mouth daily at bedtime. Cetirizine 10 mg cap Take by mouth daily at bedtime. hydrochlorothiazide (HYDRODIURIL, ESIDRIX) 25 mg tablet Take 25 mg by mouth once daily. mupirocin (BACTROBAN) 2 % cream Apply 1 application to affected area three times daily for 10 days. Location: left warm fluconazole (DIFLUCAN) 100 mg tablet Take 100 mg by mouth once daily. (Patient not taking: Reported on 01/31/2023) FAMILY HISTORY Problem Relation Age of Onset Heart Mother Heart Father Hypertension Mother Hypertension Father Heart Sister Social History Tobacco Use Smoking status: Never Smokeless tobacco: Never Substance Use Topics Alcohol use: No Drug use: No Review of Systems Constitutional: Negative for decreased responsiveness. HENT: Negative for hearing loss. Eyes: Negative for visual disturbance. Respiratory: Negative for cough. Cardiovascular: Negative for chest pain. Gastrointestinal: Negative for abdominal pain and bowel incontinence. Genitourinary: Negative for bladder incontinence. Musculoskeletal: Negative for arthralgias and back pain. Skin: Positive for wound. Negative for color change, pallor and rash. Neurological: Negative for tingling, focal weakness, seizures, weakness, numbness and headaches. Hematological: Negative for adenopathy. Does not bruise/bleed easily. Psychiatric/Behavioral: Negative for memory loss. Objective BP 128/64 Pulse 87 Temp 36.7 C (98 F) Resp 16 Wt 74.6 kg (164 lb 6.4 oz) SpO2 96% BMI 28.22 kg/m Physical Exam Vitals and nursing note reviewed. Constitutional: General: She is not in acute distress. Appearance: Normal appearance. She is normal weight. She is not ill-appearing, toxic-appearing or diaphoretic. HENT: Head: Normocephalic and atraumatic. Right Ear: Ear canal and external ear normal. Left Ear: Ear canal and external ear normal. Nose: Nose normal. No congestion or rhinorrhea. Mouth/Throat: Mouth: Mucous membranes are moist. Pharynx: No oropharyngeal exudate or posterior oropharyngeal erythema. Eyes: General: Right eye: No discharge. Left eye: No discharge. Extraocular Movements: Extraocular movements intact. Conjunctiva/sclera: Conjunctivae normal. Pupils: Pupils are equal, round, and reactive to light. Cardiovascular: Rate and Rhythm: Normal rate and regular rhythm. Pulses: Normal pulses. Heart sounds: Normal heart sounds. No murmur heard. No friction rub. Pulmonary: Effort: Pulmonary effort is normal. No respiratory distress. Breath sounds: Normal breath sounds. No stridor. No wheezing, rhonchi or rales. Chest: Chest wall: No tenderness. Abdominal: General: Abdomen is flat. There is no distension. Palpations: Abdomen is soft. There is no mass. Tenderness: There is no abdominal tenderness. There is no right CVA tenderness, left CVA tenderness, guarding or rebound. Hernia: No hernia is present. Musculoskeletal: General: No swelling, tenderness, deformity or signs of injury. Normal range of motion. Cervical back: Normal range of motion and neck supple. No rigidity. Right lower leg: No edema. Left lower leg: No edema. Lymphadenopathy: Cervical: No cervical adenopathy. Skin: General: Skin is warm and dry. Coloration: Skin is not jaundiced or pale. Findings: Erythema present. No bruising, lesion or rash. Comments: Left forearm with v shaped wound what is well approximated Accompanying PW noted No abscess NO drainage Mild erythema No TTP +neuro +sensation Neurological: General: No focal deficit present. Mental Status: She is alert and oriented to person, place, and time. Cranial Nerves: No cranial nerve deficit. Sensory: No sensory deficit. Motor: No weakness. Coordination: Coordination normal. Gait: Gait normal. Psychiatric: Mood and Affect: Mood normal. Behavior: Behavior normal. Thought Content: Thought content normal. Judgment: Judgment normal. Assessment and Plan ASSESSMENT/PLAN: 1. Puncture wound of multiple sites of left upper extremity, initial encounter - ICD9: 884.0, ICD10: S41.132A X 8 weeks ago Bit by her puppy Never seen She was seen last month for finger infection related to bite (which has since resolved) Discussed that PW can take longer to heal WIll provided topical Muporicin Refer to wound care - [facility], [facility] Jesus APRN.SPINNER TENDER documented in this encounter [facility] 02-07-2023 Note HNO ID: [id number] Author: Ashley Granados RT(R) Service: Radiology Author Type: Technologist Type: Progress Notes Filed: 02/07/2023 4:09 PM Note Text: Radiology Service Progress Note PATIENT NAME: Jerrell Strickland DATE OF SERVICE: February 07, 2023 TIME: 4:01 PM PATIENT IDENTITY VERIFICATION COMPLETED USING TWO (2) IDENTIFIERS: Name and Date of confirmed by patient verbally. FALL SCREENING: Has the patient had 2 falls in the last year or 1 fall with injury or currently using an Ambulatory Assistive Device (Walker, Cane, Wheelchair, Crutches, etc.)? Yes, Patient High Risk for Falls What interventions were put in place to prevent falls during this visit? Instructed Patient to Call for Help if Needed, Offered Assistance with Transfers/Clothing, and Increased Observations by Caregivers PATIENT GENDER DATA: Female. status: : No status: NO. PATIENT RELEVANT IMPLANT DATA REVIEWED: Yes RADIOLOGY DEPARTMENT: General X-ray: Exam(s) Completed: Lower Extremity X-Ray(s): Foot, Left PERIPHERAL IV DATA: Not applicable SIGNED BY: RT Jacqueline(R) February 07, 2023 4:01 PM [facility] 02-07-2023 Note HNO ID: [id number] Author: J Luis Sanches APRN.CNP Service: ? Author Type: Nurse Practitioner Type: Progress Notes Filed: 02/07/2023 4:30 PM Note Text: Subjective Patient came in with complaints of third fourth and fifth toes. Patient says it feels like a stabbing pain. Patient says it started in the middle the night. Patient denies ever having this before. Patient is not sure if she injured it in any way. Patient denies swelling or discoloration. Patient denies loss of feeling. The history is provided by the patient. No supervisor finishing was used. Pain (foot) Review of Systems Constitutional: Negative. Skin: Negative. Objective Physical Exam Constitutional: Appearance: Normal appearance. Pulmonary: Effort: Pulmonary effort is normal. Musculoskeletal: Feet: Feet: Comments: Says she is experiencing the pain in the area marked above. Bruising or swelling or deformities noted. Tender upon palpation. Neurological: Mental Status: She is alert. PAST MEDICAL HISTORY Diagnosis Date Asthma Hyperlipidemia Hypertension Hypothyroidism Syncope PAST SURGICAL HISTORY Procedure Laterality Date APPENDECTOMY HYSTERECTOMY HX partial- done in [place] LAMINECTOMY W/O FFD 07/12 VERT SEG LUMBAR 2010 PAST SURGICAL HISTORY OF left shoulder- rotator cuff repair PAST SURGICAL HISTORY OF 2013 loop recorder implant- has had in since 2012 PAST SURGICAL HISTORY OF Right 11/21/2015 right middle finger ganglion excision and nail plate removal REVISE MEDIAN N/CARPAL TUNNEL SURG bilateral CTR TONSILLECTOMY HX ALLERGIES Acetaminophen-Codeine and Seasonal Allergies MEDICATIONS predniSONE (DELTASONE) 20 mg tablet TAKE 2 (TWO) TABLETS BY MOUTH EVERY DAY for FOUR days then 1 (ONE) TABLET EVERY DAY for 2 (TWO) days rOPINIRole (REQUIP) 0.5 mg tablet Take 0.5-1 mg by mouth daily at bedtime. amLODIPine (NORVASC) 10 mg tablet Take 10 mg by mouth daily at bedtime. VITAMIN B-12 1,000 mcg TbER Take 1 tablet by mouth every afternoon. meloxicam (MOBIC) 15 mg tablet Take 1 tablet by mouth every afternoon. BREO ELLIPTA 200-25 mcg/dose inhaler Inhale 1 puff by mouth daily with good oral care gabapentin 300 mg Tb24 Take 300 mg by mouth daily at bedtime. HYDROcodone-Acetaminophen (VICODIN ES) 7.5-300 mg tab Take 7.5-325 tablets by mouth every 6 hours as needed. CALCIUM CARB/VIT D3/MINERALS (CALCIUM 600 + MINERALS ORAL) Take by mouth once daily. MULTIVITAMIN ORAL Take by mouth once daily. ascorbic acid (VITAMIN C) 500 mg tablet Take 500 mg by mouth once daily. metoprolol succinate ER (TOPROL XL) 50 mg 24 hr tablet Take 50 mg by mouth once daily. Levothyroxine 50 mcg cap Take by mouth once daily. fluticasone-salmeterol (ADVAIR) 250-50 mcg/dose dsdv Inhale 1 Puff as instructed twice daily. omeprazole (PRILOSEC) 20 mg capsule Take 20 mg by mouth once daily. pravastatin (PRAVACHOL) 80 mg tablet Take 80 mg by mouth once daily. montelukast (SINGULAIR) 10 mg tablet Take 10 mg by mouth daily at bedtime. Cetirizine 10 mg cap Take by mouth daily at bedtime. hydrochlorothiazide (HYDRODIURIL, ESIDRIX) 25 mg tablet Take 25 mg by mouth once daily. doxycycline (VIBRA-TABS) 100 mg tablet Take 1 tablet by mouth twice daily for 7 days. (Patient not taking: Reported on 02/07/2023) fluconazole (DIFLUCAN) 100 mg tablet Take 100 mg by mouth once daily. (Patient not taking: Reported on 01/31/2023) FAMILY HISTORY Problem Relation Age of Onset Heart Mother Heart Father Hypertension Mother Hypertension Father Heart Sister Social History Tobacco Use Smoking status: Never Smokeless tobacco: Never Substance Use Topics Alcohol use: No Drug use: No ASSESSMENT/PLAN: 1. Pain - ICD9: 780.96, ICD10: R52 - XR FOOT GENERAL 3V AP/LAT/OBL LEFT * * *Final Report* * * DATE OF EXAM: Feb 07 2023 4:09PM WOX [id number] - XR FOOT 3V AP/LAT/OBL LT / PROCEDURE REASON: Pain * * * * Physician Interpretation * * * * EXAMINATION: XR FOOT 3V AP/LAT/OBL LT CLINICAL HISTORY: Left foot pain Technique: XR FOOT 3V AP/LAT/OBL LT -- LEFT with 3 views on 3 images Comparison: None RESULT: No acute fracture or dislocation. 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 Vascular calcifications are noted. IMPRESSION IMPRESSION: No acute osseous abnormality Podiatry Teacher: PAZ Transcribe Date/Time: Feb 07 2023 4:09P Dictated by : MINERVA PATRICK MD - METHYLPREDNISOLONE 4 MG TABLETS IN A DOSE PACK Was educated about proper use of medication and supportive therapies. Patient was educated if signs and symptoms do not seem to be alleviated with the steroids that she should follow-up with primary care. Patient was okay with this care plan. J Luis Sanches APRN.[facility] 02-07-2023 History of Presen t illness Narrative Images from the original note were not included. Subjective Patient came in with complaints of third fourth and fifth toes. Patient says it feels like a stabbing pain. Patient says it started in the middle the night. Patient denies ever having this before. Patient is not sure if she injured it in any way. Patient denies swelling or discoloration. Patient denies loss of feeling. The history is provided by the patient. No supervisor finishing was used. Pain (foot) Review of Systems Constitutional: Negative. Skin: Negative. Objective Physical Exam Constitutional: Appearance: Normal appearance. Pulmonary: Effort: Pulmonary effort is normal. Musculoskeletal: Feet: Feet: Comments: Says she is experiencing the pain in the area marked above. Bruising or swelling or deformities noted. Tender upon palpation. Neurological: Mental Status: She is alert. PAST MEDICAL HISTORY Diagnosis Date Asthma Hyperlipidemia Hypertension Hypothyroidism Syncope PAST SURGICAL HISTORY Procedure Laterality Date APPENDECTOMY HYSTERECTOMY HX partial- done in [place] LAMINECTOMY W/O FFD 07/12 VERT SEG LUMBAR 2010 PAST SURGICAL HISTORY OF left shoulder- rotator cuff repair PAST SURGICAL HISTORY OF 2012 loop recorder implant- has had in since 2012 PAST SURGICAL HISTORY OF Right 11/21/2015 right middle finger ganglion excision and nail plate removal REVISE MEDIAN N/CARPAL TUNNEL SURG bilateral CTR TONSILLECTOMY HX ALLERGIES Acetaminophen-Codeine and Seasonal Allergies MEDICATIONS predniSONE (DELTASONE) 20 mg tablet TAKE 2 (TWO) TABLETS BY MOUTH EVERY DAY for FOUR days then 1 (ONE) TABLET EVERY DAY for 2 (TWO) days rOPINIRole (REQUIP) 0.5 mg tablet Take 0.5-1 mg by mouth daily at bedtime. amLODIPine (NORVASC) 10 mg tablet Take 10 mg by mouth daily at bedtime. VITAMIN B-12 1,000 mcg TbER Take 1 tablet by mouth every afternoon. meloxicam (MOBIC) 15 mg tablet Take 1 tablet by mouth every afternoon. BREO ELLIPTA 200-25 mcg/dose inhaler Inhale 1 puff by mouth daily with good oral care gabapentin 300 mg Tb24 Take 300 mg by mouth daily at bedtime. HYDROcodone-Acetaminophen (VICODIN ES) 7.5-300 mg tab Take 7.5-325 tablets by mouth every 6 hours as needed. CALCIUM CARB/VIT D3/MINERALS (CALCIUM 600 + MINERALS ORAL) Take by mouth once daily. MULTIVITAMIN ORAL Take by mouth once daily. ascorbic acid (VITAMIN C) 500 mg tablet Take 500 mg by mouth once daily. metoprolol succinate ER (TOPROL XL) 50 mg 24 hr tablet Take 50 mg by mouth once daily. Levothyroxine 50 mcg cap Take by mouth once daily. fluticasone-salmeterol (ADVAIR) 250-50 mcg/dose dsdv Inhale 1 Puff as instructed twice daily. omeprazole (PRILOSEC) 20 mg capsule Take 20 mg by mouth once daily. pravastatin (PRAVACHOL) 80 mg tablet Take 80 mg by mouth once daily. montelukast (SINGULAIR) 10 mg tablet Take 10 mg by mouth daily at bedtime. Cetirizine 10 mg cap Take by mouth daily at bedtime. hydrochlorothiazide (HYDRODIURIL, ESIDRIX) 25 mg tablet Take 25 mg by mouth once daily. doxycycline (VIBRA-TABS) 100 mg tablet Take 1 tablet by mouth twice daily for 7 days. (Patient not taking: Reported on 02/07/2023) fluconazole (DIFLUCAN) 100 mg tablet Take 100 mg by mouth once daily. (Patient not taking: Reported on 01/31/2023) FAMILY HISTORY Problem Relation Age of Onset Heart Mother Heart Father Hypertension Mother Hypertension Father Heart Sister Social History Tobacco Use Smoking status: Never Smokeless tobacco: Never Substance Use Topics Alcohol use: No Drug use: No ASSESSMENT/PLAN: 1. Pain - ICD9: 780.96, ICD10: R52 - XR FOOT GENERAL 3V AP/LAT/OBL LEFT * * *Final Report* * * DATE OF EXAM: Feb 07 2023 4:09PM WOX [id number] - XR FOOT 3V AP/LAT/OBL LT / PROCEDURE REASON: Pain * * * * Physician Interpretation * * * * EXAMINATION: XR FOOT 3V AP/LAT/OBL LT CLINICAL HISTORY: Left foot pain Technique: XR FOOT 3V AP/LAT/OBL LT -- LEFT with 3 views on 3 images Comparison: None RESULT: No acute fracture or dislocation. 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 Vascular calcifications are noted. IMPRESSION IMPRESSION: No acute osseous abnormality Podiatry Teacher: PAZ Transcribe Date/Time: Feb 07 2023 4:09P Dictated by : MINERVA PATRICK MD - METHYLPREDNISOLONE 4 MG TABLETS IN A DOSE PACK Was educated about proper use of medication and supportive therapies. Patient was educated if signs and symptoms do not seem to be alleviated with the steroids that she should follow-up with primary care. Patient was okay with this care plan. J Luis Sanches APRN.[employer] documented in this encounter [facility] 02-03-2023 Miscellaneous Notes I attempted to call patient to follow-up on her wound culture. It was positive for MRSA which is resistant to the Augmentin she is on. Her phone number is not working, the phone number listed for her daughter is the wrong phone number. I did send in doxycycline to treat the MRSA. Edit: I called the pharmacy and they had a different phone number and than is listed in her chart. I did update her phone number and was able to get a hold of the patient and let her know the above. documented in this encounter [facility] 01-31-2023 Note HNO ID: [id number] Author: Alex Cartwright MD Service: ? Author Type: Physician Type: Progress Notes Filed: 01/31/2023 2:39 PM Note Text: Patient presents with: Derm Problem: Dog scratches on fifth digits x2 weeks HPI: Skin Lesion: Location: 5th fingers Duration: initially scratched by her puppy about 2 weeks ago (daughter thinks they might be bites) Pruritis/Pain: improving pain Change: worsening redness Drainage/blister/pustule/ulcerati on: red, pustules Treatment: peroxide, neosporin Started prednisone this morning. Remote right pinky fracture. Last Tdap 05/13/2021. MEDICATIONS: predniSONE (DELTASONE) 20 mg tablet TAKE 2 (TWO) TABLETS BY MOUTH EVERY DAY for FOUR days then 1 (ONE) TABLET EVERY DAY for 2 (TWO) days rOPINIRole (REQUIP) 0.5 mg tablet Take 0.5-1 mg by mouth daily at bedtime. amLODIPine (NORVASC) 10 mg tablet Take 10 mg by mouth daily at bedtime. VITAMIN B-12 1,000 mcg TbER Take 1 tablet by mouth every afternoon. meloxicam (MOBIC) 15 mg tablet Take 1 tablet by mouth every afternoon. BREO ELLIPTA 200-25 mcg/dose inhaler Inhale 1 puff by mouth daily with good oral care gabapentin 300 mg Tb24 Take 300 mg by mouth daily at bedtime. HYDROcodone-Acetaminophen (VICODIN ES) 7.5-300 mg tab Take 7.5-325 tablets by mouth every 6 hours as needed. CALCIUM CARB/VIT D3/MINERALS (CALCIUM 600 + MINERALS ORAL) Take by mouth once daily. MULTIVITAMIN ORAL Take by mouth once daily. ascorbic acid (VITAMIN C) 500 mg tablet Take 500 mg by mouth once daily. metoprolol succinate ER (TOPROL XL) 50 mg 24 hr tablet Take 50 mg by mouth once daily. Levothyroxine 50 mcg cap Take by mouth once daily. fluticasone-salmeterol (ADVAIR) 250-50 mcg/dose dsdv Inhale 1 Puff as instructed twice daily. omeprazole (PRILOSEC) 20 mg capsule Take 20 mg by mouth once daily. pravastatin (PRAVACHOL) 80 mg tablet Take 80 mg by mouth once daily. montelukast (SINGULAIR) 10 mg tablet Take 10 mg by mouth daily at bedtime. Cetirizine 10 mg cap Take by mouth daily at bedtime. hydrochlorothiazide (HYDRODIURIL, ESIDRIX) 25 mg tablet Take 25 mg by mouth once daily. fluconazole (DIFLUCAN) 100 mg tablet Take 100 mg by mouth once daily. (Patient not taking: Reported on 01/31/2023) ALLERGIES: ALLERGIES Allergen Reactions Acetaminophen-Codei* Anaphylaxis Seasonal Allergies Other: See Comments VITALS: BP 126/84 Pulse 98 Temp 36.4 ?C (97.5 ?F) Resp 18 Wt 71.1 kg (156 lb 12.8 oz) SpO2 96% BMI 26.91 kg/m? PE: Pleasant, in no acute distress. SKIN: bilateral 5th fingers middle and distal phalanges have healing punctures and abrasions with hyperpigmentation and minimal eschar. There are scattered pin-point vesicles on the left. There are a couple pustules on the right (dorsal distal phalange and ulnar aspect of the middle phalange) with scattered red macules; no induration. There are degenerative changes of the finger joints. Full ROM without pain. ASSESSMENT/PLAN: 1. Infected finger abrasion, initial encounter - ICD9: 915.1, ICD10: S60.419A, L08.9 (primary diagnosis) 2. Dog scratch - ICD9: 919.0, E906.8, ICD10: W54.8XXA The right finger does have pustules and macules suggesting infection. The left finger looks like she may have an allergic reaction to neosporin. Unlikely to develop HSV on both fingers. - ABSCESS AND WOUND CULTURE WITH GRAM STAIN - middle phalange pustule pricked with 18g syringe needle and small purulent material cultured. Dressed with an adhesive bandage. - AMOXICILLIN 875 MG-POTASSIUM CLAVULANATE 125 MG TABLET Avoid neosporin for possible contact allergy. Follow up with signs of worsening infection such as increasing redness, pain, swelling, purulent drainage, or fever/malaise. Alex Cartwright MD [facility] 07-09-2022 Hospital Discharg e instructions Patient Education 07/09/2022 13:02:52 Shoulder Joint Replacement, Care After Shoulder Joint Replacement, Care After This sheet gives you information about how to care for yourself after your procedure. Your health care provider may also give you more specific instructions. If you have problems or questions, contact your health care provider. What can I expect after the procedure? After your procedure, it is common to have: A bruised and stiff shoulder. A bruised and stiff arm. Some pain. Follow these instructions at home: If you have a sling: Wear the sling as told by your health care provider. Remove it only as told by your health care provider. Loosen the sling if your fingers tingle, become numb, or turn cold and blue. Keep the sling clean. If the sling is not waterproof: ?Do not let it get wet. ?Cover it with a watertight covering when you take a bath or a shower. Bathing Do not take baths, swim, or use a hot tub until your health care provider approves. Ask your health care provider if you can take showers. You may only be allowed to take sponge baths for bathing. If your sling is not waterproof, cover it with a watertight covering when you take a bath or a shower. Keep the bandage (dressing) dry until your health care provider says it can be removed. Managing pain, stiffness, and swelling If directed, put ice on the affected area. ?If you have a removable sling, remove it as told by your health care provider. ?Put ice in a plastic bag. ?Place a towel between your skin and the bag. ?Leave the ice on for 20 minutes, 2 3 times a day. Move your fingers often to avoid stiffness and to lessen swelling. Driving Do not drive or use heavy machinery while taking prescription pain medicine. Do not drive for 2 4 weeks after surgery or as told by your health care provider. Medicine Take [id number] and prescription medicines only as told by your health care provider. If you were prescribed an antibiotic medicine, use it as told by your health care provider. Do not stop using the antibiotic even if you start to feel better. Incision care Follow instructions from your health care provider about how to take care of your incision area. Make sure you: ?Wash your hands with soap and water before you change your bandage (dressing). If soap and water are not available, use hand employment supervisor. ?Change your dressing as told by your health care provider. ?Leave wagner, stitches (sutures), skin glue, or adhesive strips in place. These skin closures may need to stay in place for 2 weeks or longer. If adhesive strip edges start to loosen and curl up, you may trim the loose edges. Do not remove adhesive strips completely unless your health care provider tells you to do that. If you have a tube to remove drainage, follow instructions from your health care provider about caring for it. Do not remove the drain tube or any dressings around the tube opening unless your health care provider approves. Check your incision area every day for signs of infection. Check for: ?More redness, swelling, or pain. ?More fluid or blood. ?Warmth. ?Pus or a bad smell. Activity Do not use your arm to push yourself up in bed or from a chair. This requires too much muscle. Follow lifting restrictions as told: ?Do not lift anything that is heavier than a cup of coffee for the first 6 weeks after surgery, or as told by your health care provider. ?Do not lift anything that is heavier than 10 lb (4.5 kg) for 6 months, or as told by your health care provider. Do exercises, including physical therapy, as told by your health care provider. Try not to overuse your shoulder. This includes repetitive pushing or pulling. Early overuse of the shoulder may result in later problems. (Overusing the shoulder is easy to do when your pain goes away for the first time.) Avoid overstretching your arm for 6 weeks after surgery, or as told by your health care provider. Avoid sitting for a long time without moving. Get up and move around one or more times every few hours. Ask for help with some activities. Your health care provider may be able to suggest a clinic or agency for this if you do not have home support. Do not participate in contact sports. General instructions Keep all follow-up visits as told by your health care provider. This is important. Do not use any products that contain nicotine or tobacco, such as cigarettes and e-cigarettes. These can delay healing. If you need help quitting, ask your health care provider. Contact a health care provider if: You develop a rash. You have a fever. You have more redness, swelling, or pain in the incision area. You have more fluid or blood coming from your incision area. You have more pain when moving your shoulder. Get help right away if: Your incision area feels warm to the touch. You have pus or a bad smell coming from your incision area. The edges of the incision site break open after sutures have been removed. You have chest pain or shortness of breath. Summary It is common to have pain and stiffness in your shoulder and arm after the procedure. Put ice on the affected area and take pain medicine as told by your health care provider. Do not use your arm to push yourself up in bed or from a chair. Do exercises, including physical therapy, as told by your health care provider. Check your incision area daily. Call your health care provider if you see signs of infection. This information is not intended to replace advice given to you by your health care provider. Make sure you discuss any questions you have with your health care provider. Document Released: 01/14/2006 Document Revised: 10/19/2019 Document Reviewed: 04/11/2017 [employer] Patient Education 2020 [employer]. 07/07/2022 08:32:43 5 - [facility] Post-op Instruction 02/2017 ([id number]) [facility] Post-operative Instructions PLEASE FOLLOW [facility] POST-OP INSTRUCTIONS GIVEN WATCH FOR SIGNS OF INFECTION: call the office ([phone]) if experencing any of the following: (Usually appears 36-48 hours after surgery) Increased temperature (101 degrees Fahrenheit or higher) Redness or swelling Increased uncontrolled pain Foul odor or drainage Calf discomfort Significant swelling Or if having any chest pain, shortness of breath, or difficulty breathing or swallowing call the office or go the nearest Emergency Room. If you have any questions, please call your doctor at the number listed on your follow up instructions. Form: 338A ([id number]) R: 11/14 Follow Up Care 05/21/2022 09:31:51 With:Eulalia Bridges PT Address: When:07/20/2022 14:00:00 Comments:Follow-up as scheduled With:TANNER HAHN PA-C, Orthopedic Address: [facility] [address] [place] [id number] When:07/16/2022 Comments:Follow-up as scheduled [facility] 07-09-2022 Note Discharge Instructions Thank you for allowing [facility] to assist you with your healthcare needs. The following is important discharge information regarding your hospital visit. Your Care Team CHERISE HAMMOND MD Your Diagnosis Osteoarthritis HTN (hypertension) Type 2 diabetes mellitus Asthma Fall Dizzy Status post reverse total arthroplasty of right shoulder What to do next Instructions From Your Doctor You were initially admitted for a right total shoulder replacement but ended up staying in the hospital longer due to dizziness and unsteadiness after surgery. We are not completely sure of what caused this - it may be a mild urinary tract infection vs medications you were given during surgery. In any event, you stated that you feel much better today and PT felt that you are safe to go home with your daughter staying with you for a few days. We will continue an oral antibiotic for about 5 more days and that should cover your urinary tract infection. Please follow-up with [facility] as scheduled. Follow Up Appointments Follow Up with Eulalia Bridges PT When 07/20/2022 02:00 PM EST Why: Follow-up as scheduled Where: Follow Up with TANNER HAHN PA-C, Orthopedic When 07/16/2022 01:45 AM EST Why: Follow-up as scheduled Where: [facility] [address] [place] [id number]- The Following Activity and Diet Have Been Ordered for You Discharge Activity - Ordered -- Resume your pre-hospitalization activity, 07/09/22 13:05:00 EST Discharge Diet - Ordered -- No changes were made to your diet during your hospital stay. Please resume your pre hospitalization diet on discharge., 07/09/22 13:05:00 EST The Following Equipment Has Been Ordered for You Home Equipment - None No qualifying data available. The Following Treatments Have Been Ordered for You Discharge Labs No qualifying data available. Discharge Radiology No qualifying data available. Other Therapies No qualifying data available. Post Acute Orders No qualifying data available. Someone Will Contact You Regarding These Home Health Referrals No home referrals have been ordered for you. No one will call you. Allergies NK[facility] Medications Please ask your primary doctor or pharmacist before taking any other medication not listed, including over the counter drugs, herbal medications, vitamins and or supplements as they may interact with your home medications. What How Much When Why Instructions Last Dose New cefdinir (cefdinir 300 mg oral capsule) 1 cap by mouth Every 12 hours Duration: 5 Days Pickup at [facility] Unchanged acetaminophen (acetaminophen 500 mg oral tablet) 2 tab(s) by mouth Three (3) times a day as needed for as needed for pain not to exceed 3000 mg/ day Pickup at [facility] Unchanged albuterol (Albuterol (Eqv-ProAir HFA) 90 mcg/ inh inhalation aerosol) INHALE 2 puffs by mouth up to four times daily as needed for Shortness of breath or wheezing Unchanged amLODIPine (amLODIPine 10 mg oral tablet) TAKE 1 TABLET BY MOUTH EVERY DAY AT BEDTIME Unchanged ascorbic acid (Vitamin C 1000 mg oral tablet) 1 tab(s) by mouth Once a day Unchanged aspirin (aspirin 81 mg oral delayed release tablet) 1 tab(s) by mouth Two (2) times a day Duration: 30 Days Take 81 mg aspirin twice daily with food for 4 weeks postoperatively for DVT prophylaxis. Pickup at [facility] Unchanged baclofen (baclofen 20 mg oral tablet) 1 tab(s) by mouth Three (3) times a day Unchanged benzonatate (benzonatate 100 mg oral capsule) TAKE 1 CAPSULE THREE TIMES DAILY NEEDED Unchanged cetirizine (cetirizine 10 mg oral tablet) 1 tab(s) by mouth Two (2) times a day Unchanged cholecalciferol (Vitamin D3 25 mcg (1000 intl units) oral capsule) 1 cap by mouth Every day Unchanged docusate-senna (Senokot S 50 mg-8.6 mg oral tablet) 2 tab(s) by mouth Two (2) times a day Duration: 3 Days Take until first bowel movement, then as needed Pickup at [facility] Unchanged famotidine (famotidine 40 mg oral tablet) Take 1 tablet by mouth daily Unchanged ferrous sulfate (FeroSul 325 mg (65 mg elemental iron) oral tablet) TAKE 1 TABLET by mouth daily Unchanged fluticasone-vilanterol (Breo Ellipta 200 mcg-25 mcg/ inh inhalation powder) Inhale 1 puff by mouth daily with good oral care Unchanged gabapentin (gabapentin 300 mg oral capsule) 1 cap by mouth Three (3) times a day Unchanged levothyroxine (levothyroxine 137 mcg (0.137 mg) oral tablet) TAKE 1 TABLET BY MOUTH EVERY DAY Unchanged meloxicam (Mobic 7.5 mg oral tablet) 1 tab(s) by mouth Twice daily with meals Do not take any other nonsteroidal anti-inflammatories while on meloxicam/ Mobic Pickup at [facility]30 Unchanged metFORMIN (metFORMIN 500 mg oral tablet (IR)) 1 tab(s) by mouth Two (2) times a day Unchanged metoprolol (metoprolol succinate 50 mg oral tablet, extended release) 1 tab(s) by mouth Once a day Unchanged mirtazapine (mirtazapine 7.5 mg oral tablet) TAKE 1/ 2 (ONE-HALF) TO 1 (ONE) TABLET AT BEDTIME Unchanged montelukast (montelukast 10 mg oral tablet) 1 tab(s) by mouth Once a day Unchanged olmesartan (olmesartan 20 mg oral tablet) TAKE 1 TABLET BY MOUTH DAILY Unchanged oxyCODONE (oxyCODONE 5 mg oral tablet ( IMMEDIATE release )) See instructions Status post reverse total arthroplasty of right shoulder 1-2 tab(s) Oral q4h Pickup at [facility] Unchanged pantoprazole (pantoprazole 40 mg oral enteric coated tablet) TAKE 1 TABLET BY MOUTH DAILY Unchanged rOPINIRole (rOPINIRole 0.5 mg oral tablet) TAKE 1 TO 2 TABLETS AT BEDTIME Unchanged rosuvastatin (rosuvastatin 5 mg oral tablet) TAKE 1 TABLET BY MOUTH AT BEDTIME Unchanged vitamin E (vitamin E 1000 intl units oral capsule) 1 cap by mouth Once a day Pharmacy Information [facility]: [address] [place], [place] [id number] [phone] What When Comments Stop Taking acetaminophen-hydrocodone (acetaminophen-hydrocodone 325 mg-7.5 mg oral tablet) TAKE 1 TABLET BY MOUTH TWICE DAILY FOR 28 DAYS Please take this list to your next doctor s visit. Bring all medications you take, including over the counter medications, herbals and other supplements with you to your doctor s visit. Patients and families are reminded to discard old lists and to update any records with all medication providers or retail pharmacies. Medication Leaflets docusate and senna (DOK shaunna sate and SEN a) Colace 2-in-1, Dok Plus, Arminda-Colace, Senexon-S, Senna Plus, Senna S, Senna-Time S, Senokot S, SenoSol-SS, Stool Softener with Laxative What is the most important information I should know about docusate and senna? Use exactly as directed on the label, or as prescribed by your doctor. What is docusate and senna? Docusate is a stool softener. Senna is a laxative. Docusate and senna is a combination medicine used to treat occasional constipation. Docusate and senna may also be used for purposes not listed in this medication guide. What should I discuss with my healthcare provider before using docusate and senna? You should not use this medicine if you are allergic to docusate or senna, or if you are also taking mineral oil. Ask a doctor or pharmacist if this medicine is safe to use if you have ever had: nausea or vomiting; stomach pain; a sudden change in bowel habits that lasts for 2 weeks or longer; or an intestinal disorder such as Crohn's disease or ulcerative colitis. Ask a doctor before using this medicine if you are or . Do not give this medicine to a child younger than 2 years old without medical advice. How should I use docusate and senna? Use exactly as directed on the label, or as prescribed by your doctor. Take docusate and senna with a full glass of water. It may be best to take this medicine at night or at bedtime. Docusate and senna should cause you to have a bowel movement within 6 to 12 hours. Do not take docusate and senna for longer than 7 days in a row, unless your doctor tells you to. Call your doctor if your constipation does not improve or if it gets worse after taking docusate and senna. Store at room temperature away from moisture and heat. What happens if I miss a dose? Since docusate and senna is used when needed, you may not be on a dosing schedule. Skip any missed dose if it's almost time for your next dose. Do not use two doses at one time. What happens if I overdose? Seek emergency medical attention or call the Poison Help line at . Overdose symptoms may include nausea, vomiting, stomach pain, or diarrhea. What should I avoid while using docusate and senna? Ask a doctor or pharmacist before using any other laxative or other stool softener that may contain ingredients similar to docusate or senna. What are the possible side effects of docusate and senna? Get emergency medical help if you have signs of an allergic reaction: hives; difficulty breathing; swelling of your face, lips, tongue, or throat. Stop using docusate and senna and call your doctor at once if you have: rectal bleeding; severe stomach pain, nausea, vomiting; or no bowel movement. Common side effects may include: gas, bloating; diarrhea; or mild nausea. This is not a complete list of side effects and others may occur. Call your doctor for medical advice about side effects. You may report side effects to FDA at 4-617-DMO-0995. What other drugs will affect docusate and senna? Other drugs may affect docusate and senna, including prescription and bchr-dxo-qdwswfb medicines, vitamins, and herbal products. Tell your doctor about all your current medicines and any medicine you start or stop using. Where can I get more information? Your pharmacist can provide more information about docusate and senna. Remember, keep this and all other medicines out of the reach of children, never share your medicines with others, and use this medication only for the indication prescribed. Every effort has been made to ensure that the information provided by [employer]') is accurate, up-to-date, and complete, but no guarantee is made to that effect. Drug information contained herein may be time sensitive. [employer] information has been compiled for use by healthcare practitioners and consumers in the [place] and therefore [employer] does not warrant that uses outside of the [place] are appropriate, unless specifically indicated otherwise. [employer] drug information does not endorse drugs, diagnose patients or recommend therapy. [employer] drug information is an informational resource designed to assist licensed healthcare practitioners in caring for their patients and/or to serve consumers viewing this service as a supplement to, and not a substitute for, the expertise, skill, knowledge and judgment of healthcare practitioners. The absence of a warning for a given drug or drug combination in no way should be construed to indicate that the drug or drug combination is safe, effective or appropriate for any given patient. [employer] does not assume any responsibility for any aspect of healthcare administered with the aid of information [employer] provides. The information contained herein is not intended to cover all possible uses, directions, precautions, warnings, drug interactions, allergic reactions, or adverse effects. If you have questions about the drugs you are taking, check with your doctor, nurse or pharmacist. Copyright 0065-3750 [employer]. Version: 3.02. Revision Date: 09/24/2020. aspirin (oral) ( pir in) Arthritis Pain, Aspi-Cor, Aspir-Low, Nancy Plus, Durlaza, Ecotrin, Miniprin, Vazalore What is the most important information I should know about aspirin? Aspirin can cause Zahida's syndrome, a serious and sometimes fatal condition in children. What is aspirin? Aspirin is a salicylate (ni-ICK-rq-ate) that is used to treat pain, and reduce fever or inflammation. Aspirin is sometimes used to treat or prevent heart attacks, strokes, and chest pain (angina). Aspirin should be used for these conditions only under the supervision of a doctor. Aspirin may also be used for purposes not listed in this medication guide. What should I discuss with my healthcare provider before taking aspirin? Using aspirin in a child or teenager with flu symptoms or chickenpox can cause a serious or fatal condition called Zahida's syndrome. You should not use aspirin if you are allergic to it, or if you have: a recent history of stomach or intestinal bleeding; a bleeding disorder such as hemophilia; or if you have ever had an asthma attack or severe allergic reaction after taking aspirin or an NSAID (non-steroidal anti-inflammatory drug). Tell your doctor if you have ever had: asthma or seasonal allergies; stomach ulcers; liver disease; kidney disease; a bleeding or blood clotting disorder; gout; or heart disease, high blood pressure, or congestive heart failure. Taking aspirin during late may cause bleeding in the mother or the baby during delivery. Tell your doctor if you are or plan to become . You should not breastfeed while using this medicine. How should I take aspirin? Use exactly as directed on the label, or as prescribed by your doctor. Always follow directions on the medicine label about giving aspirin to a child. Take with food if aspirin upsets your stomach. You must chew the chewable tablet before you swallow it. Do not crush, chew, break, or open an enteric-coated or delayed/extended-release pill. Swallow it whole. Tell your doctor if you have a planned surgery. Store at room temperature away from moisture and heat. Do not use aspirin if you smell a strong vinegar odor in the aspirin bottle. The medicine may no longer be effective. What happens if I miss a dose? Aspirin is used when needed. If you are on a dosing schedule, skip any missed dose. Do not use two doses at one time. What happens if I overdose? Seek emergency medical attention or call the Poison Help line at . Overdose may cause stomach pain, vomiting, diarrhea, vision or hearing problems, fast or slow breathing, or confusion. What should I avoid while taking aspirin? Avoid alcohol. Heavy drinking can increase your risk of stomach bleeding. Avoid taking ibuprofen if you take aspirin to prevent stroke or heart attack. Ibuprofen can make aspirin less effective in protecting your heart and blood vessels. Ask your doctor how far apart your doses should be. Ask a doctor or pharmacist before using other medicines for pain, fever, swelling, or cold/flu symptoms. They may contain ingredients similar to aspirin (such as magnesium salicylate, ibuprofen, ketoprofen, or naproxen). What are the possible side effects of aspirin? Get emergency medical help if you have signs of an allergic reaction: hives; difficult breathing; swelling of your face, lips, tongue, or throat. Stop using aspirin and call your doctor at once if you have: ringing in your ears, confusion, hallucinations, rapid breathing, seizure (convulsions); severe nausea, vomiting, or stomach pain; bloody or tarry stools, coughing up blood or vomit that looks like coffee grounds; fever lasting longer than 3 days; or swelling, or pain lasting longer than 10 days. Common side effects may include: upset stomach, heartburn; drowsiness; or mild headache. This is not a complete list of side effects and others may occur. Call your doctor for medical advice about side effects. You may report side effects to FDA at 3-436-HCA-7895. What other drugs will affect aspirin? Ask your doctor before using aspirin if you take an antidepressant. Taking certain antidepressants with aspirin may cause you to bruise or bleed easily. Ask a doctor or pharmacist before using aspirin with any other medications, especially: a blood thinner (warfarin, Coumadin, Jantoven), or other medication used to prevent blood clots; or other salicylates such as Nuprin Backache Caplet, Kaopectate, KneeRelief, Pamprin Cramp Formula, Pepto-Bismol, Tricosal, Trilisate, and others. This list is not complete. Other drugs may affect aspirin, including prescription and cjho-dei-lxwcyze medicines, vitamins, and herbal products. Not all possible drug interactions are listed here. Where can I get more information? Your pharmacist can provide more information about aspirin. Remember, keep this and all other medicines out of the reach of children, never share your medicines with others, and use this medication only for the indication prescribed. Every effort has been made to ensure that the information provided by [employer] is accurate, up-to-date, and complete, but no guarantee is made to that effect. Drug information contained herein may be time sensitive. [employer] information has been compiled for use by healthcare practitioners and consumers in the [place] and therefore [employer] does not warrant that uses outside of the [place] are appropriate, unless specifically indicated otherwise. [employer] drug information does not endorse drugs, diagnose patients or recommend therapy. [employer] drug information is an informational resource designed to assist licensed healthcare practitioners in caring for their patients and/or to serve consumers viewing this service as a supplement to, and not a substitute for, the expertise, skill, knowledge and judgment of healthcare practitioners. The absence of a warning for a given drug or drug combination in no way should be construed to indicate that the drug or drug combination is safe, effective or appropriate for any given patient. [facility] does not assume any responsibility for any aspect of healthcare administered with the aid of information [facility] provides. The information contained herein is not intended to cover all possible uses, directions, precautions, warnings, drug interactions, allergic reactions, or adverse effects. If you have questions about the drugs you are taking, check with your doctor, nurse or pharmacist. Copyright [id number] [facility]. Version: 16.03. Revision Date: 01/05/2021. meloxicam (oral/injection) (ladan OKS i jaelyn) Anjeso, Mobic, Qmiiz ODT, Vivlodex What is the most important information I should know about meloxicam? Meloxicam can increase your risk of fatal heart attack or stroke. Do not use this medicine just before or after heart bypass surgery (coronary artery bypass graft, or CABG). Meloxicam may also cause stomach or intestinal bleeding, which can be fatal. What is meloxicam? Meloxicam is a nonsteroidal anti-inflammatory drug (NSAID) that is used to treat osteoarthritis or rheumatoid arthritis in adults. Meloxicam is also used to treat juvenile rheumatoid arthritis in children who are at least 2 years old. The Anjeso brand of meloxicam is used to treat moderate to severe pain in adults. Vivlodex is for use only in adults. Qmiiz is for adults and children weighing at least 132 pounds (60 kilograms). Meloxicam may also be used for purposes not listed in this medication guide. What should I discuss with my healthcare provider before taking meloxicam? Meloxicam can increase your risk of fatal heart attack or stroke, even if you don't have any risk factors. Do not use this medicine just before or after heart bypass surgery (coronary artery bypass graft, or CABG). Meloxicam may also cause stomach or intestinal bleeding, which can be fatal. These conditions can occur without warning while you are using meloxicam, especially in older adults. You should not use meloxicam if you are allergic to it, or if you have ever had an asthma attack or severe allergic reaction after taking aspirin or an NSAID. You should not take meloxicam disintegrating tablets (Qmiiz ODT) if you have phenylketonuria (PKU). This form of meloxicam contains phenylalanine. Tell your doctor if you have ever had: heart disease, high blood pressure, high cholesterol, diabetes, or if you smoke; a heart attack, stroke, or blood clot; ulcers or bleeding in your stomach; asthma; kidney disease (or if you are on dialysis); liver disease; or fluid retention. If you are , you should not take meloxicam unless your doctor tells you to. Taking an NSAID during the last 20 weeks of can cause serious heart or kidney problems in the unborn baby and possible complications with your . Meloxicam may cause a delay in ovulation (the release of an egg from an ovary). You should not take meloxicam if you are undergoing fertility treatment, or are otherwise trying to get . It may not be safe to breastfeed while using this medicine. Ask your doctor about any risk. Meloxicam is not approved for use by anyone younger than 2 years old. How should I take meloxicam? Follow all directions on your prescription label and read all medication guides. Use the lowest dose that is effective in treating your condition. Meloxicam oral is taken by mouth. Meloxicam injection is given as an infusion into a vein. A healthcare provider will give you this injection. You may take meloxicam oral with or without food. Remove an orally disintegrating tablet from the package only when you are ready to take the medicine. Place the tablet in your mouth and allow it to dissolve, without chewing. Swallow several times as the tablet dissolves. Your dose needs may change if you switch to a different brand, strength, or form of this medicine. Avoid medication errors by using only the form and strength your doctor prescribes. Meloxicam doses are based on weight (especially in children and teenagers). Your dose needs may change if you gain or lose weight. If you use this medicine long-term, you may need frequent medical tests. Store meloxicam tablets or capsules at room temperature, away from moisture and heat. Keep the bottle tightly closed when not in use. What happens if I miss a dose? Take the medicine as soon as you can, but skip the missed dose if it is almost time for your next dose. Do not take two doses at one time. What happens if I overdose? Seek emergency medical attention or call the Poison Help line at . What should I avoid while taking meloxicam? Avoid alcohol. Heavy drinking can increase your risk of stomach bleeding. Avoid taking aspirin while you are taking meloxicam, unless your doctor tells you to. Ask a doctor or pharmacist before using other medicines for pain, fever, swelling, or cold/flu symptoms. They may contain ingredients similar to meloxicam (such as aspirin, ibuprofen, ketoprofen, or naproxen). What are the possible side effects of meloxicam? Get emergency medical help if you have signs of an allergic reaction (hives, difficult breathing, swelling in your face or throat) or a severe skin reaction (fever, sore throat, burning eyes, skin pain, red or purple skin rash with blistering and peeling). Get emergency medical help if you have signs of a heart attack or stroke: chest pain spreading to your jaw or shoulder, sudden numbness or weakness on one side of the body, slurred speech, leg swelling, feeling short of breath. Stop using meloxicam and call your doctor at once if you have: the first sign of any skin rash, no matter how mild; shortness of breath (even with mild exertion); swelling or rapid weight gain; signs of stomach bleeding--bloody or tarry stools, coughing up blood or vomit that looks like coffee grounds; liver problems--nausea, upper stomach pain, itching, tired feeling, flu-like symptoms, loss of appetite, dark urine, lilliam-colored stools, jaundice (yellowing of the skin or eyes); low red blood cells (anemia)--pale skin, unusual tiredness, feeling light-headed, cold hands and feet; or kidney problems--little or no urination, swelling in your feet or ankles, feeling tired or short of breath. Common side effects may include: stomach pain, nausea, vomiting, heartburn; diarrhea, constipation, gas; dizziness; or cold symptoms, flu symptoms. This is not a complete list of side effects and others may occur. Call your doctor for medical advice about side effects. You may report side effects to FDA at 6-368-LCY-3169. What other drugs will affect meloxicam? Ask your doctor before using meloxicam if you take an antidepressant. Taking certain antidepressants with an NSAID may cause you to bruise or bleed easily. Tell your doctor about all your other medicines, especially: cyclosporine; lithium; methotrexate; pemetrexed; sodium polystyrene sulfonate (Kayexalate); a blood thinner (warfarin, Coumadin, Jantoven); heart or blood pressure medication, including a diuretic or 'water pill'; or steroid medicine (such as prednisone). This list is not complete. Other drugs may affect meloxicam, including prescription and ubhk-ehy-bnkjywy medicines, vitamins, and herbal products. Not all possible drug interactions are listed here. Where can I get more information? Your pharmacist can provide more information about meloxicam. Remember, keep this and all other medicines out of the reach of children, never share your medicines with others, and use this medication only for the indication prescribed. Every effort has been made to ensure that the information provided by [employer] is accurate, up-to-date, and complete, but no guarantee is made to that effect. Drug information contained herein may be time sensitive. [employer] information has been compiled for use by healthcare practitioners and consumers in the [place] and therefore [employer] does not warrant that uses outside of the [place] are appropriate, unless specifically indicated otherwise. [employer] drug information does not endorse drugs, diagnose patients or recommend therapy. [employer] drug information is an informational resource designed to assist licensed healthcare practitioners in caring for their patients and/or to serve consumers viewing this service as a supplement to, and not a substitute for, the expertise, skill, knowledge and judgment of healthcare practitioners. The absence of a warning for a given drug or drug combination in no way should be construed to indicate that the drug or drug combination is safe, effective or appropriate for any given patient. [employer] does not assume any responsibility for any aspect of healthcare administered with the aid of information [employer] provides. The information contained herein is not intended to cover all possible uses, directions, precautions, warnings, drug interactions, allergic reactions, or adverse effects. If you have questions about the drugs you are taking, check with your doctor, nurse or pharmacist. Copyright 7487-7394 [employer]. Version: 14.. Revision Date: 05/13/2020. acetaminophen (oral) (a SEET a MIN oh fen) Actamin, Anacin AF, Aurophen, Bromo [place], Children's Tylenol, Mapap, M-Pap, Pharbetol, Silapap Childrens, Tactinal, Tempra Quicklets, Tycolene, Tylenol, Vitapap What is the most important information I should know about acetaminophen? An overdose of acetaminophen can damage your liver or cause . Call your doctor at once if you have upper stomach pain, loss of appetite, dark urine, or jaundice (yellowing of your skin or eyes). Stop taking this medicine and get medical help if you have skin redness or a blistering rash. What is acetaminophen? Acetaminophen is used to reduce fever and relieve minor pain caused by conditions such as colds or flu, headache, muscle aches, arthritis, and menstrual cramps. Acetaminophen may also be used for purposes not listed in this medication guide. What should I discuss with my healthcare provider before taking acetaminophen? You should not take acetaminophen if you are allergic to it, or if you take other medications that contain acetaminophen. Ask a doctor or pharmacist if this medicine is safe to use if you've ever had cirrhosis of the liver, or if you drink alcohol daily. Ask a doctor before using this medicine if you are or . How should I take acetaminophen? Use exactly as directed on the label, or as prescribed by your doctor. An acetaminophen overdose can damage your liver or cause . Adults and teenagers at least 12 years old: Do not take more than 1000 milligrams (mg) at one time or more than 4000 mg in 24 hours. Children younger than 12 years old: Do not take more than 5 doses of children's formula acetaminophen in 24 hours. Do not give extra-strength acetaminophen to a child younger than 12 years old without medical advice. A child's dose is based on age and weight. Carefully follow the dosing instructions provided with this medicine. Ask a doctor before giving this medicine to a child younger than 2 years. Acetaminophen made for infants comes with its own medicine dropper or oral syringe. Measuring with the wrong device may cause an overdose. Use only the provided dosing device provided to measure an 's dose. Acetaminophen comes in many different forms such as capsules, liquid, chewable or disintegrating tablets, and dissolving powders or granules. Read and carefully follow any Instructions for Use provided with your medicine. Ask your doctor or pharmacist if you need help. Stop taking acetaminophen and call your doctor if: you still have a sore throat after 2 days of use; you still have a fever after 3 days of use; you still have pain after 7 days of use (or 5 days if treating a child); you have a skin rash, ongoing headache, nausea, vomiting, redness or swelling; or your symptoms get worse, or if you have any new symptoms. Taking acetaminophen may cause false results with certain blood glucose monitors. If you have diabetes, ask your doctor about the best way to monitor your blood sugar levels while using acetaminophen. Store at room temperature away from heat and moisture. What happens if I miss a dose? Acetaminophen is used when needed. If you are on a dosing schedule, skip any missed dose. Do not use two doses at one time. What happens if I overdose? Seek emergency medical attention or call the Poison Help line at . An overdose can be fatal. Overdose symptoms include vomiting, stomach pain, and yellowing of your skin or eyes. What should I avoid while taking acetaminophen? Avoid using other medicines that may contain acetaminophen. Avoid drinking alcohol. What are the possible side effects of acetaminophen? Get emergency medical help if you have signs of an allergic reaction: hives; difficulty breathing; swelling of your face, lips, tongue, or throat. In rare cases, acetaminophen may cause a severe skin reaction that can be fatal, even if you took acetaminophen in the past and had no reaction. Stop taking this medicine and call your doctor right away if you have skin redness or a rash that spreads and causes blistering and peeling. Stop taking acetaminophen and call your doctor at once if you have signs of liver problems: stomach pain (upper right side); loss of appetite; tiredness, itching; dark urine, lilliam-colored stools; or jaundice (yellowing of the skin or eyes). Less serious side effects may be more likely, and you may have none at all. This is not a complete list of side effects and others may occur. Call your doctor for medical advice about side effects. You may report side effects to FDA at 3-410-QKT-0689. What other drugs will affect acetaminophen? Other drugs may affect acetaminophen, including prescription and gbet-lgj-bbifjug medicines, vitamins, and herbal products. Tell your doctor about all other medicines you use. Where can I get more information? Your pharmacist can provide more information about acetaminophen. Remember, keep this and all other medicines out of the reach of children, never share your medicines with others, and use this medication only for the indication prescribed. Every effort has been made to ensure that the information provided by [employer]') is accurate, up-to-date, and complete, but no guarantee is made to that effect. Drug information contained herein may be time sensitive. [employer] information has been compiled for use by healthcare practitioners and consumers in the [place] and therefore [employer] does not warrant that uses outside of the [place] are appropriate, unless specifically indicated otherwise. [employer] drug information does not endorse drugs, diagnose patients or recommend therapy. [employer] drug information is an informational resource designed to assist licensed healthcare practitioners in caring for their patients and/or to serve consumers viewing this service as a supplement to, and not a substitute for, the expertise, skill, knowledge and judgment of healthcare practitioners. The absence of a warning for a given drug or drug combination in no way should be construed to indicate that the drug or drug combination is safe, effective or appropriate for any given patient. [employer] does not assume any responsibility for any aspect of healthcare administered with the aid of information [employer] provides. The information contained herein is not intended to cover all possible uses, directions, precautions, warnings, drug interactions, allergic reactions, or adverse effects. If you have questions about the drugs you are taking, check with your doctor, nurse or pharmacist. Copyright 6001-6529 [employer] Version: . Revision Date: 08/28/2021. oxycodone (ox i KOE done) Oxaydo, OxyCONTIN, Oxyfast, OxyIR, Roxicodone, Xtampza ER What is the most important information I should know about oxycodone? MISUSE OF OPIOID MEDICINE CAN CAUSE ADDICTION, OVERDOSE, OR . Keep the medication in a place where others cannot get to it. Taking opioid medicine during may cause life-threatening withdrawal symptoms in the . Fatal side effects can occur if you use opioid medicine with alcohol, or with other drugs that cause drowsiness or slow your breathing. What is oxycodone? Oxycodone is an opioid pain medication used to treat moderate to severe pain. The extended-release form of oxycodone is for apgpms-knn-pntjc treatment of pain and should not be used on an as-needed basis for pain. Oxycodone may also be used for purposes not listed in this medication guide. What should I discuss with my healthcare provider before using oxycodone? You should not use oxycodone if you are allergic to it, or if you have: severe asthma or breathing problems; or a blockage in your stomach or intestines. You should not use oxycodone unless you are already using a similar opioid medicine and are tolerant to it. Most brands of oxycodone are not approved for use in people under 18. OxyContin should not be given to a child younger than 11 years old. Tell your doctor if you have ever had: breathing problems, sleep apnea; a head injury, or seizures; drug or alcohol addiction, or mental illness; liver or kidney disease; urination problems; or problems with your gallbladder, pancreas, or thyroid. If you use opioid medicine while you are , your baby could become dependent on the drug. This can cause life-threatening withdrawal symptoms in the baby after it is born. Babies born dependent on opioids may need medical treatment for several weeks. Ask a doctor before using opioid medicine if you are . Tell your doctor if you notice severe drowsiness or slow breathing in the nursing baby. How should I use oxycodone? Follow the directions on your prescription label and read all medication guides. Never use oxycodone in larger amounts, or for longer than prescribed. Tell your doctor if you feel an increased urge to take more of this medicine. Never share opioid medicine with another person, especially someone with a history of drug abuse or addiction. MISUSE CAN CAUSE ADDICTION, OVERDOSE, OR . Keep the medication in a place where others cannot get to it. Selling or giving away opioid medicine is against the law. Stop taking all other tybrwf-ulp-xyoba opioid pain medicines when you start taking extended-release oxycodone. Take oxycodone with food. Swallow the capsule or tablet whole to avoid exposure to a potentially fatal overdose. Do not crush, chew, break, open, or dissolve. If you cannot swallow a capsule whole, open it and sprinkle the medicine into a spoonful of pudding or applesauce. Swallow the mixture right away without chewing. Do not save it for later use. Never crush or break an oxycodone pill to inhale the powder or mix it into a liquid to inject the drug into your vein. This can cause in . Measure liquid medicine carefully. Use the dosing syringe provided, or use a medicine dose-measuring device (not a kitchen spoon). You should not stop using oxycodone suddenly. Follow your doctor's instructions about tapering your dose. Store at room temperature, away from heat, moisture, and light. Keep track of your medicine. Oxycodone is a drug of abuse and you should be aware if anyone is using your medicine improperly or without a prescription. Do not keep leftover opioid medication. Just one dose can cause in someone using this medicine accidentally or improperly. Ask your pharmacist where to locate a drug take-back disposal program. If there is no take-back program, flush the unused medicine down the toilet. What happens if I miss a dose? Since oxycodone is used for pain, you are not likely to miss a dose. Skip any missed dose if it is almost time for your next dose. Do not use two doses at one time. What happens if I overdose? Seek emergency medical attention or call the Poison Help line at . An opioid overdose can be fatal, especially in a child or other person using the medicine without a prescription. Overdose symptoms may include severe drowsiness, pinpoint pupils, slow breathing, or no breathing. Your doctor may recommend you get naloxone (a medicine to reverse an opioid overdose) and keep it with you at all times. A person caring for you can give the naloxone if you stop breathing or don't wake up. Your caregiver must still get emergency medical help and may need to perform CPR (cardiopulmonary resuscitation) on you while waiting for help to arrive. Anyone can buy naloxone from a pharmacy or local health department. Make sure any person caring for you knows where you keep naloxone and how to use it. What should I avoid while using oxycodone? Do not drink alcohol. Dangerous side effects or could occur. < (more content not included)... [facility] 07-08-2022 Note Date of Service 07/08/2022 Chief Complaint Dizziness Subjective Patient seen and evaluated while resting in recliner. She states that her right shoulder is doing well but the rest of her is not too good. Patient asked to elaborate on that but will only say that she has been dizzy when she gets up today. Patient advised that it may take time for all the medications she got in surgery to work out of her system. Also, nursing sent a urine last night and it appears that she has a urinary tract infection. That could also contribute to her dizziness. She was started on an IV antibiotic and we will switch her to oral antibiotics as soon as the culture comes back. Patient encouraged to call for help when she need to get up. She denies any fever, chills, cough, shortness of breath, chest pain, abdominal pain, nausea or dysuria. All questions answered. Orthopedics have signed off today and we have assumed primary management of patient. Objective Vitals and Measurements T: 37.0 C (Oral) TMIN: 36.5 C (Oral) TMAX: 37.0 C (Oral) HR: 55(Monitored) RR: 16 BP: 111/97 BP: 149/99(Sitting) BP: 149/70(Supine) SpO2: 97% Intake and Output 7AM Yesterday to 7AM Today Intake and Output (Last 24 hours) Intake Output Total Summary Total Intake 0.00 Total Output 0.00 Fluid Balance 0.00 Physical Exam General: No acute distress. Patient is alert and appropriate. Skin: No rash. Skin is warm, dry and intact. HEENT: Head is normocephalic, atraumatic. Pupils are equal, round and reactive. Neck: Supple. No lymphadenopathy, thyromegaly. Lungs: Bilaterally clear but diminished without crepitation or wheeze. Unlabored. Heart: Heart is regular rhythm, S1, S2. No murmurs, gallops or rubs. Abdomen: Abdomen is soft, nontender. Bowels sounds present in all quadrants. Extremities: No clubbing, cyanosis, or edema. Peripheral pulses palpable. No calf tenderness. Right shoulder surgical dressing is dry and intact. Bruising noted around right side of chest/neck. Neurological: Patient is awake and alert to person, place and time. Following simple commands, moving all extremities. Weight Dosing Weight: 164 kg (07/06/22) Dosing Weight: 164 kg (07/06/22) Medications Medications (34) Active Scheduled: (19) amLODIPine 5 mg tablet 10 mg 2 tab(s), Oral, qHS aspirin 81 mg Chewable 81 mg 1 tab(s), Oral, BID atorvastatin 10 mg tablet 10 mg 1 tab(s), Oral, qHS cefTRIAXone 1 gram(s), IV Piggyback, qDay docusate sodium 100 mg Capsule 100 mg 1 cap(s), Oral, BID docusate-senna (Senokot S) 50 mg-8.6 mg Tablet 2 tab(s), Oral, BID famotidine 20 mg tablet 20 mg 1 tab(s), Oral, qDay ferrous sulfate 325 mg Tablet 325 mg 1 tab(s), Oral, qDay fluticasone-vilanterol 200-25 mcg powder 1 puff(s), Inhalation, qDay levothyroxine 137 mcg tablet 137 mcg 1 tab(s), Oral, qAM losartan 50 mg tablet 50 mg 1 tab(s), Oral, qDay magnesium hydroxide 8% Suspension 30 mL UD 30 mL, Oral, Daily meloxicam 7.5 mg tablet 7.5 mg 1 tab(s), Oral, BIDM metoprolol succinate 50 mg ER tablet 50 mg 1 tab(s), Oral, qDay mirtazapine 15 mg tablet 7.5 mg 0.5 tab(s), Oral, qHS montelukast 10 mg Tablet 10 mg 1 tab(s), Oral, qDay pantoprazole 20 mg EC tablet 40 mg 2 tab(s), Oral, qDay rOPINIRole 1 mg tablet 0.5 mg 0.5 tab(s), Oral, qHS Transderm-Scop patch REMOVAL 1 EA, Miscellaneous, q72h Continuous: (1) Lactated Ringers 1,000 mL 1,000 mL, Intravenous, 100 mL/hr PRN: (14) acetaminophen 325 mg Tablet 650 mg 2 tab(s), Oral, q4h albuterol 90 mcg/inh HFA Inhaler 180 mcg 2 puff(s), Inhalation, QIDRT diphenhydramine 25 mg tablet 25 mg 1 tab(s), Oral, q6h diphenhyDRAMINE 50 mg/mL (1 mL) INJ 25 mg 0.5 mL, IV Push, q6h ketorolac 30 mg/mL (1 mL) vial 15 mg 0.5 mL, IV Push, q6h meperidine 25 mg/mL 1 mL 25 mg 1 mL, IV Bolus, q3h morphine 2 mg/mL 1 mL syringe 2 mg 1 mL, IV Push, q5min ondansetron 2 mg/ 1 mL 2 mL INJ 4 mg 2 mL, IV Push, q8h ondansetron 2 mg/ 1 mL 2 mL INJ 4 mg 2 mL, IV Push, AsDirected oxycodone 5 mg tablet (immediate release) 5 mg 1 tab(s), Oral, q4h oxycodone 5 mg tablet (immediate release) 10 mg 2 tab(s), Oral, q4h prochlorperazine 10 mg/2 mL vial 5 mg 1 mL, IV Push, q6h rOPINIRole 1 mg tablet 0.5 mg 0.5 tab(s), Oral, qHS sodium biphosphate-sodium phosphate 19 gm-7 gm Enema 133 mL, Rectal, qDay Lab Results 07/08 05:40 WBC: 14.9 H Hgb: 11.7 L Hct: 35.9 L Platelet: 238 Neutrophil %: 79.1 Glucose Level: 101 Sodium Level: 143 Potassium Level: 4.1 BUN: 21 H Creatinine Lvl (s): 0.90 07/08 00:43 WBC: 17.9 H Hgb: 12.3 Hct: 37.6 Platelet: 246 Neutrophil %: 83.2 H Glucose Level: 124 H Sodium Level: 136 Potassium Level: 4.4 BUN: 23 H Creatinine Lvl (s): 1.03 H 07/07 05:17 WBC: 18.7 H Hgb: 11.8 L Hct: 36.1 L Platelet: 242 Neutrophil %: 91.6 H Glucose Level: 151 H Sodium Level: 140 Potassium Level: 4.9 BUN: 18 Creatinine Lvl (s): 0.92 Imaging Results and Diagnostics XR Chest 1 View Result Date: July 08, 2022 Verified By: CATHY DE LA O MD CLINICAL STATEMENT: IMPRESSION: No acute findings. XR Shoulder Minimum 2 Views Right Result Date: July 07, 2022 Verified By: BRANDY VEGA DO CLINICAL STATEMENT: IMPRESSION: Right shoulder arthroplasty in near anatomic alignment. No evidence ofloosening or fracture. CT Head or Brain w/o Contrast Result Date: July 07, 2022 Verified By: VERÓNICA HOLDER MD CLINICAL STATEMENT: IMPRESSION: Mild volume loss and small vessel ischemic disease. XR Shoulder Minimum 2 Views Right Result Date: July 06, 2022 Verified By: VERÓNICA HOLDER MD CLINICAL STATEMENT: IMPRESSION: Right shoulder arthroplasty with immediate postoperative changes. EKG No qualifying data available. Assessment/Plan 1. Osteoarthritis Acute on chronic, s/p right reverse shoulder arthroplasty *POD # 2. *Orthopedics signed off today. 2. HTN (hypertension) Chronic *Continue current home medications. *SBP goal of 140 or less. *Monitor blood pressure per protocol. 3. Type 2 diabetes mellitus Chronic *Blood sugar checks before meals and at bedtime. *Cover with sliding scale insulin. *Blood glucose goal of 180 or less and avoid hypoglycemia. *Resume home insulin. *Continue ADA diet. 4. Asthma Chronic, stable *Continuous pulse oximetry. 5. Fall Acute, new onset *Patient sustained a fall due to dizziness yesterday. She reportedly hit her head and has a hematoma present on the occipital region of her head. Patient had some confusion briefly yesterday but recovered quickly. CT of the head was negative for anything acute. *Baclofen suspended yesterday. *Patient to call out for assistance with ambulating. *Continue PT and OT at therapy direction. 6. Dizzy Acute, unknown etiology, may be medication related *Urine obtained last night and appears to be infected. *Urine culture pending. *Continue Ceftriaxone 1 gram IV daily. DVT prophylaxis with SCDs. Code status: Full Code. Labs, diagnostic test and progress notes reviewed as noted in HPI. Plan of care discussed with patient. All questions answered. Patient verbalizes understanding and is agreeable with plan of care. This case was discussed with collaborating physician, Dr. William Harrington. Time Spent 35 minutes Digitally Signed by KUNAL REESE on 07/08/2022 04:05 PM [facility] 07-08-2022 Note Date of Service July 08, 2022 Subjective The patient was sitting in bedside chair upon examination. Patient denies any chest pain, shortness of breath, nausea or vomiting, or calf pain. She complains of no significant pain for her right shoulder. However, the plan yesterday was for discharge home however she sustained a fall due to dizziness in which patient hit her head. Medicine did work her up with CT scan as well as we order x-ray of the right shoulder. X-ray of the right shoulder was stable with no acute findings for fracture. Has remained having dizziness today. Medicine also did urinalysis in which she is positive for a urinary tract infection. Case was discussed in detail with medicine. Orthopedically with regards to the shoulder patient is doing well however she is having more complications with dizziness and a urinary tract infection. We are going to transfer service over to medicine at this time. Case management is involved with appropriate discharge planning. Physical therapy is recommending continued therapy as patient is a current fall risk. Objective Vitals and Measurements T: 37.0 C (Oral) TMIN: 36.5 C (Oral) TMAX: 37.0 C (Oral) HR: 55(Monitored) RR: 16 BP: 111/97 BP: 149/99(Sitting) BP: 149/70(Supine) SpO2: 97% Intake and Output 7AM Yesterday to 7AM Today Intake and Output (Last 24 hours) Intake Output Total Summary Total Intake 0.00 Total Output 0.00 Fluid Balance 0.00 Physical Exam Vital signs stable, afebrile Dressing is clean dry and intact UltraSling fitting appropriately Sensation is intact to axillary, radial, median, and ulnar distribution Motor intact with patient able to make okay sign, cross fingers, and thumbs up Weight Dosing Weight: 164 kg (07/06/22) Dosing Weight: 164 kg (07/06/22) Medications Medications (34) Active Scheduled: (19) amLODIPine 5 mg tablet 10 mg 2 tab(s), Oral, qHS aspirin 81 mg Chewable 81 mg 1 tab(s), Oral, BID atorvastatin 10 mg tablet 10 mg 1 tab(s), Oral, qHS cefTRIAXone 1 gram(s), IV Piggyback, qDay docusate sodium 100 mg Capsule 100 mg 1 cap(s), Oral, BID docusate-senna (Senokot S) 50 mg-8.6 mg Tablet 2 tab(s), Oral, BID famotidine 20 mg tablet 20 mg 1 tab(s), Oral, qDay ferrous sulfate 325 mg Tablet 325 mg 1 tab(s), Oral, qDay fluticasone-vilanterol 200-25 mcg powder 1 puff(s), Inhalation, qDay levothyroxine 137 mcg tablet 137 mcg 1 tab(s), Oral, qAM losartan 50 mg tablet 50 mg 1 tab(s), Oral, qDay magnesium hydroxide 8% Suspension 30 mL UD 30 mL, Oral, Daily meloxicam 7.5 mg tablet 7.5 mg 1 tab(s), Oral, BIDM metoprolol succinate 50 mg ER tablet 50 mg 1 tab(s), Oral, qDay mirtazapine 15 mg tablet 7.5 mg 0.5 tab(s), Oral, qHS montelukast 10 mg Tablet 10 mg 1 tab(s), Oral, qDay pantoprazole 20 mg EC tablet 40 mg 2 tab(s), Oral, qDay rOPINIRole 1 mg tablet 0.5 mg 0.5 tab(s), Oral, qHS Transderm-Scop patch REMOVAL 1 EA, Miscellaneous, q72h Continuous: (1) Lactated Ringers 1,000 mL 1,000 mL, Intravenous, 100 mL/hr PRN: (14) acetaminophen 325 mg Tablet 650 mg 2 tab(s), Oral, q4h albuterol 90 mcg/inh HFA Inhaler 180 mcg 2 puff(s), Inhalation, QIDRT diphenhydramine 25 mg tablet 25 mg 1 tab(s), Oral, q6h diphenhyDRAMINE 50 mg/mL (1 mL) INJ 25 mg 0.5 mL, IV Push, q6h ketorolac 30 mg/mL (1 mL) vial 15 mg 0.5 mL, IV Push, q6h meperidine 25 mg/mL 1 mL 25 mg 1 mL, IV Bolus, q3h morphine 2 mg/mL 1 mL syringe 2 mg 1 mL, IV Push, q5min ondansetron 2 mg/ 1 mL 2 mL INJ 4 mg 2 mL, IV Push, q8h ondansetron 2 mg/ 1 mL 2 mL INJ 4 mg 2 mL, IV Push, AsDirected oxycodone 5 mg tablet (immediate release) 5 mg 1 tab(s), Oral, q4h oxycodone 5 mg tablet (immediate release) 10 mg 2 tab(s), Oral, q4h prochlorperazine 10 mg/2 mL vial 5 mg 1 mL, IV Push, q6h rOPINIRole 1 mg tablet 0.5 mg 0.5 tab(s), Oral, qHS sodium biphosphate-sodium phosphate 19 gm-7 gm Enema 133 mL, Rectal, qDay Lab Results 07/08 05:40 WBC: 14.9 H Hgb: 11.7 L Hct: 35.9 L Platelet: 238 Neutrophil %: 79.1 Glucose Level: 101 Sodium Level: 143 Potassium Level: 4.1 BUN: 21 H Creatinine Lvl (s): 0.90 07/08 00:43 WBC: 17.9 H Hgb: 12.3 Hct: 37.6 Platelet: 246 Neutrophil %: 83.2 H Glucose Level: 124 H Sodium Level: 136 Potassium Level: 4.4 BUN: 23 H Creatinine Lvl (s): 1.03 H 07/07 05:17 WBC: 18.7 H Hgb: 11.8 L Hct: 36.1 L Platelet: 242 Neutrophil %: 91.6 H Glucose Level: 151 H Sodium Level: 140 Potassium Level: 4.9 BUN: 18 Creatinine Lvl (s): 0.92 Imaging Results and Diagnostics X-rays were reviewed of the right shoulder from yesterday which revealed a stable reverse total shoulder arthroplasty with no evidence of acute finding for fracture or dislocation. Implant appears stable. X-rays were discussed and reviewed with Mikey Oropeza. EKG No qualifying data available. Assessment/Plan 1. Osteoarthritis 1. Status post right reverse total shoulder arthroplasty postop day #2 2. Continue pain medications: Tylenol, meloxicam, oxycodone. Do not take any other nonsteroidal anti-inflammatories while on meloxicam/Mobic. I also discussed in detail patient is not to take the K[place]man 7.5/325 mg while at home for the first 6 weeks as we are controlling her pain medications. I discussed the potential side effects of combining to narcotics. She voiced understanding agreement. 3. DVT prophylaxis: Take 81 mg aspirin twice daily with food for 2 weeks postoperatively for DVT prophylaxis. 4. Physical therapy: Continue with UltraSling at all times. Okay to take off sling for elbow range of motion and pendulum exercises 2-3 times daily. No range of motion of the operative shoulder. Will begin outpatient physical therapy after the 2-week follow-up at [facility]. 5. H & H: 11.7/35.9, asymptomatic. Postoperative anemia secondary to acute blood loss from surgery without intraoperative complications. 6. Reactive leukocytosis: Currently 14.9, afebrile. Trending down. Patient did receive Decadron intraoperatively 7. Encouraged incentive spirometry 8. Continue postoperative medical management per medicine: Case was discussed in detail with medicine and at this time we will transfer service over to medicine. Patient is going to be managed for medical problems at this time with recent fall hitting her head, dizziness and underlying urinary tract infection. 9. Disposition: At this time patient is doing very well orthopedically with regards to the postoperative reverse total shoulder arthroplasty. However patient has continued with dizziness today and it was found that she has an underlying urinary tract infection. Medicine is currently involved in managing. Case was discussed with medicine and at this time we are transferring care over to the medicine team. Patient was planned for discharge yesterday but had stay an additional night due to dizziness and fall in which she hit her head. Patient had x-ray of the right shoulder which showed stable reverse total shoulder arthroplasty with no evidence of acute finding for fracture or dislocation. Her pain has been very well controlled with regards to the right shoulder. I did contact the pharmacy to cancel prescriptions however the family member has already picked up those prescriptions. Physical therapy is recommending additional stay for further therapy and case management is currently on board for appropriate discharge planning. At this time please contact orthopedics if there are any orthopedic questions or concerns. Otherwise we will see her back at her normal 2-week postoperative follow-up. She has outpatient physical therapy established. I have reviewed the [place] Automated Rx Reporting System (OARRS) report for this patient for refill pattern and other prescriber involvement as part of the appropriate surveillance for the provision of acute and chronic controlled medications. The report was requested and reviewed on the date of this entry, and was considered in the prescribing process This dictation was created using voice recognition software. Phonetic and/or grammatical errors may exist. 2. HTN (hypertension) 3. Type 2 diabetes mellitus 4. Asthma 5. Fall 6. Dizzy Digitally Signed by TANNER HAHN PA-C on 07/08/2022 02:19 PM [facility] 07-08-2022 Note ORIGINAL EXAMINATION: ONE XRAY VIEW OF THE CHEST 07/08/2022 12:18 am COMPARISON: None. HISTORY: ORDERING SYSTEM PROVIDED HISTORY: Reason for Exam: hypoxia FINDINGS: Arthroplasty hardware is noted within the shoulders bilaterally. Electronic device overlies the left chest wall. Lungs are clear bilaterally. Cardiomediastinal silhouette is at the upper limits of normal in size. Atherosclerotic calcification of the aorta. No pneumothorax or large effusion. IMPRESSION: No acute findings. Interpreted by: Cathy De La O MD Preliminary Report By: Cathy De La O MD Electronically signed By Cathy De La O MD Dictated Date: 07/08/2022 12:35:45 AM Prelim Date: 07/08/2022 12:36:07 AM Sign Date: 07/08/2022 12:36:07 AM Ordering Provider: [facility] 07-08-2022 Note ORIGINAL EXAMINATION: ONE XRAY VIEW OF THE CHEST 07/08/2022 12:18 am COMPARISON: None. HISTORY: ORDERING SYSTEM PROVIDED HISTORY: Reason for Exam: hypoxia FINDINGS: Arthroplasty hardware is noted within the shoulders bilaterally. Electronic device overlies the left chest wall. Lungs are clear bilaterally. Cardiomediastinal silhouette is at the upper limits of normal in size. Atherosclerotic calcification of the aorta. No pneumothorax or large effusion. IMPRESSION: No acute findings. Interpreted by: Cathy De La O MD Preliminary Report By: Cathy De La O MD Electronically signed By Cathy De La O MD Dictated Date: 07/08/2022 12:35:45 AM Prelim Date: 07/08/2022 12:36:07 AM Sign Date: 07/08/2022 12:36:07 AM Ordering Provider: [facility] 07-07-2022 Nurse Progress note Patient checked on and found difficult to arouse. Did not respond to loud voice and shaking. Sternal rub performed with wincing noted. Bri Quintana RN notified and Low Vasquez CNP notified also. Stronger sternal rub performed per Low Vasquez CNP and pt woke and was speaking and responding to questions appropriately. V/S done, O2 applied and mold making plastics sheets supervisor also applied. Digitally Signed by GORDON Evans on 07/07/2022 06:18 PM [facility] 07-07-2022 Note ORIGINAL EXAMINATION: TWO XRAY VIEWS OF THE RIGHT WPATEAHF48/28/2022 2:30 pm COMPARISON: July 06, 2022 radiograph HISTORY: ORDERING SYSTEM PROVIDED HISTORY: Reason for Exam: Fall s/p Shoulder arthroplasty FINDINGS: Reverse right shoulder arthroplasty is in place in near anatomic alignment. No evidence of periprosthetic fracture. No evidence of hardware loosening. The AC joint and CC joints are not widened. Mild AC joint spurring. Partial visualization of spinal stimulator wires. IMPRESSION: Right shoulder arthroplasty in near anatomic alignment. No evidence of loosening or fracture. Interpreted by: Brandy Vega DO Preliminary Report By: Brandy Vega DO Electronically signed By Brandy Vega DO Dictated Date: 07/07/2022 2:48:28 PM Prelim Date: 07/07/2022 2:50:22 PM Sign Date: 07/07/2022 2:50:22 PM Ordering Provider: SHANE VASQUEZ [facility] 07-07-2022 Nurse Progress note At approximately 1340, visitors from room 239 came to nurse's station to report this patient had fallen. Upon entering the room she was lying on floor near heater in room on her left side. Visitor from other room was with patient placing a blanket roll under patient's head. Patient denied pain. Stated she was getting up to put something away in her bag when she slipped on something on the floor. No wet areas noted. No debris noted. No slippery areas noted.Patient was wearing non slip Patient was assisted to sit then to stand per two assist. Denied and pain at this time. C/o vertigo. Small, soft, raised area noted on posterior head. She stated that was not normal for her. Providers were notified. Daughter was notified by patient. Digitally Signed by GORDON Evans on 07/07/2022 02:49 PM [facility] 07-07-2022 Note ORIGINAL HISTORY: Fall, confusion, dizzy COMPARISON: No TECHNIQUE: Routine non-contrast head CT with sagittal and coronal reconstructions This exam was performed according to our departmental dose optimization program, and includes the following measures where applicable: automated exposure control, adjustment of the mAs and/or kVp according to patient size and/or exam, and an iterative reconstruction algorithm. FINDINGS: The ventricles and sulci are mildly enlarged. There are no abnormal intra or extra-axial fluid collections. There is mild irregular decreased attenuation in the cerebral white matter. Gonzalez-white matter differentiation is maintained. The calvaria and the bones of the base of the skull are intact. IMPRESSION: Mild volume loss and small vessel ischemic disease. Interpreted by: Verónica Holder MD Preliminary Report By: Verónica Holder MD Electronically signed By Verónica Holder MD Dictated Date: 07/07/2022 2:23:09 PM Prelim Date: 07/07/2022 2:27:06 PM Sign Date: 07/07/2022 2:27:06 PM Ordering Provider: [facility] 07-07-2022 Note ORIGINAL EXAMINATION: TWO XRAY VIEWS OF THE RIGHT [id number]/28/2022 2:30 pm COMPARISON: July 06, 2022 radiograph HISTORY: ORDERING SYSTEM PROVIDED HISTORY: Reason for Exam: Fall s/p Shoulder arthroplasty FINDINGS: Reverse right shoulder arthroplasty is in place in near anatomic alignment. No evidence of periprosthetic fracture. No evidence of hardware loosening. The AC joint and CC joints are not widened. Mild AC joint spurring. Partial visualization of spinal stimulator wires. IMPRESSION: Right shoulder arthroplasty in near anatomic alignment. No evidence of loosening or fracture. Interpreted by: Brandy Vega DO Preliminary Report By: Brandy Vega DO Electronically signed By Brandy Vega DO Dictated Date: 07/07/2022 2:48:28 PM Prelim Date: 07/07/2022 2:50:22 PM Sign Date: 07/07/2022 2:50:22 PM Ordering Provider: [facility] 07-07-2022 Note ORIGINAL HISTORY: Fall, confusion, dizzy COMPARISON: No TECHNIQUE: Routine non-contrast head CT with sagittal and coronal reconstructions This exam was performed according to our departmental dose optimization program, and includes the following measures where applicable: automated exposure control, adjustment of the mAs and/or kVp according to patient size and/or exam, and an iterative reconstruction algorithm. FINDINGS: The ventricles and sulci are mildly enlarged. There are no abnormal intra or extra-axial fluid collections. There is mild irregular decreased attenuation in the cerebral white matter. Gonzalez-white matter differentiation is maintained. The calvaria and the bones of the base of the skull are intact. IMPRESSION: Mild volume loss and small vessel ischemic disease. Interpreted by: Verónica Holder MD Preliminary Report By: Verónica Holder MD Electronically signed By Verónica Holder MD Dictated Date: 07/07/2022 2:23:09 PM Prelim Date: 07/07/2022 2:27:06 PM Sign Date: 07/07/2022 2:27:06 PM Ordering Provider: [facility] 07-07-2022 Note Date of Service July 07, 2022 Subjective The patient was sitting in bedside chair upon examination. Patient denies any chest pain, shortness of breath, dizziness, lightheadedness, nausea or vomiting, or calf pain. No adverse overnight events. Pain has been controlled on medications. Patient overall is doing very well this morning. Her pain is very well controlled. Denies any numbness and tingling. Patient is right-hand dominant. She does live home alone. She has a nurse that comes out once a week to help her with medications. She is also followed by pain management for back problems. Objective Vitals and Measurements T: 37.0 C (Oral) TMIN: 36.01 C TMAX: 37.1 C (Oral) HR: 73(Monitored) RR: 18 BP: 137/55 SpO2: 96% HT: 162.6 cm WT: 164 kg BMI: 62.03 Intake and Output 7AM Yesterday to 7AM Today Intake and Output (Last 24 hours) Intake Administration Information 300.00 Output Intra-Op EBL 75.00 Total Summary Total Intake 300.00 Total Output 75.00 Fluid Balance 225.00 Physical Exam Vital signs stable, afebrile SCDs and ADRY hose are in place bilaterally Dressing is clean dry and intact UltraSling fitting appropriately Sensation is intact to axillary, radial, median, and ulnar distribution Motor intact with patient able to make okay sign, cross fingers, and thumbs up Weight Dosing Weight: 164 kg (07/06/22) Dosing Weight: 164 kg (07/06/22) Medications Medications (39) Active Scheduled: (24) acetaminophen 500 mg Tablet 1,000 mg 2 tab(s), Oral, q6hr albuterol - ipratropium 2.5 mg-0.5 mg/3 mL Inhal Ashley UD 3 mL, Inhalation, QIDRT amLODIPine 5 mg tablet 10 mg 2 tab(s), Oral, qHS aspirin 81 mg Chewable 81 mg 1 tab(s), Oral, BID atorvastatin 10 mg tablet 10 mg 1 tab(s), Oral, qHS baclofen 10 mg tablet 20 mg 2 tab(s), Oral, TID bisacodyl 5 mg EC tablet 10 mg 2 tab(s), Oral, Once budesonide 0.5 mg/2 mL Susp UD 0.5 mg 2 mL, Inhalation, BIDRT docusate sodium 100 mg Capsule 100 mg 1 cap(s), Oral, BID docusate-senna (Senokot S) 50 mg-8.6 mg Tablet 2 tab(s), Oral, BID famotidine 20 mg tablet 20 mg 1 tab(s), Oral, qDay ferrous sulfate 325 mg Tablet 325 mg 1 tab(s), Oral, qDay gabapentin 300 mg Capsule 300 mg 1 cap(s), Oral, TID levothyroxine 137 mcg tablet 137 mcg 1 tab(s), Oral, qAM losartan 50 mg tablet 50 mg 1 tab(s), Oral, qDay magnesium hydroxide 8% Suspension 30 mL UD 30 mL, Oral, Daily meloxicam 7.5 mg tablet 7.5 mg 1 tab(s), Oral, BIDM metoprolol succinate 50 mg ER tablet 50 mg 1 tab(s), Oral, qDay mirtazapine 15 mg tablet 7.5 mg 0.5 tab(s), Oral, qHS montelukast 10 mg Tablet 10 mg 1 tab(s), Oral, qDay pantoprazole 20 mg EC tablet 40 mg 2 tab(s), Oral, qDay rOPINIRole 1 mg tablet 0.5 mg 0.5 tab(s), Oral, qHS scopolamine 1.5 mg (1 mg / 72 hours patch) 1 patch(es), Transdermal, q72h Transderm-Scop patch REMOVAL 1 EA, Miscellaneous, q72h Continuous: (1) Lactated Ringers 1,000 mL 1,000 mL, Intravenous, 100 mL/hr PRN: (14) acetaminophen 325 mg Tablet 650 mg 2 tab(s), Oral, q4h diphenhydramine 25 mg tablet 25 mg 1 tab(s), Oral, q6h diphenhyDRAMINE 50 mg/mL (1 mL) INJ 25 mg 0.5 mL, IV Push, q6h ketorolac 30 mg/mL (1 mL) vial 15 mg 0.5 mL, IV Push, q6h meperidine 25 mg/mL 1 mL 25 mg 1 mL, IV Bolus, q3h morphine 2 mg/mL 1 mL syringe 2 mg 1 mL, IV Push, q5min ondansetron 2 mg/ 1 mL 2 mL INJ 4 mg 2 mL, IV Push, q8h ondansetron 2 mg/ 1 mL 2 mL INJ 4 mg 2 mL, IV Push, AsDirected oxycodone 5 mg tablet (immediate release) 5 mg 1 tab(s), Oral, q4h oxycodone 5 mg tablet (immediate release) 10 mg 2 tab(s), Oral, q4h prochlorperazine 10 mg/2 mL vial 5 mg 1 mL, IV Push, q6h rOPINIRole 1 mg tablet 0.5 mg 0.5 tab(s), Oral, qHS scopolamine 1.5 mg (1 mg / 72 hours patch) 1 patch(es), Transdermal, q72h sodium biphosphate-sodium phosphate 19 gm-7 gm Enema 133 mL, Rectal, qDay Lab Results 07/07 05:17 WBC: 18.7 H Hgb: 11.8 L Hct: 36.1 L Platelet: 242 Neutrophil %: 91.6 H Glucose Level: 151 H Sodium Level: 140 Potassium Level: 4.9 BUN: 18 Creatinine Lvl (s): 0.92 EKG No qualifying data available. Assessment/Plan 1. Osteoarthritis 1. Status post right reverse total shoulder arthroplasty postop day #1 2. Continue pain medications: Tylenol, meloxicam, oxycodone. Do not take any other nonsteroidal anti-inflammatories while on meloxicam/Mobic. I also discussed in detail patient is not to take the Kinsman 7.5/325 mg while at home for the first 6 weeks as we are controlling her pain medications. I discussed the potential side effects of combining to narcotics. She voiced understanding agreement. 3. DVT prophylaxis: Take 81 mg aspirin twice daily with food for 2 weeks postoperatively for DVT prophylaxis. 4. Physical therapy: Continue with UltraSling at all times. Okay to take off sling for elbow range of motion and pendulum exercises 2-3 times daily. No range of motion of the operative shoulder. Will begin outpatient physical therapy after the 2-week follow-up at [facility]. 5. H & H: 11.8/36.1, asymptomatic. Postoperative anemia secondary to acute blood loss from surgery without intraoperative complications. 6. Reactive leukocytosis: Currently 18.7, afebrile. Patient did receive Decadron intraoperatively 7. Encouraged incentive spirometry 8. Continue postoperative medical management per medicine 9. Disposition: Plan will be for probable discharge home today. Case management currently involved with appropriate discharge planning. Possible home health. Patient does have a nurse that comes out once a week to help assist her with medications. She lives home alone and is right-hand dominant. Case management involved to assess further needs. We would also like assessment from physical therapy. She would like her prescriptions E scribed to [facility]. I again discussed with the patient in great detail postoperative course of treatment as well as the narcotics. She will not take the Kinsman while we are managing her postoperative pain control. After 6 weeks she will go back with her primary pain management physician. Patient has outpatient physical therapy established. She will follow-up per postop instructions. She will contact her office upon discharge with any concerns or questions. I have reviewed the [place] Automated Rx Reporting System (OARRS) report for this patient for refill pattern and other prescriber involvement as part of the appropriate surveillance for the provision of acute and chronic controlled medications. The report was requested and reviewed on the date of this entry, and was considered in the prescribing process This dictation was created using voice recognition software. Phonetic and/or grammatical errors may exist. 2. HTN (hypertension) 3. Type 2 diabetes mellitus 4. Asthma Digitally Signed by TANNER HAHN PA-C on 07/07/2022 08:32 AM [facility] 07-06-2022 Note ORIGINAL HISTORY: Postop COMPARISON: No FINDINGS: There is an arthroplasty in near anatomic alignment. There is no radiographic evidence of loosening or failure of hardware. There is gas in the joint space and in the soft tissues. IMPRESSION: Right shoulder arthroplasty with immediate postoperative changes. Interpreted by: Verónica Holder MD Preliminary Report By: Verónica Holder MD Electronically signed By Verónica Holder MD Dictated Date: 07/06/2022 2:00:38 PM Prelim Date: 07/06/2022 2:01:20 PM Sign Date: 07/06/2022 2:01:20 PM Ordering Provider: MIKEY OROPEZA [facility] 07-06-2022 Note ORIGINAL HISTORY: Postop COMPARISON: No FINDINGS: There is an arthroplasty in near anatomic alignment. There is no radiographic evidence of loosening or failure of hardware. There is gas in the joint space and in the soft tissues. IMPRESSION: Right shoulder arthroplasty with immediate postoperative changes. Interpreted by: Verónica Holder MD Preliminary Report By: Verónica Holder MD Electronically signed By Verónica Holder MD Dictated Date: 07/06/2022 2:00:38 PM Prelim Date: 07/06/2022 2:01:20 PM Sign Date: 07/06/2022 2:01:20 PM Ordering Provider: MIKEY JOHNNA [facility] 07-06-2022 Anesthesiology Consult note Patient: JERRELL STRICKLAND Age: 76 years Sex: Female : 1945 Associated Diagnoses: None Author: OSCAR COWAN APRN-COMPLAINTS COORDINATOR Preoperative Information Anesthesia history Patient's history: nausea and vomiting with anesthesia. Family's history: negative. Health Status Allergies: Allergic Reactions (Selected) NKA, Allergies (1) ActiveReaction NKANone Documented Current medications: (Selected) Inpatient Medications Ordered Betadine 10% topical solution: 17.5 mL, mL/hr, Topical (INT), PREOP pharm Bolus LR 1000 mL: 1,000 mL, IV Bolus, PREOP pharm Decadron: 10 mg, 1 mL, IV Push, AsDirected Kefzol: 2 gram(s), 200 mL/hr, IV Piggyback, PREOP pharm LR 1000 mL: 125 mL/hr, Intravenous, Stop: 07/07/22 17:59:00 EST tranexamic acid 1 g / 100 mL 0.7% NaCl PMX: 1 gram(s), 100 mL, 300 mL/hr, IV Piggyback, AsDirected tranexamic acid 1 g / 100 mL 0.7% NaCl PMX: 1 gram(s), 100 mL, 300 mL/hr, IV Piggyback, AsDirected Documented Medications Documented Albuterol (Eqv-ProAir HFA) 90 mcg/inh inhalation aerosol: INHALE 2 puffs by mouth up to four times daily as needed for Shortness of breath or wheezing Breo Ellipta 200 mcg-25 mcg/inh inhalation powder: Inhale 1 puff by mouth daily with good oral care FeroSul 325 mg (65 mg elemental iron) oral tablet: TAKE 1 TABLET by mouth daily Vitamin C 1000 mg oral tablet: 1,000 mg, 1 tab(s), Oral, qDay, 30 tab(s), 0 Refill(s) Vitamin D3 25 mcg (1000 intl units) oral capsule: 25 mcg, 1 cap(s), Oral, Daily, 30 cap(s), 0 Refill(s) acetaminophen-hydrocodone 325 mg-7.5 mg oral tablet: TAKE 1 TABLET BY MOUTH TWICE DAILY FOR 28 DAYS amLODIPine 10 mg oral tablet: TAKE 1 TABLET BY MOUTH EVERY DAY AT BEDTIME baclofen 20 mg oral tablet: 20 mg, 1 tab(s), Oral, TID, 0 Refill(s) benzonatate 100 mg oral capsule: TAKE 1 CAPSULE THREE TIMES DAILY NEEDED cetirizine 10 mg oral tablet: 10 mg, 1 tab(s), Oral, BID, 30 tab(s), 0 Refill(s) famotidine 40 mg oral tablet: Take 1 tablet by mouth daily gabapentin 300 mg oral capsule: 300 mg, 1 cap(s), Oral, TID, 0 Refill(s) levothyroxine 137 mcg (0.137 mg) oral tablet: TAKE 1 TABLET BY MOUTH EVERY DAY metFORMIN 500 mg oral tablet (IR): 500 mg, 1 tab(s), Oral, BID, 180 tab(s), 0 Refill(s) metoprolol succinate 50 mg oral tablet, extended release: 50 mg, 1 tab(s), Oral, qDay, 0 Refill(s) mirtazapine 7.5 mg oral tablet: TAKE 1/2 (ONE-HALF) TO 1 (ONE) TABLET AT BEDTIME montelukast 10 mg oral tablet: 10 mg, 1 tab(s), Oral, qDay, 0 Refill(s) olmesartan 20 mg oral tablet: TAKE 1 TABLET BY MOUTH DAILY pantoprazole 40 mg oral enteric coated tablet: TAKE 1 TABLET BY MOUTH DAILY rOPINIRole 0.5 mg oral tablet: TAKE 1 TO 2 TABLETS AT BEDTIME rosuvastatin 5 mg oral tablet: TAKE 1 TABLET BY MOUTH AT BEDTIME vitamin E 1000 intl units oral capsule: 1,000 International_Unit, 1 cap(s), Oral, qDay, 0 Refill(s), Medications (7) Active Scheduled: (6) ceFAZolin 2 gram(s), IV Piggyback, PREOP pharm dexamethasone 10 mg/mL (1mL) SDV 10 mg 1 mL, IV Push, AsDirected Lactated Ringers Injection 1000 mL * Bolus * 1,000 mL, IV Bolus, PREOP pharm povidone iodine topical 17.5 mL, Topical (INT), PREOP pharm tranexamic acid PMX 1 gram(s) 100 mL, IV Piggyback, AsDirected tranexamic acid PMX 1 gram(s) 100 mL, IV Piggyback, AsDirected Continuous: (1) Lactated Ringers 1000 mL 1,000 mL, Intravenous, 125 mL/hr PRN: (0) Problem list: Medical Abdominal pain / SNOMED CT 82672158 / Confirmed Asthma / SNOMED CT 138412901 / Confirmed Diverticulosis / SNOMED CT 1858043737 / Confirmed Hiatal hernia / SNOMED CT 927749971 / Confirmed Hypertension / SNOMED CT 6225852977 / Confirmed Hypothyroidism / SNOMED CT 53866551 / Confirmed Fatty liver / SNOMED CT 167526117 / Confirmed Vagal bradycardia / SNOMED CT 85502946 / Confirmed, Active Problems (9) Abdominal pain Asthma Diverticulosis Fatty liver GERD (gastroesophageal reflux disease) Hiatal hernia Hypertension Hypothyroidism Vagal bradycardia Histories Past Medical History: No active or resolved past medical history items have been selected or recorded. Family History: CAD - Coronary artery disease Mother Father Procedure history: Carpal tunnel release (854356553). Repair of shoulder (734383324). Comments: 04/25/2017 7:53 EDGARDO ANGELA RN [place] arthroscopy LEFT History of tonsillectomy (6526169863). Abdominal hysterectomy (409596996). Appendectomy (273020141). Spinal cord stimulation (900410498). Total hip replacement (650244827). Comments: 06/22/2022 13:44 Suzette Lewis RN right Total shoulder replacement (55697329). Comments: 06/22/2022 13:45 Suzette Lewis RN left Social History Social & Psychosocial Habits Alcohol 04/20/2017Risk Assessment: Denies Alcohol Use 06/22/2022 Use: Never Substance Abuse 04/20/2017Risk Assessment: Denies Substance Abuse 06/22/2022 Use: Never Tobacco 06/22/2022 Tobacco Use: Never (less than 100 in l Home/Environment 06/22/2022 Domestic Concerns None Living situation: Home/Independent . Physical Examination Vital Signs 07/06/2022 9:30 EST Temperature Temporal Artery 36.3 DegC Peripheral Pulse Rate 84 bpm Respiratory Rate 18 br/min Systolic Blood Pressure Non-Invasive 152 mmHg HI Diastolic Blood Pressure Non-Invasive 68 mmHg Blood Pressure Method Automatic Blood Pressure Location Left arm Vital Signs(last 24 hrs) Last Charted Resp Rate 18 br/min (JUL 06:) SBPH 152mmHg (JUL 06:) DBP68 mmHg (JUL 06) Measurements from flowsheet : Measurements 07/06/2022 9:30 EST Height 162.6 cm Admission Weight 164 kg [place] Body Weight 54.74 kg Pain assessment: Pain Assessment 07/06/2022 9:46 EST Primary Pain Intensity Not Done: Not Appropriate at this Time (Not Done) 07/06/2022 9:30 EST Primary Pain Intensity 0 Pain Scale Type 0-10 Pain scale . General: Alert and oriented, Moderate distress. Airway: Normal temporomandibular joint mobility. Mallampati classification: II (soft palate, fauces, uvula visible). Dentition Evaluation: Dentures, lower, Dentures, upper. Respiratory: Lungs are clear to auscultation, Respirations are non-labored. Cardiovascular: Normal rate, Regular rhythm. Neurologic: Alert, Oriented. Review / Management Results review: No qualifying data available , Lab results 07/06/2022 10:03 EST SN - Preop - CTm Pt Ready for OR/Proced 07/06/2022 10:03 07/06/2022 9:46 EST Primary Pain Intensity Not Done: Not Appropriate at this Time (Not Done) oxyCODONE Not Done: Not Appropriate at this Time (Not Done) 07/06/2022 9:44 EST vancomycin 1,250 mg mg Sodium Chloride 0.9% 250 mL mL 07/06/2022 9:42 EST celecoxib 400 mg mg famotidine 20 mg mg 07/06/2022 9:30 EST Blood Glucose, Capillary 107 mg/dL Height 162.6 cm Admission Weight 164 kg [place] Body Weight 54.74 kg Temperature Temporal Artery 36.3 DegC Peripheral Pulse Rate 84 bpm Respiratory Rate 18 br/min Systolic Blood Pressure Non-Invasive 152 mmHg HI Diastolic Blood Pressure Non-Invasive 68 mmHg Blood Pressure Method Automatic Blood Pressure Location Left arm Primary Pain Intensity 0 Pain Scale Type 0-10 Pain scale Heart Rhythm Regular Respirations Unlabored Respiratory Pattern Regular All Lobes Breath Sounds Clear, Equal FiO2 98 % Oxygen Therapy Room air Oxygen Saturation 98 % Abdomen Description Non-distended, Soft Abdomen Palpation Non-Tender, Soft Bowel Continence Continent Bowel Sounds All Quadrants Present Urinary Elimination Voiding, no difficulties Skin Temperature Warm Skin Description [place], Normal for ethnicity, Dry Skin Integrity Intact Skin Moisture General Dry IV Present Present Wrist Left 07/06/2022 20 gauge Peripheral IV Activity: Assessed Peripheral IV Dressing Condition: Clean, Dry, Intact Peripheral IV Dressing Activity: Applied Peripheral IV Line Status/Patency: Flushes easily, Continuous infusion Peripheral IV Site Condition: No complications Peripheral IV Equipment: Extension set Peripheral IV Number of Attempts: 2 Neurological Symptoms Patient denies Level of Consciousness Alert DAVID Yes Strength All Extremities Strong Tone All Extremities Normal Sensation All Extremities Intact Left Upper Extremity Sensation Intact Right Upper Extremity Sensation Intact Left Lower Extremity Sensation Intact Right Lower Extremity Sensation Intact Affect/Behavior Appropriate, Calm, Cooperative Orientation Oriented x 4 Allergies Yes Talend Developer On Yes Consent Form Signed Yes Patient Dressed In Hospital gown, No undergarments Pre-op Preparation Glasses removed, Shave prep done by clippers, Undergarments removed CHG Preoperative Wash/Wipe Night before procedure, Day of procedure, Site specific wipe Preop Nasal Swab Povidone-Iodine CHG Skin Prep Completed for Eligible Surgery History & Physical Update On Chart Yes History & Physical On Chart Yes Obstructive Sleep Apnea Assess Completed Yes Orientation Assessment Oriented x 4 Belongings At Bedside Coat, Shoes, Shorts, Socks, Undergarments Activity Status ADL Ambulating in wagner, Ambulating in room, Awake Assistive Device None SCD On/Re-applied bilateral knee high Antiembolism Stocking On/Re-applied bilateral thigh high NPO Status Maintained Standard Safety ID band on, Call device within reach, Bed in low position, Wheels locked Demonstrates Correct Call Light Use Yes Allergy Band on and Verified Yes Blood Band on and Verified Yes Patient ID Band on and Verified Yes Implants Verified Yes Pacemaker/AICD Verified Yes Anesthesia Consent Signed Yes Blood Consent Signed Yes Last Fluid Intake 07/05/2022 18:00 Last Food Intake 07/05/2022 21:00 Last Void 07/06/2022 9:00 07/06/2022 9:29 EST citric acid-sodium citrate Not Done: Not Appropriate at this Time (Not Done) 07/06/2022 9:17 EST Infectious Disease Symptoms Patient states no symptoms Safety Brochure Information Reviewed Yes Natalia Maximiliano Video Viewed No Teaching Evaluation Returns demonstrations correctly Admission Note-Nursing Same Day Patient History (Modified) 07/06/2022 9:04 EST SN - Preop - CTm Pt in SDS Room 07/06/2022 9:04 . Assessment and Plan [employer] (ASA) physical status classification: Class III. Anesthetic Preoperative Plan Anesthetic technique: General. Maintenance airway: Oral endotracheal tube. Postoperative pain management: interscalene block. Risks discussed: nausea, vomiting, sore throat, hypotension, allergic reaction, serious complications. Informed consent: signed by patient. Digitally Signed by OSCAR COWAN on 07/06/2022 10:24 AM [facility] Evaluation + Plan note Future Appointments [facility] documented in this encounter [facility] note* Diagnosis Puncture wound of multiple sites of left upper extremity, initial encounter- Primary documented in this encounter [facility] note* Diagnosis FUO (fever of unknown origin)- Primary Fever, unspecified Viral syndrome Unspecified viral infection, in conditions classified elsewhere and of unspecified site [facility] N[facility]ative No data available for this section [facility] Hospital Discharge instructions No data available for this section [facility] Progress note No data available for this section [facility] Reason for referral (narrative)* Diagnostic Procedure Only (Urgent) - Closed Specialty Diagnoses / Procedures Referred By Contac t Referred To Contact XR IMAGING Diagnoses Pain Procedures XR FOOT GENERAL 3V AP/LAT/OBL LEFT RADEX FOOT COMPLETE MINIMUM 3 VIEWS J Luis Sanches APRN.SPINNER TENDER [address] [place] [address] Xr Imaging Referral ID Status Reason Start Date Expiration Date V isits Requested Visits Authorized [id number] Closed Auto-Generate d Referral 02/07/2023 03/08/2024 1 1 [facility] Summary Purpose Family History No Family History Records FoundNo Family History Records Found No data available for this section No data available for this section No Family History Records FoundNo Family History Records Found Advance Directives No Advanced Directives Records FoundDocuments on File Type Date Recorded Patient Community Health Planning Director Expl anation Advance Directive(s) 11/21/2015 11:24 AM Documents on File Type Date Recorded Patient Community Health Planning Director Expl anation Advance Directive(s) 11/21/2015 11:24 AM Additional Source Comments INFORMATION SOURCE (unrecogn ized section and content) DATE CREATED AUTHOR AUTHOR'S ORGANIZ ATION 12/25/2017 [facility] DATE CREATED AUTHOR AUTHOR'S ORGANIZ ATION 07/26/2023 [facility] ([place]) DATE CREATED AUTHOR AUTHOR'S ORGANIZ ATION 07/29/2023 [facility] Care Team (unrecognized sect ion and content) Care Team Personnel Name: CHERISE HAMMOND MD Member Role: Primary Care Physician Address: Address: [address] [place] [address] [place] [id number] Care Team Related Persons Name: REMYOctober Care Team Personnel Name: CHERISE HAMMOND MD Member Role: Primary Care Physician Address: Address: [address] [place] [address] [place] [phone] Care Team Related Persons Name: REMYOctober Source Comments (unrecognize d section and content) In the event this informatio n is protected by the Federal Confidentiality of Alcohol and Drug Abuse Patient Records regulations: The Federal rules restrict any use of the information to criminally investigate or prosecute any alcohol or drug abuse patient.[facility] the event this information is protected by the Federal Confidentiality of Alcohol and Drug Abuse Patient Records regulations: The Federal rules restrict any use of the information to criminally investigate or prosecute any alcohol or drug abuse patient.[facility] the event this information is protected by the Federal Confidentiality of Alcohol and Drug Abuse Patient Records regulations: The Federal rules restrict any use of the information to criminally investigate or prosecute any alcohol or drug abuse patient.[facility] the event this information is protected by the Federal Confidentiality of Alcohol and Drug Abuse Patient Records regulations: The Federal rules restrict any use of the information to criminally investigate or prosecute any alcohol or drug abuse patient.[facility] the event this information is protected by the Federal Confidentiality of Alcohol and Drug Abuse Patient Records regulations: The Federal rules restrict any use of the information to criminally investigate or prosecute any alcohol or drug abuse patient.[facility] the event this information is protected by the Federal Confidentiality of Alcohol and Drug Abuse Patient Records regulations: The Federal rules restrict any use of the information to criminally investigate or prosecute any alcohol or drug abuse patient.[facility] Reason for Visit (unrecogniz ed section and content) Reason Comments Pain (foot) Left x 1 day Reason Comments Animal Bite X 1 month ago, redne ss in area of bite Reason Comments Flu Like Symptoms X 5-6 days Care Teams (unrecognized sec tion and content) 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 Specialty Start Date End Date Dionne Magaña MD [address] [place] [address] PCP - General Internal Medicine 01/31/23 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 Specialty Start Date End Date Dionne Magaña MD [address] [place], [place] [address] [phone] PCP - General Internal Medicine 01/31/23 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 This clinical summary was aggregated from multiple sources. Caution should be exercised in using it in the provision of clinical care. This summary normalizes information from multiple sources, and as a consequence, information in this document may materially change the coding, format and clinical context of patient data. In addition, data may be omitted in some cases. CLINICAL DECISIONS SHOULD BE BASED ON THE PRIMARY CLINICAL RECORDS. [employer] [facility]. provides no warranty or guarantee of the accuracy or completeness of information in this document.
== END | disposition home or self-care (01) ==
LOC: LABSPEC 15:30
PROVIDERS: PCP Internal Medicine; Visit Provider Nurse Practitioner
DX: S81.801A Unspecified open wound, right lower leg, initial encounter (principal)
CPT/HCPCS: 87070; 87077; 87186; 87205

== ENCOUNTER → 2023-08-22 | Outpatient (CLI) | payer MEDICARE, SELFPAY ==
[2023-08-22 16:20] LABS: ALB/GLOB Ratio 1.1 RATIO (0.9-2.4); AST(SGOT) 23 U/L (15-37); Alanine Aminotransfer ALT/SGPT 32 U/L (13-56); Albumin, Serum 3.5 g/dL (3.2-5.0); Alkaline Phosphatase 103 U/L (45-117); Anion Gap 7 (5-15); BUN 19 mg/dL (7-18); Calcium,Total 9.7 mg/dL (8.5-10.1); Chloride 107 mmol/L (98-107); Creatinine, Serum 1.12 mg/dL (0.55-1.02); EST Glomerular Filtration Rate 50 mL/min (>60); Est Glom Filt Rate - Afr Amer 60 mL/min (>60); Globulin 3.3 g/dL (2.2-4.2); Glucose 140 mg/dL (74-106); Potassium 4.5 mmol/L (3.5-5.1); Protein, Total 6.8 g/dL (6.4-8.2); Sodium Level 141 mmol/L (136-145)
--- OUTSIDE RECORDS SUMMARY | 2023-08-22 19:05 | XMS RPT_ITS | CCD ---
Author Name Unknown Address [address] [place] [address] Organization [facility] Care Team Providers Care Bonderizer Name Role Phone [employer] Unavailable Unavailable ELKE MANJARREZ Unavailable Unavailable STEPHANY SAUCEDA, DR CHERISE Messina Primary Care Physician [phone] Dionne Magaña MD Primary Care Provider [phone] DIONNE MAGAÑA MD Primary Care Physician MATTHEW RUIZ DO Attending Unavailable DIONNE MAGAÑA MD Primary Care Unavailable DIONNE MAGAÑA MD Attending Unavailable DIONNE MAGAÑA MD Primary Care Unavailable DIONNE MAGAÑA Primary Care Unavailable JLUIS SANCHES Referring Unavailable DIONNE MAGAÑA Primary Care Unavailable DIONNE MAGAÑA Primary Care Unavailable DIONNE MAGAÑA Primary Care Unavailable ALISHA DIONNE Annel Primary Care Unavailable ALISHA DIONNE Annel Primary Care Unavailable DIONNE MAGAÑA Primary Care Unavailable Allergies Allergy Classification Reported Allergen(s) Allergy Type Date of Onset Reaction(s) Facility (9 sources) acetaminophen / codeine; Translations: [ACETAMINOPHEN-CO DEINE] Drug Allergy 6 Anaphylaxis [facility] Repository (9 sources) Seasonal allergy; Translations: [SEASONAL ALLERGIES] Propensity to adverse reactions (disorder) 6 Other: See Comments [facility] Repository Medications Current Medications Medication Drug Class(es) Dates Sig (Normalized) Sig (Original) acetaminophen 500 mg oral tablet (1 source) Start: 07-07-2022 End: 07-21-2022 take 1 tablet by mouth once daily acetaminophen 500 mg oral tablet Dose : 1,000 mg = 2 tab(s), Oral, TID, PRN as needed for pain, not to exceed 3000 mg/day, # 100 tab(s), 0 Refill(s), 07/21/22 8:33:00 EST, Pharmacy: [id number], 162.6, cm, 07/06/22 15:21:00 EST, Height [...] 13:34-0500 Blood Pressure Location MATTHEW RUIZ DO [facility] 06-20-2023 13:34-0500 Blood Pressure Method MATTHEW [place] O [facility] 06-20-2023 13:34-0500 Body temperature 98.06 [degF] MATTHEW FROMLADANT DO [facility] 06-20-2023 13:34-0500 Diastolic Blood Pressure Non-Invasive 61 mm[Hg] MATTHEW FROMMELT DO [facility] 06-20-2023 13:34-0500 Heart rate 95 /min MATTHEW FROMMELT DO [facility] 06-20-2023 13:34-0500 Respiratory rate 18 /min MATTHEW FROMLADANT DO [facility] 06-20-2023 13:34-0500 Systolic Blood Pressure Non-Invasive 137 mm[Hg] MATTHEW FROMMELT DO [facility] 06-13-2023 16:30-0500 Body temperature 99.3 [degF] Chito Moura DEMOLITION CRANE OPERATOR.SOCIAL SCIENCE ANALYST Work Phone: [facility] 06-13-2023 16:30-0500 Body weight 74.03 kg Chito Moura DEMOLITION CRANE OPERATOR.SOCIAL SCIENCE ANALYST Work Phone: [facility] 06-13-2023 16:30-0500 Diastolic blood pressure 67 mm[Hg] Chito Moura DEMOLITION CRANE OPERATOR.SOCIAL SCIENCE ANALYST Work Phone: [facility] 06-13-2023 16:30-0500 Heart rate 89 /min Chito Moura DEMOLITION CRANE OPERATOR.SOCIAL SCIENCE ANALYST Work Phone: [facility] 06-13-2023 16:30-0500 Respiratory rate 16 /min Chito Martell DEMOLITION CRANE OPERATOR.SOCIAL SCIENCE ANALYST Work Phone: [facility] 06-13-2023 16:30-0500 SaO2% (BldA) [Mass fraction] 96 % Chito Moura DEMOLITION CRANE OPERATOR.SOCIAL SCIENCE ANALYST Work Phone: [facility] 06-13-2023 16:30-0500 Systolic blood pressure 137 mm[Hg] Chito Martell DEMOLITION CRANE OPERATOR.SOCIAL SCIENCE ANALYST Work Phone: [facility] 02-15-2023 13:02-0400 Body temperature 98.01 [degF] Mali Jesus DEMOLITION CRANE OPERATOR.SOCIAL SCIENCE ANALYST Work Phone: [facility] 02-15-2023 13:02-0400 Body weight 74.57 kg Mali Jesus DEMOLITION CRANE OPERATOR.SOCIAL SCIENCE ANALYST Work Phone: [facility] 02-15-2023 13:02-0400 Diastolic blood pressure 64 mm[Hg] Mali Jesus DEMOLITION CRANE OPERATOR.SOCIAL SCIENCE ANALYST Work Phone: [facility] 02-15-2023 13:02-0400 Heart rate 87 /min Mali Jesus DEMOLITION CRANE OPERATOR.SOCIAL SCIENCE ANALYST Work Phone: [facility] 02-15-2023 13:02-0400 Respiratory rate 16 /min Mali Jesus DEMOLITION CRANE OPERATOR.SOCIAL SCIENCE ANALYST Work Phone: [facility] 02-15-2023 13:02-0400 SaO2% (BldA) [Mass fraction] 96 % Mali Jesus DEMOLITION CRANE OPERATOR.SOCIAL SCIENCE ANALYST Work Phone: [facility] 02-15-2023 13:02-0400 Systolic blood pressure 128 mm[Hg] Mali Jesus DEMOLITION CRANE OPERATOR.SOCIAL SCIENCE ANALYST Work Phone: [facility] 02-07-2023 15:47-0400 Body temperature 97.39 [degF] J Luis Sanches DEMOLITION CRANE OPERATOR.SOCIAL SCIENCE ANALYST Work Phone: [facility] 02-07-2023 15:47-0400 Body weight 72.21 kg J Luis Sanches DEMOLITION CRANE OPERATOR.SOCIAL SCIENCE ANALYST Work Phone: [facility] 02-07-2023 15:47-0400 Diastolic blood pressure 78 mm[Hg] J Luis Sanches DEMOLITION CRANE OPERATOR.SOCIAL SCIENCE ANALYST Work Phone: [facility] 02-07-2023 15:47-0400 Heart rate 89 /min J Luis Sanches DEMOLITION CRANE OPERATOR.SOCIAL SCIENCE ANALYST Work Phone: [facility] 02-07-2023 15:47-0400 Respiratory rate 18 /min J Luis Sanches APRN.SOCIAL SCIENCE ANALYST Work Phone: [facility] 02-07-2023 15:47-0400 SaO2% (BldA) [Mass fraction] 95 % J Luis Verónica ROBLERON.SOCIAL SCIENCE ANALYST Work Phone: [facility] 02-07-2023 15:47-0400 Systolic blood pressure 129 mm[Hg] J Luis Verónica RAMIREZ.SOCIAL SCIENCE ANALYST Work Phone: [facility] 07-09-2022 12:00-0500 Body temperature 98.24 [degF] DR MIKEY OROPEZA MD [facility] 07-09-2022 12:00-0500 Diastolic Blood Pressure Non-Invasive [address] MIKEY OROPEZA MD [facility] 07-09-2022 12:00-0500 Heart rate 67 /min DR MIKEY OROPEZA MD [facility] 07-09-2022 12:00-0500 Systolic Blood Pressure Non-Invasive [address] MIKEY OROPEZA MD [facility] 07-09-2022 09:43-0500 Heart rate 68 /min DR MIKEY OROPEZA MD [facility] 07-09-2022 09:43-0500 Respiratory rate 16 /min DR MIKEY OROPEZA MD [facility] 07-09-2022 09:08-0500 Heart rate 70 /min DR MIKEY OROPEZA MD [facility] 07-09-2022 03:30-0500 Body temperature 98.42 [degF] DR MIKEY OROPEZA MD [facility] 07-09-2022 03:30-0500 Diastolic Blood Pressure Non-Invasive [address] MIKEY OROPEZA MD [facility] 07-09-2022 03:30-0500 Heart rate 70 /min DR MIKEY OROPEZA MD [facility] 07-09-2022 03:30-0500 Reason For Taking VItal Signs DR MIKEY OROPEZA MD [facility] 07-09-2022 03:30-0500 Respiratory rate 18 /min DR MIKEY OROPEZA MD [facility] 07-09-2022 03:30-0500 Systolic Blood Pressure Non-Invasive [address] MIKEY OROPEZA MD [facility] 07-09-2022 00:09-0500 Body temperature 98.6 [degF] DR MIKEY OROPEZA MD [facility] 07-09-2022 00:09-0500 Diastolic Blood Pressure Non-Invasive [address] MIKEY OROPEZA MD [facility] 07-09-2022 00:09-0500 Heart rate 66 /min DR MIKEY OROPEZA MD [facility] 07-09-2022 00:09-0500 Reason For Taking VItal Signs DR MIKEY OROPEZA MD [facility] 07-09-2022 00:09-0500 Systolic Blood Pressure Non-Invasive [address] MIKEY OROPEZA MD [facility] 07-08-2022 19:49-0500 Heart rate 62 /min DR MIKEY OROPEZA MD [facility] 07-08-2022 17:16-0500 Heart rate 63 /min DR MIKEY OROPEZA MD [facility] 07-08-2022 09:25-0500 Heart rate 68 /min DR MIKEY OROPEZA MD [facility] 07-08-2022 02:13-0500 SaO2% (BldA) [Mass fraction] 62 % DR MIKEY OROPEZA MD [facility] 07-06-2022 15:21-0500 Body height 162.[address] MIKEY OROPEZA MD [facility] 07-06-2022 15:21-0500 Body weight [address] MIKEY OROPEZA MD [facility] 07-06-2022 15:21-0500 Body weight 62.03 kg/m2 DR MIKEY OROPEZA MD [facility] 07-06-2022 13:20-0500 Body temperature 97.52 [degF] DR MIKEY OROPEZA MD [facility] 07-06-2022 13:15-0500 Respiratory Rate - Anes 10 br/min DR MIKEY OROPEZA MD [facility] 07-06-2022 13:10-0500 Body temperature 97.45 [degF] DR MIKEY OROPEZA MD [facility] 07-06-2022 13:10-0500 Respiratory Rate - Anes 4 br/min DR MIKEY OROPEZA MD [facility] 07-06-2022 13:05-0500 Body temperature 97.54 [degF] DR MIKEY OROPEZA MD [facility] 07-06-2022 13:05-0500 Respiratory Rate - Anes 11 br/min DR MIKEY OROPEZA MD [facility] 07-06-2022 13:00-0500 Body temperature 97.47 [degF] DR MIKEY OROPEZA MD [facility] 07-06-2022 10:48-0500 Heart rate 80 /min DR MIKEY OROPEZA MD [facility] 07-06-2022 09:30-[address] MIKEY OROPEZA MD [facility] 07-06-2022 09:30-[address] MIKEY [place] [facility] 07-06-2022 09:30-0500 Body height 162.[address] MIKEY OROPEZA MD [facility] 07-06-2022 09:30-0500 Body temperature 97.34 [degF] DR MIKEY OROPEZA MD [facility] 07-06-2022 09:30-0500 Body weight [address] MIKEY OROPEZA MD [facility] 06-22-2022 13:53-[address] Cuff Size DR MIKEY OROPEZA MD [facility] 06-22-2022 13:53-[address] MIKEY OROPEZA MD [facility] 06-22-2022 13:53-[address] MIKEY [place] [facility] 06-22-2022 13:53-0500 Body height 162.[address] MIKEY OROPEZA MD [facility] 06-22-2022 13:53-0500 Body weight 74.[address] MIKEY OROPEZA MD [facility] 06-22-2022 13:53-0500 Body weight 28.18 kg/m2 DR MIKEY OROPEZA MD [facility] 06-22-2022 13:53-0500 Diastolic Blood Pressure Non-Invasive [address] MIKEY OROPEZA MD [facility] 06-22-2022 13:53-0500 Heart rate 86 /min DR MIKEY OROPEZA MD [facility] 06-22-2022 13:53-0500 Systolic Blood Pressure Non-Invasive [address] MIKEY OROPEZA MD [facility] Encounters Encounter Date Encounter Type Care Provider Facility Start: 07-27-2023 End: 07-27-2023 ambulatory DIONNE MAGAÑA Facility:[facility] Start: 07-21-2023 End: 07-22-2023 ambulatory DIONNE MAGAÑA MD Facility:B Start: 07-21-2023 End: 07-21-2023 Patient encounter procedure [facility] Start: 07-15-2023 End: 07-15-2023 ambulatory DIONNE MAGAÑA Facility:[facility] Start: 06-20-2023 End: 06-20-2023 [facility] Start: 06-20-2023 End: 06-20-2023 Emergency department patient visit [facility] Start: 06-15-2023 Telephone encounter Giovana Escalera APRN.CNP Work Phone: [facility] Procedures Date Procedure Procedure Detail Performing Clinician Start: 06-13-2023 Urnls dip stick/tabl et rgnt auto w/o microscopy Chito Moura APRN.SOCIAL SCIENCE ANALYST Work Phone: Start: 06-13-2023 STREP A MOLECULAR [...] Detail Author Start: 05-13-2031 Urine microalbumin profile [facility] Start: 02-16-2024 BP CONTROLLED (<130/80) BP CONTROLLED (<130/80) [facility] Start: 02-08-2024 BP CONTROLLED (<130/80) BP CONTROLLED (<130/80) [facility] Start: 03-11-2023 Influenza vaccination INFLUENZA (#1) [facility] Start: 07-11-2022 ADVANCE DIRECTIVE DISCUSSION ADVANCE DIRECTIVE DISCUSSION [facility] Start: 07-11-2022 DEPRESSION ASSESSMENT DEPRESSION ASSESSMENT [facility] Start: 02-04-2022 COVID-19 VACCINE (6 - Pfizer series) COVID-19 VACCINE (6 - Pfizer series) [facility] Start: 12-31-2021 Pneumococcal Vaccine: 65+ (2 - PCV) Pneumococcal Vaccine: 65+ (2 - PCV) [facility] Start: 12-31-2021 PNEUMOCOCCAL: 65+ (2 - PCV) PNEUMOCOCCAL: 65+ (2 - PCV) [facility] Start: 01-01-2021 Diabetes Screening Diabetes Screening [facility] Start: 12-30-2020 DIABETES SCREEN DIABETES SCREEN [facility] Start: 12-30-2020 Diabetes Screening Diabetes Screening [facility] Start: 2008 BONE DENSITY BONE DENSITY [facility] Start: 2008 Bone Density Screening Bone Density Screening [facility] Start: 01-04-1962 ANNUAL PCP TEAM CHRONIC DISEASE VISIT ANNUAL PCP TEAM CHRONIC DISEASE VISIT [facility] Start: 1961 BP CONTROLLED (<130/80) BP CONTROLLED (<130/80) [facility] Start: 1961 SPIROMETRY SPIROMETRY [facility] ALERE STREP A TEST (AG) ALERE ST REP A TEST (AG) Lab Routine FUO (fever of unknown origin) Ordered: 06/13/2023 [facility] Work Phone: Immunizations Immunization Date Immunization Notes Care Provider Fa cili 05-21-2022 influenza virus vacc ine, unspecified formulation DR MIKEY OROPEZA MD [facility] 05-21-2022 influenza, injectabl e, quadrivalent, contains preservative Anne Hugo BAIRES Work Phone: [facility] 12-10-2021 SARS-CoV-2 mRNA (tozinameran) vaccine DR MIKEY OROPEZA MD [facility] 11-10-[address] MIKEY OROPEZA MD [facility] 07-24-2021 SARS-CoV-2 mRNA (tozinameran) vaccine DR MIKEY OROPEZA MD [facility] 05-13-2021 tetanus toxoid, redu stef diphtheria toxoid, and acellular pertussis vaccine, adsorbed DR MIKEY OROPEZA MD [facility] 02-25-2021 influenza virus vacc ine, unspecified formulation DR MIKEY OROPEZA MD [facility] 02-25-2021 influenza, injectabl e, quadrivalent, contains preservative Anne Arias PA-C Work Phone: [facility] 12-31-2020 pneumococcal polysaccharide vaccine, [address] MIKEY OROPEZA MD [facility] 11-07-2020 SARS-CoV-2 mRNA (tozinameran) vaccine DR MIKEY OROPEZA MD [facility] Payers Date Payer Category Payer Medicare [employer] [place] [id number] 2015-Present [phone] [address] [place] [address] HMO [id number] 2015 Medicare [id number] 1945 Unknown [id number] 1945 Unknown [id number] Unknown [id number] Social History Date Type Detail Facility Start: 10-13-2015 End: 06-22-2022 Tobacco smoking status Never smoked tobacco (finding) [facility] Sex Assigned At Sex [facility] Start: 10-13-2015 Tobacco use and exposure Smokeless tobacco non-user [facility] Start: 01-31-2023 End: 06-13-2023 Alcohol intake Current non-drinker of alcohol (finding) [facility] Start: 01-31-2023 End: 06-13-2023 History of Social function [facility] Start: 01-31-2023 End: 06-13-2023 Tobacco use panel [facility] Start: 1945 Sex Assigned At Not on file C [facility] Functional Status Date Assessment Result Facility 06-20-2023 Functional Status ID band on, Call device within reach, Bed in low position, Wheels locked, Upper/Half-Length side-rails up, Visitor at bedside, Safety level maintained [facility] 07-09-2022 Functional Status Room check performed [facility] 07-09-2022 Functional Status [facility] 07-09-2022 [facility] [facility] Functional Status Activity Statu s ADL Repositions self, Sleeping [facility] 07-08-2022 [facility] Functional Status Min [facility] 07-08-2022 Functional Status [facility] 07-08-2022 Functional Status Linen Change Done [facility] 07-07-2022 Functional Status SCD Removed/Of f bilateral knee [facility] 07-07-2022 Functional Status None [facility] 07-07-2022 Functional Status Lunch Percent [address] [facility] 07-07-2022 Functional Status [facility] 07-07-2022 Functional Status Single level home [facility] 07-07-2022 Functional Status SCD On/Re-appl ied bilateral knee [facility] 07-07-2022 Functional Status [facility] Functional Status [facility] 07-06-2022 Functional Status [facility] 07-06-2022 Functional Status Dinner Percent [address] [facility] 07-06-2022 Functional Status [facility] 07-06-2022 Functional Status ice chips and sips take n [facility] 07-06-2022 Functional Status [facility] 07-06-2022 Functional Status [facility] 06-22-2022 Functional Status Sensory Deficits None A [facility] Mental Status Date Assessment Result Facility 06-20-2023 Mental Status Oriented x 4 [facility] 07-09-2022 Mental Status Orientation Oriented x 4 [facility] 07-09-2022 Mental Status [facility] 07-09-2022 Mental Status [facility] 07-08-2022 Mental Status Identifies self, Not oriented to place [facility] 07-07-2022 Mental Status [facility] Clinical Notes 07-06-2022 to 07-27-2023 Telephone Encounter - Sarah Bradford NETWORK ENGINEER ADMINISTRATOR - 06/16/2023 8:08 PM ESTTelephone Encounter - GemiinMindy serranodimitry LEYVA - 06/15/2023 2:00 PM ESTTelephone Encounter - Doreen Dobson - 06/15/2023 7:58 AM EST Note Date & Type Note Facility 07-27-2023 Note HNO ID: [id number] Author: J LUIS SANCHES APRN.SOCIAL SCIENCE ANALYST Service: ? Author Type: Nurse Practitioner Type: Progress Notes Filed: 07/27/2023 15:34 Note Text: Subjective Came in with complaints of sore right outer calf. Patient says there is some redness around it. Patient's not sure how long she has had it. Patient denies any numbness tingling loss of feeling fever chills or nausea. The history is provided by the patient. No language path was used. Review of Systems Constitutional: Negative. [...] Date APPENDECTOMY HYSTERECTOMY HX partial- done in [facility] LAMINECTOMY W/O FFD 07/12 VERT SEG LUMBAR [...] with this care plan J Luis Sanches APRN.[facility] 07-15-2023 Note HNO ID: [id number] Author: FRANCOISE VALENTINO PA Service: ? Author Type: Physician Nailing Machine Operator Type: Progress Notes Filed: 07/15/2023 09:26 Note Text: This note was created using Na[employer]. Subjective Jerrell Strickland is a 78 year [...] Date APPENDECTOMY HYSTERECTOMY HX partial- done in [place] LAMINECTOM[facility] W/O FFD 07/12 VERT SEG LUMBAR [...] questions were answered (more content not included)... [facility] 06-20-2023 Hospital Discharg e instructions Patient Education [...] some information about medicine: You may use hiwe-vkm-swqlejy medicine such as acetaminophen or ibuprofen to [...] re-open Bleeding not controlled by direct pressure [id number] [employer]. [address] [place] [address], [place] [address]. All rights reserved. This information is not intended as a substitute for professional medical care. Always follow your healthcare professional's instructions. Follow Up Care 06/20/2023 13:22:32 With:DIONNE MAGAÑA MD Address: SWATI RAMIREZ [address] [place] [address] [id number] When:2-4 days [facility] 06-20-2023 Note Discharge Instructions Thank you for allowing [facility] to assist you with your healthcare needs. [...] Within 2-4 days Where: [facility] [address] [place] [address]- Allergies NKA Medications Please ask your primary [...] some information about medicine: You may use nomf-tgx-ohcylbn medicine such as acetaminophen or ibuprofen to [...] re-open Bleeding not controlled by direct pressure [id number] [employer]. [address] [place] [address], [place] [address]. All rights reserved. This information is not intended as a substitute for professional medical care. Always follow your healthcare professional's instructions. Additional Information VACCINATE! IT SAVES LIVES! Members of the community who have not yet received the COVID-19 vaccine and would like to receive it can visit one of [facility] vaccine clinics. There are many vaccine clinic locations within the [facility]. For locations and available times, please visit [email or web address] It is important to note that some COVID mobile vaccine clinics are held outdoors and may be canceled in rainy or stormy conditions. To learn more about pediatric vaccinations (ages 5-11), we invite you to visit the [employer] webpage. [email or web address] To learn more about the COVID-19 vaccine, we invite you to visit the CDC website for a list of frequently asked questions. https://www.cdc.gov/coronavirus/2 019-ncov/vaccines/faq.html [employer] Patient Portal Access Instructions: Stay connected with your healthcare team and access your personal medical information anytime with the [employer] Patient Portal. If you would like a full copy of your medical records please contact the [facility] Medical Records Department Tuesday through Tuesday between 8a.m. and 4:30p.m. Please follow the directions below to access the portal: 1.Access the email account you provided upon registration to the hospital.2.Look for an invitation email from [facility].3.Open the email and access the invitation link: Accept Invitation to [employer]4.Fill in the required trivedi to create your account. Sign into [email or web address] with your username and password that you [...] you will allow to register on the [employer] Patient Portal for access to your information. You can also access the [employer] Patient Portal on the [employer] ellis. Simply click on Health Records under Health Data and then click on the [employer] logo. HOW TO SAFELY DISPOSE OF PRESCRIPTION [...] Call your local pharmacy or go to [email or web address] to find one close to you.3.Make use of household items: Use cat litter or old coffee grounds to dispose medications if other options are not available. Mix your drugs with these household products, seal them in an airtight container and throw it into the garbage. Call [facility]: [phone] to be sure your drugs can be [...] aware that I should contact my doctor. 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 Mindy Singletary LPN Left message for patient to call back and ask to talk to a triage nurse. Doreen Dobson ----- Message from Giovana Gill APRN.SOCIAL SCIENCE ANALYST sent at 06/15/2023 7:26 AM EST ----- Urine culture did not show clear evidence of infection, however it appears sample may have been contaminated with skin bacteria during collection. If not improving, recommend follow up with PCP. Giovana Gill CNP documented in this encounter [facility] 06-14-2023 Miscellaneous Notes Patient returned call and went over results, notes from express care provider with understanding. Left message for patient to return call. Suzanne Galeana LPN ----- Message from Giovana Gill APRN.SOCIAL SCIENCE ANALYST sent at 06/14/2023 7:14 AM EST ----- Please advise patient the COVID and flu test was negative. documented in this encounter [facility] 06-13-2023 Note HNO ID: [id number] Author: Chito Moura APRN.SOCIAL SCIENCE ANALYST Service: ? Author Type: Nurse Practitioner Type: [...] Date APPENDECTOMY HYSTERECTOMY HX partial- done in [place] L[facility] W/O FFD 07/12 VERT SEG LUMBAR [...] rash. Neurological: Ment (more content not included)... [facility] 06-13-2023 Miscellaneous Notes Addended by: ALEX CARTWRIGHT on: 06/13/2023 07:05 PM Modules accepted: Orders documented in this encounter [facility] 06-13-2023 History of Presen t [...] Date APPENDECTOMY HYSTERECTOMY HX partial- done in [place] L[facility] W/O FFD 07/12 VERT SEG LUMBAR [...] & INFLUENZA A/B NAAT, ROUTINE Chito Moura APRN.SOCIAL SCIENCE ANALYST documented in this encounter [facility] 02-15-2023 Note HNO ID: [id number] Author: Mali Jesus APRN.SATISH Service: ? Author [...] by the patient and a relative. No language path was used. Animal Bite The incident occurred [...] Date APPENDECTOMY HYSTERECTOMY HX partial- done in [place] [facility] W/O FFD 07/12 VERT SEG LUMBAR [...] tingling, focal weakness, (more content not included)... [facility] 02-15-2023 History of Presen t illness Narrative This note was created using Naowriter. Subjective Jerrell Strickland is a 77 year [...] by the patient and a relative. No language path was used. Animal Bite The incident occurred [...] Date APPENDECTOMY HYSTERECTOMY HX partial- done in [place] [facility] W/O FFD 07/12 VERT SEG LUMBAR [...] [facility] Jesus APRN.SOCIAL SCIENCE ANALYST documented in this encounter [facility] 02-07-2023 Note HNO ID: [id number] Author: Ashley Granados RT(R) Service: Radiology Author [...] RT Jacqueline(R) February 07, 2023 4:01 PM [facility] 02-07-2023 Note HNO ID: [id number] Author: J Luis Sanches APRN.CNP Service: ? [...] history is provided by the patient. No language path was used. Pain (foot) Review of Systems [...] Date APPENDECTOMY HYSTERECTOMY HX partial- done in [place] [facility] W/O FFD 07/12 VERT SEG LUMBAR [...] noted. IMPRESSION IMPRESSION: No acute osseous abnormality Salt Manager: PAZ Transcribe Date/Time: Feb 07 2023 4:09P [...] with this care plan. J Luis Sanches APRN.[facility] 02-07-2023 History of Presen t illness Narrative [...] history is provided by the patient. No language path was used. Pain (foot) Review of Systems [...] Date APPENDECTOMY HYSTERECTOMY HX partial- done in [place] [facility] W/O FFD 07/12 VERT SEG LUMBAR [...] noted. IMPRESSION IMPRESSION: No acute osseous abnormality Salt Manager: PAZ Transcribe Date/Time: Feb 07 2023 4:09P Dictated by : MINERVA PATRICK MD - METHYLPREDNISOLONE 4 MG TABLETS IN A DOSE PACK Was educated about proper use of medication and supportive therapies. Patient was educated if signs and symptoms do not seem to be alleviated with the steroids that she should follow-up with primary care. Patient was okay with this care plan. JL uis Sanches APRN.SOCIAL SCIENCE ANALYST documented in this encounter [facility] 02-03-2023 Miscellaneous Notes I attempted [...] know the above. documented in this encounter [facility] 01-31-2023 Note HNO ID: [id number] Author: Alex Cartwright MD Service: ? Author [...] purulent drainage, or fever/malaise. Alex Cartwright MD [facility] 07-09-2022 Hospital Discharg e instructions Patient Education [...] by your health care provider. 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 ?Change your dressing as told by your [...] 01/14/2006 Document Revised: 10/19/2019 Document Reviewed: 04/11/2017 [employer] Patient Education 2020 Xyo. 07/07/2022 08:32:43 5 - [facility] Post-op Instruction 02/2017 (54565) [facility] Post-operative Instructions PLEASE FOLLOW [facility] POST-OP INSTRUCTIONS GIVEN WATCH FOR SIGNS OF INFECTION: call the office ([phone]) if experencing any of the following: (Usually [...] on your follow up instructions. Form: 338A (50312) R: 11/14 Follow Up Care 05/21/2022 09:31:51 With:Eulalia Bridges PT Address: When:07/20/2022 14:00:00 Comments:Follow-up as scheduled With:TANNER HAHN PA-C, Orthopedic Address: [facility] [address] [place] [phone] When:07/16/2022 Comments:Follow-up as scheduled [facility] 07-09-2022 Note Discharge Instructions Thank you for allowing [facility] to assist you with your healthcare needs. [...] Follow-up as scheduled Where: [facility] [address] [place] [id number]- The Following Activity and Diet Have Been [...] 12 hours Duration: 5 Days Pickup at [facility] Unchanged acetaminophen (acetaminophen 500 mg oral tablet) 2 tab(s) by mouth Three (3) times a day as needed for as needed for pain not to exceed 3000 mg/ day Pickup at [facility] Unchanged albuterol (Albuterol (Eqv-ProAir HFA) 90 [...] weeks postoperatively for DVT prophylaxis. Pickup at [facility] Unchanged baclofen (baclofen 20 mg oral [...] bowel movement, then as needed Pickup at [facility] Unchanged famotidine (famotidine 40 mg [...] anti-inflammatories while on meloxicam/ Mobic Pickup at [facility] Unchanged metFORMIN (metFORMIN 500 mg oral [...] shoulder 1-2 tab(s) Oral q4h Pickup at [facility] Unchanged pantoprazole (pantoprazole 40 mg oral enteric coated tablet) TAKE 1 TABLET BY MOUTH DAILY Unchanged rOPINIRole (rOPINIRole 0.5 mg oral tablet) TAKE 1 TO 2 TABLETS AT BEDTIME Unchanged rosuvastatin (rosuvastatin 5 mg oral tablet) TAKE 1 TABLET BY MOUTH AT BEDTIME Unchanged vitamin E (vitamin E 1000 intl units oral capsule) 1 cap by mouth Once a day Pharmacy Information [facility]: [address] [place], [place] [phone] What When Comments Stop Taking acetaminophen-hydrocodone (acetaminophen-hydrocodone [...] may report side effects to FDA at 4-974-IXZ-5395. What other drugs will affect docusate and senna? Other drugs may affect docusate and senna, including prescription and shjf-lua-actpojb medicines, vitamins, and herbal products. Tell your [...] to ensure that the information provided by [employer]. ('[employer]') is accurate, up-to-date, and complete, but no guarantee is made to that effect. Drug information contained herein may be time sensitive. [employer] information has been compiled for use by healthcare practitioners and consumers in the [place] and therefore [employer] does not warrant that uses outside of the [place] are appropriate, unless specifically indicated otherwise. [employer] drug information does not endorse drugs, diagnose patients or recommend therapy. [employer] drug information is an informational resource designed [...] effective or appropriate for any given patient. [employer] does not assume any responsibility for any aspect of healthcare administered with the aid of information [employer] provides. The information contained herein is not intended to cover all possible uses, directions, precautions, warnings, drug interactions, allergic reactions, or adverse effects. If you have questions about the drugs you are taking, check with your doctor, nurse or pharmacist. Copyright 1747-7565 [employer]. Version: 3.02. Revision Date: 09/24/2020. aspirin (oral) ( pir in) Arthritis Pain, Aspi-Cor, Aspir-Low, Nancy Plus, Durlaza, Ecotrin, Miniprin, Vazalore What is the most important information I should know about aspirin? Aspirin can cause Zahida's syndrome, a serious and sometimes fatal condition in children. What is aspirin? Aspirin is a salicylate (ps-SVQ-jt-ate) that is used to treat pain, and [...] may report side effects to FDA at 9-284-YQZ-4847. What other drugs will affect aspirin? Ask [...] drugs may affect aspirin, including prescription and lkaw-vlo-duzfugd medicines, vitamins, and herbal products. Not all [...] to ensure that the information provided by [employer]. ('[employer]') is accurate, up-to-date, and complete, but no guarantee is made to that effect. Drug information contained herein may be time sensitive. [employer] information has been compiled for use by healthcare practitioners and consumers in the [place] and therefore [employer] does not warrant that uses outside of the [place] are appropriate, unless specifically indicated otherwise. [employer] drug information does not endorse drugs, diagnose patients or recommend therapy. [employer] drug information is an informational resource designed [...] effective or appropriate for any given patient. [facility] does not assume any responsibility for any aspect of healthcare administered with the aid of information [facility] provides. The information contained herein is not intended to cover all possible uses, directions, precautions, warnings, drug interactions, allergic reactions, or adverse effects. If you have questions about the drugs you are taking, check with your doctor, nurse or pharmacist. Copyright 8072-0494 [facility]. Version: 16.03. Revision Date: 01/05/2021. meloxicam (oral/injection) [...] may report side effects to FDA at 4-961-MBI-7918. What other drugs will affect meloxicam? Ask [...] drugs may affect meloxicam, including prescription and agne-unu-hiykmde medicines, vitamins, and herbal products. Not all [...] to ensure that the information provided by [employer]. ('[employer]') is accurate, up-to-date, and complete, but no guarantee is made to that effect. Drug information contained herein may be time sensitive. [employer] information has been compiled for use by healthcare practitioners and consumers in the [place] and therefore [employer] does not warrant that uses outside of the [place] are appropriate, unless specifically indicated otherwise. [employer] drug information does not endorse drugs, diagnose patients or recommend therapy. [employer] drug information is an informational resource designed [...] effective or appropriate for any given patient. [employer] does not assume any responsibility for any aspect of healthcare administered with the aid of information [employer] provides. The information contained herein is not intended to cover all possible uses, directions, precautions, warnings, drug interactions, allergic reactions, or adverse effects. If you have questions about the drugs you are taking, check with your doctor, nurse or pharmacist. Copyright 7298-0613 [employer]. Version: 14.. Revision Date: 05/13/2020. acetaminophen (oral) (a SEET a MIN oh fen) Actamin, Anacin AF, Aurophen, Bromo Meeker, Children's Tylenol, Mapap, M-Pap, Pharbetol, Silapap Childrens, [...] provided dosing device provided to measure an infant's dose. Acetaminophen comes in many different forms [...] may report side effects to FDA at 1-903-TAE-2721. What other drugs will affect acetaminophen? Other drugs may affect acetaminophen, including prescription and cicr-eco-cvsmufg medicines, vitamins, and herbal products. Tell your [...] to ensure that the information provided by [employer]. ('[employer]') is accurate, up-to-date, and complete, but no guarantee is made to that effect. Drug information contained herein may be time sensitive. [employer] information has been compiled for use by healthcare practitioners and consumers in the [place] and therefore [employer] does not warrant that uses outside of the [place] are appropriate, unless specifically indicated otherwise. [employer] drug information does not endorse drugs, diagnose patients or recommend therapy. [employer] drug information is an informational resource designed [...] effective or appropriate for any given patient. [employer] does not assume any responsibility for any aspect of healthcare administered with the aid of information [employer] provides. The information contained herein is not intended to cover all possible uses, directions, precautions, warnings, drug interactions, allergic reactions, or adverse effects. If you have questions about the drugs you are taking, check with your doctor, nurse or pharmacist. Copyright 3910-2854 [employer]. Version: . Revision Date: 08/28/2021. oxycodone (ox [...] The extended-release form of oxycodone is for lbbxtz-zwo-ufnkt treatment of pain and should not be [...] against the law. Stop taking all other krjfgu-dfb-udpaf opioid pain medicines when you start taking [...] could occur. < (more content not included)... [facility] 07-08-2022 Note Date of Service 07/08/2022 Chief [...] by KUNAL REESE on 07/08/2022 04:05 PM [facility] 07-08-2022 Note Date of Service July 08, [...] detail patient is not to take the [place] 7.5/325 mg while at home for the [...] physical therapy after the 2-week follow-up at [facility] [place]. 5. H & H: 11.7/35.9, asymptomatic. Postoperative [...] physical therapy established. I have reviewed the [place] Automated Rx Reporting System (OARRS) report for [...] TANNER HAHN PA-C on 07/08/2022 02:19 PM [facility] 07-08-2022 Note ORIGINAL EXAMINATION: ONE XRAY VIEW [...] Sign Date: 07/08/2022 12:36:07 AM Ordering Provider: [facility] 07-08-2022 Note ORIGINAL EXAMINATION: ONE XRAY VIEW [...] Sign Date: 07/08/2022 12:36:07 AM Ordering Provider: [facility] 07-07-2022 Nurse Progress note Patient checked on and found difficult to arouse. Did not respond to loud voice and shaking. Sternal rub performed with wincing noted. Bri Quintana RN notified and Low Vasquez CNP notified also. Stronger sternal rub performed per Low Vasquez CNP and pt woke and was speaking and responding to questions appropriately. V/S done, O2 applied and threat monitoring analyst also applied. Digitally Signed by GORDON Evans on 07/07/2022 06:18 PM [facility] 07-07-2022 Note ORIGINAL EXAMINATION: TWO XRAY VIEWS OF THE RIGHT JFQWPBVC37/28/2022 2:30 pm COMPARISON: July 06, 2022 radiograph [...] 07/07/2022 2:50:22 PM Ordering Provider: SHANE VASQUEZ [facility] 07-07-2022 Nurse Progress note At approximately 1340, [...] by GORDON Evans on 07/07/2022 02:49 PM [facility] 07-07-2022 Note ORIGINAL HISTORY: Fall, confusion, [...] Sign Date: 07/07/2022 2:27:06 PM Ordering Provider: [facility] 07-07-2022 Note ORIGINAL EXAMINATION: TWO XRAY VIEWS OF THE RIGHT [id number]/28/2022 2:30 pm COMPARISON: July 06, 2022 radiograph [...] Sign Date: 07/07/2022 2:50:22 PM Ordering Provider: [facility] 07-07-2022 Note ORIGINAL HISTORY: Fall, confusion, [...] Sign Date: 07/07/2022 2:27:06 PM Ordering Provider: [facility] 07-07-2022 Note Date of Service July [...] detail patient is not to take the [place] 7.5/325 mg while at home for the [...] physical therapy after the 2-week follow-up at [facility] [place]. 5. H & H: 11.8/36.1, asymptomatic. Postoperative [...] would like her prescriptions E scribed to [facility] [place]. I again discussed with the patient in great detail postoperative course of treatment as well as the narcotics. She will not take the [place] while we are managing her postoperative pain control. After 6 weeks she will go back with her primary pain management physician. Patient has outpatient physical therapy established. She will follow-up per postop instructions. She will contact her office upon discharge with any concerns or questions. I have reviewed the [place] Automated Rx Reporting System (OARRS) report for [...] TANNER HAHN PA-C on 07/07/2022 08:32 AM [facility] 07-06-2022 Note ORIGINAL HISTORY: Postop COMPARISON: No [...] 07/06/2022 2:01:20 PM Ordering Provider: MIKEY OROPEZA [facility] 07-06-2022 Note ORIGINAL HISTORY: Postop COMPARISON: No [...] 07/06/2022 2:01:20 PM Ordering Provider: MIKEY JOHNNA [facility] 07-06-2022 Anesthesiology Consult note Patient: JERRELL STRICKLAND Age: 76 years Sex: Female : 1945 Associated Diagnoses: None Author: OSCAR COWAN APRN-SPEAR FISHER Preoperative Information Anesthesia history Patient's history: nausea [...] list: Medical Abdominal pain / SNOMED CT 47314894 / Confirmed Asthma / SNOMED CT 679066172 / Confirmed Diverticulosis / SNOMED CT 9879340738 / Confirmed Hiatal hernia / SNOMED CT 020919707 / Confirmed Hypertension / SNOMED CT 9736762164 / Confirmed Hypothyroidism / SNOMED CT 02126386 / Confirmed Fatty liver / SNOMED CT 774250011 / Confirmed Vagal bradycardia / SNOMED CT 76867447 / Confirmed, Active Problems (9) Abdominal pain Asthma Diverticulosis Fatty liver GERD (gastroesophageal reflux disease) Hiatal hernia Hypertension Hypothyroidism Vagal bradycardia Histories Past Medical History: No active or resolved past medical history items have been selected or recorded. Family History: CAD - Coronary artery disease Mother Father Procedure history: Carpal tunnel release (939130848). Repair of shoulder (801689751). Comments: 04/25/2017 7:53 EDGARDO ANGELA RN [place] arthroscopy LEFT History of tonsillectomy (4333146123). Abdominal hysterectomy (886138636). Appendectomy (362304676). Spinal cord stimulation (352817013). 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 Comments: 06/22/2022 13:44 Suzette Lewis RN right Total shoulder replacement (35602622). Comments: 06/22/2022 13:45 Suzette Lewis RN left [...] Height 162.6 cm Admission Weight 164 kg [place] Body Weight 54.74 kg Pain assessment: Pain [...] Height 162.6 cm Admission Weight 164 kg [place] Body Weight 54.74 kg Temperature Temporal Artery [...] no difficulties Skin Temperature Warm Skin Description Robin[place], Normal for ethnicity, Dry Skin Integrity Intact [...] Cooperative Orientation Oriented x 4 Allergies Yes Engraver Steel Plate On Yes Consent Form Signed Yes Patient [...] Room 07/06/2022 9:04 . Assessment and Plan [place] Society of Anesthesiologists (ASA) physical status classification: Class III. Anesthetic Preoperative Plan Anesthetic technique: General. Maintenance airway: Oral endotracheal tube. Postoperative pain management: interscalene block. Risks discussed: nausea, vomiting, sore throat, hypotension, allergic reaction, serious complications. Informed consent: signed by patient. Digitally Signed by OSCAR COWAN on 07/06/2022 10:24 AM [facility] Evaluation + Plan note Future Appointments [facility] documented in this encounter [facility] note* Diagnosis Puncture wound of multiple sites of left upper extremity, initial encounter- Primary documented in this encounter [facility] note* Diagnosis FUO (fever of unknown origin)- Primary Fever, unspecified Viral syndrome Unspecified viral infection, in conditions classified elsewhere and of unspecified site [facility] Narrative No data available for this section [facility] Hospital Discharge instructions No data available for this section [facility] Progress note No data available for this section [facility] Reason for referral (narrative)* Diagnostic Procedure Only (Urgent) - Closed Specialty Diagnoses / Procedures Referred By Contac t Referred To Contact XR IMAGING Diagnoses Pain Procedures XR FOOT GENERAL 3V AP/LAT/OBL LEFT RADEX FOOT COMPLETE MINIMUM 3 VIEWS J Luis Sanches APRN.SOCIAL SCIENCE ANALYST [address] [place] [address] Xr Imaging Referral ID Status Reason Start Date Expiration Date V isits Requested Visits Authorized [id number] Closed Auto-Generate d Referral 02/07/2023 03/08/2024 1 1 [facility] Summary Purpose Family History No Family History Records FoundNo Family History Records Found No data available for this section No data available for this section No Family History Records FoundNo Family History Records Found Advance Directives No Advanced Directives Records FoundDocuments on File Type Date Recorded 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 Advance Directive(s) 11/21/2015 11:24 AM Documents on File Type Date Recorded 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 Advance Directive(s) 11/21/2015 11:24 AM Additional Source Comments INFORMATION SOURCE (unrecogn ized section and content) DATE CREATED AUTHOR AUTHOR'S ORGANIZ ATION 12/25/2017 [facility] DATE CREATED AUTHOR AUTHOR'S ORGANIZ ATION 07/26/2023 [facility] ([place]) DATE CREATED AUTHOR AUTHOR'S ORGANIZ ATION 07/29/2023 [facility] Care Team (unrecognized sect ion and content) Care Team Personnel Name: CHERISE HAMMOND MD Member Role: Primary Care Physician Address: Address: [address] [place] [address] [place] [phone] Care Team Related Persons Name: REMYOctober Care Team Personnel Name: CHERISE HAMMOND MD Member Role: Primary Care Physician Address: Address: [address] [place] [address] [place] [phone] Care Team Related Persons Name: REMYOctober Source Comments (unrecognize d section and content) In the event this informatio n is protected by the Federal Confidentiality of Alcohol and Drug Abuse Patient Records regulations: The Federal rules restrict any use of the information to criminally investigate or prosecute any alcohol or drug abuse patient.[facility] the event this information is protected by the Federal Confidentiality of Alcohol and Drug Abuse Patient Records regulations: The Federal rules restrict any use of the information to criminally investigate or prosecute any alcohol or drug abuse patient.[facility] the event this information is protected by the Federal Confidentiality of Alcohol and Drug Abuse Patient Records regulations: The Federal rules restrict any use of the information to criminally investigate or prosecute any alcohol or drug abuse patient.[facility] the event this information is protected by the Federal Confidentiality of Alcohol and Drug Abuse Patient Records regulations: The Federal rules restrict any use of the information to criminally investigate or prosecute any alcohol or drug abuse patient.[facility] the event this information is protected by the Federal Confidentiality of Alcohol and Drug Abuse Patient Records regulations: The Federal rules restrict any use of the information to criminally investigate or prosecute any alcohol or drug abuse patient.[facility] the event this information is protected by the Federal Confidentiality of Alcohol and Drug Abuse Patient Records regulations: The Federal rules restrict any use of the information to criminally investigate or prosecute any alcohol or drug abuse patient.[facility] Reason for Visit (unrecogniz ed section and content) Reason Comments Pain (foot) Left x 1 day Reason Comments Animal Bite X 1 month ago, redne ss in area of bite Reason Comments Flu Like Symptoms X 5-6 days Care Teams (unrecognized sec tion and content) Bonderizer Relationship Specialty Start Date End Date Dionne Magaña MD [address] [place] [address] PCP - General Internal Medicine 01/31/23 Bonderizer Relationship Specialty Start Date End Date Dionne Magaña MD [address] [place], [place] [id number] [phone] PCP - General Internal Medicine 01/31/23 Bonderizer Relationship Specialty Start Date End Date Dionne Magaña MD [address] [place], [place] [phone] PCP - General Internal Medicine 01/31/23 Bonderizer Relationship Specialty Start Date End Date Dionne Magaña MD [address] [place], [place] [phone] PCP - General Internal Medicine 01/31/23 FOR [...] BE BASED ON THE PRIMARY CLINICAL RECORDS. [employer] [facility]. provides no warranty or guarantee of the accuracy or completeness of information in this document.
== END | disposition home or self-care (01) ==
LOC: BIMLAB 14:23
PROVIDERS: PCP Internal Medicine; Referring Provider Nurse Practitioner; Visit Provider Nurse Practitioner
DX: B35.1 Tinea unguium (principal)
CPT/HCPCS: 36415; 80053; 82248

== ENCOUNTER → 2023-10-03 | Outpatient (CLI) | payer MEDICARE, SELFPAY ==
[2023-10-03 13:19] LABS: T3 Total - Triiodothyronine 1.02 ng/mL (0.6-1.81)
[2023-10-03 13:42] LABS: ALB/GLOB Ratio 1.1 RATIO (0.9-2.4); AST(SGOT) 19 U/L (15-37); Alanine Aminotransfer ALT/SGPT 25 U/L (13-56); Albumin, Serum 3.7 g/dL (3.2-5.0); Alkaline Phosphatase 94 U/L (45-117); Anion Gap 5 (5-15); BUN 18 mg/dL (7-18); BUN/Creat Ratio 19.1 RATIO (10-20); Calcium,Total 9.5 mg/dL (8.5-10.1); Chloride 104 mmol/L (98-107); Creatinine, Serum 0.94 mg/dL (0.55-1.02); EST Glomerular Filtration Rate 61 mL/min (>60); Est Glom Filt Rate - Afr Amer 74 mL/min (>60); Globulin 3.5 g/dL (2.2-4.2); Glucose 98 mg/dL (74-106); Potassium 4.6 mmol/L (3.5-5.1); Protein, Total 7.2 g/dL (6.4-8.2); Sodium Level 134 mmol/L (136-145); T4 Free Direct 1.07 ng/dL (0.76-1.46); Thyroid Stim Hormone (TSH) 0.56 uIU/mL (0.358-3.74)
[2023-10-04 12:09] LABS: ANTINUCLEAR ANTIBODIES DIRECT Positive (Negative); Anti-Centromere B Ab <0.2 AI (0.0-0.9); Anti-Chromatin <0.2 AI (0.0-0.9); Anti-Jo <0.2 AI (0.0-0.9); Anti-Scleroderma-70 AB <0.2 AI (0.0-0.9); Anti-dsDNA Ab <1 IU/mL (0-9); RNP Ab 6.4 AI (0.0-0.9); SJOGREN'S Anti-SS-A test < 0.2 AI (0.0-0.9); SJOGREN'S Anti-SS-B test < 0.2 AI (0.0-0.9); Smith Ab <0.2 AI (0.0-0.9)
== END | disposition home or self-care (01) ==
LOC: BIMLAB 10:07
PROVIDERS: PCP Internal Medicine; Referring Provider Internal Medicine; Visit Provider Internal Medicine
DX: E78.5 Hyperlipidemia, unspecified (principal); E03.9 Hypothyroidism, unspecified; L60.9 Nail disorder, unspecified
CPT/HCPCS: 36415; 80053; 84439; 84443; 84480; 86038; 86225; 86235

== ENCOUNTER → 2023-11-15 | Outpatient (CLI) | payer MEDICARE, SELFPAY ==
[2023-11-15 17:21] LABS: Amphetamine Urine VISTA NEGATIVE (<1000 ng/mL); Barbiturate Urine VISTA NEGATIVE (< 200 ng/mL); Benzodiazepine Urine VISTA NEGATIVE (< 200 ng/mL); Cocaine Urine VISTA NEGATIVE (< 300 ng/mL); Ecstacy Urine VISTA NEGATIVE (< 500 ng/mL); Methadone Urine VISTA NEGATIVE (< 300 ng/mL); PCP Urine VISTA NEGATIVE (< 25 ng/mL); THC Urine VISTA NEGATIVE (< 50 ng/mL); Vista UDS pH Range 6
== END | disposition home or self-care (01) ==
PROVIDERS: PCP Internal Medicine; Referring Provider Anesthesiology Pain Medicine; Visit Provider Anesthesiology Pain Medicine
DX: F11.20 Opioid dependence, uncomplicated (principal)
CPT/HCPCS: 80307

== ENCOUNTER 2023-12-01 18:55 | Emergency (ER) | payer MEDICARE, SELFPAY ==
[2023-12-01 18:56] VITALS: BP 137/40; PULSE 71; RESP 16; TEMP 36.6; O2SAT 97; BMI 29.2
--- NOTE | 2023-12-01 19:15 | CT_ITS ---
We are attempting to reach an attending provider to discuss findings. An addendum with communication details will be sent when the communication is complete. STUDY: CT BRAIN WITHOUT CONTRAST REASON FOR EXAM: Female, 78 years old. dizziness RADIATION DOSAGE (If Supplied By Facility): CTDIvol = ( 44.99 ) mGy, DLP = ( 812.98 ) mGycm TECHNIQUE: Transaxial CT imaging of the brain was performed without administration of intravenous contrast material. Individualized dose optimization techniques were used for this CT. COMPARISON: 07/02/2019 FINDINGS: Normal soft tissue structures. Normal calvarium. Tiny bubbles of gas surrounding the skull base particularly the clivus possibly within the cavernous sinus. This is of uncertain significance. Normal size ventricles and extra-axial spaces for the patient''s age. Normal white matter tracts of the cerebral hemispheres. Normal basal ganglia and thalami. Normal brainstem. Normal cerebellum. There is no intracranial hemorrhage. There are no findings of an acute ischemic infarction. Normal visualized paranasal sinuses. CT/Brain/Head without Contrast IMPRESSION: Pneumocephalus surrounding the clivus possibly within the cavernous sinus. This is of uncertain etiology and significance. No acute intracranial hemorrhage. Electronically Signed: Max Feliciano MD at 20:23 EDT ,
--- NOTE | 2023-12-01 19:19 | EX.ED.DYSGE1 ---
HPI <LEANN Gates - Last Filed: 12/01/23 21:56> History of Present Illness Chief Complaint: Abn Labs Narrative Narrative: Patient is an 78-year-old female with history of hypothyroidism, hyperlipidemia, type 2 diabetes, hypertension who presents to the emergency department for 4 days of worsening weakness. Per the patient, the weakness has been getting worse more at nighttime and in the morning. Patient dates that she is wobbly on her legs. She denies any fever chills nausea or vomiting. Patient that she called the doctor today and had blood work. She was told by the doctor to come to the emergency department for low sodium. PFSH <LEANN Gates - Last Filed: 12/01/23 21:56> [facility] Medical History Allergic rhinitis Asthma Bilateral sacral insufficiency fracture with delayed healing Bleeding tendency Bradycardia Chronic low back pain Chronic pain Debility Diabetes mellitus Easy bruising Essential hypertension Gastroesophageal reflux disease History of colon polyps History of edema History of rheumatic fever Hyperlipidemia Hypothyroidism Injury of head and neck Leg cramps Leukocytosis Localized edema Lumbar spinal stenosis Osteoarthritis Restless leg syndrome Right lumbar radiculopathy Shortness of breath on exertion Thyroid disease Type 2 diabetes mellitus Vasovagal syncope Vitamin B12 deficiency Wears dentures Wears glasses Home Medications ?Medication ?Instructions ?Recorded ?Last Taken ?Type fluticasone furoate 100 1 inh inhalation DAILY SOB 07/15/21 08/06/21 History mcg-vilanterol 25 mcg/dose inhalation powder (Breo Ellipta) albuterol sulfate 90 mcg/actuation 2 puff inhalation Q6H PRN sob 11/29/21 Unknown History aerosol inhaler cholecalciferol (vitamin D3) 25 25 mcg PO DAILY 11/29/21 Unknown History mcg (1,000 unit) tablet (Vitamin D3) hydrocodone-acetaminophen 5-325mg 1 tab PO BID PRN Pain 11/29/21 Unknown History 5mg-325mg mirtazapine 7.5 mg tablet 7.5 mg PO QHS 11/29/21 Unknown History triamcinolone acetonide 55 mcg 1 spray intranasal QHS 11/29/21 Unknown History nasal spray aerosol (Nasacort) zinc 50 mg tablet 50 mg PO DAILY 11/29/21 Unknown History acetaminophen 325 mg capsule 325 mg PO ONCE 01/10/23 Unknown History (Tylenol) ascorbic acid (vitamin C) 1,000 mg 1 g PO DAILY 01/10/23 Unknown History capsule loperamide 2 mg tablet 2 mg PO Q6H PRN nausea and vomiting 01/10/23 Unknown History ropinirole 1 mg tablet 1 mg PO DAILY 01/10/23 Unknown History meloxicam 15 mg tablet 15 mg PO DAILY #90 tabs 04/13/23 Unknown Rx guaifenesin 600 mg tablet, 600 mg PO BID PRN cough 06/15/23 Unknown History extended release 12 hr (Mucinex) ondansetron 4 mg disintegrating 4 mg PO Q8H PRN nausea and 06/16/23 Unknown Rx tablet vomiting #12 tabs triamcinolone acetonide 55 mcg 2 spray intranasal DAILY #16.9 mL 07/13/23 Unknown Rx nasal spray aerosol (Nasacort) mecobalamin (vitamin B12) 1,000 1,000 mcg PO DAILY #30 tabs 07/21/23 Unknown Rx mcg chewable tablet honey-hydrocolloid dressing 1.8 #10 ea 08/01/23 Unknown Rx X 1.8 ([facility]) levothyroxine 200 mcg tablet 200 mcg PO DAILY #90 tabs 08/29/23 Unknown Rx olmesartan 20 mg tablet 20 mg PO DAILY #90 tabs 08/29/23 Unknown Rx rosuvastatin 5 mg tablet 5 mg PO QHS #90 tabs 08/29/23 Unknown Rx sennosides 8.6 mg capsule (senna) 8.6 mg PO DAILY PRN constipation 08/29/23 Unknown Rx #30 caps ammonium lactate 12 % lotion 1 applic topical BID #225 grams 10/03/23 Unknown Rx terbinafine HCl 250 mg tablet 250 mg PO DAILY #30 tabs 10/03/23 Unknown Rx cetirizine 10 mg tablet 10 mg PO DAILY PRN Allergy 10/24/23 Unknown Rx Symptoms #30 tabs famotidine 40 mg tablet 40 mg PO DAILY #90 tabs 11/24/23 Unknown Rx ferrous sulfate 325 mg (65 mg 325 mg PO DAILY Supplement #90 tabs 11/24/23 Unknown Rx iron) tablet gabapentin 300 mg capsule 300 mg PO QHS #30 caps 11/24/23 Unknown Rx amlodipine 10 mg tablet See Rx Instructions .Route 05/17/24 Unknown Rx .COMPLEX #90 tabs prednisone 20 mg tablet 20 mg PO BID #10 tabs 12/01/23 Unknown Rx Allergy/AdvReac Type Severity Reaction Status Date / Time clindamycin Allergy Mild rash Verified 12/01/23 13:53 codeine phosphate (From AdvReac Severe Nausea Verified 12/01/23 13:53 Tylenol-Codeine #3) Family History Mother Heart valve disorder Hypertension Heart disease Father Pneumococcal pneumonia CVA (cerebral vascular accident) Heart disease Myocardial infarction CABG Daughter Diabetes Grandmother Diabetes Surgical History History of appendectomy History of bilateral carpal tunnel release History of cardiac catheterization History of colonoscopy (2012) History of hysterectomy History of loop recorder (2012) history of pain stimulator Hx of decompressive lumbar laminectomy Hx of lumbar discectomy Hx of tonsillectomy Hx of total hip arthroplasty Status post reverse total arthroplasty of left shoulder Social History household members: none housing: apartment number of children: 2 current occupational status: retired current occupation: worked at [employer] current occupational exposures/hazards: No pets and animals: No leisure activities: exercise and volunteer work Smoking Status: Never smoker Electronic Cigarette Use: not used alcohol intake: never substance use type: does not use what type of physical activity do you participate in: walking frequency: 3-4 times per week do you feel safe at home: Yes additional social history: daughter lives nearby ROS <LEANN Gates - Last Filed: 12/01/23 21:56> VIET ED VIET Narrative Constitutional: Negative for fever, chills, weight loss Eyes: Negative for vision loss, vision change, double vision ENT: Negative for any sore throat, ear pain, congestion Cardiovascular: Negative for any chest pain, tightness, palpitations Respiratory: Negative for any cough, sputum production, hemoptysis, dyspnea, dyspnea on exertion, orthopnea Gastrointestinal: Negative for any abdominal pain, nausea, vomiting, diarrhea, constipation, blood in stool, blood in vomit : Negative for any urinary frequency, dysuria, retention, blood in urine Muscle skeletal: Negative for any neck pain, back pain. Positive weakness, difficulty ambulating Neurological: Negative for any headache, syncope, dizziness Skin: Negative for any rashes, itching, abrasions, lacerations Psychiatric: Negative for any depression, anxiety, stress, suicidal ideation, homicidal ideation Hematologic: Negative for any excessive bruising, easy bleeding EXAM <LEANN Gates - Last Filed: 12/01/23 21:56> Physical Exam Narrative Exam Narrative: Vital signs reviewed. HEET: Head normocephalic atraumatic, TMs clear bilaterally. Posterior pharynx is clear, moist mucous membranes. Nares clear bilaterally. Pupils equal round reactive to light. Negative for any hemotympanum or septal hematoma. Neck: Supple with no lymphadenopathy or tenderness. No signs of meningismus. Cardiac: Regular rate and rhythm no murmurs gallops or rubs, equal peripheral pulses bilaterally. Respiratory: Lungs clear to auscultation bilaterally. No chest tenderness. Abdomen: Soft, nontender, nondistended. No abdominal bruit or pulsatile masses. No hepatosplenomegaly Extremities: No peripheral edema, no signs of gross trauma or deformity. Active full range of motion of all extremities. Neuro: Cranial nerves II through XII intact, no focal neurological deficits. Skin: Clean dry and intact with no rash, purpura, petechiae, vesicles or pustules. Backs/flank: No CVA tenderness, no midline spinal tenderness, no deformity. Psych: Normal mood and affect. No SI, HI or acute psychosis. Ambulate: Patient when getting up, does feel her legs are giving out, she feels shaky. Const Vital Signs: 12/01/23 18:56 12/01/23 19:13 12/01/23 19:56 Temperature 98 F Temperature Source Temporal Pulse Rate 71 70 Respiratory Rate 16 16 Respiratory Effort Normal Non-Labored Respiratory Pattern Normal Blood Pressure 137/40 H 144/113 H Blood Pressure Mean 72 123 Pulse Ox 97 98 Oxygen Delivery Method Room Air Room Air 12/01/23 20:00 12/01/23 21:00 Temperature Temperature Source Pulse Rate 70 78 Respiratory Rate 16 16 Respiratory Effort Respiratory Pattern Blood Pressure 144/113 H 148/68 H Blood Pressure Mean 123 94 Pulse Ox 98 97 Oxygen Delivery Method Room Air Room Air <Dr. Magan Carroll DO - Last Filed: 12/01/23 23:30> Physical Exam Const Vital Signs: 12/01/23 18:56 12/01/23 19:13 12/01/23 19:56 Temperature 98 F Temperature Source Temporal Pulse Rate 71 70 Respiratory Rate 16 16 Respiratory Effort Normal Non-Labored Respiratory Pattern Normal Blood Pressure 137/40 H 144/113 H Blood Pressure Mean 72 123 Pulse Ox 97 98 Oxygen Delivery Method Room Air Room Air 12/01/23 20:00 12/01/23 21:00 Temperature Temperature Source Pulse Rate 70 78 Respiratory Rate 16 16 Respiratory Effort Respiratory Pattern Blood Pressure 144/113 H 148/68 H Blood Pressure Mean 123 94 Pulse Ox 98 97 Oxygen Delivery Method Room Air Room Air MDM <Oscar Calikaren CORPORATE LEGAL SECRETARY-C - Last Filed: 12/01/23 21:56> MDM Radiography Diagnostic Testing: Clinical Impression(s) from Imaging Studies Brain CT 12/01/23 19:15 IMPRESSION: Pneumocephalus surrounding the clivus possibly within the cavernous sinus. This is of uncertain etiology and significance. No acute intracranial hemorrhage. Electronically Signed: Max Feliciano MD at 20:23 EDT Reading Location ID and State: [id number] / [employer] Tel , Service support , ADDENDUM: 12/01/232037 IMPRESSION: Pneumocephalus surrounding the clivus possibly within the cavernous sinus. This is of uncertain etiology and significance. No acute intracranial hemorrhage. N.B. : The above Results were Read Back by Max Feliciano MD to Magan Ross DO, and understanding confirmed on 12/01/2023 20:31:38 (ET). Electronically Signed: Max Feliciano MD at 20:23 EDT , Treatment and Re-Evaluation :: Differential diagnosis includes however is not limited to: Hyponatremia, CVA/TIA, electrolyte abnormalities, nausea vomiting, excess water hydration Patient is alert and orient x 4, patient is in no obvious distress. Patient presents to the emergency department with complaints of weakness, difficulty ambulating. Patient did call her PCP, this has been ongoing for 4 days. Patient CBC shows slight anemia with a hemoglobin of 10.1, patient's chemistries did show a sodium of 123, they were concerned about this, creatinine was 0.9. Urinalysis negative for infection. Secondary to this finding, patient will need to be admitted to the hospital. I spoke with the patient at length, patient will receive 1 L normal saline, and also CT the patient's brain. Patient CT scan shows pneumocephalus surrounding the clivus possibly with the cavernous sinus. This is of uncertain etiology and significance. No acute intracranial hemorrhage. Secondary to this finding, patient might need to be transferred, we do have a call out to [facility] in [place]. <Dr. Magan Carroll, DO - Last Filed: 12/01/23 23:30> [facility] Narrative Medical decision making narrative: I have personally performed a face to face assessment of the patient and have reviewed the IZAIAH Note. I performed a substantive portion of the visit including all aspects of the following. My marlow findings include: History is [patient presents to the emergency department with complaint of feeling dizzy for about 4 days. Patient is felt off balance. She saw her primary care physician who did basic labs today and then was called and told to come to the emergency department because she had a low sodium. Patient states that she has been drinking lots of water as much as 3 16 ounce glasses per day.] She denies falls or head injuries. She denies recent illness. She denies urinary symptoms. Patient not on diuretics and has had no medication changes. Exam is [HEENT-PERRLA, EOMI. Cranial nerves II through XII grossly intact. TMs clear. Mucous membranes moist. No adenopathy. Cardiovascular-regular rate and rhythm without murmur or ectopy Lungs-clear to auscultation, chest wall stable without crepitus or subcu emphysema Abdomen-normoactive bowel sounds, soft, nontender, no rebound or rigidity, no peritoneal signs. Extremities-intact ?4, normal range of motion, normal pulses, atraumatic] Medical Decison Making [patient presents with dizziness and recent diagnosis of hyponatremia. Clinically she looks well. Given her age and complaint of off balance sensation for [address] scan of the brain without contrast was obtained and this showed pneumocephalus along the sella turcica with air possibly within the cavernous sinus. Etiology and significance unclear. Discussed results with patient. Recommended admission. I felt she would require a neurosurgical consultation. Discussed case with family and they would initially prefer to go to [facility] in [place] and I did attempt to contact them but they do not have bed availability. Also discussed with [facility] and they do not have bed availability. Discussed case with [facility] in [place] and they felt patient would be better served at [facility] given the complaint and findings. Discussed case with [facility] neurosurgeon on-call who accepted transfer of patient to their facility.] Other additions or changes: [None] Radiography Diagnostic Testing: Clinical Impression(s) from Imaging Studies Brain CT 12/01/23 19:15 IMPRESSION: Pneumocephalus surrounding the clivus possibly within the cavernous sinus. This is of uncertain etiology and significance. No acute intracranial hemorrhage. Electronically Signed: Max Feliciano MD at 20:23 EDT Reading Location ID and State: [id number] / [employer] Tel , Service support , ADDENDUM: 12/01/232037 IMPRESSION: Pneumocephalus surrounding the clivus possibly within the cavernous sinus. This is of uncertain etiology and significance. No acute intracranial hemorrhage. N.B. : The above Results were Read Back by Max Feliciano MD to Magan Ross DO, and understanding confirmed on 12/01/2023 20:31:38 (ET). Electronically Signed: Max Feliciano MD at 20:23 EDT Reading Location ID and State: [id number] / [employer] Tel , Service support , Discharge Plan Triage Chief Complaint: Abn Labs ED Midlevel Provider: Oscar Centeno ED Provider: Magan Carroll Dx/Rx/DC Orders Clinical Impression: Weakness, Dizziness, Acute hyponatremia, Pneumocephalus Prescriptions: No Action ascorbic acid (vitamin C) 1,000 mg capsule 1 g PO DAILY loperamide 2 mg tablet 2 mg PO Q6H PRN (Reason: nausea and vomiting) acetaminophen [Tylenol] 325 mg capsule 325 mg PO ONCE meloxicam 15 mg tablet 15 mg PO DAILY Qty: 90 1RF mecobalamin (vitamin B12) 1,000 mcg tablet,chewable 1,000 mcg PO DAILY Qty: 30 2RF guaifenesin [Mucinex] 600 mg tablet extended release 12hr 600 mg PO BID PRN (Reason: cough) triamcinolone acetonide [Nasacort] 55 mcg aerosol,spray 2 spray intranasal DAILY Qty: 16.9 1RF Rx Instructions: administer into each nostril (DME) [facility] HCS 1.8 X 1.8 bandage See Rx Instructions .Route Qty: 10 0RF Rx Instructions: As directed terbinafine HCl 250 mg tablet 250 mg PO DAILY Qty: 30 0RF ammonium lactate 12 % lotion 1 applic topical BID Qty: 225 0RF prednisone 20 mg tablet 20 mg PO BID Qty: 10 0RF fluticasone furoate-vilanterol [Breo Ellipta] 100-25 mcg/dose Blister With Device 1 inh INHALATION DAILY hydrocodone-acetaminophen 5-325 mg tablet 1 tab PO BID PRN (Reason: Pain) Patient Comments: TAKE 1 TABLET BY MOUTH TWICE DAILY NEEDED FOR 28 DAYS triamcinolone acetonide [Nasacort] 55 mcg Aerosol,[place] 1 spray INTRANASAL QHS zinc 50 mg Tablet 50 mg PO DAILY albuterol sulfate 90 mcg/actuation HFA aerosol inhaler 2 puff INHALATION Q6H PRN (Reason: sob) Patient Comments: Inhale 2 puff as directed every six hours as needed mirtazapine 7.5 mg tablet 7.5 mg PO QHS cholecalciferol (vitamin D3) [Vitamin D3] 25 mcg (1,000 unit) Tablet 25 mcg PO DAILY ropinirole 1 mg tablet 1 mg PO DAILY ondansetron 4 mg tablet,disintegrating 4 mg PO Q8H PRN (Reason: nausea and vomiting) Qty: 12 0RF levothyroxine 200 mcg tablet 200 mcg PO DAILY Qty: 90 1RF olmesartan 20 mg tablet 20 mg PO DAILY Qty: 90 1RF rosuvastatin 5 mg tablet 5 mg PO QHS Qty: 90 1RF senna 8.6 mg capsule 8.6 mg PO DAILY PRN (Reason: constipation) Qty: 30 0RF cetirizine 10 mg tablet 10 mg PO DAILY PRN (Reason: Allergy Symptoms) Qty: 30 3RF ferrous sulfate 325 mg (65 mg iron) tablet 325 mg PO DAILY Qty: 90 0RF famotidine 40 mg tablet 40 mg PO DAILY Qty: 90 0RF gabapentin 300 mg capsule 300 mg PO QHS Qty: 30 0RF amlodipine 10 mg tablet See Rx Instructions .ROUTE .COMPLEX Qty: 90 1RF Dose Instruction: TAKE 1 TABLET BY MOUTH EVERY DAY AT BEDTIME Rx Instructions: TAKE 1 TABLET BY MOUTH EVERY DAY AT BEDTIME Primary Care Provider: Marcelle Magaña Referrals: Marcelle Magaña MD [Primary Care Provider] - Print Language: Lao Disposition Disposition: DC/Tx to Another Type of HCF
[2023-12-01] MEDS: 0.9% Normal Saline (1000mL) 1,000 ML 999 ML IV (19:46)
[2023-12-01 19:56] VITALS: BP 144/113; PULSE 70; RESP 16; O2SAT 98
[2023-12-01 20:00] VITALS: BP 144/113; PULSE 70; RESP 16; O2SAT 98
[2023-12-01 21:00] VITALS: BP 148/68; PULSE 78; RESP 16; O2SAT 97
[2023-12-01 23:00] VITALS: BP 161/77; PULSE 72; RESP 11; O2SAT 97
[2023-12-01] MEDS: Ceftriaxone 2 GM in 0.9% Normal Saline (50mL MB+) 50 ML IV (23:06)
[2023-12-01] MEDS: 0.45% Normal Saline 1,000 ML 150 ML IV (23:36)
[2023-12-02] VITALS (11 sets, daily range): BP systolic 106–163; BP diastolic 48–76; PULSE 58–76; RESP 12–20; TEMP 36.2–36.7; O2SAT 96–98
== END 2023-12-02 09:31 | disposition other institution (70) ==
PROVIDERS: Emergency Provider Emergency Medicine; PCP Internal Medicine; Visit Provider Emergency Medicine
DX: R53.1 Weakness (principal); E11.9 Type 2 diabetes mellitus without complications; E87.1 Hypo-osmolality and hyponatremia; I10 Essential (primary) hypertension; R42 Dizziness and giddiness; G93.89 Other specified disorders of brain; E78.5 Hyperlipidemia, unspecified; J45.909 Unspecified asthma, uncomplicated; Z79.51 Long term (current) use of inhaled steroids; G25.81 Restless legs syndrome; Z79.899 Other long term (current) drug therapy; E03.9 Hypothyroidism, unspecified; M19.90 Unspecified osteoarthritis, unspecified site; Z90.49 Acquired absence of other specified parts of digestive tract; Z90.710 Acquired absence of both cervix and uterus; Z96.649 Presence of unspecified artificial hip joint; Z96.612 Presence of left artificial shoulder joint
CPT/HCPCS: 70450; 87040; 99284; J7030; J7050; A4216; J0696

== ENCOUNTER → 2023-12-01 | Outpatient (CLI) | payer MEDICARE, SELFPAY ==
[2023-12-01 15:12] LABS: Bacteria 0 SEEN /hpf (None Seen); Mucous, Urine 0 SEEN /hpf (<or=2+); Red Blood Cells-Urine 0 SEEN /hpf (0-5)
[2023-12-01 16:45] LABS: Color, Urine Yellow (Yellow); Glucose, Dipstick Normal (Normal); Ketone-Dipstick Negative (Negative); Leukocyte Esterase-Dipstick 100 /ul (Negative); Nitrite-Dipstick Negative (Negative); Occult Blood-Urine Negative /ul (Negative); Protein-Dipstick Negative (Negative); Specific Gravity, Urine 1.015 (1.002-1.030); Urine Bilirubin Dipstick Negative (Negative); Urine Clarity Clear (Clear); Urine Urobilinogen Normal (Normal)
[2023-12-01 16:47] LABS: Absolute Neutrophil Count 5.2 X10^3/uL (2.0-7.7); Basophil# 0.08 X10^3/uL; Eosinophil# 0.27 X10^3/uL; Eosinophils% 3.4 % (0-5); Hematocrit 30.3 % (37-47); Hemoglobin 10.1 g/dL (12.0-15.0); Lymphocyte % 17.6 % (19-41); Mean Corp Hgb Conc 33.3 g/dL (32-36); Mean Corpuscular Hgb 33.7 pg (27.0-32.0); Mean Platelet Vol. 11.2 fl (6.2-12.0); Monocyte# 0.96 X10^3/uL; Monocyte% 12.1 % (0-10); NRBC Flagged by Analyzer 0 % (0-5); Neutrophil % 65.5 % (47-70); Platelet Count 246 K/mm3 (150-450); RBC Distribution Width CV 12.8 % (11.6-14.6); RBC Distribution Width SD 47.7 fl (35.1-43.9); White Blood Count 7.9 K/mm3 (4.4-11.0)
[2023-12-01 17:04] LABS: AST(SGOT) 16 U/L (15-37); Alanine Aminotransfer ALT/SGPT 28 U/L (13-56); Albumin, Serum 3.4 g/dL (3.2-5.0); Alkaline Phosphatase 100 U/L (45-117); Anion Gap 8 (5-15); BUN 21 mg/dL (7-18); BUN/Creat Ratio 23.2 RATIO (10-20); Calcium,Total 8.8 mg/dL (8.5-10.1); Chloride 92 mmol/L (98-107); EST Glomerular Filtration Rate 64 mL/min (>60); Est Glom Filt Rate - Afr Amer 77 mL/min (>60); Globulin 3.4 g/dL (2.2-4.2); Glucose 104 mg/dL (74-106); Potassium 4.1 mmol/L (3.5-5.1); Protein, Total 6.8 g/dL (6.4-8.2); Sodium Level 123 mmol/L (136-145)
[2023-12-01 17:32] LABS: Squamous Epithelial Cells - UA 0-5 SEEN /hpf (5-10); White Blood Cells 0-5 SEEN /hpf (0-5)
== END | disposition home or self-care (01) ==
LOC: BIMLAB 15:11
PROVIDERS: PCP Internal Medicine; Visit Provider Physician Assistant
DX: R26.89 Other abnormalities of gait and mobility (principal); N39.43 Post-void dribbling
CPT/HCPCS: 36415; 80053; 81001; 85025

== ENCOUNTER → 2023-12-14 | Outpatient (CLI) | payer MEDICARE, SELFPAY ==
[2023-12-14 15:23] LABS: Absolute Lymphocyte Count 2.29 X10^3/uL (0.83-4.51); Absolute Neutrophil Count 8.5 X10^3/uL (2.0-7.7); Basophil# 0.08 X10^3/uL; Basophil% 0.6 % (0-1); Eosinophils% 3.2 % (0-5); Hematocrit 35.5 % (37-47); Hemoglobin 11.1 g/dL (12.0-15.0); Lymphocyte # 2.29 X10^3/ul (0.83-4.51); Lymphocyte % 18.2 % (19-41); Mean Corp Hgb Conc 31.3 g/dL (32-36); Mean Corpuscular Hgb 32.9 pg (27.0-32.0); Mean Corpuscular Volume 105.3 fL (81-99); Mean Platelet Vol. 11.2 fl (6.2-12.0); Monocyte# 1.26 X10^3/uL; NRBC Flagged by Analyzer 0 % (0-5); Neutrophil # 8.51 X10^3/uL (2.7-7.7); Neutrophil % 67.4 % (47-70); Platelet Count 313 K/mm3 (150-450); RBC Distribution Width CV 13.2 % (11.6-14.6); RBC Distribution Width SD 50.6 fl (35.1-43.9); Red Blood Count 3.37 M/mm3 (4.2-5.4); White Blood Count 12.6 K/mm3 (4.4-11.0)
[2023-12-14 15:58] LABS: ALB/GLOB Ratio 1.1 RATIO (0.9-2.4); AST(SGOT) 19 U/L (15-37); Alanine Aminotransfer ALT/SGPT 41 U/L (13-56); Albumin, Serum 3.5 g/dL (3.2-5.0); Alkaline Phosphatase 101 U/L (45-117); Anion Gap 8 (5-15); BUN 25 mg/dL (7-18); BUN/Creat Ratio 25.6 RATIO (10-20); Calcium,Total 8.8 mg/dL (8.5-10.1); Chloride 106 mmol/L (98-107); Cholesterol 134 mg/dL (200); Creatinine, Serum 0.98 mg/dL (0.55-1.02); EST Glomerular Filtration Rate 58 mL/min (>60); Est Glom Filt Rate - Afr Amer 71 mL/min (>60); Globulin 3.1 g/dL (2.2-4.2); Glucose 100 mg/dL (74-106); High Density Lipoprotein 39 mg/dL; Potassium 3.8 mmol/L (3.5-5.1); Protein, Total 6.6 g/dL (6.4-8.2); Sodium Level 138 mmol/L (136-145); Triglycerides 188 mg/dL; Very Low Density Lipoprotein 38 mg/dL (5-40)
[2023-12-14 17:07] LABS: Hemoglobin A1c 5.6 % (3.8-5.6)
== END | disposition home or self-care (01) ==
LOC: BIMLAB 12:21
PROVIDERS: PCP Internal Medicine; Referring Provider Internal Medicine; Visit Provider Internal Medicine
DX: E11.9 Type 2 diabetes mellitus without complications (principal)
CPT/HCPCS: 36415; 80053; 80061; 83036; 85025

== ENCOUNTER → 2023-12-20 | Outpatient (CLI) | payer MEDICARE, SELFPAY ==
--- NOTE | 2023-12-20 12:47 | CDU_ITS ---
Reason For Study: bruit Rt. Velocities/BP Lt. Velocities/BP Prox CCA 86.3/8.8 cm/sec. Prox CCA 77.7/21.2 cm/sec. Mid CCA 86.3/20.1 cm/sec. Mid CCA 55.3/20.1 cm/sec. Dist CCA 78.7/20.1 cm/sec. Dist CCA 172.2/59.0 cm/sec. Prox ICA 200.4/31.9 cm/sec. Prox ICA 208.1/47.4 cm/sec. Mid ICA 140.7/29.3 cm/sec. Mid ICA 226.3/39.7 cm/sec. Dist ICA 103.8/31.4 cm/sec. Dist ICA 189.4/44.6 cm/sec. Rt. ICA/CCA = 2.3. Lt. ICA/CCA = 4.1. Prox ECA 483.2/51.5 cm/sec. Prox ECA 61.7/9.7 cm/sec. Rt. Vert. 72.8/20.0 cm/sec. Lt. Vert. 43.2/11.3 cm/sec. Right Extracranial There is heterogeneous, irregular atherosclerotic plaque noted in the right common carotid artery. There is heterogeneous, irregular atherosclerotic plaque noted in the right internal carotid artery. There is heterogeneous, irregular atherosclerotic plaque noted in the right external carotid artery. Antegrade flow is noted in the right vertebral artery. Left Extracranial There is heterogeneous, irregular atherosclerotic plaque noted in the left common carotid artery. There is heterogeneous, irregular atherosclerotic plaque noted in the left internal carotid artery. There is heterogeneous, irregular atherosclerotic plaque noted in the left external carotid artery. Antegrade flow is noted in the left vertebral artery. Procedure Carotid Duplex 11202. This is a Carotid Duplex examination using B-mode, color flow and specral Doppler. The exam was diagnostic. Exam performed in department. VL/Carotid Duplex Ultrasound Interpretation Summary Moderate (50-69%) stenosis right extracranial internal carotid. Moderate (50-69%) stenosis left extracranial internal carotid. Patent and antegrade vertebrals bilaterally. Ordering Physician: Dayday Hairston Referring Physician: Dayday Hairston Performed By: Anson Rose RVT
== END | disposition home or self-care (01) ==
PROVIDERS: PCP Internal Medicine; Referring Provider Physician Assistant; Visit Provider Physician Assistant
DX: R09.89 Other specified symptoms and signs involving the circulatory and respiratory systems (principal)
CPT/HCPCS: 93880

== ENCOUNTER → 2024-01-10 | Outpatient (CLI) | payer MEDICARE, SELFPAY ==
[2024-01-10 15:44] LABS: ALB/GLOB Ratio 1.1 RATIO (0.9-2.4); AST(SGOT) 19 U/L (15-37); Alanine Aminotransfer ALT/SGPT 29 U/L (13-56); Albumin, Serum 3.5 g/dL (3.2-5.0); Alkaline Phosphatase 96 U/L (45-117); Anion Gap 8 (5-15); BUN 15 mg/dL (7-18); BUN/Creat Ratio 15.4 RATIO (10-20); Calcium,Total 9.3 mg/dL (8.5-10.1); Chloride 110 mmol/L (98-107); Creatinine, Serum 0.98 mg/dL (0.55-1.02); EST Glomerular Filtration Rate 58 mL/min (>60); Est Glom Filt Rate - Afr Amer 71 mL/min (>60); Globulin 3.3 g/dL (2.2-4.2); Glucose 111 mg/dL (74-106); Lipase 29 U/L (13-75); Potassium 5.2 mmol/L (3.5-5.1); Protein, Total 6.8 g/dL (6.4-8.2); Sodium Level 140 mmol/L (136-145)
[2024-01-10 15:45] LABS: Absolute Lymphocyte Count 2.09 X10^3/uL (0.83-4.51); Basophil# 0.09 X10^3/uL; Basophil% 0.8 % (0-1); Eosinophil# 0.59 X10^3/uL; Eosinophils% 5.3 % (0-5); Hematocrit 34.1 % (37-47); Hemoglobin 10.6 g/dL (12.0-15.0); Lymphocyte # 2.09 X10^3/ul (0.83-4.51); Lymphocyte % 18.9 % (19-41); Mean Corp Hgb Conc 31.1 g/dL (32-36); Mean Corpuscular Hgb 33.1 pg (27.0-32.0); Mean Corpuscular Volume 106.6 fL (81-99); Monocyte# 1.18 X10^3/uL; Monocyte% 10.7 % (0-10); NRBC Flagged by Analyzer 0 % (0-5); Neutrophil # 6.98 X10^3/uL (2.7-7.7); Neutrophil % 63.2 % (47-70); Platelet Count 229 K/mm3 (150-450); RBC Distribution Width CV 13.9 % (11.6-14.6); RBC Distribution Width SD 54.5 fl (35.1-43.9); White Blood Count 11.1 K/mm3 (4.4-11.0)
== END | disposition home or self-care (01) ==
LOC: BIMLAB 13:24
PROVIDERS: PCP Internal Medicine; Referring Provider Nurse Practitioner; Visit Provider Nurse Practitioner
DX: R19.5 Other fecal abnormalities (principal); R10.9 Unspecified abdominal pain; D72.829 Elevated white blood cell count, unspecified
CPT/HCPCS: 36415; 80053; 83690; 85025

== ENCOUNTER → 2024-01-11 | Outpatient (CLI) | payer MEDICARE, SELFPAY ==
[2024-01-11 07:28] LABS: Mucous, Urine 0 SEEN /hpf (<or=2+); Red Blood Cells-Urine 0 SEEN /hpf (0-5)
[2024-01-11 07:54] LABS: Color, Urine Yellow (Yellow); Glucose, Dipstick Normal (Normal); Ketone-Dipstick Negative (Negative); Leukocyte Esterase-Dipstick 100 /ul (Negative); Nitrite-Dipstick Negative (Negative); Occult Blood-Urine Negative /ul (Negative); Protein-Dipstick Negative (Negative); Urine Bilirubin Dipstick Negative (Negative); Urine Clarity Clear (Clear); Urine Urobilinogen Normal (Normal)
[2024-01-11 08:09] LABS: Bacteria RARE /hpf (None Seen); Squamous Epithelial Cells - UA 0-5 SEEN /hpf (5-10); White Blood Cells 0-5 SEEN /hpf (0-5)
== END | disposition home or self-care (01) ==
PROVIDERS: PCP Internal Medicine; Referring Provider Nurse Practitioner; Visit Provider Nurse Practitioner
DX: R19.5 Other fecal abnormalities (principal)
CPT/HCPCS: 81001; 82274

== ENCOUNTER → 2024-02-01 | Outpatient (CLI) | payer MEDICARE, SELFPAY ==
--- NOTE | 2024-02-01 07:33 | CT_ITS ---
EXAM: CT ABDOMEN AND PELVIS WITH INTRAVENOUS CONTRAST CLINICAL INDICATION: Abdominal pain. TECHNIQUE: Helically acquired images were obtained of the abdomen and pelvis with intravenous contrast. This CT exam was performed using one or more of the following dose reduction techniques: automated exposure control, adjustment of the mA and/or kV according to patient size, and/or use of iterative reconstruction technique. CONTRAST: Oral and amp; IV Gastrografin and amp; 100mL Isovue-300 RADIATION DOSE: CTDIvol = 16.60 mGy, DLP = 1107.13 mGy-cm COMPARISON: No relevant prior studies available. FINDINGS: LOWER THORAX: Small hiatal hernia. Lung bases are clear. No cardiomegaly. No significant pericardial effusion. ABDOMEN: LIVER: Unremarkable. Homogeneous. No focal mass. GALLBLADDER AND BILE DUCTS: Unremarkable. No calcified gallstones. No gallbladder distention or wall edema. No intra- or extrahepatic biliary ductal dilation. PANCREAS: Unremarkable. No focal cystic or solid mass. SPLEEN: Unremarkable. Normal size without focal cystic or solid mass. ADRENALS: Unremarkable. No nodules. KIDNEYS AND URETERS: Unremarkable. Normal renal size and position. No hydronephrosis. STOMACH AND BOWEL: Unremarkable. No stomach or bowel distention. Normal contrast-filled small bowel. Small diverticula with minimal intramural thickening in the sigmoid colon but no diverticulitis. Normal contrast-filled cecum, appendix, ascending colon and transverse colon and descending colon. Minimal contrast in the sigmoid colon. PELVIS: APPENDIX: Normal. BLADDER: Unremarkable. REPRODUCTIVE: Unremarkable as visualized. No mass. ABDOMEN and PELVIS: INTRAPERITONEAL SPACE: Unremarkable. No ascites or other fluid collection. No free air. BONES/JOINTS: Pronounced disc space height narrowing with degenerative vacuum phenomenon and endplate sclerosis at L2-L3, L3-L4 and L4-L5 disc space levels. Partial ankylosis of the L5 and S1 vertebral bodies. Bridging of anterior longitudinal ligament in the thoracic spine due to diffuse idiopathic skeletal hyperostosis. No lytic or blastic lesions. Right metallic hip arthroplasty causing extensive streak artifacts. SOFT TISSUES: Unremarkable. No discrete abdominal or pelvic wall hernia. VASCULATURE: Heavy calcified plaques obliterating the SMA origin and proximal SMA. Extensive calcified plaques in the remaining SMA. Heavy calcified plaques in the celiac artery. Heavy calcified plaques obliterating the origins of both renal arteries. Extensive and heavy calcified plaques along the abdominal aorta, iliac arteries down to the common femoral arteries, profunda femoris and the proximal SFAs. Abdominal aorta is non-dilated. LYMPH NODES: Unremarkable. No enlarged lymph nodes. TUBES, LINES AND DEVICES: Epidural wire catheter in the lower thoracic spine use for pain control. CT/Abdomen/Pelvis WITH Contrast IMPRESSION: 1. Heavy calcified plaques obliterating the origin of the SMA and heavy calcified plaques of the proximal SMA and smaller calcified plaques in the remainder of the SMA. 2. Heavy calcified plaques in the celiac artery. 3. Heavy calcified plaques obliterating the origins of both renal arteries. 4. Small diverticula along the sigmoid colon without diverticulitis. 5. No suspicious acute abnormality in the abdomen and pelvis. 6. Small hiatal hernia. Electronically Signed: Thomas Joe MD at 10:40 EDT ,
== END | disposition home or self-care (01) ==
LOC: CT 07:21
PROVIDERS: PCP Internal Medicine; Referring Provider Nurse Practitioner; Visit Provider Nurse Practitioner
DX: R10.9 Unspecified abdominal pain (principal)
CPT/HCPCS: 74177; Q9967

== ENCOUNTER → 2024-02-23 | Outpatient (CLI) | payer MEDICARE, SELFPAY ==
--- NOTE | 2024-02-23 08:45 | RDU_ITS ---
Reason For Study: Abdominal pain Right Renal Artery Left Renal Artery Right renal artery ostium 341/36.7 Left renal artery ostium 135.8/18.1 RSV/EDV. PSV/EDV. Right renal artery proximal Left renal artery proximal PSV/EDV 434.7/49.2 PSV/EDV. 93.5/16.7 . Right renal artery mid 116.2/14.1 Left renal artery mid 107/15.7 PSV/EDV. PSV/EDV . Right renal artery distal Left renal artery distal 101.5/10.2 127.9/14.1 PSV/EDV. PSV/EDV. Right RAR 4.65. Left RAR 1.45. Aorta Proximal abdominal aorta 2.00 x 2.05 cm . Proximal abdominal aorta peak systolic velocity is 305.5 cm/sec . Distal abdominal aorta 1.19 x 1.19 cm . Distal abdominal aorta peak systolic velocity is 93.5 cm/sec . Celiac artery, 445.5 cm/sec. Hepatic artery, 70.5 cm/sec. Splenci artery, 95.7 cm/sec. SMA origin, 284.9 cm/sec. SMA prox, 32.7 cm/sec. SMA mid, 49.9 cm/sec. SMA distal, 33.9 cm/sec. MIGDALIA origin, 218.2 cm/sec. MIGDALIA prox, 53.5 cm/sec. MIGDALIA mid, 40.2 cm/sec. VL/Renal Artery Duplex Ultrasound Interpretation Summary Right renal artery patent with > 60% stenosis. Left renal artery patent with normal velocities and no evidence of stenosis. 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 Superior mesenteric artery with no stenosis. Inferior mesenteric artery with no stenosis. Aorta normal caliber with elevated velocities proximal suggesting stenosis. Ordering Physician: Monse Lal Referring Physician: Marcelle Magaña Performed By: Christina Collins RVT
== END | disposition home or self-care (01) ==
LOC: CVS 08:41
PROVIDERS: PCP Internal Medicine; Referring Provider Nurse Practitioner; Visit Provider Nurse Practitioner
DX: K55.1 Chronic vascular disorders of intestine (principal); R10.9 Unspecified abdominal pain
CPT/HCPCS: 93975

== ENCOUNTER → 2024-02-24 | Outpatient (CLI) | payer MEDICARE, SELFPAY ==
--- NOTE | 2024-02-24 13:04 | CT_ITS ---
ACR Level 3 findings have been noted. An addendum which confirms receipt of the report will follow. EXAM: CT ANGIOGRAPHY ABDOMEN AND PELVIS WITH INTRAVENOUS CONTRAST CLINICAL INDICATION: SMA stenosis TECHNIQUE: Helically acquired angiography images were obtained of the abdomen and pelvis with intravenous contrast. This CT exam was performed using one or more of the following dose reduction techniques: automated exposure control, adjustment of the mA and/or kV according to patient size, and/or use of iterative reconstruction technique. MIP reconstructed images were created and reviewed. CONTRAST: 100mL Isovue 370 COMPARISON: CT abdomen and pelvis, 02/01/2024 FINDINGS: VASCULATURE: AORTA: Extensive atherosclerosis of the aorta. Mid abdominal aortic large intraluminal calcification resulting in moderate to severe mid abdominal aortic stenosis. No dissection. 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 Atherosclerosis of the celiac trunk and branches with at least moderate stenosis. Mild atheroma of the inferior mesenteric artery without significant stenosis. RENAL ARTERIES: Large amount of atheroma at the origin of the right renal artery with at least moderate to severe stenosis and mild atheroma at the origin of the left renal artery without significant stenosis. ILIAC ARTERIES: Atheroma of the bilateral iliac arteries without significant stenosis. OTHER ARTERIES: Extensive atheroma of the splenic artery without evidence of splenic artery aneurysm. LOWER THORAX: Coronary artery calcifications and/or stents. Mild cardiomegaly. No pericardial effusion. Small hiatal hernia. ABDOMEN: LIVER: No significant abnormality. Homogeneous. No focal mass. GALLBLADDER AND BILE DUCTS: No significant abnormality. No calcified gallstones. No gallbladder distention or wall edema. No intra- or extrahepatic biliary ductal dilation. PANCREAS: No significant abnormality. No focal cystic or solid mass. SPLEEN: No significant abnormality. Normal size without focal cystic or solid mass. ADRENALS: No significant abnormality. No nodules. KIDNEYS AND URETERS: No significant abnormality. Normal renal size and position. No hydronephrosis. STOMACH AND BOWEL: Colonic diverticulosis without discrete evidence of acute diverticulitis. No stomach or bowel distention. PELVIS: APPENDIX: No evidence of acute appendicitis. BLADDER: No significant abnormality. REPRODUCTIVE: Normal as visualized. No mass. ABDOMEN and PELVIS: INTRAPERITONEAL SPACE: No significant abnormality. No ascites or other fluid collection. No free air. BONES/JOINTS: Extensive degenerative changes of the axial and appendicular skeleton. Right hip arthroplasty. No suspicious lytic or blastic abnormality. SOFT TISSUES: Chronic fat necrosis in the subcutaneous adipose of the bilateral buttocks. No discrete abdominal or pelvic wall hernia. LYMPH NODES: No significant abnormality. No enlarged lymph nodes. TUBES, LINES AND DEVICES: Spinal cord stimulator. CT/CTA Abd/Pelvis W/WO Contrast IMPRESSION: 1. Extensive atherosclerosis of the aorta. Mid abdominal aortic large intraluminal calcification resulting in moderate to severe mid abdominal aortic stenosis. 2. Large amount of atheroma at the origin of the right renal artery with at least moderate to severe stenosis and mild atheroma at the origin of the left renal artery without significant stenosis. 3. 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 4. Coronary artery calcifications and/or stents. Mild cardiomegaly. No pericardial effusion. 5. Colonic diverticulosis without discrete evidence of acute diverticulitis. Electronically Signed: Dominick Sands DO at 14:42 EDT ,
[2024-02-24 15:18] LABS: CREATININE FINGERSTICK < 1.0 mg/dL (0.55-1.02); EGFR FINGERSTICK > 60.0000 mL/min (>60)
== END | disposition home or self-care (01) ==
LOC: CT 12:59
PROVIDERS: PCP Internal Medicine; Referring Provider Nurse Practitioner; Visit Provider Nurse Practitioner
DX: Z01.812 Encounter for preprocedural laboratory examination (principal); R10.9 Unspecified abdominal pain
CPT/HCPCS: 74174; Q9967

== ENCOUNTER 2024-02-29 13:23 | Emergency (ER) | payer MEDICARE, SELFPAY ==
[2024-02-29 13:25] VITALS: BP 137/86; PULSE 78; PULSE 84; RESP 16; RESP 18; TEMP 35.6; O2SAT 98; O2SAT 99; BMI 31.9
[2024-02-29] MEDS: Ondansetron 4 MG/2 ML Vial IV (13:50)
--- NOTE | 2024-02-29 14:07 | EX.ED.DYSGE1 ---
HPI History of Present Illness Chief Complaint: Foreign Body Informant: patient and EMS Narrative Narrative: 78-year-old female presenting to the emergency room stating she is choking on rice. Patient arriving by EMS. She states she had about 3 maybe 4 bites of plain white rice when she began to choke. She states that she feels like something is stuck in her throat. States over the past couple days she has had some difficulty with some pills. She states that she is not having a difficult time breathing. She states she starts to feel better for a few minutes and then she will begin to expectorate some saliva. [facility] Medical History Type 2 diabetes mellitus Vasovagal syncope Essential hypertension Bradycardia Hypothyroidism Hyperlipidemia Osteoarthritis Debility Wears glasses Wears dentures Thyroid disease Easy bruising Shortness of breath on exertion Leg cramps History of edema History of rheumatic fever Localized edema Bleeding tendency Injury of head and neck Chronic pain Gastroesophageal reflux disease Leukocytosis Diabetes mellitus Lumbar spinal stenosis Right lumbar radiculopathy Allergic rhinitis Vitamin B12 deficiency Restless leg syndrome Bilateral sacral insufficiency fracture with delayed healing History of colon polyps Asthma Chronic low back pain Home Medications ?Medication ?Instructions ?Recorded ?Last Taken ?Type fluticasone furoate 100 1 inh inhalation DAILY SOB 07/15/21 08/06/21 History mcg-vilanterol 25 mcg/dose inhalation powder (Breo Ellipta) albuterol sulfate 90 mcg/actuation 2 puff inhalation Q6H PRN sob 11/29/21 Unknown History aerosol inhaler cholecalciferol (vitamin D3) 25 25 mcg PO DAILY 11/29/21 Unknown History mcg (1,000 unit) tablet (Vitamin D3) hydrocodone-acetaminophen 5-325mg 1 tab PO BID PRN Pain 11/29/21 Unknown History 5mg-325mg mirtazapine 7.5 mg tablet 7.5 mg PO QHS 11/29/21 Unknown History triamcinolone acetonide 55 mcg 1 spray intranasal QHS 11/29/21 Unknown History nasal spray aerosol (Nasacort) zinc 50 mg tablet 50 mg PO DAILY 11/29/21 Unknown History acetaminophen 325 mg capsule 325 mg PO ONCE 01/10/23 Unknown History (Tylenol) ascorbic acid (vitamin C) 1,000 mg 1 g PO DAILY 01/10/23 Unknown History capsule loperamide 2 mg tablet 2 mg PO Q6H PRN nausea and vomiting 01/10/23 Unknown History guaifenesin 600 mg tablet, 600 mg PO BID PRN cough 06/15/23 Unknown History extended release 12 hr (Mucinex) ondansetron 4 mg disintegrating 4 mg PO Q8H PRN nausea and 06/16/23 Unknown Rx tablet vomiting #12 tabs mecobalamin (vitamin B12) 1,000 1,000 mcg PO DAILY #30 tabs 07/21/23 Unknown Rx mcg chewable tablet levothyroxine 200 mcg tablet 200 mcg PO DAILY #90 tabs 08/29/23 Unknown Rx rosuvastatin 5 mg tablet 5 mg PO QHS #90 tabs 08/29/23 Unknown Rx ammonium lactate 12 % lotion 1 applic topical BID #225 grams 10/03/23 Unknown Rx cetirizine 10 mg tablet 10 mg PO DAILY PRN Allergy 10/24/23 Unknown Rx Symptoms #30 tabs famotidine 40 mg tablet 40 mg PO DAILY #90 tabs 11/24/23 Unknown Rx ferrous sulfate 325 mg (65 mg 325 mg PO DAILY Supplement #90 tabs 11/24/23 Unknown Rx iron) tablet amlodipine 10 mg tablet See Rx Instructions .Route 11/25/23 Unknown Rx .COMPLEX #90 tabs olmesartan 20 mg tablet 20 mg PO QDAY 12/14/23 Unknown History ropinirole 1 mg tablet 0.5 mg PO DAILY 12/14/23 Unknown History meloxicam 15 mg tablet 15 mg PO DAILY #90 tabs 12/20/23 Unknown Rx aspirin 81 mg chewable tablet 81 mg PO DAILY #30 tabs 12/22/23 Unknown Rx sennosides 8.6 mg capsule (senna) 8.6 mg PO DAILY PRN constipation 01/02/24 Unknown Rx #30 caps dicyclomine 10 mg capsule 10 mg PO BID PRN abdominal pain 01/10/24 Unknown Rx #30 caps hydrocodone 7.5 mg-acetaminophen 1 tab PO DAILY 01/23/24 Unknown History 325 mg tablet gabapentin 300 mg capsule 300 mg PO QHS #30 caps 02/01/24 Unknown Rx pantoprazole 20 mg tablet,delayed 20 mg PO DAILY #60 tabs 02/21/24 Unknown Rx release Allergy/AdvReac Type Severity Reaction Status Date / Time clindamycin Allergy Mild rash Verified 01/23/24 13:58 codeine phosphate (From AdvReac Severe Nausea Verified 01/23/24 13:58 Tylenol-Codeine #3) Family History Mother Heart valve disorder Hypertension Heart disease Father Pneumococcal pneumonia CVA (cerebral vascular accident) Heart disease Myocardial infarction CABG Daughter Diabetes Grandmother Diabetes Surgical History Status post reverse total arthroplasty of left shoulder Hx of lumbar discectomy Hx of decompressive lumbar laminectomy History of cardiac catheterization Hx of total hip arthroplasty History of colonoscopy (2012) history of pain stimulator History of bilateral carpal tunnel release History of loop recorder (2012) History of appendectomy History of hysterectomy Hx of tonsillectomy Social History household members: none housing: apartment number of children: 2 current occupational status: retired current occupation: worked at [employer] current occupational exposures/hazards: No pets and animals: No leisure activities: exercise and volunteer work Smoking Status: Never smoker Electronic Cigarette Use: not used alcohol intake: never substance use type: does not use what type of physical activity do you participate in: walking frequency: 3-4 times per week do you feel safe at home: Yes additional social history: daughter lives nearby [facility] ED Constitutional Constitutional ED: Denies chills, fever(s) or weight loss Eyes Eyes: Denies change in vision or diplopia ENT ENT ED: Denies ear pain, rhinorrhea or sore throat Cardiovascular Cardiovascular: Denies chest pain, orthopnea, palpitations or racing heartbeat Respiratory/Chest Respiratory/Chest: Denies cough, dyspnea or orthopnea Gastrointestinal Gastrointestinal: Reports vomiting; Denies abdominal pain, diarrhea or nausea Genitourinary Genitourinary ED: Denies dysuria, hematuria or urinary frequency Musculoskeletal Musculoskeletal: Denies arthralgias or myalgias Integumentary Denies abscess or rash Neurologic Neurologic: Denies headache(s) or weakness Psychiatric Psychiatric: Denies anxiety, depression, suicidal ideation or suicidal thoughts Endocrine Endocrinology: Denies polydipsia, polyphagia or polyuria Allergic/Immunologic Allergic/Immunologic ED: Denies mouth swelling, tongue swelling or urticaria EXAM Physical Exam Narrative Exam Narrative: Patient is sitting in the bed holding an emesis bag. She intermittently brings up some thick saliva. Const Vital Signs: 02/29/24 13:25 02/29/24 13:25 02/29/24 14:31 Temperature 96.1 F L 96.1 F L 97 F L Temperature Source Temporal Temporal Pulse Rate 78 84 79 Respiratory Rate 16 18 16 Blood Pressure 137/86 H 137/86 H 150/48 H Blood Pressure Mean 103 103 82 Pulse Ox 99 98 99 Oxygen Delivery Method Room Air Room Air Positive well nourished and well developed General Appearance ED: well developed HEENT Reports normocephalic, head/scalp atraumatic and moist mucous membranes Eyes PERRL and EOMs intact bilaterally Neck no lymphadenopathy, supple and no JVD Resp normal respiratory effort and clear to auscultation bilaterally Cardio regular rate, regular rhythm and no murmurs GI normal to inspection, nondistended, normoactive bowel sounds and non-tender Palpation: soft Back/Spine no CVA tenderness and normal ROM Extremity normal to inspection General Extremety ED: Negative for edema General Extremity: Negative for edema Neuro oriented x3 and CN's II-XII intact bilaterally Sensorium / Orientation: alert Motor Exam: strength 5/5 throughout Psych mental status grossly normal Mood & Affect: Negative for depressed or tearful Skin no rashes or lesions noted and no wounds MDM MDM MDM Narrative Medical decision making narrative: Differential diagnosis includes but not limited to esophageal food impaction esophageal stricture or Schatzki's ring GERD larynx swelling irritation foreign body Patient received a dose of Zofran and then was allowed to sip on Coke. She states that she felt the Coke working and her symptoms abruptly resolved. She states she had some discomfort in her chest as it went down but is now feeling well. When I recommend that she follow-up with either gastroenterology or surgery for EGD. Patient notes understanding the plan is comfortable with it. History & Record Review Discussion w/independent historian: Patient Discharge Plan Triage Chief Complaint: Foreign Body ED Provider: Aashish Haynes Dx/Rx/DC Orders Clinical Impression: Food impaction of esophagus Instructions: ED Esophageal Foreign Body, Resolved Prescriptions: No Action ascorbic acid (vitamin C) 1,000 mg capsule 1 g PO DAILY loperamide 2 mg tablet 2 mg PO Q6H PRN (Reason: nausea and vomiting) acetaminophen [Tylenol] 325 mg capsule 325 mg PO ONCE mecobalamin (vitamin B12) 1,000 mcg tablet,chewable 1,000 mcg PO DAILY Qty: 30 2RF guaifenesin [Mucinex] 600 mg tablet extended release 12hr 600 mg PO BID PRN (Reason: cough) ammonium lactate 12 % lotion 1 applic topical BID Qty: 225 0RF olmesartan 20 mg tablet 20 mg PO QDAY hydrocodone-acetaminophen 7.5-325 mg tablet 1 tab PO DAILY Patient Comments: taking routinely at bedtime for sleep dicyclomine 10 mg capsule 10 mg PO BID PRN (Reason: abdominal pain) Qty: 30 0RF fluticasone furoate-vilanterol [Breo Ellipta] 100-25 mcg/dose Blister With Device 1 inh INHALATION DAILY hydrocodone-acetaminophen 5-325 mg tablet 1 tab PO BID PRN (Reason: Pain) Patient Comments: TAKE 1 TABLET BY MOUTH TWICE DAILY NEEDED FOR 28 DAYS triamcinolone acetonide [Nasacort] 55 mcg Aerosol,Melstone 1 spray INTRANASAL QHS zinc 50 mg Tablet 50 mg PO DAILY albuterol sulfate 90 mcg/actuation HFA aerosol inhaler 2 puff INHALATION Q6H PRN (Reason: sob) Patient Comments: Inhale 2 puff as directed every six hours as needed mirtazapine 7.5 mg tablet 7.5 mg PO QHS cholecalciferol (vitamin D3) [Vitamin D3] 25 mcg (1,000 unit) Tablet 25 mcg PO DAILY ropinirole 1 mg tablet 0.5 mg PO DAILY ondansetron 4 mg tablet,disintegrating 4 mg PO Q8H PRN (Reason: nausea and vomiting) Qty: 12 0RF levothyroxine 200 mcg tablet 200 mcg PO DAILY Qty: 90 1RF rosuvastatin 5 mg tablet 5 mg PO QHS Qty: 90 1RF cetirizine 10 mg tablet 10 mg PO DAILY PRN (Reason: Allergy Symptoms) Qty: 30 3RF ferrous sulfate 325 mg (65 mg iron) tablet 325 mg PO DAILY Qty: 90 0RF famotidine 40 mg tablet 40 mg PO DAILY Qty: 90 0RF amlodipine 10 mg tablet See Rx Instructions .ROUTE .COMPLEX Qty: 90 1RF Dose Instruction: TAKE 1 TABLET BY MOUTH EVERY DAY AT BEDTIME Rx Instructions: TAKE 1 TABLET BY MOUTH EVERY DAY AT BEDTIME meloxicam 15 mg tablet 15 mg PO DAILY Qty: 90 1RF aspirin 81 mg tablet,chewable 81 mg PO DAILY Qty: 30 0RF senna 8.6 mg capsule 8.6 mg PO DAILY PRN (Reason: constipation) Qty: 30 0RF gabapentin 300 mg capsule 300 mg PO QHS Qty: 30 2RF pantoprazole 20 mg tablet,delayed release (DR/EC) 20 mg PO DAILY Qty: 60 0RF Primary Care Provider: Marcelle Magaña Referrals: Marcelle Magaña MD [Primary Care Provider] - Ang Conner MD [Med Staff - Active Staff] - As soon as possible (For surgery evaluation. They can also perform EGD) Friend,DO Rodrigo [Med Staff - Active Staff] - As soon as possible (For gastroenterology evaluation. You will most likely need an EGD) Print Language: Djib[place]ian Disposition Disposition: Home, Self Care
[2024-02-29 14:31] VITALS: BP 150/48; PULSE 79; RESP 16; TEMP 36.1; O2SAT 99
== END 2024-02-29 14:49 | disposition home or self-care (01) ==
PROVIDERS: Emergency Provider Emergency Medicine; PCP Internal Medicine; Visit Provider Emergency Medicine
DX: T18.108A Unspecified foreign body in esophagus causing other injury, initial encounter (principal); E11.9 Type 2 diabetes mellitus without complications; I10 Essential (primary) hypertension; E78.5 Hyperlipidemia, unspecified; E03.9 Hypothyroidism, unspecified; W44.F3XA Food entering into or through a natural orifice, initial encounter
CPT/HCPCS: 99283; A4216; J2405

== ENCOUNTER 2024-03-07 06:10 | Day surgery (SDC) | payer MEDICARE, SELFPAY ==
[2024-03-07] VITALS (8 sets, daily range): BP systolic 99–113; BP diastolic 48–88; PULSE 67–71; RESP 16–18; TEMP 36.3–36.8; O2SAT 92–95; BMI 30.2
[2024-03-07] MEDS: Lactated Ringers 1,000 ML 15 ML IV (06:51)
--- NOTE | 2024-03-07 07:22 | PCM.PRE.AN2 ---
ASA Classification* ASA Classification ASA Classification: 3 Assessment & Plan Anesthesia* Anesthesia Assessment Anesthesia Assessment: Discussed sedation and/or anesthesia options, risks, benefits, and alternatives with patient/parents/legal guardian/POA. Questions invited. The patient/parents/legal guardian/POA seems to understand and agrees to proceed with anesthesia plan. Reviewed the physical assessment, medical history, allergy history and patient home medications list prior to surgery/procedure/anesthetic and documented any changes. Performed airway and anesthesia risk assessments. Anesthesia Type Anesthesia Type: MAC Anesthesia Focused Assessment* Temperature: 98.2 F Pulse Rate: 68 Blood Pressure: 113/53 Respiratory Rate: 16 Pulse Ox: 94 Airway Assessment Mouth opens: >3 cm Mallampati Score: II Focused Labs Anesthesia Preop lab: CBC WBC 11.1 K/mm3 (4.4-11.0) H 01/10/24 13:24 RBC 3.20 M/mm3 (4.2-5.4) L 01/10/24 13:24 Hgb 10.6 g/dL (12.0-15.0) L 01/10/24 13:24 Hct 34.1 % (37-47) L 01/10/24 13:24 Plt Count 229 K/mm3 (150-450) 01/10/24 13:24 CHEMISTRY Potassium 5.2 mmol/L (3.5-5.1) H 01/10/24 13:24 Sodium 140 mmol/L (136-145) 01/10/24 13:24 Magnesium 1.7 mg/dL (1.6-2.6) 11/30/21 05:49 BUN 15 mg/dL (7-18) 01/10/24 13:24 Creatinine 0.98 mg/dL (0.55-1.02) 01/10/24 13:24 Glucose 111 mg/dL (74-106) H 01/10/24 13:24 POC Glucose 250 mg/dL (74-106) H 12/01/21 11:39 TSH 0.56 uIU/mL (0.358-3.74) 10/03/23 10:08 COAG PT 13.1 SECONDS (11.7-14.9) 07/20/21 10:16 Pre-Assessment Diagnosis/Proposed Procedure Planned Operative Procedure(s): COLONOSCOPY/EGD Anesthesia History Anesthesia History - head machine feeder: Anesthesia History - head machine feeder Hx Hospitalization No 03/02/24 10:42 Any Problems With Anesthesia Yes: N,V 03/02/24 10:42 Cholinesterase deficiency No 03/02/24 10:42 You/Your Family Experience No 03/02/24 10:42 fever (hyperthermia) with Relationship Recent Exposure to Contagious No 03/07/24 06:42 Disease Does patient have nerve No 03/02/24 10:42 stimulator Patient instructed to have device shut off --Does patient have Pacemaker No 03/07/24 06:42 or ICD? When Was Last Pacemaker Check QUESTION #4 FULL TEXT: You/Your Family Experience fever (hyperthermia) with Anesthesia Last Oral Intake Last Oral intake: Last Oral Intake NPO since 22:00 03/07/24 06:42 Meds taken in AM with sips of No 03/07/24 06:42 water? Meds patient instructed to take am of surgery PONV PONV - head machine feeder: PONV - head machine feeder Female Yes 03/02/24 10:42 HX of Motion Sickness No 03/02/24 10:42 HX of N/V After Surgery No 03/02/24 10:42 Non-Smoker Yes 03/02/24 10:42 Duration of Surgery greater No 03/02/24 10:42 than 60 minutes Number of Risk Factors 2 03/02/24 10:42 PONV Score Moderate Risk 03/02/24 10:42 Height & Weight Height & Weight: Anesthesia: Height & Weight Height 5 ft 2 in 03/07/24 06:42 Weight: 75 kg 03/07/24 06:42 Body Mass Index (BMI) 30.2 03/07/24 06:42 Respiratory Assessment Respiratory Assessment - head machine feeder: Respiratory Tract Infection Hx - head machine feeder Hx Respiratory Tract Infection No 03/02/24 10:42 STOP Sleep Apnea STOP Sleep Apnea - head machine feeder: STOP Sleep Apnea - head machine feeder Hx Hypertension Yes: CONTROLLED ON MED 03/02/24 10:42 Hx Sleep Apnea No 03/02/24 10:42 CPAP No 03/02/24 10:42 BIPAP Do you snore loudly (louder Yes 03/02/24 10:42 than talking or can be heard Do you often feel tired/ No 03/02/24 10:42 fatigued/ sleepy during daytime? Has anyone observed you stop No 03/02/24 10:42 breathing during sleep? STOP Results Positive 03/02/24 10:42 QUESTION #5 FULL TEXT : Do you snore loudly (louder than talking or can be heard through closed doors)? 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 Specify any problems Hx of Preganancy in last 3 No 03/02/24 10:42 Months Nurse Filling Out Transfusion VCHRISTIN 03/02/24 10:42 & Questions: Date: 03/02/24 03/02/24 10:42 Time: 10:43 03/02/24 10:42 Patient unable to answer at this time (ie. confused, unrespo /Reproduction History /Reproductive History - head machine feeder: /Reproductive Hx- head machine feeder Hx Now No 03/02/24 10:42 Gestational Age (in weeks): EDC: Hx Hx Para Hx Section SAB No 03/02/24 10:42 Active Medications Active Medications: Current Medications Generic Name Dose Route Start Last Admin Trade Name Freq PRN Reason Stop Dose Admin Lactated Ringer's 1,000 mls @ 15 mls/hr 03/07/24 06:30 03/07/24 06:51 IV 15 mls/hr .Q48H DICK Administration PFSH Medical History Post-menopausal History of steroid therapy Arthritis Excessive bleeding Back pain Difficulty swallowing History of diverticulitis Gastric reflux History of echocardiogram Cardiology follow-up encounter Type 2 diabetes mellitus Vasovagal syncope Essential hypertension Bradycardia Hypothyroidism Hyperlipidemia Osteoarthritis Debility Wears glasses Wears dentures Thyroid disease Easy bruising Shortness of breath on exertion Leg cramps History of edema History of rheumatic fever Localized edema Bleeding tendency Injury of head and neck Chronic pain Gastroesophageal reflux disease Leukocytosis Diabetes mellitus Lumbar spinal stenosis Right lumbar radiculopathy Allergic rhinitis Vitamin B12 deficiency Restless leg syndrome Bilateral sacral insufficiency fracture with delayed healing History of colon polyps Asthma Chronic low back pain Home Medications ?Medication ?Instructions ?Recorded ?Last Taken ?Type albuterol sulfate 90 mcg/actuation 2 puff inhalation Q6H PRN sob 11/29/21 03/07/24 History aerosol inhaler cholecalciferol (vitamin D3) 25 25 mcg PO DAILY 11/29/21 03/02/24 History mcg (1,000 unit) tablet (Vitamin D3) hydrocodone-acetaminophen 5-325mg 1 tab PO BID PRN Pain 11/29/21 Unknown History 5mg-325mg mirtazapine 7.5 mg tablet 7.5 mg PO QHS 11/29/21 03/06/24 History triamcinolone acetonide 55 mcg 1 spray intranasal QHS 11/29/21 03/06/24 History nasal spray aerosol (Nasacort) zinc 50 mg tablet 50 mg PO DAILY 11/29/21 03/02/24 History acetaminophen 325 mg capsule 325 mg PO ONCE 01/10/23 Unknown History (Tylenol) ascorbic acid (vitamin C) 1,000 mg 1 g PO DAILY 01/10/23 03/02/24 History capsule loperamide 2 mg tablet 2 mg PO Q6H PRN nausea and vomiting 01/10/23 Unknown History guaifenesin 600 mg tablet, 600 mg PO BID PRN cough 06/15/23 Unknown History extended release 12 hr (Mucinex) ondansetron 4 mg disintegrating 4 mg PO Q8H PRN nausea and 06/16/23 Unknown Rx tablet vomiting #12 tabs mecobalamin (vitamin B12) 1,000 1,000 mcg PO DAILY #30 tabs 07/21/23 03/02/24 Rx mcg chewable tablet levothyroxine 200 mcg tablet 200 mcg PO DAILY #90 tabs 08/29/23 03/07/24 Rx rosuvastatin 5 mg tablet 5 mg PO QHS #90 tabs 08/29/23 03/06/24 Rx ammonium lactate 12 % lotion 1 applic topical BID #225 grams 10/03/23 Unknown Rx cetirizine 10 mg tablet 10 mg PO DAILY PRN Allergy 10/24/23 Unknown Rx Symptoms #30 tabs famotidine 40 mg tablet 40 mg PO DAILY #90 tabs 11/24/23 03/06/24 Rx ferrous sulfate 325 mg (65 mg 325 mg PO DAILY Supplement #90 tabs 11/24/23 03/02/24 Rx iron) tablet amlodipine 10 mg tablet See Rx Instructions .Route 11/25/23 03/06/24 Rx .COMPLEX #90 tabs olmesartan 20 mg tablet 20 mg PO QDAY 12/14/23 03/05/24 History ropinirole 1 mg tablet 0.5 mg PO DAILY 12/14/23 03/06/24 History meloxicam 15 mg tablet 15 mg PO DAILY #90 tabs 12/20/23 03/06/24 Rx aspirin 81 mg chewable tablet 81 mg PO DAILY #30 tabs 12/22/23 03/06/24 Rx sennosides 8.6 mg capsule (senna) 8.6 mg PO DAILY PRN constipation 01/02/24 Unknown Rx #30 caps dicyclomine 10 mg capsule 10 mg PO BID PRN abdominal pain 01/10/24 Unknown Rx #30 caps hydrocodone 7.5 mg-acetaminophen 1 tab PO DAILY 01/23/24 03/06/24 History 325 mg tablet gabapentin 300 mg capsule 300 mg PO QHS #30 caps 02/01/24 03/06/24 Rx pantoprazole 20 mg tablet,delayed 20 mg PO DAILY #60 tabs 02/21/24 03/06/24 Rx release fluticasone 500 mcg-salmeterol 50 1 ea inhalation BID 03/02/24 03/06/24 History mcg/dose blistr powdr for inhalation (Wixela Inhub) Allergy/AdvReac Type Severity Reaction Status Date / Time clindamycin Allergy Mild rash Verified 03/02/24 10:28 codeine phosphate (From AdvReac Severe Nausea Verified 03/02/24 10:28 Tylenol-Codeine #3) Family History Mother Heart valve disorder Hypertension Heart disease Father Pneumococcal pneumonia CVA (cerebral vascular accident) Heart disease Myocardial infarction CABG Daughter Diabetes Grandmother Diabetes Surgical History History of total shoulder replacement Status post reverse total arthroplasty of left shoulder Hx of lumbar discectomy Hx of decompressive lumbar laminectomy History of cardiac catheterization Hx of total hip arthroplasty History of colonoscopy (2012) history of pain stimulator History of bilateral carpal tunnel release History of loop recorder (2012) History of appendectomy History of hysterectomy Hx of tonsillectomy Social History household members: none housing: apartment number of children: 2 current occupational status: retired current occupation: worked at [employer] current occupational exposures/hazards: No pets and animals: No leisure activities: exercise and volunteer work Smoking Status: Never smoker Electronic Cigarette Use: not used alcohol intake: never substance use type: does not use what type of physical activity do you participate in: walking frequency: 3-4 times per week do you feel safe at home: Yes additional social history: daughter lives nearby Review of Systems (Anesthesia) ROS Narrative System reviewed and no additional complaints, except as documented.
--- NOTE | 2024-03-07 07:30 | IMM_PTH ---
PATIENT: JERRELL BAUMAN LOC: EN U#:[id number] AGE/SX: 78/F ROOM: RE03/07/[address]: Dr. Gretel Tavarez MD : 1945 BED: DIS: 03/07/2024 SPEC #: [id number] RECD: 03/07/24 12:28 STATUS: GIOVANNI REQ #: [id number] ANTHONY: 03/07/24 07:[address]: Gretel Tavarez DEPT: IMMUNOHISTOCHEMISTRY RECD BY: Robby Medrano ENTERED: 03/07/24 12:29 SP TYPE: IMMUNO OTHR DR: Dr. Marcelle Magaña MD Tissues: A - Gastric mucous membrane Procedures: H Pylori (initial) PHYSICIAN & INSTITUTION [place] [address] SPECIMEN INFORMATION: Tissue Source: A- Antrum biopsy Clinical Info: Fecal occult blood test positive, anemia Specimen Number: [id number] CPT code: 79186 METHODOLOGY: Deparaffinized sections of prefer/formalin-fixed tissue or PAP/DQ stained slides are incubated with monoclonal/polyclonal antibodies/oligonucleotide probes. Localization is made via biotin free immunoperoxidase method. Appropriate controls are performed and reacted as expected. Results on target cell population are indicated in the following table: RESULTS: ANTIBODY / CLONE RESULT Block A H Pylori (polyclonal) negative These tests were developed and their performance characteristics determined by [facility]. They may not have been cleared or approved by the [place]. Food and Drug Administration. The FDA has determined that such clearance or approval is not necessary. The above immunohistochemical/dualISH markers are ordered and reviewed by the Pathologist. INTERPRETATION: A. Antrum, biopsy: Negative for Helicobacter pylori organisms. 03/08/2024
--- NOTE | 2024-03-07 07:30 | EGD_PTH ---
PATIENT: JERRELL BAUMAN LOC: EN U#:[id number] AGE/SX: 78/F ROOM: RE03/07/[address]: Dr. Gretel Tavarez MD : 1945 BED: DIS: 03/07/2024 SPEC #: [id number] RECD: 03/07/24 10:21 STATUS: GIOVANNI BAILEY #: [id number] ANTHONY: 03/07/24 07:[address]: Gretel Tavarez DEPT: SURGICAL PATHOLOGY RECD BY: Neha Reeves ENTERED: 03/07/24 12:07 SP TYPE: EGD BIOPSY OTHR DR: Dr. Marcelle Magaña MD Tissues: A - Gastric mucous membrane B - Esophagus, NOS C - Esophagus, NOS D - Transverse colon E - Descending colon Procedures: Special Stain Group I Surgery Specimen Level IV GMS Stain (control) Alcian Blue/PAS (control) HEADER OPERATION: Colonoscopy, EGD- biopsy and colon polypectomy PRE-OP DIAGNOSIS: Fecal occult blood test positive, anemia TISSUE SUBMITTED: A- Antrum biopsy, B- Gastroesophageal junction biopsy,C- Distal esophagus biopsy, D- Transverse colon polyp x2, E- Descending colon polyp MICROSCOPIC DIAGNOSIS A. Antrum, biopsy: Mild gastritis. See microscopic description and comment. B. Gastroesophageal junction, biopsy: A fragment of gastro mucosa with chronic inflammation. Intestinal metaplasia (goblet cell metaplasia) not identified. See comment. C. Distal esophagus, biopsy: Fragments of squamous epithelium with acute and chronic inflammation and changes consistent with gastroesophageal reflux disease. See comment. D. Transverse colon polyp x2, polypectomy: Fragments of colonic mucosa with minimal hyperplastic polyp changes. E. Descending colon polyp, polypectomy: Hyperplastic polyp. 03/08/2024 COMMENT A. The results of immunohistochemistry for Helicobacter pylori will be reported separately ([id number]). B. Alcian blue/PAS stain with matched control is used in the evaluation of the specimen. C. Special stain for fungi is negative for organisms; matched control is appropriate. MICROSCOPIC DESCRIPTION Slides are reviewed. A. The specimen shows fragments of gastric mucosa with chronic inflammatory cell infiltrates in the lamina propria consisting of lymphocytes and plasma cells, consistent with mild chronic gastritis. GROSS DESCRIPTION A. Received in fixative is one container labeled with the patient's name and designated Antrum biopsy. The specimen consists of one irregular fragment of light gandhi soft tissue that measures 0.3 x 0.3 x 0.1 cm. The specimen is totally submitted in one cassette. B. Received in fixative is one container labeled with the patient's name and designated GE junction biopsy. The specimen consists of one irregular fragment of light gandhi soft tissue that measures 0.5 x 0.5 x 0.1 cm. The specimen is totally submitted in one cassette. C. Received in fixative is one container labeled with the patient's name and designated Distal esophagus biopsy. The specimen consists of multiple irregular fragments of light gandhi soft tissue that in aggregate measure 0.6 x 0.2 x 0.1 cm. The specimen is totally submitted in one cassette. D. Received in fixative is one container labeled with the patient's name and designated Transverse colon polyp x2. The specimen consists of two irregular fragments of light gandhi soft tissue that in aggregate measure 0.6 x 0.3 x 0.1 cm. The specimen is totally submitted in one cassette. E. Received in fixative is one container labeled with the patient's name and designated Descending colon polyp. The specimen consists of a gandhi-pink polyp measuring 0.7 x 0.5 x 0.2cm. The entire specimen is submitted in one cassette. SJ.mr 03/07/2024 TC:1 CPT:03106o5,[id number]
--- NOTE | 2024-03-07 07:47 | HP.PCM_ITS ---
HPI - General General Date of Service: 03/07/24 HPI Narrative JERRELL BAUMAN, is a 78 F who presents for an EGD and colonoscopy due to fecal occult blood positive test and anemia. Patient also recently was seen in the ER 02/28 for food impaction of the esophagus which was able to pass after drinking Coke. Most recent hemoglobin is 10.6 on 01/09. office visit 01/19/24 [facility] HPI: 78-year-old female presents for EGD and colonoscopy due to anemia and positive fecal occult blood Test. Patient states she thinks her last colonoscopy was about 10 years ago in [place] and she did have some polyps at that time but due to age was told she did not need anymore. Patient's states she has been taking Pepto-Bismol as well as iron that she has been having some black stools otherwise denies any bright red stools. Patient is on Pepcid 40 mg p.o. daily for reflux which patient states controls her symptoms. Patient has bowel movements daily does take a stool softener daily. Patient denies any family history of colon cancer. Patient also states occasionally she has pain in her mid abdomen currently denies any pain. Patient's PCP did order a CAT scan for evaluation patient has not got it set up yet as she does not have voicemail on her phone we will try to help arrange during appointment today for contact to get that scheduled. [facility] Medical History Post-menopausal History of steroid therapy Arthritis Excessive bleeding Back pain Difficulty swallowing History of diverticulitis Gastric reflux History of echocardiogram Cardiology follow-up encounter Type 2 diabetes mellitus Vasovagal syncope Essential hypertension Bradycardia Hypothyroidism Hyperlipidemia Osteoarthritis Debility Wears glasses Wears dentures Thyroid disease Easy bruising Shortness of breath on exertion Leg cramps History of edema History of rheumatic fever Localized edema Bleeding tendency Injury of head and neck Chronic pain Gastroesophageal reflux disease Leukocytosis Diabetes mellitus Lumbar spinal stenosis Right lumbar radiculopathy Allergic rhinitis Vitamin B12 deficiency Restless leg syndrome Bilateral sacral insufficiency fracture with delayed healing History of colon polyps Asthma Chronic low back pain Home Medications ?Medication ?Instructions ?Recorded ?Last Taken ?Type albuterol sulfate 90 mcg/actuation 2 puff inhalation Q6H PRN sob 11/29/21 03/07/24 History aerosol inhaler cholecalciferol (vitamin D3) 25 25 mcg PO DAILY 11/29/21 03/02/24 History mcg (1,000 unit) tablet (Vitamin D3) hydrocodone-acetaminophen 5-325mg 1 tab PO BID PRN Pain 11/29/21 Unknown History 5mg-325mg mirtazapine 7.5 mg tablet 7.5 mg PO QHS 11/29/21 03/06/24 History triamcinolone acetonide 55 mcg 1 spray intranasal QHS 11/29/21 03/06/24 History nasal spray aerosol (Nasacort) zinc 50 mg tablet 50 mg PO DAILY 11/29/21 03/02/24 History acetaminophen 325 mg capsule 325 mg PO ONCE 01/10/23 Unknown History (Tylenol) ascorbic acid (vitamin C) 1,000 mg 1 g PO DAILY 01/10/23 03/02/24 History capsule loperamide 2 mg tablet 2 mg PO Q6H PRN nausea and vomiting 01/10/23 Unknown History guaifenesin 600 mg tablet, 600 mg PO BID PRN cough 06/15/23 Unknown History extended release 12 hr (Mucinex) ondansetron 4 mg disintegrating 4 mg PO Q8H PRN nausea and 06/16/23 Unknown Rx tablet vomiting #12 tabs mecobalamin (vitamin B12) 1,000 1,000 mcg PO DAILY #30 tabs 07/21/23 03/02/24 Rx mcg chewable tablet levothyroxine 200 mcg tablet 200 mcg PO DAILY #90 tabs 08/29/23 03/07/24 Rx rosuvastatin 5 mg tablet 5 mg PO QHS #90 tabs 08/29/23 03/06/24 Rx ammonium lactate 12 % lotion 1 applic topical BID #225 grams 10/03/23 Unknown Rx cetirizine 10 mg tablet 10 mg PO DAILY PRN Allergy 10/24/23 Unknown Rx Symptoms #30 tabs famotidine 40 mg tablet 40 mg PO DAILY #90 tabs 11/24/23 03/06/24 Rx ferrous sulfate 325 mg (65 mg 325 mg PO DAILY Supplement #90 tabs 11/24/23 03/02/24 Rx iron) tablet amlodipine 10 mg tablet See Rx Instructions .Route 11/25/23 03/06/24 Rx .COMPLEX #90 tabs olmesartan 20 mg tablet 20 mg PO QDAY 12/14/23 03/05/24 History ropinirole 1 mg tablet 0.5 mg PO DAILY 12/14/23 03/06/24 History meloxicam 15 mg tablet 15 mg PO DAILY #90 tabs 12/20/23 03/06/24 Rx aspirin 81 mg chewable tablet 81 mg PO DAILY #30 tabs 12/22/23 03/06/24 Rx sennosides 8.6 mg capsule (senna) 8.6 mg PO DAILY PRN constipation 01/02/24 Unknown Rx #30 caps dicyclomine 10 mg capsule 10 mg PO BID PRN abdominal pain 01/10/24 Unknown Rx #30 caps hydrocodone 7.5 mg-acetaminophen 1 tab PO DAILY 01/23/24 03/06/24 History 325 mg tablet gabapentin 300 mg capsule 300 mg PO QHS #30 caps 02/01/24 03/06/24 Rx pantoprazole 20 mg tablet,delayed 20 mg PO DAILY #60 tabs 02/21/24 03/06/24 Rx release fluticasone 500 mcg-salmeterol 50 1 ea inhalation BID 03/02/24 03/06/24 History mcg/dose blistr powdr for inhalation (Wixela Inhub) Allergy/AdvReac Type Severity Reaction Status Date / Time clindamycin Allergy Mild rash Verified 03/02/24 10:28 codeine phosphate (From AdvReac Severe Nausea Verified 03/02/24 10:28 Tylenol-Codeine #3) Family History Mother Heart valve disorder Hypertension Heart disease Father Pneumococcal pneumonia CVA (cerebral vascular accident) Heart disease Myocardial infarction CABG Daughter Diabetes Grandmother Diabetes Surgical History History of total shoulder replacement Status post reverse total arthroplasty of left shoulder Hx of lumbar discectomy Hx of decompressive lumbar laminectomy History of cardiac catheterization Hx of total hip arthroplasty History of colonoscopy (2012) history of pain stimulator History of bilateral carpal tunnel release History of loop recorder (2012) History of appendectomy History of hysterectomy Hx of tonsillectomy Social History household members: none housing: apartment number of children: 2 current occupational status: retired current occupation: worked at [employer] current occupational exposures/hazards: No pets and animals: No leisure activities: exercise and volunteer work Smoking Status: Never smoker Electronic Cigarette Use: not used alcohol intake: never substance use type: does not use what type of physical activity do you participate in: walking frequency: 3-4 times per week do you feel safe at home: Yes additional social history: daughter lives nearby Past Medical/Surgical History Planned Operation Planned Operative Procedure(s): COLONOSCOPY/EGD S.O.S: No Previous Hospitalizations/Surgeries HX Hospitalizations: No HX of Surgeries: appendectomy, hysterectomy, tonsillectomy, carpal tunnel, loop recorder Any Problems With Anesthesia: Yes (N,V) You/Your Family Experience Fever (Hyperthermia) With Anes: No Cholinesterase deficiency: No Cardiovascular Hx Chest Pain within Last 2 months: No Hx of Irregular Heartbeat and/or Afib: No Hx Heart Attack: No Hx Congestive Heart Failure: No Hx Rheumatic Fever: Yes ( CHILD) Hx Hypertension: Yes (CONTROLLED ON MED) Hx Internal Defibrillator: No Hx Pacemaker: No Hx Cardiac Catheterization: Yes Hx Cardiac Surgery/Stents/Etc.: No (loop recorder/ states not working) Hx Stress Test: No (ECHO 06/2019) Hx Pain in Legs when Walking/Leg Cramps: Yes (occas leg pain) Respiratory Chronic Cough: No HX of Shortness of Breath: Yes (unable to walk up stairs/ denies shortness of breath) Hoarseness: Yes (allergies/takes shots) Hx Chronic Obstructive Pulmonary Disease (COPD): No Hx Asthma: Yes (inhaler) Hx Emphysema: No Hx Sleep Apnea: No CPAP: No Hx Respiratory Tract Infection/Cold (presently): No Do You Snore Loudly (louder than talking or can be heard): Yes Do You Often Feel Tired/ Fatigued/ Sleepy Dring Daytime?: No Has Anyone Observed You Stop Breathing During Sleep?: No Result (for STOP score): Positive Hx Smoking: No Smoking Status: Never smoker Gastrointestinal Controlled With Meds: Yes Hx Gastrointestinal Disorders: No Hx Gastrointestinal Bleed: No Hx Ulcer: No Hx Hiatal Hernia: No Difficulty Chewing/Swallowing: No Special diet followed at home: No Hx Unplanned Weight Loss of 20#: No HX Unplanned Weight Gain of 20#: No Neurological Hx Seizures: No HX Syncope/Blackout Spells/Unconsciousness: Yes (HX OF FALLING FREQUENTLY) Hx Transient Ischemic Attacks (TIA): No Hx Multiple Sclerosis: No Hx Parkinson's Disease: No Hx Head/Neck Injury: Yes (hx whiplash in the past) Hx Headaches: No Hx Back Injury/Pain: Yes (SPINAL STIMULATOR) Recent Onset of Speech Difficulty: No Restless Legs: Yes (on med) Does patient have nerve stimulator: No Blood Disorder Hx Leukemia: No Bleeding Tendencies: Yes (bruise easily/ on blood thinner TCU) Hx Deep Vein Thrombosis: No Hx High Cholesterol: Yes Blood Transmitted Disease: No Hx Hepatitis: No Hx Cirrhosis: No Hx Anemia: No Hx Blood Disorders: No Reproduction : No Is Patient Lactating: No Hx Hysterectomy: Yes Hx Tubal Ligation: No Are You Post Menopause: Yes Genitourinary Hx Renal Disease: No Hx Dialysis: No Musculoskeletal Hx Arthritis: Yes (BACK) Hx Rheumatoid Arthritis: No Hx Gout: No Recent Onset of an Orthopedic Problem: No Endocrine Hx Diabetes: Yes Thyroid Disease: Yes Hx Steroid Therapy: Yes Psycho/Social Hx Substance Use: No Hx Alcohol Use: No Hx Anxiety: Yes Hx Depression: Yes Mental Illness: No Hx Dementia: No Miscellaneous Hx Cancer: No Recent Exposure to Contagious Disease: No Hx of C-Diff: No Any Loose Teeth: No (FULL SET DENTURES) Allergies clindamycin Allergy (Mild, Verified 03/02/24 10:28) rash codeine phosphate (From Tylenol-Codeine #3) Adverse Reaction (Severe, Verified 03/02/24 10:28) Nausea Maternal: Family History Mother Heart valve disorder Hypertension Heart disease Father Pneumococcal pneumonia CVA (cerebral vascular accident) Heart disease Myocardial infarction CABG Daughter Diabetes Grandmother Diabetes Heart Disease Paternal: Family History Mother Heart valve disorder Hypertension Heart disease Father Pneumococcal pneumonia CVA (cerebral vascular accident) Heart disease Myocardial infarction CABG Daughter Diabetes Grandmother Diabetes Heart Disease Discharge Is Pt Admitted From a Long Term, or a Halfway: No After D/C, Where Do you Plan to Go: Return Home From the PAT History Number of Risk Factors: 6 Vital Signs Vital Signs Vital Signs: 03/07/24 06:42 03/07/24 06:42 03/07/24 07:22 Temperature 98.2 F 98.2 F Temperature Source Temporal Pulse Rate 68 68 Respiratory Rate 16 16 Respiratory Pattern Normal Blood Pressure 113/53 L 113/53 L Blood Pressure Mean 73 Blood Pressure Source Monitor Blood Pressure Position Semi-Fowlers Blood Pressure Location Left Arm Pulse Ox 94 94 Oxygen Delivery Method Room Air Weight Weight: 165 lb 5.547 oz Body Mass Index (BMI) 30.2 Physical Exam Const alert, oriented x3 and no apparent distress HEENT normocephalic and head/scalp atraumatic Resp normal respiratory effort Cardio regular rate GI soft to palpation and non-tender; Negative for non-distended Palpation: Negative for guarding Extremity no clubbing, cyanosis or edema Skin no rashes or lesions noted Neuro CN's II-XII intact bilaterally Psych mental status grossly normal Assessment & Plan Assessment/Plan (1) Fecal occult blood test positive: (2) Anemia: Surgery Risks - Colonoscopy Risks Include but are not Limited To: EGD and colonoscopy risks include but are not limited to: Bleeding, perforation requiring further surgery, inability to complete colonoscopy requiring barium enema.
--- NOTE | 2024-03-07 08:23 | PCM.POST.ANE ---
Anesthesia: Postop Eval I Current Vital Signs Temperature: 97.8 F Pulse Rate: 71 Blood Pressure: 106/51 Respiratory Rate: 18 Pulse Ox: 93 Assessment Airway patent: Yes Spontaneous unlabored respirations: Yes nausea: No Vomiting: No Anesthesia Complication: No Fluid Hydration Crystalloid volume administer (ml): 500 Total IV fluid infused: 500 Progress Note Anesthesia document: Postop Eval 1 completed: Yes
--- NOTE | 2024-03-07 08:27 | OP.EGD_ITS ---
Patient Name: Kyleigh Strickland Procedure Date: 03/07/2024 6:40 AM Date of : 1945 Age: 78 Procedure: Upper GI endoscopy Indications: Iron deficiency anemia Providers: Gretel Tavarez MD Referring MD: Gretel Tavarez MD Medicines: Monitored Anesthesia Care Patient Profile: This is an 78 year old female. Complications: No immediate complications. Procedure: Pre-Anesthesia Assessment: - Prior to the procedure, a History and Physical was performed, and patient medications and allergies were reviewed. The patient's tolerance of previous anesthesia was also reviewed. The risks and benefits of the procedure and the sedation options and risks were discussed with the patient. All questions were answered, and informed consent was obtained. Prior Anticoagulants: The patient has taken no anticoagulant or antiplatelet agents. ASA Grade Assessment: Per anesthesia. After reviewing the risks and benefits, the patient was deemed in satisfactory condition to undergo the procedure. After obtaining informed consent, the endoscope was passed under direct vision. Throughout the procedure, the patient's blood pressure, pulse, and oxygen saturations were monitored continuously. The gastroscope was introduced through the mouth, and advanced to the second part of duodenum. The upper GI endoscopy was accomplished without difficulty. The patient tolerated the procedure well. Scope In: 7:53:37 AM Scope Out: 7:58:42 AM Total Procedure Duration Time 0 hours 5 minutes 5 seconds Findings: The Z-line was irregular and was found 40 cm from the incisors. Biopsies were taken with a cold forceps for histology. White nummular lesions were noted in the proximal esophagus, in the mid esophagus and in the distal esophagus. Biopsies were taken with a cold forceps for histology. Moderate inflammation characterized by erythema was found in the gastric antrum. Biopsies were taken with a cold forceps for histology. Biopsies were taken with a cold forceps for Helicobacter pylori cultures. The examined duodenum was normal. The cardia and gastric fundus were normal on retroflexion. Impression: - Z-line irregular, 40 cm from the incisors. Biopsied. - White nummular lesions in esophageal mucosa. Biopsied. - Gastritis. Biopsied. - Normal examined duodenum. Recommendation: - Continue present medications. Procedure Code(s): --- Professional --- 01758, PT, Esophagogastroduodenoscopy, flexible, transoral; with biopsy, single or multiple Diagnosis Code(s): --- Professional --- K22.89, Other specified disease of esophagus K29.70, Gastritis, unspecified, without bleeding D50.9, Iron deficiency anemia, unspecified CPT copyright 2021 [employer]. All rights reserved. The codes documented in this report are preliminary and upon labor operator review may be revised to meet current compliance requirements. MD Gretel Chicas MD 03/07/2024 8:25:49 AM This report has been signed electronically. Number of Addenda: 0 Note Initiated On: 03/07/2024 6:40 AM
--- NOTE | 2024-03-07 08:27 | OP.CCLET_ITS ---
03/07/2024 Marcelle Magaña Md Re : Upper GI endoscopy procedure for Kyleigh Strickland Dear Archana This procedure was performed on Thursday, March 07, 2024. My impressions and recommendations are as follows: Impressions : - Z-line irregular, 40 cm from the incisors. Biopsied. - White nummular lesions in esophageal mucosa. Biopsied. - Gastritis. Biopsied. - Normal examined duodenum. Recommendations : - Continue present medications. My findings are described in the full procedure note, which is enclosed. If I can be of further assistance, please feel free to contact me at Doctor phone number(s): , Work: . Sincerely, MD Gretel Chicas MD 03/07/2024 8:25:49 AM This report has been signed electronically.
--- NOTE | 2024-03-07 08:31 | OP.COLON_ITS ---
Patient Name: Kyleigh Strickland Procedure Date: 03/07/2024 7:59 AM Date of : 1945 Age: 78 Procedure: Colonoscopy Indications: Iron deficiency anemia Providers: Gretel Tavarez MD Referring MD: Gretel Tavarez MD Medicines: Monitored Anesthesia Care Patient Profile: This is an 78 year old female. Last Colonoscopy: 10 years ago. Complications: No immediate complications. Procedure: Pre-Anesthesia Assessment: - Prior to the procedure, a History and Physical was performed, and patient medications and allergies were reviewed. The patient's tolerance of previous anesthesia was also reviewed. The risks and benefits of the procedure and the sedation options and risks were discussed with the patient. All questions were answered, and informed consent was obtained. Prior Anticoagulants: The patient has taken no anticoagulant or antiplatelet agents. ASA Grade Assessment: Per anesthesia. After reviewing the risks and benefits, the patient was deemed in satisfactory condition to undergo the procedure. After I obtained informed consent, the scope was passed under direct vision. Throughout the procedure, the patient's blood pressure, pulse, and oxygen saturations were monitored continuously. The Colonoscope was introduced through the anus and advanced to the cecum, identified by the ileocecal valve. The colonoscopy was performed without difficulty. The patient tolerated the procedure well. The quality of the bowel preparation was good. Scope In: 8:01:13 AM Scope Withdrawal Time 0 hours 9 minutes 11 seconds Scope Out: 8:16:20 AM Total Procedure Duration Time 0 hours 15 minutes 7 seconds Findings: Hemorrhoids were found on perianal exam. Non-bleeding internal hemorrhoids were found during retroflexion. The hemorrhoids were Grade I (internal hemorrhoids that do not prolapse). Two sessile polyps were found in the transverse colon. The polyps were less than 5 mm in size. These polyps were removed with a cold biopsy forceps. Resection and retrieval were complete. A less than 5 mm polyp was found in the descending colon. The polyp was sessile. The polyp was removed with a hot snare. Resection and retrieval were complete. Multiple small-mouthed diverticula were found in the sigmoid colon. Impression: - Hemorrhoids found on perianal exam. - Non-bleeding internal hemorrhoids. - Two less than 5 mm polyps in the transverse colon, removed with a cold biopsy forceps. Resected and retrieved. - One less than 5 mm polyp in the descending colon, removed with a hot snare. Resected and retrieved. - Diverticulosis in the sigmoid colon. Recommendation: - Discharge patient to home. - Resume previous diet. - Continue present medications. - Await pathology results. - Repeat colonoscopy not needed due to age. Procedure Code(s): --- Professional --- 04441, PT, Colonoscopy, flexible; with removal of tumor(s), polyp(s), or other lesion(s) by snare technique 18454, 59, Colonoscopy, flexible; with biopsy, single or multiple Diagnosis Code(s): --- Professional --- K64.0, First degree hemorrhoids D12.3, Benign neoplasm of transverse colon (hepatic flexure or splenic flexure) D12.4, Benign neoplasm of descending colon D50.9, Iron deficiency anemia, unspecified K57.30, Diverticulosis of large intestine without perforation or abscess without bleeding CPT copyright 2021 [employer]. All rights reserved. The codes documented in this report are preliminary and upon data coder operator review may be revised to meet current compliance requirements. MD Gretel Chicas MD 03/07/2024 8:30:46 AM This report has been signed electronically. Number of Addenda: 0 Note Initiated On: 03/07/2024 7:59 AM
--- NOTE | 2024-03-07 08:31 | POSTOPAN2_ITS ---
Anesthesia Postop Eval I Sum Postop Eval Completion status Anesthesia document: Postop Eval 1 completed: Yes Anesthesia Postop Eval I Summary Anesthesia Postop Eval I Summary: Anesthesia Postop Eval I: Assessment Summary Airway patent Yes 03/07/24 08:23 [email or web address] [email or web address] Spontaneous unlabored Yes 03/07/24 08:23 SPORT [email or web address].CSIR respirations Mental status nausea No 03/07/24 08:23 SPORT INTERN.CSIR Vomiting No 03/07/24 08:23 SPORT [email or web address].CSIR Anesthesia Postop Eval I: Fluid Summary Crystalloid volume administer 500 03/07/24 08:23 SPORT INTERN.CSIR (ml) Colloids volume administered ( ml) Blood Product volume administered (ml) Total IV fluid infused 500 03/07/24 08:23 SPORT INTERN.CSIR Anesthesia Postop Eval I: Summary Notes Anesthesia Complication No 03/07/24 08:23 SPORT INTERN.CSIR Anesthesia Complication Comment: Post-operative progress note Anesthesia: Postop Eval II Evaluation Mental status: Awake Pain Level: 0 nausea: No Vomiting: No
--- NOTE | 2024-03-07 08:31 | OP.CCLET_ITS ---
03/07/2024 Marcelle Magaña Md Re : Colonoscopy procedure for Kyleigh Strickland Dear Archana This procedure was performed on Thursday, March 07, 2024. My impressions and recommendations are as follows: Impressions : - Hemorrhoids found on perianal exam. - Non-bleeding internal hemorrhoids. - Two less than 5 mm polyps in the transverse colon, removed with a cold biopsy forceps. Resected and retrieved. - One less than 5 mm polyp in the descending colon, removed with a hot snare. Resected and retrieved. - Diverticulosis in the sigmoid colon. Recommendations : - Discharge patient to home. - Resume previous diet. - Continue present medications. - Await pathology results. - Repeat colonoscopy not needed due to age. My findings are described in the full procedure note, which is enclosed. If I can be of further assistance, please feel free to contact me at Doctor phone number(s): , Work: . Sincerely, MD Gretel Chicas MD 03/07/2024 8:30:46 AM This report has been signed electronically.
--- NOTE | 2024-03-07 08:31 | PCM.POSTANE2 ---
Anesthesia Postop Eval I Sum Postop Eval Completion status Anesthesia document: Postop Eval 1 completed: Yes Anesthesia Postop Eval I Summary Anesthesia Postop Eval I Summary: Anesthesia Postop Eval I: Assessment Summary Airway patent Yes 03/07/24 08:23 REFUSE COLLECTOR SUPERVISOR.CSIR Spontaneous unlabored Yes 03/07/24 08:23 REFUSE COLLECTOR SUPERVISOR.CSIR respirations Mental status nausea No 03/07/24 08:23 REFUSE COLLECTOR SUPERVISOR.CSIR Vomiting No 03/07/24 08:23 REFUSE COLLECTOR SUPERVISOR.CSIR Anesthesia Postop Eval I: Fluid Summary Crystalloid volume administer 500 03/07/24 08:23 REFUSE COLLECTOR SUPERVISOR.CSIR (ml) Colloids volume administered ( ml) Blood Product volume administered (ml) Total IV fluid infused 500 03/07/24 08:23 REFUSE COLLECTOR SUPERVISOR.CSIR Anesthesia Postop Eval I: Summary Notes Anesthesia Complication No 03/07/24 08:23 REFUSE COLLECTOR SUPERVISOR.CSIR Anesthesia Complication Comment: Post-operative progress note Anesthesia: Postop Eval II Evaluation Mental status: Awake Pain Level: 0 nausea: No Vomiting: No
== END 2024-03-07 09:02 | disposition home or self-care (01) ==
LOC: EN 06:10 → AC 06:11
PROVIDERS: PCP Internal Medicine; Referring Provider Surgery; Visit Provider Surgery
PROC: 0DJD8ZZ Inspection of Lower Intestinal Tract, Via Natural or Artificial Opening Endoscopic (ICD-10-PCS; CPT 45378; principal; 2024-03-07 07:25)
DX: R19.5 Other fecal abnormalities (principal); E11.9 Type 2 diabetes mellitus without complications; K63.5 Polyp of colon; K64.0 First degree hemorrhoids; I10 Essential (primary) hypertension; K57.30 Diverticulosis of large intestine without perforation or abscess without bleeding; K29.70 Gastritis, unspecified, without bleeding; E78.5 Hyperlipidemia, unspecified; Z79.82 Long term (current) use of aspirin; Z79.51 Long term (current) use of inhaled steroids; K21.9 Gastro-esophageal reflux disease without esophagitis; Z86.010 Personal history of colon polyps; Z79.899 Other long term (current) drug therapy; E03.9 Hypothyroidism, unspecified; G25.81 Restless legs syndrome; Z96.612 Presence of left artificial shoulder joint; Z96.649 Presence of unspecified artificial hip joint; Z90.49 Acquired absence of other specified parts of digestive tract; Z90.710 Acquired absence of both cervix and uterus; K22.89 Other specified disease of esophagus; D50.9 Iron deficiency anemia, unspecified
CPT/HCPCS: 45385; 45380; 43239; 88305; 88312; 88342; J7120; J2405

== ENCOUNTER 2024-03-11 15:37 | Emergency (ER) | payer MEDICARE, SELFPAY ==
[2024-03-11 15:37] VITALS: BP 141/77; PULSE 79; RESP 16; TEMP 36.8; O2SAT 97; BMI 30.8
--- NOTE | 2024-03-11 16:30 | EX.ED.DYSGE1 ---
HPI History of Present Illness Chief Complaint: Wound Informant: patient Narrative Narrative: 78-year-old female presenting to the emergency room skin tear to the left forearm. Patient states that on Tuesday (posttrauma day 4) she caught the skin on the door jam. She has been using hydroperoxide daily to cleanse the wound and states it does not seem to be healing right. No reported fevers. No drainage from the wound. [facility] Medical History Post-menopausal History of steroid therapy Arthritis Excessive bleeding Back pain Difficulty swallowing History of diverticulitis Gastric reflux History of echocardiogram Cardiology follow-up encounter Type 2 diabetes mellitus Vasovagal syncope Essential hypertension Bradycardia Hypothyroidism Hyperlipidemia Osteoarthritis Debility Wears glasses Wears dentures Thyroid disease Easy bruising Shortness of breath on exertion Leg cramps History of edema History of rheumatic fever Localized edema Bleeding tendency Injury of head and neck Chronic pain Gastroesophageal reflux disease Leukocytosis Diabetes mellitus Lumbar spinal stenosis Right lumbar radiculopathy Allergic rhinitis Vitamin B12 deficiency Restless leg syndrome Bilateral sacral insufficiency fracture with delayed healing History of colon polyps Asthma Chronic low back pain Home Medications ?Medication ?Instructions ?Recorded ?Last Taken ?Type albuterol sulfate 90 mcg/actuation 2 puff inhalation Q6H PRN sob 11/29/21 03/07/24 History aerosol inhaler cholecalciferol (vitamin D3) 25 25 mcg PO DAILY 11/29/21 03/02/24 History mcg (1,000 unit) tablet (Vitamin D3) hydrocodone-acetaminophen 5-325mg 1 tab PO BID PRN Pain 11/29/21 Unknown History 5mg-325mg mirtazapine 7.5 mg tablet 7.5 mg PO QHS 11/29/21 03/06/24 History triamcinolone acetonide 55 mcg 1 spray intranasal QHS 11/29/21 03/06/24 History nasal spray aerosol (Nasacort) zinc 50 mg tablet 50 mg PO DAILY 11/29/21 03/02/24 History acetaminophen 325 mg capsule 325 mg PO ONCE 01/10/23 Unknown History (Tylenol) ascorbic acid (vitamin C) 1,000 mg 1 g PO DAILY 01/10/23 03/02/24 History capsule loperamide 2 mg tablet 2 mg PO Q6H PRN nausea and vomiting 01/10/23 Unknown History guaifenesin 600 mg tablet, 600 mg PO BID PRN cough 06/15/23 Unknown History extended release 12 hr (Mucinex) ondansetron 4 mg disintegrating 4 mg PO Q8H PRN nausea and 06/16/23 Unknown Rx tablet vomiting #12 tabs mecobalamin (vitamin B12) 1,000 1,000 mcg PO DAILY #30 tabs 07/21/23 03/02/24 Rx mcg chewable tablet levothyroxine 200 mcg tablet 200 mcg PO DAILY #90 tabs 08/29/23 03/07/24 Rx rosuvastatin 5 mg tablet 5 mg PO QHS #90 tabs 08/29/23 03/06/24 Rx ammonium lactate 12 % lotion 1 applic topical BID #225 grams 10/03/23 Unknown Rx cetirizine 10 mg tablet 10 mg PO DAILY PRN Allergy 10/24/23 Unknown Rx Symptoms #30 tabs famotidine 40 mg tablet 40 mg PO DAILY #90 tabs 11/24/23 03/06/24 Rx ferrous sulfate 325 mg (65 mg 325 mg PO DAILY Supplement #90 tabs 11/24/23 03/02/24 Rx iron) tablet amlodipine 10 mg tablet See Rx Instructions .Route 11/25/23 03/06/24 Rx .COMPLEX #90 tabs olmesartan 20 mg tablet 20 mg PO QDAY 12/14/23 03/05/24 History ropinirole 1 mg tablet 0.5 mg PO DAILY 12/14/23 03/06/24 History meloxicam 15 mg tablet 15 mg PO DAILY #90 tabs 12/20/23 03/06/24 Rx aspirin 81 mg chewable tablet 81 mg PO DAILY #30 tabs 12/22/23 03/06/24 Rx sennosides 8.6 mg capsule (senna) 8.6 mg PO DAILY PRN constipation 01/02/24 Unknown Rx #30 caps dicyclomine 10 mg capsule 10 mg PO BID PRN abdominal pain 01/10/24 Unknown Rx #30 caps hydrocodone 7.5 mg-acetaminophen 1 tab PO DAILY 01/23/24 03/06/24 History 325 mg tablet gabapentin 300 mg capsule 300 mg PO QHS #30 caps 02/01/24 03/06/24 Rx pantoprazole 20 mg tablet,delayed 20 mg PO DAILY #60 tabs 02/21/24 03/06/24 Rx release fluticasone 500 mcg-salmeterol 50 1 ea inhalation BID 03/02/24 03/06/24 History mcg/dose blistr powdr for inhalation (Jayla Pinto) fluconazole 100 mg tablet 100 mg PO DAILY #22 tabs 03/07/24 Unknown Rx (Diflucan) bacitracin 500 unit/gram topical 1 applic topical DAILY 5 days #28 03/11/24 Unknown Rx ointment grams Allergy/AdvReac Type Severity Reaction Status Date / Time clindamycin Allergy Mild rash Verified 03/11/24 15:38 codeine phosphate (From AdvReac Severe Nausea Verified 03/11/24 15:38 Tylenol-Codeine #3) Family History Mother Heart valve disorder Hypertension Heart disease Father Pneumococcal pneumonia CVA (cerebral vascular accident) Heart disease Myocardial infarction CABG Daughter Diabetes Grandmother Diabetes Surgical History History of total shoulder replacement Status post reverse total arthroplasty of left shoulder Hx of lumbar discectomy Hx of decompressive lumbar laminectomy History of cardiac catheterization Hx of total hip arthroplasty History of colonoscopy (2012) history of pain stimulator History of bilateral carpal tunnel release History of loop recorder (2012) History of appendectomy History of hysterectomy Hx of tonsillectomy Social History household members: none housing: apartment number of children: 2 current occupational status: retired current occupation: worked at [employer] current occupational exposures/hazards: No pets and animals: No leisure activities: exercise and volunteer work Smoking Status: Never smoker Electronic Cigarette Use: not used alcohol intake: never substance use type: does not use what type of physical activity do you participate in: walking frequency: 3-4 times per week do you feel safe at home: Yes additional social history: daughter lives nearby ROS ROS ED Constitutional Constitutional ED: Denies chills or weight loss Eyes Eyes: Denies change in vision or diplopia ENT ENT ED: Denies ear pain, rhinorrhea or sore throat Cardiovascular Cardiovascular: Denies chest pain, orthopnea, palpitations or racing heartbeat Respiratory/Chest Respiratory/Chest: Denies cough, dyspnea or orthopnea Gastrointestinal Gastrointestinal: Denies abdominal pain, diarrhea, nausea or vomiting Genitourinary Genitourinary ED: Denies dysuria, hematuria or urinary frequency Musculoskeletal Musculoskeletal: Denies arthralgias or myalgias Integumentary Reports Abrasions; Denies abscess or rash Neurologic Neurologic: Denies headache(s) or weakness Psychiatric Psychiatric: Denies anxiety, depression, suicidal ideation or suicidal thoughts Endocrine Endocrinology: Denies polydipsia, polyphagia or polyuria Allergic/Immunologic Allergic/Immunologic ED: Denies mouth swelling, tongue swelling or urticaria EXAM Physical Exam Const Vital Signs: 03/11/24 15:37 Temperature 98.2 F Temperature Source Temporal Pulse Rate 79 Respiratory Rate 16 Blood Pressure 141/77 H Blood Pressure Mean 98 Pulse Ox 97 Oxygen Delivery Method Room Air Positive well nourished and well developed General Appearance ED: well developed HEENT Reports normocephalic, head/scalp atraumatic and moist mucous membranes Eyes PERRL and EOMs intact bilaterally Neck no lymphadenopathy, supple and no JVD Resp normal respiratory effort and clear to auscultation bilaterally Cardio regular rate, regular rhythm and no murmurs GI normal to inspection, nondistended, normoactive bowel sounds and non-tender Palpation: soft Back/Spine no CVA tenderness and normal ROM Extremity normal to inspection General Extremety ED: Negative for edema General Extremity: Negative for edema Neuro oriented x3 and CN's II-XII intact bilaterally Sensorium / Orientation: alert Motor Exam: strength 5/5 throughout Psych mental status grossly normal Mood & Affect: Negative for depressed or tearful Skin no rashes or lesions noted Skin Narrative: There are 2 approximately 1.5 cm skin tears on the dorsal lateral surface of the left forearm. 1 has partially avulsed skin that has dried up and is black hanging from it the other appears to have the edges approximated. I do not appreciate any cellulitis or drainage. MDM MDM MDM Narrative Medical decision making narrative: Differential diagnosis includes skin tear skin avulsion cellulitis abscess contusion fracture Patient has full range of motion minimally tender. There is no erythema to suggest infection no fluctuance. The pieces of skin were removed wound was dressed with bacitracin nonstick pad and then Gulshan wrap. Wound care was discussed with patient. I advised against further hydrogen peroxide use at this time. Explicitly wrote out the instructions for her. Return if worsening or concerns History & Record Review Discussion w/independent historian: Patient Discharge Plan Triage Chief Complaint: Wound ED Provider: Aashish Haynes Dx/Rx/DC Orders Clinical Impression: Skin tear of left upper extremity Instructions: ED Skin Tear (Skin Avulsion) Prescriptions: New bacitracin 500 unit/gram ointment 1 applic topical DAILY 5 Days Qty: 28 0RF No Action ascorbic acid (vitamin C) 1,000 mg capsule 1 g PO DAILY loperamide 2 mg tablet 2 mg PO Q6H PRN (Reason: nausea and vomiting) acetaminophen [Tylenol] 325 mg capsule 325 mg PO ONCE mecobalamin (vitamin B12) 1,000 mcg tablet,chewable 1,000 mcg PO DAILY Qty: 30 2RF guaifenesin [Mucinex] 600 mg tablet extended release 12hr 600 mg PO BID PRN (Reason: cough) ammonium lactate 12 % lotion 1 applic topical BID Qty: 225 0RF olmesartan 20 mg tablet 20 mg PO QDAY hydrocodone-acetaminophen 7.5-325 mg tablet 1 tab PO DAILY Patient Comments: taking routinely at bedtime for sleep dicyclomine 10 mg capsule 10 mg PO BID PRN (Reason: abdominal pain) Qty: 30 0RF hydrocodone-acetaminophen 5-325 mg tablet 1 tab PO BID PRN (Reason: Pain) Patient Comments: TAKE 1 TABLET BY MOUTH TWICE DAILY NEEDED FOR 28 DAYS triamcinolone acetonide [Nasacort] 55 mcg Aerosol,[place] 1 spray INTRANASAL QHS zinc 50 mg Tablet 50 mg PO DAILY albuterol sulfate 90 mcg/actuation HFA aerosol inhaler 2 puff INHALATION Q6H PRN (Reason: sob) Patient Comments: Inhale 2 puff as directed every six hours as needed mirtazapine 7.5 mg tablet 7.5 mg PO QHS cholecalciferol (vitamin D3) [Vitamin D3] 25 mcg (1,000 unit) Tablet 25 mcg PO DAILY ropinirole 1 mg tablet 0.5 mg PO DAILY fluticasone propion-salmeterol [Wixela Inhub] 500-50 mcg/dose blister with device 1 ea INHALATION BID fluconazole [Diflucan] 100 mg tablet 100 mg PO DAILY Qty: 22 0RF Rx Instructions: Take 2 tabs the first day then take 1 tab daily after that. ondansetron 4 mg tablet,disintegrating 4 mg PO Q8H PRN (Reason: nausea and vomiting) Qty: 12 0RF levothyroxine 200 mcg tablet 200 mcg PO DAILY Qty: 90 1RF rosuvastatin 5 mg tablet 5 mg PO QHS Qty: 90 1RF cetirizine 10 mg tablet 10 mg PO DAILY PRN (Reason: Allergy Symptoms) Qty: 30 3RF ferrous sulfate 325 mg (65 mg iron) tablet 325 mg PO DAILY Qty: 90 0RF famotidine 40 mg tablet 40 mg PO DAILY Qty: 90 0RF amlodipine 10 mg tablet See Rx Instructions .ROUTE .COMPLEX Qty: 90 1RF Dose Instruction: TAKE 1 TABLET BY MOUTH EVERY DAY AT BEDTIME Rx Instructions: TAKE 1 TABLET BY MOUTH EVERY DAY AT BEDTIME meloxicam 15 mg tablet 15 mg PO DAILY Qty: 90 1RF aspirin 81 mg tablet,chewable 81 mg PO DAILY Qty: 30 0RF senna 8.6 mg capsule 8.6 mg PO DAILY PRN (Reason: constipation) Qty: 30 0RF gabapentin 300 mg capsule 300 mg PO QHS Qty: 30 2RF pantoprazole 20 mg tablet,delayed release (DR/EC) 20 mg PO DAILY Qty: 60 0RF Primary Care Provider: Marcelle Magaña Referrals: Marcelle Magaña MD [Primary Care Provider] - As Needed Activity Restrictions/Additional Instructions: I would recommend keeping the wound covered during the day with an antibiotic ointment on it. In the evening hours you may unwrap it and let it air out but before bedtime put another dressing on it without antibiotic ointment to protect it while you sleep. You may take showers but I would avoid scrubbing the area. Print Language: Zambian Disposition Disposition: Home, Self Care
== END 2024-03-11 16:45 | disposition home or self-care (01) ==
LOC: ED 16:38
PROVIDERS: Emergency Provider Emergency Medicine; PCP Internal Medicine; Visit Provider Emergency Medicine
DX: S51.802A Unspecified open wound of left forearm, initial encounter (principal); E11.9 Type 2 diabetes mellitus without complications; E78.5 Hyperlipidemia, unspecified; I10 Essential (primary) hypertension; X58.XXXA Exposure to other specified factors, initial encounter; K21.9 Gastro-esophageal reflux disease without esophagitis; Z79.899 Other long term (current) drug therapy; Z96.612 Presence of left artificial shoulder joint; Z96.649 Presence of unspecified artificial hip joint; Z90.49 Acquired absence of other specified parts of digestive tract; Z90.710 Acquired absence of both cervix and uterus
CPT/HCPCS: 99282

== ENCOUNTER → 2024-05-08 | Outpatient (CLI) | payer MEDICARE, SELFPAY ==
[2024-05-08 12:23] LABS: Absolute Lymphocyte Count 1.99 X10^3/uL (0.83-4.51); Absolute Neutrophil Count 5.2 X10^3/uL (2.0-7.7); Basophil# 0.09 X10^3/uL; Eosinophil# 0.46 X10^3/uL; Eosinophils% 5.3 % (0-5); Hematocrit 35.6 % (37-47); Hemoglobin 11.7 g/dL (12.0-15.0); Lymphocyte # 1.99 X10^3/ul (0.83-4.51); Mean Corp Hgb Conc 32.9 g/dL (32-36); Mean Corpuscular Hgb 33.9 pg (27.0-32.0); Mean Corpuscular Volume 103.2 fL (81-99); Monocyte% 10.4 % (0-10); NRBC Flagged by Analyzer 0 % (0-5); Neutrophil # 5.17 X10^3/uL (2.7-7.7); Neutrophil % 59.6 % (47-70); Platelet Count 242 K/mm3 (150-450); RBC Distribution Width CV 12.5 % (11.6-14.6); RBC Distribution Width SD 47.2 fl (35.1-43.9); Red Blood Count 3.45 M/mm3 (4.2-5.4); White Blood Count 8.7 K/mm3 (4.4-11.0)
[2024-05-08 12:53] LABS: ALB/GLOB Ratio 1.1 RATIO (0.9-2.4); AST(SGOT) 19 U/L (15-37); Alanine Aminotransfer ALT/SGPT 34 U/L (13-56); Albumin, Serum 3.6 g/dL (3.2-5.0); Alkaline Phosphatase 115 U/L (45-117); Anion Gap 8 (5-15); BUN 20 mg/dL (7-18); BUN/Creat Ratio 20.5 RATIO (10-20); Calcium,Total 9.4 mg/dL (8.5-10.1); Chloride 109 mmol/L (98-107); Creatinine, Serum 0.98 mg/dL (0.55-1.02); EST Glomerular Filtration Rate 58 mL/min (>60); Est Glom Filt Rate - Afr Amer 70 mL/min (>60); Globulin 3.3 g/dL (2.2-4.2); Glucose 138 mg/dL (74-106); Potassium 3.9 mmol/L (3.5-5.1); Protein, Total 6.9 g/dL (6.4-8.2); Sodium Level 139 mmol/L (136-145)
== END | disposition home or self-care (01) ==
LOC: BIMLAB 10:42
PROVIDERS: Nurse Practitioner; PCP Internal Medicine; Referring Provider Internal Medicine; Visit Provider Internal Medicine
DX: I10 Essential (primary) hypertension (principal); R19.5 Other fecal abnormalities; E87.5 Hyperkalemia
CPT/HCPCS: 36415; 80053; 85025

== ENCOUNTER 2024-05-15 13:50 | Inpatient (IN) | payer MEDICARE, SELFPAY ==
[2024-05-15] VITALS (8 sets, daily range): BP systolic 100–155; BP diastolic 39–81; PULSE 78–87; RESP 16–18; TEMP 36.5–36.6; O2SAT 95–99; BMI 28.7; BMI 28.6
--- NOTE | 2024-05-15 15:31 | EX.ED.DYSGE1 ---
HPI History of Present Illness Chief Complaint: General Illness [facility] Medical History Post-menopausal History of steroid therapy Arthritis Excessive bleeding Back pain Difficulty swallowing History of diverticulitis Gastric reflux History of echocardiogram Cardiology follow-up encounter Type 2 diabetes mellitus Vasovagal syncope Essential hypertension Bradycardia Hypothyroidism Hyperlipidemia Osteoarthritis Debility Wears glasses Wears dentures Thyroid disease Easy bruising Shortness of breath on exertion Leg cramps History of edema History of rheumatic fever Localized edema Bleeding tendency Injury of head and neck Chronic pain Gastroesophageal reflux disease Leukocytosis Diabetes mellitus Lumbar spinal stenosis Right lumbar radiculopathy Allergic rhinitis Vitamin B12 deficiency Restless leg syndrome Bilateral sacral insufficiency fracture with delayed healing History of colon polyps Asthma Chronic low back pain Home Medications ?Medication ?Instructions ?Recorded ?Last Taken ?Type albuterol sulfate 90 mcg/actuation 2 puff inhalation Q6H PRN sob 11/29/21 03/07/24 History aerosol inhaler cholecalciferol (vitamin D3) 25 25 mcg PO DAILY 11/29/21 05/14/24 History mcg (1,000 unit) tablet (Vitamin D3) triamcinolone acetonide 55 mcg 1 spray intranasal QHS PRN allergy 11/29/21 03/06/24 History nasal spray aerosol (Nasacort) symptoms loperamide 2 mg tablet 2 mg PO Q6H PRN nausea and vomiting 01/10/23 Unknown History guaifenesin 600 mg tablet, 600 mg PO BID PRN cough 06/15/23 Unknown History extended release 12 hr (Mucinex) mecobalamin (vitamin B12) 1,000 1,000 mcg PO DAILY #30 tabs 07/21/23 05/14/24 Rx mcg chewable tablet amlodipine 10 mg tablet See Rx Instructions .Route 11/25/23 05/14/24 Rx .COMPLEX #90 tabs aspirin 81 mg chewable tablet 81 mg PO DAILY #30 tabs 12/22/23 05/14/24 Rx gabapentin 300 mg capsule 300 mg PO QHS #30 caps 02/01/24 05/14/24 Rx fluticasone 500 mcg-salmeterol 50 1 ea inhalation BID 03/02/24 05/14/24 History mcg/dose blistr powdr for inhalation (Jayla Inhub) famotidine 40 mg tablet 40 mg PO DAILY #90 tabs 03/13/24 05/14/24 Rx olmesartan 20 mg tablet 20 mg PO DAILY #90 TABLETS 03/14/24 05/14/24 Rx levothyroxine 200 mcg tablet 200 mcg PO DAILY #90 tabs 03/22/24 05/14/24 Rx ferrous sulfate 325 mg (65 mg 325 mg PO DAILY Supplement #90 tabs 04/16/24 05/14/24 Rx iron) tablet mirtazapine 7.5 mg tablet 7.5 mg PO QHS #90 tabs 04/16/24 05/14/24 Rx pantoprazole 20 mg tablet,delayed 20 mg PO DAILY #60 tabs 04/16/24 05/14/24 Rx release acetaminophen 325 mg capsule 650 mg PO Q6H PRN fever or pain 04/27/24 Unknown History (Tylenol) ascorbic acid (vitamin C) 1,000 mg 0.5 g PO DAILY 04/27/24 05/14/24 History capsule hydrocodone-acetaminophen 5-325mg 1 tab PO Q8H PRN Pain 04/27/24 Unknown History 5mg-325mg cetirizine 10 mg tablet 10 mg PO DAILY PRN allergy 05/08/24 Unknown Rx symptoms #30 TABLETS ammonium lactate 12 % lotion 1 applic topical BID PRN dry skin 05/15/24 Unknown History dicyclomine 10 mg capsule 10 mg PO BID PRN abdominal pain 05/15/24 Unknown History meloxicam 15 mg tablet 7.5 mg PO BID 05/15/24 05/14/24 History ropinirole 0.5 mg tablet 1 mg PO DAILY 05/15/24 05/14/24 History rosuvastatin 20 mg tablet 20 mg PO DAILY 05/15/24 05/14/24 History sennosides 8.6 mg tablet (senna) 17.2 mg PO BID PRN constipation 05/15/24 Unknown History zinc acetate 50 mg (zinc) capsule 50 mg PO DAILY 05/15/24 05/14/24 History (Galzin) Allergy/AdvReac Type Severity Reaction Status Date / Time clindamycin Allergy Mild rash Verified 05/15/24 13:52 codeine phosphate (From AdvReac Severe Nausea Verified 05/15/24 13:52 Tylenol-Codeine #3) Family History Mother Heart valve disorder Hypertension Heart disease Father Pneumococcal pneumonia CVA (cerebral vascular accident) Heart disease Myocardial infarction CABG Daughter Diabetes Grandmother Diabetes Surgical History History of total shoulder replacement Status post reverse total arthroplasty of left shoulder Hx of lumbar discectomy Hx of decompressive lumbar laminectomy History of cardiac catheterization Hx of total hip arthroplasty History of colonoscopy (2012) history of pain stimulator History of bilateral carpal tunnel release History of loop recorder (2012) History of appendectomy History of hysterectomy Hx of tonsillectomy Social History household members: none housing: apartment number of children: 2 current occupational status: retired current occupation: worked at [employer] current occupational exposures/hazards: No pets and animals: No leisure activities: exercise and volunteer work Smoking Status: Never smoker Electronic Cigarette Use: not used alcohol intake: never substance use type: does not use what type of physical activity do you participate in: walking frequency: 3-4 times per week do you feel safe at home: Yes additional social history: daughter lives nearby EXAM Physical Exam Const Vital Signs: 05/15/24 13:52 05/15/24 14:55 05/15/24 15:51 Temperature 97.9 F Temperature Source Oral Pulse Rate 80 Respiratory Rate 18 Respiratory Effort Normal Non-Labored Respiratory Pattern Normal Blood Pressure 127/59 H 155/79 H Blood Pressure Mean 81 104 Pulse Ox 95 Oxygen Delivery Method Room Air 05/15/24 17:00 05/15/24 18:57 05/15/24 19:00 Temperature 98 F Temperature Source Pulse Rate 87 Respiratory Rate 18 Respiratory Effort Respiratory Pattern Blood Pressure 116/39 L 116/39 L 151/67 H Blood Pressure Mean 64 64 95 Pulse Ox 99 Oxygen Delivery Method MDM MDM MDM Narrative Medical decision making narrative: HISTORY OF PRESENT ILLNESS: 78-year-old female presents with chills and fatigue that started last night. She further states she has not been feeling well for the past day. Notes fatigue. Denies fever. Denies sick contacts. Denies palpitations or chest pain. Denies urinary complaints. Denies abdominal pain vomiting or diarrhea. Notes normal appetite. Denies syncope or focal weakness. REVIEW OF SYSTEMS: Pertinent positives: Fatigue, Pertinent negatives: As per HPI PHYSICAL EXAM: Nursing triage notes reviewed, Vital signs reviewed Constitutional: please see mdm HENT: MMM Eyes: Pupils equal round and reactive to light, Extraocular muscles intact Neck: No stridor, no JVD, full neck ROM Lungs: Clear to auscultation, No wheezing or rales. No increased work of breathing, no conversational dyspnea, no accessory muscle use, no nasal flaring. No respiratory distress noted Heart: Regular rate and rhythm, No murmurs, No rubs and No gallops, 2+ distal pulses (radial, femoral, posterior tibial) in all extremities Abdomen: Soft, there is no tenderness, rigidity, rebound or guarding, no obvious peritoneal signs, no palpable pulsatile abdominal masses, no auscultated abdominal bruit : No CVAT Extremities: No edema Neuro: No focal neurological deficits, cranial nerves II through XII intact, 5/5 strength in all extremities. Intact sensation to light touch in all extremities, 2+ reflexes bilateral patella tendons. Normal gait. No ataxia. Skin: No rash or lesions noted MEDICAL DECISION MAKING: Chief Complaint: Fatigue External records reviewed: Reviewed prior allergies, problem list, vital signs, current medications Factors affecting care: Prediabetes, GERD, hypothyroidism, hyperlipidemia Social determinants of health: elderly History obtained from others: n daughter Consults: Hospitalist (Dr. Porter) [facility] Narrative: The patient was initially hemodynamically stable, afebrile and nontoxic-appearing. Exam without focus of infection or abnormality including neurologic deficits or cardiopulmonary abnormality I considered the following differential diagnosis: ACS, arrhythmia, anemia, electro disturbance, thyroid dysfunction, UTI, pneumonia, COVID, flu, RSV ALL IMAGES (IF OBTAINED) HAVE BEEN PERSONALLY REVIEWED AND INTERPRETED BY MYSELF. EKG with normal sinus rhythm, left ax deviation, no intervals, no STEMI CBC with leukocytosis suggestive of systemic inflammation, mild anemia, no thrombocytopenia BMP without significant [place] normalities, no evidence of metabolic acidosis and normal bicarb, no evidence of endorgan hypoperfusion with normal anion gap. There is significant acute kidney injury, LFTs show no evidence of hepatobiliary pathology. High-sensitivity troponin is negative, no evidence of myocardial ischemia TSH is low this is not indicative of hypothyroidism Lipase is wnl indicating no pancreatic inflammation. Urine with signs of inflammation and bacteria to be related to UTI, will send for culture COVID flu RSV The synthesis of the patient's history, physical exam, labs images suggest likely fatigue from UTI, signs of systemic inflammation were noted with elevated white blood cell count, acute kidney injury patient will require mission for hydration, antibiotics and further evaluation. Discussed with hospitalist accepted the patient's case. The patient and/or family, caregivers express understanding. The patient and/or family, caregivers agrees with the plan. Shared decision making: I will have a discussion with the patient and or visitors regarding risk/benefits of further testing or admission. They will be made aware of of the risk/benefits inherent in this decision they will be given the opportunity to voice understanding. Total critical care time today provided was at least 0 minutes. This excludes separately billable procedures. Critical care time (if documented) is secondary to the patient having high probability of clinically significant/life threatening deterioration in the patient's condition which required my urgent intervention. Impression: 1. Fatigue 2. Leukocytosis 3. [place] 4. UTI Dispo: Admit to [facility] This note was generated with [email or web address] dictation software. It may contain incorrect words, spelling, and punctuation that were not noted in review of the chart prior to signing. Lab Data Labs: Laboratory Results - last 24 hr 05/15/24 05/15/24 16:06 16:17 WBC 17.9 H RBC 3.23 L Hgb 11.1 L Hct 33.6 L MCV 104.0 H MCH 34.4 H MCHC 33.0 RDW Std Deviation 48.5 H RDW Coeff of [place] 12.8 Plt Count 217 MPV 11.6 Sodium 139 Potassium 4.4 Chloride 108 H Carbon Dioxide 24.0 Anion Gap 7 BUN 36 H Creatinine 1.85 H Estim Creat Clear Calc 24.19 Est GFR (MDRD) Af Amer 34 L Est GFR (MDRD) Non-Af 28 L BUN/Creatinine Ratio 19.5 Glucose 97 Calcium 9.1 Total Bilirubin 0.40 Direct Bilirubin 0.16 AST 20 ALT 32 Alkaline Phosphatase 95 Troponin I High Sens 11 Total Protein 6.4 Albumin 3.5 Globulin 2.9 Lipase 33 TSH 0.117 L Free T4 1.48 H Free T3 pg/dL 2.3 Urine Color Yellow Urine Clarity Cloudy Urine pH 5.0 Ur Specific [place] 1.020 Urine Protein 30 H Urine Glucose (UA) Normal Urine Ketones Negative Urine Occult Blood 25 H Urine Nitrite Negative Urine Bilirubin Negative Urine Urobilinogen 1 H Ur Leukocyte Esterase 500 H Urine RBC 0 SEEN Urine WBC 50-100 SEEN Ur Squamous Epith Cells > 100 SEEN Calcium Oxalate Crystal 1+ Urine Bacteria 3+ Urine Mucus 0 SEEN Radiography Diagnostic Testing: Clinical Impression(s) from Imaging Studies Chest X-Ray 05/15/24 16:20 IMPRESSION: No acute cardiopulmonary abnormality. Electronically Signed: Kvng Flores MD at 16:33 EST Reading Location ID and State: [facility] Tel , Service support , Discharge Plan Triage Chief Complaint: General Illness ED Provider: Diomedes Rodriguez Dx/Rx/DC Orders Prescriptions: No Action loperamide 2 mg tablet 2 mg PO Q6H PRN (Reason: nausea and vomiting) ascorbic acid (vitamin C) 1,000 mg capsule 0.5 g PO DAILY acetaminophen [Tylenol] 325 mg capsule 650 mg PO Q6H PRN (Reason: fever or pain) mecobalamin (vitamin B12) 1,000 mcg tablet,chewable 1,000 mcg PO DAILY Qty: 30 2RF guaifenesin [Mucinex] 600 mg tablet extended release 12hr 600 mg PO BID PRN (Reason: cough) cetirizine 10 mg tablet 10 mg PO DAILY PRN (Reason: allergy symptoms) Qty: 30 3RF triamcinolone acetonide [Nasacort] 55 mcg Aerosol,[place] 1 spray INTRANASAL QHS PRN (Reason: allergy symptoms) albuterol sulfate 90 mcg/actuation HFA aerosol inhaler 2 puff INHALATION Q6H PRN (Reason: sob) cholecalciferol (vitamin D3) [Vitamin D3] 25 mcg (1,000 unit) Tablet 25 mcg PO DAILY hydrocodone-acetaminophen 5-325 mg tablet 1 tab PO Q8H PRN (Reason: Pain) Patient Comments: TAKE 1 TABLET BY MOUTH TWICE DAILY NEEDED FOR 28 DAYS fluticasone propion-salmeterol [Wixela Inhub] 500-50 mcg/dose blister with device 1 ea INHALATION BID Galzin 50 mg (zinc) capsule 50 mg PO DAILY sennosides [senna] 8.6 mg tablet 17.2 mg PO BID PRN (Reason: constipation) ammonium lactate 12 % lotion 1 applic topical BID PRN (Reason: dry skin) meloxicam 15 mg tablet 7.5 mg PO BID ropinirole 0.5 mg tablet 1 mg PO DAILY dicyclomine 10 mg capsule 10 mg PO BID PRN (Reason: abdominal pain) rosuvastatin 20 mg tablet 20 mg PO DAILY amlodipine 10 mg tablet See Rx Instructions .ROUTE .COMPLEX Qty: 90 1RF Dose Instruction: TAKE 1 TABLET BY MOUTH EVERY DAY AT BEDTIME Rx Instructions: TAKE 1 TABLET BY MOUTH EVERY DAY AT BEDTIME aspirin 81 mg tablet,chewable 81 mg PO DAILY Qty: 30 0RF gabapentin 300 mg capsule 300 mg PO QHS Qty: 30 2RF famotidine 40 mg tablet 40 mg PO DAILY Qty: 90 0RF olmesartan 20 mg tablet 20 mg PO DAILY Qty: 90 1RF levothyroxine 200 mcg tablet 200 mcg PO DAILY Qty: 90 1RF ferrous sulfate 325 mg (65 mg iron) tablet 325 mg PO DAILY Qty: 90 0RF mirtazapine 7.5 mg tablet 7.5 mg PO QHS Qty: 90 0RF pantoprazole 20 mg tablet,delayed release (DR/EC) 20 mg PO DAILY Qty: 60 0RF Primary Care Provider: Marcelle Magaña Referrals: Marcelle Magaña MD [Primary Care Provider] - Print Language: Polish
--- NOTE | 2024-05-15 15:48 | EKG12_ITS ---
Test Reason : GENERAL Blood Pressure : */* mmHG Vent. Rate : 68 BPM Atrial Rate : 68 BPM P-R Int : 178 ms QRS Dur : 84 ms QT Int : 402 ms P-R-T Axes : 60 -10 22 degrees QTcB Int : 427 ms Normal sinus rhythm Moderate voltage criteria for LVH, may be normal variant ( R in aVL , [place]ner product ) Cannot rule out Septal infarct , age undetermined Abnormal ECG Confirmed by Ang Cole ([id number]), multimedia editor DOROTEO HERNANDEZ ([id number]) on 05/16/2024 1:06:31 PM Referred By: Confirmed By: Ang Cole
--- NOTE | 2024-05-15 16:20 | RAD_ITS ---
EXAM: XR CHEST, 1 VIEW CLINICAL INDICATION: Fatigue TECHNIQUE: Frontal view of the chest. COMPARISON: XR Chest dated 12/16/2021 FINDINGS: LUNGS AND PLEURAL SPACES: Normal. No consolidation or edema. No pneumothorax. No effusion. HEART: Normal heart size. MEDIASTINUM: No mediastinal or hilar mass. BONES/JOINTS: Interval placement of reverse right shoulder prosthesis. Left shoulder prosthesis again noted. TUBES, LINES AND DEVICES: Loop recorder in place. Intraspinal stimulator wires remain in place. RAD/Chest 1 View (Portable) IMPRESSION: No acute cardiopulmonary abnormality. Electronically Signed: Kvng Flores MD at 16:33 EST ,
[2024-05-15 16:25] LABS: Mucous, Urine 0 SEEN /hpf (<or=2+); Red Blood Cells-Urine 0 SEEN /hpf (0-5)
[2024-05-15 16:30] LABS: Hematocrit 33.6 % (37-47); Hemoglobin 11.1 g/dL (12.0-15.0); Mean Corpuscular Hgb 34.4 pg (27.0-32.0); Mean Platelet Vol. 11.6 fl (6.2-12.0); Platelet Count 217 K/mm3 (150-450); RBC Distribution Width CV 12.8 % (11.6-14.6); RBC Distribution Width SD 48.5 fl (35.1-43.9); Red Blood Count 3.23 M/mm3 (4.2-5.4); White Blood Count 17.9 K/mm3 (4.4-11.0)
[2024-05-15 16:31] LABS: Color, Urine Yellow (Yellow); Glucose, Dipstick Normal (Normal); Ketone-Dipstick Negative (Negative); Leukocyte Esterase-Dipstick 500 /ul (Negative); Nitrite-Dipstick Negative (Negative); Occult Blood-Urine 25 /ul (Negative); Protein-Dipstick 30 mg/dl (Negative); Urine Bilirubin Dipstick Negative (Negative); Urine Clarity Cloudy (Clear); Urine Urobilinogen 1 mg/dl (Normal)
[2024-05-15 16:41] LABS: Squamous Epithelial Cells - UA > 100 SEEN /hpf (5-10)
[2024-05-15 16:43] LABS: Bacteria 3+ /hpf (None Seen)
[2024-05-15 16:45] LABS: Calcium Oxalate Crystals Ur 1+ /hpf (<or=2+); White Blood Cells 50-100 SEEN /hpf (0-5)
[2024-05-15 16:56] LABS: AST(SGOT) 20 U/L (15-37); Alanine Aminotransfer ALT/SGPT 32 U/L (13-56); Albumin, Serum 3.5 g/dL (3.2-5.0); Alkaline Phosphatase 95 U/L (45-117); Anion Gap 7 (5-15); BUN 36 mg/dL (7-18); BUN/Creat Ratio 19.5 RATIO (10-20); Bilirubin, Direct 0.16 mg/dL (0.00-0.30); Calcium,Total 9.1 mg/dL (8.5-10.1); Chloride 108 mmol/L (98-107); Creatinine, Serum 1.85 mg/dL (0.55-1.02); EST Glomerular Filtration Rate 28 mL/min (>60); Est Glom Filt Rate - Afr Amer 34 mL/min (>60); Estimated Creatinine Clearance 24.19 ml/min; Free T3 2.3 pg/mL (2.18-3.98); Globulin 2.9 g/dL (2.2-4.2); Glucose 97 mg/dL (74-106); Lipase 33 U/L (13-75); Potassium 4.4 mmol/L (3.5-5.1); Protein, Total 6.4 g/dL (6.4-8.2); Sodium Level 139 mmol/L (136-145); T4 Free Direct 1.48 ng/dL (0.76-1.46); Thyroid Stim Hormone (TSH) 0.117 uIU/mL (0.358-3.740); Troponin-I HS 11 pg/mL (3.0-54.0)
[2024-05-15] MEDS: Ceftriaxone 1 GM/50 ML BAG IV (17:45)
[2024-05-15] MEDS: 0.9% Normal Saline (1000mL) 1,000 ML 999 ML IV (17:53)
--- NOTE | 2024-05-15 19:26 | PCM.HP.STD ---
HPI - General General Date of Admission: 05/15/24 Date of Service: 05/15/24 Chief Complaint: Fatigue HPI Narrative JERRELL BAUMAN, is a 78 F with a history of hypertension, GERD, asthma, hypothyroidism, restless leg syndrome who presented to [facility] ED on 05/15/24 due to 1 day of chills and fatigue. In the ED she was noted to have a white blood cell count of 17.9, YASMANY with a creatinine of 1.85, and an abnormal UA. Patient given IV fluids and Rocephin and given her generalized weakness/feeling unwell with YASMANY and concern for infection hospitalist contacted for admission. Patient evaluated at bedside, she wakes up easily when talking with her but will fall back asleep very quickly and reports primarily being tired. Endorses feeling fatigued and just generally unwell for 1 day with some possible fever and chills over the past day. Given this was not improving she came to the hospital. Patient denies any bowel or bladder changes, no diarrhea, no nausea, no burning on urination, no other new or acute focal complaints. [facility] Medical History Allergic rhinitis Arthritis Asthma Back pain Bilateral sacral insufficiency fracture with delayed healing Bleeding tendency Bradycardia Cardiology follow-up encounter Chronic low back pain Chronic pain Debility Diabetes mellitus Difficulty swallowing Easy bruising Essential hypertension Excessive bleeding Gastric reflux Gastroesophageal reflux disease History of colon polyps History of diverticulitis History of echocardiogram History of edema History of rheumatic fever History of steroid therapy Hyperlipidemia Hypothyroidism Injury of head and neck Leg cramps Leukocytosis Localized edema Lumbar spinal stenosis Osteoarthritis Post-menopausal Restless leg syndrome Right lumbar radiculopathy Shortness of breath on exertion Thyroid disease Type 2 diabetes mellitus Vasovagal syncope Vitamin B12 deficiency Wears dentures Wears glasses Home Medications ?Medication ?Instructions ?Recorded ?Last Taken ?Type albuterol sulfate 90 mcg/actuation 2 puff inhalation Q6H PRN sob 11/29/21 03/07/24 History aerosol inhaler cholecalciferol (vitamin D3) 25 25 mcg PO DAILY 11/29/21 05/14/24 History mcg (1,000 unit) tablet (Vitamin D3) triamcinolone acetonide 55 mcg 1 spray intranasal QHS PRN allergy 11/29/21 03/06/24 History nasal spray aerosol (Nasacort) symptoms loperamide 2 mg tablet 2 mg PO Q6H PRN nausea and vomiting 01/10/23 Unknown History guaifenesin 600 mg tablet, 600 mg PO BID PRN cough 06/15/23 Unknown History extended release 12 hr (Mucinex) mecobalamin (vitamin B12) 1,000 1,000 mcg PO DAILY #30 tabs 07/21/23 05/14/24 Rx mcg chewable tablet amlodipine 10 mg tablet See Rx Instructions .Route 11/25/23 05/14/24 Rx .COMPLEX #90 tabs aspirin 81 mg chewable tablet 81 mg PO DAILY #30 tabs 12/22/23 05/14/24 Rx gabapentin 300 mg capsule 300 mg PO QHS #30 caps 02/01/24 05/14/24 Rx fluticasone 500 mcg-salmeterol 50 1 ea inhalation BID 03/02/24 05/14/24 History mcg/dose blistr powdr for inhalation (Jayla Pnito) famotidine 40 mg tablet 40 mg PO DAILY #90 tabs 03/13/24 05/14/24 Rx olmesartan 20 mg tablet 20 mg PO DAILY #90 TABLETS 03/14/24 05/14/24 Rx levothyroxine 200 mcg tablet 200 mcg PO DAILY #90 tabs 03/22/24 05/14/24 Rx ferrous sulfate 325 mg (65 mg 325 mg PO DAILY Supplement #90 tabs 04/16/24 05/14/24 Rx iron) tablet mirtazapine 7.5 mg tablet 7.5 mg PO QHS #90 tabs 04/16/24 05/14/24 Rx pantoprazole 20 mg tablet,delayed 20 mg PO DAILY #60 tabs 04/16/24 05/14/24 Rx release acetaminophen 325 mg capsule 650 mg PO Q6H PRN fever or pain 04/27/24 Unknown History (Tylenol) ascorbic acid (vitamin C) 1,000 mg 0.5 g PO DAILY 04/27/24 05/14/24 History capsule hydrocodone-acetaminophen 5-325mg 1 tab PO Q8H PRN Pain 04/27/24 Unknown History 5mg-325mg cetirizine 10 mg tablet 10 mg PO DAILY PRN allergy 05/08/24 Unknown Rx symptoms #30 TABLETS ammonium lactate 12 % lotion 1 applic topical BID PRN dry skin 05/15/24 Unknown History dicyclomine 10 mg capsule 10 mg PO BID PRN abdominal pain 05/15/24 Unknown History meloxicam 15 mg tablet 7.5 mg PO BID 05/15/24 05/14/24 History ropinirole 0.5 mg tablet 1 mg PO DAILY 05/15/24 05/14/24 History rosuvastatin 20 mg tablet 20 mg PO DAILY 05/15/24 05/14/24 History sennosides 8.6 mg tablet (senna) 17.2 mg PO BID PRN constipation 05/15/24 Unknown History zinc acetate 50 mg (zinc) capsule 50 mg PO DAILY 05/15/24 05/14/24 History (Galzin) Allergy/AdvReac Type Severity Reaction Status Date / Time clindamycin Allergy Mild rash Verified 05/15/24 13:52 codeine phosphate (From AdvReac Severe Nausea Verified 05/15/24 13:52 Tylenol-Codeine #3) Family History Mother Heart valve disorder Hypertension Heart disease Father Pneumococcal pneumonia CVA (cerebral vascular accident) Heart disease Myocardial infarction CABG Daughter Diabetes Grandmother Diabetes Surgical History History of appendectomy History of bilateral carpal tunnel release History of cardiac catheterization History of colonoscopy (2012) History of hysterectomy History of loop recorder (2012) history of pain stimulator History of total shoulder replacement Hx of decompressive lumbar laminectomy Hx of lumbar discectomy Hx of tonsillectomy Hx of total hip arthroplasty Status post reverse total arthroplasty of left shoulder Social History household members: none housing: apartment number of children: 2 current occupational status: retired current occupation: worked at [employer] current occupational exposures/hazards: No pets and animals: No leisure activities: exercise and volunteer work Smoking Status: Never smoker Electronic Cigarette Use: not used alcohol intake: never substance use type: does not use what type of physical activity do you participate in: walking frequency: 3-4 times per week do you feel safe at home: Yes additional social history: daughter lives [place] [facility] General: Reports some fevers and chills over the past 1 day HENT: Denies headache, some nasal congestion, denies sore throat EYES: Denies changes in vision Resp: Denies cough, denies shortness of breath Cardiac: Denies chest pain GI: Denies abdominal pain, denies changes in bowel, denies nausea/vomiting : Denies changes in urination Extremity: Denies swelling MSK: Feels somewhat generally weak and fatigued Neuro: Denies any numbness/tingling Heme: Denies any bleeding or bruising Skin: Denies rashes Psychiatric: No complaints voiced Vital Signs Vital Signs Vital Signs: 05/15/24 13:52 05/15/24 14:55 05/15/24 15:51 Temperature 97.9 F Temperature Source Oral Pulse Rate 80 Respiratory Rate 18 Respiratory Effort Normal Non-Labored Respiratory Pattern Normal Blood Pressure 127/59 H 155/79 H Blood Pressure Mean 81 104 Pulse Ox 95 Oxygen Delivery Method Room Air 05/15/24 17:00 05/15/24 18:57 05/15/24 19:00 Temperature 98 F Temperature Source Pulse Rate 87 Respiratory Rate 18 Respiratory Effort Respiratory Pattern Blood Pressure 116/39 L 116/39 L 151/67 H Blood Pressure Mean 64 64 95 Pulse Ox 99 Oxygen Delivery Method Weight Weight: 75.886 kg Body Mass Index (BMI) 28.7 Physical Exam Narrative General: Resting comfortably, wakes up and answers questions appropriately but does quickly fall back asleep HEENT: Atraumatic, normocephalic Eyes: Anicteric, normal conjunctiva, extraocular movements grossly intact Neck: Supple Respiratory: Clear to auscultation bilaterally, normal respiratory effort Cardiovascular: Regular rate and rhythm GI: Soft, nontender, nondistended Extremities: No edema Musculoskeletal: Moving all extremities Neuro: No overt focal neurological deficits Skin: No rashes appreciated Psych: Cooperative Results Lab / Micro Data 05/15/24 16:06 05/15/24 16:06 Labs: Laboratory Results - last 24 hr 05/15/24 16:06: WBC 17.9 H, RBC 3.23 L, Hgb 11.1 L, Hct 33.6 L, MCV 104.0 H, MCH 34.4 H, MCHC 33.0, RDW Std Deviation 48.5 H, RDW Coeff of Taran 12.8, Plt Count 217, MPV 11.6, Sodium 139, Potassium 4.4, Chloride 108 H, Carbon Dioxide 24.0, Anion Gap 7, BUN 36 H, Creatinine 1.85 H, Estim Creat Clear Calc 24.19, Est GFR (MDRD) Af Amer 34 L, Est GFR (MDRD) Non-Af 28 L, BUN/Creatinine Ratio 19.5, Glucose 97, Calcium 9.1, Total Bilirubin 0.40, Direct Bilirubin 0.16, AST 20, ALT 32, Alkaline Phosphatase 95, Troponin I High Sens 11, Total Protein 6.4, Albumin 3.5, Globulin 2.9, Lipase 33, TSH 0.117 L, Free T4 1.48 H, Free T3 pg/dL 2.3 05/15/24 16:17: Urine Color Yellow, Urine Clarity Cloudy, Urine pH 5.0, Ur Specific [place] 1.020, Urine Protein 30 H, Urine Glucose (UA) Normal, Urine Ketones Negative, Urine Occult Blood 25 H, Urine Nitrite Negative, Urine Bilirubin Negative, Urine Urobilinogen 1 H, Ur Leukocyte Esterase 500 H, Urine RBC 0 SEEN, Urine WBC 50-100 SEEN, Ur Squamous Epith Cells > 100 SEEN, Calcium Oxalate Crystal 1+, Urine Bacteria 3+, Urine Mucus 0 SEEN Micro: Microbiology 05/15/24 15:40 Mucosa - Nose SARS-CoV-2, Influenza & RSV (PCR) - Final Imaging Radiology Impression Chest X-Ray 05/15/24 16:20 IMPRESSION: No acute cardiopulmonary abnormality. Electronically Signed: Kvng Flores MD at 16:33 EST Reading Location ID and State: [address] [place] [address] Tel , Service support , Assessment & Plan Assessment/Plan (1) YASMANY (acute kidney injury): PLAN: Plan # YASMANY -Patient with creatinine of 1.85 with baseline closer to 1 -Suspect this is multifactorial especially given her meloxicam twice daily and olmesartan possibly component of dehydration but does appear that patient -Continue IVF -Avoid nephrotoxic agents -Hold olmesartan -Hold meloxicam -I's and O's # Abnormal UA/leukocytosis -Patient felt some fevers and chills at home over the past day, UA possible contaminant however patient does have leukocytosis and no other nidus that would account for a white blood cell count of 17.9 least based on present questioning and lack of other complaints -Will continue Rocephin while awaiting urine culture, and can de-escalate negative -If patient does not improve or worsens may need further infectious workup # Fatigue/excessive sleepiness -Suspect that this is largely due to patient's gabapentin with decreased clearance due to YASMANY in addition to her home hydrocodone -This possibly of UTI, continue Rocephin while awaiting culture -IV fluids -TSH slightly low #Asthma -Continue home inhalers #Hypothyroidism -Continue Synthroid #GERD -Continue PPI #RLS -Continue ropinerole #Hypertension -Continue amlodipine, hold olmesartan as above #DVT ppx: heparin subcu Tory Porter MD Charges/Coding Visit Charges Inpatient E&M: 45730 Init Hosp L2
[2024-05-15] MEDS: 0.9% Normal Saline (1000mL) 1,000 ML 75 ML IV (22:23)
[2024-05-15] MEDS: Heparin Injection (Vial) 5,000 UNIT/ML VIAL 5000 UNIT SC (22:23)
[2024-05-15] MEDS: Fluticasone 0.05% 1 SPRAY NASAL.SRY 2 SPRAY NASAL (22:23)
[2024-05-15] MEDS: amLODIPine 10 MG Tablet PO (22:24)
[2024-05-15] MEDS: Atorvastatin Calcium 40 MG Tablet PO (22:24)
[2024-05-15] MEDS: Acetaminophen 325 MG Tablet 650 MG PO (22:26)
[2024-05-15] MEDS: Ipratropium/Albuterol Sulfate 3 ML AMPUL.NEB INHALATION (23:00)
[2024-05-16] VITALS (7 sets, daily range): BP systolic 135–156; BP diastolic 48–70; PULSE 84–93; RESP 15–18; TEMP 36.6–36.8; O2SAT 95–98
[2024-05-16] MEDS: Levothyroxine 100 MCG Tablet 200 MCG PO (05:31)
[2024-05-16] MEDS: Heparin Injection (Vial) 5,000 UNIT/ML VIAL 5000 UNIT SC ×3 (05:31→21:46)
[2024-05-16] MEDS: Acetaminophen 325 MG Tablet 650 MG PO (05:32)
[2024-05-16] MEDS: Ipratropium/Albuterol Sulfate 3 ML AMPUL.NEB INHALATION ×3 (06:47→19:37)
[2024-05-16] MEDS: Budesonide Respules 0.5 MG/2 ML AMPUL.NEB. INHALATION ×2 (06:47→19:37)
[2024-05-16 07:07] LABS: Absolute Lymphocyte Count 1.84 X10^3/uL (0.83-4.51); Absolute Neutrophil Count 9.8 X10^3/uL (2.0-7.7); Basophil# 0.09 X10^3/uL; Basophil% 0.7 % (0-1); Eosinophil# 0.53 X10^3/uL; Eosinophils% 3.9 % (0-5); Hematocrit 34.5 % (37-47); Hemoglobin 11.1 g/dL (12.0-15.0); Lymphocyte # 1.84 X10^3/ul (0.83-4.51); Lymphocyte % 13.5 % (19-41); Mean Corp Hgb Conc 32.2 g/dL (32-36); Mean Corpuscular Hgb 33.3 pg (27.0-32.0); Mean Corpuscular Volume 103.6 fL (81-99); Mean Platelet Vol. 11.6 fl (6.2-12.0); Monocyte# 1.31 X10^3/uL; Monocyte% 9.6 % (0-10); NRBC Flagged by Analyzer 0 % (0-5); Neutrophil # 9.83 X10^3/uL (2.7-7.7); Neutrophil % 71.9 % (47-70); Platelet Count 215 K/mm3 (150-450); RBC Distribution Width CV 12.6 % (11.6-14.6); RBC Distribution Width SD 47.8 fl (35.1-43.9); Red Blood Count 3.33 M/mm3 (4.2-5.4); White Blood Count 13.7 K/mm3 (4.4-11.0)
[2024-05-16 07:32] LABS: Anion Gap 5 (5-15); BUN 28 mg/dL (7-18); BUN/Creat Ratio 28.2 RATIO (10-20); Chloride 114 mmol/L (98-107); Creatinine, Serum 0.99 mg/dL (0.55-1.02); EST Glomerular Filtration Rate 57 mL/min (>60); Est Glom Filt Rate - Afr Amer 69 mL/min (>60); Estimated Creatinine Clearance 45.15 ml/min; Glucose 106 mg/dL (74-106); Sodium Level 142 mmol/L (136-145)
[2024-05-16] MEDS: Pramipexole Di-HCl 0.5 MG Tablet PO (07:47)
[2024-05-16] MEDS: Famotidine 20 MG Tablet 40 MG PO (07:47)
[2024-05-16] MEDS: Aspirin 81 MG TAB.CHEW PO (07:47)
[2024-05-16] MEDS: Pantoprazole Sodium 20 MG Tablet PO (07:47)
[2024-05-16] MEDS: Ceftriaxone 1 GM/50 ML BAG IV (09:23)
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
--- NOTE | 2024-05-16 11:31 | CASEMGMT ---
RN JAX notified Gabriel at [facility] that pt is hospitalized and pt would like to return to their services upon dc. Potential dc planned for tomorrow pending course of hospitalization.
--- NOTE | 2024-05-16 11:54 | PN.HOSP_ITS ---
Reason for Visit Reason for Visit: Diagnoses Acute kidney failure, unspecified (05/15/24) Subjective Subjective Saw patient at bedside this morning. Patient was sitting up comfortably in bed, conversing normally, in no acute distress. Stated that she felt moderately improved compared to yesterday. Denied any fevers or chills today. Stated she did feel slightly more tired than her normal but improved. No other acute concerns this morning. Objective Data Objective Data Vital Signs: Vital Signs Temp Pulse Resp BP Pulse Ox O2 Del Method 98.3 F 89 16 135/58 H 97 Room Air 05/16/24 07:43 05/16/24 07:43 05/16/24 07:43 05/16/24 07:43 05/16/24 07:43 05/16/24 07:43 Oxygen Delivery Method Room Air Weight: 75.7 kg Body Mass Index (BMI) 28.6 Intake & Output: Intake and Output for Last 24 Hours 05/14/24 05/15/24 05/16/24 23:59 23:59 23:59 Intake Total 1050 / 1050 875 / 875 Balance 1050 / 1050 875 / 875 Lab / Micro Data 05/16/24 06:02 05/16/24 06:02 Labs: Laboratory Results - last 24 hr 05/15/24 16:06: WBC 17.9 H, RBC 3.23 L, Hgb 11.1 L, Hct 33.6 L, MCV 104.0 H, MCH 34.4 H, MCHC 33.0, RDW Std Deviation 48.5 H, RDW Coeff of Taran 12.8, Plt Count 217, MPV 11.6, Sodium 139, Potassium 4.4, Chloride 108 H, Carbon Dioxide 24.0, Anion Gap 7, BUN 36 H, Creatinine 1.85 H, Estim Creat Clear Calc 24.19, Est GFR (MDRD) Af Amer 34 L, Est GFR (MDRD) Non-Af 28 L, BUN/Creatinine Ratio 19.5, Glucose 97, Calcium 9.1, Total Bilirubin 0.40, Direct Bilirubin 0.16, AST 20, ALT 32, Alkaline Phosphatase 95, Troponin I High Sens 11, Total Protein 6.4, Albumin 3.5, Globulin 2.9, Lipase 33, TSH 0.117 L, Free T4 1.48 H, Free T3 pg/dL 2.3 05/15/24 16:17: Urine Color Yellow, Urine Clarity Cloudy, Urine pH 5.0, Ur Specific [place] 1.020, Urine Protein 30 H, Urine Glucose (UA) Normal, Urine Ketones Negative, Urine Occult Blood 25 H, Urine Nitrite Negative, Urine Bilirubin Negative, Urine Urobilinogen 1 H, Ur Leukocyte Esterase 500 H, Urine RBC 0 SEEN, Urine WBC 50-100 SEEN, Ur Squamous Epith Cells > 100 SEEN, Calcium Oxalate Crystal 1+, Urine Bacteria 3+, Urine Mucus 0 SEEN 05/16/24 06:02: WBC 13.7 H, RBC 3.33 L, Hgb 11.1 L, Hct 34.5 L, MCV 103.6 H, MCH 33.3 H, MCHC 32.2, RDW Std Deviation 47.8 H, RDW Coeff of Taran 12.6, Plt Count 215, MPV 11.6, Immature Gran % (Auto) 0.400, Neut % (Auto) 71.9 H, Lymph % (Auto) 13.5 L, Cobb % (Auto) 9.6, Eos % (Auto) 3.9, Baso % (Auto) 0.7, Absolute Neuts (auto) 9.8 H, Absolute Lymphs (auto) 1.84, Nucleated RBC % 0, Sodium 142, Potassium 4.0, Chloride 114 H, Carbon Dioxide 23.0, Anion Gap 5, BUN 28 H, Creatinine 0.99, Estim Creat Clear Calc 45.15, Est GFR (MDRD) Af Amer 69, Est GFR (MDRD) Non-Af 57 L, BUN/Creatinine Ratio 28.2 H, Glucose 106, Calcium 9.0 Micro: Microbiology 05/15/24 16:17 Urine, Clean Catch Urine Culture - Preliminary Streptococcus group B 05/15/24 15:40 Mucosa - Nose SARS-CoV-2, Influenza & RSV (PCR) - Final Radiography Diagnostic Testing: Radiology Impression Chest X-Ray 05/15/24 16:20 IMPRESSION: No acute cardiopulmonary abnormality. Electronically Signed: Kvng Flores MD at 16:33 EST , Physical Exam Const alert, oriented x3, no apparent distress and average body habitus Constitutional Narrative: Elderly female, mildly fatigued appearing, otherwise sitting up comfortably in bed, conversing normally, in no acute distress. General Appearance: cooperative and comfortable HEENT normocephalic, head/scalp atraumatic, hearing grossly normal bilaterally, nasal mucous membranes and turbinates normal and moist oral mucous membranes Eyes PERRL, EOMs intact bilaterally and conjunctivae normal Neck full ROM Chest inspection of chest normal Resp normal respiratory effort, normal air movement, no use of accessory muscles and clear to auscultation bilaterally Cardio regular rate, regular rhythm, no murmurs and peripheral pulses 2+ throughout GI normal to inspection, nondistended, normoactive bowel sounds, soft to palpation, non-tender and non-distended Back/Spine normal ROM Extremity normal to inspection, full ROM and no pedal edema Skin no rashes or lesions noted Psych mental status grossly normal Assessment & Plan Assessment/Plan (1) YASMANY (acute kidney injury): (2) UTI (urinary tract infection): PLAN: Plan Patient is an 78-year-old female who presented [facility] ED on 05/15/2024 with fever/chills and fatigue. 1. YASMANY, resolved ? Creatinine 1.85 on admission, baseline around 1. Creatinine improved back to baseline on hospital day 2 after IV fluid administration. Presumed prerenal YASMANY from UTI versus dehydration. No need to monitor further BMPs while inpatient. 2. Concern for UTI ? WBC count 17K, UA mildly positive and subjective fever/chills noted on admission. Urine culture pending. Will continue IV ceftriaxone for now. WBC count downtrending on hospital day 2. Patient will likely be okay for discharge home tomorrow on oral antibiotics once urine culture has resulted. 3. Fatigue with excessive sleepiness, improving ? Likely due to patient's gabapentin with decreased clearance due to YASMANY. TSH mildly low but low suspicion this is playing a role. Much improved on hospital day 2. Continue to monitor. Chronic medical conditions: ? Asthma: Stable, not in exacerbation. Continue home inhalers. ? Hypothyroidism: TSH mildly low, free T4 mildly elevated on admit. Can continue home Synthroid for now and defer to PCP for dose adjustment as needed. ? GERD: Continue home PPI. ? RLS: Continue home ropinirole. ? Hypertension: Continue home amlodipine. Will restart home losartan on 05/17. DVT prophylaxis: Heparin subcu CODE STATUS: DNR CCA, DNI Expected disposition: Home, 1 to 2 days Total clinical time spent by myself addressing the patient's medical issues, reviewing all the data, and collaborating with patient's care team: 35 minutes. Charges/Coding Visit Charges Inpatient E&M: 10601 Subs Hosp L2
[2024-05-16] MEDS: 0.9% Saline Lock 10 ML Syringe IV (12:03)
[2024-05-16] MEDS: Loperamide 2 MG Capsule PO (17:16)
[2024-05-16] MEDS: Fluticasone 0.05% 1 SPRAY NASAL.SRY 2 SPRAY NASAL (21:46)
[2024-05-16] MEDS: amLODIPine 10 MG Tablet PO (21:46)
[2024-05-16] MEDS: Atorvastatin Calcium 40 MG Tablet PO (21:47)
[2024-05-17 03:39] VITALS: BP 135/63; PULSE 90; RESP 15; TEMP 37.1; O2SAT 97
[2024-05-17] MEDS: Levothyroxine 100 MCG Tablet 200 MCG PO (05:52)
[2024-05-17] MEDS: Heparin Injection (Vial) 5,000 UNIT/ML VIAL 5000 UNIT SC (05:53)
[2024-05-17 07:08] VITALS: PULSE 75; RESP 17
[2024-05-17] MEDS: Ipratropium/Albuterol Sulfate 3 ML AMPUL.NEB INHALATION (07:08)
[2024-05-17] MEDS: Budesonide Respules 0.5 MG/2 ML AMPUL.NEB. INHALATION (07:08)
[2024-05-17 07:59] VITALS: BP 130/67; PULSE 85; RESP 16; TEMP 36.5; O2SAT 97
[2024-05-17] MEDS: Aspirin 81 MG TAB.CHEW PO (08:11)
[2024-05-17] MEDS: Pramipexole Di-HCl 0.5 MG Tablet PO (09:53)
[2024-05-17] MEDS: Ceftriaxone 1 GM/50 ML BAG IV (09:53)
[2024-05-17] MEDS: Famotidine 20 MG Tablet 40 MG PO (09:53)
[2024-05-17] MEDS: Pantoprazole Sodium 20 MG Tablet PO (09:53)
[2024-05-17] MEDS: 0.9% Saline Lock 10 ML Syringe IV (09:55)
--- NOTE | 2024-05-17 10:25 | PCM.DC ---
Discharge Instructions Diet Discharge Diet: No restrictions Activity Discharge Activity: Return to Normal Activity Weight Bearing Status: Weight bearing as tolerated Dressing / Incision Call your doctor if you observe: Fever of 101 or Higher, Coldness, Increased Pain, Numbness or Tingling, Change in Color, Inability to urinate, Inability to have a bowel movement, Shortness of breath, Dizziness, Fainting spells, Swelling in the ankles, Chest pain, Prolonged hiccupping, Increased palpitations (irregular heartbeat) and Calf discomfort Follow Up Care When: IN 2 WEEKS Test Results: Test results from this visit will be discussed in further detail at your follow-up appointment, if applicable. Discharge Plan Admission Admit Date/Time: 05/15/24 19:26 Primary Reason for Your Visit: YASMANY probably from prerenal, NSAIDs Attending Provider: Mg Acevedo Primary Care Provider: Marcelle Magaña Consulting Providers: Tory Porter; Nahum Schwab Instructions Additional Instructions / Restrictions: Probiotics [id number] suggested. Lactobacillus/acidophilus 1 tablet twice daily for 1 week. Possible antibiotic associated diarrhea. The stool is currently solid and formed therefore does not qualify for C. difficile testing Discharge Orders/Prescriptions Prescriptions: Continued loperamide 2 mg tablet 2 mg PO Q6H PRN (Reason: nausea and vomiting) ascorbic acid (vitamin C) 1,000 mg capsule 0.5 g PO DAILY acetaminophen [Tylenol] 325 mg capsule 650 mg PO Q6H PRN (Reason: fever or pain) mecobalamin (vitamin B12) 1,000 mcg tablet,chewable 1,000 mcg PO DAILY Qty: 30 2RF guaifenesin [Mucinex] 600 mg tablet extended release 12hr 600 mg PO BID PRN (Reason: cough) cetirizine 10 mg tablet 10 mg PO DAILY PRN (Reason: allergy symptoms) Qty: 30 3RF triamcinolone acetonide [Nasacort] 55 mcg Aerosol,[place] 1 spray INTRANASAL QHS PRN (Reason: allergy symptoms) albuterol sulfate 90 mcg/actuation HFA aerosol inhaler 2 puff INHALATION Q6H PRN (Reason: sob) cholecalciferol (vitamin D3) [Vitamin D3] 25 mcg (1,000 unit) Tablet 25 mcg PO DAILY hydrocodone-acetaminophen 5-325 mg tablet 1 tab PO Q8H PRN (Reason: Pain) Patient Comments: TAKE 1 TABLET BY MOUTH TWICE DAILY NEEDED FOR 28 DAYS fluticasone propion-salmeterol [Wixela Inhub] 500-50 mcg/dose blister with device 1 ea INHALATION BID Galzin 50 mg (zinc) capsule 50 mg PO DAILY sennosides [senna] 8.6 mg tablet 17.2 mg PO BID PRN (Reason: constipation) ammonium lactate 12 % lotion 1 applic topical BID PRN (Reason: dry skin) ropinirole 0.5 mg tablet 1 mg PO DAILY dicyclomine 10 mg capsule 10 mg PO BID PRN (Reason: abdominal pain) rosuvastatin 20 mg tablet 20 mg PO DAILY amlodipine 10 mg tablet See Rx Instructions .ROUTE .COMPLEX Qty: 90 1RF Dose Instruction: TAKE 1 TABLET BY MOUTH EVERY DAY AT BEDTIME Rx Instructions: TAKE 1 TABLET BY MOUTH EVERY DAY AT BEDTIME aspirin 81 mg tablet,chewable 81 mg PO DAILY Qty: 30 0RF gabapentin 300 mg capsule 300 mg PO QHS Qty: 30 2RF famotidine 40 mg tablet 40 mg PO DAILY Qty: 90 0RF levothyroxine 200 mcg tablet 200 mcg PO DAILY Qty: 90 1RF ferrous sulfate 325 mg (65 mg iron) tablet 325 mg PO DAILY Qty: 90 0RF mirtazapine 7.5 mg tablet 7.5 mg PO QHS Qty: 90 0RF pantoprazole 20 mg tablet,delayed release (DR/EC) 20 mg PO DAILY Qty: 60 0RF Held meloxicam 15 mg tablet 7.5 mg PO BID Hold Instructions: Hold for 5 days. olmesartan 20 mg tablet 20 mg PO DAILY Qty: 90 1RF Hold Instructions: Hold for 3 days and restart at lower dose Referrals / Follow Up: Marcelle Magaña MD [Primary Care Provider] - Disposition Disposition (needs filled in before D/C Order can be placed): Home, Self Care
--- NOTE | 2024-05-17 11:50 | NURSING ---
pt states she would like to leave AMA, educated on risks/ramifications of leaving AMA. pt is agreeable to stay to see MD after discussion and reaching out to MD.
--- NOTE | 2024-05-17 12:07 | PCM.DC.SUM ---
Providers Date of Admission: 05/15/24 Date of Discharge: 05/17/24 Primary Care Physician: Dr. Marcelle Magaña MD Reason For Visit: FATIGUED, CHILLS Diagnosis Discharge Diagnosis (1) YASMANY (acute kidney injury): Status: Resolved Code(s): N17.9 - Acute kidney failure, unspecified (2) UTI (urinary tract infection): Status: Acute Code(s): N39.0 - Urinary tract infection, site not specified Plan Patient is an 78-year-old female who presented [facility] ED on 05/15/2024 with fever/chills and fatigue. 1. YASMANY, resolved ? Creatinine 1.85 on admission, baseline around 1. Creatinine improved back to baseline on hospital day 2 after IV fluid administration. Creatinine 0.9. YASMANY probably due to NSAID/dehydration. 2. UTI ruled out. ? WBC count 17K, subjective fever/chills noted on admission. Urine culture shows strep group B 50,000?80,000. UA showed squamous epithelium more than 100 cells, LE 500, WBC 50?100 cells, nitrite negative. UTI ruled out. Patient did not had symptoms of burning micturition increased frequency or urgency. Patient had empiric IV ceftriaxone during hospital stay. She also had loose bowel movement yesterday but today it was solid and well-formed therefore does not qualify for C. difficile testing. Antibiotic discontinued. Lactobacillus [id number] ordered. 3. Fatigue with excessive sleepiness, improving ? Likely due to patient's gabapentin with decreased clearance due to YASMANY. TSH mildly low but low suspicion this is playing a role. Much improved on hospital day 2. Continue to monitor. Chronic medical conditions: ? Asthma: Stable, not in exacerbation. Continue home inhalers. ? Hypothyroidism: TSH mildly low, free T4 mildly elevated on admit. Can continue home Synthroid for now and defer to PCP for dose adjustment as needed. ? GERD: Continue home PPI. ? RLS: Continue home ropinirole. ? Hypertension: Continue home amlodipine. Will restart home losartan on 05/17. DVT prophylaxis: Heparin subcu CODE STATUS: DNR CCA, DNI Discharge medication reconciliation done. Discharge follow-up instructions completed. Discharge process discussed with the patient and all questions were answered to patient's satisfaction. Follow with PCP in 1 to 2 weeks Total time spent, exact 35 minutes on discharge meds reconciliation, examination, coordination of care with nurses and ancillary staff, review of imaging and blood test and discussion with the patient on follow-up instructions. Medications at Discharge Home Medications albuterol sulfate 90 mcg/actuation aerosol inhaler 2 puff inhalation Q6H PRN sob 11/29/21 cholecalciferol (vitamin D3) 25 mcg (1,000 unit) tablet (Vitamin D3) 25 mcg PO DAILY 11/29/21 triamcinolone acetonide 55 mcg nasal spray aerosol (Nasacort) 1 spray intranasal QHS PRN allergy symptoms 11/29/21 loperamide 2 mg tablet 2 mg PO Q6H PRN nausea and vomiting 01/10/23 guaifenesin 600 mg tablet, extended release 12 hr (Mucinex) 600 mg PO BID PRN cough 06/15/23 mecobalamin (vitamin B12) 1,000 mcg chewable tablet 1,000 mcg PO DAILY #30 tabs 07/21/23 amlodipine 10 mg tablet See Rx Instructions .Route .COMPLEX #90 tabs 11/25/23 aspirin 81 mg chewable tablet 81 mg PO DAILY #30 tabs 12/22/23 gabapentin 300 mg capsule 300 mg PO QHS #30 caps 02/01/24 fluticasone 500 mcg-salmeterol 50 mcg/dose blistr powdr for inhalation (Jayla Pinto) 1 ea inhalation BID 03/02/24 famotidine 40 mg tablet 40 mg PO DAILY #90 tabs 03/13/24 olmesartan 20 mg tablet 20 mg PO DAILY #90 TABLETS 03/14/24 levothyroxine 200 mcg tablet 200 mcg PO DAILY #90 tabs 03/22/24 ferrous sulfate 325 mg (65 mg iron) tablet 325 mg PO DAILY Supplement #90 tabs 04/16/24 mirtazapine 7.5 mg tablet 7.5 mg PO QHS #90 tabs 04/16/24 pantoprazole 20 mg tablet,delayed release 20 mg PO DAILY #60 tabs 04/16/24 acetaminophen 325 mg capsule (Tylenol) 650 mg PO Q6H PRN fever or pain 04/27/24 ascorbic acid (vitamin C) 1,000 mg capsule 0.5 g PO DAILY 04/27/24 hydrocodone-acetaminophen 5-325mg 5mg-325mg 1 tab PO Q8H PRN Pain 04/27/24 cetirizine 10 mg tablet 10 mg PO DAILY PRN allergy symptoms #30 TABLETS 05/08/24 ammonium lactate 12 % lotion 1 applic topical BID PRN dry skin 05/15/24 dicyclomine 10 mg capsule 10 mg PO BID PRN abdominal pain 05/15/24 meloxicam 15 mg tablet 7.5 mg PO BID 05/15/24 ropinirole 0.5 mg tablet 1 mg PO DAILY 05/15/24 rosuvastatin 20 mg tablet 20 mg PO DAILY 05/15/24 sennosides 8.6 mg tablet (senna) 17.2 mg PO BID PRN constipation 05/15/24 zinc acetate 50 mg (zinc) capsule (Galzin) 50 mg PO DAILY 05/15/24 Physical Exam Narrative Seen and examined. Loose bowel movement yesterday got better. Today in the morning she had formed stool. No blood or mucus. Wants to go home. Physical exam General: Alert, Oriented x3, Cooperative HEENT: Atraumatic, PERRLA, EOMI, Normocephalic Oral: No Gingival or Mucosal Lesions/ Ulcerations Neck: Supple, No JVD, Negative Carotid Bruits Chest wall/Lungs: Air entry diminished in bilateral lung bases. No crepitation/rhonchi Cardiovascular: Regular rate, Regular Rhythm, Normal S1, Normal S2, No M/G/R Abdomen: Bowel Sounds Present, Soft, Non Tender, Non-Distended : No dysuria. No renal angle tenderness. No suprapubic tenderness. Extremities: No edema, Capillary Refill Less than 3 Seconds Skin: No rashes, No breakdown Musculoskeletal: No Tenderness to Palpation of Joints or Extremities Neurological: Cranial nerves II-XII grossly intact, DTR 2+/4. No acute focal neurological deficit. Psych/Mental Status: Normal Affect, Appropriate. Weight / BMI Weight Weight: 166 lb 14.239 oz Body Mass Index (BMI) 28.6 ABG / Lab / Microbiology Data 05/16/24 06:02 05/16/24 06:02 Microbiology: Microbiology 05/15/24 16:17 Urine, Clean Catch Urine Culture - Preliminary Streptococcus group B 05/15/24 15:40 Mucosa - Nose SARS-CoV-2, Influenza & RSV (PCR) - Final D/C Instructions Discharge Diet: No restrictions Weight Bearing Status: Weight bearing as tolerated Call your doctor if you observe: Fever of 101 or Higher, Coldness, Increased Pain, Numbness or Tingling, Change in Color, Inability to urinate, Inability to have a bowel movement, Shortness of breath, Dizziness, Fainting spells, Swelling in the ankles, Chest pain, Prolonged hiccupping, Increased palpitations (irregular heartbeat) and Calf discomfort When: IN 2 WEEKS Meaningful Use Info Meaningful Use Meaningful Use Diagnoses (Choose all that apply): None applicable Ischemic Stroke Statin Dosing Therapy Reference: STATIN DOSE THERAPY REFERENCE: * Patients > 75 years receive moderate or high dose statin therapy. * Patients 75 years or YOUNGER should receive HIGH intensity statin dose unless contraindicated. You will be required to document reason for non-treatment if statin daily dose does not meet guidelines. HIGH DOSE STATIN THERAPY DAILY Atorvastatin > than or = to 40 mg Rosuvastatin > than or = to 20 mg Amlodipine + Atorvastatin > than or = to 2.5/40 mg Ezetimibe + Simvastatin 10/80 mg Simvastatin 80mg Discharge Plan Admission Admit Date/Time: 05/15/24 19:26 Primary Reason for Your Visit: YASMANY probably from prerenal, NSAIDs Attending Provider: Mg Acevedo Primary Care Provider: Marcelle Magaña Consulting Providers: Tory Porter; Nahum Schwab Instructions Additional Instructions / Restrictions: Probiotics [id number] suggested. Lactobacillus/acidophilus 1 tablet twice daily for 1 week. Possible antibiotic associated diarrhea. The stool is currently solid and formed therefore does not qualify for C. difficile testing Discharge Orders/Prescriptions Prescriptions: Continued loperamide 2 mg tablet 2 mg PO Q6H PRN (Reason: nausea and vomiting) ascorbic acid (vitamin C) 1,000 mg capsule 0.5 g PO DAILY acetaminophen [Tylenol] 325 mg capsule 650 mg PO Q6H PRN (Reason: fever or pain) mecobalamin (vitamin B12) 1,000 mcg tablet,chewable 1,000 mcg PO DAILY Qty: 30 2RF guaifenesin [Mucinex] 600 mg tablet extended release 12hr 600 mg PO BID PRN (Reason: cough) cetirizine 10 mg tablet 10 mg PO DAILY PRN (Reason: allergy symptoms) Qty: 30 3RF triamcinolone acetonide [Nasacort] 55 mcg Aerosol,[place] 1 spray INTRANASAL QHS PRN (Reason: allergy symptoms) albuterol sulfate 90 mcg/actuation HFA aerosol inhaler 2 puff INHALATION Q6H PRN (Reason: sob) cholecalciferol (vitamin D3) [Vitamin D3] 25 mcg (1,000 unit) Tablet 25 mcg PO DAILY hydrocodone-acetaminophen 5-325 mg tablet 1 tab PO Q8H PRN (Reason: Pain) Patient Comments: TAKE 1 TABLET BY MOUTH TWICE DAILY NEEDED FOR 28 DAYS fluticasone propion-salmeterol [Wixela Inhub] 500-50 mcg/dose blister with device 1 ea INHALATION BID Galzin 50 mg (zinc) capsule 50 mg PO DAILY sennosides [senna] 8.6 mg tablet 17.2 mg PO BID PRN (Reason: constipation) ammonium lactate 12 % lotion 1 applic topical BID PRN (Reason: dry skin) ropinirole 0.5 mg tablet 1 mg PO DAILY dicyclomine 10 mg capsule 10 mg PO BID PRN (Reason: abdominal pain) rosuvastatin 20 mg tablet 20 mg PO DAILY amlodipine 10 mg tablet See Rx Instructions .ROUTE .COMPLEX Qty: 90 1RF Dose Instruction: TAKE 1 TABLET BY MOUTH EVERY DAY AT BEDTIME Rx Instructions: TAKE 1 TABLET BY MOUTH EVERY DAY AT BEDTIME aspirin 81 mg tablet,chewable 81 mg PO DAILY Qty: 30 0RF gabapentin 300 mg capsule 300 mg PO QHS Qty: 30 2RF famotidine 40 mg tablet 40 mg PO DAILY Qty: 90 0RF levothyroxine 200 mcg tablet 200 mcg PO DAILY Qty: 90 1RF ferrous sulfate 325 mg (65 mg iron) tablet 325 mg PO DAILY Qty: 90 0RF mirtazapine 7.5 mg tablet 7.5 mg PO QHS Qty: 90 0RF pantoprazole 20 mg tablet,delayed release (DR/EC) 20 mg PO DAILY Qty: 60 0RF Held meloxicam 15 mg tablet 7.5 mg PO BID Hold Instructions: Hold for 5 days. olmesartan 20 mg tablet 20 mg PO DAILY Qty: 90 1RF Hold Instructions: Hold for 3 days and restart at lower dose Referrals / Follow Up: Marcelle Magaña MD [Primary Care Provider] - Disposition Disposition (needs filled in before D/C Order can be placed): Home, Self Care Charges/Coding Visit Charges Inpatient E&M: 46934 Disch Hosp >30min
--- NOTE | 2024-05-17 12:10 | CASEMGMT ---
RN CM into pt room, pt dressed and up in room. She states that her neighbor is going to transport her home and she does not need the hospital van. Pt denies any homegoing needs. CCN to resume care. Message to Gabriel that pt is dc'ing today.
--- NOTE | 2024-05-17 12:20 | PHA.DC.MR.R ---
Pharmacy [place] Med Reconciliation Pharmacy Service has performed discharge medication reconciliation for this patient. The patient's discharge medication list was reviewed for discrepancies and discrepancies were resolved. Medications at Discharge Home Medications albuterol sulfate 90 mcg/actuation aerosol inhaler 2 puff inhalation Q6H PRN sob 11/29/21 cholecalciferol (vitamin D3) 25 mcg (1,000 unit) tablet (Vitamin D3) 25 mcg PO DAILY 11/29/21 triamcinolone acetonide 55 mcg nasal spray aerosol (Nasacort) 1 spray intranasal QHS PRN allergy symptoms 11/29/21 loperamide 2 mg tablet 2 mg PO Q6H PRN nausea and vomiting 01/10/23 guaifenesin 600 mg tablet, extended release 12 hr (Mucinex) 600 mg PO BID PRN cough 06/15/23 mecobalamin (vitamin B12) 1,000 mcg chewable tablet 1,000 mcg PO DAILY #30 tabs 07/21/23 amlodipine 10 mg tablet See Rx Instructions .Route .COMPLEX #90 tabs 11/25/23 aspirin 81 mg chewable tablet 81 mg PO DAILY #30 tabs 12/22/23 gabapentin 300 mg capsule 300 mg PO QHS #30 caps 02/01/24 fluticasone 500 mcg-salmeterol 50 mcg/dose blistr powdr for inhalation (Jayla Pinto) 1 ea inhalation BID 03/02/24 famotidine 40 mg tablet 40 mg PO DAILY #90 tabs 03/13/24 olmesartan 20 mg tablet 20 mg PO DAILY #90 TABLETS 03/14/24 levothyroxine 200 mcg tablet 200 mcg PO DAILY #90 tabs 03/22/24 ferrous sulfate 325 mg (65 mg iron) tablet 325 mg PO DAILY Supplement #90 tabs 04/16/24 mirtazapine 7.5 mg tablet 7.5 mg PO QHS #90 tabs 04/16/24 pantoprazole 20 mg tablet,delayed release 20 mg PO DAILY #60 tabs 04/16/24 acetaminophen 325 mg capsule (Tylenol) 650 mg PO Q6H PRN fever or pain 04/27/24 ascorbic acid (vitamin C) 1,000 mg capsule 0.5 g PO DAILY 04/27/24 hydrocodone-acetaminophen 5-325mg 5mg-325mg 1 tab PO Q8H PRN Pain 04/27/24 cetirizine 10 mg tablet 10 mg PO DAILY PRN allergy symptoms #30 TABLETS 05/08/24 ammonium lactate 12 % lotion 1 applic topical BID PRN dry skin 05/15/24 dicyclomine 10 mg capsule 10 mg PO BID PRN abdominal pain 05/15/24 meloxicam 15 mg tablet 7.5 mg PO BID 05/15/24 ropinirole 0.5 mg tablet 1 mg PO DAILY 05/15/24 rosuvastatin 20 mg tablet 20 mg PO DAILY 05/15/24 sennosides 8.6 mg tablet (senna) 17.2 mg PO BID PRN constipation 05/15/24 zinc acetate 50 mg (zinc) capsule (Galzin) 50 mg PO DAILY 05/15/24
== END 2024-05-17 12:54 | disposition home or self-care (01) | DRG 641 ==
LOC: ED 19:28 → MS3 20:33
PROVIDERS: Admitting Provider Internal Medicine; Emergency Provider Emergency Medicine; PCP Internal Medicine; Visit Provider Internal Medicine
DX: E86.0 Dehydration (principal); N17.9 Acute kidney failure, unspecified; Z66 Do not resuscitate; E11.9 Type 2 diabetes mellitus without complications; E03.9 Hypothyroidism, unspecified; I10 Essential (primary) hypertension; J45.909 Unspecified asthma, uncomplicated; K21.9 Gastro-esophageal reflux disease without esophagitis; M54.50 Low back pain, unspecified; E78.5 Hyperlipidemia, unspecified; Z79.2 Long term (current) use of antibiotics; Z79.82 Long term (current) use of aspirin; G89.29 Other chronic pain
CPT/HCPCS: 36415; 71045; 80048; 80076; 81001; 83690; 84439; 84443; 84481; 84484; 85025; 85027; 87077; 87086; 87088; 87186; 87631; 93005; 94640; 97162; 97166; 99284; J7030; A4216

== ENCOUNTER 2024-05-28 19:26 | Emergency (ER) | payer MEDICARE, SELFPAY ==
[2024-05-28 19:28] VITALS: BP 157/73; PULSE 96; RESP 15; TEMP 36.9; O2SAT 96
[2024-05-28 20:07] VITALS: BMI 29.5
--- NOTE | 2024-05-28 20:07 | EKG12_ITS ---
Test Reason : N/V/D Blood Pressure : */* mmHG Vent. Rate : 94 BPM Atrial Rate : 94 BPM P-R Int : 164 ms QRS Dur : 84 ms QT Int : 350 ms P-R-T Axes : 58 -26 55 degrees QTcB Int : 437 ms Normal sinus rhythm Left ventricular hypertrophy with repolarization abnormality ( R in aVL , Yordan product , Romhilt-E stes ) Abnormal ECG Confirmed by CHRIS SAUCEDA, MARQUES ([id number]), telegraph editor DOROTEO HERNANDEZ ([id number]) on 05/29/2024 1:53:14 PM Referred By: Confirmed By: MARQUES PEREZ MD
--- NOTE | 2024-05-28 20:09 | EX.ED.DYSGE1 ---
HPI History of Present Illness Chief Complaint: Nausea/Vomiting/Diarrhea Narrative Narrative: Patient is a 78-year-old female with a past medical history of hypertension, GERD, type 2 diabetes, hypothyroidism who presents to the emergency department chief complaint of nausea vomiting not feeling well. States that this morning she woke up and was not feeling well and as the morning went on she developed nausea vomiting that progressed throughout the rest of the day prompting her to come here for further evaluation management. Patient denies any recent sick contacts. Patient's states that she was sweating at home and has chills but denies any known fever. [facility] Medical History Post-menopausal History of steroid therapy Arthritis Excessive bleeding Back pain Difficulty swallowing History of diverticulitis Gastric reflux History of echocardiogram Cardiology follow-up encounter Type 2 diabetes mellitus Vasovagal syncope Essential hypertension Bradycardia Hypothyroidism Hyperlipidemia Osteoarthritis Debility Wears glasses Wears dentures Thyroid disease Easy bruising Shortness of breath on exertion Leg cramps History of edema History of rheumatic fever Localized edema Bleeding tendency Injury of head and neck Chronic pain Gastroesophageal reflux disease Leukocytosis Diabetes mellitus Lumbar spinal stenosis Right lumbar radiculopathy Allergic rhinitis Vitamin B12 deficiency Restless leg syndrome Bilateral sacral insufficiency fracture with delayed healing History of colon polyps Asthma Chronic low back pain Home Medications ?Medication ?Instructions ?Recorded ?Last Taken ?Type albuterol sulfate 90 mcg/actuation 2 puff inhalation Q6H PRN sob 11/29/21 03/07/24 History aerosol inhaler cholecalciferol (vitamin D3) 25 25 mcg PO DAILY 11/29/21 05/14/24 History mcg (1,000 unit) tablet (Vitamin D3) triamcinolone acetonide 55 mcg 1 spray intranasal QHS PRN allergy 11/29/21 03/06/24 History nasal spray aerosol (Nasacort) symptoms loperamide 2 mg tablet 2 mg PO Q6H PRN nausea and vomiting 01/10/23 Unknown History guaifenesin 600 mg tablet, 600 mg PO BID PRN cough 06/15/23 Unknown History extended release 12 hr (Mucinex) mecobalamin (vitamin B12) 1,000 1,000 mcg PO DAILY #30 tabs 07/21/23 05/14/24 Rx mcg chewable tablet amlodipine 10 mg tablet See Rx Instructions .Route 11/25/23 05/14/24 Rx .COMPLEX #90 tabs aspirin 81 mg chewable tablet 81 mg PO DAILY #30 tabs 12/22/23 05/14/24 Rx gabapentin 300 mg capsule 300 mg PO QHS #30 caps 02/01/24 05/14/24 Rx fluticasone 500 mcg-salmeterol 50 1 ea inhalation BID 03/02/24 05/14/24 History mcg/dose blistr powdr for inhalation (Jayla Pinto) famotidine 40 mg tablet 40 mg PO DAILY #90 tabs 03/13/24 05/14/24 Rx olmesartan 20 mg tablet 20 mg PO DAILY #90 TABLETS 03/14/24 05/14/24 Rx levothyroxine 200 mcg tablet 200 mcg PO DAILY #90 tabs 03/22/24 05/14/24 Rx ferrous sulfate 325 mg (65 mg 325 mg PO DAILY Supplement #90 tabs 04/16/24 05/14/24 Rx iron) tablet mirtazapine 7.5 mg tablet 7.5 mg PO QHS #90 tabs 04/16/24 05/14/24 Rx pantoprazole 20 mg tablet,delayed 20 mg PO DAILY #60 tabs 04/16/24 05/14/24 Rx release acetaminophen 325 mg capsule 650 mg PO Q6H PRN fever or pain 04/27/24 Unknown History (Tylenol) ascorbic acid (vitamin C) 1,000 mg 0.5 g PO DAILY 04/27/24 05/14/24 History capsule hydrocodone-acetaminophen 5-325mg 1 tab PO Q8H PRN Pain 04/27/24 Unknown History 5mg-325mg cetirizine 10 mg tablet 10 mg PO DAILY PRN allergy 05/08/24 Unknown Rx symptoms #30 TABLETS ammonium lactate 12 % lotion 1 applic topical BID PRN dry skin 05/15/24 Unknown History dicyclomine 10 mg capsule 10 mg PO BID PRN abdominal pain 05/15/24 Unknown History meloxicam 15 mg tablet 7.5 mg PO BID 05/15/24 05/14/24 History ropinirole 0.5 mg tablet 1 mg PO DAILY 05/15/24 05/14/24 History rosuvastatin 20 mg tablet 20 mg PO DAILY 05/15/24 05/14/24 History sennosides 8.6 mg tablet (senna) 17.2 mg PO BID PRN constipation 05/15/24 Unknown History zinc acetate 50 mg (zinc) capsule 50 mg PO DAILY 05/15/24 05/14/24 History (Galzin) ondansetron 4 mg disintegrating 4 mg PO Q6H PRN nausea and 05/28/24 Unknown Rx tablet vomiting #20 tabs Allergy/AdvReac Type Severity Reaction Status Date / Time clindamycin Allergy Mild rash Verified 05/28/24 19:28 codeine phosphate (From AdvReac Severe Nausea Verified 05/28/24 19:28 Tylenol-Codeine #3) Family History Mother Heart valve disorder Hypertension Heart disease Father Pneumococcal pneumonia CVA (cerebral vascular accident) Heart disease Myocardial infarction CABG Daughter Diabetes Grandmother Diabetes Surgical History History of total shoulder replacement Status post reverse total arthroplasty of left shoulder Hx of lumbar discectomy Hx of decompressive lumbar laminectomy History of cardiac catheterization Hx of total hip arthroplasty History of colonoscopy (2012) history of pain stimulator History of bilateral carpal tunnel release History of loop recorder (2012) History of appendectomy History of hysterectomy Hx of tonsillectomy Social History household members: none housing: apartment number of children: 2 current occupational status: retired current occupation: worked at [employer] current occupational exposures/hazards: No pets and animals: No leisure activities: exercise and volunteer work Smoking Status: Never smoker Electronic Cigarette Use: not used alcohol intake: never substance use type: does not use what type of physical activity do you participate in: walking frequency: 3-4 times per week do you feel safe at home: Yes additional social history: daughter lives nearby ROS ROS ED ROS Narrative Constitutional: Complains of chills noted above denies fevers, headaches, lightness, dizziness Eyes: Denies change in vision double vision blurry vision Cardiovascular: Denies chest pain or palpitations Respiratory: Denies coughing wheezing shortness of breath Abdomen: Complains of nausea vomiting as noted above denies any abdominal pain : Denies any urinary symptoms Neurological: Denies numbness, weakness, tingling Musculoskeletal: Denies back pain Skin: Denies rashes or lesions EXAM Physical Exam Narrative Exam Narrative: General: Patient lying in bed rest comfortably did not appear to be in acute distress Head: Atraumatic, normocephalic Eyes: PERRL bilateral, EOMI bladder, no conjunctival injection noted Neck: Soft, supple, trachea midline Cardiovascular: Regular rate and rhythm no murmurs gallops rubs noted Respiratory: Clear to auscultation bilaterally no rales rhonchi or wheezes noted Abdomen: Soft, nondistended, nontender to palpation, bowel sounds present in 4 Extremities: +5/5 strength noted in the bilateral upper and lower extremities, no pedal edema noted exam Neurological: Patient is following commands knew that she was at [facility] there is 2023 Skin: Warm, dry, intact Const Vital Signs: 05/28/24 19:28 05/28/24 21:27 05/28/24 21:45 Temperature 98.4 F 99.2 F H Temperature Source Oral Oral Pulse Rate 96 82 Respiratory Rate 15 18 Blood Pressure 157/73 H 136/46 H Blood Pressure Mean 101 76 Pulse Ox 96 Oxygen Delivery Method Room Air 05/28/24 22:09 Temperature 99.2 F H Temperature Source Pulse Rate 82 Respiratory Rate 16 Blood Pressure 151/97 H Blood Pressure Mean 115 Pulse Ox 91 Oxygen Delivery Method MDM MDM MDM Narrative Medical decision making narrative: Patient is a 78-year-old female who presented to the emergency department chief complaint of nausea vomiting which started today. Patient will have workup performed here on the differential diagnose includes but limited to viral gastroenteritis, hyperglycemia, UTI, ACS. Once workup is obtained reviewed she will be reevaluated. Patient be given Zofran Patient urinalysis reviewed and showed no evidence of infection. Patient's glucose was normal at 102. Patient's EKG was reviewed as well and showed sinus rhythm with a rate of 94 bpm. Patient tested negative for COVID flu and RSV however I discussed with her she likely has another virus outside of these. On reevaluation the patient and she states that she is feeling much better and she would like to go home. At this point in time I do believe that this is a viral infection that she just came down with starting today. She will be sent a prescription for Zofran and advised to eat a bland diet and advance as tolerated. She was encouraged return with worsening symptoms or any concerns. She is agreeable this plan she would like to go home at this point time all question concerns answered she was discharged home in stable condition. Lab Data Labs: Laboratory Results - last 24 hr 05/28/24 05/28/24 20:16 20:18 Urine Color Yellow Urine Clarity Sl. Cloudy Urine pH 6.0 Ur Specific [place] 1.010 Urine Protein 15 H Urine Glucose (UA) Normal Urine Ketones Negative Urine Occult Blood Negative Urine Nitrite Negative Urine Bilirubin Negative Urine Urobilinogen Normal Ur Leukocyte Esterase 100 H Urine RBC 0 SEEN Urine WBC 5-10 SEEN Ur Squamous Epith Cells 5-10 SEEN Amorphous Sediment 1+ Urine Bacteria 1+ Urine Mucus 0 SEEN POC Glucose 102 Discharge Plan Triage Chief Complaint: Nausea/Vomiting/Diarrhea ED Provider: Sarmad Christian Dx/Rx/DC Orders Clinical Impression: Viral gastroenteritis, Nausea & vomiting Prescriptions: New ondansetron 4 mg tablet,disintegrating 4 mg PO Q6H PRN (Reason: nausea and vomiting) Qty: 20 0RF No Action loperamide 2 mg tablet 2 mg PO Q6H PRN (Reason: nausea and vomiting) ascorbic acid (vitamin C) 1,000 mg capsule 0.5 g PO DAILY acetaminophen [Tylenol] 325 mg capsule 650 mg PO Q6H PRN (Reason: fever or pain) mecobalamin (vitamin B12) 1,000 mcg tablet,chewable 1,000 mcg PO DAILY Qty: 30 2RF guaifenesin [Mucinex] 600 mg tablet extended release 12hr 600 mg PO BID PRN (Reason: cough) cetirizine 10 mg tablet 10 mg PO DAILY PRN (Reason: allergy symptoms) Qty: 30 3RF triamcinolone acetonide [Nasacort] 55 mcg Aerosol,Graham 1 spray INTRANASAL QHS PRN (Reason: allergy symptoms) albuterol sulfate 90 mcg/actuation HFA aerosol inhaler 2 puff INHALATION Q6H PRN (Reason: sob) cholecalciferol (vitamin D3) [Vitamin D3] 25 mcg (1,000 unit) Tablet 25 mcg PO DAILY hydrocodone-acetaminophen 5-325 mg tablet 1 tab PO Q8H PRN (Reason: Pain) Patient Comments: TAKE 1 TABLET BY MOUTH TWICE DAILY NEEDED FOR 28 DAYS fluticasone propion-salmeterol [Wixela Inhub] 500-50 mcg/dose blister with device 1 ea INHALATION BID Galzin 50 mg (zinc) capsule 50 mg PO DAILY sennosides [senna] 8.6 mg tablet 17.2 mg PO BID PRN (Reason: constipation) ammonium lactate 12 % lotion 1 applic topical BID PRN (Reason: dry skin) meloxicam 15 mg tablet 7.5 mg PO BID ropinirole 0.5 mg tablet 1 mg PO DAILY dicyclomine 10 mg capsule 10 mg PO BID PRN (Reason: abdominal pain) rosuvastatin 20 mg tablet 20 mg PO DAILY amlodipine 10 mg tablet See Rx Instructions .ROUTE .COMPLEX Qty: 90 1RF Dose Instruction: TAKE 1 TABLET BY MOUTH EVERY DAY AT BEDTIME Rx Instructions: TAKE 1 TABLET BY MOUTH EVERY DAY AT BEDTIME aspirin 81 mg tablet,chewable 81 mg PO DAILY Qty: 30 0RF gabapentin 300 mg capsule 300 mg PO QHS Qty: 30 2RF famotidine 40 mg tablet 40 mg PO DAILY Qty: 90 0RF olmesartan 20 mg tablet 20 mg PO DAILY Qty: 90 1RF levothyroxine 200 mcg tablet 200 mcg PO DAILY Qty: 90 1RF ferrous sulfate 325 mg (65 mg iron) tablet 325 mg PO DAILY Qty: 90 0RF mirtazapine 7.5 mg tablet 7.5 mg PO QHS Qty: 90 0RF pantoprazole 20 mg tablet,delayed release (DR/EC) 20 mg PO DAILY Qty: 60 0RF Primary Care Provider: Marcelle Magaña Referrals: Marcelle Magaña MD [Primary Care Provider] - Activity Restrictions/Additional Instructions: Follow-up with your primary care physician in the outpatient setting. Return with worsening symptoms or any other concerns. Eat a bland diet and advance as tolerated and use the Zofran as prescribed. Print Language: Malay Disposition Disposition: Home, Self Care
[2024-05-28] MEDS: Ondansetron ODT 4 MG Tablet PO (20:10)
[2024-05-28 20:22] LABS: Mucous, Urine 0 SEEN /hpf (<or=2+); Red Blood Cells-Urine 0 SEEN /hpf (0-5)
[2024-05-28 20:23] LABS: Color, Urine Yellow (Yellow); Glucose, Dipstick Normal (Normal); Ketone-Dipstick Negative (Negative); Leukocyte Esterase-Dipstick 100 /ul (Negative); Nitrite-Dipstick Negative (Negative); Occult Blood-Urine Negative /ul (Negative); Protein-Dipstick 15 mg/dl (Negative); Urine Bilirubin Dipstick Negative (Negative); Urine Clarity Sl. Cloudy (Clear); Urine Urobilinogen Normal (Normal)
[2024-05-28 20:29] LABS: Amorphous Sediment 1+; Bacteria 1+ /hpf (None Seen); Squamous Epithelial Cells - UA 5-10 SEEN /hpf (5-10); White Blood Cells 5-10 SEEN /hpf (0-5)
[2024-05-28 20:36] LABS: Bedside Glucose 102 mg/dL (74-106)
[2024-05-28 21:27] VITALS: BP 136/46; PULSE 82; RESP 18
[2024-05-28 21:45] VITALS: TEMP 37.3
[2024-05-28 22:27] VITALS: BP 151/97; PULSE 82; RESP 16; TEMP 37.3; O2SAT 91
== END 2024-05-28 22:30 | disposition home or self-care (01) ==
PROVIDERS: Emergency Provider Emergency Medicine; PCP Internal Medicine; Visit Provider Emergency Medicine
DX: A08.4 Viral intestinal infection, unspecified (principal); E11.9 Type 2 diabetes mellitus without complications; E78.5 Hyperlipidemia, unspecified; Z90.710 Acquired absence of both cervix and uterus; I10 Essential (primary) hypertension; E03.9 Hypothyroidism, unspecified; R11.2 Nausea with vomiting, unspecified; Z79.899 Other long term (current) drug therapy; K21.9 Gastro-esophageal reflux disease without esophagitis; R94.31 Abnormal electrocardiogram [ECG] [EKG]
CPT/HCPCS: 81001; 82962; 87631; 93005; 99282; A4216

== ENCOUNTER → 2024-12-19 | Outpatient (CLI) | payer MEDICARE, SELFPAY ==
--- NOTE | 2024-12-19 13:57 | CDU_ITS ---
Reason For Study Reason For Study: Carotid stenosis Rt. Velocities/BP Lt. Velocities/BP Prox CCA 79.6/12.6 cm/sec. Prox CCA 47.6/16.8 cm/sec. Mid CCA 69.2/14.5 cm/sec. Mid CCA 49.8/13.5 cm/sec. Dist CCA 58.9/13.5 cm/sec. Dist CCA 158.7/40.2 cm/sec. Prox ICA 194.9/30.1 cm/sec. Prox ICA 283.7/71.8 cm/sec. Mid ICA 152.9/26.8 cm/sec. Mid ICA 215.9/42.2 cm/sec. Dist ICA 127.8/21.5 cm/sec. Dist ICA 106.5/26.1 cm/sec. Rt. ICA/CCA = 2.82. Lt. ICA/CCA = 5.70. Prox ECA 505.3/45.9 cm/sec. Prox ECA 41.3/9.9 cm/sec. Rt. Vert. 64.2/11.4 cm/sec. Lt. Vert. 56.4/12.4 cm/sec. Right Extracranial There is heterogeneous, irregular atherosclerotic plaque noted in the right common carotid artery. There is heterogeneous, irregular atherosclerotic plaque noted in the right internal carotid artery. The atherosclerotic plaque causes acoustic shadowing. There is heterogeneous, irregular atherosclerotic plaque noted in the right external carotid artery. Antegrade flow is noted in the right vertebral artery. Left Extracranial There is heterogeneous, irregular atherosclerotic plaque noted in the left common carotid artery. There is heterogeneous, irregular atherosclerotic plaque noted in the left internal carotid artery. There is heterogeneous, irregular atherosclerotic plaque noted in the left external carotid artery. Antegrade flow is noted in the left vertebral artery. Procedure Carotid Duplex 34241. This is a Carotid Duplex examination using B-mode, color flow and specral Doppler. Preliminary report given to ANITA prado. Exam performed in department. VL/Carotid Duplex Ultrasound Interpretation Summary Moderate (50-69%) stenosis right extracranial internal carotid. Severe (>70%) stenosis left extracranial internal carotid. Patent and antegrade vertebrals bilaterally. Ordering Physician: Shweta Cole Referring Physician: Mareclle Magaña Performed By: Christina Collins RVT
== END | disposition home or self-care (01) ==
LOC: CVS 13:55
PROVIDERS: PCP Internal Medicine; Referring Provider Physician Assistant; Visit Provider Physician Assistant
DX: R09.89 Other specified symptoms and signs involving the circulatory and respiratory systems (principal); I65.29 Occlusion and stenosis of unspecified carotid artery
CPT/HCPCS: 93880

== ENCOUNTER → 2024-12-21 | Outpatient (CLI) | payer MEDICARE, SELFPAY ==
[2024-12-21 12:48] LABS: Absolute Lymphocyte Count 2.37 X10^3/uL (0.83-4.51); Absolute Neutrophil Count 6.7 X10^3/uL (2.0-7.7); Basophil# 0.09 X10^3/uL; Basophil% 0.8 % (0-1); Eosinophil# 0.56 X10^3/uL; Eosinophils% 5.1 % (0-5); Hematocrit 33.9 % (37-47); Lymphocyte # 2.37 X10^3/ul (0.83-4.51); Lymphocyte % 21.8 % (19-41); Mean Corp Hgb Conc 32.4 g/dL (32-36); Mean Corpuscular Hgb 33.7 pg (27.0-32.0); Mean Platelet Vol. 11.7 fl (6.2-12.0); Monocyte# 1.09 X10^3/uL; NRBC Flagged by Analyzer 0 % (0-5); Neutrophil # 6.73 X10^3/uL (2.7-7.7); Neutrophil % 61.9 % (47-70); Platelet Count 271 K/mm3 (150-450); RBC Distribution Width CV 13.2 % (11.6-14.6); Red Blood Count 3.26 M/mm3 (4.2-5.4); White Blood Count 10.9 K/mm3 (4.4-11.0)
[2024-12-21 14:15] LABS: Cholesterol 122 mg/dL (<=200); High Density Lipoprotein 41 mg/dL; Low Density Lipoprotein Calc. 68 mg/dL; T4 Total, Thyroxin 9.7 ug/dL (4.8-13.9); Thyroid Stim Hormone (TSH) 0.147 uIU/mL (0.300-4.200); Triglycerides 68 mg/dL; Very Low Density Lipoprotein 14 mg/dL (5-40); cholesterol:hdl ratio screen 2.98
[2024-12-21 14:28] LABS: ALB/GLOB Ratio 1.3 RATIO (0.9-2.4); AST(SGOT) 20 U/L (<=31); Alanine Aminotransfer ALT/SGPT 20 U/L (<=34); Alkaline Phosphatase 108 U/L (35-104); Anion Gap 12 (5-15); BUN 22 mg/dL (4-19); BUN/Creat Ratio 21.9 RATIO (10-20); Calcium,Total 9.4 mg/dL (7.6-11.0); Carbon Dioxide 22.8 mmol/L (21.0-32.0); Chloride 105 mmol/L (98-108); Creatinine, Serum 1.01 mg/dL (0.70-1.20); EST Glomerular Filtration Rate 56 (>60); Globulin 3.1 g/dL (2.2-4.2); Glucose 92 mg/dL (70-99); Potassium 4.5 mmol/L (3.3-5.1); Protein, Total 7.1 g/dL (5.9-8.4); Sodium Level 139 mmol/L (133-145); Total Bilirubin 0.26 mg/dL (0.00-1.30)
== END | disposition home or self-care (01) ==
LOC: BIMLAB 08:03
PROVIDERS: PCP Internal Medicine; Referring Provider Physician Assistant; Visit Provider Physician Assistant
DX: I10 Essential (primary) hypertension (principal); E03.9 Hypothyroidism, unspecified
CPT/HCPCS: 36415; 80053; 80061; 84436; 84439; 84443; 85025

== ENCOUNTER → 2025-01-17 | Outpatient (CLI) | payer MEDICARE, SELFPAY ==
--- NOTE | 2025-01-17 13:30 | BD_ITS ---
PROCEDURE: DEXA BONE DENSITY/APPEND SKEL 01/17/2025 REASON FOR EXAM: SCREENING F, age 79 y/o . Postmenopausal. TECHNIQUE: DEXA BONE DENSITY/APPEND SKEL COMPARISON: None FINDINGS: BMD and T-SCORES Left femoral neck: 0.615 g/cm2, T-score -2.1 Femoral neck comparison data not recommended for monitoring change. Left total hip: 0.768 g/cm2, T-score -1.4 Left 1/3 radius: 0.446 g/cm2, T-score -2.5 The World Health Organization has defined the following categories based on bone density: Normal bone density: T-score equal to or greater than -1.0 Osteopenia: T-score between -1.0 and -2.5 Osteoporosis: T-score equal to or less than -2.5 The patient does meet the pharmacological treatment recommendations for prevention of osteoporosis. BD/Dexa Bone Density/Append Skel IMPRESSION: OSTEOPENIA. Recommend follow-up as clinically warranted. Reading Location: [place] [id number]
== END | disposition home or self-care (01) ==
LOC: OPBD 13:16
PROVIDERS: PCP Internal Medicine; Referring Provider Internal Medicine; Visit Provider Internal Medicine
DX: Z78.0 Asymptomatic menopausal state (principal)
CPT/HCPCS: 77081

== ENCOUNTER → 2025-01-25 | Outpatient (CLI) | payer MEDICARE, SELFPAY ==
--- NOTE | 2025-01-25 14:27 | ECHOD_ITS ---
Reason For Study Reason For Study: HYPOTENSION Procedure This was a 2D Doppler, Color Flow transthoracic echocardiogram. Exam performed in department. Left Ventricle Normal LV size. The left ventricular ejection fraction is 60 %. Stage 1 diastolic dysfunction. No regional wall motion abnormalities noted. Right Ventricle Normal RV size. Normal systolic function. Atria Normal left atrium. Normal right atrium. Mitral Valve Normal mitral valve. Tricuspid Valve Normal tricuspid valve. Aortic Valve Trisinus/trileaflet aortic valve. Mild focal aortic valve calcification. Pulmonic Valve Normal pulmonic valve. Great Vessels Normal aortic root. The pulmonary artery is normal size. Inferior vena cava collapse with respiration. Pericardium/Pleural No pericardial effusion. MMode/2D Measurements & Calculations LVIDd: 4.8 cm IVSd: 1.0 cm Ao root diam: 2.9 cm LVIDs: 3.6 cm LVPWd: 1.1 cm FS: 24.4 % LAV(MOD-bp): 54.5 ml LVAd ap4: 25.9 cm2 SV(MOD-sp4): 47.6 ml LAV(MOD-bp) Indexed: 31.8 ml/m2 LVLd ap4: 7.1 cm SI(MOD-sp4): 27.7 ml/m2 LAV(MOD-sp2): 45.6 ml EDV(MOD-sp4): 79.0 ml LAV(MOD-sp4): 56.2 ml EDV(sp4-el): 79.5 ml LVAs ap4: 13.7 cm2 LVLs ap4: 5.2 cm ESV(MOD-sp4): 31.5 ml ESV(sp4-el): 30.9 ml EF(MOD-sp4): 60.2 % EF(sp4-el): 61.2 % SV(sp4-el): 48.6 ml LA A4 area: 19.6 cm2 LA dimension(2D): 3.2 cm RA A4 area: 13.8 cm2 TAPSE: 1.9 cm Time Measurements MV dec time: 0.27 sec Doppler Measurements & Calculations MV E max jakub: 74.7 cm/sec Lat Peak E' Jakub: 4.4 cm/sec Med Peak E' Jakub: 7.1 cm/sec MV A max jakub: 134.0 cm/sec E/E' lat: 17.0 E/E' med: 10.6 MV E/A: 0.56 MV V2 max: 161.8 cm/sec MV P1/2t max jakub: 67.9 cm/sec Ao V2 max: 142.1 cm/sec MV max P.5 mmHg MV P1/2t: 73.5 msec Ao max P.1 mmHg MV V2 mean: 75.3 cm/sec Ao V2 mean: 95.1 cm/sec MV mean P.8 mmHg MV dec slope: 270.6 cm/sec2 Ao mean P.1 mmHg MV V2 VTI: 26.9 cm MVA(P1/2t): 3.0 cm2 Ao V2 VTI: 30.2 cm AV (velocity ratio): 0.69 LV V1 max: 95.7 cm/sec PA V2 max: 96.6 cm/sec LV V1 max P.7 mmHg PA V2 mean: 72.8 cm/sec LV V1 mean P.7 mmHg LV V1 mean: 60.6 cm/sec LV V1 VTI: 20.7 cm ECHO/Echo Complete Interpretation Summary Normal LV size. The left ventricular ejection fraction is 60 %. Stage 1 diastolic dysfunction. Mild focal aortic valve calcification. Ordering Physician: Yovanny^Dayday^^^PA, PA Referring Physician: Marcelle Rainey Performed By: Jeannetet Joseph, VALERIA, RVT
== END | disposition home or self-care (01) ==
LOC: CVS 14:24
PROVIDERS: PCP Internal Medicine; Referring Provider Physician Assistant; Visit Provider Physician Assistant
DX: I95.9 Hypotension, unspecified (principal)
CPT/HCPCS: 93306

== ENCOUNTER → 2025-02-04 | Outpatient (CLI) | payer MEDICARE, SELFPAY ==
--- NOTE | 2025-02-04 14:48 | CT_ITS ---
PROCEDURE: CTA HEAD AND NECK W/ CONTRAST 02/04/2025 REASON FOR EXAM: SEVERE L ICA STENOSIS TECHNIQUE: CTA HEAD AND NECK W/ CONTRAST Multiplanar Sagittal and Coronal images were obtained. CONTRAST: Isovue 3 7 VOLUME: 100 mL One or more dose reduction techniques were used (e.g., Automated exposure control, adjustment of the mA and/or kV according to patient size, use of iterative reconstruction technique). RADIATION DOSE SUMMARY: CTDlvol: 27.5 mGy DLP: 1505.35 mGycm COMPARISON: None FINDINGS: Aortic Arch: Normal size and branching pattern. Mild atherosclerotic plaque. Brachiocephalic and Subclavians: Mild atherosclerotic plaque without significant stenosis. RIGHT Carotid: Right CCA: Unremarkable. Right ICA: Moderate calcified and soft plaque. Maximum stenosis (NASCET): > 70 % Right ECA: Moderate calcified and soft plaque. LEFT Carotid: Left CCA: Unremarkable. Left ICA: Moderate calcified and soft plaque. Maximum stenosis (NASCET): Greater than 90 % Left ECA: Moderate calcified and soft plaque. Vertebrals: Codominant. Arise from the subclavians. Both vertebrals form the basilar. RIGHT Vertebral: Unremarkable. LEFT Vertebral: Unremarkable. Anatomy: [place] anatomy is normal. Aneurysm or avm: No intracranial aneurysms or large vascular malformations are identified. Anterior cerebral arteries: Unremarkable: Middle cerebral arteries: Unremarkable. Basilar artery: Unremarkable. Posterior cerebral arteries: Unremarkable. Other major branches of the posterior circulation: Unremarkable. Major venous structures: Unremarkable. Other findings: The unenhanced CT scan of the head demonstrates evidence of mild degree of cerebral atrophy. Calcification of the vertebral arteries in the cavernous portions of the internal carotid arteries bilaterally. CT/CTA Head AND Neck W/ Contrast IMPRESSION: Calcified plaque at the origin of both right and left internal carotid arteries causing a marked degree of stenosis. Reading Location: [id number]
[2025-02-04 15:22] LABS: CREATININE FINGERSTICK < 1.0 mg/dL (0.55-1.02); EGFR FINGERSTICK > 60.0000 mL/min (>60)
== END | disposition home or self-care (01) ==
LOC: CT 14:47
PROVIDERS: PCP Internal Medicine; Referring Provider Physician Assistant; Visit Provider Physician Assistant
DX: I65.22 Occlusion and stenosis of left carotid artery (principal)
CPT/HCPCS: 70496; 70498

== ENCOUNTER → 2025-06-13 | Outpatient (CLI) | payer MEDICARE, SELFPAY ==
--- OUTSIDE RECORDS SUMMARY | 2025-06-13 06:18 | XMS RPT_ITS | CCD ---
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 Oscar Adhikari Primary Care Provider [phone] Oscar Hayes Attending Provider [phone] Andrew Ahn Referring Provider Dr. Mikey Oropeza Admit Provider Dr. Mikey Oropeza Referring Provider Dr. Mikey Oropeza Other Provider [phone] Amber Matias Other Provider Unavailable Dr. Jennifer Bro Other Provider MD Aashish Calle Other Provider Dr. Saeid Marroquin Other Provider Unavailable Dr. Lonny Clarke Other Provider LEANN Garcia Attending Provider Unavail able Dr. Jennifer Bro Attending Provider Andrew Fried Attending Provider Unavailable Dr. Jose Sheth Emergency Provider Dr. Melida Stewart Admit Provider Dr. Melida Stewart Attending Provider Dr. Melida Stewart Other Provider Dr. Karis Berrios Attending Provider Dr. Karis Berrios Other Provider Dr. Oscar Adhikari Primary Care Provider Dr. Oscar Hayes Attending Provider Dr. Oscar Adhikari Primary Care Provider Dr. Oscar Trotter Emergency Provider Dr. Kishan Torres Admit Provider Dr. Kishan Torres Attending Provider Dr. Kishan Torres Other Provider Dr. Dusty Arana Attending Provider Dr. Dusty Arana Other Provider Dr. Oscar Adhikari Primary Care Provider Dr. Oscar Adhikari Referring Provider Dr. Chang Mercado Attending Provider DR OSCAR ADHIKARI MD Primary Care Physician Dr. Oscar Adhikari Primary Care Provider Dr. Oscar Adhikari Referring Provider Dr. Dionne Magaña Attending Provider [phone] Dionne Magaña MD Primary Care Provider [phone] Dr. Dionne Magaña Primary Care Provider Dr. Dionne Magaña Attending Provider [phone] Dr. Dionne Magaña Referring Provider [phone] DIONNE MAGAÑA MD Primary Care Physician [phone] VICTOR M Thomas Attending Provider [phone]) VICTOR M Goins Attending Provider [phone] LEANN Lal Attending Provider [phone]) Dr. Dionne Magaña Primary Care Provider Dr. Dionne Magaña Attending Provider [phone]) Dr. Dionne Magaña Referring Provider [phone]) Dr. Dionne Magaña Primary Care Provider Dr. Dionne Magaña Referring Provider [phone]) VICTOR M Thomas Attending Provider [phone] VICTOR M Goins Attending Provider Dr. Dionne Magaña Attending Provider [phone] LEANN Lal Attending Provider [phone] MATTHEW RUIZ DO Attending Unavailable DIONNE MAGAÑA MD Primary Care Unavailable CHANTELL CAMERON MD Attending Unavailable DIONNE MAGAÑA MD G Primary Care Unavailable DIONNE MAGAÑA MD Primary Care Unavailable DIONNE MAGAÑA MD Attending Unavailable Dionne Magaña MD Primary Care Provider [phone] Dr. Dionne Magaña Primary Care Provider Dr. Dionne Magaña Referring Provider [phone] Dr. Dionne Magaña Attending Provider [phone] ARCHANA, DIONNE G Primary Care Unavailable VINICIUS BOLIVAR Attending Unavailable CHARLI JACK Referring Unavailable DAVID LUIS Admitting Unavailable ARCHANA, DIONNE G Primary Care Unavailable ARCHANA, DIONNE G Primary Care Unavailable ARCHANA, DIONNE G Primary Care Unavailable J LUIS SANCHES Referring Unavailable ARCHANA, DIONNE G Primary Care Unavailable ARCHANA, DIONNE G Primary Care Unavailable ARCHANA, DIONNE G Primary Care Unavailable ARCHANA, DIONNE G Primary Care Unavailable ARCHANA, DIONNE G Primary Care Unavailable ARCHAAN, DIONNE G Primary Care Unavailable HERMELINDA BAKER Attending Unavailable ARCHANA, DIONNE G Referring Unavailable ARCHANA, DIONNE G Primary Care Unavailable HERMELINDA BAKER Attending Unavailable ARCHANA, DIONNE G Referring Unavailable ARCHANA, DIONNE G Primary Care Unavailable Dr. Dionne Magaña MD Primary Care Provider [phone] Dr. Dionne Magaña MD Attending Provider Dr. Dionne Magaña MD Referring Provider Charlene JUNIOR-Andrew Holt Attending Provider Yris Cheney Attending Provider Cole PA, Shweta Attending Provider [phone] Cole PA, Shweta Referring Provider [phone] Ghazal SAUCEDA, Dr. Montano Attending Provider [phone] Waybeck PA, Dayday Attending Provider [phone] Yovanny PA, Dayday Referring Provider [phone] Archana SAUCEDA, Dr. Ibanez Primary Care Provider [phone] Archana SAUCEDA, Dr. Ibanez Referring Provider Archana SAUCEDA, Dr. Ibanez Attending Provider Archana SAUCEDA, Dr. Ibanez Primary Care Provider [phone] Archana SAUCEDA, Dr. Ibanez Referring Provider Jess SAUCEDA, Dr. Downing Attending Provider [phone] Archana SAUCEDA, Dr. Ibanez Primary Care Physician Archana SAUCEDA, Dr. Ibanez Attending Physician [phone] Archana SAUCEDA, Dr. Ibanez Referring Provider Yovanny DOW, Dayday Attending Physician Yovanny PA, Dayday Referring Provider [phone] Jess SAUCEDA, Dr. Downing Attending Physician Cole PA, Shweta Attending Physician Cole PA, Shweta Referring Provider [phone] Ghazal SAUCEDA, Dr. Montano Attending Physician Eros, Dionne Primary Care Unavailable Yovanny PA, Dayday Attending Unavailable Eros, Dionne Referring Unavailable Eros, Dionne Primary Care Unavailable Eros, Dionne Referring Unavailable Yris Kirk Attending Unavailable Archana, Dionne Primary Care Unavailable Cole, Shweta Referring Unavailable Cole, Shweta Attending Unavailable Archana, Dionne Referring Unavailable Dusty Harman Attending Unavailable Archana, Dionne Primary Care Unavailable Eros, Dionne Referring Unavailable Archana, Dionne Primary Care Unavailable Yris Kirk Attending Unavailable Eros, Dionne Primary Care Unavailable Chang Mercado Attending Unavailable Eros, Dionne Primary Care Unavailable Cole, Shweta Referring Unavailable Cole, Shweta Attending Unavailable Ghazal, Dusty Attending Unavailable Ghazal, Dusty Admitting Unavailable Eros, Dionne Primary Care Unavailable Archana, Dionne Referring Unavailable Earlimart, Dusty Attending Unavailable Eros, Dionne Primary Care Unavailable Archana, Dionne Primary Care Unavailable Sarmad Hidalgo Attending Unavailable Eros, Dionne Attending Unavailable Eros, Dionne Primary Care Unavailable Eros, Dionne Referring Unavailable Eros, Dionne Primary Care Unavailable Dayday Thomas Attending Unavailable Dayday Thomas Referring Unavailable Archana, Dionne Primary Care Unavailable Dayday Thomas Attending Unavailable Dayday Thomas Referring Unavailable Archana, Dionne Primary Care Unavailable Eros, Dionne Referring Unavailable Dayday Thomas Attending Unavailable Archana, Dionne Attending Unavailable Eros, Dionne Primary Care Unavailable Eros, Dionne Referring Unavailable Archana, Dionne Attending Unavailable Archana, Dionne Primary Care Unavailable Eros, Dionne Referring Unavailable Charlene JUNIOR, Andrew Avila Attending Unavailable Archana, Dionne Primary Care Unavailable Eros, Dionne Referring Unavailable LinonasovYris Attending Unavailable Archana, Dionne Primary Care Unavailable Eros, Dionne Referring Unavailable Eros, Dionne Referring Unavailable Archana, Dionne Attending Unavailable Eros, Dionne Primary Care Unavailable Archana, Dionne Primary Care Unavailable Archana, Dionne Referring Unavailable Dayday Thomas Attending Unavailable Ghazal, Dusty Attending Unavailable Eros, Dionne Primary Care Unavailable Cole, Shweta Referring Unavailable Archana, Dionne Referring Unavailable Eros, Dionne Primary Care Unavailable Dayday Thomas Attending Unavailable Eros, Dionne Primary Care Unavailable Dayday Thomas Attending Unavailable Archana, Dionne Referring Unavailable Archana, Dionne Referring Unavailable Archana, Dionne Primary Care Unavailable Dayday Thomas Attending Unavailable Eros, Dionne Attending Unavailable Archana, Dionne Referring Unavailable Dionne Magaña Primary Care Unavailable Allergies Allergy Classification Reported Allergen(s) Allergy Type Date of Onset Reaction(s) Facility Acetaminophen / Codeine (1 source) Acetaminophen / Codeine Drug Allergy 6 Anaphylaxis [facility] Work Phone: (14 sources) acetaminophen / codeine; Translations: [ACETAMINOPHEN-CO DEINE] Drug Allergy 6 Anaphylaxis [facility] (15 sources) Seasonal allergy; Translations: [SEASONAL ALLERGIES] Propensity to adverse reactions (disorder) 6 Other: See Comments [facility] (20 sources) Clindamycin Drug Allergy 2 rash [facility] (20 sources) Codeine; Translations: [codeine phosphate] Drug Allergy 2 Nausea [facility] (1 source) Clindamycin Drug Allergy 5 [facility] Medications Current Medications Medication Drug Class(es) Dates Sig (Normalized) Sig (Original) acetaminophen 325 mg oral capsule (20 sources) Start: 04-27-2024 take 2 capsules by mouth every six hours as needed for pain Start: 01-10-2023 End: 04-27-2024 take 1 capsule by mouth once Acetaminophen (Tylenol) 3 25 mg capsule Discontinued 325 mg PO ONCE January 10, 2023 12:00am April 27, 2024 10:11am Start: 07-07-2022 End: 07-21-2022 take 1 tablet by mouth once daily acetaminophen 500 mg oral tablet Dose : 1,000 mg = 2 tab(s), Oral, TID, PRN as needed for pain, not to exceed 3000 mg/day, # 100 tab(s), 0 Refill(s), 07/21/22 8:33:00 EST, Pharmacy: [id number], 162.6, cm, 07/06/22 15:21:00 EST, Height Start Date: 07/07/22 Stop Date: 07/21/22 Status: Ordered Start: 08-01-2021 End: 08-02-2021 take 2 tablets by mouth every eight hours Acetaminophen 500 mg Tablet Discontinued 1000 mg PO EVERY 8 HOURS 0 0 August 01, 2021 1:00am August 02, 2021 3:41pm Start: 08-01-2021 End: 08-02-2021 take 1000 mg by mouth every eight hours Acetaminophen Discontinued 1000 MG PO EVERY 8 HOURS 0 August 01, 2021 1:00am August 02, 2021 3:41pm Start: 01-05-2021 End: 08-01-2021 take 2 tablets by mouth every six hours as needed for pain Acetaminophen 500 mg Tablet Discontinued 1000 mg PO EVERY 6 HOURS NEEDED as needed for Pain Score 1-3 0 0 February 13, 2021 12:00am August 01, 2021 2:21pm Start: 01-05-2021 End: 08-01-2021 take 1000 mg by mouth every six hours as needed Acetaminophen Discontinued 1000 MG PO EVERY 6 HOURS NEEDED 0 February 13, 2021 12:00am August 01, 2021 2:21pm Start: 06-02-2020 End: 06-25-2020 Acetaminophen 500 MG tablet Discontinued 1000 mg PO NEEDED as needed for Pain 1-10 Or Fever June 02, 2020 1:10pm June 25, 2020 9:48am Start: 06-02-2020 End: 06-25-2020 Acetaminophen Discontinued 1 000 MG PO NEEDED June 02, 2020 1:10pm June 25, 2020 9:48am Start: 05-28-2020 End: 06-02-2020 take 8 tablets by mouth once Acetaminophen 500 MG tabl et Discontinued 1000 mg PO Q8@0800,1400,2200 0 May 28, 2020 1:00am June 02, 2020 1:10pm Start: 05-28-2020 End: 06-02-2020 Acetaminophen Discontinued 1 000 MG PO Q8@0800,1400,2200 May 28, 2020 1:00am June 02, 2020 1:10pm acetaminophen 325 mg / HYDRO codone bitartrate 5 mg oral tablet (20 sources) Opioid Agonist Start: 04-27-2024 Start: 01-23-2024 End: 04-27-2024 Hydrocodone-Acetaminophen 7. 5-325 mg tablet Discontinued 1 {tbl} PO DAILY 0 January 23, 2024 1:59pm April 27, 2024 10:06am Start: 12-14-2023 End: 01-23-2024 Hydrocodone-Acetaminophen 7. 5-325 mg tablet Discontinued 1 {tbl} PO TWICE A DAY 0 December 14, 2023 12:00am January 23, 2024 2:00pm Start: 06-22-2022 take 1 tablet by jacqui th twice daily acetaminophen-hydrocodone 325 mg-7.5 mg oral tablet TAKE 1 TABLET BY MOUTH TWICE DAILY FOR 28 DAYS Start Date: 06/22/22 Status: Ordered Start: 11-29-2021 End: 04-27-2024 Hydrocodone-Acetaminophen 5- 325 mg tablet Discontinued 1 {tbl} PO TWICE A DAY as needed for Pain November 29, 2021 12:00am April 27, 2024 10:11am Start: 11-29-2021 take 1 tablet by jacqui th twice daily Hydrocodone-Acetaminophen Active 1 TABLE T PO TWICE A DAY November 29, 2021 12:00am Start: 07-29-2021 End: 08-01-2021 Hydrocodone-Acetaminophen 7. 5-325 mg Tablet Discontinued 1 {tbl} PO TWICE A DAY July 29, 2021 1:00am August 01, 2021 2:21pm Check with primary doctor Start: 07-29-2021 End: 08-01-2021 take 1 tablet by mouth twice daily Hydrocodone-Acetaminophen Discontinued 1 TABLET PO TWICE A DAY July 29, 2021 1:00am August 01, 2021 2:21pm Start: 06-13-2020 End: 06-13-2020 Hydrocodone-Acetaminophen 10 -325 mg tablet Discontinued 1 {tbl} PO EVERY 6 HOURS as needed for pain 30 0 June 13, 2020 June 13, 2020 4:35pm Start: 06-13-2020 End: 06-13-2020 take 1 tablet by mouth every six hours Hydrocodone-Acetaminophen Discontinued 1 TABLET PO EVERY 6 HOURS 30 June 13, 2020 June 13, 2020 4:35pm Start: 09-04-2018 End: 06-25-2020 Hydrocodone-Acetaminophen 1 TABLET tablet Discontinued 0.5 {tbl} PO THREE TIMES A DAY as needed for Pain Score 1-04/19September 04, 2018 1:00am June 25, 2020 9:49am Start: 09-04-2018 End: 06-25-2020 take 0.5 tablet by mouth three times daily Hydrocodone-Acetaminophen Discontinued 0 .5 TABLET PO THREE TIMES A DAY September 04, 2018 1:00am June 25, 2020 9:49am take 7.5-325 tablets by mouth every six hours as needed HYDROcodone-Acetaminophen (VICODIN ES) 7.5-300 mg tab Take 7.5-325 tablets by mouth every 6 hours as needed. 0 Active Comment on above: Take 7.5-325 tablets by mouth every 6 hours as needed. Albuterol Sulfate (20 sources) beta2-Adrenergic Agonist Start: 11-29-2021 take 1 puff(s) by inhalation every six hours Albuterol Sulfate Active 2 PUFF INHALATION EVERY 6 HOURS November 29, 2021 7:04pm Start: 11-29-2021 Start: 11-29-2021 take 1 puff(s) by in halation every six hours Albuterol Sulfate Active 2 PUFF INHALATION EVERY 6 HOURS November 29, 2021 12:00am Start: 06-02-2020 End: 08-14-2021 Albuterol Sulfate 1 PUFF inh aler Discontinued 1 - 2 NMA INHALATION EVERY 6 HOURS NEEDED as needed for Sob &/Or Wheezing June 02, 2020 1:00am August 14, 2021 9:10am Start: 06-02-2020 End: 08-14-2021 take 1 puff(s) by inhalation every six hours as needed Albuterol Sulfate Discontinued 1 - 2 PUFF INHALATION EVERY 6 HOURS NEEDED June 02, 2020 1:00am August 14, 2021 9:10am Albuterol (Eqv-ProAir HFA) 90 mcg/inh inhalation aerosol (5 sources) Start: 06-22-2022 take 2 puff(s) by mouth four times daily as needed for wheezing Albuterol (Eqv-ProAir HFA) 90 mcg/inh inhalation aerosol INHALE 2 puffs by mouth up to four times daily as needed for Shortness of breath or wheezing Start Date: 06/22/22 Status: Ordered ascorbic acid 1000 mg oral capsule (20 sources) Vitamin C Start: 04-27-2024 take 0.5 g by mouth once daily Start: 01-10-2023 End: 04-27-2024 take 1 g by mouth once daily Ascorbic Acid (Vitamin C) 1,000 mg capsule Discontinued 1 g PO DAILY January 10, 2023 12:00am April 27, 2024 10:11am Start: 01-10-2023 take 1 g by mouth once daily A scorbic Acid (Vitamin C) Active 1 GM PO DAILY January 09, 2023 11:00pm Start: 01-10-2023 take 1 g by mouth once daily A scorbic Acid (Vitamin C) Active 1 GM PO DAILY January 10, 2023 12:00am Start: 12-27-2020 End: 02-13-2021 take 1 g by mouth once daily Ascorbic Acid (Vitamin C) Discontinued 1 GM PO DAILY December 27, 2020 5:54pm February 13, 2021 2:30pm Start: 12-27-2020 End: 02-13-2021 take 1 g by mouth once daily Ascorbic Acid (Vitamin C) 1,000 mg Tablet,Chewable Discontinued 1 g PO DAILY December 27, 2020 12:00am February 13, 2021 2:30pm SUPPLEMENT Start: 12-27-2020 End: 02-13-2021 take 1 g by mouth once daily Ascorbic Acid (Vitamin C) Discontinued 1 GM PO DAILY December 27, 2020 12:00am February 13, 2021 2:30pm Start: 12-27-2020 End: 02-13-2021 take 1 g by mouth once daily Ascorbic Acid (Vitamin C) Discontinued 1 GM PO DAILY December 26, 2020 11:00pm February 13, 2021 1:30pm Start: 05-06-2017 End: 08-10-2019 take 1 tablet by mouth once daily Ascorbic Acid (Vitamin C) (Vitamin C) 500 MG tablet Discontinued 500 mg PO DAILY@0800 May 06, 2017 12:00am August 10, 2019 9:58am SUPPLEMENT Comment on above: Take 500 mg by mouth once daily. aspirin 81 mg chewable tablet (20 sources) Platelet Aggregation Inhibitor, Nonsteroidal Anti-inflammatory Drug Start: 12-22-2023 take 1 tablet by mouth once daily Start: 07-07-2022 End: 08-06-2022 take 1 tablet by mouth twice daily aspirin 81 mg oral delayed release tablet Dose : 81 mg = 1 tab(s), Oral, BID, Take 81 mg aspirin twice daily with food for 4 weeks postoperatively for DVT prophylaxis., # 60 tab(s), 0 Refill(s), Pharmacy: [id number], 162.6, cm, 07/06/22 15:21:00 EST, Height Start Date: 07/07/22 Stop Date: 08/06/22 Status: Ordered Start: 08-01-2021 End: 08-02-2021 Aspirin 81 mg Tablet,Chewabl e Discontinued 81 mg PO 0800,1700 0 0 August 01, 2021 1:00am August 02, 2021 3:41pm bisacodyl 5 mg delayed release oral tablet (4 sources) Stimulant Laxative Start: 08-14-2021 take 10 mg by mouth once daily Bisacodyl Active 10 MG PO DAILY 0 August 14, 2021 9:11am Breo Ellipta 200 mcg-25 mcg/inh inhalation powder (5 sources) Start: 06-22-2022 take 1 puff(s) by mouth once daily Breo Ellipta 200 mcg-25 mcg/inh inhalation powder Inhale 1 puff by mouth daily with good oral care Start Date: 06/22/22 Status: Ordered CALCIUM CARB/VIT D3/MINERALS (CALCIUM 600 + MINERALS ORAL) (9 sources) CALCIUM CARB/VIT D3/MINERALS (CALCIUM 600 + MINERALS ORAL) Take by mouth once daily. 0 Active Comment on above: Take by mouth once d aily. cefdinir 300 mg oral capsule (20 sources) Cephalosporin Antibacterial Start: 07-09-2022 End: 2022 cefdinir 300 mg oral capsule Dose : 300 mg = 1 cap(s), Oral, q12h, X 5 day(s), # 10 cap(s), 0 Refill(s), 07/14/22 13:05:00 EST, Pharmacy: [facility] #[id number], 162.6, cm, 07/06/22 15:21:00 EST, Height, 164 Start Date: 07/09/22 Stop Date: 07/14/22 Status: Ordered Start: 08-07-2021 End: 08-14-2021 take 1 capsule by mouth twice daily Cefdinir 300 mg capsule Discontinued 300 mg PO TWICE A DAY 10 August 07, 2021 1:00am August 14, 2021 9:10am cholecalciferol 0.025 mg oral tablet (20 sources) Vitamin D Start: 11-29-2021 take 1 tablet by mouth once daily Compress.Stocking,Knee,R eg,Med misc (9 sources) Start: 08-22-2024 Compress.Stock ing, Knee,Reg,Med misc Active 0 .Route 2 0 August 22, 2024 1:00am Swelling of lower extremity Other specified soft tissue disorders As directed Start: 08-22-2024 Compress.Stock ing,Knee,Reg,Med misc Active 0 .Route 2 August 22, 2024 1:00am As directed 1 ml denosumab 60 mg/ml prefilled syringe (4 sources) RANK Ligand Inhibitor Start: 01-17-2025 dicyclomine hydrochloride 10 mg oral capsule (18 sources) Anticholinergic Start: 05-15-2024 take 1 capsule by mouth twice daily as needed for pain Start: 01-10-2024 End: 04-27-2024 take 1 capsule by mouth twice daily as needed for pain Dicyclomine 10 mg capsule Discontinued 10 mg PO TWICE A DAY as needed for abdominal pain 30 0 January 10, 2024 12:00am April 27, 2024 10:07am docusate sodium 50 mg / sennosides, residential 8.6 mg oral tablet (20 sources) Start: 07-07-2022 End: 07-10-2022 take 1 tablet by mouth twice daily Senokot S 50 mg-8.6 mg oral tablet Dose = 2 tab(s), Oral, BID, Take until first bowel movement, then as needed, X 3 day(s), # 12 tab(s), 0 Refill(s), Pharmacy: [id number], 162.6, cm, 07/06/22 15:21:00 EST, Height Start Date: 07/07/22 Stop Date: 07/10/22 Status: Ordered Start: 08-14-2021 Sennosides-Doc usate Sodium (Stool Softener-Stimulant Laxat) 8.6-50 mg Tablet Active 2 TABLET PO 0800,1800 0 August 14, 2021 9:12am Start: 01-19-2021 End: 02-13-2021 Sennosides-Docusate Sodium ( Senna Plus) 8.6-50 mg tablet Discontinued 1 {tbl} PO DAILY NEEDED as needed for Constipation January 19, 2021 12:00am February 13, 2021 2:32pm Start: 06-25-2020 End: 01-05-2021 Sennosides-Docusate Sodium 1 TABLET tablet Discontinued 1 {tbl} PO TWICE A DAY December 29, 2020 6:54pm January 05, 2021 6:50pm Constipation Start: 06-25-2020 End: 01-05-2021 take 1 tablet by mouth twice daily Sennosides-Docusate Sodium Discontinued 1 TABLET PO TWICE A DAY December 29, 2020 6:54pm January 05, 2021 6:50pm doxycycline hyclate 100 mg oral tablet (2 sources) Tetracycline-class Drug Start: 02-03-2023 End: 02-10-2023 take 1 tablet by mouth twice daily doxycycline (VIBRA-TABS) 100 mg tablet Take 1 tablet by mouth twice daily for 7 days. 14 tablet 0 02/03/2023 02/10/2023 Active Comment on above: Take 1 tablet by jacqui th twice daily for 7 days. FeroSul 325 mg (65 mg elemental iron) oral tablet (5 sources) Start: 06-22-2022 take 1 tablet by mouth once daily FeroSul 325 mg (65 mg elemental iron) oral tablet TAKE 1 TABLET by mouth daily Start Date: 06/22/22 Status: Ordered ferrous sulfate 325 mg oral tablet (20 sources) Start: 01-10-2023 End: 03-14-2025 take 1 tablet by mouth once daily Start: 07-29-2021 End: 01-10-2023 take 1 tablet by mouth twice daily Ferrous Sulfate 325 mg (65 mg iron) Tablet Discontinued 325 mg PO TWICE A DAY July 29, 2021 1:00am January 10, 2023 2:09pm Supplement fluticasone propionate 0.05 mg/actuat metered dose nasal spray (20 sources) Corticosteroid Start: 08-14-2021 Fluticasone Pr opionate Active 1 SPRAY NASAL TWICE A DAY 0 August 14, 2021 9:11am Start: 08-12-2021 End: 08-14-2021 Fluticasone Propionate (Flon ase) 50 mcg/actuation [place],Suspension Discontinued 1 NMA INTRANASAL DAILY August 12, 2021 1:00am August 14, 2021 9:10am Check with primary doctor Start: 08-12-2021 End: 08-14-2021 Fluticasone Propionate (Flon ase) 50 mcg/actuation [place],Suspension Discontinued 1 SPRAY INTRANASAL DAILY August 12, 2021 1:00am August 14, 2021 9:10am Fluticasone Propion-Salmeter ol (18 sources) Corticosteroid, beta2-Adrenergic Agonist Start: 03-02-2024 Start: 03-02-2024 Fluticasone Pr opion-Salmeterol (Wixela Inhub) 500-50 mcg/dose blister with device Active 1 NMA INHALATION TWICE A DAY March 02, 2024 12:00am take 1 puff(s) by in halation twice daily fluticasone-salmeterol (ADVAIR) 250-50 mcg/dose dsdv Inhale 1 Puff as instructed twice daily. 0 Active Comment on above: Inhale 1 Puff as ins tructed twice daily. 30 actuat fluticasone furoate 0.2 mg/actuat / vilanterol 0.025 mg/actuat dry powder inhaler (20 sources) Corticosteroid, beta2-Adrenergic Agonist Start: 12-01-2022 take 1 puff(s) by mouth once daily BREO ELLIPTA 200-25 mcg/dose inhaler Inhale 1 puff by mouth daily with good oral care 12/01/2022 Active Start: 07-15-2021 Fluticasone Fu roate-Vilanterol (Breo Ellipta) 100-25 mcg/dose Blister With Device Active 1 INH INHALATION TWICE A DAY July 15, 2021 2:07pm Start: 07-15-2021 End: 03-02-2024 Fluticasone Furoate-Vilanter ol (Breo Ellipta) 100-25 mcg/dose Blister With Device Discontinued 1 NMA INHALATION DAILY July 15, 2021 1:00am March 02, 2024 10:30am SOB Start: 07-15-2021 Fluticasone Fu roate-Vilanterol (Breo Ellipta) 100-25 mcg/dose Blister With Device Active 1 INH INHALATION DAILY July 15, 2021 1:00am Start: 02-01-2020 End: 04-10-2020 Fluticasone Furoate-Vilanter ol Discontinued 1 EACH IH DAILY February 01, 2020 2:50pm April 10, 2020 9:17am Start: 02-01-2020 End: 04-10-2020 take 1 dose by inhalation once daily Fluticasone Furoate-Vilanterol 1 EACH blister with device Discontinued 1 NMA IH DAILY February 01, 2020 12:00am April 10, 2020 9:17am Start: 02-01-2020 End: 04-10-2020 Fluticasone Furoate-Vilanter ol Discontinued 1 EACH IH DAILY February 01, 2020 12:00am April 10, 2020 9:17am Start: 02-01-2020 End: 04-10-2020 Fluticasone Furoate-Vilanter ol Discontinued 1 EACH IH DAILY January 31, 2020 11:00pm April 10, 2020 8:17am Comment on above: Inhale 1 puff by jacqui th daily with good oral care folic acid 1 mg oral tablet (4 sources) Start : 07-29 take 1 mg by mouth once daily Folic Acid Active 1 MG PO DAILY July 29, 2021 10:11am 12 hr guaiFENesin 600 mg extended release oral tablet (16 sources) Start : 06-15 take 1 tablet by mouth twice daily as needed for cough, then take 1 tablet by mouth every twelve hours as needed for cough hydroCHLOROthiazide 25 mg oral tablet (9 sources) Thiazide Diuretic take 1 tablet by mouth once daily hydrochlorothiazide (HYDRODIURIL, ESIDRIX) 25 mg tablet Take 25 mg by mouth once daily. 0 Active Comment on above: Take 25 mg by mouth once daily. hydrOXYzine hydrochloride 10 mg oral tablet (3 sources) Antihistamine Start : 03-21 End: 04-15 take 1 tablet by mouth twice daily as needed for anxiety Start: 03-06-2025 End: 03-21-2025 take 1 tablet by mouth every eight hours as needed for anxiety Hydroxyzine Hcl 10 mg tablet Discontinued 10 mg PO Q8H as needed for anxiety 30 0 March 06, 2025 12:00am March 21, 2025 10:32am levothyroxine sodium 0.175 m g oral tablet (20 sources) l-Thyroxine Start: 01-08-2025 take 1 tablet by jcaqui once daily Start: 01-10-2023 End: 01-08-2025 take 1 tablet by mouth once daily Levothyroxine 200 mcg tablet Discontinued 200 ug PO DAILY 90 1 March 22, 2024 11:37am January 08, 2025 8:57am Start: 11-29-2022 End: 01-10-2023 take 3-75 ug by mouth once daily Levothyroxine 75 mcg tablet Discontinued 225 ug PO DAILY January 10, 2023 2:05pm January 10, 2023 11:05pm pt to take 3 - 75 mcg tablets orally daily Start: 11-29-2022 End: 01-10-2023 take 3-75 ug by mouth once daily Levothyroxine Discontinued 225 MCG PO DAILY January 10, 2023 2:05pm January 10, 2023 11:05pm pt to take 3 - 75 mcg tablets orally daily Start: 06-22-2022 take 1 tablet by jacqui th once daily levothyroxine 137 mcg (0.137 mg) oral tablet TAKE 1 TABLET BY MOUTH EVERY DAY Start Date: 06/22/22 Status: Ordered Start: 03-24-2022 take 137 ug by mouth once daily Levothyroxine Active 137 MCG PO DAILY March 23, 2022 11:00pm Start: 06-09-2020 End: 03-24-2022 take 1 tablet by mouth once daily Levothyroxine 125 mcg tablet Discontinued 125 ug PO DAILY June 09, 2020 1:00am March 24, 2022 11:20am Thyroid Start: 06-07-2020 End: 06-09-2020 Levothyroxine 100 MCG tablet Discontinued 112 ug PO DAILY@0600 June 07, 2020 10:06am June 09, 2020 11:07am Start: 06-07-2020 End: 06-09-2020 take 112 ug by mouth once daily Levothyroxine Discontinued 112 MCG PO DAILY@0600 June 07, 2020 10:06am June 09, 2020 11:07am Start: 05-28-2020 End: 06-07-2020 take 1 tablet by mouth once daily Levothyroxine 100 MCG tablet Discontinued 100 ug PO DAILY@0600 0 May 28, 2020 1:00am June 07, 2020 10:06am Start: 06-02-2016 End: 05-28-2020 Levothyroxine 50 MCG tablet Discontinued 112 ug PO DAILY June 02, 2016 1:00am May 28, 2020 8:36pm THYROID Start: 06-02-2016 End: 05-28-2020 take 112 ug by mouth once daily Levothyroxine Discontinued 112 MCG PO DAILY June 02, 2016 1:00am May 28, 2020 8:36pm Levothyroxine 50 mcg cap Take by mouth once daily. 0 Active Comment on above: Take by mouth once d aily. loperamide hydrochloride 2 mg oral tablet (20 sources) Opioid Agonist Start: 01-10-2023 take 1 tablet by mouth every six hours as needed for nausea and vomiting Start: 08-02-2021 End: 08-14-2021 take 1 capsule by mouth every six hours as needed Loperamide 2 mg Capsule Discontinued 2 mg PO EVERY 6 HOURS NEEDED as needed for Dirrhea 0 August 02, 2021 1:00am August 14, 2021 9:10am meloxicam 7.5 mg oral tablet (20 sources) Nonsteroidal Anti-inflammatory Drug Start: 01-15-2025 End: 04-15-2025 take 1 tablet by mouth twice daily Start: 05-15-2024 End: 01-15-2025 take 7.5 mg by mouth twice daily Meloxicam 15 mg tablet Discontinued 7.5 mg PO TWICE A DAY May 15, 2024 1:00am January 15, 2025 12:34pm Start: 11-29-2022 End: 05-15-2024 take 1 tablet by mouth once daily Meloxicam 15 mg tablet Discontinued 15 mg PO DAILY 90 December 20, 2023 10:01am May 15, 2024 7:29pm Start: 07-07-2022 take 1 tablet by jacqui th twice daily meloxicam (MOBIC) 7.5 mg tablet Take 7.5 mg by mouth two times a day. 0 08/30/2023 Active Comment on above: Take 1 tablet by jacqui th every afternoon. metFORMIN hydrochloride 500 mg oral tablet (20 sources) Biguanide Start: 06-22-2022 metFORMIN 500 mg oral tablet (IR) Dose : 500 mg = 1 tab(s), Oral, BID, # 180 tab(s), 0 Refill(s) Start Date: 06/22/22 Status: Ordered Start: 12-01-2021 End: 04-13-2023 take 1 tablet by mouth twice daily at mealtime Metformin 500 mg Tablet Extended Release 24 Hr Discontinued 500 mg PO TWICE DAILY WITH MEALS 60 0 December 01, 2021 9:26am April 13, 2023 1:52pm Glucose Start: 12-27-2020 End: 12-01-2021 take 1 tablet by mouth once daily Metformin 500 mg Tablet Extended Release 24 Hr Discontinued 500 mg PO DAILY December 27, 2020 12:00am December 01, 2021 9:26am Glucose Start: 06-19-2020 End: 06-25-2020 take 1 tablet by mouth twice daily at mealtime Metformin 500 MG tablet Discontinued 500 mg PO TWICE DAILY WITH MEALS June 19, 2020 7:46pm June 25, 2020 9:49am Diabetes methylPREDNISolone (20 sources) Corticosteroid Start: 02-07-2023 End: 02-13-2023 methylPREDNISolone (MEDROL, JERMAINE,) 4 mg Dose-Pack Indications: Pain Follow dosing instructions, take with food. 21 tablet 0 02/07/2023 02/13/2023 Active Start: 05-20-2020 End: 05-28-2020 Methylprednisolone 4 MG tabl et Discontinued 4 mg PO DIRECTED 1 0 May 20, 2020 1:00am May 28, 2020 8:37pm Intractable back pain Comment on above: Follow dosing instru ctions, take with food. mirtazapine 7.5 mg oral tablet (20 sources) Start: 11-30-19 End: 02-19-20 25 take 1 tablet by mouth at bedtime MULTIVITAMIN ORAL (11 sources) MULTIVITAMIN ORA L Take by mouth once daily. Active MULTIVITAMIN ORA L Take by mouth once daily. 0 Active Comment on above: Take by mouth once d aily. mupirocin 20 mg/ml topical cream (1 source) RNA Synthetase Inhibitor Antibacterial Start: 3 End: 3 mupirocin (BACTROBAN) 2 % cream Apply 1 application to affected area three times daily for 10 days. Location: left warm 30 g 1 02/15/2023 02/25/2023 Active Comment on above: Apply 1 application to affected area three times daily for 10 days. Location: left warm nystatin [id number] unt/ml oral suspension (20 sources) Polyene Antifungal Start: 2 take [id number] [IU] by mouth four times daily Nystatin Active [id number] UNIT PO 4 TIMES DAILY 140 7 December 01, 2021 9:32am Start: 08-07-2021 End: 08-14-2021 take 1 tablet by mouth four times daily Nystatin 500,000 unit Tablet Discontinued [id number] U PO 4 TIMES DAILY August 07, 2021 1:00am August 14, 2021 9:10am thrush Start: 01-23-2021 End: 02-13-2021 Nystatin (Nyamyc) 100,000 un it/gram powder Discontinued 1 NMA TOPICAL TWICE A DAY January 23, 2021 6:04pm February 13, 2021 2:31pm Skin breakdown Please contact the information source for Protocol details. Start: 01-23-2021 End: 02-13-2021 Nystatin (Nyamyc) 100,000 un it/gram powder Discontinued 1 APPLIC TOPICAL TWICE A DAY January 23, 2021 6:04pm February 13, 2021 2:31pm Start: 07-10-2019 End: 08-10-2019 take [id number] [IU] by mouth four times daily Nystatin 500,000 UNIT/5 ML suspension Discontinued [id number] U PO 4 TIMES DAILY 56 0 July 10, 2019 1:00am August 10, 2019 9:57am olmesartan medoxomil 5 mg oral tablet (20 sources) Angiotensin 2 Receptor Altaf Start: 12-21-2024 End: 03-14-2025 take 1 tablet by mouth once daily Start: 06-25-2024 End: 01-15-2025 take 10 mg by mouth once daily Olmesartan 20 mg tablet Discontinued 10 mg PO daily 90 1 October 09, 2024 3:36pm January 15, 2025 12:42pm Start: 11-29-2021 End: 06-25-2024 take 1 tablet by mouth once daily Olmesartan 20 mg tablet Discontinued 20 mg PO DAILY 90 1 March 14, 2024 2:34pm June 25, 2024 1:00pm On Hold: Hold for 3 days and restart at lower dose Start: 09-25-2021 take 20 mg by mouth once daily Benicar Active 20 MG SL/PO DAILY September 25, 2021 8:37pm omeprazole 20 mg delayed release oral capsule (9 sources) Proton Pump Inhibitor take 1 capsule by mouth once daily omeprazole (PRILOSEC) 20 mg capsule Take 20 mg by mouth once daily. 0 Active Comment on above: Take 20 mg by mouth once daily. ondansetron 4 mg disintegrating oral tablet (20 sources) Serotonin-3 Receptor Antagonist Start: take 1 tablet by mouth every six hours as needed for nausea and vomiting Start: 05-28-2024 End: 04-29-2025 take 1 tablet by mouth every six hours as needed for nausea and vomiting Ondansetron 4 mg tablet,disintegrating Discontinued 4 mg PO EVERY 6 HOURS as needed for nausea and vomiting 20 May 28, 2024 1:00am April 29, 2025 2:54pm Start: 06-16-2023 End: 04-27-2024 take 1 tablet by mouth every eight hours as needed for nausea and vomiting Ondansetron 4 mg tablet,disintegrating Discontinued 4 mg PO Q8H as needed for nausea and vomiting 12 June 16, 2023 1:00am April 27, 2024 10:08am Start: 06-24-2022 End: 01-10-2023 take 1 tablet by mouth every eight hours as needed for nausea and vomiting Ondansetron Hcl (Zofran) 4 mg Tablet Discontinued 4 mg PO Q8H as needed for Nausea And Vomiting June 24, 2022 1:00am January 10, 2023 2:08pm Start: 08-14-2021 End: 09-25-2021 take 2 tablets by mouth three times daily before mealtime Ondansetron 4 mg Tablet,Disintegrating Discontinued 8 mg PO THREE TIMES DAILY BEFORE MEALS 0 0 August 14, 2021 1:00am September 25, 2021 8:36pm Start: 08-14-2021 End: 09-25-2021 take 8 mg by mouth three times daily before mealtime Ondansetron Discontinued 8 MG PO THREE TIMES DAILY BEFORE MEALS 0 August 14, 2021 1:00am September 25, 2021 8:36pm Start: 08-01-2021 End: 08-14-2021 take 4 mg intravenously every six hours as needed for nausea Ondansetron Hcl (Pf) 4 mg/2 mL Solution Discontinued 4 mg IV EVERY 6 HOURS NEEDED as needed for Nausea 0 0 August 01, 2021 1:00am August 14, 2021 9:10am Start: 03-05-2021 End: 05-29-2021 take 1 tablet by mouth every eight hours as needed for nausea Ondansetron 4 MG tablet Discontinued 4 mg PO EVERY 8 HOURS NEEDED as needed for Nausea March 05, 2021 12:00am May 29, 2021 8:28pm Start: 07-02-2019 End: 08-10-2019 take 1 tablet by mouth every eight hours as needed for nausea Ondansetron 4 MG tablet Discontinued 4 mg PO EVERY 8 HOURS NEEDED as needed for Nausea July 09, 2019 1:00am August 10, 2019 9:57am oxyCODONE hydrochloride 5 mg oral tablet (20 sources) Opioid Agonist Start: 07-07-2022 End: 2022 take 1-2 tablets by mouth every four hours as needed for pain oxyCODONE 5 mg oral tablet ( IMMEDIATE release ) See Instructions, PRN as needed for pain, 1-2 tab(s) Oral q4h, # 56 tab(s), 0 Refill(s), 07/14/22 8:35:00 EST, Pharmacy: [id number], Status post reverse total arthroplasty of right shoulder, 162.6, cm, 07/06/22 15:21:00 EST, Height, 164 Start Date: 07/07/22 Stop Date: 07/14/22 Status: Ordered Start: 08-01-2021 End: 08-14-2021 take 1 tablet by mouth every six hours as needed for pain Oxycodone 5 mg Tablet Discontinued 5 mg PO EVERY 6 HOURS NEEDED as needed for Pain Score 6-10 60 7 0 August 01, 2021 August 14, 2021 9:11am Other acute postprocedural pain Other acute postprocedural pain Start: 01-23-2021 End: 02-13-2021 take 1 tablet by mouth every four hours as needed for pain Oxycodone 5 mg Tablet Discontinued 5 mg PO EVERY 4 HOURS NEEDED as needed for Pain Score 4-5 30 7 0 January 23, 2021 February 13, 2021 2:31pm [facility] fracture of right femur Start: 12-29-2020 End: 01-05-2021 take 1 tablet by mouth every four hours as needed for pain Oxycodone 5 mg Tablet Discontinued 5 mg PO EVERY 4 HOURS NEEDED as needed for Pain Score 4-5 0 0 December 29, 2020 January 05, 2021 6:50pm Start: 06-25-2020 End: 12-29-2020 take 2.5 mg by mouth every four hours as needed for pain Oxycodone 5 MG tablet Discontinued 2.5 mg PO EVERY 4 HOURS NEEDED as needed for Pain Score 4-10 9 0 June 25, 2020 December 29, 2020 4:06pm Chronic back pain Dorsalgia, unspecified Other chronic pain Start: 06-25-2020 End: 12-29-2020 take 2.5 mg by mouth every four hours as needed Oxycodone Discontinued 2.5 MG PO EVERY 4 HOURS NEEDED June 25, 2020 December 29, 2020 4:06pm pantoprazole 40 mg delayed release oral tablet (20 sources) Proton Pump Inhibitor Start: 07-18-2024 End: 09-04-2024 take 1 tablet by mouth once daily Start: 01-23-2024 End: 07-26-2024 take 1 tablet by mouth once daily Pantoprazole 20 mg tablet,delayed release (DR/EC) Discontinued 20 mg PO DAILY June 22, 2024 12:15pm July 26, 2024 3:28pm Start: 06-22-2022 take 1 tablet by jacqui th once daily pantoprazole 40 mg oral enteric coated tablet TAKE 1 TABLET BY MOUTH DAILY Start Date: 06/22/22 Status: Ordered Start: 05-29-2021 take 40 mg by mouth once daily Pantoprazole Active 40 MG PO DAILY May 29, 2021 8:25pm Start: 01-30-2020 End: 04-10-2020 take 1 tablet by mouth once daily Pantoprazole 40 MG tablet Discontinued 40 mg PO DAILY January 30, 2020 12:00am April 10, 2020 9:16am predniSONE 10 mg oral tablet (20 sources) Start: 08-08-2024 End: 08-22-2024 take 1 tablet by mouth twice daily Start: 12-24-2023 End: 01-02-2024 predniSONE (DELTASONE) 10 mg tablet Indications: Acute gout involving toe of right foot, unspecified cause Take 4 tabs daily for 3 days, then 2 tabs daily for 3 days, then 1 tab daily for 3 days with food. 21 tablet 0 12/24/2023 01/02/2024 Active Start: 12-01-2023 End: 12-13-2023 take 1 tablet by mouth twice daily Prednisone 20 mg tablet Discontinued 20 mg PO TWICE A DAY 10 December 01, 2023 12:00am December 13, 2023 10:50am Start: 01-28-2023 End: 02-07-2023 take 2 tablets by mouth once daily, then take 1 tablet by mouth once daily predniSONE (DELTASONE) 20 mg tablet TAKE 2 (TWO) TABLETS BY MOUTH EVERY DAY for FOUR days then 1 (ONE) TABLET EVERY DAY for 2 (TWO) days 0 01/28/2023 02/07/2023 Discontinued Start: 01-30-2020 End: 04-10-2020 Prednisone 10 MG tablet Discontinued 10 mg PO NEEDED as needed for BRONCHITIS SYMPTOMS January 30, 2020 12:00am April 10, 2020 9:17am Start: 03-27-2019 End: 03-31-2019 take 2 tablets by mouth once daily at mealtime Prednisone 20 MG tablet Discontinued 40 mg PO DAILY 8 March 27, 2019 12:00am March 30, 2019 12:00am March 31, 2019 12:10am With food Start: 03-27-2019 End: 03-31-2019 take 40 mg by mouth once daily at mealtime Prednisone Discontinued 40 MG PO DAILY 8 March 27, 2019 12:00am March 31, 2019 12:10am With food Comment on above: TAKE 2 (TWO) TABLETS BY MOUTH EVERY DAY for FOUR days then 1 (ONE) TABLET EVERY DAY for 2 (TWO) days rOPINIRole 1 mg oral tablet (20 sources) Nonergot Dopamine Agonist Start: 01-15-2025 End: 04-15-2025 take 1 tablet by mouth once daily Start: 05-15-2024 End: 01-15-2025 take 2 tablets by mouth once daily Ropinirole 0.5 mg tablet Discontinued 1 mg PO DAILY 180 0 September 17, 2024 9:42am January 15, 2025 12:43pm Start: 05-10-2024 End: 05-15-2024 take 1 tablet by mouth once daily Ropinirole 0.5 mg tablet Discontinued 0.5 mg PO DAILY 90 0 May 10, 2024 9:52am May 15, 2024 7:29pm Start: 12-14-2023 End: 05-10-2024 take 0.5 mg by mouth once daily Ropinirole 1 mg tablet Discontinued 0.5 mg PO DAILY December 14, 2023 11:25am May 10, 2024 9:52am Start: 06-22-2022 rOPINIRole (RE QUIP) 0.5 mg tablet Take 0.5-1 mg by mouth daily at bedtime. 01/12/2023 Active Start: 11-29-2021 End: 12-14-2023 take 1 tablet by mouth once daily Ropinirole 1 mg tablet Discontinued 1 mg PO DAILY January 10, 2023 2:06pm December 14, 2023 11:27am Start: 09-25-2021 take 1 mg by mouth at bedtime ropinirole Active 1 MG SL/PO AT BEDTIME September 25, 2021 8:24pm Comment on above: Take 0.5-1 mg by jacqui th daily at bedtime. rosuvastatin calcium 20 mg oral tablet (20 sources) HMG-CoA Reductase Inhibitor Start: 04-27-2024 End: 03-21-2025 take 1 tablet by mouth once daily Start: 11-29-2021 End: 04-27-2024 take 1 tablet by mouth at bedtime Rosuvastatin 5 mg tablet Discontinued 5 mg PO AT BEDTIME 90 1 March 13, 2024 9:37am April 27, 2024 10:31am Start: 09-25-2021 take 5 mg by mouth at bedtime rosuvastatin Active 5 MG SL/PO AT BEDTIME September 25, 2021 8:24pm Sennosides (Senna) 8.6 mg tablet (16 sources) Start: 08-24-2024 take 2 tablets by mouth twice daily as needed for constipation Sennosides (Senna) 8.6 mg tablet Active 17.2 mg PO TWICE A DAY as needed for constipation 60 1 August 24, 2024 6:11pm Start: 08-24-2024 take 2 tablets by [facility] twice daily as needed for constipation Sennosides (Senna) 8.6 mg tablet Active 17.2 mg PO TWICE A DAY as needed for constipation 60 August 24, 2024 6:11pm Start: 05-15-2024 End: 08-24-2024 take 2 tablets by mouth twice daily as needed for constipation Sennosides (Senna) 8.6 mg tablet Discontinued 17.2 mg PO TWICE A DAY as needed for constipation May 15, 2024 1:00am August 24, 2024 6:11pm sennosides, residential 8.6 mg oral tablet (20 sources) Start: 05-15-2024 End: 08-24-2024 take 2 tablets by mouth twice daily as needed for constipation Start: 01-10-2023 End: 04-27-2024 take 1 capsule by mouth once daily as needed for constipation Sennosides (Senna) 8.6 mg capsule Discontinued 8.6 mg PO DAILY as needed for constipation 30 0 January 02, 2024 10:08pm April 27, 2024 10:11am vitamin b12 1 mg extended release oral tablet (11 sources) Vitamin B12 Start: 01-12-2023 take 1 tablet by mouth once VITAMIN B-12 1,000 mcg TbER Take 1 tablet by mouth every afternoon. 01/12/2023 Active Comment on above: Take 1 tablet by jacqui th every afternoon. Vitamin C 1000 mg oral tablet (5 sources) Start: 06-22-2022 Vitamin C 1000 mg oral tablet Dose : 1,000 mg = 1 tab(s), Oral, qDay, # 30 tab(s), 0 Refill(s) Start Date: 06/22/22 Status: Ordered Vitamin D3 25 mcg (1000 intl units) oral capsule (5 sources) Start: 06-22-2022 Vitamin D3 25 mcg (1000 intl units) oral capsule Dose : 25 mcg = 1 cap(s), Oral, Daily, # 30 cap(s), 0 Refill(s) Start Date: 06/22/22 Status: Ordered vitamin e 450 mg oral capsule (5 sources) Start: 04-25-2017 vitamin E 1000 intl units oral capsule Dose : 1,000 International_Unit = 1 cap(s), Oral, qDay, 0 Refill(s) Start Date: 04/25/17 Status: Ordered Start: 04-25-2017 vitamin E 1000 intl units oral capsule Dose : 1,000 International_Unit = 1 cap(s), Oral, qDay, 0 Refill(s) Start Date: 04/25/17 Status: Ordered Zinc (20 sources) Start: 11-29-2021 take 50 mg by mouth once daily Zinc Active 50 MG PO DAILY November 29, 2021 7:04pm Start: 11-29-2021 End: 05-15-2024 take 1 tablet by mouth once daily Zinc 50 mg Tablet Discontinued 50 mg PO DAILY November 29, 2021 12:00am May 15, 2024 7:24pm Start: 11-29-2021 take 50 mg by mouth once daily Zinc Active 50 MG PO DAILY November 29, 2021 12:00am Start: 11-29-2021 take 50 mg by mouth once daily Zinc Active 50 MG PO DAILY November 28, 2021 11:00pm zinc acetate 50 mg oral caps ule (9 sources) Start: 05-15-2024 take 1 capsule by [facility] once daily Completed/Discontinued Medications Medication Drug Class(es) Dates Sig (Normalized) Sig (Original) acetaminophen 325 mg / oxyCODONE hydrochloride 5 mg oral tablet (20 sources) Opioid Agonist Start: 01-19-2021 End: 02-13-2021 Oxycodone-Acetamino phen 5-325 mg tablet Discontinued 1 {tbl} PO 3 TIMES DAILY NEEDED as needed for Pain January 19, 2021 12:00am February 13, 2021 2:30pm Start: 01-19-2021 End: 02-13-2021 take 1 tablet by mouth three times daily as needed Oxycodone-Acetaminophen Discontinued 1 TABLET PO 3 TIMES DAILY NEEDED January 19, 2021 12:00am February 13, 2021 2:30pm Start: 05-04-2020 End: 05-07-2020 Oxycodone-Acetaminophen 1 TA BLET tablet Discontinued 1 {tbl} PO EVERY 6 HOURS NEEDED as needed for Pain 12 3 0 May 04, 2020 May 06, 2020 12:00am May 07, 2020 12:02am Low back pain Start: 05-04-2020 End: 05-07-2020 take 1 tablet by mouth every six hours as needed Oxycodone-Acetaminophen Discontinued 1 TABLET PO EVERY 6 HOURS NEEDED 12 3 May 04, 2020 May 07, 2020 12:02am amLODIPine 10 mg oral tablet (20 sources) Dihydropyridine Calcium Channel Altaf Start: 03-24-2022 End: 01-08-2025 take 1 tablet by mouth once daily at bedtime Amlodipine 10 mg tablet Discontinued 0 .ROUTE .COMPLEX 90 1 December 14, 2024 4:23pm January 08, 2025 8:16am On Hold: BP LOW TAKE 1 TABLET BY MOUTH EVERY DAY AT BEDTIME Start: 11-29-2021 End: 03-24-2022 take 1 tablet by mouth at bedtime Amlodipine 5 mg tablet Discontinued 5 mg PO AT BEDTIME November 29, 2021 12:00am March 24, 2022 11:51am Start: 09-04-2018 End: 08-10-2019 take 1 tablet by mouth once daily Amlodipine 5 MG tablet Discontinued 5 mg PO DAILY September 04, 2018 1:00am August 10, 2019 9:58am BP Comment on above: Take 10 mg by mouth daily at bedtime. amoxicillin 875 mg / clavulanate 125 mg oral tablet (10 sources) Penicillin-class Antibacterial Start: 09-30-2024 End: 10-07-2024 Amoxicillin-Pot Clavulanate 875-125 mg tablet Discontinued 1 {tbl} PO TWICE A DAY 14 7 0 September 30, 2024 12:00am October 06, 2024 12:00am October 07, 2024 6:34am Start: 01-31-2023 End: 02-05-2023 take 1 tablet by mouth twice daily amoxicillin-clavulanic acid (AUGMENTIN) 875-125 mg per tablet Indications: Infected finger abrasion, initial encounter , Dog scratch Take 1 tablet by mouth twice daily for 5 days. 10 tablet 0 01/31/2023 02/05/2023 Active Comment on above: Take 1 tablet [address] [facility] twice daily for 5 days. bacitracin 0.5 unt/mg topical ointment (9 sources) Start: 03-11-2024 End: 04-27-2024 Bacitracin 500 unit/gram ointment Discontinued 1 NMA TOPICAL DAILY 28 5 0 March 11, 2024 12:00am April 27, 2024 10:08am baclofen 10 mg oral tablet (20 sources) gamma-Aminobutyri c Acid-ergic Agonist Start: 08-07-2021 End: 08-14-2021 take 1 tablet by mouth three times daily as needed for muscle spasms Baclofen 10 mg Tablet Discontinued 10 mg PO THREE TIMES A DAY as needed for muscle spasms August 07, 2021 1:00am August 14, 2021 9:10am Start: 01-05-2021 End: 05-29-2021 take 1 tablet by mouth three times daily Baclofen 10 mg tablet Discontinued 10 mg PO THREE TIMES A DAY 90 30 0 February 13, 2021 2:33pm May 29, 2021 10:08pm Check with primary doctor 1 tablet po tid Start: 04-25-2017 baclofen 20 mg oral tablet Dose : 20 mg = 1 tab(s), Oral, TID, 0 Refill(s) Start Date: 04/25/17 Status: Ordered benzonatate 100 mg oral capsule (20 sources) Non-narcotic Antitussive Start: 01-10-2023 End: 04-13-2023 take 1 capsule by mouth twice daily as needed Benzonatate 100 mg capsule Discontinued 100 mg PO TWICE A DAY as needed January 10, 2023 12:00am April 13, 2023 1:53pm Start: 06-22-2022 take 1 capsule by [facility] three times daily as needed benzonatate 100 mg oral capsule TAKE 1 CAPSULE THREE TIMES DAILY NEEDED Start Date: 06/22/22 Status: Ordered cephalexin 500 mg oral capsule (15 sources) Cephalosporin Antibacterial Start: 07-01-2023 End: 07-11-2023 take 1 capsule by mouth every twelve hours Cephalexin 500 mg capsule Discontinued 500 mg PO Q12H 20 10 0 July 01, 2023 1:00am July 10, 2023 1:00am July 11, 2023 1:05am cetirizine hydrochloride 10 mg oral tablet (20 sources) Histamine-1 Receptor Antagonist Start: 05-29-2021 End: 05-08-2024 take 1 tablet by mouth once daily as needed Cetirizine 10 mg tablet Discontinued 10 mg PO DAILY as needed for allergy symptoms 07 10April 11, 2024 4:46pm May 08, 2024 10:34am Cetirizine 10 mg cap Take by mouth daily at bedtime. Active Comment on above: Take by mouth daily at bedtime. ciprofloxacin 500 mg oral tablet (12 sources) Quinolone Antimicrobial Start: 08-04-19 End: 08-09-19 take 1 tablet by mouth every twelve hours Ciprofloxacin Hcl 500 mg tablet Discontinued 500 mg PO Q12H 10 5 0 August 04, 2023 1:00am August 08, 2023 1:00am August 09, 2023 1:05am Leg wound, right Unspecified open wound, right lower leg, initial encounter codeine phosphate 2 mg/ml / guaiFENesin 40 mg/ml oral solution (20 sources) Opioid Agonist Start: 08-08-19 End: 08-24-19 take 5-10 mL by mouth every six hours as needed for cough Codeine-Guaifenesin 10-200 mg/5 mL liquid Discontinued 0 PO EVERY 6 HOURS as needed for cough 120 0 August 08, 2024 1:00am August 24, 2024 3:48pm 5-10ml orally every 6 hours PRN; Start: 07-09-2019 End: 08-10-2019 take 1 mL by mouth every four hours as needed for cough Codeine-Guaifenesin 120 ML liquid Discontinued 10 mL PO EVERY 4 HOURS NEEDED as needed for Cough July 09, 2019 1:00am August 10, 2019 9:54am Start: 07-09-2019 End: 08-10-2019 take 1 mL by mouth every four hours as needed Codeine-Guaifenesin Discontinued 10 ML PO EVERY 4 HOURS NEEDED July 09, 2019 1:00am August 10, 2019 9:54am cyclobenzaprine hydrochloride 10 mg oral tablet (20 sources) Muscle Relaxant Start: 05-20-2020 End: 05-28-2020 take 5 mg by mouth three times daily as needed Cyclobenzaprine 10 MG tablet Discontinued 5 mg PO 3 TIMES DAILY NEEDED as needed for Back muscle strain 21 7 May 20, 2020 1:00am May 26, 2020 1:00am May 28, 2020 8:36pm Start: 05-20-2020 End: 05-28-2020 take 5 mg by mouth three times daily as needed Cyclobenzaprine Discontinued 5 MG PO 3 TIMES DAILY NEEDED 21 7 May 20, 2020 1:00am May 28, 2020 8:36pm dexamethasone 4 mg oral tablet (20 sources) Corticosteroid Start: 12-29-2020 End: 12-29-2020 take 1 tablet by mouth at breakfast Dexamethasone 4 mg Tablet Discontinued 4 mg PO WITH BREAKFAST 0 0 December 29, 2020 12:00am December 29, 2020 6:54pm 0.4 ml enoxaparin sodium 100 mg/ml prefilled syringe (20 sources) Low Molecular Weight Heparin Start: 12-29-2020 End: 12-29-2020 Enoxaparin 40 mg/0.4 mL Syringe Discontinued 40 mg SC DAILY 0 0 December 29, 2020 12:00am December 29, 2020 6:54pm famotidine 40 mg oral tablet (20 sources) Histamine-2 Receptor Antagonist Start: 11-29-2021 End: 01-08-2025 take 1 tablet by mouth once daily Famotidine 40 mg tablet Discontinued 40 mg PO DAILY 90 0 June 22, 2024 12:15pm January 08, 2025 8:57am On Hold: Order Changed Start: 09-03-2019 End: 05-28-2020 take 1 tablet by mouth once daily Famotidine 40 MG tablet Discontinued 40 mg PO DAILY September 03, 2019 1:00am May 28, 2020 8:36pm GERD fluconazole 100 mg oral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 OSTEOPENIA. Recommend follow-up as clinically warranted. Reading Location: [facility] CC: Dr. 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 Dionne Magaña MD Status: [facility] Study: Dexa Bone Density/Append Skel Date of Exam: Exam# [id number] Ordering Dr: Dionne Magaña MD PROCEDURE: DEXA BONE DENSITY/APPEND SKEL 01/17/2025 REASON FOR EXAM: SCREENING F, age 79 y/o . Postmenopausal. TECHNIQUE: DEXA BONE DENSITY/APPEND SKEL COMPARISON: None FINDINGS: BMD and T-SCORES Left femoral neck: 0.615 g/cm2, T-score -2.1 Femoral neck comparison data not recommended for monitoring change. Left total hip: 0.768 g/cm2, T-score -1.4 Left 1/3 radius: 0.446 g/cm2, T-score -2.5 The World Health Organization has defined the following categories based on bone density: Normal bone density: T-score equal to or greater than -1.0 Osteopenia: T-score between -1.0 and -2.5 Osteoporosis: T-score equal to or less than -2.5 The patient does meet the pharmacological treatment recommendations for prevention of osteoporosis. BD/Dexa Bone Density/Append Skel IMPRESSION: OSTEOPENIA. Recommend follow-up as clinically warranted. Reading Location: [facility] CC: Dr. 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 Dionne powell MD Age/Sex: 79/F Location: [facility] Status: Signed Intake Vital Signs 09/13/24 14:23 12/28/24 12:19 01/08/25 07:59 Height 5 ft 4 in 5 ft 4 in 5 ft 4 in Weight: 151 lb 4 oz BMI 25.9 BP 128/72 H Blood Pressure Location Lt brachial Position Sitting Respiration 16 Pulse 86 Pulse Source Monitor Temp 97.6 F L Temp Source Temporal Pulse Oximetry (%) 94 Oxygen Delivery Method room air Intake Visit Reasons: 3 M FU Chief Complaint: fu 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: No Accompanied by: Self Is patient in pain?: No Allergies clindamycin Allergy (Mild, Verified 01/08/25 07:51) rash codeine phosphate (From Tylenol-Codeine #3) Adverse Reaction (Severe, Verified 01/08/25 07:51) Nausea Medications ???Medication ???Instructions ???Recorded ???Confirmed ???Type albuterol sulfate 90 mcg/actuation 2 puff inhalation Q6H PRN sob 01/08/25 History aerosol inhaler cholecalciferol (vitamin D3) 25 25 mcg PO DAILY 11/29/21 01/08/25 History mcg (1,000 unit) tablet (Vitamin D3) triamcinolone acetonide 55 mcg 1 spray intranasal QHS PRN allergy 11/29/21 01/08/25 History nasal spray aerosol (Nasacort) symptoms loperamide 2 mg tablet 2 mg PO Q6H PRN nausea and vomitin g 01/10/23 01/08/25 History guaifenesin 600 mg tablet, 600 mg PO BID PRN cough 06/15/23 0 01/08/25 History extended release 12 hr (Mucinex) mecobalamin (vitamin B12) 1,000 1,000 mcg PO DAILY #30 tabs 01/08/25 Rx mcg chewable tablet aspirin 81 mg chewable tablet 81 mg PO DAILY #30 tabs 12/22/23 0 01/08/25 Rx gabapentin 300 mg capsule 300 mg PO QHS #30 caps 02/01/24 Rx fluticasone 500 mcg-salmeterol 50 1 ea inhalation BID 03/02/2408/04 History mcg/dose blistr powdr for inhalation (Wixela Inhub) acetaminophen 325 mg capsule 650 mg PO Q6H PRN fever or pain 01/08/25 History (Tylenol) ascorbic acid (vitamin C) 1,000 mg 0.5 g PO DAILY 04/27/24 01/08/25 History capsule hydrocodone-acetaminophen 5-325mg 1 tab PO Q8H PRN Pain 04/27/24 History 5mg-325mg cetirizine 10 mg tablet 10 mg PO DAILY PRN allergy 4 01/08/25 Rx symptoms #30 TABLETS dicyclomine 10 mg capsule 10 mg PO BID PRN abdominal pain 01/08/25 History meloxicam 15 mg tablet 7.5 mg PO BID 05/15/24 01/08/25 Hi story zinc acetate 50 mg (zinc) capsule 50 mg PO DAILY 05/15/24 01/08/25 History (Galzin) ondansetron 4 mg disintegrating 4 mg PO Q6H PRN nausea and 4 01/08/25 Rx tablet vomiting #20 tabs compress.stocking,knee,reg ,med #2 ea 08/22/24 01/08/25 Rx prednisone 10 mg tablet 10 mg PO BID #10 tabs 08/22/2408/04 Rx sennosides 8.6 mg tablet (senna) 17.2 mg (2 x 8.6 mg) PO BID PRN 01/08/25 Rx constipation #60 tabs pantoprazole 40 mg tablet,delayed 40 mg PO QDAY #90 tabs 09/04/24 0 01/08/25 Rx release ropinirole 0.5 mg tablet 1 mg (2 x 0.5 mg) PO DAILY #180 01/08/25 Rx tabs olmesartan 20 mg tablet 10 mg (1/2 x 20 mg) PO QDAY #90 01/08/25 Rx tabs rosuvastatin 20 mg tablet 20 mg PO DAILY #90 tabs 10/23/24 0 01/08/25 Rx mirtazapine 7.5 mg tablet 7.5 mg PO QHS #90 tabs 11/07/24 Rx ferrous sulfate 325 mg (65 mg 325 mg PO DAILY Supplement #90 tab s 11/18/24 01/08/25 Rx iron) tablet olmesartan 5 mg tablet 5 mg PO QDAY #30 tabs 12/21/2408/04 Rx levothyroxine 175 mcg tablet 175 mcg PO QDAY #90 tabs 01/08/25 01/08/25 Rx (Synthroid) Have you fallen in the past year?: No [facility] Medical History Post-menopausal History of steroid therapy Arthritis Excessive bleeding Back pain Difficulty swallowing History of diverticulitis Gastric reflux History of echocardiogram Cardiology follow-up encounter Type 2 diabetes mellitus Vasovagal syncope Essential hypertension Bradycardia Hypothyroidism Hyperlipidemia Osteoarthritis Debility Wears glasses Wears dentures Thyroid disease Easy bruising Shortness of breath on exertion Leg cramps History of edema History of rheumatic fever Localized edema Bleeding tendency Injury of head and neck Chronic pain Gastroesophageal reflux disease Leukocytosis Diabetes mellitus Lumbar spinal stenosis Right lumbar radiculopathy Allergic rhinitis Vitamin B12 deficiency Restless leg syndrome Bilateral sacral insufficiency fracture with delayed healing History of colon polyps Asthma Chronic low back pain Surgical History (Reviewed 01/08/25 (more content not included)... Normal [facility] Internal Medicine Office Vis amy 12-28-2024 Internal Medicine Office Visit [facility] [address] [place] [address] [address] [place] [address] OFFICE VISIT Date of Service: 12/28/24 MR#: [id number] Acct: [id number] Name: JERRELL STRICKLAND Rep #: [id number] : 1945 Provider: VICTOR M Ni Age/Sex: 79/F Location[place] [facility] Status: Signed Intake Vital Signs 12/21/24 07:32 12/28/24 12:19 Height 5 ft 4 in 5 ft 4 in Weight: 154 lb 150 lb BMI 26.4 25.7 BP 94/58 L 138/80 H Blood Pressure Location Lt brachial Rt brachial Position Sitting Sitting Respiration 18 16 Pulse 93 91 Pulse Source Monitor Monitor Temp 97.6 F L 98 F Temp Source Temporal Temporal Pulse Oximetry (%) 94 92 Oxygen Delivery Method room air room air Intake Visit Reasons: BP FOLLOW UP Chief Complaint: fu 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: No Accompanied by: Self Is patient in pain?: No Allergies clindamycin Allergy (Mild, Verified 12/28/24 12:18) rash codeine phosphate (From Tylenol-Codeine #3) Adverse Reaction (Severe, Verified 12/28/24 12:18) Nausea Medications ???Medication ???Instructions ???Recorded ???Confirmed ???Type albuterol sulfate 90 mcg/actuation 2 puff inhalation Q6H PRN sob 12/28/24 History aerosol inhaler cholecalciferol (vitamin D3) 25 25 mcg PO DAILY 11/29/21 12/28/24 History mcg (1,000 unit) tablet (Vitamin D3) triamcinolone acetonide 55 mcg 1 spray intranasal QHS PRN allergy 11/29/21 12/28/24 History nasal spray aerosol (Nasacort) symptoms loperamide 2 mg tablet 2 mg PO Q6H PRN nausea and vomitin g 01/10/23 12/28/24 History guaifenesin 600 mg tablet, 600 mg PO BID PRN cough 06/15/23 0 12/28/24 History extended release 12 hr (Mucinex) mecobalamin (vitamin B12) 1,000 1,000 mcg PO DAILY #30 tabs 12/28/24 Rx mcg chewable tablet aspirin 81 mg chewable tablet 81 mg PO DAILY #30 tabs 12/22/23 0 12/28/24 Rx gabapentin 300 mg capsule 300 mg PO QHS #30 caps 02/01/24 Rx fluticasone 500 mcg-salmeterol 50 1 ea inhalation BID 03/02/2412/10 History mcg/dose blistr powdr for inhalation (Jayla Inhub) levothyroxine 200 mcg tablet 200 mcg PO DAILY #90 tabs 03/22/24 12/28/24 Rx acetaminophen 325 mg capsule 650 mg PO Q6H PRN fever or pain 12/28/24 History (Tylenol) ascorbic acid (vitamin C) 1,000 mg 0.5 g PO DAILY 04/27/24 12/28/24 History capsule hydrocodone-acetaminophen 5-325mg 1 tab PO Q8H PRN Pain 04/27/24 History 5mg-325mg cetirizine 10 mg tablet 10 mg PO DAILY PRN allergy 4 12/28/24 Rx symptoms #30 TABLETS dicyclomine 10 mg capsule 10 mg PO BID PRN abdominal pain 12/28/24 History meloxicam 15 mg tablet 7.5 mg PO BID 05/15/24 12/28/24 Hi story Held on 05/17/24. Instructions: Hold for 5 days. zinc acetate 50 mg (zinc) capsule 50 mg PO DAILY 05/15/24 12/28/24 History (Galzin) ondansetron 4 mg disintegrating 4 mg PO Q6H PRN nausea and 4 12/28/24 Rx tablet vomiting #20 tabs famotidine 40 mg tablet 40 mg PO DAILY #90 tabs 06/22/24 0 12/28/24 Rx Held on 07/06/24. Instructions: Order Changed compress.stocking,knee,reg ,med #2 ea 08/22/24 12/28/24 Rx prednisone 10 mg tablet 10 mg PO BID #10 tabs 08/22/24 Rx sennosides 8.6 mg tablet (senna) 17.2 mg (2 x 8.6 mg) PO BID PRN 12/28/24 Rx constipation #60 tabs pantoprazole 40 mg tablet,delayed 40 mg PO QDAY #90 tabs 09/04/24 0 12/28/24 Rx release ropinirole 0.5 mg tablet 1 mg (2 x 0.5 mg) PO DAILY #180 12/28/24 Rx tabs olmesartan 20 mg tablet 10 mg (1/2 x 20 mg) PO QDAY #90 12/28/24 Rx tabs rosuvastatin 20 mg tablet 20 mg PO DAILY #90 tabs 10/23/24 0 12/28/24 Rx mirtazapine 7.5 mg tablet 7.5 mg PO QHS #90 tabs 11/07/24 Rx ferrous sulfate 325 mg (65 mg 325 mg PO DAILY Supplement #90 tab s 11/18/24 12/28/24 Rx iron) tablet amlodipine 10 mg tablet See Rx Instructions .Route 5 12/28/24 Rx Held on 12/21/24. .COMPLEX #90 tabs Instructions: BP LOW olmesartan 5 mg tablet 5 mg PO QDAY #30 tabs 12/21/24 Rx Have you fallen in the past year?: No Nurse's Note: bp running higher for the last few days states she feels much better [facility] Medical History Post-menopausal History of steroid therapy Arthritis Excessive bleeding Back pain Difficulty swallowing History of diverticulitis Gastric reflux History of echocardiogram Cardiology follow-up encounter Type 2 diabetes mellitus Vasovagal syncope Essential hypertension Bradycardia Hypothyroidism Hyperlipidemia Osteoarthritis Debility Wears glasses Wears dentures Thyroid disease Easy bruising Shortness of breath on exertion Leg cramps History of edema History of rheum (more content not included)... Normal [facility] Absolute lymphocyte countOrd ered By: Dayday Hairston on 12-21-2024 Lymphocytes Auto (Unsp spec) [#/Vol] 2.37 10*3/uL 0.83-4.51 [facility] Absolute neutrophil countOrd ered By: Dayday Hairston on 12-21-2024 Neutrophils (Bld) [#/Vol] 6.7 10*3/uL 2.0-7.7 [facility] Anion gap in Serum or Plasma Ordered By: Dayday Hairston on 12-21-2024 Anion gap [Moles/Vol] 12 mmol/L 5-15 [facility] Automated lymphocyte count a s percentage of total leukocytesOrdered By: Dayday Hairston on 12-21-2024 Lymphocytes/100 WBC Auto (Unsp spec) 21.8 % 19-41 [facility] BUN/creatinine ratioOrdered By: Dayday Hairston on 12-21-2024 Urea nitrogen/Creatinine [Mass ratio] 21.9 mg/mg High 10-20 [facility] Basophil percentageOrdered B y: Dayday Hairston on 12-21-2024 Basophils/100 WBC (Bld) 0.8 % 0-1 [facility] [place] [facility] Bilirubin, totalOrdered By: Dayday Hairston on 12-21-2024 Bilirubin [Mass/Vol] 0.26 mg/dL 0.00-1.30 [facility] CBC W/Diff, Automatedon 12-09-2024 Absolute Lymph 2.37 X10 3/uL Normal 0.83-4.51 [facility] Comment on above: Performed By: #### L 506.0400, L501.9310, L100.0100, L500.4100, L500.4050, L501.9520 #### [facility] [address] [place], [address] Absolute Neut 6.7 X10 3/uL Normal 2.0-7.7 [facility] Comment on above: Performed By: #### L 506.0400, L501.9310, L100.0100, L500.4100, L500.4050, L501.9520 #### [facility] [address] [place], [address] Basophils/100 WBC (Bld) 0.8 % Normal 0-1 [facility] [place] [facility] Comment on above: Performed By: #### L 506.0400, L501.9310, L100.0100, L500.4100, L500.4050, L501.9520 #### [facility] [address] [place], [address] Eosinophils/100 WBC (Bld) 5.1 % High 0-5 [facility] Comment on above: Performed By: #### L 506.0400, L501.9310, L100.0100, L500.4100, L500.4050, L501.9520 #### [facility] [address] [place], [address] Erythrocyte distribution width (RBC) [Ratio] 13.2 % Normal 11.6-14.6 [facility] Comment on above: Performed By: #### L 506.0400, L501.9310, L100.0100, L500.4100, L500.4050, L501.9520 #### [facility] [address] [place], [address] Hematocrit (Bld) [Volume fraction] 33.9 % Low 37-47 [facility] Comment on above: Performed By: #### L 506.0400, L501.9310, L100.0100, L500.4100, L500.4050, L501.9520 #### [facility] [address] [place], [address] Hemoglobin (Bld) [Mass/Vol] 11.0 g/dL Low 12.0-15.0 [facility] Comment on above: Performed By: #### L 506.0400, L501.9310, L100.0100, L500.4100, L500.4050, L501.9520 #### [facility] [address] [place], [address] IG% 0.400 Normal 0.0-0.9 [facility] Comment on above: Result Comment: IG% - Immature Granulocytes (promyelocytes, myelocytes and metamyelocytes) > 1% indicates that a LEFT SHIFT is Present. Performed By: #### L 506.0400, L501.9310, L100.0100, L500.4100, L500.4050, L501.9520 #### [facility] [address] [place], [address] Lymphocytes/100 WBC (Bld) 21.8 % Normal 19-41 [facility] Comment on above: Performed By: #### L 506.0400, L501.9310, L100.0100, L500.4100, L500.4050, L501.9520 #### [facility] [address] [place], [address] MCH (RBC) [Entitic mass] 33.7 pg High 27.0-32.0 [facility] Comment on above: Performed By: #### L 506.0400, L501.9310, L100.0100, L500.4100, L500.4050, L501.9520 #### [facility] [address] [place], [address] MCHC (RBC) [Mass/Vol] 32.4 g/dL Normal 32-36 [facility] Comment on above: Performed By: #### L 506.0400, L501.9310, L100.0100, L500.4100, L500.4050, L501.9520 #### [facility] [address] [place], [address] MCV (RBC) [Entitic vol] 104.0 fL High 81-99 [facility] Comment on above: Performed By: #### L 506.0400, L501.9310, L100.0100, L500.4100, L500.4050, L501.9520 #### [facility] [address] [place], [address] Monocytes/100 WBC (Bld) 10.0 % Normal 0-10 [facility] Comment on above: Performed By: #### L 506.0400, L501.9310, L100.0100, L500.4100, L500.4050, L501.9520 #### [facility] [address] [place], [address] Neutrophils/100 WBC (Bld) 61.9 % Normal 47-70 [facility] Comment on above: Performed By: #### L 506.0400, L501.9310, L100.0100, L500.4100, L500.4050, L501.9520 #### [facility] [address] [place], [address] Nucleated RBC (Bld) [#/Vol] 0 10*3/uL Normal 0-5 [facility] Comment on above: Performed By: #### L 506.0400, L501.9310, L100.0100, L500.4100, L500.4050, L501.9520 #### [facility] [address] [place], [address] Platelet mean volume (Bld) [Entitic vol] 11.7 fL Normal 6.2-12.0 [facility] Comment on above: Performed By: #### L 506.0400, L501.9310, L100.0100, L500.4100, L500.4050, L501.9520 #### [facility] [address] [place], [address] Platelets (Bld) [#/Vol] 271 10*3/uL Normal 150-450 [facility] Comment on above: Performed By: #### L 506.0400, L501.9310, L100.0100, L500.4100, L500.4050, L501.9520 #### [facility] [address] [place], [address] RBC (Bld) [#/Vol] 3.26 10*6/uL Low 4.2-5.4 [facility] Comment on above: Performed By: #### L 506.0400, L501.9310, L100.0100, L500.4100, L500.4050, L501.9520 #### [facility] [address] [place], [address] RDW SD 51.0 fl High 35.1-43.9 [facility] Comment on above: Performed By: #### L 506.0400, L501.9310, L100.0100, L500.4100, L500.4050, L501.9520 #### [facility] [address] [place], [place], [address] WBC (Bld) [#/Vol] 10.9 10*3/uL Normal 4.4-11.0 [facility] Comment on above: Performed By: #### L 506.0400, L501.9310, L100.0100, L500.4100, L500.4050, L501.9520 #### [facility] [address] [place], [place], [address] Calculated very low density lipoprotein (VLDL) cholesterol measurementOrdered By: Dayday Hairston on 12-21-2024 Calculated very low density lipoprotein (VLDL) cholesterol measurement 14 mg/dL 5-40 [facility] Carbon dioxide, total [Moles /volume] in Central venous bloodOrdered By: Dayday Hairston on 12-21-2024 CO2 [Moles/Vol] 22.8 mmol/L 21.0-32.0 [facility] Chloride assayOrdered By: Stan Hairston on 12-21-2024 Chloride [Moles/Vol] 105 mmol/L 98-108 [facility] Comprehensive Metabolic Prof ilon 12-21-2024 Albumin [Mass/Vol] 4.0 g/dL Normal 3.4-4.8 [facility] Comment on above: Performed By: #### L 506.0400, L501.9310, L100.0100, L500.4100, L500.4050, L501.9520 ####[facility] [address], [address] Albumin/Globulin [Mass ratio] 1.3 {ratio} Normal 0.9-2.4 [facility] Comment on above: Performed By: #### L 506.0400, L501.9310, L100.0100, L500.4100, L500.4050, L501.9520 ####[facility] [address] [place], [address] ALK PHOS 108 U/L High 35-104 [facility] Comment on above: Performed By: #### L 506.0400, L501.9310, L100.0100, L500.4100, L500.4050, L501.9520 ####[facility] [address] [place], [address] ALT [Catalytic activity/Vol] 20 U/L Normal <=34 [facility] Comment on above: Performed By: #### L 506.0400, L501.9310, L100.0100, L500.4100, L500.4050, L501.9520 ####[facility] [address] [place], [address] AST [Catalytic activity/Vol] 20 U/L Normal <=31 [facility] Comment on above: Performed By: #### L 506.0400, L501.9310, L100.0100, L500.4100, L500.4050, L501.9520 ####[facility] [address] [place], [address] Bilirubin [Mass/Vol] 0.26 mg/dL Normal 0.00-1.30 [facility] Comment on above: Performed By: #### L 506.0400, L501.9310, L100.0100, L500.4100, L500.4050, L501.9520 ####[facility] [address] [place], [address] BUN/CRE 21.9 RATIO High 10-20 [facility] Comment on above: Performed By: #### L 506.0400, L501.9310, L100.0100, L500.4100, L500.4050, L501.9520 ####[facility] [address] [place], [address] Calcium [Mass/Vol] 9.4 mg/dL Normal 7.6-11.0 [facility] Comment on above: Performed By: #### L 506.0400, L501.9310, L100.0100, L500.4100, L500.4050, L501.9520 ####[facility] [address] [place], [address] Chloride [Moles/Vol] 105 mmol/L Normal 98-108 [facility] Comment on above: Performed By: #### L 506.0400, L501.9310, L100.0100, L500.4100, L500.4050, L501.9520 ####[facility] [address] [place], [address] CO2 [Moles/Vol] 22.8 mmol/L Normal 21.0-32.0 [facility] Comment on above: Performed By: #### L 506.0400, L501.9310, L100.0100, L500.4100, L500.4050, L501.9520 ####[facility] [address] [place], [address] Creatinine [Mass/Vol] 1.01 mg/dL Normal 0.70-1.20 [facility] Comment on above: Performed By: #### L 506.0400, L501.9310, L100.0100, L500.4100, L500.4050, L501.9520 ####[facility] [address] [place], [address] GAP 12 Normal 5-15 [facility] Comment on above: Performed By: #### L 506.0400, L501.9310, L100.0100, L500.4100, L500.4050, L501.9520 ####[facility] [address] [place], [address] GFR/1.73 sq M.predicted among non-blacks MDRD (S/P/Bld) [Vol rate/Area] 56 mL/min/{1.73_m2} Low >60 [facility] Comment on above: Result Comment: mL/m in/1.73m2 CKD-EPI Creatinine Equation (2020) Performed By: #### L 506.0400, L501.9310, L100.0100, L500.4100, L500.4050, L501.9520 ####[facility] [address] [place], [address] Globulin (S) [Mass/Vol] 3.1 g/dL Normal 2.2-4.2 [facility] Comment on above: Performed By: #### L 506.0400, L501.9310, L100.0100, L500.4100, L500.4050, L501.9520 ####[facility] [address] [place], [address] Glucose [Mass/Vol] 92 mg/dL Normal 70-99 [facility] Comment on above: Performed By: #### L 506.0400, L501.9310, L100.0100, L500.4100, L500.4050, L501.9520 ####[facility] [address] [place], [address] Potassium [Moles/Vol] 4.5 mmol/L Normal 3.3-5.1 [facility] Comment on above: Performed By: #### L 506.0400, L501.9310, L100.0100, L500.4100, L500.4050, L501.9520 ####[facility] [address] [place], [address] Sodium [Moles/Vol] 139 mmol/L Normal 133-145 [facility] Comment on above: Performed By: #### L 506.0400, L501.9310, L100.0100, L500.4100, L500.4050, L501.9520 ####[facility] [address] [place], [place], [address] T PROT 7.1 g/dL Normal 5.9-8.4 [facility] Comment on above: Performed By: #### L 506.0400, L501.9310, L100.0100, L500.4100, L500.4050, L501.9520 ####[facility] [address] [place], [address] Urea nitrogen [Mass/Vol] 22 mg/dL High 4-19 [facility] Comment on above: Performed By: #### L 506.0400, L501.9310, L100.0100, L500.4100, L500.4050, L501.9520 ####[facility] [address] [place], [place], [address] Eosinophil percentageOrdered By: Dayday Hairston on 12-21-2024 Eosinophils/100 WBC (Bld) 5.1 % High 0-5 [facility] Erythrocyte distribution wid th ratioOrdered By: Dayday Hairston on 12-21-2024 Erythrocyte distribution width (RBC) [Ratio] 13.2 % 11.6-14.6 [facility] Erythrocyte distribution wid th standard deviationOrdered By: Dayday Hairston on 12-21-2024 Erythrocyte distribution width (RBC) [Ratio] 51.0 fl High 35.1-43.9 [facility] Glomerular filtration rate ( GFR) estimation/1.73 sq m using serum, plasma, or whole bOrdered By: Dayday Hairston on 12-21-2024 GFR/1.73 sq M.predicted among non-blacks MDRD (S/P/Bld) [Vol rate/Area] 56 mL/min/{1.73_m2} Low >60 [facility] Comment on above: mL/min/1.73m2 CKD-EP I Creatinine Equation (2020) Hematocrit Auto (Bld) [Volum e fraction]Ordered By: Dayday Hairston on 12-21-2024 Hematocrit (Bld) [Volume fraction] 33.9 % Low 37-47 [facility] Hemoglobin measurementOrdere d By: Dayday Hairston on 12-21-2024 Hemoglobin (Bld) [Mass/Vol] 11.0 g/dL Low 12.0-15.0 [facility] Immature granulocytes/100 WB C Auto (Bld)Ordered By: Dayday Hairston on 12-21-2024 Immature granulocytes/100 WBC (Bld) 0.400 % 0.0-0.9 [facility] Comment on above: IG% - Immature Granu locytes (promyelocytes, myelocytes and metamyelocytes) > 1% indicates that a LEFT SHIFT is Present. Internal Medicine Office Vis iton 12-21-2024 Internal Medicine Office Visit [facility] [address] [place] [address] OFFICE VISIT Date of Service: 12/21/24 MR#: [id number] Acct: [id number] Name: JERRELL STRICKLAND Magdi Rep #: [id number] : 1945 Provider: VICTOR M Ni Age/Sex: 79/F [place] [facility] Status: Signed Intake Vital Signs 09/13/24 14:23 12/21/24 07:32 Height 5 ft 4 in 5 ft 4 in Weight: 154 lb BMI 26.4 BP 94/58 L Blood Pressure Location Lt brachial Position Sitting Respiration 18 Pulse 93 Pulse Source Monitor Temp 97.6 F L Temp Source Temporal Pulse Oximetry (%) 94 Oxygen Delivery Method room air Intake Visit Reasons: COLD SWEATS, SHAKING Chief Complaint: COLD SWEATS, SHAKING Is patient in pain?: No Allergies clindamycin Allergy (Mild, Verified 12/21/24 07:32) rash codeine phosphate (From Tylenol-Codeine #3) Adverse Reaction (Severe, Verified 12/21/24 07:32) Nausea Medications ???Medication ???Instructions ???Recorded ???Confirmed ???Type albuterol sulfate 90 mcg/actuation 2 puff inhalation Q6H PRN sob 12/21/24 History aerosol inhaler cholecalciferol (vitamin D3) 25 25 mcg PO DAILY 11/29/21 12/21/24 History mcg (1,000 unit) tablet (Vitamin D3) triamcinolone acetonide 55 mcg 1 spray intranasal QHS PRN allergy 11/29/21 12/21/24 History nasal spray aerosol (Nasacort) symptoms loperamide 2 mg tablet 2 mg PO Q6H PRN nausea and vomitin g 01/10/23 12/21/24 History guaifenesin 600 mg tablet, 600 mg PO BID PRN cough 06/15/23 0 12/21/24 History extended release 12 hr (Mucinex) mecobalamin (vitamin B12) 1,000 1,000 mcg PO DAILY #30 tabs 12/21/24 Rx mcg chewable tablet aspirin 81 mg chewable tablet 81 mg PO DAILY #30 tabs 12/22/23 0 12/21/24 Rx gabapentin 300 mg capsule 300 mg PO QHS #30 caps 02/01/24 Rx fluticasone 500 mcg-salmeterol 50 1 ea inhalation BID 03/02/2412/09 History mcg/dose blistr powdr for inhalation (Wixela Inhub) levothyroxine 200 mcg tablet 200 mcg PO DAILY #90 tabs 03/22/24 12/21/24 Rx acetaminophen 325 mg capsule 650 mg PO Q6H PRN fever or pain 12/21/24 History (Tylenol) ascorbic acid (vitamin C) 1,000 mg 0.5 g PO DAILY 04/27/24 12/21/24 History capsule hydrocodone-acetaminophen 5-325mg 1 tab PO Q8H PRN Pain 04/27/24 History 5mg-325mg cetirizine 10 mg tablet 10 mg PO DAILY PRN allergy 4 12/21/24 Rx symptoms #30 TABLETS dicyclomine 10 mg capsule 10 mg PO BID PRN abdominal pain 12/21/24 History meloxicam 15 mg tablet 7.5 mg PO BID 05/15/24 12/21/24 Hi story Held on 05/17/24. Instructions: Hold for 5 days. zinc acetate 50 mg (zinc) capsule 50 mg PO DAILY 05/15/24 12/21/24 History (Galzin) ondansetron 4 mg disintegrating 4 mg PO Q6H PRN nausea and 4 12/21/24 Rx tablet vomiting #20 tabs famotidine 40 mg tablet 40 mg PO DAILY #90 tabs 06/22/24 0 12/21/24 Rx Held on 07/06/24. Instructions: Order Changed compress.stocking,knee,reg ,med #2 ea 08/22/24 12/21/24 Rx prednisone 10 mg tablet 10 mg PO BID #10 tabs 08/22/24 Rx sennosides 8.6 mg tablet (senna) 17.2 mg (2 x 8.6 mg) PO BID PRN 12/21/24 Rx constipation #60 tabs pantoprazole 40 mg tablet,delayed 40 mg PO QDAY #90 tabs 09/04/24 0 12/21/24 Rx release ropinirole 0.5 mg tablet 1 mg (2 x 0.5 mg) PO DAILY #180 12/21/24 Rx tabs olmesartan 20 mg tablet 10 mg (1/2 x 20 mg) PO QDAY #90 12/21/24 Rx tabs rosuvastatin 20 mg tablet 20 mg PO DAILY #90 tabs 10/23/24 0 12/21/24 Rx mirtazapine 7.5 mg tablet 7.5 mg PO QHS #90 tabs 11/07/24 Rx ferrous sulfate 325 mg (65 mg 325 mg PO DAILY Supplement #90 tab s 11/18/24 12/21/24 Rx iron) tablet amlodipine 10 mg tablet See Rx Instructions .Route 5 12/21/24 Rx Held on 12/21/24. .COMPLEX #90 tabs Instructions: BP LOW olmesartan 5 mg tablet 5 mg PO QDAY #30 tabs 12/21/24 Rx Have you fallen in the past year?: No Nurse's Note: pt reports having 2 episodes about a month apart where she felt uncontrollable shaking, cold sweats, and weakness. states that both episodes happened in the early afternoon [facility] Medical History Post-menopausal History of steroid therapy Arthritis Excessive bleeding Back pain Difficulty swallowing History of diverticulitis Gastric reflux History of echocardiogram Cardiology follow-up encounter Type 2 diabetes mellitus Vasovagal syncope Essential hypertension Bradycardia Hypothyroidism Hyperlipidemia Osteoarthritis Debility Wears glasses Wears dentures Thyroid disease Easy bruising Shortness of breath on exertion Leg cramps History of edema History of r (more content not included)... Normal [facility] LDL calc ser/plasOrdered By: Dayday Hairston on 12-21-2024 Cholesterol in LDL [Mass/Vol] 68 mg/dL [facility] Comment on above: Cuxxnoyhgp=313-343 m g/dL & Higher Rqax=346 mg/dL or greater Laboratory - Chemistry and C hemistry - challengeOrdered By: Dayday Hairston on 12-21-2024 AST [Catalytic activity/Vol] 20 U/L <32 [facility] Lipid Profileon 12-21-2024 CHOL:HDL 2.98 Normal [facility] Comment on above: Performed By: #### L 506.0400, L501.9310, L100.0100, L500.4100, L500.4050, L501.9520 #### [facility] [address] [place], [address] Cholesterol [Mass/Vol] 122 mg/dL Normal <=200 [facility] Comment on above: Result Comment: Chol esterol level, Desirable <200 mg/dL Borderline high cholesterol 200-239 mg/dL High cholesterol >=240 mg/dL Recommendations of the NCEP Adult Treatment Panel for the following risk-cutoff thresholds for the [place] population. Performed By: #### L 506.0400, L501.9310, L100.0100, L500.4100, L500.4050, L501.9520 #### [facility] [address] [place], [address] Cholesterol in HDL [Mass/Vol] 41 mg/dL Normal [facility] Comment on above: Result Comment: Karla onal Cholesterol Education Program (NCEP) guidelines: <40 mg/dL: Low HDL-cholesterol (major risk factor for CHD) >= 60 mg/dL: High HDL-cholesterol (negative risk factor for CHD) HDL-cholesterol is affected by a number of factors, e.g. smoking, exercise, hormones, sex and age. Performed By: #### L 506.0400, L501.9310, L100.0100, L500.4100, L500.4050, L501.9520 #### [facility] [address], [address] Cholesterol in LDL [Mass/Vol] 68 mg/dL Normal [facility] Comment on above: Result Comment: Bord gzusuk=612-285 mg/dL Higher Prvp=716 mg/dL or greater Performed By: #### L 506.0400, L501.9310, L100.0100, L500.4100, L500.4050, L501.9520 #### [facility] [address] [place], [address] ([address] Cholesterol in VLDL [Mass/Vol] 14 mg/dL Normal 5-40 [facility] Comment on above: Performed By: #### L 506.0400, L501.9310, L100.0100, L500.4100, L500.4050, L501.9520 #### [facility] [address] [place], [address] Triglyceride [Mass/Vol] 68 mg/dL Normal [facility] Comment on above: Result Comment: The drugs N-Acetylcysteine and Metamizole may falsely depress this assay. Normal range: <150 mg/dL Borderline High: 150-199 mg/dL High: 200-499 mg/dL Very High: >500 mg/dL Performed By: #### L 506.0400, L501.9310, L100.0100, L500.4100, L500.4050, L501.9520 #### [facility] [address] [place], [address] (789 MCV (mean corpuscular volume ) determinationOrdered By: Dayday Hairston on 12-21-2024 MCV (RBC) [Entitic vol] 104.0 fL High 81-99 [facility] Mean corpuscular hemoglobin (MCH) determinationOrdered By: Dayday Hairston on 12-21-2024 MCH (RBC) [Entitic mass] 33.7 pg High 27.0-32.0 [facility] Mean corpuscular hemoglobin concentration (MCHC) determinationOrdered By: Dayday Hairston on 12-21-2024 MCHC (RBC) [Mass/Vol] 32.4 g/dL 32-36 [facility] Mean platelet volume determi nationOrdered By: Dayday Hairston on 12-21-2024 Platelet mean volume (Bld) [Entitic vol] 11.7 fL 6.2-12.0 [facility] Monocyte percentageOrdered B y: Dayday Hairston on 12-21-2024 Monocytes/100 WBC (Bld) 10.0 % 0-10 [facility] Neutrophil percentageOrdered By: Dayday Hairston on 12-21-2024 Neutrophils/100 WBC (Bld) 61.9 % 47-70 [facility] Nucleated red blood cell per centageOrdered By: Dayday Hairston on 12-21-2024 Nucleated RBC/100 WBC (Bld) [Ratio] 0 % 0-5 [facility] Platelet countOrdered By: Stan tttwan Hairston on 12-21-2024 Platelets (Bld) [#/Vol] 271 10*3/uL 150-450 [facility] Potassium measurement (mass/ volume)Ordered By: Dayday Hairston on 12-21-2024 Potassium (Unsp spec) [Mass/Vol] 4.5 mmol/L 3.3-5.1 [facility] RBC Auto (Bld) [#/Vol]Ordere d By: Dayday Hairston on 12-21-2024 RBC (Bld) [#/Vol] 3.26 10*6/uL Low 4.2-5.4 [facility] Screening total cholesterol/ high density lipoprotein (HDL) cholesterol ratioOrdered By: Dayday Hairston on 12-21-2024 Cholesterol.total/Poppy sterol in HDL [Mass ratio] 2.98 {ratio} [facility] Serum creatinine measurement (mass/volume)Ordered By: Dayday Hairston on 12-21-2024 Creatinine [Mass/Vol] 1.01 mg/dL 0.70-1.20 [facility] Serum globulin measurementOr dered By: Dayday Hairston on 12-21-2024 Globulin (S) [Mass/Vol] 3.1 g/dL 2.2-4.2 [facility] Serum glucose measurement (m ass/volume)Ordered By: Dayday Hairston on 12-21-2024 Glucose [Mass/Vol] 92 mg/dL 70-99 [facility] Serum or plasma alanine renteria otransferase (ALT) measurementOrdered By: Dayday Hairston on 12-21-2024 ALT [Catalytic activity/Vol] 20 U/L <35 [facility] Serum or plasma albumin jd urement (mass/volume)Ordered By: Dayday Hairston on 12-21-2024 Albumin [Mass/Vol] 4.0 g/dL 3.4-4.8 [facility] Serum or plasma albumin/glob ulin mass ratioOrdered By: Dayday Hairston on 12-21-2024 Albumin/Globulin [Mass ratio] 1.3 {ratio} 0.9-2.4 [facility] Serum or plasma alkaline carmita sphatase measurementOrdered By: Dayday Hairston on 12-21-2024 ALP [Catalytic activity/Vol] 108 U/L High 35-104 [facility] Serum or plasma calcium jd urement (mass/volume)Ordered By: Dayday Hairston on 12-21-2024 Calcium [Mass/Vol] 9.4 mg/dL 7.6-11.0 [facility] Serum or plasma cholesterol in HDL measurement (mass/volume)Ordered By: Dayday Hairston on 12-21-2024 Cholesterol in HDL [Mass/Vol] 41 mg/dL >40 [facility] Comment on above: National Cholesterol Education Program (NCEP) guidelines:<40 mg/dL: Low HDL-cholesterol (major risk factor for CHD)>= 60 mg/dL: High HDL-cholesterol (negative risk factor for CHD)HDL-cholesterol is affected by a number of factors, e.g. smoking, exercise, hormones, sex and age. Serum or plasma cholesterol measurement (mass/volume)Ordered By: Dayday Hairston on 12-21-2024 Cholesterol [Mass/Vol] 122 mg/dL <201 [facility] Comment on above: Cholesterol level, D esirable <200 mg/dLBorderline high cholesterol 200-239 mg/dLHigh cholesterol >=240 mg/dLRecommendations of the NCEP Adult Treatment Panel for the following risk-cutoff thresholds for the [place] population. Serum or plasma urea nitroge n measurement (mass/volume)Ordered By: Dayday Hairston on 12-21-2024 Urea nitrogen [Mass/Vol] 22 mg/dL High 4-19 [facility] Sodium levelOrdered By: Oni Hairston on 12-21-2024 Sodium [Moles/Vol] 139 mmol/L 133-145 [facility] T4 Free Directon 12-21-2024 T4 FREE DIRECT 1.50 ng/dL High 0.76-1.46 [facility] Comment on above: Performed By: #### L 506.0400, L501.9310, L100.0100, L500.4100, L500.4050, L501.9520 ####[facility] [address] [place], [place], [id number] T4 Total, Thyroxinon 025 T4 [Mass/Vol] 9.7 ug/dL Normal 4.8-13.9 [facility] Comment on above: Performed By: #### L 506.0400, L501.9310, L100.0100, L500.4100, L500.4050, L501.9520 ####[facility] [address] [place], [place], [id number] T4 freeOrdered By: Dayday cordoba on 12-21-2024 Free T4 [Mass/Vol] 1.50 ng/dL High 0.76-1.46 [facility] TSH DL <= 0.005 mIU/L QnOrde red By: Dayday Hairston on 12-21-2024 TSH Qn 0.147 uIU/mL Low 0.300-4.20 0 [facility] Thyroid Stim Hormone (TSH)on 12-21-2024 TSH 0.147 uIU/mL Low 0.300-4.20 0 [facility] Comment on above: Performed By: #### L 506.0400, L501.9310, L100.0100, L500.4100, L500.4050, L501.9520 ####[facility] [address] [place] [place], [address] ThyroxineOrdered By: Dayday Hairston on 12-21-2024 T4 [Mass/Vol] 9.7 ug/dL 4.8-13.9 [facility] Total proteinOrdered By: Alex mandujanomariusz Yovanny on 12-21-2024 Protein [Mass/Vol] 7.1 g/dL 5.9-8.4 [facility] Triglycerides measurementOrd ered By: Dyaday Hairston on 12-21-2024 Triglyceride [Mass/Vol] 68 mg/dL <199 [facility] Comment on above: The drugs N-Acetylcy steine and Metamizole may falsely depress this assay. Normal range: <150 mg/dLBorderline High: 150-199 mg/dLHigh: 200-499 mg/dLVery High: >500 mg/dL White blood cell (WBC) count Ordered By: Dayday Hairston on 12-21-2024 WBC (Bld) [#/Vol] 10.9 10*3/uL 4.4-11.0 [facility] Duplex ultrasound of carotid artery reportOrdered By: Dusty Harman on 12-20-2024 Study report [facility] [address] [place] [address] Carotid Duplex Ultrasound 12/19/24 1358 MR#: [id number] Acct: [id number] Name: JERRELL STRICKLAND Magdi Rep #:[id number] : 1945 79 From: Dusty Fairbanks Attending Dr: VICTOR M Jimenez Stat us: REG CLI Ordering Dr: Shweta Cole Date: Location: [facility] Sex: F C Admitted: Reason For Study Reason For Study: Carotid stenosis Rt. Velocities/BP Lt. Velocities/BP Prox CCA 79.6/12.6 cm/sec. Prox CCA 47.6/16.8 cm/sec. Mid CCA 69.2/14.5 cm/sec. Mid CCA 49.8/13.5 cm/sec. Dist CCA 58.9/13.5 cm/sec. Dist CCA 158.7/40.2 cm/sec. Prox ICA 194.9/30.1 cm/sec. Prox ICA 283.7/71.8 cm/sec. Mid ICA 152.9/26.8 cm/sec. Mid ICA 215.9/42.2 cm/sec. Dist ICA 127.8/21.5 cm/sec. Dist ICA 106.5/26.1 cm/sec. Rt. ICA/CCA = 2.82. Lt. ICA/CCA = 5.70. Prox ECA 505.3/45.9 cm/sec. Prox ECA 41.3/9.9 cm/sec. Rt. Vert. 64.2/11.4 cm/sec. Lt. Vert. 56.4/12.4 cm/sec. Right Extracranial There is heterogeneous, irregular atherosclerotic plaque noted in the right common carotid artery. There is heterogeneous, irregular atherosclerotic plaque noted in the right internal carotid artery. The atherosclerotic plaque causes acoustic shadowing. There is heterogeneous, irregular atherosclerotic plaque noted in the right external carotid artery. Antegrade flow is noted in the right vertebral artery. Left Extracranial There is heterogeneous, irregular atherosclerotic plaque noted in the left common carotid artery. There is heterogeneous, irregular atherosclerotic plaque noted in the left internal carotid artery. There is heterogeneous, irregular atherosclerotic plaque noted in the left external carotid artery. Antegrade flow is noted in the left vertebral artery. Procedure Carotid Duplex 39377. This is a Carotid Duplex examination using B-mode, color flow and specral Doppler. Preliminary report given to ANITA prado. Exam performed in department. VL/Carotid Duplex Ultrasound Interpretation Summary Moderate (50-69%) stenosis right extracranial internal carotid. Severe (>70%) stenosis left extracranial internal carotid. Patent and antegrade vertebrals bilaterally. Ordering Physician: Shweta Cole Referring Physician: Dionne Magaña Performed By: Christina Collins RVT 12/20/24837 Date _ Dusty Harman MD CC: VICTOR M Jimenez; Dr. 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 [address] Carotid Duplex Ultrasound 12/19/241357 MR#: [id number] Acct: [id number] Name: JERRELL STRICKLAND Rep #: [id number] : 1945 79 From: Dusty Harman MD Attending Dr: VICTOR M Jimenez Status: REG CLI Ordering Dr: Shweta Cole Date: 12/19/24 Location: [facility] Sex: F C Admitted: Reason For Study Reason For Study: Carotid stenosis Rt. Velocities/BP Lt. Velocities/BP Prox CCA 79.6/12.6 cm/sec. Prox CCA 47.6/16.8 cm/sec. Mid CCA 69.2/14.5 cm/sec. Mid CCA 49.8/13.5 cm/sec. Dist CCA 58.9/13.5 cm/sec. Dist CCA 158.7/40.2 cm/sec. Prox ICA 194.9/30.1 cm/sec. Prox ICA 283.7/71.8 cm/sec. Mid ICA 152.9/26.8 cm/sec. Mid ICA 215.9/42.2 cm/sec. Dist ICA 127.8/21.5 cm/sec. Dist ICA 106.5/26.1 cm/sec. Rt. ICA/CCA = 2.82. Lt. ICA/CCA = 5.70. Prox ECA 505.3/45.9 cm/sec. Prox ECA 41.3/9.9 cm/sec. Rt. Vert. 64.2/11.4 cm/sec. Lt. Vert. 56.4/12.4 cm/sec. Right Extracranial There is heterogeneous, irregular atherosclerotic plaque noted in the right common carotid artery. There is heterogeneous, irregular atherosclerotic plaque noted in the right internal carotid artery. The atherosclerotic plaque causes acoustic shadowing. There is heterogeneous, irregular atherosclerotic plaque noted in the right external carotid artery. Antegrade flow is noted in the right vertebral artery. Left Extracranial There is heterogeneous, irregular atherosclerotic plaque noted in the left common carotid artery. There is heterogeneous, irregular atherosclerotic plaque noted in the left internal carotid artery. There is heterogeneous, irregular atherosclerotic plaque noted in the left external carotid artery. Antegrade flow is noted in the left vertebral artery. Procedure Carotid Duplex 63406. This is a Carotid Duplex examination using B-mode, color flow and specral Doppler. Preliminary report given to ANITA prado. Exam performed in department. VL/Carotid Duplex Ultrasound Interpretation Summary Moderate (50-69%) stenosis right extracranial internal carotid. Severe (>70%) stenosis left extracranial internal carotid. Patent and antegrade vertebrals bilaterally. Ordering Physician: Shweta Cole Referring Physician: Dionne Magaña Performed By: Christina Collins Beck 12/20/24 0838 Date Dusty Harman MD CC: VICTOR M Jimenez; Dr. 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 [address] OFFICE VISIT Date of Service: 10/16/24 MR#: [id number] Acct: [id number] Name: JERRELL STRICKLAND Rep #: [id number] : 1945 Provider: VICTOR M Sherman Age/Sex: 79/F [place] [facility] Status: Signed Intake Vital Signs 06/06/24 09:50 09/13/24 14:23 Height 5 ft 4 in 5 ft 4 in Intake Visit Reasons: 3 M FU Chief Complaint: fecal incontinence Allergies clindamycin Allergy (Mild, Verified 09/30/24 12:34) rash codeine phosphate (From Tylenol-Codeine #3) Adverse Reaction (Severe, Verified 09/30/24 12:34) Nausea Medications ???Medication ???Instructions ???Recorded ???Confirmed ???Type albuterol sulfate 90 mcg/actuation 2 puff inhalation Q6H PRN sob 09/30/24 History aerosol inhaler cholecalciferol (vitamin D3) 25 25 mcg PO DAILY 11/29/21 09/30/24 History mcg (1,000 unit) tablet (Vitamin D3) triamcinolone acetonide 55 mcg 1 spray intranasal QHS PRN allergy 11/29/21 09/30/24 History nasal spray aerosol (Nasacort) symptoms loperamide 2 mg tablet 2 mg PO Q6H PRN nausea and vomitin g 01/10/23 09/30/24 History guaifenesin 600 mg tablet, 600 mg PO BID PRN cough 06/15/23 0 09/30/24 History extended release 12 hr (Mucinex) mecobalamin (vitamin B12) 1,000 1,000 mcg PO DAILY #30 tabs 09/30/24 Rx mcg chewable tablet aspirin 81 mg chewable tablet 81 mg PO DAILY #30 tabs 12/22/23 0 09/30/24 Rx gabapentin 300 mg capsule 300 mg PO QHS #30 caps 02/01/24 Rx fluticasone 500 mcg-salmeterol 50 1 ea inhalation BID 03/02/2409/09 History mcg/dose blistr powdr for inhalation (Wixela Inhub) levothyroxine 200 mcg tablet 200 mcg PO DAILY #90 tabs 03/22/24 10/16/24 Rx acetaminophen 325 mg capsule 650 mg PO Q6H PRN fever or pain 09/30/24 History (Tylenol) ascorbic acid (vitamin C) 1,000 mg 0.5 g PO DAILY 04/27/24 10/16/24 History capsule hydrocodone-acetaminophen 5-325mg 1 tab PO Q8H PRN Pain 04/27/24 History 5mg-325mg cetirizine 10 mg tablet 10 mg PO DAILY PRN allergy 4 09/30/24 Rx symptoms #30 TABLETS dicyclomine 10 mg capsule 10 mg PO BID PRN abdominal pain 10/16/24 History meloxicam 15 mg tablet 7.5 mg PO BID 05/15/24 09/30/24 Hi story Held on 05/17/24. Instructions: Hold for 5 days. zinc acetate 50 mg (zinc) capsule 50 mg PO DAILY 05/15/24 09/30/24 History (Galzin) ondansetron 4 mg disintegrating 4 mg PO Q6H PRN nausea and 4 10/16/24 Rx tablet vomiting #20 tabs amlodipine 10 mg tablet See Rx Instructions .Route 4 09/30/24 Rx .COMPLEX #90 tabs famotidine 40 mg tablet 40 mg PO DAILY #90 tabs 06/22/24 0 10/16/24 Rx Held on 07/06/24. Instructions: Order Changed mirtazapine 7.5 mg tablet 7.5 mg PO QHS #90 tabs 07/19/24 Rx rosuvastatin 20 mg tablet 20 mg PO DAILY #90 tabs 07/19/24 0 09/30/24 Rx compress.stocking,knee,reg ,med #2 ea 08/22/24 09/30/24 Rx prednisone 10 mg tablet 10 mg PO BID #10 tabs 08/22/24 Rx ferrous sulfate 325 mg (65 mg 325 mg PO DAILY Supplement #90 tab s 08/24/24 09/30/24 Rx iron) tablet sennosides 8.6 mg tablet (senna) 17.2 mg (2 x 8.6 mg) PO BID PRN 10/16/24 Rx constipation #60 tabs pantoprazole 40 mg tablet,delayed 40 mg PO QDAY #90 tabs 09/04/24 0 10/16/24 Rx release ropinirole 0.5 mg tablet 1 mg (2 x 0.5 mg) PO DAILY #180 09/30/24 Rx tabs olmesartan 20 mg tablet 10 mg (1/2 x 20 mg) PO QDAY #90 Rx tabs Have you fallen in the past year?: No Nurse's Note: OV 10.16.24 Pt here for f/u. Pt reports diarrhea occasionally when she eats greasy foods. Pt says she is feeling well since adding Metamucil daily. [facility] Medical History Post-menopausal History of steroid therapy Arthritis Excessive bleeding Back pain Difficulty swallowing History of diverticulitis Gastric reflux History of echocardiogram Cardiology follow-up encounter Type 2 diabetes mellitus Vasovagal syncope Essential hypertension Bradycardia Hypothyroidism Hyperlipidemia Osteoarthritis Debility Wears glasses Wears dentures Thyroid disease Easy bruising Shortness of breath on exertion Leg cramps History of edema History of rheumatic fever Localized edema Bleeding tendency Injury of head and neck Chronic pain Gastroesophageal reflux disease Leukocytosis Diabetes mellitus Lumbar spinal stenosis Right lumbar radiculopathy Allergic rhinitis Vitamin B12 deficiency Restless leg syndrome Bilateral sacral insufficiency fracture with delayed healing History of colon polyps Asthma Chronic low back pain Surgical History (Revi (more content not included)... Normal [facility] - Microbiology an d Antimicrobial susceptibilityOrdered By: Andrew Chang on 09-30-2024 SARS-CoV-2 (COVID-19) RNA PRIYANKA+probe Ql (Unsp spec) Not detected [facility] No Panel InformationOrdered By: Andrew Chang on 09-30-2024 Influenza Types A,B Rapid (Clinic) Negative [facility] Urgent Care Visit Reporton 0 09-30-2024 Urgent Care Visit Report [facility] [address] , [address] [place] [address] OFFICE VISIT Date of Service: 09/30/24 MR#: [id number] Acct: [id number] Name: JERRELL STRICKLAND Rep #: [id number] : 1945 Provider: LEANN branch Age/Sex: 79/F [place] [facility] Status: Signed Intake Vital Signs 09/13/24 14:23 09/30/24 12:34 Height 5 ft 4 in Weight: 157 lb BMI 26.9 BP 132/68 H 80/40 L Blood Pressure Location Rt brachial Position Sitting Sitting Respiration 18 Pulse 87 95 Pulse Source Monitor Temp 97.4 F L 97.7 F L Temp Source Temporal Oral Pulse Oximetry (%) 97 94 Oxygen Delivery Method room air room air Intake Visit Reasons: FLU LIKE SYMPTOMS Accompanied by: Self Allergies clindamycin Allergy (Mild, Verified 09/30/24 12:34) rash codeine phosphate (From Tylenol-Codeine #3) Adverse Reaction (Severe, Verified 09/30/24 12:34) Nausea Medications ???Medication ???Instructions ???Recorded ???Confirmed ???Type albuterol sulfate 90 mcg/actuation 2 puff inhalation Q6H PRN sob 09/30/24 History aerosol inhaler cholecalciferol (vitamin D3) 25 25 mcg PO DAILY 11/29/21 09/30/24 History mcg (1,000 unit) tablet (Vitamin D3) triamcinolone acetonide 55 mcg 1 spray intranasal QHS PRN allergy 11/29/21 09/30/24 History nasal spray aerosol (Nasacort) symptoms loperamide 2 mg tablet 2 mg PO Q6H PRN nausea and vomitin g 01/10/23 09/30/24 History guaifenesin 600 mg tablet, 600 mg PO BID PRN cough 06/15/23 0 09/30/24 History extended release 12 hr (Mucinex) mecobalamin (vitamin B12) 1,000 1,000 mcg PO DAILY #30 tabs 09/30/24 Rx mcg chewable tablet aspirin 81 mg chewable tablet 81 mg PO DAILY #30 tabs 12/22/23 0 09/30/24 Rx gabapentin 300 mg capsule 300 mg PO QHS #30 caps 02/01/24 Rx fluticasone 500 mcg-salmeterol 50 1 ea inhalation BID 03/02/2409/09 History mcg/dose blistr powdr for inhalation (Wixela Inhub) levothyroxine 200 mcg tablet 200 mcg PO DAILY #90 tabs 03/22/24 09/30/24 Rx acetaminophen 325 mg capsule 650 mg PO Q6H PRN fever or pain 09/30/24 History (Tylenol) ascorbic acid (vitamin C) 1,000 mg 0.5 g PO DAILY 04/27/24 09/30/24 History capsule hydrocodone-acetaminophen 5-325mg 1 tab PO Q8H PRN Pain 04/27/24 History 5mg-325mg cetirizine 10 mg tablet 10 mg PO DAILY PRN allergy 4 09/30/24 Rx symptoms #30 TABLETS dicyclomine 10 mg capsule 10 mg PO BID PRN abdominal pain 09/30/24 History meloxicam 15 mg tablet 7.5 mg PO BID 05/15/24 09/30/24 Hi story Held on 05/17/24. Instructions: Hold for 5 days. zinc acetate 50 mg (zinc) capsule 50 mg PO DAILY 05/15/24 09/30/24 History (Galzin) ondansetron 4 mg disintegrating 4 mg PO Q6H PRN nausea and 4 09/30/24 Rx tablet vomiting #20 tabs amlodipine 10 mg tablet See Rx Instructions .Route 4 09/30/24 Rx .COMPLEX #90 tabs famotidine 40 mg tablet 40 mg PO DAILY #90 tabs 06/22/24 0 09/30/24 Rx Held on 07/06/24. Instructions: Order Changed olmesartan 20 mg tablet 10 mg PO QDAY 06/25/24 09/30/24 Hi story mirtazapine 7.5 mg tablet 7.5 mg PO QHS #90 tabs 07/19/24 Rx rosuvastatin 20 mg tablet 20 mg PO DAILY #90 tabs 07/19/24 0 09/30/24 Rx compress.stocking,knee,reg ,med #2 ea 08/22/24 09/30/24 Rx prednisone 10 mg tablet 10 mg PO BID #10 tabs 08/22/24 Rx ferrous sulfate 325 mg (65 mg 325 mg PO DAILY Supplement #90 tab s 08/24/24 09/30/24 Rx iron) tablet sennosides 8.6 mg tablet (senna) 17.2 mg (2 x 8.6 mg) PO BID PRN 09/30/24 Rx constipation #60 tabs pantoprazole 40 mg tablet,delayed 40 mg PO QDAY #90 tabs 09/04/24 0 09/30/24 Rx release ropinirole 0.5 mg tablet 1 mg (2 x 0.5 mg) PO DAILY #180 09/30/24 Rx tabs amoxicillin 875 mg-potassium 1 tab PO BID 7 days #14 tabs 09/3009/30/24 Rx clavulanate 125 mg tablet Have you fallen in the past year?: No Nurse's Note: Patient has flu like symptoms. Patient has BA,GONZALES,nauseous and she did have a ST. Patient state the symptoms started Tue. [facility] Medical History Post-menopausal History of steroid therapy Arthritis Excessive bleeding Back pain Difficulty swallowing History of diverticulitis Gastric reflux History of echocardiogram Cardiology follow-up encounter Type 2 diabetes mellitus Vasovagal syncope Essential hypertension Bradycardia Hypothyroidism Hyperlipidemia Osteoarthritis Debility Wears glasses Wears dentures Thyroid disease Easy bruising Shortness of breath on exertion Leg cramps History of edema History of rheumatic fever Localized edema Bleeding tendency (more content not included)... [facility] Internal Medicine Office Vis itodimitry 08-23-2024 Internal Medicine Office Visit [facility] [address] [address] [place] [address] OFFICE VISIT Date of Service: 09/13/24 MR#: [id number] Acct: [id number] Name: JERRELL STRICKLAND Rep #: [id number] : 1945 Provider: Dr. Dionne powell MD Age/Sex: 79/F [place] [facility] Status: Signed Intake Vital Signs 08/08/24 13:36 08/22/24 10:25 09/13/24 14:23 Height 5 ft 4 in 5 ft 4 in 5 ft 4 in Weight: 157 lb BMI 26.9 BP 132/68 H Blood Pressure Location Rt brachial Position Sitting Respiration 18 Pulse 87 Pulse Source Monitor Temp 97.4 F L Temp Source Temporal Pulse Oximetry (%) 97 Oxygen Delivery Method room air Intake Visit Reasons: MOBILITY Chief Complaint: Mobility Is patient in pain?: Yes (5 lower back pain ) Allergies clindamycin Allergy (Mild, Verified 09/13/24 14:21) rash codeine phosphate (From Tylenol-Codeine #3) Adverse Reaction (Severe, Verified 09/13/24 14:21) Nausea Medications ???Medication ???Instructions ???Recorded ???Confirmed ???Type albuterol sulfate 90 mcg/actuation 2 puff inhalation Q6H PRN sob 09/13/24 History aerosol inhaler cholecalciferol (vitamin D3) 25 25 mcg PO DAILY 11/29/21 09/13/24 History mcg (1,000 unit) tablet (Vitamin D3) triamcinolone acetonide 55 mcg 1 spray intranasal QHS PRN allergy 11/29/21 09/13/24 History nasal spray aerosol (Nasacort) symptoms loperamide 2 mg tablet 2 mg PO Q6H PRN nausea and vomitin g 01/10/23 09/13/24 History guaifenesin 600 mg tablet, 600 mg PO BID PRN cough 06/15/23 0 09/13/24 History extended release 12 hr (Mucinex) mecobalamin (vitamin B12) 1,000 1,000 mcg PO DAILY #30 tabs 09/13/24 Rx mcg chewable tablet aspirin 81 mg chewable tablet 81 mg PO DAILY #30 tabs 12/22/23 0 09/13/24 Rx gabapentin 300 mg capsule 300 mg PO QHS #30 caps 02/01/24 Rx fluticasone 500 mcg-salmeterol 50 1 ea inhalation BID 03/02/2401/02 History mcg/dose blistr powdr for inhalation (Jayla Inhisidro) levothyroxine 200 mcg tablet 200 mcg PO DAILY #90 tabs 03/22/24 09/13/24 Rx acetaminophen 325 mg capsule 650 mg PO Q6H PRN fever or pain 09/13/24 History (Tylenol) ascorbic acid (vitamin C) 1,000 mg 0.5 g PO DAILY 04/27/24 09/13/24 History capsule hydrocodone-acetaminophen 5-325mg 1 tab PO Q8H PRN Pain 04/27/24 History 5mg-325mg cetirizine 10 mg tablet 10 mg PO DAILY PRN allergy 4 09/13/24 Rx symptoms #30 TABLETS dicyclomine 10 mg capsule 10 mg PO BID PRN abdominal pain 09/13/24 History meloxicam 15 mg tablet 7.5 mg PO BID 05/15/24 09/13/24 Hi story Held on 05/17/24. Instructions: Hold for 5 days. zinc acetate 50 mg (zinc) capsule 50 mg PO DAILY 05/15/24 09/13/24 History (Galzin) ondansetron 4 mg disintegrating 4 mg PO Q6H PRN nausea and 4 09/13/24 Rx tablet vomiting #20 tabs amlodipine 10 mg tablet See Rx Instructions .Route 4 09/13/24 Rx .COMPLEX #90 tabs famotidine 40 mg tablet 40 mg PO DAILY #90 tabs 06/22/24 0 09/13/24 Rx Held on 07/06/24. Instructions: Order Changed olmesartan 20 mg tablet 10 mg PO QDAY 06/25/24 09/13/24 Hi story ropinirole 0.5 mg tablet 1 mg (2 x 0.5 mg) PO DAILY #60 tab s 07/09/24 09/13/24 Rx mirtazapine 7.5 mg tablet 7.5 mg PO QHS #90 tabs 07/19/24 Rx rosuvastatin 20 mg tablet 20 mg PO DAILY #90 tabs 07/19/24 0 09/13/24 Rx compress.stocking,knee,reg ,med #2 ea 08/22/24 09/13/24 Rx prednisone 10 mg tablet 10 mg PO BID #10 tabs 08/22/2401/02 Rx ferrous sulfate 325 mg (65 mg 325 mg PO DAILY Supplement #90 tab s 08/24/24 09/13/24 Rx iron) tablet sennosides 8.6 mg tablet (senna) 17.2 mg (2 x 8.6 mg) PO BID PRN 09/13/24 Rx constipation #60 tabs pantoprazole 40 mg tablet,delayed 40 mg PO QDAY #90 tabs 09/04/24 0 09/13/24 Rx release Have you fallen in the past year?: No Nurse's Note: pt's meloxicam appears to be on hold in the system, but pt states she is taking it. [facility] Medical History Post-menopausal History of steroid therapy Arthritis Excessive bleeding Back pain Difficulty swallowing History of diverticulitis Gastric reflux History of echocardiogram Cardiology follow-up encounter Type 2 diabetes mellitus Vasovagal syncope Essential hypertension Bradycardia Hypothyroidism Hyperlipidemia Osteoarthritis Debility Wears glasses Wears dentures Thyroid disease Easy bruising Shortness of breath on exertion Leg cramps History of edema History of rheumatic fever Localized edema Bleeding tendency Injury of head and neck Chronic pain Gastroesophageal reflux disease Leukocytosis Diabetes mellitus Lumbar spinal stenosis Right lumba (more content not included)... [facility] Internal Medicine Office Vis ito 08-22-2024 Internal Medicine Office Visit [facility] [address] [place] [address] OFFICE VISIT Date of Service: 08/22/24 MR#: [id number] Acct: [id number] Name: JERRELL STRICKLAND Rep #: [id number] : 1945 Provider: Dr. Dionne powell MD Age/Sex: 79/F [place] [facility] Status: Signed Intake Vital Signs 08/08/24 13:36 08/22/24 10:25 Height 5 ft 4 in 5 ft 4 in Weight: 157 lb BMI 26.9 BP 136/82 H Blood Pressure Location Rt brachial Position Sitting Respiration 20 H Pulse 89 Pulse Source Monitor Temp 96.8 F L Temp Source Temporal Pulse Oximetry (%) 96 Oxygen Delivery Method room air Intake Visit Reasons: sore throat Chief Complaint: sore throat and drainage 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: No Accompanied by: Self Is patient in pain?: Yes (throat pain ) Allergies clindamycin Allergy (Mild, Verified 08/22/24 10:24) rash codeine phosphate (From Tylenol-Codeine #3) Adverse Reaction (Severe, Verified 08/22/24 10:24) Nausea Medications ???Medication ???Instructions ???Recorded ???Confirmed ???Type albuterol sulfate 90 mcg/actuation 2 puff inhalation Q6H PRN sob 08/22/24 History aerosol inhaler cholecalciferol (vitamin D3) 25 25 mcg PO DAILY 11/29/21 08/22/24 History mcg (1,000 unit) tablet (Vitamin D3) triamcinolone acetonide 55 mcg 1 spray intranasal QHS PRN allergy 11/29/21 08/22/24 History nasal spray aerosol (Nasacort) symptoms loperamide 2 mg tablet 2 mg PO Q6H PRN nausea and vomitin g 01/10/23 08/22/24 History guaifenesin 600 mg tablet, 600 mg PO BID PRN cough 06/15/23 0 08/22/24 History extended release 12 hr (Mucinex) mecobalamin (vitamin B12) 1,000 1,000 mcg PO DAILY #30 tabs 08/22/24 Rx mcg chewable tablet aspirin 81 mg chewable tablet 81 mg PO DAILY #30 tabs 12/22/23 0 08/22/24 Rx gabapentin 300 mg capsule 300 mg PO QHS #30 caps 02/01/24 Rx fluticasone 500 mcg-salmeterol 50 1 ea inhalation BID 03/02/2408/11 History mcg/dose blistr powdr for inhalation (Wixela Inhub) levothyroxine 200 mcg tablet 200 mcg PO DAILY #90 tabs 03/22/24 08/22/24 Rx ferrous sulfate 325 mg (65 mg 325 mg PO DAILY Supplement #90 tab s 04/16/24 08/22/24 Rx iron) tablet acetaminophen 325 mg capsule 650 mg PO Q6H PRN fever or pain 08/22/24 History (Tylenol) ascorbic acid (vitamin C) 1,000 mg 0.5 g PO DAILY 04/27/24 08/22/24 History capsule hydrocodone-acetaminophen 5-325mg 1 tab PO Q8H PRN Pain 04/27/24 History 5mg-325mg cetirizine 10 mg tablet 10 mg PO DAILY PRN allergy 4 08/22/24 Rx symptoms #30 TABLETS dicyclomine 10 mg capsule 10 mg PO BID PRN abdominal pain 08/22/24 History meloxicam 15 mg tablet 7.5 mg PO BID 05/15/24 08/22/24 Hi story Held on 05/17/24. Instructions: Hold for 5 days. sennosides 8.6 mg tablet (senna) 17.2 mg PO BID PRN constipation 08/22/24 History zinc acetate 50 mg (zinc) capsule 50 mg PO DAILY 05/15/24 08/22/24 History (Galzin) ondansetron 4 mg disintegrating 4 mg PO Q6H PRN nausea and 4 08/22/24 Rx tablet vomiting #20 tabs amlodipine 10 mg tablet See Rx Instructions .Route 4 08/22/24 Rx .COMPLEX #90 tabs famotidine 40 mg tablet 40 mg PO DAILY #90 tabs 06/22/24 0 08/22/24 Rx Held on 07/06/24. Instructions: Order Changed olmesartan 20 mg tablet 10 mg PO QDAY 06/25/24 08/22/24 Hi story ropinirole 0.5 mg tablet 1 mg (2 x 0.5 mg) PO DAILY #60 tab s 07/09/24 08/22/24 Rx pantoprazole 40 mg tablet,delayed 40 mg PO QDAY #90 tabs 07/18/24 0 08/22/24 Rx release mirtazapine 7.5 mg tablet 7.5 mg PO QHS #90 tabs 07/19/24 Rx rosuvastatin 20 mg tablet 20 mg PO DAILY #90 tabs 07/19/24 0 08/22/24 Rx codeine 10 mg-guaifenesin 200 mg/5 See Rx Instructions PO Q6H PRN 0 08/08/24 08/22/24 Rx mL oral liquid cough #120 mL compress.stocking,knee,reg ,med #2 ea 08/22/24 08/22/24 Rx prednisone 10 mg tablet 10 mg PO BID #10 tabs 08/22/2407/04 Rx Have you fallen in the past year?: No Nurse's Note: throat pain and drainage PFSH Medical History Post-menopausal History of steroid therapy Arthritis Excessive bleeding Back pain Difficulty swallowing History of diverticulitis Gastric reflux History of echocardiogram Cardiology follow-up encounter Type 2 diabetes mellitus Vasovagal syncope Essential hypertension Bradycardia Hypothyroidism Hyperlipidemia Osteoarthritis Debility Wears glasses Wears dentures Thyroid disease Easy bruising Shortness of breath on exertion Leg cramps History of edema History of rheumatic fever Localized edema Bleeding tendency Injury of head and neck Chronic pain Gastroesophageal reflux (more content not included)... [facility] Internal Medicine Office Vis iton 08-08-2024 Internal Medicine Office Visit [facility] [address] [place] [address] OFFICE VISIT Date of Service: 08/08/24 MR#: [id number] Acct: [id number] Name: JERRELL STRICKLAND Rep #: [id number] : 1945 Provider: VICTOR M Ni Age/Sex: 79/F [place] [facility] Status: Signed Intake Vital Signs 06/06/24 09:50 08/08/24 13:36 Height 5 ft 4 in 5 ft 4 in Weight: 163 lb 160 lb BMI 27.9 27.4 BP 124/76 H 118/70 Blood Pressure Location Lt brachial Lt brachial Position Sitting Sitting Respiration 16 16 Pulse 94 88 Pulse Source Monitor Monitor Temp 97.6 F L 97.1 F L Temp Source Temporal Temporal Pulse Oximetry (%) 95 98 Oxygen Delivery Method room air room air Intake Visit Reasons: COLD FOR OVER WEEK Chief Complaint: cold like sx 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: No Accompanied by: Self Is patient in pain?: No Allergies clindamycin Allergy (Mild, Verified 08/08/24 13:33) rash codeine phosphate (From Tylenol-Codeine #3) Adverse Reaction (Severe, Verified 08/08/24 13:33) Nausea Medications ???Medication ???Instructions ???Recorded ???Confirmed ???Type albuterol sulfate 90 mcg/actuation 2 puff inhalation Q6H PRN sob 11/29/21 08/08/24 History aerosol inhaler cholecalciferol (vitamin D3) 25 25 mcg PO DAILY 11/29/21 08/08/24 History mcg (1,000 unit) tablet (Vitamin D3) triamcinolone acetonide 55 mcg 1 spray intranasal QHS PRN allergy 11/29/21 08/08/24 History nasal spray aerosol (Nasacort) symptoms loperamide 2 mg tablet 2 mg PO Q6H PRN nausea and vomiting 01/10/23 08/08/24 History guaifenesin 600 mg tablet, 600 mg PO BID PRN cough 06/15/23 08/08/24 History extended release 12 hr (Mucinex) mecobalamin (vitamin B12) 1,000 1,000 mcg PO DAILY #30 tabs 07/21/23 08/08/24 Rx mcg chewable tablet aspirin 81 mg chewable tablet 81 mg PO DAILY #30 tabs 12/22/23 08/08/24 Rx gabapentin 300 mg capsule 300 mg PO QHS #30 caps 02/01/24 08/08/24 Rx fluticasone 500 mcg-salmeterol 50 1 ea inhalation BID 03/02/24 08/08/24 History mcg/dose blistr powdr for inhalation (Wixela Inhub) levothyroxine 200 mcg tablet 200 mcg PO DAILY #90 tabs 03/22/24 08/08/24 Rx ferrous sulfate 325 mg (65 mg 325 mg PO DAILY Supplement #90 tabs 04/16/24 08/08/24 Rx iron) tablet acetaminophen 325 mg capsule 650 mg PO Q6H PRN fever or pain 04/27/24 08/08/24 History (Tylenol) ascorbic acid (vitamin C) 1,000 mg 0.5 g PO DAILY 04/27/24 08/08/24 History capsule hydrocodone-acetaminophen 5-325mg 1 tab PO Q8H PRN Pain 04/27/24 08/08/24 History 5mg-325mg cetirizine 10 mg tablet 10 mg PO DAILY PRN allergy 05/08/24 08/08/24 Rx symptoms #30 TABLETS dicyclomine 10 mg capsule 10 mg PO BID PRN abdominal pain 05/15/24 08/08/24 History meloxicam 15 mg tablet 7.5 mg PO BID 05/15/24 08/08/24 History sennosides 8.6 mg tablet (senna) 17.2 mg PO BID PRN constipation 05/15/24 08/08/24 History zinc acetate 50 mg (zinc) capsule 50 mg PO DAILY 05/15/24 08/08/24 History (Galzin) ondansetron 4 mg disintegrating 4 mg PO Q6H PRN nausea and 05/28/24 08/08/24 Rx tablet vomiting #20 tabs amlodipine 10 mg tablet See Rx Instructions .Route 06/15/24 08/08/24 Rx .COMPLEX #90 tabs famotidine 40 mg tablet 40 mg PO DAILY #90 tabs 06/22/24 08/08/24 Rx olmesartan 20 mg tablet 10 mg PO QDAY 06/25/24 08/08/24 History ropinirole 0.5 mg tablet 1 mg (2 x 0.5 mg) PO DAILY #60 tabs 07/09/24 08/08/24 Rx pantoprazole 40 mg tablet,delayed 40 mg PO QDAY #90 tabs 07/18/24 08/08/24 Rx release mirtazapine 7.5 mg tablet 7.5 mg PO QHS #90 tabs 07/19/24 08/08/24 Rx rosuvastatin 20 mg tablet 20 mg PO DAILY #90 tabs 07/19/24 08/08/24 Rx codeine 10 mg-guaifenesin 200 mg/5 See Rx Instructions PO Q6H PRN 08/08/24 08/08/24 Rx mL oral liquid cough #120 mL prednisone 10 mg tablet 10 mg PO BID #10 tabs 08/08/24 08/08/24 Rx Have you fallen in the past year?: No PFSH Medical History Post-menopausal History of steroid therapy Arthritis Excessive bleeding Back pain Difficulty swallowing History of diverticulitis Gastric reflux History of echocardiogram Cardiology follow-up encounter Type 2 diabetes mellitus Vasovagal syncope Essential hypertension Bradycardia Hypothyroidism Hyperlipidemia Osteoarthritis Debility Wears glasses Wears dentures Thyroid disease Easy bruising Shortness of breath on exertion Leg cramps History of edema History of rheumatic fever Localized edema Bleeding tendency Injury of head and neck Chronic pain Gastroesophageal reflux disease Leukocytosis Diabetes mellitus Lumbar spinal stenosis Right lumbar radiculopathy Allergic rhinitis Vitamin B12 deficiency Restless leg syndrome Bilateral sacral insufficiency fracture with delayed healing History of col (more content not included)... [facility] Gastroenterology Visit Repor ton 07-18-2024 Gastroenterology Visit Report [facility] [address] [place] [address] OFFICE VISIT Date of Service: 07/18/24 MR#: [id number] Acct: [id number] Name: JERRELL STRICKLAND Rep #: [id number] : 1945 Provider: VICTOR M Sherman Age/Sex: 79/F [place] [facility] Status: Signed Intake Vital Signs 05/28/24 19:28 05/31/24 10:15 06/06/24 09:50 Height 5 ft 4 in 5 ft 4 in 5 ft 4 in Weight: 163 lb BMI 27.9 BP 124/76 H Blood Pressure Location Lt brachial Position Sitting Respiration 16 Pulse 94 Pulse Source Monitor Temp 97.6 F L Temp Source Temporal Pulse Oximetry (%) 95 Oxygen Delivery Method room air Intake Visit Reasons: Viral gastroenteritis Chief Complaint: fecal incontinence Allergies clindamycin Allergy (Mild, Verified 06/06/24 09:46) rash codeine phosphate (From Tylenol-Codeine #3) Adverse Reaction (Severe, Verified 06/06/24 09:46) Nausea Medications ???Medication ???Instructions ???Recorded ???Confirmed ???Type albuterol sulfate 90 mcg/actuation 2 puff inhalation Q6H PRN sob 11/29/21 06/25/24 History aerosol inhaler cholecalciferol (vitamin D3) 25 25 mcg PO DAILY 11/29/21 07/18/24 History mcg (1,000 unit) tablet (Vitamin D3) triamcinolone acetonide 55 mcg 1 spray intranasal QHS PRN allergy 11/29/21 07/18/24 History nasal spray aerosol (Nasacort) symptoms loperamide 2 mg tablet 2 mg PO Q6H PRN nausea and vomiting 01/10/23 07/18/24 History guaifenesin 600 mg tablet, 600 mg PO BID PRN cough 06/15/23 07/18/24 History extended release 12 hr (Mucinex) mecobalamin (vitamin B12) 1,000 1,000 mcg PO DAILY #30 tabs 07/21/23 07/18/24 Rx mcg chewable tablet aspirin 81 mg chewable tablet 81 mg PO DAILY #30 tabs 12/22/23 07/18/24 Rx gabapentin 300 mg capsule 300 mg PO QHS #30 caps 02/01/24 07/18/24 Rx fluticasone 500 mcg-salmeterol 50 1 ea inhalation BID 03/02/24 06/25/24 History mcg/dose blistr powdr for inhalation (Wixela Inhub) levothyroxine 200 mcg tablet 200 mcg PO DAILY #90 tabs 03/22/24 06/25/24 Rx ferrous sulfate 325 mg (65 mg 325 mg PO DAILY Supplement #90 tabs 04/16/24 07/18/24 Rx iron) tablet mirtazapine 7.5 mg tablet 7.5 mg PO QHS #90 tabs 04/16/24 07/18/24 Rx acetaminophen 325 mg capsule 650 mg PO Q6H PRN fever or pain 04/27/24 07/18/24 History (Tylenol) ascorbic acid (vitamin C) 1,000 mg 0.5 g PO DAILY 04/27/24 07/18/24 History capsule hydrocodone-acetaminophen 5-325mg 1 tab PO Q8H PRN Pain 04/27/24 06/25/24 History 5mg-325mg cetirizine 10 mg tablet 10 mg PO DAILY PRN allergy 05/08/24 07/18/24 Rx symptoms #30 TABLETS dicyclomine 10 mg capsule 10 mg PO BID PRN abdominal pain 05/15/24 07/18/24 History meloxicam 15 mg tablet 7.5 mg PO BID 05/15/24 06/25/24 History rosuvastatin 20 mg tablet 20 mg PO DAILY 05/15/24 07/18/24 History sennosides 8.6 mg tablet (senna) 17.2 mg PO BID PRN constipation 05/15/24 07/18/24 History zinc acetate 50 mg (zinc) capsule 50 mg PO DAILY 05/15/24 07/18/24 History (Galzin) ondansetron 4 mg disintegrating 4 mg PO Q6H PRN nausea and 05/28/24 07/18/24 Rx tablet vomiting #20 tabs amlodipine 10 mg tablet See Rx Instructions .Route 06/15/24 07/18/24 Rx .COMPLEX #90 tabs famotidine 40 mg tablet 40 mg PO DAILY #90 tabs 06/22/24 07/06/24 Rx pantoprazole 20 mg tablet,delayed 20 mg PO DAILY #90 tabs 06/22/24 07/18/24 Rx release olmesartan 20 mg tablet 10 mg PO QDAY 06/25/24 07/18/24 History ropinirole 0.5 mg tablet 1 mg (2 x 0.5 mg) PO DAILY #60 tabs 07/09/24 07/18/24 Rx pantoprazole 40 mg tablet,delayed 40 mg PO QDAY #90 tabs 07/18/24 07/18/24 Rx release Patient : No Have you fallen in the past year?: No Nurse's Note: OV 07.18.24 Pt here for a f/u. Pt reports diarrhea with urgency, gas, and bloating. Pt denies blood in stools, abdominal pain, trouble swallowing, and N/V. Prior Colonoscopy and EGD . [facility] Medical History Post-menopausal History of steroid therapy Arthritis Excessive bleeding Back pain Difficulty swallowing History of diverticulitis Gastric reflux History of echocardiogram Cardiology follow-up encounter Type 2 diabetes mellitus Vasovagal syncope Essential hypertension Bradycardia Hypothyroidism Hyperlipidemia Osteoarthritis Debility Wears glasses Wears dentures Thyroid disease Easy bruising Shortness of breath on exertion Leg cramps History of edema History of rheumatic fever Localized edema Bleeding tendency Injury of head and neck Chronic pain Gastroesophageal reflux disease Leukocytosis Diabetes mellitus Lumbar spinal stenosis Right lumbar radiculopathy Allergic rhinitis Vitamin B12 deficiency Restless leg syndrome Bilateral sacral insufficiency fracture with (more content not included)... [facility] Office Visit Reporton 2023 Office Visit Report [facility] [address] [place] [address] OFFICE VISIT Date of Service: 06/25/24 MR#: [id number] Acct: [id number] Patient: JERRELL STRICKLAND Rep #: [id number] : 1945 Provider: MARSHALL NURSE Age/Sex: 78/F [place] [facility] Status: Signed with Addenda ADDENDUM by Dr. Dionne Magaña MD on 06/25/24 at 1203 Assessment Plan (1) Essential hypertension: COMMENT: CONTROLLED ON MEDS 06/25/24 1203 Date Dionne Magaña MD cc: * Signed Intake Vital Signs 06/06/24 09:50 06/25/24 11:52 Height 5 ft 4 in Weight: 163 lb BMI 27.9 BP 124/76 H 136/82 H Blood Pressure Location Lt brachial Rt brachial Position Sitting Sitting Respiration 16 Pulse 94 Pulse Source Monitor Temp 97.6 F L Temp Source Temporal Pulse Oximetry (%) 95 Oxygen Delivery Method room air Intake Visit Reasons: MED CHECK/ BP CHECK Chief Complaint: hosp f/u Allergies clindamycin Allergy (Mild, Verified 06/06/24 09:46) rash codeine phosphate (From Tylenol-Codeine #3) Adverse Reaction (Severe, Verified 06/06/24 09:46) Nausea Medications ???Medication ???Instructions ???Recorded ???Confirmed ???Type albuterol sulfate 90 mcg/actuation 2 puff inhalation Q6H PRN sob 11/29/21 06/25/24 History aerosol inhaler cholecalciferol (vitamin D3) 25 25 mcg PO DAILY 11/29/21 06/25/24 History mcg (1,000 unit) tablet (Vitamin D3) triamcinolone acetonide 55 mcg 1 spray intranasal QHS PRN allergy 11/29/21 06/25/24 History nasal spray aerosol (Nasacort) symptoms loperamide 2 mg tablet 2 mg PO Q6H PRN nausea and vomiting 01/10/23 06/25/24 History guaifenesin 600 mg tablet, 600 mg PO BID PRN cough 06/15/23 06/25/24 History extended release 12 hr (Mucinex) mecobalamin (vitamin B12) 1,000 1,000 mcg PO DAILY #30 tabs 07/21/23 06/25/24 Rx mcg chewable tablet aspirin 81 mg chewable tablet 81 mg PO DAILY #30 tabs 12/22/23 06/25/24 Rx gabapentin 300 mg capsule 300 mg PO QHS #30 caps 02/01/24 06/25/24 Rx fluticasone 500 mcg-salmeterol 50 1 ea inhalation BID 03/02/24 06/25/24 History mcg/dose blistr powdr for inhalation (Wixela Inhub) levothyroxine 200 mcg tablet 200 mcg PO DAILY #90 tabs 03/22/24 06/25/24 Rx ferrous sulfate 325 mg (65 mg 325 mg PO DAILY Supplement #90 tabs 04/16/24 06/25/24 Rx iron) tablet mirtazapine 7.5 mg tablet 7.5 mg PO QHS #90 tabs 04/16/24 06/25/24 Rx acetaminophen 325 mg capsule 650 mg PO Q6H PRN fever or pain 04/27/24 06/25/24 History (Tylenol) ascorbic acid (vitamin C) 1,000 mg 0.5 g PO DAILY 04/27/24 06/25/24 History capsule hydrocodone-acetaminophen 5-325mg 1 tab PO Q8H PRN Pain 04/27/24 06/25/24 History 5mg-325mg cetirizine 10 mg tablet 10 mg PO DAILY PRN allergy 05/08/24 06/25/24 Rx symptoms #30 TABLETS dicyclomine 10 mg capsule 10 mg PO BID PRN abdominal pain 05/15/24 06/25/24 History meloxicam 15 mg tablet 7.5 mg PO BID 05/15/24 06/25/24 History ropinirole 0.5 mg tablet 1 mg PO DAILY 05/15/24 06/25/24 History rosuvastatin 20 mg tablet 20 mg PO DAILY 05/15/24 06/25/24 History sennosides 8.6 mg tablet (senna) 17.2 mg PO BID PRN constipation 05/15/24 06/25/24 History zinc acetate 50 mg (zinc) capsule 50 mg PO DAILY 05/15/24 06/25/24 History (Galzin) ondansetron 4 mg disintegrating 4 mg PO Q6H PRN nausea and 05/28/24 06/25/24 Rx tablet vomiting #20 tabs amlodipine 10 mg tablet See Rx Instructions .Route 06/15/24 06/25/24 Rx .COMPLEX #90 tabs famotidine 40 mg tablet 40 mg PO DAILY #90 tabs 06/22/24 06/25/24 Rx pantoprazole 20 mg tablet,delayed 20 mg PO DAILY #90 tabs 06/22/24 06/25/24 Rx release olmesartan 20 mg tablet 10 mg PO QDAY 06/25/24 06/25/24 History Have you fallen in the past year?: No Nurse's Note: Pt unable to reconcile meds, even w/ bottles in office. Spoke w/Analisa Carl at [facility]. Confirmed she was taking 2 PPI's, and 10mg olmesartan. If any adjustments are needed please advise and will CB the nurse at [phone]. Clinical Quality Measures Falls Risk Screening/Assistive Devices Have you fallen in the past year?: No 06/25/24 1202 Date Dionne Parra Signature: Date (if applicable) CC: Veronica [facility] Internal Medicine Office Vis itodimitry 06-06-2024 Internal Medicine Office Visit [facility] [address] [place] [address] [place] [address] OFFICE VISIT Date of Service: 06/06/24 MR#: [id number] Acct: [id number] Name: JERRELL STRICKLAND Rep #: [id number] : 1945 Provider: VICTOR M Ni Age/Sex: 78/F [place] [facility] Status: Signed Intake Vital Signs 05/15/24 22:03 05/31/24 10:15 06/06/24 09:50 Height 5 ft 4 in 5 ft 4 in 5 ft 4 in Weight: 163 lb BMI 27.9 BP 124/76 H Blood Pressure Location Lt brachial Position Sitting Respiration 16 Pulse 94 Pulse Source Monitor Temp 97.6 F L Temp Source Temporal Pulse Oximetry (%) 95 Oxygen Delivery Method room air Intake Visit Reasons: HOSP FU Chief Complaint: hosp f/u 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: No Accompanied by: Self Is patient in pain?: No Allergies clindamycin Allergy (Mild, Verified 06/06/24 09:46) rash codeine phosphate (From Tylenol-Codeine #3) Adverse Reaction (Severe, Verified 06/06/24 09:46) Nausea Medications ???Medication ???Instructions ???Recorded ???Confirmed ???Type albuterol sulfate 90 mcg/actuation 2 puff inhalation Q6H PRN sob 11/29/21 06/06/24 History aerosol inhaler cholecalciferol (vitamin D3) 25 25 mcg PO DAILY 11/29/21 06/06/24 History mcg (1,000 unit) tablet (Vitamin D3) triamcinolone acetonide 55 mcg 1 spray intranasal QHS PRN allergy 11/29/21 06/06/24 History nasal spray aerosol (Nasacort) symptoms loperamide 2 mg tablet 2 mg PO Q6H PRN nausea and vomiting 01/10/23 06/06/24 History guaifenesin 600 mg tablet, 600 mg PO BID PRN cough 06/15/23 06/06/24 History extended release 12 hr (Mucinex) mecobalamin (vitamin B12) 1,000 1,000 mcg PO DAILY #30 tabs 07/21/23 06/06/24 Rx mcg chewable tablet amlodipine 10 mg tablet See Rx Instructions .Route 11/25/23 06/06/24 Rx .COMPLEX #90 tabs aspirin 81 mg chewable tablet 81 mg PO DAILY #30 tabs 12/22/23 06/06/24 Rx gabapentin 300 mg capsule 300 mg PO QHS #30 caps 02/01/24 06/06/24 Rx fluticasone 500 mcg-salmeterol 50 1 ea inhalation BID 03/02/24 06/06/24 History mcg/dose blistr powdr for inhalation (Jayla Pinto) famotidine 40 mg tablet 40 mg PO DAILY #90 tabs 03/13/24 06/06/24 Rx olmesartan 20 mg tablet 20 mg PO DAILY #90 TABLETS 03/14/24 06/06/24 Rx levothyroxine 200 mcg tablet 200 mcg PO DAILY #90 tabs 03/22/24 06/06/24 Rx ferrous sulfate 325 mg (65 mg 325 mg PO DAILY Supplement #90 tabs 04/16/24 06/06/24 Rx iron) tablet mirtazapine 7.5 mg tablet 7.5 mg PO QHS #90 tabs 04/16/24 06/06/24 Rx pantoprazole 20 mg tablet,delayed 20 mg PO DAILY #60 tabs 04/16/24 06/06/24 Rx release acetaminophen 325 mg capsule 650 mg PO Q6H PRN fever or pain 04/27/24 06/06/24 History (Tylenol) ascorbic acid (vitamin C) 1,000 mg 0.5 g PO DAILY 04/27/24 06/06/24 History capsule hydrocodone-acetaminophen 5-325mg 1 tab PO Q8H PRN Pain 04/27/24 06/06/24 History 5mg-325mg cetirizine 10 mg tablet 10 mg PO DAILY PRN allergy 05/08/24 06/06/24 Rx symptoms #30 TABLETS dicyclomine 10 mg capsule 10 mg PO BID PRN abdominal pain 05/15/24 06/06/24 History meloxicam 15 mg tablet 7.5 mg PO BID 05/15/24 06/06/24 History ropinirole 0.5 mg tablet 1 mg PO DAILY 05/15/24 06/06/24 History rosuvastatin 20 mg tablet 20 mg PO DAILY 05/15/24 06/06/24 History sennosides 8.6 mg tablet (senna) 17.2 mg PO BID PRN constipation 05/15/24 06/06/24 History zinc acetate 50 mg (zinc) capsule 50 mg PO DAILY 05/15/24 06/06/24 History (Galzin) ondansetron 4 mg disintegrating 4 mg PO Q6H PRN nausea and 05/28/24 06/06/24 Rx tablet vomiting #20 tabs Have you fallen in the past year?: No PFSH Medical History Post-menopausal History of steroid therapy Arthritis Excessive bleeding Back pain Difficulty swallowing History of diverticulitis Gastric reflux History of echocardiogram Cardiology follow-up encounter Type 2 diabetes mellitus Vasovagal syncope Essential hypertension Bradycardia Hypothyroidism Hyperlipidemia Osteoarthritis Debility Wears glasses Wears dentures Thyroid disease Easy bruising Shortness of breath on exertion Leg cramps History of edema History of rheumatic fever Localized edema Bleeding tendency Injury of head and neck Chronic pain Gastroesophageal reflux disease Leukocytosis Diabetes mellitus Lumbar spinal stenosis Right lumbar radiculopathy Allergic rhinitis Vitamin B12 deficiency Restless leg syndrome Bilateral sacral insufficiency fracture with delayed healing History of colon polyps Asthma Chronic low back pain Surgical History History of total shoulder replacement Status post reverse total arthroplasty of left shoulder Hx of lumbar discectomy Hx of decompressive lumbar laminect (more content not included)... Normal [facility] 12 Lead EKGon 05-28-2024 12 Lead EKG [facility] [address] [place] [address] 12 Lead EKG 05/28/242017 MR#: [id number] Acct: [id number] Name: JERRELL STRICKLAND Rep #: [id number] : 1945 78 From: Chang Mercado MD Attending Dr: Status: DEP ER Ordering Dr: Sarmad Hidalgo DO Date: 05/28/24 Location: ED Sex: F C Admitted: Test Reason : N/V/D Blood Pressure : */* mmHG Vent. Rate : 94 BPM Atrial Rate : 94 BPM P-R Int : 164 ms QRS Dur : 84 ms QT Int : 350 ms P-R-T Axes : 58 -26 55 degrees QTcB Int : 437 ms Normal sinus rhythm Left ventricular hypertrophy with repolarization abnormality ( R in aVL , Bristol product , Romhilt- Huitron ) Abnormal ECG Confirmed by JESS SAUCEDA, CHANG ([id number]), commissioning editor DOROTEO HERNANDEZ ([id number]) on 05/29/2024 1:53:14 PM Referred By: Confirmed By: CHANG MERCADO MD 05/29/24 1353 Date Chang Mercado MD CC: Dr. Dionne Magaña MD; Dr. Sarmad Hidalgo, DO Signed Normal [facility] Bedside Glucoseon 05-28-2024 FINGERSTICK GLU 102 mg/dL Normal 74-106 [facility] Comment on above: Result Comment: JONI CINTRON OF PATIENT CARE PER NURSING PROTOCOL Performed By: #### L 501.080 ####[facility] [address] [place], [address] Emergency Department Summary on 05-28-2024 Emergency Department Summary [facility] Medical Records Department [address] [place] [address] Emergency Department Summary 05/28/24 MR#: [id number] Acct: [id number] Name: JERRELL STRICKLAND Rep #: [id number] : 1945 78 From: Sarmad Hidalgo DO PCP: Dr. Dionne Magaña MD Status:REG ER Location: ED HPI History of Present Illness Chief Complaint: Nausea/Vomiting/Diarrhea Narrative Narrative: Patient is a 78-year-old female with a past medical history of hypertension, GERD, type 2 diabetes, hypothyroidism who presents to the emergency department chief complaint of nausea vomiting not feeling well. States that this morning she woke up and was not feeling well and as the morning went on she developed nausea vomiting that progressed throughout the rest of the day prompting her to come here for further evaluation management. Patient denies any recent sick contacts. Patient's states that she was sweating at home and has chills but denies any known fever. PFSH PFS Medical History Post-menopausal History of steroid therapy Arthritis Excessive bleeding Back pain Difficulty swallowing History of diverticulitis Gastric reflux History of echocardiogram Cardiology follow-up encounter Type 2 diabetes mellitus Vasovagal syncope Essential hypertension Bradycardia Hypothyroidism Hyperlipidemia Osteoarthritis Debility Wears glasses Wears dentures Thyroid disease Easy bruising Shortness of breath on exertion Leg cramps History of edema History of rheumatic fever Localized edema Bleeding tendency Injury of head and neck Chronic pain Gastroesophageal reflux disease Leukocytosis Diabetes mellitus Lumbar spinal stenosis Right lumbar radiculopathy Allergic rhinitis Vitamin B12 deficiency Restless leg syndrome Bilateral sacral insufficiency fracture with delayed healing History of colon polyps Asthma Chronic low back pain Home Medications ???Medication ???Instructions ???Recorded ???Last Taken ???Type albuterol sulfate 90 mcg/actuation 2 puff inhalation Q6H PRN sob 11/29/21 03/07/24 History aerosol inhaler cholecalciferol (vitamin D3) 25 25 mcg PO DAILY 11/29/21 05/14/24 History mcg (1,000 unit) tablet (Vitamin D3) triamcinolone acetonide 55 mcg 1 spray intranasal QHS PRN allergy 11/29/21 03/06/24 History nasal spray aerosol (Nasacort) symptoms loperamide 2 mg tablet 2 mg PO Q6H PRN nausea and vomiting 01/10/23 Unknown History guaifenesin 600 mg tablet, 600 mg PO BID PRN cough 06/15/23 Unknown History extended release 12 hr (Mucinex) mecobalamin (vitamin B12) 1,000 1,000 mcg PO DAILY #30 tabs 07/21/23 05/14/24 Rx mcg chewable tablet amlodipine 10 mg tablet See Rx Instructions .Route 11/25/23 05/14/24 Rx .COMPLEX #90 tabs aspirin 81 mg chewable tablet 81 mg PO DAILY #30 tabs 12/22/23 05/14/24 Rx gabapentin 300 mg capsule 300 mg PO QHS #30 caps 02/01/24 05/14/24 Rx fluticasone 500 mcg-salmeterol 50 1 ea inhalation BID 03/02/24 05/14/24 History mcg/dose blistr powdr for inhalation (Jayla Pinto) famotidine 40 mg tablet 40 mg PO DAILY #90 tabs 03/13/24 05/14/24 Rx olmesartan 20 mg tablet 20 mg PO DAILY #90 TABLETS 03/14/24 05/14/24 Rx levothyroxine 200 mcg tablet 200 mcg PO DAILY #90 tabs 03/22/24 05/14/24 Rx ferrous sulfate 325 mg (65 mg 325 mg PO DAILY Supplement #90 tabs 04/16/24 05/14/24 Rx iron) tablet mirtazapine 7.5 mg tablet 7.5 mg PO QHS #90 tabs 04/16/24 05/14/24 Rx pantoprazole 20 mg tablet,delayed 20 mg PO DAILY #60 tabs 04/16/24 05/14/24 Rx release acetaminophen 325 mg capsule 650 mg PO Q6H PRN fever or pain 04/27/24 Unknown History (Tylenol) ascorbic acid (vitamin C) 1,000 mg 0.5 g PO DAILY 04/27/24 05/14/24 History capsule hydrocodone-acetaminophen 5-325mg 1 tab PO Q8H PRN Pain 04/27/24 Unknown History 5mg-325mg cetirizine 10 mg tablet 10 mg PO DAILY PRN allergy 05/08/24 Unknown Rx symptoms #30 TABLETS ammonium lactate 12 % lotion 1 applic topical BID PRN dry skin 05/15/24 Unknown History dicyclomine 10 mg capsule 10 mg PO BID PRN abdominal pain 05/15/24 Unknown History meloxicam 15 mg tablet 7.5 mg PO BID 05/15/24 05/14/24 History ropinirole 0.5 mg tablet 1 mg PO DAILY 05/15/24 05/14/24 History rosuvastatin 20 mg tablet 20 mg PO DAILY 05/15/24 05/14/24 History sennosides 8.6 mg tablet (senna) 17.2 mg PO BID PRN constipation 05/15/24 Unknown History zinc acetate 50 mg (zinc) capsule 50 mg PO DAILY 05/15/24 05/14/24 History (Galzin) ondansetron 4 mg disintegrating 4 mg PO Q6H PRN nausea and 05/28/24 Unknown Rx tablet vomiting #20 tabs Allergy/AdvReac Type Severity Reaction Status Date / Time clindamycin Allergy Mild rash Verified 05/28/24 19:28 codeine phosphate (From AdvReac Severe Nausea Verified 05/11 (more content not included)... Normal [facility] M100.678on 05-28-2024 M100.678 Pending SARS-CoV-2 (COVID 19) Negative INFLUENZA A Negative INFLUENZA B Negative RSV PCR Negative Normal [facility] Comment on above: Performed By: #### M 100.678 ####[facility] [address] [place], [place], [id number] Urinalysis, Completeon 05-28 AMORPHOUS 1+ Normal [facility] Comment on above: Order Comment: CIRILO RUBIOR TO SPECIFY Performed By: #### L 400.0001 ####[facility] [address] [place], [place], [id number] BACTERIA 1+ /hpf Normal None Seen [facility] Comment on above: Order Comment: CIRILO CTOR TO SPECIFY Performed By: #### L 400.0001 ####[facility] [address] [place], [address] EPI,SQUAMOUS 5-10 SEEN Normal 5-10 [facility] Comment on above: Order Comment: CIRILO CTOR TO SPECIFY Performed By: #### L 400.0001 ####[facility] [address] [place], [address] WBC 5-10 SEEN Normal 0-5 [facility] Comment on above: Order Comment: COLLE CTOR TO SPECIFY Performed By: #### L 400.0001 ####[facility] [address] [place], [address] Mucus Ql (Urine sed) 0 SEEN Normal [facility] Comment on above: Order Comment: COLLE CTOR TO SPECIFY Performed By: #### L 400.0001 ####[facility] [address] [place], [address] RBC 0 SEEN Normal 0-5 [facility] Comment on above: Order Comment: COLLE CTOR TO SPECIFY Performed By: #### L 400.0001 ####[facility] [address] [place], [place], [id number] CNOVon 12-24-2023 CNOV Office Visit ([facility]WSTR ) -- JERRELL STRICKLAND ([id number]) 1945 F Date Time Provider Department 12/24/23 3:00 PM NOELLE GARCIA [facility] During your visit today, we recorded the following information about you: Temperature Pulse Respiration Blood pressure 98.7 degrees 90/minute 18/minute 119/71 Weight 73 kg Noelle Garcia APRN.FALAFEL CART COOK 12/30/2023 12:47 PM Addendum This note was created using NoteWriter. Subjective Jerrell Magdi Gopaljenifercésar is a 78 year old female. Reports 1 week of right large toe pain. Patient reports remote hx of gout. Objective BP 119/71 Pulse 90 Temp 37.1 ?C (98.7 ?F) Resp 18 Wt 73 kg (160 lb 15 oz) SpO2 96% BMI 27.62 kg/m? Physical Exam PHYSICAL EXAMINATION General appearance: Well appearing, alert, in no acute distress, well-hydrated, well nourished. Skin: Positives: Right great toe red from distal tip to 1st tarsal joint. Musculoskeletal: Positive findings: joint location: redness and swelling to right great toe, tender with palpation. Assessment and Plan ASSESSMENT/PLAN: 1. Acute gout involving toe of right foot, unspecified cause - ICD9: 274.01, ICD10: M10.9 - PREDNISONE 10 MG TABLET Noelle Garcia APRN.FALAFEL CART COOK Allergies As of Date: 12/24/2023 Noted Allergy Reaction ACETAMINOPHEN-CODEINE 10/13/2015 10 - Anaphylaxis Comments: Can tolerate [place] SEASONAL ALLERGIES 10/13/2015 14 - Other: See Comments Date Reviewed: 12/24/2023 Reviewed by: Zofia Yepez MA - Fully Assessed Reason for Visit: Toe Pain (Big) [1588] Cmt: R x1 week, possible infection Primary Visit Diagnosis:Acute gout involving toe of right foot, unspecified cause [M10.9] Order(s):predniSONE (DELTASONE) 10 mg tabletTake 4 tabs daily for 3 days, then 2 tabs daily for 3 days, then 1 tab daily for 3 days with food.Disp: 21 tabletRfl: 0 Prescriptions as of 12/30/2023 - predniSONE (DELTASONE) 10 mg tablet Take 4 tabs daily for 3 days, then 2 tabs daily for 3 days, then 1 tab daily for 3 days with food. - levothyroxine (SYNTHROID) 200 mcg tablet Take 1 tablet by mouth every afternoon. - meloxicam (MOBIC) 7.5 mg tablet Take 7.5 mg by mouth two times a day. - triamcinolone acetonide (NASACORT AQ) 55 mcg nasal inhaler Use 2 Sprays in the nose once daily. - rosuvastatin (CRESTOR) 5 mg tablet Take 5 mg by mouth once daily. - olmesartan (BENICAR) 20 mg tablet Take 20 mg by mouth once daily. - Mirtazapine (REMERON) 7.5 mg tablet Take 7.5 mg by mouth. - FEROSUL 325 mg (65 mg iron) tablet Take 325 mg by mouth once daily. - famotidine (PEPCID) 40 mg tablet Take 40 mg by mouth once daily. - ammonium lactate (LAC-HYDRIN) 12 % lotion Apply to affected area. - rOPINIRole (REQUIP) 0.5 mg tablet Take 0.5-1 mg by mouth daily at bedtime. - amLODIPine (NORVASC) 10 mg tablet Take 10 mg by mouth daily at bedtime. - VITAMIN B-12 1,000 mcg TbER Take 1 tablet by mouth every afternoon. - BREO ELLIPTA 200-25 mcg/dose inhaler Inhale 1 puff by mouth daily with good oral care - gabapentin 300 mg Tb24 Take 300 mg by mouth daily at bedtime. - MULTIVITAMIN ORAL Take by mouth once daily. - ascorbic acid (VITAMIN C) 500 mg tablet Take 500 mg by mouth once daily. - Cetirizine 10 mg cap Take by mouth daily at bedtime. Problem List As Of Date 12/24/2023 Noted Resolved Digital mucous cyst [M67.449] 10/13/2015 Hypertension [I10] 11/20/2015 Asthma [J45.909] 11/20/2015 Hypothyroidism [E03.9] 11/20/2015 Syncope and collapse [R55] 11/20/2015 Hyperlipidemia [E78.5] 11/20/2015 Cognitive deficits [R41.89] 11/06/2023 Driving safety issue [Z91.89] 11/06/2023 Pneumocephalus [G93.89] 12/02/2023 Hyponatremia [E87.1] 12/03/2023 SIADH (syndrome of inappropriate ADH production*12/06/2023 Red blood cell antibody positive [R76.8] 12/21/2023 Prescriptions ordered this encounter Disp Refills Start End PREDNISONE 10 MG TABLET 21 t* 0 12/24/2023 01/02/2024 Sig: Take 4 tabs daily for 3 days, then 2 tabs daily for 3 days, then 1 tab daily for 3 days with food. Disposition: Return if symptoms worsen or fail to improve. Follow-up and Disposition History for Encounter Date Provider Department Center 12/24/2023 [id number] GARCIA [facility] [place] Encounter Status:Closed by NOELLE GARCIA on 12/24/23 Normal [facility] CNCOon 12-12-2023 CNCO Letter Text Normal [facility] CASE MANAGEMon 12-06-2023 CASE MANAGEM HNO ID: [id number] Author: ?, ?, ? Service: ? Author Type: ? Type: Care Mgt Progress Note Filed: 12/06/2023 12:37 Note Text: CARE MANAGEMENT PROGRESS NOTE SERVICE DATE: 12/06/2023 SERVICE TIME: 12:37 PM LOS: 4 days IMM Follow Up Copy Given: Yes Copy given to:: Patient Method: In Person SIGNATURE: Samreen Messina Sy CORADO PATIENT NAME: Jerrell Strickland DATE: December 06, 2023 TIME: 12:37 PM PAGER/CONTACT #: [phone] [facility] CNDSon 12-06-2023 CNDS HNO ID: [id number] Author: ELIZABETH SHAHID APRN.FALAFEL CART COOK Service: Hospital Medicine Author Type: Nurse Practitioner Type: Discharge Summary Filed: 12/06/2023 10:35 Note Text: -- Attestation signed by Vinicius Bolivar MD at 12/06/2023 12:30 PM [facility] STAFF PHYSICIAN NOTE OF PERSONAL INVOLVEMENT IN CARE I have reviewed the discharge instructions obtained and documented by the nurse practitioner and I personally participated in the marlow components. I have discussed the case and management of the patient's care. The following comments revise or confirm relevant marlow components of the note. Agree with assessment and plan. Care Coordination Discharge Management: I personally spent less than 30 minutes involved in the discharge management of this patient Vinicius Bolivar MD -- DISCHARGE SUMMARY PATIENT NAME: Jerrell Strickland ADMISSION DATE: 12/02/2023 DISCHARGE DATE: 12/06/2023 ATTENDING PHYSICIAN: Vinicius Bolivar MD Code Status: Not on file PCP: Dionne Magaña MD Highest Readmission Risk Score: 12 The 30 day readmissions risk score is derived from an internally validated risk model which evaluates patient level characteristics, utilization history, medication orders and lab results up until the day of discharge. Patients with a score of 40 or above are considered highest risk for readmission. Specific patient level drivers will be listed at the bottom of the summary. TRANSITIONS OF CARE CRITICAL ISSUES: MARLOW MEDICATION CHANGES: N/A LAB MONITORING NEEDED: Test BMP When 1 week IMAGING FOLLOW-UP: Not applicable LABS AND PROCEDURES PENDING AT DISCHARGE: No No pending results. FOLLOW UP: PCP REASON FOR HOSPITALIZATION: hyponatremia PRINCIPAL DIAGNOSIS: hyponatremia, SIADH SECONDARY DIAGNOSIS: Principal Problem: Pneumocephalus (POA: Yes) Active Problems: Hypertension (POA: Yes) Asthma (POA: Yes) Hypothyroidism (POA: Yes) Hyperlipidemia (POA: Yes) Hyponatremia (POA: Unknown) SIADH (syndrome of inappropriate ADH production) (HCC) (POA: Unknown) Resolved Problems: * No resolved hospital problems. * HOSPITAL COURSE: Jerrell Strickland is a 78 year old female with past medical history of HTN, HLD, hypothyroidism, asthma, RLE skin infection (+pseudomonas), R hip fx 2 yrs ago s/p surgical repair, and CVA (08/2023) who presented to [facility] ED on 12/01/23 per recommendation of PCP for ~1 week, was found to have Na of 123. Transferred to [facility] Main NSGY on 12/02/23 after OSH CTH on 11/30 reported pneumocephalus in region of clivus/cavernous sinus/sella without overt skull fracture. CTH on 12/01 at showed no pneumocephalus/skull fractures/other intracranial abnormality. NSGY stated the pneumocephalus was likely from IV placement. Patient remained hospitalized for hyponatremia, likely SIADH. Patient transferred to hospital medicine service on 12/03 for continued management and care. She was placed on 1 Liter fluid restriction. Na gradually improved to 135 on the day of discharge. Dizziness and weakness resolved. Close follow up with PCP on 12/13 scheduled. Pt instructed to have BMP rechecked at that time. PT/OT recommended home. She was discharged home in stable condition. OPERATIONS/PROCEDURE DURING THIS HOSPITALIZATION: * No surgery found * CT BRAIN WO IVCON Final Result IMPRESSION: No acute intracranial infarction, hemorrhage, or pneumocephalus. CONSULTS DURING HOSPITALIZATION: Treatment Team: Attending Provider: Vinicius Bolivar MD Primary Service: 4, Gim Nurse Practitioner: Elizabeth Shahid APRN.FALAFEL CART COOK No orders of the defined types were placed in this encounter. PATIENT CONDITION AT DISCHARGE: Stable ADVANCE CARE PLANNING DISCUSSION (if applicable): N/A DISCHARGE DISPOSITION: Home with Self Care Discharge Physical Exam: VITAL SIGNS: BP 132/50 Pulse 77 Temp 37 ?C (98.6 ?F) (Oral) Resp 15 Ht 162.6 cm (5' 4) Wt 73.9 kg (162 lb 14.7 oz) SpO2 98% BMI 27.97 kg/m? GENERAL: Alert, no distress, cooperative SKIN: Skin color, texture, turgor normal. No rashes or lesions. LUNGS: Lungs clear to auscultation, Good diaphragmatic excursion CARDIAC: Normal S1 and S2; no rubs, murmurs, or gallops ABDOMEN: Abdomen soft, non-tender, BS normal, No masses or organomegaly EXTREMITIES: Extremities normal, no deformities, edema, clubbing or skin discoloration. Good capillary refill., No ulcers NEURO: Grossly normal cognition, motor function, and cranial nerves III-XII PULSES: 2+ radial WOUND/SURGICAL SITE CARE: None SUPPLIES OR EQUIPMENT: None DIET: Resume pre-hospital diet ACTIVITY AND EXERCISE: Resume pre-hospital activity ADDITIONAL INFORMATION: You were admitted to the hospital for low sodium levels. A CT scan of your brain at the other hospital showed pneumocephal (more content not included)... Normal [facility] Renal function 2000 panelon 12-06-2023 Albumin [Mass/Vol] 3.8 g/dL Low 3.9-4.9 [facility] Comment on above: Order Comment: Speci men Type: BLOOD SPECIMENOrdering Facility: [facility] Address: [address] [place] [address] Performed By: #### 2 4362-6 ####[facility] LABCLIA [id number] [place] [address] [place] Anion gap [Moles/Vol] 11 mmol/L Normal 9-18 [facility] Comment on above: Order Comment: Speci men Type: BLOOD SPECIMENOrdering Facility: [facility] Address: [address] [place] [address] Performed By: #### 2 4362-6 ####[facility] LABCLIA [id number] [address] [address] [place] Calcium [Mass/Vol] 9.4 mg/dL Normal 8.5-10.2 [facility] Comment on above: Order Comment: Speci men Type: BLOOD SPECIMENOrdering Facility: [facility] Address: [address] [place] [address] Performed By: #### 2 4362-6 ####[facility] LABCLIA [id number] [place] [address] [place] Chloride [Moles/Vol] 102 mmol/L Normal 97-105 [facility] Comment on above: Order Comment: Speci men Type: BLOOD SPECIMENOrdering Facility: [facility] Address: [address] [place] [address] Performed By: #### 2 4362-6 ####[facility] LABCLIA [id number] [place] [address] [place] CO2 [Moles/Vol] 22 mmol/L Normal 22-30 [facility] Comment on above: Order Comment: Speci men Type: BLOOD SPECIMENOrdering Facility: [facility] Address: [address] [place] [address] Performed By: #### 2 4362-6 ####[facility] LABCLIA [id number] [place] [address] [place] Creatinine [Mass/Vol] 0.86 mg/dL Normal 0.58-0.96 [facility] Comment on above: Order Comment: Speci men Type: BLOOD SPECIMENOrdering Facility: [facility] Address: [address] [place] [address] Performed By: #### 2 4362-6 ####[facility] LABCLIA [id number] [place] [address] [facility] [place] Creatinine and Glomerular filtration rate.predicted panel (S/P/Bld) 68 mL/min/1.73m??? Normal >=60 [facility] Comment on above: Order Comment: Rajiv francis Type: BLOOD SPECIMENOrdering Facility: [facility] Address: [address] [place] [address] Result Comment: Audra mated Glomerular Filtration Rate (eGFR) is calculated using the 2020 CKD-EPI creatinine equation. This equation utilizes serum creatinine, sex, and age as parameters. The creatinine assay has traceable calibration to isotope dilution-mass spectrometry. Refer to KDIGO guidelines for clinical interpretation. In patients with unstable renal function, e.g. those with acute kidney injury, the eGFR may not accurately reflect actual GFR. Performed By: #### 2 4362-6 ####[facility] LABIA [id number] [place] [address] [facility] Glucose [Mass/Vol] 95 mg/dL Normal 74-99 [facility] Comment on above: Order Comment: Rajiv francis Type: BLOOD SPECIMENOrdering Facility: [facility] Address: [address] [place] [address] Result Comment: [place] Diabetes Association (ADA) provides guidance for cutoff values for fasting glucose and random glucose. The ADA defines fasting as no caloric intake for at least 8 hours. Fasting plasma glucose results between 100 to 125 mg/dL indicate increased risk for diabetes (prediabetes). Fasting plasma glucose results greater than or equal to 126 mg/dL meet the criteria for diagnosis of diabetes. In the absence of unequivocal hyperglycemia, results should be confirmed by repeat testing. In a patient with classic symptoms of hyperglycemia or hyperglycemic crisis, random plasma glucose results greater than or equal to 200 mg/dL meet the criteria for diagnosis of diabetes. Reference: Standards of Medical Care in Diabetes 2016, [place] Diabetes Association. Diabetes Care. 2016.39(Suppl 1). Performed By: #### 2 4362-6 ####[facility] LABCLIA [id number] [id number] [address] [place] Phosphate [Mass/Vol] 4.0 mg/dL Normal 2.7-4.8 [facility] Comment on above: Order Comment: Speci men Type: BLOOD SPECIMENOrdering Facility: [facility] Address: [address] [place] [address] Performed By: #### 2 4362-6 ####[facility] LABCLIA [id number] [place] [address] [place] Potassium [Moles/Vol] 4.5 mmol/L Normal 3.7-5.1 [facility] Comment on above: Order Comment: Speci men Type: BLOOD SPECIMENOrdering Facility: [facility] Address: [address] [place] [address] Performed By: #### 2 4362-6 ####[facility] LABCLIA [id number] [place] [address] [place] Sodium [Moles/Vol] 135 mmol/L Low 136-144 [facility] Comment on above: Order Comment: Speci men Type: BLOOD SPECIMENOrdering Facility: [facility] Address: [address] [place] [address] Performed By: #### 2 4362-6 ####[facility] LABCLIA [id number] [place] [address] [place] Urea nitrogen [Mass/Vol] 28 mg/dL High 7-21 [facility] Comment on above: Order Comment: Speci men Type: BLOOD SPECIMENOrdering Facility: [facility] Address: [address] [place] [address] Performed By: #### 2 4362-6 ####[facility] LABCLIA [id number] [place] [address] [place] Basic metabolic 2000 panelon 12-05-2023 Anion gap [Moles/Vol] 16 mmol/L Normal 9-18 [facility] Comment on above: Order Comment: Speci men Type: BLOOD SPECIMENOrdering Facility: [facility] Address: [address] [place] [address] Performed By: #### 2 4321-2, , 2776-07 ####[facility] LABCLIA [id number] [address] [address] [place] Calcium [Mass/Vol] 9.3 mg/dL Normal 8.5-10.2 [facility] Comment on above: Order Comment: Speci men Type: BLOOD SPECIMENOrdering Facility: [facility] Address: [address] [place] [address] Performed By: #### 2 4321-2, , 2776-07 ####[facility] LABCLIA [id number] [address] [address] [place] Chloride [Moles/Vol] 98 mmol/L Normal 97-105 [facility] Comment on above: Order Comment: Speci men Type: BLOOD SPECIMENOrdering Facility: [facility] Address: [address] [place] [address] Performed By: #### 2 4321-2, , 2776-07 ####[facility] LABCLIA [id number] [address] [address] [place] CO2 [Moles/Vol] 18 mmol/L Low 22-30 [facility] Comment on above: Order Comment: Speci men Type: BLOOD SPECIMENOrdering Facility: [facility] Address: [address] [place] [address] Performed By: #### 2 4321-2, , 2776-07 ####[facility] LABCLIA [id number] [address] [address] [place] Creatinine [Mass/Vol] 0.88 mg/dL Normal 0.58-0.96 [facility] Comment on above: Order Comment: Speci men Type: BLOOD SPECIMENOrdering Facility: [facility] Address: [address] [place] [address] Performed By: #### 2 4321-2, 29847-9, 2776-07 ####[facility] LABIA [id number] [place] [id number] [place] Creatinine and Glomerular filtration rate.predicted panel (S/P/Bld) 67 mL/min/1.73m??? Normal >=60 [facility] Comment on above: Order Comment: aRjiv francis Type: BLOOD SPECIMENOrdering Facility: [facility] Address: [address] [place] [address] Result Comment: Audra mated Glomerular Filtration Rate (eGFR) is calculated using the 2020 CKD-EPI creatinine equation. This equation utilizes serum creatinine, sex, and age as parameters. The creatinine assay has traceable calibration to isotope dilution-mass spectrometry. Refer to KDIGO guidelines for clinical interpretation. In patients with unstable renal function, e.g. those with acute kidney injury, the eGFR may not accurately reflect actual GFR. Performed By: #### 2 4321-2, , 2776-07 ####[facility] LABIA [id number] [place] [address] [place] Glucose [Mass/Vol] 119 mg/dL High 74-99 [facility] Comment on above: Order Comment: Rajiv francis Type: BLOOD SPECIMENOrdering Facility: [facility] Address: [address] [place] [address] Result Comment: [place] Diabetes Association (ADA) provides guidance for cutoff values for fasting glucose and random glucose. The ADA defines fasting as no caloric intake for at least 8 hours. Fasting plasma glucose results between 100 to 125 mg/dL indicate increased risk for diabetes (prediabetes). Fasting plasma glucose results greater than or equal to 126 mg/dL meet the criteria for diagnosis of diabetes. In the absence of unequivocal hyperglycemia, results should be confirmed by repeat testing. In a patient with classic symptoms of hyperglycemia or hyperglycemic crisis, random plasma glucose results greater than or equal to 200 mg/dL meet the criteria for diagnosis of diabetes. Reference: Standards of Medical Care in Diabetes 2016, [place] Diabetes Association. Diabetes Care. 2016.39(Suppl 1). Performed By: #### 2 4321-2, , 2776-07 ####[facility] LABCLIA [id number] [address] [address] [place] Potassium [Moles/Vol] 5.0 mmol/L Normal 3.7-5.1 [facility] Comment on above: Order Comment: Speci men Type: BLOOD SPECIMENOrdering Facility: [facility] Address: [address] [place] [address] Performed By: #### 2 4321-2, , 2776-07 ####[facility] LABCLIA [id number] [place] [address] [place] Sodium [Moles/Vol] 132 mmol/L Low 136-144 [facility] Comment on above: Order Comment: Speci men Type: BLOOD SPECIMENOrdering Facility: [facility] Address: [address] [place] [address] Performed By: #### 2 4321-2, , 2776-07 ####[facility] LABIA [id number] [place] [address] [place] Urea nitrogen [Mass/Vol] 26 mg/dL High 7-21 [facility] Comment on above: Order Comment: Speci men Type: BLOOD SPECIMENOrdering Facility: [facility] Address: [address] [place] [address] Performed By: #### 2 4321-2, , 2776-07 ####[facility] LABIA [id number] [address] [address] [place] Magnesium SerPl-mCncon 12-04 Magnesium [Mass/Vol] 1.9 mg/dL Normal 1.7-2.3 [facility] Comment on above: Order Comment: Speci men Type: BLOOD SPECIMENOrdering Facility: [facility] Address: [address] [place] [address] Performed By: #### 2 4321-2, 92993-9, 2776- ####[facility] LABCLIA [id number] [place] [id number] [place] Phosphate SerPl-mCncon 12-04 Phosphate [Mass/Vol] 4.0 mg/dL Normal 2.7-4.8 [facility] Comment on above: Order Comment: Speci men Type: BLOOD SPECIMENOrdering Facility: [facility] Address: [address] [place] [address] Performed By: #### 2 4321-2, , 2776-07 ####[facility] LABCLIA [id number] [place] [address] [place] Basic metabolic 2000 panelon 12-04-2023 Anion gap [Moles/Vol] 17 mmol/L Normal 9-18 [facility] Comment on above: Order Comment: Speci men Type: BLOOD SPECIMENOrdering Facility: [facility] Address: [address] [place] [address] Performed By: #### 2 4321-2 ####[facility] LABCLIA [id number] [place] [address] [place] Calcium [Mass/Vol] 9.5 mg/dL Normal 8.5-10.2 [facility] Comment on above: Order Comment: Speci men Type: BLOOD SPECIMENOrdering Facility: [facility] Address: [address] [place] [address] Performed By: #### 2 4321-2 ####[facility] LABCLIA [id number] [place] [id number] [place] Chloride [Moles/Vol] 90 mmol/L Low 97-105 [facility] Comment on above: Order Comment: Speci men Type: BLOOD SPECIMENOrdering Facility: [facility] Address: [address] [place] [address] Performed By: #### 2 4321-2 ####[facility] LABCLIA [id number] [place] [address] [place] CO2 [Moles/Vol] 19 mmol/L Low 22-30 [facility] Comment on above: Order Comment: Speci men Type: BLOOD SPECIMENOrdering Facility: [facility] Address: [address] [place] [address] Performed By: #### 2 4321-2 ####[facility] LABIA [id number] [place] [address] [place] Creatinine [Mass/Vol] 0.92 mg/dL Normal 0.58-0.96 [facility] Comment on above: Order Comment: Speci men Type: BLOOD SPECIMENOrdering Facility: [facility] Address: [address] [place] [address] Performed By: #### 2 4321-2 ####[facility] [id number] [place] [address] [place] [facility] Creatinine and Glomerular filtration rate.predicted panel (S/P/Bld) 63 mL/min/1.73m??? Normal >=60 [facility] Comment on above: Order Comment: Speci men Type: BLOOD SPECIMENOrdering Facility: [facility] Address: [address] [place] [address] Result Comment: Audra mated Glomerular Filtration Rate (eGFR) is calculated using the 2020 CKD-EPI creatinine equation. This equation utilizes serum creatinine, sex, and age as parameters. The creatinine assay has traceable calibration to isotope dilution-mass spectrometry. Refer to KDIGO guidelines for clinical interpretation. In patients with unstable renal function, e.g. those with acute kidney injury, the eGFR may not accurately reflect actual GFR. Performed By: #### 2 4321-2 ####[facility] LABIA [id number] [place] [address] [place] Glucose [Mass/Vol] 89 mg/dL Normal 74-99 [facility] Comment on above: Order Comment: Speci men Type: BLOOD SPECIMENOrdering Facility: [facility] Address: [address] [place] [id number] Result Comment: The [place] Diabetes Association (ADA) provides guidance for cutoff values for fasting glucose and random glucose. The ADA defines fasting as no caloric intake for at least 8 hours. Fasting plasma glucose results between 100 to 125 mg/dL indicate increased risk for diabetes (prediabetes). Fasting plasma glucose results greater than or equal to 126 mg/dL meet the criteria for diagnosis of diabetes. In the absence of unequivocal hyperglycemia, results should be confirmed by repeat testing. In a patient with classic symptoms of hyperglycemia or hyperglycemic crisis, random plasma glucose results greater than or equal to 200 mg/dL meet the criteria for diagnosis of diabetes. Reference: Standards of Medical Care in Diabetes 2016, [place] Diabetes Association. Diabetes Care. 2016.39(Suppl 1). Performed By: #### 2 4321-2 ####[facility] LABCLIA [id number] [place] [address] [place] Potassium [Moles/Vol] 4.2 mmol/L Normal 3.7-5.1 [facility] Comment on above: Order Comment: Speci men Type: BLOOD SPECIMENOrdering Facility: [facility] Address: [address] [place] [address] Performed By: #### 2 4321-2 ####[facility] LABIA [id number] [place] [address] [place] Sodium [Moles/Vol] 126 mmol/L Low 136-144 [facility] Comment on above: Order Comment: Speci men Type: BLOOD SPECIMENOrdering Facility: [facility] Address: [address] [place] [id number] Performed By: #### 2 4321-2 ####[facility] LABIA [id number] [place] [address] [place] Urea nitrogen [Mass/Vol] 21 mg/dL Normal 7-21 [facility] Comment on above: Order Comment: Speci men Type: BLOOD SPECIMENOrdering Facility: [facility] Address: [address] [place] [address] Performed By: #### 2 4321-2 ####[facility] LABCLIA [id number] [place] [address] [place] Anion gap [Moles/Vol] 15 mmol/L Normal 9-18 [facility] Comment on above: Order Comment: Speci men Type: BLOOD SPECIMENOrdering Facility: [facility] Address: [address] [place] [address] Performed By: #### 2 4321-2 ####[facility] LABCLIA [id number] [place] [address] [place] Calcium [Mass/Vol] 9.5 mg/dL Normal 8.5-10.2 [facility] Comment on above: Order Comment: Speci men Type: BLOOD SPECIMENOrdering Facility: [facility] Address: [address] [place] [address] Performed By: #### 2 4321-2 ####[facility] LABCLIA [id number] [place] [address] [place] Chloride [Moles/Vol] 92 mmol/L Low 97-105 [facility] Comment on above: Order Comment: Speci men Type: BLOOD SPECIMENOrdering Facility: [facility] Address: [address] [place] [address] Performed By: #### 2 4321-2 ####[facility] LABCLIA [id number] [place] [address] [place] CO2 [Moles/Vol] 20 mmol/L Low 22-30 [facility] Comment on above: Order Comment: Speci men Type: BLOOD SPECIMENOrdering Facility: [facility] Address: [address] [place], [place] [address] Performed By: #### 2 4321-2 ####[facility] LABCLIA [id number] [place] [address] [place] Creatinine [Mass/Vol] 0.85 mg/dL Normal 0.58-0.96 [facility] Comment on above: Order Comment: Rajiv francis Type: BLOOD SPECIMENOrdering Facility: [facility] Address: [address] [place] [address] Performed By: #### 2 4321-2 ####[facility] LABCLIA [id number] [place] [address] [place] Creatinine and Glomerular filtration rate.predicted panel (S/P/Bld) 69 mL/min/1.73m??? Normal >=60 [facility] Comment on above: Order Comment: Rajiv francis Type: BLOOD SPECIMENOrdering Facility: [facility] Address: [address] [place] [address] Result Comment: Audra mated Glomerular Filtration Rate (eGFR) is calculated using the 2020 CKD-EPI creatinine equation. This equation utilizes serum creatinine, sex, and age as parameters. The creatinine assay has traceable calibration to isotope dilution-mass spectrometry. Refer to KDIGO guidelines for clinical interpretation. In patients with unstable renal function, e.g. those with acute kidney injury, the eGFR may not accurately reflect actual GFR. Performed By: #### 2 4321-2 ####[facility] LABCLIA [id number] [place] [address] [place] Glucose [Mass/Vol] 86 mg/dL Normal 74-99 [facility] Comment on above: Order Comment: Rajiv francis Type: BLOOD SPECIMENOrdering Facility: [facility] Address: [address] [place] [address] Result Comment: The [place] Diabetes Association (ADA) provides guidance for cutoff values for fasting glucose and random glucose. The ADA defines fasting as no caloric intake for at least 8 hours. Fasting plasma glucose results between 100 to 125 mg/dL indicate increased risk for diabetes (prediabetes). Fasting plasma glucose results greater than or equal to 126 mg/dL meet the criteria for diagnosis of diabetes. In the absence of unequivocal hyperglycemia, results should be confirmed by repeat testing. In a patient with classic symptoms of hyperglycemia or hyperglycemic crisis, random plasma glucose results greater than or equal to 200 mg/dL meet the criteria for diagnosis of diabetes. Reference: Standards of Medical Care in Diabetes 2016, [place] Diabetes Association. Diabetes Care. 2016.39(Suppl 1). Performed By: #### 2 4321-2 ####[facility] LABCLIA [id number] [place] [address] [place] Potassium [Moles/Vol] 4.3 mmol/L Normal 3.7-5.1 [facility] Comment on above: Order Comment: Speci men Type: BLOOD SPECIMENOrdering Facility: [facility] Address: [address] [place] [address] Performed By: #### 2 4321-2 ####[facility] LABIA [id number] [place] [address] [place] Sodium [Moles/Vol] 127 mmol/L Low 136-144 [facility] Comment on above: Order Comment: Speci men Type: BLOOD SPECIMENOrdering Facility: [facility] Address: [address] [place] [address] Performed By: #### 2 4321-2 ####[facility] LABIA [id number] [place] [address] [place] Urea nitrogen [Mass/Vol] 19 mg/dL Normal 7-21 [facility] Comment on above: Order Comment: Speci men Type: BLOOD SPECIMENOrdering Facility: [facility] Address: [address] [place] [address] Performed By: #### 2 4321-2 ####[facility] LABIA [id number] [place] [id number] [place] CONSULT PROGon 12-04-2023 CONSULT PROG HNO ID: [id number] Author: JULIO HERNÁNDEZ RPh Service: Pharmacy Author Type: Pharmacist Type: Consult Progress Note Filed: 12/04/2023 08:47 Note Text: PHARMACY PROGRESS NOTE Patient Name: Jerrell Strickland Admission Date: 12/02/2023 Date of Consult: 12/04/2023 Time of Consult: 8:45 AM In accordance with the pharmacy dose optimization service, the following medication changes/decisions have been made: Medication Current Regimen Dosing Assessment Indication Assessment/Plan Famotidine 40mg Q24h Modify dosing to 20mg Q24h gastroesophageal reflux disease (GERD) Order has been modified to standard dosing based on the patient's estimated renal function: CrCl 36.2 mL/min For medications which dose is dependent on renal function, a pharmacist will monitor renal function daily and adjust doses accordingly. Any dose adjustments needed based on changes in indication should be addressed by an LIP. If you have any questions, please contact Julio Hernández pharmD at [phone]. Estimated Creatinine Clearance: 36.2 mL/min (A) (based on SCr of 1.22 mg/dL (H)). Serum creatinine and eGFR results 72 hours 12/03/2023 12/03/2023 12/02/2023 3:12 PM 6:10 AM 12:24 PM SCr (mg/dL) 1.22 0.96 0.61 eGFR (mL/min/1.73m2) 45 60 91 Allergies: ALLERGIES Allergen Reactions Acetaminophen-Codei* Anaphylaxis Seasonal Allergies Other: See Comments Last 1 Encounter Wt Readings: Date: Wt: 12/01/2023 73.9 kg (162 lb 14.7 oz) Last 1 Encounter Ht Readings: Date: Ht: 12/01/2023 162.6 cm (5' 4) Julio Hernández [facility] December 04, 2023 8:45 AM Normal [facility] THERAPY NTon 12-04-2023 THERAPY NT HNO ID: [id number] Author: MANUEL DISLA, PT, DPT Service: Physical Therapy Author Type: Physical Therapist Type: Therapy (PT/OT/Speech/Resp) Filed: 12/04/2023 07:22 Note Text: THERAPY COMMUNICATION SERVICE DATE: 12/04/2023 ROOM: [facility] Occupational therapy consult received. Chart reviewed. No acute skilled occupational therapy needs identified. Pt with a documented Nursing 6 Clicks score of 23 or 24 indicating that the patient is supervised or independent with all mobility. No acute cognitive, vision, or UE deficits identified in chart. Will discontinue Occupational Therapy Consult at this time. Please re-consult if the patient has a change of condition and develops mobility, ADL or cognitive deficits that require skilled therapy, and add a comment in the new order as to why the patient needs seen. Thank you. SIGNATURE: Manuel Disla, PT, DPT PATIENT NAME: Jerrell Strickland DATE: December 04, 2023 TIME: 7:22 AM Normal [facility] Basic metabolic 2000 panelon 12-03-2023 Anion gap [Moles/Vol] 15 mmol/L Normal 9-18 [facility] Comment on above: Order Comment: Speci men Type: BLOOD SPECIMENOrdering Facility: [facility] Address: [address] [place] [address] Performed By: #### 2 4321-2, 3083-1 ####[facility] LABCLIA [id number] [place] [address] [place] Calcium [Mass/Vol] 9.1 mg/dL Normal 8.5-10.2 [facility] Comment on above: Order Comment: Speci men Type: BLOOD SPECIMENOrdering Facility: [facility] Address: [address] [place] [address] Performed By: #### 2 4321-2, 3083- ####[facility] LABCLIA [id number] [place] [address] [place] Chloride [Moles/Vol] 89 mmol/L Low 97-105 [facility] Comment on above: Order Comment: Speci men Type: BLOOD SPECIMENOrdering Facility: [facility] Address: [address] [place] [address] Performed By: #### 2 4321-2, 3083-1 ####[facility] LABCLIA [id number] [place] [id number] [place] CO2 [Moles/Vol] 20 mmol/L Low 22-30 [facility] Comment on above: Order Comment: Speci men Type: BLOOD SPECIMENOrdering Facility: [facility] Address: [address] [place] [address] Performed By: #### 2 4321-2, 3083-1 ####[facility] LABIA [id number] [address] [address] [place] Creatinine [Mass/Vol] 1.22 mg/dL High 0.58-0.96 [facility] Comment on above: Order Comment: Speci penny Type: BLOOD SPECIMENOrdering Facility: [facility] Address: [address] [place] [address] Performed By: #### 2 4321-2, 3083-1 ####[facility] LABIA [id number] [place] [address] [place] Creatinine and Glomerular filtration rate.predicted panel (S/P/Bld) 45 mL/min/1.73m??? Low >=60 [facility] Comment on above: Order Comment: Rajiv francis Type: BLOOD SPECIMENOrdering Facility: [facility] Address: [address] [place] [address] Result Comment: Audra mated Glomerular Filtration Rate (eGFR) is calculated using the 2020 CKD-EPI creatinine equation. This equation utilizes serum creatinine, sex, and age as parameters. The creatinine assay has traceable calibration to isotope dilution-mass spectrometry. Refer to KDIGO guidelines for clinical interpretation. In patients with unstable renal function, e.g. those with acute kidney injury, the eGFR may not accurately reflect actual GFR. Performed By: #### 2 4321-2, 3083-07 ####[facility] LABIA [id number] [place] [address] [place] Glucose [Mass/Vol] 109 mg/dL High 74-99 [facility] Comment on above: Order Comment: Specera francis Type: BLOOD SPECIMENOrdering Facility: [facility] Address: [address] [place] [address] Result Comment: [place] Diabetes Association (ADA) provides guidance for cutoff values for fasting glucose and random glucose. The ADA defines fasting as no caloric intake for at least 8 hours. Fasting plasma glucose results between 100 to 125 mg/dL indicate increased risk for diabetes (prediabetes). Fasting plasma glucose results greater than or equal to 126 mg/dL meet the criteria for diagnosis of diabetes. In the absence of unequivocal hyperglycemia, results should be confirmed by repeat testing. In a patient with classic symptoms of hyperglycemia or hyperglycemic crisis, random plasma glucose results greater than or equal to 200 mg/dL meet the criteria for diagnosis of diabetes. Reference: Standards of Medical Care in Diabetes 2016, [place] Diabetes Association. Diabetes Care. 2016.39(Suppl 1). Performed By: #### 2 4321-2, 3083- ####[facility] LABCLIA [id number] [place] [address] [place] Potassium [Moles/Vol] 4.3 mmol/L Normal 3.7-5.1 [facility] Comment on above: Order Comment: Rehanai men Type: BLOOD SPECIMENOrdering Facility: [facility] Address: [address] [place] [address] Performed By: #### 2 4320-2, 3083-07 ####[facility] LABCLIA [id number] [place] [address] [place] Sodium [Moles/Vol] 124 mmol/L Low 136-144 [facility] Comment on above: Order Comment: Rajiv francis Type: BLOOD SPECIMENOrdering Facility: [facility] Address: [address] [place] [address] Performed By: #### 2 4320-2, 3083-07 ####[facility] LABCLIA [id number] [place] [address] [place] Urea nitrogen [Mass/Vol] 20 mg/dL Normal 7-21 [facility] Comment on above: Order Comment: Rehanai men Type: BLOOD SPECIMENOrdering Facility: [facility] Address: [address] [place] [address] Performed By: #### 2 4320-2, 3083- ####[facility] LABCLIA [id number] [place] [address] [place] Anion gap [Moles/Vol] 13 mmol/L Normal 9-18 [facility] Comment on above: Order Comment: Speci men Type: BLOOD SPECIMENOrdering Facility: [facility] Address: [address] [place] [id number] Performed By: #### 2 4321-2 ####[facility] LABCLIA [id number] [address] [address] [place] Calcium [Mass/Vol] 9.3 mg/dL Normal 8.5-10.2 [facility] Comment on above: Order Comment: Speci men Type: BLOOD SPECIMENOrdering Facility: [facility] Address: [address] [place], [place] [address] Performed By: #### 2 4321-2 ####[facility] LABCLIA [id number] [place] [address] [place] Chloride [Moles/Vol] 95 mmol/L Low 97-105 [facility] Comment on above: Order Comment: Speci men Type: BLOOD SPECIMENOrdering Facility: [facility] Address: [address] [place], [place] [address] Performed By: #### 2 4321-2 ####[facility] LABCLIA [id number] [place] [address] [place] CO2 [Moles/Vol] 20 mmol/L Low 22-30 [facility] Comment on above: Order Comment: Speci men Type: BLOOD SPECIMENOrdering Facility: [facility] Address: [address] [place], [place] [address] Performed By: #### 2 4321-2 ####[facility] LABCLIA [id number] [place] [id number] [place] Creatinine [Mass/Vol] 0.96 mg/dL Normal 0.58-0.96 [facility] Comment on above: Order Comment: Speci men Type: BLOOD SPECIMENOrdering Facility: [facility] Address: [address] [place], [place] [address] Performed By: #### 2 4321-2 ####[facility] LABCLIA [id number] [place] [address] [place] Creatinine and Glomerular filtration rate.predicted panel (S/P/Bld) 60 mL/min/1.73m??? Normal >=60 [facility] Comment on above: Order Comment: Rajiv francis Type: BLOOD SPECIMENOrdering Facility: [facility] Address: [address] [place] [address] Result Comment: Audra mated Glomerular Filtration Rate (eGFR) is calculated using the 2020 CKD-EPI creatinine equation. This equation utilizes serum creatinine, sex, and age as parameters. The creatinine assay has traceable calibration to isotope dilution-mass spectrometry. Refer to KDIGO guidelines for clinical interpretation. In patients with unstable renal function, e.g. those with acute kidney injury, the eGFR may not accurately reflect actual GFR. Performed By: #### 2 4321-2 ####[facility] LABIA [id number] [place] [address] [place] Glucose [Mass/Vol] 87 mg/dL Normal 74-99 [facility] Comment on above: Order Comment: Rajiv francis Type: BLOOD SPECIMENOrdering Facility: [facility] Address: [address] [place] [address] Result Comment: The [place] Diabetes Association (ADA) provides guidance for cutoff values for fasting glucose and random glucose. The ADA defines fasting as no caloric intake for at least 8 hours. Fasting plasma glucose results between 100 to 125 mg/dL indicate increased risk for diabetes (prediabetes). Fasting plasma glucose results greater than or equal to 126 mg/dL meet the criteria for diagnosis of diabetes. In the absence of unequivocal hyperglycemia, results should be confirmed by repeat testing. In a patient with classic symptoms of hyperglycemia or hyperglycemic crisis, random plasma glucose results greater than or equal to 200 mg/dL meet the criteria for diagnosis of diabetes. Reference: Standards of Medical Care in Diabetes 2016, [place] Diabetes Association. Diabetes Care. 2016.39(Suppl 1). Performed By: #### 2 4321-2 ####[facility] LABIA [id number] [place] [address] [place] Potassium [Moles/Vol] 4.2 mmol/L Normal 3.7-5.1 [facility] Comment on above: Order Comment: Speci men Type: BLOOD SPECIMENOrdering Facility: [facility] Address: [address] [place] [address] Performed By: #### 2 4321-2 ####[facility] LABCLIA [id number] [place] [address] [place] Sodium [Moles/Vol] 128 mmol/L Low 136-144 [facility] Comment on above: Order Comment: Speci men Type: BLOOD SPECIMENOrdering Facility: [facility] Address: [address] [place] [address] Performed By: #### 2 4321-2 ####[facility] LABIA [id number] [place] [address] [place] Urea nitrogen [Mass/Vol] 16 mg/dL Normal 7-21 [facility] Comment on above: Order Comment: Speci men Type: BLOOD SPECIMENOrdering Facility: [facility] Address: [address] [place] [address] Performed By: #### 2 4321-2 ####[facility] LABIA [id number] [place] [address] [place] Creatinine Unsp time (U) [Ma ss/Vol]on 12-03-2023 Creatinine (U) [Mass/Vol] 137.0 mg/dL Normal 20.0-300.0 [facility] Comment on above: Order Comment: Speci men Type: URINE SPECIMENOrdering Facility: [facility] Address: [address] [place] [address] Performed By: #### 3 5674-1, 70502-3, UUNR ####[facility] LABIA [id number] [place] [address] [place] Osmolality SerPlon Osmolality [Osmolality] 267 mosm/kg Low 275-300 [facility] Comment on above: Order Comment: Speci men Type: BLOOD SPECIMENOrdering Facility: [facility] Address: [address] [place] [address] Performed By: #### 2 692-2 ####[facility] [id number] [place] [address] [place] Osmolality Uron 12-03-2023 Osmolality (U) [Osmolality] 427 mosm/kg Normal 50-1200 [facility] Comment on above: Order Comment: Speci men Type: URINE SPECIMENOrdering Facility: [facility] Address: [address] [place] [address] Performed By: #### 2 695-5 ####[facility] [id number] [place] [address] [place] Sodium ?Tm Ur-sCncon 024 Sodium Unsp time (U) [Moles/Vol] 99 mmol/L Normal 14-216 [facility] Comment on above: Order Comment: Speci men Type: URINE SPECIMENOrdering Facility: [facility] Address: [address] [place] [address] Performed By: #### 3 5674-1, 24639-9, UUNR ####[facility] [id number] [place] [address] [place] Sodium SerPl-sCncon 12-03-19 24 Sodium [Moles/Vol] 125 mmol/L Low 136-144 [facility] Comment on above: Order Comment: Speci men Type: BLOOD SPECIMENOrdering Facility: [facility] Address: [address] [place] [address] Performed By: #### 2 951-2 ####[facility] LABIA [id number] [place] [address] [place] THERAPY NTon 12-03-2023 THERAPY NT HNO ID: [id number] Author: SLOAN MOON, PT, DPT Service: Physical Therapy Author Type: Physical Therapist Type: Therapy (PT/OT/Speech/Resp) Filed: 12/03/2023 15:25 Note Text: Physical Therapy Evaluation Summary SERVICE DATE: 12/03/2023 SERVICE TIME: 1428 to 1448 ROOM: [place] [address] PT 6 Clicks Score: 24 DISCHARGE RECOMMENDATIONS Home Recommended Discharge Disposition Comments: with prn A ASSESSMENT Response to Therapy Interventions: Good Participation in Activities Pt mildly unsteady with ambulation but no LOB, reports feeling well and eager to mobilize and d/c home. Anticipate pt will continue to progress well, no further PT needs. PRECAUTIONS Fall Risk CURRENT HOSPITAL COURSE Presented to OSH with hyponatremia. Transferred to [facility] Main NSGY on 12/02/23 after OSH CTH on 11/30 reported pneumocephalus in region of clivus/cavernous sinus/sella without overt skull fracture. CTH on 12/01 showed no pneumocephalus/skull fractures/other intracranial abnormality. Relevant Past Medical History: HTN, HLD, hypothyroidism, asthma, RLE skin infection (+pseudomonas), R hip fx 2 yrs ago s/p surgical repair, and CVA (08/2023) HOME LIVING Patient Lives With: Self/Alone Assistance Available: PRN Entry To Home: No Stairs Number Of Stairs To Bed/Bath: 0 Equipment Owned: Cane, Walker- Wheeled PRIOR FUNCTIONAL LEVEL Within Functional Limits Pt reports indep at baseline SUBJECTIVE It would be nice to sit up THERAPY DIAGNOSIS Unsteadiness on feet TREATMENT INTERVENTIONS Evaluation Skilled Treatment Time (minutes): 20 TRAINING AND EDUCATION PROVIDED Benefits of In-Hospital Mobility, Home Safety, Role of Physical Therapy, Gait Pattern, Reduction of Deviations THERAPEUTIC SKILLS USED Assessment of Tolerance Including Vitals Response to Activity, Activity Dosing, Cuing Verbal, Management of Critical Lines, Tubes and/or Drains FUNCTIONAL STATUS Bed Mobility Supine To Sit: Independent Sit to Supine: Independent Transfers Sit To Stand: Supervision Stand To Sit: Supervision Bed to Chair Stand By Assistance Bed To Chair Transfer Type: Stepping Gait Stand By Assistance Gait Device: None General Deviations/Observations: Danitza decreased, Step length decreased, Flexed trunk posture, Non-functional gait speed Gait Distance (feet): 60 Stairs GOALS Patient will demonstrate understanding of importance of mobility during hospital stay and resolve all functional needs identified. Rehab Potential: Excellent PLAN PT Frequency: Discontinue Therapy Services Reasons Therapy Services Discontinued: Goals met SIGNATURE: Sloan Moon, PT, DPT PATIENT NAME: Jerrell Strickland DATE: December 03, 2023 TIME: 3:25 PM Normal [facility] UREA NITROGEN, RANDOM URINEo n 12-03-2023 UREA NITROGEN,UR,RAN 358 mg/dL Normal 140-1500 [facility] Comment on above: Order Comment: Speci men Type: URINE SPECIMENOrdering Facility: [facility] Address: [address] [place] [address] Performed By: #### 3 5674-1, 54091-4, UUNR ####[facility] LABCLIA [id number] [place] [address] [place] Urate SerPl-mCncon 4 Urate [Mass/Vol] 6.2 mg/dL Normal 2.5-6.6 [facility] Comment on above: Order Comment: Speci men Type: BLOOD SPECIMENOrdering Facility: [facility] Address: [address] [place] [address] Performed By: #### 2 4321-2, 3084-1 ####[facility] LABCLIA [id number] [place] [address] [place] ANTIBODY ID PATIENTon 2023 ANTIBODY IDENTIFIED Anti-M Normal [facility] Comment on above: Order Comment: Speci men Type: BLOOD SPECIMEN Ordering Facility: [facility] Address: [address] [place] [address] Performed By: #### 2 4323-8, 23526-5, 2777-1, 3016-3 #### [facility] LAB CLIA [id number] [address] [place] [address] [place] ANTIBODY SCREENon 12-02-2023 HISTORICAL AB SCR STATUS Positive Abnormal [facility] Comment on above: Order Comment: Speci men Type: BLOOD SPECIMEN Ordering Facility: [facility] Address: [address] [place] [address] Performed By: #### 2 4323-8, 63372-7, 2777-1, 3016-3 #### [facility] CLIA [id number] [address] [place] [address] BLOOD BANK PLACEHOLDER, ANTI BODY INTERPRETATIONon 12-02-2023 BLOOD BANK REPORT, ANTIBODY INTERPRETATION See Pathology Report Normal [facility] Comment on above: Order Comment: Speci men Type: BLOOD SPECIMEN Ordering Facility: [facility] Address: [address] [place] [address] Performed By: #### 2 4323-8, 28569-0, 2777-1, 6-3 #### [facility] CLIA [id number] [address] [place] [address] BLOOD BANK REPORT, ANTIBODY INTERPRETATIONon 12-02-2023 PATHOLOGY INTERPRETATION Normal [facility] Comment on above: Order Comment: Speci men Type: BLOOD SPECIMEN Ordering Facility: [facility] Address: [address] [place] [address] Result Comment: Anti -M, an alloantibody to the M antigen in the MNS blood group system, is identified. No other clinically significant alloantibodies are detected. Anti-M antibodies are often naturally occurring and mostly IgM. They are not typically associated with hemolytic transfusion reactions. In the absence of a planned hypothermic surgical procedure, anti-M is not expected to be of clinical concern. For patients undergoing hypothermic surgical procedures, M antigen negative units are provided intraoperatively. For transfusion: we will provide antiglobulin crossmatch compatible RBCs lacking the M antigen intraoperatively for hypothermic surgical procedures (e.g. cardiac bypass with cold cardioplegia). Approximately 22% of donors will be of this type. For other transfusions, antiglobulin crossmatch compatible M unscreened units will be provided. When possible, please allow a minimum of 4 hours for compatibility testing. Additional time may be required if multiple antigen-negative units are required. Performed By: #### 2 4323-8, 31941-9, 2777-1, 3016-3 #### [facility] CLIA [id number] [address] [place] [address] [place] CBC W Auto Differential pane l (Bld)on 12-02-2023 Basophils (Bld) [#/Vol] 0.09 10*3/uL Normal <0.11 [facility] Comment on above: Order Comment: Speci men Type: BLOOD SPECIMEN Ordering Facility: [facility] Address: [address] [place] [address] Performed By: #### 2 4323-8, 73244-1, 277-1, 6-3 #### [facility] CLIA [id number] [address] [place] [address] [place] Basophils/100 WBC (Bld) 1.1 % Normal [facility] Comment on above: Order Comment: Speci men Type: BLOOD SPECIMEN Ordering Facility: [facility] Address: [address] [place] [address] Performed By: #### 2 4323-8, 40981-3, 277-1, 6-3 #### [facility] CLIA [id number] [address] [place] [address] [place] Differential cell count method Nom (Bld) Auto Normal [facility] Comment on above: Order Comment: Speci men Type: BLOOD SPECIMEN Ordering Facility: [facility] Address: [address] [place] [address] Performed By: #### 2 4323-8, 12239-9, 277-1, 6-3 #### [facility] CLIA [id number] [address] [place] [address] [place] Eosinophils (Bld) [#/Vol] 0.26 10*3/uL Normal <0.46 [facility] Comment on above: Order Comment: Speci men Type: BLOOD SPECIMEN Ordering Facility: [facility] Address: [address] [place] [address] Performed By: #### 2 4323-8, 84402-6, 277-1, 3016-3 #### [facility] CLIA [id number] [address] [place] [address] [place] Eosinophils/100 WBC (Bld) 3.1 % Normal [facility] Comment on above: Order Comment: Speci men Type: BLOOD SPECIMEN Ordering Facility: [facility] Address: [address] [place] [address] Performed By: #### 2 4323-8, 76938-1, 277-, 6-3 #### [facility] CLIA [id number] [address] [place] [address] [place] Erythrocyte distribution width (RBC) [Ratio] 12.8 % Normal 11.5-15.0 [facility] Comment on above: Order Comment: Speci men Type: BLOOD SPECIMEN Ordering Facility: [facility] Address: [address] [place] [address] Performed By: #### 2 4323-8, 01620-0, 277-, 6-3 #### [facility] CLIA [id number] [address] [place] [address] [place] Hematocrit (Bld) [Volume fraction] 34.2 % Low 36.0-46.0 [facility] Comment on above: Order Comment: Speci men Type: BLOOD SPECIMEN Ordering Facility: [facility] Address: [address] [place] [address] Performed By: #### 2 4323-8, 30277-5, 277-, 6-3 #### [facility] CLIA [id number] [address] [place] [address] [place] Hemoglobin (Bld) [Mass/Vol] 11.6 g/dL Normal 11.5-15.5 [facility] Comment on above: Order Comment: Speci men Type: BLOOD SPECIMEN Ordering Facility: [facility] Address: [address] [place], [place] [address] Performed By: #### 2 4323-8, 81919-7, 2776-1, 6-3 #### [facility] CLIA [id number] [address] [place] [address] [place] Immature granulocytes (Bld) [#/Vol] 10*3/uL Normal <0.10 [facility] Comment on above: Order Comment: Speci men Type: BLOOD SPECIMEN Ordering Facility: [facility] Address: [address] [place] [address] Performed By: #### 2 4323-8, 89983-5, 2776-, 6-3 #### [facility] CLIA [id number] [address] [place] [address] [place] Immature granulocytes/100 WBC (Bld) 0.2 % Normal [facility] Comment on above: Order Comment: Speci men Type: BLOOD SPECIMEN Ordering Facility: [facility] Address: [address] [place] [address] Performed By: #### 2 4323-8, 42604-8, 2776-1, 6-3 #### [facility] CLIA [id number] [address] [place] [address] [place] Lymphocytes (Bld) [#/Vol] 1.21 10*3/uL Normal 1.00-4.00 [facility] Comment on above: Order Comment: Speci men Type: BLOOD SPECIMEN Ordering Facility: [facility] Address: [address] [place], [place] [address] Performed By: #### 2 4323-8, 08591-5, 2776-, 6-3 #### [facility] CLIA [id number] [address] [place], [place] [address] [place] Lymphocytes/100 WBC (Bld) 14.3 % Normal [facility] Comment on above: Order Comment: Speci men Type: BLOOD SPECIMEN Ordering Facility: [facility] Address: [address] [place] [address] Performed By: #### 2 4323-8, 75688-7, 7-1, 6-3 #### [facility] CLIA [id number] [address] [place] [address] [place] MCH (RBC) [Entitic mass] 33.3 pg Normal 26.0-34.0 [facility] Comment on above: Order Comment: Speci men Type: BLOOD SPECIMEN Ordering Facility: [facility] Address: [address] [place] [address] Performed By: #### 2 4323-8, 51103-5, 2776-1, 3016-3 #### [facility] CLIA [id number] [address] [place] [address] [place] MCHC (RBC) [Mass/Vol] 33.9 g/dL Normal 30.5-36.0 [facility] Comment on above: Order Comment: Speci men Type: BLOOD SPECIMEN Ordering Facility: [facility] Address: [address] [place] [address] Performed By: #### 2 4323-8, 28161-6, 277-1, 6-3 #### [facility] CLIA [id number] [address] [place] [address] [place] MCV (RBC) [Entitic vol] 98.3 fL Normal 80.0-100.0 [facility] Comment on above: Order Comment: Speci men Type: BLOOD SPECIMEN Ordering Facility: [facility] Address: [address] [place] [address] Performed By: #### 2 4323-8, 43383-3, 277-1, 3016-3 #### [facility] CLIA [id number] [address] [place] [address] [place] Monocytes (Bld) [#/Vol] 0.83 10*3/uL Normal <0.87 [facility] Comment on above: Order Comment: Speci men Type: BLOOD SPECIMEN Ordering Facility: [facility] Address: [address] [place] [address] Performed By: #### 2 4323-8, 49758-0, 2777-1, 3016-3 #### [facility] CLIA [id number] [address] [place] [address] [place] Monocytes/100 WBC (Bld) 9.8 % Normal [facility] Comment on above: Order Comment: Speci men Type: BLOOD SPECIMEN Ordering Facility: [facility] Address: [address] [place] [address] Performed By: #### 2 4323-8, 97607-5, 2777-1, 3016-3 #### [facility] CLIA [id number] [address] [place] [address] [place] Neutrophils (Bld) [#/Vol] 6.08 10*3/uL Normal 1.45-7.50 [facility] Comment on above: Order Comment: Speci men Type: BLOOD SPECIMEN Ordering Facility: [facility] Address: [address] [place] [address] Performed By: #### 2 4323-8, 20352-5, 2777-1, 3016-3 #### [facility] CLIA [id number] [address] [place] [address] [place] Neutrophils/100 WBC (Bld) 71.5 % Normal [facility] Comment on above: Order Comment: Speci men Type: BLOOD SPECIMEN Ordering Facility: [facility] Address: [address] [place] [address] Performed By: #### 2 4323-8, 70889-9, 2777-1, 3016-3 #### [facility] CLIA [id number] [address] [place] [address] [place] Nucleated RBC (Bld) [#/Vol] 10*3/uL Normal <0.01 [facility] Comment on above: Order Comment: Speci men Type: BLOOD SPECIMEN Ordering Facility: [facility] Address: [address] [place] [address] Performed By: #### 2 4323-8, 34449-6, 2777-1, 3016-3 #### [facility] CLIA [id number] [address] [place] [address] [place] Nucleated RBC/100 WBC (Bld) [Ratio] 0.0 /100 WBC Normal [facility] Comment on above: Order Comment: Speci men Type: BLOOD SPECIMEN Ordering Facility: [facility] Address: [address] [place] [address] Performed By: #### 2 4323-8, 08970-4, 2777-1, 3016-3 #### [facility] CLIA [id number] [address] [place] [address] [place] Platelet mean volume (Bld) [Entitic vol] 10.8 fL Normal 9.0-12.7 [facility] Comment on above: Order Comment: Speci men Type: BLOOD SPECIMEN Ordering Facility: [facility] Address: [address] [place] [address] Performed By: #### 2 4323-8, 99838-0, 2777-1, 3016-3 #### [facility] CLIA [id number] [address] [place] [address] [place] Platelets (Bld) [#/Vol] 231 10*3/uL Normal 150-400 [facility] Comment on above: Order Comment: Speci men Type: BLOOD SPECIMEN Ordering Facility: [facility] Address: [address] [place] [address] Performed By: #### 2 4323-8, 62984-1, 2777-1, 3016-3 #### [facility] CLIA [id number] [address] [place] [address] [place] RBC (Bld) [#/Vol] 3.48 10*6/uL Low 3.90-5.[address] [facility] Comment on above: Order Comment: Speci men Type: BLOOD SPECIMEN Ordering Facility: [facility] Address: [address] [place], [place] [address] Performed By: #### 2 4323-8, 13651-0, 2777-1, 3016-3 #### [facility] CLIA [id number] [address] [place] [address] [place] WBC (Bld) [#/Vol] 8.49 10*3/uL Normal 3.70-11.[address] [facility] Comment on above: Order Comment: Speci men Type: BLOOD SPECIMEN Ordering Facility: [facility] Address: [address] [place], [place] [address] Performed By: #### 2 4323-8, 51950-4, 2777-1, 3016-3 #### [facility] CLIA [id number] [address] [place], [place] [address] [place] CONSULTon 12-02-2023 CONSULT HNO ID: [id number] Author: BRISA MICHAEL MD Service: General Internal Medicine Author Type: Physician Type: Consults Filed: 12/03/2023 13:45 Note Text: INTERNAL MEDICINE INITIAL CONSULT SERVICE DATE: 12/02/2023 SERVICE TIME: 7:23 PM REASON FOR CONSULT: Hyponatremia REQUESTING PHYSICIAN: Shayy Alcaraz MD PRIMARY CARE PHYSICIAN: Dionne Magaña MD Subjective HISTORY OF PRESENT ILLNESS: Ms. Strickland is a 78 year old female who was admitted as a transfer from OSH to the neurosurgical service for pneumocephalus. She has a PMH of: - HTN (on amlodipine 10 mg, , Olmesartan 20 mg) - HLD (on pravastatin 80 mg) - Asthma (on Breo Ellipta, montelukast) - Hypothyroidism (on levothyroxine 200 mcg) - RLE skin infection (+pseudomonas) - CVA in 08/2023 - Right hip fracture 2 years ago s/p surgical repair - Depression on Mirtazapine - On daily NSAID Meloxicam Accurate med rec was done this morning 12/03/23 and meds were modified on SEP and admission careset Medicine is consulted for hyponatremia. Patient states she had been feeling weak and lightheaded for about a week. She had blood work done which showed a low sodium level of 123 so she was advised to go to the ED prompting her to present to [facility] ED. Additional pertinent results included BUN 21 and creatinine 0.90. In the ED, she was given 1 L NS bolus. She underwent CT brain which showed pneumocephalus so she was transferred to [facility] and admitted under neurosurgery. Upon arrival to [facility], she underwent repeat labs which showed Na 128, BUN 11, creatinine 0.61. CBC and UA were grossly normal. A repeat CT brain done here showed no pneumocephalus and no other acute intracranial abnormalities. Currently patient feels well. Denies headaches, abdominal pain, nausea, vomiting, diarrhea, leg swelling, dyspnea, cough, chest pain. PAST MEDICAL HISTORY Diagnosis Date Asthma Hyperlipidemia Hypertension Hypothyroidism Syncope PAST SURGICAL HISTORY Procedure Laterality Date APPENDECTOMY HYSTERECTOMY HX partial- done in [place] LAMINECTOMY W/O FFD 07/12 VERT SEG LUMBAR 2010 PAST SURGICAL HISTORY OF left shoulder- rotator cuff repair PAST SURGICAL HISTORY OF 2012 loop recorder implant- has had in since 2012 PAST SURGICAL HISTORY OF Right 11/21/2015 right middle finger ganglion excision and nail plate removal REVISE MEDIAN N/CARPAL TUNNEL SURG bilateral CTR TONSILLECTOMY HX FAMILY HISTORY Problem Relation Age of Onset Heart Mother Heart Father Hypertension Mother Hypertension Father Heart Sister Social History Tobacco Use Smoking status: Never Smokeless tobacco: Never Substance Use Topics Alcohol use: No Drug use: No rOPINIRole (REQUIP) 0.5 mg tablet, Take 0.5-1 mg by mouth daily at bedtime., Disp: , Rfl: amLODIPine (NORVASC) 10 mg tablet, Take 10 mg by mouth daily at bedtime., Disp: , Rfl: VITAMIN B-12 1,000 mcg TbER, Take 1 tablet by mouth every afternoon., Disp: , Rfl: meloxicam (MOBIC) 15 mg tablet, Take 1 tablet by mouth every afternoon., Disp: , Rfl: BREO ELLIPTA 200-25 mcg/dose inhaler, Inhale 1 puff by mouth daily with good oral care, Disp: , Rfl: gabapentin 300 mg Tb24, Take 300 mg by mouth daily at bedtime., Disp: , Rfl: HYDROcodone-Acetaminophen (VICODIN ES) 7.5-300 mg tab, Take 7.5-325 tablets by mouth every 6 hours as needed., Disp: , Rfl: CALCIUM CARB/VIT D3/MINERALS (CALCIUM 600 + MINERALS ORAL), Take by mouth once daily., Disp: , Rfl: MULTIVITAMIN ORAL, Take by mouth once daily., Disp: , Rfl: ascorbic acid (VITAMIN C) 500 mg tablet, Take 500 mg by mouth once daily., Disp: , Rfl: metoprolol succinate ER (TOPROL XL) 50 mg 24 hr tablet, Take 50 mg by mouth once daily., Disp: , Rfl: Levothyroxine 50 mcg cap, Take by mouth once daily., Disp: , Rfl: fluticasone-salmeterol (ADVAIR) 250-50 mcg/dose dsdv, Inhale 1 Puff as instructed twice daily., Disp: , Rfl: omeprazole (PRILOSEC) 20 mg capsule, Take 20 mg by mouth once daily., Disp: , Rfl: pravastatin (PRAVACHOL) 80 mg tablet, Take 80 mg by mouth once daily., Disp: , Rfl: montelukast (SINGULAIR) 10 mg tablet, Take 10 mg by mouth daily at bedtime., Disp: , Rfl: Cetirizine 10 mg cap, Take by mouth daily at bedtime., Disp: , Rfl: hydrochlorothiazide (HYDRODIURIL, ESIDRIX) 25 mg tablet, Take 25 mg by mouth once daily., Disp: , Rfl: Current Facility-Administered Medications Medication Dose Route Frequency pravastatin 80 mg tab(s) (PRAVACHOL) 80 mg ORAL DAILY rOPINIRole 0.5-1 mg tab(s) (REQUIP) 0.5-1 mg ORAL AT BEDTIME metoprolol succinate ER 50 mg tab(s) (TOPROL XL) 50 mg ORAL DAILY amLODIPine 10 mg tab(s) (NORVASC) 10 mg ORAL AT BEDTIME montelukast 10 mg tab(s) (SINGULAIR) 10 mg ORAL AT BEDTIME gabapentin 300 mg cap(s) (NEURONTIN) 300 mg ORAL AT BEDTIME pantoprazole DR 20 mg tab(s) (PROTONIX) 20 mg ORAL DAILY hydroCHLOROthiazide 25 mg tab(s) 25 mg ORAL DAILY levothyroxine 50 mcg tab(s) ( (more content not included)... Normal [facility] CT BRAIN WO IVCONon 05-24-[address] BRAIN WO IVCON * * *Final Report* * * DATE OF EXAM: Dec 02 2023 3:57PM [facility] BRAIN [place] IVCON / PROCEDURE REASON: pneumocephalus * * * * Physician Interpretation * * * * EXAMINATION: CT BRAIN WO IVCON CLINICAL HISTORY: pneumocephalus TECHNIQUE: Serial axial images without IV contrast were obtained from the vertex to the foramen magnum. MQ: [id number] CT Radiation dose: Integrated Dose-Length Product (DLP) for this visit = 777 mGy*cm CT Dose Reduction Employed: No dose reduction techniques were required COMPARISON: None. RESULT: Localizer images: No significant findings. Post-operative change: None. Acute change: No evidence of an acute infarct or other acute parenchymal process. Hemorrhage: No evidence of acute intracranial hemorrhage. ECASS hemorrhagic transformation score: Not Applicable Mass Lesion / Mass Effect: There is no evidence of an intracranial mass or extraaxial fluid collection. No significant mass effect. Chronic change: Scattered patchy foci of low attenuation are present within supratentorial white matter which is a nonspecific finding but likely represents mild microvascular ischemia. Parenchyma: There is mild generalized volume loss. The brain parenchyma is otherwise within normal limits for age. Ventricles: Ventricular enlargement concordant with the degree of parenchymal volume loss. Paranasal sinuses and skull base: The visualized paranasal sinuses are grossly clear. The skull base and imaged soft tissues are unremarkable. IMPRESSION: No acute intracranial infarction, hemorrhage, or pneumocephalus. Ironworker Machine Operator: [email or web address] Transcribe Date/Time: Dec 02 2023 3:58P Dictated by : OCTAVIO SAMSON MD This examination was interpreted and the report reviewed and electronically signed by: LANA HOPKINS MD on Dec 02 2023 4:05PM EST [id number] Normal [facility] Comprehensive metabolic 2000 panelon 12-02-2023 Albumin [Mass/Vol] 4.1 g/dL Normal 3.9-4.9 [facility] Comment on above: Order Comment: Speci men Type: BLOOD SPECIMEN Ordering Facility: [facility] Address: [address] [place] [address] Performed By: #### 2 4323-8, 80874-4, 2777-1, 3016-3 #### [facility] CLIA [id number] [address] [place] [address] [place] ALP [Catalytic activity/Vol] 104 U/L Normal 34-123 [facility] Comment on above: Order Comment: Speci men Type: BLOOD SPECIMEN Ordering Facility: [facility] Address: [address] [place] [address] Performed By: #### 2 4323-8, 63007-4, 2777-1, 3016-3 #### [facility] CLIA [id number] [address] [place] [address] [place] ALT [Catalytic activity/Vol] 24 U/L Normal 7-38 [facility] Comment on above: Order Comment: Speci men Type: BLOOD SPECIMEN Ordering Facility: [facility] Address: [address] [place] [address] Performed By: #### 2 4323-8, 25198-4, 2777-1, 3016-3 #### [facility] CLIA [id number] [address] [place], [place] [address] [place] Anion gap [Moles/Vol] 11 mmol/L Normal 9-18 [facility] Comment on above: Order Comment: Speci men Type: BLOOD SPECIMEN Ordering Facility: [facility] Address: [address] [place] [address] Performed By: #### 2 4323-8, 01447-1, 2777-1, 3016-3 #### [facility] CLIA [id number] [address] [place], [place] [address] [place] AST [Catalytic activity/Vol] 28 U/L Normal 13-35 [facility] Comment on above: Order Comment: Speci men Type: BLOOD SPECIMEN Ordering Facility: [facility] Address: [address] [place] [address] Result Comment: Resu lts may be falsely increased due to interference from hemolysis. Suggest reorder as clinically indicated. Performed By: #### 2 4323-8, 54822-7, 2776-1, 6-3 #### [facility] CLIA [id number] [address] [place] [address] [place] Bilirubin [Mass/Vol] 0.4 mg/dL Normal 0.2-1.3 [facility] Comment on above: Order Comment: Speci men Type: BLOOD SPECIMEN Ordering Facility: [facility] Address: [address] [place] [address] Performed By: #### 2 4323-8, , 2776-, 3016-3 #### [facility] CLIA [id number] [address] [place] [address] [place] Calcium [Mass/Vol] 9.2 mg/dL Normal 8.5-10.2 [facility] Comment on above: Order Comment: Speci men Type: BLOOD SPECIMEN Ordering Facility: [facility] Address: [address] [place] [address] Performed By: #### 2 4323-8, , 2776-, 3016-3 #### [facility] CLIA [id number] [address] [place] [address] [place] Chloride [Moles/Vol] 95 mmol/L Low 97-105 [facility] Comment on above: Order Comment: Speci men Type: BLOOD SPECIMEN Ordering Facility: [facility] Address: [address] [place] [address] Performed By: #### 2 4323-8, , 2776-, 3016-3 #### [facility] CLIA [id number] [address] [place] [address] [place] CO2 [Moles/Vol] 22 mmol/L Normal 22-30 [facility] Comment on above: Order Comment: Speci men Type: BLOOD SPECIMEN Ordering Facility: [facility] Address: [address] [place] [address] Performed By: #### 2 4323-8, 47619-2, 2776-1, 6-3 #### [facility] CLIA [id number] [address] [place] [address] [place] Creatinine [Mass/Vol] 0.61 mg/dL Normal 0.58-0.96 [facility] Comment on above: Order Comment: Rajiv francis Type: BLOOD SPECIMEN Ordering Facility: [facility] Address: [address] [place] [address] Performed By: #### 2 4323-8, , 2776-, 3015-3 #### [facility] CLIA [id number] [address] [place] [address] [place] Creatinine and Glomerular filtration rate.predicted panel (S/P/Bld) 91 mL/min/1.73m??? Normal >=60 [facility] Comment on above: Order Comment: Rajiv francis Type: BLOOD SPECIMEN Ordering Facility: [facility] Address: [address] [place] [address] Result Comment: Audra mated Glomerular Filtration Rate (eGFR) is calculated using the 2020 CKD-EPI creatinine equation. This equation utilizes serum creatinine, sex, and age as parameters. The creatinine assay has traceable calibration to isotope dilution-mass spectrometry. Refer to KDIGO guidelines for clinical interpretation. In patients with unstable renal function, e.g. those with acute kidney injury, the eGFR may not accurately reflect actual GFR. Performed By: #### 2 4323-8, 46529-7, 2776-, 3015-3 #### [facility] CLIA [id number] [address] [place] [address] [place] Glucose [Mass/Vol] 121 mg/dL High 74-99 [facility] Comment on above: Order Comment: Rajiv francis Type: BLOOD SPECIMEN Ordering Facility: [facility] Address: [address] [place] [address] Result Comment: The [place] Diabetes Association (ADA) provides guidance for cutoff values for fasting glucose and random glucose. The ADA defines fasting as no caloric intake for at least 8 hours. Fasting plasma glucose results between 100 to 125 mg/dL indicate increased risk for diabetes (prediabetes). Fasting plasma glucose results greater than or equal to 126 mg/dL meet the criteria for diagnosis of diabetes. In the absence of unequivocal hyperglycemia, results should be confirmed by repeat testing. In a patient with classic symptoms of hyperglycemia or hyperglycemic crisis, random plasma glucose results greater than or equal to 200 mg/dL meet the criteria for diagnosis of diabetes. Reference: Standards of Medical Care in Diabetes 2016, [place] Diabetes Association. Diabetes Care. 2016.39(Suppl 1). Performed By: #### 2 4323-8, 08608-4, 2777-1, 3016-3 #### [facility] CLIA [id number] [address] [place] [address] [place] Potassium [Moles/Vol] 4.5 mmol/L Normal 3.7-5.1 [facility] Comment on above: Order Comment: Specera francis Type: BLOOD SPECIMEN [facility] [facility] Address: [address] [place] [address] Performed By: #### 2 4323-8, 96840-4, 2777-1, 6-3 #### [facility] CLIA [id number] [address] [place] [address] [place] Protein [Mass/Vol] 6.9 g/dL Normal 6.3-8.0 [facility] Comment on above: Order Comment: Rajiv francis Type: BLOOD SPECIMEN Ordering Facility: [facility] Address: [address] [place] [address] Performed By: #### 2 4323-8, 79322-7, 2777-1, 3016-3 #### [facility] CLIA [id number] [address] [place] [address] [place] Sodium [Moles/Vol] 128 mmol/L Low 136-144 [facility] Comment on above: Order Comment: Rehanai men Type: BLOOD SPECIMEN Ordering Facility: [facility] Address: [address] [place] [address] Performed By: #### 2 4323-8, 22264-7, 2777-1, 3016-3 #### [facility] CLIA [id number] [address] [place] [address] [place] Urea nitrogen [Mass/Vol] 11 mg/dL Normal 7-21 [facility] Comment on above: Order Comment: Speci men Type: BLOOD SPECIMEN Ordering Facility: [facility] Address: [address] [place] [address] Performed By: #### 2 4323-8, 42177-8, 2777-1, 3016-3 #### [facility] CLIA [id number] [address] [place] [address] [place] Cortis SerPl-mCncon 12-02-19 Cortisol [Mass/Vol] 5.9 ug/dL Normal 4.8-19.[address] [facility] Comment on above: Order Comment: Speci men Type: BLOOD SPECIMENOrdering Facility: [facility] Address: [address] [place] [address] Result Comment: Prov ided reference range is from 6-10 AM sample collection time. Cortisol Reference Range: 6-10 AM = 4.8-19.5 ug/dL, 4-8 PM = 2.5-11.9 ug/dL Performed By: #### 2 143-6, 80353-9 ####[facility] [id number] [place] [address] [place] ECG COMPLETEon 12-02-2023 ECG COMPLETE Ventricular Rate : 5 7 BPM Atrial Rate : 57 BPM P-R Interval : 190 ms QRS Duration : 94 ms Q-T Interval : 424 ms QTC Calculation(Bazett) : 412 ms Calculated P [place] : 61 degrees Calculated R [place] : -23 degrees Calculated T [place] : 17 degrees SINUS BRADYCARDIA WITH OCCASIONAL PREMATURE VENTRICULAR COMPLEXES MINIMAL VOLTAGE CRITERIA FOR LVH, MAY BE NORMAL VARIANT BORDERLINE ECG Confirmed by KALA CORONADO MD ([id number]) on 12/07/2023 3:00:23 PM NAME : JERRELL STRICKLAND PID : [id number] : 1945 Gender : Female Race : ORD : [id number] Procedure Date : Dec 02 2023 13:11:28 Edit Date : Dec 07 2023 15:00:26 Diagnosis: SINUS BRADYCARDIA WITH OCCASIONAL PREMATURE VENTRICULAR COMPLEXES MINIMAL VOLTAGE CRITERIA FOR LVH, MAY BE NORMAL VARIANT BORDERLINE ECG Confirmed by KALA CORONADO MD ([id number]) on 12/07/2023 3:00:23 PM Test Reason : Pneumocephalus Location : 123 : H63 H063-03 Overread By : KALA CORONADO MD Edited By : KALA CORONADO MD Referred By : CHARLI JACK Acquired by : BRAD LOCKETT [facility] HISTORY PHYSICALon HISTORY PHYSICAL HNO ID: [id number] Author: SHAYY ALCARAZ MD Service: Neurosurgery Author Type: Resident Type: H&P Filed: 12/03/2023 16:07 Note Text: -- Attestation signed by Shayy Alcaraz MD at 12/03/2023 4:07 PM [facility] STAFF PHYSICIAN NOTE OF PERSONAL INVOLVEMENT IN CARE I have reviewed the HANDP obtained and documented by the resident and I personally participated in the marlow components. I have discussed the case and management of the patient's care. SIGNATURE: Shayy Alcaraz MD DATE of SERVICE: December 03, 2023 -- NEUROSURGERY CONSULT HISTORY AND PHYSICAL EXAMINATION PLEASE DO NOT REMOVE FROM THE CHART OR MODIFY PRINTED COPY Patient Name: Jerrell Strickland CHIEF COMPLAINT: Pneumocephalus HPI: 78 F w/ PMH HTN, HLD, hypothyroidism, asthma, RLE skin infection (+pseudomonas), R hip fx 2 yrs ago s/p surgical repair, and CVA (08/2023) who presented to [facility] ED on 12/01/23 per recommendation of PCP for ~1 week, was found to have Na of 123. Transferred to [facility] Main NS on 12/02/23 after OSH CTH on 11/30 reported pneumocephalus in region of clivus/cavernous sinus/sella without overt skull fracture. CTH on 12/01 showed no pneumocephalus/skull fractures/other intracranial abnormality Reports sinonasal drainage due to allergies, but does not report any consistently clear drainage from nose/salty taste in back of throat Denies recent episodes of fever/chills, GONZALES, abdominal pain, nausea/emesis, blurry vision, seizures, traumas/falls 12/01 PM labs: Na 128 Anti-platelets/anti-coagul ants: None PAST MEDICAL HISTORY: PAST MEDICAL HISTORY Diagnosis Date Asthma Hyperlipidemia Hypertension Hypothyroidism Syncope PAST SURGICAL HISTORY: PAST SURGICAL HISTORY Procedure Laterality Date APPENDECTOMY HYSTERECTOMY HX partial- done in [place] LAMINECTOMY W/O FFD 07/12 VERT SEG LUMBAR 2010 PAST SURGICAL HISTORY OF left shoulder- rotator cuff repair PAST SURGICAL HISTORY OF 2013 loop recorder implant- has had in since 2012 PAST SURGICAL HISTORY OF Right 11/21/2015 right middle finger ganglion excision and nail plate removal REVISE MEDIAN N/CARPAL TUNNEL SURG bilateral CTR TONSILLECTOMY HX FAMILY HISTORY: FAMILY HISTORY Problem Relation Age of Onset Heart Mother Heart Father Hypertension Mother Hypertension Father Heart Sister SOCIAL HISTORY: Social History Tobacco Use Smoking status: Never Smokeless tobacco: Never Substance Use Topics Alcohol use: No Drug use: No MEDICATIONS: rOPINIRole (REQUIP) 0.5 mg tabletTake 0.5-1 mg by mouth daily at bedtime.Disp: Rfl: amLODIPine (NORVASC) 10 mg tabletTake 10 mg by mouth daily at bedtime.Disp: Rfl: VITAMIN B-12 1,000 mcg TbERTake 1 tablet by mouth every afternoon.Disp: Rfl: meloxicam (MOBIC) 15 mg tabletTake 1 tablet by mouth every afternoon.Disp: Rfl: BREO ELLIPTA 200-25 mcg/dose inhalerInhale 1 puff by mouth daily with good oral careDisp: Rfl: gabapentin 300 mg Cr12Fkcs 300 mg by mouth daily at bedtime.Disp: Rfl: HYDROcodone-Acetaminophen (VICODIN ES) 7.5-300 mg tabTake 7.5-325 tablets by mouth every 6 hours as needed.Disp: Rfl: CALCIUM CARB/VIT D3/MINERALS (CALCIUM 600 + MINERALS ORAL)Take by mouth once daily.Disp: Rfl: MULTIVITAMIN ORALTake by mouth once daily.Disp: Rfl: ascorbic acid (VITAMIN C) 500 mg tabletTake 500 mg by mouth once daily.Disp: Rfl: metoprolol succinate ER (TOPROL XL) 50 mg 24 hr tabletTake 50 mg by mouth once daily.Disp: Rfl: Levothyroxine 50 mcg capTake by mouth once daily.Disp: Rfl: fluticasone-salmeterol (ADVAIR) 250-50 mcg/dose dsdvInhale 1 Puff as instructed twice daily.Disp: Rfl: omeprazole (PRILOSEC) 20 mg capsuleTake 20 mg by mouth once daily.Disp: Rfl: pravastatin (PRAVACHOL) 80 mg tabletTake 80 mg by mouth once daily.Disp: Rfl: montelukast (SINGULAIR) 10 mg tabletTake 10 mg by mouth daily at bedtime.Disp: Rfl: Cetirizine 10 mg capTake by mouth daily at bedtime.Disp: Rfl: hydrochlorothiazide (HYDRODIURIL, ESIDRIX) 25 mg tabletTake 25 mg by mouth once daily.Disp: Rfl: Current Facility-Administered Medications Medication Dose Route Frequency pravastatin 80 mg tab(s) (PRAVACHOL) 80 mg ORAL DAILY rOPINIRole 0.5-1 mg tab(s) (REQUIP) 0.5-1 mg ORAL AT BEDTIME metoprolol succinate ER 50 mg tab(s) (TOPROL XL) 50 mg ORAL DAILY amLODIPine 10 mg tab(s) (NORVASC) 10 mg ORAL AT BEDTIME montelukast 10 mg tab(s) (SINGULAIR) 10 mg ORAL AT BEDTIME gabapentin 300 mg cap(s) (NEURONTIN) 300 mg ORAL AT BEDTIME pantoprazole DR 20 mg tab(s) (PROTONIX) 20 mg ORAL DAILY hydroCHLOROthiazide 25 mg tab(s) 25 mg ORAL DAILY levothyroxine 50 mcg tab(s) (SYNTHROID) 50 mcg ORAL DAILY ondansetron (PF) 4 mg injection (ZOFRAN) 4 mg INTRAVENOUS q 6 H PRN prochlorperazine 10 mg injection (COMPAZINE) 10 mg INTRAV (more content not included)... Normal [facility] Magnesium SerPl-mCncon 12-01 Magnesium [Mass/Vol] 1.7 mg/dL Normal 1.7-2.3 [facility] Comment on above: Order Comment: Rajiv francis Type: BLOOD SPECIMEN Ordering Facility: [facility] Address: [address] [place] [address] Performed By: #### 2 4323-8, 48637-6, 2777-1, 3016-3 #### [facility] CLIA [id number] [address] [place], [place] [address] [place] [address] [place] PT panel Coag (PPP)on 2023 INR Coag (PPP) [Relative time] 1.1 {INR} Normal 0.9-1.3 [facility] Comment on above: Order Comment: Rajiv francis Type: BLOOD SPECIMENOrdering Facility: [facility] Address: [address] [place] [address] Result Comment: Lin min K Antagonist (VKA) Therapeutic Range: INR 2 to 3 (Target INR of 2.5) Note: For patients treated with VKA drugs, such as warfarin, the [place] [employer] 2012 Guideline recommends a therapeutic INR range of 2 to 3 (target INR of 2.5). This recommendation includes high-risk patients with antiphospholipid syndrome with previous arterial or venous thromboembolism, current-generation mechanical or bioprosthetic aortic heart valve replacement. Note: Patients with mechanical aortic valve replacement and additional risk factors for thromboembolic events (atrial fibrillation, previous thromboembolism, LV dysfunction, hypercoagulable conditions) or an older generation mechanical AVR (i.e., ball in-Cage) or any mechanical MVR should have a INR therapeutic range of 2.5 to 3.5 (target INR of 3). Kendell GH, et al. Chest 2012, 141:7S-47S Judah ISAAC et al. [facility] 2017, 70: 252-289 Performed By: #### 3 4528-0, 26139-9 ####[facility] [id number] [place] [address] [place] PT Coag (PPP) [Time] 11.4 s Normal 9.7-13.0 [facility] Comment on above: Order Comment: Speci men Type: BLOOD SPECIMENOrdering Facility: [facility] Address: [address] [place] [address] Performed By: #### 3 4528-0, 69808-0 ####[facility] [id number] [place] [address] [place] Phosphate SerPl-mCncon 12-01 Phosphate [Mass/Vol] 3.0 mg/dL Normal 2.7-4.8 [facility] Comment on above: Order Comment: Speci men Type: BLOOD SPECIMEN Ordering Facility: [facility] Address: [address] [place] [address] Performed By: #### 2 4323-8, 24721-1, 2777-1, 3016-3 #### [facility] CLIA [id number] [address] [place] [address] [place] STAPHYLOCOCCUS AUREUS AND MR SA SCREEN, PCR, NASALon 12-02-2023 S. aureus and MRSA panel PRIYANKA+probe (Nose) Not detected Normal Not Detected [facility] Comment on above: Order Comment: Speci men Type: SWAB Ordering Facility: [facility] Address: [address] [place] [address] Performed By: #### S APCR #### [facility] CLIA [id number] [address] [place] [address] [place] TSH SerPl-aCncon 12-02-2023 TSH Qn 1.520 m[IU]/L Normal 0.270-4.20 0 [facility] Comment on above: Order Comment: Speci men Type: BLOOD SPECIMEN Ordering Facility: [facility] Address: [address] [place] [address] Performed By: #### 2 4323-8, 39017-1, 2777-1, 3016-3 #### [facility] CLIA [id number] [address] [place], [place] [address] [place] TYPE + SCREENon 12-02-2023 ABO O Normal [facility] Comment on above: Order Comment: Speci men Type: BLOOD SPECIMEN Ordering Facility: [facility] Address: [address] [place] [address] Performed By: #### 2 4323-8, 07415-4, 2776-1, 6-3 #### [facility] CLIA [id number] [address] [place], [place] [address] [place] HISTORICAL AB SCR STATUS Negative Normal [facility] Comment on above: Order Comment: Speci men Type: BLOOD SPECIMEN Ordering Facility: [facility] Address: [address] [place] [address] Performed By: #### 2 4323-8, 99772-7, 2776-1, 3015-3 #### [facility] CLIA [id number] [address] [place], [place] [address] [place] Rh Nom (Bld) Positive Normal [facility] Comment on above: Order Comment: Speci men Type: BLOOD SPECIMEN Ordering Facility: [facility] Address: [address] [place] [address] Performed By: #### 2 4323-8, 38769-0, 277-1, 3015-3 #### [facility] CLIA [id number] [address] [place], [place] [address] [place] TYPE AND SCREEN EXPIRATION 12/05/2023 23:59 Normal [facility] Comment on above: Order Comment: Speci men Type: BLOOD SPECIMEN Ordering Facility: [facility] Address: [address] [place] [address] Performed By: #### 2 4323-8, 74484-7, 277-1, 6-3 #### [facility] CLIA [id number] [address] [place], [place] [address] [place] URINALYSIS, REFLEX MICROSCOP ICon 12-02-2023 Bilirubin Ql (U) Negative Normal Negative [facility] Comment on above: Order Comment: Speci men Type: URINE SPECIMENOrdering Facility: [facility] Address: [address] [place] [address] Performed By: #### L [id number] ####[facility] [id number] [place] [address] [place] Clarity (Unsp spec) Clear Normal Clear [facility] Comment on above: Order Comment: Speci men Type: URINE SPECIMENOrdering Facility: [facility] Address: [address] [place] [address] Performed By: #### L [id number] ####[facility] [id number] [place] [address] [place] Color (U) Yellow Normal Yellow [facility] Comment on above: Order Comment: Speci men Type: URINE SPECIMENOrdering Facility: [facility] Address: [address] [place] [address] Performed By: #### L [id number] ####[facility] [id number] [place] [address] [place] Glucose Test strip (U) [Mass/Vol] Negative Normal Negative [facility] Comment on above: Order Comment: Speci men Type: URINE SPECIMENOrdering Facility: [facility] Address: [address] [place] [address] Performed By: #### L [id number] ####[facility]IA [id number] [place] [address] [place] Hemoglobin Ql (U) Negative Normal Negative [facility] Comment on above: Order Comment: Speci men Type: URINE SPECIMENOrdering Facility: [facility] Address: [address] [place] [address] Performed By: #### L [id number] ####[facility] [id number] [place] [address] [place] Ketones Ql (U) Negative Normal Negative [facility] Comment on above: Order Comment: Speci men Type: URINE SPECIMENOrdering Facility: [facility] Address: [address] [place] [address] Performed By: #### L [id number] ####[facility] [id number] [place] [address] [place] Leukocyte esterase Test strip Ql (U) Negative Normal Negative [facility] Comment on above: Order Comment: Speci men Type: URINE SPECIMENOrdering Facility: [facility] Address: [address] [place] [address] Performed By: #### L [id number] ####[facility] [id number] [place] [address] [place] Nitrite Ql (U) Negative Normal Negative [facility] Comment on above: Order Comment: Speci men Type: URINE SPECIMENOrdering Facility: [facility] Address: [address] [place] [address] Performed By: #### L [id number] ####[facility] [id number] [place] [address] [place] pH (U) 8.0 [pH] Normal <8.5 [facility] Comment on above: Order Comment: Speci men Type: URINE SPECIMENOrdering Facility: [facility] Address: [address] [place] [address] Performed By: #### L [id number] ####[facility] [id number] [place] [address] [place] Protein (U) [Mass/Vol] Negative Normal Negative [facility] Comment on above: Order Comment: Speci men Type: URINE SPECIMENOrdering Facility: [facility] Address: [address] [place] [address] Performed By: #### L [id number] ####[facility] [id number] [place] [address] [place] Specific gravity (U) [Rel density] 1.011 Normal 1.005-1.03 0 [facility] Comment on above: Order Comment: Speci men Type: URINE SPECIMENOrdering Facility: [facility] Address: [address] [place] [address] Performed By: #### L [id number] ####[facility] [id number] [place] [address] [place] Urobilinogen Ql (U) 0.2 EU/dL Normal 0.2-1.0 EU/dL [facility] Comment on above: Order Comment: Speci men Type: URINE SPECIMENOrdering Facility: [facility] Address: [address] [place] [address] Performed By: #### L [id number] ####[facility] [id number] [place] [address] [place] aPTT PPPon 12-02-2023 aPTT Coag (PPP) [Time] 29.1 s Normal 23.0-32.4 Cl [facility] Comment on above: Order Comment: Speci men Type: BLOOD SPECIMENOrdering Facility: [facility] Address: [address] [place] [address] Performed By: #### 3 4528-0, 66965-0 ####[facility] [id number] [place] [address] [place] CNTHERAPYon 11-18-2023 CNTHERAPY OT/PT/Speech Visit (OTNOCA) -- BEICHLER,JERRELL D ([id number]) 1945 F Date Time Provider Department 11/18/23 3:30 PM HERMELINDA BAKER MAGDY Date Time Provider Department Center 11/18/2023 3:30 PM [id number], [facility] N Reason for Visit: OT Discharge [750] Occupational Therapy [504] Primary Visit Diagnosis:Syncope and collapse [R55] Other Visit Diagnoses:Cognitive deficits [R41.89] Driving safety issue [Z91.89] Allergies As of Date: 11/18/2023 Noted Allergy Reaction ACETAMINOPHEN-CODEINE 10/13/2015 10 - Anaphylaxis SEASONAL ALLERGIES 10/13/2015 14 - Other: See Comments Date Reviewed: 07/27/2023 Reviewed by: Christine Mitchell MA - Fully Assessed Prescriptions as of 03/28/2024 - levothyroxine (SYNTHROID) 200 mcg tablet Take 1 tablet by mouth every afternoon. - meloxicam (MOBIC) 7.5 mg tablet Take 7.5 mg by mouth two times a day. - triamcinolone acetonide (NASACORT AQ) 55 mcg nasal inhaler Use 2 Sprays in the nose once daily. - rosuvastatin (CRESTOR) 5 mg tablet Take 5 mg by mouth once daily. - olmesartan (BENICAR) 20 mg tablet Take 20 mg by mouth once daily. - Mirtazapine (REMERON) 7.5 mg tablet Take 7.5 mg by mouth. - FEROSUL 325 mg (65 mg iron) tablet Take 325 mg by mouth once daily. - famotidine (PEPCID) 40 mg tablet Take 40 mg by mouth once daily. - ammonium lactate (LAC-HYDRIN) 12 % lotion Apply to affected area. - rOPINIRole (REQUIP) 0.5 mg tablet Take 0.5-1 mg by mouth daily at bedtime. - amLODIPine (NORVASC) 10 mg tablet Take 10 mg by mouth daily at bedtime. - VITAMIN B-12 1,000 mcg TbER Take 1 tablet by mouth every afternoon. - BREO ELLIPTA 200-25 mcg/dose inhaler Inhale 1 puff by mouth daily with good oral care - gabapentin 300 mg Tb24 Take 300 mg by mouth daily at bedtime. - MULTIVITAMIN ORAL Take by mouth once daily. - ascorbic acid (VITAMIN C) 500 mg tablet Take 500 mg by mouth once daily. - Cetirizine 10 mg cap Take by mouth daily at bedtime. Letter Text Normal [facility] - Drug toxicology Ordered By: Harshad Camacho on 11-15-2023 Amphetamines Ql (U) Negative <1000 ng/mL [facility] Benzodiazepines Ql (U) Negative < 200 ng/mL [facility] Cannabinoids Screen Ql (U) Negative < 50 ng/mL [facility] Cocaine Ql (U) Negative < 300 ng/mL [facility] Opiates Ql (U) Positive < 300 ng/mL [facility] No Panel InformationOrdered By: Harshad Camacho on 11-15-2023 MDMA (Ecstasy) Screen Negative < 500 ng/mL [facility] Urine Barbiturates Screen Negative < 200 ng/mL [facility] Urine Drug Screen Comment [facility] Comment on above: CONFIRMATORY TESTING FOR ALL POSITIVE URINE DRUG SCREENRESULTS WILL ONLY BE SENT OUT UPON PHYSICIAN ORDER. VISTA Urine Drug Screen methods provide only preliminaryanalytical test results. A more specific alternate chemicalmethod must be used in order to obtain a confirmedanalytical result. Gas chromatography/mass spectrometery(GC/MS) is the preferred confirmatory method. Clinicalconsideration and professional judgement should be appliedto any drug of abuse test result, particularly whenpreliminary positive results are used. URINE TCA TESTING MUST BE ORDERED SEPARATELY. USE TESTMNEMONIC: SD[facility] Urine Methadone Screen Negative < 300 ng/mL [facility] Urine phencyclidine (PCP) de tectionOrdered By: Harshad Camacho on 11-15-2023 Phencyclidine Ql (U) Negative < 25 ng/mL [facility] CNPNon 11-10-2023 CNPN Telephone (OTNOCA) -- JERRELL STRICKLAND ([id number]) 1945 F Date Time Provider Department 11/10/23 HERMELINDA BAKER Calvin CURRAN During your visit today, we recorded the following information about you: Cesar Hermelinda Calvin, OT/L 11/10/2023 7:52 AM Signed Daughter indicated that she has been concerned several times while riding with her mom including having to frequently tell her mom to speed up when she has pulled into moving traffic as does not go fast enough. She also said that she would not allow her grandchildren to ride with her mom due to concerns about their safety as passengers in addition to feeling that her mom just seems to zone out at times. This therapist shared the concerns and indicated that despite Gabrielle's own health concerns, her mom might not be able to continue driving following the behind the wheel assessment or in the future and that she should begin to consider options for her own transportation needs if that is the case. She also verbalized that while she does have a drivers license, she is scheduled to have hand surgery later this month and will not be able to return to driving for several weeks after that and does not have alternative transportation options easily available although her mom does. Gabrielle verbalized being grateful for the information and agreed to think about options while this therapist indicated she would touch base with her following the behind the wheel assessment scheduled for 11/18/23. Allergies As of Date: 11/10/2023 Noted Allergy Reaction ACETAMINOPHEN-CODEINE 10/13/2015 10 - Anaphylaxis SEASONAL ALLERGIES 10/13/2015 14 - Other: See Comments Date Reviewed: 07/27/2023 Reviewed by: Christine Mitchell MA - Fully Assessed Reason for Visit: Patient Update [1234] Cmt: This therapist was contacted by Jerrell Strickland's doctor's office requesting that the daughter be contacted with update. It was communicated that the daughter has been calling their office blaming them for ordering this assessment while they did say they felt it was necessary. This therapist did in turn call the daughter to indicate BMV extension requested and granted until 12/13/23 in addition to ongoing concerns about Jerrell's fair to poor clinical test results. Daughter verbalized concerns also. Prescriptions as of 11/10/2023 - rOPINIRole (REQUIP) 0.5 mg tablet Take 0.5-1 mg by mouth daily at bedtime. - amLODIPine (NORVASC) 10 mg tablet Take 10 mg by mouth daily at bedtime. - VITAMIN B-12 1,000 mcg TbER Take 1 tablet by mouth every afternoon. - meloxicam (MOBIC) 15 mg tablet Take 1 tablet by mouth every afternoon. - BREO ELLIPTA 200-25 mcg/dose inhaler Inhale 1 puff by mouth daily with good oral care - fluconazole (DIFLUCAN) 100 mg tablet Take 100 mg by mouth once daily. - gabapentin 300 mg Tb24 Take 300 mg by mouth daily at bedtime. - HYDROcodone-Acetaminophen (VICODIN ES) 7.5-300 mg tab Take 7.5-325 tablets by mouth every 6 hours as needed. - CALCIUM CARB/VIT D3/MINERALS (CALCIUM 600 + MINERALS ORAL) Take by mouth once daily. -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 Fully Assessed Reason for Visit: Results [95] Cmt: Cx= pseudomonas Prescriptions as of 07/19/2023 - doxycycline monohydrate 100 mg tablet Take 1 tablet by mouth two times a day for 5 days. - mupirocin (BACTROBAN) 2 % ointment Apply to affected area three times a day for 7 days. - rOPINIRole (REQUIP) 0.5 mg tablet Take 0.5-1 mg by mouth daily at bedtime. - amLODIPine (NORVASC) 10 mg tablet Take 10 mg by mouth daily at bedtime. - VITAMIN B-12 1,000 mcg TbER Take 1 tablet by mouth every afternoon. - meloxicam (MOBIC) 15 mg tablet Take 1 tablet by mouth every afternoon. - BREO ELLIPTA 200-25 mcg/dose inhaler Inhale 1 puff by mouth daily with good oral care - fluconazole (DIFLUCAN) 100 mg tablet Take 100 mg by mouth once daily. - gabapentin 300 mg Tb24 Take 300 mg by mouth daily at bedtime. - HYDROcodone-Acetaminophen (VICODIN ES) 7.5-300 mg tab Take 7.5-325 tablets by mouth every 6 hours as needed. - CALCIUM CARB/VIT D3/MINERALS (CALCIUM 600 + MINERALS ORAL) Take by mouth once daily. - MULTIVITAMIN ORAL Take by mouth once daily. - ascorbic acid (VITAMIN C) 500 mg tablet Take 500 mg by mouth once daily. - metoprolol succinate ER (TOPROL XL) 50 mg 24 hr tablet Take 50 mg by mouth once daily. - Levothyroxine 50 mcg cap Take by mouth once daily. - fluticasone-salmeterol (ADVAIR) 250-50 mcg/dose dsdv Inhale 1 Puff as instructed twice daily. - omeprazole (PRILOSEC) 20 mg capsule Take 20 mg by mouth once daily. - pravastatin (PRAVACHOL) 80 mg tablet Take 80 mg by mouth once daily. - montelukast (SINGULAIR) 10 mg tablet Take 10 mg by mouth daily at bedtime. - Cetirizine 10 mg cap Take by mouth daily at bedtime. - hydrochlorothiazide (HYDRODIURIL, ESIDRIX) 25 mg tablet Take 25 mg by mouth once daily. Problem List As Of Date 07/18/2023 Noted Resolved Digital mucous cyst [M67.449] 10/13/2015 Hypertension [I10] 11/20/2015 Asthma [J45.909] 11/20/2015 Hypothyroidism [E03.9] 11/20/2015 Syncope [R55] 11/20/2015 Hyperlipidemia [E78.5] 11/20/2015 Encounter Status:Closed by SARAH BRADFORD on 07/19/23 Normal [facility] Bacteria Wnd Culton 07-15-19 24 Bacteria identified Cx Nom (Wound) ORGANISM ID: 1 Rare Pseudomonas aeruginosa ORGANISM ID: 2 One colony Coagulase negative staphylococcus No further workup GRAM STAIN: No organisms seen No Polymorphonuclear Leukocytes ORGANISM ID: 1 (PSEUDOMONAS AERUGINOSA) ANTIBIOTIC INTERPRETATION RACH STATUS REFERENCE RANGE Cefepime S 2 F Susceptible <=8 , Intermediate >8 , Resistant >16 Meropenem S 1 F Susceptible <=2 , Intermediate >2 , Resistant >4 Piperacillin/Tazobac S 8 F Gentamicin S <=2 F Susceptible <=4 , Intermediate >4 , Resistant >8 Tobramycin S <=2 F Susceptible <=4 , Intermediate >4 , Resistant >8 Ciprofloxacin S <=0.25 F Susceptible <=0.5 , Intermediate >.5 , Resistant >1 Abnormal [facility] Comment on above: Performed By: #### 2 4323-8, 96868-4, 2777-1, 3016-3 #### [facility] CLIA [id number] [address] [place] 07-15-2023 CNOV Office Visit (UCWSTR ) -- JERRELL STRICKLAND ([id number]) 1945 F Date Time Provider Department 07/15/23 9:15 AM FRANCOISE VALENTINO [facility] During your visit today, we recorded the following information about you: Temperature Pulse Respiration Blood pressure 97.1 degrees 87/minute 18/minute 135/72 Weight 71.7 kg Francoise Valentino PA 07/15/2023 9:26 AM Signed This note was created using Neighborland[employer]. Subjective Jerrell Strickland is a 78 year [...] Date APPENDECTOMY HYSTERECTOMY HX partial- done in [place] LAMINECTOMY W/O FFD 07/12 VERT SEG LUMBAR [...] WOUND CULTURE WITH GRAM STAIN -Advised if (more content not included)... Normal [facility] Laboratory - Chemistry and C hemistry - challengeOrdered By: Dayday Hairston on 07-13-2023 T4 [Mass/Vol] 14.8 ug/dL 4.8-13.9 [facility] No Panel InformationOrdered By: Dayday Hairston on 07-13-2023 Reverse Triiodothyronine (T3) 31.7 ng/dL 9.2-24.1 [facility] Comment on above: Performed at: [address] [id number] Director: Jensen Santiago MD, Phone: [phone] Thyroid Stimulating Hormone (TSH) 0.55 uIU/mL 0.358-3.74 [facility] Absolute lymphocyte countOrd ered By: Dayday Hairston on 06-24-2023 Lymphocytes Auto (Unsp spec) [#/Vol] 2.17 10*3/uL 0.83-4.51 [facility] Basophil percentageOrdered B y: Dayday Hairston on 06-24-2023 Basophils/100 WBC (Bld) 1.8 % 0-1 [facility] Bilirubin [Mass/Vol] 0.50 mg/dL 0.20-1.00 [facility] Comment on above: For patients on eltr ombopag therapy, use of Dimension [place] TBIL is not recommended. Chloride [Moles/Vol] 104 mmol/L 98-107 [facility] Eosinophils/100 WBC (Bld) 5.9 % 0-5 [facility] Glucose [Mass/Vol] 100 mg/dL 74-106 [facility] Comment on above: Fasting Glucose resu lt from 100 to 125 mg/dL suggests IMPAIRED HOMEOSTASIS per A.D.A. criteria. Neutrophils (Bld) [#/Vol] 5.5 10*3/uL 2.0-7.7 [facility] Neutrophils/100 WBC (Bld) 56.3 % 47-70 [facility] Potassium [Moles/Vol] 4.2 mmol/L 3.5-5.1 [facility] Protein [Mass/Vol] 7.2 g/dL 6.4-8.2 [facility] Sodium [Moles/Vol] 138 mmol/L 136-145 [facility] WBC (Bld) [#/Vol] 9.8 10*3/uL 4.4-11.0 [facility] Blood erythrocytes count (nu mber/volume)Ordered By: Dayday Hairston on 06-24-2023 RBC (Bld) [#/Vol] 3.79 10*6/uL 4.2-5.4 [facility] Blood hemoglobin measurement (mass/volume)Ordered By: Dayday Hairston on 06-24-2023 Hemoglobin (Bld) [Mass/Vol] 12.7 g/dL 12.0-15.0 [facility] Blood lymphocytes/100 leukoc ytesOrdered By: Dayday Hairston on 06-24-2023 Lymphocytes/100 WBC (Bld) 22.1 % 19-41 [facility] Blood monocytes/100 leukocyt esOrdered By: Dayday Hairston on 06-24-2023 Monocytes/100 WBC (Bld) 13.3 % 0-10 [facility] Blood platelet mean volumeOr dered By: Dayday Hairston on 06-24-2023 Platelet mean volume (Bld) [Entitic vol] 11.6 fL 6.2-12.0 [facility] Determination of erythrocyte mean corpuscular volume (MCV)Ordered By: Dayday Hairston on 06-24-2023 MCV (RBC) [Entitic vol] 104.5 fL 81-99 [facility] Erythrocyte sedimentation ra teOrdered By: Dayday Hairston on 06-24-2023 ESR (Bld) [Velocity] 13 mm/h 0-30 [facility] Hematocrit Auto (Bld) [Volum e fraction]Ordered By: Dayday Hairston on 06-24-2023 Hematocrit (Bld) [Volume fraction] 39.6 % 37-47 [facility] Laboratory - Chemistry and C hemistry - challengeOrdered By: Dayday Hairston on 06-24-2023 ALP [Catalytic activity/Vol] 80 U/L 45-117 [facility] ALT [Catalytic activity/Vol] 23 U/L 13-56 [facility] CO2 [Moles/Vol] 30.0 mmol/L 21.0-32.0 [facility] Globulin (S) [Mass/Vol] 3.9 g/dL 2.2-4.2 [facility] Urea nitrogen/Creatinine [Mass ratio] 21.8 mg/mg 10-20 [facility] Laboratory - Hematology and Cell countsOrdered By: Dayday Hairston on 06-24-2023 Erythrocyte distribution width (RBC) [Entitic vol] 49.1 fL 35.1-43.9 [facility] Erythrocyte distribution width (RBC) [Ratio] 12.6 % 11.6-14.6 [facility] Immature granulocytes/100 WBC (Bld) 0.600 % 0.0-0.9 [facility] Comment on above: IG% - Immature Granu locytes (promyelocytes, myelocytes and metamyelocytes) > 1% indicates that a LEFT SHIFT is Present. MCH (RBC) [Entitic mass] 33.5 pg 27.0-32.0 [facility] Nucleated RBC/100 WBC (Bld) [Ratio] 0 % 0-5 [facility] MCHC Auto (RBC) [Mass/Vol]Or dered By: Dayday Hairston on 06-24-2023 MCHC (RBC) [Mass/Vol] 32.1 g/dL 32-36 [facility] No Panel InformationOrdered By: Dayday Hairston on 06-24-2023 Estimated GFR (MDRD) Amer 76 mL/min >60 [facility] Comment on above: GFR Calc Estimated GFR (MDRD) Non-Af Amer 63 mL/min >60 [facility] Comment on above: Non- GFR Calc Thyroid Stimulating Hormone (TSH) 0.33 uIU/mL 0.358-3.74 [facility] Platelets bldOrdered By: Alex Hairston on 06-24-2023 Platelets (Bld) [#/Vol] 331 10*3/uL 150-450 [facility] Serum or plasma albumin jd urement (mass/volume)Ordered By: Dayday Hairston on 06-24-2023 Albumin [Mass/Vol] 3.3 g/dL 3.2-5.0 [facility] Serum or plasma albumin/glob ulin mass ratioOrdered By: Dayday Hairston on 06-24-2023 Albumin/Globulin [Mass ratio] 0.8 {ratio} 0.9-2.4 [facility] Serum or plasma calcium jd urement (mass/volume)Ordered By: Dayday Hairston on 06-24-2023 Calcium [Mass/Vol] 9.7 mg/dL 8.5-10.1 [facility] Serum or plasma creatinine m easurement (mass/volume)Ordered By: Dayday Hairston on 06-24-2023 Creatinine [Mass/Vol] 0.92 mg/dL 0.55-1.02 [facility] Comment on above: The validity of the calculated GFR & GFRAA in patients over 70 years has not been determined. Clinical correlation is essential. Serum or plasma urea nitroge n measurement (mass/volume)Ordered By: Dayday Hairston on 06-24-2023 Urea nitrogen [Mass/Vol] 20 mg/dL 7-18 [facility] Thin prep Papanicolaou smear with manual screeningOrdered By: Dayday Hairston on 06-24-2023 Thin prep Papanicolaou smear with manual screening 20 U/L 15-37 [facility] Thin prep Papanicolaou smear with manual screening 4 5-15 [facility] Whole blood hemoglobin A1c/t otal hemoglobin ratio (mass fraction)Ordered By: Dayday Hairston on 06-24-2023 HbA1c (Bld) [Mass fraction] 5.7 % 3.8-5.6 [facility] Comment on above: Normal < 5.7 % Predi abetic 5.7 - 6.4 % Diabetic >or= 6.5 % Please note range changes. Nura 06-15-2023 [facility] Telephone (UCWSTR) -- JERRELL STRICKLAND ([id number]) 1945 F Date Time Provider Department 06/15/23 [facility] During your visit today, we recorded the following information about you: Christine Mitchell MA 06/15/2023 7:41 AM Signed ----- Message from Giovana Patterson APRN.SATISH sent at 06/15/2023 7:26 AM EST ----- Urine culture did not show clear evidence of infection, however it appears sample may have been contaminated with skin bacteria during collection. If not improving, recommend follow up with PCP. SATISH Mcgee Roxann 06/15/2023 7:59 AM Signed Left message for patient to call back and ask to talk to a triage nurse. Mindy Peterson LPN 06/15/2023 2:01 PM Signed Left a message for pt to call the office and ask to speak to a nurse. Sarah Chowdhury LPN, LPN 06/16/2023 8:09 PM Signed Still unable to reach patient so left message for patient with results and recommendations.Sarah Bradford LPN Allergies As of Date: 06/15/2023 Noted Allergy Reaction ACETAMINOPHEN-CODEINE 10/13/2015 10 - Anaphylaxis SEASONAL ALLERGIES 10/13/2015 14 - Other: See Comments Date Reviewed: 06/13/2023 Reviewed by: Ai Moura APRN.CNP - Fully Assessed Reason for Visit: Results [95] Prescriptions as of 06/16/2023 - rOPINIRole (REQUIP) 0.5 mg tablet Take 0.5-1 mg by mouth daily at bedtime. - amLODIPine (NORVASC) 10 mg tablet Take 10 mg by mouth daily at bedtime. - VITAMIN B-12 1,000 mcg TbER Take 1 tablet by mouth every afternoon. - meloxicam (MOBIC) 15 mg tablet Take 1 tablet by mouth every afternoon. - BREO ELLIPTA 200-25 mcg/dose inhaler Inhale 1 puff by mouth daily with good oral care - fluconazole (DIFLUCAN) 100 mg tablet Take 100 mg by mouth once daily. - gabapentin 300 mg Tb24 Take 300 mg by mouth daily at bedtime. - HYDROcodone-Acetaminophen (VICODIN ES) 7.5-300 mg tab Take 7.5-325 tablets by mouth every 6 hours as needed. - CALCIUM CARB/VIT D3/MINERALS (CALCIUM 600 + MINERALS ORAL) Take by mouth once daily. - MULTIVITAMIN ORAL Take by mouth once daily. - ascorbic acid (VITAMIN C) 500 mg tablet Take 500 mg by mouth once daily. - metoprolol succinate ER (TOPROL XL) 50 mg 24 hr tablet Take 50 mg by mouth once daily. - Levothyroxine 50 mcg cap Take by mouth once daily. - fluticasone-salmeterol (ADVAIR) 250-50 mcg/dose dsdv Inhale 1 Puff as instructed twice daily. - omeprazole (PRILOSEC) 20 mg capsule Take 20 mg by mouth once daily. - pravastatin (PRAVACHOL) 80 mg tablet Take 80 mg by mouth once daily. - montelukast (SINGULAIR) 10 mg tablet Take 10 mg by mouth daily at bedtime. - Cetirizine 10 mg cap Take by mouth daily at bedtime. - hydrochlorothiazide (HYDRODIURIL, ESIDRIX) 25 mg tablet Take 25 mg by mouth once daily. Problem List As Of Date 06/15/2023 Noted Resolved Digital mucous cyst [M67.449] 10/13/2015 Hypertension [I10] 11/20/2015 Asthma [J45.909] 11/20/2015 Hypothyroidism [E03.9] 11/20/2015 Syncope [R55] 11/20/2015 Hyperlipidemia [E78.5] 11/20/2015 Encounter Status:Closed by SARAH BRADFORD LPN on 06/16/23 [facility] Nura 06-14-2023 [facility] Telephone ([facility]WSTR) -- JERRELL STRICKLAND ([id number]) 1945 F Date Time Provider Department 06/14/23 [facility] During your visit today, we recorded the following information about you: Suzanne Galeana LPN 06/14/2023 7:31 AM Signed ----- Message from Giovana Patterson APRN.FALAFEL CART COOK sent at 06/14/2023 7:14 AM EST ----- Please advise patient the COVID and flu test was negative. Suzanne Galeana LPN 06/14/2023 7:33 AM Signed Left message for patient to return call. GORDON Franks Beth LPN 06/14/2023 10:26 AM Signed Patient returned call and went over results, notes from express care provider with understanding. Allergies As of Date: 06/14/2023 Noted Allergy Reaction ACETAMINOPHEN-CODEINE 10/13/2015 10 - Anaphylaxis SEASONAL ALLERGIES 10/13/2015 14 - Other: See Comments Date Reviewed: 06/13/2023 Reviewed by: Ai Moura APRN.FALAFEL CART COOK - Fully Assessed Reason for Visit: Results [95] Prescriptions as of 06/14/2023 - rOPINIRole (REQUIP) 0.5 mg tablet Take 0.5-1 mg by mouth daily at bedtime. - amLODIPine (NORVASC) 10 mg tablet Take 10 mg by mouth daily at bedtime. - VITAMIN B-12 1,000 mcg TbER Take 1 tablet by mouth every afternoon. - meloxicam (MOBIC) 15 mg tablet Take 1 tablet by mouth every afternoon. - BREO ELLIPTA 200-25 mcg/dose inhaler Inhale 1 puff by mouth daily with good oral care - fluconazole (DIFLUCAN) 100 mg tablet Take 100 mg by mouth once daily. - gabapentin 300 mg Tb24 Take 300 mg by mouth daily at bedtime. - HYDROcodone-Acetaminophen (VICODIN ES) 7.5-300 mg tab Take 7.5-325 tablets by mouth every 6 hours as needed. - CALCIUM CARB/VIT D3/MINERALS (CALCIUM 600 + MINERALS ORAL) Take by mouth once daily. - MULTIVITAMIN ORAL Take by mouth once daily. - ascorbic acid (VITAMIN C) 500 mg tablet Take 500 mg by mouth once daily. - metoprolol succinate ER (TOPROL XL) 50 mg 24 hr tablet Take 50 mg by mouth once daily. - Levothyroxine 50 mcg cap Take by mouth once daily. - fluticasone-salmeterol (ADVAIR) 250-50 mcg/dose dsdv Inhale 1 Puff as instructed twice daily. - omeprazole (PRILOSEC) 20 mg capsule Take 20 mg by mouth once daily. - pravastatin (PRAVACHOL) 80 mg tablet Take 80 mg by mouth once daily. - montelukast (SINGULAIR) 10 mg tablet Take 10 mg by mouth daily at bedtime. - Cetirizine 10 mg cap Take by mouth daily at bedtime. - hydrochlorothiazide (HYDRODIURIL, ESIDRIX) 25 mg tablet Take 25 mg by mouth once daily. Problem List As Of Date 06/14/2023 Noted Resolved Digital mucous cyst [M67.449] 10/13/2015 Hypertension [I10] 11/20/2015 Asthma [J45.909] 11/20/2015 Hypothyroidism [E03.9] 11/20/2015 Syncope [R55] 11/20/2015 Hyperlipidemia [E78.5] 11/20/2015 Encounter Status:Closed by MAYLIN MARTINEZ LPN on 06/14/23 Normal [facility] Bacteria Ur Culton 3 Bacteria identified Cx Nom (U) ORGANISM ID: 1 50,000-<100,000 CFU/ml Mixed microbiota No further workup. Mixed microbiota can be due to???urine???contamination with skin bacteria at time of collection or presence of a long-term urinary catheter. If a new culture is needed, please consider re-education of the patient on proper midstream collection technique or straight catheterization for???urine???collection. Normal [facility] Comment on above: Performed By: #### 2 4323-8, 82818-4, 2777-1, 3016-3 #### [facility] CLIA [id number] [address] [place] 06-13-2023 CNOV Office Visit (UCWSTR ) -- JERRELL STRICKLAND ([id number]) 1945 F Date Time Provider Department 06/13/23 4:30 PM AI MOURA [facility] During your visit today, we recorded the following information about you: Temperature Pulse Respiration Blood pressure 99.3 degrees 89/minute 16/minute 137/67 Weight 74 kg Ai Moura APRN.FALAFEL CART COOK 06/13/2023 5:23 PM Signed Subjective HPI HPI Jerrell Strickland is a [...] Date APPENDECTOMY HYSTERECTOMY HX partial- done in [place] LAMINECTOMY W/O FFD 07/12 VERT SEG LUMBAR [...] no abdominal tenderness. Musculoskeletal: Cervical back: Normal ra (more content not included)... Normal [facility] FLUABV + SARS-CoV-2 Pnl Resp PRIYANKA+prbon 06-13-2023 Influenza virus A and B RNA and SARS-CoV-2 (COVID-19) N gene panel PRIYANKA+probe (Resp) COVID 19 RESULT: Not detected The method used is RT-PCR or an equivalent NAAT method. Reference Range (the expected result in uninfected individuals): Not detected INFLUENZA A PCR: Not detected INFLUENZA B PCR: Not detected Normal [facility] Comment on above: Performed By: #### 2 4323-8, 10413-5, 2777-1, 3016-3 #### [facility] CLIA [id number] [address] [place] [address] [place] STREP A MOLECULAR (POC)on Procedural Control Valid [facility] Strep A (POCT) Negative Negative [facility] UA DIP, URINE (POC)on 2022 BILIRUBIN UA (POCT) Negative Negative [facility] CLARITY UA (POCT) Clear [facility] COLOR UA (POCT) Yellow [facility] GLUCOSE UA (POCT) Negative Negative mg/dL [facility] Hemoglobin Ql (U) Negative Negative [facility] KETONE UA (POCT) Negative Negative mg/dL [facility] LEUKOCYTES UA (POCT) Trace Abnormal Negative [facility] NITRITE UA (POCT) Negative Negative [facility] PH UA (POCT) 5.5 4.5 - 8.0 [facility] Protein Ql (U) Negative Negative mg/dL [facility] SPECIFIC GRAVITY UA (POCT) 1.025 1.005 - 1.030 [facility] UROBILINOGEN UA (POCT) 0.2 E.U./dL Rayne l E.U./dL [facility] Absolute lymphocyte countOrd ered By: Tanner Hahn on 06-06-2023 Lymphocytes Auto (Unsp spec) [#/Vol] 1.82 10*3/uL 0.83-4.51 [facility] Basophil percentageOrdered B y: Tanner Hahn on 06-06-2023 Basophils/100 WBC (Bld) 0.8 % 0-1 [facility] Eosinophils/100 WBC (Bld) 3.1 % 0-5 [facility] Neutrophils (Bld) [#/Vol] 8.3 10*3/uL 2.0-7.7 [facility] Neutrophils/100 WBC (Bld) 69.6 % 47-70 [facility] WBC (Bld) [#/Vol] 11.9 10*3/uL 4.4-11.0 [facility] Blood erythrocytes count (nu mber/volume)Ordered By: Tanner Hahn on 06-06-2023 RBC (Bld) [#/Vol] 3.70 10*6/uL 4.2-5.4 [facility] Blood hemoglobin measurement (mass/volume)Ordered By: Tanner Hahn on 06-06-2023 Hemoglobin (Bld) [Mass/Vol] 12.8 g/dL 12.0-15.0 [facility] Blood lymphocytes/100 leukoc ytesOrdered By: Tanner Hahn on 06-06-2023 Lymphocytes/100 WBC (Bld) 15.3 % 19-41 [facility] Blood monocytes/100 leukocyt esOrdered By: Tanner Hahn on 06-06-2023 Monocytes/100 WBC (Bld) 10.3 % 0-10 [facility] Blood platelet mean volumeOr dered By: Tanner Hahn on 06-06-2023 Platelet mean volume (Bld) [Entitic vol] 11.0 fL 6.2-12.0 [facility] Determination of erythrocyte mean corpuscular volume (MCV)Ordered By: Tanner Hahn on 06-06-2023 MCV (RBC) [Entitic vol] 105.9 fL 81-99 [facility] Erythrocyte sedimentation ra teOrdered By: aTnner Hahn on 06-06-2023 ESR (Bld) [Velocity] 17 mm/h 0-30 [facility] Hematocrit Auto (Bld) [Volum e fraction]Ordered By: Tanner Hahn on 06-06-2023 Hematocrit (Bld) [Volume fraction] 39.2 % 37-47 [facility] - Hematology and Cell countsOrdered By: Tanner Hahn on 06-06-2023 Erythrocyte distribution width (RBC) [Entitic vol] 51.8 fL 35.1-43.9 [facility] Erythrocyte distribution width (RBC) [Ratio] 13.2 % 11.6-14.6 [facility] Immature granulocytes/100 WBC (Bld) 0.900 % 0.0-0.9 [facility] Comment on above: IG% - Immature Granu locytes (promyelocytes, myelocytes and metamyelocytes) > 1% indicates that a LEFT SHIFT is Present. MCH (RBC) [Entitic mass] 34.6 pg 27.0-32.0 [facility] Nucleated RBC/100 WBC (Bld) [Ratio] 0 % 0-5 [facility] MCHC Auto (RBC) [Mass/Vol]Or dered By: Tanner Hahn on 06-06-2023 MCHC (RBC) [Mass/Vol] 32.7 g/dL 32-36 [facility] Platelets bldOrdered By: Tanner Hahn on 06-06-2023 Platelets (Bld) [#/Vol] 315 10*3/uL 150-450 [facility] Serum or plasma C reactive p rotein measurement (mass/volume)Ordered By: Tanner Hahn on 06-06-2023 CRP [Mass/Vol] 5.01 mg/L 0.0-3.0 [facility] Comment on above: C-Reactive Protein ( CRP) provides useful information for thediagnosis, therapy and monitoring of inflammatory processesand associated diseases. For the evaluation of Relative Riskfor Cardiovascular Disease, a High Sensitivity CRP (HSCRP)should be ordered. Laboratory - Drug toxicology Ordered By: Harshad Camacho on 05-26-2023 Amphetamines Ql (U) Negative <1000 ng/mL [facility] Benzodiazepines Ql (U) Negative < 200 ng/mL [facility] Cannabinoids Screen Ql (U) Negative < 50 ng/mL [facility] Cocaine Ql (U) Negative < 300 ng/mL [facility] Opiates Ql (U) Positive < 300 ng/mL [facility] No Panel InformationOrdered By: Harshad Camacho on 05-26-2023 MDMA (Ecstasy) Screen Negative < 500 ng/mL [facility] Miscellaneous Test See comment [facility] Comment on above: [id number] 6+OXYCODONE-B UND (ng/mL) DRUG RESULT SCREEN CUTOFF____ Amphetamines,Urine Negative ng/mL 1000 Amphetamine test includes Amphetamine and Methamphetamine.Barbiturates Negative ng/mL 200Benzodiazepines Negative ng/mL 200Cannabinoid Negative ng/mL 20Cocaine (Metab) Negative ng/mL 300Opiates Negative ng/mL 300 Opiates test includes Codeine, Morphine, Hydromorphone, Hydrocodone. Oxycodone/Oxymorphone,Urine Negative ng/mL 300 Test includes Oxycodone and Oxymorphone. TESTING PERFORMED AT [facility]. ORIGINAL REPORT ON FILE IN LAB CONTAINS ADDITIONAL TEST SITE INFORMATION. Urine Barbiturates Screen Negative < 200 ng/mL [facility] Urine Drug Screen Comment [facility] Comment on above: CONFIRMATORY TESTING FOR ALL POSITIVE URINE DRUG SCREENRESULTS WILL ONLY BE SENT OUT UPON PHYSICIAN ORDER. VISTA Urine Drug Screen methods provide only preliminaryanalytical test results. A more specific alternate chemicalmethod must be used in order to obtain a confirmedanalytical result. Gas chromatography/mass spectrometery(GC/MS) is the preferred confirmatory method. Clinicalconsideration and professional judgement should be appliedto any drug of abuse test result, particularly whenpreliminary positive results are used. URINE TCA TESTING MUST BE ORDERED SEPARATELY. USE TESTMNEMONIC: [facility] Urine Methadone Screen Negative < 300 ng/mL [facility] Urine phencyclidine (PCP) de tectionOrdered By: Harshad Camacho on 05-26-2023 Phencyclidine Ql (U) Negative < 25 ng/mL [facility] Absolute lymphocyte countOrd ered By: Dionne Magaña on 04-28-2023 Lymphocytes Auto (Unsp spec) [#/Vol] 2.03 10*3/uL 0.83-4.51 [facility] Basophil percentageOrdered B y: Dionne Magaña on 04-28-2023 Basophils/100 WBC (Bld) 1.0 % 0-1 [facility] Chloride [Moles/Vol] 107 mmol/L 98-107 [facility] Eosinophils/100 WBC (Bld) 1.8 % 0-5 [facility] Glucose [Mass/Vol] 155 mg/dL 74-106 [facility] Comment on above: Fasting Glucose resu lt greater than or equal to 126 mg/dL suggests DIABETES MELLITUS per A.D.A. criteria. Neutrophils (Bld) [#/Vol] 8.6 10*3/uL 2.0-7.7 [facility] Neutrophils/100 WBC (Bld) 71.7 % 47-70 [facility] Potassium [Moles/Vol] 4.6 mmol/L 3.5-5.1 [facility] Sodium [Moles/Vol] 139 mmol/L 136-145 [facility] WBC (Bld) [#/Vol] 12.0 10*3/uL 4.4-11.0 [facility] Blood erythrocytes count (nu mber/volume)Ordered By: Dionne Magaña on 04-28-2023 RBC (Bld) [#/Vol] 3.42 10*6/uL 4.2-5.4 [facility] Blood hemoglobin measurement (mass/volume)Ordered By: Dionne Magaña on 04-28-2023 Hemoglobin (Bld) [Mass/Vol] 11.4 g/dL 12.0-15.0 [facility] Blood lymphocytes/100 leukoc ytesOrdered By: Dionne Magaña on 04-28-2023 Lymphocytes/100 WBC (Bld) 16.9 % 19-41 [facility] Blood monocytes/100 leukocyt esOrdered By: Dionne Magaña on 04-28-2023 Monocytes/100 WBC (Bld) 7.9 % 0-10 [facility] Blood platelet mean volumeOr dered By: Dionne Magaña on 04-28-2023 Platelet mean volume (Bld) [Entitic vol] 11.1 fL 6.2-12.0 [facility] Determination of erythrocyte mean corpuscular volume (MCV)Ordered By: Dionne Magaña on 04-28-2023 MCV (RBC) [Entitic vol] 108.5 fL 81-99 [facility] Hematocrit Auto (Bld) [Volum e fraction]Ordered By: Dionne Magaña on 04-28-2023 Hematocrit (Bld) [Volume fraction] 37.1 % 37-47 [facility] Laboratory - Chemistry and C hemistry - challengeOrdered By: Dionne Magaña on 04-28-2023 CO2 [Moles/Vol] 26.0 mmol/L 21.0-32.0 [facility] Cobalamin (Vitamin B12) [Mass/Vol] 362 pg/mL 211-911 [facility] Urea nitrogen/Creatinine [Mass ratio] 21.4 mg/mg 10-20 [facility] - Hematology and Cell countsOrdered By: Dionne Magaña on 04-28-2023 Erythrocyte distribution width (RBC) [Entitic vol] 55.8 fL 35.1-43.9 [facility] Erythrocyte distribution width (RBC) [Ratio] 14.0 % 11.6-14.6 [facility] Immature granulocytes/100 WBC (Bld) 0.700 % 0.0-0.9 [facility] Comment on above: IG% - Immature Granu locytes (promyelocytes, myelocytes and metamyelocytes) > 1% indicates that a LEFT SHIFT is Present. MCH (RBC) [Entitic mass] 33.3 pg 27.0-32.0 [facility] Nucleated RBC/100 WBC (Bld) [Ratio] 0 % 0-5 [facility] MCHC Auto (RBC) [Mass/Vol]Or dered By: Dionne Magaña on 04-28-2023 MCHC (RBC) [Mass/Vol] 30.7 g/dL 32-36 [facility] No Panel InformationOrdered By: Dionne Magaña on 04-28-2023 Estimated GFR (MDRD) Amer 66 mL/min >60 [facility] Comment on above: GFR Calc Estimated GFR (MDRD) Non-Af Amer 55 mL/min >60 [facility] Comment on above: Non- GFR Calc Thyroid Stimulating Hormone (TSH) 2.27 uIU/mL 0.358-3.74 [facility] Platelets bldOrdered By: Miguelangel Magaña on 04-28-2023 Platelets (Bld) [#/Vol] 278 10*3/uL 150-450 [facility] Serum or plasma calcium jd urement (mass/volume)Ordered By: Dionne Magaña on 04-28-2023 Calcium [Mass/Vol] 9.2 mg/dL 8.5-10.1 [facility] Serum or plasma creatinine m easurement (mass/volume)Ordered By: Dionne Magaña on 04-28-2023 Creatinine [Mass/Vol] 1.03 mg/dL 0.55-1.02 [facility] Comment on above: The validity of the calculated GFR & GFRAA in patients over 70 years has not been determined. Clinical correlation is essential. Serum or plasma urea nitroge n measurement (mass/volume)Ordered By: Dionne Magaña on 04-28-2023 Urea nitrogen [Mass/Vol] 22 mg/dL 7-18 [facility] Thin prep Papanicolaou smear with manual screeningOrdered By: Dionne Magaña on 04-28-2023 Thin prep Papanicolaou smear with manual screening 6 5-15 [facility] Laboratory - Hematology and Cell countson 04-13-2023 HbA1c (Bld) [Mass fraction] 6.7 % 4.2-6.3 [facility] No Panel InformationOrdered By: Dionne Magaña on 04-13-2023 Thyroid Stimulating Hormone (TSH) 0.74 uIU/mL 0.358-3.74 [facility] CNOVon 02-15-2023 CNOV Office Visit ([facility] ) -- MARCO AJERRELL Magdi ([id number]) 1945 F Date Time Provider Department 02/15/23 1:00 PM MALI RAMIREZ [facility] During your visit today, we recorded the following information about you: Temperature Pulse Respiration Blood pressure 98 degrees 87/minute 16/minute 128/64 Weight 74.6 kg Mali Ramirez APRN.FALAFEL CART COOK 02/15/2023 1:54 PM Signed This note was created using Neighborland[employer]. Subjective Jerrell Magdi Marco A is a 77 year old female. 77 [...] left forearm, which she was NEVER seen for---just still seems to be the same Denies fever or chills Denies drainage Denies swelling. Denies reduced or limited ROM. Denies following up with her PCP The history is provided by the patient and a relative. No assistant speech language pathologist was used. Animal Bite The incident occurred [...] Date APPENDECTOMY HYSTERECTOMY HX partial- done in [place] LAMINECTOMY W/O FFD 07/12 VERT SEG LUMBAR [...] Cardiovascular: Negative for chest pain. Gastrointestinal: Negative f (more content not included)... [facility] Office Visit ([facility] ) -- JERRELL STRICKLAND ([id number]) 1945 F Date Time Provider Department 02/07/23 4:00 PM J LUIS SANCHES [facility] During your visit today, we recorded the following information about you: Temperature Pulse Respiration Blood pressure 97.4 degrees 89/minute 18/minute 129/78 Weight 72.2 kg J Luis Sanches APRN.CNP 02/07/2023 4:30 PM Signed Subjective Patient came in with complaints of [...] history is provided by the patient. No assistant speech language pathologist was used. Pain (foot) Review of Systems [...] Date APPENDECTOMY HYSTERECTOMY HX partial- done in [place] LAMINECTOMY W/O FFD 07/12 VERT SEG LUMBAR [...] noted. 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 Patient was educated if signs and symptoms do not seem to be alleviated with the steroids that (more content not included)... Normal [facility] XR FOOT 3V AP/LAT/OBL LTon 0 02-07-2023 XR FOOT 3V AP/LAT/OBL LT * * *Final Report* * * DATE [...] of the toes. Vascular calcifications are noted. 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: PSCB Transcribe Date/Time: Feb 07 2023 4:09P Dictated by : MINERVA PATRICK MD This examination was interpreted and the report reviewed and electronically signed by: MINERVA PATRICK MD on Feb 07 2023 4:11PM EST [id number] Normal [facility] XR FOOT GENERAL 3V AP/LAT/OB L LEFTon 02-07-2023 [facility] XR Foot - left AP and Latera l and obliqueon 02-07-2023 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: PSC Transcribe Date/Time: Feb 07 2023 4:09P Dictated by : MINERVA PATRICK MD This examination was interpreted and the report reviewed and electronically signed by: MINERVA PATRICK MD on Feb 07 2023 4:11PM EST DIVISION OF RADIOLOGY * * *Final Report* * * DATE [...] of the toes. Vascular calcifications are noted. DIVISION OF RADIOLOGY Provider, Orestes Ruano - 02/07/2023 * * *Final Report* * * DATE [...] noted. IMPRESSION 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: [facility] Transcribe Date/Time: Feb 07 2023 4:09P Dictated by : MINERVA PATRICK MD This examination was interpreted and the report reviewed and electronically signed by: MINERVA PATRICK MD on Feb 07 2023 4:11PM [facility] Radiology Study observation (narrative) Shashank fairbanks [facility] XR Foot - left AP and Latera l and obliqueOrdered By: Ccf Provider on 02-07-2023 [facility] Nura [facility] -- JERRELL STRICKLAND ([id number]) 1945 F Date Time Provider Department 02/03/23 MANUEL WISE [facility] During your visit today, we recorded the following information about you: Manuel Wise PA-C 02/03/2023 11:05 AM Signed I attempted to call patient to follow-up [...] patient and let her know the above. Allergies As of Date: 02/03/2023 Noted Allergy Reaction ACETAMINOPHEN-CODEINE 10/13/2015 10 - Anaphylaxis SEASONAL ALLERGIES 10/13/2015 14 - Other: See Comments Date Reviewed: 01/31/2023 Reviewed by: Zofia Yepez MA - Fully Assessed Reason for Visit: Results [95] Order(s):doxycycline (VIBRA-TABS) 100 mg tabletTake 1 tablet by mouth twice daily for 7 days.Disp: 14 tabletRfl: 0 Prescriptions as of 02/03/2023 - doxycycline (VIBRA-TABS) 100 mg tablet Take 1 tablet by mouth twice daily for 7 days. - predniSONE (DELTASONE) 20 mg tablet TAKE 2 (TWO) TABLETS BY MOUTH EVERY DAY for FOUR days then 1 (ONE) TABLET EVERY DAY for 2 (TWO) days - rOPINIRole (REQUIP) 0.5 mg tablet Take 0.5-1 mg by mouth daily at bedtime. - amLODIPine (NORVASC) 10 mg tablet Take 10 mg by mouth daily at bedtime. - VITAMIN B-12 1,000 mcg TbER Take 1 tablet by mouth every afternoon. - meloxicam (MOBIC) 15 mg tablet Take 1 tablet by mouth every afternoon. - BREO ELLIPTA 200-25 mcg/dose inhaler Inhale 1 puff by mouth daily with good oral care - amoxicillin-clavulanic acid (AUGMENTIN) 875-125 mg per tablet Take 1 tablet by mouth twice daily for 5 days. - fluconazole (DIFLUCAN) 100 mg tablet Take 100 mg by mouth once daily. - gabapentin 300 mg Tb24 Take 300 mg by mouth daily at bedtime. - HYDROcodone-Acetaminophen (VICODIN ES) 7.5-300 mg tab Take 7.5-325 tablets by mouth every 6 hours as needed. - CALCIUM CARB/VIT D3/MINERALS (CALCIUM 600 + MINERALS ORAL) Take by mouth once daily. - MULTIVITAMIN ORAL Take by mouth once daily. - ascorbic acid (VITAMIN C) 500 mg tablet Take 500 mg by mouth once daily. - metoprolol succinate ER (TOPROL XL) 50 mg 24 hr tablet Take 50 mg by mouth once daily. - Levothyroxine 50 mcg cap Take by mouth once daily. - fluticasone-salmeterol (ADVAIR) 250-50 mcg/dose dsdv Inhale 1 Puff as instructed twice daily. - omeprazole (PRILOSEC) 20 mg capsule Take 20 mg by mouth once daily. - pravastatin (PRAVACHOL) 80 mg tablet Take 80 mg by mouth once daily. - montelukast (SINGULAIR) 10 mg tablet Take 10 mg by mouth daily at bedtime. - Cetirizine 10 mg cap Take by mouth daily at bedtime. - hydrochlorothiazide (HYDRODIURIL, ESIDRIX) 25 mg tablet Take 25 mg by mouth once daily. Problem List As Of Date 02/03/2023 Noted Resolved Digital mucous cyst [M67.449] 10/13/2015 Hypertension [I10] 11/20/2015 Asthma [J45.909] 11/20/2015 Hypothyroidism [E03.9] 11/20/2015 Syncope [R55] 11/20/2015 Hyperlipidemia [E78.5] 11/20/2015 Prescriptions ordered this encounter Disp Refills Start End DOXYCYCLINE HYCLATE 100 MG TABLET 14 t* 0 02/03/2023 02/10/2023 Route: ORAL Sig: Take 1 tablet by mouth twice daily for 7 days. Encounter Status:Closed by MANUEL WISE on 02/03/23 Normal [facility] Bacteria Wnd Culton 02-01-20 Bacteria identified Cx Nom (Wound) ORGANISM ID: 1 Few Methicillin resistant Staphylococcus aureus GRAM STAIN: No cells or organisms seen ORGANISM ID: 1 (METHICILLIN RESISTANT STAPHYLOCOCCUS AUREUS) ANTIBIOTIC INTERPRETATION RACH STATUS REFERENCE RANGE Oxacillin R >=4 F Susceptible <=2 , Resistant >2 Oxacillin resistant Staphylococci are resistant to all beta-lactam antibiotics (except new cephalosporins with anti-MRSA activity i.e. ceftaroline) Gentamicin S <=0.5 F Susceptible <=4 , Intermediate >4 , Resistant >8 Erythromycin R >=8 F Susceptible <=0.5 , Intermediate >.5 , Resistant >4 Clindamycin S 0.25 F Susceptible <=0.5 , Intermediate >.5 , Resistant >2 Testing for inducible clindamycin resistance was performed. Trimeth sulfameth S <=10 F Susceptible <=40 , Resistant >40 Vancomycin S <=0.5 F Susceptible <=2 , Intermediate >2 , Resistant >8 Daptomycin S 0.25 F Susceptible <=1 , Nonsusceptible >1 Linezolid S 2 F Susceptible <=4 , Resistant >4 Rifampin S <=0.5 F Susceptible <=1 , Intermediate >1 , Resistant >2 Rifampin should not be used alone for antimicrobial therapy. Levofloxacin R 4 F Susceptible <=1 , Intermediate >1 , Resistant >2 Tetracycline S <=1 F Susceptible <=4 , Intermediate >4 , Resistant >8 Doxycycline S <=0.5 F Susceptible <=4 , Intermediate >4 , Resistant >8 Abnormal [facility] Comment on above: Performed By: #### 2 4323-8, [id number], 2777-1, 3016-3 #### [facility] CLIA [id number] [address] [place] [address] [place] 01-31-2023 CNOV Office Visit ([facility] ) -- MARCO AJERRELL ([id number]) 1945 F Date Time Provider Department 01/31/23 2:15 PM ALEX LAW [facility] During your visit today, we recorded the following information about you: Temperature Pulse Respiration Blood pressure 97.5 degrees 98/minute 18/minute 126/84 Weight 71.1 kg Alex Law MD 01/31/2023 2:39 PM Signed Patient presents with: Derm Problem: Dog scratches on fifth digits x2 weeks HPI: Skin Lesion: Location: 5th fingers Duration: initially scratched by her puppy about 2 weeks ago (daughter thinks they might be bites) Pruritis/Pain: improving pain Change: worsening redness Drainage/blister/pustule/u lceration: red, pustules Treatment: peroxide, neosporin Started prednisone [...] pain, swelling, purulent drainage, or fever/malaise. Alex Law MD Allergies As of Date: 01/31/2023 Noted Allergy Reaction ACETAMINOPHEN-CODEINE 10/13/2015 10 - Anaphylaxis SEASONAL ALLERGIES 10/13/2015 14 - Other: See Comments Date Reviewed: 01/31/2023 Reviewed by: Zofia Yepez MA - Fully Assessed Reason for Visit: Derm Problem [33] Cmt: Dog scratches on fifth digits x2 weeks Primary Visit Diagnosis:Infected finger abrasion, initial encounter [S60.419A, L08.9] Other Visit Diagnosis:Dog scratch [W54.8XXA] Order(s):ABSCESS AND WOUND CULTURE WITH GRAM STAIN [SQWCUL] Order #: [id number]. #:[id number] amoxicillin-clavulanic acid (AUGMENTIN) 875-125 mg per tabletTake 1 tablet by mouth twice daily for 5 days.Disp: 10 tabletRfl: 0 Prescriptions as of 02/03/2023 - predniSONE (DELTASONE) 20 mg tablet TAKE 2 (TWO) TABLETS BY MOUTH EVERY DAY for FOUR days then 1 (ONE) TABLET EVERY DAY for 2 (TWO) days - rOPIN (more content not included)... Normal [facility] Basophil percentageOrdered B y: Dionne Magaña on 01-18-2023 Chloride [Moles/Vol] 111 mmol/L 98-107 [facility] Glucose [Mass/Vol] 101 mg/dL 74-106 [facility] Comment on above: Fasting Glucose resu lt from 100 to 125 mg/dL suggests IMPAIRED HOMEOSTASIS per A.D.A. criteria. Potassium [Moles/Vol] 4.3 mmol/L 3.5-5.1 [facility] Sodium [Moles/Vol] 139 mmol/L 136-145 [facility] Laboratory - Chemistry and C hemistry - challengeOrdered By: Dionne Magaña on 01-18-2023 CO2 [Moles/Vol] 22.0 mmol/L 21.0-32.0 [facility] Urea nitrogen/Creatinine [Mass ratio] 25.9 mg/mg 10-20 [facility] No Panel InformationOrdered By: Dionne Magaña on 01-18-2023 Estimated GFR (MDRD) Amer 72 mL/min >60 [facility] Comment on above: GFR Calc Estimated GFR (MDRD) Non-Af Amer 59 mL/min >60 [facility] Comment on above: Non- GFR Calc Serum or plasma calcium jd urement (mass/volume)Ordered By: Dionne Magaña on 01-18-2023 Calcium [Mass/Vol] 9.5 mg/dL 8.5-10.1 [facility] Serum or plasma creatinine m easurement (mass/volume)Ordered By: Dionne Magaña on 01-18-2023 Creatinine [Mass/Vol] 0.97 mg/dL 0.55-1.02 [facility] Comment on above: The validity of the calculated GFR & GFRAA in patients over 70 years has not been determined. Clinical correlation is essential. Serum or plasma urea nitroge n measurement (mass/volume)Ordered By: Dionne Magaña on 01-18-2023 Urea nitrogen [Mass/Vol] 25 mg/dL 7-18 [facility] Thin prep Papanicolaou smear with manual screeningOrdered By: Dionne Magaña on 01-18-2023 Thin prep Papanicolaou smear with manual screening 6 5-15 [facility] Absolute lymphocyte countOrd ered By: Dionne Magaña on 01-10-2023 Lymphocytes Auto (Unsp spec) [#/Vol] 1.80 10*3/uL 0.83-4.51 [facility] Basophil percentageOrdered B y: Dionne Magaña on 01-10-2023 Basophils/100 WBC (Bld) 0.8 % 0-1 [facility] Bilirubin [Mass/Vol] 0.30 mg/dL 0.20-1.00 [facility] Comment on above: For patients on eltr ombopag therapy, use of Dimension [place] TBIL is not recommended. Chloride [Moles/Vol] 105 mmol/L 98-107 [facility] Cholesterol [Mass/Vol] 150 mg/dL <200 [facility] Comment on above: <200 mg/dL Desirable 200-240 mg/dL Borderline >240 mg/dL High Risk Eosinophils/100 WBC (Bld) 4.1 % 0-5 [facility] Glucose [Mass/Vol] 95 mg/dL 74-106 [facility] Neutrophils (Bld) [#/Vol] 6.9 10*3/uL 2.0-7.7 [facility] Neutrophils/100 WBC (Bld) 66.6 % 47-70 [facility] Potassium [Moles/Vol] 5.2 mmol/L 3.5-5.1 [facility] Protein [Mass/Vol] 7.3 g/dL 6.4-8.2 [facility] Sodium [Moles/Vol] 132 mmol/L 136-145 [facility] Triglyceride [Mass/Vol] 235 mg/dL <199 [facility] Comment on above: The drugs N-Acetylcy steine and Metamizole may falsely depress this assay.Serum Triglycerides Reference Interval Normal <150 mg/dL Borderline high 150 - 199 mg/dL High 200 - 499 mg/dL Very High > or = 500 mg/dL WBC (Bld) [#/Vol] 10.3 10*3/uL 4.4-11.0 [facility] Blood erythrocytes count (nu mber/volume)Ordered By: Dionne Magaña on 01-10-2023 RBC (Bld) [#/Vol] 3.52 10*6/uL 4.2-5.4 [facility] Blood hemoglobin measurement (mass/volume)Ordered By: Dionne Magaña on 01-10-2023 Hemoglobin (Bld) [Mass/Vol] 11.8 g/dL 12.0-15.0 [facility] Blood lymphocytes/100 leukoc ytesOrdered By: Dionne Magaña on 01-10-2023 Lymphocytes/100 WBC (Bld) 17.5 % 19-41 [facility] Blood monocytes/100 leukocyt esOrdered By: Dionne Magaña on 01-10-2023 Monocytes/100 WBC (Bld) 10.3 % 0-10 [facility] Blood platelet mean volumeOr dered By: Dionne Magaña on 01-10-2023 Platelet mean volume (Bld) [Entitic vol] 11.8 fL 6.2-12.0 [facility] Determination of erythrocyte mean corpuscular volume (MCV)Ordered By: Dionne Magaña on 01-10-2023 MCV (RBC) [Entitic vol] 105.4 fL 81-99 [facility] Hematocrit Auto (Bld) [Volum e fraction]Ordered By: Dionne Magaña on 01-10-2023 Hematocrit (Bld) [Volume fraction] 37.1 % 37-47 [facility] - Chemistry and C hemistry - challengeOrdered By: Dionne Magaña on 01-10-2023 ALP [Catalytic activity/Vol] 99 U/L 45-117 [facility] ALT [Catalytic activity/Vol] 34 U/L 13-56 [facility] CO2 [Moles/Vol] 24.0 mmol/L 21.0-32.0 [facility] Cobalamin (Vitamin B12) [Mass/Vol] 228 pg/mL 211-911 [facility] Globulin (S) [Mass/Vol] 3.6 g/dL 2.2-4.2 [facility] Urea nitrogen/Creatinine [Mass ratio] 13.8 mg/mg 10-20 [facility] - Hematology and Cell countsOrdered By: Dionne Magaña on 01-10-2023 Erythrocyte distribution width (RBC) [Entitic vol] 48.7 fL 35.1-43.9 [facility] Erythrocyte distribution width (RBC) [Ratio] 12.5 % 11.6-14.6 [facility] Immature granulocytes/100 WBC (Bld) 0.700 % 0.0-0.9 [facility] Comment on above: IG% - Immature Granu locytes (promyelocytes, myelocytes and metamyelocytes) > 1% indicates that a LEFT SHIFT is Present. MCH (RBC) [Entitic mass] 33.5 pg 27.0-32.0 [facility] Nucleated RBC/100 WBC (Bld) [Ratio] 0 % 0-5 [facility] MCHC Auto (RBC) [Mass/Vol]Or dered By: Dionne Magaña on 01-10-2023 MCHC (RBC) [Mass/Vol] 31.8 g/dL 32-36 [facility] No Panel InformationOrdered By: Dionne Magaña on 01-10-2023 Urine Microalbumin/Creatinine Ratio 15.9 mg/g CRE <30 [facility] Estimated GFR (MDRD) Amer 73 mL/min >60 [facility] Comment on above: GFR Calc Estimated GFR (MDRD) Non-Af Amer 61 mL/min >60 [facility] Comment on above: Non- GFR Calc Thyroid Stimulating Hormone (TSH) 0.09 uIU/mL 0.358-3.74 [facility] Vitamin D 25-Hydroxy 36.4 ng/mL [facility] Comment on above: Vitamin D 25(OH) Sta tus Range Deficiency <20 ng/mL (50nmol/L) Insufficiency 20 - 30 ng/mL (50 - 75 nmol/L) Sufficiency 30 - 100 ng/mL (75 - 250 nmol/L) Toxicity >100 ng/mL (>250 nmol/L) Platelets bldOrdered By: Miguelangel Magaña on 01-10-2023 Platelets (Bld) [#/Vol] 314 10*3/uL 150-450 [facility] Serum or plasma albumin jd urement (mass/volume)Ordered By: Dionne Magaña on 01-10-2023 Albumin [Mass/Vol] 3.7 g/dL 3.2-5.0 [facility] Serum or plasma albumin/glob ulin mass ratioOrdered By: Dionne Magaña on 01-10-2023 Albumin/Globulin [Mass ratio] 1.0 {ratio} 0.9-2.4 [facility] Serum or plasma calcium jd urement (mass/volume)Ordered By: Dionne Magaña on 01-10-2023 Calcium [Mass/Vol] 9.7 mg/dL 8.5-10.1 [facility] Serum or plasma cholesterol in HDL measurement (mass/volume)Ordered By: Dionne Magaña on 01-10-2023 Cholesterol in HDL [Mass/Vol] 34 mg/dL >40 [facility] Comment on above: The drugs N-Acetylcy steine and Metamizole may falsely depress this assay. Reference Range HDL <40 mg/dL Low HDL Cholesterol HDL >or= 60 mg/dL High HDL Cholesterol Serum or plasma cholesterol in VLDL measurement (mass/volume)Ordered By: Dionne Magaña on 01-10-2023 Cholesterol in VLDL [Mass/Vol] 47 mg/dL 5-40 [facility] Serum or plasma creatinine m easurement (mass/volume)Ordered By: Dionne Magaña on 01-10-2023 Creatinine [Mass/Vol] 0.94 mg/dL 0.55-1.02 [facility] Comment on above: The validity of the calculated GFR & GFRAA in patients over 70 years has not been determined. Clinical correlation is essential. Serum or plasma folate measu rement (mass/volume)Ordered By: Dionne Magaña on 01-10-2023 Folate [Mass/Vol] 8.60 ng/mL 3.1-55.4 [facility] Serum or plasma low density lipoprotein (LDL) cholesterol measurement (mass/volume)Ordered By: Dionne Magaña on 01-10-2023 Cholesterol in LDL [Mass/Vol] 69 mg/dL 0-130 [facility] Serum or plasma urea nitroge n measurement (mass/volume)Ordered By: Dionne Magaña on 01-10-2023 Urea nitrogen [Mass/Vol] 13 mg/dL 7-18 [facility] Thin prep Papanicolaou smear with manual screeningOrdered By: Dionne Magaña on 01-10-2023 Thin prep Papanicolaou smear with manual screening 11.5 mg/L NO RANGE EST. [facility] Thin prep Papanicolaou smear with manual screening 24 U/L 15-37 [facility] Thin prep Papanicolaou smear with manual screening 3 5-15 [facility] Urine creatinine measurement (mass/volume)Ordered By: Dionne Magaña on 01-10-2023 Creatinine (U) [Mass/Vol] 72.40 mg/dL NO RANGE EST. [facility] Whole blood hemoglobin A1c/t otal hemoglobin ratio (mass fraction)Ordered By: Dionne Magaña on 01-10-2023 HbA1c (Bld) [Mass fraction] 5.7 % 3.8-5.6 [facility] Comment on above: Normal < 5.7 % Predi abetic 5.7 - 6.4 % Diabetic >or= 6.5 % Please note range changes. Absolute lymphocyte countOrd ered By: Dr. Martin on 08-25-2022 Lymphocytes Auto (Unsp spec) [#/Vol] 1.67 10*3/uL 0.83-4.51 [facility] Basophil percentageOrdered B y: Dr. Martin on 08-25-2022 Basophils/100 WBC (Bld) 0.8 % 0-1 [facility] Bilirubin [Mass/Vol] 0.40 mg/dL 0.20-1.00 [facility] Comment on above: For patients on eltr ombopag therapy, use of Dimension [place] TBIL is not recommended. Chloride [Moles/Vol] 100 mmol/L 98-107 [facility] Eosinophils/100 WBC (Bld) 3.7 % 0-5 [facility] Glucose [Mass/Vol] 119 mg/dL 74-106 [facility] Comment on above: Fasting Glucose resu lt from 100 to 125 mg/dL suggests IMPAIRED HOMEOSTASIS per A.D.A. criteria. Neutrophils (Bld) [#/Vol] 11.2 10*3/uL 2.0-7.7 [facility] Neutrophils/100 WBC (Bld) 76.6 % 47-70 [facility] Potassium [Moles/Vol] 3.8 mmol/L 3.5-5.1 [facility] Protein [Mass/Vol] 7.1 g/dL 6.4-8.2 [facility] Sodium [Moles/Vol] 137 mmol/L 136-145 [facility] WBC (Bld) [#/Vol] 14.6 10*3/uL 4.4-11.0 [facility] Blood erythrocytes count (nu mber/volume)Ordered By: Dr. Martin on 08-25-2022 RBC (Bld) [#/Vol] 3.79 10*6/uL 4.2-5.4 [facility] Blood hemoglobin measurement (mass/volume)Ordered By: Dr. Martin on 08-25-2022 Hemoglobin (Bld) [Mass/Vol] 12.7 g/dL 12.0-15.0 [facility] Blood lymphocytes/100 leukoc ytesOrdered By: Dr. Martin on 08-25-2022 Lymphocytes/100 WBC (Bld) 11.4 % 19-41 [facility] Blood monocytes/100 leukocyt esOrdered By: Dr. Martin on 08-25-2022 Monocytes/100 WBC (Bld) 6.9 % 0-10 [facility] Blood platelet mean volumeOr dered By: Dr. Martin on 08-25-2022 Platelet mean volume (Bld) [Entitic vol] 12.2 fL 6.2-12.0 [facility] Determination of erythrocyte mean corpuscular volume (MCV)Ordered By: Dr. Martin on 08-25-2022 MCV (RBC) [Entitic vol] 104.0 fL 81-99 [facility] Erythrocyte sedimentation ra teOrdered By: Dr. Martin on 08-25-2022 ESR (Bld) [Velocity] 22 mm/h 0-30 [facility] Hematocrit Auto (Bld) [Volum e fraction]Ordered By: Dr. Martin on 08-25-2022 Hematocrit (Bld) [Volume fraction] 39.4 % 37-47 [facility] - Chemistry and C hemistry - challengeOrdered By: Dr. Martin on 08-25-2022 ALP [Catalytic activity/Vol] 88 U/L 45-117 [facility] ALT [Catalytic activity/Vol] 23 U/L 13-56 [facility] CO2 [Moles/Vol] 27.0 mmol/L 21.0-32.0 [facility] Cobalamin (Vitamin B12) [Mass/Vol] 334 pg/mL 211-911 [facility] Globulin (S) [Mass/Vol] 3.8 g/dL 2.2-4.2 [facility] Urea nitrogen/Creatinine [Mass ratio] 12.1 mg/mg 10-20 [facility] - Hematology and Cell countsOrdered By: Dr. Martin on 08-25-2022 Erythrocyte distribution width (RBC) [Entitic vol] 48.4 fL 35.1-43.9 [facility] Erythrocyte distribution width (RBC) [Ratio] 12.7 % 11.6-14.6 [facility] Immature granulocytes/100 WBC (Bld) 0.600 % 0.0-0.9 [facility] Comment on above: IG% - Immature Granu locytes (promyelocytes, myelocytes and metamyelocytes) > 1% indicates that a LEFT SHIFT is Present. MCH (RBC) [Entitic mass] 33.5 pg 27.0-32.0 [facility] Nucleated RBC/100 W[facility] (Bld) [facility]] 0 [facility] [[facility]/Vol]Or dered By: Dr. Martin on 08-25-2022 MCHC (RBC) [Mass/Vol] 32.2 g/dL 32-36 [facility] No Panel InformationOrdered By: Dr. Martin on 08-25-2022 Estimated GFR (MDRD) Amer 58 mL/min >60 [facility] Comment on above: GFR Calc Estimated GFR (MDRD) Non-Af Amer 48 mL/min >60 [facility] Comment on above: Non- GFR Calc Thyroid Stimulating Hormone (TSH) 25.40 uIU/mL 0.358-3.74 [facility] Platelets bldOrdered By: Dr. Martin on 08-25-2022 Platelets (Bld) [#/Vol] 298 10*3/uL 150-450 [facility] Serum or plasma albumin jd urement (mass/volume)Ordered By: Dr. Martin on 08-25-2022 Albumin [Mass/Vol] 3.3 g/dL 3.2-5.0 [facility] Serum or plasma albumin/glob ulin mass ratioOrdered By: Dr. Martin on 08-25-2022 Albumin/Globulin [Mass ratio] 0.9 {ratio} 0.9-2.4 [facility] Serum or plasma calcium jd urement (mass/volume)Ordered By: Dr. Martin on 08-25-2022 Calcium [Mass/Vol] 9.4 mg/dL 8.5-10.1 [facility] Serum or plasma creatinine m easurement (mass/volume)Ordered By: Dr. Martin on 08-25-2022 Creatinine [Mass/Vol] 1.16 mg/dL 0.55-1.02 [facility] Comment on above: The validity of the calculated GFR & GFRAA in patients over 70 years has not been determined. Clinical correlation is essential. Serum or plasma urea nitroge n measurement (mass/volume)Ordered By: Dr. Martin on 08-25-2022 Urea nitrogen [Mass/Vol] 14 mg/dL 7-18 [facility] Thin prep Papanicolaou smear with manual screeningOrdered By: Dr. Martin on 08-25-2022 Thin prep Papanicolaou smear with manual screening 22 U/L 15-37 [facility] Thin prep Papanicolaou smear with manual screening 10 5-15 [facility] Basophil percentageOrdered B y: Dr. Freeman on 07-30-2022 WBC (Bld) [#/Vol] 10.2 10*3/uL 4.4-11.0 [facility] Blood erythrocytes count (nu mber/volume)Ordered By: Dr. Freeman on 07-30-2022 RBC (Bld) [#/Vol] 3.78 10*6/uL 4.2-5.4 [facility] Blood hemoglobin measurement (mass/volume)Ordered By: Dr. Freeman on 07-30-2022 Hemoglobin (Bld) [Mass/Vol] 12.8 g/dL 12.0-15.0 [facility] Blood platelet mean volumeOr dered By: Dr. Freeman on 07-30-2022 Platelet mean volume (Bld) [Entitic vol] 11.1 fL 6.2-12.0 [facility] Determination of erythrocyte mean corpuscular volume (MCV)Ordered By: Dr. Freeman on 07-30-2022 MCV (RBC) [Entitic vol] 106.6 fL 81-99 [facility] Hematocrit Auto (Bld) [Volum e fraction]Ordered By: Dr. Freeman on 07-30-2022 Hematocrit (Bld) [Volume fraction] 40.3 % 37-47 [facility] - Hematology and Cell countsOrdered By: Dr. Freeman on 07-30-2022 Erythrocyte distribution width (RBC) [Entitic vol] 50.7 fL 35.1-43.9 [facility] Erythrocyte distribution width (RBC) [Ratio] 12.9 % 11.6-14.6 [facility] MCH (RBC) [Entitic mass] 33.9 pg 27.0-32.0 [facility] MCHC Auto (RBC) [Mass/Vol]Or dered By: Dr. Freeman on 07-30-2022 MCHC (RBC) [Mass/Vol] 31.8 g/dL 32-36 [facility] Platelets bldOrdered By: Dr. Freeman on 07-30-2022 Platelets (Bld) [#/Vol] 356 10*3/uL 150-450 [facility] LABORATORYOrdered By: Sarah Hinkle on 07-09-2022 Basophil, Absolute 0.1 103/mcL Invalid Interpretation Code 0.0 - 0.2 10^3/mcL AO Workflow SS Basophils/100 WBC (Bld) 0.5 % Invalid Interpretation Code 0.0 - 2.5 % AO Workflow SS Eosinophil, Absolute 0.4 103/mcL Invalid Interpretation Code 0.0 - 0.4 10^3/mcL AO Workflow SS Eosinophils/100 WBC (Bld) 2.8 % Invalid Interpretation Code 0.0 - 7.0 % AO Workflow SS Erythrocyte distribution width (RBC) [Ratio] 12.8 % Invalid Interpretation Code 11.5 - 14.5 % AO Workflow SS Hematocrit (Bld) [Volume fraction] 33.3 % Invalid Interpretation Code 37.0 - 47.0 % AO Workflow SS Hemoglobin (Bld) [Mass/Vol] 11.1 G/dL Invalid Interpretation Code 12.0 - 16.0 G/dL AO Workflow SS Lymphocyte, Absolute 1.6 103/mcL Invalid Interpretation Code 0.8 - 3.9 10^3/mcL AO Workflow SS Lymphocytes/100 WBC (Bld) 12.7 % Invalid Interpretation Code 10.0 - 50.0 % AO Workflow SS MCH (RBC) [Entitic mass] 34.3 pg Invalid Interpretation Code 27.0 - 31.2 pg AO Workflow SS MCHC 33.3 G/dL Invalid Interpretation Code 33.0 - 37.0 G/dL AO Workflow SS MCV (RBC) [Entitic vol] 103.0 fL Invalid Interpretation Code 80.0 - 94.0 fL AO Workflow SS Monocyte, Absolute 1.4 103/mcL Invalid Interpretation Code 0.2 - 1.0 10^3/mcL AO Workflow SS Monocytes/100 WBC (Bld) 11.4 % Invalid Interpretation Code 1.7 - 13.0 % AO Workflow SS Neutrophil, Absolute 9.0 103/mcL Invalid Interpretation Code 2.9 - 6.2 10^3/mcL AO Workflow SS Neutrophils/100 WBC (Bld) 72.6 % Invalid Interpretation Code 37.0 - 80.0 % AO Workflow SS Platelet mean volume (Bld) [Entitic vol] 9.9 fL Invalid Interpretation Code 7.4 - 10.4 fL AO Workflow SS Platelets (Bld) [#/Vol] 213 103/mcL Invalid Interpretation Code 130 - 400 10^3/mcL AO Workflow SS RBC (Bld) [#/Vol] 3.23 106/mcL Invalid Interpretation Code 4.20 - 5.40 10^6/mcL AO Workflow SS WBC (Bld) [#/Vol] 12.4 103/mcL Invalid Interpretation Code 4.6 - 10.8 10^3/mcL AO Workflow SS LABORATORYOrdered By: SYSTEM SYSTEM on 07-09-2022 Calcium [Mass/Vol] 8.4 mg/dL Invalid Interpretation Code 8.4 - 10.2 mg/dL AO ADM SS Chloride [Moles/Vol] 107 mmol/L Invalid Interpretation Code 98 - 107 mmol/L AO ADM SS CO2 [Moles/Vol] 26 mmol/L Invalid Interpretation Code 23 - 31 mmol/L AO ADM SS Creatinine [Mass/Vol] 0.93 mg/dL Invalid Interpretation Code 0.55 - 1.02 mg/dL AO ADM SS Electrolyte Balance 7.0 mEq/L Invalid Interpretation Code 4.0 - 15.0 mEq/L AO ADM SS GFR 71 ml/min/1.73sqm Invalid Interpretation Code AO Chemistry S GFR Non- 58 ml/min/1.73sqm Invalid Interpretation Code AO Chemistry S Glucose [Mass/Vol] 96 mg/dL Invalid Interpretation Code 83 - 110 mg/dL AO ADM SS Potassium [Moles/Vol] 4.1 mmol/L Invalid Interpretation Code 3.5 - 5.1 mmol/L AO ADM SS Sodium [Moles/Vol] 140 mmol/L Invalid Interpretation Code 136 - 145 mmol/L AO ADM SS Urea nitrogen [Mass/Vol] 25 mg/dL Invalid Interpretation Code 7 - 18 mg/dL AO ADM SS Urea nitrogen/Creatinine [Mass ratio] 27 ratio Invalid Interpretation Code 7 - 27 ratio AO ADM SS LABORATORYOrdered By: Sarah Hinkle on 07-08-2022 Basophil, Absolute 0.1 103/mcL Invalid Interpretation Code 0.0 - 0.2 10^3/mcL AO Workflow SS Basophils/100 WBC (Bld) 0.6 % Invalid Interpretation Code 0.0 - 2.5 % AO Workflow SS Eosinophil, Absolute 0.1 103/mcL Invalid Interpretation Code 0.0 - 0.4 10^3/mcL AO Workflow SS Eosinophils/100 WBC (Bld) 0.5 % Invalid Interpretation Code 0.0 - 7.0 % AO Workflow SS Erythrocyte distribution width (RBC) [Ratio] 13.1 % Invalid Interpretation Code 11.5 - 14.5 % AO Workflow SS Hematocrit (Bld) [Volume fraction] 35.9 % Invalid Interpretation Code 37.0 - 47.0 % AO Workflow SS Hemoglobin (Bld) [Mass/Vol] 11.7 G/dL Invalid Interpretation Code 12.0 - 16.0 G/dL AO Workflow SS Lymphocyte, Absolute 1.6 103/mcL Invalid Interpretation Code 0.8 - 3.9 10^3/mcL AO Workflow SS Lymphocytes/100 WBC (Bld) 10.9 % Invalid Interpretation Code 10.0 - 50.0 % AO Workflow SS MCH (RBC) [Entitic mass] 33.6 pg Invalid Interpretation Code 27.0 - 31.2 pg AO Workflow SS MCHC 32.5 G/dL Invalid Interpretation Code 33.0 - 37.0 G/dL AO Workflow SS MCV (RBC) [Entitic vol] 103.3 fL Invalid Interpretation Code 80.0 - 94.0 fL AO Workflow SS Monocyte, Absolute 1.3 103/mcL Invalid Interpretation Code 0.2 - 1.0 10^3/mcL AO Workflow SS Monocytes/100 WBC (Bld) 8.9 % Invalid Interpretation Code 1.7 - 13.0 % AO Workflow SS Neutrophil, Absolute 11.8 103/mcL Invalid Interpretation Code 2.9 - 6.2 10^3/mcL AO Workflow SS Neutrophils/100 WBC (Bld) 79.1 % Invalid Interpretation Code 37.0 - 80.0 % AO Workflow SS Platelet mean volume (Bld) [Entitic vol] 9.6 fL Invalid Interpretation Code 7.4 - 10.4 fL AO Workflow SS Platelets (Bld) [#/Vol] 238 103/mcL Invalid Interpretation Code 130 - 400 10^3/mcL AO Workflow SS RBC (Bld) [#/Vol] 3.48 106/mcL Invalid Interpretation Code 4.20 - 5.40 10^6/mcL AO Workflow SS WBC (Bld) [#/Vol] 14.9 103/mcL Invalid Interpretation Code 4.6 - 10.8 10^3/mcL AO Workflow SS LABORATORYOrdered By: SYSTEM SYSTEM on 07-08-2022 Calcium [Mass/Vol] 8.7 mg/dL Invalid Interpretation Code 8.4 - 10.2 mg/dL AO ADM SS Chloride [Moles/Vol] 108 mmol/L Invalid Interpretation Code 98 - 107 mmol/L AO ADM SS CO2 [Moles/Vol] 24 mmol/L Invalid Interpretation Code 23 - 31 mmol/L AO ADM SS Creatinine [Mass/Vol] 0.90 mg/dL Invalid Interpretation Code 0.55 - 1.02 mg/dL AO ADM SS Electrolyte Balance 11.0 mEq/L Invalid Interpretation Code 4.0 - 15.0 mEq/L AO ADM SS GFR 73 ml/min/1.73sqm Invalid Interpretation Code AO Chemistry S GFR Non- 61 ml/min/1.73sqm Invalid Interpretation Code AO Chemistry S Glucose [Mass/Vol] 101 mg/dL Invalid Interpretation Code 83 - 110 mg/dL AO ADM SS Magnesium [Mass/Vol] 1.9 mg/dL Invalid Interpretation Code 1.8 - 2.4 mg/dL AO ADM SS Potassium [Moles/Vol] 4.1 mmol/L Invalid Interpretation Code 3.5 - 5.1 mmol/L AO ADM SS Sodium [Moles/Vol] 143 mmol/L Invalid Interpretation Code 136 - 145 mmol/L AO ADM SS Urea nitrogen [Mass/Vol] 21 mg/dL Invalid Interpretation Code 7 - 18 mg/dL AO ADM SS Urea nitrogen/Creatinine [Mass ratio] 23 ratio Invalid Interpretation Code 7 - 27 ratio AO ADM SS Calcium [Mass/Vol] 9.1 mg/dL Invalid Interpretation Code 8.4 - 10.2 mg/dL AO ADM SS Chloride [Moles/Vol] 103 mmol/L Invalid Interpretation Code 98 - 107 mmol/L AO ADM SS CO2 [Moles/Vol] 26 mmol/L Invalid Interpretation Code 23 - 31 mmol/L AO ADM SS Creatinine [Mass/Vol] 1.03 mg/dL Invalid Interpretation Code 0.55 - 1.02 mg/dL AO ADM SS Electrolyte Balance 7.0 mEq/L Invalid Interpretation Code 4.0 - 15.0 mEq/L AO ADM SS GFR 63 ml/min/1.73sqm Invalid Interpretation Code AO Chemistry S GFR Non- 52 ml/min/1.73sqm Invalid Interpretation Code AO Chemistry S Glucose [Mass/Vol] 124 mg/dL Invalid Interpretation Code 83 - 110 mg/dL AO ADM SS Lactate [Moles/Vol] 1.4 mmol/L Invalid Interpretation Code 0.4 - 2.0 mmol/L AO ADM SS Magnesium [Mass/Vol] 2.0 mg/dL Invalid Interpretation Code 1.8 - 2.4 mg/dL AO ADM SS Potassium [Moles/Vol] 4.4 mmol/L Invalid Interpretation Code 3.5 - 5.1 mmol/L AO ADM SS Sodium [Moles/Vol] 136 mmol/L Invalid Interpretation Code 136 - 145 mmol/L AO ADM SS Urea nitrogen [Mass/Vol] 23 mg/dL Invalid Interpretation Code 7 - 18 mg/dL AO ADM SS Urea nitrogen/Creatinine [Mass ratio] 22 ratio Invalid Interpretation Code 7 - 27 ratio AO ADM SS LABORATORYOrdered By: Nadine Nava on 07-08-2022 BE Venous -1 mmol/L Invalid Interpretation Code -2 - 3 mmol/L AO Blood Gas SS CO2 [Moles/Vol] 26.0 mmol/L Invalid Interpretation Code 24.0 - 29.0 mmol/L AO Blood Gas SS HCO3 (Bld) [Moles/Vol] 24.7 mmol/L Invalid Interpretation Code 23.0 - 28.0 mmol/L AO Blood Gas SS pCO2 Richard 45 mm[Hg] Invalid Interpretation Code 41 - 51 mm Hg AO Blood Gas SS pH (BldV) 7.35 [pH] Invalid Interpretation Code 7.31 - 7.41 AO Blood Gas SS pO2 Richard 34 mm[Hg] Invalid Interpretation Code AO Blood Gas SS Appearance (U) Slightly Cloudy *ABN* (07/08/22 1:33 AM) Invalid Interpretation Code Clear AO Auto Urine SS Bilirubin Ql (U) Negative (07/08/22 1:33 AM) Invalid Interpretation Code Negative AO Auto Urine SS Color (U) Yellow (07/08/22 1:33 AM) Invalid Interpretation Code AO Auto Urine SS Glucose Test strip (U) [Mass/Vol] Negative Invalid Interpretation Code Negativemg /dL AO Auto Urine SS Hemoglobin Auto test strip (U) [Mass/Vol] Trace *ABN* (07/08/22 1:33 AM) Invalid Interpretation Code Negative AO Auto Urine SS Ketones Ql (U) Negative Invalid Interpretation Code Negativemg /dL AO Auto Urine SS UA Leuk Est Moderate *ABN* (07/08/22 1:33 AM) Invalid Interpretation Code Negative AO Auto Urine SS UA Nitrite Negative (07/08/22 1:33 AM) Invalid Interpretation Code Negative AO Auto Urine SS UA pH 5.5 (07/08/22 1:33 AM) Invalid Interpretation Code 5.0 - 8.0 AO Auto Urine SS UA Protein Negative Invalid Interpretation Code Negativemg /dL AO Auto Urine SS UA RBC 0-5 /HPF Invalid Interpretation Code None Seen/HPF AO Auto Urine SS UA Spec Grav 1.015 (07/08/22 1:33 AM) Invalid Interpretation Code 1.015-1.02 5 AO Auto Urine SS UA Specimen Type Clean Catch (07/08/22 1:33 AM) Invalid Interpretation Code AO Auto Urine SS UA Squam Epithelial 0-5 /HPF Invalid Interpretation Code None Seen/HPF AO Auto Urine SS UA Urobilinogen 0.2 E.U./dL Invalid Interpretation Code 0.2-1.0E.U ./dL AO Auto Urine SS WBC LM.HPF (Urine sed) [#/Area] 5-10 /HPF Invalid Interpretation Code None Seen/HPF AO Auto Urine SS Basophil, Absolute 0.1 103/mcL Invalid Interpretation Code 0.0 - 0.2 10^3/mcL AO Workflow SS Basophils/100 WBC (Bld) 0.4 % Invalid Interpretation Code 0.0 - 2.5 % AO Workflow SS Eosinophil, Absolute 0.1 103/mcL Invalid Interpretation Code 0.0 - 0.4 10^3/mcL AO Workflow SS Eosinophils/100 WBC (Bld) 0.3 % Invalid Interpretation Code 0.0 - 7.0 % AO Workflow SS Erythrocyte distribution width (RBC) [Ratio] 12.8 % Invalid Interpretation Code 11.5 - 14.5 % AO Workflow SS Hematocrit (Bld) [Volume fraction] 37.6 % Invalid Interpretation Code 37.0 - 47.0 % AO Workflow SS Hemoglobin (Bld) [Mass/Vol] 12.3 G/dL Invalid Interpretation Code 12.0 - 16.0 G/dL AO Workflow SS Lymphocyte, Absolute 1.4 103/mcL Invalid Interpretation Code 0.8 - 3.9 10^3/mcL AO Workflow SS Lymphocytes/100 WBC (Bld) 7.9 % Invalid Interpretation Code 10.0 - 50.0 % AO Workflow SS MCH (RBC) [Entitic mass] 34.0 pg Invalid Interpretation Code 27.0 - 31.2 pg AO Workflow SS MCHC 32.7 G/dL Invalid Interpretation Code 33.0 - 37.0 G/dL AO Workflow SS MCV (RBC) [Entitic vol] 103.7 fL Invalid Interpretation Code 80.0 - 94.0 fL AO Workflow SS Monocyte, Absolute 1.5 103/mcL Invalid Interpretation Code 0.2 - 1.0 10^3/mcL AO Workflow SS Monocytes/100 WBC (Bld) 8.2 % Invalid Interpretation Code 1.7 - 13.0 % AO Workflow SS Neutrophil, Absolute 14.9 103/mcL Invalid Interpretation Code 2.9 - 6.2 10^3/mcL AO Workflow SS Neutrophils/100 WBC (Bld) 83.2 % Invalid Interpretation Code 37.0 - 80.0 % AO Workflow SS Platelet mean volume (Bld) [Entitic vol] 9.3 fL Invalid Interpretation Code 7.4 - 10.4 fL AO Workflow SS Platelets (Bld) [#/Vol] 246 103/mcL Invalid Interpretation Code 130 - 400 10^3/mcL AO Workflow SS RBC (Bld) [#/Vol] 3.62 106/mcL Invalid Interpretation Code 4.20 - 5.40 10^6/mcL AO Workflow SS WBC (Bld) [#/Vol] 17.9 103/mcL Invalid Interpretation Code 4.6 - 10.8 10^3/mcL AO Workflow SS No Panel Informationon 07-08 Culture Urine 10,000 - 50,000 cfu/ ml Multiple bacterial morphotypes present. Probable Contamination. Suggest recollection if clinically indicated. [facility] Work Phone: Microscopic examination of blood, culture Culture has been received in lab and is no growth to date. Routine cultures are held for 5 days. [facility] Work Phone: LABORATORYOrdered By: Hernan Vernon on 07-07-2022 Glucose [Mass/Vol] 141 mg/dL Invalid Interpretation Code 82 - 115 mg/dL [facility] Work Phone: LABORATORYOrdered By: Ellen Angela on 07-06-2022 Glucose [Mass/Vol] 130 mg/dL Invalid Interpretation Code 82 - 115 mg/dL [facility] Work Phone: LABORATORYOrdered By: Frances House on 07-06-2022 ABO/Rh Interp Positive Invalid Interpretation Code AO BB SS Antibody Screen Gel Negative ABSC (07/06/22 9:36 AM) Invalid Interpretation Code AO BB SS LABORATORYOrdered By: Chung Kimball on 07-06-2022 Glucose [Mass/Vol] 107 mg/dL Invalid Interpretation Code 82 - 115 mg/dL [facility] Work Phone: Laboratory - Drug toxicology Ordered By: Dr. Camacho on 06-28-2022 Amphetamines Ql (U) Negative <1000 ng/mL [facility] Benzodiazepines Ql (U) Negative < 200 ng/mL [facility] Cannabinoids Screen Ql (U) Negative < 50 ng/mL [facility] Cocaine Ql (U) Negative < 300 ng/mL [facility] Opiates Ql (U) Positive < 300 ng/mL [facility] No Panel InformationOrdered By: Dr. Camacho on 06-28-2022 MDMA (Ecstasy) Screen Negative < 500 ng/mL [facility] Miscellaneous Test See comment [facility] Comment on above: [id number]+OXYCODONE-B UND (ng/mL) DRUG RESULT SCREEN CUTOFF____ Amphetamines,Urine Negative ng/mL 1000 Amphetamine test includes Amphetamine and Methamphetamine.Barbiturates Negative ng/mL 200Benzodiazepines Negative ng/mL 200Cannabinoid Negative ng/mL 20Cocaine (Metab) Negative ng/mL 300Opiates Positive ng/mL 300 Opiates test includes Codeine, Morphine, Hydromorphone, Hydrocodone. Please Note: Confirmation performed by Mass Spectrometry Codeine Negative 300 Morphine Negative 300 Hydromorphone Negative 300 Hydrocodone Positive Hydrocodone Conf, [place], [place] 1259 ng/mL 300 Oxycodone/Oxymorphone,Urine Negative ng/mL 300 Test includes Oxydodone and Oxymorphone. TESTING PERFORMED AT [facility]. ORIGINAL REPORT ON FILE IN LAB CONTAINS ADDITIONAL TEST SITE INFORMATION. Urine Barbiturates Screen Negative < 200 ng/mL [facility] Urine Drug Screen Comment [facility] Comment on above: CONFIRMATORY TESTING FOR ALL POSITIVE URINE DRUG SCREENRESULTS WILL ONLY BE SENT OUT UPON PHYSICIAN ORDER. [facility]IST[facility] Urine Drug Screen methods provide only preliminaryanalytical test results. A more specific alternate chemicalmethod must be used in order to obtain a confirmedanalytical result. Gas chromatography/mass spectrometery(GC/MS) is the preferred confirmatory method. Clinicalconsideration and professional judgement should be appliedto any drug of abuse test result, particularly whenpreliminary positive results are used. URINE TCA TESTING MUST BE ORDERED SEPARATELY. USE TESTMNEMONIC: [facility] Urine Methadone Screen Negative < 300 ng/mL [facility] Urine phencyclidine (PCP) de tectionOrdered By: Dr. Camacho on 06-28-2022 Phencyclidine Ql (U) Negative < 25 ng/mL [facility] LABORATORYOrdered By: Nadine Nava on 06-22-2022 ABO/Rh Interp Positive Invalid Interpretation Code AO BB SS Antibody Screen Gel Negative ABSC (06/22/22 2:29 PM) Invalid Interpretation Code AO BB SS LABORATORYOrdered By: Osvaldo Rodgers on 06-22-2022 Albumin BCP dye [Mass/Vol] 3.9 G/dL Invalid Interpretation Code 3.4 - 4.8 G/dL AO ADM SS Calcium [Mass/Vol] 10.1 mg/dL Invalid Interpretation Code 8.4 - 10.2 mg/dL AO ADM SS Chloride [Moles/Vol] 103 mmol/L Invalid Interpretation Code 98 - 107 mmol/L AO ADM SS CO2 [Moles/Vol] 26 mmol/L Invalid Interpretation Code 23 - 31 mmol/L AO ADM SS Creatinine [Mass/Vol] 1.02 mg/dL Invalid Interpretation Code 0.55 - 1.02 mg/dL AO ADM SS Electrolyte Balance 10.0 mEq/L Invalid Interpretation Code 4.0 - 15.0 mEq/L AO ADM SS Glucose [Mass/Vol] 86 mg/dL Invalid Interpretation Code 83 - 110 mg/dL AO ADM SS HbA1c (Bld) [Mass fraction] 6.1 % Invalid Interpretation Code 4.3 - 6.4 % AO ADM SS Potassium [Moles/Vol] 4.6 mmol/L Invalid Interpretation Code 3.5 - 5.1 mmol/L AO ADM SS Sodium [Moles/Vol] 139 mmol/L Invalid Interpretation Code 136 - 145 mmol/L AO ADM SS Urea nitrogen [Mass/Vol] 18 mg/dL Invalid Interpretation Code 7 - 18 mg/dL AO ADM SS Urea nitrogen/Creatinine [Mass ratio] 18 ratio Invalid Interpretation Code 7 - 27 ratio AO ADM SS LABORATORYOrdered By: Frances House on 06-22-2022 Basophil, Absolute 0.2 103/mcL Invalid Interpretation Code 0.0 - 0.2 10^3/mcL AO Workflow SS Basophils/100 WBC (Bld) 1.4 % Invalid Interpretation Code 0.0 - 2.5 % AO Workflow SS Eosinophil, Absolute 0.5 103/mcL Invalid Interpretation Code 0.0 - 0.4 10^3/mcL AO Workflow SS Eosinophils/100 WBC (Bld) 4.5 % Invalid Interpretation Code 0.0 - 7.0 % AO Workflow SS Erythrocyte distribution width (RBC) [Ratio] 13.4 % Invalid Interpretation Code 11.5 - 14.5 % AO Workflow SS Hematocrit (Bld) [Volume fraction] 39.1 % Invalid Interpretation Code 37.0 - 47.0 % AO Workflow SS Hemoglobin (Bld) [Mass/Vol] 13.2 G/dL Invalid Interpretation Code 12.0 - 16.0 G/dL AO Workflow SS Lymphocyte, Absolute 1.4 103/mcL Invalid Interpretation Code 0.8 - 3.9 10^3/mcL AO Workflow SS Lymphocytes/100 WBC (Bld) 13.1 % Invalid Interpretation Code 10.0 - 50.0 % AO Workflow SS MCH (RBC) [Entitic mass] 34.8 pg Invalid Interpretation Code 27.0 - 31.2 pg AO Workflow SS MCHC 33.8 G/dL Invalid Interpretation Code 33.0 - 37.0 G/dL AO Workflow SS MCV (RBC) [Entitic vol] 103.2 fL Invalid Interpretation Code 80.0 - 94.0 fL AO Workflow SS Monocyte, Absolute 1.0 103/mcL Invalid Interpretation Code 0.2 - 1.0 10^3/mcL AO Workflow SS Monocytes/100 WBC (Bld) 8.8 % Invalid Interpretation Code 1.7 - 13.0 % AO Workflow SS Neutrophil, Absolute 8.0 103/mcL Invalid Interpretation Code 2.9 - 6.2 10^3/mcL AO Workflow SS Neutrophils/100 WBC (Bld) 72.2 % Invalid Interpretation Code 37.0 - 80.0 % AO Workflow SS Platelet mean volume (Bld) [Entitic vol] 10.3 fL Invalid Interpretation Code 7.4 - 10.4 fL AO Workflow SS Platelets (Bld) [#/Vol] 255 103/mcL Invalid Interpretation Code 130 - 400 10^3/mcL AO Workflow SS RBC (Bld) [#/Vol] 3.79 106/mcL Invalid Interpretation Code 4.20 - 5.40 10^6/mcL AO Workflow SS WBC (Bld) [#/Vol] 11.1 103/mcL Invalid Interpretation Code 4.6 - 10.8 10^3/mcL AO Workflow SS LABORATORYOrdered By: SYSTEM SYSTEM on 06-22-2022 GFR 64 ml/min/1.73sqm Invalid Interpretation Code AO Chemistry S GFR Non- 52 ml/min/1.73sqm Invalid Interpretation Code AO Chemistry S Basophil percentageon 2021 Chloride [Moles/Vol] 103 mmol/L 98-107 [facility] Work Phone: Glucose [Mass/Vol] 176 mg/dL 74-106 [facility] Work Phone: Comment on above: Fasting Glucose resu lt greater than or equal to 126 mg/dL suggests DIABETES MELLITUS per A.D.A. criteria. Potassium [Moles/Vol] 4.1 mmol/L 3.5-5.1 [facility] Work Phone: Sodium [Moles/Vol] 135 mmol/L 136-145 [facility] Work Phone: Glucose Glucometer (BldC) [M ass/Vol]on 12-01-2021 Glucose [Mass/Vol] 250 mg/dL 74-106 [facility] Work Phone: Comment on above: MANAGEMENT OF PATIEN T CARE PER NURSING PROTOCOL Laboratory - Chemistry and C hemistry - challengeon 12-01-2021 CO2 [Moles/Vol] 24.0 mmol/L 21.0-32.0 [facility] Work Phone: Urea nitrogen/Creatinine [Mass ratio] 13.9 mg/mg 10-20 [facility] Work Phone: No Panel Informationon 12-01 Estimated Creatinine Clearance Calc 44.08 ml/min [facility] Work Phone: Estimated GFR (MDRD) Amer 81 mL/min >60 [facility] Work Phone: Comment on above: GFR Calc Estimated GFR (MDRD) Non-Af Amer 67 mL/min >60 [facility] Work Phone: Comment on above: Non- GFR Calc Serum or plasma calcium jd urement (mass/volume)on 12-01-2021 Calcium [Mass/Vol] 8.7 mg/dL 8.5-10.1 [facility] Work Phone: Serum or plasma creatinine m easurement (mass/volume)on 12-01-2021 Creatinine [Mass/Vol] 0.87 mg/dL 0.55-1.02 [facility] Work Phone: Comment on above: The validity of the calculated GFR & GFRAA in patients over 70 years has not been determined. Clinical correlation is essential. Serum or plasma urea nitroge n measurement (mass/volume)on 12-01-2021 Urea nitrogen [Mass/Vol] 12 mg/dL 7-18 [facility] Work Phone: Thin prep Papanicolaou smear with manual screeningon 12-01-2021 Thin prep Papanicolaou smear with manual screening 8 5-15 [facility] Work Phone: Absolute lymphocyte counton 11-30-2021 Lymphocytes Auto (Unsp spec) [#/Vol] 1.74 10*3/uL 0.83-4.51 [facility] Work Phone: Basophil percentageon 2021 Basophils/100 WBC (Bld) 0.8 % 0-1 [facility] Work Phone: [phone] Eosinophils/100 WBC (Bld) 2.7 % 0-5 [facility] Work Phone: Neutrophils (Bld) [#/Vol] 8.1 10*3/uL 2.0-7.7 [facility] Work Phone: [phone] Neutrophils/100 WBC (Bld) 68.3 % 47-70 [facility] Work Phone: [phone] WBC (Bld) [#/Vol] 11.9 10*3/uL 4.4-11.0 [facility] Work Phone: Blood erythrocytes count (nu mber/volume)on 11-30-2021 RBC (Bld) [#/Vol] 3.36 10*6/uL 4.2-5.4 [facility] Work Phone: Blood hemoglobin measurement (mass/volume)on 11-30-2021 Hemoglobin (Bld) [Mass/Vol] 11.3 g/dL 12.0-15.0 [facility] Work Phone: Blood lymphocytes/100 leukoc yteson 11-30-2021 Lymphocytes/100 WBC (Bld) 14.7 % 19-41 [facility] Work Phone: [phone] Blood monocytes/100 leukocyt eson 11-30-2021 Monocytes/100 WBC (Bld) 9.6 % 0-10 [facility] Work Phone: Blood platelet mean volumeon 11-30-2021 Platelet mean volume (Bld) [Entitic vol] 11.3 fL 6.2-12.0 [facility] Work Phone: [phone] Determination of erythrocyte mean corpuscular volume (MCV)on 11-30-2021 MCV (RBC) [Entitic vol] 101.2 fL 81-99 [facility] Work Phone: [phone] Hematocrit Auto (Bld) [Volum e fraction]on 11-30-2021 Hematocrit (Bld) [Volume fraction] 34.0 % 37-47 [facility] Work Phone: Laboratory - Chemistry and C hemistry - challengeon 11-30-2021 Magnesium [Mass/Vol] 1.7 mg/dL 1.6-2.6 [facility] Work Phone: Laboratory - Hematology and Cell countson 11-30-2021 Erythrocyte distribution width (RBC) [Entitic vol] 47.6 fL 35.1-43.9 [facility] Work Phone: Erythrocyte distribution width (RBC) [Ratio] 12.9 % 11.6-14.6 [facility] Work Phone: Immature granulocytes/100 WBC (Bld) 3.900 % 0.0-0.9 [facility] Work Phone: Comment on above: IG% - Immature Granu locytes (promyelocytes, myelocytes and metamyelocytes) > 1% indicates that a LEFT SHIFT is Present. MCH (RBC) [Entitic mass] 33.6 pg 27.0-32.0 [facility] Work Phone: Nucleated RBC/100 WBC (Bld) [Ratio] 0 % 0-5 [facility] Work Phone: MCHC Auto (RBC) [Mass/Vol]on 11-30-2021 MCHC (RBC) [Mass/Vol] 33.2 g/dL 32-36 [facility] Work Phone: Platelets bldon 11-30-2021 Platelets (Bld) [#/Vol] 278 10*3/uL 150-450 [facility] Work Phone: Whole blood hemoglobin A1c/t otal hemoglobin ratio (mass fraction)on 11-30-2021 HbA1c (Bld) [Mass fraction] 8.5 % 3.8-5.6 [facility] Work Phone: Comment on above: Normal < 5.7 % Predi abetic 5.7 - 6.4 % Diabetic >or= 6.5 % Please note range changes. Basophil percentageon 2021 Bilirubin [Mass/Vol] 0.50 mg/dL 0.20-1.00 [facility] Work Phone: Comment on above: For patients on eltr ombopag therapy, use of Dimension [place] TBIL is not recommended. Protein [Mass/Vol] 7.1 g/dL 6.4-8.2 [facility] Work Phone: Laboratory - Chemistry and C hemistry - challengeon 11-29-2021 ALP [Catalytic activity/Vol] 96 U/L 45-117 [facility] Work Phone: ALT [Catalytic activity/Vol] 40 U/L 13-56 [facility] Work Phone: Globulin (S) [Mass/Vol] 4.1 g/dL 2.2-4.2 [facility] Work Phone: Natriuretic peptide B (Bld) [Mass/Vol] 9.0 pg/mL 0-100 [facility] Work Phone: No Panel Informationon 11-29 SARS-CoV-2 & FLU Antigen (Rapid) [facility] Work Phone: Troponin I High Sensitivity 6 pg/mL 3.0-54.0 [facility] Work Phone: Comment on above: Please Note: New Desiree t Units and Gender Specific Reference Ranges. For more information see Policy Stat Procedure [place] High Sensitivity Troponin (TNIH) and attachments. Serum or plasma albumin jd urement (mass/volume)on 11-29-2021 Albumin [Mass/Vol] 3.0 g/dL 3.2-5.0 [facility] Work Phone: Serum or plasma albumin/glob ulin mass ratioon 11-29-2021 Albumin/Globulin [Mass ratio] 0.7 {ratio} 0.9-2.4 [facility] Work Phone: Thin prep Papanicolaou smear with manual screeningon 11-29-2021 Thin prep Papanicolaou smear with manual screening 31 U/L 15-37 [facility] Work Phone: Basophil percentageon 2021 Chloride [Moles/Vol] 102 mmol/L 98-107 [facility]: Glucose [Mass/Vol] 295 mg/dL 74-106 [facility] Work Phone: Comment on above: Glucose result great er than or equal to 200 mg/dLsuggests DIABETES MELLITUS per A.D.A. criteria. Potassium [Moles/Vol] 4.2 mmol/L 3.5-5.1 [facility] Work [facility]: Sodium [Moles/Vol] 136 mmol/L 136-145 [facility] Work Phone: WBC (Bld) [#/Vol] 15.8 10*3/uL 4.4-11.0 [facility] Work Phone: Blood erythrocytes count (nu mber/volume)on 11-21-2021 RBC (Bld) [#/Vol] 3.42 10*6[facility]uL [facility].2-5.[facility]: Blood hemoglobin measurement (mass/volume)on 11-21-2021 Hemoglobin (Bld) [Mass/Vol] 11.5 g/dL 12.0-15.0 [facility] Work Phone: Blood platelet mean volumeon 11-21-2021 Platelet mean volume (Bld) [Entitic vol] 11.1 fL 6.2-12.0 [facility] Work Phone: Determination of erythrocyte mean corpuscular volume (MCV)on 11-21-2021 MCV (RBC) [Entitic vol] 103.5 fL 81-99 [facility] Work Phone: Hematocrit Auto (Bld) [Volum e fraction]on 11-21-2021 Hematocrit (Bld) [Volume fraction] 35.4 % 37-47 [facility] Work Phone: Laboratory - Chemistry and C hemistry - challengeon 11-21-2021 CO2 [Moles/Vol] 25.0 mmol/L 21.0-32.0 [facility] Work Phone: Urea nitrogen/Creatinine [Mass ratio] 15.7 mg/mg 10-20 [facility] Work Phone: Laboratory - Hematology and Cell countson 11-21-2021 Erythrocyte distribution width (RBC) [Entitic vol] 49.8 fL 35.1-43.9 [facility] Work Phone: Erythrocyte distribution width (RBC) [Ratio] 13.2 % 11.6-14.6 [facility] Work Phone: MCH (RBC) [Entitic mass] 33.6 pg 27.0-32.0 [facility] Work Phone: MCHC Auto (RBC) [Mass/Vol]on 11-21-2021 MCHC (RBC) [Mass/Vol] 32.5 g/dL 32-36 [facility] Work Phone: No Panel Informationon 11-21 Estimated GFR (MDRD) Amer 59 mL/min >60 [facility] Work Phone: Comment on above: GFR Calc Estimated GFR (MDRD) Non-Af Amer 49 mL/min >60 [facility] Work Phone: Comment on above: Non- GFR Calc Platelets bldon 11-21-2021 Platelets (Bld) [#/Vol] 308 10*3/uL 150-450 [facility] Work Phone: Serum or plasma calcium jd urement (mass/volume)on 11-21-2021 Calcium [Mass/Vol] 9.1 mg/dL 8.5-10.1 [facility] Work Phone: Serum or plasma creatinine m easurement (mass/volume)on 11-21-2021 Creatinine [Mass/Vol] 1.15 mg/dL 0.55-1.02 [facility] Work Phone: Comment on above: The validity of the calculated GFR & GFRAA in patients over 70 years has not been determined. Clinical correlation is essential. Serum or plasma urea nitroge n measurement (mass/volume)on 11-21-2021 Urea nitrogen [Mass/Vol] 18 mg/dL 7-18 [facility] Work Phone: Thin prep Papanicolaou smear with manual screeningon 11-21-2021 Thin prep Papanicolaou smear with manual screening 9 5-15 [facility] Work Phone: Laboratory - Microbiology an d Antimicrobial susceptibilityon 11-18-2021 SARS-CoV-2 (COVID-19) RNA PRIYANKA+probe Ql (Unsp spec) Not detected Not Detect [facility] Work Phone: Comment on above: Normal Reference Ran ge: Not DetectedMethod:(RT-PCR) real-time reverse transcriptase PCRLuminex VeriWave Instrument*The Food and Drug Administration (FDA) has issued an Emergency Use Authorization (EAU) for the VeriWave SARS-CoV-2 Assay for the rapid detection of the virus that causes COVID-19. This test has been validated, but the FDAs independent review of this validation is pending.*Negative results do not preclude infection and should not be used as the sole basis for treatment or patient management. Optimum specimen types and timing for peak viral levels during infections caused by SARS-CoV-2 have not been determined. Collection of multiple specimens from the same patient may be necessary to detect the virus. The possibility of a false negative result should be considered if the patient has clinical presentation or has had recent exposure. No Panel Informationon 11-18 Influenza Types A,B Direct FA (RACH) [facility] Work Phone: Laboratory - Drug toxicology on 10-08-2021 Amphetamines Ql (U) Negative [facility] Work Phone: Benzodiazepines Ql (U) Negative [facility] Work Phone: Cannabinoids Screen Ql (U) Negative [facility] Work Phone: Cocaine Ql (U) Negative [facility] Work Phone: Opiates Ql (U) Positive [facility] Work Phone: No Panel Informationon 10-08 MDMA (Ecstasy) Screen Negative [facility] Work Phone: Miscellaneous Test See comment [facility] Work Phone: Comment on above: [id number] 6+OXYCODONE-B UND (ng/mL) DRUG RESULT SCREEN CUTOFF____ Amphetamines,Urine Negative ng/mL 1000 Amphetamine test includes Amphetamine and Methamphetamine.Barbiturates Negative ng/mL 200Benzodiazepines Negative ng/mL 200Cannabinoid Negative ng/mL 20Cocaine (Metab) Negative ng/mL 300Opiates Positive ng/mL 300 Opiates test includes Codeine, Morphine, Hydromorphone, Hydrocodone. Codeine Negative 300 Morphine Negative 300 Hydromorphone Negative 300 Hydrocodone PositiveHydrocodone Conf,MS,UR 366 ng/mL 300Oxycodone/Oxymorphone,Urine Negative ng/mL 300 Test includes Oxydodone and Oxymorphone. TESTING PERFORMED AT [facility]. ORIGINAL REPORT ON FILE IN LAB CONTAINS ADDITIONAL TEST SITE INFORMATION. Urine Barbiturates Screen Negative [facility] Work Phone: Urine Drug Screen Comment [facility] Work Phone: Comment on above: CONFIRMATORY TESTING FOR ALL POSITIVE URINE DRUG SCREENRESULTS WILL ONLY BE SENT OUT UPON PHYSICIAN ORDER. VISTA Urine Drug Screen methods provide only preliminaryanalytical test results. A more specific alternate chemicalmethod must be used in order to obtain a confirmedanalytical result. Gas chromatography/mass spectrometery(GC/MS) is the preferred confirmatory method. Clinicalconsideration and professional judgement should be appliedto any drug of abuse test result, particularly whenpreliminary positive results are used. URINE TCA TESTING MUST BE ORDERED SEPARATELY. USE TESTMNEMONIC: [facility] Urine Methadone Screen Negative [facility] Work Phone: Urine phencyclidine (PCP) de tectionon 10-08-2021 Phencyclidine Ql (U) Negative [facility] Work Phone: Glucose Glucometer (BldC) [M ass/Vol]on 08-20-2021 Glucose [Mass/Vol] 114 mg/dL 70-110 [facility] Work Phone: Comment on above: MANAGEMENT OF PATIEN T CARE PER NURSING PROTOCOL Absolute lymphocyte counton 08-17-2021 Lymphocytes Auto (Unsp spec) [#/Vol] 1.84 10*3/uL 0.83-4.51 [facility] Work Phone: Basophil percentageon 2021 Basophils/100 WBC (Bld) 0.9 % 0-1 [facility] Work Phone: Chloride [Moles/Vol] 101 mmol/L 98-107 [facility] Work Phone: Eosinophils/100 WBC (Bld) 4.9 % 0-5 [facility] Work Phone: Glucose [Mass/Vol] 102 mg/dL 74-106 [facility] Work Phone: Comment on above: Fasting Glucose resu lt from 100 to 125 mg/dL suggests IMPAIRED HOMEOSTASIS per A.D.A. criteria. Neutrophils (Bld) [#/Vol] 5.2 10*3/uL 2.0-7.7 [facility] Work Phone: Neutrophils/100 WBC (Bld) 61.5 % 47-70 [facility] Work Phone: Potassium [Moles/Vol] 4.4 mmol/L 3.5-5.1 [facility] Work Phone: Sodium [Moles/Vol] 130 mmol/L 136-145 [facility] Work Phone: [phone] WBC (Bld) [#/Vol] 8.5 10*3/uL 4.4-11.0 [facility] Work Phone: Blood erythrocytes count (nu mber/volume)on 08-17-2021 RBC (Bld) [#/Vol] 3.20 10*6[facility].2[facility]5.[facility]: Blood hemoglobin measurement (mass/volume)on 08-17-2021 Hemoglobin (Bld) [Mass/Vol] 10.5 g/dL 12.0-15.0 [facility] Work Phone: Blood lymphocytes/100 leukoc yteson 08-17-2021 Lymphocytes/100 WBC (Bld) 21.8 % 19-41 [facility] Work Phone: Blood monocytes/100 leukocyt eson 08-17-2021 Monocytes/100 WBC (Bld) 9.2 % 0-10 [facility] Work Phone: Blood platelet mean volumeon 08-17-2021 Platelet mean volume (Bld) [Entitic vol] 10.6 fL 6.2-12.0 [facility] Work Phone: Determination of erythrocyte mean corpuscular volume (MCV)on 08-17-2021 MCV (RBC) [Entitic vol] 100.3 fL 81-99 [facility] Work Phone: Hematocrit Auto (Bld) [Volum e fraction]on 08-17-2021 Hematocrit (Bld) [Volume fraction] 32.1 % 37-47 [facility] Work Phone: Laboratory - Chemistry and C hemistry - challengeon 08-17-2021 CO2 [Moles/Vol] 23.0 mmol/L 21.0-32.0 [facility] Work Phone: Urea nitrogen/Creatinine [Mass ratio] 14.0 mg/mg 10-20 [facility] Work Phone: Laboratory - Hematology and Cell countson 08-17-2021 Erythrocyte distribution width (RBC) [Entitic vol] 50.1 fL 35.1-43.9 [facility] Work Phone: Erythrocyte distribution width (RBC) [Ratio] 13.5 % 11.6-14.6 [facility] Work Phone: Immature granulocytes/100 WBC (Bld) 1.700 % 0.0-0.9 [facility] Work Phone: Comment on above: IG% - Immature Granu locytes (promyelocytes, myelocytes and metamyelocytes) > 1% indicates that a LEFT SHIFT is Present. MCH (RBC) [Entitic mass] 32.8 pg 27.0-32.0 [facility] Work Phone: Nucleated RBC/100 WBC (Bld) [Ratio] 0 % 0-5 [facility] Work Phone: MCHC Auto (RBC) [Mass/Vol]on 08-17-2021 MCHC (RBC) [Mass/Vol] 32.7 g/dL 32-36 [facility] Work Phone: No Panel Informationon 08-17 Estimated Creatinine Clearance Calc 46.56 ml/min [facility] Work Phone: Estimated GFR (MDRD) Amer 83 mL/min >60 [facility] Work Phone: Comment on above: GFR Calc Estimated GFR (MDRD) Non-Af Amer 68 mL/min >60 [facility] Work Phone: Comment on above: Non- GFR Calc Platelets bldon 08-17-2021 Platelets (Bld) [#/Vol] 458 10*3/uL 150-450 [facility] Work Phone: Serum or plasma calcium jd urement (mass/volume)on 08-17-2021 Calcium [Mass/Vol] 8.8 mg/dL 8.5-10.1 [facility] Work Phone: Serum or plasma creatinine m easurement (mass/volume)on 08-17-2021 Creatinine [Mass/Vol] 0.86 mg/dL 0.55-1.02 [facility] Work Phone: Comment on above: The validity of the calculated GFR & GFRAA in patients over 70 years has not been determined. Clinical correlation is essential. Serum or plasma urea nitroge n measurement (mass/volume)on 08-17-2021 Urea nitrogen [Mass/Vol] 12 mg/dL 7-18 [facility] Work Phone: Thin prep Papanicolaou smear with manual screeningon 08-17-2021 Thin prep Papanicolaou smear with manual screening 6 5-15 [facility] Work Phone: Basophil percentageon 2021 Basophil percentage 0 SEEN /hpf [facility] Work Phone: Bilirubin Test strip Ql (U)o n 08-14-2021 Bilirubin Ql (U) Negative Negative [facility] Work Phone: Culture, urineon 08-14-2021 Bacteria identified Cx Nom (U) Culture exhibits no growth. [facility] Work Phone: Ketones Test strip Ql (U)on 08-14-2021 Ketones Ql (U) Negative Negative [facility] Work Phone: Mucus LM Ql (Urine sed)on Mucus Ql (Urine sed) 0 SEEN /hpf [facility] Work Phone: Nitrite Test strip Ql (U)on 08-14-2021 Nitrite Ql (U) Negative Negative [facility] Work Phone: Protein Test strip Ql (U)on 08-14-2021 Protein Ql (U) Negative Negative [facility] Work Phone: Squamous epithelial cells de tection in urine sediment by light microscopyon 08-14-2021 Epithelial cells.squamous LM Ql (Urine sed) 0 SEEN /hpf [facility] Work Phone: Urine blood detectionon RBC Ql (U) Negative Negative [facility] Work Phone: RBC Ql (U) 0 SEEN /hpf [facility] Work Phone: Urine clarityon 08-14-2021 Clarity (U) Clear Clear [facility] Work Phone: Urine color determinationon 08-14-2021 Color (U) Yellow Yellow [facility] Work Phone: Urine glucose detectionon Glucose Ql (U) Normal mg/dl Normal [facility] Work Phone: Urine leukocyte esterase det ection by dipstickon 08-14-2021 Leukocyte esterase Test strip Ql (U) Negative Negative [facility] Work Phone: Urine pHon 08-14-2021 pH (U) 6.0 [pH] [facility] Work Phone: Urine sediment bacteria coun t by microscopy (number/high power field)on 08-14-2021 Bacteria LM.HPF (Urine sed) [#/Area] 0 /[HPF] None Seen [facility] Work Phone: Urine specific gravity measu rementon 08-14-2021 Specific gravity (U) [Rel density] 1.010 [facility] Work Phone: Urobilinogen Auto test strip Ql (U)on 08-14-2021 Urobilinogen Ql (U) Normal mg/dl Normal [facility] Work Phone: No Panel Informationon 08-13 SARS-CoV-2 Antigen (Rapid) [facility] Work Phone: Absolute lymphocyte counton 08-07-2021 Lymphocytes Auto (Unsp spec) [#/Vol] 1.53 10*3/uL 0.83-4.51 [facility] Work Phone: Comment on above: Previous reported re sult: 1.45 X10^3/uLEdited by: LUIS E on 08/07/21:0649 AMENDED REPORT 08/07/21 0649 Absolute Lymph previously reported as: 1.45 X10^3/uL Basophil percentageon 2021 Sodium [Moles/Vol] 129 mmol/L 136-145 [facility] Work Phone: Basophil percentage 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 Work [facility]: Comment on above: Previous reported re sult: 69.4 %Edited by: LUIS E on 08/07/21:0641 AMENDED REPORT 08/07/21640 NEUT% previously reported as: 69.4 % Previous reported re sult: 4.4 %Edited by: LUIS E on 08/07/21:0642 AMENDED REPORT 08/07/21641 EO% previously reported as: 4.4 % Previous reported re sult: 0.8 %Edited by: LUIS E on 08/07/21:0642 AMENDED REPORT 08/07/21641 BASO% previously reported as: 0.8 % Bilirubin [Mass/Vol] 0.30 mg/dL 0.20-1.00 [facility] Work Phone: Comment on above: For patients on eltr ombopag therapy, use of Dimension [place] TBIL is not recommended. Chloride [Moles/Vol] 102 mmol/L 98-107 [facility] Work Phone: Glucose [Mass/Vol] 106 mg/dL 74-106 [facility] Work Phone: Comment on above: Fasting Glucose resu lt from 100 to 125 mg/dL suggests IMPAIRED HOMEOSTASIS per A.D.A. criteria. Neutrophils (Bld) [#/Vol] 70.7 10*3/uL 2.0-7.7 [facility] Work Phone: Comment on above: Previous reported re sult: 9.7 X10^3/uLEdited by: LUIS E on 08/07/21:0648 AMENDED REPORT 08/07/21647 Absolute Neut previously reported as: 9.7 H X10^3/uL Potassium [Moles/Vol] 4.0 mmol/L 3.5-5.1 [facility] Work Phone: Protein [Mass/Vol] 5.7 g/dL 6.4-8.2 [facility] Work Phone: WBC (Bld) [#/Vol] 13.9 10*3/uL 4.4-11.0 [facility] Work Phone: Blood band neutrophil count as percentage of total leukocyteson 08-07-2021 Band form neutrophils/100 WBC (Bld) 1 % 0-5 [facility] Work Phone: [phone] Blood eosinophils/100 leukoc yteson 08-07-2021 Eosinophils/100 WBC (Bld) 4 % 0-5 [facility] Work Phone: Blood erythrocytes count (nu mber/volume)on 08-07-2021 RBC (Bld) [#/Vol] 3.04 10*6/uL 4.2-5.4 [facility] Work Phone: Blood hemoglobin measurement (mass/volume)on 08-07-2021 Hemoglobin (Bld) [Mass/Vol] 9.9 g/dL 12.0-15.0 [facility] Work Phone: Blood lymphocytes/100 leukoc yteson 08-07-2021 Lymphocytes/100 WBC (Bld) 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 [facility] Work Phone: Comment on above: Previous reported re sult: 10.4 %Edited by: LUIS E on 08/07/21:0642 AMENDED REPORT 08/07/21641 LY% previously reported as: 10.4 L % Lymphocytes/100 WBC (Bld) 11 % 19-41 [facility] Work Phone: Blood metamyelocytes/100 echo kocyteson 08-07-2021 Metamyelocytes/100 WBC (Bld) 3 % 0-1 [facility] Work Phone: Blood monocytes/100 leukocyt eson 08-07-2021 Monocytes/100 WBC (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) [employer]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 [facility] Work Phone: Comment on above: Previous reported re sult: 8.6 %Edited by: LUIS E on 08/07/21:0642 AMENDED REPORT 08/07/21641 MONO% previously reported as: 8.6 % Monocytes/100 WBC (Bld) 8 % 0-10 [facility] Work Phone: Blood platelet adequacy dete ction by light microscopyon 08-07-2021 Platelets LM Ql (Bld) [facility] Work [facility]: Blood platelet mean volumeon 08-07-2021 Platelet mean volume (Bld) [Entitic vol] 10.8 fL 6.2-12.0 [facility] Work Phone: Blood segmented neutrophils/ 100 leukocyteson 08-07-2021 Segmented neutrophils/100 WBC (Bld) 71 % 47-70 [facility] Work Phone: Determination of erythrocyte mean corpuscular volume (MCV)on 08-07-2021 MCV (RBC) [Entitic vol] 100.0 fL 81-99 [facility] Work Phone: Glucose Glucometer (BldC) [M ass/Vol]on 08-07-2021 Glucose [Mass/Vol] 149 mg/dL 70-110 [facility] Work Phone: Comment on above: MANAGEMENT OF PATIEN T CARE PER NURSING PROTOCOL Hematocrit Auto (Bld) [Volum e fraction]on 08-07-2021 Hematocrit (Bld) [Volume fraction] 30.4 % 37-47 [facility] Work Phone: Laboratory - Chemistry and C hemistry - challengeon 08-07-2021 ALP [Catalytic activity/Vol] 89 U/L 45-117 [facility] Work Phone: ALT [Catalytic activity/Vol] 25 U/L 13-56 [facility] Work Phone: CO2 [Moles/Vol] 21.0 mmol/L 21.0-32.0 [facility] Work Phone: Globulin (S) [Mass/Vol] 3.7 g/dL 2.2-4.2 [facility] Work Phone: Urea nitrogen/Creatinine [Mass ratio] 18.1 mg/mg 10-20 [facility] Work Phone: Laboratory - Hematology and Cell countson 08-07-2021 Erythrocyte distribution width (RBC) [Entitic vol] 49.0 fL 35.1-43.9 [facility] Work Phone: Erythrocyte distribution width (RBC) [Ratio] 13.3 % 11.6-14.6 [facility] Work Phone: MCH (RBC) [Entitic mass] 32.6 pg 27.0-32.0 [facility] Work Phone: Myelocytes/100 WBC (Bld) 2 % 0-0 [facility] Work Phone: Nucleated RBC/100 WBC (Bld) [Ratio] 0 % 0-5 [facility] Work Phone: MCHC Auto (RBC) [Mass/Vol]on 08-07-2021 MCHC (RBC) [Mass/Vol] 32.6 g/dL 32-36 [facility] Work Phone: No Panel Informationon 08-07 Estimated Creatinine Clearance Calc 40.04 ml/min [facility] Work Phone: Estimated GFR (MDRD) Amer 93 mL/min >60 [facility] Work Phone: Comment on above: GFR Calc Estimated GFR (MDRD) Non-Af Amer 77 mL/min >60 [facility] Work Phone: Comment on above: Non- GFR Calc Immature Granulocyte % (Auto) BO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 [facility] Work Phone: Comment on above: Previous reported re sult: 6.400 %Edited by: LUIS E on 08/07/21:0642 AMENDED REPORT 08/07/21 0642 IM GRAN % previously reported as: 6.400 H % IG% - Immature Granulocytes (promyelocytes, myelocytes and metamyelocytes) > 1% indicates that a LEFT SHIFT is Present. Platelets bldon 08-07-2021 Platelets (Bld) [#/Vol] 342 10*3/uL 150-450 [facility] Work Phone: RBC morphologyon 08-07-2021 RBC morphology finding Nom (Bld) NORM C+C NORMAL NORM C&C [facility] Work Phone: Review by pathologiston 07-12 Pathologist review Alejandro (Unsp spec) [Interp] Reviewed [facility] Work Phone: Comment on above: Previous reported re sult: Alexa cuevas Edited by: RGOPATIENCE on 08/07/21:1245Neutrophilic leukocytosis with slight left shift. Macrocytic anemia.Clinical correlation suggested.Gabe Rodriguez D.O. 08/07/21 AMENDED REPORT 08/07/21 1245 PATH REV previously reported as: Alexa cuevas Serum or plasma albumin jd urement (mass/volume)on 08-07-2021 Albumin [Mass/Vol] 2.0 g/dL 3.2-5.0 [facility] Work Phone: Serum or plasma albumin/glob ulin mass ratioon 08-07-2021 Albumin/Globulin [Mass ratio] 0.5 {ratio} 0.9-2.4 [facility] Work Phone: Serum or plasma calcium jd urement (mass/volume)on 08-07-2021 Calcium [Mass/Vol] 8.0 mg/dL 8.5-10.1 [facility] Work Phone: Serum or plasma creatinine m easurement (mass/volume)on 08-07-2021 Creatinine [Mass/Vol] 0.78 mg/dL 0.55-1.02 [facility] Work Phone: Comment on above: The validity of the calculated GFR & GFRAA in patients over 70 years has not been determined. Clinical correlation is essential. Serum or plasma urea nitroge n measurement (mass/volume)on 08-07-2021 Urea nitrogen [Mass/Vol] 14 mg/dL 7-18 [facility] Work Phone: Thin prep Papanicolaou smear with manual screeningon 08-07-2021 Thin prep Papanicolaou smear with manual screening 15 U/L 15-37 [facility] Work Phone: Thin prep Papanicolaou smear with manual screening 7 5-15 [facility] Work Phone: Total cell counton 2 Cells counted Molgen (Bld/Tiss) [#] 100 MANUAL DIFF [facility] Work Phone: Basophil percentageon 2021 Basophil percentage 10-25 SEEN /hpf [facility] Work Phone: Bilirubin Test strip Ql (U)o n 08-06-2021 Bilirubin Ql (U) Negative Negative [facility] Work Phone: Culture, urineon 08-06-2021 Bacteria identified Cx Nom (U) Pseudomonas aeroginosa [facility] Work Phone: Ketones Test strip Ql (U)on 08-06-2021 Ketones Ql (U) Negative Negative [facility] Work Phone: Laboratory - Chemistry and C hemistry - challengeon 08-06-2021 Lipase [Catalytic activity/Vol] 96 U/L 73-393 [facility] Work Phone: Laboratory - Hematology and Cell countson 08-06-2021 Anisocytosis Ql (Bld) 1+ [facility] Work Phone: Macrocytes detectionon 08-06 Macrocytes Ql (Bld) 1+ [facility] Work Phone: Mucus LM Ql (Urine sed)on Mucus Ql (Urine sed) 0 SEEN /hpf [facility] Work Phone: Nitrite Test strip Ql (U)on 08-06-2021 Nitrite Ql (U) Negative Negative [facility] Work Phone: No Panel Informationon 08-06 SARS-CoV-2 Antigen (Rapid) [facility] Work Phone: Protein Test strip Ql (U)on 08-06-2021 Protein Ql (U) 15 mg/dl Negative [facility] Work Phone: Squamous epithelial cells de tection in urine sediment by light microscopyon 08-06-2021 Epithelial cells.squamous LM Ql (Urine sed) 0-5 SEEN /hpf [facility] Work Phone: Urine blood detectionon 07-12 RBC Ql (U) 250 /ul Negative [facility] Work Phone: RBC Ql (U) 10-25 SEEN /hpf [facility] Work Phone: Urine clarityon 08-06-2021 Clarity (U) Clear Clear [facility] Work Phone: Urine color determinationon 08-06-2021 Color (U) Yellow Yellow [facility] Work Phone: Urine glucose detectionon Glucose Ql (U) Normal mg/dl Normal [facility] Work Phone: Urine leukocyte esterase det ection by dipstickon 08-06-2021 Leukocyte esterase Test strip Ql (U) 500 /ul Negative [facility] Work Phone: Urine pHon 08-06-2021 pH (U) 6.0 [pH] [facility] Work Phone: Urine sediment bacteria coun t by microscopy (number/high power field)on 08-06-2021 Bacteria LM.HPF (Urine sed) [#/Area] 2 /[HPF] None Seen [facility] Work Phone: Urine specific gravity measu rementon 08-06-2021 Specific gravity (U) [Rel density] 1.015 [facility] Work Phone: Urobilinogen Auto test strip Ql (U)on 08-06-2021 Urobilinogen Ql (U) Normal mg/dl Normal [facility] Work Phone: Absolute lymphocyte counton 08-02-2021 Lymphocytes Auto (Unsp spec) [#/Vol] 1.31 10*3/uL 0.83-4.51 [facility] Work Phone: Basophil percentageon 2021 Basophils/100 WBC (Bld) 0.3 % 0-1 [facility] Work Phone: Bilirubin [Mass/Vol] 0.40 mg/dL 0.20-1.00 [facility] Work Phone: Comment on above: For patients on eltr ombopag therapy, use of Dimension [place] TBIL is not recommended. Chloride [Moles/Vol] 108 mmol/L 98-107 [facility] Work Phone: Eosinophils/100 WBC (Bld) 2.2 % 0-5 [facility] Work Phone: Glucose [Mass/Vol] 127 mg/dL 74-106 [facility] Work Phone: Comment on above: Fasting Glucose resu lt greater than or equal to 126 mg/dL suggests DIABETES MELLITUS per A.D.A. criteria. Neutrophils (Bld) [#/Vol] 11.6 10*3/uL 2.0-7.7 [facility] Work Phone: Neutrophils/100 WBC (Bld) 80.8 % 47-70 [facility] Work Phone: Potassium [Moles/Vol] 4.1 mmol/L 3.5-5.1 [facility] Work Phone: Protein [Mass/Vol] 5.7 g/dL 6.4-8.2 [facility] Work Phone: Sodium [Moles/Vol] 136 mmol/L 136-145 [facility] Work Phone: WBC (Bld) [#/Vol] 14.3 10*3/uL 4.4-11.0 [facility] Work Phone: [phone] Blood erythrocytes count (nu mber/volume)on 08-02-2021 RBC (Bld) [#/Vol] 3.02 10*6/uL 4.2-5.4 [facility] Work Phone: Blood hemoglobin measurement (mass/volume)on 08-02-2021 Hemoglobin (Bld) [Mass/Vol] 9.9 g/dL 12.0-15.0 [facility] Work Phone: [phone] Blood lymphocytes/100 leukoc yteson 08-02-2021 Lymphocytes/100 WBC (Bld) 9.2 % 19-41 [facility] Work Phone: Blood monocytes/100 leukocyt eson 08-02-2021 Monocytes/100 WBC (Bld) 7.0 % 0-10 [facility] Work Phone: Blood platelet mean volumeon 08-02-2021 Platelet mean volume (Bld) [Entitic vol] 11.0 fL 6.2-12.0 [facility] Work Phone: Determination of erythrocyte mean corpuscular volume (MCV)on 08-02-2021 MCV (RBC) [Entitic vol] 100.7 fL 81-99 [facility] Work Phone: Glucose Glucometer (BldC) [M ass/Vol]on 08-02-2021 Glucose [Mass/Vol] 172 mg/dL 70-110 [facility] Work Phone: Comment on above: MANAGEMENT OF PATIEN T CARE PER NURSING PROTOCOL Hematocrit Auto (Bld) [Volum e fraction]on 08-02-2021 Hematocrit (Bld) [Volume fraction] 30.4 % 37-47 [facility] Work Phone: Laboratory - Chemistry and C hemistry - challengeon 08-02-2021 ALP [Catalytic activity/Vol] 80 U/L 45-117 [facility] Work Phone: ALT [Catalytic activity/Vol] 23 U/L 13-56 [facility] Work Phone: CO2 [Moles/Vol] 22.0 mmol/L 21.0-32.0 [facility] Work Phone: Globulin (S) [Mass/Vol] 3.7 g/dL 2.2-4.2 [facility] Work Phone: Urea nitrogen/Creatinine [Mass ratio] 19.4 mg/mg 10-20 [facility] Work Phone: Laboratory - Hematology and Cell countson 08-02-2021 Erythrocyte distribution width (RBC) [Entitic vol] 51.8 fL 35.1-43.9 [facility] Work Phone: Erythrocyte distribution width (RBC) [Ratio] 13.9 % 11.6-14.6 [facility] Work Phone: Immature granulocytes/100 WBC (Bld) 0.500 %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 10-03-[address] Dionne Magaña Work Phone: [facility] Work Phone: Start: 09-17-2023 End: 09-17-2023 Emergency department patient visit CHANTELL CAMERON MD Facility:[facility] Start: 09-17-2023 End: 09-17-2023 Emergency department patient visit CHANTELL CAMERON MD [facility] Start: 08-22-2023 End: 08-22-[address] Dionne Magaña Work Phone: [facility] Work Phone: Start: 08-22-2023 End: 08-22-[address] Dionne Magaña Work Phone: [facility] Work Phone: Start: 08-08-2023 End: 08-08-[address] Dionne Magaña Work Phone: [facility] Work Phone: Start: 08-01-2023 End: 08-01-[address] Dionne Magaña Work Phone: [facility] Work Phone: Start: 08-01-2023 End: 08-01-[address] Dionne Magaña Work Phone: [facility], Specimen Work Phone: Start: 08-01-2023 End: 08-01-[address] Dionne Magaña Work Phone: [facility] Work Phone: Start: 07-27-2023 End: 07-27-2023 ambulatory DIONNE MAGAÑA Facility:[facility] Start: 07-21-2023 End: 07-22-2023 ambulatory DIONNE MAGAÑA MD Facility:[facility] Start: 07-21-2023 End: 07-21-2023 Patient encounter procedure DIONNE MAGAÑA MD [facility] Start: 07-21-2023 End: 07-21-[address] Dionne Magaña Work Phone: [facility] Work Phone: Start: 07-15-2023 End: 07-15-2023 ambulatory DIONNE MAGAÑA Facility:[facility] Start: 07-13-2023 End: 07-13-[address] Dionne Magaña Work Phone: [facility] Work Phone: Start: 07-13-2023 End: 07-13-[address] Dionne Magaña Work Phone: [facility] Work Phone: Start: 07-01-2023 End: 07-01-[address] Dionne Magaña Work Phone: [facility] Work Phone: Start: 06-29-2023 End: 06-29-[address] Dionne Magaña Work Phone: [facility] Work Phone: Start: 06-29-2023 End: 06-29-[address] Dionne Magaña Work Phone: [facility] Work Phone: Start: 06-24-2023 End: 06-24-[address] Dionne Magaña Work Phone: [facility] Work Phone: Start: 06-24-2023 End: 06-24-[address] Dionne Magaña Work Phone: [facility] Work Phone: Start: 06-20-2023 End: 06-20-2023 [facility] Start: 06-20-2023 End: 06-20-2023 Emergency department patient visit [facility] Start: 06-15-2023 Telephone encounter Giovana Escalera BIOCHEMISTRY TECHNOLOGIST.FALAFEL CART COOK Work Phone: [facility] Comment on above: Results Start: 06-15-2023 End: 06-15-[address] Dionne Magaña Work Phone: [facility] Work Phone: Start: 06-14-2023 Telephone encounter Giovana Escalera BIOCHEMISTRY TECHNOLOGIST.FALAFEL CART COOK Work Phone: [facility] Comment on above: Results Start: 06-13-2023 End: 06-13-2023 ambulatory DIONNE MAGAÑA Facility:[facility] Start: 06-13-2023 End: 06-13-2023 Patient encounter procedure Ai Moura APRN.FALAFEL CART COOK Work Phone: [facility] Comment on above: FUO (fever of unknow n origin) (Primary Dx); Viral syndrome Start: 06-06-2023 End: 06-06-[address] Dionne Magaña Work Phone: [facility] Work Phone: Start: 06-06-2023 End: 06-06-[address] Dion[facility] Magaña [facility] Start: 05-26-2023 End: 05-26-[address] Dionne Magaña Work Phone: [facility] Work Phone: Start: 05-26-2023 End: 05-26-[address] Dion[facility] Magaña [facility] Start: 04-28-2023 End: 04-28-[address] Dionne Magaña Work Phone: [facility] Work Phone: Start: 04-13-2023 End: 04-13-[address] Dionne Magaña Work Phone: [facility] Work Phone: Start: 02-15-2023 End: 02-15-2023 ambulatory DIONNE MAGAÑA Facility:[facility] Start: 02-15-2023 End: 02-15-2023 Patient encounter procedure Mali Ramirez APRN.FALAFEL CART COOK Work Phone: [facility] Comment on above: Puncture wound of mu ltiple sites of left upper extremity, initial encounter (Primary Dx) Start: 02-07-2023 End: 02-07-2023 Subsequent hospital visit by physician Xr [facility] [place] Work Phone: Radiology Comment on above: Pain [R52] Start: 02-07-2023 End: 02-07-2023 ambulatory DIONNE MAGAÑA Facility:[facility] Start: 02-07-2023 End: 02-07-2023 Patient encounter procedure J Luis Sanches APRN.FALAFEL CART COOK Work Phone: [facility] Comment on above: Pain (Primary Dx) Start: 02-03-2023 Telephone encounter Manuel pham PA-C Work Phone: [facility] Comment on above: Results Start: 01-31-2023 End: 01-31-2023 ambulatory DIONNE MAGAÑA Facility:[facility] Start: 01-18-2023 End: 01-18-[address] Oscar Adhikari Work Phone: [facility] Work Phone: Start: 01-18-2023 End: 01-18-[address] Oscar Adhikari Work Phone: [facility] Start: 01-10-2023 End: 01-10-[address] Oscar Adhikari Work Phone: [facility] Work Phone: Start: 01-10-2023 End: 01-10-[address] Oscar Adhikari Work Phone: [facility] Work Phone: Start: 08-25-2022 End: 08-25-2022 ambulatory [facility] Work Phone: Start: 08-25-2022 End: 08-25-2022 Patient encounter procedure [facility] Start: 07-30-2022 End: 07-30-2022 ambulatory [facility] Work Phone: Start: 07-30-2022 End: 07-30-2022 Patient encounter procedure [facility] Start: 07-06-2022 End: 07-09-[address] MIKEY OROPEZA MD [facility] Start: 06-28-2022 End: 06-28-[address] Oscar Adhikari Work Phone: [facility] Work Phone: Start: 06-28-2022 End: 06-28-[address] Oscar Adhikari Work Phone: [facility] Start: 06-22-2022 End: 06-22-[address] MIKEY OROPEZA MD [facility] Start: 05-26-2022 End: 05-26-[address] Oscar Adhikari Work Phone: [facility] Work Phone: Start: 05-26-2022 End: 05-26-[address] Oscar Adhikari Work Phone: [facility]-Cat Scan, [facility] Start: 05-10-2022 End: 05-10-[address] Oscar Adhikari Work Phone: [facility]-MRI - [facility] Start: 03-24-2022 End: 03-24-[address] Oscar Adhikari Work Phone: [facility] Start: 12-01-2021 Non-patient / Non-visit Dr. Victor M Adhikari Work Phone: [facility] Start: 11-30-2021 Non-patient / Non-visit Dr. Victor M Adhikari Work Phone: [facility] Start: 11-29-2021 End: 12-01-2021 Evaluation and management of inpatient Dr. Oscar Adhikari Work Phone: [facility] Surgical 3 Start: 11-29-2021 Non-patient / Non-visit Dr. Victor M Adhikari Work Phone: [facility] Start: 11-21-2021 End: 11-21-[address] Oscar Adhikari Work Phone: [facility]-Radiology, [facility] Start: 11-18-2021 End: 11-18-[address] Oscar Adhikari Work Phone: [facility], Specimen Start: 10-08-2021 End: 10-08-[address] Oscar Adhikari Work Phone: [facility] Start: 09-25-2021 End: 09-25-[address] Oscar Adhikari Work Phone: [facility]-Radiology, [place] Start: 08-07-2021 Non-patient / Non-visit Dr. Victor M Adhikari Work Phone: [facility] Start: 08-06-2021 Non-patient / Non-visit Dr. Victor M Adhikari Work Phone: [facility] Start: 08-06-2021 End: 08-07-2021 Evaluation and management of inpatient Dr. Oscar Adhikari [facility] Start: 08-02-2021 End: 08-20-2021 Evaluation and management of inpatient Dr. Oscar Adhikari Work Phone: [facility]Transitional Care Unit Start: 08-02-2021 Non-patient / Non-visit Dr. Victor M Adhikari Work Phone: [facility] Start: 08-01-2021 Non-patient / Non-visit Dr. Victor M Adhikari Work Phone: [facility] Start: 07-31-2021 End: 08-02-2021 Evaluation and management of inpatient Dr. Oscar [facility]ik[facility] Start: 07-31-2021 Non-patient / Non-visit Dr. Victor M Adhikari Work Phone: [facility] Start: 07-30-2021 Non-patient / Non-visit Dr. Victor M Adhikari Work Phone: [facility] Start: 07-29-2021 Non-patient / Non-visit Dr. Victor M Adhikari Work Phone: [facility] Start: 07-20-[address] Oscar Adhikari Work Phone: [facility] Start: 07-20-2021 Non-patient / Non-visit Dr. Victor M Adhikari Work Phone: [facility] Start: 07-08-[address] Oscar Adhikari Work Phone: [facility], Specimen Start: 06-24-[address] Oscar Adhikari Work Phone: [facility], Specimen Start: 06-19-[address] Oscar Adhikari Work Phone: [facility], [facility] Start: 06-05-[address] Oscar Adhikari Work Phone: [facility] Start: 12-25-2017 End: 12-25-2017 Emergency department patient visit INC [facility] Facility:[facility] Procedures Date Procedure Procedure Detail Performing Clinician Start: 02-04-[address] Estuardo SAUCEDA Work Phone: Start: 02-04-[address] Dionne Magaña MD Work Phone: Start: 02-04-2025 CT angiography of he ad and neck Dr. Dionne Magaña MD Work Phone: Start: 01-17-2025 Dual energy X-ray absorptiometry Dr. Dionne Magaña MD Work Phone: Start: 12-02-2023 Antibody screen DIONNE MAGAÑA Comment on above: Order Comment: Speci men Type: BLOOD SPECIMEN Ordering Facility: [facility] Address: [address] [place] [address] Performed By: #### 2 [id number], [id number], 2777-1, [id number] #### [facility] CLIA [id number] [address] [place], [place] [id number] [place] Start: 08-01-2023 Investigation of tra nsfusion reaction Dr. Dionne Magaña Work Phone: Start: 08-01-2023 Microbial culture, routine Dr. Dionne Magaña Work Phone: Start: 06-29-[address] Roc Magaña Work Phone: Start: 06-13-2023 Urnls dip stick/tabl et rgnt auto w/o microscopy Ai Moura BIOCHEMISTRY TECHNOLOGIST.FALAFEL CART COOK Work Phone: Start: 06-13-2023 STREP A MOLECULAR (POC) [facility] Provider Start: 02-07-2023 Radex foot complete minimum 3 views J Luis Sanches BIOCHEMISTRY TECHNOLOGIST.FALAFEL CART COOK Work Phone: Start: 05-26-2022 CT of upper limb wit hout contrast Dr. Oscar Adhikari Work Phone: Start: 05-10-2022 MRI of joint of lowe r extremity Dr. Oscar Adhikari Work Phone: Start: 11-29-2021 Plain chest X-ray Dr. Lillie Adhikari Work Phone: Start: 11-29-2021 SARS-CoV-2 & FLU Ant igen (Rapid) Dr. Oscar Adhikari Work Phone: Start: 11-21-2021 Plain chest X-ray Dr. Lillie Adhikari Work Phone: Start: 11-18-2021 Influenza Types A,B Direct FA (RACH) Dr. Oscar Adhikari Work Phone: Start: 11-18-2021 End: 11-18-2021 Respiratory syncytial virus antigen assay Dr. Oscar Adhikari Work Phone: Start: 09-25-2021 Plain X-ray of tibia and fibula Dr. Oscar Adhikari Work Phone: Start: 08-14-[address] Oscar Adhikari Work Phone: Start: 08-14-2021 Plain X-ray abdomen Dr. Oscar Adhikari Work Phone: Start: 08-13-2021 SARS-CoV-2 Antigen (Rapid) Dr. Oscar Adhikari Work Phone: Start: 08-06-2021 Plain chest X-ray Dr. Lillie Adhikari Work Phone: Start: 08-06-2021 CT of abdomen and pe lvis without contrast Dr. Oscar Adhikari Work Phone: Start: 08-06-2021 Diagnostic radiograp hy of abdomen Dr. Oscar Adhikari Work Phone: Start: 08-06-2021 SARS-CoV-2 Antigen (Rapid) Dr. Oscar Adhikari Work Phone: Start: 08-06-[address] Oscar Adhikari Work Phone: Start: 07-31-2021 Bacteria identified in Blood by Culture Dr. Oscar Adhikari Work Phone: Start: 07-31-[address] Oscar Adhikari Work Phone: Start: 07-31-2021 Plain chest X-ray Dr. Lillie Adhikari Work Phone: Start: 07-31-2021 Plain X-ray abdomen Dr. Oscar Adhikari Work Phone: Start: 07-30-2021 Plain X-ray abdomen Dr. Oscar Adhikari Work Phone: Start: 07-29-2021 Plain X-ray of shoulder Dr. 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 Oscar Adhikari Work Phone: Start: 07-21-2021 Plain chest X-ray Dr. Lillie Adhikari Work Phone: Start: 07-20-2021 Nasal Screen MRSA/MSSA Dr. Oscar Adhikari Work Phone: Start: 06-19-2021 CT of upper limb wit hout contrast Dr. 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 MIKEY OROPEZA MD Comment on above: right Total shoulder replacement Magdi OROPEZA MD Comment on above: left Plan of Treatment Date Care Activity Detail Author Start: 07-01-2033 Urine microalbumin profile DTa P,Tdap,Td Vaccine (6 - Td or Tdap) [facility] Start: 05-13-2031 Urine microalbumin profile [facility] Start: 12-04-2026 Diabetes Screening Diabetes Screenin g [facility] Start: 06-17-2025 ambulatory Ambulatory Facility:[facility] Start: 12-23-2024 BP Controlled (<130/80) BP Con trolled (<130/80) [facility] Start: 12-21-2024 CBC W Auto Different ial panel - Blood [facility] Start: 12-21-2024 Comprehensive metabo lic 2000 panel - Serum or Plasma [facility] Start: 12-21-2024 Lipid 1996 panel - S hoa or Plasma [facility] Start: 12-21-[address] [facility] Start: 12-21-2024 Thyroid stimulating hormone measurement [facility] Start: 12-21-2024 Thyroxine measurement [facility] Start: 03-11-2024 Covid-19 Vaccine ( season) Covid-19 Vaccine ( season) [facility] Start: 03-11-2024 Influenza vaccination Influenza Vacc ine (#1) [facility] Start: 02-16-2024 BP CONTROLLED (<130/80) BP CON TROLLED (<130/80) [facility] Start: 02-08-2024 BP CONTROLLED (<130/80) BP CON TROLLED (<130/80) [facility] Start: 11-18-2023 End: 11-18-2023 ambulatory 11/18/2023 3:30 PM EDT OT/PT/Speech Visit [facility] Occupation [facility] [address] [place] [address] Hermelinda Baker, OT/L Self pay driving [facility] Occupation [facility] Comment on above: Self pay driving Start: 11-15-2023 Procedure [facility] Start: 10-03-2023 Patient referral [facility] Work Phone: Start: 09-11-2023 Covid-19 Vaccine ( season) Covid-19 Vaccine ( season) [facility] Start: 08-01-2023 Patient referral [facility] Work Phone: Start: 07-11-2023 Advance Directive Discussion Advance Directive Discussion [facility] Start: 07-11-2023 Behavioral Health Screening Behavioral Health Screening [facility] Start: 05-26-2023 Procedure [facility] Start: 03-11-2023 Influenza vaccination INFLUENZA (#1) [facility] Start: 07-11-2022 ADVANCE DIRECTIVE DISCUSSION ADVANCE DIRECTIVE DISCUSSION [facility] Start: 07-11-2022 DEPRESSION ASSESSMENT DEPRESSION ASS ESSMENT [facility] Start: 06-28-2022 Procedure [facility] Work Phone: Start: 02-04-2022 COVID-19 VACCINE (6 - Pfizer series) COVID-19 VACCINE (6 - Pfizer series) [facility] Start: 12-31-2021 Pneumococcal Vaccine : 65+ (2 - PCV) Pneumococcal Vaccine: 65+ (2 - PCV) [facility] Start: 12-31-2021 Pneumococcal Vaccine : 65+ (2 of 2 - PCV) Pneumococcal Vaccine: 65+ (2 of 2 - PCV) [facility] Start: 12-31-2021 PNEUMOCOCCAL: 65+ (2 - PCV) PNEUMOCOCCAL: 65+ (2 - PCV) [facility] Start: 01-01-2021 Diabetes Screening Diabetes Screenin g [facility] Start: 12-30-2020 DIABETES SCREEN DIABETES SCREEN [facility] Start: 12-30-2020 Diabetes Screening Diabetes Screenin g [facility] Start: 2008 BONE DENSITY BONE DENSITY [facility] Start: 2008 Bone Density Screening Bone Density Screening [facility] Start: 2008 Screening for osteoporosis Bone Dens ity Screening [facility] Start: 1961 ANNUAL PCP 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 [place] DISEASE VISIT ANNUAL PCP TEAM CHRONIC DISEASE VISIT [facility] Start: 1961 Anxiety Screening Anxiety Screening [facility] Start: 1961 BP CONTROLLED (<130/80) BP CON TROLLED (<130/80) [facility] Start: 1961 Depression Screening Depression Scre ening [facility] Start: 1961 SPIROMETRY SPIROMETRY [facility] Alanine aminotransfe rase [Enzymatic activity/volume] in Serum or Plasma [facility] Albumin [Mass/volume ] in Serum or Plasma [facility] ALERE STREP A TEST (AG) ALERE ST REP A TEST (AG) Lab Routine FUO (fever of unknown origin) Ordered: 06/13/2023 [facility] Work Phone: Comment on above: Ordered: 06/13/2023 Alkaline phosphatase [Enzymatic activity/volume] in Serum or Plasma [facility] Anion gap in Serum o r Plasma [facility] Anion gap measurement [facility] Bacteria identified in Urine by Culture URINE CULTURE Microbiology Routine FUO (fever of unknown origin) 06/13/2023 7:29 PM EST [facility] Work Phone: Bilirubin, total measurement [facility] BUN/Creatinine ratio [facility] BUN/Creatinine ratio [facility] Calcium [Mass/volume ] in Serum or Plasma [facility] Calcium [Mass/volume ] in Serum or Plasma [facility] Carbon dioxide, tota l [Moles/volume] in Central venous blood [facility] Carbon dioxide, tota l [Moles/volume] in Serum or Plasma [facility] Chloride [Moles/volu me] in Serum or Plasma [facility] Cholesterol [Mass/vo lume] in Serum or Plasma [facility] Cholesterol in HDL [Mass/volume] in Serum or Plasma [facility] Creatinine [Mass/vol ume] in Serum or Plasma [facility] Creatinine [Moles/vo lume] in Serum or Plasma [facility] Erythrocyte mean corpuscular volume determination [facility] Glucose [Mass/volume ] in Serum or Plasma [facility] Glucose [Mass/volume ] in Serum or Plasma [facility] Hematocrit [Volume Fraction] of Blood [facility] Hemoglobin [Mass/vol ume] in Blood [facility] Influenza virus A an d B RNA and SARS-CoV-2 (COVID-19) N gene panel - Respiratory specimen by PRIYANKA with probe detection COVID & INFLUENZA A/B NAAT, ROUTINE Microbiology Routine FUO (fever of unknown origin) Viral syndrome 06/13/2023 5:30 PM [facility] Work Phone: Leukocytes [#/volume ] in Blood [facility] Low density lipoprot ein cholesterol measurement [facility] Mean corpuscular hemoglobin concentration determination [facility] Mean corpuscular hemoglobin determination [facility] Measurement of renal function [facility] Measurement of renal function [facility] Neutrophil count [facility] Neutrophil percent differential count [facility] Patient Education Hyponatremia D c ED CYSTITIS Female Adult [facility] Work Phone: Patient referral [facility] Work Phone: Platelets [#/volume] in Blood [facility] Potassium [Moles/vol ume] in Serum or Plasma [facility] Potassium measurement [facility] Procedure [facility] Work Phone: Red blood cell count [facility] Red cell distributio n width determination [facility] Serum chloride measurement [facility] Sodium [Moles/volume ] in Serum or Plasma [facility] Sodium measurement [facility] Total cholesterol:HD L ratio measurement [facility] Total protein measurement [facility] Triglycerides measurement [facility] Urea nitrogen [Mass/volume] in Serum or Plasma [facility] Urea nitrogen [Mass/volume] in Serum or Plasma [facility] US Heart [facility] VLDL cholesterol measurement [facility] XR Ribs GE 3 Views a nd Chest PA [facility] Immunizations Immunization Date Immunization Notes Care Provider Fa [facility] 03-29-2024 influenza, high dose seasonal, preservative-free Dr. Dionne Magaña MD Work Phone: [facility] 07-01-2023 tetanus toxoid, redu stef diphtheria toxoid, and acellular pertussis vaccine, adsorbed Dr. Dionne Magaña Work Phone: [facility] 05-13-2023 Pfizer Covid-19 (Comirnaty) Dr. Dionne Magaña Work Phone: [facility] 04-13-2023 influenza, injectabl e, quadrivalent, preservative free Dr. Dionne Magaña Work Phone: [facility] 04-13-2023 influenza virus vacc ine, unspecified formulation Xr [place] Work Phone: [facility] 04-04-2023 RSV Adult BiValent (Abrysvo) Dr. Dionne Magaña Work Phone: [facility] 05-21-2022 influenza virus vacc ine, unspecified formulation DR MIKEY OROPEZA MD [facility] 05-21-2022 influenza, injectabl e, quadrivalent, contains preservative Manuel Wise PA-C Work Phone: [facility] 05-21-2022 influenza, injectabl e, quadrivalent, preservative free Dr. Dionne Magaña Work Phone: [facility] 05-21-2022 influenza, seasonal, injectable Dr. Oscar Adhikari Work Phone: [facility] 12-10-2021 SARS-CoV-2 mRNA (tozinameran) vaccine DR MIKEY OROPEZA MD [facility] 11-10-[address] MIEKY OROPEZA MD [facility] 07-24-2021 SARS-CoV-2 mRNA (tozinameran) vaccine DR MIKEY OROPEZA MD [facility] 07-22-2021 Covid (Pfizer) Dr. Oscar Howard sen Work Phone: [facility] 05-13-2021 tetanus toxoid, redu stef diphtheria toxoid, and acellular pertussis vaccine, adsorbed DR MIKEY OROPEZA MD [facility] 04-07-2021 influenza, injectabl e, quadrivalent, preservative free Dr. Dionne Magaña Work Phone: [facility] 04-07-2021 influenza, seasonal, injectable Dr. Oscar Adhikari Work Phone: [facility] 02-25-2021 influenza virus vacc ine, unspecified formulation DR MIKEY OROPEZA MD [facility] 02-25-2021 influenza, injectabl e, quadrivalent, contains preservative Manuel Wise PA-C Work Phone: [facility] 02-25-2021 influenza, injectabl e, quadrivalent, preservative free Dr. Dionne Magaña Work Phone: [facility] 02-25-2021 influenza, seasonal, injectable Dr. Oscar Adhikari Work Phone: [facility] 12-31-2020 pneumococcal polysaccharide vaccine, [address] MIKEY OROPEZA MD [facility] 12-31-[address] Olivia Adhikari Work Phone: [facility] Work Phone: 12-31-2020 pneumococcal vaccine , unspecified formulation Dr. Oscar Adhikari Work Phone: [facility] 11-07-2020 Covid (Pfizer) Dr. Oscar mace Work Phone: [facility] Comment on above: Result Comment: 2021: [id number] 10-17-2020 Covid (Pfizer) Dr. Oscar mace Work Phone: [facility] Comment on above: Result Comment: 2021: [id number] 08-11-2020 SARS-CoV-2 mRNA (tozinameran) vaccine DR MIKEY OROPEZA MD [facility] 07-18-2020 tetanus toxoid, redu stef diphtheria toxoid, and acellular pertussis vaccine, adsorbed DR MIKEY OROPEZA MD [facility] 05-27-[address] Olivia Adhikari Work Phone: [facility] Work Phone: 05-27-2020 pneumococcal vaccine , unspecified formulation Dr. Oscar Adhikari Work Phone: [facility] 02-28-2020 influenza virus vacc ine, unspecified formulation DR MIKEY OROPEZA MD [facility] 02-28-2020 influenza, injectabl e, quadrivalent, contains preservative Manuel Wise PA-C Work Phone: [facility] 02-28-2020 influenza, injectabl e, quadrivalent, preservative free Dr. Dionne Magaña Work Phone: [facility] 02-28-2020 influenza, seasonal, injectable Dr. Oscar Adhikari Work Phone: [facility] 06-28-[address] MIKEY OROPEZA MD [facility] 04-26-2019 tetanus toxoid, redu stef diphtheria toxoid, and acellular pertussis vaccine, adsorbed DR MIKEY OROPEZA MD [facility] 04-26-[address] MIKEY OROPEZA MD [facility] 10-23-[address] MIKEY OROPEZA MD [facility] 09-05-2018 influenza, injectabl e, quadrivalent, preservative free Dr. Dionne Magaña Work Phone: [facility] 09-05-2018 influenza, seasonal, injectable Dr. Oscar Adhikari Work Phone: [facility] 05-04-2017 tetanus toxoid, redu stef diphtheria toxoid, and acellular pertussis vaccine, adsorbed DR MIKEY OROPEZA MD [facility] 08-19-2011 pneumococcal polysaccharide vaccine, [address] MIKEY OROPEZA MD [facility] Payers Date Payer Category Payer Self-pay [id number] 2023 Medicare [id number] 2023 Unknown [id number] 2015 Medicare [id number] 2015 Medicare [id number] 1945 Unknown [id number] 1945 Unknown [id number] 1945 Unknown [id number] [id number] Private Health Insurance [facility] [id number] Unknown [id number] Unknown [id number] Unknown AARP [facility] ADV [id number] Unknown [id number] [id number] Unknown [id number] 2.16.840.1.514997.3.579.2.462 Unknown [id number] 2.16.840.1.018748.3.579.2.462 Unknown [id number] 2.16.840.1.183710.3.579.2.462 Unknown [id number] 2..840.1.171824.3.579.2.462 Unknown [id number] 2..840.1.634023.3.579.2.462 Unknown [id number] 2.16.840.1.433896.3.579.2.462 Unknown [id number] 2.16.840.1.766656.3.579.2.462 Unknown [id number] 2.840.1.811064.3.579.2.462 Unknown [id number] 2.840.1.179236.3.579.2.462 Unknown [id number] 2.16.840.1.497305.3.579.2.462 Unknown [id number] 2.16.840.1.346987.3.579.2.462 Unknown [id number] 2.16.840.1.969250.3.579.2.462 Unknown [id number] 2.16840.1.416953.3.579.2.462 Unknown [id number] 2..840.1.454015.3.579.2.462 Unknown [id number] 2.16.840.1.800939.3.579.2.462 Unknown [id number] 2.16.840.1.904866.3.579.2.462 Unknown [id number] 2.16.840.1.107871.3.579.2.462 Unknown [id number] 2.16.840.1.928022.3.579.2.462 Unknown [id number] 2.16.840.1.878902.3.579.2.462 Unknown [id number] 2.16.840.1.835334.3.579.2.462 Unknown [id number] 2.16.840.1.199862.3.579.2.462 Unknown [id number] 2.16.840.1.809591.3.579.2.462 Unknown [id number] 2.16.840.1.992837.3.579.2.462 Unknown [id number] 2.16.840.1.698716.3.579.2.462 Social History Date Type Detail Facility [facility] Work Phone: Start: 08-06-2021 End: 09-29-2023 Tobacco smoking status NHIS Unknown if ever smoked [facility] Start: 06-19-2020 None [facility] Start: 11-13-2020 Homeless [facility] Start: 06-19-2020 Non-smoker [facility] Start: 1945 Sex Assigned At Female [facility] Start: 06-22-2022 End: 05-31-2024 Tobacco smoking status Never smoked tobacco (finding) [facility] Sex Assigned At Sex [facility] Start: 10-13-2015 Tobacco use and exposure Smokeless tobacco non-user [facility] Start: 01-31-2023 End: 02-07-2023 Alcohol intake Current non-drinker of alcohol (finding) [facility] Start: 01-31-2023 End: 07-31-2023 History of Social function [facility] Start: 01-31-2023 End: 02-07-2023 Tobacco use panel [facility] Start: 1945 Sex Assigned At Not on file C [facility] National Score (1-100), lower number is lower risk 64 [facility] Start: 06-19-2020 Lives Lives [facility] Medical Equipment Procedure Code Equipment Code Equipment Origin al Text Equipment Identifier Dates Minimally invasive total replacement of hip joint by anterior approach ([id number]) Ceramic femoral head prosthesis [id number] FDA Start: 01-21-2021 Minimally invasive total replacement of hip joint by anterior approach ([id number]) Coated hip femur prosthesis, modular [id number] FDA Start: 01-21-2021 Minimally invasive total replacement of hip joint by anterior approach ([id number]) Non-constrained polyethylene acetabular liner [id number] FDA Start: 01-21-2021 Minimally invasive total replacement of hip joint by anterior approach ([id number]) Acetabular shell [id number] FDA Start: 01-21-2021 Insertion, spinal cord stimulator, permanent ADAPTIVE STIMULATOR FDA Start: 02-22-2020 Insertion, spinal cord stimulator, permanent LEAD KIT FDA Start: 02-22-2020 Insertion, spinal cord stimulator, permanent LEAD KIT FDA Start: 02-22-2020 Insertion, spinal cord stimulator, permanent ADAPTIVE STIMULATOR FDA Start: 02-22-2020 Insertion, spinal cord stimulator, permanent LEAD KIT FDA Start: 02-22-2020 Insertion, spinal cord stimulator, permanent LEAD KIT FDA Start: 02-22-2020 Insertion, spinal cord stimulator, permanent ADAPTIVE STIMULATOR FDA Start: 02-22-2020 Insertion, spinal cord stimulator, permanent LEAD KIT FDA Start: 02-22-2020 Insertion, spinal cord stimulator, permanent LEAD KIT FDA Start: 02-22-2020 Insertion, spinal cord stimulator, permanent ADAPTIVE STIMULATOR FDA Start: 02-22-2020 Insertion, spinal cord stimulator, permanent LEAD KIT FDA Start: 02-22-2020 Insertion, spinal cord stimulator, permanent LEAD KIT FDA Start: 02-22-2020 Insertion, spinal cord stimulator, permanent ADAPTIVE STIMULATOR FDA Start: 02-22-2020 Insertion, spinal cord stimulator, permanent LEAD KIT FDA Start: 02-22-2020 Insertion, spinal cord stimulator, permanent LEAD KIT FDA Start: 02-22-2020 Insertion, spinal cord stimulator, permanent ADAPTIVE STIMULATOR FDA Start: 02-22-2020 Insertion, spinal cord stimulator, permanent LEAD KIT FDA Start: 02-22-2020 Insertion, spinal cord stimulator, permanent LEAD KIT FDA Start: 02-22-2020 Insertion, spinal cord stimulator, permanent ADAPTIVE STIMULATOR FDA Start: 02-22-2020 Insertion, spinal cord stimulator, permanent LEAD KIT FDA Start: 02-22-2020 Insertion, spinal cord stimulator, permanent LEAD KIT FDA Start: 02-22-2020 Insertion, spinal cord stimulator, permanent ADAPTIVE STIMULATOR FDA Start: 02-22-2020 Insertion, spinal cord stimulator, permanent LEAD KIT FDA Start: 02-22-2020 Insertion, spinal cord stimulator, permanent LEAD KIT FDA Start: 02-22-2020 Insertion, spinal cord stimulator, permanent ADAPTIVE STIMULATOR FDA Start: 02-22-2020 Insertion, spinal cord stimulator, permanent LEAD KIT FDA Start: 02-22-2020 Insertion, spinal cord stimulator, permanent LEAD KIT FDA Start: 02-22-2020 Insertion, spinal cord stimulator, permanent ADAPTIVE STIMULATOR FDA Start: 02-22-2020 Insertion, spinal cord stimulator, permanent LEAD KIT FDA Start: 02-22-2020 Insertion, spinal cord stimulator, permanent LEAD KIT FDA Start: 02-22-2020 Insertion, spinal cord stimulator, permanent ADAPTIVE STIMULATOR FDA Start: 02-22-2020 Insertion, spinal cord stimulator, permanent LEAD KIT FDA Start: 02-22-2020 Insertion, spinal cord stimulator, permanent LEAD KIT FDA Start: 02-22-2020 Insertion, spinal cord stimulator, permanent ADAPTIVE STIMULATOR FDA Start: 02-22-2020 Insertion, spinal cord stimulator, permanent LEAD KIT FDA Start: 02-22-2020 Insertion, spinal cord stimulator, permanent LEAD KIT FDA Start: 02-22-2020 Insertion, spinal cord stimulator, permanent ADAPTIVE STIMULATOR FDA Start: 02-22-2020 Insertion, spinal cord stimulator, permanent LEAD KIT FDA Start: 02-22-2020 Insertion, spinal cord stimulator, permanent LEAD KIT FDA Start: 02-22-2020 Insertion, spinal cord stimulator, permanent ADAPTIVE STIMULATOR FDA Start: 02-22-2020 Insertion, spinal cord stimulator, permanent LEAD KIT FDA Start: 02-22-2020 Insertion, spinal cord stimulator, permanent LEAD KIT FDA Start: 02-22-2020 Insertion, spinal cord stimulator, permanent ADAPTIVE STIMULATOR FDA Start: 02-22-2020 Insertion, spinal cord stimulator, permanent LEAD KIT FDA Start: 02-22-2020 Insertion, spinal cord stimulator, permanent LEAD KIT FDA Start: 02-22-2020 Insertion, spinal cord stimulator, permanent ADAPTIVE STIMULATOR FDA Start: 02-22-2020 Insertion, spinal cord stimulator, permanent LEAD KIT FDA Start: 02-22-2020 Insertion, spinal cord stimulator, permanent LEAD KIT FDA Start: 02-22-2020 Insertion, spinal cord stimulator, permanent ADAPTIVE STIMULATOR FDA Start: 02-22-2020 Insertion, spinal cord stimulator, permanent LEAD KIT FDA Start: 02-22-2020 Insertion, spinal cord stimulator, permanent LEAD KIT FDA Start: 02-22-2020 Insertion, spinal cord stimulator, permanent ADAPTIVE STIMULATOR FDA Start: 02-22-2020 Insertion, spinal cord stimulator, permanent LEAD KIT FDA Start: 02-22-2020 Insertion, spinal cord stimulator, permanent LEAD KIT FDA Start: 02-22-2020 Insertion, spinal cord stimulator, permanent ADAPTIVE STIMULATOR FDA Start: 02-22-2020 Insertion, spinal cord stimulator, permanent LEAD KIT FDA Start: 02-22-2020 Insertion, spinal cord stimulator, permanent LEAD KIT FDA Start: 02-22-2020 Insertion, spinal cord stimulator, permanent ADAPTIVE STIMULATOR FDA Start: 02-22-2020 Insertion, spinal cord stimulator, permanent LEAD KIT FDA Start: 02-22-2020 Insertion, spinal cord stimulator, permanent LEAD KIT FDA Start: 02-22-2020 Insertion, spinal cord stimulator, permanent ADAPTIVE STIMULATOR FDA Start: 02-22-2020 Insertion, spinal cord stimulator, permanent LEAD KIT FDA Start: 02-22-2020 Insertion, spinal cord stimulator, permanent LEAD KIT FDA Start: 02-22-2020 Insertion, spinal cord stimulator, permanent ADAPTIVE STIMULATOR FDA Start: 02-22-2020 Insertion, spinal cord stimulator, permanent LEAD KIT FDA Start: 02-22-2020 Insertion, spinal cord stimulator, permanent LEAD KIT FDA Start: 02-22-2020 Insertion, spinal cord stimulator, permanent ADAPTIVE STIMULATOR FDA Start: 02-22-2020 Insertion, spinal cord stimulator, permanent LEAD KIT FDA Start: 02-22-2020 Insertion, spinal cord stimulator, permanent LEAD KIT FDA Start: 02-22-2020 Insertion, spinal cord stimulator, permanent ADAPTIVE STIMULATOR FDA Start: 02-22-2020 Insertion, spinal cord stimulator, permanent LEAD KIT FDA Start: 02-22-2020 Insertion, spinal cord stimulator, permanent LEAD KIT FDA Start: 02-22-2020 Insertion, spinal cord stimulator, permanent ADAPTIVE STIMULATOR FDA Start: 02-22-2020 Insertion, spinal cord stimulator, permanent LEAD KIT FDA Start: 02-22-2020 Insertion, spinal cord stimulator, permanent LEAD KIT FDA Start: 02-22-2020 Insertion, spinal cord stimulator, permanent ADAPTIVE STIMULATOR FDA Start: 02-22-2020 Insertion, spinal cord stimulator, permanent LEAD KIT FDA Start: 02-22-2020 Insertion, spinal cord stimulator, permanent LEAD KIT FDA Start: 02-22-2020 Insertion, spinal cord stimulator, permanent ADAPTIVE STIMULATOR FDA Start: 02-22-2020 Insertion, spinal cord stimulator, permanent LEAD KIT FDA Start: 02-22-2020 Insertion, spinal cord stimulator, permanent LEAD KIT FDA Start: 02-22-2020 Insertion, spinal cord stimulator, permanent ADAPTIVE STIMULATOR FDA Start: 02-22-2020 Insertion, spinal cord stimulator, permanent LEAD KIT FDA Start: 02-22-2020 Insertion, spinal cord stimulator, permanent LEAD KIT FDA Start: 02-22-2020 Insertion, spinal cord stimulator, permanent ADAPTIVE STIMULATOR FDA Start: 02-22-2020 Insertion, spinal cord stimulator, permanent LEAD KIT FDA Start: 02-22-2020 Insertion, spinal cord stimulator, permanent LEAD KIT FDA Start: 02-22-2020 Medtronic Intell is Adaptive Stim FDA Start: 02-22-2020 PATCH,AMNION 2X3CM FDA Start: 06-17-2020 ([id number]) Uncoated shoulde r humeral stem prosthesis ()[id number] ()[id number] FDA Start: 07-29-2021 ([id number]) Reverse shoulder prosthesis base plate ()[id number] FDA Start: 07-29-2021 ([id number]) Stem-fixed humer al head prosthesis ()[id number] ()[id number] FDA Start: 07-29-2021 ([id number]) Stem-fixed humer al head prosthesis ()[id number] FDA Start: 07-29-2021 ([id number]) Stem-fixed humer al head prosthesis ()[id number] ()[id number] FDA Start: 07-29-2021 ([id number]) Reverse shoulder prosthesis head ()[id number] ()[id number] FDA Start: 07-29-2021 ([id number]) Total shoulder prosthesis ()[id number] ()[id number] FDA Start: 07-29-2021 ([id number]) Metallic reverse shoulder prosthesis cup ()[id number] ()[id number] FDA Start: 07-29-2021 Medtronic Intell is Adaptive Stim FDA Start: 02-22-2020 PATCH,AMNION 2X3CM FDA Start: 06-17-2020 Medtronic Intell is Adaptive Stim FDA Start: 02-22-2020 PATCH,AMNION 2X3CM FDA Start: 06-17-2020 Medtronic Intell is Adaptive Stim FDA Start: 02-22-2020 PATCH,AMNION 2X3CM FDA Start: 06-17-2020 Medtronic Intell is Adaptive Stim FDA Start: 02-22-2020 PATCH,AMNION 2X3CM FDA Start: 06-17-2020 Medtronic Intell is Adaptive Stim FDA Start: 02-22-2020 PATCH,AMNION 2X3CM FDA Start: 06-17-2020 Medtronic Intell is Adaptive Stim FDA Start: 02-22-2020 PATCH,AMNION 2X3CM FDA Start: 06-17-2020 Medtronic Intell is Adaptive Stim FDA Start: 02-22-2020 PATCH,AMNION 2X3CM FDA Start: 06-17-2020 Medtronic Intell is Adaptive Stim FDA Start: 02-22-2020 PATCH,AMNION 2X3CM FDA Start: 06-17-2020 Medtronic Intell is Adaptive Stim FDA Start: 02-22-2020 PATCH,AMNION 2X3CM FDA Start: 06-17-2020 Medtronic Intell is Adaptive Stim FDA Start: 02-22-2020 PATCH,AMNION 2X3CM FDA Start: 06-17-2020 Medtronic Intell is Adaptive Stim FDA Start: 02-22-2020 PATCH,AMNION 2X3CM FDA Start: 06-17-2020 Medtronic Intell is Adaptive Stim FDA Start: 02-22-2020 PATCH,AMNION 2X3CM FDA Start: 06-17-2020 Medtronic Intell is Adaptive Stim FDA Start: 02-22-2020 PATCH,AMNION 2X3CM FDA Start: 06-17-2020 Medtronic Intell is Adaptive Stim FDA Start: 02-22-2020 PATCH,AMNION 2X3CM FDA Start: 06-17-2020 Medtronic Intell is Adaptive Stim FDA Start: 02-22-2020 PATCH,AMNION 2X3CM FDA Start: 06-17-2020 Medtronic Intell is Adaptive Stim FDA Start: 02-22-2020 PATCH,AMNION 2X3CM FDA Start: 06-17-2020 Medtronic Intell is Adaptive Stim FDA Start: 02-22-2020 PATCH,AMNION 2X3CM FDA Start: 06-17-2020 Medtronic Intell is Adaptive Stim FDA Start: 02-22-2020 PATCH,AMNION 2X3CM FDA Start: 06-17-2020 Medtronic Intell is Adaptive Stim FDA Start: 02-22-2020 PATCH,AMNION 2X3CM FDA Start: 06-17-2020 Medtronic Intell is Adaptive Stim FDA Start: 02-22-2020 PATCH,AMNION 2X3CM FDA Start: 06-17-2020 Medtronic Intell is Adaptive Stim FDA Start: 02-22-2020 PATCH,AMNION 2X3CM FDA Start: 06-17-2020 Medtronic Intell is Adaptive Stim FDA Start: 02-22-2020 PATCH,AMNION 2X3CM FDA Start: 06-17-2020 Medtronic Intell is Adaptive Stim FDA Start: 02-22-2020 PATCH,AMNION 2X3CM FDA Start: 06-17-2020 Medtronic Intell is Adaptive Stim FDA Start: 02-22-2020 PATCH,AMNION 2X3CM FDA Start: 06-17-2020 Medtronic Intell is Adaptive Stim FDA Start: 02-22-2020 PATCH,AMNION 2X3CM FDA Start: 06-17-2020 Medtronic Intell is Adaptive Stim FDA Start: 02-22-2020 PATCH,AMNION 2X3CM FDA Start: 06-17-2020 Medtronic Intell is Adaptive Stim FDA Start: 02-22-2020 PATCH,AMNION 2X3CM FDA Start: 06-17-2020 Medtronic Intell is Adaptive Stim FDA Start: 02-22-2020 PATCH,AMNION 2X3CM FDA Start: 06-17-2020 Functional Status Date Assessment Result Facility 09-17-2023 Functional Status Independent Narayan [facility] 09-17-2023 Functional Status Repositions self [facility] 06-20-2023 Functional Status ID band on, Call device within reach, Bed in low position, Wheels locked, Upper/Half-Length side-rails up, Visitor at bedside, Safety level maintained [facility] 07-09-2022 Functional Status Room check performed [facility] 07-09-2022 [facility] Functional Status Supervised 1 Narayan [facility] 07-09-2022 Functional Status Narayan [facility] 07-09-2022 Functional Status Activity Statu s ADL Repositions self, Sleeping [facility] 07-08-2022 Functional [facility] Functional Status Narayan [facility] 07-08-2022 Functional Status Min A Narayan [facility] 07-08-2022 Functional Status Narayan [facility] 07-08-2022 Functional Status Linen Change Done [facility] 07-07-2022 Functional Status SCD Removed/Of f bilateral knee [facility] 07-07-2022 Functional Status None Narayan [facility] 07-07-2022 Functional Status Lunch Percent 75 [facility] 07-07-2022 Functional Status Narayan [facility] 07-07-2022 Functional Status Single level home [facility] 07-07-2022 Functional Status SCD On/Re-appl ied bilateral knee [facility] 07-07-2022 Functional Status Narayan [facility] 07-06-2022 Functional Status Narayan [facility] 07-06-2022 Functional Status Narayan [facility] 07-06-2022 Functional Status Dinner Percent 75 [facility] 07-06-2022 Functional Status [facility] 07-06-2022 Functional Status ice chips and sips take n [facility] 07-06-2022 [facility] Status [facility] 06-22-2022 Functional Status Sensory Deficits None A [facility] 12-01-2021 Functional status Chair [facility] Work Phone: 08-20-2021 Functional status Activity Ability Indepe ndent [facility] Work Phone: 08-16-2021 Functional status Patient Activity Chair [facility] Work Phone: 08-14-2021 Functional status Rolling Walker [facility] Work Phone: 08-07-2021 Functional status Patient Activity Chair [facility] Work Phone: 08-07-2021 Functional status Standby Assist [facility] Work Phone: 08-02-2021 Functional status Activity Abili ty With Assist of 1 [facility] Work Phone: 08-01-2021 Functional status Patient Activi ty Ambulates;Chair;Bedside Commode [facility] Work Phone: 07-31-2021 Functional status None [facility] Work Phone: Mental Status Date Assessment Result Facility 09-17-2023 Mental Status Orientation Oriented x 4 [facility] 06-20-2023 Mental Status Oriented x 4 [facility] 07-09-2022 Mental Status Orientation Oriented x 4 [facility] 07-09-2022 Mental Status [facility] 07-09-2022 Mental Status [facility] 07-08-2022 Mental Status Identifies self, Not oriented to place [facility] 07-07-2022 Mental Status [facility] 12-01-2021 Cognitive function Voice/Name [facility] Work Phone: 08-20-2021 Cognitive function Voice/Name [facility] Work Phone: 08-07-2021 Cognitive function Appropriate;Cooperativ e [facility] Work Phone: 08-07-2021 Cognitive function Voice/Name [facility] Work Phone: 08-02-2021 Cognitive function Voice/Name [facility] Work Phone: Clinical Notes 07-06-2022 to 04-24-2025 Note Date & Type Note Facility 04-24-2025 Progress note [facility] 04-24-2025 Progress note Note Date/Time April 24, 2025 4:03pm [facility] [address] [place] [address] OFFICE VISIT Date of Service: 04/24/25 MR#: [id number] Acct: [id number] Name: JERRELL STRICKLAND Rep #: [id number] : 1945 Provider: Dr. Dusty Harman MD Age/Sex: 79/F [place] [facility] [place]: Signed Intake Vital Signs 01/08/25 07:59 04/24/25 15:18 Height 5 ft 4 in Weight: 146 lb BP 183/64 H Position Sitting Respiration 16 Pulse 77 Pulse Source Monitor Temp 98.0 F Temp Source Temporal Pulse Oximetry (%) 98 Oxygen Delivery Method room air Intake Visit Reasons: Discuss Results Is patient in pain?: Yes Allergies clindamycin Allergy (Mild, Verified 04/24/25 15:20) rash codeine phosphate (From Tylenol-Codeine #3) Adverse Reaction (Severe, Verified 04/24/25 15:20) Nausea Medications ?Medication ?Instructions ?Recorded ?Confirmed ?Type albuterol sulfate 90 mcg/actuation 2 puff inhalation Q 6H PRN sob 11/29/21 04/24/25 History aerosol inhaler cholecalciferol (vitamin D3) 25 25 mcg PO DAILY 04/24/25 History mcg (1,000 unit) tablet (Vitamin D3) triamcinolone acetonide 55 mcg 1 spray intranasal QHS PRN allergy 11/29/21 04/24/25 History nasal spray aerosol (Nasacort) symptoms loperamide 2 mg tablet 2 mg PO Q6H PRN nausea and v omiting 01/10/23 04/24/25 History guaifenesin 600 mg tablet, 600 mg PO BID PRN cough 12/3104/24/25 History extended release 12 hr (Mucinex) mecobalamin (vitamin B12) 1,000 1,000 mcg PO DAILY #30 tabs 07/21/23 04/24/25 Rx mcg chewable tablet aspirin 81 mg chewable tablet 81 mg PO DAILY #30 tabs 12/22/23 04/24/25 Rx gabapentin 300 mg capsule 300 mg PO QHS #30 caps 01/3104/24/25 Rx fluticasone 500 mcg-salmeterol 50 1 ea inhalation BID 03/02/24 04/24/25 History mcg/dose blistr powdr for inhalation (Wixela Inhub) acetaminophen 325 mg capsule 650 mg PO Q6H PRN fever o r pain 04/27/24 04/24/25 History (Tylenol) ascorbic acid (vitamin C) 1,000 mg 0.5 g PO DAILY 04/1004/24/25 History capsule hydrocodone-acetaminophen 5-325mg 1 tab PO Q8H PRN Angelo n 04/27/24 04/24/25 History 5mg-325mg cetirizine 10 mg tablet 10 mg PO DAILY PRN allergy 1 04/24/25 Rx symptoms #30 TABLETS dicyclomine 10 mg capsule 10 mg PO BID PRN abdominal p ain 05/15/24 04/24/25 History zinc acetate 50 mg (zinc) capsule 50 mg PO DAILY 05/1504/24/25 History (Galzin) ondansetron 4 mg disintegrating 4 mg PO Q6H PRN nausea and 05/28/24 04/24/25 Rx tablet vomiting #20 tabs compress.stocking,knee,reg,med #2 ea 08/22/24 04/24/25 Rx prednisone 10 mg tablet 10 mg PO BID #10 tabs 04/24/25 Rx sennosides 8.6 mg tablet (senna) 17.2 mg (2 x 8.6 mg) PO BID PRN 08/24/24 04/24/25 Rx constipation #60 tabs pantoprazole 40 mg tablet,delayed 40 mg PO QDAY #90 ta bs 09/04/24 04/24/25 Rx release levothyroxine 175 mcg tablet 175 mcg PO QDAY #90 tabs 01/08/25 04/24/25 Rx (Synthroid) denosumab 60 mg/mL subcutaneous 60 mg subcut T2LNJARK #1 mL 01/17/25 04/24/25 Rx syringe (Prolia) mirtazapine 7.5 mg tablet 7.5 mg PO QHS #90 tabs 02/1804/24/25 Rx ferrous sulfate 325 mg (65 mg 325 mg PO DAILY Suppleme nt #90 tabs 03/14/25 04/24/25 Rx iron) tablet olmesartan 5 mg tablet 5 mg PO QDAY #90 tabs 04/24/25 Rx rosuvastatin 20 mg tablet 20 mg PO DAILY #90 tabs 03/1104/24/25 Rx hydroxyzine HCl 10 mg tablet 10 mg PO BID PRN anxiety #30 tabs 04/15/25 04/24/25 Rx meloxicam 7.5 mg tablet 7.5 mg PO BID #180 tabs 01/0204/24/25 Rx ropinirole 1 mg tablet 1 mg PO DAILY #90 tabs 04/1504/24/25 Rx Is last menstrual period known: No Post menopausal: Yes Patient : No Have you fallen in the past year?: No PFSH Medical History Post-menopausal History of steroid therapy Arthritis Excessive bleeding Back pain Difficulty swallowing History of diverticulitis Gastric reflux History of echocardiogram Cardiology follow-up encounter Type 2 diabetes mellitus Vasovagal syncope Essential hypertension Bradycardia Hypothyroidism Hyperlipidemia Osteoarthritis Debility Wears glasses Wears dentures Thyroid disease Easy bruising Shortness of breath on exertion Leg cramps History of edema History of rheumatic fever Localized edema Bleeding tendency Injury of head and neck Chronic pain Gastroesophageal reflux disease Leukocytosis Diabetes mellitus Lumbar spinal stenosis Right lumbar radiculopathy Allergic rhinitis Vitamin B12 deficiency Restless leg syndrome Bilateral sacral insufficiency fracture with delayed healing History of colon polyps Asthma Chronic low back pain Surgical History History of total shoulder replacement Status post reverse total arthroplasty of left shoulder Hx of lumbar discectomy Hx of decompressive lumbar laminectomy History of cardiac catheterization Hx of total hip arthroplasty History of colonoscopy (2012) history of pain stimulator History of bilateral carpal tunnel release History of loop recorder (2012) History of appendectomy History of hysterectomy Hx of tonsillectomy Family History Mother Heart valve disorder Hypertension Heart disease Father Pneumococcal pneumonia CVA (cerebral vascular accident) Heart disease Myocardial infarction CABG Daughter Diabetes Grandmother Diabetes Social History household members: none housing: apartment number of children: 2 current occupational status: retired current occupation: worked at [employer] current occupational exposures/hazards: No pets and animals: No leisure activities: exercise and volunteer work Smoking Status: Never smoker Electronic Cigarette Use: not used alcohol intake: never substance use type: does not use what type of physical activity do you participate in: walking frequency: 3-4 times per week do you feel safe at home: Yes additional social history: daughter lives nearby HPI HPI HPI: JERRELL STRICKLAND, is a 79 F who presents to the office today for further discussion of asymptomatic severe left ICA stenosis. Prior duplex revealed >70% stenosis and she has had a CTA to further define atherosclerosis. No numbness/weakness/vision loss/speech difficulty. No prior neck surgery/XRT, somelimitation of rotation but not extension. ROS General General: No weight change, appetite, fatigue, colon cancer, breast cancer or weakness HEENT HEENT: No difficulty swallowing, eye injury, eye surgery, swollen glands or hoarseness Endo Endocrine: Yes thyroid disease; No diabetes mellitus, thyroid cancer, Hair loss, heat intolerance or cold intolerance Skin Skin: No rash or changing moles Musc Musculoskeletal: Yes back problems, arthritis and joint pain; No rheumatoid arthritis or gout Cardio Cardiovascular: Yes heart disease and high blood pressure; No murmur, pacemaker, atrial fibrillation, heart attack, heart stent, palpitations, shortness of breath with exertion or chest pain Psych Psychiatric: No depression, anxiety or hearing voices Resp Respiratory: No shortness of breath, No sleep apnea, No cough, No COPD, Yes asthma, No emphysema and No wheezing Gastro Gastrointestinal: No abdominal pain, No nausea or vomiting, Yes diarrhea, No constipation, No blood in stool, Yes acid reflux, No hemorrhoids, No ulcers, No gallbladder problem and No black,tarry stools Carlos Hematologic: No blood thinners, No blood disorders, No bleeding, No anemia and No blood clots Neuro Neurologic: No system reviewed and no additional complaints, except as documented, No as per HPI, No abnormal gait, No abnormal hearing, No abnormal movements, No abnormal speech, No behavioral changes, Yes burning sensations, Noconfusion, No convulsions, Yes disequilibrium, No dizziness, No localized weakness, No frequent falls, No headache(s), No lack of coordination, No loss ofvision, No memory loss, Yes numbness, No other visual disturbances, Yes radicular pain, Yes restless legs, No sensory deficit, No syncope, Yes tingling,No tremor(s), No weakness and No other Exam Const General: cooperative, healthy appearing, comfortable, no acute distress and welldeveloped Nutritional Appearance: well nourished Orientation: alert, awake and oriented x3 HENMT Head: normocephalic and atraumatic Ears: hearing grossly normal bilaterally Nose: external nose normal Eyes General: appearance normal, both eyes and all related structures EOM: EOM intact bilaterally Neck Neck: normal visual inspection, limited ROM (limited rotation, normal flexion/extension ), no lymphadenopathy and trachea midline Thyroid: thyroid normal Lymphatic: no lymphadenopathy noted Resp Effort & Inspection: normal respiratory effort, able to speak in complete sentences, symmetric chest movement, no audible wheezes, not labored, no stridorand no use of accessory muscles Auscultation: clear to auscultation bilaterally Cardio Rate: regular rate Rhythm: regular rhythm Heart Sounds: no murmurs Bruits: carotid bruit bilaterally Pulses: brachial pulses present and radial pulses present Skin General: no rashes or lesions noted and no erythema Wounds: no wounds Neuro Cranial Nerves: CN's II-XI intact bilaterally and EOM intact bilaterally Speech: speech normal Gait: normal gait Motor: strength 5/5 throughout Sensory Exam: no sensory deficits noted Psych Appearance: grossly normal and well kempt Mental Status: mental status grossly normal Mood: congruent mood Speech and Movement: speech and movement normal Thought Content: normal Judgment: judgment good Coding Level of Care Code Off vis,est,level 3 Diagnoses Left carotid stenosis I65.22 Assessment and Plan Assessment and Plan (1) Left carotid stenosis: Status: Chronic Plan: -CTA images reviewed, 75% left ICA stenosis, dense calcification, long lesion extending into mid CCA, normal bifurcation position; right ICA 60% stenosis -meets threshold for treatment -calcification not ideal for stent; CEA would be best option -risks/benefits/alternatives/indications for treatment discussed, she is agreeable to proceed Clinical Quality Measures Falls Risk Screening/Assistive Devices Have you fallen in the past year?: No 04/24/25 1728 <Electronically signed by Dusty Fairbanks> Date _ Dusty Harman MD Cosigner Signature: Date (if applicable) CC: ~ [facility] [employer] Work Phone: [phone]) 306-709707-30-2025 Radiology Diagnostic study note [facility] [address] [place] [address] [id number] CTA Head AND Neck W/ Contrast MR#: [id number] Acct: [id number] Name: MARCO ASARAHJERRELL D Rep #: [id number] : 1945 F 79 From: Denzel Jordan MD PCP: Dr. Dionne Magaña MD Status: REG CLI Study:CTA Head AND Neck W/ Contrast Date of E xam: 02/04/25 Exam# [id number] Ordering Dr: Edwin Cole PROCEDURE: CTA HEAD AND NECK W/ CONTRAST 02/04/2025 REASON FOR EXAM: SEVERE L ICA STENOSIS TECHNIQUE: CTA HEAD AND NECK W/ CONTRAST Multiplanar Sagittal and Coronal images were obtained. CONTRAST: Isovue 3 7 VOLUME: 100 mL One or more dose reduction techniques were used (e.g., Automated exposure control, adjustment of the mA and/or kV according to patient size, use of iterative reconstruction technique). RADIATION DOSE SUMMARY: CTDlvol: 27.5 mGy DLP: 1505.35 mGycm COMPARISON: None FINDINGS: Aortic Arch: Normal size and branching pattern. Mild atherosclerotic plaque. Brachiocephalic and Subclavians: Mild atherosclerotic plaque without significantstenosis. RIGHT Carotid: Right CCA: Unremarkable. Right ICA: Moderate calcified and soft plaque. Maximum stenosis (NASCET): > 70 % Right ECA: Moderate calcified and soft plaque. LEFT Carotid: Left CCA: Unremarkable. Left ICA: Moderate calcified and soft plaque. Maximum stenosis (NASCET): Greater than 90 % Left ECA: Moderate calcified and soft plaque. Vertebrals: Codominant. Arise from the subclavians. Both vertebrals form the basilar. RIGHT Vertebral: Unremarkable. LEFT Vertebral: Unremarkable. Anatomy: [place] anatomy is normal. Aneurysm or avm: No intracranial aneurysms or large vascular malformations are identified. Anterior cerebral arteries: Unremarkable: Middle cerebral arteries: Unremarkable. Basilar artery: Unremarkable. Posterior cerebral arteries: Unremarkable. Other major branches of the posterior circulation: Unremarkable. Major venous structures: Unremarkable. Other findings: The unenhanced CT scan of the head demonstrates evidence of milddegree of cerebral atrophy. Calcification of the vertebral arteries in the cavernous portions of the internal carotid arteries bilaterally. CT/CTA Head AND Neck W/ Contrast IMPRESSION: Calcified plaque at the origin of both right and left internal carotid arteries causing a marked degree of stenosis. Reading Location: [id number] CC: VICTOR M Jimenez; Dr. 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 [facility]07-01-2025 Evaluation note* Diagnosis Onset Date Resolution Status Admit Date Acquired hypothyroidism acute J roderick 2024 7:51am Essential hypertension acute Ju ly 2024 7:51am Screening for depression noneactive January 08, 2025 7:51am Chronic back pain greater th an 3 months duration noneactive January 08, 2025 7:51am Chronic insomnia noneactive January 7:51am Moderate persistent asthma i n adult without complication noneactive January 08, 2025 7:51am Prediabetes noneactive January 08 7:51am Left carotid stenosis chronic Oct joo 2024 2:42pm [facility] Work Phone: [phone]) [phone] Evaluation note* Diagnosis Onset Date Resolution Status Admit Date Fecal incontinence acute October 16, 2024 12:30pm Hypotension resolved December 21 7:26am Carotid stenosis acute December 12:16pm Hypotension resolved December 28 12:16pm Acquired hypothyroidism acute J 2024 7:51am Essential hypertension acute Ju ly 2024 7:51am Screening for depression noneactive January 08, 2025 7:51am Chronic back pain greater th an 3 months duration noneactive January 08, 2025 7:51am Chronic insomnia noneactive January 7:51am Moderate persistent asthma i n adult without complication noneactive January 08, 2025 7:51am Prediabetes noneactive January 08 7:51am [facility] Work Phone: 1(791) 898-645703-23-2025 Evaluation note* Diagnosis Onset Date Resolution Status Admit Date Maxillary sinusitis resolved September 30, 2024 12:34pm Fecal incontinence acute October 16, 2024 12:30pm Hypotension resolved December 21 7:26am Carotid stenosis acute December 12:16pm Hypotension resolved December 28 12:16pm Acquired hypothyroidism acute J 2024 7:51am Essential hypertension acute ly 2024 7:51am Screening for depression noneactive January 08, 2025 7:51am Chronic back pain greater th an 3 months duration noneactive January 08, 2025 7:51am Chronic insomnia noneactive January 7:51am Moderate persistent asthma i n adult without complication noneactive January 08, 2025 7:51am Prediabetes noneactive January 08 7:51am [facility] Work Phone: 1(816) 297-490603-06-2025 Evaluation note* Diagnosis Onset Date Resolution Status Admit Date Acquired hypothyroidism acute M arch 2024 2:15pm Essential hypertension acute [facility] 2024 2:15pm Impaired mobility acute September 132024 2:15pm Chronic back pain greater th an 3 months duration noneactive September 13 2:15pm Chronic insomnia noneactive September 2:15pm Moderate persistent asthma i n adult without complication noneactive September 13, 2024 2:15pm Prediabetes noneactive September 13 2:15pm Maxillary sinusitis acute September 30, 2024 12:34pm Fecal incontinence acute October 16, 2024 12:30pm [facility] Work Phone: 1(804) 859-963003-06-2025 Evaluation note* Diagnosis Onset Date Resolution Status Admit Date Acquired hypothyroidism acute M arch 2024 2:15pm Essential hypertension acute [facility] 2024 2:15pm Impaired mobility acute September 132024 2:15pm Chronic back pain greater th an 3 months duration noneactive September 13 2:15pm Chronic insomnia noneactive September 2:15pm Moderate persistent asthma i n adult without complication noneactive September 13, 2024 2:15pm Prediabetes noneactive September 13 2:15pm Maxillary sinusitis acute September 30, 2024 12:34pm Fecal incontinence acute October 16, 2024 12:30pm Hypotension acute December 21 7:26am [facility] Work Phone: 1(626) 128-618703-06-2025 Evaluation note* Diagnosis Onset Date Resolution Status Admit Date Acquired hypothyroidism acute M arch 2024 2:15pm Essential hypertension acute [facility] 2024 2:15pm Impaired mobility acute September 132024 2:15pm Chronic back pain greater th an 3 months duration noneactive September 13 2:15pm Chronic insomnia noneactive September 2:15pm Moderate persistent asthma i n adult without complication noneactive September 13, 2024 2:15pm Prediabetes noneactive September 13 2:15pm Maxillary sinusitis acute September 30, 2024 12:34pm Fecal incontinence acute October 16, 2024 12:30pm Hypotension acute December 21 7:26am Carotid stenosis acute December 12:16pm Hypotension acute December 28 12:16pm Acquired hypothyroidism acute J roderick 2024 7:51am Essential hypertension acute Ju ly 2024 7:51am Chronic back pain greater th an 3 months duration noneactive January 08, 2025 7:51am Chronic insomnia noneactive January 7:51am Moderate persistent asthma i n adult without complication noneactive January 08, 2025 7:51am Prediabetes noneactive January 08 7:51am [facility] Work Phone: 1(861) 157-352506-15-2024 NoteHNO ID: [id number] Author: NOELLE GARCIA APRN.FALAFEL CART COOK Service: ? Author Type: Nurse Practitioner Type: Progress Notes Filed: 12/30/2023 12:47 Note Text: This note was created using [email or web address]. Subjective Jerrell Strickland is a 78 year old female. Reports 1 week of right large toe pain. Patient reports remote hx of gout. Objective BP 119/71 Pulse 90 Temp 37.1 ?C (98.7 ?F) Resp 18 Wt 73 kg (160 lb 15 oz) SpO2 96% BMI 27.62 kg/m? Physical Exam PHYSICAL EXAMINATION General appearance: Well appearing, alert, in no acute distress, well-hydrated, well nourished. Skin: Positives: Right great toe red from distal tip to 1st tarsal joint. Musculoskeletal: Positive findings: joint location: redness and swelling to right great toe, tender with palpation. Assessment and Plan ASSESSMENT/PLAN: 1. Acute gout involving toe of right foot, unspecified cause - ICD9: 274.01, ICD10: M10.9 - PREDNISONE 10 MG TABLET Noelle Garcia APRN.[facility]ISHC[facility] History of Present illness Narrative* Noelle Garcia APRN.FALAFEL CART COOK - 12/24/2023 3:09 PM EDT This note was created using Snip.ly. Subjective Jerrell Strickland is a 78 year old female. Reports 1 week of right large toe pain. Patient reports remote hx of gout. Objective BP 119/71 Pulse 90 Temp 37.1 C (98.7 F) Resp 18 Wt 73 kg (160 lb 15 oz) SpO2 96% BMI 27.62 kg/m Physical Exam PHYSICAL EXAMINATION General appearance: Well appearing, alert, in no acute distress, well-hydrated, well nourished. Skin: Positives: Right great toe red from distal tip to 1st tarsal joint. Musculoskeletal: Positive findings: joint location: redness and swelling to right great toe, tenderwith palpation. Assessment and Plan [facility] NoteHNO ID: [id number] Author: ELIZABETH SHAHID APRN.SATISH Service: Hospital Medicine Author Type: Nurse Practitioner Type: Progress Notes Filed: 12/05/2023 13:48 Note Text: DEPARTMENT OF HOSPITAL MEDICINE PROGRESS NOTE SERVICE DATE: 12/05/2023 SERVICE TIME: 12:23 PM Hospital Medicine/Primary Attending: Vinicius Bolivar MD NIGHT AND WEEKEND COVERAGE: [facility] COVERAGE: Days: [phone], please page Elizabeth Shahid for patient issues. Nights: [phone], please page Team [facility] 4: G/H 8th floor: [address]; Non 8th floor [id number] Subjective INTERVAL HPI: Transferred to [facility] from [facility] for management of Hyponatremia. Pt pleasant, ambulating around room and has no complaints of pain, dizziness or lightheadedness. Expresses the desire to go home as soon as possible as she feels fine. Pt voices understanding for reasoning of admission and claims to have help at home if needed, although independent. 12/03 Na 126. 12/04 AM repeat Na improved to 132 Continuing 1 L per day fluid restriction. Current Facility-Administered Medications Medication Dose Route Frequency rOPINIRole 0.5-1 mg tab(s) (REQUIP) 0.5-1 mg ORAL AT BEDTIME amLODIPine 10 mg tab(s) (NORVASC) 10 mg ORAL AT BEDTIME gabapentin 300 mg cap(s) (NEURONTIN) 300 mg ORAL AT BEDTIME NaCl 0.9% iv flush bag 20 mL INTRAVENOUS PRN methocarbamol 500 mg tab(s) (ROBAXIN) 500 mg ORAL/FEEDING TUBE TID PRN mometasone-formoterol 200-5 mcg/actuation 2 Puff inhaler (DULERA) 2 Puff INHALATION BID levothyroxine 200 mcg tab(s) (SYNTHROID) 200 mcg ORAL DAILY rosuvastatin 5 mg tab(s) (CRESTOR) 5 mg ORAL AT BEDTIME mirtazapine 7.5 mg (REMERON) 7.5 mg ORAL AT BEDTIME famotidine 20 mg tab(s) (PEPCID) 20 mg ORAL/FEEDING TUBE DAILY Objective PHYSICAL EXAM: BP 141/33 Pulse 60 Temp (Src) 97.7 (Oral) Resp 16 Ht 5' 4 (1.63m) Wt 162 lb 14.7 oz (73.9kg) SpO2 96% BMI 27.95 kg/(m2). O2 Therapy: Room Air Physical Exam Performed GENERAL: Alert, no distress, cooperative LUNGS: Lungs clear to auscultation, Good diaphragmatic excursion CARDIAC: Normal S1 and S2; no rubs, murmurs, or gallops ABDOMEN: Abdomen soft, non-tender, BS normal, No masses or organomegaly NEURO: Gait normal. Reflexes normal and symmetric. Sensation grossly intact, Cranial nerves II-XII intact PULSES: 2+ radial, 2+ carotid Lines, Drains, and Airways Line Duration Peripheral 12/02/23 1310 [facility] Facility Short Left Forearm 22 Gauge 2 days Peripheral 12/02/23 1310 External Facility Short Left Forearm 20 Gauge 2 days Reviewed lines and needs to be continued: REASONS: Intravenous fluids DATA: Diagnostic tests reviewed for today's visit: Most recent labs Most recent imaging Most recent EKG CBC, Coags, BMP, Mg, Phos Recent Labs 12/05/23 1144 12/04/23 1319 12/04/23 0708 NA 132* 126* 127* K 5.0 4.2 4.3 CHLOR 98 90* 92* CO2 18* 19* 20* BUN 26* 21 19 CREAT 0.88 0.92 0.85 GLUC 119* 89 86 CA 9.3 9.5 9.5 MG 1.9 -- -- P 4.0 -- -- Assessment/Plan Problem List Pneumocephalus (POA: Yes) Hypertension (POA: Yes) Asthma (POA: Yes) Hypothyroidism (POA: Yes) Hyperlipidemia (POA: Yes) Hyponatremia (POA: Status not on file) HOSPITAL COURSE: Jerrell Strickland is a 78 year old female presented with past medical history of HTN, HLD, hypothyroidism, asthma, RLE skin infection (+pseudomonas), R hip fx 2 yrs ago s/p surgical repair, and CVA (08/2023) who presented to [facility] ED on 12/01/23 per recommendation of PCP for ~1 week, was found to have Na of 123. Transferred to [facility] Main NSGY on 12/02/23 after OSH CTH on 11/30 reported pneumocephalus in region of clivus/cavernous sinus/sella without overt skull fracture. CTH on 12/01 showed no pneumocephalus/skull fractures/other intracranial abnormality. Patient remained hospitalized for hyponatremia, likely SIADH. Patient transferred to hospital medicine service on 12/03 for continued management and care. Repeat Sodium this AM improved to 132 Continue with 1 L fluid restriction Principal Problem: Hyponatremia Assessment: -On admit, BUN 21 and creatinine 0.90. In the ED, she was given 1 L NS bolus. Upon arrival to [facility], she underwent repeat labs which showed Na 128, BUN 11, creatinine 0.61. 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 -CTH on 12/01 showed no pneumocephalus/skull fractures/other intracranial abnormality. - Per NSGY, likely etiology is IV access - NSGY transferred care, no longer following - no additional workup for trans (more content not included)...[facility]05-26-2024 NoteHNO ID: [id number] Author: RUSTY WALL MD Service: Neurosurgery Author Type: Resident Type: Progress Notes Filed: 12/04/2023 12:57 Note Text: Attestation signed by Shayy Alcaraz MD at 12/04/2023 7:19 PM [facility] STAFF PHYSICIAN NOTE OF PERSONAL INVOLVEMENT IN CARE I have reviewed the Progress Note obtained and documented by the resident and I personally participated in the marlow components. I have discussed the case and management of the patient's care. SIGNATURE: Shayy Alcaraz MD DATE of SERVICE: December 04, 2023 Neurosurgery Inpatient Progress Note Interval HPI: No acute events. Objective: 12/03/23 2141 12/04/23 0546 12/04/23 0859 12/04/23 0940 BP: (!) 153/35 (!) 140/46 147/55 Pulse: 64 (!) 53 (!) 56 74 Resp: 16 18 16 Temp: 36.4 ?C (97.5 ?F) 36.6 ?C (97.9 ?F) 36.3 ?C (97.3 ?F) TempSrc: Oral Oral SpO2: 98% 95% 98% 99% Weight: Height: No intake or output data in the 24 hours ending 12/04/23 1256 EXAM: AAOx3 PERRL, EOMI VF intact FS, TM Naming 3/3, repetition intact Speech intact No drift Motor strength 5/5 x 4 SILT A/P: 78 F w/ PMH HTN, HLD, hypothyroidism, asthma, RLE skin infection (+pseudomonas), R hip fx 2 yrs ago s/p surgical repair, and CVA (08/2023) who presented to [facility] ED on 12/01/23 per recommendation of PCP for ~1 week, was found to have Na of 123. Transferred to [facility] Main NS on 12/02/23 after OSH CTH on 11/30 reported pneumocephalus in region of clivus/cavernous sinus/sella without overt skull fracture. CTH on 12/01 showed no pneumocephalus/skull fractures/other intracranial abnormality. - RNF, medicine taking over today - hyponatremia workup and dizziness workup per medicine - no additional workup for transient pneumocephalus, likely etiology is IV access - we will respectfully sign off, please re-engage at any time - no need for scheduled neurosurgery outpatient followup Staff: Dr. Kieran Wall MD MPH PGY-4 Neurological Surgery 12:57 PM 12/04/23[facility]05-[facility]24 NoteHNO ID: [id number] Author: SANDIE BARON APRN.FALAFEL CART COOK Service: Hospital Medicine Author Type: Nurse Practitioner Type: Progress Notes Filed: 12/04/2023 14:21 Note Text: DEPARTMENT OF HOSPITAL MEDICINE PROGRESS NOTE SERVICE DATE: 12/04/2023 SERVICE TIME: 11:15 AM Hospital Medicine/Primary Attending: Vinicius Bolivar MD NIGHT AND WEEKEND COVERAGE: [facility] COVERAGE: Days: [phone], please page Sandie Baron for patient issues. Nights: [phone], please page Team [facility] 4: G/H 8th floor: [address]; Non 8th floor [id number] Subjective INTERVAL HPI: Transferring to [facility] from [facility] for hyponatremia Patient sitting up in chair, feels great No longer has any dizziness or lightheadedness Monitoring sodium with 1L fluid restriction Denies chest pain, shortness of breath, N/V/D/C, fever or chills Current Facility-Administered Medications Medication Dose Route Frequency rOPINIRole 0.5-1 mg tab(s) (REQUIP) 0.5-1 mg ORAL AT BEDTIME amLODIPine 10 mg tab(s) (NORVASC) 10 mg ORAL AT BEDTIME gabapentin 300 mg cap(s) (NEURONTIN) 300 mg ORAL AT BEDTIME NaCl 0.9% iv flush bag 20 mL INTRAVENOUS PRN methocarbamol 500 mg tab(s) (ROBAXIN) 500 mg ORAL/FEEDING TUBE TID PRN mometasone-formoterol 200-5 mcg/actuation 2 Puff inhaler (DULERA) 2 Puff INHALATION BID levothyroxine 200 mcg tab(s) (SYNTHROID) 200 mcg ORAL DAILY rosuvastatin 5 mg tab(s) (CRESTOR) 5 mg ORAL AT BEDTIME mirtazapine 7.5 mg (REMERON) 7.5 mg ORAL AT BEDTIME [START ON 12/05/2023] famotidine 20 mg tab(s) (PEPCID) 20 mg ORAL/FEEDING TUBE DAILY Objective PHYSICAL EXAM: BP 126/41 Pulse 55 Temp (Src) 98.1 (Oral) Resp 18 Ht 5' 4 (1.63m) Wt 162 lb 14.7 oz (73.9kg) SpO2 98% BMI 27.95 kg/(m2). O2 Therapy: Room Air Physical Exam Performed GENERAL: Alert, awake, sitting up in chair, no distress, cooperative SKIN: Skin color, texture, turgor normal. EYES: PERRLA, EOMI EARS: External ears normal LUNGS: Lungs clear to auscultation, Good diaphragmatic excursion CARDIAC: Normal S1 and S2; no rubs, murmurs, or gallops ABDOMEN: Abdomen soft, non-tender, BS normal EXTREMITIES: Extremities normal, no deformities, edema, clubbing or skin discoloration. NEURO: Sensation grossly intact, Cranial nerves II-XII intact Lines, Drains, and Airways Line Duration Peripheral 12/02/23 1310 [facility] Short Left Forearm 22 Gauge 2 days Peripheral 12/02/23 1310 [facility] Facility Short Left Forearm 20 Gauge 2 days Reviewed drains and needs to be continued: DATA: Diagnostic tests reviewed for today's visit: Most recent labs Most recent imaging Assessment/Plan Problem List Pneumocephalus (POA: Yes) Hyponatremia (POA: Status not on file) HOSPITAL COURSE: 78 F w/ PMH HTN, HLD, hypothyroidism, asthma, RLE skin infection (+pseudomonas), R hip fx 2 yrs ago s/p surgical repair, and CVA (08/2023) who presented to [facility] ED on 12/01/23 per recommendation of PCP for ~1 week, was found to have Na of 123. Transferred to [facility] Main NS on 12/02/23 after OSH CTH on 11/30 reported pneumocephalus in region of clivus/cavernous sinus/sella without overt skull fracture. CTH on 12/01 showed no pneumocephalus/skull fractures/other intracranial abnormality. Patient remained hospitalized for hyponatremia, likely SIADH. Patient transferred to hospital medicine service on 12/03 for continued management and care. Principal Problem: # Pneumocephalus Admitted to OSH for hyponatremia found on outpatient labs CTH on 11/30 reported pneumocephalus in region of clivus/cavernous sinus/sella without overt skull fracture. CTH on 12/01 showed no pneumocephalus/skull fractures/other intracranial abnormality. Per NSGY, likely etiology is IV access PLAN: - NSGY transferred care, no longer following - no additional workup for transient pneumocephalus, likely etiology is IV access - no need for scheduled neurosurgery outpatient follow up Active Problems: # Hyponatremia Patient states that she had been feeling weak and lightheaded for about a week. Had outpatient blood work done which showed a low sodium level of 123 so she was advised to go to the ED prompting her to present to [facility] ED. On admit, BUN 21 and creatinine 0.90. In the ED, she was given 1 L NS bolus. Upon arrival to [facility], she underwent repeat labs which showed Na 128, BUN 11, creatinine 0.61. CBC and UA were grossly normal. 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, fluid restriction started in evening of 12/02 Euvolemic on exam PLAN: - continue with 1L fluid restriction - Liberalize diet to regular - monitor BMP Q8H - S IANDO # Hypothyroidism Takes 200 mcg of levothyroxine daily TSH normal PLAN: - continue home levothyroxine # HTN Dispense report shows patient taking amlodipine 10 mg daily and olmesartan 20 mg Patient states that she takes HCTZ but not on recent dispense report (more content not included)...[facility]05-25-2024 NoteHNO ID: [id number] Author: SHAYY ALCARAZ MD Service: Neurosurgery Author Type: Resident Type: Progress Notes Filed: 12/03/2023 16:20 Note Text: Attestation signed by Shayy Alcaraz MD at 12/03/2023 4:20 PM [facility] STAFF PHYSICIAN NOTE OF PERSONAL INVOLVEMENT IN CARE I have reviewed the Progress Note obtained and documented by the resident and I personally participated in the marlow components. I have discussed the case and management of the patient's care. SIGNATURE: Shayy Alcaraz MD DATE of SERVICE: December 03, 2023 Neurosurgery Inpatient Progress Note Interval HPI: No acute events. Objective: 12/03/23 0000 12/03/23 0010 12/03/23 0015 12/03/23 0236 BP: 165/68 165/68 123/50 96/78 Pulse: (!) 59 (!) 49 (!) 56 Resp: 26 19 Temp: 37 ?C (98.6 ?F) TempSrc: Oral SpO2: 97% 97% Weight: Height: Intake/Output Summary (Last 24 hours) at 12/03/2023 0750 Last data filed at 12/02/2023 1500 Gross per 24 hour Intake -- Output 200 ml Net -200 ml EXAM: AAOx3 PERRL, EOMI VF intact FS, TM Naming 3/3, repetition intact Speech intact No drift Motor strength 5/5 x 4 SILT A/P: 78 F w/ PMH HTN, HLD, hypothyroidism, asthma, RLE skin infection (+pseudomonas), R hip fx 2 yrs ago s/p surgical repair, and CVA (08/2023) who presented to [facility] ED on 12/01/23 per recommendation of PCP for ~1 week, was found to have Na of 123. Transferred to [facility] Main NSGY on 12/02/23 after OSH CTH on 11/30 reported pneumocephalus in region of clivus/cavernous sinus/sella without overt skull fracture. CTH on 12/01 showed no pneumocephalus/skull fractures/other intracranial abnormality. - RNF under NSGY - hyponatremia workup and dizziness workup per medicine - no additional workup for transient pneumocephalus, likely etiology is IV access - medicine c/s for hyponatremia workup - PT/OT Staff: Dr. Alcaraz Signature: Surya Ramirez MD PGY-3, Neurological Surgery Pager: [phone] Neurosurgery main galley scullion: [phone] 7:51 AM 12/03/23 Please page [phone] on weekends, after 6pm, or if I am not reachable at the above numberC[facility]24 NoteHNO ID: [id number] Author: KISHAN LEW Tech Service: Radiology Author Type: Technologist Type: Progress Notes Filed: 12/02/2023 15:55 Note Text: Radiology Service Progress Note PATIENT NAME: Jerrell Strickland DATE OF SERVICE: December 02, 2023 TIME: 3:53 PM PATIENT IDENTITY VERIFICATION COMPLETED USING TWO (2) IDENTIFIERS: Name and Date of confirmed by patient verbally and Name and Date of confirmed by identification band. FALL SCREENING: Has the patient had 2 falls in the last year or 1 fall with injury or currently using an Ambulatory Assistive Device (Walker, Cane, Wheelchair, Crutches, etc.)? Inpatient: Screened on floor PATIENT GENDER DATA: Female. status: : No status: NO. PATIENT RELEVANT IMPLANT DATA REVIEWED: Yes PATIENT PRESENTS WITH AN IMPLANTABLE OR ATTACHED RAIL BONDER: No RADIOLOGY DEPARTMENT: CT; Exam(s) Completed: Brain PERIPHERAL IV DATA: Not applicable SIGNED BY: Debbie Raymundo December 02, 2023 3:[address] [facility]05-10-2024 NoteHNO ID: [id number] Author: HERMELINDA BAKER, OT/L Service: ? Author Type: Occupational Therapist Type: Progress Notes Filed: 11/27/2023 16:13 Note Text: Episode Visit Count: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 Unchanged famotidine (famotidine 40 mg [...] anti-inflammatories while on meloxicam/ Mobic Pickup at [facility] Unchanged metFORMIN (metFORMIN 500 mg oral [...] shoulder 1-2 tab(s) Oral q4h Pickup at [facility] Unchanged pantoprazole (pantoprazole 40 mg oral enteric coated tablet) TAKE 1 TABLET BY MOUTH DAILY Unchanged rOPINIRole (rOPINIRole 0.5 mg oral tablet) TAKE 1 TO 2 TABLETS AT BEDTIME Unchanged rosuvastatin (rosuvastatin 5 mg oral tablet) TAKE 1 TABLET BY MOUTH AT BEDTIME Unchanged vitamin E (vitamin E 1000 intl units oral capsule) 1 cap by mouth Once a day Pharmacy Information [facility]: [address] [place], [place] [id number] [phone] What When Comments Stop Taking acetaminophen-hydrocodone (acetaminophen- hydrocodone 325 mg-7.5 mg oral tablet) TAKE 1 [...] bedtime. Docusate and senna should cause you tohave a bowel movement within 6 to 12 [...] laxative or other stool softener that may containingredients similar to docusate or senna. What are [...] may report side effects to FDA at 1-702-SER-0292. What other drugs will affect docusate and senna? Other drugs may affect docusate and senna, including prescription and mjzr-ieb-eylezpw medicines, vitamins, and herbal products. Tell your doctor about all your current medicines and any medicine youstart or stop using. Where can I get more information? Your pharmacist can provide more information about docusate and senna. Remember, keep this and all other medicines out of the reach of children, never share your medicines with others, and use this medication only for the indication prescribed. Every effort has been made to ensure that the information provided by [employer]') is accurate, up-to-date, and complete, but no guarantee is made to that effect. Drug information contained herein may be time sensitive. The Filter information has been compiled for use by healthcare practitioners and consumers in the [place] and therefore The Filter does not warrant that uses outside of the [place] are appropriate, unless specifically indicated otherwise. [employer] drug information does not endorse drugs, diagnose patients or recommend therapy. [employer] drug information isan informational resource designed to assist licensed healthcare practitioners in caring for their p atients and/or to serve consumers viewing this service as a supplement to, and not a substitute for, the expertise, skill, knowledge and judgment of healthcare practitioners. The absence of a warningfor a given drug or drug combination in no way should be construed to indicate that the drug or drug combination is safe, effective or appropriate for any given patient. The [employer] does not assume any responsibility for any aspect of healthcare administered with the aid of information The [employer] provides. The information contained herein is not intended to cover all possible uses, directions, precautions, warnings, drug interactions, allergic reactions, or adverse effects. If you have questions about the drugs you are taking, check with your doctor, nurse or pharmacist. Copyright 6396-0055 [employer]. Version: 3.02. Revision Date: 09/24/2020. aspirin (oral) ( pir in) Arthritis Pain, Aspi-Cor, Aspir-Low, Nancy Plus, Durlaza, Ecotrin, Miniprin, Vazalore What is the most important information I should know about aspirin? Aspirin can cause Zahida's syndrome, a serious and sometimes fatal condition in children. What is aspirin? Aspirin is a salicylate (yi-RWV-pc-ate) that is used to treat pain, and [...] may report side effects to FDA at 6-244-LJT-4466. What other drugs will affect aspirin? Ask [...] drugs may affect aspirin, including prescription and fcbd-iyw-vdcqgia medicines, vitamins, and herbal products. Not all [...] to ensure that the information provided by [employer] is accurate, up-to-date, and complete, but no guarantee is made to that effect. Drug information contained herein may be time sensitive. The Filter information has been compiled for use by healthcare practitioners and consumers in the [place] and therefore The Filter does not warrant that uses outside of the [place] are appropriate, unless specifically indicated otherwise. [employer] drug information does not endorse drugs, diagnose patients or recommend therapy. [employer] drug information isan informational resource designed to assist licensed healthcare practitioners in caring for their p atients and/or to serve consumers viewing this service as a supplement to, and not a substitute for, the expertise, skill, knowledge and judgment of healthcare practitioners. The absence of a warningfor a given drug or drug combination in no way should be construed to indicate that the drug or drug combination is safe, effective or appropriate for any given patient. [facility] does not assume any responsibility for any aspect of healthcare administered with the aid of information [facility] provides. The information contained herein is not intended to cover all possible uses, directions, precautions, warnings, drug interactions, allergic reactions, or adverse effects. If you have questions about the drugs you are taking, check with your doctor, nurse or pharmacist. Copyright 3535-4973 [facility]. Version: 16.03. Revision Date: 01/05/2021. meloxicam (oral/injection) (negra OKS i jaelyn) Anjeso, Mobic, Qmiiz ODT, [...] you have ever had an asthma attack orsevere allergic reaction after taking aspirin or an NSAID. You should not take meloxicam disintegrating tablets (Qmiiz ODT) if you have phenylketonuria (PKU).This form of meloxicam contains phenylalanine. Tell your [...] your doctor tells you to. Taking an NSAIDduring the last 20 weeks of can cause serious heart or kidney problems in the unborn babyand possible complications with your . Meloxicam may cause a delay in ovulation (the release of an egg from an ovary). You should not takemeloxicam if you are undergoing fertility treatment, or [...] blood cells (anemia)--pale skin, unusual tiredness, feeling light- headed, cold hands and feet; or kidney problems--little or no urination, swelling in your feet or ankles, feeling tired or short ofbreath. Common side effects may include: stomach pain, nausea, vomiting, heartburn; diarrhea, constipation, gas; dizziness; or cold symptoms, flu symptoms. This is not a complete list of side effects and others may occur. Call your doctor for medical advice about side effects. You may report side effects to FDA at 5-811-TJR-5178. What other drugs will affect meloxicam? Ask [...] drugs may affect meloxicam, including prescription and kcms-idl-yythdrs medicines, vitamins, and herbal products. Not all [...] to ensure that the information provided by [employer]') is accurate, up-to-date, and complete, but no guarantee is made to that effect. Drug information contained herein may be time sensitive. The Filter information has been compiled for use by healthcare practitioners and consumers in the [place] and therefore The Filter does not warrant that uses outside of the [place] are appropriate, unless specifically indicated otherwise. [employer] drug information does not endorse drugs, diagnose patients or recommend therapy. [employer] drug information isan informational resource designed to assist licensed healthcare practitioners in caring for their p atients and/or to serve consumers viewing this service as a supplement to, and not a substitute for, the expertise, skill, knowledge and judgment of healthcare practitioners. The absence of a warningfor a given drug or drug combination in no way should be construed to indicate that the drug or drug combination is safe, effective or appropriate for any given patient. The [employer] does not assume any responsibility for any aspect of healthcare administered with the aid of information The Filter provides. The information contained herein is not intended to cover all possible uses, directions, precautions, warnings, drug interactions, allergic reactions, or adverse effects. If you have questions about the drugs you are taking, check with your doctor, nurse or pharmacist. Copyright 8159-5955 [employer]. Version: 14.. Revision Date: 05/13/2020. acetaminophen (oral) (a SEET a MIN oh fen) Actamin, Anacin AF, Aurophen, Bromo [place], Children's Tylenol, Mapap, M-Pap, Pharbetol, Silapap Childrens, [...] Help line at . An overdose can befatal. Overdose symptoms include vomiting, stomach pain, and [...] may report side effects to FDA at 9-731-QGB-6854. What other drugs will affect acetaminophen? Other drugs may affect acetaminophen, including prescription and duki-ide-blwaqik medicines, vitamins, and herbal products. Tell your [...] to ensure that the information provided by [employer]') is accurate, up-to-date, and complete, but no guarantee is made to that effect. Drug information contained herein may be time sensitive. The Filter information has been compiled for use by healthcare practitioners and consumers in the [place] and therefore The Filter does not warrant that uses outside of the [place] are appropriate, unless specifically indicated otherwise. [employer] drug information does not endorse drugs, diagnose patients or recommend therapy. [employer] drug information isan informational resource designed to assist licensed healthcare practitioners in caring for their p atients and/or to serve consumers viewing this service as a supplement to, and not a substitute for, the expertise, skill, knowledge and judgment of healthcare practitioners. The absence of a warningfor a given drug or drug combination in no way should be construed to indicate that the drug or drug combination is safe, effective or appropriate for any given patient. The [employer] does not assume any responsibility for any aspect of healthcare administered with the aid of information The Filter provides. The information contained herein is not intended to cover all possible uses, directions, precautions, warnings, drug interactions, allergic reactions, or adverse effects. If you have questions about the drugs you are taking, check with your doctor, nurse or pharmacist. Copyright 7612-5254 [employer]. Version: 22.. Revision Date: 08/28/2021. oxycodone (ox i KOE [...] The extended-release form of oxycodone is for edaioi-ywz-ykyte treatment of pain and should not be [...] people under 18. OxyContin should not be givento a child younger than 11 years old. [...] someone with a history of drug abuse oraddiction. MISUSE CAN CAUSE ADDICTION, OVERDOSE, OR . Keep the medication in a place where others cannot get to it. Selling or giving away opioid medicine is against the law. Stop taking all other brlfou-stn-mfzcv opioid pain medicines when you start taking extended-releaseoxycodone. Take oxycodone with food. Swallow the capsule or tablet whole to avoid exposure to a potentially fatal overdose. Do not crush, chew, break, open, or dissolve. If you cannot swallow a capsule whole, open it and sprinkle the medicine into a spoonful of puddingor applesauce. Swallow the mixture right away without [...] suddenly. Follow your doctor's instructions about tapering yourdose. Store at room temperature, away from heat, [...] where to locate a drug take-back disposal program.If there is no take-back program, flush the [...] Poison Help line at . An opioid overdosecan be fatal, especially in a child or [...] health department. Make sure any person caring foryou knows where you keep naloxone and how to use it. What should I avoid while using oxycodone? Do not drink alcohol. Dangerous side effects or could occur. < (more content not included)... [facility]12-29-2022 Note Date of Service 07/08/2022 Chief Complaint Dizziness Subjective Patient seen and evaluated while resting in recliner. She states that her right shoulder is doing well but the rest of her is not too good. Patient asked to elaborate on that but will only say thatshe has been dizzy when she gets up [...] edema. Peripheral pulses palpable. No calf tenderness. Rightshoulder surgical dressing is dry and intact. Bruising [...] Date: July 08, 2022 Verified By: CATHY FARRELL MD CLINICAL STATEMENT: IMPRESSION: No acute findings. [...] by KUNAL REESE on 07/08/2022 04:05 PM [facility]12-29-2022 Note Date of Service July 08, 2022 Subjective The patient was sitting in bedside chair upon examination. Patient denies any chest pain, shortnessof breath, nausea or vomiting, or calf pain. [...] detail patient is not to take the [place] 7.5/325 mg while at home for the [...] range of motion of the operative shoulder. Grace outpatient physical therapy after the 2-week follow-up at [facility]. 5. H & H: 11.7/35.9, asymptomatic. Postoperative [...] patient has continued with dizziness today and itwas found that she has an underlying urinary [...] physical therapy established. I have reviewed the [place] Automated Rx Reporting System (OARRS) report for this patient for refill pattern and other prescriber involvement as part of the appropriate surveillance for the provision ofacute and chronic controlled medications. The report was requested and reviewed on the date of thisentry, and was considered in the prescribing process This dictation was created using voice recognition software. Phonetic and/or grammatical errors mayexist. 2. HTN (hypertension) 3. Type 2 diabetes mellitus 4. Asthma 5. Fall 6. Dizzy Digitally Signed by TANNER HAHN PA-C on 07/08/2022 02:19 PM [facility]12-29-2022 Note ORIGINAL EXAMINATION: ONE XRAY VIEW OF [...] IMPRESSION: No acute findings. Interpreted by: Cathy Farrell MD Preliminary Report By: Cathy Farrell MD Electronically signed By Cathy Farrell MD Dictated Date: 07/08/2022 12:35:45 AM Prelim Date: 07/08/2022 12:36:07 AM Sign Date: 07/08/2022 12:36:07 AM Ordering Provider: [facility]12-29-2022 Note ORIGINAL EXAMINATION: ONE XRAY VIEW OF [...] IMPRESSION: No acute findings. Interpreted by: Cathy Farrell MD Preliminary Report By: Cathy Farrell MD Electronically signed By Cathy Farrell MD Dictated Date: 07/08/2022 12:35:45 AM Prelim Date: 07/08/2022 12:36:07 AM Sign Date: 07/08/2022 12:36:07 AM Ordering Provider: [facility]12-28-2022 Nurse Progress note Patient checked on and found difficult to arouse. Did not respond to loud voice and shaking. Sternal rub performed with wincing noted. Bri Quintana RN notified and Low Vasquez CNP notified also. Stronger sternal rub performed per Low Vasquez CNP and pt woke and was speaking and responding to questionsappropriately. V/S done, O2 applied and residential monitor also applied. Digitally Signed by GORDON Evans on 07/07/2022 06:18 PM [facility]12-28-2022 Note ORIGINAL EXAMINATION: TWO XRAY VIEWS OF THE RIGHT SLRVGTSZ80/28/2022 2:30 pm COMPARISON: July 06, 2022 radiograph [...] 07/07/2022 2:50:22 PM Ordering Provider: SHANE VASQUEZ [facility]12-28-2022 Nurse Progress note At approximately 1340, visitors [...] by GORDON Evans on 07/07/2022 02:49 PM [facility]12-28-2022 Note ORIGINAL HISTORY: Fall, confusion, dizzy COMPARISON: [...] Sign Date: 07/07/2022 2:27:06 PM Ordering Provider: [facility]12-28-2022 Note ORIGINAL EXAMINATION: TWO XRAY VIEWS OF THE RIGHT POOSPCIW03/28/2022 2:30 pm COMPARISON: July 06, 2022 radiograph [...] Sign Date: 07/07/2022 2:50:22 PM Ordering Provider: [facility]12-28-2022 Note ORIGINAL HISTORY: Fall, confusion, dizzy COMPARISON: [...] Sign Date: 07/07/2022 2:27:06 PM Ordering Provider: SH[facility]12-28-2022 Note Date of Service July 07, 2022 Subjective The patient was sitting in bedside chair upon examination. Patient denies any chest pain, shortnessof breath, dizziness, lightheadedness, nausea or vomiting, or [...] detail patient is not to take the [place] 7.5/325 mg while at home for the [...] range of motion of the operative shoulder. Grace outpatient physical therapy after the 2-week follow-up at [facility]. 5. H & H: 11.8/36.1, asymptomatic. Postoperative [...] We would also like assessment from physical therapy.She would like her prescriptions E scribed to [facility] [place]. I again discussed with the patientin great detail postoperative course of treatment as well as the narcotics. She will not take the E[place]burg while we are managing her postoperative pain control. After 6 weeks she will go back with her primary pain management physician. Patient has outpatient physical therapy established. She will follow-up per postop instructions. She will contact her office upon discharge with any concerns or questions. I have reviewed the [place] Automated Rx Reporting System (OARRS) report for this patient for refill pattern and other prescriber involvement as part of the appropriate surveillance for the provision ofacute and chronic controlled medications. The report was requested and reviewed on the date of thisentry, and was considered in the prescribing process This dictation was created using voice recognition software. Phonetic and/or grammatical errors mayexist. 2. HTN (hypertension) 3. Type 2 diabetes mellitus 4. Asthma Digitally Signed by TANNER HAHN PA-C on 07/07/2022 08:32 AM [facility]12-27-2022 Note ORIGINAL HISTORY: Postop COMPARISON: No FINDINGS: [...] 07/06/2022 2:01:20 PM Ordering Provider: MIKEY OROPEZA [facility]12-27-2022 Note ORIGINAL HISTORY: Postop COMPARISON: No FINDINGS: [...] Sign Date: 07/06/2022 2:01:20 PM Ordering Provider: [facility]12-27-2022 Anesthesiology Consult note Patient: JERRELL STRICKLAND Age: 76 years Sex: Female : 1945 Associated Diagnoses: None Author: OSCAR COWAN Preoperative Information Anesthesia history Patient's history: nausea [...] list: Medical Abdominal pain / SNOMED CT 42724541 / Confirmed Asthma / SNOMED CT 818620840 / Confirmed Diverticulosis / SNOMED CT 5404272289 / Confirmed Hiatal hernia / SNOMED CT 773825292 / Confirmed Hypertension / SNOMED CT 2829445112 / Confirmed Hypothyroidism / SNOMED CT 20007374 / Confirmed Fatty liver / SNOMED CT 450658179 / Confirmed Vagal bradycardia / SNOMED CT 38104913 / Confirmed, Active Problems (9) Abdominal pain Asthma Diverticulosis Fatty liver GERD (gastroesophageal reflux disease) Hiatal hernia Hypertension Hypothyroidism Vagal bradycardia Histories Past Medical History: No active or resolved past medical history items have been selected or recorded. Family History: CAD - Coronary artery disease Mother Father Procedure history: Carpal tunnel release (966433009). Repair of shoulder (815966587). Comments: 04/25/2017 7:53 EDGARDO ANGELA RN ELLEN arthroscopy LEFT History of tonsillectomy (6761465403). Abdominal hysterectomy (443473497). Appendectomy (997016048). Spinal cord stimulation (113773575). Total hip replacement (372565370). Comments: 06/22/2022 13:44 Suzette Lewis RN right Total shoulder replacement (77117406). 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 Assessment and Plan Citizen Of [place] Society of Anesthesiologists (ASA) physical status classification: Class III. Anesthetic Preoperative Plan Anesthetic technique: General. Maintenance airway: Oral endotracheal tube. Postoperative pain management: interscalene block. Risks discussed: nausea, vomiting, sore throat, hypotension, allergic reaction, serious complications. Informed consent: signed by patient. 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[place] Appetite loss acute Asthma acute Debility acute Diabetes mellitus acute Hyperlipidemia acute Hypokalemia acute Hypothyroidism acute Osteoarthritis acute Hypertension chronic Fecal impaction of colon res olved Orthostatic hypotension reso lved Osteoarthritis of left shoulder resolved Abdominal pain acute Acute hyponatremia acute Diabetes mellitus acute Hyperlipidemia acute Vomiting and diarrhea acute Hypertension chronic [facility] Work Phone: Evaluation note* Diagnosis Onset Date Resolution Status Appetite loss acute Asthma acute Debility acute Diabetes mellitus acute Hyperlipidemia acute Hypokalemia acute Hypothyroidism acute Osteoarthritis acute Hypertension chronic Fecal impaction of colon res olved Orthostatic hypotension reso lved Osteoarthritis of left shoulder resolved Abdominal pain acute Acute hyponatremia acute Diabetes mellitus acute Hyperlipidemia acute Vomiting and diarrhea acute Hypertension chronic Acute hyponatremia acute [place] (acute kidney injury) ac [place] Bradycardia acute Oral thrush acute [facility] Work Phone: Evaluation note* Diagnosis Onset Date Resolution Status Essential hypertension acute [facility] Work Phone: Evaluation noteNo assessment information available [facility] Work Phone: Evaluation note* Diagnosis Onset Date Resolution Status Acquired hypothyroidism acut e Essential hypertension acute Screening for colon cancer n oneactive Chronic back pain greater than 3 months duration noneactive Establishing care with new doctor, encounter for noneactive Chronic insomnia noneactive Moderate persistent asthma i n adult without complication noneactive Controlled type 2 diabetes mellitus noneactive [facility] Work Phone: Evaluation note* Diagnosis Pain- Primary Generalized [facility] note* Diagnosis Puncture wound of multiple sites of left upper extremity, initial encounter- Primary [facility]* Diagnosis Onset Date Resolution Status Acquired hypothyroidism acut e Essential hypertension acute Colon cancer screening declined noneactive Chronic back pain greater than 3 months duration noneactive Immunization due noneactive Chronic insomnia noneactive Moderate persistent asthma i n adult without complication noneactive Controlled type 2 diabetes mellitus noneactive Tingling of both feet noneac tive Lightheadedness noneactive [facility] Work Phone: Evaluation note* Diagnosis FUO (fever of unknown origin)- Primary Fever, unspecified Viral syndrome Unspecified viral infection, in conditions classified elsewhere and of unspecified site [facility] Diagnosis Onset Date Resolution Status Acquired hypothyroidism acut e Essential hypertension acute Colon cancer screening declined noneactive Chronic back pain greater than 3 months duration noneactive Immunization due noneactive Chronic insomnia noneactive Moderate persistent asthma i n adult without complication noneactive Controlled type 2 diabetes mellitus noneactive Tingling of both feet noneac tive Lightheadedness noneactive Nausea acute [facility] Work Phone: Evaluation note* Diagnosis Onset Date Resolution Status Acquired hypothyroidism acut e Essential hypertension acute Colon cancer screening declined noneactive Chronic back pain greater than 3 months duration noneactive Immunization due noneactive Chronic insomnia noneactive Moderate persistent asthma i n adult without complication noneactive Controlled type 2 diabetes mellitus noneactive Tingling of both feet noneac tive Lightheadedness noneactive Nausea acute Laceration of right lower leg acute [facility] Work Phone: Evaluation note* Diagnosis Onset Date Resolution Status Acquired hypothyroidism acut e Essential hypertension acute Colon cancer screening declined noneactive Chronic back pain greater than 3 months duration noneactive Immunization due noneactive Chronic insomnia noneactive Moderate persistent asthma i n adult without complication noneactive Controlled type 2 diabetes mellitus noneactive Tingling of both feet noneac tive Lightheadedness noneactive Nausea acute Laceration of right lower leg acute Acute nasopharyngitis (common cold) acute [facility] Work Phone: Evaluation note* Diagnosis Onset Date Resolution Status Acquired hypothyroidism acut e Essential hypertension acute Colon cancer screening declined noneactive Chronic back pain greater than 3 months duration noneactive Immunization due noneactive Chronic insomnia noneactive Moderate persistent asthma i n adult without complication noneactive Controlled type 2 diabetes mellitus noneactive Tingling of both feet noneac tive Lightheadedness noneactive Nausea acute Laceration of right lower leg acute Acute nasopharyngitis (common cold) acute Acquired hypothyroidism acut e Essential hypertension acute Rib pain on right side nonea ctive Chronic back pain greater than 3 months duration noneactive Chronic insomnia noneactive Moderate persistent asthma i n adult without complication noneactive Controlled type 2 diabetes mellitus noneactive Leg wound, left acute Leg wound, right acute [facility] Work Phone: Evaluation note* Diagnosis Onset Date Resolution Status Tingling of both feet noneac tive Lightheadedness noneactive Nausea acute Laceration of right lower leg acute Acute nasopharyngitis (common cold) acute Acquired hypothyroidism acut e Essential hypertension acute Rib pain on right side nonea ctive Chronic back pain greater than 3 months duration noneactive Chronic insomnia noneactive Moderate persistent asthma i n adult without complication noneactive Controlled type 2 diabetes mellitus noneactive Leg wound, left acute Leg wound, right acute Cough acute Leg wound, left acute Leg wound, right acute Nail fungus acute Leg wound, left acute Leg wound, right acute Onychomycosis acute [facility] Work Phone: Evaluation note* Diagnosis Onset Date Resolution Status Nausea resolved Laceration of right lower leg resolved Acute nasopharyngitis (common cold) resolved Acquired hypothyroidism acut e Essential hypertension acute Rib pain on right side nonea ctive Chronic back pain greater than 3 months duration noneactive Chronic insomnia noneactive Moderate persistent asthma i n adult without complication noneactive Controlled type 2 diabetes mellitus noneactive Leg wound, left resolved Leg wound, right resolved Nail fungus acute Cough resolved Leg wound, left resolved Leg wound, right resolved Onychomycosis acute Leg wound, left resolved Leg wound, right resolved Acquired hypothyroidism acut e Driving safety issue noneact janki [facility]* Diagnosis Driving safety issue- Primary Other specified personal history presenting hazards to health Syncope and collapse Cognitive deficits Unspecified persistent mental disorders due to conditions classified elsewhere [facility] this encounter [facility]* Diagnosis Onset Date Resolution Status Leg wound, left resolved Leg wound, right resolved Nail fungus acute Cough resolved Leg wound, left resolved Leg wound, right resolved Onychomycosis acute Leg wound, left resolved Leg wound, right resolved Acquired hypothyroidism acut e Driving safety issue noneact janki [facility]* Diagnosis Syncope and collapse- Primary Cognitive deficits Unspecified persistent mental disorders due to conditions classified elsewhere Driving safety issue Other specified personal history presenting hazards to health documented in this encounter [facility] note* Diagnosis Acute gout involving toe of right foot, unspecified cause- Primary documented in this encounter [facility] note* Diagnosis Pain Generalized pain [facility] N[facility] No data available for this section [facility] Hospital Discharge instructions No data available for this section [facility] Hospital Discharge instructionsAmbulatory Orders* Cardiology Location: None [facility] Work Phone: Progress note No data available for this section [facility] Reason for referral (narrative)* Diagnostic Procedure Only (Urgent) - Closed Specialty Diagnoses / Procedures Referred By Darren t Referred To Contact XR IMAGING Diagnoses Pain Procedures XR FOOT GENERAL 3V AP/LAT/OBL LEFT RADEX FOOT COMPLETE MINIMUM 3 VIEWS J Luis Sanches APRN.[employer] [address] [place] [address] Xr Imaging Referral ID Status Reason Start Date Expiration Date V isits Requested Visits Authorized [id number] Closed Auto-Generate d Referral 02/07/2023 03/08/2024 1 1 [facility] for referral (narrative)* Diagnostic Procedure Only (Urgent) - Closed Specialty Diagnoses / Procedures Referred By Contac t Referred To Contact XR IMAGING Diagnoses Pain Procedures XR FOOT GENERAL 3V AP/LAT/OBL LEFT RADEX FOOT COMPLETE MINIMUM 3 VIEWS J Luis Sanches APRN.[employer] [address] [place] [address] [place] [address] Referral ID Status Reason Start Date Expiration Date V isits Requested Visits Authorized [id number] Closed Auto-Generate d Referral 02/07/2023 03/08/2024 1 1 [facility] for referral (narrative)No reason for referral [facility] Work [facility]: reason for visit Narrative* Diagnostic Procedure Only (Urgent) - Closed Specialty Diagnoses / Procedures Referred By Contac t Referred To Contact XR IMAGING Diagnoses Pain Procedures XR FOOT GENERAL 3V AP/LAT/OBL LEFT RADEX FOOT COMPLETE MINIMUM 3 VIEWS J Luis Sanches APRN.[employer] [address] [place] [address] [place] [address] Referral ID Status Reason Start Date Expiration Date V isits Requested Visits Authorized [id number] Closed Auto-Generate d Referral 02/07/2023 03/08/2024 1 1 [facility] Summary Purpose Family History No Family History Records Found Relationship Condition Age at Onset Recorded Date/T ruthy mother Heart valve disease Unknown Hypertension Unknown Cardiac disease Unknown father Pneumonia due to Str eptococcus pneumoniae Unknown Cerebrovascular accident (CVA) Unknown Myocardial infarction Unknown Relationship Condition Age at Onset Recorded Date/T ruthy mother Heart valve disease Unknown Hypertension Unknown Cardiac disease Unknown father Pneumonia due to Str eptococcus pneumoniae Unknown Cerebrovascular accident (CVA) Unknown Myocardial infarction Unknown daughter Diabetes mellitus Unknown grandmother Diabetes mellitus Unknown Advance Directives No Advanced Directives Records Found Advance Directive Response Recorded Date/ Time Name of Medical Power of Idea Man Gabrielle montclair July 29, 2021 3:59pm Name of Medical Power of Idea Man [facility] August 03, 2021 12:24pm Advance Directives Yes May 2:15pm Living Will Yes August 07 1:15am Power of Idea Man Yes August 07, 2021 1:15am Advance Directive Response Recorded Date/ Time Name of Medical Power of Idea Man [facility] August 03, 2021 12:24pm Name of Medical Power of Idea Man [facility] August 07, 2021 1:15am Advance Directives Yes May 2:15pm Living Will Yes November 29, 2021 1 0:11pm Power of Idea Man Yes November 29, 2021 10:11pm Advance Directive Response Recorded Date/ Time Advance Directives Yes May 1:15pm Living Will Yes November 29, 2021 9 :11pm Power of Idea Man Yes November 29, 2021 9:11pm Advance Directive Response Recorded Date/ Time Advance Directives Yes May 2:15pm Living Will Yes November 29, 2021 1 0:11pm Power of Idea Man Yes November 29, 2021 10:11pm Documents on File Type Date Recorded 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 No March 19, 2024 10:02am Advance Directives Yes May 2:15pm Advance Directive Response Recorded Date/ Time Advance Directives Yes May 2:15pm Chief Complaint and Reason for Visit Chief Complaint SCREENING LEFT SHOULDER TRUE SIGHT WOUND WOUND LT TOTAL SHOULDER REVERSE LT TOTAL SHOULDER REVERSE LT TOTAL SHOULDER REVERSE LT TOTAL SHOULDER REVERSE LT TOTAL SHOULDER REVERSE LT TOTAL SHOULDER REVERSE LT TOTAL SHOULDER REVERSE LEFT TOTAL SHOULDER GASTROENTERITIS, HYPONATREMIA GASTROENTERITIS, HYPONATREMIA GASTROENTERITIS, HYPONATREMIA Reason for Visit Asthma Debility Diabetes mellitus GERD (gastroesophageal reflux disease) Hyperlipidemia Nausea vomiting and diarrhea Other acute postprocedural pain Status post reverse total arthroplasty of left shoulder Hypertension Orthostatic hypotension Appetite loss Asthma Debility Diabetes mellitus Hyperlipidemia Hypokalemia Hypothyroidism Osteoarthritis Hypertension Fecal impaction of colon Orthostatic hypotension Osteoarthritis of left shoulder Abdominal pain Acute hyponatremia Diabetes mellitus Hyperlipidemia Vomiting and diarrhea Hypertension Chief Complaint LEFT SHOULDER JOE E SIGHT WOUND WOUND LT TOTAL SHOULDER REVERSE LT TOTAL SHOULDER REVERSE LT TOTAL SHOULDER REVERSE LT TOTAL SHOULDER REVERSE LT TOTAL SHOULDER REVERSE LT TOTAL SHOULDER REVERSE LT TOTAL SHOULDER REVERSE LEFT TOTAL SHOULDER GASTROENTERITIS, HYPONATREMIA GASTROENTERITIS, HYPONATREMIA GASTROENTERITIS, HYPONATREMIA Reason for Visit Asthma Debility Diabetes mellitus GERD (gastroesophageal reflux disease) Hyperlipidemia Nausea vomiting and diarrhea Other acute postprocedural pain Status post reverse total arthroplasty of left shoulder Hypertension Orthostatic hypotension Appetite loss Asthma Debility Diabetes mellitus Hyperlipidemia Hypokalemia Hypothyroidism Osteoarthritis Hypertension Fecal impaction of colon Orthostatic hypotension Osteoarthritis of left shoulder Abdominal pain Acute hyponatremia Diabetes mellitus Hyperlipidemia Vomiting and diarrhea Hypertension Chief Complaint LT TOTAL SHOULDER RE VERSE LT TOTAL SHOULDER REVERSE LT TOTAL SHOULDER REVERSE LT TOTAL SHOULDER REVERSE LT TOTAL SHOULDER REVERSE LT TOTAL SHOULDER REVERSE LT TOTAL SHOULDER REVERSE LEFT TOTAL SHOULDER GASTROENTERITIS, HYPONATREMIA GASTROENTERITIS, HYPONATREMIA GASTROENTERITIS, HYPONATREMIA Reason for Visit Asthma Debility Diabetes mellitus GERD (gastroesophageal reflux disease) Hyperlipidemia Nausea vomiting and diarrhea Other acute postprocedural pain Status post reverse total arthroplasty of left shoulder Hypertension Orthostatic hypotension Appetite loss Asthma Debility Diabetes mellitus Hyperlipidemia Hypokalemia Hypothyroidism Osteoarthritis Hypertension Fecal impaction of colon Orthostatic hypotension Osteoarthritis of left shoulder Abdominal pain Acute hyponatremia Diabetes mellitus Hyperlipidemia Vomiting and diarrhea Hypertension Chief Complaint LEFT TOTAL SHOULDER GASTROENTERITIS, HYPONATREMIA GASTROENTERITIS, HYPONATREMIA GASTROENTERITIS, HYPONATREMIA HYPONATREMIA HYPONATREMIA-GENERALIZED WEAKNESS HYPONATREMIA-GENERALIZED WEAKNESS HYPONATREMIA-GENERALIZED WEAKNESS Reason for Visit Appetite loss Asthma Debility Diabetes mellitus Hyperlipidemia Hypokalemia Hypothyroidism Osteoarthritis Hypertension Fecal impaction of colon Orthostatic hypotension Osteoarthritis of left shoulder Abdominal pain Acute hyponatremia Diabetes mellitus Hyperlipidemia Vomiting and diarrhea Hypertension Acute hyponatremia YASMANY (acute kidney injury) Bradycardia Oral thrush Chief Complaint CP Bicipital tendinitis, right shoulder Primary osteoarthritis, right shoulder Reason for Visit Essential hypertensi on Chief Complaint Bicipital tendinitis , right shoulder Primary osteoarthritis, right shoulder COUGH,ASTHEMA Chief Complaint EST PT CARE Reason for Visit Acquired hypothyroid ism Essential hypertension Screening for colon cancer Chronic back pain greater than 3 months duration Establishing care with new doctor, encounter for Chronic insomnia Moderate persistent asthma in adult without complication Controlled type 2 diabetes mellitus Chief Complaint 3 M FU GOUT PAIN IN FEET Reason for Visit Acquired hypothyroid ism Essential hypertension Colon cancer screening declined Chronic back pain greater than 3 months duration Immunization due Chronic insomnia Moderate persistent asthma in adult without complication Controlled type 2 diabetes mellitus Tingling of both feet Lightheadedness Chief Complaint 3 M FU GOUT PAIN IN FEET NAUSEA / ACHEY / CHILLS E ORDERS NAUSEA AND VOMITING Reason for Visit Acquired hypothyroid ism Essential hypertension Colon cancer screening declined Chronic back pain greater than 3 months duration Immunization due Chronic insomnia Moderate persistent asthma in adult without complication Controlled type 2 diabetes mellitus Tingling of both feet Lightheadedness Nausea Chief Complaint 3 M FU GOUT PAIN IN FEET NAUSEA / ACHEY / CHILLS E ORDERS NAUSEA AND VOMITING RT LOWER LEG PAIN & BRUISING Reason for Visit Acquired hypothyroid ism Essential hypertension Colon cancer screening declined Chronic back pain greater than 3 months duration Immunization due Chronic insomnia Moderate persistent asthma in adult without complication Controlled type 2 diabetes mellitus Tingling of both feet Lightheadedness Nausea Laceration of right lower leg Chief Complaint 3 M FU GOUT PAIN IN FEET NAUSEA / ACHEY / CHILLS E ORDERS NAUSEA AND VOMITING RT LOWER LEG PAIN & BRUISING ACUTE COLD SYMPTOMS Reason for Visit Acquired hypothyroid ism Essential hypertension Colon cancer screening declined Chronic back pain greater than 3 months duration Immunization due Chronic insomnia Moderate persistent asthma in adult without complication Controlled type 2 diabetes mellitus Tingling of both feet Lightheadedness Nausea Laceration of right lower leg Acute nasopharyngitis (common cold) Chief Complaint 3 M FU GOUT PAIN IN FEET NAUSEA / ACHEY / CHILLS E ORDERS NAUSEA AND VOMITING RT LOWER LEG PAIN & BRUISING ACUTE COLD SYMPTOMS 3 M FU SPOTS ON RIGHT LEG NOT HEALING Reason for Visit Acquired hypothyroid ism Essential hypertension Colon cancer screening declined Chronic back pain greater than 3 months duration Immunization due Chronic insomnia Moderate persistent asthma in adult without complication Controlled type 2 diabetes mellitus Tingling of both feet Lightheadedness Nausea Laceration of right lower leg Acute nasopharyngitis (common cold) Acquired hypothyroidism Essential hypertension Rib pain on right side Chronic back pain greater than 3 months duration Chronic insomnia Moderate persistent asthma in adult without complication Controlled type 2 diabetes mellitus Leg wound, left Leg wound, right Chief Complaint GOUT PAIN IN FEET NAUSEA / ACHEY / CHILLS E ORDERS NAUSEA AND VOMITING RT LOWER LEG PAIN & BRUISING ACUTE COLD SYMPTOMS 3 M FU SPOTS ON RIGHT LEG NOT HEALING 1 WK FU 2 W FU Reason for Visit Tingling of both fee t Lightheadedness Nausea Laceration of right lower leg Acute nasopharyngitis (common cold) Acquired hypothyroidism Essential hypertension Rib pain on right side Chronic back pain greater than 3 months duration Chronic insomnia Moderate persistent asthma in adult without complication Controlled type 2 diabetes mellitus Leg wound, left Leg wound, right Cough Leg wound, left Leg wound, right Nail fungus Leg wound, left Leg wound, right Onychomycosis Chief Complaint NAUSEA / ACHEY / CHI LLS E ORDERS NAUSEA AND VOMITING RT LOWER LEG PAIN & BRUISING ACUTE COLD SYMPTOMS 3 M FU SPOTS ON RIGHT LEG NOT HEALING 1 WK FU 2 W FU discuss driving Reason for Visit Nausea Laceration of right lower leg Acute nasopharyngitis (common cold) Acquired hypothyroidism Essential hypertension Rib pain on right side Chronic back pain greater than 3 months duration Chronic insomnia Moderate persistent asthma in adult without complication Controlled type 2 diabetes mellitus Leg wound, left Leg wound, right Nail fungus Cough Leg wound, left Leg wound, right Onychomycosis Leg wound, left Leg wound, right Acquired hypothyroidism Driving safety issue Nail abnormalities Chief Complaint SPOTS ON RIGHT LEG N OT HEALING 1 WK FU 2 W FU discuss driving Reason for Visit Leg wound, left Leg wound, right Nail fungus Cough Leg wound, left Leg wound, right Onychomycosis Leg wound, left Leg wound, right Acquired hypothyroidism Driving safety issue Nail abnormalities Chief Complaint Admit Date MOBILITY September 13, 2024 2:15 pm FLU LIKE SYMPTOMS September 30, 2024 12: 34pm 3 M FU October 16, 2024 12:3 0pm CAROTID BRUIT/STENOSIS December 19, 2024 1 :52pm COLD SWEATS, SHAKING December 21, 2024 7:2 6am Reason for Visit Admit Date Acquired hypothyroidism September 13, 2024 2:15pm Essential hypertension September 13, 2024 2 :15pm Impaired mobility September 13, 2024 2:15 pm Chronic back pain greater than 3 months duration September 13, 2024 2:15pm Chronic insomnia September 13, 2024 2:15 pm Moderate persistent asthma in adult with out complication September 13, 2024 2:15pm Prediabetes September 13, 2024 2:15 pm Maxillary sinusitis September 30, 2024 12: 34pm Fecal incontinence October 16, 2024 12:3 0pm Reason for Visit Admit Date Acquired hypothyroidism September 13, 2024 2:15pm Essential hypertension September 13, 2024 2 :15pm Impaired mobility September 13, 2024 2:15 pm Chronic back pain greater than 3 months duration September 13, 2024 2:15pm Chronic insomnia September 13, 2024 2:15 pm Moderate persistent asthma in adult with out complication September 13, 2024 2:15pm Prediabetes September 13, 2024 2:15 pm Maxillary sinusitis September 30, 2024 12: 34pm Fecal incontinence October 16, 2024 12:3 0pm Hypotension December 21, 2024 7:26 am Chief Complaint Admit Date MOBILITY September 13, 2024 2:15 pm FLU LIKE SYMPTOMS September 30, 2024 12: 34pm 3 M FU October 16, 2024 12:3 0pm CAROTID BRUIT/STENOSIS December 19, 2024 1 :52pm COLD SWEATS, SHAKING December 21, 2024 7:2 6am BP FOLLOW UP December 28, 2024 12:1 6pm Chief Complaint Admit Date MOBILITY September 13, 2024 2:15 pm FLU LIKE SYMPTOMS September 30, 2024 12: 34pm 3 M FU October 16, 2024 12:3 0pm CAROTID BRUIT/STENOSIS December 19, 2024 1 :52pm COLD SWEATS, SHAKING December 21, 2024 7:2 6am BP FOLLOW UP December 28, 2024 12:1 6pm 3 M FU January 08, 2025 7:51a m Reason for Visit Admit Date Acquired hypothyroidism September 13, 2024 2:15pm Essential hypertension September 13, 2024 2 :15pm Impaired mobility September 13, 2024 2:15 pm Chronic back pain greater than 3 months duration September 13, 2024 2:15pm Chronic insomnia September 13, 2024 2:15 pm Moderate persistent asthma in adult with out complication September 13, 2024 2:15pm Prediabetes September 13, 2024 2:15 pm Maxillary sinusitis September 30, 2024 12: 34pm Fecal incontinence October 16, 2024 12:3 0pm Hypotension December 21, 2024 7:26 am Carotid stenosis December 28, 2024 12:1 6pm Hypotension December 28, 2024 12:1 6pm Acquired hypothyroidism January 08, 2025 7 :51am Essential hypertension January 08, 2025 7: 51am Chronic back pain greater than 3 months duration January 08, 2025 7:51am Chronic insomnia January 08, 2025 7:51a m Moderate persistent asthma in adult with out complication January 08, 2025 7:51am Prediabetes January 08, 2025 7:51a m Chief Complaint Admit Date FLU LIKE SYMPTOMS September 30, 2024 12: 34pm 3 M FU October 16, 2024 12:3 0pm CAROTID BRUIT/STENOSIS December 19, 2024 1 :52pm COLD SWEATS, SHAKING December 21, 2024 7:2 6am BP FOLLOW UP December 28, 2024 12:1 6pm 3 M FU January 08, 2025 7:51a m screening January 17, 2025 1:16 pm Reason for Visit Admit Date Maxillary sinusitis September 30, 2024 12: 34pm Fecal incontinence October 16, 2024 12:3 0pm Hypotension December 21, 2024 7:26 am Carotid stenosis December 28, 2024 12:1 6pm Hypotension December 28, 2024 12:1 6pm Acquired hypothyroidism January 08, 2025 7 :51am Essential hypertension January 08, 2025 7: 51am Screening for depression January 08, 2025 7:51am Chronic back pain greater than 3 months duration January 08, 2025 7:51am Chronic insomnia January 08, 2025 7:51a m Moderate persistent asthma in adult with out complication January 08, 2025 7:51am Prediabetes January 08, 2025 7:51a m Chief Complaint Admit Date 3 M FU October 16, 2024 12:3 0pm CAROTID BRUIT/STENOSIS December 19, 2024 1 :52pm COLD SWEATS, SHAKING December 21, 2024 7:2 6am BP FOLLOW UP December 28, 2024 12:1 6pm 3 M FU January 08, 2025 7:51a m screening January 17, 2025 1:16 pm Hypotension, unspecified January 25, 2025 2:24pm Reason for Visit Admit Date Fecal incontinence October 16, 2024 12:3 0pm Hypotension December 21, 2024 7:26 am Carotid stenosis December 28, 2024 12:1 6pm Hypotension December 28, 2024 12:1 6pm Acquired hypothyroidism January 08, 2025 7 :51am Essential hypertension January 08, 2025 7: 51am Screening for depression January 08, 2025 7:51am Chronic back pain greater than 3 months duration January 08, 2025 7:51am Chronic insomnia January 08, 2025 7:51a m Moderate persistent asthma in adult with out complication January 08, 2025 7:51am Prediabetes January 08, 2025 7:51a m Chief Complaint Admit Date 3 M FU October 16, 2024 12:3 0pm CAROTID BRUIT/STENOSIS December 19, 2024 1 :52pm COLD SWEATS, SHAKING December 21, 2024 7:2 6am BP FOLLOW UP December 28, 2024 12:1 6pm 3 M FU January 08, 2025 7:51a m screening January 17, 2025 1:16 pm Hypotension, unspecified January 25, 2025 2:24pm Occlusion and stenosis of left carotid a rtery February 04, 2025 2:44pm Chief Complaint Admit Date 3 M FU January 08, 2025 7:51a m screening January 17, 2025 1:16 pm Hypotension, unspecified January 25, 2025 2:24pm Occlusion and stenosis of left carotid a rtery February 04, 2025 2:44pm Discuss Results April 24, 2025 2 :42pm Reason for Visit Admit Date Acquired hypothyroidism January 08, 2025 7 :51am Essential hypertension January 08, 2025 7: 51am Screening for depression January 08, 2025 7:51am Chronic back pain greater than 3 months duration January 08, 2025 7:51am Chronic insomnia January 08, 2025 7:51a m Moderate persistent asthma in adult with out complication January 08, 2025 7:51am Prediabetes January 08, 2025 7:51a m Left carotid stenosis April 24, 2025 2:42pm Additional Source Comments INFORMATION SOURCE (unrecogn ized section and content) DATE CREATED AUTHOR 12/25/2017 [facility] DATE CREATED AUTHOR AUTHOR'S ORGANIZ ATION 12/25/2017 [facility] DATE CREATED AUTHOR AUTHOR'S ORGANIZ ATION 10/10/2023 [facility] ([place] DATE CREATED AUTHOR AUTHOR'S ORGANIZ ATION 01/01/2024 [facility] DATE CREATED AUTHOR AUTHOR'S ORGANIZ ATION 03/31/2024 [facility] DATE CREATED AUTHOR AUTHOR'S ORGANIZ ATION 05/20/2025 [facility] Goals (unrecognized section and content) Goals may be documented in a n alternate sectionGoals may be documented in an alternate sectionGoals may be documented in an alternate sectionGoals may be documented in an alternate sectionGoals may be documented in an alternate sectionGoals may be documented in an alternate section No data available for this sectionGoals may be documented in an alternate section No data available for this sectionGoals may be documented in an alternate sectionGoals may be documented in an alternate sectionGoals may be documented in an alternate sectionGoals may be documented in an alternate sectionGoals may be documented in an alternate sectionGoals may be documented in an alternate section No data available for this sectionGoals may be documented in an alternate sectionGoals may be documented in an alternate sectionGoals may be documented in an alternate section No data available for this sectionGoals may be documented in an alternate sectionGoals may be documented in an alternate section No data available for this sectionGoals may be documented in an alternate sectionGoals may be documented in an alternate sectionGoals may be documented in an alternate sectionGoals may be documented in an alternate sectionGoals may be documented in an alternate sectionGoals may be documented in an alternate sectionGoals may be documented in an alternate sectionGoals may be documented in an alternate sectionGoals may be documented in an alternate sectionGoals may be documented in an alternate sectionGoals may be documented in an alternate section Care Team (unrecognized sect ion and content) Care Team Personnel Name: OSCAR ADHIKARI MD Member Role: Primary Care Physician Address: Address: [address] [place] [address] [place] [address] [place] [address] Care Team Related Persons Name: [employer] Care Team Personnel Name: OSCAR ADHIKARI MD Member Role: Primary Care Physician Address: Address: [address] [place] [address] [place], [place] [id number] Care Team Related Persons Name: [employer] Care Teams (unrecognized sec tion and content) Team Status: Active Member Role Status Dates Dr. Jaime Culver MD Family Provider Active Dr. Oscar Adhikari MD Primary Care Provider Active Team Status: Inactive Member Role Status Dates Dr. Oscar Adhikari MD Primary Care Provider Active Dr. Mikey Oropeza MD Attending Provider Active Team Status: Inactive Member Role Status Dates Dr. Oscar Adhikari MD Primary Care Provider Active Dr. Harshad Camacho MD Attending Provider, Referring Pr ovider Active Team Status: Inactive Member Role Status Dates Dr. Oscar Adhikari MD Primary Care Provider Active Dr. Mathew Freeman MD Attending Provider Active Team Status: Inactive Member Role Status Dates Dr. Oscar Adhikari MD Primary Care Provider Active Dr. Rima Martin MD Attending Provider Active Team Status: Active Member Role Status Dates Dr. Jaime Culver MD Family Provider Active Dr. Dionne Magaña MD Primary Care Provider Active Team Status: Inactive Member Role Status Dates Dr. Oscar Adhikari MD Primary Care Provider, Referring Provider Active Dr. Dionne Magaña MD Attending Provider Active Team Status: Inactive Member Role Status Dates Dr. Dionne Magaña MD Primary Care Pro vider, Attending Provider, Referring Provider Active Team Status: Active Member Role Status Dates Dr. Dionne Magaña MD Primary Care Provider, Attendi ng Provider Active Team Status: Inactive Member Role Status Dates Dr. 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 Dionne Magaña MD Primary Care Provider Active Dr. Harshad Camacho MD Attending Provider, Referring Pr ovider Active Team Status: Inactive Member Role Status Dates Dr. 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 Dionne Magaña MD Primary Care Provider, Referri ng Provider Active Dayday DOW PA Attending Provider Active Team Status: Active Member Role Status Dates Dr. Dionne Magaña MD Primary Care Provider Active Dayday DOW PA Attending Provider, Referring Prov ider Active Team Status: Inactive Member Role Status Dates Dr. Dionne Magaña MD Primary Care Provider Active Dayday DOW PA Attending Provider, Referring Prov ider Active Team Status: Inactive Member Role Status Dates Dr. Dionne Magaña MD Primary Care Provider, Referri ng Provider Active Federico DOW, PA Attending Provider Active Team Status: Inactive Member Role Status Dates LEANN Lester Attending Provider Active Dr. Dionne Magaña MD Primary Care Provider, Referri ng Provider Active Team Status: Inactive Member Role Status Dates Dr. Dionne Magaña MD Primary Care Provider Active LEANN Lester Attending Provider Active Team Status: Inactive Member Role Status Dates Dr. Dionne Magaña MD Primary Care Provider, Referri ng Provider Active LEANN Lester Attending Provider Active Team Status: Inactive Member Role Status Dates Dr. 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 Dionne Magaña MD Primary Care Provider Active Team Status: Inactive Member Role Status Dates Dr. Dionne Magaña MD Primary Care Provider Active Start: September 13, 2024 End: September 13, 2024 Dr. Dionne Magaña MD Attending Provider Active Start: September 13, 2024 End: September 13, 2024 Dr. Dionne Magaña MD Referring Provider Active Start: September 13, 2024 End: September 13, 2024 Team Status: Inactive Member Role Status Dates Dr. Dionne Magaña MD Primary Care Provider Active Start: September 30, 2024 End: September 30, 2024 Dr. Dionne Magaña MD Referring Provider Active Start: September 30, 2024 End: September 30, 2024 Andrew Chang BO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, BO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-C Attending Provider Active S tart: September 30, 2024 End: September 30, 2024 Team Status: Inactive Member Role Status Dates Dr. Dionne Magaña MD Primary Care Provider Active Start: October 16, 2024 End: October 16, 2024 Dr. Dionne Magaña MD Referring Provider Active Start: October 16, 2024 End: October 16, 2024 VICTOR M Sherman Attending Provider Active Start: October 16, 2024 End: October 16, 2024 Team Status: Active Member Role Status Dates Dr. Dionne Magaña MD Primary Care Provider Active Start: December 19, 2024 VICTOR M Jimenez Attending Provider Active Star t: December 19, 2024 VICTOR M Jimenez Referring Provider Active Star t: December 19, 2024 Team Status: Active Member Role Status Dates Dr. Dionne Magaña MD Primary Care Provider Active Start: December 19, 2024 Dr. Dusty Harman MD Attending Provider Active S tart: December 19, 2024 Team Status: Inactive Member Role Status Dates Dr. Dionne Magaña MD Primary Care Provider Active Start: December 21, 2024 End: December 21, 2024 Dr. Dionne Magaña MD Referring Provider Active Start: December 21, 2024 End: December 21, 2024 Dayday DOW PA Attending Provider Active St art: December 21, 2024 End: December 21, 2024 Team Status: Active Member Role Status Dates Dr. Dionne Magaña MD Primary Care Provider Active Start: December 21, 2024 Dayday DOW PA Attending Provider Active St art: December 21, 2024 Dayday DOW PA Referring Provider Active St art: December 21, 2024 Team Status: Inactive Member Role Status Dates Dr. Dionne Magaña MD Primary Care Provider Active Start: December 19, 2024 End: December 19, 2024 VICTOR M Jimenez Attending Provider Active Star t: December 19, 2024 End: December 19, 2024 VICTOR M Jimenez Referring Provider Active Star t: December 19, 2024 End: December 19, 2024 Team Status: Inactive Member Role Status Dates Dr. Dionne Magaña MD Primary Care Provider Active Start: December 21, 2024 End: December 21, 2024 Dayday DOW PA Attending Provider Active St art: December 21, 2024 End: December 21, 2024 Dayday DOW PA Referring Provider Active St art: December 21, 2024 End: December 21, 2024 Team Status: Inactive Member Role Status Dates Dr. Dionne Magaña MD Primary Care Provider Active Start: December 28, 2024 End: December 28, 2024 Dr. Dionne Magaña MD Referring Provider Active Start: December 28, 2024 End: December 28, 2024 Dayday DOW PA Attending Provider Active St art: December 28, 2024 End: December 28, 2024 Team Status: Active Member Role/Relationship Status Dates Dr. Dionne Magaña MD Primary Care Provider Active Team Status: Inactive Member Role/Relationship Status Dates Dr. Dionne Magaña MD Primary Care Provider Active Start: September 13, 2024 End: September 13, 2024 Dr. Dionne Magaña MD Attending Provider Active Start: September 13, 2024 End: September 13, 2024 Dr. Dionne Magaña MD Referring Provider Active Start: September 13, 2024 End: September 13, 2024 Team Status: Inactive Member Role/Relationship Status Dates Dr. Dionne Magaña MD Primary Care Provider Active Start: September 30, 2024 End: September 30, 2024 Dr. Dionne Magaña MD Referring Provider Active Start: September 30, 2024 End: September 30, 2024 Andrew Chang BO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, BO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-C Attending Provider Active S tart: September 30, 2024 End: September 30, 2024 Team Status: Inactive Member Role/Relationship Status Dates Dr. Dionne Magaña MD Primary Care Provider Active Start: October 16, 2024 End: October 16, 2024 Dr. Dionne Magaña MD Referring Provider Active Start: October 16, 2024 End: October 16, 2024 VICTOR M Sherman Attending Provider Active Start: October 16, 2024 End: October 16, 2024 Team Status: Inactive Member Role/Relationship Status Dates Dr. Dionne Magaña MD Primary Care Provider Active Start: December 19, 2024 End: December 19, 2024 VICTOR M Jimenez Attending Provider Active Star t: December 19, 2024 End: December 19, 2024 VICTOR M Jimenez Referring Provider Active Star t: December 19, 2024 End: December 19, 2024 Team Status: Active Member Role/Relationship Status Dates Dr. Dionne Magaña MD Primary Care Provider Active Start: December 19, 2024 Dr. Dusty Harman MD Attending Provider Active S tart: December 19, 2024 VICTOR M Jimenez Referring Provider Active Star t: December 19, 2024 Team Status: Inactive Member Role/Relationship Status Dates Dr. Dionne Magaña MD Primary Care Provider Active Start: December 21, 2024 End: December 21, 2024 Dr. Dionne Magaña MD Referring Provider Active Start: December 21, 2024 End: December 21, 2024 VICTOR M Kilgore Attending Provider Active St art: December 21, 2024 End: December 21, 2024 Team Status: Inactive Member Role/Relationship Status Dates Dr. Dionne Maagña MD Primary Care Provider Active Start: December 21, 2024 End: December 21, 2024 VICTOR M Kilgore Attending Provider Active St art: December 21, 2024 End: December 21, 2024 VICTOR M Kilgore Referring Provider Active St art: December 21, 2024 End: December 21, 2024 Team Status: Inactive Member Role/Relationship Status Dates Dr. Dionne Magaña MD Primary Care Provider Active Start: December 28, 2024 End: December 28, 2024 Dr. Dionne Magaña MD Referring Provider Active Start: December 28, 2024 End: December 28, 2024 VICTOR M Kilgore Attending Provider Active St art: December 28, 2024 End: December 28, 2024 Team Status: Inactive Member Role/Relationship Status Dates Dr. Dionne Magaña MD Primary Care Provider Active Start: January 08, 2025 End: January 08, 2025 Dr. Dionne Magaña MD Attending Provider Active Start: January 08, 2025 End: January 08, 2025 Dr. Dionne Magaña MD Referring Provider Active Start: January 08, 2025 End: January 08, 2025 Team Status: Inactive Member Role/Relationship Status Dates Dr. Dionne Magaña MD Primary Care Provider Active Start: September 30, 2024 End: September 30, 2024 Dr. Dionne Magaña MD Referring Provider Active Start: September 30, 2024 End: September 30, 2024 Andrew Chang BO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, BO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-C Attending Provider Active S tart: September 30, 2024 End: September 30, 2024 Team Status: Inactive Member Role/Relationship Status Dates Dr. Dionne Magaña MD Primary Care Provider Active Start: October 16, 2024 End: October 16, 2024 Dr. Dionne Magaña MD Referring Provider Active Start: October 16, 2024 End: October 16, 2024 VICTOR M Sherman Attending Provider Active Start: October 16, 2024 End: October 16, 2024 Team Status: Inactive Member Role/Relationship Status Dates Dr. Dionne Magaña MD Primary Care Provider Active Start: December 19, 2024 End: December 19, 2024 VICTOR M Jimenez Attending Provider Active Star t: December 19, 2024 End: December 19, 2024 VICTOR M Jimenez Referring Provider Active Star t: December 19, 2024 End: December 19, 2024 Team Status: Active Member Role/Relationship Status Dates Dr. Dionne Magaña MD Primary Care Provider Active Start: December 19, 2024 Dr. Dusty Harman MD Attending Provider Active S tart: December 19, 2024 VICTOR M Jimenez Referring Provider Active Star t: December 19, 2024 Team Status: Inactive Member Role/Relationship Status Dates Dr. Dionne Magaña MD Primary Care Provider Active Start: December 21, 2024 End: December 21, 2024 Dr. Dionne Magaña MD Referring Provider Active Start: December 21, 2024 End: December 21, 2024 VICTOR M Kilgore Attending Provider Active St art: December 21, 2024 End: December 21, 2024 Team Status: Inactive Member Role/Relationship Status Dates Dr. Dionne Magaña MD Primary Care Provider Active Start: December 21, 2024 End: December 21, 2024 VICTOR M Kilgore Attending Provider Active St art: December 21, 2024 End: December 21, 2024 VICTOR M Kilgore Referring Provider Active St art: December 21, 2024 End: December 21, 2024 Team Status: Inactive Member Role/Relationship Status Dates Dr. Dionne Magaña MD Primary Care Provider Active Start: December 28, 2024 End: December 28, 2024 Dr. Dionne Magaña MD Referring Provider Active Start: December 28, 2024 End: December 28, 2024 VICTOR M Kilgore Attending Provider Active St art: December 28, 2024 End: December 28, 2024 Team Status: Inactive Member Role/Relationship Status Dates Dr. Dionne Magaña MD Primary Care Provider Active Start: January 08, 2025 End: January 08, 2025 Dr. Dionne Magaña MD Attending Provider Active Start: January 08, 2025 End: January 08, 2025 Dr. Dionne Magaña MD Referring Provider Active Start: January 08, 2025 End: January 08, 2025 Team Status: Inactive Member Role/Relationship Status Dates Dr. Dionne Magaña MD Primary Care Provider Active Start: January 17, 2025 End: January 17, 2025 Dr. Dionne Magaña MD Attending Provider Active Start: January 17, 2025 End: January 17, 2025 Dr. Dionne Magaña MD Referring Provider Active Start: January 17, 2025 End: January 17, 2025 Team Status: Inactive Member Role/Relationship Status Dates Dr. Dionne Magaña MD Primary Care Provider Active Start: October 16, 2024 End: October 16, 2024 Dr. Dionne Magaña MD Referring Provider Active Start: October 16, 2024 End: October 16, 2024 VICTOR M Sherman Attending Provider Active Start: October 16, 2024 End: October 16, 2024 Team Status: Inactive Member Role/Relationship Status Dates Dr. Dionne Magaña MD Primary Care Provider Active Start: December 19, 2024 End: December 19, 2024 VICTOR M Jimenez Attending Provider Active Star t: December 19, 2024 End: December 19, 2024 VICTOR M Jimenez Referring Provider Active Star t: December 19, 2024 End: December 19, 2024 Team Status: Active Member Role/Relationship Status Dates Dr. Dionne Magaña MD Primary Care Provider Active Start: December 19, 2024 Dr. Dusty Harman MD Attending Provider Active S tart: December 19, 2024 VICTOR M Jimenez Referring Provider Active Star t: December 19, 2024 Team Status: Inactive Member Role/Relationship Status Dates Dr. Dionne Magaña MD Primary Care Provider Active Start: December 21, 2024 End: December 21, 2024 Dr. Dionne Magaña MD Referring Provider Active Start: December 21, 2024 End: December 21, 2024 VICTOR M Kilgore Attending Provider Active St art: December 21, 2024 End: December 21, 2024 Team Status: Inactive Member Role/Relationship Status Dates Dr. Dionne Magaña MD Primary Care Provider Active Start: December 21, 2024 End: December 21, 2024 Dayday DOW PA Attending Provider Active St art: December 21, 2024 End: December 21, 2024 Dayday DOW PA Referring Provider Active St art: December 21, 2024 End: December 21, 2024 Team Status: Inactive Member Role/Relationship Status Dates Dr. Dionne Magaña MD Primary Care Provider Active Start: December 28, 2024 End: December 28, 2024 Dr. Dionne Magaña MD Referring Provider Active Start: December 28, 2024 End: December 28, 2024 Dayday DOW PA Attending Provider Active St art: December 28, 2024 End: December 28, 2024 Team Status: Inactive Member Role/Relationship Status Dates Dr. Dionne Magaña MD Primary Care Provider Active Start: January 08, 2025 End: January 08, 2025 Dr. Dionne Magaña MD Attending Provider Active Start: January 08, 2025 End: January 08, 2025 Dr. Dionne Magaña MD Referring Provider Active Start: January 08, 2025 End: January 08, 2025 Team Status: Inactive Member Role/Relationship Status Dates Dr. Dionne Magaña MD Primary Care Provider Active Start: January 17, 2025 End: January 17, 2025 Dr. Dionne Magaña MD Attending Provider Active Start: January 17, 2025 End: January 17, 2025 Dr. Dionne Magaña MD Referring Provider Active Start: January 17, 2025 End: January 17, 2025 Team Status: Inactive Member Role/Relationship Status Dates Dr. Dionne Magaña MD Primary Care Provider Active Start: January 25, 2025 End: January 25, 2025 VICTOR M Kilgore Attending Provider Active St art: January 25, 2025 End: January 25, 2025 Dayday DOW PA Referring Provider Active St art: January 25, 2025 End: January 25, 2025 Team Status: Active Member Role/Relationship Status Dates Dr. Dionne Magaña MD Primary Care Provider Active Start: January 25, 2025 Dr. Chang Mercado MD Attending Provider Active S tart: January 25, 2025 Team Status: Inactive Member Role/Relationship Status Dates Dr. Dionne Magaña MD Primary Care Provider Active Start: February 04, 2025 End: February 04, 2025 VICTOR M Jimenez Attending Provider Active Star t: February 04, 2025 End: February 04, 2025 VICTOR M Jimenez Referring Provider Active Star t: February 04, 2025 End: February 04, 2025 Team Status: Active Member Role/Relationship Status Dates Dr. Dionne Magaña MD Primary care physician Active Team Status: Inactive Member Role/Relationship Status Dates Dr. Dionne Magaña MD Primary care physician Active Start: January 08, 2025 End: January 08, 2025 Dr. Dionne Magaña MD Attending physician Active Start: January 08, 2025 End: January 08, 2025 Dr. Dionne Magaña MD Referring Provider Active Start: January 08, 2025 End: January 08, 2025 Team Status: Inactive Member Role/Relationship Status Dates Dr. Dionne Magaña MD Primary care physician Active Start: January 17, 2025 End: January 17, 2025 Dr. Dionne Magaña MD Attending physician Active Start: January 17, 2025 End: January 17, 2025 Dr. Dionne Magaña MD Referring Provider Active Start: January 17, 2025 End: January 17, 2025 Team Status: Inactive Member Role/Relationship Status Dates Dr. Dionne Magaña MD Primary care physician Active Start: January 25, 2025 End: January 25, 2025 VICTORM Kilgore Attending physician Active S tart: January 25, 2025 End: January 25, 2025 VICTOR M Kilgore Referring Provider Active St art: January 25, 2025 End: January 25, 2025 Team Status: Active Member Role/Relationship Status Dates Dr. Dionne Magaña MD Primary care physician Active Start: January 25, 2025 Dr. Chang Mercado MD Attending physician Active Start: January 25, 2025 Team Status: Inactive Member Role/Relationship Status Dates Dr. Dionne Magaña MD Primary care physician Active Start: February 04, 2025 End: February 04, 2025 VICTOR M Jimenez Attending physician Active Sta rt: February 04, 2025 End: February 04, 2025 VICTOR M Jimenez Referring Provider Active Star t: February 04, 2025 End: February 04, 2025 Team Status: Inactive Member Role/Relationship Status Dates Dr. Dionne Magaña MD Primary care physician Active Start: April 24, 2025 End: April 24, 2025 Dr. Dionne Magaña MD Referring Provider Active Start: April 24, 2025 End: April 24, 2025 Dr. Dusty Harman MD Attending physician Active Start: April 24, 2025 End: April 24, 2025 Source Comments (unrecognize d section and content) In the event this informatio n is protected by the Federal Confidentiality of Alcohol and Drug Abuse Patient Records regulations: The Federal rules restrict any use of the information to criminally investigate or prosecute any alcohol or drug abuse patient.[facility] the event this information is protected by the Federal Confidentiality of Alcohol and Drug Abuse Patient Records regulations: The Federal rules restrict any use of the information to criminally investigate or prosecute any alcohol or drug abuse patient.[facility] the event this information is protected by the Federal Confidentiality of Alcohol and Drug Abuse Patient Records regulations: The Federal rules restrict any use of the information to criminally investigate or prosecute any alcohol or drug abuse patient.[facility] the event this information is protected by the Federal Confidentiality of Alcohol and Drug Abuse Patient Records regulations: The Federal rules restrict any use of the information to criminally investigate or prosecute any alcohol or drug abuse patient.[facility] the event this information is protected by the Federal Confidentiality of Alcohol and Drug Abuse Patient Records regulations: The Federal rules restrict any use of the information to criminally investigate or prosecute any alcohol or drug abuse patient.[facility] the event this information is protected by the Federal Confidentiality of Alcohol and Drug Abuse Patient Records regulations: The Federal rules restrict any use of the information to criminally investigate or prosecute any alcohol or drug abuse patient.[facility] the event this information is protected by the Federal Confidentiality of Alcohol and Drug Abuse Patient Records regulations: The Federal rules restrict any use of the information to criminally investigate or prosecute any alcohol or drug abuse patient.[facility] the event this information is protected by the Federal Confidentiality of Alcohol and Drug Abuse Patient Records regulations: The Federal rules restrict any use of the information to criminally investigate or prosecute any alcohol or drug abuse patient.[facility] the event this information is protected by the Federal Confidentiality of Alcohol and Drug Abuse Patient Records regulations: The Federal rules restrict any use of the information to criminally investigate or prosecute any alcohol or drug abuse patient.[facility] the event this information is protected by the Federal Confidentiality of Alcohol and Drug Abuse Patient Records regulations: The Federal rules restrict any use of the information to criminally investigate or prosecute any alcohol or drug abuse patient.[facility]ron[facility] the event this information is protected by the Federal Confidentiality of Alcohol and Drug Abuse Patient Records regulations: The Federal rules restrict any use of the information to criminally investigate or prosecute any alcohol or drug abuse patient.[facility] Reason for Visit (unrecogniz ed section and content) Reason Comments Results Reason Comments Pain (foot) Left x 1 day Reason Comments Animal Bite X 1 month ago, redne ss in area of bite Reason Comments Flu Like Symptoms X 5-6 days Reason Comments OT EVAL Specialty Diagnoses / Procedures Referred By Darren t Referred To Contact Occupational Therapy / OCCUPATIONAL THERAPY Diagnoses DRIVERS EVAL Procedures NEW RS OT COMM REINTEGRATION Dionne Magaña MD [address] [place] [address] Hermelinda Baker OT/L Referral ID Status Reason Start Date Expiration Date V isits Requested Visits Authorized [id number] Authorized 07/11/2023 07/10/2024 99 99 Reason Comments Patient Update This therapist was c ontacted by Jerrell Marco A's doctor's office requesting that the daughter be contacted with update. It was communicated that the daughter has been calling their office blaming them for ordering this assessment while they did say they felt it was necessary. This therapist did in turn call the daughter to indicate BMV extension requested and granted until 12/13/23 in addition to ongoing concerns about Jerrell's fair to poor clinical test results. Daughter verbalized concerns also. Reason Comments OT Discharge Occupational Therapy Specialty Diagnoses / Procedures Referred By Contsaji t Referred To Contact OCCUPATIONAL THERAPY Diagnoses Self pay driving Procedures Self pay driving Dionne Magaña MD [address] [place] [address] [address] Referral ID Status Reason Start Date Expiration Date Visits Requested Visits Authorized [id number] Authorized Financial Clearance Required - Self Pay 10/31/2023 07/10/2024 2 2 Reason Comments Toe Pain (Big) R x1 week, possible infection FOR RECORDS PERTAINING TO PATIENTS WHO ARE [...] BE BASED ON THE PRIMARY CLINICAL RECORDS. [employer] [facility]. provides no warranty or guarantee of the accuracy or completeness of information in this document.
--- NOTE | 2025-06-13 09:51 | STRESSREP ---
Stress Test Report Date: 06/13/2025 Procedure: Pharmacologic stress nuclear imaging study Indications: Preop evaluation Consent: Per the patient Procedure: The patient underwent pharmacologic (Regadenoson 0.4mg ) evaluation with a peak heart rate of 144 beats per minute (103%predicted maximal heart rate) and a peak blood pressure of 116/76 mmHg. The baseline ECG demonstrated sinus rhythm. The peak pharmacologic ECG did not show any diagnostic ischemic changes. There were no cardiac dysrhythmias pretest, during pharmacologic infusion, or recovery. There was no complaint of chest discomfort during pharmacologic infusion or recovery. The patient was injected with 11.8 millicuries of technetium 99m Cardiolite and subsequently rest SPECT Cardiolite nuclear imaging was obtained in the horizontal long, vertical long, and short axis views. The patient underwent pharmacologic (Regadenoson) evaluation. The patient was injected with 36 millicuries of technetium 99m Cardiolite and subsequently stress SPECT Cardiolite nuclear imaging was obtained in the horizontal long, vertical long, and short axis views. A gated Cardiolite study at peak stress was obtained. The examination was stopped secondary to completion of protocol. Rest and stress SPECT Cardiolite nuclear imaging status post realignment, normalization, and attenuation correction demonstrate mildly reduced perfusion of the anterior wall and apex post pharmacological stress. There is end systolic thickening and brightening. The gated Cardiolite study demonstrates myocardial thickening and inward wall motion. The reported LVEF is 74%. Impression: 1. Pharmacologic (Regadenoson) evaluation 2. Peak pharmacologic ECG with no diagnostic ischemic changes. 3. There were no cardiac dysrhythmias pretest, during pharmacologic infusion, or recovery. 5. Mild reversible ischemia of the anterior wall and septum. 6. The gated Cardiolite study reports an LVEF of 74%. This note was generated with [employer] software. It may contain incorrect words, spelling, and punctuation that were not noted in checking the note before signing.
== END | disposition home or self-care (01) ==
PROVIDERS: PCP Internal Medicine; Referring Provider Internal Medicine Cardiovascular Disease; Visit Provider Internal Medicine Cardiovascular Disease
DX: Z01.810 Encounter for preprocedural cardiovascular examination (principal); I77.9 Disorder of arteries and arterioles, unspecified; I10 Essential (primary) hypertension; E78.5 Hyperlipidemia, unspecified; I25.89 Other forms of chronic ischemic heart disease
CPT/HCPCS: 78452; 93017; A9500; J2785

== ENCOUNTER 2025-07-10 15:50 | Observation (INO) | payer MEDICARE, SELFPAY ==
--- NOTE | 2025-07-05 09:15 | RAD_ITS ---
PROCEDURE: CHEST PA AND LATERAL 07/05/2025 REASON FOR EXAM: HEART CATH SCHEDULED 07/10/2025 TECHNIQUE: Procedure Code: RADCXR Modality: DX Procedure: CHEST PA AND LATERAL COMPARISON: 05/15/2024 FINDINGS: No focal consolidation. No pleural effusion or pneumothorax. Cardiac silhouette is within normal limits. No acute fractures. Neurostimulator device. Bilateral shoulder prosthesis. Left chest loop recorder. RAD/Chest PA and Lateral IMPRESSION: No focal consolidations. Reading Location: [id number]
[2025-07-05 09:56] LABS: Hematocrit 31.7 % (37-47); Hemoglobin 10.6 g/dL (12.0-15.0); Immature Granulocytes Count 0.030 X10^3/uL (0.0-0.0); Mean Corp Hgb Conc 33.4 g/dL (32-36); Mean Corpuscular Volume 99.7 fL (81-99); Mean Platelet Vol. 11.3 fl (6.2-12.0); NRBC Flagged by Analyzer 0 % (0-5); Platelet Count 225 K/mm3 (150-450); RBC Distribution Width CV 12.1 % (11.6-14.6); RBC Distribution Width SD 44.2 fl (35.1-43.9); Red Blood Count 3.18 M/mm3 (4.2-5.4); White Blood Count 7.5 K/mm3 (4.4-11.0)
[2025-07-05 10:04] LABS: Prothrombin Time (Protime)PT. 14.1 SECONDS (11.7-14.9)
[2025-07-05 10:05] LABS: Partial Thromboplast Time 29.0 Seconds (24.1-36.2)
[2025-07-05 10:31] LABS: Anion Gap 10 (7-18); BUN 19 mg/dL (4-19); BUN/Creat Ratio 20.6 RATIO (10-20); Calcium,Total 9.3 mg/dL (7.6-11.0); Carbon Dioxide 25.5 mmol/L (20.0-29.0); Chloride 96 mmol/L (96-106); Glucose 101 mg/dL (70-99); Potassium 4.6 mmol/L (3.5-5.1)
[2025-07-09 09:08] VITALS: BMI 24.7
--- NOTE | 2025-07-09 09:34 | PCM.HP.BLA ---
History and Physical Date of Admission: 07/10/25 This lady has past medical history significant for hypertension and dyslipidemia. Recently diagnosed with bilateral carotid artery disease, worse on the left side. She is in the process of getting scheduled for left carotid endarterectomy. We are asked to evaluate her cardiac risk for the proposed procedure. To help assess further, she underwent a stress test on 06/13/2025 that showed mild reversible ischemia of the anterior wall and septum. To help assess this further, she will proceed with a heart catheterization. Patient has history of arthritis. She walks on her own but very slowly. Denies any chest pains or shortness of breath. No orthopnea. No PND. No ankle edema. Denies any palpitations. 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 [employer] Required: No Accompanied by: Self Is patient in pain?: No Allergies clindamycin Allergy (Mild, Verified 06/04/25 11:09) rash codeine phosphate (From Tylenol-Codeine #3) Adverse Reaction (Severe, Verified 06/04/25 11:09) Nausea Medications: See EMR Medication Reconciliation completed?: Yes Ejection fraction %: 60 Have you fallen in the past year?: No PFSH Medical History Anxiety Dietary restriction Non-smoker Post-menopausal History of steroid therapy Arthritis Excessive bleeding Back pain Difficulty swallowing History of diverticulitis Gastric reflux History of echocardiogram Cardiology follow-up encounter Vasovagal syncope Essential hypertension Bradycardia Hypothyroidism Hyperlipidemia Osteoarthritis Debility Wears glasses Wears dentures Thyroid disease Easy bruising Shortness of breath on exertion Leg cramps History of edema History of rheumatic fever Localized edema Bleeding tendency Injury of head and neck Chronic pain Gastroesophageal reflux disease Leukocytosis Lumbar spinal stenosis Right lumbar radiculopathy Allergic rhinitis Vitamin B12 deficiency Restless leg syndrome Bilateral sacral insufficiency fracture with delayed healing History of colon polyps Asthma Chronic low back pain Surgical History History of total shoulder replacement Status post reverse total arthroplasty of left shoulder Hx of lumbar discectomy Hx of decompressive lumbar laminectomy History of cardiac catheterization Hx of total hip arthroplasty History of colonoscopy (2012) history of pain stimulator History of bilateral carpal tunnel release History of loop recorder (2012) History of appendectomy History of hysterectomy Hx of tonsillectomy Family History Mother Heart valve disorder Hypertension Heart disease Father Pneumococcal pneumonia CVA (cerebral vascular accident) Heart disease Myocardial infarction CABG Daughter Diabetes Grandmother Diabetes Social History household members: none housing: apartment number of children: 2 current occupational status: retired current occupation: worked at [employer] current occupational exposures/hazards: No pets and animals: No leisure activities: exercise and volunteer work Smoking Status: Never smoker Electronic Cigarette Use: not used alcohol intake: never substance use type: does not use what type of physical activity do you participate in: walking frequency: 3-4 times per week do you feel safe at home: Yes additional social history: daughter lives nearby ROS Const Const: Negative for fatigue or weakness Eyes Eyes: Negative for change in vision ENT ENT: Negative for dizziness or balance problems Cardio Chest Pain: No Palpitations: No Edema: None Resp Respiratory: Negative for SOB with activity, SOB at rest or SOB orthopnea\SOB lying down GI GI: Positive for loose stools; Negative nausea or heartburn Musc Musc: Negative for balance problems Neuro Neuro: Negative for dizziness, lightheadedness, near syncope, syncope or weakness Endo Endo: Negative for fatigue Cardiology Exam Const Appearance: comfortable and no acute distress Nutritional Appearance: well nourished Neck Neck: no JVD Carotids: bruit carotid endarterectomy: Right Chest Auscultation: Bilateral: Clear to Auscultation Cardio Rate: regular rate Rhythm: regular rhythm Heart sounds: S1 normal and S2 normal Neuro General: patient alert, patient awake and patient oriented x3 Extremities Lower Extremity Edema: None: Bilateral Supplemental Info Supplemental Information Stress test from 06/13/2025: Impression: 1. Pharmacologic (Regadenoson) evaluation 2. Peak pharmacologic ECG with no diagnostic ischemic changes. 3. There were no cardiac dysrhythmias pretest, during pharmacologic infusion, or recovery. 5. Mild reversible ischemia of the anterior wall and septum. 6. The gated Cardiolite study reports an LVEF of 74%. Assessment and Plan Assessment and Plan (1) Preoperative cardiovascular examination: Plan: It is difficult to ascertain patient's functional status as he will mobility is limited because of her arthritis. Echocardiogram done recently showed normal LV systolic function. On account of abnormal stress test, she will proceed with heart catheterization. Depending on results, further recommendation will be made. (2) Carotid artery disease: Status: Chronic Plan: Aspirin. Risk factor modification. Final cardiac clearance decision will be made after heart catheterization. (3) Hypertension: Status: Chronic Plan: Olmesartan. (4) Dyslipidemia: Status: Chronic Plan: On rosuvastatin. PCP following.
--- OUTSIDE RECORDS SUMMARY | 2025-07-10 07:01 | XMS RPT_ITS | CCD ---
Author Organization [facility] CliniSyor Care Team Providers Care Location Man Name Role Phone [employer] Unavailable Unavailable [...] 1(330) DIONNE MAGAÑA MD Primary Care Physician VICTOR M Thomas Attending Provider 1(330) VICTOR M Goins Attending Provider [phone] LEANN Lal Attending Provider 1(330) Dr. Dionne [...] 10 Ghazal SAUCEDA, Dr. Montano Attending Physician [place], Dionne Primary Care Unavailable Yovanny PA, Dayday Attending Unavailable Archana, Dionne Referring Unavailable Archana, Dionne Primary Care Unavailable [place], Dionne Referring Unavailable Yris Kirk Attending Unavailable Archana, Dionne Primary Care Unavailable Cole, Shweta Referring Unavailable Cole, Shweta Attending Unavailable Archana, Dionne Referring Unavailable Dusty Harman Attending Unavailable [place], Dionen Primary Care Unavailable Archana, Dionne Referring Unavailable Archana, Dionne Primary Care Unavailable Yris Kirk Attending Unavailable [place], Dionne Primary Care Unavailable Chang Mercado Attending Unavailable Archana, Dionne Primary Care Unavailable Cole, Shweta Referring Unavailable Cole, Shweta Attending Unavailable Ghazal, Dusty Attending Unavailable Ghazal, Dusty Admitting Unavailable [place], Dionne Primary Care Unavailable Archana, Dionne Referring Unavailable Ghazal, Dusty Attending Unavailable [place], Dionne Primary Care Unavailable [place], Dionne Primary Care Unavailable Sarmad Hidalgo Attending Unavailable [place], Dionne Attending Unavailable [place], Dionne Primary Care Unavailable Archana, Dionne Referring Unavailable Archana, Dionne Primary Care Unavailable Dayday Thomas Attending Unavailable Dayday Thomas Referring Unavailable [place], Dionne Primary Care Unavailable Dayday Thomas Attending Unavailable Dayday Thomas Referring Unavailable Archana, Dionne Primary Care Unavailable Archana, Dionne Referring Unavailable Dayday Thomas Attending Unavailable [place], Dionne Attending Unavailable [place], Dionne Primary Care Unavailable [place], Dionne Referring Unavailable Archana, Dionne Attending Unavailable Archana, Dionne Primary Care Unavailable Archana, Dionne Referring Unavailable Charlene JUNIOR, Andrew Avila Attending Unavailable [place], Dionne Primary Care Unavailable Archana, Dionne Referring Unavailable LinonasovYris Attending Unavailable Archana, Dionne Primary Care Unavailable [place], Dionne Referring Unavailable Archana, Dionne Referring Unavailable Archana, Dionne Attending Unavailable [place], Dionne Primary Care Unavailable [place], Dionne Primary Care Unavailable Archana, Dionne Referring Unavailable Dayday Thomas Attending Unavailable Kirksey, Dusty Attending Unavailable Archana, Dionne Primary Care Unavailable Cole, Shweta Referring Unavailable [place], Dionne Referring Unavailable [place], Dionne Primary Care Unavailable Dayday Thomas Attending Unavailable Archana, Dionne Primary Care Unavailable Dayday Thomas Attending Unavailable [place], Dionne Referring Unavailable [place], Dionne Referring Unavailable [place], Dionne Primary Care Unavailable Dayday Tohmas Attending Unavailable Archana, Dionne Attending Unavailable Archana, Dionne Referring Unavailable Dionne Magaña Primary Care Unavailable Allergies Allergy Classification Reported Allergen(s) Allergy Type Date of Onset Reaction(s) Facility Acetaminophen / Codeine (1 source) Acetaminophen / Codeine Drug Allergy 6 Anaphylaxis [facility] Work Phone: (14 sources) acetaminophen / codeine; Translations: [ACETAMINOPHEN-CO DEINE] Drug Allergy 6 Anaphylaxis [facility] Repository (15 sources) Seasonal allergy; Translations: [SEASONAL ALLERGIES] Propensity to adverse reactions (disorder) 6 Other: See Comments [facility] Repository (20 sources) Clindamycin Drug Allergy 2 rash [facility] (20 sources) Codeine; Translations: [codeine phosphate] Drug Allergy 2 Nausea [facility] (1 source) Clindamycin Drug Allergy 5 [facility] Repository Medications Current Medications Medication Drug Class(es) [...] tab(s), 0 Refill(s), 07/21/22 8:33:00 EST, Pharmacy: [facility], 162.6, cm, 07/06/22 15:21:00 EST, Height [...] prophylaxis., # 60 tab(s), 0 Refill(s), Pharmacy: [facility], 162.6, cm, 07/06/22 15:21:00 EST, Height [...] cap(s), 0 Refill(s), 07/14/22 13:05:00 EST, Pharmacy: [facility], 162.6, cm, 07/06/22 15:21:00 EST, Height, [...] 10:07am docusate sodium 50 mg / sennosides, fci 8.6 mg oral tablet (20 sources) Start: 07-07-2022 End: 07-10-2022 take 1 tablet by mouth twice daily Senokot S 50 mg-8.6 mg oral tablet Dose = 2 tab(s), Oral, BID, Take until first bowel movement, then as needed, X 3 day(s), # 12 tab(s), 0 Refill(s), Pharmacy: [facility], 162.6, cm, 07/06/22 15:21:00 EST, Height [...] 08-14-2021 Fluticasone Propionate (Flon ase) 50 mcg/actuation [place],Suspension Discontinued 1 NMA INTRANASAL DAILY August 12, 2021 1:00am August 14, 2021 9:10am Check with primary doctor Start: 08-12-2021 End: 08-14-2021 Fluticasone Propionate (Flon ase) 50 mcg/actuation [place],Suspension Discontinued 1 SPRAY INTRANASAL DAILY August 12, [...] l-Thyroxine Start: 01-08-2025 take 1 tablet by jacqui once daily Start: 01-10-2023 End: 01-08-2025 take [...] for 10 days. Location: left warm nystatin 270754 unt/ml oral suspension (20 sources) Polyene Antifungal Start: 2 take 064600 [IU] by mouth four times daily Nystatin Active 050686 UNIT PO 4 TIMES DAILY 140 7 December 01, 2021 9:32am Start: 08-07-2021 End: 08-14-2021 take 1 tablet by mouth four times daily Nystatin 500,000 unit Tablet Discontinued 645567 U PO 4 TIMES DAILY August 07, [...] 2021 2:31pm Start: 07-10-2019 End: 08-10-2019 take 909784 [IU] by mouth four times daily Nystatin 500,000 UNIT/5 ML suspension Discontinued 422297 U PO 4 TIMES DAILY 56 0 [...] tab(s), 0 Refill(s), 07/14/22 8:35:00 EST, Pharmacy: [facility], Status post reverse total arthroplasty of [...] Start: 08-24-2024 take 2 tablets by mo [facility] twice daily as needed for constipation Sennosides [...] 2024 1:00am August 24, 2024 6:11pm sennosides, fci 8.6 mg oral tablet (20 sources) Start: [...] sources) Start: 05-15-2024 take 1 capsule by [facility] once daily Completed/Discontinued Medications Medication Drug Class(es) [...] Comment on above: Take 1 tablet by [facility] twice daily for 5 days. bacitracin 0.5 [...] Start: 06-22-2022 take 1 capsule by mo [facility] three times daily as needed benzonatate 100 [...] directed Start: 08-01-2023 End: 12-13-2023 Honey-Hydrocolloid Dressing ([facility]) 1.8 X 1.8 bandage Discontinued 0 .Route August 01, 2023 1:00am December 13, 2023 10:51am As directed Start: 08-01-2023 Honey-Hydrocol loid Dressing ([facility]) 1.8 X 1.8 bandage Active 0 .Route August 01, 2023 1:00am As directed Start: 08-01-2023 Honey-Hydrocol loid Dressing ([facility]) 1.8 X 1.8 bandage Active 0 [...] 10 mg by mouth daily at bedtime. Ms-Km-Tduxt-Lutein-H erbal 293 (Alive Women's 50 Plus Gummy) 120 mcg-150 mcg -37.5 mg Tablet,Chewable (20 sources) Start: 1 End: 1 take 1 tablet by mouth once daily Qo-Pk-Vioqs-Lutein-He rbal 293 (Alive Women's 50 Plus Gummy) 120 mcg-150 mcg -37.5 mg Tablet,Chewable Discontinued 1 TABLET PO DAILY December 27, 2020 5:54pm February 13, 2021 2:30pm Start: 12-27-2020 End: 02-13-2021 Dk-Pv-Mjebc-Lutein-Herbal 29 3 (Alive Women's 50 Plus Gummy) 120 mcg-150 mcg -37.5 mg Tablet,Chewable Discontinued 1 {tbl} PO DAILY December 27, 2020 12:00am February 13, 2021 2:30pm SUPPLEMENT Start: 12-27-2020 End: 02-13-2021 Og-Nj-Ydafl-Lutein-Herbal 29 3 (Alive Women's 50 Plus Gummy) 120 mcg-150 mcg -37.5 mg Tablet,Chewable Discontinued 1 {tbl} PO DAILY December 27, 2020 12:00am February 13, 2021 2:30pm Start: 12-27-2020 End: 02-13-2021 take 1 tablet by mouth once daily Jq-Xw-Vxeql-Lutein-Herbal 293 (Alive Women's 50 Plus Gummy) 120 mcg-150 mcg -37.5 mg Tablet,Chewable Discontinued 1 TABLET PO DAILY December 27, 2020 12:00am February 13, 2021 2:30pm Start: 12-27-2020 End: 02-13-2021 take 1 tablet by mouth once daily Ek-Oj-Qxfbz-Lutein-Herbal 293 (Alive Women's 50 Plus Gummy) 120 mcg-150 mcg -37.5 mg Tablet,Chewable Discontinued 1 TABLET PO DAILY December 26, 2020 11:00pm February 13, 2021 1:30pm Iv-To-Vehom-Lutein-Herbal 29 3 (Alive Women's 50 Plus) 120 mcg-150 mcg -37.5 mg Tablet,Chewable (1 source) Start: 12-27-2020 End: 02-13-2021 take 1 tablet by mouth once daily Ys-Mv-Tsbhd-Lutein-Herbal 293 (Alive Women's 50 Plus) 120 mcg-150 [...] 11:35pm Celio powder packets polyethylene glycol 3350 77482 mg powder for oral solution (20 sources) [...] Start: 11-29-2021 Triamcinolone Acetonide (Nasacort) 55 mcg Aerosol,[place] Active 1 SPRAY INTRANASAL AT BEDTIME November [...] Vis iton 05-17-2025 Internal Medicine Office Visit [facility] Internal Medicine [address] [place] [address] [place] [address] OFFICE VISIT Date of Service: 05/17/25 MR#: [id number] Acct: [id number] Name: MARCO AJERRELL D Rep #: [id number] : 1945 Provider: VICTOR M Ni Age/Sex: 79/F Location: [facility] Status: Signed Intake Vital Signs 01/08/25 07:59 [...] Intake Visit Reasons: Medication 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 Normal [facility] MR/BMS.Deshawn 04-24-2025 [facility] [address] [place] [address] OFFICE VISIT Date of Service: 04/24/25 MR#: [id number] Acct: [id number] Name: JERRELL STRICKLAND Rep #: [id number] : 1945 Provider: Dr. Dusty Harman MD Age/Sex: 79/F Location: [facility] Status: Signed Intake Vital Signs 01/08/25 07:59 [...] denosumab 60 mg/mL subcutaneous 60 mg subcut [id number] #1 mL 04/24/25 Rx syringe (Prolia) mirtazapine [...] you fallen in the past year?: No [facility] Medical History Post-menopausal History of steroid therapy [...] Chronic low (more content not included)... Normal [facility] CREATININE FINGERSTICKon CREATININE WB < 1.0 Normal 0.55-1.02 [facility] Comment on above: Performed By: #### L 9100.0200 #### [facility] Laboratory [address], [address] EGFR WB > 60.0000 Normal >60 [facility] Comment on above: Performed By: #### L 9100.0200 #### [facility] Laboratory [address] [place], [place], [address] CTA Head AND Neck W/ Contras ton 02-04-2025 CTA Head AND Neck W/ Contrast [facility] Imaging Services [address] [place], [place] [address] CTA Head AND Neck W/ Contrast MR#: [id number] Acct: [id number] Name: JERRELL STRICKLAND Rep #: [id number] : 1945 F 79 From: Gonzalo carrasco MD PCP: Dr. Dionne Magaña MD Status: REG CLI Study: CTA Head AND Neck W/ Contrast Date of Exam: Exam# [id number] Ordering Dr: Shweta Cole PROCEDURE: CTA HEAD [...] RIGHT Vertebral: Unremarkable. LEFT Vertebral: Unremarkable. Anatomy: [place] [employer] [place] anatomy is normal. Aneurysm or [...] a marked degree of stenosis. Reading Location: [facility] CC: VICTOR M Jimenez; Dr. Dionne Magaña MD Supervising Producer: Signed Normal [facility] EGFROrdered By: Shweta Cole on 02-04-2025 GFR/1.73 sq M.predicted among non-blacks MDRD (S/P/Bld) [Vol rate/Area] mL/min/{1.73_m2} >60 [facility] Echocardiogram study reportO rdered By: Chang Mercado on 01-28-2025 Study report [facility] [address] [place] [address] Echo Complete 01/25/25 1446 MR#: [id number] Acct: [id number] Name: JERRELL STRICKLAND Rep #:[id number] : 1945 79 From: Chang Fair[place] Attending [...] Date Dictated: 01/25/25 1446 Date Transcribed: 01/28/25711 Supervising Producer: Signed [facility] Work Phone: Echo Completeon 01-25-2025 Echo Complete [facility] [place] [address] Echo Complete 01/25/25 1446 MR#: [id number] Acct: [id number] Name: JERRELL STRICKLAND Rep #: [id number] : 1945 79 From: Chang Mercado MD Attending Dr: VICTOR M Ni Status: REG CLI Ordering Dr: Dayday Hairston Date: 01/25/25 Location: [facility] Sex: F C Admitted: Reason For Study [...] Date Dictated: 01/25/25 1446 Date Transcribed: 01/28/25711 Supervising Producer: Signed Normal [facility] Bone density reportOrdered B y: Gonzalo Jordan on 01-17-2025 Study report Skeletal system DXA [facility] Imaging Services [address] [place], [place] [address] Dexa Bone Density/Append Skel MR#: [id number] Acct: [id number] Name: JERRELL STRICKLAND Rep #: [id number] : 1945 F 79 From: Denzel Jordan MD PCP: Dr. Dionne Magaña MD Status: REG CLI Study:Dexa Bone Density/Append Skel Date of E xam: 01/17/25 Exam# [id number] Ordering Dr: Dionne Magaña MD PROCEDURE: DEXA [...] Recommend follow-up as clinically warranted. Reading Location: [facility] CC: Dr. Dionne Magaña MD ~ Supervising Producer: Signed [facility] Dexa Bone Density/Append Ske jazmin 01-17-2025 Dexa Bone Density/Append Skel [facility] Imaging Services [address] [place], [place] [address] Dexa Bone Density/Append Skel MR#: [id number] Acct: [id number] Name: JERRELL STRICKLAND Rep #: [id number] : 1945 F 79 From: Gonzalo carrasco MD PCP: Dr. Dionne Magaña MD Status: [facility] Study: Dexa Bone Density/Append Skel Date of Exam: Exam# [id number] Ordering Dr: Dionne Magaña MD PROCEDURE: DEXA [...] Recommend follow-up as clinically warranted. Reading Location: [facility] CC: Dr. Dionne Magaña MD Supervising Producer: Signed Normal [facility] Laboratory - Hematology and Cell countsOrdered By: Dionne Magaña on 01-08-2025 HbA1c (Bld) [Mass fraction] 6.1 % 4.2-6.3 [facility] Internal Medicine Office Vis iton 01-07-2025 Internal Medicine Office Visit [facility] [address] [place] [address] [place] [address] OFFICE VISIT Date of Service: 01/08/25 MR#: [id number] Acct: [id number] Name: JERRELL STRICKLAND Rep #: [id number] : 1945 Provider: Dr. 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 Normal [facility] Absolute lymphocyte countOrd ered By: Dayday Hairston on 12-21-2024 Lymphocytes Auto (Unsp spec) [#/Vol] 2.37 10*3/uL 0.83-4.51 [facility] Absolute neutrophil countOrd ered By: Dayday Hairston on 12-21-2024 Neutrophils (Bld) [#/Vol] 6.7 10*3/uL 2.0-7.7 [facility] Anion gap in Serum or Plasma Ordered By: Dayday Hairston on 12-21-2024 Anion gap [Moles/Vol] 12 mmol/L 5-15 [facility] Automated lymphocyte count a s percentage of total leukocytesOrdered By: Dayday Hairston on 12-21-2024 Lymphocytes/100 WBC Auto (Unsp spec) 21.8 % 19-41 [facility] BUN/creatinine ratioOrdered By: Dayday Hairston on 12-21-2024 Urea nitrogen/Creatinine [Mass ratio] 21.9 mg/mg High 10-20 [facility] Basophil percentageOrdered B y: Dayday Hairston on 12-21-2024 Basophils/100 WBC (Bld) 0.8 % 0-1 [facility] Bilirubin, totalOrdered By: Dayday Hairston on 12-21-2024 Bilirubin [Mass/Vol] 0.26 mg/dL 0.00-1.30 [facility] CBC W/Diff, Automatedon 12-09-2024 Absolute Lymph 2.37 X10 3/uL Normal 0.83-4.51 [facility] Comment on above: Performed By: #### L 506.0400, L501.9310, L100.0100, L500.4100, L500.4050, L501.9520 #### [facility] Laboratory [address] [place], [address] Absolute Neut 6.7 X10 3/uL Normal 2.0-7.7 [facility] Comment on above: Performed By: #### L 506.0400, L501.9310, L100.0100, L500.4100, L500.4050, L501.9520 #### [facility] Laboratory [address] [place], [address] Basophils/100 WBC (Bld) 0.8 % Normal 0-1 [facility] Comment on above: Performed By: #### L 506.0400, L501.9310, L100.0100, L500.4100, L500.4050, L501.9520 #### [facility] Laboratory [address] [place], [address] Eosinophils/100 WBC (Bld) 5.1 % High 0-5 [facility] Comment on above: Performed By: #### L 506.0400, L501.9310, L100.0100, L500.4100, L500.4050, L501.9520 #### [facility] Laboratory [address] [place], [address] Erythrocyte distribution width (RBC) [Ratio] 13.2 % Normal 11.6-14.6 [facility] Comment on above: Performed By: #### L 506.0400, L501.9310, L100.0100, L500.4100, L500.4050, L501.9520 #### [facility] Laboratory [address] [place], [address] Hematocrit (Bld) [Volume fraction] 33.9 % Low 37-47 [facility] Comment on above: Performed By: #### L 506.0400, L501.9310, L100.0100, L500.4100, L500.4050, L501.9520 #### [facility] Laboratory [address] [place], [address] Hemoglobin (Bld) [Mass/Vol] 11.0 g/dL Low 12.0-15.0 [facility] Comment on above: Performed By: #### L 506.0400, L501.9310, L100.0100, L500.4100, L500.4050, L501.9520 #### [facility] Laboratory [address] [place], [address] IG% 0.400 Normal 0.0-0.9 [facility] Comment on above: Result Comment: IG% - Immature Granulocytes (promyelocytes, myelocytes and metamyelocytes) > 1% indicates that a LEFT SHIFT is Present. Performed By: #### L 506.0400, L501.9310, L100.0100, L500.4100, L500.4050, L501.9520 #### [facility] Laboratory [address] [place], [address] Lymphocytes/100 WBC (Bld) 21.8 % Normal 19-41 [facility] Comment on above: Performed By: #### L 506.0400, L501.9310, L100.0100, L500.4100, L500.4050, L501.9520 #### [facility] Laboratory [address] [place], [address] MCH (RBC) [Entitic mass] 33.7 pg High 27.0-32.0 [facility] Comment on above: Performed By: #### L 506.0400, L501.9310, L100.0100, L500.4100, L500.4050, L501.9520 #### [facility] Laboratory [address] [place], [address] MCHC (RBC) [Mass/Vol] 32.4 g/dL Normal 32-36 [facility] Comment on above: Performed By: #### L 506.0400, L501.9310, L100.0100, L500.4100, L500.4050, L501.9520 #### [facility] Laboratory [address] [place], [address] MCV (RBC) [Entitic vol] 104.0 fL High 81-99 [facility] Comment on above: Performed By: #### L 506.0400, L501.9310, L100.0100, L500.4100, L500.4050, L501.9520 #### [facility] Laboratory [address] [place], [address] Monocytes/100 WBC (Bld) 10.0 % Normal 0-10 [facility] Comment on above: Performed By: #### L 506.0400, L501.9310, L100.0100, L500.4100, L500.4050, L501.9520 #### [facility] Laboratory [address] [place], [address] Neutrophils/100 WBC (Bld) 61.9 % Normal 47-70 [facility] Comment on above: Performed By: #### L 506.0400, L501.9310, L100.0100, L500.4100, L500.4050, L501.9520 #### [facility] Laboratory [address] [place], [address] Nucleated RBC (Bld) [#/Vol] 0 10*3/uL Normal 0-5 [facility] Comment on above: Performed By: #### L 506.0400, L501.9310, L100.0100, L500.4100, L500.4050, L501.9520 #### [facility] Laboratory [address] [place], [address] Platelet mean volume (Bld) [Entitic vol] 11.7 fL Normal 6.2-12.0 [facility] Comment on above: Performed By: #### L 506.0400, L501.9310, L100.0100, L500.4100, L500.4050, L501.9520 #### [facility] Laboratory [address] [place], [address] Platelets (Bld) [#/Vol] 271 10*3/uL Normal 150-450 [facility] Comment on above: Performed By: #### L 506.0400, L501.9310, L100.0100, L500.4100, L500.4050, L501.9520 #### [facility] Laboratory [address] [place], [address] RBC (Bld) [#/Vol] 3.26 10*6/uL Low 4.2-5.4 [facility] Comment on above: Performed By: #### L 506.0400, L501.9310, L100.0100, L500.4100, L500.4050, L501.9520 #### [facility] Laboratory [address] [place], [address] RDW SD 51.0 fl High 35.1-43.9 [facility] Comment on above: Performed By: #### L 506.0400, L501.9310, L100.0100, L500.4100, L500.4050, L501.9520 #### [facility] Laboratory [address] [place], [place], [address] WBC (Bld) [#/Vol] 10.9 10*3/uL Normal 4.4-11.0 [facility] Comment on above: Performed By: #### L 506.0400, L501.9310, L100.0100, L500.4100, L500.4050, L501.9520 #### [facility] Laboratory [address] [place], [place], [address] Calculated very low density lipoprotein (VLDL) cholesterol measurementOrdered By: Dayday Hairston on 12-21-2024 Calculated very low density lipoprotein (VLDL) cholesterol measurement 14 mg/dL 5-40 [facility] Carbon dioxide, total [Moles /volume] in Central venous bloodOrdered By: Dayday Hairston on 12-21-2024 CO2 [Moles/Vol] 22.8 mmol/L 21.0-32.0 [facility] Chloride assayOrdered By: Stan Hairston on 12-21-2024 Chloride [Moles/Vol] 105 mmol/L 98-108 [facility] Comprehensive Metabolic Prof ilon 12-21-2024 Albumin [Mass/Vol] 4.0 g/dL Normal 3.4-4.8 [facility] Comment on above: Performed By: #### L 506.0400, L501.9310, L100.0100, L500.4100, L500.4050, L501.9520 ####[facility] [address], [address] Albumin/Globulin [Mass ratio] 1.3 {ratio} Normal 0.9-2.4 [facility] Comment on above: Performed By: #### L 506.0400, L501.9310, L100.0100, L500.4100, L500.4050, L501.9520 ####[facility] [address] [place], [address] ALK PHOS 108 U/L High 35-104 [facility] Comment on above: Performed By: #### L 506.0400, L501.9310, L100.0100, L500.4100, L500.4050, L501.9520 ####[facility] [address] [place], [address] ALT [Catalytic activity/Vol] 20 U/L Normal <=34 [facility] Comment on above: Performed By: #### L 506.0400, L501.9310, L100.0100, L500.4100, L500.4050, L501.9520 ####[facility] [address] [place], [address] AST [Catalytic activity/Vol] 20 U/L Normal <=31 [facility] Comment on above: Performed By: #### L 506.0400, L501.9310, L100.0100, L500.4100, L500.4050, L501.9520 ####[facility] [address] [place], [address] Bilirubin [Mass/Vol] 0.26 mg/dL Normal 0.00-1.30 [facility] Comment on above: Performed By: #### L 506.0400, L501.9310, L100.0100, L500.4100, L500.4050, L501.9520 ####[facility] [address] [place], [address] BUN/CRE 21.9 RATIO High 10-20 [facility] Comment on above: Performed By: #### L 506.0400, L501.9310, L100.0100, L500.4100, L500.4050, L501.9520 ####[facility] [address] [place], [address] Calcium [Mass/Vol] 9.4 mg/dL Normal 7.6-11.0 [facility] Comment on above: Performed By: #### L 506.0400, L501.9310, L100.0100, L500.4100, L500.4050, L501.9520 ####[facility] [address] [place], [address] Chloride [Moles/Vol] 105 mmol/L Normal 98-108 [facility] Comment on above: Performed By: #### L 506.0400, L501.9310, L100.0100, L500.4100, L500.4050, L501.9520 ####[facility] [address] [place], [address] CO2 [Moles/Vol] 22.8 mmol/L Normal 21.0-32.0 [facility] Comment on above: Performed By: #### L 506.0400, L501.9310, L100.0100, L500.4100, L500.4050, L501.9520 ####[facility] [address] [place], [address] Creatinine [Mass/Vol] 1.01 mg/dL Normal 0.70-1.20 [facility] Comment on above: Performed By: #### L 506.0400, L501.9310, L100.0100, L500.4100, L500.4050, L501.9520 ####[facility] [address] [place], [address] GAP 12 Normal 5-15 [facility] Comment on above: Performed By: #### L 506.0400, L501.9310, L100.0100, L500.4100, L500.4050, L501.9520 ####[facility] [address] [place], [address] GFR/1.73 sq M.predicted among non-blacks MDRD (S/P/Bld) [Vol rate/Area] 56 mL/min/{1.73_m2} Low >60 [facility] Comment on above: Result Comment: mL/m in/1.73m2 CKD-EPI Creatinine Equation (2020) Performed By: #### L 506.0400, L501.9310, L100.0100, L500.4100, L500.4050, L501.9520 ####[facility] [address] [place], [address] Globulin (S) [Mass/Vol] 3.1 g/dL Normal 2.2-4.2 [facility] Comment on above: Performed By: #### L 506.0400, L501.9310, L100.0100, L500.4100, L500.4050, L501.9520 ####[facility] [address] [place], [address] Glucose [Mass/Vol] 92 mg/dL Normal 70-99 [facility] Comment on above: Performed By: #### L 506.0400, L501.9310, L100.0100, L500.4100, L500.4050, L501.9520 ####[facility] [address] [place], [address] Potassium [Moles/Vol] 4.5 mmol/L Normal 3.3-5.1 [facility] Comment on above: Performed By: #### L 506.0400, L501.9310, L100.0100, L500.4100, L500.4050, L501.9520 ####[facility] [address] [place], [address] Sodium [Moles/Vol] 139 mmol/L Normal 133-145 [facility] Comment on above: Performed By: #### L 506.0400, L501.9310, L100.0100, L500.4100, L500.4050, L501.9520 ####[facility] [address] [place], [place], [id number] T PROT 7.1 g/dL Normal 5.9-8.4 [facility] Comment on above: Performed By: #### L 506.0400, L501.9310, L100.0100, L500.4100, L500.4050, L501.9520 ####[facility] [address] [place], [address] Urea nitrogen [Mass/Vol] 22 mg/dL High 4-19 [facility] Comment on above: Performed By: #### L 506.0400, L501.9310, L100.0100, L500.4100, L500.4050, L501.9520 ####[facility] [address] [place], [place], [id number] Eosinophil percentageOrdered By: Dayday Hairston on 12-21-2024 Eosinophils/100 WBC (Bld) 5.1 % High 0-5 [facility] Erythrocyte distribution wid th ratioOrdered By: Dayday Hairston on 12-21-2024 Erythrocyte distribution width (RBC) [Ratio] 13.2 % 11.6-14.6 [facility] Erythrocyte distribution wid th standard deviationOrdered By: Dayday Hairston on 12-21-2024 Erythrocyte distribution width (RBC) [Ratio] 51.0 fl High 35.1-43.9 [facility] Glomerular filtration rate ( GFR) estimation/1.73 sq m using serum, plasma, or whole bOrdered By: Dayday Hairston on 12-21-2024 GFR/1.73 sq M.predicted among non-blacks MDRD (S/P/Bld) [Vol rate/Area] 56 mL/min/{1.73_m2} Low >60 [facility] Comment on above: mL/min/1.73m2 CKD-EP I Creatinine Equation (2020) Hematocrit Auto (Bld) [Volum e fraction]Ordered By: Dayday Hairston on 12-21-2024 Hematocrit (Bld) [Volume fraction] 33.9 % Low 37-47 [facility] Hemoglobin measurementOrdere d By: Dayday Hairston on 12-21-2024 Hemoglobin (Bld) [Mass/Vol] 11.0 g/dL Low 12.0-15.0 [facility] Immature granulocytes/100 WB C Auto (Bld)Ordered By: Dayday Hairston on 12-21-2024 Immature granulocytes/100 WBC (Bld) 0.400 % 0.0-0.9 [facility] Comment on above: IG% - Immature Granu locytes (promyelocytes, myelocytes and metamyelocytes) > 1% indicates that a LEFT SHIFT is Present. Internal Medicine Office Vis iton 12-21-2024 Internal Medicine Office Visit [facility] [place] [address] [place] [address] OFFICE VISIT Date of Service: 12/21/24 MR#: [id number] Acct: [id number] Name: JERRELL STRICKLAND Magdi Rep #: [id number] : 1945 Provider: VICTOR M Ni Age/Sex: 79/F [facility] Status: Signed Intake Vital Signs 09/13/24 14:23 [...] both episodes happened in the early afternoon [facility] Medical History Post-menopausal History of steroid therapy [...] of r (more content not included)... Normal [facility] LDL calc ser/plasOrdered By: Dayday Hairston on 12-21-2024 Cholesterol in LDL [Mass/Vol] 68 mg/dL [facility] Comment on above: Inyeanniro=626-161 m g/dL & Higher Mwrw=669 mg/dL or greater Laboratory - Chemistry and C hemistry - challengeOrdered By: Dayday Hairston on 12-21-2024 AST [Catalytic activity/Vol] 20 U/L <32 [facility] Lipid Profileon 12-21-2024 CHOL:HDL 2.98 Normal [facility] Comment on above: Performed By: #### L 506.0400, L501.9310, L100.0100, L500.4100, L500.4050, L501.9520 #### [facility] Laboratory [address] [place], [address] Cholesterol [Mass/Vol] 122 mg/dL Normal <=200 [facility] Comment on above: Result Comment: Chol esterol level, Desirable <200 mg/dL Borderline high cholesterol 200-239 mg/dL High cholesterol >=240 mg/dL Recommendations of the NCEP Adult Treatment Panel for the following risk-cutoff thresholds for the [place] population. Performed By: #### L 506.0400, L501.9310, L100.0100, L500.4100, L500.4050, L501.9520 #### [facility] Laboratory [address] [place], [address] Cholesterol in HDL [Mass/Vol] 41 mg/dL Normal [facility] Comment on above: Result Comment: Karla onal Cholesterol Education Program (NCEP) guidelines: <40 mg/dL: Low HDL-cholesterol (major risk factor for CHD) >= 60 mg/dL: High HDL-cholesterol (negative risk factor for CHD) HDL-cholesterol is affected by a number of factors, e.g. smoking, exercise, hormones, sex and age. Performed By: #### L 506.0400, L501.9310, L100.0100, L500.4100, L500.4050, L501.9520 #### [facility] Laboratory [address] [place], [address] Cholesterol in LDL [Mass/Vol] 68 mg/dL Normal [facility] Comment on above: Result Comment: Bord ajmukn=876-143 mg/dL Higher Fqxo=362 mg/dL or greater Performed By: #### L 506.0400, L501.9310, L100.0100, L500.4100, L500.4050, L501.9520 #### [facility] [address] [place], [address] ([address] Cholesterol in VLDL [Mass/Vol] 14 mg/dL Normal 5-40 [facility] Comment on above: Performed By: #### L 506.0400, L501.9310, L100.0100, L500.4100, L500.4050, L501.9520 #### [facility] Laboratory [address] [place], [address] Triglyceride [Mass/Vol] 68 mg/dL Normal [facility] Comment on above: Result Comment: The drugs N-Acetylcysteine and Metamizole may falsely depress this assay. Normal range: <150 mg/dL Borderline High: 150-199 mg/dL High: 200-499 mg/dL Very High: >500 mg/dL Performed By: #### L 506.0400, L501.9310, L100.0100, L500.4100, L500.4050, L501.9520 #### [facility] Laboratory [address] [place], [address]848 MCV (mean corpuscular volume ) determinationOrdered By: Dayday Hairston on 12-21-2024 MCV (RBC) [Entitic vol] 104.0 fL High 81-99 [facility] Mean corpuscular hemoglobin (MCH) determinationOrdered By: Dayday Hairston on 12-21-2024 MCH (RBC) [Entitic mass] 33.7 pg High 27.0-32.0 [facility] Mean corpuscular hemoglobin concentration (MCHC) determinationOrdered By: Dayday Hairston on 12-21-2024 MCHC (RBC) [Mass/Vol] 32.4 g/dL 32-36 [facility] Mean platelet volume determi nationOrdered By: Dayday Hairston on 12-21-2024 Platelet mean volume (Bld) [Entitic vol] 11.7 fL 6.2-12.0 [facility] Monocyte percentageOrdered B y: Dayday Hairston on 12-21-2024 Monocytes/100 WBC (Bld) 10.0 % 0-10 [facility] Neutrophil percentageOrdered By: Dayday Hairston on 12-21-2024 Neutrophils/100 WBC (Bld) 61.9 % 47-70 [facility] Nucleated red blood cell per centageOrdered By: Dayday Hairston on 12-21-2024 Nucleated RBC/100 WBC (Bld) [Ratio] 0 % 0-5 [facility] Platelet countOrdered By: Stan tttwan Hairston on 12-21-2024 Platelets (Bld) [#/Vol] 271 10*3/uL 150-450 [facility] Potassium measurement (mass/ volume)Ordered By: Dayday Hairston on 12-21-2024 Potassium (Unsp spec) [Mass/Vol] 4.5 mmol/L 3.3-5.1 [facility] RBC Auto (Bld) [#/Vol]Ordere d By: Dayday Hairston on 12-21-2024 RBC (Bld) [#/Vol] 3.26 10*6/uL Low 4.2-5.4 [facility] Screening total cholesterol/ high density lipoprotein (HDL) cholesterol ratioOrdered By: Dayday Hairston on 12-21-2024 Cholesterol.total/Poppy sterol in HDL [Mass ratio] 2.98 {ratio} [facility] Serum creatinine measurement (mass/volume)Ordered By: Dayday Hairston on 12-21-2024 Creatinine [Mass/Vol] 1.01 mg/dL 0.70-1.20 [facility] Serum globulin measurementOr dered By: Dayday Hairston on 12-21-2024 Globulin (S) [Mass/Vol] 3.1 g/dL 2.2-4.2 [facility] Serum glucose measurement (m ass/volume)Ordered By: Dayday Hairston on 12-21-2024 Glucose [Mass/Vol] 92 mg/dL 70-99 [facility] Serum or plasma alanine renteria otransferase (ALT) measurementOrdered By: Dayday Hairston on 12-21-2024 ALT [Catalytic activity/Vol] 20 U/L <35 [facility] Serum or plasma albumin jd urement (mass/volume)Ordered By: Dayday Hairston on 12-21-2024 Albumin [Mass/Vol] 4.0 g/dL 3.4-4.8 [facility] Serum or plasma albumin/glob ulin mass ratioOrdered By: Dayday Hairston on 12-21-2024 Albumin/Globulin [Mass ratio] 1.3 {ratio} 0.9-2.4 [facility] Serum or plasma alkaline carmita sphatase measurementOrdered By: Dayday Hairston on 12-21-2024 ALP [Catalytic activity/Vol] 108 U/L High 35-104 [facility] Serum or plasma calcium jd urement (mass/volume)Ordered By: Dayday Hairston on 12-21-2024 Calcium [Mass/Vol] 9.4 mg/dL 7.6-11.0 [facility] Serum or plasma cholesterol in HDL measurement (mass/volume)Ordered By: Dayday Hairston on 12-21-2024 Cholesterol in HDL [Mass/Vol] 41 mg/dL >40 [facility] Comment on above: National Cholesterol Education Program (NCEP) guidelines:<40 mg/dL: Low HDL-cholesterol (major risk factor for CHD)>= 60 mg/dL: High HDL-cholesterol (negative risk factor for CHD)HDL-cholesterol is affected by a number of factors, e.g. smoking, exercise, hormones, sex and age. Serum or plasma cholesterol measurement (mass/volume)Ordered By: Dayday Hairston on 12-21-2024 Cholesterol [Mass/Vol] 122 mg/dL <201 [facility] Comment on above: Cholesterol level, D esirable <200 mg/dLBorderline high cholesterol 200-239 mg/dLHigh cholesterol >=240 mg/dLRecommendations of the NCEP Adult Treatment Panel for the following risk-cutoff thresholds for the [place] population. Serum or plasma urea nitroge n measurement (mass/volume)Ordered By: Dayday Hairston on 12-21-2024 Urea nitrogen [Mass/Vol] 22 mg/dL High 4-19 [facility] Sodium levelOrdered By: Oni Hairston on 12-21-2024 Sodium [Moles/Vol] 139 mmol/L 133-145 [facility] T4 Free Directon 12-21-2024 T4 FREE DIRECT 1.50 ng/dL High 0.76-1.46 [facility] Comment on above: Performed By: #### L 506.0400, L501.9310, L100.0100, L500.4100, L500.4050, L501.9520 ####[facility] [address] [place], [place], [id number] T4 Total, Thyroxinon 025 T4 [Mass/Vol] 9.7 ug/dL Normal 4.8-13.9 [facility] Comment on above: Performed By: #### L 506.0400, L501.9310, L100.0100, L500.4100, L500.4050, L501.9520 ####[facility] [address] [place], [place], [address] T4 freeOrdered By: Dayday cordoba on 12-21-2024 Free T4 [Mass/Vol] 1.50 ng/dL High 0.76-1.46 [facility] TSH DL <= 0.005 mIU/L QnOrde red By: Dayday Hairston on 12-21-2024 TSH Qn 0.147 uIU/mL Low 0.300-4.20 0 [facility] Thyroid Stim Hormone (TSH)on 12-21-2024 TSH 0.147 uIU/mL Low 0.300-4.20 0 [facility] Comment on above: Performed By: #### L 506.0400, L501.9310, L100.0100, L500.4100, L500.4050, L501.9520 ####[facility] [address] [place] [place], [address] ThyroxineOrdered By: Dayday Hairston on 12-21-2024 T4 [Mass/Vol] 9.7 ug/dL 4.8-13.9 [facility] Total proteinOrdered By: Alex mandujanomariusz Yovanny on 12-21-2024 Protein [Mass/Vol] 7.1 g/dL 5.9-8.4 [facility] Triglycerides measurementOrd ered By: Dayday Hairston on 12-21-2024 Triglyceride [Mass/Vol] 68 mg/dL <199 [facility] Comment on above: The drugs N-Acetylcy steine and Metamizole may falsely depress this assay. Normal range: <150 mg/dLBorderline High: 150-199 mg/dLHigh: 200-499 mg/dLVery High: >500 mg/dL White blood cell (WBC) count Ordered By: Dayday Hairston on 12-21-2024 WBC (Bld) [#/Vol] 10.9 10*3/uL 4.4-11.0 [facility] Duplex ultrasound of carotid artery reportOrdered By: Dusty Harman on 12-20-2024 Study report [facility] [address] [place] [address] Carotid Duplex Ultrasound 12/19/24 1358 MR#: [id number] Acct: [id number] Name: JERRELL STRICKLAND Magdi Rep #:[id number] : 1945 79 From: Dusty Fairbanks Attending [...] the left vertebral artery. Procedure Carotid Duplex 95064. This is a Carotid Duplex examination using [...] Date Dictated: 12/19/24 1358 Date Transcribed: 12/20/24837 Supervising Producer: Signed [facility] Work Phone: Carotid Duplex Ultrasoundon 12-19-2024 Carotid Duplex Ultrasound [facility] [address] [place] [address] Carotid Duplex Ultrasound 12/19/241357 MR#: [id number] Acct: [id number] Name: JERRELL STRICKLAND Rep #: [id number] : 1945 79 From: Dusty Harman MD Attending Dr: VICTOR M Jimenez Status: REG CLI Ordering Dr: Shweta Cole Date: 12/19/24 Location: [facility] Sex: F C Admitted: Reason For Study [...] the left vertebral artery. Procedure Carotid Duplex 30389. This is a Carotid Duplex examination using [...] Date Dictated: 12/19/24 1358 Date Transcribed: 12/20/24837 Supervising Producer: Signed Normal [facility] Gastroenterology Visit Repor ton 10-16-2024 Gastroenterology Visit Report [facility] Gastroenterology [address] [place] [address] OFFICE VISIT Date of Service: 10/16/24 MR#: [id number] Acct: [id number] Name: JERRELL STRICKLAND Rep #: [id number] : 1945 Provider: VICTOR M Sherman Age/Sex: 79/F Location: [facility] Status: Signed Intake Vital Signs 06/06/24 09:50 [...] is feeling well since adding Metamucil daily. [facility] Medical History Post-menopausal History of steroid therapy [...] History (Revi (more content not included)... Normal [facility] Laboratory - Microbiology an d Antimicrobial susceptibilityOrdered By: Andrew Chang on 09-30-2024 SARS-CoV-2 (COVID-19) RNA PRIYANKA+probe Ql (Unsp spec) Not detected [facility] No Panel InformationOrdered By: Andrew Chang on 09-30-2024 Influenza Types A,B Rapid (Clinic) Negative [facility] Urgent Care Visit Reporton 0 09-30-2024 Urgent Care Visit Report [facility] [address] , [address] [place] [address] OFFICE VISIT Date of Service: 09/30/24 MR#: [id number] Acct: [id number] Name: JERRELL STRICKLAND Rep #: [id number] : 1945 Provider: LEANN branch Age/Sex: 79/F Location: [facility] Status: Signed Intake Vital Signs 09/13/24 14:23 [...] ST. Patient state the symptoms started Tue. [facility] Medical History Post-menopausal History of steroid therapy [...] Bleeding tendency (more content not included)... Normal [facility] Internal Medicine Office Vis itodimitry 08-23-2024 Internal Medicine Office Visit [facility] [address] [place] [address] [place] [address] OFFICE VISIT Date of Service: 09/13/24 MR#: [id number] Acct: [id number] Name: JERRELL STRICKLAND Rep #: [id number] : 1945 Provider: Dr. Dionne powell MD Age/Sex: 79/F Location: [facility] Status: Signed Intake Vital Signs 08/08/24 13:36 [...] but pt states she is taking it. [facility] Medical History Post-menopausal History of steroid therapy [...] Right lumba (more content not included)... Normal [facility] Internal Medicine Office Vis ito 08-22-2024 Internal Medicine Office Visit [facility] [address] [place] [address] [place] [address] OFFICE VISIT Date of Service: 08/22/24 MR#: [id number] Acct: [id number] Name: JERRELL STRICKLAND Rep #: [id number] : 1945 Provider: Dr. 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 Normal [facility] Internal Medicine Office Vis iton 08-08-2024 Internal Medicine Office Visit [facility] [address] [place] [address] [place] [address] OFFICE VISIT Date of Service: 08/08/24 MR#: [id number] Acct: [id number] Name: JERRELL STRICKLAND Rep #: [id number] : 1945 Provider: VICTOR M Ni Age/Sex: 79/F Location: [facility] Status: Signed Intake Vital Signs 06/06/24 09:50 [...] OVER WEEK Chief Complaint: cold like sx Fudge Candy Maker Required: No Accompanied by: Self Is patient [...] of col (more content not included)... Normal [facility] Gastroenterology Visit Repor ton 07-18-2024 Gastroenterology Visit Report [facility] G[facility] [address] [place] [address] OFFICE VISIT Date of Service: 07/18/24 MR#: [id number] Acct: [id number] Name: JERRELL STRICKLAND Rep #: [id number] : 1945 Provider: VICTOR M Sherman Age/Sex: 79/F Location: [facility] Status: Signed Intake Vital Signs 05/28/24 19:28 [...] and N/V. Prior Colonoscopy and EGD . [facility] Medical History Post-menopausal History of steroid therapy [...] fracture with (more content not included)... Normal [facility] Office Visit Reporton 2023 Office Visit Report [facility] [address] [place] [address] OFFICE VISIT Date of Service: 06/25/24 MR#: [id number] Acct: [id number] Patient: JERRELL STRICKLAND Rep #: [id number] : 1945 Provider: MARSHALL NURSE Age/Sex: 78/F Location: [facility] Status: Signed with Addenda ADDENDUM by Dr. [...] bottles in office. Spoke w/Analisa Carl at [facility]. Confirmed she was taking 2 PPI's, and 10mg olmesartan. If any adjustments are needed please advise and will CB the nurse at [phone]. Clinical Quality Measures Falls Risk Screening/Assistive Devices Have you fallen in the past year?: No 06/25/24 1202 Date Dionne Parra Signature: Date (if applicable) CC: [facility] [facility] Internal Medicine Office Vis itodimitry 06-06-2024 Internal Medicine Office Visit [facility] [address] [place] [address] [place] [address] OFFICE VISIT Date of Service: 06/06/24 MR#: [id number] Acct: [id number] Name: JERRELL STRICKLAND Rep #: [id number] : 1945 Provider: VICTOR M Ni Age/Sex: 78/F Location: [facility] Status: Signed Intake Vital Signs 05/15/24 22:03 [...] Reasons: HOSP FU Chief Complaint: hosp f/u Fudge Candy Maker Required: No Accompanied by: Self Is patient [...] lumbar laminect (more content not included)... Normal [facility] 12 Lead EKGon 05-28-2024 12 Lead EKG [facility] Cardiovascular Services [address] [place] [address] 12 Lead EKG 05/28/242017 MR#: [id number] Acct: [id number] Name: JERRELL STRICKLAND Rep #: [id number] : 1945 78 From: Chang Mercado MD [...] repolarization abnormality ( R in aVL , Yordan product , Romhilt- Huitron ) Abnormal ECG Confirmed by JESS SAUCEDA, CHANG ([id number]), editor trade journal DOROTEO HERNANDEZ ([id number]) on 05/29/2024 1:53:14 PM Referred By: Confirmed By: CHANG MERCADO MD 05/29/24 1353 Date Chang Mercado MD CC: Dr. Dionne Magaña MD; Dr. Sarmad Hidalgo, DO Signed Normal [facility] Bedside Glucoseon 05-28-2024 FINGERSTICK GLU 102 mg/dL Normal 74-106 [facility] Comment on above: Result Comment: JONI CINTRON OF PATIENT CARE PER NURSING PROTOCOL Performed By: #### L 501.080 ####[facility] [address] [place], [address] Emergency Department Summary on 05-28-2024 Emergency Department Summary [facility] Medical Records Department [address] [place] [address] Emergency Department Summary 05/28/24 MR#: [id number] Acct: [id number] Name: JERRELL STRICKLAND Rep #: [id number] : 1945 78 From: Sarmad Hidalgo DO [...] Verified 05/11 (more content not included)... Normal [facility] M100.678on 05-28-2024 M100.678 Pending SARS-CoV-2 (COVID 19) Negative INFLUENZA A Negative INFLUENZA B Negative RSV PCR Negative Normal [facility] Comment on above: Performed By: #### M 100.678 ####[facility] [address] [place], [place], [id number] Urinalysis, Completeon 05-28 AMORPHOUS 1+ Normal [facility] Comment on above: Order Comment: CIRILO RUBIOR TO SPECIFY Performed By: #### L 400.0001 ####[facility] [address] [place], [place], [id number] BACTERIA 1+ /hpf Normal None Seen [facility] Comment on above: Order Comment: CIRILO CTOR TO SPECIFY Performed By: #### L 400.0001 ####[facility] [address] [place], [address] EPI,SQUAMOUS 5-10 SEEN Normal 5-10 [facility] Comment on above: Order Comment: CIRILO CTOR TO SPECIFY Performed By: #### L 400.0001 ####[facility] [address] [place], [address] WBC 5-10 SEEN Normal 0-5 [facility] Comment on above: Order Comment: COLLE CTOR TO SPECIFY Performed By: #### L 400.0001 ####[facility] [address] [place], [address] Mucus Ql (Urine sed) 0 SEEN Normal [facility] Comment on above: Order Comment: COLLE CTOR TO SPECIFY Performed By: #### L 400.0001 ####[facility] [address] [place], [address] RBC 0 SEEN Normal 0-5 [facility] Comment on above: Order Comment: COLLE CTOR TO SPECIFY Performed By: #### L 400.0001 ####[facility] [address] [place], [place], [phone] CNOVon 12-24-2023 CNOV Office Visit ([facility] ) -- JERRELL STRICKLAND ([id number]) 1945 F Date Time Provider Department 12/24/23 3:00 PM NOELLE GARCIA [facility] During your visit today, we recorded the following information about you: Temperature Pulse Respiration Blood pressure 98.7 degrees 90/minute 18/minute 119/71 Weight 73 kg Noelle Garcia APRN.DIVING FISHER 12/30/2023 12:47 PM Addendum This note was [...] - PREDNISONE 10 MG TABLET Noelle Garcia APRN.DIVING FISHER Allergies As of Date: 12/24/2023 Noted Allergy Reaction ACETAMINOPHEN-CODEINE 10/13/2015 10 - Anaphylaxis Comments: Can tolerate [place] SEASONAL ALLERGIES 10/13/2015 14 - Other: See [...] for Encounter Date Provider Department Center 12/24/2023 [id number]-UCKTUVNOELLE GARCIA [facility] Encounter Status:Closed by NOELLE GARCIA on 12/24/23 Normal [facility] CNCOon 12-12-2023 CNCO Letter Text Normal [facility] CASE MANAGEMon 12-06-2023 CASE MANAGEM HNO ID: [id number] Author: ?, ?, ? Service: ? 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 Transferred to [facility] Main NSGY on 12/02/23 after OSH [...] Service: 4, Gim Nurse Practitioner: Elizabeth Shahid APRN.DIVING FISHER No orders of the defined types were [...] showed pneumocephal (more content not included)... Normal [facility] Renal function 2000 panelon 12-06-2023 Albumin [Mass/Vol] 3.8 g/dL Low 3.9-4.[address] [facility] Comment on above: Order Comment: Speci men Type: BLOOD SPECIMENOrdering Facility: [facility] Address: [address] [place] [address] Performed By: #### 2 4362-6 ####[facility] LABCLIA [id number] [place] [address] [place] Anion gap [Moles/Vol] 11 mmol/L Normal 9-[address] [facility] Comment on above: Order Comment: Speci men Type: BLOOD SPECIMENOrdering Facility: [facility] Address: [address] [place] [address] Performed By: #### 2 4362-6 ####[facility] LABCLIA [id number] [address] [address] [place] Calcium [Mass/Vol] 9.4 mg/dL Normal 8.5-10.[address] [facility] Comment on above: Order Comment: Speci men Type: BLOOD SPECIMENOrdering Facility: [facility] Address: [address] [place] [address] Performed By: #### 2 4362-6 ####[facility] LABCLIA [id number] [place] [address] [place] Chloride [Moles/Vol] 102 mmol/L Normal 97-105 [facility] Comment on above: Order Comment: Speci men Type: BLOOD SPECIMENOrdering Facility: [facility] Address: [address] [place] [address] Performed By: #### 2 4362-6 ####[facility] LABCLIA [id number] [place] [address] [place] CO2 [Moles/Vol] 22 mmol/L Normal 22-30 [facility] Comment on above: Order Comment: Speci men Type: BLOOD SPECIMENOrdering Facility: [facility] Address: [address] [place] [address] Performed By: #### 2 4362-6 ####[facility] LABCLIA [id number] [place] [address] [place] Creatinine [Mass/Vol] 0.86 mg/dL Normal 0.58-0.96 [facility] Comment on above: Order Comment: Speci men Type: BLOOD SPECIMENOrdering Facility: [facility] Address: [address] [place] [address] Performed By: #### 2 4362-6 ####[facility] LABCLIA [id number] [place] [address] [facility] [place] Creatinine and Glomerular filtration rate.predicted panel (S/P/Bld) 68 mL/min/1.73m??? Normal >=60 [facility] Comment on above: Order Comment: Rajiv francis Type: BLOOD SPECIMENOrdering Facility: [facility] Address: [address] [place] [address] Result Comment: Audra mated Glomerular Filtration Rate [...] actual GFR. Performed By: #### 2 4362-6 ####[facility] LABIA [id number] [place] [address] [facility] Glucose [Mass/Vol] 95 mg/dL Normal 74-[address] [facility] Comment on above: Order Comment: Rajiv francis Type: BLOOD SPECIMENOrdering Facility: [facility] Address: [address] [place] [address] Result Comment: The [place] Diabetes Association (ADA) provides guidance for cutoff [...] Standards of Medical Care in Diabetes 2016, [place] [employer]. Diabetes Care. 2016.39(Suppl 1). Performed By: #### 2 4362-6 ####[facility] LABCLIA [id number] [address] [id number] [address] [place] Phosphate [Mass/Vol] 4.0 mg/dL Normal 2.7-4.8 [facility] Comment on above: Order Comment: Speci men Type: BLOOD SPECIMENOrdering Facility: [facility] Address: [address] [place] [address] Performed By: #### 2 4362-6 ####[facility] LABCLIA [id number] [place] [address] [place] Potassium [Moles/Vol] 4.5 mmol/L Normal 3.7-5.1 [facility] Comment on above: Order Comment: Speci men Type: BLOOD SPECIMENOrdering Facility: [facility] Address: [address] [place] [address] Performed By: #### 2 4362-6 ####[facility] LABCLIA [id number] [place] [address] [place] Sodium [Moles/Vol] 135 mmol/L Low 136-[address] [facility] Comment on above: Order Comment: Speci men Type: BLOOD SPECIMENOrdering Facility: [facility] Address: [address] [place] [address] Performed By: #### 2 4362-6 ####[facility] LABCLIA [id number] [place] [address] [place] Urea nitrogen [Mass/Vol] 28 mg/dL High 7-21 [facility] Comment on above: Order Comment: Speci men Type: BLOOD SPECIMENOrdering Facility: [facility] Address: [address] [place] [address] Performed By: #### 2 4362-6 ####[facility] LABCLIA [id number] [place] [address] [place] Basic metabolic 2000 panelon 12-05-2023 Anion gap [Moles/Vol] 16 mmol/L Normal 9-18 [facility] Comment on above: Order Comment: Speci men Type: BLOOD SPECIMENOrdering Facility: [facility] Address: [address] [place] [address] Performed By: #### 2 4321-2, , 2776-07 ####[facility] LABCLIA [id number] [address] [address] [place] Calcium [Mass/Vol] 9.3 mg/dL Normal 8.5-10.[address] [facility] Comment on above: Order Comment: Speci men Type: BLOOD SPECIMENOrdering Facility: [facility] Address: [address] [place] [address] Performed By: #### 2 4321-2, , 2776-07 ####[facility] LABCLIA [id number] [address] [address] [place] Chloride [Moles/Vol] 98 mmol/L Normal 97-105 [facility] Comment on above: Order Comment: Speci men Type: BLOOD SPECIMENOrdering Facility: [facility] Address: [address] [place] [address] Performed By: #### 2 4321-2, , 2776-07 ####[facility] LABCLIA [id number] [address] [address] [place] CO2 [Moles/Vol] 18 mmol/L Low 22-30 [facility] Comment on above: Order Comment: Speci men Type: BLOOD SPECIMENOrdering Facility: [facility] Address: [address] [place] [address] Performed By: #### 2 4321-2, , 2776-07 ####[facility] LABCLIA [id number] [address] [address] [place] Creatinine [Mass/Vol] 0.88 mg/dL Normal 0.58-0.96 [facility] Comment on above: Order Comment: Speci men Type: BLOOD SPECIMENOrdering Facility: [facility] Address: [address] [place] [address] Performed By: #### 2 4321-2, 33009-3, 2776-07 ####[facility] LABIA [id number] [place] [address] [place] Creatinine and Glomerular filtration rate.predicted panel (S/P/Bld) 67 mL/min/1.73m??? Normal >=60 [facility] Comment on above: Order Comment: Rajiv francis Type: BLOOD SPECIMENOrdering Facility: [facility] Address: [address] [place] [address] Result Comment: Audra mated Glomerular Filtration Rate [...] Performed By: #### 2 4321-2, , 2776-07 ####[facility] LABIA [id number] [place] [address] [place] Glucose [Mass/Vol] 119 mg/dL High 74-[address] [facility] Comment on above: Order Comment: Rajiv francis Type: BLOOD SPECIMENOrdering Facility: [facility] Address: [address] [place] [address] Result Comment: The [place] Diabetes Association (ADA) provides guidance for cutoff [...] Standards of Medical Care in Diabetes 2016, [place] [employer]. Diabetes Care. 2016.39(Suppl 1). Performed By: #### 2 4321-2, , 2776-07 ####[facility] LABCLIA [id number] [address] [address] [place] Potassium [Moles/Vol] 5.0 mmol/L Normal 3.7-5.1 [facility] Comment on above: Order Comment: Speci men Type: BLOOD SPECIMENOrdering Facility: [facility] Address: [address] [place] [address] Performed By: #### 2 4321-2, , 2776-07 ####[facility] LABCLIA [id number] [place] [address] [place] Sodium [Moles/Vol] 132 mmol/L Low 136-[address] [facility] Comment on above: Order Comment: Speci men Type: BLOOD SPECIMENOrdering Facility: [facility] Address: [address] [place] [address] Performed By: #### 2 4321-2, , 2776-07 ####[facility] LABIA [id number] [place] [address] [place] Urea nitrogen [Mass/Vol] 26 mg/dL High 7-21 [facility] Comment on above: Order Comment: Speci men Type: BLOOD SPECIMENOrdering Facility: [facility] Address: [address] [place] [address] Performed By: #### 2 4321-2, , 2776-07 ####[facility] LABIA [id number] [address] [address] [place] Magnesium SerPl-mCncon 12-04 Magnesium [Mass/Vol] 1.9 mg/dL Normal 1.7-2.3 [facility] Comment on above: Order Comment: Speci men Type: BLOOD SPECIMENOrdering Facility: [facility] Address: [address] [place] [address] Performed By: #### 2 4321-2, 52881-1, 2776- ####[facility] LABCLIA [id number] [place] [address] [place] Phosphate SerPl-mCncon 12-04 Phosphate [Mass/Vol] 4.0 mg/dL Normal 2.7-4.8 [facility] Comment on above: Order Comment: Speci men Type: BLOOD SPECIMENOrdering Facility: [facility] Address: [address] [place] [address] Performed By: #### 2 4321-2, , 2776-07 ####[facility] LABCLIA [id number] [place] [address] [place] Basic metabolic 2000 panelon 12-04-2023 Anion gap [Moles/Vol] 17 mmol/L Normal 9-18 [facility] Comment on above: Order Comment: Speci men Type: BLOOD SPECIMENOrdering Facility: [facility] Address: [address] [place] [address] Performed By: #### 2 4321-2 ####[facility] LABCLIA [id number] [place] [address] [place] Calcium [Mass/Vol] 9.5 mg/dL Normal 8.5-10.[address] [facility] Comment on above: Order Comment: Speci men Type: BLOOD SPECIMENOrdering Facility: [facility] Address: [address] [place] [address] Performed By: #### 2 4321-2 ####[facility] LABCLIA [id number] [place] [address] [place] Chloride [Moles/Vol] 90 mmol/L Low 97-105 [facility] Comment on above: Order Comment: Speci men Type: BLOOD SPECIMENOrdering Facility: [facility] Address: [address] [place] [address] Performed By: #### 2 4321-2 ####[facility] LABCLIA [id number] [place] [address] [place] CO2 [Moles/Vol] 19 mmol/L Low 22-30 [facility] Comment on above: Order Comment: Speci men Type: BLOOD SPECIMENOrdering Facility: [facility] Address: [address] [place] [address] Performed By: #### 2 4321-2 ####[facility] LABIA [id number] [place] [address] [place] Creatinine [Mass/Vol] 0.92 mg/dL Normal 0.58-0.96 [facility] Comment on above: Order Comment: Speci men Type: BLOOD SPECIMENOrdering Facility: [facility] Address: [address] [place] [address] Performed By: #### 2 4321-2 ####[facility] [id number] [place] [address] [place] [facility] Creatinine and Glomerular filtration rate.predicted panel (S/P/Bld) 63 mL/min/1.73m??? Normal >=60 [facility] Comment on above: Order Comment: Speci men Type: BLOOD SPECIMENOrdering Facility: [facility] Address: [address] [place] [address] Result Comment: Audra mated Glomerular Filtration Rate [...] actual GFR. Performed By: #### 2 4321-2 ####[facility] LABIA [id number] [place] [address] [place] Glucose [Mass/Vol] 89 mg/dL Normal 74-[address] [facility] Comment on above: Order Comment: Speci men Type: BLOOD SPECIMENOrdering Facility: [facility] Address: [address] [place] [id number] Result Comment: The [place] Diabetes Association (ADA) provides guidance for cutoff [...] Standards of Medical Care in Diabetes 2016, [place] [employer]. Diabetes Care. 2016.39(Suppl 1). Performed By: #### 2 4321-2 ####[facility] LABCLIA [id number] [place] [address] [place] Potassium [Moles/Vol] 4.2 mmol/L Normal 3.7-5.1 [facility] Comment on above: Order Comment: Speci men Type: BLOOD SPECIMENOrdering Facility: [facility] Address: [address] [place] [address] Performed By: #### 2 4321-2 ####[facility] LABIA [id number] [place] [address] [place] Sodium [Moles/Vol] 126 mmol/L Low 136-[address] [facility] Comment on above: Order Comment: Speci men Type: BLOOD SPECIMENOrdering Facility: [facility] Address: [address] [place] [id number] Performed By: #### 2 4321-2 ####[facility] LABIA [id number] [place] [address] [place] Urea nitrogen [Mass/Vol] 21 mg/dL Normal 7-21 [facility] Comment on above: Order Comment: Speci men Type: BLOOD SPECIMENOrdering Facility: [facility] Address: [address] [place] [address] Performed By: #### 2 4321-2 ####[facility] LABCLIA [id number] [place] [address] [place] Anion gap [Moles/Vol] 15 mmol/L Normal 9-18 [facility] Comment on above: Order Comment: Speci men Type: BLOOD SPECIMENOrdering Facility: [facility] Address: [address] [place] [address] Performed By: #### 2 4321-2 ####[facility] LABCLIA [id number] [place] [address] [place] Calcium [Mass/Vol] 9.5 mg/dL Normal 8.5-10.[address] [facility] Comment on above: Order Comment: Speci men Type: BLOOD SPECIMENOrdering Facility: [facility] Address: [address] [place] [address] Performed By: #### 2 4321-2 ####[facility] LABCLIA [id number] [place] [address] [place] Chloride [Moles/Vol] 92 mmol/L Low 97-105 [facility] Comment on above: Order Comment: Speci men Type: BLOOD SPECIMENOrdering Facility: [facility] Address: [address] [place] [address] Performed By: #### 2 4321-2 ####[facility] LABCLIA [id number] [place] [address] [place] CO2 [Moles/Vol] 20 mmol/L Low 22-30 [facility] Comment on above: Order Comment: Speci men Type: BLOOD SPECIMENOrdering Facility: [facility] Address: [address] [place], [place] [address] Performed By: #### 2 4321-2 ####[facility] LABCLIA [id number] [place] [address] [place] Creatinine [Mass/Vol] 0.85 mg/dL Normal 0.58-0.96 [facility] Comment on above: Order Comment: Rajiv francis Type: BLOOD SPECIMENOrdering Facility: [facility] Address: [address] [place] [address] Performed By: #### 2 4321-2 ####[facility] LABCLIA [id number] [place] [address] [place] Creatinine and Glomerular filtration rate.predicted panel (S/P/Bld) 69 mL/min/1.73m??? Normal >=60 [facility] Comment on above: Order Comment: Rajiv francis Type: BLOOD SPECIMENOrdering Facility: [facility] Address: [address] [place] [address] Result Comment: Audra mated Glomerular Filtration Rate [...] actual GFR. Performed By: #### 2 4321-2 ####[facility] LABCLIA [id number] [place] [address] [place] Glucose [Mass/Vol] 86 mg/dL Normal 74-[address] [facility] Comment on above: Order Comment: Rajiv francis Type: BLOOD SPECIMENOrdering Facility: [facility] Address: [address] [place] [address] Result Comment: The [place] Diabetes Association (ADA) provides guidance for cutoff [...] Standards of Medical Care in Diabetes 2016, [place] [employer]. Diabetes Care. 2016.39(Suppl 1). Performed By: #### 2 4321-2 ####[facility] LABCLIA [id number] [place] [address] [place] Potassium [Moles/Vol] 4.3 mmol/L Normal 3.7-5.1 [facility] Comment on above: Order Comment: Speci men Type: BLOOD SPECIMENOrdering Facility: [facility] Address: [address] [place] [address] Performed By: #### 2 4321-2 ####[facility] LABIA [id number] [place] [address] [place] Sodium [Moles/Vol] 127 mmol/L Low 136-[address] [facility] Comment on above: Order Comment: Speci men Type: BLOOD SPECIMENOrdering Facility: [facility] Address: [address] [place] [address] Performed By: #### 2 4321-2 ####[facility] LABIA [id number] [place] [address] [place] Urea nitrogen [Mass/Vol] 19 mg/dL Normal 7-21 [facility] Comment on above: Order Comment: Speci men Type: BLOOD SPECIMENOrdering Facility: [facility] Address: [address] [place] [address] Performed By: #### 2 4321-2 ####[facility] LABIA [id number] [place] [id number] [place] CONSULT PROGon 12-04-2023 CONSULT PROG HNO ID: [id number] Author: JULIO HERNÁNDEZ RPh Service: Pharmacy Author [...] questions, please contact Julio Hernández pharmD at [phone]. Estimated Creatinine Clearance: 36.2 mL/min (A) (based [...] 12/01/2023 162.6 cm (5' 4) Julio Hernández [facility] December 04, 2023 8:45 AM Normal [facility] THERAPY NTon 12-04-2023 THERAPY NT HNO ID: [id number] Author: MANUEL DISLA, PT, DPT Service: Physical [...] December 04, 2023 TIME: 7:22 AM Normal [facility] Basic metabolic 2000 panelon 12-03-2023 Anion gap [Moles/Vol] 15 mmol/L Normal 9-18 [facility] Comment on above: Order Comment: Speci men Type: BLOOD SPECIMENOrdering Facility: [facility] Address: [address] [place] [address] Performed By: #### 2 4321-2, 3083-1 ####[facility] LABCLIA [id number] [place] [address] [place] Calcium [Mass/Vol] 9.1 mg/dL Normal 8.5-10.[address] [facility] Comment on above: Order Comment: Speci men Type: BLOOD SPECIMENOrdering Facility: [facility] Address: [address] [place] [address] Performed By: #### 2 4321-2, 3083- ####[facility] LABCLIA [id number] [place] [address] [place] Chloride [Moles/Vol] 89 mmol/L Low 97-105 [facility] Comment on above: Order Comment: Speci men Type: BLOOD SPECIMENOrdering Facility: [facility] Address: [address] [place] [address] Performed By: #### 2 4321-2, 3083-1 ####[facility] LABCLIA [id number] [place] [address] [place] CO2 [Moles/Vol] 20 mmol/L Low 22-30 [facility] Comment on above: Order Comment: Speci men Type: BLOOD SPECIMENOrdering Facility: [facility] Address: [address] [place] [address] Performed By: #### 2 4321-2, 3083-1 ####[facility] LABIA [id number] [address] [address] [place] Creatinine [Mass/Vol] 1.22 mg/dL High 0.58-0.96 [facility] Comment on above: Order Comment: Speci penny Type: BLOOD SPECIMENOrdering Facility: [facility] Address: [address] [place] [address] Performed By: #### 2 4321-2, 3083-1 ####[facility] LABIA [id number] [place] [address] [place] Creatinine and Glomerular filtration rate.predicted panel (S/P/Bld) 45 mL/min/1.73m??? Low >=60 [facility] Comment on above: Order Comment: Rajiv francis Type: BLOOD SPECIMENOrdering Facility: [facility] Address: [address] [place] [address] Result Comment: Audra mated Glomerular Filtration Rate [...] GFR. Performed By: #### 2 4321-2, 3083-07 ####[facility] LABIA [id number] [place] [address] [place] Glucose [Mass/Vol] 109 mg/dL High 74-[address] [facility] Comment on above: Order Comment: Specera francis Type: BLOOD SPECIMENOrdering Facility: [facility] Address: [address] [place] [address] Result Comment: The [place] [employer] (ADA) provides guidance for cutoff [...] Standards of Medical Care in Diabetes 2016, [place] [employer]. Diabetes Care. 2016.39(Suppl 1). Performed By: #### 2 4321-2, 3083- ####[facility] LABCLIA [id number] [place] [address] [place] Potassium [Moles/Vol] 4.3 mmol/L Normal 3.7-5.1 [facility] Comment on above: Order Comment: Rehanai men Type: BLOOD SPECIMENOrdering Facility: [facility] Address: [address] [place] [address] Performed By: #### 2 4320-2, 3083-07 ####[facility] LABCLIA [id number] [place] [address] [place] Sodium [Moles/Vol] 124 mmol/L Low 136-[address] [facility] Comment on above: Order Comment: Rajiv francis Type: BLOOD SPECIMENOrdering Facility: [facility] Address: [address] [place] [address] Performed By: #### 2 4320-2, 3083-07 ####[facility] LABCLIA [id number] [place] [address] [place] Urea nitrogen [Mass/Vol] 20 mg/dL Normal 7-21 [facility] Comment on above: Order Comment: Rehanai men Type: BLOOD SPECIMENOrdering Facility: [facility] Address: [address] [place] [address] Performed By: #### 2 4320-2, 3083- ####[facility] LABCLIA [id number] [place] [address] [place] Anion gap [Moles/Vol] 13 mmol/L Normal 9-18 [facility] Comment on above: Order Comment: Speci men Type: BLOOD SPECIMENOrdering Facility: [facility] Address: [address] [place] [address] Performed By: #### 2 4321-2 ####[facility] LABCLIA [id number] [address] [address] [place] Calcium [Mass/Vol] 9.3 mg/dL Normal 8.5-10.[address] [facility] Comment on above: Order Comment: Speci men Type: BLOOD SPECIMENOrdering Facility: [facility] Address: [address] [place], [place] [address] Performed By: #### 2 4321-2 ####[facility] LABCLIA [id number] [place] [address] [place] Chloride [Moles/Vol] 95 mmol/L Low 97-105 [facility] Comment on above: Order Comment: Speci men Type: BLOOD SPECIMENOrdering Facility: [facility] Address: [address] [place], [place] [address] Performed By: #### 2 4321-2 ####[facility] LABCLIA [id number] [place] [address] [place] CO2 [Moles/Vol] 20 mmol/L Low 22-30 [facility] Comment on above: Order Comment: Speci men Type: BLOOD SPECIMENOrdering Facility: [facility] Address: [address] [place], [place] [address] Performed By: #### 2 4321-2 ####[facility] LABCLIA [id number] [place] [address] [place] Creatinine [Mass/Vol] 0.96 mg/dL Normal 0.58-0.96 [facility] Comment on above: Order Comment: Speci men Type: BLOOD SPECIMENOrdering Facility: [facility] Address: [address] [place], [place] [address] Performed By: #### 2 4321-2 ####[facility] LABCLIA [id number] [place] [address] [place] Creatinine and Glomerular filtration rate.predicted panel (S/P/Bld) 60 mL/min/1.73m??? Normal >=60 [facility] Comment on above: Order Comment: Rajiv francis Type: BLOOD SPECIMENOrdering Facility: [facility] Address: [address] [place] [address] Result Comment: Audra mated Glomerular Filtration Rate [...] actual GFR. Performed By: #### 2 4321-2 ####[facility] LABIA [id number] [place] [address] [place] Glucose [Mass/Vol] 87 mg/dL Normal 74-[address] [facility] Comment on above: Order Comment: Rajiv francis Type: BLOOD SPECIMENOrdering Facility: [facility] Address: [address] [place] [address] Result Comment: The [place] Diabetes [employer] (ADA) provides guidance for cutoff [...] Standards of Medical Care in Diabetes 2016, [place] [employer]. Diabetes Care. 2016.39(Suppl 1). Performed By: #### 2 4321-2 ####[facility] LABIA [id number] [place] [address] [place] Potassium [Moles/Vol] 4.2 mmol/L Normal 3.7-5.1 [facility] Comment on above: Order Comment: Speci men Type: BLOOD SPECIMENOrdering Facility: [facility] Address: [address] [place] [address] Performed By: #### 2 4321-2 ####[facility] LABCLIA [id number] [place] [address] [place] Sodium [Moles/Vol] 128 mmol/L Low 136-[address] [facility] Comment on above: Order Comment: Speci men Type: BLOOD SPECIMENOrdering Facility: [facility] Address: [address] [place] [address] Performed By: #### 2 4321-2 ####[facility] LABIA [id number] [place] [address] [place] Urea nitrogen [Mass/Vol] 16 mg/dL Normal 7-21 [facility] Comment on above: Order Comment: Speci men Type: BLOOD SPECIMENOrdering Facility: [facility] Address: [address] [place] [address] Performed By: #### 2 4321-2 ####[facility] LABIA [id number] [place] [address] [place] Creatinine Unsp time (U) [Ma ss/Vol]on 12-03-2023 Creatinine (U) [Mass/Vol] 137.0 mg/dL Normal 20.0-300.0 [facility] Comment on above: Order Comment: Speci men Type: URINE SPECIMENOrdering Facility: [facility] Address: [address] [place] [address] Performed By: #### 3 5674-1, 07547-6, UUNR ####[facility] LABIA [id number] [place] [address] [place] Osmolality SerPlon Osmolality [Osmolality] 267 mosm/kg Low 275-300 [facility] Comment on above: Order Comment: Speci men Type: BLOOD SPECIMENOrdering Facility: [facility] Address: [address] [place] [address] Performed By: #### 2 692-2 ####[facility] [id number] [place] [address] [place] Osmolality Uron 12-03-2023 Osmolality (U) [Osmolality] 427 mosm/kg Normal 50-1200 [facility] Comment on above: Order Comment: Speci men Type: URINE SPECIMENOrdering Facility: [facility] Address: [address] [place] [address] Performed By: #### 2 695-5 ####[facility] [id number] [place] [address] [place] Sodium ?Tm Ur-sCncon 024 Sodium Unsp time (U) [Moles/Vol] 99 mmol/L Normal 14-216 [facility] Comment on above: Order Comment: Speci men Type: URINE SPECIMENOrdering Facility: [facility] Address: [address] [place] [address] Performed By: #### 3 5674-1, 42602-8, UUNR ####[facility] [id number] [place] [address] [place] Sodium SerPl-sCncon 12-03-19 24 Sodium [Moles/Vol] 125 mmol/L Low 136-[address] [facility] Comment on above: Order Comment: Speci men Type: BLOOD SPECIMENOrdering Facility: [facility] Address: [address] [place] [address] Performed By: #### 2 951-2 ####[facility] LABIA [id number] [place] [address] [place] THERAPY NTon 12-03-2023 THERAPY NT HNO ID: [id number] Author: SLOAN MOON, PT, DPT Service: Physical Therapy Author Type: Physical Therapist Type: Therapy (PT/OT/Speech/Resp) Filed: 12/03/2023 15:25 Note Text: Physical Therapy Evaluation Summary SERVICE DATE: 12/03/2023 SERVICE TIME: 1428 to 1448 ROOM: [place] [address] PT 6 Clicks Score: 24 DISCHARGE RECOMMENDATIONS [...] Presented to [facility] with hyponatremia. Transferred to [facility] Main [facility] on 12/02/23 after OSH [...] December 03, 2023 TIME: 3:25 PM Normal [facility] UREA NITROGEN, RANDOM URINEo n 12-03-2023 UREA NITROGEN,UR,RAN 358 mg/dL Normal 140-1500 [facility] Comment on above: Order Comment: Speci men Type: URINE SPECIMENOrdering Facility: [facility] Address: [address] [place] [address] Performed By: #### 3 5674-1, 71896-9, UUNR ####[facility] LABCLIA [id number] [place] [address] [place] Urate SerPl-mCncon 4 Urate [Mass/Vol] 6.2 mg/dL Normal 2.5-6.6 [facility] Comment on above: Order Comment: Speci men Type: BLOOD SPECIMENOrdering Facility: [facility] Address: [address] [place] [address] Performed By: #### 2 4321-2, 3084-1 ####[facility] LABCLIA [id number] [place] [address] [place] ANTIBODY ID PATIENTon 2023 ANTIBODY IDENTIFIED Anti-M Normal [place] Comment on above: Order Comment: Speci men Type: BLOOD SPECIMEN [facility] Address: [address] [place] [address] Performed By: #### 2 4323-8, 07003-9, 2777-1, 3016-3 #### [facility] LAB CLIA [id number] [address] [place] [address] [place] ANTIBODY SCREENon 12-02-2023 HISTORICAL AB SCR STATUS Positive Abnormal [facility] Comment on above: Order Comment: Speci men Type: BLOOD SPECIMEN [facility] Address: [address] [place] [address] Performed By: #### 2 4323-8, 78359-8, 2777-1, 3016-3 #### [facility] CLIA [id number] [address] [place] [address] BLOOD BANK PLACEHOLDER, ANTI BODY INTERPRETATIONon 12-02-2023 BLOOD BANK REPORT, ANTIBODY INTERPRETATION See Pathology Report Normal [facility] Comment on above: Order Comment: Speci men Type: BLOOD SPECIMEN [facility] Address: [address] [place] [address] Performed By: #### 2 4323-8, 49318-5, 2777-1, 6-3 #### [facility] CLIA [id number] [address] [place] [address] BLOOD BANK REPORT, ANTIBODY INTERPRETATIONon 12-02-2023 PATHOLOGY INTERPRETATION Normal [facility] Comment on above: Order Comment: Speci men Type: BLOOD SPECIMEN [facility] Address: [address] [place] [address] Result Comment: Anti -M, an alloantibody to [...] are required. Performed By: #### 2 4323-8, 87580-5, 2777-1, 3016-3 #### [facility] CLIA [id number] [address] [place] [address] [place] CBC W Auto Differential pane l (Bld)on 12-02-2023 Basophils (Bld) [#/Vol] 0.09 10*3/uL Normal <0.11 [facility] Comment on above: Order Comment: Speci men Type: BLOOD SPECIMEN [facility] Address: [address] [place] [address] Performed By: #### 2 4323-8, 31936-6, 277-1, 6-3 #### [facility] CLIA [id number] [address] [place] [address] [place] Basophils/100 WBC (Bld) 1.1 % Normal [facility] Comment on above: Order Comment: Speci men Type: BLOOD SPECIMEN [facility] Address: [address] [place] [address] Performed By: #### 2 4323-8, 60450-9, 277-1, 6-3 #### [facility] CLIA [id number] [address] [place] [address] [place] Differential cell count method Nom (Bld) Auto Normal [facility] Comment on above: Order Comment: Speci men Type: BLOOD SPECIMEN [facility] Address: [address] [place] [address] Performed By: #### 2 4323-8, 30665-4, 277-1, 6-3 #### [facility] CLIA [id number] [address] [place] [address] [place] Eosinophils (Bld) [#/Vol] 0.26 10*3/uL Normal <0.46 [facility] Comment on above: Order Comment: Speci men Type: BLOOD SPECIMEN [facility] Address: [address] [place] [address] Performed By: #### 2 4323-8, 63470-4, 277-1, 3016-3 #### [facility] CLIA [id number] [address] [place] [address] [place] Eosinophils/100 WBC (Bld) 3.1 % Normal [facility] Comment on above: Order Comment: Speci men Type: BLOOD SPECIMEN [facility] Address: [address] [place] [address] Performed By: #### 2 4323-8, 14807-2, 277-, 6-3 #### [facility] CLIA [id number] [address] [place] [address] [place] Erythrocyte distribution width (RBC) [Ratio] 12.8 % Normal 11.5-15.0 [facility] Comment on above: Order Comment: Speci men Type: BLOOD SPECIMEN [facility] Address: [address] [place] [address] Performed By: #### 2 4323-8, 31484-1, 277-, 6-3 #### [facility] CLIA [id number] [address] [place] [address] [place] Hematocrit (Bld) [Volume fraction] 34.2 % Low 36.0-46.0 [facility] Comment on above: Order Comment: Speci men Type: BLOOD SPECIMEN [facility] Address: [address] [place] [address] Performed By: #### 2 4323-8, 03194-2, 277-, 6-3 #### [facility] CLIA [id number] [address] [place] [address] [place] Hemoglobin (Bld) [Mass/Vol] 11.6 g/dL Normal 11.5-15.5 [facility] Comment on above: Order Comment: Speci men Type: BLOOD SPECIMEN [facility] Address: [address] [place], [place] [address] Performed By: #### 2 4323-8, 21262-9, 2776-1, 6-3 #### [facility] CLIA [id number] [address] [place] [address] [place] Immature granulocytes (Bld) [#/Vol] 10*3/uL Normal <0.10 [facility] Comment on above: Order Comment: Speci men Type: BLOOD SPECIMEN [facility] Address: [address] [place] [address] Performed By: #### 2 4323-8, 65611-2, 2776-, 6-3 #### [facility] CLIA [id number] [address] [place] [address] [place] Immature granulocytes/100 WBC (Bld) 0.2 % Normal [facility] Comment on above: Order Comment: Speci men Type: BLOOD SPECIMEN [facility] Address: [address] [place] [address] Performed By: #### 2 4323-8, 11773-7, 2776-1, 6-3 #### [facility] CLIA [id number] [address] [place] [address] [place] Lymphocytes (Bld) [#/Vol] 1.21 10*3/uL Normal 1.00-4.00 [facility] Comment on above: Order Comment: Speci men Type: BLOOD SPECIMEN [facility] Address: [address] [place], [place] [address] Performed By: #### 2 4323-8, 76889-7, 2776-, 6-3 #### [facility] CLIA [id number] [address] [place], [place] [address] [place] Lymphocytes/100 WBC (Bld) 14.3 % Normal [facility] Comment on above: Order Comment: Speci men Type: BLOOD SPECIMEN [facility] Address: [address] [place] [address] Performed By: #### 2 4323-8, 01568-7, 7-1, 6-3 #### [facility] CLIA [id number] [address] [place] [address] [place] MCH (RBC) [Entitic mass] 33.3 pg Normal 26.0-34.0 [facility] Comment on above: Order Comment: Speci men Type: BLOOD SPECIMEN [facility] Address: [address] [place] [address] Performed By: #### 2 4323-8, 31180-3, 2776-1, 3016-3 #### [facility] CLIA [id number] [address] [place] [address] [place] MCHC (RBC) [Mass/Vol] 33.9 g/dL Normal 30.5-36.0 [facility] Comment on above: Order Comment: Speci men Type: BLOOD SPECIMEN [facility] Address: [address] [place] [address] Performed By: #### 2 4323-8, 47046-9, 277-1, 6-3 #### [facility] CLIA [id number] [address] [place] [address] [place] MCV (RBC) [Entitic vol] 98.3 fL Normal 80.0-100.[address] [facility] Comment on above: Order Comment: Speci men Type: BLOOD SPECIMEN [facility] Address: [address] [place] [address] Performed By: #### 2 4323-8, 90300-4, 277-1, 3016-3 #### [facility] CLIA [id number] [address] [place] [address] [place] Monocytes (Bld) [#/Vol] 0.83 10*3/uL Normal <0.87 [facility] Comment on above: Order Comment: Speci men Type: BLOOD SPECIMEN [facility] Address: [address] [place] [address] Performed By: #### 2 4323-8, 36191-1, 2777-1, 3016-3 #### [facility] CLIA [id number] [address] [place] [address] [place] Monocytes/100 WBC (Bld) 9.8 % Normal [facility] Comment on above: Order Comment: Speci men Type: BLOOD SPECIMEN [facility] Address: [address] [place] [address] Performed By: #### 2 4323-8, 11758-8, 2777-1, 3016-3 #### [facility] CLIA [id number] [address] [place] [address] [place] Neutrophils (Bld) [#/Vol] 6.08 10*3/uL Normal 1.45-7.50 [facility] Comment on above: Order Comment: Speci men Type: BLOOD SPECIMEN [facility] Address: [address] [place] [address] Performed By: #### 2 4323-8, 09045-1, 2777-1, 3016-3 #### [facility] CLIA [id number] [address] [place] [address] [place] Neutrophils/100 WBC (Bld) 71.5 % Normal [facility] Comment on above: Order Comment: Speci men Type: BLOOD SPECIMEN [facility] Address: [address] [place] [address] Performed By: #### 2 4323-8, 46769-5, 2777-1, 3016-3 #### [facility] CLIA [id number] [address] [place] [address] [place] Nucleated RBC (Bld) [#/Vol] 10*3/uL Normal <0.01 [facility] Comment on above: Order Comment: Speci men Type: BLOOD SPECIMEN [facility] Address: [address] [place] [address] Performed By: #### 2 4323-8, 05040-9, 2777-1, 3016-3 #### [facility] CLIA [id number] [address] [place] [address] [place] Nucleated RBC/100 WBC (Bld) [Ratio] 0.0 /100 WBC Normal [facility] Comment on above: Order Comment: Speci men Type: BLOOD SPECIMEN [facility] Address: [address] [place] [address] Performed By: #### 2 4323-8, 54120-6, 2777-1, 3016-3 #### [facility] CLIA [id number] [address] [place] [address] [place] Platelet mean volume (Bld) [Entitic vol] 10.8 fL Normal 9.0-12.7 [facility] Comment on above: Order Comment: Speci men Type: BLOOD SPECIMEN [facility] Address: [address] [place] [address] Performed By: #### 2 4323-8, 56073-7, 2777-1, 3016-3 #### [facility] CLIA [id number] [address] [place] [address] [place] Platelets (Bld) [#/Vol] 231 10*3/uL Normal 150-400 [facility] Comment on above: Order Comment: Speci men Type: BLOOD SPECIMEN [facility] Address: [address] [place] [address] Performed By: #### 2 4323-8, 56089-8, 2777-1, 3016-3 #### [facility] CLIA [id number] [address] [place] [address] [place] RBC (Bld) [#/Vol] 3.48 10*6/uL Low 3.90-5.20 [place] Comment on above: Order Comment: Speci men Type: BLOOD SPECIMEN [facility] Address: [address] [place], [place] [address] Performed By: #### 2 4323-8, 85965-6, 2777-1, 3016-3 #### [facility] CLIA [id number] [address] [place] [address] [place] WBC (Bld) [#/Vol] 8.49 10*3/uL Normal 3.70-11.00 [place] Comment on above: Order Comment: Speci men Type: BLOOD SPECIMEN [facility] Address: [address] [place], [place] [address] Performed By: #### 2 4323-8, 05126-7, 2777-1, 3016-3 #### [facility] CLIA [id number] [address] [place], [place] [address] [place] CONSULTon 12-02-2023 CONSULT HNO ID: [id number] Author: BRISA MICHAEL MD Service: General Internal [...] the ED prompting her to present to [facility] ED. Additional pertinent results included BUN 21 and creatinine 0.90. In the ED, she was given 1 L NS bolus. She underwent CT brain which showed pneumocephalus so she was transferred to [facility] and admitted under neurosurgery. Upon arrival to [facility], she underwent repeat labs which showed [...] Date APPENDECTOMY HYSTERECTOMY HX partial- done in [place] LAMINECTOMY W/O FFD 07/12 VERT SEG LUMBAR [...] tab(s) ( (more content not included)... Normal [facility] CT BRAIN WO IVCONon 05-24-[address] BRAIN WO IVCON * * *Final Report* * * DATE OF EXAM: Dec 02 2023 3:57PM [facility] [address]504 - CT BRAIN WO IVCON / [...] No acute intracranial infarction, hemorrhage, or pneumocephalus. Supervising Producer: PSCItalo Transcribe Date/Time: Dec 02 2023 3:58P Dictated by : OCTAVIO SAMSON MD This examination was interpreted and the report reviewed and electronically signed by: LANA HOPKINS MD on Dec 02 2023 4:05PM EST [id number] Normal [facility] Comprehensive metabolic 2000 panelon 12-02-2023 Albumin [Mass/Vol] 4.1 g/dL Normal 3.9-4.[address] [facility] Comment on above: Order Comment: Speci men Type: BLOOD SPECIMEN Ordering Facility: [facility] Address: [address] [place] [address] Performed By: #### 2 4323-8, 98895-3, 2777-1, 3016-3 #### [facility] CLIA [id number] [address] [place] [address] [place] ALP [Catalytic activity/Vol] 104 U/L Normal 34-123 [facility] Comment on above: Order Comment: Speci men Type: BLOOD SPECIMEN Ordering Facility: [facility] Address: [address] [place] [address] Performed By: #### 2 4323-8, 14712-8, 2777-1, 3016-3 #### [facility] CLIA [id number] [address] [place] [address] [place] ALT [Catalytic activity/Vol] 24 U/L Normal 7-38 [facility] Comment on above: Order Comment: Speci men Type: BLOOD SPECIMEN Ordering Facility: [facility] Address: [address] [place] [address] Performed By: #### 2 4323-8, 28438-9, 2777-1, 3016-3 #### [facility] CLIA [id number] [address] [place], [place] [address] [place] Anion gap [Moles/Vol] 11 mmol/L Normal 9-18 [facility] Comment on above: Order Comment: Speci men Type: BLOOD SPECIMEN Ordering Facility: [facility] Address: [address] [place] [address] Performed By: #### 2 4323-8, 37269-9, 2777-1, 3016-3 #### [facility] CLIA [id number] [address] [place], [place] [address] [place] AST [Catalytic activity/Vol] 28 U/L Normal 13-35 [facility] Comment on above: Order Comment: Speci men Type: BLOOD SPECIMEN Ordering Facility: [facility] Address: [address] [place] [address] Result Comment: Resu lts may be falsely increased due to interference from hemolysis. Suggest reorder as clinically indicated. Performed By: #### 2 4323-8, 58798-7, 2776-1, 6-3 #### [facility] CLIA [id number] [address] [place] [address] [place] Bilirubin [Mass/Vol] 0.4 mg/dL Normal 0.2-1.3 [facility] Comment on above: Order Comment: Speci men Type: BLOOD SPECIMEN Ordering Facility: [facility] Address: [address] [place] [address] Performed By: #### 2 4323-8, , 2776-, 3016-3 #### [facility] CLIA [id number] [address] [place] [address] [place] Calcium [Mass/Vol] 9.2 mg/dL Normal 8.5-10.[address] [facility] Comment on above: Order Comment: Speci men Type: BLOOD SPECIMEN Ordering Facility: [facility] Address: [address] [place] [address] Performed By: #### 2 4323-8, , 2776-, 3016-3 #### [facility] CLIA [id number] [address] [place] [address] [place] Chloride [Moles/Vol] 95 mmol/L Low 97-105 [facility] Comment on above: Order Comment: Speci men Type: BLOOD SPECIMEN Ordering Facility: [facility] Address: [address] [place] [address] Performed By: #### 2 4323-8, , 2776-, 3016-3 #### [facility] CLIA [id number] [address] [place] [address] [place] CO2 [Moles/Vol] 22 mmol/L Normal 22-30 [facility] Comment on above: Order Comment: Speci men Type: BLOOD SPECIMEN Ordering Facility: [facility] Address: [address] [place] [address] Performed By: #### 2 4323-8, 48536-9, 2776-1, 6-3 #### [facility] CLIA [id number] [address] [place] [address] [place] Creatinine [Mass/Vol] 0.61 mg/dL Normal 0.58-0.96 [facility] Comment on above: Order Comment: Rajiv francis Type: BLOOD SPECIMEN Ordering Facility: [facility] Address: [address] [place] [address] Performed By: #### 2 4323-8, , 2776-, 3015-3 #### [facility] CLIA [id number] [address] [place] [address] [place] Creatinine and Glomerular filtration rate.predicted panel (S/P/Bld) 91 mL/min/1.73m??? Normal >=60 [facility] Comment on above: Order Comment: Rajiv francis Type: BLOOD SPECIMEN Ordering Facility: [facility] Address: [address] [place] [address] Result Comment: Audra mated Glomerular Filtration Rate [...] actual GFR. Performed By: #### 2 4323-8, 56712-7, 2776-, 3015-3 #### [facility] CLIA [id number] [address] [place] [address] [place] Glucose [Mass/Vol] 121 mg/dL High 74-[address] [facility] Comment on above: Order Comment: Rajiv francis Type: BLOOD SPECIMEN Ordering Facility: [facility] Address: [address] [place] [address] Result Comment: The [place] [employer] (ADA) provides guidance for cutoff [...] Standards of Medical Care in Diabetes 2016, [place] [employer]. Diabetes Care. 2016.39(Suppl 1). Performed By: #### 2 4323-8, 96235-7, 2777-1, 3016-3 #### [facility] CLIA [id number] [address] [place] [address] [place] Potassium [Moles/Vol] 4.5 mmol/L Normal 3.7-5.1 [facility] Comment on above: Order Comment: Specera francis Type: BLOOD SPECIMEN Ordering Facility: [facility] Address: [address] [place] [address] Performed By: #### 2 4323-8, 71171-7, 2777-1, 6-3 #### [facility] CLIA [id number] [address] [place] [address] [place] Protein [Mass/Vol] 6.9 g/dL Normal 6.3-8.[address] [facility] Comment on above: Order Comment: Rajiv francis Type: BLOOD SPECIMEN Ordering Facility: [facility] Address: [address] [place] [address] Performed By: #### 2 4323-8, 49215-9, 2777-1, 3016-3 #### [facility] CLIA [id number] [address] [place] [address] [place] Sodium [Moles/Vol] 128 mmol/L Low 136-[address] [facility] Comment on above: Order Comment: Rehanai men Type: BLOOD SPECIMEN Ordering Facility: [facility] Address: [address] [place] [address] Performed By: #### 2 4323-8, 24402-2, 2777-1, 3016-3 #### [facility] CLIA [id number] [address] [place] [address] [place] Urea nitrogen [Mass/Vol] 11 mg/dL Normal 7-21 [facility] Comment on above: Order Comment: Speci men Type: BLOOD SPECIMEN Ordering Facility: [facility] Address: [address] [place] [address] Performed By: #### 2 4323-8, 85076-4, 2777-1, 3016-3 #### [facility] CLIA [id number] [address] [place] [address] [place] Cortis SerPl-mCncon 12-02-19 Cortisol [Mass/Vol] 5.9 ug/dL Normal 4.8-19.5 [place] Comment on above: Order Comment: Speci men Type: BLOOD SPECIMENOrdering Facility: [facility] Address: [address] [place] [address] Result Comment: Prov ided reference range is from 6-10 AM sample collection time. Cortisol Reference Range: 6-10 AM = 4.8-19.5 ug/dL, 4-8 PM = 2.5-11.9 ug/dL Performed By: #### 2 143-6, 90334-5 ####[facility] [id number] [place] [address] [place] ECG COMPLETEon 12-02-2023 ECG COMPLETE Ventricular Rate : 5 7 BPM Atrial Rate : 57 BPM P-R Interval : 190 ms QRS Duration : 94 ms Q-T Interval : 424 ms QTC Calculation(Bazett) : 412 ms Calculated P [place] : 61 degrees Calculated R [place] : -23 degrees Calculated T [place] : 17 degrees SINUS BRADYCARDIA WITH OCCASIONAL PREMATURE VENTRICULAR COMPLEXES MINIMAL VOLTAGE CRITERIA FOR LVH, MAY BE NORMAL VARIANT BORDERLINE ECG Confirmed by KALA CORONADO MD ([id number]) on 12/07/2023 3:00:23 PM NAME : JERRELL STRICKLAND PID : [id number] : 1945 Gender : Female Race : ORD : [id number] Procedure Date : Dec 02 2023 13:11:28 [...] CHARLI JACK Acquired by : BRAD LOCKETT [facility] HISTORY PHYSICALon HISTORY PHYSICAL HNO ID: [id number] Author: SHAYY ALCARAZ MD Service: Neurosurgery Author [...] repair, 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 Transferred to [facility] Main NS on 12/02/23 after OSH [...] Date APPENDECTOMY HYSTERECTOMY HX partial- done in [place] LAMINECTOMY W/O FFD 07/12 VERT SEG LUMBAR [...] good oral careDisp: Rfl: gabapentin 300 mg Tl63Mtmg 300 mg by mouth daily at bedtime.Disp: [...] mg INTRAV (more content not included)... Normal [facility] Magnesium SerPl-mCncon 12-01 Magnesium [Mass/Vol] 1.7 mg/dL Normal 1.7-2.3 [facility] Comment on above: Order Comment: Rajiv francis Type: BLOOD SPECIMEN Ordering Facility: [facility] Address: [address] [place] [address] Performed By: #### 2 4323-8, 70244-6, 2777-1, 3016-3 #### [facility] CLIA [id number] [address] [place], [place] [address] [address] [place] PT panel Coag (PPP)on 2023 INR Coag (PPP) [Relative time] 1.1 {INR} Normal 0.9-1.3 [facility] Comment on above: Order Comment: Rajiv francis Type: BLOOD SPECIMENOrdering Facility: [facility] Address: [address] [place] [address] Result Comment: Lin min K Antagonist (VKA) Therapeutic Range: INR 2 to 3 (Target INR of 2.5) Note: For patients treated with VKA drugs, such as warfarin, the [place] [employer] 2012 Guideline recommends [...] Chest 2012, 141:7S-47S Judah ISAAC et al. [facility] 2017, 70: 252-289 Performed By: #### 3 4528-0, 36102-6 ####[facility] [id number] [place] [address] [place] PT Coag (PPP) [Time] 11.4 s Normal 9.7-13.0 [facility] Comment on above: Order Comment: Speci men Type: BLOOD SPECIMENOrdering Facility: [facility] Address: [address] [place] [address] Performed By: #### 3 4528-0, 17090-1 ####[facility] [id number] [place] [address] [place] Phosphate SerPl-mCncon 12-01 Phosphate [Mass/Vol] 3.0 mg/dL Normal 2.7-4.8 [facility] Comment on above: Order Comment: Speci men Type: BLOOD SPECIMEN Ordering [facility] Address: [address] [place] [address] Performed By: #### 2 4323-8, 69272-4, 2777-1, 3016-3 #### [facility] CLIA [id number] [address] [place] [address] [place] STAPHYLOCOCCUS AUREUS AND MR SA SCREEN, PCR, NASALon 12-02-2023 S. aureus and MRSA panel PRIYANKA+probe (Nose) Not detected Normal Not Detected [facility] Comment on above: Order Comment: Speci men Type: SWAB Ordering Facility: [facility] Address: [address] [place] [address] Performed By: #### S APCR #### [facility] CLIA [id number] [address] [place] [address] [place] TSH SerPl-aCncon 12-02-2023 TSH Qn 1.520 m[IU]/L Normal 0.270-4.20 0 [facility] Comment on above: Order Comment: Speci men Type: BLOOD SPECIMEN Ordering [facility] Address: [address] [place] [address] Performed By: #### 2 4323-8, 78811-3, 2777-1, 3016-3 #### [facility] CLIA [id number] [address] [place], [place] [address] [place] TYPE + SCREENon 12-02-2023 ABO O Normal [facility] Comment on above: Order Comment: Speci men Type: BLOOD SPECIMEN Ordering Facility[facility] Address: [address] [place] [address] Performed By: #### 2 4323-8, 79366-3, 2776-1, 6-3 #### [facility] CLIA [id number] [address] [place], [place] [address] [place] HISTORICAL AB SCR STATUS Negative Normal [facility] Comment on above: Order Comment: Speci men Type: BLOOD SPECIMEN Ordering [facility] Address: [address] [place] [address] Performed By: #### 2 4323-8, 88429-7, 2776-1, 3015-3 #### [facility] CLIA [id number] [address] [place], [place] [address] [place] Rh Nom (Bld) Positive Normal [facility] Comment on above: Order Comment: Speci men Type: BLOOD SPECIMEN Ordering Facility[facility] Address: [address] [place] [address] Performed By: #### 2 4323-8, 41738-0, 277-1, 3015-3 #### [facility] CLIA [id number] [address] [place], [place] [address] [place] TYPE AND SCREEN EXPIRATION 12/05/2023 23:59 Normal [facility] Comment on above: Order Comment: Speci men Type: BLOOD SPECIMEN Order[facility] Address: [address] [place] [address] Performed By: #### 2 4323-8, 31055-8, 277-1, 6-3 #### [facility] CLIA [id number] [address] [place], [place] [address] [place] URINALYSIS, REFLEX MICROSCOP ICon 12-02-2023 Bilirubin Ql (U) Negative Normal Negative [facility] Comment on above: Order Comment: Speci men Type: URINE SPECIMENOrdering Facility: [facility] Address: [address] [place] [address] Performed By: #### L [id number] ####[facility] [id number] [place] [address] [place] Clarity (Unsp spec) Clear Normal Clear [place] Comment on above: Order Comment: Speci men Type: URINE SPECIMENOrdering Facility: [facility] Address: [address] [place] [address] Performed By: #### L [id number] ####[facility] [id number] [place] [address] [place] Color (U) Yellow Normal Yellow [facility] Comment on above: Order Comment: Speci men Type: URINE SPECIMENOrdering Facility: [facility] Address: [address] [place] [address] Performed By: #### L [id number] ####[facility] [id number] [place] [address] [place] Glucose Test strip (U) [Mass/Vol] Negative Normal Negative [facility] Comment on above: Order Comment: Speci men Type: URINE SPECIMENOrdering Facility: [facility] Address: [address] [place] [address] Performed By: #### L [id number] ####[facility] [id number] [place] [address] [place] Hemoglobin Ql (U) Negative Normal Negative [facility] Comment on above: Order Comment: Speci men Type: URINE SPECIMENOrdering Facility: [facility] Address: [address] [place] [address] Performed By: #### L [id number] ####[facility] [id number] [place] [address] [place] Ketones Ql (U) Negative Normal Negative [facility] Comment on above: Order Comment: Speci men Type: URINE SPECIMENOrdering Facility: [facility] Address: [address] [place] [address] Performed By: #### L [id number] ####[facility] [id number] [place] [address] [place] Leukocyte esterase Test strip Ql (U) Negative Normal Negative [facility] Comment on above: Order Comment: Speci men Type: URINE SPECIMENOrdering Facility: [facility] Address: [address] [place] [address] Performed By: #### L [id number] ####[facility] [id number] [place] [address] [place] Nitrite Ql (U) Negative Normal Negative [facility] Comment on above: Order Comment: Speci men Type: URINE SPECIMENOrdering Facility: [facility] Address: [address] [place] [address] Performed By: #### L [id number] ####[facility] [id number] [place] [address] [place] pH (U) 8.0 [pH] Normal <8.5 [facility] Comment on above: Order Comment: Speci men Type: URINE SPECIMENOrdering Facility: [facility] Address: [address] [place] [address] Performed By: #### L [id number] ####[facility] [id number] [place] [address] [place] Protein (U) [Mass/Vol] Negative Normal Negative [facility] Comment on above: Order Comment: Speci men Type: URINE SPECIMENOrdering Facility: [facility] Address: [address] [place] [address] Performed By: #### L [id number] ####[facility] [id number] [place] [address] [place] Specific gravity (U) [Rel density] 1.011 Normal 1.005-1.03 0 [facility] Comment on above: Order Comment: Speci men Type: URINE SPECIMENOrdering Facility: [facility] Address: [address] [place] [address] Performed By: #### L [id number] ####[facility] [id number] [place] [address] [place] Urobilinogen Ql (U) 0.2 EU/dL Normal 0.2-1.0 EU/dL [facility] Comment on above: Order Comment: Speci men Type: URINE SPECIMENOrdering Facility: [facility] Address: [address] [place] [address] Performed By: #### L [id number] ####[facility] [id number] [place] [address] [place] aPTT PPPon 12-02-2023 aPTT Coag (PPP) [Time] 29.1 s Normal 23.0-32.4 Cl [facility] Comment on above: Order Comment: Speci men Type: BLOOD SPECIMENOrdering Facility: [facility] Address: [address] [place] [address] Performed By: #### 3 4528-0, 63200-5 ####[facility] [id number] [place] [address] [place] CNTHERAPYon 11-18-2023 CNTHERAPY OT/PT/Speech Visit (OT[place]OCA) -- BEICHLER,JERRELL D ([id number]) 1945 F Date Time Provider Department 11/18/23 3:30 PM HERMELINDA BAKER MAGDY Date Time Provider Department Center 11/18/2023 3:30 PM [id number][facility] Reason for Visit: OT Discharge [750] [...] mouth daily at bedtime. Letter Text Normal [facility] - Drug toxicology Ordered By: Harshad Camacho on 11-15-2023 Amphetamines Ql (U) Negative <1000 ng/mL [facility] Benzodiazepines Ql (U) Negative < 200 ng/mL [facility] Cannabinoids Screen Ql (U) Negative < 50 ng/mL [facility] Cocaine Ql (U) Negative < 300 ng/mL [facility] Opiates Ql (U) Positive < 300 ng/mL [facility] No Panel InformationOrdered By: Harshad Camacho on 11-15-2023 MDMA (Ecstasy) Screen Negative < 500 ng/mL [facility] Urine Barbiturates Screen Negative < 200 ng/mL [facility] Urine Drug Screen Comment [facility] Comment on above: CONFIRMATORY TESTING FOR ALL [...] TESTING MUST BE ORDERED SEPARATELY. USE TESTMNEMONIC: AZCA Urine Methadone Screen Negative < 300 ng/mL [facility] Urine phencyclidine (PCP) de tectionOrdered By: Harshad Camacho on 11-15-2023 Phencyclidine Ql (U) Negative < 25 ng/mL [facility] CNPNon 11-10-2023 CNPN Telephone ([facility]) -- JERRELL STRICKLAND ([id number]) 1945 F Date Time Provider Department 11/10/23 [...] Encounter Status:Closed by HERMELINDA BAKER on 11/10/23 [facility] [id number] 11-06-2023 [id number] O ID: [id number] Author: HERMELINDA BAKER OT/L Service: ? Author Type: Occupational Therapist Type: [id number] Filed: 11/06/2023 13:42 Note Text: [facility] Occupational Therapy Plan of Care Certification Patient Name: Jerrell Strickland : 1945 CCF #: [id number] Date: 10/28/2023 To: Dionne Magaña MD From Therapist: JOSE DANIEL Feng RE: Patient Certification/ Recertification Your review, approval and electronic signature are required in order to comply with Payor: [facility] MEDICARE ADVANTAGE / Plan: ID MEDICARE / Product Type: HMO / regulations. 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 2.Patient will complete functional mobility task with good safety awareness during behind the wheel assessment. Planned Interventions, Frequency, and Duration: Current Frequency: 1 visit Duration: 1 visit Total Number of Visits Planned: 1 Patient to be see for [employer] Route Deliverer rehab evaluation, Patient/Family/Caregiver Education PLAN FOR NEXT VISIT: behind the wheel assessment Patient demonstrates good understanding of plan of care and treatment. The above goals and plan of care were discussed and agreed upon by patient/family. For further details regarding this patient refer to the Occupational Therapy electronically documented visit dated 10/28/2023. Provider Attestation I have reviewed the treatment plan for Jerrell Madgi Strickland, CCF# [id number] for the period of 10/28/23 -- , established on 10/28/2023. Signature certifies the need for therapy services. [facility] CNTHERAPYon 10-28-2023 CNTHERAPY OT/PT/Speech Visit (OT[facility]OCA) -- MARCO AJERRELL ([id number]) 1945 F Date Time Provider Department 10/28/23 1:30 PM HERMELINDA BAKER [email or web address] Date Time Provider Department Center 10/28/2023 1:30 PM [id number], JULIE A [facility] N Reason for Visit: OT EVAL [...] once daily. -- Letter Text Letter Text [facility] Basophil percentageOrdered B y: Dionne Magaña on 10-03-2023 Bilirubin [Mass/Vol] 0.50 mg/dL 0.20-1.00 [facility] Comment on above: For patients on eltr ombopag therapy, use of [employer] [place] TBIL is not recommended. Chloride [Moles/Vol] 104 mmol/L 98-107 [facility] [facility] Glucose [Mass/Vol] 98 mg/dL 74-106 [facility] Potassium [Moles/Vol] 4.6 mmol/L 3.5-5.1 [facility] Protein [Mass/Vol] 7.2 g/dL 6.4-8.2 [facility] Sodium [Moles/Vol] 134 mmol/L 136-145 [facility] Laboratory - Chemistry and C hemistry - challengeOrdered By: Dionne Magaña on 10-03-2023 Albumin/Globulin [Mass ratio] 1.1 {ratio} 0.9-2.4 [facility] ALP [Catalytic activity/Vol] 94 U/L 45-117 [facility] ALT [Catalytic activity/Vol] 25 U/L 13-56 [facility] CO2 [Moles/Vol] 25.0 mmol/L 21.0-32.0 [facility] Globulin (S) [Mass/Vol] 3.5 g/dL 2.2-4.2 [facility] Urea nitrogen/Creatinine [Mass ratio] 19.1 mg/mg 10-20 [facility] No Panel InformationOrdered By: Dionne Magaña on 10-03-2023 Anti-Nuclear Antibody Screen Positive Negative [facility] Comment on above: Performed at: [employer] [address] [id number] Director: Ciaran Myers PhD, Phone: [phone] [employer] B Antibody <0.2 AI 0.0-0.9 [facility] Estimated GFR (MDRD) Amer 74 mL/min >60 [facility] Comment on above: GFR Calc Estimated GFR (MDRD) Non-Af Amer 61 mL/min >60 [facility] Comment on above: Non- GFR Calc SEBASTIEN-1 Antibody <0.2 AI 0.0-0.9 [facility] DECORATING EQUIPMENT SETTER Antibody 6.4 AI 0.0-0.9 [facility] SM Antibody <0.2 AI 0.0-0.9 [facility] SS-A/Ro IgG Antibody < 0.2 AI 0.0-0.9 [facility] SS-B/La IgG Antibody < 0.2 AI 0.0-0.9 [facility] Serum DNA double strand anti body assay (units/volume)Ordered By: Dionne Magaña on 10-03-2023 DNA double strand Ab Qn (S) [IU]/mL 0-9 [facility] Comment on above: Negative <5 Equivoca l 5 - 9 Positive >9 Serum Scl-70 antibody assay (units/volume)Ordered By: Dionne Magaña on 10-03-2023 SCL-70 extractable nuclear Ab Qn (S) <0.2 AI 0.0-0.9 [facility] Serum or plasma calcium jd urement (mass/volume)Ordered By: Dionne Magaña on 10-03-2023 Calcium [Mass/Vol] 9.5 mg/dL 8.5-10.1 [facility] Serum or plasma creatinine m easurement (mass/volume)Ordered By: Dionne Magaña on 10-03-2023 Creatinine [Mass/Vol] 0.94 mg/dL 0.55-1.02 [facility] Comment on above: The validity of the calculated GFR & GFRAA in patients over 70 years has not been determined. Clinical correlation is essential. Serum or plasma thyroid stim ulating hormone (TSH) measurement (units/volume)Ordered By: Dionne Magaña on 10-03-2023 TSH Qn 0.56 uIU/mL 0.358-3.74 [facility] Serum or plasma triiodothyro nine measurement by immunoassay (mass/volume)Ordered By: Dionne Magaña on 10-03-2023 T3 IA [Mass/Vol] 1.02 ng/mL 0.6-1.81 [facility] Serum or plasma urea nitroge n measurement (mass/volume)Ordered By: Dionne Magaña on 10-03-2023 Urea nitrogen [Mass/Vol] 18 mg/dL 7-18 [facility] Thin prep Papanicolaou smear with manual screeningOrdered By: Dionne Magaña on 10-03-2023 Thin prep Papanicolaou smear with manual screening 3.7 g/dL 3.2-5.0 [facility] Thin prep Papanicolaou smear with manual screening 19 U/L 15-37 [facility] Thin prep Papanicolaou smear with manual screening 5 5-15 [facility] Thin prep Papanicolaou smear with manual screening 1.07 ng/dL 0.76-1.46 [facility] CT SPINE CERVICAL W/O CONTRA STon 09-17-2023 [...] CHANGES: There are multilevel degenerative changes, with [id number] 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 Multilevel neural [...] 09/17/2023 5:51:29 PM Ordering Provider: REBECCA GAMEZ [facility] [place] SPINE THORACIC W/O GRISELDAA Cayla 09-17-2023 [...] 09/17/2023 6:18:18 PM Ordering Provider: REBECCA GAMEZ [facility]) CT THORAX W/O CONTRASTon CT THORAX W/O [...] 09/17/2023 6:18:46 PM Ordering Provider: REBECCA GAMEZ [facility] [place] XR SHOULDER MINIMUM 2 VIEWS LEFTon 09-17-2023 [...] 09/17/2023 5:59:01 PM Ordering Provider: REBECCA GAMEZ [facility]) XR SHOULDER MINIMUM 2 VIEWS RIGHTon 09-17-2023 [...] 09/17/2023 6:19:53 PM Ordering Provider: REBECCA GAMEZ [facility]) Basophil percentageOrdered B y: Brad Lal on 08-22-2023 Bilirubin [Mass/Vol] 0.30 mg/dL 0.20-1.00 [facility] Comment on above: For patients on eltr ombopag therapy, use of Dimension [place] TBIL is not recommended. Chloride [Moles/Vol] 107 mmol/L 98-107 [facility] Glucose [Mass/Vol] 140 mg/dL 74-106 [facility] Comment on above: Fasting Glucose resu lt greater than or equal to 126 mg/dL suggests DIABETES MELLITUS per A.D.A. criteria. Potassium [Moles/Vol] 4.5 mmol/L 3.5-5.1 [facility] Protein [Mass/Vol] 6.8 g/dL 6.4-8.2 [facility] Sodium [Moles/Vol] 141 mmol/L 136-145 [facility] Direct bilirubinOrdered By: Brad Lal on 08-22-2023 Bilirubin.direct [Mass/Vol] 0.10 mg/dL 0.00-0.30 [facility] Laboratory - Chemistry and C hemistry - challengeOrdered By: Brad Lal on 08-22-2023 Albumin/Globulin [Mass ratio] 1.1 {ratio} 0.9-2.4 [facility] ALP [Catalytic activity/Vol] 103 U/L 45-117 [facility] ALT [Catalytic activity/Vol] 32 U/L 13-56 [facility] CO2 [Moles/Vol] 27.0 mmol/L 21.0-32.0 [facility] Globulin (S) [Mass/Vol] 3.3 g/dL 2.2-4.2 [facility] Urea nitrogen/Creatinine [Mass ratio] 17.0 mg/mg 10-20 [facility] No Panel InformationOrdered By: Brad Lal on 08-22-2023 Estimated GFR (MDRD) Amer 60 mL/min >60 [facility] Comment on above: GFR Calc Estimated GFR (MDRD) Non-Af Amer 50 mL/min >60 [facility] Comment on above: Non- GFR Calc Serum or plasma calcium jd urement (mass/volume)Ordered By: Brad Lal on 08-22-2023 Calcium [Mass/Vol] 9.7 mg/dL 8.5-10.1 [facility] Serum or plasma creatinine m easurement (mass/volume)Ordered By: Brad Lal on 08-22-2023 Creatinine [Mass/Vol] 1.12 mg/dL 0.55-1.02 [facility] Comment on above: The validity of the calculated GFR & GFRAA in patients over 70 years has not been determined. Clinical correlation is essential. Serum or plasma urea nitroge n measurement (mass/volume)Ordered By: Brad Lal on 08-22-2023 Urea nitrogen [Mass/Vol] 19 mg/dL 7-18 [facility] Thin prep Papanicolaou smear with manual screeningOrdered By: Brad Lal on 08-22-2023 Thin prep Papanicolaou smear with manual screening 3.5 g/dL 3.2-5.0 [facility] Thin prep Papanicolaou smear with manual screening 23 U/L 15-37 [facility] Thin prep Papanicolaou smear with manual screening 7 5-15 [facility] Bacteria identified Cx Nom ( Wound)Ordered By: Brad Lal on 08-01-2023 Wound Culture Pseudomonas aeruginosa [facility] Wound Culture Pseudomonas aeruginosa [facility] Gram stain for investigation of transfusion reactionOrdered By: Brad Lal on 08-01-2023 Microscopic observation Gram stain Nom (Unsp spec) [facility] Microscopic observation Gram stain Nom (Unsp spec) [facility] CNOVon 07-27-2023 CNOV Office Visit ([facility]WSTR ) -- JERRELL STRICKLAND ([id number]) 1945 F Date Time Provider Department 07/27/23 3:30 PM J LUIS SANCHES [facility] During your visit today, we recorded the following information about you: Temperature Pulse Respiration Blood pressure 96.8 degrees 80/minute 21/minute 134/76 Weight 72.7 kg J Luis Sanches APRN.DIVING [employer]ER 07/27/2023 3:34 PM Signed Subjective Came in with complaints of sore right outer calf. Patient says there is some redness around it. Patient's not sure how long she has had it. Patient denies any numbness tingling loss of feeling fever chills or nausea. The history is provided by the patient. No tail trimmer was used. Review of Systems Constitutional: Negative. [...] Date APPENDECTOMY HYSTERECTOMY HX partial- done in [place] LAMINECTOMY W/O FFD 07/12 VERT SEG LUMBAR [...] with this care plan J Luis Sanches APRN.DIVING [employer]ER Allergies As of Date: 07/27/2023 Noted Allergy [...] mouth ev (more content not included)... Normal [facility] XR RIBS 2 VIEWS RIGHT/PA DENITA ST(AO)on [...] 07/25/2023 8:22:21 AM Ordering Provider: DIONNE Martin [facility] [place] [facility] 07-18-2023 [facility] Telephone (UCTR) -- JERRELL STRICKLAND ([id number]) 1945 F Date Time Provider Department 07/18/23 ALEX LAW [facility] During your visit today, we recorded the [...] let us know or return for reevaluation.Sarah Bradfodr LPN Allergies As of Date: 07/18/2023 Noted [...] Status:Closed by SARAH BRADFORD on 07/19/23 Normal [facility] Bacteria Wnd Culton 07-15-19 24 Bacteria identified [...] , Intermediate >.5 , Resistant >1 Abnormal [facility] Comment on above: Performed By: #### 2 4323-8, 87669-4, 2777-1, 3016-3 #### [facility] CLIA [id number] [address] [place] CNOVon 07-15-2023 CNOV Office Visit ([facility]WSTR ) -- JERRELL STRICKLAND ([id number]) 1945 F Date Time Provider Department 07/15/23 9:15 AM FRANCOISE VALENTINO [facility] During your visit today, we recorded the following information about you: Temperature Pulse Respiration Blood pressure 97.1 degrees 87/minute 18/minute 135/72 Weight 71.7 kg Francoise Valentino PA 07/15/2023 9:26 AM Signed This note was created using [email or web address]. Subjective Jerrell Strickland is a 78 year [...] Date APPENDECTOMY HYSTERECTOMY HX partial- done in [place] LAMINECTOMY W/O FFD 07/12 VERT SEG LUMBAR [...] -Advised if (more content not included)... Normal [facility] Laboratory - Chemistry and C hemistry - challengeOrdered By: Dayday Hairston on 07-13-2023 T4 [Mass/Vol] 14.8 ug/dL 4.8-13.9 [facility] No Panel InformationOrdered By: Dayday Hairston on 07-13-2023 Reverse Triiodothyronine (T3) 31.7 ng/dL 9.2-24.1 [facility] Comment on above: Performed at: [address] [id number] Director: Jensen Santiago MD, Phone: [phone] Thyroid Stimulating Hormone (TSH) 0.55 uIU/mL 0.358-3.74 [facility] Absolute lymphocyte countOrd ered By: Dayday Hairston on 06-24-2023 Lymphocytes Auto (Unsp spec) [#/Vol] 2.17 10*3/uL 0.83-4.51 [facility] Basophil percentageOrdered B y: Dayday Hairston on 06-24-2023 Basophils/100 WBC (Bld) 1.8 % 0-1 [facility] Bilirubin [Mass/Vol] 0.50 mg/dL 0.20-1.00 [facility] Comment on above: For patients on eltr ombopag therapy, use of Dimension [place] TBIL is not recommended. Chloride [Moles/Vol] 104 mmol/L 98-107 [facility] Eosinophils/100 WBC (Bld) 5.9 % 0-5 [facility] Glucose [Mass/Vol] 100 mg/dL 74-106 [facility] Comment on above: Fasting Glucose resu lt from 100 to 125 mg/dL suggests IMPAIRED HOMEOSTASIS per A.D.A. criteria. Neutrophils (Bld) [#/Vol] 5.5 10*3/uL 2.0-7.7 [facility] Neutrophils/100 WBC (Bld) 56.3 % 47-70 [facility] Potassium [Moles/Vol] 4.2 mmol/L 3.5-5.1 [facility] Protein [Mass/Vol] 7.2 g/dL 6.4-8.2 [facility] Sodium [Moles/Vol] 138 mmol/L 136-145 [facility] WBC (Bld) [#/Vol] 9.8 10*3/uL 4.4-11.0 [facility] Blood erythrocytes count (nu mber/volume)Ordered By: Dayday Hairston on 06-24-2023 RBC (Bld) [#/Vol] 3.79 10*6/uL 4.2-5.4 [facility] Blood hemoglobin measurement (mass/volume)Ordered By: Dayday Hairston on 06-24-2023 Hemoglobin (Bld) [Mass/Vol] 12.7 g/dL 12.0-15.0 [facility] Blood lymphocytes/100 leukoc ytesOrdered By: Dayday Hairston on 06-24-2023 Lymphocytes/100 WBC (Bld) 22.1 % 19-41 [facility] Blood monocytes/100 leukocyt esOrdered By: Dayday Hairston on 06-24-2023 Monocytes/100 WBC (Bld) 13.3 % 0-10 [facility] Blood platelet mean volumeOr dered By: Dayday Hairston on 06-24-2023 Platelet mean volume (Bld) [Entitic vol] 11.6 fL 6.2-12.0 [facility] Determination of erythrocyte mean corpuscular volume (MCV)Ordered By: Dayday Hairston on 06-24-2023 MCV (RBC) [Entitic vol] 104.5 fL 81-99 [facility] Erythrocyte sedimentation ra teOrdered By: Dayday Hairston on 06-24-2023 ESR (Bld) [Velocity] 13 mm/h 0-30 [facility] Hematocrit Auto (Bld) [Volum e fraction]Ordered By: Dayday Hairston on 06-24-2023 Hematocrit (Bld) [Volume fraction] 39.6 % 37-47 [facility] Laboratory - Chemistry and C hemistry - challengeOrdered By: Dayday Hairston on 06-24-2023 ALP [Catalytic activity/Vol] 80 U/L 45-117 [facility] ALT [Catalytic activity/Vol] 23 U/L 13-56 [facility] CO2 [Moles/Vol] 30.0 mmol/L 21.0-32.0 [facility] Globulin (S) [Mass/Vol] 3.9 g/dL 2.2-4.2 [facility] Urea nitrogen/Creatinine [Mass ratio] 21.8 mg/mg 10-20 [facility] Laboratory - Hematology and Cell countsOrdered By: Dayday Hairston on 06-24-2023 Erythrocyte distribution width (RBC) [Entitic vol] 49.1 fL 35.1-43.9 [facility] Erythrocyte distribution width (RBC) [Ratio] 12.6 % 11.6-14.6 [facility] Immature granulocytes/100 WBC (Bld) 0.600 % 0.0-0.9 [facility] Comment on above: IG% - Immature Granu locytes (promyelocytes, myelocytes and metamyelocytes) > 1% indicates that a LEFT SHIFT is Present. MCH (RBC) [Entitic mass] 33.5 pg 27.0-32.0 [facility] Nucleated RBC/100 WBC (Bld) [Ratio] 0 % 0-5 [facility] MCHC Auto (RBC) [Mass/Vol]Or dered By: Dayday Hairston on 06-24-2023 MCHC (RBC) [Mass/Vol] 32.1 g/dL 32-36 [facility] No Panel InformationOrdered By: Dayday Hairston on 06-24-2023 Estimated GFR (MDRD) Amer 76 mL/min >60 [facility] Comment on above: GFR Calc Estimated GFR (MDRD) Non-Af Amer 63 mL/min >60 [facility] Comment on above: Non- GFR Calc Thyroid Stimulating Hormone (TSH) 0.33 uIU/mL 0.358-3.74 [facility] Platelets bldOrdered By: Alex Hairston on 06-24-2023 Platelets (Bld) [#/Vol] 331 10*3/uL 150-450 [facility] Serum or plasma albumin jd urement (mass/volume)Ordered By: Dayday Hairston on 06-24-2023 Albumin [Mass/Vol] 3.3 g/dL 3.2-5.0 [facility] Serum or plasma albumin/glob ulin mass ratioOrdered By: Dayday Hairston on 06-24-2023 Albumin/Globulin [Mass ratio] 0.8 {ratio} 0.9-2.4 [facility] Serum or plasma calcium jd urement (mass/volume)Ordered By: Dayday Hairston on 06-24-2023 Calcium [Mass/Vol] 9.7 mg/dL 8.5-10.1 [facility] Serum or plasma creatinine m easurement (mass/volume)Ordered By: Dayday Hairston on 06-24-2023 Creatinine [Mass/Vol] 0.92 mg/dL 0.55-1.02 [facility] Comment on above: The validity of the calculated GFR & GFRAA in patients over 70 years has not been determined. Clinical correlation is essential. Serum or plasma urea nitroge n measurement (mass/volume)Ordered By: Dayday Hairston on 06-24-2023 Urea nitrogen [Mass/Vol] 20 mg/dL 7-18 [facility] Thin prep Papanicolaou smear with manual screeningOrdered By: Dayday Hairston on 06-24-2023 Thin prep Papanicolaou smear with manual screening 20 U/L 15-37 [facility] Thin prep Papanicolaou smear with manual screening 4 5-15 [facility] Whole blood hemoglobin A1c/t otal hemoglobin ratio (mass fraction)Ordered By: Dayday Hairston on 06-24-2023 HbA1c (Bld) [Mass fraction] 5.7 % 3.8-5.6 [facility] Comment on above: Normal < 5.7 % Predi abetic 5.7 - 6.4 % Diabetic >or= 6.5 % Please note range changes. Nura 06-15-2023 HELADIO Telephone ([facility]) -- JERRELL STRICKLAND ([id number]) 1945 F Date Time Provider Department 06/15/23 [facility] During your visit today, we recorded [...] Status:Closed by SARAH BRADFORD LPN on 06/16/23 [facility] Nura 06-14-2023 [facility] Telephone ([facility]WSTR) -- JERRELL STRICKLAND ([id number]) 1945 F Date Time Provider Department 06/14/23 [facility] During your visit today, we recorded the following information about you: Suzanne Galeana LPN 06/14/2023 7:31 AM Signed ----- Message from Giovana Patterson APRN.DIVING FISHER sent at 06/14/2023 7:14 AM EST ----- [...] Date Reviewed: 06/13/2023 Reviewed by: Ai Moura APRN.DIVING FISHER - Fully Assessed Reason for Visit: Results [...] by MAYLIN MARTINEZ LPN on 06/14/23 Normal [facility] Bacteria Ur Culton 3 Bacteria identified Cx Nom (U) ORGANISM ID: 1 50,000-<100,000 CFU/ml Mixed microbiota No further workup. Mixed microbiota can be due to???urine???contamination with skin bacteria at time of collection or presence of a long-term urinary catheter. If a new culture is needed, please consider re-education of the patient on proper midstream collection technique or straight catheterization for???urine???collection. Normal [facility] Comment on above: Performed By: #### 2 4323-8, 83044-5, 2777-1, 3016-3 #### [facility] CLIA [id number] [address] [place] CNOVon 06-13-2023 CNOV Office Visit (UCWSTR ) -- JERRELL STRICKLAND ([id number]) 1945 F Date Time Provider Department 06/13/23 4:30 PM AI MOURA [facility] During your visit today, we recorded the following information about you: Temperature Pulse Respiration Blood pressure 99.3 degrees 89/minute 16/minute 137/67 Weight 74 kg Ai Moura APRN.DIVING [employer]ER 06/13/2023 5:23 PM Signed Subjective HPI HPI [...] Date APPENDECTOMY HYSTERECTOMY HX partial- done in [place] LAMINECTOMY W/O FFD 07/12 VERT SEG LUMBAR [...] Normal ra (more content not included)... Normal [facility] FLUABV + SARS-CoV-2 Pnl Resp PRIYANKA+prbon 06-13-2023 Influenza virus A and B RNA and SARS-CoV-2 (COVID-19) N gene panel PRIYANKA+probe (Resp) COVID 19 RESULT: Not detected The method used is RT-PCR or an equivalent NAAT method. Reference Range (the expected result in uninfected individuals): Not detected INFLUENZA A PCR: Not detected INFLUENZA B PCR: Not detected Normal [facility] Comment on above: Performed By: #### 2 4323-8, 16955-9, 2777-1, 3016-3 #### [facility] CLIA [id number] [address] [place] [address] [place] STREP A MOLECULAR (POC)on Procedural Control Valid [facility] Strep A (POCT) Negative Negative [facility] UA DIP, URINE (POC)on 2022 BILIRUBIN UA (POCT) Negative Negative [facility] CLARITY UA (POCT) Clear [facility] COLOR UA (POCT) Yellow [facility] GLUCOSE UA (POCT) Negative Negative mg/dL [facility] Hemoglobin Ql (U) Negative [facility] KETONE UA (POCT) Negative Negative mg/dL [facility] LEUKOCYTES UA (POCT) Trace Abnormal Negative [facility] NITRITE UA (POCT) Negative Negative [facility] PH UA (POCT) 5.5 4.5 - 8.0 [facility] Protein Ql (U) Negative Negative mg/dL [facility] SPECIFIC GRAVITY UA (POCT) 1.025 1.005 - 1.030 [facility] UROBILINOGEN UA (POCT) 0.2 E.U./dL Rayne l E.U./dL [facility] Absolute lymphocyte countOrd ered By: Tanner Hahn on 06-06-2023 Lymphocytes Auto (Unsp spec) [#/Vol] 1.82 10*3/uL 0.83-4.51 [facility] Basophil percentageOrdered B y: Tanner Hahn on 06-06-2023 Basophils/100 WBC (Bld) 0.8 % 0-1 [facility] Eosinophils/100 WBC (Bld) 3.1 % 0-5 [facility] Neutrophils (Bld) [#/Vol] 8.3 10*3/uL 2.0-7.7 [facility] Neutrophils/100 WBC (Bld) 69.6 % 47-70 [facility] WBC (Bld) [#/Vol] 11.9 10*3/uL 4.4-11.0 [facility] Blood erythrocytes count (nu mber/volume)Ordered By: Tanner Hahn on 06-06-2023 RBC (Bld) [#/Vol] 3.70 10*6/uL 4.2-5.4 [facility] Blood hemoglobin measurement (mass/volume)Ordered By: Tanner Hahn on 06-06-2023 Hemoglobin (Bld) [Mass/Vol] 12.8 g/dL 12.0-15.0 [facility] Blood lymphocytes/100 leukoc ytesOrdered By: Tanner Hahn on 06-06-2023 Lymphocytes/100 WBC (Bld) 15.3 % 19-41 [facility] Blood monocytes/100 leukocyt esOrdered By: Tanner Hahn on 06-06-2023 Monocytes/100 WBC (Bld) 10.3 % 0-10 [facility] Blood platelet mean volumeOr dered By: Tanner Hahn on 06-06-2023 Platelet mean volume (Bld) [Entitic vol] 11.0 fL 6.2-12.0 [facility] Determination of erythrocyte mean corpuscular volume (MCV)Ordered By: Tanner Hahn on 06-06-2023 MCV (RBC) [Entitic vol] 105.9 fL 81-99 [facility] Erythrocyte sedimentation ra teOrdered By: Tanner Hahn on 06-06-2023 ESR (Bld) [Velocity] 17 mm/h 0-30 [facility] Hematocrit Auto (Bld) [Volum e fraction]Ordered By: Tanner Hahn on 06-06-2023 Hematocrit (Bld) [Volume fraction] 39.2 % 37-47 [facility] Laboratory - Hematology and Cell countsOrdered By: Tanner Hahn on 06-06-2023 Erythrocyte distribution width (RBC) [Entitic vol] 51.8 fL 35.1-43.9 [facility] Erythrocyte distribution width (RBC) [Ratio] 13.2 % 11.6-14.6 [facility] Immature granulocytes/100 WBC (Bld) 0.900 % 0.0-0.9 [facility] Comment on above: IG% - Immature Granu locytes (promyelocytes, myelocytes and metamyelocytes) > 1% indicates that a LEFT SHIFT is Present. MCH (RBC) [Entitic mass] 34.6 pg 27.0-32.0 [facility] Nucleated RBC/100 WBC (Bld) [Ratio] 0 % 0-5 [facility] MCHC Auto (RBC) [Mass/Vol]Or dered By: Tanner Hahn on 06-06-2023 MCHC (RBC) [Mass/Vol] 32.7 g/dL 32-36 [facility] Platelets bldOrdered By: Tanner Hahn on 06-06-2023 Platelets (Bld) [#/Vol] 315 10*3/uL 150-450 [facility] Serum or plasma C reactive p rotein measurement (mass/volume)Ordered By: Tanner Hahn on 06-06-2023 CRP [Mass/Vol] 5.01 mg/L 0.0-3.0 [facility] Comment on above: C-Reactive Protein ( CRP) provides useful information for thediagnosis, therapy and monitoring of inflammatory processesand associated diseases. For the evaluation of Relative Riskfor Cardiovascular Disease, a High Sensitivity CRP (HSCRP)should be ordered. Laboratory - Drug toxicology Ordered By: Harshad Camacho on 05-26-2023 Amphetamines Ql (U) Negative <1000 ng/mL [facility] Benzodiazepines Ql (U) Negative < 200 ng/mL [facility] Cannabinoids Screen Ql (U) Negative < 50 ng/mL [facility] Cocaine Ql (U) Negative < 300 ng/mL [facility] Opiates Ql (U) Positive < 300 ng/mL [facility] No Panel InformationOrdered By: Harshad Camacho on 05-26-2023 MDMA (Ecstasy) Screen Negative < 500 ng/mL [facility] Miscellaneous Test See comment [facility] Comment on above: [id number] 6+OXYCODONE-B UND (ng/mL) DRUG RESULT SCREEN CUTOFF____ Amphetamines,Urine Negative ng/mL 1000 Amphetamine test includes Amphetamine and Methamphetamine.Barbiturates Negative ng/mL 200Benzodiazepines Negative ng/mL 200Cannabinoid Negative ng/mL 20Cocaine (Metab) Negative ng/mL 300Opiates Negative ng/mL 300 Opiates test includes Codeine, Morphine, Hydromorphone, Hydrocodone. Oxycodone/Oxymorphone,Urine Negative ng/mL 300 Test includes Oxycodone and Oxymorphone. TESTING PERFORMED AT [facility]. ORIGINAL REPORT ON FILE IN LAB CONTAINS ADDITIONAL TEST SITE INFORMATION. Urine Barbiturates Screen Negative < 200 ng/mL [facility] Urine Drug Screen Comment [facility] Comment on above: CONFIRMATORY TESTING FOR ALL [...] Urine Methadone Screen Negative < 300 ng/mL [facility] Urine phencyclidine (PCP) de tectionOrdered By: Harshad Camacho on 05-26-2023 Phencyclidine Ql (U) Negative < 25 ng/mL [facility] Absolute lymphocyte countOrd ered By: Dionne Magaña on 04-28-2023 Lymphocytes Auto (Unsp spec) [#/Vol] 2.03 10*3/uL 0.83-4.51 [facility] Basophil percentageOrdered B y: Dionne Magaña on 04-28-2023 Basophils/100 WBC (Bld) 1.0 % 0-1 [facility] Chloride [Moles/Vol] 107 mmol/L 98-107 [facility] Eosinophils/100 WBC (Bld) 1.8 % 0-5 [facility] Glucose [Mass/Vol] 155 mg/dL 74-106 [facility] Comment on above: Fasting Glucose resu lt greater than or equal to 126 mg/dL suggests DIABETES MELLITUS per A.D.A. criteria. Neutrophils (Bld) [#/Vol] 8.6 10*3/uL 2.0-7.7 [facility] Neutrophils/100 WBC (Bld) 71.7 % 47-70 [facility] Potassium [Moles/Vol] 4.6 mmol/L 3.5-5.1 [facility] Sodium [Moles/Vol] 139 mmol/L 136-145 [facility] WBC (Bld) [#/Vol] 12.0 10*3/uL 4.4-11.0 [facility] Blood erythrocytes count (nu mber/volume)Ordered By: Dionne Magaña on 04-28-2023 RBC (Bld) [#/Vol] 3.42 10*6/uL 4.2-5.4 [facility] Blood hemoglobin measurement (mass/volume)Ordered By: Dionne Magaña on 04-28-2023 Hemoglobin (Bld) [Mass/Vol] 11.4 g/dL 12.0-15.0 [facility] Blood lymphocytes/100 leukoc ytesOrdered By: Dionne Magaña on 04-28-2023 Lymphocytes/100 WBC (Bld) 16.9 % 19-41 [facility] Blood monocytes/100 leukocyt esOrdered By: Dionne Magaña on 04-28-2023 Monocytes/100 WBC (Bld) 7.9 % 0-10 [facility] Blood platelet mean volumeOr dered By: Dionne Magaña on 04-28-2023 Platelet mean volume (Bld) [Entitic vol] 11.1 fL 6.2-12.0 [facility] Determination of erythrocyte mean corpuscular volume (MCV)Ordered By: Dionne Magaña on 04-28-2023 MCV (RBC) [Entitic vol] 108.5 fL 81-99 [facility] Hematocrit Auto (Bld) [Volum e fraction]Ordered By: Dionne Magaña on 04-28-2023 Hematocrit (Bld) [Volume fraction] 37.1 % 37-47 [facility] Laboratory - Chemistry and C hemistry - challengeOrdered By: Dionne Magaña on 04-28-2023 CO2 [Moles/Vol] 26.0 mmol/L 21.0-32.0 [facility] Cobalamin (Vitamin B12) [Mass/Vol] 362 pg/mL 211-911 [facility] Urea nitrogen/Creatinine [Mass ratio] 21.4 mg/mg 10-20 [facility] Laboratory - Hematology and Cell countsOrdered By: Dionne Magaña on 04-28-2023 Erythrocyte distribution width (RBC) [Entitic vol] 55.8 fL 35.1-43.9 [facility] Erythrocyte distribution width (RBC) [Ratio] 14.0 % 11.6-14.6 [facility] Immature granulocytes/100 WBC (Bld) 0.700 % 0.0-0.9 [facility] Comment on above: IG% - Immature Granu locytes (promyelocytes, myelocytes and metamyelocytes) > 1% indicates that a LEFT SHIFT is Present. MCH (RBC) [Entitic mass] 33.3 pg 27.0-32.0 [facility] Nucleated RBC/100 WBC (Bld) [Ratio] 0 % 0-5 [facility] MCHC Auto (RBC) [Mass/Vol]Or dered By: Dionne Magaña on 04-28-2023 MCHC (RBC) [Mass/Vol] 30.7 g/dL 32-36 [facility] No Panel InformationOrdered By: Dionne Magaña on 04-28-2023 Estimated GFR (MDRD) Amer 66 mL/min >60 [facility] Comment on above: GFR Calc Estimated GFR (MDRD) Non-Af Amer 55 mL/min >60 [facility] Comment on above: Non- GFR Calc Thyroid Stimulating Hormone (TSH) 2.27 uIU/mL 0.358-3.74 [facility] Platelets bldOrdered By: Miguelangel Magaña on 04-28-2023 Platelets (Bld) [#/Vol] 278 10*3/uL 150-450 [facility] Serum or plasma calcium jd urement (mass/volume)Ordered By: Dionne Magaña on 04-28-2023 Calcium [Mass/Vol] 9.2 mg/dL 8.5-10.1 [facility] Serum or plasma creatinine m easurement (mass/volume)Ordered By: Dionne Magaña on 04-28-2023 Creatinine [Mass/Vol] 1.03 mg/dL 0.55-1.02 [facility] Comment on above: The validity of the calculated GFR & GFRAA in patients over 70 years has not been determined. Clinical correlation is essential. Serum or plasma urea nitroge n measurement (mass/volume)Ordered By: Dionne Magaña on 04-28-2023 Urea nitrogen [Mass/Vol] 22 mg/dL 7-18 [facility] Thin prep Papanicolaou smear with manual screeningOrdered By: Dionne Magaña on 04-28-2023 Thin prep Papanicolaou smear with manual screening 6 5-15 [facility] Laboratory - Hematology and Cell countson 04-13-2023 HbA1c (Bld) [Mass fraction] 6.7 % 4.2-6.3 [facility] No Panel InformationOrdered By: Dionne Magaña on 04-13-2023 Thyroid Stimulating Hormone (TSH) 0.74 uIU/mL 0.358-3.74 [facility] CNOVon 02-15-2023 CNOV Office Visit ([facility] ) -- MARCO AJERRELL Magdi ([id number]) 1945 F Date Time Provider Department 02/15/23 1:00 PM MALI RAMIREZ [facility] During your visit today, we recorded the following information about you: Temperature Pulse Respiration Blood pressure 98 degrees 87/minute 16/minute 128/64 Weight 74.6 kg Mali Ramirez APRN.DIVING [employer]ER 02/15/2023 1:54 PM Signed This note was created using [email or web address]. Subjective Jerrell Magdi Marco A is a [...] by the patient and a relative. No tail trimmer was used. Animal Bite The incident occurred [...] Date APPENDECTOMY HYSTERECTOMY HX partial- done in [place] LAMINECTOMY W/O FFD 07/12 VERT SEG LUMBAR [...] Negative f (more content not included)... [facility] Visit ([facility] ) -- JERRELL STRICKLAND ([id number]) 1945 F Date Time Provider Department 02/07/23 4:00 PM J LUIS SANCHES [facility] During your visit today, we recorded the [...] history is provided by the patient. No tail trimmer was used. Pain (foot) Review of Systems [...] Date APPENDECTOMY HYSTERECTOMY HX partial- done in [place] LAMINECTOMY W/O FFD 07/12 VERT SEG LUMBAR [...] noted. IMPRESSION IMPRESSION: No acute osseous abnormality Supervising Producer: PAZ Transcribe Date/Time: Feb 07 2023 4:09P Dictated by : MINERVA PATRICK MD - METHYLPREDNISOLONE 4 MG TABLETS IN A DOSE PACK Was educated about proper use of medication and supportive therapies. Patient was educated if signs and symptoms do not seem to be alleviated with the steroids that (more content not included)... Normal [facility] XR FOOT 3V AP/LAT/OBL LTon 0 02-07-2023 [...] are noted. IMPRESSION: No acute osseous abnormality Supervising Producer: PSCB Transcribe Date/Time: Feb 07 2023 4:09P Dictated by : MINERVA PATRICK MD This examination was interpreted and the report reviewed and electronically signed by: MINERVA PATRICK MD on Feb 07 2023 4:11PM EST [id number] Normal [facility] XR FOOT GENERAL 3V AP/LAT/OB L LEFTon 02-07-2023 [facility] XR Foot - left AP and Latera l and obliqueon 02-07-2023 IMPRESSION: No acute osseous abnormality Supervising Producer: PSC Transcribe Date/Time: Feb 07 2023 4:09P [...] noted. IMPRESSION IMPRESSION: No acute osseous abnormality Supervising Producer: [facility] Transcribe Date/Time: Feb 07 2023 4:09P Dictated by : MINERVA PATRICK MD This examination was interpreted and the report reviewed and electronically signed by: MINERVA PATRICK MD on Feb 07 2023 4:11PM [facility] Radiology Study observation (narrative) Shashank fairbanks [facility] XR Foot - left AP and Latera l and obliqueOrdered By: Ccf Provider on 02-07-2023 [facility] Nura [facility]-20[facility] -- JERRELL STRICKLAND ([id number]) 1945 F Date Time Provider Department 02/03/23 MANUEL WISE [facility] During your visit today, we recorded the [...] Status:Closed by MANUEL WISE on 02/03/23 Normal [facility] Bacteria Wnd Culton 02-01-20 Bacteria identified Cx [...] , Intermediate >4 , Resistant >8 Abnormal [facility] Comment on above: Performed By: #### 2 [id number], [id number], [id number], [id number] #### [facility] CLIA [id number] [address] [place] [address] [place] Fernando 01-31-2023 CNOV Office Visit ([facility] ) -- MARCO AJERRELL ([id number]) 1945 F Date Time Provider Department 01/31/23 2:15 PM ALEX LAW [facility] During your visit today, we recorded the [...] CULTURE WITH GRAM STAIN [SQWCUL] Order #: [id number]. #:[id number] amoxicillin-clavulanic acid (AUGMENTIN) 875-125 mg per tabletTake 1 tablet by mouth twice daily for 5 days.Disp: 10 tabletRfl: 0 Prescriptions as of 02/03/2023 - predniSONE (DELTASONE) 20 mg tablet TAKE 2 (TWO) TABLETS BY MOUTH EVERY DAY for FOUR days then 1 (ONE) TABLET EVERY DAY for 2 (TWO) days - rOPIN (more content not included)... [facility] Basophil percentageOrdered B y: Dionne Magaña on 01-18-2023 Chloride [Moles/Vol] 111 mmol/L 98-107 [facility] Glucose [Mass/Vol] 101 mg/dL 74-106 [facility] Comment on above: Fasting Glucose resu lt from 100 to 125 mg/dL suggests IMPAIRED HOMEOSTASIS per A.D.A. criteria. Potassium [Moles/Vol] 4.3 mmol/L 3.5-5.1 [facility] Sodium [Moles/Vol] 139 mmol/L 136-145 [facility] Laboratory - Chemistry and C hemistry - challengeOrdered By: Dionne Magaña on 01-18-2023 CO2 [Moles/Vol] 22.0 mmol/L 21.0-32.0 [facility] Urea nitrogen/Creatinine [Mass ratio] 25.9 mg/mg 10-20 [facility] No Panel InformationOrdered By: Dionne Magaña on 01-18-2023 Estimated GFR (MDRD) Amer 72 mL/min >60 [facility] Comment on above: GFR Calc Estimated GFR (MDRD) Non-Af Amer 59 mL/min >60 [facility] Comment on above: Non- GFR Calc Serum or plasma calcium jd urement (mass/volume)Ordered By: Dionne Magaña on 01-18-2023 Calcium [Mass/Vol] 9.5 mg/dL 8.5-10.1 [facility] Serum or plasma creatinine m easurement (mass/volume)Ordered By: Dionne Magaña on 01-18-2023 Creatinine [Mass/Vol] 0.97 mg/dL 0.55-1.02 [facility] Comment on above: The validity of the calculated GFR & GFRAA in patients over 70 years has not been determined. Clinical correlation is essential. Serum or plasma urea nitroge n measurement (mass/volume)Ordered By: Dionne Magaña on 01-18-2023 Urea nitrogen [Mass/Vol] 25 mg/dL 7-18 [facility] Thin prep Papanicolaou smear with manual screeningOrdered By: Dionne Magaña on 01-18-2023 Thin prep Papanicolaou smear with manual screening 6 5-15 [facility] Absolute lymphocyte countOrd ered By: Dionne Magaña on 01-10-2023 Lymphocytes Auto (Unsp spec) [#/Vol] 1.80 10*3/uL 0.83-4.51 [facility] Basophil percentageOrdered B y: Dionne Magaña on 01-10-2023 Basophils/100 WBC (Bld) 0.8 % 0-1 [facility] Bilirubin [Mass/Vol] 0.30 mg/dL 0.20-1.00 [facility] Comment on above: For patients on eltr ombopag therapy, use of Dimension [place] TBIL is not recommended. Chloride [Moles/Vol] 105 mmol/L 98-107 [facility] Cholesterol [Mass/Vol] 150 mg/dL <200 [facility] Comment on above: <200 mg/dL Desirable 200-240 mg/dL Borderline >240 mg/dL High Risk Eosinophils/100 WBC (Bld) 4.1 % 0-5 [facility] Glucose [Mass/Vol] 95 mg/dL 74-106 [facility] Neutrophils (Bld) [#/Vol] 6.9 10*3/uL 2.0-7.7 [facility] Neutrophils/100 WBC (Bld) 66.6 % 47-70 [facility] Potassium [Moles/Vol] 5.2 mmol/L 3.5-5.1 [facility] Protein [Mass/Vol] 7.3 g/dL 6.4-8.2 [facility] Sodium [Moles/Vol] 132 mmol/L 136-145 [facility] Triglyceride [Mass/Vol] 235 mg/dL <199 [facility] Comment on above: The drugs N-Acetylcy steine and Metamizole may falsely depress this assay.Serum Triglycerides Reference Interval Normal <150 mg/dL Borderline high 150 - 199 mg/dL High 200 - 499 mg/dL Very High > or = 500 mg/dL WBC (Bld) [#/Vol] 10.3 10*3/uL 4.4-11.0 [facility] Blood erythrocytes count (nu mber/volume)Ordered By: Dionne Magaña on 01-10-2023 RBC (Bld) [#/Vol] 3.52 10*6/uL 4.2-5.4 [facility] Blood hemoglobin measurement (mass/volume)Ordered By: Dionne Magaña on 01-10-2023 Hemoglobin (Bld) [Mass/Vol] 11.8 g/dL 12.0-15.0 [facility] Blood lymphocytes/100 leukoc ytesOrdered By: Dionne Magaña on 01-10-2023 Lymphocytes/100 WBC (Bld) 17.5 % 19-41 [facility] Blood monocytes/100 leukocyt esOrdered By: Dionne Magaña on 01-10-2023 Monocytes/100 WBC (Bld) 10.3 % 0-10 [facility] Blood platelet mean volumeOr dered By: Dionne Magaña on 01-10-2023 Platelet mean volume (Bld) [Entitic vol] 11.8 fL 6.2-12.0 [facility] Determination of erythrocyte mean corpuscular volume (MCV)Ordered By: Dionne Magaña on 01-10-2023 MCV (RBC) [Entitic vol] 105.4 fL 81-99 [facility] Hematocrit Auto (Bld) [Volum e fraction]Ordered By: Dionne Magaña on 01-10-2023 Hematocrit (Bld) [Volume fraction] 37.1 % 37-47 [facility] Laboratory - Chemistry and C hemistry - challengeOrdered By: Dionne Magaña on 01-10-2023 ALP [Catalytic activity/Vol] 99 U/L 45-117 [facility] ALT [Catalytic activity/Vol] 34 U/L 13-56 [facility] CO2 [Moles/Vol] 24.0 mmol/L 21.0-32.0 [facility] Cobalamin (Vitamin B12) [Mass/Vol] 228 pg/mL 211-911 [facility] Globulin (S) [Mass/Vol] 3.6 g/dL 2.2-4.2 [facility] Urea nitrogen/Creatinine [Mass ratio] 13.8 mg/mg 10-20 [facility] Laboratory - Hematology and Cell countsOrdered By: Dionne Magaña on 01-10-2023 Erythrocyte distribution width (RBC) [Entitic vol] 48.7 fL 35.1-43.9 [facility] Erythrocyte distribution width (RBC) [Ratio] 12.5 % 11.6-14.6 [facility] Immature granulocytes/100 WBC (Bld) 0.700 % 0.0-0.9 [facility] Comment on above: IG% - Immature Granu locytes (promyelocytes, myelocytes and metamyelocytes) > 1% indicates that a LEFT SHIFT is Present. MCH (RBC) [Entitic mass] 33.5 pg 27.0-32.0 [facility] Nucleated RBC/100 WBC (Bld) [Ratio] 0 % 0-5 [facility] MCHC Auto (RBC) [Mass/Vol]Or dered By: Dionne Magaña on 01-10-2023 MCHC (RBC) [Mass/Vol] 31.8 g/dL 32-36 [facility] No Panel InformationOrdered By: Dionne Magaña on 01-10-2023 Urine Microalbumin/Creatinine Ratio 15.9 mg/g CRE <30 [facility] Estimated GFR (MDRD) Amer 73 mL/min >60 [facility] Comment on above: GFR Calc Estimated GFR (MDRD) Non-Af Amer 61 mL/min >60 [facility] Comment on above: Non- GFR Calc Thyroid Stimulating Hormone (TSH) 0.09 uIU/mL 0.358-3.74 [facility] Vitamin D 25-Hydroxy 36.4 ng/mL [facility] Comment on above: Vitamin D 25(OH) Sta tus Range Deficiency <20 ng/mL (50nmol/L) Insufficiency 20 - 30 ng/mL (50 - 75 nmol/L) Sufficiency 30 - 100 ng/mL (75 - 250 nmol/L) Toxicity >100 ng/mL (>250 nmol/L) Platelets bldOrdered By: Miguelangel Magaña on 01-10-2023 Platelets (Bld) [#/Vol] 314 10*3/uL 150-450 [facility] Serum or plasma albumin jd urement (mass/volume)Ordered By: Dionne Magaña on 01-10-2023 Albumin [Mass/Vol] 3.7 g/dL 3.2-5.0 [facility] Serum or plasma albumin/glob ulin mass ratioOrdered By: Dionne Magaña on 01-10-2023 Albumin/Globulin [Mass ratio] 1.0 {ratio} 0.9-2.4 [facility] Serum or plasma calcium jd urement (mass/volume)Ordered By: Dionne Magaña on 01-10-2023 Calcium [Mass/Vol] 9.7 mg/dL 8.5-10.1 [facility] Serum or plasma cholesterol in HDL measurement (mass/volume)Ordered By: Dionne Magaña on 01-10-2023 Cholesterol in HDL [Mass/Vol] 34 mg/dL >40 [facility] Comment on above: The drugs N-Acetylcy steine and Metamizole may falsely depress this assay. Reference Range HDL <40 mg/dL Low HDL Cholesterol HDL >or= 60 mg/dL High HDL Cholesterol Serum or plasma cholesterol in VLDL measurement (mass/volume)Ordered By: Dionne Magaña on 01-10-2023 Cholesterol in VLDL [Mass/Vol] 47 mg/dL 5-40 [facility] Serum or plasma creatinine m easurement (mass/volume)Ordered By: Dionne Magaña on 01-10-2023 Creatinine [Mass/Vol] 0.94 mg/dL 0.55-1.02 [facility] Comment on above: The validity of the calculated GFR & GFRAA in patients over 70 years has not been determined. Clinical correlation is essential. Serum or plasma folate measu rement (mass/volume)Ordered By: Dionne Magaña on 01-10-2023 Folate [Mass/Vol] 8.60 ng/mL 3.1-55.4 [facility] Serum or plasma low density lipoprotein (LDL) cholesterol measurement (mass/volume)Ordered By: Dionne Magaña on 01-10-2023 Cholesterol in LDL [Mass/Vol] 69 mg/dL 0-130 [facility] Serum or plasma urea nitroge n measurement (mass/volume)Ordered By: Dionne Magaña on 01-10-2023 Urea nitrogen [Mass/Vol] 13 mg/dL 7-18 [facility] Thin prep Papanicolaou smear with manual screeningOrdered By: Dionne Magaña on 01-10-2023 Thin prep Papanicolaou smear with manual screening 11.5 mg/L NO RANGE EST. [facility] Thin prep Papanicolaou smear with manual screening 24 U/L 15-37 [facility] Thin prep Papanicolaou smear with manual screening 3 5-15 [facility] Urine creatinine measurement (mass/volume)Ordered By: Dionne Magaña on 01-10-2023 Creatinine (U) [Mass/Vol] 72.40 mg/dL NO RANGE EST. [facility] Whole blood hemoglobin A1c/t otal hemoglobin ratio (mass fraction)Ordered By: Dionne Magaña on 01-10-2023 HbA1c (Bld) [Mass fraction] 5.7 % 3.8-5.6 [facility] Comment on above: Normal < 5.7 % Predi abetic 5.7 - 6.4 % Diabetic >or= 6.5 % Please note range changes. Absolute lymphocyte countOrd ered By: Dr. Martin on 08-25-2022 Lymphocytes Auto (Unsp spec) [#/Vol] 1.67 10*3/uL 0.83-4.51 [facility] Basophil percentageOrdered B y: Dr. Martin on 08-25-2022 Basophils/100 WBC (Bld) 0.8 % 0-1 [facility] Bilirubin [Mass/Vol] 0.40 mg/dL 0.20-1.00 [facility] Comment on above: For patients on eltr ombopag therapy, use of Dimension [place] TBIL is not recommended. Chloride [Moles/Vol] 100 mmol/L 98-107 [facility] Eosinophils/100 WBC (Bld) 3.7 % 0-5 [facility] Glucose [Mass/Vol] 119 mg/dL 74-106 [facility] Comment on above: Fasting Glucose resu lt from 100 to 125 mg/dL suggests IMPAIRED HOMEOSTASIS per A.D.A. criteria. Neutrophils (Bld) [#/Vol] 11.2 10*3/uL 2.0-7.7 [facility] Neutrophils/100 WBC (Bld) 76.6 % 47-70 [facility] Potassium [Moles/Vol] 3.8 mmol/L 3.5-5.1 [facility] Protein [Mass/Vol] 7.1 g/dL 6.4-8.2 [facility] Sodium [Moles/Vol] 137 mmol/L 136-145 [facility] WBC (Bld) [#/Vol] 14.6 10*3/uL 4.4-11.0 [facility] Blood erythrocytes count (nu mber/volume)Ordered By: Dr. Martin on 08-25-2022 RBC (Bld) [#/Vol] 3.79 10*6/uL 4.2-5.4 [facility] Blood hemoglobin measurement (mass/volume)Ordered By: Dr. Martin on 08-25-2022 Hemoglobin (Bld) [Mass/Vol] 12.7 g/dL 12.0-15.0 [facility] Blood lymphocytes/100 leukoc ytesOrdered By: Dr. Martin on 08-25-2022 Lymphocytes/100 WBC (Bld) 11.4 % 19-41 [facility] Blood monocytes/100 leukocyt esOrdered By: Dr. Martin on 08-25-2022 Monocytes/100 WBC (Bld) 6.9 % 0-10 [facility] Blood platelet mean volumeOr dered By: Dr. Martin on 08-25-2022 Platelet mean volume (Bld) [Entitic vol] 12.2 fL 6.2-12.0 [facility] Determination of erythrocyte mean corpuscular volume (MCV)Ordered By: Dr. Martin on 08-25-2022 MCV (RBC) [Entitic vol] 104.0 fL 81-99 [facility] Erythrocyte sedimentation ra teOrdered By: Dr. Martin on 08-25-2022 ESR (Bld) [Velocity] 22 mm/h 0-30 [facility] Hematocrit Auto (Bld) [Volum e fraction]Ordered By: Dr. Martin on 08-25-2022 Hematocrit (Bld) [Volume fraction] 39.4 % 37-47 [facility] Laboratory - Chemistry and C hemistry - challengeOrdered By: Dr. Martin on 08-25-2022 ALP [Catalytic activity/Vol] 88 U/L 45-117 [facility] ALT [Catalytic activity/Vol] 23 U/L 13-56 [facility] CO2 [Moles/Vol] 27.0 mmol/L 21.0-32.0 [facility] Cobalamin (Vitamin B12) [Mass/Vol] 334 pg/mL 211-911 [facility] Globulin (S) [Mass/Vol] 3.8 g/dL 2.2-4.2 [facility] Urea nitrogen/Creatinine [Mass ratio] 12.1 mg/mg 10-20 [facility] Laboratory - Hematology and Cell countsOrdered By: Dr. Martin on 08-25-2022 Erythrocyte distribution width (RBC) [Entitic vol] 48.4 fL 35.1-43.9 [facility] Erythrocyte distribution width (RBC) [Ratio] 12.7 % 11.6-14.6 [facility] Immature granulocytes/100 WBC (Bld) 0.600 % 0.0-0.9 [facility] Comment on above: IG% - Immature Granu locytes (promyelocytes, myelocytes and metamyelocytes) > 1% indicates that a LEFT SHIFT is Present. MCH (RBC) [Entitic mass] 33.5 pg 27.0-32.0 [facility] Nucleated RBC/100 WBC (Bld) [Ratio] 0 % 0-[address] [facility] [address] ([facility]) [Mass/Vol]Or dered By: Dr. Martin on 08-25-2022 MCHC (RBC) [Mass/Vol] 32.2 g/dL 32-36 [facility] No Panel InformationOrdered By: Dr. Martin on 08-25-2022 Estimated GFR (MDRD) Amer 58 mL/min >60 [facility] Comment on above: GFR Calc Estimated GFR (MDRD) Non-Af Amer 48 mL/min >60 [facility] Comment on above: Non- GFR Calc Thyroid Stimulating Hormone (TSH) 25.40 uIU/mL 0.358-3.74 [facility] Platelets bldOrdered By: Dr. Martin on 08-25-2022 Platelets (Bld) [#/Vol] 298 10*3/uL 150-450 [facility] Serum or plasma albumin jd urement (mass/volume)Ordered By: Dr. Martin on 08-25-2022 Albumin [Mass/Vol] 3.3 g/dL 3.2-5.0 [facility] Serum or plasma albumin/glob ulin mass ratioOrdered By: Dr. Martin on 08-25-2022 Albumin/Globulin [Mass ratio] 0.9 {ratio} 0.9-2.4 [facility] Serum or plasma calcium jd urement (mass/volume)Ordered By: Dr. Martin on 08-25-2022 Calcium [Mass/Vol] 9.4 mg/dL 8.5-10.1 [facility] Serum or plasma creatinine m easurement (mass/volume)Ordered By: Dr. Martin on 08-25-2022 Creatinine [Mass/Vol] 1.16 mg/dL 0.55-1.02 [facility] Comment on above: The validity of the calculated GFR & GFRAA in patients over 70 years has not been determined. Clinical correlation is essential. Serum or plasma urea nitroge n measurement (mass/volume)Ordered By: Dr. Martin on 08-25-2022 Urea nitrogen [Mass/Vol] 14 mg/dL 7-18 [facility] Thin prep Papanicolaou smear with manual screeningOrdered By: Dr. Martin on 08-25-2022 Thin prep Papanicolaou smear with manual screening 22 U/L 15-37 [facility] Thin prep Papanicolaou smear with manual screening 10 5-15 [facility] Basophil percentageOrdered B y: Dr. Freeman on 07-30-2022 WBC (Bld) [#/Vol] 10.2 10*3/uL 4.4-11.0 [facility] Blood erythrocytes count (nu mber/volume)Ordered By: Dr. Freeman on 07-30-2022 RBC (Bld) [#/Vol] 3.78 10*6/uL 4.2-5.4 [facility] Blood hemoglobin measurement (mass/volume)Ordered By: Dr. Freeman on 07-30-2022 Hemoglobin (Bld) [Mass/Vol] 12.8 g/dL 12.0-15.0 [facility] Blood platelet mean volumeOr dered By: Dr. Freeman on 07-30-2022 Platelet mean volume (Bld) [Entitic vol] 11.1 fL 6.2-12.0 [facility] Determination of erythrocyte mean corpuscular volume (MCV)Ordered By: Dr. Freeman on 07-30-2022 MCV (RBC) [Entitic vol] 106.6 fL 81-99 [facility] Hematocrit Auto (Bld) [Volum e fraction]Ordered By: Dr. Freeman on 07-30-2022 Hematocrit (Bld) [Volume fraction] 40.3 % 37-47 [facility] Laboratory - Hematology and Cell countsOrdered By: Dr. Freeman on 07-30-2022 Erythrocyte distribution width (RBC) [Entitic vol] 50.7 fL 35.1-43.9 [facility] Erythrocyte distribution width (RBC) [Ratio] 12.9 % 11.6-14.6 [facility] MCH (RBC) [Entitic mass] 33.9 pg 27.0-32.0 [facility] MCHC Auto (RBC) [Mass/Vol]Or dered By: Dr. Freeman on 07-30-2022 MCHC (RBC) [Mass/Vol] 31.8 g/dL 32-36 [facility] Platelets bldOrdered By: Dr. Freeman on 07-30-2022 Platelets (Bld) [#/Vol] 356 10*3/uL 150-450 [facility] LABORATORYOrdered By: Sarah Hinkle on 07-09-2022 Basophil, [...] Probable Contamination. Suggest recollection if clinically indicated. [facility] Work Phone: Microscopic examination of blood, culture Culture has been received in lab and is no growth to date. Routine cultures are held for 5 days. [facility] Work Phone: LABORATORYOrdered By: Hernan Vernon on 07-07-2022 Glucose [Mass/Vol] 141 mg/dL Invalid Interpretation Code 82 - 115 mg/dL [facility] Work Phone: LABORATORYOrdered By: Ellen Angela on 07-06-2022 Glucose [Mass/Vol] 130 mg/dL Invalid Interpretation Code 82 - 115 mg/dL [facility] Work Phone: LABORATORYOrdered By: Frances House on 07-06-2022 ABO/Rh Interp Positive Invalid Interpretation Code AO BB SS Antibody Screen Gel Negative [facility] (07/06/22 9:36 AM) Invalid Interpretation Code AO BB SS LABORATORYOrdered By: Chung Kimball on 07-06-2022 Glucose [Mass/Vol] 107 mg/dL Invalid Interpretation Code 82 - 115 mg/dL [facility] Work Phone: Laboratory - Drug toxicology Ordered By: Dr. Camacho on 06-28-2022 Amphetamines Ql (U) Negative <1000 ng/mL [facility] Benzodiazepines Ql (U) Negative < 200 ng/mL [facility] Cannabinoids Screen Ql (U) Negative < 50 ng/mL [facility] Cocaine Ql (U) Negative < 300 ng/mL [facility] Opiates Ql (U) Positive < 300 ng/mL [facility] No Panel InformationOrdered By: Dr. Camacho on 06-28-2022 MDMA (Ecstasy) Screen Negative < 500 ng/mL [facility] Miscellaneous Test See comment [facility] Comment on above: [id number] 6+OXYCODONE-B UND (ng/mL) DRUG RESULT SCREEN CUTOFF____ [...] includes Oxydodone and Oxymorphone. [facility] ORIGINAL REPORT ON FILE IN LAB CONTAINS ADDITIONAL TEST SITE INFORMATION. Urine Barbiturates Screen Negative < 200 ng/mL [facility] Urine Drug Screen Comment [facility] Comment on above: CONFIRMATORY TESTING FOR ALL [...] Urine Methadone Screen Negative < 300 ng/mL [facility] Urine phencyclidine (PCP) de tectionOrdered By: Dr. Camacho on 06-28-2022 Phencyclidine Ql (U) Negative < 25 ng/mL [facility] LABORATORYOrdered By: Nadine Nava on 06-22-2022 [...] percentageon 2021 Chloride [Moles/Vol] 103 mmol/L 98-107 [facility] Work Phone: Glucose [Mass/Vol] 176 mg/dL 74-106 [facility] Work Phone: Comment on above: Fasting Glucose resu lt greater than or equal to 126 mg/dL suggests DIABETES MELLITUS per A.D.A. criteria. Potassium [Moles/Vol] 4.1 mmol/L 3.5-5.1 [facility] Work Phone: Sodium [Moles/Vol] 135 mmol/L 136-145 [facility] Work Phone: Glucose Glucometer (BldC) [M ass/Vol]on 12-01-2021 Glucose [Mass/Vol] 250 mg/dL 74-106 [facility] Work Phone: Comment on above: MANAGEMENT OF PATIEN T CARE PER NURSING PROTOCOL Laboratory - Chemistry and C hemistry - challengeon 12-01-2021 CO2 [Moles/Vol] 24.0 mmol/L 21.0-32.0 [facility] Work Phone: Urea nitrogen/Creatinine [Mass ratio] 13.9 mg/mg 10-20 [facility] Work Phone: No Panel Informationon 12-01 Estimated Creatinine Clearance Calc 44.08 ml/min [facility] Work Phone: Estimated GFR (MDRD) Amer 81 mL/min >60 [facility] Work Phone: Comment on above: GFR Calc Estimated GFR (MDRD) Non-Af Amer 67 mL/min >60 [facility] Work Phone: Comment on above: Non- GFR Calc Serum or plasma calcium jd urement (mass/volume)on 12-01-2021 Calcium [Mass/Vol] 8.7 mg/dL 8.5-10.1 [facility] Work Phone: Serum or plasma creatinine m easurement (mass/volume)on 12-01-2021 Creatinine [Mass/Vol] 0.87 mg/dL 0.55-1.02 [facility] Work Phone: Comment on above: The validity of the calculated GFR & GFRAA in patients over 70 years has not been determined. Clinical correlation is essential. Serum or plasma urea nitroge n measurement (mass/volume)on 12-01-2021 Urea nitrogen [Mass/Vol] 12 mg/dL 7-18 [facility] Work Phone: Thin prep Papanicolaou smear with manual screeningon 12-01-2021 Thin prep Papanicolaou smear with manual screening 8 5-15 [facility] Work Phone: Absolute lymphocyte counton 11-30-2021 Lymphocytes Auto (Unsp spec) [#/Vol] 1.74 10*3/uL 0.83-4.51 [facility] Work Phone: Basophil percentageon 2021 Basophils/100 WBC (Bld) 0.8 % 0-1 [facility] Work Phone: [phone] Eosinophils/100 WBC (Bld) 2.7 % 0-5 [facility] Work Phone: Neutrophils (Bld) [#/Vol] 8.1 10*3/uL 2.0-7.7 [facility] Work Phone: [phone] Neutrophils/100 WBC (Bld) 68.3 % 47-70 [facility] Work Phone: [phone] WBC (Bld) [#/Vol] 11.9 10*3/uL 4.4-11.0 [facility] Work Phone: Blood erythrocytes count (nu mber/volume)on 11-30-2021 RBC (Bld) [#/Vol] 3.36 10*6/uL 4.2-5.4 [facility] Work Phone: Blood hemoglobin measurement (mass/volume)on 11-30-2021 Hemoglobin (Bld) [Mass/Vol] 11.3 g/dL 12.0-15.0 [facility] Work Phone: Blood lymphocytes/100 leukoc yteson 11-30-2021 Lymphocytes/100 WBC (Bld) 14.7 % 19-41 [facility] Work Phone: [phone] Blood monocytes/100 leukocyt eson 11-30-2021 Monocytes/100 WBC (Bld) 9.6 % 0-10 [facility] Work Phone: Blood platelet mean volumeon 11-30-2021 Platelet mean volume (Bld) [Entitic vol] 11.3 fL 6.2-12.0 [facility] Work Phone: [phone] Determination of erythrocyte mean corpuscular volume (MCV)on 11-30-2021 MCV (RBC) [Entitic vol] 101.2 fL 81-99 [facility] Work Phone: [phone] Hematocrit Auto (Bld) [Volum e fraction]on 11-30-2021 Hematocrit (Bld) [Volume fraction] 34.0 % 37-47 [facility] Work Phone: Laboratory - Chemistry and C hemistry - challengeon 11-30-2021 Magnesium [Mass/Vol] 1.7 mg/dL 1.6-2.6 [facility] Work Phone: Laboratory - Hematology and Cell countson 11-30-2021 Erythrocyte distribution width (RBC) [Entitic vol] 47.6 fL 35.1-43.9 [facility] Work Phone: Erythrocyte distribution width (RBC) [Ratio] 12.9 % 11.6-14.6 [facility] Work Phone: Immature granulocytes/100 WBC (Bld) 3.900 % 0.0-0.9 [facility] Work Phone: Comment on above: IG% - Immature Granu locytes (promyelocytes, myelocytes and metamyelocytes) > 1% indicates that a LEFT SHIFT is Present. MCH (RBC) [Entitic mass] 33.6 pg 27.0-32.0 [facility] Work Phone: Nucleated RBC/100 WBC (Bld) [Ratio] 0 % 0-5 [facility] Work Phone: MCHC Auto (RBC) [Mass/Vol]on 11-30-2021 MCHC (RBC) [Mass/Vol] 33.2 g/dL 32-36 [facility] Work Phone: Platelets bldon 11-30-2021 Platelets (Bld) [#/Vol] 278 10*3/uL 150-450 [facility] Work Phone: Whole blood hemoglobin A1c/t otal hemoglobin ratio (mass fraction)on 11-30-2021 HbA1c (Bld) [Mass fraction] 8.5 % 3.8-5.6 [facility] Work Phone: Comment on above: Normal < 5.7 % Predi abetic 5.7 - 6.4 % Diabetic >or= 6.5 % Please note range changes. Basophil percentageon 2021 Bilirubin [Mass/Vol] 0.50 mg/dL 0.20-1.00 [facility] Work Phone: Comment on above: For patients on eltr ombopag therapy, use of Dimension [place] TBIL is not recommended. Protein [Mass/Vol] 7.1 g/dL 6.4-8.2 [facility] Work Phone: Laboratory - Chemistry and C hemistry - challengeon 11-29-2021 ALP [Catalytic activity/Vol] 96 U/L 45-117 [facility] Work Phone: ALT [Catalytic activity/Vol] 40 U/L 13-56 [facility] Work Phone: Globulin (S) [Mass/Vol] 4.1 g/dL 2.2-4.2 [facility] Work Phone: Natriuretic peptide B (Bld) [Mass/Vol] 9.0 pg/mL 0-100 [facility] Work Phone: No Panel Informationon 11-29 SARS-CoV-2 & FLU Antigen (Rapid) [facility] Work Phone: Troponin I High Sensitivity 6 pg/mL 3.0-54.0 [facility] Work Phone: Comment on above: Please Note: New Desiree t Units and Gender Specific Reference Ranges. For more information see Policy Stat Procedure [place] High Sensitivity Troponin (TNIH) and attachments. Serum or plasma albumin jd urement (mass/volume)on 11-29-2021 Albumin [Mass/Vol] 3.0 g/dL 3.2-5.0 [facility] Work Phone: Serum or plasma albumin/glob ulin mass ratioon 11-29-2021 Albumin/Globulin [Mass ratio] 0.7 {ratio} 0.9-2.4 [facility] Work Phone: Thin prep Papanicolaou smear with manual screeningon 11-29-2021 Thin prep Papanicolaou smear with manual screening 31 U/L 15-37 [facility] Work Phone: Basophil percentageon 2021 Chloride [Moles/Vol] 102 mmol/L 98-107 [facility] Work Phone: Glucose [Mass/Vol] 295 mg/dL 74-106 [facility] Work Phone: Comment on above: Glucose result great er than or equal to 200 mg/dLsuggests DIABETES MELLITUS per A.D.A. criteria. Potassium [Moles/Vol] 4.2 mmol/L 3.5-5.1 [facility]: Sodium [Moles/Vol] 136 mmol/L 136-145 [facility] Work Phone: WBC (Bld) [#/Vol] 15.8 10*3/uL 4.4-11.0 [facility] Work Phone: Blood erythrocytes count (nu mber/volume)on 11-21-2021 RBC (Bld) [#/Vol] 3.42 10*6/uL 4.2-5.4 [facility]: Blood hemoglobin measurement (mass/volume)on 11-21-2021 Hemoglobin (Bld) [Mass/Vol] 11.5 g/dL 12.0-15.0 [facility] Work Phone: Blood platelet mean volumeon 11-21-2021 Platelet mean volume (Bld) [Entitic vol] 11.1 fL 6.2-12.0 [facility] Work Phone: Determination of erythrocyte mean corpuscular volume (MCV)on 11-21-2021 MCV (RBC) [Entitic vol] 103.5 fL 81-99 [facility] Work Phone: Hematocrit Auto (Bld) [Volum e fraction]on 11-21-2021 Hematocrit (Bld) [Volume fraction] 35.4 % 37-47 [facility] Work Phone: Laboratory - Chemistry and C hemistry - challengeon 11-21-2021 CO2 [Moles/Vol] 25.0 mmol/L 21.0-32.0 [facility] Work Phone: Urea nitrogen/Creatinine [Mass ratio] 15.7 mg/mg 10-20 [facility] Work Phone: Laboratory - Hematology and Cell countson 11-21-2021 Erythrocyte distribution width (RBC) [Entitic vol] 49.8 fL 35.1-43.9 [facility] Work Phone: Erythrocyte distribution width (RBC) [Ratio] 13.2 % 11.6-14.6 [facility] Work Phone: MCH (RBC) [Entitic mass] 33.6 pg 27.0-32.0 [facility] Work Phone: MCHC Auto (RBC) [Mass/Vol]on 11-21-2021 MCHC (RBC) [Mass/Vol] 32.5 g/dL 32-36 [facility] Work Phone: No Panel Informationon 11-21 Estimated GFR (MDRD) Amer 59 mL/min >60 [facility] Work Phone: Comment on above: GFR Calc Estimated GFR (MDRD) Non-Af Amer 49 mL/min >60 [facility] Work Phone: Comment on above: Non- GFR Calc Platelets bldon 11-21-2021 Platelets (Bld) [#/Vol] 308 10*3/uL 150-450 [facility] Work Phone: Serum or plasma calcium jd urement (mass/volume)on 11-21-2021 Calcium [Mass/Vol] 9.1 mg/dL 8.5-10.1 [facility] Work Phone: Serum or plasma creatinine m easurement (mass/volume)on 11-21-2021 Creatinine [Mass/Vol] 1.15 mg/dL 0.55-1.02 [facility] Work Phone: Comment on above: The validity of the calculated GFR & GFRAA in patients over 70 years has not been determined. Clinical correlation is essential. Serum or plasma urea nitroge n measurement (mass/volume)on 11-21-2021 Urea nitrogen [Mass/Vol] 18 mg/dL 7-18 [facility] Work Phone: Thin prep Papanicolaou smear with manual screeningon 11-21-2021 Thin prep Papanicolaou smear with manual screening 9 5-15 [facility] Work Phone: Laboratory - Microbiology an d Antimicrobial susceptibilityon 11-18-2021 SARS-CoV-2 (COVID-19) RNA PRIYANKA+probe Ql (Unsp spec) Not detected Not Detect [facility] Work Phone: Comment on above: Normal Reference Ran ge: Not DetectedMethod:(RT-PCR) real-time reverse transcriptase PCRLuminex WePopp Instrument*The Food and Drug Administration (FDA) has issued an Emergency Use Authorization (EAU) for the WePopp SARS-CoV-2 Assay for the rapid detection of [...] 11-18 Influenza Types A,B Direct FA (RACH) [facility] Work Phone: Laboratory - Drug toxicology on 10-08-2021 Amphetamines Ql (U) Negative [facility] Work Phone: Benzodiazepines Ql (U) Negative [facility] Work Phone: Cannabinoids Screen Ql (U) Negative [facility] Work Phone: Cocaine Ql (U) Negative [facility] Work Phone: Opiates Ql (U) Positive [facility] Work Phone: No Panel Informationon 10-08 MDMA (Ecstasy) Screen Negative [facility] Work Phone: Miscellaneous Test See comment [facility] Work Phone: Comment on above: [id number] 6+OXYCODONE-B UND (ng/mL) DRUG RESULT SCREEN CUTOFF____ [...] includes Oxydodone and Oxymorphone. TESTING PERFORMED AT [facility]. ORIGINAL REPORT ON FILE IN LAB CONTAINS ADDITIONAL TEST SITE INFORMATION. Urine Barbiturates Screen Negative [facility] Work Phone: Urine Drug Screen Comment [facility] Work Phone: Comment on above: CONFIRMATORY TESTING [...] USE TESTMNEMONIC: [facility] Urine Methadone Screen Negative [facility] Work Phone: Urine phencyclidine (PCP) de tectionon 10-08-2021 Phencyclidine Ql (U) Negative [facility] Work Phone: Glucose Glucometer (BldC) [M ass/Vol]on 08-20-2021 Glucose [Mass/Vol] 114 mg/dL 70-110 [facility] Work Phone: Comment on above: MANAGEMENT OF PATIEN T CARE PER NURSING PROTOCOL Absolute lymphocyte counton 08-17-2021 Lymphocytes Auto (Unsp spec) [#/Vol] 1.84 10*3/uL 0.83-4.51 [facility] Work Phone: Basophil percentageon 2021 Basophils/100 WBC (Bld) 0.9 % 0-1 [facility] Work Phone: Chloride [Moles/Vol] 101 mmol/L 98-107 [facility] Work Phone: Eosinophils/100 WBC (Bld) 4.9 % 0-5 [facility] Work Phone: Glucose [Mass/Vol] 102 mg/dL 74-106 [facility] Work Phone: Comment on above: Fasting Glucose resu lt from 100 to 125 mg/dL suggests IMPAIRED HOMEOSTASIS per A.D.A. criteria. Neutrophils (Bld) [#/Vol] 5.2 10*3/uL 2.0-7.7 [facility] Work Phone: Neutrophils/100 WBC (Bld) 61.5 % 47-70 [facility] Work Phone: Potassium [Moles/Vol] 4.4 mmol/L 3.5-5.1 [facility] Work Phone: Sodium [Moles/Vol] 130 mmol/L 136-145 [facility] Work Phone: [phone] WBC (Bld) [#/Vol] 8.5 10*3/uL 4.4-11.0 [facility] Work Phone: Blood erythrocytes count (nu mber/volume)on 08-17-2021 RBC (Bld) [#/Vol] 3.20 10*6/uL 4.2-5.4 [facility] Work Phone: Blood hemoglobin measurement (mass/volume)on 08-17-2021 Hemoglobin (Bld) [Mass/Vol] 10.5 g/dL 12.0-15.0 [facility] Work Phone: Blood lymphocytes/100 leukoc yteson 08-17-2021 Lymphocytes/100 WBC (Bld) 21.8 % 19-41 [facility] Work Phone: Blood monocytes/100 leukocyt eson 08-17-2021 Monocytes/100 WBC (Bld) 9.2 % 0-10 [facility] Work Phone: Blood platelet mean volumeon 08-17-2021 Platelet mean volume (Bld) [Entitic vol] 10.6 fL 6.2-12.0 [facility] Work Phone: Determination of erythrocyte mean corpuscular volume (MCV)on 08-17-2021 MCV (RBC) [Entitic vol] 100.3 fL 81-99 [facility] Work Phone: Hematocrit Auto (Bld) [Volum e fraction]on 08-17-2021 Hematocrit (Bld) [Volume fraction] 32.1 % 37-47 [facility] Work Phone: Laboratory - Chemistry and C hemistry - challengeon 08-17-2021 CO2 [Moles/Vol] 23.0 mmol/L 21.0-32.0 [facility] Work Phone: Urea nitrogen/Creatinine [Mass ratio] 14.0 mg/mg 10-20 [facility] Work Phone: Laboratory - Hematology and Cell countson 08-17-2021 Erythrocyte distribution width (RBC) [Entitic vol] 50.1 fL 35.1-43.9 [facility] Work Phone: Erythrocyte distribution width (RBC) [Ratio] 13.5 % 11.6-14.6 [facility] Work Phone: Immature granulocytes/100 WBC (Bld) 1.700 % 0.0-0.9 [facility] Work Phone: Comment on above: IG% - Immature Granu locytes (promyelocytes, myelocytes and metamyelocytes) > 1% indicates that a LEFT SHIFT is Present. MCH (RBC) [Entitic mass] 32.8 pg 27.0-32.0 [facility] Work Phone: Nucleated RBC/100 WBC (Bld) [Ratio] 0 % 0-5 [facility] Work Phone: MCHC Auto (RBC) [Mass/Vol]on 08-17-2021 MCHC (RBC) [Mass/Vol] 32.7 g/dL 32-36 [facility] Work Phone: No Panel Informationon 08-17 Estimated Creatinine Clearance Calc 46.56 ml/min [facility] [facility] Work Phone: Estimated GFR (MDRD) Amer 83 mL/min >60 [facility] Work Phone: Comment on above: GFR Calc Estimated GFR (MDRD) Non-Af Amer 68 mL/min >60 [facility] Work Phone: Comment on above: Non- GFR Calc Platelets bldon 08-17-2021 Platelets (Bld) [#/Vol] 458 10*3/uL 150-450 [facility] Work Phone: Serum or plasma calcium jd urement (mass/volume)on 08-17-2021 Calcium [Mass/Vol] 8.8 mg/dL 8.5-10.1 [facility] Work Phone: Serum or plasma creatinine m easurement (mass/volume)on 08-17-2021 Creatinine [Mass/Vol] 0.86 mg/dL 0.55-1.02 [facility] Work Phone: Comment on above: The validity of the calculated GFR & GFRAA in patients over 70 years has not been determined. Clinical correlation is essential. Serum or plasma urea nitroge n measurement (mass/volume)on 08-17-2021 Urea nitrogen [Mass/Vol] 12 mg/dL 7-18 [facility] Work Phone: Thin prep Papanicolaou smear with manual screeningon 08-17-2021 Thin prep Papanicolaou smear with manual screening 6 5-15 [facility] Work Phone: Basophil percentageon 2021 Basophil percentage 0 SEEN /hpf [facility] Work Phone: Bilirubin Test strip Ql (U)o n 08-14-2021 Bilirubin Ql (U) Negative Negative [facility] Work Phone: Culture, urineon 08-14-2021 Bacteria identified Cx Nom (U) Culture exhibits no growth. [facility] Work Phone: Ketones Test strip Ql (U)on 08-14-2021 Ketones Ql (U) Negative Negative [facility] Work Phone: Mucus LM Ql (Urine sed)on Mucus Ql (Urine sed) 0 SEEN /hpf [facility] Work Phone: Nitrite Test strip Ql (U)on 08-14-2021 Nitrite Ql (U) Negative Negative [facility] Work Phone: Protein Test strip Ql (U)on 08-14-2021 Protein Ql (U) Negative Negative [facility] Work Phone: Squamous epithelial cells de tection in urine sediment by light microscopyon 08-14-2021 Epithelial cells.squamous LM Ql (Urine sed) 0 SEEN /hpf [facility] Work Phone: Urine blood detectionon RBC Ql (U) Negative Negative [facility] Work Phone: RBC Ql (U) 0 SEEN /hpf [facility] Work Phone: Urine clarityon 08-14-2021 Clarity (U) Clear Clear [facility] Work Phone: Urine color determinationon 08-14-2021 Color (U) Yellow Yellow [facility] Work Phone: Urine glucose detectionon Glucose Ql (U) Normal mg/dl Normal [facility] Work Phone: Urine leukocyte esterase det ection by dipstickon 08-14-2021 Leukocyte esterase Test strip Ql (U) Negative Negative [facility] Work Phone: Urine pHon 08-14-2021 pH (U) 6.0 [pH] [facility] Work Phone: Urine sediment bacteria coun t by microscopy (number/high power field)on 08-14-2021 Bacteria LM.HPF (Urine sed) [#/Area] 0 /[HPF] None Seen [facility] Work Phone: Urine specific gravity measu rementon 08-14-2021 Specific gravity (U) [Rel density] 1.010 [facility] Work Phone: Urobilinogen Auto test strip Ql (U)on 08-14-2021 Urobilinogen Ql (U) Normal mg/dl Normal [facility] Work Phone: No Panel Informationon 08-13 SARS-CoV-2 Antigen (Rapid) [facility] Work Phone: Absolute lymphocyte counton 08-07-2021 Lymphocytes Auto (Unsp spec) [#/Vol] 1.53 10*3/uL 0.83-4.51 [facility] Work Phone: Comment on above: Previous reported re sult: 1.45 X10^3/uLEdited by: LUIS E on 08/07/21:0649 AMENDED REPORT 08/07/21 0649 Absolute Lymph previously reported as: 1.45 X10^3/uL Basophil percentageon 2021 Sodium [Moles/Vol] 129 mmol/L 136-145 [facility] Work Phone: Basophil percentage 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 Work [facility]: Comment on above: Previous reported [...] 0.8 % Bilirubin [Mass/Vol] 0.30 mg/dL 0.20-1.00 [facility] Work Phone: Comment on above: For patients on eltr ombopag therapy, use of Dimension [place] TBIL is not recommended. Chloride [Moles/Vol] 102 mmol/L 98-107 [facility] Work Phone: Glucose [Mass/Vol] 106 mg/dL 74-106 [facility] Work Phone: Comment on above: Fasting Glucose resu lt from 100 to 125 mg/dL suggests IMPAIRED HOMEOSTASIS per A.D.A. criteria. Neutrophils (Bld) [#/Vol] 70.7 10*3/uL 2.0-7.7 [facility] Work Phone: Comment on above: Previous reported re sult: 9.7 X10^3/uLEdited by: LUIS E on 08/07/21:0648 AMENDED REPORT 08/07/21647 Absolute Neut previously reported as: 9.7 H X10^3/uL Potassium [Moles/Vol] 4.0 mmol/L 3.5-5.1 [facility] Work Phone: Protein [Mass/Vol] 5.7 g/dL 6.4-8.2 [facility] Work Phone: WBC (Bld) [#/Vol] 13.9 10*3/uL 4.4-11.0 [facility] Work Phone: Blood band neutrophil count as percentage of total leukocyteson 08-07-2021 Band form neutrophils/100 WBC (Bld) 1 % 0-5 [facility] Work Phone: Blood eosinophils/100 leukoc yteson 08-07-2021 Eosinophils/100 WBC (Bld) 4 % 0-5 [facility] Work Phone: Blood erythrocytes count (nu mber/volume)on 08-07-2021 RBC (Bld) [#/Vol] 3.04 10*6/uL 4.2-5.4 [facility] Work Phone: Blood hemoglobin measurement (mass/volume)on 08-07-2021 Hemoglobin (Bld) [Mass/Vol] 9.9 g/dL 12.0-15.0 [facility] Work Phone: Blood lymphocytes/100 leukoc yteson 08-07-2021 Lymphocytes/100 WBC (Bld) 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 [facility] Work Phone: Comment on above: Previous reported re sult: 10.4 %Edited by: LUIS E on 08/07/21:0642 AMENDED REPORT 08/07/21641 LY% previously reported as: 10.4 L % Lymphocytes/100 WBC (Bld) 11 % 19-41 [facility] Work Phone: Blood metamyelocytes/100 echo kocyteson 08-07-2021 Metamyelocytes/100 WBC (Bld) 3 % 0-1 [facility] Work Phone: Blood monocytes/100 leukocyt eson 08-07-2021 Monocytes/100 WBC (Bld) 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 W [facility] Work Phone: Comment on above: Previous reported re sult: 8.6 %Edited by: LUIS E on 08/07/21:0642 AMENDED REPORT 08/07/21641 MONO% previously reported as: 8.6 % Monocytes/100 WBC (Bld) 8 % 0-10 [facility] Work Phone: Blood platelet adequacy dete ction by light microscopyon 08-07-2021 Platelets LM Ql (Bld) [facility] Blood platelet mean volumeon 08-07-2021 Platelet mean volume (Bld) [Entitic vol] 10.8 fL 6.2-12.0 [facility] Work Phone: Blood segmented neutrophils/ 100 leukocyteson 08-07-2021 Segmented neutrophils/100 WBC (Bld) 71 % 47-70 [facility] Work Phone: Determination of erythrocyte mean corpuscular volume (MCV)on 08-07-2021 MCV (RBC) [Entitic vol] 100.0 fL 81-99 [facility] Work Phone: Glucose Glucometer (BldC) [M ass/Vol]on 08-07-2021 Glucose [Mass/Vol] 149 mg/dL 70-110 [facility] Work Phone: Comment on above: MANAGEMENT OF PATIEN T CARE PER NURSING PROTOCOL Hematocrit Auto (Bld) [Volum e fraction]on 08-07-2021 Hematocrit (Bld) [Volume fraction] 30.4 % 37-47 [facility] Work Phone: Laboratory - Chemistry and C hemistry - challengeon 08-07-2021 ALP [Catalytic activity/Vol] 89 U/L 45-117 [facility] Work Phone: ALT [Catalytic activity/Vol] 25 U/L 13-56 [facility] Work Phone: CO2 [Moles/Vol] 21.0 mmol/L 21.0-32.0 [facility] Work Phone: Globulin (S) [Mass/Vol] 3.7 g/dL 2.2-4.2 [facility] Work Phone: Urea nitrogen/Creatinine [Mass ratio] 18.1 mg/mg 10-20 [facility] Work Phone: Laboratory - Hematology and Cell countson 08-07-2021 Erythrocyte distribution width (RBC) [Entitic vol] 49.0 fL 35.1-43.9 [facility] Work Phone: Erythrocyte distribution width (RBC) [Ratio] 13.3 % 11.6-14.6 [facility] Work Phone: MCH (RBC) [Entitic mass] 32.6 pg 27.0-32.0 [facility] Work Phone: Myelocytes/100 WBC (Bld) 2 % 0-0 [facility] Work Phone: Nucleated RBC/100 WBC (Bld) [Ratio] 0 % 0-5 [facility] Work Phone: MCHC Auto (RBC) [Mass/Vol]on 08-07-2021 MCHC (RBC) [Mass/Vol] 32.6 g/dL 32-36 [facility] Work Phone: No Panel Informationon 08-07 Estimated Creatinine Clearance Calc 40.04 ml/min [facility] Work Phone: Estimated GFR (MDRD) Amer 93 mL/min >60 [facility] Work Phone: Comment on above: GFR Calc Estimated GFR (MDRD) Non-Af Amer 77 mL/min >60 [facility] Work Phone: Comment on above: Non- GFR Calc Immature Granulocyte % (Auto) 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 [facility] Work Phone: Comment on above: Previous reported re sult: 6.400 %Edited by: LUIS E on 08/07/21:0642 AMENDED REPORT 08/07/21 0642 IM GRAN % previously reported as: 6.400 H % IG% - Immature Granulocytes (promyelocytes, myelocytes and metamyelocytes) > 1% indicates that a LEFT SHIFT is Present. Platelets bldon 08-07-2021 Platelets (Bld) [#/Vol] 342 10*3/uL 150-450 [facility] Work Phone: RBC morphologyon 08-07-2021 RBC morphology finding Nom (Bld) NORM C+C NORMAL NORM C&C [facility] Work Phone: Review by pathologiston 07-12 Pathologist review Alejandro (Unsp spec) [Interp] Reviewed [facility] Work Phone: Comment on above: Previous reported re sult: Alexa cuevas Edited by: RGOPATIENCE on 08/07/21:1245Neutrophilic leukocytosis with slight left shift. Macrocytic anemia.Clinical correlation suggested.Gabe Rodriguez D.O. 08/07/21 AMENDED REPORT 08/07/21 1245 PATH REV previously reported as: Alexa cuevas Serum or plasma albumin jd urement (mass/volume)on 08-07-2021 Albumin [Mass/Vol] 2.0 g/dL 3.2-5.0 [facility] Work Phone: Serum or plasma albumin/glob ulin mass ratioon 08-07-2021 Albumin/Globulin [Mass ratio] 0.5 {ratio} 0.9-2.4 [facility] Work Phone: Serum or plasma calcium jd urement (mass/volume)on 08-07-2021 Calcium [Mass/Vol] 8.0 mg/dL 8.5-10.1 [facility] Work Phone: Serum or plasma creatinine m easurement (mass/volume)on 08-07-2021 Creatinine [Mass/Vol] 0.78 mg/dL 0.55-1.02 [facility] Work Phone: Comment on above: The validity of the calculated GFR & GFRAA in patients over 70 years has not been determined. Clinical correlation is essential. Serum or plasma urea nitroge n measurement (mass/volume)on 08-07-2021 Urea nitrogen [Mass/Vol] 14 mg/dL 7-18 [facility] Work Phone: Thin prep Papanicolaou smear with manual screeningon 08-07-2021 Thin prep Papanicolaou smear with manual screening 15 U/L 15-37 [facility] Work Phone: Thin prep Papanicolaou smear with manual screening 7 5-15 [facility] Work Phone: Total cell counton 2 Cells counted Molgen (Bld/Tiss) [#] 100 MANUAL DIFF [facility] Work Phone: Basophil percentageon 2021 Basophil percentage 10-25 SEEN /hpf [facility] Work Phone: Bilirubin Test strip Ql (U)o n 08-06-2021 Bilirubin Ql (U) Negative Negative [facility] Work Phone: Culture, urineon 08-06-2021 Bacteria identified Cx Nom (U) Pseudomonas aeroginosa [facility] Work Phone: Ketones Test strip Ql (U)on 08-06-2021 Ketones Ql (U) Negative Negative [facility] Work Phone: Laboratory - Chemistry and C hemistry - challengeon 08-06-2021 Lipase [Catalytic activity/Vol] 96 U/L 73-393 [facility] Work Phone: Laboratory - Hematology and Cell countson 08-06-2021 Anisocytosis Ql (Bld) 1+ [facility] Work Phone: Macrocytes detectionon 08-06 Macrocytes Ql (Bld) 1+ [facility] Work Phone: Mucus LM Ql (Urine sed)on Mucus Ql (Urine sed) 0 SEEN /hpf [facility] Work Phone: Nitrite Test strip Ql (U)on 08-06-2021 Nitrite Ql (U) Negative Negative [facility] Work Phone: No Panel Informationon 08-06 SARS-CoV-2 Antigen (Rapid) [facility] Work Phone: Protein Test strip Ql (U)on 08-06-2021 Protein Ql (U) 15 mg/dl Negative [facility] Work Phone: Squamous epithelial cells de tection in urine sediment by light microscopyon 08-06-2021 Epithelial cells.squamous LM Ql (Urine sed) 0-5 SEEN /hpf [facility] Work Phone: Urine blood detectionon 07-12 RBC Ql (U) 250 /ul Negative [facility] Work Phone: RBC Ql (U) 10-25 SEEN /hpf [facility] Work Phone: Urine clarityon 08-06-2021 Clarity (U) Clear Clear [facility] Work Phone: Urine color determinationon 08-06-2021 Color (U) Yellow Yellow [facility] Work Phone: Urine glucose detectionon Glucose Ql (U) Normal mg/dl Normal [facility] Work Phone: Urine leukocyte esterase det ection by dipstickon 08-06-2021 Leukocyte esterase Test strip Ql (U) 500 /ul Negative [facility] Work Phone: Urine pHon 08-06-2021 pH (U) 6.0 [pH] [facility] Work Phone: Urine sediment bacteria coun t by microscopy (number/high power field)on 08-06-2021 Bacteria LM.HPF (Urine sed) [#/Area] 2 /[HPF] None Seen [facility] Work Phone: Urine specific gravity measu rementon 08-06-2021 Specific gravity (U) [Rel density] 1.015 [facility] Work Phone: Urobilinogen Auto test strip Ql (U)on 08-06-2021 Urobilinogen Ql (U) Normal mg/dl Normal [facility] Work Phone: Absolute lymphocyte counton 08-02-2021 Lymphocytes Auto (Unsp spec) [#/Vol] 1.31 10*3/uL 0.83-4.51 [facility] Work Phone: Basophil percentageon 2021 Basophils/100 WBC (Bld) 0.3 % 0-1 [facility] Work Phone: Bilirubin [Mass/Vol] 0.40 mg/dL 0.20-1.00 [facility] Work Phone: Comment on above: For patients on eltr ombopag therapy, use of Dimension [place] TBIL is not recommended. Chloride [Moles/Vol] 108 mmol/L 98-107 [facility] Work Phone: Eosinophils/100 WBC (Bld) 2.2 % 0-5 [facility] Work Phone: Glucose [Mass/Vol] 127 mg/dL 74-106 [facility] Work Phone: Comment on above: Fasting Glucose resu lt greater than or equal to 126 mg/dL suggests DIABETES MELLITUS per A.D.A. criteria. Neutrophils (Bld) [#/Vol] 11.6 10*3/uL 2.0-7.7 [facility] Work Phone: Neutrophils/100 WBC (Bld) 80.8 % 47-70 [facility] Work Phone: Potassium [Moles/Vol] 4.1 mmol/L 3.5-5.1 [facility] Work Phone: Protein [Mass/Vol] 5.7 g/dL 6.4-8.2 [facility] Work Phone: Sodium [Moles/Vol] 136 mmol/L 136-145 [facility] Work Phone: WBC (Bld) [#/Vol] 14.3 10*3/uL 4.4-11.0 [facility] Work Phone: [phone] Blood erythrocytes count (nu mber/volume)on 08-02-2021 RBC (Bld) [#/Vol] 3.02 10*6/uL 4.2-5.4 [facility] Work Phone: Blood hemoglobin measurement (mass/volume)on 08-02-2021 Hemoglobin (Bld) [Mass/Vol] 9.9 g/dL 12.0-15.0 [facility] Work Phone: [phone] Blood lymphocytes/100 leukoc yteson 08-02-2021 Lymphocytes/100 WBC (Bld) 9.2 % 19-41 [facility] Work Phone: Blood monocytes/100 leukocyt eson 08-02-2021 Monocytes/100 WBC (Bld) 7.0 % 0-10 [facility] Work Phone: Blood platelet mean volumeon 08-02-2021 Platelet mean volume (Bld) [Entitic vol] 11.0 fL 6.2-12.0 [facility] Work Phone: Determination of erythrocyte mean corpuscular volume (MCV)on 08-02-2021 MCV (RBC) [Entitic vol] 100.7 fL 81-99 [facility] Work Phone: Glucose Glucometer (BldC) [M ass/Vol]on 08-02-2021 Glucose [Mass/Vol] 172 mg/dL 70-110 [facility] Work Phone: Comment on above: MANAGEMENT OF PATIEN T CARE PER NURSING PROTOCOL Hematocrit Auto (Bld) [Volum e fraction]on 08-02-2021 Hematocrit (Bld) [Volume fraction] 30.4 % 37-47 [facility] Work Phone: Laboratory - Chemistry and C hemistry - challengeon 08-02-2021 ALP [Catalytic activity/Vol] 80 U/L 45-117 [facility] Work Phone: ALT [Catalytic activity/Vol] 23 U/L 13-56 [facility] Work Phone: CO2 [Moles/Vol] 22.0 mmol/L 21.0-32.0 [facility] Work Phone: Globulin (S) [Mass/Vol] 3.7 g/dL 2.2-4.2 [facility] Work Phone: Urea nitrogen/Creatinine [Mass ratio] 19.4 mg/mg 10-20 [facility] Work Phone: Laboratory - Hematology and Cell countson 08-02-2021 Erythrocyte distribution width (RBC) [Entitic vol] 51.8 fL 35.1-43.9 [facility] Work Phone: Erythrocyte distribution width (RBC) [Ratio] 13.9 % 11.6-14.6 [facility] Work Phone: Immature granulocytes/100 WBC (Bld) 0.500 % 0.0-0.9 [facility] Work Phone: Comment on above: IG% - Immature Granu locytes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 or Plasma [facility] Start: 12-21-2024 T4 free measurement [facility] Start: 12-21-2024 Thyroid stimulating hormone measurement [facility] Start: 12-21-2024 Thyroxine measurement [facility] Start: 03-11-2024 Covid-19 Vaccine ( season) Covid-19 Vaccine ( season) [facility] Start: 03-11-2024 Influenza vaccination Influenza Vacc ine (#1) [facility] Start: 02-16-2024 BP CONTROLLED (<130/80) BP CON TROLLED (<130/80) [facility] Start: 02-08-2024 BP CONTROLLED (<130/80) BP CON TROLLED (<130/80) [facility] Start: 11-18-2023 End: 11-18-2023 ambulatory 11/18/2023 3:30 PM EDT OT/PT/Speech Visit [facility] Occupation [facility] [address] [place] [address] Hermelinda Baker, OT/L Self pay driving [facility] Occupation [facility] Comment on above: Self pay driving Start: 11-15-2023 Procedure [facility] Start: 10-03-2023 Patient referral [facility] Work Phone: Start: 09-11-2023 Covid-19 Vaccine ( season) Covid-19 Vaccine ( season) [facility] Start: 08-01-2023 Patient referral [facility] Work Phone: Start: 07-11-2023 Advance Directive Discussion Advance Directive Discussion [facility] Start: 07-11-2023 Behavioral Health Screening Behavioral Health Screening [facility] Start: 05-26-2023 Procedure [facility] Start: 03-11-2023 Influenza vaccination INFLUENZA (#1) [facility] Start: 07-11-2022 ADVANCE DIRECTIVE DISCUSSION ADVANCE DIRECTIVE DISCUSSION [facility] Start: 07-11-2022 DEPRESSION ASSESSMENT DEPRESSION ASS ESSMENT [facility] Start: 06-28-2022 Procedure [facility] Work Phone: Start: 02-04-2022 COVID-19 VACCINE (6 - Pfizer series) COVID-19 VACCINE (6 - Pfizer series) [facility] Start: 12-31-2021 Pneumococcal Vaccine : 65+ (2 - PCV) Pneumococcal Vaccine: 65+ (2 - PCV) [facility] Start: 12-31-2021 Pneumococcal Vaccine : 65+ (2 of 2 - PCV) Pneumococcal Vaccine: 65+ (2 of 2 - PCV) [facility] Start: 12-31-2021 PNEUMOCOCCAL: 65+ (2 - PCV) PNEUMOCOCCAL: 65+ (2 - PCV) [facility] Start: 01-01-2021 Diabetes Screening Diabetes Screenin g [facility] Start: 12-30-2020 DIABETES SCREEN DIABETES SCREEN [facility] Start: 12-30-2020 Diabetes Screening Diabetes Screenin g [facility] Start: 2008 BONE DENSITY BONE DENSITY [facility] Start: 2008 Bone Density Screening Bone Density Screening [facility] Start: 2008 Screening for osteoporosis Bone Dens ity Screening [facility] Start: 1961 ANNUAL PCP TEAM FITNESS TRAINER [place] DISEASE VISIT ANNUAL PCP TEAM CHRONIC DISEASE VISIT [facility] Start: 1961 Anxiety Screening Anxiety Screening [facility] Start: 1961 BP CONTROLLED (<130/80) BP CON TROLLED (<130/80) [facility] Start: 1961 Depression Screening Depression Scre ening [facility] Start: 1961 SPIROMETRY SPIROMETRY [facility] Alanine aminotransfe rase [Enzymatic activity/volume] in Serum or Plasma [facility] Albumin [Mass/volume ] in Serum or Plasma [facility] ALERE STREP A TEST (AG) ALERE ST REP A TEST (AG) Lab Routine FUO (fever of unknown origin) Ordered: 06/13/2023 [facility] Work Phone: Comment on above: Ordered: 06/13/2023 Alkaline phosphatase [Enzymatic activity/volume] in Serum or Plasma [facility] Anion gap in Serum o r Plasma [facility] Anion gap measurement [facility] Bacteria identified in Urine by Culture URINE CULTURE Microbiology Routine FUO (fever of unknown origin) 06/13/2023 7:29 PM EST [facility] Work Phone: Bilirubin, total measurement [facility] BUN/Creatinine ratio [facility] BUN/Creatinine ratio [facility] Calcium [Mass/volume ] in Serum or Plasma [facility] Calcium [Mass/volume ] in Serum or Plasma [facility] Carbon dioxide, tota l [Moles/volume] in Central venous blood [facility] Carbon dioxide, tota l [Moles/volume] in Serum or Plasma [facility] Chloride [Moles/volu me] in Serum or Plasma [facility] Cholesterol [Mass/vo lume] in Serum or Plasma [facility] Cholesterol in HDL [Mass/volume] in Serum or Plasma [facility] Creatinine [Mass/vol ume] in Serum or Plasma [facility] Creatinine [Moles/vo lume] in Serum or Plasma [facility] Erythrocyte mean corpuscular volume determination [facility] Glucose [Mass/volume ] in Serum or Plasma [facility] Glucose [Mass/volume ] in Serum or Plasma [facility] Hematocrit [Volume Fraction] of Blood [facility] Hemoglobin [Mass/vol ume] in Blood [facility] Influenza virus A an d B RNA and SARS-CoV-2 (COVID-19) N gene panel - Respiratory specimen by PRIYANKA with probe detection COVID & INFLUENZA A/B NAAT, ROUTINE Microbiology Routine FUO (fever of unknown origin) Viral syndrome 06/13/2023 5:30 PM [facility] Work Phone: Leukocytes [#/volume ] in Blood [facility] Low density lipoprot ein cholesterol measurement [facility] Mean corpuscular hemoglobin concentration determination [facility] Mean corpuscular hemoglobin determination [facility] Measurement of renal function [facility] Measurement of renal function [facility] Neutrophil count [facility] Neutrophil percent differential count [facility] Patient Education Hyponatremia D c ED CYSTITIS Female Adult [facility] Work Phone: Patient referral [facility] Work Phone: Platelets [#/volume] in Blood [facility] Potassium [Moles/vol ume] in Serum or Plasma [facility] Potassium measurement [facility] Procedure [facility] Work Phone: Red blood cell count [facility] Red cell distributio n width determination [facility] Serum chloride measurement [facility] Sodium [Moles/volume ] in Serum or Plasma [facility] Sodium measurement [facility] Total cholesterol:HD L ratio measurement [facility] Total protein measurement [facility] Triglycerides measurement [facility] Urea nitrogen [Mass/volume] in Serum or Plasma [facility] Urea nitrogen [Mass/volume] in Serum or Plasma [facility] US Heart [facility] VLDL cholesterol measurement [facility] XR Ribs GE 3 Views a nd Chest PA [facility] Immunizations Immunization Date Immunization Notes Care Provider Fa [facility] 03-29-2024 influenza, high dose seasonal, preservative-free Dr. Dionne Magaña MD Work Phone: [facility] 07-01-2023 tetanus toxoid, redu stef diphtheria toxoid, and acellular pertussis vaccine, adsorbed Dr. Dionne Magaña Work Phone: [facility] 05-13-2023 Pfizer Covid-19 (Comirnaty) Dr. Dionne Magaña Work Phone: [facility] 04-13-2023 influenza, injectabl e, quadrivalent, preservative free Dr. Dionne Magaña Work Phone: [facility] 04-13-2023 influenza virus vacc ine, unspecified formulation X[place] Work Phone: [facility] 04-04-2023 RSV Adult BiValent (Abrysvo) Dr. Dionne Magaña Work Phone: [facility] 05-21-2022 influenza virus vacc ine, unspecified formulation DR MIKEY OROPEZA MD [facility] 05-21-2022 influenza, injectabl e, quadrivalent, contains preservative Manuel Wise PA-C Work Phone: [facility] 05-21-2022 influenza, injectabl e, quadrivalent, preservative free Dr. Dionne Magaña Work Phone: [facility] 05-21-2022 influenza, seasonal, injectable Dr. Oscar Adhikari Work Phone: [facility] 12-10-2021 SARS-CoV-2 mRNA (tozinameran) vaccine DR MIKEY OROPEZA MD [facility] 11-10-[address] MIKEY OROPEZA MD [facility] 07-24-2021 SARS-CoV-2 mRNA (tozinameran) vaccine DR MIKEY OROPEZA MD [facility] 07-22-2021 Covid (Pfizer) Dr. Oscar Howard sen Work Phone: [facility] 05-13-2021 tetanus toxoid, redu stef diphtheria toxoid, and acellular pertussis vaccine, adsorbed DR MIKEY OROPEZA MD [facility] 04-07-2021 influenza, injectabl e, quadrivalent, preservative free Dr. Dionne Magaña Work Phone: [facility] 04-07-2021 influenza, seasonal, injectable Dr. Oscar Adhikari Work Phone: [facility] 02-25-2021 influenza virus vacc ine, unspecified formulation DR MIKEY OROPEZA MD [facility] 02-25-2021 influenza, injectabl e, quadrivalent, contains preservative Manuel Wise PA-C Work Phone: [facility] 02-25-2021 influenza, injectabl e, quadrivalent, preservative free Dr. Dionne Magaña Work Phone: [facility] 02-25-2021 influenza, seasonal, injectable Dr. Oscar Adhikari Work Phone: [facility] 12-31-2020 pneumococcal polysaccharide vaccine, [address] MIKEY OROPEZA MD [facility] 12-31-[address] Olivia Adhikari Work Phone: [facility] Work Phone: 12-31-2020 pneumococcal vaccine , unspecified formulation Dr. Oscar Adhikari Work Phone: [facility] 11-07-2020 Covid (Pfizer) Dr. Oscar mace Work Phone: [facility] Comment on above: Result Comment: 2021: [id number] 10-17-2020 Covid (Pfizer) Dr. Oscar mace Work Phone: [facility] Comment on above: Result Comment: 2021: [id number] 08-11-2020 SARS-CoV-2 mRNA (tozinameran) vaccine DR MIKEY OROPEZA MD [facility] 07-18-2020 tetanus toxoid, redu stef diphtheria toxoid, and acellular pertussis vaccine, adsorbed DR MIKEY OROPEZA MD [facility] 05-27-[address] Olivia Adhikari Work Phone: [facility] Work Phone: 05-27-2020 pneumococcal vaccine , unspecified formulation Dr. Oscar Adhikari Work Phone: [facility] 02-28-2020 influenza virus vacc ine, unspecified formulation DR MIKEY OROPEZA MD [facility] 02-28-2020 influenza, injectabl e, quadrivalent, contains preservative Manuel Wise PA-C Work Phone: [facility] 02-28-2020 influenza, injectabl e, quadrivalent, preservative free Dr. Dionne Magaña Work Phone: [facility] 02-28-2020 influenza, seasonal, injectable Dr. Oscar Adhikari Work Phone: [facility] 06-28-[address] MIKEY OROPEZA MD [facility] 04-26-2019 tetanus toxoid, redu stef diphtheria toxoid, and acellular pertussis vaccine, adsorbed DR MIKEY OROPEZA MD [facility] 04-26-[address] MIKEY OROPEZA MD [facility] 10-23-[address] MIKEY OROPEZA MD [facility] 09-05-2018 influenza, injectabl e, quadrivalent, preservative free Dr. Dionne Magaña Work Phone: [facility] 09-05-2018 influenza, seasonal, injectable Dr. Oscar Adhikari Work Phone: [facility] 05-04-2017 tetanus toxoid, redu stef diphtheria toxoid, and acellular pertussis vaccine, adsorbed DR MIKEY OROPEZA MD [facility] 08-19-2011 pneumococcal polysaccharide vaccine, [address] MIKEY OROPEZA MD [facility] Payers Date Payer Category Payer Self-pay [id number] 2023 Medicare [id number] 2023 Unknown [id number] 2015 Medicare [id number] [id number]. [id number] 2015 Medicare [id number] 1945 Unknown [id number] 2.16.840.1.488263.3.579.2.627 1945 Unknown [id number] 2.16.840.1.004771.3.579.2.627 1945 Unknown [id number] 2.16.840.1.616568.3.579.2.627 Private Health Insurance [facility] [id number] Unknown [id number] Unknown [id number] Unknown AARP [facility] ADV [id number] Unknown [id number] 2.16.840.1.615937.3.579.2.462 Unknown [id number] 2.16.840.1.562936.3.579.2.462 Unknown [id number] 2.16.840.1.955136.3.579.2.462 Unknown [id number] 2.16.840.1.421173.3.579.2.462 Unknown [id number] 2..840.1.714554.3.579.2.462 Unknown [id number] 2..840.1.425043.3.579.2.462 Unknown [id number] 2.16.840.1.166442.3.579.2.462 Unknown [id number] 2.16.840.1.029702.3.579.2.462 Unknown [id number] 2.840.1.683115.3.579.2.462 Unknown [id number] 2.840.1.362851.3.579.2.462 Unknown [id number] 2.16.840.1.382510.3.579.2.462 Unknown [id number] 2.16.840.1.483895.3.579.2.462 Unknown [id number] 2.16.840.1.036629.3.579.2.462 Unknown [id number] 2.16840.1.816432.3.579.2.462 Unknown [id number] 2..840.1.669735.3.579.2.462 Unknown [id number] 2.16.840.1.818294.3.579.2.462 Unknown [id number] 2.16.840.1.178318.3.579.2.462 Unknown [id number] 2.16.840.1.617273.3.579.2.462 Unknown [id number] 2.16.840.1.885672.3.579.2.462 Unknown [id number] 2.16.840.1.484561.3.579.2.462 Unknown [id number] 2.16.840.1.355331.3.579.2.462 Unknown [id number] 2.16.840.1.139352.3.579.2.462 Unknown [id number] 2.16.840.1.301214.3.579.2.462 Unknown [id number] 2.16.840.1.263449.3.579.2.462 Unknown [id number] 2.16.840.1.914750.3.579.2.462 Social History Date Type Detail Facility [facility] Work Phone: Start: 08-06-2021 End: 09-29-2023 Tobacco smoking status NHIS Unknown if ever smoked [facility] Start: 06-19-2020 None [facility] Start: 11-13-2020 Homeless [facility] Start: 06-19-2020 Non-smoker [facility] Start: 1945 Sex Assigned At Female W [facility] Start: 06-22-2022 End: 05-31-2024 Tobacco smoking status Never smoked tobacco (finding) [facility] Sex Assigned At [facility] Start: 10-13-2015 Tobacco use and exposure Smokeless tobacco non-user [facility] Start: 01-31-2023 End: 02-07-2023 Alcohol intake Current non-drinker of alcohol (finding) [facility] Start: 01-31-2023 End: 07-31-2023 History of Social function [facility] Start: 01-31-2023 End: 02-07-2023 Tobacco use panel [facility] Start: 1945 Sex Assigned At Not on file [facility] National Score (1-100), lower number is lower risk 64 [facility] Start: 06-19-2020 Lives Lives [facility] Medical Equipment Procedure Code Equipment Code Equipment Origin al Text Equipment Identifier Dates Minimally invasive total replacement of hip joint by anterior approach ([id number]) Ceramic femoral head prosthesis ()[id number] FDA Start: 01-21-2021 Minimally invasive total replacement of hip joint by anterior approach ([id number]) Coated hip femur prosthesis, modular ()[id number] FDA Start: 01-21-2021 Minimally invasive total replacement of hip joint by anterior approach ([id number]) Non-constrained polyethylene acetabular liner ()[id number] TV FDA Start: 01-21-2021 Minimally invasive total replacement of hip joint by anterior approach ([id number]) Acetabular shell ()[id number] FDA Start: 01-21-2021 Insertion, spinal cord stimulator, [...] Start: 02-22-2020 PATCH,AMNION [id number] FDA Start: 06-17-2020 ([id number]) Uncoated shoulde r humeral stem prosthesis ()[id number] ()[id number] [id number] FDA Start: 07-29-2021 ([id number]) Reverse shoulder prosthesis base plate ()[id number] NT FDA Start: 07-29-2021 ([id number]) Stem-fixed humer al head prosthesis ()[id number] ()[id number] FDA Start: 07-29-2021 ([id number]) Stem-fixed humer al head prosthesis ()[id number] [id number] FDA Start: 07-29-2021 ([id number]) Stem-fixed humer al head prosthesis ()[id number] ()[id number] A5 FDA Start: 07-29-2021 (336692399) Reverse shoulder prosthesis head ()[id number] ()[id number] 2N FDA Start: 07-29-2021 ([id number]) Total shoulder prosthesis ()[id number] ()[id number] FDA Start: 07-29-2021 ([id number]) Metallic reverse shoulder prosthesis cup ()[id number] ()[id number] 2A FDA Start: 07-29-2021 Medtronic Intell is [...] 09-17-2023 Functional Status Independent Narayan [place] [facility] 09-17-2023 Functional Status Repositions self [facility] 06-20-2023 Functional Status ID band on, Call device within reach, Bed in low position, Wheels locked, Upper/Half-Length side-rails up, Visitor at bedside, Safety level maintained [facility] 07-09-2022 Functional Status Room check performed [facility] 07-09-2022 [facility] Functional Status Supervised 1 Narayan [facility] 07-09-2022 Functional Status Narayan Steinberg [facility] 07-09-2022 Functional Status Activity Statu s ADL Repositions self, Sleeping [facility] 07-08-2022 Functional [facility] Functional Status Narayan Steinberg [facility] 07-08-2022 Functional Status Min A Narayan [facility] 07-08-2022 Functional Status Narayan Steinberg [facility] 07-08-2022 Functional Status Linen Change Done [facility] 07-07-2022 Functional Status SCD Removed/Of f bilateral knee [facility] 07-07-2022 Functional Status None Narayan Steinberg [facility] 07-07-2022 Functional Status Lunch Percent 75 [facility] 07-07-2022 Functional Status Narayan Steinberg [facility] 07-07-2022 Functional Status Single level home [facility] 07-07-2022 Functional Status SCD On/Re-appl ied bilateral knee [facility] 07-07-2022 Functional Status Narayan Steinberg [facility] 07-06-2022 Functional Status Narayan Steinberg [facility] 07-06-2022 Functional Status Narayan Steinberg [facility] 07-06-2022 Functional Status Dinner Percent 75 [facility] 07-06-2022 Functional Status [facility] 07-06-2022 Functional Status ice chips and sips take n [facility] 07-06-2022 [facility]-06[facility] Functional Status [facility] 06-22-2022 Functional Status Sensory Deficits None A [facility] 12-01-2021 Functional status Chair [facility] Work Phone: 08-20-2021 Functional status Activity Ability Indepe ndent [facility] Work Phone: 08-16-2021 Functional status Patient Activity Chair [facility] Work Phone: 08-14-2021 Functional status Rolling Walker [facility] Work Phone: 08-07-2021 Functional status Patient Activity Chair [facility] Work Phone: 08-07-2021 Functional status Standby Assist [facility] Work Phone: 08-02-2021 Functional status Activity Abili ty With Assist of 1 [facility] Work Phone: 08-01-2021 Functional status Patient Activi ty Ambulates;Chair;Bedside Commode [facility] Work Phone: 07-31-2021 Functional status None [facility] Work Phone: Mental Status Date Assessment Result Facility 09-17-2023 Mental Status Orientation Oriented x 4 [facility] 06-20-2023 Mental Status Oriented x 4 [facility] 07-09-2022 Mental Status Orientation Oriented x 4 [facility] 07-09-2022 Mental Status [facility] 07-09-2022 Mental Status [facility] 07-08-2022 Mental Status Identifies self, Not oriented to place [facility] 07-07-2022 Mental Status [facility] 12-01-2021 Cognitive function Voice/Name [facility] Work Phone: 08-20-2021 Cognitive function Voice/Name [facility] Work Phone: 08-07-2021 Cognitive function Appropriate;Cooperativ e [facility] Work Phone: 08-07-2021 Cognitive function Voice/Name [facility] Work Phone: 08-02-2021 Cognitive function Voice/Name [facility] Work Phone: Clinical Notes 07-06-2022 to 04-24-2025 Note Date & Type Note Facility 04-24-2025 Progress note [facility] 04-24-2025 Progress note Note Date/Time April 24, 2025 4:03pm [facility] H ealt System [facility] [address] [place] [address] OFFICE VISIT Date of Service: 04/24/25 MR#: [id number] Acct: [id number] Name: JERRELL STRICKLAND Rep #: [id number] : 1945 Provider: Dr. Dusty Harman MD Age/Sex: 79/F Location: [facility] Status: Signed Intake Vital Signs 01/08/25 07:59 [...] denosumab 60 mg/mL subcutaneous 60 mg subcut [id number] #1 mL 01/17/25 04/24/25 Rx syringe (Prolia) [...] occupational status: retired current occupation: worked at [employer] current occupational exposures/hazards: No pets and animals: [...] Cosigner Signature: Date (if applicable) CC: ~ [facility] [employer] [facility] Work Phone: 1(124) 808-700707-30-2025 Radiology Diagnostic study note [facility] Imaging Services [address] [place] [address] [id number] CTA Head AND Neck W/ Contrast MR#: [id number] Acct: [id number] Name: MARCO ASARAHJERRELL D Rep #: [id number] : 1945 F 79 From: Denzel Jordan MD PCP: Dr. Dionne Magaña MD Status: REG CLI Study:CTA Head AND Neck W/ Contrast Date of E xam: 02/04/25 Exam# [id number] Ordering Dr: Edwin Cole PROCEDURE: CTA HEAD [...] RIGHT Vertebral: Unremarkable. LEFT Vertebral: Unremarkable. Anatomy: [place] [employer] [place] anatomy is normal. Aneurysm or [...] a marked degree of stenosis. Reading Location: [id number] CC: VICTOR M Jimenez; Dr. Dionne Magaña MD ~ Supervising Producer: Signed [facility]07-01-2025 Evaluation note* Diagnosis Onset Date Resolution Status [...] carotid stenosis chronic Oct joo 2024 2:42pm [facility] Work Phone: [phone]) [phone] Evaluation note* Diagnosis Onset Date Resolution Status [...] 2025 7:51am Prediabetes noneactive January 08 7:51am [facility] Work Phone: 1(571) 996-693003-23-2025 Evaluation note* Diagnosis Onset Date Resolution Status [...] 2025 7:51am Prediabetes noneactive January 08 7:51am [facility] Work Phone: 1(541) 528-125903-06-2025 Evaluation note* Diagnosis Onset Date Resolution Status Admit Date Acquired hypothyroidism acute M arch 2024 2:15pm Essential hypertension acute [facility] 2024 2:15pm Impaired mobility acute September 132024 2:15pm Chronic back pain greater th an 3 months duration noneactive September 13 2:15pm Chronic insomnia noneactive September 2:15pm Moderate persistent asthma i n adult without complication noneactive September 13, 2024 2:15pm Prediabetes noneactive September 13 2:15pm Maxillary sinusitis acute September 30, 2024 12:34pm Fecal incontinence acute October 16, 2024 12:30pm [facility] Work Phone: 1(801) 970-281303-06-2025 Evaluation note* Diagnosis Onset Date Resolution Status Admit Date Acquired hypothyroidism acute M arch 2024 2:15pm Essential hypertension acute [facility] 2024 2:15pm Impaired mobility acute September 132024 2:15pm Chronic back pain greater th an 3 months duration noneactive September 13 2:15pm Chronic insomnia noneactive September 2:15pm Moderate persistent asthma i n adult without complication noneactive September 13, 2024 2:15pm Prediabetes noneactive September 13 2:15pm Maxillary sinusitis acute September 30, 2024 12:34pm Fecal incontinence acute October 16, 2024 12:30pm Hypotension acute December 21 7:26am [facility] Work Phone: 1(929) 562-803803-06-2025 Evaluation note* Diagnosis Onset Date Resolution Status Admit Date Acquired hypothyroidism acute M arch 2024 2:15pm Essential hypertension acute [facility] 2024 2:15pm Impaired mobility acute September 132024 [...] 2025 7:51am Prediabetes noneactive January 08 7:51am [facility] Work Phone: 1(380) 931-355906-15-2024 NoteHNO ID: [id number] Author: NOELLE GARCIA APRN.DIVING FISHER Service: ? Author Type: Nurse Practitioner Type: Progress Notes Filed: 12/30/2023 12:47 Note Text: This note was created using GOGETMi / ?.??. Subjective Jerrell Strickland is a 78 year [...] - PREDNISONE 10 MG TABLET Noelle Garcia [facility] History of Present illness Narrative* Noelle Garcia APRN.DIVING FISHER - 12/24/2023 3:09 PM EDT This note was created using GOGETMi / ?.??. Subjective Jerrell Strickland is a 78 year [...] palpation. Assessment and Plan [facility] NoteHNO ID: [id number] Author: ELIZABETH SHAHID APRN.SATISH Service: Hospital Medicine Author Type: Nurse Practitioner Type: Progress Notes Filed: 12/05/2023 13:48 Note Text: DEPARTMENT OF HOSPITAL MEDICINE PROGRESS NOTE SERVICE DATE: 12/05/2023 SERVICE TIME: 12:23 PM Hospital Medicine/Primary Attending: Vinicius Bolivar MD NIGHT AND WEEKEND COVERAGE: [facility] COVERAGE: Days: [phone], please page Elizabeth Shahid for patient issues. Nights: [phone], please page Team [facility] 4: G/H 8th floor: 98303; Non 8th floor [address] Subjective INTERVAL HPI: Transferred to [facility] from [facility] for management of Hyponatremia. Pt pleasant, ambulating [...] and Airways Line Duration Peripheral 12/02/23 1310 [facility] Short Left Forearm 22 Gauge 2 [...] repair, and CVA (08/2023) who presented to [facility] ED on 12/01/23 per recommendation of PCP [...] additional workup for trans (more content not included)...[facility]05-26-2024 NoteHNO ID: [id number] Author: RUSTY WALL MD Service: Neurosurgery Author [...] repair, 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 Transferred to [facility] Main NS on 12/02/23 after OSH [...] MD MPH PGY-4 Neurological Surgery 12:57 PM 12/04/23[facility]05-[facility] NoteHNO ID: [id number] Author: SANDIE BARON APRN.DIVING FISHER Service: Hospital Medicine Author Type: Nurse Practitioner Type: Progress Notes Filed: 12/04/2023 14:21 Note Text: DEPARTMENT OF HOSPITAL MEDICINE PROGRESS NOTE SERVICE DATE: 12/04/2023 SERVICE TIME: 11:15 AM Hospital Medicine/Primary Attending: Vinicius Bolivar MD NIGHT AND WEEKEND COVERAGE: [facility] COVERAGE: Days: [phone], please page Sandie Baron for patient issues. Nights: [phone], please page Team [facility] 4: G/H 8th floor: 43672; Non 8th floor [address] Subjective INTERVAL HPI: Transferring to [facility] from [facility] for hyponatremia Patient sitting up in chair, [...] Line Duration Peripheral 12/02/[address] [facility] Short Left Forearm 22 Gauge 2 days Peripheral 12/02/23 1310 [facility] Short Left Forearm 20 Gauge 2 [...] repair, 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 Transferred to [facility] Main NS on 12/02/23 after OSH [...] the ED prompting her to present to [facility] ED. 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 Transferred to [facility] Main NSGY on 12/02/23 after OSH [...] Surya Ramirez MD PGY-3, Neurological Surgery Pager: [phone] Neurosurgery space systems operations manager: [phone] 7:51 AM 12/03/23 Please page [phone] on weekends, after 6pm, or if I am not reachable at the above numberOhiohealth [facility]05-24-2024 NoteHNO ID: [id number] Author: KISHAN LEW Tech Service: Radiology Author [...] PATIENT PRESENTS WITH AN IMPLANTABLE OR ATTACHED [employer] COUNSELOR: No RADIOLOGY DEPARTMENT: CT; Exam(s) Completed: Brain PERIPHERAL IV DATA: Not applicable SIGNED BY: Debbie Raymundo December 02, 2023 3:53 [facility]05-10-2024 NoteHNO ID: [id number] Author: HERMELINDA BAKER, OT/L Service: ? 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 the same. Jerrell indicated she would take this therapist to locations that she normally travels to around [facility]. ENVIRONMENT: Location: Residential, Urban, Interstate, Rural, Parking [...] demonstrated functional performance with driving all over [place] including to all of the locations she [...] this report indicates the ability of the scoop driver to operate a motor vehicle on [...] ROUTES THAT SHE IS FAMILIAR WITH IN [facility] WHILE AVOIDING LONGER DISTANCES SHE IS ABLE TO; DO NOT DRIVE AT NIGHT/AVOID LOW VISIBILITY CONDITIONS; DO NOT DRIVE WHEN NOT FEELING WELL; MINIMIZE PASSENGER TIME SHE FEELS IS APPROPRIATE (I.E. HER DAUGHTER) WHILE MAINTAINING ONGOING CARE AND ASSIST FOR HER APPEARS TO BE INCREASE STRESS FOR (more content not included)...[facility]05-10-2024 History of Present illness Narrative* Hermelinda Baker [...] therapist traveled out to Jerrell's home in [place] for completion of this assessment while she drove the scoop driver rehabilitation vehicle which is [address] [place] [address] [facility] for the same. Jerrell indicated she would [...] demonstrated functional performance with driving all over [place] including to all of the locations she [...] this report indicates the ability of the scoop driver to operate a motor vehicle on [...] ROUTES THAT SHE IS FAMILIAR WITH IN [facility] WHILE AVOIDING LONGER DISTANCES SHE IS ABLE [...] 60 Drivers Follow Up per 60 min (11090): 1:1 time 60 min Total time: 60 minutes Hermelinda Baker, OT/L, CDRS, LDI Certified Milk Route Deliverer Juvenile Officer Episode Visit Count: 2 Therapist That Will [...] Date: 10/28/23 to 11/27/2023 and treatment included: Milk Route Deliverer rehab evaluation. Goals for Episode of Care created on 10/28/23 through 11/20/23 1.Patient will complete clinical training and/or testing at Modified [place] level in preparation for ongoing safe driving. 2.Patient will complete functional mobility task with good safety awareness during behind the wheelassessment. JOSE DANIEL Feng, CDRS, LDI documented in [facility]24 Telephone encounter Note * Telephone Encounter - [...] behind the wheel assessment scheduled for 11/18/23. [facility]05-02-2024 Miscellaneous Notes* Telephone Encounter - Hermelinda Baker [...] assessment scheduled for 11/18/23. documented in this encounterDayton [facility]04-19-2024 NoteHNO ID: [id number] Author: HERMELINDA BAKER OT/L Service: ? Author [...] her medications. She does live in a shelter center with options for increasing assist. Her [...] of a concern which has resulted in [place] [facility] physician statement being required (likely the reason why this assessment was ordered). Her daughter also shared that Jerrell's sister who is 4 years older has Alzheimer's dementia and is in a nursing facility. Functional Limitations: heavy exertion Prior Level of Function: Required assistance Home Environment Patient Lives With: Self/Alone Assistance Available: PRN, Community-Based Health Examining Officer Home Type: Apt/Condo Transportation: Car (2022) Patient [...] With: Self/Alone Assistance Available: PRN, Community-Based Health Examining Officer Home Type: Apt/Condo Transportation: Car (2022) Pain Level: 0 Pain Location: (chronic back pain which she takes [place] for each night while also gets injections [...] while last drove to this appointment State: [place] License/Permit #: [id number] Expires: 07/14/27 Restrictions: corrective lenses 5 Yr. [...] SENSORIMOTOR ASSESSMENT: Fausto gutierrez (more content not included)...[facility]04-[facility] History of Present illness Narrative* Hermelinda Baker [...] managing/overseeing her medications.She does live in a shelter center with options for increasing assist. Her [...] of a concern which has resulted in [place] [facility] physician statement being required (likely the reason why this assessment was ordered). Her daughter also shared that Jerrell's sister who is 4 years older has Alzheimer's dementia and is in a nursing facility. Functional Limitations: heavy exertion Prior Level of Function: Required assistance Home Environment Patient Lives With: Self/Alone Assistance Available: PRN, Community-Based Health Examining Officer Home Type: Apt/Condo Transportation: Car (2022) Patient [...] With: Self/Alone Assistance Available: PRN, Community-Based Health Examining Officer Home Type: Apt/Condo Transportation: Car (2022 Ashwini Rivera) Pain Level: 0 Pain Location: (chronic back pain which she takes [place] for each night while also gets injections [...] while last drove to this appointment State: [place] License/Permit #: [id number] Expires: 07/14/27 Restrictions: corrective lenses 5 Yr. [...] Driving: Right UE: Sufficient Left UE: Sufficient Vocational Training Director: Sufficient Right LE: Sufficient Left LE: Sufficient Sitting Balance: Sufficient Head / Neck: decreased for extension and rotation to the left Ambulation: Sufficient Transfers: Sufficient Loading of Device: NA ASSESSMENT OF SENSORIMOTOR FUNCTION: Compatible with Driving while does have chronic back pain/takes [place] for at night, has numbness/tingling in BLE's [...] visual holt (although meets minimal requirements for [place]), slowed oculomotor skills and impaired convergence COGNITIVE [...] hearing and auditory attention skills Visual Scanning/Attention: [place] Making Part B (sec): 263 sec (moderate v/c's required for completion) 50th percentile norm for age group: 70-79; Part A: 80 seconds, Part B: 196 seconds Rigoberto Clock Drawing Test: Jerrell Strickland correctly included 7/8 criteria for this test. She failed to include or correctly place: the numbers equally spaced, or nearly so, from the edge of the [place] According to The Physician's Guide to Assessing [...] raw score and average visual processing speed [place] Milk [employer] Deliverer Simulator: Simple Brake Reaction Time: Average Distance: 70.7 feet (Normal = 60 feet) R foot only pedal operation method Education: Education Learning Preferences: Explanation Barriers: Cognitive Limitations Learning/educational needs: Safety Education Provided: Yes, see treatment interventions for education provided Education Provided To: Patient, Family (daughter present) Education Mode/Type: Explanation/Discussion Response to Education/Teach Back: States/Identifies TREATMENT: Evaluation Self-Residential Management: 1: refer to details in this [...] this report indicates the ability of the scoop driver to operate a motor vehicle on [...] Recommended Complete Eye Exam: as indicated by field professional while did discuss her asking about if trifocals necessary for her in the future Prognosis: Fair Fair due to: clinical presentation, multiple co- morbidities, advanced age, limited support system,memory deficits, poor understanding of deficits Goals for Episode of Care created on 10/28/23 through 11/20/23 1.Patient will complete clinical training and/or testing at Modified [place] level in preparation for ongoing safe driving. 2.Patient will complete functional mobility task with good safety awareness during behind the wheelassessment. Planned Interventions, Frequency, and Duration: Current Frequency: 1 visit Duration: 1 visit Total Number of Visits Planned: 1 Patient to be see for Milk Route Deliverer rehab evaluation, Patient/Family/Caregiver Education PLAN FOR NEXT VISIT: behind the wheel assessment Patient demonstrates good understanding of plan of care and treatment. The above goals and plan of care were discussed and agreed upon by patient/family. Billing: Total Treatment Time Minutes (timed/untimed) 120 Evaluation - Moderate Complexity (18914) Self Care / Home Management (90963): 1:1 time: 30 minutes (2 units: 23-37 mins) Community /Work Re-integration (82419): 1:1 time: 30 minutes (2 units: 23-37 mins) Total time: 120 minutes JOSE DANIEL Feng, CDRS, LDI Certified Milk Route Deliverer Juvenile Officer [facility] Hospital Discharge instructions Patient Education 09/17/2023 18:24:56 [...] swelling, or pus coming from any wound [phone] [employer]. [address] [place] [address], [place] [address]. All rights reserved. This information is not intended as a substitute for professional medical care. Always follow yourhealthcare professional's instructions. Follow Up Care 09/17/2023 16:18:56 With:Go to emergency room if symptoms worsen Address:Unknown When:2-4 days With:DIONNE MAGAÑA MD Address: [facility] [address] [place] [address]- When:2-4 days [facility] Note Discharge Instructions Thank you for allowing [facility] to assist you with your healthcare needs. [...] Within 2-4 days Where: [facility] [address] [place] [address]- Allergies NKA Medications Please ask your primary [...] swelling, or pus coming from any wound [phone] [employer]. [address] [place] [address]. All rights reserved. This information is not intended as a substitute for professional medical care. Always follow yourhealthcare professional's instructions. Additional Information VACCINATE! IT SAVES LIVES! Members of the community who have not yet received the COVID-19 vaccine and would like to receive it can visit one of [facility] vaccine clinics. There are many vaccine clinic locations within the [facility]. For locations and available times, please visit [email or web address] It is important to note that some COVID mobile vaccine clinics are held outdoors and may be canceled in rainy or stormy conditions. To learn more about pediatric vaccinations (ages 5-11), we invite you to visit the [facility] webpage. [email or web address]://www.[email or web address]/pages/[email or web address]-Prmapciztup-Iupbccuylv-Bktrd-Pee stions.htmlTo learn more about the COVID-19 vaccine, we invite you to visit the CDC website for a list of frequently asked questions. https://www.cdc.gov/coronavirus/2019-ncov/vaccines/faq.html [facility] [employer] Patient Portal Access Instructions: Stay connected with your healthcare team and access your personal medical information anytime with the [email or web address] Patient Portal. If you would like a full copy of your medical records please contact the [facility] Medical Records Department Tuesday through Tuesday between 8a.m. and 4:30p.m. Please follow the directions below to access the portal: 1.Access the email account you provided upon registration to the hospital.2.Look for an invitation email from [facility].3.Open the email and access the invitation link: Accept Invitation to [email or web address].Fill in the required holt to create your account. Sign into [email or web address] with your username and password that you [...] you will allow to register on the [email or web address] Patient Portal for access to your information. You can also access the [email or web address] Patient Portal on the Oktalogic. Simply click on Health Records under SavySwapta and then click on the [employer] logo. HOW TO SAFELY DISPOSE OF PRESCRIPTION [...] Call your local pharmacy or go to [email or web address] to find one close to you.3.Make use of household items: Use cat litter or old coffee grounds to dispose medications if other options arenot available. Mix your drugs with these household products, seal them in an airtight container andthrow it into the garbage. Call [facility]: [phone] to be sure your drugs can be [...] am aware that I should contactmy doctor. Patient/Utilities Equipment Repairer Signature: Date/Time: Relationship to Patient: Witness Name/Signature: Date/Time: [facility]03-09-2024 Note ORIGINAL EXAMINATION: TWO XRAY VIEWS [...] Date: 09/17/2023 5:59:01 PM [facility] ORIGINAL EXAMINATION: TWO XRAY [...] Sign Date: 09/17/2023 6:19:53 PM Ordering Provider: [facility]03-09-2024 Note ORIGINAL EXAMINATION: CT OF THE THORACIC [...] degenerative changes are present. 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 Multilevel neural [...] Sign Date: 09/17/2023 5:51:29 PM Ordering Provider: [facility]01-17-2024 NoteHNO ID: [id number] Author: J LUIS SANCHES APRN.DIVING FISHER Service: ? Author Type: Nurse Practitioner Type: Progress Notes Filed: 07/27/2023 15:34 Note Text: Subjective Came in with complaints of sore right outer calf. Patient says there is some redness around it. Patient's not sure how long she has had it. Patient denies any numbness tingling loss of feeling fever chills or nausea. The history is provided by the patient. No tail trimmer was used. Review of Systems Constitutional: Negative. [...] Date APPENDECTOMY HYSTERECTOMY HX partial- done in [place] LAMINECTOMY W/O FFD 07/12 VERT SEG LUMBAR [...] with this care plan J Luis Sanches APRN.[facility]01-05-2024 NoteHNO ID: [id number] Author: FRANCOISE VALENTINO PA Service: ? Author Type: Physician Senior Power Plant Operator Type: Progress Notes Filed: 07/15/2023 09:26 Note Text: This note was created using SimilarSites.comriter. Subjective Jerrell Strickland is a 78 year [...] Date APPENDECTOMY HYSTERECTOMY HX partial- done in [place] LAMINECTOMY W/O FFD 07/12 VERT SEG LUMBAR [...] and questions were answered (more content not included)...[facility]12-11-2023 Hospital Discharge instructions Patient Education 06/20/2023 13:52:14 [...] some information about medicine: You may use smnq-vvh-ynfrkmf medicine such as acetaminophen or ibuprofen to [...] re-open Bleeding not controlled by direct pressure [phone] [employer] [place] [address]. All rights reserved. This information is not intended as a substitute for professional medical care. Always follow yourhealthcare professional's instructions. Follow Up Care 06/20/2023 13:22:32 With:DIONNE MAGAÑA MD Address: [address] [place] [address]- When:2-4 days [facility] 12-11-2023 Note Discharge Instructions Thank you for allowing [facility] to assist you with your healthcare needs. [...] Within 2-4 days Where: [facility] [facility] [address] [place] [address]- Allergies NKA Medications Please ask your primary [...] some information about medicine: You may use iwcv-fha-assusje medicine such as acetaminophen or ibuprofen to [...] re-open Bleeding not controlled by direct pressure [id number] [employer]. [address] [place] [address], [place] [address]. All rights reserved. This information is not intended as a substitute for professional medical care. Always follow yourhealthcare professional's instructions. Additional Information VACCINATE! IT SAVES LIVES! Members of the community who have not yet received the COVID-19 vaccine and would like to receive it can visit one of [facility] vaccine clinics. There are many vaccine clinic locations within the [facility]. For locations and available times, please visit [email or web address]/. It is important to note that some COVID mobile vaccine clinics are held outdoors and may be canceled in rainy or stormy conditions. To learn more about pediatric vaccinations (ages 5-11), we invite you to visit the [facility] webpage. https://www.[email or web address].org/pages/2185-Micpc-Cophssqpxqp-Jtgktqclee-Xhpsy-Ial stions.htmlTo learn more about the COVID-19 vaccine, we invite you to visit the CDC website for a list of frequently asked questions. https://www.cdc.gov/coronavirus/2019-ncov/vaccines/faq.html [facility] [employer] Patient Portal Access Instructions: Stay connected with your healthcare team and access your personal medical information anytime with the [email or web address] Patient Portal. If you would like a full copy of your medical records please contact the [facility] Medical Records Department Tuesday through Tuesday between 8a.m. and 4:30p.m. Please follow the directions below to access the portal: 1.Access the email account you provided upon registration to the [facility].2.Look for an invitation email from [facility].3.Open the email and access the invitation link: Accept Invitation to [email or web address].Fill in the required holt to create your account. Sign into [email or web address] with your username and password that you [...] you will allow to register on the [email or web address] Patient Portal for access to your information. You can also access the [email or web address] Patient Portal on the VHX ellis. Simply click on Health Records under appssavvy and then click on the Narayan logo. [...] Call your local pharmacy or go to [email or web address] to find one close to you.3.Make use of household items: Use cat litter or old coffee grounds to dispose medications if other options arenot available. Mix your drugs with these household products, seal them in an airtight container andthrow it into the garbage. Call [facility]: [phone] to be sure your drugs can be [...] am aware that I should contactmy doctor. Patient/Utilities Equipment Repairer Signature: Date/Time: Relationship to Patient: Witness Name/Signature: Date/Time: [facility]12-07-2023 Miscellaneous Notes* Telephone Encounter - Sarah [...] PCP. Giovana Patterson CNP [facility] Miscellaneous Notes* Telephone Encounter - Maylin Martinez [...] AM EST ----- Message from Giovana Patterson APRN.DIVING FISHER sent at 06/14/2023 7:14 AM EST ----- Please advise patient the COVID and flu test was negative. documented in this encounterDay[facility]12-04-2023 Miscellaneous Notes* Addendum Note - Alex Law MD - 06/13/2023 7:05 PM ESTAddended by: ALEX LAW on: 06/13/2023 07:05 PM Modules accepted: Orders documented in this encounterDay[facility]12-04-2023 NoteHNO ID: [id number] Author: Ai Moura APRN.DIVING FISHER Service: ? Author Type: Nurse Practitioner Type: [...] Date APPENDECTOMY HYSTERECTOMY HX partial- done in [place] LAMINECTOMY W/O FFD 07/12 VERT SEG LUMBAR [...] No rash. Neurological: Ment (more content not included)...[facility]12-04-2023 History of Present illness Narrative* Ai Moura APRN.DIVING FISHER - 06/13/2023 5:18 PM EST Subjective HPI [...] Date APPENDECTOMY HYSTERECTOMY HX partial- done in [place] LAMINECTOMY W/O FFD 07/12 VERT SEG LUMBAR [...] & INFLUENZA A/B NAAT, ROUTINE Ai Moura APRN.DIVING FISHER documented in this encounterDayton [facility] Center08-08-2023 NoteHNO ID: [id number] Author: Mali Ramirez APRN.SATISH Service: ? Author [...] by the patient and a relative. No tail trimmer was used. Animal Bite The incident occurred [...] Date APPENDECTOMY HYSTERECTOMY HX partial- done in [place] LAMINECTOMY W/O FFD 07/12 VERT SEG LUMBAR [...] for tingling, focal weakness, (more content not included)...[facility]08-08-2023 History of Present illness Narrative* Mali Ramirez APRN.[facility] - 02/15/2023 1:26 PM EDT This [...] by the patient and a relative. No tail trimmer was used. Animal Bite The incident occurred [...] Date APPENDECTOMY HYSTERECTOMY HX partial- done in [place] LAMINECTOMY W/O FFD 07/12 VERT SEG LUMBAR [...] [facility], ROLDAN Ramirez APRN.DIVING FISHER documented in this [facility]07-31-2023 History of Present illness Narrative* Ashley Granados [...] 07, 2023 4:01 PM documented in this encounterDayton [facility] Center07-31-2023 NoteHNO ID: [id number] Author: Ashley Granados RT(R) Service: Radiology Author [...] BY: RT Jacqueline(R) February 07, 2023 4:01 [facility]07-31-2023 NoteHNO ID: [id number] Author: J Luis Sanches APRN.[facility] Service: ? Author Type: Nurse Practitioner [...] history is provided by the patient. No tail trimmer was used. Pain (foot) Review of Systems [...] Date APPENDECTOMY HYSTERECTOMY HX partial- done in [place] LAMINECTOMY W/O FFD 07/12 VERT SEG LUMBAR [...] noted. IMPRESSION IMPRESSION: No acute osseous abnormality Supervising Producer: PAZ Transcribe Date/Time: Feb 07 2023 4:09P [...] with this care plan. J Luis Sanches [facility] History of Present illness Narrative* J Luis [...] history is provided by the patient. No tail trimmer was used. Pain (foot) Review of Systems [...] Date APPENDECTOMY HYSTERECTOMY HX partial- done in [place] LAMINECTOMY W/O FFD 07/12 VERT SEG LUMBAR [...] noted. IMPRESSION IMPRESSION: No acute osseous abnormality Supervising Producer: PAZ Transcribe Date/Time: Feb 07 2023 4:09P [...] J Luis Sanches APRN.CNP documented in this encounterDayton [facility]07-27-2023 Miscellaneous Notes* Telephone Encounter - Manuel Wise [...] her know the above. documented in this encounterDayton [facility] Center07-24-2023 NoteHNO ID: [id number] Author: Alex Law MD Service: ? Author Type: Physician [...] swelling, purulent drainage, or fever/malaise. Alex Law, [facility] Hospital Discharge instructions Patient Education [...] by your health care provider. Medicine Take yikk-tmv-wprlfvg and prescription medicines only as told by [...] and water are not available, use hand oracle hyperion consultant. ?Change your dressing as told by your [...] 01/14/2006 Document Revised: 10/19/2019 Document Reviewed: 04/11/2017 [employer] Patient Education 2020 [employer] 07/07/2022 08:32:43 5 - [facility] Post-op Instruction 02/2017 (50839) [facility] Post-operative Instructions PLEASE FOLLOW [facility] POST-OP INSTRUCTIONS GIVEN WATCH FOR SIGNS OF INFECTION: call the office ([phone]) if experencing any of the following: (Usually [...] on your follow up instructions. Form: 338A (26698) R: 11/14 Follow Up Care 05/21/2022 09:31:51 With:Eulalia Bridges PT Address: When:07/20/2022 14:00:00 Comments:Follow-up as scheduled With:TANNER HAHN PA-C, Orthopedic Address: [facility] [place] [address]- When:07/16/2022 Comments:Follow-up as scheduled [facility] 12-30-2022 Note Discharge Instructions Thank you for allowing [facility] to assist you with your healthcare needs. [...] Follow-up as scheduled Where: [facility] [place] [address]- The Following Activity and Diet Have Been [...] 12 hours Duration: 5 Days Pickup at [facility] Unchanged acetaminophen (acetaminophen 500 mg oral tablet) 2 tab(s) by mouth Three (3) times a day as needed for as needed for pain not to exceed 3000 mg/ day Pickup at [facility] Unchanged albuterol (Albuterol (Eqv-ProAir HFA) 90 [...] weeks postoperatively for DVT prophylaxis. Pickup at [facility] Unchanged baclofen (baclofen 20 mg oral [...] bowel movement, then as needed Pickup at [facility] Unchanged famotidine (famotidine 40 mg [...] anti-inflammatories while on meloxicam/ Mobic Pickup at [facility] Unchanged metFORMIN (metFORMIN 500 mg [...] shoulder 1-2 tab(s) Oral q4h Pickup at [facility] Unchanged pantoprazole (pantoprazole 40 mg [...] by mouth Once a day Pharmacy Information [facility]: [address] [place], [place] [id number] [phone] What When Comments Stop Taking acetaminophen-hydrocodone (acetaminophen- [...] may report side effects to FDA at 8-376-LAJ-7031. What other drugs will affect docusate and senna? Other drugs may affect docusate and senna, including prescription and vixd-dmp-tthsqvm medicines, vitamins, and herbal products. Tell your [...] to ensure that the information provided by [employer]. ('Multum') is accurate, up-to-date, and complete, but no guarantee is made to that effect. Drug information contained herein may be time sensitive. [employer] information has been compiled for use by healthcare practitioners and consumers in the [place] and therefore [employer] does not warrant that uses outside of the [place] are appropriate, unless specifically indicated otherwise. [employer] drug information does not endorse drugs, diagnose patients or recommend therapy. [employer] drug information isan informational resource designed to [...] effective or appropriate for any given patient. [employer] does not assume any responsibility for any aspect of healthcare administered with the aid of information [employer] provides. The information contained herein is not intended to cover all possible uses, directions, precautions, warnings, drug interactions, allergic reactions, or adverse effects. If you have questions about the drugs you are taking, check with your doctor, nurse or pharmacist. Copyright 7692-7921 [employer]. Version: 3.02. Revision Date: 09/24/2020. aspirin (oral) ( pir in) Arthritis Pain, Aspi-Cor, Aspir-Low, Nancy Plus, Durlaza, Ecotrin, Miniprin, Vazalore What is the most important information I should know about aspirin? Aspirin can cause Zahida's syndrome, a serious and sometimes fatal condition in children. What is aspirin? Aspirin is a salicylate (kd-BJH-jv-ate) that is used to treat pain, and [...] may report side effects to FDA at 3-444-PDC-0163. What other drugs will affect aspirin? Ask [...] drugs may affect aspirin, including prescription and qnbl-par-lmfzqpi medicines, vitamins, and herbal products. Not all [...] to ensure that the information provided by [employer]. ('[employer]') is accurate, up-to-date, and complete, but no guarantee is made to that effect. Drug information contained herein may be time sensitive. [employer] information has been compiled for use by healthcare practitioners and consumers in the [place] and therefore [employer] does not warrant that uses outside of the [place] are appropriate, unless specifically indicated otherwise. [employer] drug information does not endorse drugs, diagnose patients or recommend therapy. [employer] drug information isan informational resource designed to [...] effective or appropriate for any given patient. [facility] does not assume any responsibility for any aspect of healthcare administered with the aid of information [facility] provides. The information contained herein is not intended to cover all possible uses, directions, precautions, warnings, drug interactions, allergic reactions, or adverse effects. If you have questions about the drugs you are taking, check with your doctor, nurse or pharmacist. Copyright 3646-8468 [facility] HospitalTraveeXcedex. Version: 16.03. Revision Date: 01/05/2021. meloxicam (oral/injection) [...] may report side effects to FDA at 2-473-SWO-0333. What other drugs will affect meloxicam? Ask [...] drugs may affect meloxicam, including prescription and ovjh-ldi-lbgrnrz medicines, vitamins, and herbal products. Not all [...] to ensure that the information provided by [employer]. ('[employer]') is accurate, up-to-date, and complete, but no guarantee is made to that effect. Drug information contained herein may be time sensitive. [employer] information has been compiled for use by healthcare practitioners and consumers in the [place] and therefore [employer] does not warrant that uses outside of the [place] are appropriate, unless specifically indicated otherwise. [employer] drug information does not endorse drugs, diagnose patients or recommend therapy. [employer] drug information isan informational resource designed to [...] effective or appropriate for any given patient. [employer] does not assume any responsibility for any aspect of healthcare administered with the aid of information [employer] provides. The information contained herein is not intended to cover all possible uses, directions, precautions, warnings, drug interactions, allergic reactions, or adverse effects. If you have questions about the drugs you are taking, check with your doctor, nurse or pharmacist. Copyright 5131-7687 [employer]. Version: 14.. Revision Date: 05/13/2020. acetaminophen (oral) (a SEET a MIN oh fen) Actamin, Anacin AF, Aurophen, Bromo Watson, Children's Tylenol, Mapap, M-Pap, Pharbetol, Silapap Childrens, [...] may report side effects to FDA at 4-105-PKT-1278. What other drugs will affect acetaminophen? Other drugs may affect acetaminophen, including prescription and qxrf-wfl-xkxuqtw medicines, vitamins, and herbal products. Tell your [...] to ensure that the information provided by [employer]. ('[employer]') is accurate, up-to-date, and complete, but no guarantee is made to that effect. Drug information contained herein may be time sensitive. [employer] information has been compiled for use by healthcare practitioners and consumers in the [place] and therefore [employer] does not warrant that uses outside of the [place] are appropriate, unless specifically indicated otherwise. [employer] drug information does not endorse drugs, diagnose patients or recommend therapy. [employer] drug information isan informational resource designed to [...] effective or appropriate for any given patient. [employer] does not assume any responsibility for any aspect of healthcare administered with the aid of information [employer] provides. The information contained herein is not intended to cover all possible uses, directions, precautions, warnings, drug interactions, allergic reactions, or adverse effects. If you have questions about the drugs you are taking, check with your doctor, nurse or pharmacist. Copyright 4777-4997 [employer]. Version: 22.. Revision Date: 08/28/2021. oxycodone (ox [...] The extended-release form of oxycodone is for dossrb-fij-jhupn treatment of pain and should not be [...] against the law. Stop taking all other jzehsq-vxe-moeqg opioid pain medicines when you start taking [...] could occur. < (more content not included)... [facility]12-29-2022 Note Date of Service 07/08/2022 Chief [...] Date: July 08, 2022 Verified By: CATHY AFRRELL MD CLINICAL STATEMENT: IMPRESSION: No acute findings. [...] by KUNAL REESE on 07/08/2022 04:05 PM [facility]12-29-2022 Note Date of Service July 08, [...] detail patient is not to take the [place] 7.5/325 mg while at home for the [...] physical therapy after the 2-week follow-up at [facility] [place]. 5. H & H: 11.7/35.9, asymptomatic. Postoperative [...] physical therapy established. I have reviewed the [place] Automated Rx Reporting System (OARRS) report for [...] TANNER HAHN PA-C on 07/08/2022 02:19 PM [facility]12-29-2022 Note ORIGINAL EXAMINATION: ONE XRAY VIEW [...] Sign Date: 07/08/2022 12:36:07 AM Ordering Provider: [facility]12-29-2022 Note ORIGINAL EXAMINATION: ONE XRAY [...] Sign Date: 07/08/2022 12:36:07 AM Ordering Provider: [facility]12-28-2022 Nurse Progress note Patient checked on and found difficult to arouse. Did not respond to loud voice and shaking. Sternal rub performed with wincing noted. Bri Quintana RN notified and Low Vasquez CNP notified also. Stronger sternal rub performed per Low Vasquez CNP and pt woke and was speaking and responding to questionsappropriately. V/S done, O2 applied and monitoring specialist also applied. Digitally Signed by GORDON Evans on 07/07/2022 06:18 PM [facility]12-28-2022 Note ORIGINAL EXAMINATION: TWO XRAY VIEWS OF THE RIGHT [id number]/28/2022 2:30 pm COMPARISON: July 06, 2022 radiograph [...] 07/07/2022 2:50:22 PM Ordering Provider: SHANE VASQUEZ [facility]12-28-2022 Nurse Progress note At approximately 1340, [...] by GORDON Evans on 07/07/2022 02:49 PM [facility]12-28-2022 Note ORIGINAL HISTORY: Fall, confusion, dizzy [...] Sign Date: 07/07/2022 2:27:06 PM Ordering Provider: [facility] [place]12-28-2022 Note ORIGINAL EXAMINATION: TWO XRAY VIEWS OF THE RIGHT [id number]/28/2022 2:30 pm COMPARISON: July 06, 2022 radiograph [...] Sign Date: 07/07/2022 2:50:22 PM Ordering Provider: [facility]12-28-2022 Note ORIGINAL HISTORY: Fall, confusion, dizzy COMPARISON: [...] Date: 07/07/2022 2:27:06 PM Ordering Provider: SHANE [facility]12-28-2022 Note Date of Service July 07, 2022 [...] detail patient is not to take the [place] 7.5/325 mg while at home for the [...] physical therapy after the 2-week follow-up at [facility] [place]. 5. H & H: 11.8/36.1, asymptomatic. Postoperative [...] would like her prescriptions E scribed to [facility] [place]. I again discussed with the patientin great detail postoperative course of treatment as well as the narcotics. She will not take the [place] while we are managing her postoperative pain control. After 6 weeks she will go back with her primary pain management physician. Patient has outpatient physical therapy established. She will follow-up per postop instructions. She will contact her office upon discharge with any concerns or questions. I have reviewed the [place] Automated Rx Reporting System (OARRS) report for [...] TANNER HAHN PA-C on 07/07/2022 08:32 AM [facility]12-27-2022 Note ORIGINAL HISTORY: Postop COMPARISON: No [...] 07/06/2022 2:01:20 PM Ordering Provider: MIKEY OROPEZA [facility]12-27-2022 Note ORIGINAL HISTORY: Postop COMPARISON: No [...] Sign Date: 07/06/2022 2:01:20 PM Ordering Provider: [facility]12-27-2022 Anesthesiology Consult note Patient: JERRELL STRICKLAND Age: [...] list: Medical Abdominal pain / SNOMED CT 54452874 / Confirmed Asthma / SNOMED CT 935645756 / Confirmed Diverticulosis / SNOMED CT 7671568478 / Confirmed Hiatal hernia / SNOMED CT 265647717 / Confirmed Hypertension / SNOMED CT 9710934075 / Confirmed Hypothyroidism / SNOMED CT 31569958 / Confirmed Fatty liver / SNOMED CT 922208032 / Confirmed Vagal bradycardia / SNOMED CT 68623467 / Confirmed, Active Problems (9) Abdominal pain Asthma Diverticulosis Fatty liver GERD (gastroesophageal reflux disease) Hiatal hernia Hypertension Hypothyroidism Vagal bradycardia Histories Past Medical History: No active or resolved past medical history items have been selected or recorded. Family History: CAD - Coronary artery disease Mother Father Procedure history: Carpal tunnel release (080222403). Repair of shoulder (389058330). Comments: 04/25/2017 7:53 EDGARDO ANGELA RN ELLEN arthroscopy LEFT History of tonsillectomy (9448173237). Abdominal hysterectomy (181675362). Appendectomy (971399390). Spinal cord stimulation (260559216). Total hip replacement (776859323). Comments: 06/22/2022 13:44 Suzette Lewis RN right Total shoulder replacement (89219131). 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 Assessment and Plan [place] [employer]esthesi[employer] (ASA) physical status classification: Class III. Anesthetic Preoperative Plan Anesthetic technique: General. Maintenance airway: Oral endotracheal tube. Postoperative pain management: interscalene block. Risks discussed: nausea, vomiting, sore throat, hypotension, allergic reaction, serious complications. Informed consent: signed by patient. 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 [place] Appetite loss acute Asthma acute Debility acute Diabetes mellitus acute Hyperlipidemia acute Hypokalemia acute Hypothyroidism acute Osteoarthritis acute Hypertension chronic Fecal impaction of colon res olved Orthostatic hypotension reso lved Osteoarthritis of left shoulder resolved Abdominal pain acute Acute hyponatremia acute Diabetes mellitus acute Hyperlipidemia acute Vomiting and diarrhea acute Hypertension chronic [facility] Work Phone: Evaluation note* Diagnosis Onset Date [...] hyponatremia acute YASMANY (acute kidney injury) ac squaxin Bradycardia acute Oral thrush acute [facility] Work Phone: Evaluation note* Diagnosis Onset Date Resolution Status Essential hypertension acute [facility] Work Phone: Evaluation noteNo assessment information available [facility] Work Phone: Evaluation note* Diagnosis Onset Date Resolution Status Acquired hypothyroidism acut e Essential hypertension acute Screening for colon cancer n oneactive Chronic back pain greater than 3 months duration noneactive Establishing care with new doctor, encounter for noneactive Chronic insomnia noneactive Moderate persistent asthma i n adult without complication noneactive Controlled type 2 diabetes mellitus noneactive [facility] Work Phone: Evaluation note* Diagnosis Pain- Primary Generalized pain [facility] [place] [facility]* Diagnosis Puncture wound of multiple sites of left upper extremity, initial encounter- Primary documented in [facility] [place] [facility]* Diagnosis Onset Date Resolution Status Acquired hypothyroidism acut e Essential hypertension acute Colon cancer screening declined noneactive Chronic back pain greater than 3 months duration noneactive Immunization due noneactive Chronic insomnia noneactive Moderate persistent asthma i n adult without complication noneactive Controlled type 2 diabetes mellitus noneactive Tingling of both feet noneac tive Lightheadedness noneactive [facility] Work Phone: Evaluation note* Diagnosis FUO (fever of unknown origin)- Primary Fever, unspecified Viral syndrome Unspecified viral infection, in conditions classified elsewhere and of unspecified site [facility] Diagnosis Onset Date Resolution Status Acquired hypothyroidism acut e Essential hypertension acute Colon cancer screening declined noneactive Chronic back pain greater than 3 months duration noneactive Immunization due noneactive Chronic insomnia noneactive Moderate persistent asthma i n adult without complication noneactive Controlled type 2 diabetes mellitus noneactive Tingling of both feet noneac tive Lightheadedness noneactive Nausea acute [facility] Work Phone: Evaluation note* Diagnosis Onset Date [...] acute Laceration of right lower leg acute [facility] Work Phone: Evaluation note* Diagnosis Onset Date [...] leg acute Acute nasopharyngitis (common cold) acute [facility] Work Phone: Evaluation note* Diagnosis Onset Date [...] wound, left acute Leg wound, right acute [facility] Work Phone: Evaluation note* Diagnosis Onset Date [...] acute Leg wound, right acute Onychomycosis acute [facility] Work Phone: Evaluation note* Diagnosis Onset Date [...] Driving safety issue noneact janki [facility]* Diagnosis Driving safety issue- Primary Other specified personal history presenting hazards to health Syncope and collapse Cognitive deficits Unspecified persistent mental disorders due to conditions classified elsewhere documented in this encounter [facility] [place] [facility]* Diagnosis Onset Date Resolution Status Leg wound, left resolved Leg wound, right resolved Nail fungus acute Cough resolved Leg wound, left resolved Leg wound, right resolved Onychomycosis acute Leg wound, left resolved Leg wound, right resolved Acquired hypothyroidism acut e Driving safety issue noneact janki [facility] abnormalities [facility]* Diagnosis Syncope and collapse- Primary Cognitive deficits Unspecified persistent mental disorders due to conditions classified elsewhere Driving safety issue Other specified personal history presenting hazards to health documented in this encounter [facility] note* Diagnosis Acute gout involving toe of right foot, unspecified cause- Primary documented in this encounter [facility] note* Diagnosis Pain Generalized pain [facility] N[facility] No data available for this section [facility] Discharge instructions No data available for this section [facility] Hospital Discharge instructionsAmbulatory Orders* Cardiology Location: None [facility] Work Phone: Progress note No data available for this section [facility] Reason for referral (narrative)* Diagnostic Procedure Only (Urgent) - Closed Specialty Diagnoses / Procedures Referred By Darren t Referred To Contact XR IMAGING Diagnoses Pain Procedures XR FOOT GENERAL 3V AP/LAT/OBL LEFT RADEX FOOT COMPLETE MINIMUM 3 VIEWS J Luis Sanches APRN.DIVING FISHER [address] [place] [address] Xr Imaging Referral ID Status Reason Start Date Expiration Date V isits Requested Visits Authorized [id number] Closed Auto-Generate d Referral 02/07/2023 03/08/2024 1 1 [facility] for referral (narrative)* Diagnostic Procedure Only (Urgent) - Closed Specialty Diagnoses / Procedures Referred By Contac t Referred To Contact XR IMAGING Diagnoses Pain Procedures XR FOOT GENERAL 3V AP/LAT/OBL LEFT RADEX FOOT COMPLETE MINIMUM 3 VIEWS J Luis Sanches APRN.DIVING FISHER [address] [place] [address] [place] [address] Referral ID Status Reason Start Date Expiration Date V isits Requested Visits Authorized [id number] Closed Auto-Generate d Referral 02/07/2023 03/08/2024 1 1 [facility] for referral (narrative)No reason for referral [facility] Work [facility]: reason for visit Narrative* Diagnostic Procedure Only (Urgent) - Closed Specialty Diagnoses / Procedures Referred By Contac t Referred To Contact XR IMAGING Diagnoses Pain Procedures XR FOOT GENERAL 3V AP/LAT/OBL LEFT RADEX FOOT COMPLETE MINIMUM 3 VIEWS J Luis Sanches APRN.DIVING FISHER [address] [place] [address] [place] [address] Referral ID Status Reason Start Date Expiration Date V isits Requested Visits Authorized [id number] Closed Auto-Generate d Referral 02/07/2023 03/08/2024 1 1 [facility] Summary Purpose Family History No [...] Date/ Time Name of Medical Power of Pulp Cooker [place]ri[place] July 29, 2021 3:59pm Name of Medical Power of Pulp Cooker [facility] August 03, 2021 12:24pm Advance Directives Yes May 2:15pm Living Will Yes August 07 1:15am Power of Pulp Cooker Yes August 07, 2021 1:15am Advance Directive Response Recorded Date/ Time Name of Medical Power of Pulp Cooker [facility] August 03, 2021 12:24pm Name of Medical Power of Pulp Cooker [facility] August 07, 2021 1:15am Advance Directives Yes May 2:15pm Living Will Yes November 29, 2021 1 0:11pm Power of Pulp Cooker Yes November 29, 2021 10:11pm Advance Directive Response Recorded Date/ Time Advance Directives Yes May 1:15pm Living Will Yes November 29, 2021 9 :11pm Power of Pulp Cooker Yes November 29, 2021 9:11pm Advance Directive Response Recorded Date/ Time Advance Directives Yes May 2:15pm Living Will Yes November 29, 2021 1 0:11pm Power of Pulp Cooker Yes November 29, 2021 10:11pm Documents on File Type Date Recorded Patient Utilities Equipment Repairer Expl anation Advance Directive(s) 11/21/2015 11:24 AM Documents on File Type Date Recorded Patient Utilities Equipment Repairer Expl anation Advance Directive(s) 11/21/2015 11:24 AM Advance Directive Response Recorded Date/ Time Living Will No March 19 10:02am Do you have a Healthcare Power of Pulp Cooker? No March 19, 2024 10:02am Advance Directives [...] section and content) DATE CREATED AUTHOR 12/25/2017 [facility] DATE CREATED AUTHOR AUTHOR'S ORGANIZ ATION 12/25/2017 [facility] DATE CREATED AUTHOR AUTHOR'S ORGANIZ ATION 10/10/2023 [facility] ([place]) DATE CREATED AUTHOR AUTHOR'S ORGANIZ ATION 01/01/2024 [facility] DATE CREATED AUTHOR AUTHOR'S ORGANIZ ATION 03/31/2024 [facility] DATE CREATED AUTHOR AUTHOR'S ORGANIZ ATION 05/20/2025 [facility] Goals (unrecognized section and content) Goals may [...] Member Role: Primary Care Physician Address: Address: [address] [place] [address] [place] [address] [place] [address] Care Team Related Persons Name: CONKLINOctober Care Team Personnel Name: OSCAR ADHIKARI MD Member Role: Primary Care Physician Address: Address: [address] [place] [address] [place], [place] [address] Care Team Related Persons Name: CONKLINOctober Care Teams (unrecognized sec tion and content) [...] Primary Care Provider, Attendi ng Provider Active Location Man Relationship Specialty Start Date End Date Dionne Magaña MD [address] [place] [address] PCP - General Internal Medicine 01/31/23 Location Man Relationship Specialty Start Date End Date Dionne Magaña MD [address] [place] [address] PCP - General Internal Medicine 01/31/23 Location Man Relationship Specialty Start Date End Date Dionne Magaña MD [address] [place] [address] PCP - General Internal Medicine 01/31/23 Team Status: Inactive Member Role Status Dates Dr. Dionne Magaña MD Primary Care Provider Active Dr. Harshad Camacho MD Attending Provider, Referring Pr ovider Active Team Status: Inactive Member Role Status Dates Dr. Dionne Magaña MD Primary Care Provider Active Tanner DOW PA-C Attending Provider, Referring Pr ovider Active Location Man Relationship Specialty Start Date End Date Dionne Magaña MD [address] [place], [place] [address] 609- PCP - General Internal Medicine 01/31/23 Location Man Relationship Specialty Start Date End Date Dionne Magaña MD [address] [place], [place] [id number] [phone] PCP - General Internal Medicine 01/31/23 Team [...] Lester Attending Provider, Referring Pro vider Active Location Man Relationship Specialty Start Date End Date Dionne Magaña MD [address] [place], [place] [phone] PCP - General Internal Medicine 01/31/23 Location Man Relationship Specialty Start Date End Date Dionne Magaña MD [address] [place] [address] PCP - General Internal Medicine 01/31/23 Location Man Relationship Specialty Start Date End Date Dionne Magaña MD [address] [place] [address] PCP - General Internal Medicine 01/31/23 Team [...] 2024 End: September 30, 2024 Andrew Chang 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, 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-C Attending Provider Active S tart: September 30, [...] 2024 End: September 30, 2024 Andrew Chang 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, 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-C Attending Provider Active S tart: September 30, [...] 2024 End: September 30, 2024 Andrew Chang 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, 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-C Attending Provider Active S tart: September 30, 2024 End: September 30, 2024 Team Status: Inactive Member Role/Relationship Status Dates Dr. Dionne aMgaña MD Primary Care Provider Active Start: October [...] January 25, 2025 VICTOR M Kilgore Attending physician Active S tart: January [...] or prosecute any alcohol or drug abuse patient.[facility] the event this information is protected by the Federal Confidentiality of Alcohol and Drug Abuse Patient Records regulations: The Federal rules restrict any use of the information to criminally investigate or prosecute any alcohol or drug abuse patient.[facility] Center[facility] the event this information is protected by the Federal Confidentiality of Alcohol and Drug Abuse Patient Records regulations: The Federal rules restrict any use of the information to criminally investigate or prosecute any alcohol or drug abuse patient.[facility] CenterIn the event this information is protected by the Federal Confidentiality of Alcohol and Drug Abuse Patient Records regulations: The Federal rules restrict any use of the information to criminally investigate or prosecute any alcohol or drug abuse patient.[facility] CenterIn the event this information is protected by the Federal Confidentiality of Alcohol and Drug Abuse Patient Records regulations: The Federal rules restrict any use of the information to criminally investigate or prosecute any alcohol or drug abuse patient.[facility] Center[facility] the event this information is protected by the Federal Confidentiality of Alcohol and Drug Abuse Patient Records regulations: The Federal rules restrict any use of the information to criminally investigate or prosecute any alcohol or drug abuse patient.[facility] CenterIn the event this information is protected by the Federal Confidentiality of Alcohol and Drug Abuse Patient Records regulations: The Federal rules restrict any use of the information to criminally investigate or prosecute any alcohol or drug abuse patient.[facility] Center[facility] the event this information is protected by the Federal Confidentiality of Alcohol and Drug Abuse Patient Records regulations: The Federal rules restrict any use of the information to criminally investigate or prosecute any alcohol or drug abuse patient.[facility] CenterIn the event this information is protected by the Federal Confidentiality of Alcohol and Drug Abuse Patient Records regulations: The Federal rules restrict any use of the information to criminally investigate or prosecute any alcohol or drug abuse patient.[facility] CenterIn the event this information is protected by the Federal Confidentiality of Alcohol and Drug Abuse Patient Records regulations: The Federal rules restrict any use of the information to criminally investigate or prosecute any alcohol or drug abuse patient.[facility] CenterIn the event this information is protected by the Federal Confidentiality of Alcohol and Drug Abuse Patient Records regulations: The Federal rules restrict any use of the information to criminally investigate or prosecute any alcohol or drug abuse patient.[facility] Reason for Visit (unrecogniz ed [...] RS OT COMM REINTEGRATION Dionne Magaña MD [address] [place] [address] Hermelinda Baker OT/L Referral ID Status Reason Start Date Expiration Date V isits Requested Visits Authorized [id number] Authorized 07/11/2023 07/10/2024 99 99 Reason Comments [...] Procedures Self pay driving Dionne Magaña MD [address] [place] [address] [address] Referral ID Status Reason Start Date Expiration Date Visits Requested Visits Authorized [id number] Authorized Financial Clearance Required - Self Pay [...] BE BASED ON THE PRIMARY CLINICAL RECORDS. [facility]. provides no warranty or guarantee of the accuracy or completeness of information in this document.
[2025-07-10 12:50] VITALS: BMI 23.9
[2025-07-10 13:15] VITALS: BP 95/81; PULSE 57; RESP 18; TEMP 36.2; O2SAT 99
--- NOTE | 2025-07-10 14:41 | CASEMGMT ---
Addendum entered by Pamella Robles 07/10/25 15:33: SW attempted to complete the SDOH again and the patient was still on the phone. Original Note: Social Work SW attempted to complete the SDOH but the patient was on the phone. FABRICIO Fagan
[2025-07-10 16:05] VITALS: BP 156/40; PULSE 58; RESP 18; TEMP 36.2; O2SAT 100
--- OUTSIDE RECORDS SUMMARY | 2025-07-10 16:14 | XMS RPT_ITS | CCD ---
Author Organization [facility]ini[facility]v Care Team Providers Care Rehab Services Aide Name Role Phone [employer] Unavailable Unavailable [...] [phone]) VICTOR M Goins Attending Provider [phone] LEANN Lal Attending Provider [phone]) Dr. Dionne [...] Care Unavailable HERMELINDA BAKER Attending Unavailable ARCHANA, DOINNE G Referring Unavailable ARCHANA, DIONNE G Primary [...] 10 Ghazal SAUCEDA, Dr. Montano Attending Physician [place], Dionne Primary Care Unavailable Yovanny PA, Dayday Attending Unavailable Archana, Dionne Referring Unavailable Archana, Dionne Primary Care Unavailable [place], Dionne Referring Unavailable Yris Kirk Attending Unavailable Archana, Dionne Primary Care Unavailable Cole, Shewta Referring Unavailable Cole, Shweta Attending Unavailable Archana, Dionne Referring Unavailable Dusty Harman Attending Unavailable [place], Dionne Primary Care Unavailable Archana, Dionne Referring Unavailable Archana, Dionne Primary Care Unavailable Yris Kirk Attending Unavailable [place], Dionne Primary Care Unavailable Chang Mercado Attending Unavailable Archana, Dionne Primary Care Unavailable Cole, Shweta Referring Unavailable Cole, Shweta Attending Unavailable Ghazal, Dusty Attending Unavailable Ghazal, Dusty Admitting Unavailable [place], Dionne Primary Care Unavailable Archana, Dionne Referring Unavailable Ghazal, Dusty Attending Unavailable [place], Dionne Primary Care Unavailable [place], Dionne Primary Care Unavailable Sarmad Hidalgo Attending Unavailable [place], Dionne Attending Unavailable [place], Dionne Primary Care Unavailable Archana, Dionne Referring Unavailable Archana, Dionne Primary Care Unavailable Dayday Thomas Attending Unavailable Dayday Thomas Referring Unavailable [place], Dionne Primary Care Unavailable Dayday Thomas Attending Unavailable Dayday Thomas Referring Unavailable Archana, Dionen Primary Care Unavailable Archana, Dionne Referring Unavailable Dayday Thomas Attending Unavailable [place], Dionne Attending Unavailable [place], Dionne Primary Care Unavailable [place], Dionne Referring Unavailable Archana, Dionne Attending Unavailable Archana, Dionne Primary Care Unavailable Archana, Dionne Referring Unavailable Charlene JUNIOR, Andrew Avila Attending Unavailable [place], Dionne Primary Care Unavailable Archana, Dionne Referring Unavailable LinonasovYris Attending Unavailable Archana, Dionne Primary Care Unavailable [place], Dionne Referring Unavailable Archana, Dionne Referring Unavailable Archana, Dionne Attending Unavailable [place], Dionne Primary Care Unavailable [place], Dionne Primary Care Unavailable Archana, Dionne Referring Unavailable Dayday Thomas Attending Unavailable [place], Dusty Attending Unavailable Archana, Dionne Primary Care Unavailable Cole, Shweta Referring Unavailable [place], Dionne Referring Unavailable [place], Dionne Primary Care Unavailable Dayday Thomas Attending Unavailable Archana, Dionne Primary Care Unavailable Dayday Thomas Attending Unavailable [place], Dionne Referring Unavailable [place], Dionne Referring Unavailable [place], Dionne Primary Care Unavailable Dayday Thomas Attending Unavailable Archana, Dionne Attending Unavailable Archana, Dionne Referring Unavailable Dionne Magaña Primary Care Unavailable Allergies Allergy Classification Reported Allergen(s) Allergy Type Date of Onset Reaction(s) Facility Acetaminophen / Codeine (1 source) Acetaminophen / Codeine Drug Allergy 6 Anaphylaxis [facility] Work Phone: (14 sources) acetaminophen / codeine; Translations: [ACETAMINOPHEN-CO DEINE] Drug Allergy 6 Anaphylaxis [facility] Repository (15 sources) Seasonal allergy; Translations: [SEASONAL ALLERGIES] Propensity to adverse reactions (disorder) 6 Other: See Comments [facility] Repository (20 sources) Clindamycin Drug Allergy 2 rash [facility] (20 sources) Codeine; Translations: [codeine phosphate] Drug Allergy 2 Nausea [facility] (1 source) Clindamycin Drug Allergy 5 [facility] Repository Medications Current Medications Medication Drug [...] tab(s), 0 Refill(s), 07/21/22 8:33:00 EST, Pharmacy: [facility], 162.6, cm, 07/06/22 15:21:00 EST, [...] prophylaxis., # 60 tab(s), 0 Refill(s), Pharmacy: [facility], 162.6, cm, 07/06/22 15:21:00 EST, [...] cap(s), 0 Refill(s), 07/14/22 13:05:00 EST, Pharmacy: [facility], 162.6, cm, 07/06/22 15:21:00 [...] 10:07am docusate sodium 50 mg / sennosides, retirement 8.6 mg oral tablet (20 sources) Start: 07-07-2022 End: 07-10-2022 take 1 tablet by mouth twice daily Senokot S 50 mg-8.6 mg oral tablet Dose = 2 tab(s), Oral, BID, Take until first bowel movement, then as needed, X 3 day(s), # 12 tab(s), 0 Refill(s), Pharmacy: [facility], 162.6, cm, 07/06/22 15:21:00 EST, [...] 08-14-2021 Fluticasone Propionate (Flon ase) 50 mcg/actuation [place],Suspension Discontinued 1 NMA INTRANASAL DAILY August 12, 2021 1:00am August 14, 2021 9:10am Check with primary doctor Start: 08-12-2021 End: 08-14-2021 Fluticasone Propionate (Flon ase) 50 mcg/actuation [place],Suspension Discontinued 1 SPRAY INTRANASAL DAILY August 12, [...] for 10 days. Location: left warm nystatin 230151 unt/ml oral suspension (20 sources) Polyene Antifungal Start: 2 take 401468 [IU] by mouth four times daily Nystatin Active 331417 UNIT PO 4 TIMES DAILY 140 7 December 01, 2021 9:32am Start: 08-07-2021 End: 08-14-2021 take 1 tablet by mouth four times daily Nystatin 500,000 unit Tablet Discontinued 491377 U PO 4 TIMES DAILY August 07, [...] 2021 2:31pm Start: 07-10-2019 End: 08-10-2019 take 217649 [IU] by mouth four times daily Nystatin 500,000 UNIT/5 ML suspension Discontinued 428128 U PO 4 TIMES DAILY 56 0 [...] tab(s), 0 Refill(s), 07/14/22 8:35:00 EST, Pharmacy: [facility], Status post reverse total arthroplasty of [...] Start: 08-24-2024 take 2 tablets by mo [facility] twice daily as needed for constipation [...] 2024 1:00am August 24, 2024 6:11pm sennosides, retirement 8.6 mg oral tablet (20 sources) Start: [...] Start: 05-15-2024 [facility] Completed/Discontinued Medications Medication Drug Class(es) [...] Comment on above: Take 1 tablet by [facility] twice daily for 5 days. bacitracin [...] Start: 06-22-2022 take 1 capsule by mo [facility] three times daily as needed benzonatate [...] directed Start: 08-01-2023 End: 12-13-2023 Honey-Hydrocolloid Dressing ([facility]) 1.8 X 1.8 bandage Discontinued 0 .Route August 01, 2023 1:00am December 13, 2023 10:51am As directed Start: 08-01-2023 Honey-Hydrocol loid Dressing ([facility]) 1.8 X 1.8 bandage Active 0 .Route August 01, 2023 1:00am As directed Start: 08-01-2023 Honey-Hydrocol loid Dressing ([facility]) 1.8 X 1.8 bandage Active 0 [...] 10 mg by mouth daily at bedtime. Um-Jj-Gplqh-Lutein-H erbal 293 (Alive Women's 50 Plus Gummy) 120 mcg-150 mcg -37.5 mg Tablet,Chewable (20 sources) Start: 1 End: 1 take 1 tablet by mouth once daily Cc-Rs-Btgzh-Lutein-He rbal 293 (Alive Women's 50 Plus Gummy) 120 mcg-150 mcg -37.5 mg Tablet,Chewable Discontinued 1 TABLET PO DAILY December 27, 2020 5:54pm February 13, 2021 2:30pm Start: 12-27-2020 End: 02-13-2021 Yy-Rq-Oifcx-Lutein-Herbal 29 3 (Alive Women's 50 Plus Gummy) 120 mcg-150 mcg -37.5 mg Tablet,Chewable Discontinued 1 {tbl} PO DAILY December 27, 2020 12:00am February 13, 2021 2:30pm SUPPLEMENT Start: 12-27-2020 End: 02-13-2021 Ml-Ra-Uipoo-Lutein-Herbal 29 3 (Alive Women's 50 Plus Gummy) 120 mcg-150 mcg -37.5 mg Tablet,Chewable Discontinued 1 {tbl} PO DAILY December 27, 2020 12:00am February 13, 2021 2:30pm Start: 12-27-2020 End: 02-13-2021 take 1 tablet by mouth once daily Ay-Gx-Wnehc-Lutein-Herbal 293 (Alive Women's 50 Plus Gummy) 120 mcg-150 mcg -37.5 mg Tablet,Chewable Discontinued 1 TABLET PO DAILY December 27, 2020 12:00am February 13, 2021 2:30pm Start: 12-27-2020 End: 02-13-2021 take 1 tablet by mouth once daily Ow-Xq-Yzoii-Lutein-Herbal 293 (Alive Women's 50 Plus Gummy) 120 mcg-150 mcg -37.5 mg Tablet,Chewable Discontinued 1 TABLET PO DAILY December 26, 2020 11:00pm February 13, 2021 1:30pm Mk-Bh-Twmji-Lutein-Herbal 29 3 (Alive Women's 50 Plus) 120 mcg-150 mcg -37.5 mg Tablet,Chewable (1 source) Start: 12-27-2020 End: 02-13-2021 take 1 tablet by mouth once daily My-Hk-Mjqfz-Lutein-Herbal 293 (Alive Women's 50 Plus) 120 mcg-150 [...] 11:35pm Celio powder packets polyethylene glycol 3350 87433 mg powder for oral solution (20 sources) [...] Start: 11-29-2021 Triamcinolone Acetonide (Nasacort) 55 mcg Aerosol,[place] Active 1 SPRAY INTRANASAL AT BEDTIME November [...] Vis iton 05-17-2025 Internal Medicine Office Visit [facility] Internal Medicine [address] [place] [address] [place] [address] OFFICE VISIT Date of Service: 05/17/25 MR#: [id number] Acct: [id number] Name: MARCO AJERRELL D Rep #: [id number] : 1945 Provider: VICTOR M Ni Age/Sex: 79/F Location: [facility] [place] Status: Signed Intake Vital Signs 01/08/25 07:59 [...] Intake Visit Reasons: Medication 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 Normal [facility] MR/BMS.Deshawn 04-24-2025 MR/BMS.BVShyla [facility] Vascular Surgery [address] [place] [address] OFFICE VISIT Date of Service: 04/24/25 MR#: [id number] Acct: [id number] Name: JERRELL STRICKLAND Rep #: [id number] : 1945 Provider: Dr. Dusty Harman MD Age/Sex: 79/F Location: [facility] Status: Signed Intake Vital Signs 01/08/25 07:59 [...] denosumab 60 mg/mL subcutaneous 60 mg subcut [id number] #1 mL 04/24/25 Rx syringe (Prolia) mirtazapine [...] you fallen in the past year?: No [facility] Medical History Post-menopausal History of [...] Chronic low (more content not included)... Normal [facility] CREATININE FINGERSTICKon CREATININE WB < 1.0 Normal 0.55-1.02 [facility] Comment on above: Performed By: #### L 9100.0200 #### [facility] Laboratory [address], [address] EGFR WB > 60.0000 Normal >60 [facility] Comment on above: Performed By: #### L 9100.0200 #### [facility] Laboratory [address] [place], [place], [address] CTA Head AND Neck W/ Contras ton 02-04-2025 CTA Head AND Neck W/ Contrast [facility] Imaging Services [address] [place], [place] [address] CTA Head AND Neck W/ Contrast MR#: [id number] Acct: [id number] Name: JERRELL STRICKLAND Rep #: [id number] : 1945 F 79 From: Gonzalo carrasco MD PCP: Dr. Dionne Magaña MD Status: REG CLI Study: CTA Head AND Neck W/ Contrast Date of Exam: Exam# [id number] Ordering Dr: Shweta Cole PROCEDURE: CTA HEAD [...] RIGHT Vertebral: Unremarkable. LEFT Vertebral: Unremarkable. Anatomy: [place] anatomy is normal. Aneurysm or [...] a marked degree of stenosis. Reading Location: [facility] CC: VICTOR M Jimenez; Dr. Dionne Magaña MD System Engineer: Signed Normal [facility] EGFROrdered By: Shweta Cole on 02-04-2025 GFR/1.73 sq M.predicted among non-blacks MDRD (S/P/Bld) [Vol rate/Area] mL/min/{1.73_m2} >60 [facility] Echocardiogram study reportO rdered By: Chang Mercado on 01-28-2025 Study report [facility] Cardiovascular Services [address] [place] [address] Echo Complete 01/25/25 1446 MR#: [id number] Acct: [id number] Name: JERRELL STRICKLAND Rep #:[id number] : 1945 79 From: Chang [place] Attending [...] Date Dictated: 01/25/25 1446 Date Transcribed: 01/28/25711 System Engineer: Signed [facility] Work Phone: Echo Completeon 01-25-2025 Echo Complete [facility] Cardiovascular [place] [address] Echo Complete 01/25/25 1446 MR#: [id number] Acct: [id number] Name: JERRELL STRICKLAND Rep #: [id number] : 1945 79 From: Chang Mercado MD Attending Dr: VICTOR M Ni Status: REG CLI Ordering Dr: Dayday Hairston Date: 01/25/25 Location: [facility] Sex: F C Admitted: Reason For [...] Date Dictated: 01/25/25 1446 Date Transcribed: 01/28/25711 System Engineer: Signed Normal [facility] Bone density reportOrdered B y: Gonzalo Jordan on 01-17-2025 Study report Skeletal system DXA [facility] Imaging Services [address] [address] [place], [place] [address] Dexa Bone Density/Append Skel MR#: [id number] Acct: [id number] Name: JERRELL TSRICKLAND Rep #: [id number] : 1945 F 79 From: Denzel Jordan MD PCP: Dr. Dionne Magaña MD Status: REG CLI Study:Dexa Bone Density/Append Skel Date of E xam: 01/17/25 Exam# [id number] Ordering Dr: Dionne Magaña MD PROCEDURE: DEXA [...] follow-up as clinically warranted. Reading Location: [facility] CC: Dr. Dionne Magaña MD ~ System Engineer: Signed [facility] Dexa Bone Density/Append Ske jazmin 01-17-2025 Dexa Bone Density/Append Skel [facility] Imaging Services [address] [place], [place] [address] Dexa Bone Density/Append Skel MR#: [id number] Acct: [id number] Name: JERRELL STRICKLAND Rep #: [id number] : 1945 F 79 From: Gonzalo carrasco MD PCP: Dr. Dionne Magaña MD Status: [facility] Study: Dexa Bone Density/Append Skel Date of Exam: Exam# [id number] Ordering Dr: Dionne Magaña MD PROCEDURE: DEXA [...] Recommend follow-up as clinically warranted. Reading Location: [facility] CC: Dr. Dionne Magaña MD System Engineer: Signed Normal [facility] Laboratory - Hematology and Cell countsOrdered By: Dionne Magaña on 01-08-2025 HbA1c (Bld) [Mass fraction] 6.1 % 4.2-6.3 [facility] Internal Medicine Office Vis iton 01-07-2025 Internal Medicine Office Visit [facility] [address] [place] [address] [place] [address] OFFICE VISIT Date of Service: 01/08/25 MR#: [id number] Acct: [id number] Name: JERRELL STRICKLAND Rep #: [id number] : 1945 Provider: Dr. Dionne powell MD Age/Sex: 79/F Location: [facility] Status: Signed Intake Vital Signs 09/13/24 [...] Reasons: 3 M FU Chief Complaint: fu Mechanical Striper Required: No Accompanied by: Self Is patient [...] you fallen in the past year?: No [facility] Medical History Post-menopausal History of [...] (Reviewed 01/08/25 (more content not included)... Normal [facility] Internal Medicine Office Vis amy 12-28-2024 Internal Medicine Office Visit [facility] [address] [place] [address] [place] [address] OFFICE VISIT Date of Service: 12/28/24 MR#: [id number] Acct: [id number] Name: JERRELL STRICKLAND Rep #: [id number] : 1945 Provider: VICTOR M Ni Age/Sex: 79/F Location: [facility] [place] [facility] Status: Signed Intake Vital Signs 12/21/24 07:32 [...] Reasons: BP FOLLOW UP Chief Complaint: fu Mechanical Striper Required: No Accompanied by: Self Is patient [...] few days states she feels much better [facility] Medical History Post-menopausal History of [...] of rheum (more content not included)... Normal [facility] Absolute lymphocyte countOrd ered By: Dayday Hairston on 12-21-2024 Lymphocytes Auto (Unsp spec) [#/Vol] 2.37 10*3/uL 0.83-4.51 [facility] Absolute neutrophil countOrd ered By: Dayday Hairston on 12-21-2024 Neutrophils (Bld) [#/Vol] 6.7 10*3/uL 2.0-7.7 [facility] Anion gap in Serum or Plasma Ordered By: Dayday Hairston on 12-21-2024 Anion gap [Moles/Vol] 12 mmol/L 5-15 [facility] Automated lymphocyte count a s percentage of total leukocytesOrdered By: Dayday Hairston on 12-21-2024 Lymphocytes/100 WBC Auto (Unsp spec) 21.8 % 19-41 [facility] BUN/creatinine ratioOrdered By: Dayday Hairston on 12-21-2024 Urea nitrogen/Creatinine [Mass ratio] 21.9 mg/mg High 10-20 [facility] Basophil percentageOrdered B y: Dayday Hairston on 12-21-2024 Basophils/100 WBC (Bld) 0.8 % 0-1 [facility] Bilirubin, totalOrdered By: Dayday Hairston on 12-21-2024 Bilirubin [Mass/Vol] 0.26 mg/dL 0.00-1.30 [facility] CBC W/Diff, Automatedon 12-09-2024 Absolute Lymph 2.37 X10 3/uL Normal 0.83-4.51 [facility] Comment on above: Performed By: #### L 506.0400, L501.9310, L100.0100, L500.4100, L500.4050, L501.9520 #### [facility] Laboratory [address] [place], [address] Absolute Neut 6.7 X10 3/uL Normal 2.0-7.7 [facility] Comment on above: Performed By: #### L 506.0400, L501.9310, L100.0100, L500.4100, L500.4050, L501.9520 #### [facility] Laboratory [address] [place], [address] Basophils/100 WBC (Bld) 0.8 % Normal 0-1 [facility] Comment on above: Performed By: #### L 506.0400, L501.9310, L100.0100, L500.4100, L500.4050, L501.9520 #### [facility] Laboratory [address] [place], [address] Eosinophils/100 WBC (Bld) 5.1 % High 0-5 [facility] Comment on above: Performed By: #### L 506.0400, L501.9310, L100.0100, L500.4100, L500.4050, L501.9520 #### [facility] Laboratory [address] [place], [address] Erythrocyte distribution width (RBC) [Ratio] 13.2 % Normal 11.6-14.6 [facility] Comment on above: Performed By: #### L 506.0400, L501.9310, L100.0100, L500.4100, L500.4050, L501.9520 #### [facility] Laboratory [address] [place], [address] Hematocrit (Bld) [Volume fraction] 33.9 % Low 37-47 [facility] Comment on above: Performed By: #### L 506.0400, L501.9310, L100.0100, L500.4100, L500.4050, L501.9520 #### [facility] Laboratory [address] [place], [address] Hemoglobin (Bld) [Mass/Vol] 11.0 g/dL Low 12.0-15.0 [facility] Comment on above: Performed By: #### L 506.0400, L501.9310, L100.0100, L500.4100, L500.4050, L501.9520 #### [facility] [address] [place], [address] IG% 0.400 Normal 0.0-0.9 [facility] Comment on above: Result Comment: IG% - Immature Granulocytes (promyelocytes, myelocytes and metamyelocytes) > 1% indicates that a LEFT SHIFT is Present. Performed By: #### L 506.0400, L501.9310, L100.0100, L500.4100, L500.4050, L501.9520 #### [facility] Laboratory [address] [place], [address] Lymphocytes/100 WBC (Bld) 21.8 % Normal 19-41 [facility] Comment on above: Performed By: #### L 506.0400, L501.9310, L100.0100, L500.4100, L500.4050, L501.9520 #### [facility] Laboratory [address] [place], [address] MCH (RBC) [Entitic mass] 33.7 pg High 27.0-32.0 [facility] Comment on above: Performed By: #### L 506.0400, L501.9310, L100.0100, L500.4100, L500.4050, L501.9520 #### [facility] [address] [place], [address] MCHC (RBC) [Mass/Vol] 32.4 g/dL Normal 32-36 [facility] Comment on above: Performed By: #### L 506.0400, L501.9310, L100.0100, L500.4100, L500.4050, L501.9520 #### [facility] [address] [place], [address] MCV (RBC) [Entitic vol] 104.0 fL High 81-99 [facility] Comment on above: Performed By: #### L 506.0400, L501.9310, L100.0100, L500.4100, L500.4050, L501.9520 #### [facility] [address] [place], [address] Monocytes/100 WBC (Bld) 10.0 % Normal 0-10 [facility] Comment on above: Performed By: #### L 506.0400, L501.9310, L100.0100, L500.4100, L500.4050, L501.9520 #### [facility] [address] [place], [address] Neutrophils/100 WBC (Bld) 61.9 % Normal 47-70 [facility] Comment on above: Performed By: #### L 506.0400, L501.9310, L100.0100, L500.4100, L500.4050, L501.9520 #### [facility] Laboratory [address] [place], [address] Nucleated RBC (Bld) [#/Vol] 0 10*3/uL Normal 0-5 [facility] Comment on above: Performed By: #### L 506.0400, L501.9310, L100.0100, L500.4100, L500.4050, L501.9520 #### [facility] [address] [place], [address] Platelet mean volume (Bld) [Entitic vol] 11.7 fL Normal 6.2-12.0 [facility] Comment on above: Performed By: #### L 506.0400, L501.9310, L100.0100, L500.4100, L500.4050, L501.9520 #### [facility] [address] [place], [address] Platelets (Bld) [#/Vol] 271 10*3/uL Normal 150-450 [facility] Comment on above: Performed By: #### L 506.0400, L501.9310, L100.0100, L500.4100, L500.4050, L501.9520 #### [facility] [address] [place], [address] RBC (Bld) [#/Vol] 3.26 10*6/uL Low 4.2-5.4 [facility] Comment on above: Performed By: #### L 506.0400, L501.9310, L100.0100, L500.4100, L500.4050, L501.9520 #### [facility] [address] [place], [address] RDW SD 51.0 fl High 35.1-43.9 [facility] Comment on above: Performed By: #### L 506.0400, L501.9310, L100.0100, L500.4100, L500.4050, L501.9520 #### [facility] [address] [place], [place], [address] WBC (Bld) [#/Vol] 10.9 10*3/uL Normal 4.4-11.0 [facility] Comment on above: Performed By: #### L 506.0400, L501.9310, L100.0100, L500.4100, L500.4050, L501.9520 #### [facility] [address] [place], [place], [address] Calculated very low density lipoprotein (VLDL) cholesterol measurementOrdered By: Dayday Hairston on 12-21-2024 Calculated very low density lipoprotein (VLDL) cholesterol measurement 14 mg/dL 5-40 [facility] Carbon dioxide, total [Moles /volume] in Central venous bloodOrdered By: Dayday Hairston on 12-21-2024 CO2 [Moles/Vol] 22.8 mmol/L 21.0-32.0 [facility] Chloride assayOrdered By: Stan Hairston on 12-21-2024 Chloride [Moles/Vol] 105 mmol/L 98-108 [facility] Comprehensive Metabolic Prof ilon 12-21-2024 Albumin [Mass/Vol] 4.0 g/dL Normal 3.4-4.8 [facility] Comment on above: Performed By: #### L 506.0400, L501.9310, L100.0100, L500.4100, L500.4050, L501.9520 ####[facility] [address] [place], [address] Albumin/Globulin [Mass ratio] 1.3 {ratio} Normal 0.9-2.4 [facility] Comment on above: Performed By: #### L 506.0400, L501.9310, L100.0100, L500.4100, L500.4050, L501.9520 ####[facility] [address] [place], [address] ALK PHOS 108 U/L High 35-104 [facility] Comment on above: Performed By: #### L 506.0400, L501.9310, L100.0100, L500.4100, L500.4050, L501.9520 ####[facility] [address] [place], [address] ALT [Catalytic activity/Vol] 20 U/L Normal <=34 [facility] Comment on above: Performed By: #### L 506.0400, L501.9310, L100.0100, L500.4100, L500.4050, L501.9520 ####[facility] [address] [place], [address] AST [Catalytic activity/Vol] 20 U/L Normal <=31 [facility] Comment on above: Performed By: #### L 506.0400, L501.9310, L100.0100, L500.4100, L500.4050, L501.9520 ####[facility] [address] [place], [address] Bilirubin [Mass/Vol] 0.26 mg/dL Normal 0.00-1.30 [facility] Comment on above: Performed By: #### L 506.0400, L501.9310, L100.0100, L500.4100, L500.4050, L501.9520 ####[facility] [address] [place], [address] BUN/CRE 21.9 RATIO High 10-20 [facility] Comment on above: Performed By: #### L 506.0400, L501.9310, L100.0100, L500.4100, L500.4050, L501.9520 ####[facility] [address] [place], [address] Calcium [Mass/Vol] 9.4 mg/dL Normal 7.6-11.0 [facility] Comment on above: Performed By: #### L 506.0400, L501.9310, L100.0100, L500.4100, L500.4050, L501.9520 ####[facility] [address] [place], [address] Chloride [Moles/Vol] 105 mmol/L Normal 98-108 [facility] Comment on above: Performed By: #### L 506.0400, L501.9310, L100.0100, L500.4100, L500.4050, L501.9520 ####[facility] [address] [place], [address] CO2 [Moles/Vol] 22.8 mmol/L Normal 21.0-32.0 [facility] Comment on above: Performed By: #### L 506.0400, L501.9310, L100.0100, L500.4100, L500.4050, L501.9520 ####[facility] [address] [place], [address] Creatinine [Mass/Vol] 1.01 mg/dL Normal 0.70-1.20 [facility] Comment on above: Performed By: #### L 506.0400, L501.9310, L100.0100, L500.4100, L500.4050, L501.9520 ####[facility] [address] [place], [address] GAP 12 Normal 5-15 [facility] Comment on above: Performed By: #### L 506.0400, L501.9310, L100.0100, L500.4100, L500.4050, L501.9520 ####[facility] [address] [place], [address] GFR/1.73 sq M.predicted among non-blacks MDRD (S/P/Bld) [Vol rate/Area] 56 mL/min/{1.73_m2} Low >60 [facility] Comment on above: Result Comment: mL/m in/1.73m2 CKD-EPI Creatinine Equation (2020) Performed By: #### L 506.0400, L501.9310, L100.0100, L500.4100, L500.4050, L501.9520 ####[facility] [address] [place], [address] Globulin (S) [Mass/Vol] 3.1 g/dL Normal 2.2-4.2 [facility] Comment on above: Performed By: #### L 506.0400, L501.9310, L100.0100, L500.4100, L500.4050, L501.9520 ####[facility] [address] [place], [address] Glucose [Mass/Vol] 92 mg/dL Normal 70-99 [facility] Comment on above: Performed By: #### L 506.0400, L501.9310, L100.0100, L500.4100, L500.4050, L501.9520 ####[facility] [address] [place], [address] Potassium [Moles/Vol] 4.5 mmol/L Normal 3.3-5.1 [facility] Comment on above: Performed By: #### L 506.0400, L501.9310, L100.0100, L500.4100, L500.4050, L501.9520 ####[facility] [address] [place], [address] Sodium [Moles/Vol] 139 mmol/L Normal 133-145 [facility] Comment on above: Performed By: #### L 506.0400, L501.9310, L100.0100, L500.4100, L500.4050, L501.9520 ####[facility] [address] [place], [place], [id number] T PROT 7.1 g/dL Normal 5.9-8.4 [facility] Comment on above: Performed By: #### L 506.0400, L501.9310, L100.0100, L500.4100, L500.4050, L501.9520 ####[facility] [address] [place], [address] Urea nitrogen [Mass/Vol] 22 mg/dL High 4-19 [facility] Comment on above: Performed By: #### L 506.0400, L501.9310, L100.0100, L500.4100, L500.4050, L501.9520 ####[facility] [address] [place], [place], [address] Eosinophil percentageOrdered By: Dayday Hairston on 12-21-2024 Eosinophils/100 WBC (Bld) 5.1 % High 0-5 [facility] Erythrocyte distribution wid th ratioOrdered By: Dayday Hairston on 12-21-2024 Erythrocyte distribution width (RBC) [Ratio] 13.2 % 11.6-14.6 [facility] Erythrocyte distribution wid th standard deviationOrdered By: Dayday Hairston on 12-21-2024 Erythrocyte distribution width (RBC) [Ratio] 51.0 fl High 35.1-43.9 [facility] Glomerular filtration rate ( GFR) estimation/1.73 sq m using serum, plasma, or whole bOrdered By: Dayday Hairston on 12-21-2024 GFR/1.73 sq M.predicted among non-blacks MDRD (S/P/Bld) [Vol rate/Area] 56 mL/min/{1.73_m2} Low >60 [facility] Comment on above: mL/min/1.73m2 CKD-EP I Creatinine Equation (2020) Hematocrit Auto (Bld) [Volum e fraction]Ordered By: Dayday Hairston on 12-21-2024 Hematocrit (Bld) [Volume fraction] 33.9 % Low 37-47 [facility] Hemoglobin measurementOrdere d By: Dayday Hairston on 12-21-2024 Hemoglobin (Bld) [Mass/Vol] 11.0 g/dL Low 12.0-15.0 [facility] Immature granulocytes/100 WB C Auto (Bld)Ordered By: Dayday Hairston on 12-21-2024 Immature granulocytes/100 WBC (Bld) 0.400 % 0.0-0.9 [facility] Comment on above: IG% - Immature Granu locytes (promyelocytes, myelocytes and metamyelocytes) > 1% indicates that a LEFT SHIFT is Present. Internal Medicine Office Vis iton 12-21-2024 Internal Medicine Office Visit [facility] [place] [address] [place] [address] OFFICE VISIT Date of Service: 12/21/24 MR#: [id number] Acct: [id number] Name: JERRELL STRICKLAND Magdi Rep #: [id number] : 1945 Provider: VICTOR M Ni Age/Sex: 79/F Location: [facility] [place] Status: Signed Intake Vital Signs 09/13/24 14:23 [...] both episodes happened in the early afternoon [facility] Medical History Post-menopausal History of [...] of r (more content not included)... Normal [facility] LDL calc ser/plasOrdered By: Dayday Hairston on 12-21-2024 Cholesterol in LDL [Mass/Vol] 68 mg/dL [facility] Comment on above: Sbjekvlpwi=961-451 m g/dL & Higher Obgx=666 mg/dL or greater Laboratory - Chemistry and C hemistry - challengeOrdered By: Dayday Hairston on 12-21-2024 AST [Catalytic activity/Vol] 20 U/L <32 [facility] Lipid Profileon 12-21-2024 CHOL:HDL 2.98 Normal [facility] Comment on above: Performed By: #### L 506.0400, L501.9310, L100.0100, L500.4100, L500.4050, L501.9520 #### [facility] [address] [place], [address] Cholesterol [Mass/Vol] 122 mg/dL Normal <=200 [facility] Comment on above: Result Comment: Chol esterol level, Desirable <200 mg/dL Borderline high cholesterol 200-239 mg/dL High cholesterol >=240 mg/dL Recommendations of the NCEP Adult Treatment Panel for the following risk-cutoff thresholds for the [place] population. Performed By: #### L 506.0400, L501.9310, L100.0100, L500.4100, L500.4050, L501.9520 #### [facility] [address] [place], [address] Cholesterol in HDL [Mass/Vol] 41 mg/dL Normal [facility] Comment on above: Result Comment: Karla onal Cholesterol Education Program (NCEP) guidelines: <40 mg/dL: Low HDL-cholesterol (major risk factor for CHD) >= 60 mg/dL: High HDL-cholesterol (negative risk factor for CHD) HDL-cholesterol is affected by a number of factors, e.g. smoking, exercise, hormones, sex and age. Performed By: #### L 506.0400, L501.9310, L100.0100, L500.4100, L500.4050, L501.9520 #### [facility] [address] [place], [address] Cholesterol in LDL [Mass/Vol] 68 mg/dL Normal [facility] Comment on above: Result Comment: Bord hbrjjl=637-734 mg/dL Higher Qnlm=677 mg/dL or greater Performed By: #### L 506.0400, L501.9310, L100.0100, L500.4100, L500.4050, L501.9520 #### [facility] [address] [place], [address] ([address] Cholesterol in VLDL [Mass/Vol] 14 mg/dL Normal 5-40 [facility] Comment on above: Performed By: #### L 506.0400, L501.9310, L100.0100, L500.4100, L500.4050, L501.9520 #### [facility] [address] [place], [address] Triglyceride [Mass/Vol] 68 mg/dL Normal [facility] Comment on above: Result Comment: The drugs N-Acetylcysteine and Metamizole may falsely depress this assay. Normal range: <150 mg/dL Borderline High: 150-199 mg/dL High: 200-499 mg/dL Very High: >500 mg/dL Performed By: #### L 506.0400, L501.9310, L100.0100, L500.4100, L500.4050, L501.9520 #### [facility] [address] [place], [address] (226 MCV (mean corpuscular volume ) determinationOrdered By: Dayday Hairston on 12-21-2024 MCV (RBC) [Entitic vol] 104.0 fL High 81-99 [facility] Mean corpuscular hemoglobin (MCH) determinationOrdered By: Dayday Hairston on 12-21-2024 MCH (RBC) [Entitic mass] 33.7 pg High 27.0-32.0 [facility] Mean corpuscular hemoglobin concentration (MCHC) determinationOrdered By: Dayday Hairston on 12-21-2024 MCHC (RBC) [Mass/Vol] 32.4 g/dL 32-36 [facility] Mean platelet volume determi nationOrdered By: Dayday Hairston on 12-21-2024 Platelet mean volume (Bld) [Entitic vol] 11.7 fL 6.2-12.0 [facility] Monocyte percentageOrdered B y: Dayday Hairston on 12-21-2024 Monocytes/100 WBC (Bld) 10.0 % 0-10 [facility] Neutrophil percentageOrdered By: Dayday Hairston on 12-21-2024 Neutrophils/100 WBC (Bld) 61.9 % 47-70 [facility] Nucleated red blood cell per centageOrdered By: Dayday Hairston on 12-21-2024 Nucleated RBC/100 WBC (Bld) [Ratio] 0 % 0-5 [facility] Platelet countOrdered By: Stan tttwan Hairston on 12-21-2024 Platelets (Bld) [#/Vol] 271 10*3/uL 150-450 [facility] Potassium measurement (mass/ volume)Ordered By: Dayday Hairston on 12-21-2024 Potassium (Unsp spec) [Mass/Vol] 4.5 mmol/L 3.3-5.1 [facility] RBC Auto (Bld) [#/Vol]Ordere d By: Dayday Hairston on 12-21-2024 RBC (Bld) [#/Vol] 3.26 10*6/uL Low 4.2-5.4 [facility] Screening total cholesterol/ high density lipoprotein (HDL) cholesterol ratioOrdered By: Dayday Hairston on 12-21-2024 Cholesterol.total/Poppy sterol in HDL [Mass ratio] 2.98 {ratio} [facility] Serum creatinine measurement (mass/volume)Ordered By: Dayday Hairston on 12-21-2024 Creatinine [Mass/Vol] 1.01 mg/dL 0.70-1.20 [facility] Serum globulin measurementOr dered By: Dayday Hairston on 12-21-2024 Globulin (S) [Mass/Vol] 3.1 g/dL 2.2-4.2 [facility] Serum glucose measurement (m ass/volume)Ordered By: Dayday Hairston on 12-21-2024 Glucose [Mass/Vol] 92 mg/dL 70-99 [facility] Serum or plasma alanine renteria otransferase (ALT) measurementOrdered By: Dayday Hairston on 12-21-2024 ALT [Catalytic activity/Vol] 20 U/L <35 [facility] Serum or plasma albumin jd urement (mass/volume)Ordered By: Dayday Hairston on 12-21-2024 Albumin [Mass/Vol] 4.0 g/dL 3.4-4.8 [facility] Serum or plasma albumin/glob ulin mass ratioOrdered By: Dayday Hairston on 12-21-2024 Albumin/Globulin [Mass ratio] 1.3 {ratio} 0.9-2.4 [facility] Serum or plasma alkaline carmita sphatase measurementOrdered By: Dayday Hairston on 12-21-2024 ALP [Catalytic activity/Vol] 108 U/L High 35-104 [facility] Serum or plasma calcium jd urement (mass/volume)Ordered By: Dayday Hairston on 12-21-2024 Calcium [Mass/Vol] 9.4 mg/dL 7.6-11.0 [facility] Serum or plasma cholesterol in HDL measurement (mass/volume)Ordered By: Dayday Hairston on 12-21-2024 Cholesterol in HDL [Mass/Vol] 41 mg/dL >40 [facility] Comment on above: National Cholesterol Education Program (NCEP) guidelines:<40 mg/dL: Low HDL-cholesterol (major risk factor for CHD)>= 60 mg/dL: High HDL-cholesterol (negative risk factor for CHD)HDL-cholesterol is affected by a number of factors, e.g. smoking, exercise, hormones, sex and age. Serum or plasma cholesterol measurement (mass/volume)Ordered By: Dayday Hairston on 12-21-2024 Cholesterol [Mass/Vol] 122 mg/dL <201 [facility] Comment on above: Cholesterol level, D esirable <200 mg/dLBorderline high cholesterol 200-239 mg/dLHigh cholesterol >=240 mg/dLRecommendations of the NCEP Adult Treatment Panel for the following risk-cutoff thresholds for the [place] population. Serum or plasma urea nitroge n measurement (mass/volume)Ordered By: Dayday Hairston on 12-21-2024 Urea nitrogen [Mass/Vol] 22 mg/dL High 4-19 [facility] Sodium levelOrdered By: Oni Hairston on 12-21-2024 Sodium [Moles/Vol] 139 mmol/L 133-145 [facility] T4 Free Directon 12-21-2024 T4 FREE DIRECT 1.50 ng/dL High 0.76-1.46 [facility] Comment on above: Performed By: #### L 506.0400, L501.9310, L100.0100, L500.4100, L500.4050, L501.9520 ####[facility] [address] [place], [place], [id number] T4 Total, Thyroxinon 025 T4 [Mass/Vol] 9.7 ug/dL Normal 4.8-13.9 [facility] Comment on above: Performed By: #### L 506.0400, L501.9310, L100.0100, L500.4100, L500.4050, L501.9520 ####[facility] [address] [place], [place], [id number] T4 freeOrdered By: Dayday cordoba on 12-21-2024 Free T4 [Mass/Vol] 1.50 ng/dL High 0.76-1.46 [facility] TSH DL <= 0.005 mIU/L QnOrde red By: Dayday Hairston on 12-21-2024 TSH Qn 0.147 uIU/mL Low 0.300-4.20 0 [facility] Thyroid Stim Hormone (TSH)on 12-21-2024 TSH 0.147 uIU/mL Low 0.300-4.20 0 [facility] Comment on above: Performed By: #### L 506.0400, L501.9310, L100.0100, L500.4100, L500.4050, L501.9520 ####[facility] [address] [place] [place], [address] ThyroxineOrdered By: Dayday Hairston on 12-21-2024 T4 [Mass/Vol] 9.7 ug/dL 4.8-13.9 [facility] Total proteinOrdered By: Alex mandujanomariusz Yovanny on 12-21-2024 Protein [Mass/Vol] 7.1 g/dL 5.9-8.4 [facility] Triglycerides measurementOrd ered By: Dayday Hairston on 12-21-2024 Triglyceride [Mass/Vol] 68 mg/dL <199 [facility] Comment on above: The drugs N-Acetylcy steine and Metamizole may falsely depress this assay. Normal range: <150 mg/dLBorderline High: 150-199 mg/dLHigh: 200-499 mg/dLVery High: >500 mg/dL White blood cell (WBC) count Ordered By: Dayday Hairston on 12-21-2024 WBC (Bld) [#/Vol] 10.9 10*3/uL 4.4-11.0 [facility] Duplex ultrasound of carotid artery reportOrdered By: Dusty Harman on 12-20-2024 Study report [facility] [address] [place] [address] Carotid Duplex Ultrasound 12/19/24 1358 MR#: [id number] Acct: [id number] Name: JERRELL STRICKLAND Magdi Rep #:[id number] : 1945 79 From: Dusty Fair[place] Attending [...] the left vertebral artery. Procedure Carotid Duplex 30987. This is a Carotid Duplex examination using [...] Date Dictated: 12/19/24 1358 Date Transcribed: 12/20/24837 System Engineer: Signed [facility] Work Phone: Carotid Duplex Ultrasoundon 12-19-2024 Carotid Duplex Ultrasound [facility] [address] [place] [address] Carotid Duplex Ultrasound 12/19/241357 MR#: [id number] Acct: [id number] Name: JERRELL STRICKLAND Rep #: [id number] : 1945 79 From: Dusty Harman MD Attending Dr: VICTOR M Jimenez Status: REG CLI Ordering Dr: Shweta Cole Date: 12/19/24 Location: [facility] Sex: F C Admitted: Reason For [...] the left vertebral artery. Procedure Carotid Duplex 05241. This is a Carotid Duplex examination using [...] Date Dictated: 12/19/24 1358 Date Transcribed: 12/20/24837 System Engineer: Signed Normal [facility] Gastroenterology Visit Repor ton 10-16-2024 Gastroenterology Visit Report [facility] Gastroenterology [address] [place] [address] OFFICE VISIT Date of Service: 10/16/24 MR#: [id number] Acct: [id number] Name: JERRELL STRICKLAND Rep #: [id number] : 1945 Provider: VICTOR M Sherman Age/Sex: 79/F Location: [facility] [place] Status: Signed Intake Vital Signs 06/06/24 09:50 [...] is feeling well since adding Metamucil daily. [facility] Medical History Post-menopausal History of [...] History (Revi (more content not included)... Normal [facility] Laboratory - Microbiology an d Antimicrobial susceptibilityOrdered By: Andrew Chang on 09-30-2024 SARS-CoV-2 (COVID-19) RNA PRIYANKA+probe Ql (Unsp spec) Not detected [facility] No Panel InformationOrdered By: Andrew Chang on 09-30-2024 Influenza Types A,B Rapid (Clinic) Negative [facility] Urgent Care Visit Reporton 0 09-30-2024 Urgent Care Visit Report [facility] [address] [place] [address] OFFICE VISIT Date of Service: 09/30/24 MR#: [id number] Acct: [id number] Name: JERRELL STRICKLAND Rep #: [id number] : 1945 Provider: LEANN branch Age/Sex: 79/F Location: [facility] [place] Status: Signed Intake Vital Signs 09/13/24 14:23 [...] ST. Patient state the symptoms started Tue. [facility] Medical History Post-menopausal History of [...] Bleeding tendency (more content not included)... Normal [facility] Internal Medicine Office Vis itodimitry 08-23-2024 Internal Medicine Office Visit [facility] [address] [place] [address] [place] [address] OFFICE VISIT Date of Service: 09/13/24 MR#: [id number] Acct: [id number] Name: JERRELL STRICKLAND Rep #: [id number] : 1945 Provider: Dr. Dionne powell MD Age/Sex: 79/F Location: [facility] [place] Status: Signed Intake Vital Signs 08/08/24 13:36 [...] but pt states she is taking it. [facility] Medical History Post-menopausal History of [...] Right lumba (more content not included)... Normal [facility] Internal Medicine Office Vis ito 08-22-2024 Internal Medicine Office Visit [facility] [address] [place] [address] [place] [address] OFFICE VISIT Date of Service: 08/22/24 MR#: [id number] Acct: [id number] Name: JERRELL STRICKLAND Rep #: [id number] : 1945 Provider: Dr. Dionne powell MD Age/Sex: 79/F Location: [facility] [place] Status: Signed Intake Vital Signs 08/08/24 13:36 [...] throat Chief Complaint: sore throat and drainage Mechanical Striper Required: No Accompanied by: Self Is patient [...] Gastroesophageal reflux (more content not included)... Normal [facility] Internal Medicine Office Vis iton 08-08-2024 Internal Medicine Office Visit [facility] [address] [place] [address] [place] [address] OFFICE VISIT Date of Service: 08/08/24 MR#: [id number] Acct: [id number] Name: JERRELL STRICKLAND Rep #: [id number] : 1945 Provider: VICTOR M Ni Age/Sex: 79/F Location: [facility] [place] Status: Signed Intake Vital Signs 06/06/24 09:50 [...] OVER WEEK Chief Complaint: cold like sx Mechanical Striper Required: No Accompanied by: Self Is patient [...] of col (more content not included)... Normal [facility] Gastroenterology Visit Repor ton 07-18-2024 Gastroenterology Visit Report [facility] Gastroenterology [address] [place] [address] OFFICE VISIT Date of Service: 07/18/24 MR#: [id number] Acct: [id number] Name: JERRELL STRICKLAND Rep #: [id number] : 1945 Provider: VICTOR M Sherman Age/Sex: 79/F Location: [facility] [place] Status: Signed Intake Vital Signs 05/28/24 19:28 [...] and N/V. Prior Colonoscopy and EGD . [facility] Medical History Post-menopausal History of [...] fracture with (more content not included)... Normal [facility] Office Visit Reporton 2023 Office Visit Report [facility] [address] [place] [address] OFFICE VISIT Date of Service: 06/25/24 MR#: [id number] Acct: [id number] Patient: JERRELL STRICKLAND Rep #: [id number] : 1945 Provider: MARSHALL NURSE Age/Sex: 78/F Location: [facility] [place] Status: Signed with Addenda ADDENDUM by Dr. [...] bottles in office. Spoke w/Analisa Carl at [facility] Confirmed she was taking 2 PPI's, and 10mg olmesartan. If any adjustments are needed please advise and will CB the nurse at [phone]. Clinical Quality Measures Falls Risk Screening/Assistive Devices Have you fallen in the past year?: No 06/25/24 1202 Date Dionne Parra Signature: Date (if applicable) CC: Veronica [facility] Internal Medicine Office Vis itodimitry 06-06-2024 Internal Medicine Office Visit [facility] [address] [place] [address] [place] [address] OFFICE VISIT Date of Service: 06/06/24 MR#: [id number] Acct: [id number] Name: JERRELL STRICKLAND Rep #: [id number] : 1945 Provider: VICTOR M Ni Age/Sex: 78/F Location: [facility] [place] Status: Signed Intake Vital Signs 05/15/24 22:03 [...] Reasons: HOSP FU Chief Complaint: hosp f/u Mechanical Striper Required: No Accompanied by: Self Is patient [...] lumbar laminect (more content not included)... Normal [facility] 12 Lead EKGon 05-28-2024 12 Lead EKG [facility] Cardiovascular Services [address] [place] [address] 12 Lead EKG 05/28/242017 MR#: [id number] Acct: [id number] Name: JERRELL STRICKLAND Rep #: [id number] : 1945 78 From: Chang Mercado MD [...] ECG Confirmed by JESS SAUCEDA, CHANG ([id number]), industrial editor DOROTEO HERNANDEZ ([id number]) on 05/29/2024 1:53:14 PM Referred By: Confirmed By: CHANG MERCADO MD 05/29/24 1353 Date Chang Mercado MD CC: Dr. Dionne Magaña MD; Dr. Sarmad Hidalgo, DO Signed Normal [facility] Bedside Glucoseon 05-28-2024 FINGERSTICK GLU 102 mg/dL Normal 74-106 [facility] Comment on above: Result Comment: JONI CINTRON OF PATIENT CARE PER NURSING PROTOCOL Performed By: #### L 501.080 ####[facility] [address] [place], [address] Emergency Department Summary on 05-28-2024 Emergency Department Summary [facility] Medical Records Department [address] [place] [address] Emergency Department Summary 05/28/24 MR#: [id number] Acct: [id number] Name: JERRELL STRICKLAND Rep #: [id number] : 1945 78 From: Sarmad Hidalgo DO [...] Verified 05/11 (more content not included)... Normal [facility] M100.678on 05-28-2024 M100.678 Pending SARS-CoV-2 (COVID 19) Negative INFLUENZA A Negative INFLUENZA B Negative RSV PCR Negative Normal [facility] Comment on above: Performed By: #### M 100.678 ####[facility] [address] [place], [place], [id number] Urinalysis, Completeon 05-28 AMORPHOUS 1+ Normal [facility] Comment on above: Order Comment: CIRILO RUBIOR TO SPECIFY Performed By: #### L 400.0001 ####[facility] [address] [place], [place], [address] BACTERIA 1+ /hpf Normal None Seen [facility] Comment on above: Order Comment: CIRILO CTOR TO SPECIFY Performed By: #### L 400.0001 ####[facility] [address] [place], [address] EPI,SQUAMOUS 5-10 SEEN Normal 5-10 [facility] Comment on above: Order Comment: CIRILO CTOR TO SPECIFY Performed By: #### L 400.0001 ####[facility] [address] [place], [address] WBC 5-10 SEEN Normal 0-5 [facility] Comment on above: Order Comment: COLLE CTOR TO SPECIFY Performed By: #### L 400.0001 ####[facility] [address] [place], [address] Mucus Ql (Urine sed) 0 SEEN Normal [facility] Comment on above: Order Comment: COLLE CTOR TO SPECIFY Performed By: #### L 400.0001 ####[facility] [id number] [place], [address] RBC 0 SEEN Normal 0-5 [facility] Comment on above: Order Comment: COLLE CTOR TO SPECIFY Performed By: #### L 400.0001 ####[facility] [id number] [place], [place], [id number] CNOVon 12-24-2023 CNOV Office Visit (UCWSTR ) -- JERRELL STRICKLAND ([id number]) 1945 F Date Time Provider Department 12/24/23 3:00 PM NOELLE GARCIA [facility] During your visit today, we recorded the following information about you: Temperature Pulse Respiration Blood pressure 98.7 degrees 90/minute 18/minute 119/71 Weight 73 kg Noelle Garcia APRN.POND WORKER 12/30/2023 12:47 PM Addendum This note was [...] - PREDNISONE 10 MG TABLET Noelle Garcia APRN.POND WORKER Allergies As of Date: 12/24/2023 Noted Allergy Reaction ACETAMINOPHEN-CODEINE 10/13/2015 10 - Anaphylaxis Comments: Can tolerate [place] SEASONAL ALLERGIES 10/13/2015 14 - Other: See [...] for Encounter Date Provider Department Center 12/24/2023 [id number]-EVXKLENOELLE GARCIA UCWSTR [facility] Eulalia Encounter Status:Closed by NOELLE GARCIA on 12/24/23 Normal [facility] CNCOon 12-12-2023 CNCO Letter Text Normal [facility] CASE MANAGEMon 12-06-2023 CASE MANAGEM HNO ID: [id number] Author: ?, ?, ? Service: ? Author [...] 06, 2023 TIME: 12:37 PM PAGER/CONTACT #: [phone] [facility] CNDSon 12-06-2023 CNDS HNO ID: [id number] Author: ELIZABETH SHAHID APRN.POND WORKER Service: Hospital Medicine Author Type: Nurse Practitioner Type: Discharge Summary Filed: 12/06/2023 10:35 Note Text: -- Attestation signed by Vinicius Bolivar MD at 12/06/2023 12:[address] 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 Transferred to [facility] Main NSGY on 12/02/23 after OSH [...] Service: 4, Gim Nurse Practitioner: Elizabeth Shahid APRN.POND WORKER No orders of the defined types were [...] showed pneumocephal (more content not included)... Normal [facility] Renal function 2000 panelon 12-06-2023 Albumin [Mass/Vol] 3.8 g/dL Low 3.9-4.9 [facility] Comment on above: Order Comment: Speci men Type: BLOOD SPECIMENOrdering Facility: [facility] Address: [address] [place] [address] Performed By: #### 2 4362-6 ####[facility] [id number] [place] [address] [place] Anion gap [Moles/Vol] 11 mmol/L Normal 9-18 [facility] Comment on above: Order Comment: Speci men Type: BLOOD SPECIMENOrdering Facility: [facility] Address: [address] [place] [address] Performed By: #### 2 4362-6 ####[facility] [id number] [address] [address] [place] Calcium [Mass/Vol] 9.4 mg/dL Normal 8.5-10.2 [facility] Comment on above: Order Comment: Speci men Type: BLOOD SPECIMENOrdering Facility: [facility] Address: [address] [place] [address] Performed By: #### 2 4362-6 ####[facility] [id number] [place] [address] [place] Chloride [Moles/Vol] 102 mmol/L Normal 97-105 [facility] Comment on above: Order Comment: Speci men Type: BLOOD SPECIMENOrdering Facility: [facility] Address: [address] [place] [address] Performed By: #### 2 4362-6 ####[facility] [id number] [place] [address] [place] CO2 [Moles/Vol] 22 mmol/L Normal 22-30 [facility] Comment on above: Order Comment: Speci men Type: BLOOD SPECIMENOrdering Facility: [facility] Address: [address] [place] [address] Performed By: #### 2 4362-6 ####[facility] [id number] [place] [address] [place] Creatinine [Mass/Vol] 0.86 mg/dL Normal 0.58-0.96 [facility] Comment on above: Order Comment: Speci men Type: BLOOD SPECIMENOrdering Facility: [facility] Address: [address] [place] [address] Performed By: #### 2 4362-6 ####[facility] [id number] [place] [address] [facility] [place] Creatinine and Glomerular filtration rate.predicted panel (S/P/Bld) 68 mL/min/1.73m??? Normal >=60 [facility] Comment on above: Order Comment: Rajiv francis Type: BLOOD SPECIMENOrdering Facility: [facility] Address: [address] [place] [address] Result Comment: Audra mated Glomerular Filtration Rate [...] actual GFR. Performed By: #### 2 4362-6 ####[facility] [id number] [place] [address] [facility] Glucose [Mass/Vol] 95 mg/dL Normal 74-99 [facility] Comment on above: Order Comment: Rajiv francis Type: BLOOD SPECIMENOrdering Facility: [facility] Address: [address] [place] [address] Result Comment: The [place] Diabetes Association (ADA) provides guidance for cutoff [...] Standards of Medical Care in Diabetes 2016, [place] [employer]. Diabetes Care. 2016.39(Suppl 1). Performed By: #### 2 4362-6 ####[facility] [id number] [id number] [address] [place] Phosphate [Mass/Vol] 4.0 mg/dL Normal 2.7-4.8 [facility] Comment on above: Order Comment: Speci men Type: BLOOD SPECIMENOrdering Facility: [facility] Address: [address] [place] [address] Performed By: #### 2 4362-6 ####[facility] [id number] [place] [address] [place] Potassium [Moles/Vol] 4.5 mmol/L Normal 3.7-5.1 [facility] Comment on above: Order Comment: Speci men Type: BLOOD SPECIMENOrdering Facility: [facility] Address: [address] [place] [address] Performed By: #### 2 4362-6 ####[facility] [id number] [place] [address] [place] Sodium [Moles/Vol] 135 mmol/L Low 136-144 [facility] Comment on above: Order Comment: Speci men Type: BLOOD SPECIMENOrdering Facility: [facility] Address: [address] [place] [address] Performed By: #### 2 4362-6 ####[facility] [id number] [place] [address] [place] Urea nitrogen [Mass/Vol] 28 mg/dL High 7-21 [facility] Comment on above: Order Comment: Speci men Type: BLOOD SPECIMENOrdering Facility: [facility] Address: [address] [place] [address] Performed By: #### 2 4362-6 ####[facility] [id number] [place] [address] [place] Basic metabolic 2000 panelon 12-05-2023 Anion gap [Moles/Vol] 16 mmol/L Normal 9-18 [facility] Comment on above: Order Comment: Speci men Type: BLOOD SPECIMENOrdering Facility: [facility] Address: [address] [place] [address] Performed By: #### 2 4321-2, , 2776-07 ####[facility] [id number] [address] [address] [place] Calcium [Mass/Vol] 9.3 mg/dL Normal 8.5-10.2 [facility] Comment on above: Order Comment: Speci men Type: BLOOD SPECIMENOrdering Facility: [facility] Address: [address] [place] [address] Performed By: #### 2 4321-2, , 2776-07 ####[facility] [id number] [address] [address] [place] Chloride [Moles/Vol] 98 mmol/L Normal 97-105 [facility] Comment on above: Order Comment: Speci men Type: BLOOD SPECIMENOrdering Facility: [facility] Address: [address] [place] [address] Performed By: #### 2 4321-2, , 2776-07 ####[facility] [id number] [address] [address] [place] CO2 [Moles/Vol] 18 mmol/L Low 22-30 [facility] Comment on above: Order Comment: Speci men Type: BLOOD SPECIMENOrdering Facility: [facility] Address: [address] [place] [address] Performed By: #### 2 4321-2, , 2776-07 ####[facility] [id number] [address] [address] [place] Creatinine [Mass/Vol] 0.88 mg/dL Normal 0.58-0.96 [facility] Comment on above: Order Comment: Speci men Type: BLOOD SPECIMENOrdering Facility: [facility] Address: [address] [place] [address] Performed By: #### 2 4321-2, 84113-9, 2776-07 ####[facility] [id number] [place] [address] [place] Creatinine and Glomerular filtration rate.predicted panel (S/P/Bld) 67 mL/min/1.73m??? Normal >=60 [facility] Comment on above: Order Comment: Rajiv francis Type: BLOOD SPECIMENOrdering Facility: [facility] Address: [address] [place] [address] Result Comment: Audra mated Glomerular Filtration Rate [...] Performed By: #### 2 4321-2, , 2776-07 ####[facility] [id number] [place] [address] [place] Glucose [Mass/Vol] 119 mg/dL High 74-99 [facility] Comment on above: Order Comment: Rajiv francis Type: BLOOD SPECIMENOrdering Facility: [facility] Address: [address] [place] [address] Result Comment: The [place] Diabetes Association (ADA) provides guidance for cutoff [...] Standards of Medical Care in Diabetes 2016, [place] [employer]. Diabetes Care. 2016.39(Suppl 1). Performed By: #### 2 4321-2, , 2776-07 ####[facility] [id number] [address] [address] [place] Potassium [Moles/Vol] 5.0 mmol/L Normal 3.7-5.1 [facility] Comment on above: Order Comment: Speci men Type: BLOOD SPECIMENOrdering Facility: [facility] Address: [address] [place] [address] Performed By: #### 2 4321-2, , 2776-07 ####[facility] [id number] [place] [address] [place] Sodium [Moles/Vol] 132 mmol/L Low 136-144 [facility] Comment on above: Order Comment: Speci men Type: BLOOD SPECIMENOrdering Facility: [facility] Address: [address] [place] [address] Performed By: #### 2 4321-2, , 2776-07 ####[facility] [id number] [place] [address] [place] Urea nitrogen [Mass/Vol] 26 mg/dL High 7-21 [facility] Comment on above: Order Comment: Speci men Type: BLOOD SPECIMENOrdering Facility: [facility] Address: [address] [place] [address] Performed By: #### 2 4321-2, , 2776-07 ####[facility] [id number] [address] [address] [place] Magnesium SerPl-mCncon 12-04 Magnesium [Mass/Vol] 1.9 mg/dL Normal 1.7-2.3 [facility] Comment on above: Order Comment: Speci men Type: BLOOD SPECIMENOrdering Facility: [facility] Address: [address] [place] [address] Performed By: #### 2 4321-2, 32327-9, 2776- ####[facility] [id number] [place] [id number] [place] Phosphate SerPl-mCncon 12-04 Phosphate [Mass/Vol] 4.0 mg/dL Normal 2.7-4.8 [facility] Comment on above: Order Comment: Speci men Type: BLOOD SPECIMENOrdering Facility: [facility] Address: [address] [place] [address] Performed By: #### 2 4321-2, , 2776-07 ####[facility] [id number] [place] [address] [place] Basic metabolic 2000 panelon 12-04-2023 Anion gap [Moles/Vol] 17 mmol/L Normal 9-18 [facility] Comment on above: Order Comment: Speci men Type: BLOOD SPECIMENOrdering Facility: [facility] Address: [address] [place] [address] Performed By: #### 2 4321-2 ####[facility] [id number] [place] [address] [place] Calcium [Mass/Vol] 9.5 mg/dL Normal 8.5-10.2 [facility] Comment on above: Order Comment: Speci men Type: BLOOD SPECIMENOrdering Facility: [facility] Address: [address] [place] [address] Performed By: #### 2 4321-2 ####[facility] [id number] [place] [id number] [place] Chloride [Moles/Vol] 90 mmol/L Low 97-105 [facility] Comment on above: Order Comment: Speci men Type: BLOOD SPECIMENOrdering Facility: [facility] Address: [address] [place] [address] Performed By: #### 2 4321-2 ####[facility] [id number] [place] [address] [place] CO2 [Moles/Vol] 19 mmol/L Low 22-30 [facility] Comment on above: Order Comment: Speci men Type: BLOOD SPECIMENOrdering Facility: [facility] Address: [address] [place] [address] Performed By: #### 2 4321-2 ####[facility] [id number] [place] [address] [place] Creatinine [Mass/Vol] 0.92 mg/dL Normal 0.58-0.96 [facility] Comment on above: Order Comment: Speci men Type: BLOOD SPECIMENOrdering Facility: [facility] Address: [address] [place] [address] Performed By: #### 2 4321-2 ####[facility] [id number] [place] [address] [place] [facility] Creatinine and Glomerular filtration rate.predicted panel (S/P/Bld) 63 mL/min/1.73m??? Normal >=60 [facility] Comment on above: Order Comment: Speci men Type: BLOOD SPECIMENOrdering Facility: [facility] Address: [address] [place] [address] Result Comment: Audra mated Glomerular Filtration Rate [...] actual GFR. Performed By: #### 2 4321-2 ####[facility] [id number] [place] [address] [place] Glucose [Mass/Vol] 89 mg/dL Normal 74-99 [facility] Comment on above: Order Comment: Speci men Type: BLOOD SPECIMENOrdering Facility: [facility] Address: [address] [place] [id number] Result Comment: The [place] Diabetes [employer] (ADA) provides guidance for cutoff [...] Standards of Medical Care in Diabetes 2016, [place] [employer]. Diabetes Care. 2016.39(Suppl 1). Performed By: #### 2 4321-2 ####[facility] [id number] [place] [address] [place] Potassium [Moles/Vol] 4.2 mmol/L Normal 3.7-5.1 [facility] Comment on above: Order Comment: Speci men Type: BLOOD SPECIMENOrdering Facility: [facility] Address: [address] [place] [address] Performed By: #### 2 4321-2 ####[facility] [id number] [place] [address] [place] Sodium [Moles/Vol] 126 mmol/L Low 136-144 [facility] Comment on above: Order Comment: Speci men Type: BLOOD SPECIMENOrdering Facility: [facility] Address: [address] [place] [id number] Performed By: #### 2 4321-2 ####[facility] [id number] [place] [address] [place] Urea nitrogen [Mass/Vol] 21 mg/dL Normal 7-21 [facility] Comment on above: Order Comment: Speci men Type: BLOOD SPECIMENOrdering Facility: [facility] Address: [address] [place] [address] Performed By: #### 2 4321-2 ####[facility] [id number] [place] [address] [place] Anion gap [Moles/Vol] 15 mmol/L Normal 9-18 [facility] Comment on above: Order Comment: Speci men Type: BLOOD SPECIMENOrdering Facility: [facility] Address: [address] [place] [address] Performed By: #### 2 4321-2 ####[facility] [id number] [place] [address] [place] Calcium [Mass/Vol] 9.5 mg/dL Normal 8.5-10.2 [facility] Comment on above: Order Comment: Speci men Type: BLOOD SPECIMENOrdering Facility: [facility] Address: [address] [place] [address] Performed By: #### 2 4321-2 ####[facility] [id number] [place] [address] [place] Chloride [Moles/Vol] 92 mmol/L Low 97-105 [facility] Comment on above: Order Comment: Speci men Type: BLOOD SPECIMENOrdering Facility: [facility] Address: [address] [place] [address] Performed By: #### 2 4321-2 ####[facility] [id number] [place] [address] [place] CO2 [Moles/Vol] 20 mmol/L Low 22-30 [facility] Comment on above: Order Comment: Speci men Type: BLOOD SPECIMENOrdering Facility: [facility] Address: [address] [place], [place] [address] Performed By: #### 2 4321-2 ####[facility] [id number] [place] [address] [place] Creatinine [Mass/Vol] 0.85 mg/dL Normal 0.58-0.96 [facility] Comment on above: Order Comment: Rajiv francis Type: BLOOD SPECIMENOrdering Facility: [facility] Address: [address] [place] [address] Performed By: #### 2 4321-2 ####[facility] [id number] [place] [address] [place] Creatinine and Glomerular filtration rate.predicted panel (S/P/Bld) 69 mL/min/1.73m??? Normal >=60 [facility] Comment on above: Order Comment: Rajiv francis Type: BLOOD SPECIMENOrdering Facility: [facility] Address: [address] [place] [address] Result Comment: Audra mated Glomerular Filtration Rate [...] actual GFR. Performed By: #### 2 4321-2 ####[facility] [id number] [place] [address] [place] Glucose [Mass/Vol] 86 mg/dL Normal 74-99 [facility] Comment on above: Order Comment: Rajiv francis Type: BLOOD SPECIMENOrdering Facility: [facility] Address: [address] [place] [address] Result Comment: The [place] Diabetes Association (ADA) provides guidance for cutoff [...] Standards of Medical Care in Diabetes 2016, [place] [employer]. Diabetes Care. 2016.39(Suppl 1). Performed By: #### 2 4321-2 ####[facility] [id number] [place] [address] [place] Potassium [Moles/Vol] 4.3 mmol/L Normal 3.7-5.1 [facility] Comment on above: Order Comment: Speci men Type: BLOOD SPECIMENOrdering Facility: [facility] Address: [address] [place] [address] Performed By: #### 2 4321-2 ####[facility] [id number] [place] [address] [place] Sodium [Moles/Vol] 127 mmol/L Low 136-144 [facility] Comment on above: Order Comment: Speci men Type: BLOOD SPECIMENOrdering Facility: [facility] Address: [address] [place] [address] Performed By: #### 2 4321-2 ####[facility] [id number] [place] [address] [place] Urea nitrogen [Mass/Vol] 19 mg/dL Normal 7-21 [facility] Comment on above: Order Comment: Speci men Type: BLOOD SPECIMENOrdering Facility: [facility] Address: [address] [place] [address] Performed By: #### 2 4321-2 ####[facility] [id number] [place] [id number] [place] CONSULT PROGon 12-04-2023 CONSULT PROG HNO ID: [id number] Author: JULIO HERNÁNDEZ RPh Service: Pharmacy Author [...] questions, please contact Julio Hernández pharmD at [id number]. Estimated Creatinine Clearance: 36.2 mL/min (A) (based [...] 12/01/2023 162.6 cm (5' 4) Julio Hernández [facility] December 04, 2023 8:45 AM Normal [facility] THERAPY NTon 12-04-2023 THERAPY NT HNO ID: [id number] Author: MANUEL DISLA, PT, DPT Service: Physical Therapy Author Type: Physical Therapist Type: Therapy (PT/OT/Speech/Resp) Filed: 12/04/2023 07:22 Note Text: THERAPY COMMUNICATION SERVICE DATE: 12/04/2023 ROOM: H060[facility] Occupational therapy consult received. Chart reviewed. No [...] December 04, 2023 TIME: 7:22 AM Normal [facility] Basic metabolic 2000 panelon 12-03-2023 Anion gap [Moles/Vol] 15 mmol/L Normal 9-18 [facility] Comment on above: Order Comment: Speci men Type: BLOOD SPECIMENOrdering Facility: [facility] Address: [address] [place] [address] Performed By: #### 2 4321-2, 3083-1 ####[facility] [id number] [place] [address] [place] Calcium [Mass/Vol] 9.1 mg/dL Normal 8.5-10.2 [facility] Comment on above: Order Comment: Speci men Type: BLOOD SPECIMENOrdering Facility: [facility] Address: [address] [place] [address] Performed By: #### 2 4321-2, 3083- ####[facility] [id number] [place] [address] [place] Chloride [Moles/Vol] 89 mmol/L Low 97-105 [facility] Comment on above: Order Comment: Speci men Type: BLOOD SPECIMENOrdering Facility: [facility] Address: [address] [place] [address] Performed By: #### 2 4321-2, 3083-1 ####[facility] [id number] [place] [id number] [place] CO2 [Moles/Vol] 20 mmol/L Low 22-30 [facility] Comment on above: Order Comment: Speci men Type: BLOOD SPECIMENOrdering Facility: [facility] Address: [address] [place] [address] Performed By: #### 2 4321-2, 3083-1 ####[facility] [id number] [address] [address] [place] Creatinine [Mass/Vol] 1.22 mg/dL High 0.58-0.96 [facility] Comment on above: Order Comment: Speci penny Type: BLOOD SPECIMENOrdering Facility: [facility] Address: [address] [place] [address] Performed By: #### 2 4321-2, 3083-1 ####[facility] [id number] [place] [address] [place] Creatinine and Glomerular filtration rate.predicted panel (S/P/Bld) 45 mL/min/1.73m??? Low >=60 [facility] Comment on above: Order Comment: Rajiv francis Type: BLOOD SPECIMENOrdering Facility: [facility] Address: [address] [place] [address] Result Comment: Audra mated Glomerular Filtration Rate [...] GFR. Performed By: #### 2 4321-2, 3083-07 ####[facility] [id number] [place] [address] [place] Glucose [Mass/Vol] 109 mg/dL High 74-99 [facility] Comment on above: Order Comment: Specera francis Type: BLOOD SPECIMENOrdering Facility: [facility] Address: [address] [place] [address] Result Comment: The [place] [employer] (ADA) provides guidance for cutoff [...] Standards of Medical Care in Diabetes 2016, [place] [employer]. Diabetes Care. 2016.39(Suppl 1). Performed By: #### 2 4321-2, 3083- ####[facility] [id number] [place] [address] [place] Potassium [Moles/Vol] 4.3 mmol/L Normal 3.7-5.1 [facility] Comment on above: Order Comment: Rehanai men Type: BLOOD SPECIMENOrdering Facility: [facility] Address: [address] [place] [address] Performed By: #### 2 4320-2, 3083-07 ####[facility] [id number] [place] [address] [place] Sodium [Moles/Vol] 124 mmol/L Low 136-144 [facility] Comment on above: Order Comment: Rajiv francis Type: BLOOD SPECIMENOrdering Facility: [facility] Address: [address] [place] [address] Performed By: #### 2 4320-2, 3083-07 ####[facility] [id number] [place] [address] [place] Urea nitrogen [Mass/Vol] 20 mg/dL Normal 7-21 [facility] Comment on above: Order Comment: Rehanai men Type: BLOOD SPECIMENOrdering Facility: [facility] Address: [address] [place] [address] Performed By: #### 2 4320-2, 3083- ####[facility] [id number] [place] [address] [place] Anion gap [Moles/Vol] 13 mmol/L Normal 9-18 [facility] Comment on above: Order Comment: Speci men Type: BLOOD SPECIMENOrdering Facility: [facility] Address: [address] [place] [id number] Performed By: #### 2 4321-2 ####[facility] [id number] [address] [address] [place] Calcium [Mass/Vol] 9.3 mg/dL Normal 8.5-10.2 [facility] Comment on above: Order Comment: Speci men Type: BLOOD SPECIMENOrdering Facility: [facility] Address: [address] [place], [place] [address] Performed By: #### 2 4321-2 ####[facility] [id number] [place] [address] [place] Chloride [Moles/Vol] 95 mmol/L Low 97-105 [facility] Comment on above: Order Comment: Speci men Type: BLOOD SPECIMENOrdering Facility: [facility] Address: [address] [place], [place] [address] Performed By: #### 2 4321-2 ####[facility] [id number] [place] [address] [place] CO2 [Moles/Vol] 20 mmol/L Low 22-30 [facility] Comment on above: Order Comment: Speci men Type: BLOOD SPECIMENOrdering Facility: [facility] Address: [address] [place], [place] [address] Performed By: #### 2 4321-2 ####[facility] [id number] [place] [id number] [place] Creatinine [Mass/Vol] 0.96 mg/dL Normal 0.58-0.96 [facility] Comment on above: Order Comment: Speci men Type: BLOOD SPECIMENOrdering Facility: [facility] Address: [address] [place], [place] [address] Performed By: #### 2 4321-2 ####[facility] [id number] [place] [address] [place] Creatinine and Glomerular filtration rate.predicted panel (S/P/Bld) 60 mL/min/1.73m??? Normal >=60 [facility] Comment on above: Order Comment: Rajiv francis Type: BLOOD SPECIMENOrdering Facility: [facility] Address: [address] [place] [address] Result Comment: Audra mated Glomerular Filtration Rate [...] actual GFR. Performed By: #### 2 4321-2 ####[facility] [id number] [place] [address] [place] Glucose [Mass/Vol] 87 mg/dL Normal 74-99 [facility] Comment on above: Order Comment: Rajiv francis Type: BLOOD SPECIMENOrdering Facility: [facility] Address: [address] [place] [address] Result Comment: The [place] [employer] (ADA) provides guidance for cutoff [...] Standards of Medical Care in Diabetes 2016, [place] [employer]. Diabetes Care. 2016.39(Suppl 1). Performed By: #### 2 4321-2 ####[facility] [id number] [place] [address] [place] Potassium [Moles/Vol] 4.2 mmol/L Normal 3.7-5.1 [facility] Comment on above: Order Comment: Speci men Type: BLOOD SPECIMENOrdering Facility: [facility] Address: [address] [place] [address] Performed By: #### 2 4321-2 ####[facility] [id number] [place] [address] [place] Sodium [Moles/Vol] 128 mmol/L Low 136-144 [facility] Comment on above: Order Comment: Speci men Type: BLOOD SPECIMENOrdering Facility: [facility] Address: [address] [place] [address] Performed By: #### 2 4321-2 ####[facility] [id number] [place] [address] [place] Urea nitrogen [Mass/Vol] 16 mg/dL Normal 7-21 [facility] Comment on above: Order Comment: Speci men Type: BLOOD SPECIMENOrdering Facility: [facility] Address: [address] [place] [address] Performed By: #### 2 4321-2 ####[facility] [id number] [place] [address] [place] Creatinine Unsp time (U) [Ma ss/Vol]on 12-03-2023 Creatinine (U) [Mass/Vol] 137.0 mg/dL Normal 20.0-300.0 [facility] Comment on above: Order Comment: Speci men Type: URINE SPECIMENOrdering Facility: [facility] Address: [address] [place] [address] Performed By: #### 3 5674-1, 69930-6, UUNR ####[facility] [id number] [place] [address] [place] Osmolality SerPlon Osmolality [Osmolality] 267 mosm/kg Low 275-300 [facility] Comment on above: Order Comment: Speci men Type: BLOOD SPECIMENOrdering Facility: [facility] Address: [address] [place] [address] Performed By: #### 2 692-2 ####[facility] [id number] [place] [address] [place] Osmolality Uron 12-03-2023 Osmolality (U) [Osmolality] 427 mosm/kg Normal 50-1200 [facility] Comment on above: Order Comment: Speci men Type: URINE SPECIMENOrdering Facility: [facility] Address: [address] [place] [address] Performed By: #### 2 695-5 ####[facility] [id number] [place] [address] [place] Sodium ?Tm Ur-sCncon 024 Sodium Unsp time (U) [Moles/Vol] 99 mmol/L Normal 14-216 [facility] Comment on above: Order Comment: Speci men Type: URINE SPECIMENOrdering Facility: [facility] Address: [address] [place] [address] Performed By: #### 3 5674-1, 23720-3, UUNR ####[facility] [id number] [place] [address] [place] Sodium SerPl-sCncon 12-03-19 24 Sodium [Moles/Vol] 125 mmol/L Low 136-144 [facility] Comment on above: Order Comment: Speci men Type: BLOOD SPECIMENOrdering Facility: [facility] Address: [address] [place] [address] Performed By: #### 2 951-2 ####[facility] [id number] [place] [address] [place] THERAPY NTon 12-03-2023 THERAPY NT HNO ID: [id number] Author: SLOAN MOON, PT, DPT Service: Physical Therapy Author Type: Physical Therapist Type: Therapy (PT/OT/Speech/Resp) Filed: 12/03/2023 15:25 Note Text: Physical Therapy Evaluation Summary SERVICE DATE: 12/03/2023 SERVICE TIME: 1428 to 1448 ROOM: [place] [address] PT 6 Clicks Score: 24 DISCHARGE RECOMMENDATIONS [...] Presented to OSH with hyponatremia. Transferred to [facility] Main NSGY on 12/02/23 after OSH [...] December 03, 2023 TIME: 3:25 PM Normal [facility] UREA NITROGEN, RANDOM URINEo n 12-03-2023 UREA NITROGEN,UR,RAN 358 mg/dL Normal 140-1500 [facility] Comment on above: Order Comment: Speci men Type: URINE SPECIMENOrdering Facility: [facility] Address: [address] [place] [address] Performed By: #### 3 5674-1, 58949-6, UUNR ####[facility] [id number] [place] [address] [place] Urate SerPl-mCncon 4 Urate [Mass/Vol] 6.2 mg/dL Normal 2.5-6.6 [facility] Comment on above: Order Comment: Speci men Type: BLOOD SPECIMENOrdering Facility: [facility] Address: [address] [place] [address] Performed By: #### 2 4321-2, 3084-1 ####[facility] [id number] [place] [address] [place] ANTIBODY ID PATIENTon 2023 ANTIBODY IDENTIFIED Anti-M Normal [facility] Comment on above: Order Comment: Speci men Type: BLOOD SPECIMEN [facility] Address: [address] [place] [address] Performed By: #### 2 4323-8, 29302-5, 2777-1, 3016-3 #### [facility] [id number] [address] [place] [address] [place] ANTIBODY SCREENon 12-02-2023 HISTORICAL AB SCR STATUS Positive Abnormal [facility] Comment on above: Order Comment: Speci men Type: BLOOD SPECIMEN [facility] Address: [address] [place] [address] Performed By: #### 2 4323-8, 43647-6, 2777-1, 3016-3 #### [facility] [id number] [address] [place] [address] BLOOD BANK PLACEHOLDER, ANTI BODY INTERPRETATIONon 12-02-2023 BLOOD BANK REPORT, ANTIBODY INTERPRETATION See Pathology Report Normal [facility] Comment on above: Order Comment: Speci men Type: BLOOD SPECIMEN [facility] Address: [address] [place] [address] Performed By: #### 2 4323-8, 83599-7, 2777-1, 6-3 #### [facility] [id number] [address] [place] [address] BLOOD BANK REPORT, ANTIBODY INTERPRETATIONon 12-02-2023 PATHOLOGY INTERPRETATION Normal [facility] Comment on above: Order Comment: Speci men Type: BLOOD SPECIMEN [facility] Address: [address] [place] [address] Result Comment: Anti -M, an alloantibody to [...] are required. Performed By: #### 2 4323-8, 36728-4, 2777-1, 3016-3 #### [facility] [id number] [address] [place] [address] [place] CBC W Auto Differential pane l (Bld)on 12-02-2023 Basophils (Bld) [#/Vol] 0.09 10*3/uL Normal <0.11 [facility] Comment on above: Order Comment: Speci men Type: BLOOD SPECIMEN [facility] Address: [address] [place] [address] Performed By: #### 2 4323-8, 81651-7, 277-1, 6-3 #### [facility] [id number] [address] [place] [address] [place] Basophils/100 WBC (Bld) 1.1 % Normal [facility] Comment on above: Order Comment: Speci men Type: BLOOD SPECIMEN [facility] Address: [address] [place] [address] Performed By: #### 2 4323-8, 79374-1, 277-1, 6-3 #### [facility] [id number] [address] [place] [address] [place] Differential cell count method Nom (Bld) Auto Normal [facility] Comment on above: Order Comment: Speci men Type: BLOOD SPECIMEN [facility] Address: [address] [place] [address] Performed By: #### 2 4323-8, 30963-8, 277-1, 6-3 #### [facility] [id number] [address] [place] [address] [place] Eosinophils (Bld) [#/Vol] 0.26 10*3/uL Normal <0.46 [facility] Comment on above: Order Comment: Speci men Type: BLOOD SPECIMEN [facility] Address: [address] [place] [address] Performed By: #### 2 4323-8, 01544-5, 277-1, 3016-3 #### [facility] [id number] [address] [place] [address] [place] Eosinophils/100 WBC (Bld) 3.1 % Normal [facility] Comment on above: Order Comment: Speci men Type: BLOOD SPECIMEN [facility] Address: [address] [place] [address] Performed By: #### 2 4323-8, 68660-8, 277-, 6-3 #### [facility] [id number] [address] [place] [address] [place] Erythrocyte distribution width (RBC) [Ratio] 12.8 % Normal 11.5-15.0 [facility] Comment on above: Order Comment: Speci men Type: BLOOD SPECIMEN [facility] Address: [address] [place] [address] Performed By: #### 2 4323-8, 75248-8, 277-, 6-3 #### [facility] [id number] [address] [place] [address] [place] Hematocrit (Bld) [Volume fraction] 34.2 % Low 36.0-46.0 [facility] Comment on above: Order Comment: Speci men Type: BLOOD SPECIMEN [facility] Address: [address] [place] [address] Performed By: #### 2 4323-8, 66558-0, 277-, 6-3 #### [facility] [id number] [address] [place] [address] [place] Hemoglobin (Bld) [Mass/Vol] 11.6 g/dL Normal 11.5-15.5 [facility] Comment on above: Order Comment: Speci men Type: BLOOD SPECIMEN [facility] Address: [address] [place], [place] [address] Performed By: #### 2 4323-8, 90041-4, 2776-1, 6-3 #### [facility] [id number] [address] [place] [address] [place] Immature granulocytes (Bld) [#/Vol] 10*3/uL Normal <0.10 [facility] Comment on above: Order Comment: Speci men Type: BLOOD SPECIMEN [facility] Address: [address] [place] [address] Performed By: #### 2 4323-8, 89317-6, 2776-, 6-3 #### [facility] [id number] [address] [place] [address] [place] Immature granulocytes/100 WBC (Bld) 0.2 % Normal [facility] Comment on above: Order Comment: Speci men Type: BLOOD SPECIMEN [facility] Address: [address] [place] [address] Performed By: #### 2 4323-8, 79026-6, 2776-1, 6-3 #### [facility] [id number] [address] [place] [address] [place] Lymphocytes (Bld) [#/Vol] 1.21 10*3/uL Normal 1.00-4.00 [facility] Comment on above: Order Comment: Speci men Type: BLOOD SPECIMEN [facility] Address: [address] [place], [place] [address] Performed By: #### 2 4323-8, 98241-3, 2776-, 6-3 #### [facility] [id number] [address] [place], [place] [address] [place] Lymphocytes/100 WBC (Bld) 14.3 % Normal [facility] Comment on above: Order Comment: Speci men Type: BLOOD SPECIMEN [facility] Address: [address] [place] [address] Performed By: #### 2 4323-8, 11851-8, 7-1, 6-3 #### [facility] [id number] [address] [place] [address] [place] MCH (RBC) [Entitic mass] 33.3 pg Normal 26.0-34.0 [facility] Comment on above: Order Comment: Speci men Type: BLOOD SPECIMEN [facility] Address: [address] [place] [address] Performed By: #### 2 4323-8, 07902-5, 2776-1, 3016-3 #### [facility] [id number] [address] [place] [address] [place] MCHC (RBC) [Mass/Vol] 33.9 g/dL Normal 30.5-36.0 [facility] Comment on above: Order Comment: Speci men Type: BLOOD SPECIMEN [facility] Address: [address] [place] [address] Performed By: #### 2 4323-8, 92678-9, 277-1, 6-3 #### [facility] [id number] [address] [place] [address] [place] MCV (RBC) [Entitic vol] 98.3 fL Normal 80.0-100.0 [facility] Comment on above: Order Comment: Speci men Type: BLOOD SPECIMEN [facility] Address: [address] [place] [address] Performed By: #### 2 4323-8, 94275-4, 277-1, 3016-3 #### [facility] [id number] [address] [place] [address] [place] Monocytes (Bld) [#/Vol] 0.83 10*3/uL Normal <0.87 [facility] Comment on above: Order Comment: Speci men Type: BLOOD SPECIMEN [facility] Address: [address] [place] [address] Performed By: #### 2 4323-8, 65082-4, 2777-1, 3016-3 #### [facility] [id number] [address] [place] [address] [place] Monocytes/100 WBC (Bld) 9.8 % Normal [facility] Comment on above: Order Comment: Speci men Type: BLOOD SPECIMEN [facility] Address: [address] [place] [address] Performed By: #### 2 4323-8, 20198-9, 2777-1, 3016-3 #### [facility] [id number] [address] [place] [address] [place] Neutrophils (Bld) [#/Vol] 6.08 10*3/uL Normal 1.45-7.50 [facility] Comment on above: Order Comment: Speci men Type: BLOOD SPECIMEN [facility] Address: [address] [place] [address] Performed By: #### 2 4323-8, 03485-6, 2777-1, 3016-3 #### [facility] [id number] [address] [place] [address] [place] Neutrophils/100 WBC (Bld) 71.5 % Normal [facility] Comment on above: Order Comment: Speci men Type: BLOOD SPECIMEN [facility] Address: [address] [place] [address] Performed By: #### 2 4323-8, 07717-3, 2777-1, 3016-3 #### [facility] [id number] [address] [place] [address] [place] Nucleated RBC (Bld) [#/Vol] 10*3/uL Normal <0.01 [facility] Comment on above: Order Comment: Speci men Type: BLOOD SPECIMEN [facility] Address: [address] [place] [address] Performed By: #### 2 4323-8, 85828-4, 2777-1, 3016-3 #### [facility] [id number] [address] [place] [address] [place] Nucleated RBC/100 WBC (Bld) [Ratio] 0.0 /100 WBC Normal [facility] Comment on above: Order Comment: Speci men Type: BLOOD SPECIMEN [facility] Address: [address] [place] [address] Performed By: #### 2 4323-8, 79651-4, 2777-1, 3016-3 #### [facility] [id number] [address] [place] [address] [place] Platelet mean volume (Bld) [Entitic vol] 10.8 fL Normal 9.0-12.7 [facility] Comment on above: Order Comment: Speci men Type: BLOOD SPECIMEN [facility] Address: [address] [place] [address] Performed By: #### 2 4323-8, 84566-7, 2777-1, 3016-3 #### [facility] [id number] [address] [place] [address] [place] Platelets (Bld) [#/Vol] 231 10*3/uL Normal 150-400 [facility] Comment on above: Order Comment: Speci men Type: BLOOD SPECIMEN [facility] Address: [address] [place] [address] Performed By: #### 2 4323-8, 38576-9, 2777-1, 3016-3 #### [facility] [id number] [address] [place] [address] [place] RBC (Bld) [#/Vol] 3.48 10*6/uL Low 3.90-5.20 [facility] Comment on above: Order Comment: Speci men Type: BLOOD SPECIMEN [facility] Address: [address] [place], [place] [address] Performed By: #### 2 4323-8, 39755-7, 2777-1, 3016-3 #### [facility] [id number] [address] [place] [address] [place] WBC (Bld) [#/Vol] 8.49 10*3/uL Normal 3.70-11.00 [facility] Comment on above: Order Comment: Speci men Type: BLOOD SPECIMEN [facility] Address: [address] [place], [place] [address] Performed By: #### 2 4323-8, 56160-7, 2777-1, 3016-3 #### [facility] [id number] [address] [place], [place] [address] [place] CONSULTon 12-02-2023 CONSULT HNO ID: [id number] Author: BRISA MICHAEL MD Service: General Internal [...] showed pneumocephalus so she was transferred to [facility] and admitted under neurosurgery. Upon arrival to [facility], she underwent repeat labs which showed [...] Date APPENDECTOMY HYSTERECTOMY HX partial- done in [place] LAMINECTOMY W/O FFD 07/12 VERT SEG LUMBAR [...] tab(s) ( (more content not included)... Normal [facility] CT BRAIN WO IVCONon 05-24-[address] BRAIN WO IVCON * * *Final Report* * * DATE OF EXAM: Dec 02 2023 3:57PM [facility] [place] - CT BRAIN WO IVCON / [...] No acute intracranial infarction, hemorrhage, or pneumocephalus. System Engineer: [email or web address] Transcribe Date/Time: Dec 02 2023 3:58P Dictated by : OCTAVIO SAMSON MD This examination was interpreted and the report reviewed and electronically signed by: LANA HOPKINS MD on Dec 02 2023 4:05PM EST [id number] Normal [facility] Comprehensive metabolic 2000 panelon 12-02-2023 Albumin [Mass/Vol] 4.1 g/dL Normal 3.9-4.9 [facility] Comment on above: Order Comment: Speci men Type: BLOOD SPECIMEN [facility] Address: [address] [place] [address] Performed By: #### 2 4323-8, 63432-2, 2777-1, 3016-3 #### [facility] [id number] [address] [place] [address] [place] ALP [Catalytic activity/Vol] 104 U/L Normal 34-123 [facility] Comment on above: Order Comment: Speci men Type: BLOOD SPECIMEN [facility] Address: [address] [place] [address] Performed By: #### 2 4323-8, 25235-4, 2777-1, 3016-3 #### [facility] [id number] [address] [place] [address] [place] ALT [Catalytic activity/Vol] 24 U/L Normal 7-38 [facility] Comment on above: Order Comment: Speci men Type: BLOOD SPECIMEN [facility] Address: [address] [place] [address] Performed By: #### 2 4323-8, 28182-1, 2777-1, 3016-3 #### [facility] [id number] [address] [place], [place] [address] [place] Anion gap [Moles/Vol] 11 mmol/L Normal 9-18 [facility] Comment on above: Order Comment: Speci men Type: BLOOD SPECIMEN [facility] Address: [address] [place] [address] Performed By: #### 2 4323-8, 69141-6, 2777-1, 3016-3 #### [facility] [id number] [address] [place], [place] [address] [place] AST [Catalytic activity/Vol] 28 U/L Normal 13-35 [facility] Comment on above: Order Comment: Speci men Type: BLOOD SPECIMEN [facility] Address: [address] [place] [address] Result Comment: Resu lts may be falsely increased due to interference from hemolysis. Suggest reorder as clinically indicated. Performed By: #### 2 4323-8, 78350-2, 2776-1, 6-3 #### [facility] [id number] [address] [place] [address] [place] Bilirubin [Mass/Vol] 0.4 mg/dL Normal 0.2-1.3 [facility] Comment on above: Order Comment: Speci men Type: BLOOD SPECIMEN [facility] Address: [address] [place] [address] Performed By: #### 2 4323-8, , 2776-, 3016-3 #### [facility] [id number] [address] [place] [address] [place] Calcium [Mass/Vol] 9.2 mg/dL Normal 8.5-10.2 [facility] Comment on above: Order Comment: Speci men Type: BLOOD SPECIMEN [facility] Address: [address] [place] [address] Performed By: #### 2 4323-8, , 2776-, 3016-3 #### [facility] [id number] [address] [place] [address] [place] Chloride [Moles/Vol] 95 mmol/L Low 97-105 [facility] Comment on above: Order Comment: Speci men Type: BLOOD SPECIMEN [facility] Address: [address] [place] [address] Performed By: #### 2 4323-8, , 2776-, 3016-3 #### [facility] [id number] [address] [place] [address] [place] CO2 [Moles/Vol] 22 mmol/L Normal 22-30 [facility] Comment on above: Order Comment: Speci men Type: BLOOD SPECIMEN [facility] Address: [address] [place] [address] Performed By: #### 2 4323-8, 47091-3, 2776-1, 6-3 #### [facility] [id number] [address] [place] [address] [place] Creatinine [Mass/Vol] 0.61 mg/dL Normal 0.58-0.96 [facility] Comment on above: Order Comment: Rajiv francis Type: BLOOD SPECIMEN [facility] Address: [address] [place] [address] Performed By: #### 2 4323-8, , 2776-, 3015-3 #### [facility] [id number] [address] [place] [address] [place] Creatinine and Glomerular filtration rate.predicted panel (S/P/Bld) 91 mL/min/1.73m??? Normal >=60 [facility] Comment on above: Order Comment: Rajiv francis Type: BLOOD SPECIMEN [facility] Address: [address] [place] [address] Result Comment: Audra mated Glomerular Filtration Rate [...] actual GFR. Performed By: #### 2 4323-8, 22895-2, 2776-, 3015-3 #### [facility] [id number] [address] [place] [address] [place] Glucose [Mass/Vol] 121 mg/dL High 74-99 [facility] Comment on above: Order Comment: Rajiv francis Type: BLOOD SPECIMEN [facility] Address: [address] [place] [address] Result Comment: The [place] [employer] (ADA) provides guidance for cutoff [...] Standards of Medical Care in Diabetes 2016, [place] [employer]. Diabetes Care. 2016.39(Suppl 1). Performed By: #### 2 4323-8, 75510-8, 2777-1, 3016-3 #### [facility] [id number] [address] [place] [address] [place] Potassium [Moles/Vol] 4.5 mmol/L Normal 3.7-5.1 [facility] Comment on above: Order Comment: Specera francis Type: BLOOD SPECIMEN [facility] Address: [address] [place] [address] Performed By: #### 2 4323-8, 00184-9, 2777-1, 6-3 #### [facility] [id number] [address] [place] [address] [place] Protein [Mass/Vol] 6.9 g/dL Normal 6.3-8.0 [facility] Comment on above: Order Comment: Rajiv francis Type: BLOOD SPECIMEN Order[facility] Address: [address] [place] [address] Performed By: #### 2 4323-8, 73714-9, 2777-1, 3016-3 #### [facility] [id number] [address] [place] [address] [place] Sodium [Moles/Vol] 128 mmol/L Low 136-144 [facility] Comment on above: Order Comment: Rehanai men Type: BLOOD SPECIMEN [facility] Address: [address] [place] [address] Performed By: #### 2 4323-8, 81766-6, 2777-1, 3016-3 #### [facility] [id number] [address] [place] [address] [place] Urea nitrogen [Mass/Vol] 11 mg/dL Normal 7-21 [facility] Comment on above: Order Comment: Speci men Type: BLOOD SPECIMEN Ordering Facility: [facility] Address: [address] [place] [address] Performed By: #### 2 4323-8, 88930-1, 2777-1, 3016-3 #### [facility] CLIA [id number] [address] [place] [address] [place] Cortis SerPl-mCncon 12-02-19 Cortisol [Mass/Vol] 5.9 ug/dL Normal 4.8-19.5 [facility] Comment on above: Order Comment: Speci men Type: BLOOD SPECIMENOrdering Facility: [facility] Address: [address] [place] [address] Result Comment: Prov ided reference range is from 6-10 AM sample collection time. Cortisol Reference Range: 6-10 AM = 4.8-19.5 ug/dL, 4-8 PM = 2.5-11.9 ug/dL Performed By: #### 2 143-6, 54204-4 ####[facility] [id number] [place] [address] [place] ECG COMPLETEon 12-02-2023 ECG COMPLETE Ventricular Rate : 5 7 BPM Atrial Rate : 57 BPM P-R Interval : 190 ms QRS Duration : 94 ms Q-T Interval : 424 ms QTC Calculation(Bazett) : 412 ms Calculated P [place] : 61 degrees Calculated R [place] : -23 degrees Calculated T [place] : 17 degrees SINUS BRADYCARDIA WITH OCCASIONAL PREMATURE VENTRICULAR COMPLEXES MINIMAL VOLTAGE CRITERIA FOR LVH, MAY BE NORMAL VARIANT BORDERLINE ECG Confirmed by KALA CORONADO MD ([id number]) on 12/07/2023 3:00:23 PM NAME : JERRELL STRICKLAND PID : [id number] : 1945 Gender : Female Race : ORD : [id number] Procedure Date : Dec 02 2023 13:11:28 [...] CHARLI JACK Acquired by : BRAD LOCKETT [facility] HISTORY PHYSICALon HISTORY PHYSICAL HNO ID: [id number] Author: SHAYY ALCARAZ MD Service: Neurosurgery Author [...] repair, 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 Transferred to [facility] Main NS on 12/02/23 after OSH [...] Date APPENDECTOMY HYSTERECTOMY HX partial- done in [place] LAMINECTOMY W/O FFD 07/12 VERT SEG LUMBAR [...] good oral careDisp: Rfl: gabapentin 300 mg [id number] 300 mg by mouth daily at bedtime.Disp: [...] mg INTRAV (more content not included)... Normal [facility] Magnesium SerPl-mCncon 12-01 Magnesium [Mass/Vol] 1.7 mg/dL Normal 1.7-2.3 [facility] Comment on above: Order Comment: Rajiv francis Type: BLOOD SPECIMEN Ordering Facility: [facility] Address: [address] [place] [address] Performed By: #### 2 4323-8, 29817-0, 2777-1, 3016-3 #### [facility] CLIA [id number] [address] [place], [place] [address] [address] [place] PT panel Coag (PPP)on 2023 INR Coag (PPP) [Relative time] 1.1 {INR} Normal 0.9-1.3 [facility] Comment on above: Order Comment: Rajiv francis Type: BLOOD SPECIMENOrdering Facility: [facility] Address: [address] [place] [address] Result Comment: Lin min K Antagonist (VKA) Therapeutic Range: INR 2 to 3 (Target INR of 2.5) Note: For patients treated with VKA drugs, such as warfarin, the [employer] 2012 Guideline recommends [...] Chest 2012, 141:7S-47S Judah ISAAC et al. [facility] 2017, 70: 252-289 Performed By: #### 3 4528-0, 89688-5 ####[facility] [id number] [place] [address] [place] PT Coag (PPP) [Time] 11.4 s Normal 9.7-13.0 [facility] Comment on above: Order Comment: Speci men Type: BLOOD SPECIMENOrdering Facility: [facility] Address: [address] [place] [address] Performed By: #### 3 4528-0, 85698-3 ####[facility] [id number] [place] [address] [place] Phosphate SerPl-mCncon 12-01 Phosphate [Mass/Vol] 3.0 mg/dL Normal 2.7-4.8 [facility] Comment on above: Order Comment: Speci men Type: BLOOD SPECIMEN Ordering Facility: [facility] Address: [address] [place] [address] Performed By: #### 2 4323-8, 63643-2, 2777-1, 3016-3 #### [facility] CLIA [id number] [address] [place] [address] [place] STAPHYLOCOCCUS AUREUS AND MR SA SCREEN, PCR, NASALon 12-02-2023 S. aureus and MRSA panel PRIYANKA+probe (Nose) Not detected Normal Not Detected [facility] Comment on above: Order Comment: Speci men Type: SWAB Ordering Facility: [facility] Address: [address] [place] [address] Performed By: #### S APCR #### [facility] CLIA [id number] [address] [place] [address] [place] TSH SerPl-aCncon 12-02-2023 TSH Qn 1.520 m[IU]/L Normal 0.270-4.20 0 [facility] Comment on above: Order Comment: Speci men Type: BLOOD SPECIMEN Ordering Facility: [facility] Address: [address] [place] [address] Performed By: #### 2 4323-8, 49267-9, 2777-1, 3016-3 #### [facility] CLIA [id number] [address] [place], [place] [id number] [place] TYPE + SCREENon 12-02-2023 ABO O Normal [facility] Comment on above: Order Comment: Speci men Type: BLOOD SPECIMEN Ordering Facility: [facility] Address: [address] [place] [address] Performed By: #### 2 4323-8, 65319-4, 2776-1, 6-3 #### [facility] CLIA [id number] [address] [place], [place] [address] [place] HISTORICAL AB SCR STATUS Negative Normal [facility] Comment on above: Order Comment: Speci men Type: BLOOD SPECIMEN Ordering Facility: [facility] Address: [address] [place] [address] Performed By: #### 2 4323-8, 58175-7, 2776-1, 3015-3 #### [facility] CLIA [id number] [address] [place], [place] [address] [place] Rh Nom (Bld) Positive Normal [facility] Comment on above: Order Comment: Speci men Type: BLOOD SPECIMEN Ordering Facility: [facility] Address: [address] [place] [address] Performed By: #### 2 4323-8, 20856-0, 277-1, 3015-3 #### [facility] CLIA [id number] [address] [place], [place] [address] [place] TYPE AND SCREEN EXPIRATION 12/05/2023 23:59 Normal [facility] Comment on above: Order Comment: Speci men Type: BLOOD SPECIMEN Ordering Facility: [facility] Address: [address] [place] [address] Performed By: #### 2 4323-8, 57635-1, 277-1, 6-3 #### [facility] CLIA [id number] [address] [place], [place] [address] [place] URINALYSIS, REFLEX MICROSCOP ICon 12-02-2023 Bilirubin Ql (U) Negative Normal Negative [facility] Comment on above: Order Comment: Speci men Type: URINE SPECIMENOrdering Facility: [facility] Address: [address] [place] [address] Performed By: #### L [id number] ####[facility] [id number] [place] [address] [place] Clarity (Unsp spec) Clear Normal Clear [facility] Comment on above: Order Comment: Speci men Type: URINE SPECIMENOrdering Facility: [facility] Address: [address] [place] [address] Performed By: #### L [id number] ####[facility] [id number] [place] [address] [place] Color (U) Yellow Normal Yellow [facility] Comment on above: Order Comment: Speci men Type: URINE SPECIMENOrdering Facility: [facility] Address: [address] [place] [address] Performed By: #### L [id number] ####[facility] [id number] [place] [address] [place] Glucose Test strip (U) [Mass/Vol] Negative Normal Negative [facility] Comment on above: Order Comment: Speci men Type: URINE SPECIMENOrdering Facility: [facility] Address: [address] [place] [address] Performed By: #### L [id number] ####[facility] [id number] [place] [address] [place] Hemoglobin Ql (U) Negative Normal Negative [facility] Comment on above: Order Comment: Speci men Type: URINE SPECIMENOrdering Facility: [facility] Address: [address] [place] [address] Performed By: #### L [id number] ####[facility] [id number] [place] [address] [place] Ketones Ql (U) Negative Normal Negative [facility] Comment on above: Order Comment: Speci men Type: URINE SPECIMENOrdering Facility: [facility] Address: [address] [place] [address] Performed By: #### L [id number] ####[facility] [id number] [place] [address] [place] Leukocyte esterase Test strip Ql (U) Negative Normal Negative [facility] Comment on above: Order Comment: Speci men Type: URINE SPECIMENOrdering Facility: [facility] Address: [address] [place] [address] Performed By: #### L [id number] ####[facility] [id number] [place] [address] [place] Nitrite Ql (U) Negative Normal Negative [facility] Comment on above: Order Comment: Speci men Type: URINE SPECIMENOrdering Facility: [facility] Address: [address] [place] [address] Performed By: #### L [id number] ####[facility] [id number] [place] [address] [place] pH (U) 8.0 [pH] Normal <8.5 [facility] Comment on above: Order Comment: Speci men Type: URINE SPECIMENOrdering Facility: [facility] Address: [address] [place] [address] Performed By: #### L [id number] ####[facility] [id number] [place] [address] [place] Protein (U) [Mass/Vol] Negative Normal Negative [facility] Comment on above: Order Comment: Speci men Type: URINE SPECIMENOrdering Facility: [facility] Address: [address] [place] [address] Performed By: #### L [id number] ####[facility] [id number] [place] [address] [place] Specific gravity (U) [Rel density] 1.011 Normal 1.005-1.03 0 [facility] Comment on above: Order Comment: Speci men Type: URINE SPECIMENOrdering Facility: [facility] Address: [address] [place] [address] Performed By: #### L [id number] ####[facility] [id number] [place] [address] [place] Urobilinogen Ql (U) 0.2 EU/dL Normal 0.2-1.0 EU/dL [facility] Comment on above: Order Comment: Speci men Type: URINE SPECIMENOrdering Facility: [facility] Address: [address] [place] [address] Performed By: #### L [id number] ####[facility] [id number] [place] [address] [place] aPTT PPPon 12-02-2023 aPTT Coag (PPP) [Time] 29.1 s Normal 23.0-32.4 Cl [facility] Comment on above: Order Comment: Speci men Type: BLOOD SPECIMENOrdering Facility: [facility] Address: [address] [place] [address] Performed By: #### 3 4528-0, 95913-3 ####[facility] [id number] [place] [address] [place] CNTHERAPYon 11-18-2023 CNTHERAPY OT/PT/Speech Visit (OTNOCA) -- BEICHLER,JERRELL D ([id number]) 1945 F Date Time Provider Department 11/18/23 3:30 PM HERMELINDA BAKER MAGDY Date Time Provider Department Center 11/18/2023 3:30 PM [id number][facility] Reason for Visit: OT Discharge [...] mouth daily at bedtime. Letter Text Normal [facility] Laboratory - Drug toxicology Ordered By: Harshad Camacho on 11-15-2023 Amphetamines Ql (U) Negative <1000 ng/mL [facility] Benzodiazepines Ql (U) Negative < 200 ng/mL [facility] Cannabinoids Screen Ql (U) Negative < 50 ng/mL [facility] Cocaine Ql (U) Negative < 300 ng/mL [facility] Opiates Ql (U) Positive < 300 ng/mL [facility] No Panel InformationOrdered By: Harshad Camacho on 11-15-2023 MDMA (Ecstasy) Screen Negative < 500 ng/mL [facility] Urine Barbiturates Screen Negative < 200 ng/mL [facility] Urine Drug Screen Comment [facility] Comment on above: CONFIRMATORY TESTING FOR ALL [...] TESTING MUST BE ORDERED SEPARATELY. USE TESTMNEMONIC: [facility] Urine Methadone Screen Negative < 300 ng/mL [facility] Urine phencyclidine (PCP) de tectionOrdered By: Harshad Camacho on 11-15-2023 Phencyclidine Ql (U) Negative < 25 ng/mL [facility] CNPNon 11-10-2023 CNPN Telephone (OTNOCA) -- JERRELL STRICKLAND ([id number]) 1945 F Date Time Provider Department 11/10/23 [...] Encounter Status:Closed by HERMELINDA BAKER on 11/10/23 [facility] [id number] 11-06-2023 [id number] O ID: [id number] Author: HERMELINDA BAKER OT/L Service: ? Author Type: Occupational Therapist Type: [id number] Filed: 11/06/2023 13:42 Note Text: [facility] Occupational Therapy Plan of Care Certification Patient Name: Jerrell Strickland : 1945 CCF #: [id number] Date: 10/28/2023 To: Dionne Magaña MD From Therapist: JOSE DANIEL Feng RE: Patient Certification/ Recertification Your review, approval and electronic signature are required in order to comply with Payor: [facility] MEDICARE ADVANTAGE / Plan[place] / Product Type: HMO / regulations. 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 2.Patient will complete functional mobility task with good safety awareness during behind the wheel assessment. Planned Interventions, Frequency, and Duration: Current Frequency: 1 visit Duration: 1 visit Total Number of Visits Planned: 1 Patient to be see for Intake Clinician rehab evaluation, Patient/Family/Caregiver Education PLAN FOR NEXT [...] treatment plan for Jerrell Magdi Strickland, CCF# [id number] for the period of 10/28/23 -- , established on 10/28/2023. Signature certifies the need for therapy services. [facility] CNTHERAPYon 10-28-2023 CNTHERAPY OT/PT/Speech Visit (OTNOCA) -- MARCO AJERRELL ([id number]) 1945 F Date Time Provider Department 10/28/23 1:30 PM HERMELINDA BAKER [facility] Date Time Provider Department Center 10/28/2023 1:30 PM [id number], JULIE A [facility] [facility] N Reason for Visit: OT [...] once daily. -- Letter Text Letter Text [facility] Basophil percentageOrdered B y: Dionne Magaña on 10-03-2023 Bilirubin [Mass/Vol] 0.50 mg/dL 0.20-1.00 [facility] Comment on above: For patients on eltr ombopag therapy, use of Dimension [place] TBIL is not recommended. Chloride [Moles/Vol] 104 mmol/L 98-107 [facility] Glucose [Mass/Vol] 98 mg/dL 74-106 [facility] Potassium [Moles/Vol] 4.6 mmol/L 3.5-5.1 [facility] Protein [Mass/Vol] 7.2 g/dL 6.4-8.2 [facility] Sodium [Moles/Vol] 134 mmol/L 136-145 [facility] Laboratory - Chemistry and C hemistry - challengeOrdered By: Dionne Magaña on 10-03-2023 Albumin/Globulin [Mass ratio] 1.1 {ratio} 0.9-2.4 [facility] ALP [Catalytic activity/Vol] 94 U/L 45-117 [facility] ALT [Catalytic activity/Vol] 25 U/L 13-56 [facility] CO2 [Moles/Vol] 25.0 mmol/L 21.0-32.0 [facility] Globulin (S) [Mass/Vol] 3.5 g/dL 2.2-4.2 [facility] Urea nitrogen/Creatinine [Mass ratio] 19.1 mg/mg 10-20 [facility] No Panel InformationOrdered By: Dionne Magaña on 10-03-2023 Anti-Nuclear Antibody Screen Positive Negative [facility] Comment on above: Performed at: [facility] [address] [id number] Director: Ciaran Myers PhD, Phone: [phone] [facility] B Antibody <0.2 AI 0.0-0.9 [facility] Estimated GFR (MDRD) Amer 74 mL/min >60 [facility] Comment on above: GFR Calc Estimated GFR (MDRD) Non-Af Amer 61 mL/min >60 [facility] Comment on above: Non- GFR Calc SEBASTIEN-1 Antibody <0.2 AI 0.0-0.9 [facility] PUBLIC RELATIONS ASSOCIATE Antibody 6.4 AI 0.0-0.9 [facility] SM Antibody <0.2 AI 0.0-0.9 [facility] SS-A/Ro IgG Antibody < 0.2 AI 0.0-0.9 [facility] SS-B/La IgG Antibody < 0.2 AI 0.0-0.9 [facility] Serum DNA double strand anti body assay (units/volume)Ordered By: Dionne Magaña on 10-03-2023 DNA double strand Ab Qn (S) [IU]/mL 0-9 [facility] Comment on above: Negative <5 Equivoca l 5 - 9 Positive >9 Serum Scl-70 antibody assay (units/volume)Ordered By: Dionne Magaña on 10-03-2023 SCL-70 extractable nuclear Ab Qn (S) <0.2 AI 0.0-0.9 [facility] Serum or plasma calcium jd urement (mass/volume)Ordered By: Dionne Magaña on 10-03-2023 Calcium [Mass/Vol] 9.5 mg/dL 8.5-10.1 [facility] Serum or plasma creatinine m easurement (mass/volume)Ordered By: Dionne Magaña on 10-03-2023 Creatinine [Mass/Vol] 0.94 mg/dL 0.55-1.02 [facility] Comment on above: The validity of the calculated GFR & GFRAA in patients over 70 years has not been determined. Clinical correlation is essential. Serum or plasma thyroid stim ulating hormone (TSH) measurement (units/volume)Ordered By: Dionne Magaña on 10-03-2023 TSH Qn 0.56 uIU/mL 0.358-3.74 [facility] Serum or plasma triiodothyro nine measurement by immunoassay (mass/volume)Ordered By: Dionne Magaña on 10-03-2023 T3 IA [Mass/Vol] 1.02 ng/mL 0.6-1.81 [facility] Serum or plasma urea nitroge n measurement (mass/volume)Ordered By: Dionne Magaña on 10-03-2023 Urea nitrogen [Mass/Vol] 18 mg/dL 7-18 [facility] Thin prep Papanicolaou smear with manual screeningOrdered By: Dionne Magaña on 10-03-2023 Thin prep Papanicolaou smear with manual screening 3.7 g/dL 3.2-5.0 [facility] Thin prep Papanicolaou smear with manual screening 19 U/L 15-37 [facility] Thin prep Papanicolaou smear with manual screening 5 5-15 [facility] Thin prep Papanicolaou smear with manual screening 1.07 ng/dL 0.76-1.[address] [facility] [address] SPINE CERVICAL W/O CONTRA STon 09-17-2023 [...] CHANGES: There are multilevel degenerative changes, with [id number] 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 Multilevel neural [...] 09/17/2023 5:51:29 PM Ordering Provider: REBECCA GAMEZ [facility] ([place]) CT SPINE THORACIC W/O GRISELDAA Cayla 09-17-2023 [...] 09/17/2023 6:18:18 PM Ordering Provider: REBECCA GAMEZ [facility]) CT THORAX W/O CONTRASTon CT THORAX W/O [...] by: Rajinder Sparrow Preliminary Report By: Joseph Jrodan Electronically signed By Rajinder Sparrow Dictated Date: 09/17/2023 5:46:57 PM Prelim Date: 09/17/2023 5:54:07 PM Sign Date: 09/17/2023 6:18:46 PM Ordering Provider: REBECCA GAMEZ [facility] ([place]) XR SHOULDER MINIMUM 2 VIEWS LEFTon 09-17-2023 [...] 09/17/2023 5:59:01 PM Ordering Provider: REBECCA GAMEZ [facility]) XR SHOULDER MINIMUM 2 VIEWS RIGHTon 09-17-2023 [...] 09/17/2023 6:19:53 PM Ordering Provider: REBECCA GAMEZ [facility]) Basophil percentageOrdered B y: Brad Lal on 08-22-2023 Bilirubin [Mass/Vol] 0.30 mg/dL 0.20-1.00 [facility] Comment on above: For patients on eltr ombopag therapy, use of Dimension [place] TBIL is not recommended. Chloride [Moles/Vol] 107 mmol/L 98-107 [facility] Glucose [Mass/Vol] 140 mg/dL 74-106 [facility] Comment on above: Fasting Glucose resu lt greater than or equal to 126 mg/dL suggests DIABETES MELLITUS per A.D.A. criteria. Potassium [Moles/Vol] 4.5 mmol/L 3.5-5.1 [facility] Protein [Mass/Vol] 6.8 g/dL 6.4-8.2 [facility] Sodium [Moles/Vol] 141 mmol/L 136-145 [facility] Direct bilirubinOrdered By: Brad Lal on 08-22-2023 Bilirubin.direct [Mass/Vol] 0.10 mg/dL 0.00-0.30 [facility] Laboratory - Chemistry and C hemistry - challengeOrdered By: Brad Lal on 08-22-2023 Albumin/Globulin [Mass ratio] 1.1 {ratio} 0.9-2.4 [facility] ALP [Catalytic activity/Vol] 103 U/L 45-117 [facility] ALT [Catalytic activity/Vol] 32 U/L 13-56 [facility] CO2 [Moles/Vol] 27.0 mmol/L 21.0-32.0 [facility] Globulin (S) [Mass/Vol] 3.3 g/dL 2.2-4.2 [facility] Urea nitrogen/Creatinine [Mass ratio] 17.0 mg/mg 10-20 [facility] No Panel InformationOrdered By: Brad Lal on 08-22-2023 Estimated GFR (MDRD) Amer 60 mL/min >60 [facility] Comment on above: GFR Calc Estimated GFR (MDRD) Non-Af Amer 50 mL/min >60 [facility] Comment on above: Non- GFR Calc Serum or plasma calcium jd urement (mass/volume)Ordered By: Brad Lal on 08-22-2023 Calcium [Mass/Vol] 9.7 mg/dL 8.5-10.1 [facility] Serum or plasma creatinine m easurement (mass/volume)Ordered By: Brad Lal on 08-22-2023 Creatinine [Mass/Vol] 1.12 mg/dL 0.55-1.02 [facility] Comment on above: The validity of the calculated GFR & GFRAA in patients over 70 years has not been determined. Clinical correlation is essential. Serum or plasma urea nitroge n measurement (mass/volume)Ordered By: Brad Lal on 08-22-2023 Urea nitrogen [Mass/Vol] 19 mg/dL 7-18 [facility] Thin prep Papanicolaou smear with manual screeningOrdered By: Brad Lal on 08-22-2023 Thin prep Papanicolaou smear with manual screening 3.5 g/dL 3.2-5.0 [facility] Thin prep Papanicolaou smear with manual screening 23 U/L 15-37 [facility] Thin prep Papanicolaou smear with manual screening 7 5-15 [facility] Bacteria identified Cx Nom ( Wound)Ordered By: Brad Lal on 08-01-2023 Wound Culture Pseudomonas aeruginosa [facility] Wound Culture Pseudomonas aeruginosa [facility] Gram stain for investigation of transfusion reactionOrdered By: Brad Lal on 08-01-2023 Microscopic observation Gram stain Nom (Unsp spec) [facility] Microscopic observation Gram stain Nom (Unsp spec) [facility] CNOVon 07-27-2023 CNOV Office Visit (UCWSTR ) -- JERRELL STRICKLAND ([id number]) 1945 F Date Time Provider Department 07/27/23 3:30 PM J LUIS SANCHES [facility] During your visit today, we recorded the following information about you: Temperature Pulse Respiration Blood pressure 96.8 degrees 80/minute 21/minute 134/76 Weight 72.7 kg J Luis Sanches APRN.POND WORKER 07/27/2023 3:34 PM Signed Subjective Came in with complaints of sore right outer calf. Patient says there is some redness around it. Patient's not sure how long she has had it. Patient denies any numbness tingling loss of feeling fever chills or nausea. The history is provided by the patient. No director targeted marketing was used. Review of Systems Constitutional: Negative. [...] Date APPENDECTOMY HYSTERECTOMY HX partial- done in [place] LAMINECTOMY W/O FFD 07/12 VERT SEG LUMBAR [...] with this care plan J Luis Sanches APRN.POND WORKER Allergies As of Date: 07/27/2023 Noted Allergy [...] mouth ev (more content not included)... Normal [facility] XR RIBS 2 VIEWS RIGHT/PA DENITA [...] 07/25/2023 8:22:21 AM Ordering Provider: DIONNE Martin [facility] ([place]) [facility] 07-18-2023 [facility] Telephone (UCTR) -- JERRELL STRICKLAND ([id number]) 1945 F Date Time Provider Department 07/18/23 AELX LAW [facility] During your visit today, [...] Status:Closed by SARAH BRADFORD on 07/19/23 Normal [facility] Bacteria Wnd Culton 07-15-19 24 Bacteria [...] , Intermediate >.5 , Resistant >1 Abnormal [facility] Comment on above: Performed By: #### 2 4323-8, 59544-8, 2777-1, 3016-3 #### [facility] CLIA [id number] [address] [place] CNOVon 07-15-2023 CNOV Office Visit (UCWSTR ) -- JERRELL STRICKLAND ([id number]) 1945 F Date Time Provider Department 07/15/23 9:15 AM FRANCOISE VALENTINO [facility] During your visit today, we recorded the following information about you: Temperature Pulse Respiration Blood pressure 97.1 degrees 87/minute 18/minute 135/72 Weight 71.7 kg Francoise Valentino PA 07/15/2023 9:26 AM Signed This note was created using [email or web address]. Subjective Jerrell Strickland is a 78 year [...] Date APPENDECTOMY HYSTERECTOMY HX partial- done in [place] LAMINECTOMY W/O FFD 07/12 VERT SEG LUMBAR [...] -Advised if (more content not included)... Normal [facility] Laboratory - Chemistry and C hemistry - challengeOrdered By: Dayday Hairston on 07-13-2023 T4 [Mass/Vol] 14.8 ug/dL 4.8-13.9 [facility] No Panel InformationOrdered By: Dayday Hairston on 07-13-2023 Reverse Triiodothyronine (T3) 31.7 ng/dL 9.2-24.1 [facility] [facility] Comment on above: Performed at: [address] [id number] Director: Jensen Santiago MD, Phone: [phone] Thyroid Stimulating Hormone (TSH) 0.55 uIU/mL 0.358-3.74 [facility] Absolute lymphocyte countOrd ered By: Dayday Hairston on 06-24-2023 Lymphocytes Auto (Unsp spec) [#/Vol] 2.17 10*3/uL 0.83-4.51 [facility] Basophil percentageOrdered B y: Dayday Hairston on 06-24-2023 Basophils/100 WBC (Bld) 1.8 % 0-1 [facility] Bilirubin [Mass/Vol] 0.50 mg/dL 0.20-1.00 [facility] Comment on above: For patients on eltr ombopag therapy, use of [employer] [place] TBIL is not recommended. Chloride [Moles/Vol] 104 mmol/L 98-107 [facility] Eosinophils/100 WBC (Bld) 5.9 % 0-5 [facility] Glucose [Mass/Vol] 100 mg/dL 74-106 [facility] Comment on above: Fasting Glucose resu lt from 100 to 125 mg/dL suggests IMPAIRED HOMEOSTASIS per A.D.A. criteria. Neutrophils (Bld) [#/Vol] 5.5 10*3/uL 2.0-7.7 [facility] Neutrophils/100 WBC (Bld) 56.3 % 47-70 [facility] Potassium [Moles/Vol] 4.2 mmol/L 3.5-5.1 [facility] Protein [Mass/Vol] 7.2 g/dL 6.4-8.2 [facility] Sodium [Moles/Vol] 138 mmol/L 136-145 [facility] WBC (Bld) [#/Vol] 9.8 10*3/uL 4.4-11.0 [facility] Blood erythrocytes count (nu mber/volume)Ordered By: Dayday Hairston on 06-24-2023 RBC (Bld) [#/Vol] 3.79 10*6/uL 4.2-5.4 [facility] Blood hemoglobin measurement (mass/volume)Ordered By: Dayday Hairston on 06-24-2023 Hemoglobin (Bld) [Mass/Vol] 12.7 g/dL 12.0-15.0 [facility] Blood lymphocytes/100 leukoc ytesOrdered By: Dayday Hairston on 06-24-2023 Lymphocytes/100 WBC (Bld) 22.1 % 19-41 [facility] Blood monocytes/100 leukocyt esOrdered By: Dayday Hairston on 06-24-2023 Monocytes/100 WBC (Bld) 13.3 % 0-10 [facility] Blood platelet mean volumeOr dered By: Dayday Hairston on 06-24-2023 Platelet mean volume (Bld) [Entitic vol] 11.6 fL 6.2-12.0 [facility] Determination of erythrocyte mean corpuscular volume (MCV)Ordered By: Dayday Hairston on 06-24-2023 MCV (RBC) [Entitic vol] 104.5 fL 81-99 [facility] Erythrocyte sedimentation ra teOrdered By: Dayday Hairston on 06-24-2023 ESR (Bld) [Velocity] 13 mm/h 0-30 [facility] Hematocrit Auto (Bld) [Volum e fraction]Ordered By: Dayday Hairston on 06-24-2023 Hematocrit (Bld) [Volume fraction] 39.6 % 37-47 [facility] Laboratory - Chemistry and C hemistry - challengeOrdered By: Dayday Hairston on 06-24-2023 ALP [Catalytic activity/Vol] 80 U/L 45-117 [facility] ALT [Catalytic activity/Vol] 23 U/L 13-56 [facility] CO2 [Moles/Vol] 30.0 mmol/L 21.0-32.0 [facility] Globulin (S) [Mass/Vol] 3.9 g/dL 2.2-4.2 [facility] Urea nitrogen/Creatinine [Mass ratio] 21.8 mg/mg 10-20 [facility] Laboratory - Hematology and Cell countsOrdered By: Dayday Hairston on 06-24-2023 Erythrocyte distribution width (RBC) [Entitic vol] 49.1 fL 35.1-43.9 [facility] Erythrocyte distribution width (RBC) [Ratio] 12.6 % 11.6-14.6 [facility] Immature granulocytes/100 WBC (Bld) 0.600 % 0.0-0.9 [facility] Comment on above: IG% - Immature Granu locytes (promyelocytes, myelocytes and metamyelocytes) > 1% indicates that a LEFT SHIFT is Present. MCH (RBC) [Entitic mass] 33.5 pg 27.0-32.0 [facility] Nucleated RBC/100 WBC (Bld) [Ratio] 0 % 0-5 [facility] MCHC Auto (RBC) [Mass/Vol]Or dered By: Dayday Hairston on 06-24-2023 MCHC (RBC) [Mass/Vol] 32.1 g/dL 32-36 [facility] No Panel InformationOrdered By: Dayday Hairston on 06-24-2023 Estimated GFR (MDRD) Amer 76 mL/min >60 [facility] Comment on above: GFR Calc Estimated GFR (MDRD) Non-Af Amer 63 mL/min >60 [facility] Comment on above: Non- GFR Calc Thyroid Stimulating Hormone (TSH) 0.33 uIU/mL 0.358-3.74 [facility] Platelets bldOrdered By: Alex Hairston on 06-24-2023 Platelets (Bld) [#/Vol] 331 10*3/uL 150-450 [facility] Serum or plasma albumin jd urement (mass/volume)Ordered By: Dayday Hairston on 06-24-2023 Albumin [Mass/Vol] 3.3 g/dL 3.2-5.0 [facility] Serum or plasma albumin/glob ulin mass ratioOrdered By: Dayday Hairston on 06-24-2023 Albumin/Globulin [Mass ratio] 0.8 {ratio} 0.9-2.4 [facility] Serum or plasma calcium jd urement (mass/volume)Ordered By: Dayday Hairston on 06-24-2023 Calcium [Mass/Vol] 9.7 mg/dL 8.5-10.1 [facility] Serum or plasma creatinine m easurement (mass/volume)Ordered By: Dayday Hairston on 06-24-2023 Creatinine [Mass/Vol] 0.92 mg/dL 0.55-1.02 [facility] Comment on above: The validity of the calculated GFR & GFRAA in patients over 70 years has not been determined. Clinical correlation is essential. Serum or plasma urea nitroge n measurement (mass/volume)Ordered By: Dayday Hairston on 06-24-2023 Urea nitrogen [Mass/Vol] 20 mg/dL 7-18 [facility] Thin prep Papanicolaou smear with manual screeningOrdered By: Dayday Hairston on 06-24-2023 Thin prep Papanicolaou smear with manual screening 20 U/L 15-37 [facility] Thin prep Papanicolaou smear with manual screening 4 5-15 [facility] Whole blood hemoglobin A1c/t otal hemoglobin ratio (mass fraction)Ordered By: Dayday Hairston on 06-24-2023 HbA1c (Bld) [Mass fraction] 5.7 % 3.8-5.6 [facility] Comment on above: Normal < 5.7 % Predi abetic 5.7 - 6.4 % Diabetic >or= 6.5 % Please note range changes. Nura 06-15-2023 HELADIO Telephone ([facility]) -- JERRELL STRICKLAND ([id number]) 1945 F Date Time Provider Department 06/15/23 [facility] your visit today, we recorded [...] Status:Closed by SARAH BRADFORD LPN on 06/16/23 [facility] Nura 06-14-2023 HELADIO Telephone ([facility]) -- JERRELL STRICKLAND ([id number]) 1945 F Date Time Provider Department 06/14/23 [facility] During your visit today, we recorded the following information about you: Suzanne Galeana LPN 06/14/2023 7:31 AM Signed ----- Message from Giovana Patterson APRN.POND WORKER sent at 06/14/2023 7:14 AM EST ----- [...] Date Reviewed: 06/13/2023 Reviewed by: Ai Moura APRN.POND WORKER - Fully Assessed Reason for Visit: Results [...] by MAYLIN MARTINEZ LPN on 06/14/23 [facility] Bacteria Ur Culton 3 Bacteria identified Cx Nom (U) ORGANISM ID: 1 50,000-<100,000 CFU/ml Mixed microbiota No further workup. Mixed microbiota can be due to???urine???contamination with skin bacteria at time of collection or presence of a long-term urinary catheter. If a new culture is needed, please consider re-education of the patient on proper midstream collection technique or straight catheterization for???urine???collection. Normal [facility] Comment on above: Performed By: #### 2 4323-8, 63518-0, 2777-1, 3016-3 #### [facility] CLIA [id number] [address] [place] CNOVon 06-13-2023 CNOV Office Visit ([facility] ) -- JERRELL STRICKLAND ([id number]) 1945 F Date Time Provider Department 06/13/23 4:30 PM AI MOURA [facility] During your visit today, we recorded the following information about you: Temperature Pulse Respiration Blood pressure 99.3 degrees 89/minute 16/minute 137/67 Weight 74 kg Ai Moura APRN.POND WORKER 06/13/2023 5:23 PM Signed Subjective HPI HPI [...] Date APPENDECTOMY HYSTERECTOMY HX partial- done in [place] LAMINECTOMY W/O FFD 07/12 VERT SEG LUMBAR [...] Normal ra (more content not included)... Normal [facility] FLUABV + SARS-CoV-2 Pnl Resp PRIYANKA+prbon 06-13-2023 Influenza virus A and B RNA and SARS-CoV-2 (COVID-19) N gene panel PRIYANKA+probe (Resp) COVID 19 RESULT: Not detected The method used is RT-PCR or an equivalent NAAT method. Reference Range (the expected result in uninfected individuals): Not detected INFLUENZA A PCR: Not detected INFLUENZA B PCR: Not detected [facility] Comment on above: Performed By: #### 2 4323-8, 62774-8, 2777-1, 3016-3 #### [facility] CLIA [id number] [address] [place] [address] [place] STREP A MOLECULAR (POC)on Procedural Control Valid [facility] Strep A (POCT) Negative Negative [facility] UA DIP, URINE (POC)on 2022 BILIRUBIN UA (POCT) Negative Negative [facility] CLARITY UA (POCT) Clear [facility] COLOR UA (POCT) Yellow [facility] GLUCOSE UA (POCT) Negative Negative mg/dL [facility] Hemoglobin Ql (U) Negative [facility] KETONE UA (POCT) Negative Negative mg/dL [facility] LEUKOCYTES UA (POCT) Trace Abnormal Negative [facility] NITRITE UA (POCT) Negative Negative [facility] PH UA (POCT) 5.5 4.5 - 8.0 [facility] Protein Ql (U) Negative Negative mg/dL [facility] SPECIFIC GRAVITY UA (POCT) 1.025 1.005 - 1.030 [facility] UROBILINOGEN UA (POCT) 0.2 E.U./dL Rayne l E.U./dL [facility] Absolute lymphocyte countOrd ered By: Tanner Hahn on 06-06-2023 Lymphocytes Auto (Unsp spec) [#/Vol] 1.82 10*3/uL 0.83-4.51 [facility] Basophil percentageOrdered B y: Tanner Hahn on 06-06-2023 Basophils/100 WBC (Bld) 0.8 % 0-1 [facility] Eosinophils/100 WBC (Bld) 3.1 % 0-5 [facility] Neutrophils (Bld) [#/Vol] 8.3 10*3/uL 2.0-7.7 [facility] Neutrophils/100 WBC (Bld) 69.6 % 47-70 [facility] WBC (Bld) [#/Vol] 11.9 10*3/uL 4.4-11.0 [facility] Blood erythrocytes count (nu mber/volume)Ordered By: Tanner Hahn on 06-06-2023 RBC (Bld) [#/Vol] 3.70 10*6/uL 4.2-5.4 [facility] Blood hemoglobin measurement (mass/volume)Ordered By: Tanner Hahn on 06-06-2023 Hemoglobin (Bld) [Mass/Vol] 12.8 g/dL 12.0-15.0 [facility] Blood lymphocytes/100 leukoc ytesOrdered By: Tanner Hahn on 06-06-2023 Lymphocytes/100 WBC (Bld) 15.3 % 19-41 [facility] Blood monocytes/100 leukocyt esOrdered By: Tanner Hanh on 06-06-2023 Monocytes/100 WBC (Bld) 10.3 % 0-10 [facility] Blood platelet mean volumeOr dered By: Tanner Hahn on 06-06-2023 Platelet mean volume (Bld) [Entitic vol] 11.0 fL 6.2-12.0 [facility] Determination of erythrocyte mean corpuscular volume (MCV)Ordered By: Tanner Hahn on 06-06-2023 MCV (RBC) [Entitic vol] 105.9 fL 81-99 [facility] Erythrocyte sedimentation ra teOrdered By: Tanner Hahn on 06-06-2023 ESR (Bld) [Velocity] 17 mm/h 0-30 [facility] Hematocrit Auto (Bld) [Volum e fraction]Ordered By: Tanner Hahn on 06-06-2023 Hematocrit (Bld) [Volume fraction] 39.2 % 37-47 [facility] Laboratory - Hematology and Cell countsOrdered By: Tanner Hahn on 06-06-2023 Erythrocyte distribution width (RBC) [Entitic vol] 51.8 fL 35.1-43.9 [facility] Erythrocyte distribution width (RBC) [Ratio] 13.2 % 11.6-14.6 [facility] Immature granulocytes/100 WBC (Bld) 0.900 % 0.0-0.9 [facility] Comment on above: IG% - Immature Granu locytes (promyelocytes, myelocytes and metamyelocytes) > 1% indicates that a LEFT SHIFT is Present. MCH (RBC) [Entitic mass] 34.6 pg 27.0-32.0 [facility] Nucleated RBC/100 WBC (Bld) [Ratio] 0 % 0-5 [facility] MCHC Auto (RBC) [Mass/Vol]Or dered By: Tanner Hahn on 06-06-2023 MCHC (RBC) [Mass/Vol] 32.7 g/dL 32-36 [facility] Platelets bldOrdered By: Tanner Hahn on 06-06-2023 Platelets (Bld) [#/Vol] 315 10*3/uL 150-450 [facility] Serum or plasma C reactive p rotein measurement (mass/volume)Ordered By: Tanner Hahn on 06-06-2023 CRP [Mass/Vol] 5.01 mg/L 0.0-3.0 [facility] Comment on above: C-Reactive Protein ( CRP) provides useful information for thediagnosis, therapy and monitoring of inflammatory processesand associated diseases. For the evaluation of Relative Riskfor Cardiovascular Disease, a High Sensitivity CRP (HSCRP)should be ordered. Laboratory - Drug toxicology Ordered By: Harshad Camacho on 05-26-2023 Amphetamines Ql (U) Negative <1000 ng/mL [facility] Benzodiazepines Ql (U) Negative < 200 ng/mL [facility] Cannabinoids Screen Ql (U) Negative < 50 ng/mL [facility] Cocaine Ql (U) Negative < 300 ng/mL [facility] Opiates Ql (U) Positive < 300 ng/mL [facility] No Panel InformationOrdered By: Harshad Camacho on 05-26-2023 MDMA (Ecstasy) Screen Negative < 500 ng/mL [facility] Miscellaneous Test See comment [facility] Comment on above: [id number] 6+OXYCODONE-B UND (ng/mL) DRUG RESULT SCREEN CUTOFF____ Amphetamines,Urine Negative ng/mL 1000 Amphetamine test includes Amphetamine and Methamphetamine.Barbiturates Negative ng/mL 200Benzodiazepines Negative ng/mL 200Cannabinoid Negative ng/mL 20Cocaine (Metab) Negative ng/mL 300Opiates Negative ng/mL 300 Opiates test includes Codeine, Morphine, Hydromorphone, Hydrocodone. Oxycodone/Oxymorphone,Urine Negative ng/mL 300 Test includes Oxycodone and Oxymorphone. TESTING PERFORMED AT [facility]. ORIGINAL REPORT ON FILE IN LAB CONTAINS ADDITIONAL TEST SITE INFORMATION. Urine Barbiturates Screen Negative < 200 ng/mL [facility] Urine Drug Screen Comment [facility] Comment on above: CONFIRMATORY TESTING FOR ALL [...] Urine Methadone Screen Negative < 300 ng/mL [facility] Urine phencyclidine (PCP) de tectionOrdered By: Harshad Camacho on 05-26-2023 Phencyclidine Ql (U) Negative < 25 ng/mL [facility] Absolute lymphocyte countOrd ered By: Dionne Magaña on 04-28-2023 Lymphocytes Auto (Unsp spec) [#/Vol] 2.03 10*3/uL 0.83-4.51 [facility] Basophil percentageOrdered B y: Dionne Magaña on 04-28-2023 Basophils/100 WBC (Bld) 1.0 % 0-1 [facility] Chloride [Moles/Vol] 107 mmol/L 98-107 [facility] Eosinophils/100 WBC (Bld) 1.8 % 0-5 [facility] Glucose [Mass/Vol] 155 mg/dL 74-106 [facility] Comment on above: Fasting Glucose resu lt greater than or equal to 126 mg/dL suggests DIABETES MELLITUS per A.D.A. criteria. Neutrophils (Bld) [#/Vol] 8.6 10*3/uL 2.0-7.7 [facility] Neutrophils/100 WBC (Bld) 71.7 % 47-70 [facility] Potassium [Moles/Vol] 4.6 mmol/L 3.5-5.1 [facility] Sodium [Moles/Vol] 139 mmol/L 136-145 [facility] WBC (Bld) [#/Vol] 12.0 10*3/uL 4.4-11.0 [facility] Blood erythrocytes count (nu mber/volume)Ordered By: Dionne Magaña on 04-28-2023 RBC (Bld) [#/Vol] 3.42 10*6/uL 4.2-5.4 [facility] Blood hemoglobin measurement (mass/volume)Ordered By: Dionne Magaña on 04-28-2023 Hemoglobin (Bld) [Mass/Vol] 11.4 g/dL 12.0-15.0 [facility] Blood lymphocytes/100 leukoc ytesOrdered By: Dionne Magaña on 04-28-2023 Lymphocytes/100 WBC (Bld) 16.9 % 19-41 [facility] Blood monocytes/100 leukocyt esOrdered By: Dionne Magaña on 04-28-2023 Monocytes/100 WBC (Bld) 7.9 % 0-10 [facility] Blood platelet mean volumeOr dered By: Dionne Magaña on 04-28-2023 Platelet mean volume (Bld) [Entitic vol] 11.1 fL 6.2-12.0 [facility] Determination of erythrocyte mean corpuscular volume (MCV)Ordered By: Dionne Magaña on 04-28-2023 MCV (RBC) [Entitic vol] 108.5 fL 81-99 [facility] Hematocrit Auto (Bld) [Volum e fraction]Ordered By: Dionne Magaña on 04-28-2023 Hematocrit (Bld) [Volume fraction] 37.1 % 37-47 [facility] Laboratory - Chemistry and C hemistry - challengeOrdered By: Dionne Magaña on 04-28-2023 CO2 [Moles/Vol] 26.0 mmol/L 21.0-32.0 [facility] Cobalamin (Vitamin B12) [Mass/Vol] 362 pg/mL 211-911 [facility] Urea nitrogen/Creatinine [Mass ratio] 21.4 mg/mg 10-20 [facility] Laboratory - Hematology and Cell countsOrdered By: Dionne Magaña on 04-28-2023 Erythrocyte distribution width (RBC) [Entitic vol] 55.8 fL 35.1-43.9 [facility] Erythrocyte distribution width (RBC) [Ratio] 14.0 % 11.6-14.6 [facility] Immature granulocytes/100 WBC (Bld) 0.700 % 0.0-0.9 [facility] Comment on above: IG% - Immature Granu locytes (promyelocytes, myelocytes and metamyelocytes) > 1% indicates that a LEFT SHIFT is Present. MCH (RBC) [Entitic mass] 33.3 pg 27.0-32.0 [facility] Nucleated RBC/100 WBC (Bld) [Ratio] 0 % 0-5 [facility] MCHC Auto (RBC) [Mass/Vol]Or dered By: Dionne Magaña on 04-28-2023 MCHC (RBC) [Mass/Vol] 30.7 g/dL 32-36 [facility] No Panel InformationOrdered By: Dionne Magaña on 04-28-2023 Estimated GFR (MDRD) Amer 66 mL/min >60 [facility] Comment on above: GFR Calc Estimated GFR (MDRD) Non-Af Amer 55 mL/min >60 [facility] Comment on above: Non- GFR Calc Thyroid Stimulating Hormone (TSH) 2.27 uIU/mL 0.358-3.74 [facility] Platelets bldOrdered By: Miguelangel Magaña on 04-28-2023 Platelets (Bld) [#/Vol] 278 10*3/uL 150-450 [facility] Serum or plasma calcium jd urement (mass/volume)Ordered By: Dionne Magaña on 04-28-2023 Calcium [Mass/Vol] 9.2 mg/dL 8.5-10.1 [facility] Serum or plasma creatinine m easurement (mass/volume)Ordered By: Dionne Magaña on 04-28-2023 Creatinine [Mass/Vol] 1.03 mg/dL 0.55-1.02 [facility] Comment on above: The validity of the calculated GFR & GFRAA in patients over 70 years has not been determined. Clinical correlation is essential. Serum or plasma urea nitroge n measurement (mass/volume)Ordered By: Dionne Magaña on 04-28-2023 Urea nitrogen [Mass/Vol] 22 mg/dL 7-18 [facility] Thin prep Papanicolaou smear with manual screeningOrdered By: Dionne Magaña on 04-28-2023 Thin prep Papanicolaou smear with manual screening 6 5-15 [facility] Laboratory - Hematology and Cell countson 04-13-2023 HbA1c (Bld) [Mass fraction] 6.7 % 4.2-6.3 [facility] No Panel InformationOrdered By: Dionne Magaña on 04-13-2023 Thyroid Stimulating Hormone (TSH) 0.74 uIU/mL 0.358-3.74 [facility] CNOVon 02-15-2023 CNOV Office Visit ([facility] ) -- MARCO AJERRELL Magdi ([id number]) 1945 F Date Time Provider Department 02/15/23 1:00 PM MALI RAMIREZ [facility] During your visit today, we recorded the following information about you: Temperature Pulse Respiration Blood pressure 98 degrees 87/minute 16/minute 128/64 Weight 74.6 kg Mali Ramirez APRN.POND WORKER 02/15/2023 1:54 PM Signed This note was created using [email or web address]. Subjective Jerrell Magdi Marco A is a [...] by the patient and a relative. No director targeted marketing was used. Animal Bite The incident occurred [...] Date APPENDECTOMY HYSTERECTOMY HX partial- done in [place] LAMINECTOMY W/O FFD 07/12 VERT SEG LUMBAR [...] Negative f (more content not included)... [facility] Visit ([facility] ) -- JERRELL STRICKLAND ([id number]) 1945 F Date Time Provider Department 02/07/23 4:00 PM J LUIS SANCHES [facility] During your visit today, [...] history is provided by the patient. No director targeted marketing was used. Pain (foot) Review of Systems [...] Date APPENDECTOMY HYSTERECTOMY HX partial- done in [place] LAMINECTOMY W/O FFD 07/12 VERT SEG LUMBAR [...] noted. IMPRESSION IMPRESSION: No acute osseous abnormality System Engineer: PAZ Transcribe Date/Time: Feb 07 2023 4:09P Dictated by : MINERVA PATRICK MD - METHYLPREDNISOLONE 4 MG TABLETS IN A DOSE PACK Was educated about proper use of medication and supportive therapies. Patient was educated if signs and symptoms do not seem to be alleviated with the steroids that (more content not included)... Normal [facility] XR FOOT 3V AP/LAT/OBL LTon 0 [...] are noted. IMPRESSION: No acute osseous abnormality System Engineer: PSCB Transcribe Date/Time: Feb 07 2023 4:09P Dictated by : MINERVA PATRICK MD This examination was interpreted and the report reviewed and electronically signed by: MINERVA PATRICK MD on Feb 07 2023 4:11PM EST [id number] Normal [facility] XR FOOT GENERAL 3V AP/LAT/OB L LEFTon 02-07-2023 [facility] XR Foot - left AP and Latera l and obliqueon 02-07-2023 IMPRESSION: No acute osseous abnormality System Engineer: PSC Transcribe Date/Time: Feb 07 2023 4:09P [...] noted. IMPRESSION IMPRESSION: No acute osseous abnormality System Engineer: [facility] Transcribe Date/Time: Feb 07 2023 4:09P Dictated by : MINERVA PATRICK MD This examination was interpreted and the report reviewed and electronically signed by: MINERVA PATRICK MD on Feb 07 2023 4:11PM [facility] Radiology Study observation (narrative) Shashank fairbanks [facility] XR Foot - left AP and Latera l and obliqueOrdered By: Ccf Provider on 02-07-2023 [facility]ura [facility] JERRELL STRICKLAND ([id number]) 1945 F Date Time Provider Department 02/03/23 MANUEL WISE [facility] During your visit today, [...] Status:Closed by MANUEL WISE on 02/03/23 Normal [facility] Bacteria Wnd Culton 02-01-20 Bacteria identified [...] , Intermediate >4 , Resistant >8 Abnormal [facility] Comment on above: Performed By: #### 2 4323-8, 18504-0, 2777-1, 3016-3 #### [facility] CLIA [id number] [address] [place] [address] [place] Fernando 01-31-2023 CNOV Office Visit ([facility] ) -- MARCO AJERRELL ([id number]) 1945 F Date Time Provider Department 01/31/23 2:15 PM ALEX LAW [facility] During your visit today, [...] CULTURE WITH GRAM STAIN [SQWCUL] Order #: [id number]. #:[id number] amoxicillin-clavulanic acid (AUGMENTIN) 875-125 mg per tabletTake 1 tablet by mouth twice daily for 5 days.Disp: 10 tabletRfl: 0 Prescriptions as of 02/03/2023 - predniSONE (DELTASONE) 20 mg tablet TAKE 2 (TWO) TABLETS BY MOUTH EVERY DAY for FOUR days then 1 (ONE) TABLET EVERY DAY for 2 (TWO) days - rOPIN (more content not included)... [facility] Basophil percentageOrdered B y: Dionne Magaña on 01-18-2023 Chloride [Moles/Vol] 111 mmol/L 98-107 [facility] Glucose [Mass/Vol] 101 mg/dL 74-106 [facility] Comment on above: Fasting Glucose resu lt from 100 to 125 mg/dL suggests IMPAIRED HOMEOSTASIS per A.D.A. criteria. Potassium [Moles/Vol] 4.3 mmol/L 3.5-5.1 [facility] Sodium [Moles/Vol] 139 mmol/L 136-145 [facility] Laboratory - Chemistry and C hemistry - challengeOrdered By: Dionne Magaña on 01-18-2023 CO2 [Moles/Vol] 22.0 mmol/L 21.0-32.0 [facility] Urea nitrogen/Creatinine [Mass ratio] 25.9 mg/mg 10-20 [facility] No Panel InformationOrdered By: Dionne Magaña on 01-18-2023 Estimated GFR (MDRD) Amer 72 mL/min >60 [facility] Comment on above: GFR Calc Estimated GFR (MDRD) Non-Af Amer 59 mL/min >60 [facility] Comment on above: Non- GFR Calc Serum or plasma calcium jd urement (mass/volume)Ordered By: Dionne Magaña on 01-18-2023 Calcium [Mass/Vol] 9.5 mg/dL 8.5-10.1 [facility] Serum or plasma creatinine m easurement (mass/volume)Ordered By: Dionne Magaña on 01-18-2023 Creatinine [Mass/Vol] 0.97 mg/dL 0.55-1.02 [facility] Comment on above: The validity of the calculated GFR & GFRAA in patients over 70 years has not been determined. Clinical correlation is essential. Serum or plasma urea nitroge n measurement (mass/volume)Ordered By: Dionne Magaña on 01-18-2023 Urea nitrogen [Mass/Vol] 25 mg/dL 7-18 [facility] Thin prep Papanicolaou smear with manual screeningOrdered By: Dionne Magaña on 01-18-2023 Thin prep Papanicolaou smear with manual screening 6 5-15 [facility] Absolute lymphocyte countOrd ered By: Dionne Magaña on 01-10-2023 Lymphocytes Auto (Unsp spec) [#/Vol] 1.80 10*3/uL 0.83-4.51 [facility] Basophil percentageOrdered B y: Dionne Magaña on 01-10-2023 Basophils/100 WBC (Bld) 0.8 % 0-1 [facility] Bilirubin [Mass/Vol] 0.30 mg/dL 0.20-1.00 [facility] Comment on above: For patients on eltr ombopag therapy, use of Dimension [place] TBIL is not recommended. Chloride [Moles/Vol] 105 mmol/L 98-107 [facility] Cholesterol [Mass/Vol] 150 mg/dL <200 [facility] Comment on above: <200 mg/dL Desirable 200-240 mg/dL Borderline >240 mg/dL High Risk Eosinophils/100 WBC (Bld) 4.1 % 0-5 [facility] Glucose [Mass/Vol] 95 mg/dL 74-106 [facility] Neutrophils (Bld) [#/Vol] 6.9 10*3/uL 2.0-7.7 [facility] Neutrophils/100 WBC (Bld) 66.6 % 47-70 [facility] Potassium [Moles/Vol] 5.2 mmol/L 3.5-5.1 [facility] Protein [Mass/Vol] 7.3 g/dL 6.4-8.2 [facility] Sodium [Moles/Vol] 132 mmol/L 136-145 [facility] Triglyceride [Mass/Vol] 235 mg/dL <199 [facility] Comment on above: The drugs N-Acetylcy steine and Metamizole may falsely depress this assay.Serum Triglycerides Reference Interval Normal <150 mg/dL Borderline high 150 - 199 mg/dL High 200 - 499 mg/dL Very High > or = 500 mg/dL WBC (Bld) [#/Vol] 10.3 10*3/uL 4.4-11.0 [facility] Blood erythrocytes count (nu mber/volume)Ordered By: Dionne Magaña on 01-10-2023 RBC (Bld) [#/Vol] 3.52 10*6/uL 4.2-5.4 [facility] Blood hemoglobin measurement (mass/volume)Ordered By: Dionne Magaña on 01-10-2023 Hemoglobin (Bld) [Mass/Vol] 11.8 g/dL 12.0-15.0 [facility] Blood lymphocytes/100 leukoc ytesOrdered By: Dionne Magaña on 01-10-2023 Lymphocytes/100 WBC (Bld) 17.5 % 19-41 [facility] Blood monocytes/100 leukocyt esOrdered By: Dionne Magaña on 01-10-2023 Monocytes/100 WBC (Bld) 10.3 % 0-10 [facility] Blood platelet mean volumeOr dered By: Dionne Magaña on 01-10-2023 Platelet mean volume (Bld) [Entitic vol] 11.8 fL 6.2-12.0 [facility] Determination of erythrocyte mean corpuscular volume (MCV)Ordered By: Dionne Magaña on 01-10-2023 MCV (RBC) [Entitic vol] 105.4 fL 81-99 [facility] Hematocrit Auto (Bld) [Volum e fraction]Ordered By: Dionne Magaña on 01-10-2023 Hematocrit (Bld) [Volume fraction] 37.1 % 37-47 [facility] Laboratory - Chemistry and C hemistry - challengeOrdered By: Dionne Magaña on 01-10-2023 ALP [Catalytic activity/Vol] 99 U/L 45-117 [facility] ALT [Catalytic activity/Vol] 34 U/L 13-56 [facility] CO2 [Moles/Vol] 24.0 mmol/L 21.0-32.0 [facility] Cobalamin (Vitamin B12) [Mass/Vol] 228 pg/mL 211-911 [facility] Globulin (S) [Mass/Vol] 3.6 g/dL 2.2-4.2 [facility] Urea nitrogen/Creatinine [Mass ratio] 13.8 mg/mg 10-20 [facility] Laboratory - Hematology and Cell countsOrdered By: Dionne Magaña on 01-10-2023 Erythrocyte distribution width (RBC) [Entitic vol] 48.7 fL 35.1-43.9 [facility] Erythrocyte distribution width (RBC) [Ratio] 12.5 % 11.6-14.6 [facility] Immature granulocytes/100 WBC (Bld) 0.700 % 0.0-0.9 [facility] Comment on above: IG% - Immature Granu locytes (promyelocytes, myelocytes and metamyelocytes) > 1% indicates that a LEFT SHIFT is Present. MCH (RBC) [Entitic mass] 33.5 pg 27.0-32.0 [facility] Nucleated RBC/100 WBC (Bld) [Ratio] 0 % 0-5 [facility] MCHC Auto (RBC) [Mass/Vol]Or dered By: Dionne Magaña on 01-10-2023 MCHC (RBC) [Mass/Vol] 31.8 g/dL 32-36 [facility] No Panel InformationOrdered By: Dionne Magaña on 01-10-2023 Urine Microalbumin/Creatinine Ratio 15.9 mg/g CRE <30 [facility] Estimated GFR (MDRD) Amer 73 mL/min >60 [facility] Comment on above: GFR Calc Estimated GFR (MDRD) Non-Af Amer 61 mL/min >60 [facility] Comment on above: Non- GFR Calc Thyroid Stimulating Hormone (TSH) 0.09 uIU/mL 0.358-3.74 [facility] Vitamin D 25-Hydroxy 36.4 ng/mL [facility] Comment on above: Vitamin D 25(OH) Sta tus Range Deficiency <20 ng/mL (50nmol/L) Insufficiency 20 - 30 ng/mL (50 - 75 nmol/L) Sufficiency 30 - 100 ng/mL (75 - 250 nmol/L) Toxicity >100 ng/mL (>250 nmol/L) Platelets bldOrdered By: Miguelangel Magaña on 01-10-2023 Platelets (Bld) [#/Vol] 314 10*3/uL 150-450 [facility] Serum or plasma albumin jd urement (mass/volume)Ordered By: Dionne Magaña on 01-10-2023 Albumin [Mass/Vol] 3.7 g/dL 3.2-5.0 [facility] Serum or plasma albumin/glob ulin mass ratioOrdered By: Dionne Magaña on 01-10-2023 Albumin/Globulin [Mass ratio] 1.0 {ratio} 0.9-2.4 [facility] Serum or plasma calcium jd urement (mass/volume)Ordered By: Dionne Magaña on 01-10-2023 Calcium [Mass/Vol] 9.7 mg/dL 8.5-10.1 [facility] Serum or plasma cholesterol in HDL measurement (mass/volume)Ordered By: Dionne Magaña on 01-10-2023 Cholesterol in HDL [Mass/Vol] 34 mg/dL >40 [facility] Comment on above: The drugs N-Acetylcy steine and Metamizole may falsely depress this assay. Reference Range HDL <40 mg/dL Low HDL Cholesterol HDL >or= 60 mg/dL High HDL Cholesterol Serum or plasma cholesterol in VLDL measurement (mass/volume)Ordered By: Dionne Magaña on 01-10-2023 Cholesterol in VLDL [Mass/Vol] 47 mg/dL 5-40 [facility] Serum or plasma creatinine m easurement (mass/volume)Ordered By: Dionne Magaña on 01-10-2023 Creatinine [Mass/Vol] 0.94 mg/dL 0.55-1.02 [facility] Comment on above: The validity of the calculated GFR & GFRAA in patients over 70 years has not been determined. Clinical correlation is essential. Serum or plasma folate measu rement (mass/volume)Ordered By: Dionne Magaña on 01-10-2023 Folate [Mass/Vol] 8.60 ng/mL 3.1-55.4 [facility] Serum or plasma low density lipoprotein (LDL) cholesterol measurement (mass/volume)Ordered By: Dionne Magaña on 01-10-2023 Cholesterol in LDL [Mass/Vol] 69 mg/dL 0-130 [facility] Serum or plasma urea nitroge n measurement (mass/volume)Ordered By: Dionne Magaña on 01-10-2023 Urea nitrogen [Mass/Vol] 13 mg/dL 7-18 [facility] Thin prep Papanicolaou smear with manual screeningOrdered By: Dionne Magaña on 01-10-2023 Thin prep Papanicolaou smear with manual screening 11.5 mg/L NO RANGE EST. [facility] Thin prep Papanicolaou smear with manual screening 24 U/L 15-37 [facility] Thin prep Papanicolaou smear with manual screening 3 5-15 [facility] Urine creatinine measurement (mass/volume)Ordered By: Dionne Magaña on 01-10-2023 Creatinine (U) [Mass/Vol] 72.40 mg/dL NO RANGE EST. [facility] Whole blood hemoglobin A1c/t otal hemoglobin ratio (mass fraction)Ordered By: Dionne Magaña on 01-10-2023 HbA1c (Bld) [Mass fraction] 5.7 % 3.8-5.6 [facility] Comment on above: Normal < 5.7 % Predi abetic 5.7 - 6.4 % Diabetic >or= 6.5 % Please note range changes. Absolute lymphocyte countOrd ered By: Dr. Martin on 08-25-2022 Lymphocytes Auto (Unsp spec) [#/Vol] 1.67 10*3/uL 0.83-4.51 [facility] Basophil percentageOrdered B y: Dr. Martin on 08-25-2022 Basophils/100 WBC (Bld) 0.8 % 0-1 [facility] Bilirubin [Mass/Vol] 0.40 mg/dL 0.20-1.00 [facility] Comment on above: For patients on eltr ombopag therapy, use of Dimension [place] TBIL is not recommended. Chloride [Moles/Vol] 100 mmol/L 98-107 [facility] Eosinophils/100 WBC (Bld) 3.7 % 0-5 [facility] Glucose [Mass/Vol] 119 mg/dL 74-106 [facility] Comment on above: Fasting Glucose resu lt from 100 to 125 mg/dL suggests IMPAIRED HOMEOSTASIS per A.D.A. criteria. Neutrophils (Bld) [#/Vol] 11.2 10*3/uL 2.0-7.7 [facility] Neutrophils/100 WBC (Bld) 76.6 % 47-70 [facility] Potassium [Moles/Vol] 3.8 mmol/L 3.5-5.1 [facility] Protein [Mass/Vol] 7.1 g/dL 6.4-8.2 [facility] Sodium [Moles/Vol] 137 mmol/L 136-145 [facility] WBC (Bld) [#/Vol] 14.6 10*3/uL 4.4-11.0 [facility] Blood erythrocytes count (nu mber/volume)Ordered By: Dr. Martin on 08-25-2022 RBC (Bld) [#/Vol] 3.79 10*6/uL 4.2-5.4 [facility] Blood hemoglobin measurement (mass/volume)Ordered By: Dr. Martin on 08-25-2022 Hemoglobin (Bld) [Mass/Vol] 12.7 g/dL 12.0-15.0 [facility] Blood lymphocytes/100 leukoc ytesOrdered By: Dr. Martin on 08-25-2022 Lymphocytes/100 WBC (Bld) 11.4 % 19-41 [facility] Blood monocytes/100 leukocyt esOrdered By: Dr. Martin on 08-25-2022 Monocytes/100 WBC (Bld) 6.9 % 0-10 [facility] Blood platelet mean volumeOr dered By: Dr. Martin on 08-25-2022 Platelet mean volume (Bld) [Entitic vol] 12.2 fL 6.2-12.0 [facility] Determination of erythrocyte mean corpuscular volume (MCV)Ordered By: Dr. Martin on 08-25-2022 MCV (RBC) [Entitic vol] 104.0 fL 81-99 [facility] Erythrocyte sedimentation ra teOrdered By: Dr. Martin on 08-25-2022 ESR (Bld) [Velocity] 22 mm/h 0-30 [facility] Hematocrit Auto (Bld) [Volum e fraction]Ordered By: Dr. Martin on 08-25-2022 Hematocrit (Bld) [Volume fraction] 39.4 % 37-47 [facility] Laboratory - Chemistry and C hemistry - challengeOrdered By: Dr. Martin on 08-25-2022 ALP [Catalytic activity/Vol] 88 U/L 45-117 [facility] ALT [Catalytic activity/Vol] 23 U/L 13-56 [facility] CO2 [Moles/Vol] 27.0 mmol/L 21.0-32.0 [facility] Cobalamin (Vitamin B12) [Mass/Vol] 334 pg/mL 211-911 [facility] Globulin (S) [Mass/Vol] 3.8 g/dL 2.2-4.2 [facility] Urea nitrogen/Creatinine [Mass ratio] 12.1 mg/mg 10-20 [facility] Laboratory - Hematology and Cell countsOrdered By: Dr. Martin on 08-25-2022 Erythrocyte distribution width (RBC) [Entitic vol] 48.4 fL 35.1-43.9 [facility] Erythrocyte distribution width (RBC) [Ratio] 12.7 % 11.6-14.6 [facility] Immature granulocytes/100 WBC (Bld) 0.600 % 0.0-0.9 [facility] Comment on above: IG% - Immature Granu locytes (promyelocytes, myelocytes and metamyelocytes) > 1% indicates that a LEFT SHIFT is Present. MCH (RBC) [Entitic mass] 33.5 pg 27.0-32.0 [facility] Nucleated RBC/100 [facility] (Bld) [[facility]] 0 [facility] [Mass/Vol]Or dered By: Dr. Martin on 08-25-2022 MCHC (RBC) [Mass/Vol] 32.2 g/dL 32-36 [facility] No Panel InformationOrdered By: Dr. Martin on 08-25-2022 Estimated GFR (MDRD) Amer 58 mL/min >60 [facility] Comment on above: GFR Calc Estimated GFR (MDRD) Non-Af Amer 48 mL/min >60 [facility] Comment on above: Non- GFR Calc Thyroid Stimulating Hormone (TSH) 25.40 uIU/mL 0.358-3.74 [facility] Platelets bldOrdered By: Dr. Martin on 08-25-2022 Platelets (Bld) [#/Vol] 298 10*3/uL 150-450 [facility] Serum or plasma albumin jd urement (mass/volume)Ordered By: Dr. Martin on 08-25-2022 Albumin [Mass/Vol] 3.3 g/dL 3.2-5.0 [facility] Serum or plasma albumin/glob ulin mass ratioOrdered By: Dr. Martin on 08-25-2022 Albumin/Globulin [Mass ratio] 0.9 {ratio} 0.9-2.4 [facility] Serum or plasma calcium jd urement (mass/volume)Ordered By: Dr. Martin on 08-25-2022 Calcium [Mass/Vol] 9.4 mg/dL 8.5-10.1 [facility] Serum or plasma creatinine m easurement (mass/volume)Ordered By: Dr. Martin on 08-25-2022 Creatinine [Mass/Vol] 1.16 mg/dL 0.55-1.02 [facility] Comment on above: The validity of the calculated GFR & GFRAA in patients over 70 years has not been determined. Clinical correlation is essential. Serum or plasma urea nitroge n measurement (mass/volume)Ordered By: Dr. Martin on 08-25-2022 Urea nitrogen [Mass/Vol] 14 mg/dL 7-18 [facility] Thin prep Papanicolaou smear with manual screeningOrdered By: Dr. Martin on 08-25-2022 Thin prep Papanicolaou smear with manual screening 22 U/L 15-37 [facility] Thin prep Papanicolaou smear with manual screening 10 5-15 [facility] Basophil percentageOrdered B y: Dr. Freeman on 07-30-2022 WBC (Bld) [#/Vol] 10.2 10*3/uL 4.4-11.0 [facility] Blood erythrocytes count (nu mber/volume)Ordered By: Dr. Freeman on 07-30-2022 RBC (Bld) [#/Vol] 3.78 10*6/uL 4.2-5.4 [facility] Blood hemoglobin measurement (mass/volume)Ordered By: Dr. rFeeman on 07-30-2022 Hemoglobin (Bld) [Mass/Vol] 12.8 g/dL 12.0-15.0 [facility] Blood platelet mean volumeOr dered By: Dr. Freeman on 07-30-2022 Platelet mean volume (Bld) [Entitic vol] 11.1 fL 6.2-12.0 [facility] Determination of erythrocyte mean corpuscular volume (MCV)Ordered By: Dr. Freeman on 07-30-2022 MCV (RBC) [Entitic vol] 106.6 fL 81-99 [facility] Hematocrit Auto (Bld) [Volum e fraction]Ordered By: Dr. Freeman on 07-30-2022 Hematocrit (Bld) [Volume fraction] 40.3 % 37-47 [facility] Laboratory - Hematology and Cell countsOrdered By: Dr. Freeman on 07-30-2022 Erythrocyte distribution width (RBC) [Entitic vol] 50.7 fL 35.1-43.9 [facility] Erythrocyte distribution width (RBC) [Ratio] 12.9 % 11.6-14.6 [facility] MCH (RBC) [Entitic mass] 33.9 pg 27.0-32.0 [facility] MCHC Auto (RBC) [Mass/Vol]Or dered By: Dr. Freeman on 07-30-2022 MCHC (RBC) [Mass/Vol] 31.8 g/dL 32-36 [facility] Platelets bldOrdered By: Dr. Freeman on 07-30-2022 Platelets (Bld) [#/Vol] 356 10*3/uL 150-450 [facility] LABORATORYOrdered By: Sarah Hinkle on 07-09-2022 Basophil, [...] Probable Contamination. Suggest recollection if clinically indicated. [facility] [place] Work Phone: Microscopic examination of blood, culture Culture has been received in lab and is no growth to date. Routine cultures are held for 5 days. [facility] [place] Work Phone: LABORATORYOrdered By: Hernan Vernon on 07-07-2022 Glucose [Mass/Vol] 141 mg/dL Invalid Interpretation Code 82 - 115 mg/dL [facility] [place] Work Phone: LABORATORYOrdered By: Ellen Angela on 07-06-2022 Glucose [Mass/Vol] 130 mg/dL Invalid Interpretation Code 82 - 115 mg/dL [facility] [place] Work Phone: LABORATORYOrdered By: Frances House on 07-06-2022 ABO/Rh Interp Positive Invalid Interpretation Code AO BB SS Antibody Screen Gel Negative [facility] (07/06/22 9:36 AM) Invalid Interpretation Code AO BB SS LABORATORYOrdered By: Chung Kimball on 07-06-2022 Glucose [Mass/Vol] 107 mg/dL Invalid Interpretation Code 82 - 115 mg/dL [facility] [place] Work Phone: Laboratory - Drug toxicology Ordered By: Dr. Camacho on 06-28-2022 Amphetamines Ql (U) Negative <1000 ng/mL [facility] Benzodiazepines Ql (U) Negative < 200 ng/mL [facility] Cannabinoids Screen Ql (U) Negative < 50 ng/mL [facility] Cocaine Ql (U) Negative < 300 ng/mL [facility] Opiates Ql (U) Positive < 300 ng/mL [facility] No Panel InformationOrdered By: Dr. Camacho on 06-28-2022 MDMA (Ecstasy) Screen Negative < 500 ng/mL [facility] Miscellaneous Test See comment [facility] Comment on above: [id number] 6+OXYCODONE-B UND (ng/mL) DRUG RESULT SCREEN CUTOFF____ [...] includes Oxydodone and Oxymorphone. [facility] ORIGINAL REPORT ON FILE IN LAB CONTAINS ADDITIONAL TEST SITE INFORMATION. Urine Barbiturates Screen Negative < 200 ng/mL [facility] Urine Drug Screen Comment [facility] Comment on above: CONFIRMATORY TESTING FOR ALL [...] Urine Methadone Screen Negative < 300 ng/mL [facility] Urine phencyclidine (PCP) de tectionOrdered By: Dr. Camacho on 06-28-2022 Phencyclidine Ql (U) Negative < 25 ng/mL [facility] LABORATORYOrdered By: Nadine Nava on 06-22-2022 ABO/Rh [...] percentageon 2021 Chloride [Moles/Vol] 103 mmol/L 98-107 [facility] Work Phone: Glucose [Mass/Vol] 176 mg/dL 74-106 [facility] Work Phone: Comment on above: Fasting Glucose resu lt greater than or equal to 126 mg/dL suggests DIABETES MELLITUS per A.D.A. criteria. Potassium [Moles/Vol] 4.1 mmol/L 3.5-5.1 [facility] Work Phone: Sodium [Moles/Vol] 135 mmol/L 136-145 [facility] Work Phone: Glucose Glucometer (BldC) [M ass/Vol]on 12-01-2021 Glucose [Mass/Vol] 250 mg/dL 74-106 [facility] Work Phone: Comment on above: MANAGEMENT OF PATIEN T CARE PER NURSING PROTOCOL Laboratory - Chemistry and C hemistry - challengeon 12-01-2021 CO2 [Moles/Vol] 24.0 mmol/L 21.0-32.0 [facility] Work Phone: Urea nitrogen/Creatinine [Mass ratio] 13.9 mg/mg 10-20 [facility] Work Phone: No Panel Informationon 12-01 Estimated Creatinine Clearance Calc 44.08 ml/min [facility] Work Phone: Estimated GFR (MDRD) Amer 81 mL/min >60 [facility] Work Phone: Comment on above: GFR Calc Estimated GFR (MDRD) Non-Af Amer 67 mL/min >60 [facility] Work Phone: Comment on above: Non- GFR Calc Serum or plasma calcium jd urement (mass/volume)on 12-01-2021 Calcium [Mass/Vol] 8.7 mg/dL 8.5-10.1 [facility] Work Phone: Serum or plasma creatinine m easurement (mass/volume)on 12-01-2021 Creatinine [Mass/Vol] 0.87 mg/dL 0.55-1.02 [facility] Work Phone: Comment on above: The validity of the calculated GFR & GFRAA in patients over 70 years has not been determined. Clinical correlation is essential. Serum or plasma urea nitroge n measurement (mass/volume)on 12-01-2021 Urea nitrogen [Mass/Vol] 12 mg/dL 7-18 [facility] Work Phone: Thin prep Papanicolaou smear with manual screeningon 12-01-2021 Thin prep Papanicolaou smear with manual screening 8 5-15 [facility] Work Phone: Absolute lymphocyte counton 11-30-2021 Lymphocytes Auto (Unsp spec) [#/Vol] 1.74 10*3/uL 0.83-4.51 [facility] Work Phone: Basophil percentageon 2021 Basophils/100 WBC (Bld) 0.8 % 0-1 [facility] Work Phone: [phone] Eosinophils/100 WBC (Bld) 2.7 % 0-5 [facility] Work Phone: Neutrophils (Bld) [#/Vol] 8.1 10*3/uL 2.0-7.7 [facility] Work Phone: [phone] Neutrophils/100 WBC (Bld) 68.3 % 47-70 [facility] Work Phone: [phone] WBC (Bld) [#/Vol] 11.9 10*3/uL 4.4-11.0 [facility] Work Phone: Blood erythrocytes count (nu mber/volume)on 11-30-2021 RBC (Bld) [#/Vol] 3.36 10*6/uL 4.2-5.4 [facility] Work Phone: Blood hemoglobin measurement (mass/volume)on 11-30-2021 Hemoglobin (Bld) [Mass/Vol] 11.3 g/dL 12.0-15.0 [facility] Work Phone: Blood lymphocytes/100 leukoc yteson 11-30-2021 Lymphocytes/100 WBC (Bld) 14.7 % 19-41 [facility] Work Phone: [phone] Blood monocytes/100 leukocyt eson 11-30-2021 Monocytes/100 WBC (Bld) 9.6 % 0-10 [facility] Work Phone: Blood platelet mean volumeon 11-30-2021 Platelet mean volume (Bld) [Entitic vol] 11.3 fL 6.2-12.0 [facility] Work Phone: [phone] Determination of erythrocyte mean corpuscular volume (MCV)on 11-30-2021 MCV (RBC) [Entitic vol] 101.2 fL 81-99 [facility] Work Phone: [phone] Hematocrit Auto (Bld) [Volum e fraction]on 11-30-2021 Hematocrit (Bld) [Volume fraction] 34.0 % 37-47 [facility] Work Phone: Laboratory - Chemistry and C hemistry - challengeon 11-30-2021 Magnesium [Mass/Vol] 1.7 mg/dL 1.6-2.6 [facility] Work Phone: Laboratory - Hematology and Cell countson 11-30-2021 Erythrocyte distribution width (RBC) [Entitic vol] 47.6 fL 35.1-43.9 [facility] Work Phone: Erythrocyte distribution width (RBC) [Ratio] 12.9 % 11.6-14.6 [facility] Work Phone: Immature granulocytes/100 WBC (Bld) 3.900 % 0.0-0.9 [facility] Work Phone: Comment on above: IG% - Immature Granu locytes (promyelocytes, myelocytes and metamyelocytes) > 1% indicates that a LEFT SHIFT is Present. MCH (RBC) [Entitic mass] 33.6 pg 27.0-32.0 [facility] Work Phone: Nucleated RBC/100 WBC (Bld) [Ratio] 0 % 0-5 [facility] Work Phone: MCHC Auto (RBC) [Mass/Vol]on 11-30-2021 MCHC (RBC) [Mass/Vol] 33.2 g/dL 32-36 [facility] Work Phone: Platelets bldon 11-30-2021 Platelets (Bld) [#/Vol] 278 10*3/uL 150-450 [facility] Work Phone: Whole blood hemoglobin A1c/t otal hemoglobin ratio (mass fraction)on 11-30-2021 HbA1c (Bld) [Mass fraction] 8.5 % 3.8-5.6 [facility] Work Phone: Comment on above: Normal < 5.7 % Predi abetic 5.7 - 6.4 % Diabetic >or= 6.5 % Please note range changes. Basophil percentageon 2021 Bilirubin [Mass/Vol] 0.50 mg/dL 0.20-1.00 [facility] Work Phone: Comment on above: For patients on eltr ombopag therapy, use of Dimension [place] TBIL is not recommended. Protein [Mass/Vol] 7.1 g/dL 6.4-8.2 [facility] Work Phone: Laboratory - Chemistry and C hemistry - challengeon 11-29-2021 ALP [Catalytic activity/Vol] 96 U/L 45-117 [facility] Work Phone: ALT [Catalytic activity/Vol] 40 U/L 13-56 [facility] Work Phone: Globulin (S) [Mass/Vol] 4.1 g/dL 2.2-4.2 [facility] Work Phone: Natriuretic peptide B (Bld) [Mass/Vol] 9.0 pg/mL 0-100 [facility] Work Phone: No Panel Informationon 11-29 SARS-CoV-2 & FLU Antigen (Rapid) [facility] Work Phone: Troponin I High Sensitivity 6 pg/mL 3.0-54.0 [facility] Work Phone: Comment on above: Please Note: New Desiree t Units and Gender Specific Reference Ranges. For more information see Policy Stat Procedure [place] High Sensitivity Troponin (TNIH) and attachments. Serum or plasma albumin jd urement (mass/volume)on 11-29-2021 Albumin [Mass/Vol] 3.0 g/dL 3.2-5.0 [facility] Work Phone: Serum or plasma albumin/glob ulin mass ratioon 11-29-2021 Albumin/Globulin [Mass ratio] 0.7 {ratio} 0.9-2.4 [facility] Work Phone: Thin prep Papanicolaou smear with manual screeningon 11-29-2021 Thin prep Papanicolaou smear with manual screening 31 U/L 15-37 [facility] Work Phone: Basophil percentageon 2021 Chloride [Moles/Vol] 102 mmol/L 98-107 [facility]: Glucose [Mass/Vol] 295 mg/dL 74-106 [facility] Work Phone: Comment on above: Glucose result great er than or equal to 200 mg/dLsuggests DIABETES MELLITUS per A.D.A. criteria. Potassium [Moles/Vol] 4.2 mmol/L 3.5-5.1 [facility] Work Phone: Sodium [Moles/Vol] 136 mmol/L 136-145 [facility] Work Phone: WBC (Bld) [#/Vol] 15.8 10*3/uL 4.4-11.0 [facility] Work Phone: Blood erythrocytes count (nu mber/volume)on 11-21-2021 RBC (Bld) [#/Vol] 3.42 10*6/uL 4.2-5.4 [facility]: Blood hemoglobin measurement (mass/volume)on 11-21-2021 Hemoglobin (Bld) [Mass/Vol] 11.5 g/dL 12.0-15.0 [facility] Work Phone: Blood platelet mean volumeon 11-21-2021 Platelet mean volume (Bld) [Entitic vol] 11.1 fL 6.2-12.0 [facility] Work Phone: Determination of erythrocyte mean corpuscular volume (MCV)on 11-21-2021 MCV (RBC) [Entitic vol] 103.5 fL 81-99 [facility] Work Phone: Hematocrit Auto (Bld) [Volum e fraction]on 11-21-2021 Hematocrit (Bld) [Volume fraction] 35.4 % 37-47 [facility] Work Phone: Laboratory - Chemistry and C hemistry - challengeon 11-21-2021 CO2 [Moles/Vol] 25.0 mmol/L 21.0-32.0 [facility] Work Phone: Urea nitrogen/Creatinine [Mass ratio] 15.7 mg/mg 10-20 [facility] Work Phone: Laboratory - Hematology and Cell countson 11-21-2021 Erythrocyte distribution width (RBC) [Entitic vol] 49.8 fL 35.1-43.9 [facility] Work Phone: Erythrocyte distribution width (RBC) [Ratio] 13.2 % 11.6-14.6 [facility] Work Phone: MCH (RBC) [Entitic mass] 33.6 pg 27.0-32.0 [facility] Work Phone: MCHC Auto (RBC) [Mass/Vol]on 11-21-2021 MCHC (RBC) [Mass/Vol] 32.5 g/dL 32-36 [facility] Work Phone: No Panel Informationon 11-21 Estimated GFR (MDRD) Amer 59 mL/min >60 [facility] Work Phone: Comment on above: GFR Calc Estimated GFR (MDRD) Non-Af Amer 49 mL/min >60 [facility] Work Phone: Comment on above: Non- GFR Calc Platelets bldon 11-21-2021 Platelets (Bld) [#/Vol] 308 10*3/uL 150-450 [facility] Work Phone: Serum or plasma calcium jd urement (mass/volume)on 11-21-2021 Calcium [Mass/Vol] 9.1 mg/dL 8.5-10.1 [facility] Work Phone: Serum or plasma creatinine m easurement (mass/volume)on 11-21-2021 Creatinine [Mass/Vol] 1.15 mg/dL 0.55-1.02 [facility] Work Phone: Comment on above: The validity of the calculated GFR & GFRAA in patients over 70 years has not been determined. Clinical correlation is essential. Serum or plasma urea nitroge n measurement (mass/volume)on 11-21-2021 Urea nitrogen [Mass/Vol] 18 mg/dL 7-18 [facility] Work Phone: Thin prep Papanicolaou smear with manual screeningon 11-21-2021 Thin prep Papanicolaou smear with manual screening 9 5-15 [facility] Work Phone: Laboratory - Microbiology an d Antimicrobial susceptibilityon 11-18-2021 SARS-CoV-2 (COVID-19) RNA PRIYANKA+probe Ql (Unsp spec) Not detected Not Detect [facility] Work Phone: Comment on above: Normal Reference Ran ge: Not DetectedMethod:(RT-PCR) real-time reverse transcriptase PCRLuminex enVerid Instrument*The Food and Drug Administration (FDA) has issued an Emergency Use Authorization (EAU) for the enVerid SARS-CoV-2 Assay for the rapid detection of [...] 11-18 Influenza Types A,B Direct FA (RACH) [facility] Work Phone: Laboratory - Drug toxicology on 10-08-2021 Amphetamines Ql (U) Negative [facility] Work Phone: Benzodiazepines Ql (U) Negative [facility] Work Phone: Cannabinoids Screen Ql (U) Negative [facility] Work Phone: Cocaine Ql (U) Negative [facility] Work Phone: Opiates Ql (U) Positive [facility] Work Phone: No Panel Informationon 10-08 MDMA (Ecstasy) Screen Negative [facility] Work Phone: Miscellaneous Test See comment [facility] Work Phone: Comment on above: [id number] 6+OXYCODONE-B UND (ng/mL) DRUG RESULT SCREEN CUTOFF____ [...] includes Oxydodone and Oxymorphone. TESTING PERFORMED AT [facility]. ORIGINAL REPORT ON FILE IN LAB CONTAINS ADDITIONAL TEST SITE INFORMATION. Urine Barbiturates Screen Negative [facility] Work Phone: Urine Drug Screen Comment [facility] Work Phone: Comment on above: CONFIRMATORY TESTING [...] USE TESTMNEMONIC: [facility] Urine Methadone Screen Negative [facility] Work Phone: Urine phencyclidine (PCP) de tectionon 10-08-2021 Phencyclidine Ql (U) Negative [facility] Work Phone: Glucose Glucometer (BldC) [M ass/Vol]on 08-20-2021 Glucose [Mass/Vol] 114 mg/dL 70-110 [facility] Work Phone: Comment on above: MANAGEMENT OF PATIEN T CARE PER NURSING PROTOCOL Absolute lymphocyte counton 08-17-2021 Lymphocytes Auto (Unsp spec) [#/Vol] 1.84 10*3/uL 0.83-4.51 [facility] Work Phone: Basophil percentageon 2021 Basophils/100 WBC (Bld) 0.9 % 0-1 [facility] Work Phone: Chloride [Moles/Vol] 101 mmol/L 98-107 [facility] Work Phone: Eosinophils/100 WBC (Bld) 4.9 % 0-5 [facility] Work Phone: Glucose [Mass/Vol] 102 mg/dL 74-106 [facility] Work Phone: Comment on above: Fasting Glucose resu lt from 100 to 125 mg/dL suggests IMPAIRED HOMEOSTASIS per A.D.A. criteria. Neutrophils (Bld) [#/Vol] 5.2 10*3/uL 2.0-7.7 [facility] Work Phone: Neutrophils/100 WBC (Bld) 61.5 % 47-70 [facility] Work Phone: Potassium [Moles/Vol] 4.4 mmol/L 3.5-5.1 [facility] Work Phone: [phone] Sodium [Moles/Vol] 130 mmol/L 136-145 [facility] Work Phone: WBC (Bld) [#/Vol] 8.5 10*3/uL 4.4-11.0 [facility] Work Phone: Blood erythrocytes count (nu mber/volume)on 08-17-2021 RBC (Bld) [#/Vol] 3.20 10*6/uL 4.2-5.4 [facility]: Blood hemoglobin measurement (mass/volume)on 08-17-2021 Hemoglobin (Bld) [Mass/Vol] 10.5 g/dL 12.0-15.0 [facility] Work Phone: Blood lymphocytes/100 leukoc yteson 08-17-2021 Lymphocytes/100 WBC (Bld) 21.8 % 19-41 [facility] Work Phone: Blood monocytes/100 leukocyt eson 08-17-2021 Monocytes/100 WBC (Bld) 9.2 % 0-10 [facility] Work Phone: Blood platelet mean volumeon 08-17-2021 Platelet mean volume (Bld) [Entitic vol] 10.6 fL 6.2-12.0 [facility] Work Phone: Determination of erythrocyte mean corpuscular volume (MCV)on 08-17-2021 MCV (RBC) [Entitic vol] 100.3 fL 81-99 [facility] Work Phone: Hematocrit Auto (Bld) [Volum e fraction]on 08-17-2021 Hematocrit (Bld) [Volume fraction] 32.1 % 37-47 [facility] Work Phone: Laboratory - Chemistry and C hemistry - challengeon 08-17-2021 CO2 [Moles/Vol] 23.0 mmol/L 21.0-32.0 [facility] Work Phone: Urea nitrogen/Creatinine [Mass ratio] 14.0 mg/mg 10-20 [facility] Work Phone: Laboratory - Hematology and Cell countson 08-17-2021 Erythrocyte distribution width (RBC) [Entitic vol] 50.1 fL 35.1-43.9 [facility] Work Phone: Erythrocyte distribution width (RBC) [Ratio] 13.5 % 11.6-14.6 [facility] Work Phone: Immature granulocytes/100 WBC (Bld) 1.700 % 0.0-0.9 [facility] Work Phone: Comment on above: IG% - Immature Granu locytes (promyelocytes, myelocytes and metamyelocytes) > 1% indicates that a LEFT SHIFT is Present. MCH (RBC) [Entitic mass] 32.8 pg 27.0-32.0 [facility] Work Phone: Nucleated RBC/100 WBC (Bld) [Ratio] 0 % 0-5 [facility] Work Phone: MCHC Auto (RBC) [Mass/Vol]on 08-17-2021 MCHC (RBC) [Mass/Vol] 32.7 g/dL 32-36 [facility] Work Phone: No Panel Informationon 08-17 Estimated Creatinine Clearance Calc 46.56 ml/min [facility] Work Phone: Estimated GFR (MDRD) Amer 83 mL/min >60 [facility] Work Phone: Comment on above: GFR Calc Estimated GFR (MDRD) Non-Af Amer 68 mL/min >60 [facility] Work Phone: Comment on above: Non- GFR Calc Platelets bldon 08-17-2021 Platelets (Bld) [#/Vol] 458 10*3/uL 150-450 [facility] Work Phone: Serum or plasma calcium jd urement (mass/volume)on 08-17-2021 Calcium [Mass/Vol] 8.8 mg/dL 8.5-10.1 [facility] Work Phone: Serum or plasma creatinine m easurement (mass/volume)on 08-17-2021 Creatinine [Mass/Vol] 0.86 mg/dL 0.55-1.02 [facility] Work Phone: Comment on above: The validity of the calculated GFR & GFRAA in patients over 70 years has not been determined. Clinical correlation is essential. Serum or plasma urea nitroge n measurement (mass/volume)on 08-17-2021 Urea nitrogen [Mass/Vol] 12 mg/dL 7-18 [facility] Work Phone: Thin prep Papanicolaou smear with manual screeningon 08-17-2021 Thin prep Papanicolaou smear with manual screening 6 5-15 [facility] Work Phone: Basophil percentageon 2021 Basophil percentage 0 SEEN /hpf [facility] Work Phone: Bilirubin Test strip Ql (U)o n 08-14-2021 Bilirubin Ql (U) Negative Negative [facility] Work Phone: Culture, urineon 08-14-2021 Bacteria identified Cx Nom (U) Culture exhibits no growth. [facility] Work Phone: Ketones Test strip Ql (U)on 08-14-2021 Ketones Ql (U) Negative Negative [facility] Work Phone: Mucus LM Ql (Urine sed)on Mucus Ql (Urine sed) 0 SEEN /hpf [facility] Work Phone: Nitrite Test strip Ql (U)on 08-14-2021 Nitrite Ql (U) Negative Negative [facility] Work Phone: Protein Test strip Ql (U)on 08-14-2021 Protein Ql (U) Negative Negative [facility] Work Phone: Squamous epithelial cells de tection in urine sediment by light microscopyon 08-14-2021 Epithelial cells.squamous LM Ql (Urine sed) 0 SEEN /hpf [facility] Work Phone: Urine blood detectionon RBC Ql (U) Negative Negative [facility] Work Phone: RBC Ql (U) 0 SEEN /hpf [facility] Work Phone: Urine clarityon 08-14-2021 Clarity (U) Clear Clear [facility] Work Phone: Urine color determinationon 08-14-2021 Color (U) Yellow Yellow [facility] Work Phone: Urine glucose detectionon Glucose Ql (U) Normal mg/dl Normal [facility] Work Phone: Urine leukocyte esterase det ection by dipstickon 08-14-2021 Leukocyte esterase Test strip Ql (U) Negative Negative [facility] Work Phone: Urine pHon 08-14-2021 pH (U) 6.0 [pH] [facility] Work Phone: Urine sediment bacteria coun t by microscopy (number/high power field)on 08-14-2021 Bacteria LM.HPF (Urine sed) [#/Area] 0 /[HPF] None Seen [facility] Work Phone: Urine specific gravity measu rementon 08-14-2021 Specific gravity (U) [Rel density] 1.010 [facility] Work Phone: Urobilinogen Auto test strip Ql (U)on 08-14-2021 Urobilinogen Ql (U) Normal mg/dl Normal [facility] Work Phone: No Panel Informationon 08-13 SARS-CoV-2 Antigen (Rapid) [facility] Work Phone: Absolute lymphocyte counton 08-07-2021 Lymphocytes Auto (Unsp spec) [#/Vol] 1.53 10*3/uL 0.83-4.51 [facility] Work Phone: Comment on above: Previous reported re sult: 1.45 X10^3/uLEdited by: LUIS E on 08/07/21:0649 AMENDED REPORT 08/07/21 0649 Absolute Lymph previously reported as: 1.45 X10^3/uL Basophil percentageon 2021 Sodium [Moles/Vol] 129 mmol/L 136-145 [facility] Work Phone: Basophil percentage PATIENT SERVICES CLERK [facility] Work Phone: Comment on above: Previous reported [...] 0.8 % Bilirubin [Mass/Vol] 0.30 mg/dL 0.20-1.00 [facility] Work Phone: Comment on above: For patients on eltr ombopag therapy, use of Dimension [place] TBIL is not recommended. Chloride [Moles/Vol] 102 mmol/L 98-107 [facility] Work Phone: Glucose [Mass/Vol] 106 mg/dL 74-106 [facility] Work Phone: Comment on above: Fasting Glucose resu lt from 100 to 125 mg/dL suggests IMPAIRED HOMEOSTASIS per A.D.A. criteria. Neutrophils (Bld) [#/Vol] 70.7 10*3/uL 2.0-7.7 [facility] Work Phone: Comment on above: Previous reported re sult: 9.7 X10^3/uLEdited by: LUIS E on 08/07/21:0648 AMENDED REPORT 08/07/21647 Absolute Neut previously reported as: 9.7 H X10^3/uL Potassium [Moles/Vol] 4.0 mmol/L 3.5-5.1 [facility] Work Phone: Protein [Mass/Vol] 5.7 g/dL 6.4-8.2 [facility] Work Phone: WBC (Bld) [#/Vol] 13.9 10*3/uL 4.4-11.0 [facility] Work Phone: Blood band neutrophil count as percentage of total leukocyteson 08-07-2021 Band form neutrophils/100 WBC (Bld) 1 % 0-5 [facility] Work Phone: [phone] Blood eosinophils/100 leukoc yteson 08-07-2021 Eosinophils/100 WBC (Bld) 4 % 0-5 [facility] Work Phone: Blood erythrocytes count (nu mber/volume)on 08-07-2021 RBC (Bld) [#/Vol] 3.04 10*6/uL 4.2-5.4 [facility] Work Phone: Blood hemoglobin measurement (mass/volume)on 08-07-2021 Hemoglobin (Bld) [Mass/Vol] 9.9 g/dL 12.0-15.0 [facility] Work Phone: Blood lymphocytes/100 leukoc yteson 08-07-2021 Lymphocytes/100 WBC (Bld) PATIENT SERVICES CLERK [facility] Work Phone: Comment on above: Previous reported re sult: 10.4 %Edited by: LUIS E on 08/07/21:0642 AMENDED REPORT 08/07/21641 LY% previously reported as: 10.4 L % Lymphocytes/100 WBC (Bld) 11 % 19-41 [facility] Work Phone: Blood metamyelocytes/100 echo kocyteson 08-07-2021 Metamyelocytes/100 WBC (Bld) 3 % 0-1 [facility] Work Phone: [phone] Blood monocytes/100 leukocyt eson 08-07-2021 Monocytes/100 WBC (Bld) PATIENT SERVICES CLERK [facility] Work Phone: Comment on above: Previous reported re sult: 8.6 %Edited by: LUIS E on 08/07/21:0642 AMENDED REPORT 08/07/21641 MONO% previously reported as: 8.6 % Monocytes/100 WBC (Bld) 8 % 0-10 [facility] Work Phone: Blood platelet adequacy dete ction by light microscopyon 08-07-2021 Platelets LM Ql (Bld) A[facility]ATE ADEQ [facility] Work Phone: Blood platelet mean volumeon 08-07-2021 Platelet mean volume (Bld) [Entitic vol] 10.8 fL 6.2-12.0 [facility] Work Phone: Blood segmented neutrophils/ 100 leukocyteson 08-07-2021 Segmented neutrophils/100 WBC (Bld) 71 % 47-70 [facility] Work Phone: Determination of erythrocyte mean corpuscular volume (MCV)on 08-07-2021 MCV (RBC) [Entitic vol] 100.0 fL 81-99 [facility] Work Phone: Glucose Glucometer (BldC) [M ass/Vol]on 08-07-2021 Glucose [Mass/Vol] 149 mg/dL 70-110 [facility] Work Phone: Comment on above: MANAGEMENT OF PATIEN T CARE PER NURSING PROTOCOL Hematocrit Auto (Bld) [Volum e fraction]on 08-07-2021 Hematocrit (Bld) [Volume fraction] 30.4 % 37-47 [facility] Work Phone: Laboratory - Chemistry and C hemistry - challengeon 08-07-2021 ALP [Catalytic activity/Vol] 89 U/L 45-117 [facility] Work Phone: ALT [Catalytic activity/Vol] 25 U/L 13-56 [facility] Work Phone: CO2 [Moles/Vol] 21.0 mmol/L 21.0-32.0 [facility] Work Phone: Globulin (S) [Mass/Vol] 3.7 g/dL 2.2-4.2 [facility] Work Phone: Urea nitrogen/Creatinine [Mass ratio] 18.1 mg/mg 10-20 [facility] Work Phone: Laboratory - Hematology and Cell countson 08-07-2021 Erythrocyte distribution width (RBC) [Entitic vol] 49.0 fL 35.1-43.9 [facility] Work Phone: Erythrocyte distribution width (RBC) [Ratio] 13.3 % 11.6-14.6 [facility] Work Phone: MCH (RBC) [Entitic mass] 32.6 pg 27.0-32.0 [facility] Work Phone: [phone] Myelocytes/100 WBC (Bld) 2 % 0-0 [facility] Work Phone: Nucleated RBC/100 WBC (Bld) [Ratio] 0 % 0-5 [facility] Work Phone: MCHC Auto (RBC) [Mass/Vol]on 08-07-2021 MCHC (RBC) [Mass/Vol] 32.6 g/dL 32-36 [facility] Work Phone: No Panel Informationon 08-07 Estimated Creatinine Clearance Calc 40.04 ml/min [facility] Work Phone: Estimated GFR (MDRD) Amer 93 mL/min >60 [facility] Work Phone: Comment on above: GFR Calc Estimated GFR (MDRD) Non-Af Amer 77 mL/min >60 [facility] Work Phone: Comment on above: Non- GFR Calc Immature Granulocyte % (Auto) PATIENT SERVICES CLERK [facility] Work Phone: Comment on above: Previous reported re sult: 6.400 %Edited by: LUIS E on 08/07/21:0642 AMENDED REPORT 08/07/21 0642 IM GRAN % previously reported as: 6.400 H % IG% - Immature Granulocytes (promyelocytes, myelocytes and metamyelocytes) > 1% indicates that a LEFT SHIFT is Present. Platelets bldon 08-07-2021 Platelets (Bld) [#/Vol] 342 10*3/uL 150-450 [facility] Work Phone: RBC morphologyon 08-07-2021 RBC morphology finding Nom (Bld) NORM C+C NORMAL NORM C&C [facility] Work Phone: Review by pathologiston 07-12 Pathologist review Alejandro (Unsp spec) [Interp] Reviewed [facility] Work Phone: Comment on above: Previous reported re sult: Alexa cuevas Edited by: [email or web address] on 08/07/21:1245Neutrophilic leukocytosis with slight left shift. Macrocytic anemia.Clinical correlation suggested.Gabe Rodriguez D.O. 08/07/21 AMENDED REPORT 08/07/21 1245 PATH REV previously reported as: Alexa cuevas Serum or plasma albumin jd urement (mass/volume)on 08-07-2021 Albumin [Mass/Vol] 2.0 g/dL 3.2-5.0 [facility] Work Phone: Serum or plasma albumin/glob ulin mass ratioon 08-07-2021 Albumin/Globulin [Mass ratio] 0.5 {ratio} 0.9-2.4 [facility] Work Phone: Serum or plasma calcium jd urement (mass/volume)on 08-07-2021 Calcium [Mass/Vol] 8.0 mg/dL 8.5-10.1 [facility] Work Phone: Serum or plasma creatinine m easurement (mass/volume)on 08-07-2021 Creatinine [Mass/Vol] 0.78 mg/dL 0.55-1.02 [facility] Work Phone: Comment on above: The validity of the calculated GFR & GFRAA in patients over 70 years has not been determined. Clinical correlation is essential. Serum or plasma urea nitroge n measurement (mass/volume)on 08-07-2021 Urea nitrogen [Mass/Vol] 14 mg/dL 7-18 [facility] Work Phone: Thin prep Papanicolaou smear with manual screeningon 08-07-2021 Thin prep Papanicolaou smear with manual screening 15 U/L 15-37 [facility] Work Phone: Thin prep Papanicolaou smear with manual screening 7 5-15 [facility] Work Phone: Total cell counton 2 Cells counted Molgen (Bld/Tiss) [#] 100 MANUAL DIFF [facility] Work Phone: Basophil percentageon 2021 Basophil percentage 10-25 SEEN /hpf [facility] Work Phone: Bilirubin Test strip Ql (U)o n 08-06-2021 Bilirubin Ql (U) Negative Negative [facility] Work Phone: Culture, urineon 08-06-2021 Bacteria identified Cx Nom (U) Pseudomonas aeroginosa [facility] Work Phone: Ketones Test strip Ql (U)on 08-06-2021 Ketones Ql (U) Negative Negative [facility] Work Phone: Laboratory - Chemistry and C hemistry - challengeon 08-06-2021 Lipase [Catalytic activity/Vol] 96 U/L 73-393 [facility] Work Phone: Laboratory - Hematology and Cell countson 08-06-2021 Anisocytosis Ql (Bld) 1+ [facility] Work Phone: Macrocytes detectionon 08-06 Macrocytes Ql (Bld) 1+ [facility] Work Phone: Mucus LM Ql (Urine sed)on Mucus Ql (Urine sed) 0 SEEN /hpf [facility] Work Phone: Nitrite Test strip Ql (U)on 08-06-2021 Nitrite Ql (U) Negative Negative [facility] Work Phone: No Panel Informationon 08-06 SARS-CoV-2 Antigen (Rapid) [facility] Work Phone: Protein Test strip Ql (U)on 08-06-2021 Protein Ql (U) 15 mg/dl Negative [facility] Work Phone: Squamous epithelial cells de tection in urine sediment by light microscopyon 08-06-2021 Epithelial cells.squamous LM Ql (Urine sed) 0-5 SEEN /hpf [facility] Work Phone: Urine blood detectionon 07-12 RBC Ql (U) 250 /ul Negative [facility] Work Phone: RBC Ql (U) 10-25 SEEN /hpf [facility] Work Phone: Urine clarityon 08-06-2021 Clarity (U) Clear Clear [facility] Work Phone: Urine color determinationon 08-06-2021 Color (U) Yellow Yellow [facility] Work Phone: Urine glucose detectionon Glucose Ql (U) Normal mg/dl Normal [facility] Work Phone: Urine leukocyte esterase det ection by dipstickon 08-06-2021 Leukocyte esterase Test strip Ql (U) 500 /ul Negative [facility] Work Phone: Urine pHon 08-06-2021 pH (U) 6.0 [pH] [facility] Work Phone: Urine sediment bacteria coun t by microscopy (number/high power field)on 08-06-2021 Bacteria LM.HPF (Urine sed) [#/Area] 2 /[HPF] None Seen [facility] Work Phone: Urine specific gravity measu rementon 08-06-2021 Specific gravity (U) [Rel density] 1.015 [facility] Work Phone: Urobilinogen Auto test strip Ql (U)on 08-06-2021 Urobilinogen Ql (U) Normal mg/dl Normal [facility] Work Phone: Absolute lymphocyte counton 08-02-2021 Lymphocytes Auto (Unsp spec) [#/Vol] 1.31 10*3/uL 0.83-4.51 [facility] Work Phone: Basophil percentageon 2021 Basophils/100 WBC (Bld) 0.3 % 0-1 [facility] Work Phone: Bilirubin [Mass/Vol] 0.40 mg/dL 0.20-1.00 [facility] Work Phone: Comment on above: For patients on eltr ombopag therapy, use of Dimension [place] TBIL is not recommended. Chloride [Moles/Vol] 108 mmol/L 98-107 [facility] Work Phone: Eosinophils/100 WBC (Bld) 2.2 % 0-5 [facility] Work Phone: Glucose [Mass/Vol] 127 mg/dL 74-106 [facility] Work Phone: [phone] Comment on above: Fasting Glucose resu lt greater than or equal to 126 mg/dL suggests DIABETES MELLITUS per A.D.A. criteria. Neutrophils (Bld) [#/Vol] 11.6 10*3/uL 2.0-7.7 [facility] Work Phone: Neutrophils/100 WBC (Bld) 80.8 % 47-70 [facility] Work Phone: Potassium [Moles/Vol] 4.1 mmol/L 3.5-5.1 [facility] Work Phone: Protein [Mass/Vol] 5.7 g/dL 6.4-8.2 [facility] Work Phone: Sodium [Moles/Vol] 136 mmol/L 136-145 [facility] Work Phone: WBC (Bld) [#/Vol] 14.3 10*3/uL 4.4-11.0 [facility] Work Phone: [phone] Blood erythrocytes count (nu mber/volume)on 08-02-2021 RBC (Bld) [#/Vol] 3.02 10*6/uL 4.2-5.4 [facility] Work Phone: Blood hemoglobin measurement (mass/volume)on 08-02-2021 Hemoglobin (Bld) [Mass/Vol] 9.9 g/dL 12.0-15.0 [facility] Work Phone: [phone] Blood lymphocytes/100 leukoc yteson 08-02-2021 Lymphocytes/100 WBC (Bld) 9.2 % 19-41 [facility] Work Phone: Blood monocytes/100 leukocyt eson 08-02-2021 Monocytes/100 WBC (Bld) 7.0 % 0-10 [facility] Work Phone: Blood platelet mean volumeon 08-02-2021 Platelet mean volume (Bld) [Entitic vol] 11.0 fL 6.2-12.0 [facility] Work Phone: Determination of erythrocyte mean corpuscular volume (MCV)on 08-02-2021 MCV (RBC) [Entitic vol] 100.7 fL 81-99 [facility] Work Phone: Glucose Glucometer (BldC) [M ass/Vol]on 08-02-2021 Glucose [Mass/Vol] 172 mg/dL 70-110 [facility] Work Phone: Comment on above: MANAGEMENT OF PATIEN T CARE PER NURSING PROTOCOL Hematocrit Auto (Bld) [Volum e fraction]on 08-02-2021 Hematocrit (Bld) [Volume fraction] 30.4 % 37-47 [facility] Work Phone: Laboratory - Chemistry and C hemistry - challengeon 08-02-2021 ALP [Catalytic activity/Vol] 80 U/L 45-117 [facility] Work Phone: ALT [Catalytic activity/Vol] 23 U/L 13-56 [facility] Work Phone: CO2 [Moles/Vol] 22.0 mmol/L 21.0-32.0 [facility] Work Phone: Globulin (S) [Mass/Vol] 3.7 g/dL 2.2-4.2 [facility] Work Phone: Urea nitrogen/Creatinine [Mass ratio] 19.4 mg/mg 10-20 [facility] Work Phone: Laboratory - Hematology and Cell countson 08-02-2021 Erythrocyte distribution width (RBC) [Entitic vol] 51.8 fL 35.1-43.9 [facility] Work Phone: Erythrocyte distribution width (RBC) [Ratio] 13.9 % 11.6-14.6 [facility] Work Phone: Immature granulocytes/100 WBC (Bld) 0.500 % 0.0-0.9 [facility] Work Phone: Comment on above: IG% - Immature Granu locytes (promyelocytes, myelocytes and metamyelocytes) > 1% indicates that a LEFT SHIFT is Present. MCH (RBC) [Entitic mass] 32.8 pg 27.0-32.0 [facility] Work Phone: Nucleated RBC/100 WBC (Bld) [Ratio] 0 % 0-5 [facility] Work Phone: MCHC Auto (RBC) [Mass/Vol]on 08-02-2021 MCHC (RBC) [Mass/Vol] 32.6 g/dL 32-36 [facility] Work Phone: No Panel Informationon 08-02 Estimated Creatinine Clearance Calc 40.04 ml/min [facility] Work Phone: Estimated GFR (MDRD) Amer 120 mL/min >60 [facility] Work Phone: Comment on above: GFR Calc Estimated GFR (MDRD) Non-Af Amer 99 mL/min >60 [facility] Work Phone: Comment on above: Non- GFR Calc Platelets bldon 08-02-2021 Platelets (Bld) [#/Vol] 257 10*3/uL 150-450 [facility] Work Phone: Serum or plasma albumin jd urement (mass/volume)on 08-02-2021 Albumin [Mass/Vol] 2.0 g/dL 3.2-5.0 [facility] Work Phone: Serum or plasma albumin/glob ulin mass ratioon 08-02-2021 Albumin/Globulin [Mass ratio] 0.5 {ratio} 0.9-2.4 [facility] Work Phone: Serum or plasma calcium jd urement (mass/volume)on 08-02-2021 Calcium [Mass/Vol] 8.3 mg/dL 8.5-10.1 [facility] Work Phone: Serum or plasma creatinine m easurement (mass/volume)on 08-02-2021 Creatinine [Mass/Vol] 0.62 mg/dL 0.55-1.02 [facility] Work Phone: Comment on above: The validity of the calculated GFR & GFRAA in patients over 70 years has not been determined. Clinical correlation is essential. Serum or plasma urea nitroge n measurement (mass/volume)on 08-02-2021 Urea nitrogen [Mass/Vol] 12 mg/dL 7-18 [facility] Work Phone: Thin prep Papanicolaou smear with manual screeningon 08-02-2021 Thin prep Papanicolaou smear with manual screening 12 U/L 15-37 [facility] Work Phone: Thin prep Papanicolaou smear with manual screening 6 5-15 [facility] Work Phone: Whole blood hemoglobin A1c/t otal hemoglobin ratio (mass fraction)on 08-01-2021 HbA1c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 Start: 12-30-2020 DIABETES SCREEN DIABETES SCREEN [facility] Start: 12-30-2020 Diabetes Screening Diabetes Screenin g [facility] Start: 2008 BONE DENSITY BONE DENSITY [facility] Start: 2008 Bone Density Screening Bone Density Screening [facility] Start: 2008 Screening for osteoporosis Bone Dens ity Screening [facility] Start: 1961 ANNUAL PCP TEAM BENEFIT AUTHORIZER [place] DISEASE VISIT ANNUAL PCP TEAM CHRONIC DISEASE VISIT [facility] Start: 1961 Anxiety Screening Anxiety Screening [facility] Start: 1961 BP CONTROLLED (<130/80) BP CON TROLLED (<130/80) [facility] Start: 1961 Depression Screening Depression Scre ening [facility] Start: 1961 SPIROMETRY SPIROMETRY [facility] Alanine aminotransfe rase [Enzymatic activity/volume] in Serum or Plasma [facility] Albumin [Mass/volume ] in Serum or Plasma [facility] ALERE STREP A TEST (AG) ALERE ST REP A TEST (AG) Lab Routine FUO (fever of unknown origin) Ordered: 06/13/2023 [facility] Work Phone: Comment on above: Ordered: 06/13/2023 Alkaline phosphatase [Enzymatic activity/volume] in Serum or Plasma [facility] Anion gap in Serum o r Plasma [facility] Anion gap measurement [facility] Bacteria identified in Urine by Culture URINE CULTURE Microbiology Routine FUO (fever of unknown origin) 06/13/2023 7:29 PM EST [facility] Work Phone: Bilirubin, total measurement [facility] BUN/Creatinine ratio [facility] BUN/Creatinine ratio [facility] Calcium [Mass/volume ] in Serum or Plasma [facility] Calcium [Mass/volume ] in Serum or Plasma [facility] Carbon dioxide, tota l [Moles/volume] in Central venous blood [facility] Carbon dioxide, tota l [Moles/volume] in Serum or Plasma [facility] Chloride [Moles/volu me] in Serum or Plasma [facility] Cholesterol [Mass/vo lume] in Serum or Plasma [facility] Cholesterol in HDL [Mass/volume] in Serum or Plasma [facility] Creatinine [Mass/vol ume] in Serum or Plasma [facility] Creatinine [Moles/vo lume] in Serum or Plasma [facility] Erythrocyte mean corpuscular volume determination [facility] Glucose [Mass/volume ] in Serum or Plasma [facility] Glucose [Mass/volume ] in Serum or Plasma [facility] Hematocrit [Volume Fraction] of Blood [facility] Hemoglobin [Mass/vol ume] in Blood [facility] Influenza virus A an d B RNA and SARS-CoV-2 (COVID-19) N gene panel - Respiratory specimen by PRIYANKA with probe detection COVID & INFLUENZA A/B NAAT, ROUTINE Microbiology Routine FUO (fever of unknown origin) Viral syndrome 06/13/2023 5:30 PM [facility] Work Phone: Leukocytes [#/volume ] in Blood [facility] Low density lipoprot ein cholesterol measurement [facility] Mean corpuscular hemoglobin concentration determination [facility] Mean corpuscular hemoglobin determination [facility] Measurement of renal function [facility] Measurement of renal function [facility] Neutrophil count [facility] Neutrophil percent differential count [facility] Patient Education Hyponatremia D c ED CYSTITIS Female Adult [facility] Work Phone: Patient referral [facility] Work Phone: Platelets [#/volume] in Blood [facility] Potassium [Moles/vol ume] in Serum or Plasma [facility] Potassium measurement [facility] Procedure [facility] Work Phone: Red blood cell count [facility] Red cell distributio n width determination [facility] Serum chloride measurement [facility] Sodium [Moles/volume ] in Serum or Plasma [facility] Sodium measurement [facility] Total cholesterol:HD L ratio measurement [facility] Total protein measurement [facility] Triglycerides measurement [facility] Urea nitrogen [Mass/volume] in Serum or Plasma [facility] Urea nitrogen [Mass/volume] in Serum or Plasma [facility] US Heart [facility] VLDL cholesterol measurement [facility] XR Ribs GE 3 Views a nd Chest PA [facility] Immunizations Immunization Date Immunization Notes Care Provider Fa [facility] 03-29-2024 influenza, high dose seasonal, preservative-free Dr. Dionne Magaña MD Work Phone: [facility] 07-01-2023 tetanus toxoid, redu stef diphtheria toxoid, and acellular pertussis vaccine, adsorbed Dr. Dionne Magaña Work Phone: [facility] 05-13-2023 Pfizer Covid-19 (Comirnaty) Dr. Dionne Magaña Work Phone: [facility] 04-13-2023 influenza, injectabl e, quadrivalent, preservative free Dr. Dionne Magaña Work Phone: [facility] 04-13-2023 influenza virus vacc ine, unspecified formulation Xr [place] Work Phone: [facility] 04-04-2023 RSV Adult BiValent (Abrysvo) Dr. Dionne Magaña Work Phone: [facility] 05-21-2022 influenza virus vacc ine, unspecified formulation DR MIKEY OROPEZA MD [facility] 05-21-2022 influenza, injectabl e, quadrivalent, contains preservative Manuel Wise PA-C Work Phone: [facility] 05-21-2022 influenza, injectabl e, quadrivalent, preservative free Dr. Dionne Magaña Work Phone: [facility] 05-21-2022 influenza, seasonal, injectable Dr. Oscar Adhikari Work Phone: [facility] 12-10-2021 SARS-CoV-2 mRNA (tozinameran) vaccine DR MIKEY OROPEZA MD [facility] 11-10-[address] MIKEY OROPEZA MD [facility] 07-24-2021 SARS-CoV-2 mRNA (tozinameran) vaccine DR MIKEY OROPEZA MD [facility] 07-22-2021 Covid (Pfizer) Dr. Oscar Howard sen Work Phone: [facility] 05-13-2021 tetanus toxoid, redu stef diphtheria toxoid, and acellular pertussis vaccine, adsorbed DR MIKEY OROPEZA MD [facility] 04-07-2021 influenza, injectabl e, quadrivalent, preservative free Dr. Dionne Magaña Work Phone: [facility] 04-07-2021 influenza, seasonal, injectable Dr. Oscar Adhikari Work Phone: [facility] 02-25-2021 influenza virus vacc ine, unspecified formulation DR MIKEY OROPEZA MD [facility] 02-25-2021 influenza, injectabl e, quadrivalent, contains preservative Manuel Wise PA-C Work Phone: [facility] 02-25-2021 influenza, injectabl e, quadrivalent, preservative free Dr. Dionne Magaña Work Phone: [facility] 02-25-2021 influenza, seasonal, injectable Dr. Oscar Adhikari Work Phone: [facility] 12-31-2020 pneumococcal polysaccharide vaccine, [address] MIKEY OROPEZA MD [facility] 12-31-[address] Olivia Adhikari Work Phone: [facility] Work Phone: 12-31-2020 pneumococcal vaccine , unspecified formulation Dr. Oscar Adhikari Work Phone: [facility] 11-07-2020 Covid (Pfizer) Dr. Oscar mace Work Phone: [facility] Comment on above: Result Comment: 2021: [id number] 10-17-2020 Covid (Pfizer) Dr. Oscar mace Work Phone: [facility] Comment on above: Result Comment: 2021: [id number] 08-11-2020 SARS-CoV-2 mRNA (tozinameran) vaccine DR MIKEY OROPEZA MD [facility] 07-18-2020 tetanus toxoid, redu stef diphtheria toxoid, and acellular pertussis vaccine, adsorbed DR MIKEY OROPEZA MD [facility] 05-27-[address] Olivia Adhikari Work Phone: [facility] Work Phone: 05-27-2020 pneumococcal vaccine , unspecified formulation Dr. Oscar Adhikari Work Phone: [facility] 02-28-2020 influenza virus vacc ine, unspecified formulation DR MIKEY OROPEZA MD [facility] 02-28-2020 influenza, injectabl e, quadrivalent, contains preservative Manuel Wise PA-C Work Phone: [facility] 02-28-2020 influenza, injectabl e, quadrivalent, preservative free Dr. Dionne Magaña Work Phone: [facility] 02-28-2020 influenza, seasonal, injectable Dr. Oscar Adhikari Work Phone: [facility] 06-28-[address] MIKEY OROPEZA MD [facility] 04-26-2019 tetanus toxoid, redu stef diphtheria toxoid, and acellular pertussis vaccine, adsorbed DR MIKEY OROPEZA MD [facility] 04-26-[address] MIKEY OROPEZA MD [facility] 10-23-[address] MIKEY OROPEZA MD [facility] 09-05-2018 influenza, injectabl e, quadrivalent, preservative free Dr. Dionne Magaña Work Phone: [facility] 09-05-2018 influenza, seasonal, injectable Dr. Oscar Adhikari Work Phone: [facility] 05-04-2017 tetanus toxoid, redu stef diphtheria toxoid, and acellular pertussis vaccine, adsorbed DR MIKEY OROPEZA MD [facility] 08-19-2011 pneumococcal polysaccharide vaccine, [address] MIKEY OROPEZA MD [facility] Payers Date Payer Category Payer Self-pay [id number] 2023 Medicare [id number] 2023 Unknown [id number] 2015 Medicare [id number]. [id number] 2015 Medicare [id number] 1945 Unknown [id number] 2.16.840.1.416710.3.579.2.627 1945 Unknown [id number] 2.16.840.1.119623.3.579.2.627 1945 Unknown [id number] 2.16.840.1.922387.3.579.2.627 Private Health Insurance [facility] [id number] Unknown [id number] Unknown [id number] Unknown [facility] ADV [id number] Unknown [id number] 2.16.840.1.857868.3.579.2.462 Unknown [id number] 2.16.840.1.387146.3.579.2.462 Unknown [id number] 2.16.840.1.067892.3.579.2.462 Unknown [id number] 2.16.840.1.969565.3.579.2.462 Unknown [id number] 2..840.1.465162.3.579.2.462 Unknown [id number] 2..840.1.232191.3.579.2.462 Unknown [id number] 2.16.840.1.437380.3.579.2.462 Unknown [id number] 2.16.840.1.226443.3.579.2.462 Unknown [id number] 2.840.1.436529.3.579.2.462 Unknown [id number] 2.840.1.998286.3.579.2.462 Unknown [id number] 2.16.840.1.430931.3.579.2.462 Unknown [id number] 2.16.840.1.656643.3.579.2.462 Unknown [id number] 2.16.840.1.936390.3.579.2.462 Unknown [id number] 2.16840.1.759569.3.579.2.462 Unknown [id number] 2..840.1.299270.3.579.2.462 Unknown [id number] 2.16.840.1.927212.3.579.2.462 Unknown [id number] 2.16.840.1.439694.3.579.2.462 Unknown [id number] 2.16.840.1.370864.3.579.2.462 Unknown [id number] 2.16.840.1.862752.3.579.2.462 Unknown [id number] 2.16.840.1.276088.3.579.2.462 Unknown [id number] 2.16.840.1.251023.3.579.2.462 Unknown [id number] 2.16.840.1.312757.3.579.2.462 Unknown [id number] 2.16.840.1.793001.3.579.2.462 Unknown [id number] 2.16.840.1.979265.3.579.2.462 Unknown [id number] 2.16.840.1.824932.3.579.2.462 Social History Date Type Detail Facility [facility] Work Phone: Start: 08-06-2021 End: 09-29-2023 Tobacco smoking status NHIS Unknown if ever smoked [facility] Start: 06-19-2020 None [facility] Start: 11-13-2020 Homeless [facility] Start: 06-19-2020 Non-smoker [facility] Start: 1945 Sex Assigned At Female W [facility] Start: 06-22-2022 End: 05-31-2024 Tobacco smoking status Never smoked tobacco (finding) [facility] Sex Assigned At Sex [facility] Start: 10-13-2015 Tobacco use and exposure Smokeless tobacco non-user [facility] Start: 01-31-2023 End: 02-07-2023 Alcohol intake Current non-drinker of alcohol (finding) [facility] Start: 01-31-2023 End: 07-31-2023 History of Social function [facility] Start: 01-31-2023 End: 02-07-2023 Tobacco use panel [facility] Start: 1945 Sex Assigned At Not on file [facility] National Score (1-100), lower number is lower risk 64 [facility] Start: 06-19-2020 Lives Lives [facility] Medical Equipment Procedure Code Equipment Code Equipment Origin al Text Equipment Identifier Dates Minimally invasive total replacement of hip joint by anterior approach ([id number]) Ceramic femoral head prosthesis ()[id number] FDA Start: 01-21-2021 Minimally invasive total replacement of hip joint by anterior approach ([id number]) Coated hip femur prosthesis, modular ()[id number] FDA Start: 01-21-2021 Minimally invasive total replacement of hip joint by anterior approach ([id number]) Non-constrained polyethylene acetabular liner ()[id number] TV FDA Start: 01-21-2021 Minimally invasive total replacement of hip joint by anterior approach ([id number]) Acetabular shell ()[id number] FDA Start: 01-21-2021 Insertion, spinal cord stimulator, [...] Start: 02-22-2020 PATCH,AMNION 2X3CM FDA Start: 06-17-2020 ([id number]) Uncoated shoulde r humeral stem prosthesis ()[id number] ()[id number] 6E FDA Start: 07-29-2021 ([id number]) Reverse shoulder prosthesis base plate ()[id number] FDA Start: 07-29-2021 ([id number]) Stem-fixed humer al head prosthesis ()[id number] ()[id number] 46 FDA Start: 07-29-2021 ([id number]) Stem-fixed humer al head prosthesis ()[id number] 0P FDA Start: 07-29-2021 (052593211) Stem-fixed humer al head prosthesis ()[id number] ()[id number] A5 FDA Start: 07-29-2021 ([id number]) Reverse shoulder prosthesis head ()[id number] ()[id number] 2N FDA Start: 07-29-2021 (589965026) Total shoulder prosthesis ()[id number] ()[id number] FDA Start: 07-29-2021 ([id number]) Metallic reverse shoulder prosthesis cup ()[id number] ()[id number] 2A FDA Start: 07-29-2021 Medtronic Intell is [...] 09-17-2023 Functional Status Independent [facility] 09-17-2023 Functional Status Repositions self [facility] 06-20-2023 Functional Status ID band on, Call device within reach, Bed in low position, Wheels locked, Upper/Half-Length side-rails up, Visitor at bedside, Safety level maintained [facility] 07-09-2022 Functional Status Room check performed [facility]] 07-09-2022 [facility] Functional Status Supervised 1 [facility]ayan [facility] 07-09-2022 Functional Status Narayan [facility] 07-09-2022 Functional Status Activity Statu s ADL Repositions self, Sleeping [facility] 07-08-2022 [facility] Functional Status Narayan [facility] 07-08-2022 Functional Status Min A Narayan [place] 07-08-2022 Functional Status Narayan [facility] 07-08-2022 Functional Status Linen Change Done [facility] 07-07-2022 Functional Status SCD Removed/Of f bilateral knee [facility] 07-07-2022 Functional Status None [facility]ayan [facility] 07-07-2022 Functional Status Lunch Percent 75 [facility] 07-07-2022 Functional Status Narayan [facility] 07-07-2022 Functional Status Single level home [facility] 07-07-2022 Functional Status SCD On/Re-appl ied bilateral knee [facility] 07-07-2022 Functional Status Narayan [facility] 07-06-2022 Functional Status Narayan [facility] 07-06-2022 Functional Status Narayan [facility] 07-06-2022 Functional Status Dinner Percent 75 [facility] 07-06-2022 Functional Status [facility] 07-06-2022 Functional Status ice chips and sips take n [facility] 07-06-2022 [facility] Functional Status [facility] 06-22-2022 Functional Status Sensory Deficits None A [facility] 12-01-2021 Functional status Chair [facility] Work Phone: 08-20-2021 Functional status Activity Ability Indepe ndent [facility] Work Phone: 08-16-2021 Functional status Patient Activity Chair [facility] Work Phone: 08-14-2021 Functional status Rolling Walker [facility] Work Phone: 08-07-2021 Functional status Patient Activity Chair [facility] Work Phone: 08-07-2021 Functional status Standby Assist [facility] Work Phone: 08-02-2021 Functional status Activity Abili ty With Assist of 1 [facility] Work Phone: 08-01-2021 Functional status Patient Activi ty Ambulates;Chair;Bedside Commode [facility] Work Phone: 07-31-2021 Functional status None [facility] Work Phone: Mental Status Date Assessment Result Facility 09-17-2023 Mental Status Orientation Oriented x 4 [facility]3] 06-20-2023 Mental Status Oriented x 4 [facility] 07-09-2022 Mental Status Orientation Oriented x 4 [facility]3] 07-09-2022 Mental Status [facility] 07-09-2022 Mental Status [facility] 07-08-2022 Mental Status Identifies self, Not oriented to place [facility] 07-07-2022 Mental Status [facility] 12-01-2021 Cognitive function Voice/Name [facility] Work Phone: 08-20-2021 Cognitive function Voice/Name [facility] Work Phone: 08-07-2021 Cognitive function Appropriate;Cooperativ e [facility] Work Phone: 08-07-2021 Cognitive function Voice/Name [facility] Work Phone: 08-02-2021 Cognitive function Voice/Name [facility] Work Phone: Clinical Notes 07-06-2022 to 04-24-2025 Note Date & Type Note Facility 04-24-2025 Progress note [facility] 04-24-2025 Progress note Note Date/Time April 24, 2025 4:03pm [facility] [address] [place] [address] OFFICE VISIT Date of Service: 04/24/25 MR#: [id number] Acct: [id number] Name: JERRELL STRICKLAND Rep #: [id number] : 1945 Provider: Dr. Dusty Harman MD Age/Sex: 79/F Location: [facility] Status: Signed Intake Vital Signs 01/08/25 07:59 [...] denosumab 60 mg/mL subcutaneous 60 mg subcut [id number] #1 mL 01/17/25 04/24/25 Rx syringe (Prolia) [...] occupational status: retired current occupation: worked at [employer] current occupational exposures/hazards: No pets and animals: [...] Cosigner Signature: Date (if applicable) CC: ~ [place] [email or web address] Work Phone: 1(870) 481-252307-30-2025 Radiology Diagnostic study note [facility] Imaging Services [address] [place] [address] [id number] CTA Head AND Neck W/ Contrast MR#: [id number] Acct: [id number] Name: MARCO ASARAHJERRELL D Rep #: [id number] : 1945 F 79 From: Denzel Jordan MD PCP: Dr. Dionne Magaña MD Status: REG CLI Study:CTA Head AND Neck W/ Contrast Date of E xam: 02/04/25 Exam# [id number] Ordering Dr: Edwin Cole PROCEDURE: CTA HEAD [...] RIGHT Vertebral: Unremarkable. LEFT Vertebral: Unremarkable. Anatomy: [place] anatomy is normal. Aneurysm or [...] a marked degree of stenosis. Reading Location: [id number] CC: VICTOR M Jimenez; Dr. Dionne Magaña MD ~ System Engineer: Signed [facility]07-01-2025 Evaluation note* Diagnosis Onset Date Resolution Status [...] joo 2024 2:42pm [facility] Work Phone: 1(614) 434-4931732116-26-0373 Evaluation note* Diagnosis Onset Date Resolution Status [...] 2025 7:51am Prediabetes noneactive January 08 7:51am [facility] Work Phone: 1(557) 940-212303-23-2025 Evaluation note* Diagnosis Onset Date Resolution Status [...] 2025 7:51am Prediabetes noneactive January 08 7:51am [facility] Work Phone: 1(425) 172-849503-06-2025 Evaluation note* Diagnosis Onset Date Resolution Status Admit Date Acquired hypothyroidism acute M arch 2024 2:15pm Essential hypertension acute [facility] 2024 2:15pm Impaired mobility acute September 132024 2:15pm Chronic back pain greater th an 3 months duration noneactive September 13 2:15pm Chronic insomnia noneactive September 2:15pm Moderate persistent asthma i n adult without complication noneactive September 13, 2024 2:15pm Prediabetes noneactive September 13 2:15pm Maxillary sinusitis acute September 30, 2024 12:34pm Fecal incontinence acute October 16, 2024 12:30pm [facility] Work Phone: 1(465) 574-256403-06-2025 Evaluation note* Diagnosis Onset Date Resolution Status Admit Date Acquired hypothyroidism acute M arch 2024 2:15pm Essential hypertension acute [facility] 2024 2:15pm Impaired mobility acute September [...] 2024 12:30pm Hypotension acute December 21 7:26am [facility] Work Phone: 1(479) 175-313203-06-2025 Evaluation note* Diagnosis Onset Date Resolution Status Admit Date Acquired hypothyroidism acute M arch 2024 2:15pm Essential hypertension acute [facility] 2024 2:15pm Impaired mobility acute September [...] 2025 7:51am Prediabetes noneactive January 08 7:51am [facility] Work Phone: 1(985) 985-411806-15-2024 NoteHNO ID: [id number] Author: NOELLE GARCIA APRN.POND WORKER Service: ? Author Type: Nurse Practitioner Type: Progress Notes Filed: 12/30/2023 12:47 Note Text: This note was created using Lesson [employer]. Subjective Jerrell Strickland is a 78 year [...] - PREDNISONE 10 MG TABLET Noelle Garcia [facility]N.[facility] History of Present illness Narrative* Noelle Garcia APRN.POND WORKER - 12/24/2023 3:09 PM EDT This note was created using Lesson [employer]. Subjective Jerrell Strickland is a 78 year [...] palpation. Assessment and Plan [facility] NoteHNO ID: [id number] Author: ELIZABETH SHAHID APRN.SATISH Service: Hospital Medicine Author Type: Nurse Practitioner Type: Progress Notes Filed: 12/05/2023 13:48 Note Text: DEPARTMENT OF HOSPITAL MEDICINE PROGRESS NOTE SERVICE DATE: 12/05/2023 SERVICE TIME: 12:23 PM Hospital Medicine/Primary Attending: Vinicius Bolivar MD NIGHT AND WEEKEND COVERAGE: [facility] COVERAGE: Days: [phone], please page Elizabeth Shahid for patient issues. Nights: [phone], please page Team [facility] 4: G/H 8th floor: 55769; Non 8th floor [address] Subjective INTERVAL HPI: Transferred to [facility] from [facility] for management of Hyponatremia. Pt pleasant, ambulating [...] and Airways Line Duration Peripheral 12/02/23 1310 [facility] Facility Short Left Forearm 22 Gauge 2 [...] repair, and CVA (08/2023) who presented to [facility] ED on 12/01/23 per recommendation of PCP [...] additional workup for trans (more content not included)...[facility]05-26-2024 NoteHNO ID: [id number] Author: RUSTY WALL MD Service: Neurosurgery Author [...] repair, 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 Transferred to [facility] Main NS on 12/02/23 after OSH [...] MD MPH PGY-4 Neurological Surgery 12:57 PM 12/04/23[facility]05[facility] NoteHNO ID: [id number] Author: SANDIE BARON APRN.POND WORKER Service: Hospital Medicine Author Type: Nurse Practitioner Type: Progress Notes Filed: 12/04/2023 14:21 Note Text: DEPARTMENT OF HOSPITAL MEDICINE PROGRESS NOTE SERVICE DATE: 12/04/2023 SERVICE TIME: 11:15 AM Hospital Medicine/Primary Attending: Vinicius Bolivar MD NIGHT AND WEEKEND COVERAGE: [facility] COVERAGE: Days: [phone], please page Sandie Baron for patient issues. Nights: [phone], please page Team [facility] 4: G/H 8th floor: 62998; Non 8th floor [address] Subjective INTERVAL HPI: Transferring to [facility] from [facility] for hyponatremia Patient sitting up in chair, [...] and Airways Line Duration Peripheral 12/02/23 1310 [facility] Short Left Forearm 22 Gauge 2 days Peripheral 12/02/23 1310 [facility] Facility Short Left Forearm 20 Gauge 2 [...] repair, 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 Transferred to [facility] Main NS on 12/02/23 after OSH [...] on recent dispense report (more content not included)...[facility]05-25-2024 NoteHNO ID: [id number] Author: SHAYY ALCARAZ MD Service: Neurosurgery Author [...] repair, 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 Jerrell indicated she would take this therapist to locations that she normally travels to around [facility]. ENVIRONMENT: Location: Residential, Urban, Interstate, [...] demonstrated functional performance with driving all over [place] including to all of the locations she [...] this report indicates the ability of the commercial relief driver to operate a motor vehicle on [...] ROUTES THAT SHE IS FAMILIAR WITH IN [facility] WHILE AVOIDING LONGER DISTANCES SHE IS ABLE TO; DO NOT DRIVE AT NIGHT/AVOID LOW VISIBILITY CONDITIONS; DO NOT DRIVE WHEN NOT FEELING WELL; MINIMIZE PASSENGER TIME SHE FEELS IS APPROPRIATE (I.E. 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 Jerrell indicated [...] demonstrated functional performance with driving all over [place] including to all of the locations she [...] this report indicates the ability of the commercial relief driver to operate a motor vehicle on [...] ROUTES THAT SHE IS FAMILIAR WITH IN [facility] WHILE AVOIDING LONGER DISTANCES SHE IS [...] OF COGNITIVE IMPAIRMENT. This therapist will provide eJrrell with information regarding safe driving skills, crash avoidance, tips formonitoring driving, and when to stop driving for her reference. Billing: Total Treatment Time Minutes (timed/untimed) 60 Drivers Follow Up per 60 min (72969): 1:1 time 60 min Total time: 60 minutes Hermelinda Baker, OT/L, CDRS, LDI Certified Intake Clinician Mineralogy Professor Episode Visit Count: 2 Therapist That Will [...] Date: 10/28/23 to 11/27/2023 and treatment included: Intake Clinician rehab evaluation. Goals for Episode of Care created on 10/28/23 through 11/20/23 1.Patient will complete clinical training and/or testing at Modified [place] level in preparation for ongoing safe driving. 2.Patient will complete functional mobility task with good safety awareness during behind the wheelassessment. JOSE DANIEL Feng, CDRS, LDI documented [facility] Telephone encounter Note * Telephone Encounter - [...] behind the wheel assessment scheduled for 11/18/23. [facility]05-02-2024 Miscellaneous Notes* Telephone Encounter - Hermelinda Baker [...] assessment scheduled for 11/18/23. documented in [facility]Mi[facility]04-19-2024 NoteHNO ID: [id number] Author: HERMELINDA BAKER OT/L Service: ? Author Type: Occupational Therapist Type: Progress Notes Filed: 11/06/2023 13:42 Note Text: Episode Visit Count: 1 Therapist That Will Accept/Oversee The Plan Of Care: iMndy Baker Start of Care Date: 10/28/23 Onset [...] of a concern which has resulted in [place] physician statement being required (likely the reason why this assessment was ordered). Her daughter also shared that Jerrell's sister who is 4 years older has Alzheimer's dementia and is in a nursing facility. Functional Limitations: heavy exertion Prior Level of Function: Required assistance Home Environment Patient Lives With: Self/Alone Assistance Available: PRN, [employer] Home Type: Apt/Condo Transportation: Car (2022) Patient [...] With: Self/Alone Assistance Available: PRN, [employer] Home Type: Apt/Condo Transportation: Car (2022) Pain Level: 0 Pain Location: (chronic back pain which she takes [place] for each night while also gets injections [...] while last drove to this appointment State: [place] License/Permit #: [id number] Expires: 07/14/27 Restrictions: corrective lenses 5 Yr. [...] SENSORIMOTOR ASSESSMENT: Fausto gutierrez (more content not included)...[facility]04-19-[facility] History of Present illness Narrative* [...] of a concern which has resulted in [place] [facility] physician statement being required (likely the reason why this assessment was ordered). Her daughter also shared that Jerrell's sister who is 4 years older has Alzheimer's dementia and is in a nursing facility. Functional Limitations: heavy exertion Prior Level of Function: Required assistance Home Environment Patient Lives With: Self/Alone Assistance Available: PRN, [employer] Home Type: Apt/Condo Transportation: Car (2022) Patient [...] With: Self/Alone Assistance Available: PRN, [employer] Home Type: Apt/Condo Transportation: Car (2022 Ashwini Rivera) Pain Level: 0 Pain Location: (chronic back pain which she takes [place] for each night while also gets injections [...] while last drove to this appointment State: [place] License/Permit #: [id number] Expires: 07/14/27 Restrictions: corrective lenses 5 Yr. [...] Driving: Right UE: Sufficient Left UE: Sufficient Assembling Fabricator: Sufficient Right LE: Sufficient Left LE: Sufficient Sitting Balance: Sufficient Head / Neck: decreased for extension and rotation to the left Ambulation: Sufficient Transfers: Sufficient Loading of Device: NA ASSESSMENT OF SENSORIMOTOR FUNCTION: Compatible with Driving while does have chronic back pain/takes [place] for at night, has numbness/tingling in BLE's [...] visual holt (although meets minimal requirements for [place]), slowed oculomotor skills and impaired convergence COGNITIVE [...] hearing and auditory attention skills Visual Scanning/Attention: [place] Making Part B (sec): 263 sec (moderate v/c's required for completion) 50th percentile norm for age group: 70-79; Part A: 80 seconds, Part B: 196 seconds Rigoberto Clock Drawing Test: Jerrell Strickland correctly included 7/8 criteria for this test. She failed to include or correctly place: the numbers equally spaced, or nearly so, from the edge [place] According to The Physician's Guide to Assessing [...] raw score and average visual processing speed [place] Intake Clinician Simulator: Simple Brake Reaction Time: Average Distance: 70.7 feet (Normal = 60 feet) R foot only pedal operation method Education: Education Learning Preferences: Explanation Barriers: Cognitive Limitations Learning/educational needs: Safety Education Provided: Yes, see treatment interventions for education provided Education Provided To: Patient, Family (daughter present) Education Mode/Type: Explanation/Discussion Response to Education/Teach Back: States/Identifies TREATMENT: Evaluation Self-Mcc Management: 1: refer to details in this [...] 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 2.Patient will complete functional mobility task with good safety awareness during behind the wheelassessment. Planned Interventions, Frequency, and Duration: Current Frequency: 1 visit Duration: 1 visit Total Number of Visits Planned: 1 Patient to be see for Intake Clinician rehab evaluation, Patient/Family/Caregiver Education PLAN FOR NEXT VISIT: behind the wheel assessment Patient demonstrates good understanding of plan of care and treatment. The above goals and plan of care were discussed and agreed upon by patient/family. Billing: Total Treatment Time Minutes (timed/untimed) 120 Evaluation - Moderate Complexity (45767) Self Care / Home Management (32635): 1:1 time: 30 minutes (2 units: 23-37 mins) Community /Work Re-integration (95490): 1:1 time: 30 minutes (2 units: 23-37 mins) Total time: 120 minutes JOSE DANIEL Feng, CDRS, LDI Certified Intake Clinician Mineralogy Professor [facility] Hospital Discharge instructions Patient Education 09/17/2023 18:24:56 [...] swelling, or pus coming from any wound [phone] [employer]. [address] [place] [address], [place] [address]. All rights reserved. This information is not intended as a substitute for professional medical care. Always follow yourhealthcare professional's instructions. Follow Up Care 09/17/2023 16:18:56 With:Go to emergency room if symptoms worsen Address:Unknown When:2-4 days With:DIONNE MAGAÑA MD Address: [facility] [address] [place] [address]- When:2-4 days [facility] Discharge Instructions Thank you for allowing [facility] to assist you with your healthcare needs. [...] Within 2-4 days Where: [facility] [address] [place] [address]- Allergies NKA Medications Please ask your primary [...] swelling, or pus coming from any wound [phone] [employer]. [address] [place] [address]. All rights reserved. This information is not intended as a substitute for professional medical care. Always follow yourhealthcare professional's instructions. Additional Information VACCINATE! IT SAVES LIVES! Members of the community who have not yet received the COVID-19 vaccine and would like to receive it can visit one of [facility] vaccine clinics. There are many vaccine clinic locations within the [facility]. For locations and available times, please visit [email or web address] It is important to note that some COVID mobile vaccine clinics are held outdoors and may be canceled in rainy or stormy conditions. To learn more about pediatric vaccinations (ages 5-11), we invite you to visit the [facility] webpage. [email or web address]://[email or web address]/pages/[email or web address]-Opvhmqwnzqj-Fksqpmpwjq-Zyadj-Bmu stions.htmlTo learn more about the COVID-19 vaccine, we invite you to visit the CDC website for a list of frequently asked questions. https://www.cdc.gov/coronavirus/2019-ncov/vaccines/faq.html [facility] Patient Portal Access Instructions: Stay connected with your healthcare team and access your personal medical information anytime with the [facility] Patient Portal. If you would like a full copy of your medical records please contact the [facility] Medical Records Department Tuesday through Tuesday between 8a.m. and 4:30p.m. Please follow the directions below to access the portal: 1.Access the email account you provided upon registration to the hospital.2.Look for an invitation email from [facility].3.Open the email and access the invitation link: Accept Invitation to [facility]4.Fill in the required holt to create your account. Sign into [email or web address] Networks with your username and password that you [...] you will allow to register on the [facility] Patient Portal for access to your information. You can also access the [facility] Patient Portal on the [employer]. Simply click on Health Records under Ultimate Shopperta and then click on the Red Stamp logo. HOW TO SAFELY DISPOSE OF PRESCRIPTION [...] Call your local pharmacy or go to [email or web address] to find one close to you.3.Make use of household items: Use cat litter or old coffee grounds to dispose medications if other options arenot available. Mix your drugs with these household products, seal them in an airtight container andthrow it into the garbage. Call [facility]: [phone] to be sure your drugs can be [...] am aware that I should contactmy doctor. Patient/Oil Well Logger Signature: Date/Time: Relationship to Patient: Witness Name/Signature: Date/Time: [facility]03-09-2024 Note ORIGINAL EXAMINATION: TWO XRAY VIEWS OF [...] Date: 09/17/2023 5:59:01 PM [facility] ORIGINAL EXAMINATION: TWO XRAY VIEWS [...] Sign Date: 09/17/2023 6:19:53 PM Ordering Provider: [facility]03-09-2024 Note ORIGINAL EXAMINATION: CT OF THE THORACIC [...] Sign Date: 09/17/2023 6:18:18 PM Ordering Provider: [facility]03-09-2024 Note ORIGINAL EXAMINATION: CT CHEST WITHOUT CONTRAST [...] Sign Date: 09/17/2023 6:18:46 PM Ordering Provider: [facility]03-09-2024 Note ORIGINAL EXAMINATION: CT OF THE CERVICAL [...] CHANGES: There are multilevel degenerative changes, with nwet-rd-hmixysdu 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 Multilevel neural [...] Sign Date: 09/17/2023 5:51:29 PM Ordering Provider: [facility]01-17-2024 NoteHNO ID: [id number] Author: J LUIS SANCHES APRN.POND WORKER Service: ? Author Type: Nurse Practitioner Type: Progress Notes Filed: 07/27/2023 15:34 Note Text: Subjective Came in with complaints of sore right outer calf. Patient says there is some redness around it. Patient's not sure how long she has had it. Patient denies any numbness tingling loss of feeling fever chills or nausea. The history is provided by the patient. No director targeted marketing was used. Review of Systems Constitutional: Negative. [...] Date APPENDECTOMY HYSTERECTOMY HX partial- done in [place] LAMINECTOMY W/O FFD 07/12 VERT SEG LUMBAR [...] with this care plan J Luis Sanches APRN.[facility]01-05-2024 NoteHNO ID: [id number] Author: FRANCOISE VALENTINO [place] Service: ? Author Type: Physician Television Receiver Analyzer Type: Progress Notes Filed: 07/15/2023 09:26 Note Text: This note was created using WeHack.Itriter. Subjective Jerrell Strickland is a 78 year old female. HPI 78-year-old female presents for right lower leg wound. Patient states that she hit her leg on something last week and had a small wound to her right johnosn. She states that it has had a small pussy area and last night started hurting worse. She has some surrounding redness. No calf pain or tenderness. No history of diabetes. No fevers. No other complaints. PAST MEDICAL HISTORY Diagnosis Date Asthma Hyperlipidemia Hypertension Hypothyroidism Syncope PAST SURGICAL HISTORY Procedure Laterality Date APPENDECTOMY HYSTERECTOMY HX partial- done in [place] LAMINECTOMY W/O FFD 07/12 VERT SEG LUMBAR [...] and questions were answered (more content not included)...[facility]12-11-2023 Hospital Discharge instructions Patient Education 06/20/2023 [...] some information about medicine: You may use fpyb-twe-ycieiku medicine such as acetaminophen or ibuprofen to [...] re-open Bleeding not controlled by direct pressure [phone] [employer] [place] [address]. All rights reserved. This information is not intended as a substitute for professional medical care. Always follow yourhealthcare professional's instructions. Follow Up Care 06/20/2023 13:22:32 With:DIONNE MAGAÑA MD Address: [address] [place] [address]- When:2-4 days [facility] 12-11-2023 Note Discharge Instructions Thank you for allowing [facility] to assist you with your healthcare needs. [...] Within 2-4 days Where: [facility] [address] [place] [address]- Allergies NKA Medications Please ask your primary [...] some information about medicine: You may use stnl-cje-mrvcaaa medicine such as acetaminophen or ibuprofen to [...] re-open Bleeding not controlled by direct pressure [phone] [employer]. [address] [place] [address], [place] [address]. All rights reserved. This information is not intended as a substitute for professional medical care. Always follow yourhealthcare professional's instructions. Additional Information VACCINATE! IT SAVES LIVES! Members of the community who have not yet received the COVID-19 vaccine and would like to receive it can visit one of [facility] vaccine clinics. There are many vaccine clinic locations within the [facility]. For locations and available times, please visit [email or web address]/. It is important to note that some COVID mobile vaccine clinics are held outdoors and may be canceled in rainy or stormy conditions. To learn more about pediatric vaccinations (ages 5-11), we invite you to visit the [facility] webpage. https://www.[email or web address]/pages/3728-Pwwby-Opvmhzpebwo-Lbugybgbmi-Hsrpk-Jeh stions.htmlTo learn more about the COVID-19 vaccine, we invite you to visit the CDC website for a list of frequently asked questions. https://www.cdc.gov/coronavirus/2019-ncov/vaccines/faq.html [facility] Patient Portal Access Instructions: Stay connected with your healthcare team and access your personal medical information anytime with the [facility] Patient Portal. If you would like a full copy of your medical records please contact the [facility] Medical Records Department Tuesday through Tuesday between 8a.m. and 4:30p.m. Please follow the directions below to access the portal: 1.Access the email account you provided upon registration to the [facility].2.Look for an invitation email from [facility].3.Open the email and access the invitation link: Accept Invitation to [facility]4.Fill in the required holt to create your account. Sign into www.Salesforce with your username and password that you [...] you will allow to register on the [facility] Patient Portal for access to your information. You can also access the [facility] Patient Portal on the [employer]is. Simply click on Health Records under Viewbix and then click on the Narayan logo. [...] Call your local pharmacy or go to [email or web address] to find one close to you.3.Make use of household items: Use cat litter or old coffee grounds to dispose medications if other options arenot available. Mix your drugs with these household products, seal them in an airtight container andthrow it into the garbage. Call [facility]: [phone] to be sure your drugs can be [...] am aware that I should contactmy doctor. Patient/Oil Well Logger Signature: Date/Time: Relationship to Patient: Witness Name/Signature: Date/Time: [facility]12-07-2023 Miscellaneous Notes* Telephone Encounter - Sarah Bradford [...] PCP. Giovana Patterson CNP [facility] Miscellaneous Notes* Telephone Encounter - Maylin Martinez [...] AM EST ----- Message from Giovana Patterson APRN.POND WORKER sent at 06/14/2023 7:14 AM EST ----- Please advise patient the COVID and flu test was negative. documented [facility]12-[facility]23 Miscellaneous Notes* Addendum Note - Alex Law MD - 06/13/2023 7:05 PM ESTAddended by: ALEX LAW on: 06/13/2023 07:05 PM Modules accepted: Orders documented in this [facility]Mi[facility]12-[facility]-2023 NoteHNO ID: [id number] Author: Ai Moura APRN.POND WORKER Service: ? Author Type: Nurse Practitioner Type: [...] Date APPENDECTOMY HYSTERECTOMY HX partial- done in [place] LAMINECTOMY W/O FFD 07/12 VERT SEG LUMBAR [...] No rash. Neurological: Ment (more content not included)...[facility]12-04-20[facility] History of Present illness Narrative* Ai Moura APRN.POND WORKER - 06/13/2023 5:18 PM EST Subjective HPI [...] Date APPENDECTOMY HYSTERECTOMY HX partial- done in [place] LAMINECTOMY W/O FFD 07/12 VERT SEG LUMBAR [...] & INFLUENZA A/B NAAT, ROUTINE Ai Moura APRN.POND WORKER documented in this encounter[facility]08-08-2023 NoteHNO ID: [id number] Author: Mali Ramirez APRN.SATISH Service: ? Author [...] by the patient and a relative. No director targeted marketing was used. Animal Bite The incident occurred [...] Date APPENDECTOMY HYSTERECTOMY HX partial- done in [place] LAMINECTOMY W/O FFD 07/12 VERT SEG LUMBAR [...] for tingling, focal weakness, (more content not included)...[facility] History of Present illness Narrative* Mali Ramirez APRN.[facility] - 02/15/2023 1:26 PM EDT This note [...] by the patient and a relative. No director targeted marketing was used. Animal Bite The incident occurred [...] Date APPENDECTOMY HYSTERECTOMY HX partial- done in [place] LAMINECTOMY W/O FFD 07/12 VERT SEG LUMBAR [...] [facility], ROLDAN Ramirez APRN.POND WORKER documented in this [facility]07-31-2023 History of Present illness Narrative* [...] 07, 2023 4:01 PM documented in this encounterMi[facility]07-31-2023 NoteHNO ID: [id number] Author: Ashley Granados RT(R) Service: Radiology Author [...] BY: RT Jacqueline(R) February 07, 2023 4:01 [facility]07-31-2023 NoteHNO ID: [id number] Author: J Luis Sanches APRN.[facility] Service: ? Author Type: Nurse Practitioner Type: [...] history is provided by the patient. No director targeted marketing was used. Pain (foot) Review of Systems [...] Date APPENDECTOMY HYSTERECTOMY HX partial- done in [place] LAMINECTOMY W/O FFD 07/12 VERT SEG LUMBAR [...] noted. IMPRESSION IMPRESSION: No acute osseous abnormality System Engineer: PAZ Transcribe Date/Time: Feb 07 2023 4:09P [...] with this care plan. J Luis Sanches APRN.[facility] History of Present illness Narrative* J [...] history is provided by the patient. No director targeted marketing was used. Pain (foot) Review of Systems [...] Date APPENDECTOMY HYSTERECTOMY HX partial- done in [place] LAMINECTOMY W/O FFD 07/12 VERT SEG LUMBAR [...] noted. IMPRESSION IMPRESSION: No acute osseous abnormality System Engineer: PAZ Transcribe Date/Time: Feb 07 2023 4:09P [...] J Luis Sanches APRN.CNP documented in this encounterMi[facility]07-27-2023 Miscellaneous Notes* Telephone Encounter - Manuel Wise [...] her know the above. documented in this encounterMi[facility]07-24-2023 NoteHNO ID: [id number] Author: Alex Law MD Service: ? Author [...] swelling, purulent drainage, or fever/malaise. Alex Law, [facility]12-30-2022 Hospital Discharge instructions Patient Education 07/09/2022 13:02:52 [...] by your health care provider. Medicine Take pmcf-xsp-jsgwqgj and prescription medicines only as told by [...] and water are not available, use hand mail clerk. ?Change your dressing as told by your [...] 01/14/2006 Document Revised: 10/19/2019 Document Reviewed: 04/11/2017 [employer] Patient Education 2020 [employer] 07/07/2022 08:32:43 5 - [facility] Post-op Instruction 02/2017 (20849) [facility] Post-operative Instructions PLEASE FOLLOW [facility] POST-OP INSTRUCTIONS GIVEN WATCH FOR SIGNS OF INFECTION: call the office ([phone]) if experencing any of the following: (Usually [...] on your follow up instructions. Form: 338A (19186) R: 11/14 Follow Up Care 05/21/2022 09:31:51 With:Eulalia Bridges PT Address: When:07/20/2022 14:00:00 Comments:Follow-up as scheduled With:TANNER HAHN PA-C, Orthopedic Address: [facility] [place] [address]- When:07/16/2022 Comments:Follow-up as scheduled [facility] 12-30-2022 Note Discharge Instructions Thank you for allowing [facility] to assist you with your healthcare needs. [...] Follow-up as scheduled Where: [facility] [place] [place] [address]- The Following Activity and Diet Have Been [...] 12 hours Duration: 5 Days Pickup at [facility] Unchanged acetaminophen (acetaminophen 500 mg oral tablet) 2 tab(s) by mouth Three (3) times a day as needed for as needed for pain not to exceed 3000 mg/ day Pickup at [facility] Unchanged albuterol (Albuterol (Eqv-ProAir HFA) [...] weeks postoperatively for DVT prophylaxis. Pickup at [facility] Unchanged baclofen (baclofen 20 mg [...] bowel movement, then as needed Pickup at [facility] Unchanged famotidine (famotidine 40 mg [...] anti-inflammatories while on meloxicam/ Mobic Pickup at [facility] Unchanged metFORMIN (metFORMIN 500 mg [...] shoulder 1-2 tab(s) Oral q4h Pickup at [facility] Unchanged pantoprazole (pantoprazole 40 mg [...] by mouth Once a day Pharmacy Information [facility]: [address] [place], [place] [id number] [phone] What When Comments Stop Taking acetaminophen-hydrocodone (acetaminophen- [...] may report side effects to FDA at 9-569-MXC-5242. What other drugs will affect docusate and senna? Other drugs may affect docusate and senna, including prescription and suyk-vsm-rtxvuzx medicines, vitamins, and herbal products. Tell your [...] to ensure that the information provided by [employer]. ('Multum') is accurate, up-to-date, and complete, but no guarantee is made to that effect. Drug information contained herein may be time sensitive. [employer] information has been compiled for use by healthcare practitioners and consumers in the [place] and therefore [employer] does not warrant that uses outside of the [place] are appropriate, unless specifically indicated otherwise. [employer] drug information does not endorse drugs, diagnose patients or recommend therapy. [employer] drug information isan informational resource designed to [...] effective or appropriate for any given patient. [employer] does not assume any responsibility for any aspect of healthcare administered with the aid of information [employer] provides. The information contained herein is not intended to cover all possible uses, directions, precautions, warnings, drug interactions, allergic reactions, or adverse effects. If you have questions about the drugs you are taking, check with your doctor, nurse or pharmacist. Copyright 2981-3745 [employer]. Version: 3.02. Revision Date: 09/24/2020. aspirin (oral) ( pir in) Arthritis Pain, Aspi-Cor, Aspir-Low, Nancy Plus, Durlaza, Ecotrin, Miniprin, Vazalore What is the most important information I should know about aspirin? Aspirin can cause Zahida's syndrome, a serious and sometimes fatal condition in children. What is aspirin? Aspirin is a salicylate (sj-LIP-is-ate) that is used to treat pain, and [...] may report side effects to FDA at 8-435-ENY-1091. What other drugs will affect aspirin? Ask [...] drugs may affect aspirin, including prescription and ptry-vyz-yxrgxpe medicines, vitamins, and herbal products. Not all [...] to ensure that the information provided by [employer]. ('Multum') is accurate, up-to-date, and complete, but no guarantee is made to that effect. Drug information contained herein may be time sensitive. [employer] information has been compiled for use by healthcare practitioners and consumers in the [place] and therefore [employer] does not warrant that uses outside of the [place] are appropriate, unless specifically indicated otherwise. [employer] drug information does not endorse drugs, diagnose patients or recommend therapy. [employer] drug information isan informational resource designed to [...] effective or appropriate for any given patient. [facility] does not assume any responsibility for any aspect of healthcare administered with the aid of information [facility] provides. The information contained herein is not intended to cover all possible uses, directions, precautions, warnings, drug interactions, allergic reactions, or adverse effects. If you have questions about the drugs you are taking, check with your doctor, nurse or pharmacist. Copyright 2666-6225 [facility] [employer]op StrengthGigturn. Version: 16.03. Revision Date: 01/05/2021. meloxicam (oral/injection) [...] may report side effects to FDA at 5-747-NZM-1087. What other drugs will affect meloxicam? Ask [...] drugs may affect meloxicam, including prescription and vyqv-pbc-vdusigx medicines, vitamins, and herbal products. Not all [...] to ensure that the information provided by [employer]. ('Multum') is accurate, up-to-date, and complete, but no guarantee is made to that effect. Drug information contained herein may be time sensitive. [employer] information has been compiled for use by healthcare practitioners and consumers in the [place] and therefore [employer] does not warrant that uses outside of the [place] are appropriate, unless specifically indicated otherwise. [employer] drug information does not endorse drugs, diagnose patients or recommend therapy. [employer] drug information isan informational resource designed to [...] effective or appropriate for any given patient. [employer] does not assume any responsibility for any aspect of healthcare administered with the aid of information [employer] provides. The information contained herein is not intended to cover all possible uses, directions, precautions, warnings, drug interactions, allergic reactions, or adverse effects. If you have questions about the drugs you are taking, check with your doctor, nurse or pharmacist. Copyright 1147-5517 [employer]. Version: 14.. Revision Date: 05/13/2020. acetaminophen (oral) (a SEET a MIN oh fen) Actamin, Anacin AF, Aurophen, Bromo Colora, Children's Tylenol, Mapap, M-Pap, Pharbetol, Silapap Childrens, [...] may report side effects to FDA at 5-384-DYG-2684. What other drugs will affect acetaminophen? Other drugs may affect acetaminophen, including prescription and uzug-xdz-rwuayub medicines, vitamins, and herbal products. Tell your [...] to ensure that the information provided by [employer]. ('[employer]') is accurate, up-to-date, and complete, but no guarantee is made to that effect. Drug information contained herein may be time sensitive. [employer] information has been compiled for use by healthcare practitioners and consumers in the [place] and therefore [employer] does not warrant that uses outside of the [place] are appropriate, unless specifically indicated otherwise. [employer] drug information does not endorse drugs, diagnose patients or recommend therapy. [employer] drug information isan informational resource designed to [...] effective or appropriate for any given patient. [employer] does not assume any responsibility for any aspect of healthcare administered with the aid of information [employer] provides. The information contained herein is not intended to cover all possible uses, directions, precautions, warnings, drug interactions, allergic reactions, or adverse effects. If you have questions about the drugs you are taking, check with your doctor, nurse or pharmacist. Copyright 1137-0899 [employer]. Version: 22.. Revision Date: 08/28/2021. oxycodone (ox [...] The extended-release form of oxycodone is for gwtyqy-rrs-dzecp treatment of pain and should not be [...] against the law. Stop taking all other fqjgrc-nlw-xisyt opioid pain medicines when you start taking [...] could occur. < (more content not included)... [facility]12-29-2022 Note Date of Service 07/08/2022 Chief Complaint [...] by KUNAL REESE on 07/08/2022 04:05 PM [facility]12-29-2022 Note Date of Service July 08, 2022 [...] detail patient is not to take the [place] 7.5/325 mg while at home for the [...] physical therapy after the 2-week follow-up at [facility] [place]. 5. H & H: 11.7/35.9, asymptomatic. Postoperative [...] physical therapy established. I have reviewed the [place] Automated Rx Reporting System (OARRS) report for [...] TANNER HAHN PA-C on 07/08/2022 02:19 PM [facility]12-29-2022 Note ORIGINAL EXAMINATION: ONE XRAY VIEW OF [...] Sign Date: 07/08/2022 12:36:07 AM Ordering Provider: [facility]12-29-2022 Note ORIGINAL EXAMINATION: ONE XRAY VIEW [...] Sign Date: 07/08/2022 12:36:07 AM Ordering Provider: [facility]12-28-2022 Nurse Progress note Patient checked on and found difficult to arouse. Did not respond to loud voice and shaking. Sternal rub performed with wincing noted. Bri Quintana RN notified and Low Vasquez CNP notified also. Stronger sternal rub performed per Low Vasquez CNP and pt woke and was speaking and responding to questionsappropriately. V/S done, O2 applied and monitor car operator also applied. Digitally Signed by GORDON Evans on 07/07/2022 06:18 PM [facility]12-28-2022 Note ORIGINAL EXAMINATION: TWO XRAY VIEWS OF THE RIGHT DIAKTNSA41/28/2022 2:30 pm COMPARISON: July 06, 2022 radiograph [...] 07/07/2022 2:50:22 PM Ordering Provider: SHANE VASQUEZ [facility]12-28-2022 Nurse Progress note At approximately 1340, visitors [...] by GORDON Evans on 07/07/2022 02:49 PM [facility]12-28-2022 Note ORIGINAL HISTORY: Fall, confusion, dizzy COMPARISON: [...] Sign Date: 07/07/2022 2:27:06 PM Ordering Provider: [facility]12-28-2022 Note ORIGINAL EXAMINATION: TWO XRAY VIEWS OF THE RIGHT QUYFTSBE02/28/2022 2:30 pm COMPARISON: July 06, 2022 radiograph [...] Sign Date: 07/07/2022 2:50:22 PM Ordering Provider: [facility]12-28-2022 Note ORIGINAL HISTORY: Fall, confusion, dizzy COMPARISON: [...] Date: 07/07/2022 2:27:06 PM Ordering Provider: [facility]12-28-2022 Note Date of Service July 07, [...] detail patient is not to take the [place] 7.5/325 mg while at home for the [...] physical therapy after the 2-week follow-up at [facility] [place]. 5. H & H: 11.8/36.1, asymptomatic. Postoperative [...] would like her prescriptions E scribed to [facility]. I again discussed with the patientin great detail postoperative course of treatment as well as the narcotics. She will not take the [place] while we are managing her postoperative pain control. After 6 weeks she will go back with her primary pain management physician. Patient has outpatient physical therapy established. She will follow-up per postop instructions. She will contact her office upon discharge with any concerns or questions. I have reviewed the [place] Automated Rx Reporting System (OARRS) report for [...] TANNER HAHN PA-C on 07/07/2022 08:32 AM [facility]12-27-2022 Note ORIGINAL HISTORY: Postop COMPARISON: No FINDINGS: [...] 07/06/2022 2:01:20 PM Ordering Provider: MIKEY OROPEZA [facility]12-27-2022 Note ORIGINAL HISTORY: Postop COMPARISON: No FINDINGS: [...] Sign Date: 07/06/2022 2:01:20 PM Ordering Provider: [facility]12-27-2022 Anesthesiology Consult note Patient: JERRELL STRICKLAND [...] list: Medical Abdominal pain / SNOMED CT 16819931 / Confirmed Asthma / SNOMED CT 362855607 / Confirmed Diverticulosis / SNOMED CT 8019368229 / Confirmed Hiatal hernia / SNOMED CT 635318220 / Confirmed Hypertension / SNOMED CT 3644009405 / Confirmed Hypothyroidism / SNOMED CT 95805276 / Confirmed Fatty liver / SNOMED CT 758157618 / Confirmed Vagal bradycardia / SNOMED CT 13166092 / Confirmed, Active Problems (9) Abdominal pain Asthma Diverticulosis Fatty liver GERD (gastroesophageal reflux disease) Hiatal hernia Hypertension Hypothyroidism Vagal bradycardia Histories Past Medical History: No active or resolved past medical history items have been selected or recorded. Family History: CAD - Coronary artery disease Mother Father Procedure history: Carpal tunnel release (204895276). Repair of shoulder (216130102). Comments: 04/25/2017 7:53 EDGARDO ANGELA RN ELLEN arthroscopy LEFT History of tonsillectomy (3514641558). Abdominal hysterectomy (684797174). Appendectomy (391489244). Spinal cord stimulation (400559920). Total hip replacement (929865808). Comments: 06/22/2022 13:44 Suzette Lewis RN right Total shoulder replacement (13794790). Comments: 06/22/2022 13:45 Suzette Lewis RN left [...] Height 162.6 cm Admission Weight 164 kg Reed Body Weight 54.74 kg Pain assessment: Pain [...] Height 162.6 cm Admission Weight 164 kg Reed Body Weight 54.74 kg Temperature Temporal Artery [...] no difficulties Skin Temperature Warm Skin Description [place], Normal for ethnicity, Dry Skin Integrity Intact [...] Cooperative Orientation Oriented x 4 Allergies Yes Tobacco Roller On Yes Consent Form Signed Yes Patient [...] no symptoms Safety Brochure Information Reviewed Yes [facility] Video Viewed No Teaching Evaluation Returns demonstrations correctly Admission Note-Nursing Same Day Patient History (Modified) 07/06/2022 9:04 EST SN - Preop - CTm Pt in SDS Room 07/06/2022 9:04 . Assessment and Plan [place] [employer] Anesthesiologists (ASA) physical status classification: Class III. Anesthetic Preoperative Plan Anesthetic technique: General. Maintenance airway: Oral endotracheal tube. Postoperative pain management: interscalene block. Risks discussed: nausea, vomiting, sore throat, hypotension, allergic reaction, serious complications. Informed consent: signed by patient. 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[place] Appetite loss acute Asthma acute Debility acute Diabetes mellitus acute Hyperlipidemia acute Hypokalemia acute Hypothyroidism acute Osteoarthritis acute Hypertension chronic Fecal impaction of colon res olved Orthostatic hypotension reso lved Osteoarthritis of left shoulder resolved Abdominal pain acute Acute hyponatremia acute Diabetes mellitus acute Hyperlipidemia acute Vomiting and diarrhea acute Hypertension chronic [facility] Work Phone: Evaluation note* Diagnosis Onset Date [...] hyponatremia acute YASMANY (acute kidney injury) ac [place] Bradycardia acute Oral thrush acute [facility] Work Phone: Evaluation note* Diagnosis Onset Date Resolution Status Essential hypertension acute [facility] Work Phone: Evaluation noteNo assessment information available [facility] Work Phone: Evaluation note* Diagnosis Onset Date Resolution Status Acquired hypothyroidism acut e Essential hypertension acute Screening for colon cancer n oneactive Chronic back pain greater than 3 months duration noneactive Establishing care with new doctor, encounter for noneactive Chronic insomnia noneactive Moderate persistent asthma i n adult without complication noneactive Controlled type 2 diabetes mellitus noneactive [facility] Work Phone: Evaluation note* Diagnosis Pain- Primary Generalized [facility]* Diagnosis Puncture wound of multiple sites of left upper extremity, initial encounter- Primary [facility]* Diagnosis Onset Date Resolution Status Acquired hypothyroidism acut e Essential hypertension acute Colon cancer screening declined noneactive Chronic back pain greater than 3 months duration noneactive Immunization due noneactive Chronic insomnia noneactive Moderate persistent asthma i n adult without complication noneactive Controlled type 2 diabetes mellitus noneactive Tingling of both feet noneac tive Lightheadedness noneactive [facility] Work Phone: Evaluation note* Diagnosis FUO (fever of unknown origin)- Primary Fever, unspecified Viral syndrome Unspecified viral infection, in conditions classified elsewhere and of unspecified site [facility] Diagnosis Onset Date Resolution Status Acquired hypothyroidism acut e Essential hypertension acute Colon cancer screening declined noneactive Chronic back pain greater than 3 months duration noneactive Immunization due noneactive Chronic insomnia noneactive Moderate persistent asthma i n adult without complication noneactive Controlled type 2 diabetes mellitus noneactive Tingling of both feet noneac tive Lightheadedness noneactive Nausea acute [facility] Work Phone: Evaluation note* Diagnosis Onset Date [...] acute Laceration of right lower leg acute [facility] Work Phone: Evaluation note* Diagnosis Onset Date [...] leg acute Acute nasopharyngitis (common cold) acute [facility] Work Phone: Evaluation note* Diagnosis Onset Date [...] wound, left acute Leg wound, right acute [facility] Work Phone: Evaluation note* Diagnosis Onset Date [...] acute Leg wound, right acute Onychomycosis acute [facility] Work Phone: Evaluation note* Diagnosis Onset Date [...] Driving safety issue noneact janki [facility]* Diagnosis Driving safety issue- Primary Other specified personal history presenting hazards to health Syncope and collapse Cognitive deficits Unspecified persistent mental disorders due to conditions classified elsewhere [facility]* Diagnosis Onset Date Resolution Status Leg wound, left resolved Leg wound, right resolved Nail fungus acute Cough resolved Leg wound, left resolved Leg wound, right resolved Onychomycosis acute Leg wound, left resolved Leg wound, right resolved Acquired hypothyroidism acut e Driving safety issue noneact janki [facility]* Diagnosis Syncope and collapse- Primary Cognitive deficits Unspecified persistent mental disorders due to conditions classified elsewhere Driving safety issue Other specified personal history presenting hazards to health documented in this encounter [facility] note* Diagnosis Acute gout involving toe of right foot, unspecified cause- Primary documented in this encounter [facility] note* Diagnosis Pain Generalized pain [facility] Narrative No data available for this section [facility] Hospital Discharge instructions No data available for this section [facility] Hospital Discharge instructionsAmbulatory Orders* Cardiology Location: None [facility] Work Phone: Progress note No data available for this section [facility] Reason for referral (narrative)* Diagnostic Procedure Only (Urgent) - Closed Specialty Diagnoses / Procedures Referred By Darren t Referred To Contact XR IMAGING Diagnoses Pain Procedures XR FOOT GENERAL 3V AP/LAT/OBL LEFT RADEX FOOT COMPLETE MINIMUM 3 VIEWS J Luis Sanches APRN.POND WORKER [address] [place] [address] Xr Imaging Referral ID Status Reason Start Date Expiration Date V isits Requested Visits Authorized [id number] Closed Auto-Generate d Referral 02/07/2023 03/08/2024 1 1 [facility] for referral (narrative)* Diagnostic Procedure Only (Urgent) - Closed Specialty Diagnoses / Procedures Referred By Contac t Referred To Contact XR IMAGING Diagnoses Pain Procedures XR FOOT GENERAL 3V AP/LAT/OBL LEFT RADEX FOOT COMPLETE MINIMUM 3 VIEWS J Luis Sanches APRN.POND WORKER [address] [place] [address] [place] [address] Referral ID Status Reason Start Date Expiration Date V isits Requested Visits Authorized [id number] Closed Auto-Generate d Referral 02/07/2023 03/08/2024 1 1 [facility] for referral (narrative)No reason for referral [facility] Work [facility]: reason for visit Narrative* Diagnostic Procedure Only (Urgent) - Closed Specialty Diagnoses / Procedures Referred By Contac t Referred To Contact XR IMAGING Diagnoses Pain Procedures XR FOOT GENERAL 3V AP/LAT/OBL LEFT RADEX FOOT COMPLETE MINIMUM 3 VIEWS J Luis Sanches APRN.POND WORKER [address] [place] [address] [place] [address] Referral ID Status Reason Start Date Expiration Date V isits Requested Visits Authorized [id number] Closed Auto-Generate d Referral 02/07/2023 03/08/2024 1 1 [facility] Summary Purpose Family History No Family History [...] Date/ Time Name of Medical Power of Strike Out Machine Operator Gabrielle [place] July 29, 2021 3:59pm Name of Medical Power of Strike Out Machine Operator [facility] August 03, 2021 12:24pm Advance Directives Yes May 2:15pm Living Will Yes August 07 1:15am Power of Strike Out Machine Operator Yes August 07, 2021 1:15am Advance Directive Response Recorded Date/ Time Name of Medical Power of Strike Out Machine Operator [facility] August 03, 2021 12:24pm Name of Medical Power of Strike Out Machine Operator [facility] August 07, 2021 1:15am Advance Directives Yes May 2:15pm Living Will Yes November 29, 2021 1 0:11pm Power of Strike Out Machine Operator Yes November 29, 2021 10:11pm Advance Directive Response Recorded Date/ Time Advance Directives Yes May 1:15pm Living Will Yes November 29, 2021 9 :11pm Power of Strike Out Machine Operator Yes November 29, 2021 9:11pm Advance Directive Response Recorded Date/ Time Advance Directives Yes May 2:15pm Living Will Yes November 29, 2021 1 0:11pm Power of Strike Out Machine Operator Yes November 29, 2021 10:11pm Documents on File Type Date Recorded 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 No March 19, 2024 10:02am Advance Directives [...] section and content) DATE CREATED AUTHOR 12/25/2017 [facility] DATE CREATED AUTHOR AUTHOR'S ORGANIZ ATION 12/25/2017 [facility] DATE CREATED AUTHOR AUTHOR'S ORGANIZ ATION 10/10/2023 [facility] ([place]) DATE CREATED AUTHOR AUTHOR'S ORGANIZ ATION 01/01/2024 [facility] DATE CREATED AUTHOR AUTHOR'S ORGANIZ ATION 03/31/2024 [facility] nter DATE CREATED AUTHOR AUTHOR'S ORGANIZ ATION 05/20/2025 [facility] Goals (unrecognized section and content) Goals [...] Member Role: Primary Care Physician Address: Address: [address] [place] [address] [place] [address] [place] [address] Care Team Related Persons Name: [place] Care Team Personnel Name: OSCAR ADHIKARI MD Member Role: Primary Care Physician Address: Address: [address] [place] [address] [place], [place] [address] Care Team Related Persons Name: [place] Care Teams (unrecognized sec tion and content) [...] Primary Care Provider, Attendi ng Provider Active Rehab Services Aide Relationship Specialty Start Date End Date Dionne Magaña MD [address] [place] [address] PCP - General Internal Medicine 01/31/23 Rehab Services Aide Relationship Specialty Start Date End Date Dionne Magaña MD [address] [place] [address] PCP - General Internal Medicine 01/31/23 Rehab Services Aide Relationship Specialty Start Date End Date Dionne Magaña MD [address] [place] [address] PCP - General Internal Medicine 01/31/23 Team Status: Inactive Member Role Status Dates Dr. Dionne Magaña MD Primary Care Provider Active Dr. Harshad Camacho MD Attending Provider, Referring Pr ovider Active Team Status: Inactive Member Role Status Dates Dr. Dionne Magaña MD Primary Care Provider Active Tanner DOW PA-C Attending Provider, Referring Pr ovider Active Rehab Services Aide Relationship Specialty Start Date End Date Dionne Magaña MD [address] [place], [place] [address] [phone] PCP - General Internal Medicine 01/31/23 Rehab Services Aide Relationship Specialty Start Date End Date Dionne Magaña MD [address] [place], [place] [phone] PCP - General Internal Medicine 01/31/23 Team [...] Lester Attending Provider, Referring Pro vider Active Rehab Services Aide Relationship Specialty Start Date End Date Dionne Magaña MD [address] [place], [place] [phone] PCP - General Internal Medicine 01/31/23 Rehab Services Aide Relationship Specialty Start Date End Date Dionne Magaña MD [address] [place] [address] PCP - General Internal Medicine 01/31/23 Rehab Services Aide Relationship Specialty Start Date End Date Dionne Magaña MD [address] [place] [address] PCP - General Internal Medicine 01/31/23 Team [...] 2024 End: September 30, 2024 Andrew Chang PATIENT SERVICES CLERK, PATIENT SERVICES CLERK-C Attending Provider Active S tart: September 30, [...] 2024 End: September 30, 2024 Andrew Chang PATIENT SERVICES CLERK, PATIENT SERVICES CLERK-C Attending Provider Active S tart: September 30, 2024 End: September 30, 2024 Team Status: Inactive Member Role/Relationship Status Dates Dr. Dionne Magaña MD Primary Care Provider Active Start: October 16, 2024 End: October 16, 2024 Dr. Dionne Magaña MD Referring Provider Active Start: October 16, 2024 End: October 16, 2024 VICTRO M Sherman Attending Provider Active Start: October [...] December 21, 2024 End: December 21, 2024 IVCTOR M Kilgore Attending Provider Active St art: [...] 2024 End: September 30, 2024 Andrew Chang PATIENT SERVICES CLERK, PATIENT SERVICES CLERK-C Attending Provider Active S tart: September 30, [...] aMgaña MD Primary Care Provider Active Start: January [...] or prosecute any alcohol or drug abuse patient.[facility] the event this information is protected by the Federal Confidentiality of Alcohol and Drug Abuse Patient Records regulations: The Federal rules restrict any use of the information to criminally investigate or prosecute any alcohol or drug abuse patient.[facility] HospitalIn the event this information is protected by the Federal Confidentiality of Alcohol and Drug Abuse Patient Records regulations: The Federal rules restrict any use of the information to criminally investigate or prosecute any alcohol or drug abuse patient.[facility] Hospital[facility] the event this information is protected by the Federal Confidentiality of Alcohol and Drug Abuse Patient Records regulations: The Federal rules restrict any use of the information to criminally investigate or prosecute any alcohol or drug abuse patient.[facility] HospitalIn the event this information is protected by the Federal Confidentiality of Alcohol and Drug Abuse Patient Records regulations: The Federal rules restrict any use of the information to criminally investigate or prosecute any alcohol or drug abuse patient.[facility] HospitalIn the event this information is protected by the Federal Confidentiality of Alcohol and Drug Abuse Patient Records regulations: The Federal rules restrict any use of the information to criminally investigate or prosecute any alcohol or drug abuse patient.[facility] HospitalIn the event this information is protected by the Federal Confidentiality of Alcohol and Drug Abuse Patient Records regulations: The Federal rules restrict any use of the information to criminally investigate or prosecute any alcohol or drug abuse patient.[facility] HospitalIn the event this information is protected by the Federal Confidentiality of Alcohol and Drug Abuse Patient Records regulations: The Federal rules restrict any use of the information to criminally investigate or prosecute any alcohol or drug abuse patient.[facility] HospitalIn the event this information is protected by the Federal Confidentiality of Alcohol and Drug Abuse Patient Records regulations: The Federal rules restrict any use of the information to criminally investigate or prosecute any alcohol or drug abuse patient.[facility] HospitalIn the event this information is protected by the Federal Confidentiality of Alcohol and Drug Abuse Patient Records regulations: The Federal rules restrict any use of the information to criminally investigate or prosecute any alcohol or drug abuse patient.[facility] HospitalIn the event this information is protected by the Federal Confidentiality of Alcohol and Drug Abuse Patient Records regulations: The Federal rules restrict any use of the information to criminally investigate or prosecute any alcohol or drug abuse patient.[facility] Reason for Visit (unrecogniz ed section and [...] RS OT COMM REINTEGRATION Dionne Magaña MD [address] [place] [address] Hermelinda Baker OT/L Referral ID Status Reason Start Date Expiration Date V isits Requested Visits Authorized [id number] Authorized 07/11/2023 07/10/2024 99 99 Reason Comments [...] Procedures Self pay driving Dionne Magaña MD [address] [address] [address] Referral ID Status Reason Start Date Expiration Date Visits Requested Visits Authorized [id number] Authorized Financial Clearance Required - Self Pay [...] BE BASED ON THE PRIMARY CLINICAL RECORDS. [facility] [facility]. provides no warranty or guarantee of the accuracy or completeness of information in this document.
--- NOTE | 2025-07-10 18:45 | NURSING ---
Report called to nurse Lewis for pt to be trasferred to .
[2025-07-10 18:49] VITALS: PULSE 64; RESP 16; O2SAT 98
[2025-07-10] MEDS: Budesonide Respules 0.5 MG/2 ML AMPUL.NEB. INHALATION (18:49)
[2025-07-10] MEDS: Albuterol 2.5 MG/3 ML VIAL.NEB. INHALATION (18:49)
--- NOTE | 2025-07-15 09:45 | CL.D_ITS ---
Patient Name: JERRELL BAUMAN Study Date: 07/10/2025 Performing: Vanna Kinney MD Ht: 64 inches 162.56 cm : 1945 Wt: 144.01 lbs 65.32 kg Age: 79 Gender: female BSA: 1.7 PROCEDURE(S) PERFORMED DC02-([id number])[facility] CLINICAL PROFILE AND INDICATIONS Indications: Suspected CAD Heart Failure: None Stress/Imaging Stress Test w/SPECT MPI: Yes Result: Positive Intermediate RiskStress Test with SPECT MPI: Positive Intermediate Risk CAD Presentations: No Sxs, no angina. CONCLUSIONS 50-60% eccentric distal LMCA 95% heavily calcified Mid LAD 50% prox OM1; 70% AV Groove LCX 50-60% Prox, 70% distal RCA RECOMMENDATIONS Transfer to tertiary [facility] for heart team approach DESCRIPTION OF PROCEDURE The patient arrived to the procedure lab. The risks and benefits of the procedure as well as a full description of our services here and current unavailability of surgical backup were fully explained to the patient and/or their significant other prior to the catheterization. The Timeout was completed, verifying the correct patient and procedure. The patient's procedural site was prepped and draped in the usual fashion. Local anesthetic was given subcutaneously to right radial region with Lidocaine 2%. Using a modified Seldinger technique, arterial access was obtained via the right radial artery, a 6Fr sheath was inserted. Left Coronary Artery selective angiography was performed in multiple views using a 5 Fr. 4.0 Boody catheter. Right Coronary Artery selective angiography was then performed in multiple views using a 5 Fr. 4.0 Boody catheter.The arterial sheath was pulled and a TR Band was applied for hemostasis 10 ml of air CORONARY ANGIOGRAPHY DOMINANCE: Right Dominant LEFT MAIN: Tubular 50% Distal lesion in Left Main LEFT ANTERIOR DESCENDING ARTERY: LAD: Calcified 70% Mid lesion in LAD Calcified 95% Mid lesion in LAD OM 1: Calcified 60% Proximal lesion in MARG1 OM 2: Calcified 60% Proximal lesion in MARG1 RIGHT CORONARY ARTERY: RCA: Calcified 65% Proximal lesion in RCA Calcified 70% Distal lesion in RCA COMPLICATIONS No Complications PROCEDURE MEDICATIONS Fentanyl 50 mcg IV Versed 1 mg IV Oxygen: 2 L/min via nasal cannula Heparin given IA 07/10/2025 09:26:33 Nitro Tab 0.4 mg PO 07/10/2025 09:15:10 Nitro Tab 0.4 mg PO 07/10/2025 09:15:10 Verapamil 2.5mg, Ntg 200mcgs, 2000 units of Heparin given IA 07/10/2025 09:26:33 IV Bolus: .9 NaCl 200 ml total 07/10/2025 09:40:10 IV Fluids: .9 NaCl increased to 500 ml/hr 07/10/2025 09:31:29 IV Fluids: .9 NaCl decreased to 25 ml/hr 07/10/2025 09:40:29 SUMMARY OF HEMODYNAMIC DATA Time AIR REST ECG 08:48:15 AO 90/41 (57) SA 09:30:26 AO 89/41 (57) 09:30:46 ECG 09:43:17 Signed By Vanna Kinney MD On 07/13/2025 3:25:31 PM Vanna Kinney MD
== END 2025-07-10 21:15 | disposition short-term general hospital (02) ==
PROVIDERS: Nurse Practitioner Family; Admitting Provider Internal Medicine Cardiovascular Disease; PCP Internal Medicine; Referring Provider Internal Medicine Cardiovascular Disease; Visit Provider Internal Medicine Cardiovascular Disease
DX: I25.10 Atherosclerotic heart disease of native coronary artery without angina pectoris (principal); R94.39 Abnormal result of other cardiovascular function study; I10 Essential (primary) hypertension; E78.5 Hyperlipidemia, unspecified; I65.23 Occlusion and stenosis of bilateral carotid arteries; M19.90 Unspecified osteoarthritis, unspecified site; K21.9 Gastro-esophageal reflux disease without esophagitis; Z79.82 Long term (current) use of aspirin; Z79.899 Other long term (current) drug therapy; Z79.890 Hormone replacement therapy; E03.9 Hypothyroidism, unspecified
CPT/HCPCS: 36415; 71046; 80048; 85025; 85610; 85730; 93454; 94640; 99152; 99153; 99221; C1894; Q9967; C1769; G0378